=== PATIENT | male | born 1945 | race Caucasian/White ===

== ENCOUNTER 2017-01-25 21:39 | Inpatient (IN) | payer MEDICARE ==
[~2017-01-25] VITALS: Ht 185.4 cm; Wt 78.0 kg
[2017-01-25 22:05] LABS: BASO # 0.1 x10^3/uL (0.0-0.2); BASO % 1 % (0-3); EOS % 1 % (0-3); HEMATOCRIT 49.9 % (39.0-53.0); HEMOGLOBIN 17.1 g/dL (13.0-17.5); LYMPH # 6.6 x10^3/uL (1.0-4.8); LYMPH % 66 % (24-48); MEAN CORPUSCULAR HEMOGLOBIN 35 pg (25-35); MEAN CORPUSCULAR HGB CONC 34 g/dL (31-37); MEAN CORPUSCULAR VOLUME 102 fL (79-100); MONO % 10 % (0-9); NEUT % 23 % (31-73); PLATELET COUNT 157 x10^3/uL (140-400); RED BLOOD COUNT 4.89 x10^6/uL (4.30-5.70); RED CELL DISTRIBUTION WIDTH 14.7 % (11.5-14.5)
[2017-01-25 22:16] LABS: CALCIUM 9.4 mg/dL (8.5-10.1); GFR 73.7; POTASSIUM 4.4 mmol/L (3.5-5.1)
[2017-01-25 22:22] LABS: ALBUMIN 3.6 g/dL (3.4-5.0); ALBUMIN/GLOBULIN RATIO 1.1 (1.0-1.7); TOTAL BILIRUBIN 0.4 mg/dL (0.2-1.0)
[2017-01-25] MEDS ORDERED: IV NORMAL SALINE 1000ML BAG 1,000 ML IV SCH (22:30)
[2017-01-25] MEDS ORDERED: FENTANYL PF 100 MCG/2 ML VIAL. IV ONE (22:30)
[2017-01-25] MEDS ORDERED: ONDANSETRON PF 4 MG/2 ML VIAL. IV ONE (22:30)
[2017-01-25] MEDS: FENTANYL PF 100 MCG/2 ML VIAL. IV PRN (23:29)
[2017-01-25] MEDS ORDERED: CONTRAST GIVEN MC PRN (23:45)
[2017-01-26] VITALS (21 sets, daily range): BP systolic 81–136; BP diastolic 59–87
[2017-01-26] MEDS ORDERED: IOHEXOL 300 MG/ML 75 ML VIAL IV ONE
[2017-01-26] MEDS: FENTANYL PF 100 MCG/2 ML VIAL. IV PRN ×2 (00:08→00:50)
--- NOTE | 2017-01-26 00:14 | PHYS DOC ---
Past Medical History Past Medical History: Other Additional Past Medical Histor: teri Past Surgical History: No Surgical History Alcohol Use: Occasionally Drug Use: None Adult General Chief Complaint Chief Complaint: ABDOMINAL PAIN HPI HPI Patient is a 71 year old male who presents to the ED complaining of abdominal pain and vomiting which started about one hour prior to arrival. The patient was feeling well, he states he ate too much, and then developed sudden onset of severe abdominal pain with intractable vomiting. The patient has a history of Crohn's disease and believes he had similar episodes with a bowel obstruction along time ago. He states he did not have surgery for the bowel obstruction, it resolved itself. He has had surgery for abdominal wall hernias 3 but has not had bowel resection. His Crohn's disease has been well-controlled with Remicade infusions every 8 weeks. His GI doctor is Roldan Mclean at [facility]. Patient was well prior to the acute onset of his abdominal pain and vomiting. PCP none, he has always seen Dr. Mclean, but he does have an appointment with a new PCP in March. Patient states he was recently treated for pneumonia. He does smoke cigarettes. He has no history of COPD or emphysema or other lung problems. No other chronic medical problems. Review of Systems Review of Systems Constitutional: Denies fever or chills [] Eyes: Denies change in visual acuity, redness, or eye pain [] HENT: Denies nasal congestion or sore throat [] Respiratory: Denies cough or shortness of breath [] Cardiovascular: Denies chest pain GI: As in history of present illness : Denies dysuria or hematuria [] Musculoskeletal: Denies back pain or joint pain [] Integument: Denies rash or skin lesions [] Neurologic: Denies headache, focal weakness or sensory changes [] Current Medications Current Medications Current Medications Medications (Trade) Dose Ordered Sig/Ofelia Start Time Stop Time Status Last Admin Dose Admin Fentanyl Citrate (Fentanyl 2ml Vial) 100 mcg 1X ONCE 01/25/17 22:30 01/25/17 22:31 DC 01/25/17 22:12 100 MCG Info (Do NOT chart on this entry -- for MONITORING) 1 each PRN DAILY PRN 01/25/17 23:45 01/27/17 23:44 Iohexol (Omnipaque 300 Mg/ml) 75 ml 1X ONCE 01/26/17 00:00 01/26/17 00:01 DC 01/25/17 23:55 75 ML Ondansetron HCl (Zofran) 4 mg 1X ONCE 01/25/17 22:30 01/25/17 22:31 DC 01/25/17 22:12 4 MG Sodium Chloride (Iv Sodium Chloride 0.9% 1000ml Bag) 1,000 ml @ 100 mls/hr Q10H 01/25/17 22:30 01/26/17 08:29 01/25/17 22:11 100 MLS/HR Allergies Allergies Allergies Coded Allergies Type Severity Reaction Last Updated Verified No Known Drug Allergies 01/25/17 No Physical Exam Physical Exam Constitutional: Well developed, well nourished, actively vomiting, diaphoretic, not able to sit down on the cart, appears very uncomfortable, appears somewhat agitated HENT: Normocephalic, atraumatic, bilateral external ears normal, oropharynx moist, nose normal. [] Eyes: conjunctiva normal, no discharge. [] Neck: Normal range of motion, no stridor. [] Cardiovascular:Heart rate regular rhythm, no murmur [] Lungs & Thorax: Bilateral breath sounds clear to auscultation [] Abdomen: Bowel sounds quiet to absent. Mildly distended. Increased tympany especially on the left. Diffusely tender to palpation although mildly. No mass, no pulsatile mass. No bruit. Skin: Warm, dry, no erythema, no rash. [] Extremities: No tenderness, no cyanosis, no clubbing, ROM intact, no edema. [] Neurologic: Alert and oriented X 3, normal motor function, normal sensory function, no focal deficits noted. [] Current Patient Data Vital Signs Vital Signs Date Time Temp Pulse Resp B/P Pulse Ox O2 Delivery O2 Flow Rate FiO2 01/26/17 00:08 22 92 Nasal Cannula 3.5 01/25/17 22:41 124 172/100 01/25/17 21:44 97 97.0 Lab Values Laboratory Tests Test 01/25/17 21:49 White Blood Count 10.0x10^3/uL (4.0-11.0) Red Blood Count 4.89x10^6/uL (4.30-5.70) Hemoglobin 17.1g/dL (13.0-17.5) Hematocrit 49.9% (39.0-53.0) Mean Corpuscular Volume 102fL (79-100) H Mean Corpuscular Hemoglobin 35pg (25-35) Mean Corpuscular Hemoglobin Concent 34g/dL (31-37) Red Cell Distribution Width 14.7% (11.5-14.5) H Platelet Count 157x10^3/uL (140-400) Neutrophils (%) (Auto) 23% (31-73) L Lymphocytes (%) (Auto) 66% (24-48) H Monocytes (%) (Auto) 10% (0-9) H Eosinophils (%) (Auto) 1% (0-3) Basophils (%) (Auto) 1% (0-3) Neutrophils # (Auto) 2.3x10^3uL (1.8-7.7) Lymphocytes # (Auto) 6.6x10^3/uL (1.0-4.8) H Monocytes # (Auto) 1.0x10^3/uL (0.0-1.1) Eosinophils # (Auto) 0.1x10^3/uL (0.0-0.7) Basophils # (Auto) 0.1x10^3/uL (0.0-0.2) Sodium Level 145mmol/L (136-145) Potassium Level 4.4mmol/L (3.5-5.1) Chloride Level 107mmol/L (98-107) Carbon Dioxide Level 25mmol/L (21-32) Anion Gap 13 (6-14) Blood Urea Nitrogen 21mg/dL (8-26) Creatinine 1.0mg/dL (0.7-1.3) Estimated GFR (Cockcroft-Gault) 73.7 BUN/Creatinine Ratio 21 (6-20) H Glucose Level 136mg/dL (70-99) H Calcium Level 9.4mg/dL (8.5-10.1) Total Bilirubin 0.4mg/dL (0.2-1.0) Aspartate Amino Transferase (AST) 32U/L (15-37) Alanine Aminotransferase (ALT) 30U/L (16-63) Alkaline Phosphatase 73U/L (46-116) Total Protein 7.0g/dL (6.4-8.2) Albumin 3.6g/dL (3.4-5.0) Albumin/Globulin Ratio 1.1 (1.0-1.7) Lipase 154U/L (73-393) Laboratory Tests 01/25/17 21:49 Laboratory Tests 01/25/17 21:49 EKG EKG 12-lead EKG read by me. Irregular rhythm, possible multifocal atrial tachycardia. Heart rate 126. There are no acute ST or T wave changes indicative of ischemia or infarction. No STEMI. 2[] Radiology/Procedures Radiology/Procedures One view portable chest x-ray read by me. There appears to be free air under the diaphragms bilaterally. Right lung atelectasis. No acute infiltrate. No effusions. CT scan of the abdomen and pelvis with IV contrast read by the radiologist. Free air and free fluid in the abdomen and pelvis. Thickened small intestinal wall with air around some of the loops of small bowel in the mid abdomen consistent with bowel perforation. I discussed this with Dr. Felder, the radiologist. Course & Med Decision Making Course & Med Decision Making Pertinent Labs and Imaging studies reviewed. (See chart for details) 71-year-old man with a history of Crohn's disease presents with acute onset of abdominal pain and vomiting one hour prior to arrival. Patient believes his symptoms are similar to a bowel obstruction from his past experience. Patient was initially barely able to cooperate with evaluation due to his pain, discomfort, and agitation. We were able to get an IV started and he had some IV fentanyl and Zofran, which did result in him being much more comfortable and was able to tolerate CT scan. His O2 sats on room air were in the low 90s initially, after IV fentanyl went down to the upper 80s, he was placed on oxygen. I did talk to the patient about this and he does not have a diagnosis of COPD or emphysema although he has been a lifelong smoker. He also states he recently was diagnosed with pneumonia and treated for that, I believe possibly he does have some undiagnosed COPD and has a recent history of pneumonia which may explain his hypoxia. Portable chest x-ray read by me does show free air under the diaphragms, no acute cardiopulmonary findings. The patient was given a 1 L bolus IV normal saline for tachycardia, he was given IV fentanyl with good improvement of his pain. CT scan of the abdomen and pelvis with IV contrast was done as soon as the patient was able to tolerate laying still on the CT scanner. I discussed the CT scan reading with Dr. Felder, radiology. There is free air and free fluid in the abdomen and pelvis, changes of Crohn's disease in the small intestine, she believes the site of perforation is likely the small intestine, there is no obstruction or volvulus noted. I discussed the case with the patient and his . I advised them of the finding of the perforation and advised that he will need IV antibiotics and general surgery consultation. The patient's initial request was to be transferred to [facility] since his GI specialist, Dr. Roldan Mclean, is there, however I do not believe the patient is medically stable for transfer. I discussed with the patient that if we were to transfer him, there would be a delay while an accepting physician and surgeon were located, a delay for ambulance to come here and take him there, and likely a delay after arrival before he can go to the operating room. For this reason, I strongly advised against attempting to transfer the patient even though I do understand his desire for continuity of care with his GI specialist. Patient understands the circumstances and is agreeable to staying here at [place]. I discussed the case with Dr. Garcia, general surgeon taxation agent. He will come see the patient. I started some IV Zosyn. I discussed the case with Dr. Jo, [facility] medicine, who will admit the patient. I wrote bridge orders. [] Dragon Disclaimer Dragon Disclaimer This electronic medical record was generated, in whole or in part, using a voice recognition dictation system. Departure Departure Impression: Primary Impression: Perforated abdominal viscus Disposition: ADMITTED INPATIENT Admitting Physician: Other Condition: GUARDED Referrals: NO PCP (PCP) MIKAYLA DC MD Jan 26, 2017 00:14
--- NOTE | 2017-01-26 00:35 | RAD ---
CT abdomen and pelvis with contrast: Reason for examination: Abdominal pain with vomiting. History of Crohn's disease. Helical images were obtained through the abdomen and pelvis with intravenous administration of 75 cc Omnipaque 300. Reconstruction was performed in sagittal and coronal planes. The lung bases are clear. The heart size is normal with no pericardial effusion evident. There does appear to be free air present in the abdomen. There is also some free fluid present around the liver, in the right caudally bladder and in the pelvis. Liver shows no focal abnormalities. No abnormalities seen in the gallbladder, pancreas, spleen or adrenal glands. The abdominal aorta and inferior vena cava show no acute abnormalities but there is arteriosclerotic vascular calcification present. The kidneys show a small hypodense lesion posteriorly at the midpole. There is some perinephric fluid suggested bilaterally. No hydronephrosis or renal calculi are identified. The intestinal tract shows no abnormally dilated bowel. There is no evidence of diverticulosis or diverticulitis. There is free air adjacent to loops of small bowel in the mid abdomen. There also appears to be some thickening of the small intestinal wall which may reflect changes of Crohn's disease. No abnormalities seen in the bladder. Prostate gland shows calcifications. Seminal vesicles are symmetric. There are some degenerative changes in the spine which are most prominent at the L5-S1 disc level. No acute bony abnormalities are seen. Impression: Free air and free fluid in the abdomen and pelvis. Thickened small intestinal wall which may reflect changes of Crohn's disease. Air around some of the loops of small bowel in the mid abdomen consistent with bowel perforation. Exposure: One or more of the following individualized dose reduction techniques were used for this examination: 1. Automated exposure control. 2. Adjustment of the mA and/or kV according to patient size. 3. Use of iterative reconstruction technique. Electronically signed by: Amna Felder MD (Jan 26, 2017 00:33:43)
[2017-01-26] MEDS ORDERED: IV NORMAL SALINE 1000ML BAG 1,000 ML IV ONE (01:00)
[2017-01-26] MEDS ORDERED: PIPERACILLIN/TAZOBACTAM 3.375 GM in IV NORMAL SALINE 50ML 50 ML IV ONE ×2 (01:00→02:00)
--- NOTE | 2017-01-26 01:08 | ACF ---
Admit Criteria Forms Admit Criteria Forms Admit Criteria Forms ABDOMINAL PAIN Clinical Indications for Admission to Inpatient Care (Place 'X' for any and all applicable criteria): Admission is indicated for ANY ONE of the following(1)(2)(3)(4)(5): [X]I. Inpatient admission required rather than observation care (Also use Abdominal Pain: Observation Care, as appropriate) because of ANY ONE of the following: [ ]a) Severe pain requiring acute inpatient management [X]b) Identification of etiology/finding that requires inpatient care (eg, aortic dissection, free air) [ ]c) Absent bowel sounds with complete ileus(6) [ ]d) Suspected toxic megacolon [ ]e) Severe electrolyte abnormalities requiring inpatient care [ ]f) High fever or infection requiring inpatient admission as indicated by ANY ONE of following(7)(8): [ ] i) Appropriate outpatient or observational care antimicrobial treatment unavailable, not effective, or not feasible [ ] ii) Documented bacteremia [ ] iii) Temperature > 104.9 degrees F (oral) [ ] iv) T >103.1 F (oral) or < 96.8 F(rectal) that does not respond to all emergency treatment measures [ ]g) Signs of intestinal obstruction [B] [ ]h) Hemodynamic instability [ ]i) IV fluid to replace significant ongoing losses (greater than 3 L/m2 per day) (12)(13) [ ]j) Percutaneous or open drainage (eg, abscess, biliary tract ) procedures [ ]k) Parenteral nutrition regimen that must be implemented on inpatient basis [ ]l) Other condition,treatment or monitoring requiring inpatient admission. [ ]II. Peritoneal signs present [ ]III. Surgery needed that cannot be performed on an ambulatory basis. [ ]IV. Evaluation requires patient to not eat or drink for extended period ( eg, more than 24 hours). [ ]V. Contraindications and/or Inappropriate clinical situations for Observational Care in patients with abdominal pain, when ANY ONE of the following is required: [ ]a) Thorough evaluation is required to prevent catastrophic events due to delays in diagnosing (e.g.Mesenteric ischemia) 1,3 [ ]b) Patient with severe pathology or with chronic symptoms unlikely to improve in the ED stay (3) [ ]. General contraindications and/or Inappropriate clinical situations for Observational Care in patients with abdominal pain, when ANY ONE of the following is required: [ ]a) Prediction of prolongation of LOS based on ANY ONE of the following may be considered as a contraindication for observational care 2, 3, 4, 5, 6, 7, 8, 9, 10, 11 [ ]i) Age > 65 yrs. [ ]ii) Patient arriving by ambulance [ ]iii) Patient with high acuity [ ]iv) Patient requiring vital sign monitoring [ ]v) Patient on IV medication [ ]b) Systolic blood pressures 180mmHg 3,12 [ ]c) Patient with altered mental status including delirium and other alteration of consciousness, (3) [ ]d) Patient whose discharge disposition will be to a prison home or rehabilitation home should not be managed in Emergency Department Observation Unit. CMS rule requires 3 days hospital stay before such placement.3,13 [ ]e) Patient with failure to thrive due to broad array of etiologies 3,16,17 [ ]f) Inability to ambulate 3,14 Extended stay beyond goal length of stay may be needed for(2)(3): [ ]a) Persistent abdominal pain with suspected intra-abdominal process [ ]b) Diagnosed condition requiring continued stay (e.g., pancreatitis, complicated diverticulitis) [ ]c) Surgery (e.g., colectomy) The original [employer] content created by [employer] has been revised. The portions of the content which have been revised are identified through the use of italic text or in bold, and [facility] has neither reviewed nor approved the modified material.All other unmodified content is copyright [employer]. Please see references footnoted in the original [employer] edition 2016 VIOLETTA ALLEN Jan 26, 2017 01:08
[2017-01-26] MEDS ORDERED: HYDROMORPHONE 2 MG/ML VIAL. IV ONE ×2 (01:30→02:00)
[2017-01-26] MEDS ORDERED: ONDANSETRON PF 4 MG/2 ML VIAL. ONE (02:00)
[2017-01-26] MEDS ORDERED: PROPOFOL 20 ML IV ONE (02:00)
[2017-01-26] MEDS ORDERED: FENTANYL PF 100 MCG/2 ML VIAL. ONE ×2 (02:00→05:09)
[2017-01-26] MEDS ORDERED: LIDOCAINE 2% 100 MG/5 ML DISP.SYRIN. ONE (02:00)
[2017-01-26] MEDS ORDERED: SUCCINYLCHOLINE 200 MG/10 ML VIAL. ONE (02:00)
[2017-01-26] MEDS ORDERED: DEXAMETHASONE SOD PHOS 20 MG/5 ML VIAL. ONE (02:00)
[2017-01-26] MEDS ORDERED: ROCURONIUM 50 MG/5 ML VIAL. ONE ×2 (02:00→03:36)
[2017-01-26] MEDS ORDERED: IV RINGERS,LACTATED 1000ML 1,000 ML IV SCH (02:09)
[2017-01-26] MEDS ORDERED: LIDOCAINE 1% 1 ML SYRINGE. ID PRN (02:15)
[2017-01-26] MEDS ORDERED: MORPHINE SULFATE 2 MG/ML DISP.SYRIN. IV PRN (02:15)
[2017-01-26] MEDS ORDERED: PROCHLORPERAZINE 10 MG/2 ML VIAL. IV PRN (02:15)
[2017-01-26] MEDS ORDERED: ONDANSETRON PF 4 MG/2 ML VIAL. IV PRN ×2 (02:15→05:45)
[2017-01-26] MEDS ORDERED: FENTANYL PF 100 MCG/2 ML VIAL. IV PRN ×2 (02:15)
[2017-01-26] MEDS ORDERED: HYDROCORTISONE SOD SUCC/PF 100 MG/2 ML VIAL. ONE (02:24)
[2017-01-26] MEDS ORDERED: BACITRACIN 50,000 UNIT in IV NORMAL SALINE 500ML BAG 500 ML IRR ONE (03:00)
[2017-01-26] MEDS ORDERED: SEVOFLURANE > 120 MINUTES. IH ONE ×2 (03:16→04:23)
[2017-01-26] MEDS ORDERED: PHENYLEPHRINE in 0.9% NACL PF 1 MG/10 ML DISP.SYRIN. IV ONE (03:17)
[2017-01-26] MEDS ORDERED: PHENYLEPHRINE 10 MG/ML VIAL. ONE (03:32)
[2017-01-26] MEDS ORDERED: SURGICEL HEMOSTAT 4X8 EACH. ONE (03:38)
[2017-01-26] MEDS ORDERED: GLYCOPYRROLATE 1 MG/5 ML VIAL. ONE (04:23)
[2017-01-26] MEDS ORDERED: NEOSTIGMINE METHYLSULFATE 5 MG/5 ML SYRINGE. ONE (04:23)
[2017-01-26] MEDS ORDERED: ESMOLOL 100 MG/10 ML VIAL. IV ONE (04:28)
[2017-01-26] MEDS: HYDROMORPHONE 2 MG/ML VIAL. IV PRN ×3 (05:38→06:29)
--- NOTE | 2017-01-26 05:42 | PDOC ---
BRIEF OPERATIVE NOTE Date: Jan 26, 2017 Pre-Op Diagnosis perforated viscous Post-Op Diagnosis same 2/2 perforated splenic flexure of colon Procedure Performed Dx l/s, laparotomy with splenic resection, end colostomy, Evans's pouch Surgeon Jose Mid Level Java Developer Siomara HERMANA Anesthesia Type: General Blood Loss 100cc IV Fluid 3400cc Urine Output 400cc Specimens Obtained sigmoid colon Findings large perforation of splenic flexure with fecal/vegetable matter soilage of the abdomen Complications none RON GROSS MD Jan 26, 2017 05:42
[2017-01-26] MEDS ORDERED: PHENOL ORAL SPRAY 177ML BOTTLE. PO PRN (05:45)
[2017-01-26] MEDS ORDERED: 0.9 % SODIUM CHLORIDE 10 ML DISP.SYRIN. IV PRN (05:45)
[2017-01-26] MEDS ORDERED: BENZOCAINE/MENTHOL LOZENGE. PO PRN (05:45)
[2017-01-26] MEDS: POTASSIUM CL 20MEQ-0.45% NACL 1,000 ML IV SCH ×2 (05:58→21:24)
--- NOTE | 2017-01-26 06:12 | EKG ---
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
[2017-01-26] MEDS: HYDROMORPHONE STANDARD PCA 30 ML IV PRN (07:01)
[2017-01-26] MEDS ORDERED: INFL100V IV (07:11)
--- NOTE | 2017-01-26 07:11 | RAD ---
Portable abdomen, 01/26/2017: History: Postop evaluation The lower pelvis was not completely included on this exam. An NG tube has its tip overlying the distal aspect of the stomach. Surgical skin clips overlie the abdomen and pelvis near the midline. There are tubes overlying the pelvis and left flank region compatible surgical drains. The abdominal gas pattern is unremarkable. Aortoiliac calcific plaquing is present. Contrast is present in the urinary tract from a recent CT study. There is no evidence of a retained surgical instrument, needle or radiopaque sponge on this single view.
--- NOTE | 2017-01-26 07:43 | PDOC ---
Infectious Disease Note Vital Sign Vital Signs Vital Signs Date Time Temp Pulse Resp B/P Pulse Ox O2 Delivery O2 Flow Rate FiO2 01/26/17 07:01 20 96 Nasal Cannula 4.0 01/26/17 06:08 126 127/87 01/26/17 05:35 96.9 96.9 Labs Lab Laboratory Tests Test 01/25/17 21:49 White Blood Count 10.0x10^3/uL (4.0-11.0) Red Blood Count 4.89x10^6/uL (4.30-5.70) Hemoglobin 17.1g/dL (13.0-17.5) Hematocrit 49.9% (39.0-53.0) Mean Corpuscular Volume 102fL (79-100) Mean Corpuscular Hemoglobin 35pg (25-35) Mean Corpuscular Hemoglobin Concent 34g/dL (31-37) Red Cell Distribution Width 14.7% (11.5-14.5) Platelet Count 157x10^3/uL (140-400) Neutrophils (%) (Auto) 23% (31-73) Lymphocytes (%) (Auto) 66% (24-48) Monocytes (%) (Auto) 10% (0-9) Eosinophils (%) (Auto) 1% (0-3) Basophils (%) (Auto) 1% (0-3) Neutrophils # (Auto) 2.3x10^3uL (1.8-7.7) Lymphocytes # (Auto) 6.6x10^3/uL (1.0-4.8) Monocytes # (Auto) 1.0x10^3/uL (0.0-1.1) Eosinophils # (Auto) 0.1x10^3/uL (0.0-0.7) Basophils # (Auto) 0.1x10^3/uL (0.0-0.2) Sodium Level 145mmol/L (136-145) Potassium Level 4.4mmol/L (3.5-5.1) Chloride Level 107mmol/L (98-107) Carbon Dioxide Level 25mmol/L (21-32) Anion Gap 13 (6-14) Blood Urea Nitrogen 21mg/dL (8-26) Creatinine 1.0mg/dL (0.7-1.3) Estimated GFR (Cockcroft-Gault) 73.7 BUN/Creatinine Ratio 21 (6-20) Glucose Level 136mg/dL (70-99) Calcium Level 9.4mg/dL (8.5-10.1) Total Bilirubin 0.4mg/dL (0.2-1.0) Aspartate Amino Transf (AST/SGOT) 32U/L (15-37) Alanine Aminotransferase (ALT/SGPT) 30U/L (16-63) Alkaline Phosphatase 73U/L (46-116) Total Protein 7.0g/dL (6.4-8.2) Albumin 3.6g/dL (3.4-5.0) Albumin/Globulin Ratio 1.1 (1.0-1.7) Lipase 154U/L (73-393) Objective Assessment Perforated colon s/p surgery Peritonitis Sepsis with hypotension Crohns disease on remicaid Recent pneumonia smoker Plan Plan of Care d/c flagyl zosyn and vanc supportive care pt/ot KELSIE CANTU MD Jan 26, 2017 07:43
[2017-01-26] MEDS ORDERED: VANCOMYCIN 2 GM in IV NORMAL SALINE 500ML BAG 500 ML IV ONE (08:00)
--- NOTE | 2017-01-26 08:38 | RAD ---
Portable chest, 01/25/2017: History: Hypoxia, abdominal pain The heart is within normal limits in size. There is calcific plaquing of the aorta. The pulmonary vascularity is normal. There is mild linear scarring or atelectasis in both lung bases. There is no evidence of pleural fluid. Free air is present in the abdomen beneath the right hemidiaphragm, as also noted on the current CT study. IMPRESSION: 1. Mild bibasilar linear atelectasis and/or scarring. 2. Pneumoperitoneum
--- NOTE | 2017-01-26 08:49 | PDOC1 ---
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 Rest of hx limited (pt on ELECTRODE CLEANER pump, few hrs post ex- lap). Went to ER, at ER CT scan showed Free air and free fluid in the abdomen and pelvis. Thickened small intestinal wall which may reflect changes of Crohn's disease. Air around some of the loops of small bowel in the mid abdomen consistent with bowel perforation. Pt undwerwent Emergent ex lap with GS this early AM, findings: perforated viscous Post-Op Diagnosis same 2/2 perforated splenic flexure of colon Procedure Performed Dx l/s, laparotomy with splenic resection, end colostomy, Evans's pouch Pt on ELECTRODE CLEANER, NGT, denies hhx diverticulitis he knows of, has had 2 prior Cscopes was told "unremarkable". 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 OR note indicates feces in the peritoneum Past Medical History Cardiovascular: No pertinent hx Pulmonary: No pertinent hx GI: No pertinent hx Heme/Onc: No pertinent hx Hepatobiliary: No pertinent hx Psych: No pertinent hx Rheumatologic: No pertinent hx Infectious disease: No pertinent hx ENT: No pertinent hx Renal/: No pertinent hx Endocrine: No pertinent hx Dermatology: No pertinent hx Past Surgical History Past Surgical History: No pertinent history Family History Family History: No Significant Social History Smoke: No ALCOHOL: none Drugs: None Current Problem List Problem List Problems Medical Problems: (1) Perforated abdominal viscus Status: Acute Problems: Current Medications Current Medications Current Medications Sodium Chloride (Iv Sodium Chloride 0.9% 1000ml Bag) 1,000 ml @ 100 mls/hr Q10H IV Last administered on 01/25/17 22:11; Start 01/25/17 at 22:30; Stop at 08:29; Status DC Ondansetron HCl (Zofran) 4 mg 1X ONCE IV Last administered on 01/25/17 22:12 ; Start 01/25/17 at 22:30; Stop 01/25/17 at 22:31; Status DC Fentanyl Citrate (Fentanyl 2ml Vial) 75 mcg PRN Q15MIN PRN IV PAIN GREATER THAN 3/10 Last administered on 01/26/17 00:50; Start 01/25/17 at 22:00; Stop at 21:59 Fentanyl Citrate (Fentanyl 2ml Vial) 100 mcg 1X ONCE IV Last administered on 22:12; Start 01/25/17 at 22:30; Stop 01/25/17 at 22:31; Status DC Iohexol (Omnipaque 300 Mg/ml) 75 ml 1X ONCE IV Last administered on 01/25/17 23:55; Start 01/26/17 at 00:00; Stop 01/26/17 at 00:01; Status DC Info 1 each 1 each PRN DAILY PRN MC SEE COMMENTS; Start 01/25/17 at 23:45; Stop 01/27/17 at 23:44 Piperacillin Sod/ Tazobactam Sod 3.375 gm/Sodium Chloride 50 ml @ 100 mls/hr 1X ONCE IV Last administered on 01/26/17 00:56; Start 01/26/17 at 01:00; Stop 01/26/17 at 01:29; Status DC Sodium Chloride (Iv Sodium Chloride 0.9% 1000ml Bag) 1,000 ml @ 100 mls/hr 1X ONCE IV Last administered on 01/26/17 00:53; Start 01/26/17 at 01:00; Stop at 10:59 Hydromorphone HCl (Dilaudid) 1 mg 1X ONCE IV Last administered on 01/26/17 01 :33; Start 01/26/17 at 01:30; Stop 01/26/17 at 01:34; Status DC Hydromorphone HCl 1 mg 1 mg 1X ONCE IV ; Start 01/26/17 at 02:00; Stop at 02:01; Status DC Piperacillin Sod/ Tazobactam Sod/ Sodium Chloride (Zosyn/Iv Sodium Chloride 0.9 % 50ml) 50 ml @ 100 mls/hr 1X ONCE IV Last administered on 01/26/17 02:43; Start 01/26/17 at 02:00; Stop 01/26/17 at 02:29; Status DC Dexamethasone Sodium Phosphate (Decadron) 20 mg STK-MED ONCE .ROUTE ; Start at 02:00; Stop 01/26/17 at 02:01; Status DC Ondansetron HCl 4 mg 4 mg STK-MED ONCE .ROUTE ; Start 01/26/17 at 02:00; Stop at 02:01; Status DC Propofol (Diprivan) 20 ml @ As Directed STK-MED ONCE IV ; Start 01/26/17 at 02: 00; Stop 01/26/17 at 02:01; Status DC Lidocaine HCl 100 mg STK-MED ONCE .ROUTE ; Start 01/26/17 at 02:00; Stop at 02:01; Status DC Fentanyl Citrate (Fentanyl 2ml Vial) 100 mcg STK-MED ONCE .ROUTE ; Start at 02:00; Stop 01/26/17 at 02:01; Status DC Succinylcholine Chloride (Anectine) 200 mg STK-MED ONCE .ROUTE ; Start 01/26/17 at 02:00; Stop 01/26/17 at 02:01; Status DC Rocuronium [place] (Zemuron) 50 mg STK-MED ONCE .ROUTE ; Start 01/26/17 at 02:00 ; Stop 01/26/17 at 02:01; Status DC Ondansetron HCl (Zofran) 4 mg PRN Q6HRS PRN IV Nausea; Start 01/26/17 at 02:15 ; Stop 01/27/17 at 02:14 Fentanyl Citrate (Fentanyl 2ml Vial) 25 mcg PRN Q5MIN PRN IV MILD PAIN; Start 01/26/17 at 02:15; Stop 01/27/17 at 02:14 Fentanyl Citrate (Fentanyl 2ml Vial) 50 mcg PRN Q5MIN PRN IV MODERATE PAIN; Start 01/26/17 at 02:15; Stop 01/27/17 at 02:14 Morphine Sulfate 1 mg 1 mg PRN Q10MIN PRN IV SEVERE PAIN; Start 01/26/17 at 02: 15; Stop 01/27/17 at 02:14 Lactated Ringer's (Iv Lactated Ringers) 1,000 ml @ 30 mls/hr Q24H IV ; Start at 02:09; Stop 01/26/17 at 14:08 Lidocaine HCl 2 ml 1X PRN PRN ID IV START; Start 01/26/17 at 02:15; Stop at 02:14 Hydromorphone HCl (Dilaudid) 0.5 mg PRN Q10MIN PRN IV SEV PAIN,Second choice Last administered on 01/26/17 06:29; Start 01/26/17 at 02:15; Stop 01/27/17 at 02:14 Prochlorperazine Edisylate 5 mg 5 mg PACU PRN PRN IV NAUSEA; Start 01/26/17 at 02:15; Stop 01/27/17 at 02:14 Bacitracin/Sodium Chloride (Iv Sodium Chloride 0.9% 500ml Bag) 500 ml @ 500 mls /hr 1X PERIOP ONCE IRR ; Start 01/26/17 at 03:00; Stop 01/26/17 at 03:59; Status DC Hydrocortisone Sodium Succinate (Solu-Cortef) 100 mg STK-MED ONCE .ROUTE ; Start 01/26/17 at 02:24; Stop 01/26/17 at 02:25; Status DC Sevoflurane (Ultane) 90 ml STK-MED ONCE IH ; Start 01/26/17 at 03:16; Stop 01/26 at 03:17; Status DC Phenylephrine HCl 1 mg STK-MED ONCE IV ; Start 01/26/17 at 03:17; Stop 01/26/17 at 03:18; Status DC Phenylephrine HCl (Bhargav-Synephrine Inj) 10 mg STK-MED ONCE .ROUTE ; Start at 03:32; Stop 01/26/17 at 03:33; Status DC Rocuronium [place] (Zemuron) 50 mg STK-MED ONCE .ROUTE ; Start 01/26/17 at 03:36 ; Stop 01/26/17 at 03:37; Status DC Cellulose 1 each STK-MED ONCE .ROUTE Last administered on 01/26/17t 02:47; Start 01/26/17 at 03:38; Stop 01/26/17 at 03:39; Status DC Glycopyrrolate (Robinul) 1 mg STK-MED ONCE .ROUTE ; Start 01/26/17 at 04:23; Stop 01/26/17 at 04:24; Status DC Neostigmine Methylsulfate 5 mg STK-MED ONCE .ROUTE ; Start 01/26/17 at 04:23; Stop 01/26/17 at 04:24; Status DC Sevoflurane (Ultane) 90 ml STK-MED ONCE IH ; Start 01/26/17 at 04:23; Stop 01/26 at 04:24; Status DC Esmolol HCl (Brevibloc) 100 mg STK-MED ONCE IV ; Start 01/26/17 at 04:28; Stop 01/26/17 at 04:29; Status DC Fentanyl Citrate 100 mcg 100 mcg STK-MED ONCE .ROUTE ; Start 01/26/17 at 05:09; Stop 01/26/17 at 05:10; Status DC Metronidazole (FLAGYL 500Mmg PREMIX) 100 ml @ 100 mls/hr Q12HR IV ; Start 01/26 at 09:00; Stop 01/26/17 at 09:00; Status DC Diphenhydramine HCl (Benadryl) 25 mg PRN Q6HRS PRN IV ITCHING; Start 01/26/17 at 05:45 Famotidine (Pepcid) 20 mg BID IVP ; Start 01/26/17 at 09:00 Enoxaparin Sodium (Lovenox 40mg Syringe) 40 mg Q24H SQ ; Start 01/26/17 at 09:00 Sodium Chloride 3 ml 3 ml QSHIFT PRN IV AFTER MEDS AND BLOOD DRAWS; Start 01/26 at 05:45 Potassium Chloride/Sodium Chloride 1,000 ml @ 100 mls/hr Q10H IV Last administered on 01/26/17 05:58; Start 01/26/17 at 06:00 Hydromorphone HCl (Dilaudid Standard ELECTRODE CLEANER) 30 ml @ 0 mls/hr CONT PRN PRN IV PROTOCOL Last administered on 01/26/17 07:01; Start 01/26/17 at 05:45 Hydromorphone HCl (Dilaudid) 1 mg PRN Q1HR PRN IV MODERATE PAIN; Start at 05:45 Ondansetron HCl (Zofran) 4 mg PRN Q6HRS PRN IV NAUESA, 1ST CHOICE; Start at 05:45 Throat Lozenges (Chloraseptic) 1 spray PRN Q2HR PRN PO SORE THROAT; Start 01/26 at 05:45 Throat Lozenges (Cepacol Sore Throat Lozenge) 1 west PRN Q2HRS PRN PO SORE THROAT; Start 01/26/17 at 05:45 Nicotine 1 patch 1 patch DAILY TD ; Start 01/26/17 at 09:00 Piperacillin Sod/ Tazobactam Sod/ Sodium Chloride (Zosyn/Iv Sodium Chloride 0.9 % 50ml) 50 ml @ 100 mls/hr Q6HRS IV ; Start 01/26/17 at 08:00 Vancomycin HCl 1 each 1 each PRN DAILY PRN MC SEE COMMENTS; Start 01/26/17 at 07:45 Vancomycin HCl/ Sodium Chloride (Iv Sodium Chloride 0.9% 500ml Bag) 500 ml @ 250 mls/hr 1X ONCE IV ; Start 01/26/17 at 08:00; Stop 01/26/17 at 09:59 Active Scripts Active Reported Remicade (Infliximab) 100 Mg Vial 100 Mg IV Q8HRS Allergies Allergies: Coded Allergies: No Known Drug Allergies (Unverified , 01/25/17) ROS General: No: Appetite, Chills, Fatigue, Malaise, Night Sweats, Other PSYCHOLOGICAL ROS: No: Anxiety, Behavioral Disorder, Concentration difficultie , Decreased libido, Depression, Disorientation, Hallucinations, Hostility, Irritablity, Memory difficulties, Mood Swings, Obsessive thoughts, Other, Physical abuse, Sexual abuse, Sleep disturbances, Suicidal ideation Eyes: No Blurry vision, No Decreased vision, No Double vision, No Dry eyes, No Excessive tearing, No Eye Pain, No Itchy Eyes, No Loss of vision, No Other, No Photophobia, No Scotomata, No Uses contacts, No Uses glasses HEENT: YES: Other (dry mouth), No: Epistaxis, Heacaches, Hearing change, Nasal congestion, Nasal discharge, Oral lesions, Sinus pain, Sneezing, Snoring, Sore Throat, Tinnitus, Vertigo, Visual Changes, Vocal changes ALLERGY AND IMMUNOLOGY: No: Hives, Insect Bite Sensitivity, Itchy/Watery Eyes, Nasal Congestion, Other, Post Nasal Drip, Seasonal Allergies Hematological and Lymphatic: No: Bleeding Problems, Blood Clots, Blood Transfusions, Brusing, Night Sweats, Other, Pallor, Swollen Lymph Nodes ENDOCRINE: No: Breast Changes, Galactorrhea, Hair Pattern Changes, Hot Flashes , Malaise/lethargy, Mood Swings, Other, Palpitations, Polydipsia/polyuria, Skin Changes, Temperature Intolerance, Unexpected Weight Changes Breast: No New/Changing Breast Lumps, No Nipple changes, No Nipple discharge, No Other Cardiovascular: No Chest Pain, No Edema, No Lt Headedness, No Orthopnea, No Other, No Palpitations, No Paroxysmal Noc. Dyspnea Gastrointestinal: Yes Other (sore) Neurological: No Behavorial Changes, No Bowel/Bladder ControlChng, No Confusion , No Dizziness, No Gait Disturbance, No Headaches, No Impaired Coord/balance, No Memory Loss, No Numbness/Tingling, No Other, No Seizures, No Speech Problems , No Tremors, No Visual Changes, No Weakness Skin: No Acne, No Dry Skin, No Eczema, No Hair Changes, No Lumps, No Mole Changes, No Mottling, No Nail Changes, No Other, No Pruritus, No Rash, No Skin Lesion Changes Physical Exam General: Alert, Oriented X3, Cooperative, No acute distress, Other (sore abd area - post op) HEENT: Atraumatic Lungs: Clear to auscultation, Normal air movement Heart: S1S2, no gallops Cardiovascular: S1 Breasts: Normal, Abnormal mass palpable Abdomen: Soft, Other (vertical mkidlijne incision with dry dressing, colostomy bag on left, 2 indwelling LASHAUN drains) Extremities: No clubbing, No cyanosis, No edema, Normal pulses, No tenderness/ swelling Skin: No rashes, No breakdown, No significant lesion Neuro: Normal gait, Normal speech, Strength at 5/5 X4 ext, Normal tone, Sensation intact, Cranial nerves 3-12 NL, Reflexes 2+ Psych/Mental Status: Mental status NL, Mood NL Vitals Vitals Vital Signs Date Time Temp Pulse Resp B/P Pulse Ox O2 Delivery O2 Flow Rate FiO2 01/26/17 07:01 20 96 Nasal Cannula 4.0 01/26/17 07:00 119 105/75 01/26/17 05:35 96.9 96.9 Labs Labs Laboratory Tests Test 01/25/17 21:49 White Blood Count 10.0x10^3/uL (4.0-11.0) Red Blood Count 4.89x10^6/uL (4.30-5.70) Hemoglobin 17.1g/dL (13.0-17.5) Hematocrit 49.9% (39.0-53.0) Mean Corpuscular Volume 102fL (79-100) Mean Corpuscular Hemoglobin 35pg (25-35) Mean Corpuscular Hemoglobin Concent 34g/dL (31-37) Red Cell Distribution Width 14.7% (11.5-14.5) Platelet Count 157x10^3/uL (140-400) Neutrophils (%) (Auto) 23% (31-73) Lymphocytes (%) (Auto) 66% (24-48) Monocytes (%) (Auto) 10% (0-9) Eosinophils (%) (Auto) 1% (0-3) Basophils (%) (Auto) 1% (0-3) Neutrophils # (Auto) 2.3x10^3uL (1.8-7.7) Lymphocytes # (Auto) 6.6x10^3/uL (1.0-4.8) Monocytes # (Auto) 1.0x10^3/uL (0.0-1.1) Eosinophils # (Auto) 0.1x10^3/uL (0.0-0.7) Basophils # (Auto) 0.1x10^3/uL (0.0-0.2) Sodium Level 145mmol/L (136-145) Potassium Level 4.4mmol/L (3.5-5.1) Chloride Level 107mmol/L (98-107) Carbon Dioxide Level 25mmol/L (21-32) Anion Gap 13 (6-14) Blood Urea Nitrogen 21mg/dL (8-26) Creatinine 1.0mg/dL (0.7-1.3) Estimated GFR (Cockcroft-Gault) 73.7 BUN/Creatinine Ratio 21 (6-20) Glucose Level 136mg/dL (70-99) Calcium Level 9.4mg/dL (8.5-10.1) Total Bilirubin 0.4mg/dL (0.2-1.0) Aspartate Amino Transf (AST/SGOT) 32U/L (15-37) Alanine Aminotransferase (ALT/SGPT) 30U/L (16-63) Alkaline Phosphatase 73U/L (46-116) Total Protein 7.0g/dL (6.4-8.2) Albumin 3.6g/dL (3.4-5.0) Albumin/Globulin Ratio 1.1 (1.0-1.7) Lipase 154U/L (73-393) Laboratory Tests Test 01/25/17 21:49 White Blood Count 10.0x10^3/uL (4.0-11.0) Red Blood Count 4.89x10^6/uL (4.30-5.70) Hemoglobin 17.1g/dL (13.0-17.5) Hematocrit 49.9% (39.0-53.0) Mean Corpuscular Volume 102fL (79-100) Mean Corpuscular Hemoglobin 35pg (25-35) Mean Corpuscular Hemoglobin Concent 34g/dL (31-37) Red Cell Distribution Width 14.7% (11.5-14.5) Platelet Count 157x10^3/uL (140-400) Neutrophils (%) (Auto) 23% (31-73) Lymphocytes (%) (Auto) 66% (24-48) Monocytes (%) (Auto) 10% (0-9) Eosinophils (%) (Auto) 1% (0-3) Basophils (%) (Auto) 1% (0-3) Neutrophils # (Auto) 2.3x10^3uL (1.8-7.7) Lymphocytes # (Auto) 6.6x10^3/uL (1.0-4.8) Monocytes # (Auto) 1.0x10^3/uL (0.0-1.1) Eosinophils # (Auto) 0.1x10^3/uL (0.0-0.7) Basophils # (Auto) 0.1x10^3/uL (0.0-0.2) Sodium Level 145mmol/L (136-145) Potassium Level 4.4mmol/L (3.5-5.1) Chloride Level 107mmol/L (98-107) Carbon Dioxide Level 25mmol/L (21-32) Anion Gap 13 (6-14) Blood Urea Nitrogen 21mg/dL (8-26) Creatinine 1.0mg/dL (0.7-1.3) Estimated GFR (Cockcroft-Gault) 73.7 BUN/Creatinine Ratio 21 (6-20) Glucose Level 136mg/dL (70-99) Calcium Level 9.4mg/dL (8.5-10.1) Total Bilirubin 0.4mg/dL (0.2-1.0) Aspartate Amino Transf (AST/SGOT) 32U/L (15-37) Alanine Aminotransferase (ALT/SGPT) 30U/L (16-63) Alkaline Phosphatase 73U/L (46-116) Total Protein 7.0g/dL (6.4-8.2) Albumin 3.6g/dL (3.4-5.0) Albumin/Globulin Ratio 1.1 (1.0-1.7) Lipase 154U/L (73-393) VTE Prophylaxis Ordered VTE Prophylaxis Devices: Yes VTE Pharmacological Prophylaxi: Yes Assessment/Plan Assessment/Plan perforated viscous perforated splenic flexure of colon s/p Dx l/s, laparotomy with splenic resection, end colostomy, Evans's pouch Acute anemia of blood loss Acute pain post op needing ELECTRODE CLEANER PLAN: COnt ELECTRODE CLEANER Routine post op care Labs in AM ICe chips ok MAintain NPO and NGT Dw pt and CLINICAL RESEARCH DIRECTOR SILAS [place] MD Jan 26, 2017 08:49
--- NOTE | 2017-01-26 08:59 | OP ---
DATE OF SURGERY: 01/26/2017 PREOPERATIVE DIAGNOSIS: Perforated viscus. POSTOPERATIVE DIAGNOSES: Perforated viscus, secondary to splenic flexure of the colon perforation. PROCEDURE: 1. Diagnostic laparoscopy. 2. Laparotomy with resection splenic flexure with end colostomy Evans's pouch. SURGEON: Orion Gross MD NETWORK SECURITY ARCHITECT: FADI Burkett ANESTHESIA: General endotracheal. BLOOD LOSS: 100 mL. INTRAVENOUS FLUIDS: 3400. URINE OUTPUT: 400. INDICATIONS: The patient is a 71-year-old, with acute onset of severe abdominal pain earlier this evening. CT scan showed free air and fluid. He has a history Crohn's disease. He is brought for exploration. OPERATIVE FINDINGS: There was gross contamination of the entire abdomen with stool and vegetable matter (____). There was a large rent in the distal transverse colon/splenic flexure. The stomach, small bowel, and remainder of the colon were without definite pathology. There was some mild wall thickening of the distal ileum without significant creeping fat. Appendix was unremarkable. DESCRIPTION OF PROCEDURE: The patient was brought to the operating suite, given a general endotracheal anesthetic, Wagner catheter placement and drainage, and the abdomen prepped and draped in the usual sterile fashion. A 5-mm incision was made above the umbilicus and a 5-mm Visiport was used to gain access into the abdominal cavity. Pneumoperitoneum established. Camera inserted. We really saw significant gross contamination of the abdominal cavity. This included vegetable matter and stool. In light of this, we proceeded with a laparotomy. Midline incision was made. Abdomen was carefully entered and explored with results as noted above. With the Omni self-retaining retractor for exposure, we ran the small bowel from the ligament of Treitz to the ileocecal valve with no evidence of perforation. The ascending and transverse colon were inspected as were the ascending and sigmoid colon. There was some induration near the splenic flexure; so the left colon was mobilized to the midline by taking down the white line of Toldt avoiding the left ureter and left kidney. The gastrocolic omentum was divided and the distal transverse colon was reflected inferiorly off the spleen. This exposed a large rent in the colon as the source of contamination. The bowel proximal to the process that appeared viable was skeletonized and divided with the CASSANDRA stapler. Similarly, the bowel distal to the process which appeared viable was closed with a contour stapler and the ends marked with long Prolene sutures for future reference. The involved segment was then transected by serially clamping, dividing, and ligating the mesocolon with Vicryl ties. The abdomen was copiously irrigated with 5 liters of normal saline and foreign body material removed. Abdomen checked for adequate hemostasis, and when present and a correct sponge count was obtained, an Aamir 1-cm Davol sump drain was brought through a left lower quadrant stab wound, laid in the left pericolic gutter up to the spleen, secured with silk sutures. A 19-Telugu round Luis Eduardo drain was brought through a right lower quadrant stab wound, left in the true pelvis, secured with a silk stitch. The distal end of the transverse colon was brought out through the left upper quadrant of the abdominal wall for an end colostomy. This was tacked at 12, 3, 6 and 9 to the anterior sheath fascia with 3-0 chromic. When a second sponge count was correct and another check for hemostasis was done, the abdomen was closed in a single layer using looped 0 PDS in running fashion tied in the middle. Skin closed loosely with soraya and Telfa meliton were placed in the subcutaneous space. Sterile dressing applied. The colostomy was matured with 3-0 chromic sutures ____ placed. Postop foreign body film was negative for unexplained foreign body. Sterile dressings applied. The patient was awakened from his anesthetic and taken to the ICU in stable but guarded condition. ORION GROSS MD DR: KAYLYNN/marco JOB#: [id number] / [id number]
[2017-01-26] MEDS ORDERED: METRONIDAZOLE 500mg PREMIX 100 ML IV SCH (09:00)
[2017-01-26] MEDS: PIPERACILLIN/TAZOBACTAM 3.375 GM in IV NORMAL SALINE 50ML 50 ML IV SCH ×4 (09:02→23:40)
[2017-01-26] MEDS: NICOTINE 21MG PATCH. TD SCH (09:03)
[2017-01-26] MEDS: ENOXAPARIN 40 MG/0.4 ML SYRINGE. SQ SCH (09:03)
[2017-01-26] MEDS: FAMOTIDINE 20 MG/2 ML VIAL IVP SCH ×2 (09:03→21:22)
[2017-01-26] MEDS: VANCOMYCIN PER PHARMACY MC PRN (11:08)
--- NOTE | 2017-01-26 14:44 | CONS ---
DATE OF CONSULTATION: 01/26/2017 REQUESTING PHYSICIAN: Dr. Jo. REASON FOR CONSULTATION: Peritonitis. HISTORY OF PRESENT ILLNESS: This is a 71-year-old gentleman with history of Crohn's disease who is on Remicade for the last 2 years who presented with sudden onset of abdominal pain and vomiting. The patient came to the ER and was found to have perforated viscus. The patient was taken to the OR and found to have a colon perforation. The patient underwent laparoscopy with splenic resection and end colostomy with Evans's pouch. The patient had hypotension for a short period of time. The patient is now off vasopressors, has NG tube in place. The patient is having some abdominal pain, but otherwise feeling fine. No more nausea, vomiting or diarrhea. The patient did not have any fever. The patient did not have any symptoms other than just sudden onset. PAST MEDICAL HISTORY: Positive for Crohn's disease. The patient is otherwise healthy. SOCIAL HISTORY: Positive for smoking. No alcohol use or drug use. The patient recently has been treated for pneumonia. ALLERGIES: No known drug allergies. CURRENT MEDICATIONS: Reviewed. The patient received a dose of Zosyn and on Flagyl now. REVIEW OF SYSTEMS: As per HPI. All other systems reviewed is negative. PHYSICAL EXAMINATION: GENERAL: Alert, oriented gentleman, not in distress. VITAL SIGNS: Stable, afebrile. HEENT: NAD. NECK: Supple, no JVP, no lymphadenopathy. LUNGS: Clear. HEART: S1, S2 regular. ABDOMEN: Abdomen has a post-surgical dressing on and ostomy on. EXTREMITIES: No edema or cyanosis. SKIN: Unremarkable. NEUROLOGIC: The patient is neurologically intact. LABORATORY DATA: White count is normal. BUN and creatinine are normal. X-ray and CT reviewed. IMPRESSION: 1. Perforated colon, status post splenic resection and Evans's procedure. 2. Feculent peritonitis. 3. Crohn's disease, on Remicade. 4. Sepsis with transient hypotension. PLAN: Recommend discontinue Flagyl, would initiate Zosyn with a regular dosing, add vancomycin, supportive care, PT/OT and will continue to follow. Thank you very much, Dr. Garcia and Dr. Jo, for giving me the opportunity to participate in this patient's care. KELSIE CANTU MD DR: CYRUS/marco JOB#: [id number] / [id number]
--- NOTE | 2017-01-26 15:27 | PDOC ---
Provider Note Provider Note SURG up to chair adequate pain control continue supportive care RON GROSS MD Jan 26, 2017 15:27
[2017-01-26] MEDS ORDERED: VANCOMYCIN 1.25 GM in IV NORMAL SALINE 250ML 250 ML IV SCH (21:00)
[2017-01-26] MEDS: DIPHENHYDRAMINE 50 MG/ML VIAL IV PRN (21:24)
[2017-01-27] VITALS (23 sets, daily range): BP systolic 81–127; BP diastolic 58–77
[2017-01-27 05:17] LABS: BASO % 0 % (0-3); EOS % 0 % (0-3); HEMATOCRIT 48.6 % (39.0-53.0); LYMPH % 7 % (24-48); MEAN CORPUSCULAR HEMOGLOBIN 35 pg (25-35); MEAN CORPUSCULAR HGB CONC 33 g/dL (31-37); MEAN CORPUSCULAR VOLUME 106 fL (79-100); MONO % 3 % (0-9); NEUT % 90 % (31-73); PLATELET COUNT 115 x10^3/uL (140-400); RED BLOOD COUNT 4.61 x10^6/uL (4.30-5.70)
[2017-01-27 05:36] LABS: CALCIUM 7.8 mg/dL (8.5-10.1); CREATININE 1.6 mg/dL (0.7-1.3); GFR 42.8
[2017-01-27] MEDS: PIPERACILLIN/TAZOBACTAM 3.375 GM in IV NORMAL SALINE 50ML 50 ML IV SCH ×3 (05:44→18:18)
[2017-01-27 07:23] LABS: PLT ESTIMATE DECREASED (ADEQUATE)
[2017-01-27] MEDS: POTASSIUM CL 20MEQ-0.45% NACL 1,000 ML IV SCH (08:00)
--- NOTE | 2017-01-27 08:08 | PDOC ---
Infectious Disease Note Subjective Subjective awake in chair, still NG in place ROS ROS GEN: Denies fevers, chills, sweats HEENT: Denies blurred vision, sore throat CV: Denies chest pain RESP: Denies shortness of air, cough GI: Denies n/v/d NEURO: Denies confusion, dizziness MSK: Denies weakness, joint pain/swelling Vital Sign Vital Signs Vital Signs Date Time Temp Pulse Resp B/P Pulse Ox O2 Delivery O2 Flow Rate FiO2 01/27/17 06:00 122 20 87/71 97 Nasal Cannula 4.0 01/27/17 04:00 96.7 96.7 Physical Exam PHYSICAL EXAM GENERAL: NAD, Alert HEENT: PERRL, OC/OP NECK: Supple, no JVD, no LN LUNGS: Clear HEART: S1S2, no gallop, no murmur ABD: Soft, NT, no organomegaly, no rebound, ostomy in place EXT: No edema, no cyanosis CONFIGURATION ANALYST: Alert, oriented x 3, no focal neurologic deficit SKIN: No rash IV: ok Labs Lab Laboratory Tests Test 01/27/17 04:45 White Blood Count 14.0x10^3/uL (4.0-11.0) Red Blood Count 4.61x10^6/uL (4.30-5.70) Hemoglobin 16.0g/dL (13.0-17.5) Hematocrit 48.6% (39.0-53.0) Mean Corpuscular Volume 106fL (79-100) Mean Corpuscular Hemoglobin 35pg (25-35) Mean Corpuscular Hemoglobin Concent 33g/dL (31-37) Red Cell Distribution Width 15.0% (11.5-14.5) Platelet Count 115x10^3/uL (140-400) Neutrophils (%) (Auto) 90% (31-73) Lymphocytes (%) (Auto) 7% (24-48) Monocytes (%) (Auto) 3% (0-9) Eosinophils (%) (Auto) 0% (0-3) Basophils (%) (Auto) 0% (0-3) Neutrophils # (Auto) 12.6x10^3uL (1.8-7.7) Lymphocytes # (Auto) 1.0x10^3/uL (1.0-4.8) Monocytes # (Auto) 0.4x10^3/uL (0.0-1.1) Eosinophils # (Auto) 0.0x10^3/uL (0.0-0.7) Basophils # (Auto) 0.0x10^3/uL (0.0-0.2) Segmented Neutrophils % 22% (35-66) Band Neutrophils % 47% (0-9) Lymphocytes % 13% (24-48) Monocytes % 6% (0-10) Metamyelocytes % 7% (0-0) Myelocytes % 5% (0-0) Platelet Estimate Decreased (ADEQUATE) Giant Platelets Present Polychromasia Sodium Level 143mmol/L (136-145) Potassium Level 6.0mmol/L (3.5-5.1) Chloride Level 109mmol/L (98-107) Carbon Dioxide Level 25mmol/L (21-32) Anion Gap 9 (6-14) Blood Urea Nitrogen 37mg/dL (8-26) Creatinine 1.6mg/dL (0.7-1.3) Estimated GFR (Cockcroft-Gault) 42.8 Glucose Level 109mg/dL (70-99) Calcium Level 7.8mg/dL (8.5-10.1) Objective Assessment Perforated colon s/p surgery Peritonitis Sepsis with hypotension Crohns disease on remicaid Recent pneumonia smoker Plan Plan of Care zosyn and vanc supportive care pt/ot KELSIE CANTU MD Jan 27, 2017 08:08
[2017-01-27] MEDS: ENOXAPARIN 40 MG/0.4 ML SYRINGE. SQ SCH (08:48)
[2017-01-27] MEDS: NICOTINE 21MG PATCH. TD SCH (08:48)
--- NOTE | 2017-01-27 09:07 | PDOC ---
PROGRESS NOTES Chief Complaint Chief Complaint Bowel perf ASSESSMENT AND PLAN: 1. colonic perforation: s/p emergent resection of splenic flexure with Paiz pouch on 01/[address] Garcia. recovering appropriately 2. Peritonitis: on broad-spectrum Abx 3. Crohn's: on remicade on O/p basis, i.e. immunosuppressed 4. VELVET: worse. IVF, monitor creat and lytes. renal consult 5. Hyperkalemia: severe. stop K in IVF; 1/2 NS. insulin/D5 if persistent. 6. Thrombocytopenia: prob 2/2 inflammation/infection. monitor 7. Anemia, macrocytic: obtain B12/folate levels 8. Leukocytosis: reactive; appears relatively low, considering 35 min CC time Vitals Vitals Vital Signs Date Time Temp Pulse Resp B/P Pulse Ox O2 Delivery O2 Flow Rate FiO2 01/27/17 06:00 122 20 87/71 97 Nasal Cannula 4.0 01/27/17 04:00 96.7 96.7 Physical Exam General: Alert, Oriented X3, Cooperative, No acute distress, Other (sore abd area - post op) Heart: Regular rate Lungs: Clear Abdomen: Soft, Other (midline incision with dry dressing, colostomy bag on left , 2 indwelling LASHAUN drains) Extremities: No clubbing, No cyanosis, No edema, Normal pulses, No tenderness/ swelling Skin: No rashes, No breakdown, No significant lesion Labs LABS Laboratory Tests Test 01/27/17 04:45 White Blood Count 14.0x10^3/uL (4.0-11.0) Red Blood Count 4.61x10^6/uL (4.30-5.70) Hemoglobin 16.0g/dL (13.0-17.5) Hematocrit 48.6% (39.0-53.0) Mean Corpuscular Volume 106fL (79-100) Mean Corpuscular Hemoglobin 35pg (25-35) Mean Corpuscular Hemoglobin Concent 33g/dL (31-37) Red Cell Distribution Width 15.0% (11.5-14.5) Platelet Count 115x10^3/uL (140-400) Neutrophils (%) (Auto) 90% (31-73) Lymphocytes (%) (Auto) 7% (24-48) Monocytes (%) (Auto) 3% (0-9) Eosinophils (%) (Auto) 0% (0-3) Basophils (%) (Auto) 0% (0-3) Neutrophils # (Auto) 12.6x10^3uL (1.8-7.7) Lymphocytes # (Auto) 1.0x10^3/uL (1.0-4.8) Monocytes # (Auto) 0.4x10^3/uL (0.0-1.1) Eosinophils # (Auto) 0.0x10^3/uL (0.0-0.7) Basophils # (Auto) 0.0x10^3/uL (0.0-0.2) Segmented Neutrophils % 22% (35-66) Band Neutrophils % 47% (0-9) Lymphocytes % 13% (24-48) Monocytes % 6% (0-10) Metamyelocytes % 7% (0-0) Myelocytes % 5% (0-0) Platelet Estimate Decreased (ADEQUATE) Giant Platelets Present Polychromasia Sodium Level 143mmol/L (136-145) Potassium Level 6.0mmol/L (3.5-5.1) Chloride Level 109mmol/L (98-107) Carbon Dioxide Level 25mmol/L (21-32) Anion Gap 9 (6-14) Blood Urea Nitrogen 37mg/dL (8-26) Creatinine 1.6mg/dL (0.7-1.3) Estimated GFR (Cockcroft-Gault) 42.8 Glucose Level 109mg/dL (70-99) Calcium Level 7.8mg/dL (8.5-10.1) Review of Systems Review of Systems feels fine. pain controlled. wants to walk. KAYLYNN CONNELL MD Jan 27, 2017 09:06
[2017-01-27] MEDS: VANCOMYCIN PER PHARMACY MC PRN (09:44)
--- NOTE | 2017-01-27 11:10 | PDOC ---
SURGICAL PROGRESS NOTE Subjective up in chair abdomen sore no n/v Vital Signs Vital Signs Date Time Temp Pulse Resp B/P Pulse Ox O2 Delivery O2 Flow Rate FiO2 01/27/17 08:00 Nasal Cannula 4.0 01/27/17 06:00 122 20 87/71 97 01/27/17 04:00 96.7 96.7 I&O Intake and Output 01/27/17 07:00 Intake Total 2332.5 ml Output Total 3250 ml Balance -917.5 ml Intake IV Total 2332.5 ml Output Urine Total 560 ml Gastric Drainage Total 2100 ml Drainage Total 590 ml PATIENT HAS A YANCEY: Yes (critical I&O monitoring ) General: Alert, Oriented X3, Cooperative, No acute distress HEENT: Other (NG in place LIS) Abdomen: Soft, Other (incision c/d/i, no erythema, meliton in place, drain serous , stoma pink) Labs Laboratory Tests Test 01/25/17 21:49 01/27/17 04:45 01/27/17 08:38 White Blood Count 10.0x10^3/uL (4.0-11.0) 14.0x10^3/uL (4.0-11.0) Red Blood Count 4.89x10^6/uL (4.30-5.70) 4.61x10^6/uL (4.30-5.70) Hemoglobin 17.1g/dL (13.0-17.5) 16.0g/dL (13.0-17.5) Hematocrit 49.9% (39.0-53.0) 48.6% (39.0-53.0) Mean Corpuscular Volume 102fL (79-100) 106fL (79-100) Mean Corpuscular Hemoglobin 35pg (25-35) 35pg (25-35) Mean Corpuscular Hemoglobin Concent 34g/dL (31-37) 33g/dL (31-37) Red Cell Distribution Width 14.7% (11.5-14.5) 15.0% (11.5-14.5) Platelet Count 157x10^3/uL (140-400) 115x10^3/uL (140-400) Neutrophils (%) (Auto) 23% (31-73) 90% (31-73) Lymphocytes (%) (Auto) 66% (24-48) 7% (24-48) Monocytes (%) (Auto) 10% (0-9) 3% (0-9) Eosinophils (%) (Auto) 1% (0-3) 0% (0-3) Basophils (%) (Auto) 1% (0-3) 0% (0-3) Neutrophils # (Auto) 2.3x10^3uL (1.8-7.7) 12.6x10^3uL (1.8-7.7) Lymphocytes # (Auto) 6.6x10^3/uL (1.0-4.8) 1.0x10^3/uL (1.0-4.8) Monocytes # (Auto) 1.0x10^3/uL (0.0-1.1) 0.4x10^3/uL (0.0-1.1) Eosinophils # (Auto) 0.1x10^3/uL (0.0-0.7) 0.0x10^3/uL (0.0-0.7) Basophils # (Auto) 0.1x10^3/uL (0.0-0.2) 0.0x10^3/uL (0.0-0.2) Sodium Level 145mmol/L (136-145) 143mmol/L (136-145) Potassium Level 4.4mmol/L (3.5-5.1) 6.0mmol/L (3.5-5.1) Chloride Level 107mmol/L (98-107) 109mmol/L (98-107) Carbon Dioxide Level 25mmol/L (21-32) 25mmol/L (21-32) Anion Gap 13 (6-14) 9 (6-14) Blood Urea Nitrogen 21mg/dL (8-26) 37mg/dL (8-26) Creatinine 1.0mg/dL (0.7-1.3) 1.6mg/dL (0.7-1.3) Estimated GFR (Cockcroft-Gault) 73.7 42.8 BUN/Creatinine Ratio 21 (6-20) Glucose Level 136mg/dL (70-99) 109mg/dL (70-99) Calcium Level 9.4mg/dL (8.5-10.1) 7.8mg/dL (8.5-10.1) Total Bilirubin 0.4mg/dL (0.2-1.0) Aspartate Amino Transf (AST/SGOT) 32U/L (15-37) Alanine Aminotransferase (ALT/SGPT) 30U/L (16-63) Alkaline Phosphatase 73U/L (46-116) Total Protein 7.0g/dL (6.4-8.2) Albumin 3.6g/dL (3.4-5.0) Albumin/Globulin Ratio 1.1 (1.0-1.7) Lipase 154U/L (73-393) Segmented Neutrophils % 22% (35-66) Band Neutrophils % 47% (0-9) Lymphocytes % 13% (24-48) Monocytes % 6% (0-10) Metamyelocytes % 7% (0-0) Myelocytes % 5% (0-0) Platelet Estimate Decreased (ADEQUATE) Giant Platelets Present Polychromasia Vancomycin Level Trough 19.2mcg/mL (10.0-20.0) Vancomycin Last Dose Date 01/27/17 Vancomycin Last Dose Time 0900 Laboratory Tests Test 01/27/17 04:45 01/27/17 08:38 White Blood Count 14.0x10^3/uL (4.0-11.0) Red Blood Count 4.61x10^6/uL (4.30-5.70) Hemoglobin 16.0g/dL (13.0-17.5) Hematocrit 48.6% (39.0-53.0) Mean Corpuscular Volume 106fL (79-100) Mean Corpuscular Hemoglobin 35pg (25-35) Mean Corpuscular Hemoglobin Concent 33g/dL (31-37) Red Cell Distribution Width 15.0% (11.5-14.5) Platelet Count 115x10^3/uL (140-400) Neutrophils (%) (Auto) 90% (31-73) Lymphocytes (%) (Auto) 7% (24-48) Monocytes (%) (Auto) 3% (0-9) Eosinophils (%) (Auto) 0% (0-3) Basophils (%) (Auto) 0% (0-3) Neutrophils # (Auto) 12.6x10^3uL (1.8-7.7) Lymphocytes # (Auto) 1.0x10^3/uL (1.0-4.8) Monocytes # (Auto) 0.4x10^3/uL (0.0-1.1) Eosinophils # (Auto) 0.0x10^3/uL (0.0-0.7) Basophils # (Auto) 0.0x10^3/uL (0.0-0.2) Segmented Neutrophils % 22% (35-66) Band Neutrophils % 47% (0-9) Lymphocytes % 13% (24-48) Monocytes % 6% (0-10) Metamyelocytes % 7% (0-0) Myelocytes % 5% (0-0) Platelet Estimate Decreased (ADEQUATE) Giant Platelets Present Polychromasia Sodium Level 143mmol/L (136-145) Potassium Level 6.0mmol/L (3.5-5.1) Chloride Level 109mmol/L (98-107) Carbon Dioxide Level 25mmol/L (21-32) Anion Gap 9 (6-14) Blood Urea Nitrogen 37mg/dL (8-26) Creatinine 1.6mg/dL (0.7-1.3) Estimated GFR (Cockcroft-Gault) 42.8 Glucose Level 109mg/dL (70-99) Calcium Level 7.8mg/dL (8.5-10.1) Vancomycin Level Trough 19.2mcg/mL (10.0-20.0) Vancomycin Last Dose Date 01/27/17 Vancomycin Last Dose Time 0900 Problem List Problems Medical Problems: (1) Perforated abdominal viscus Status: Acute Assessment/Plan POD#1 Dx l/s, laparotomy with splenic resection, end colostomy, Evans's pouch Cr 1.6, low urine output, K 6 A flutter will consult renal cardiology consult noted continue NG, drains Problems: FERNANDO CEJA APRN Jan 27, 2017 11:10
--- NOTE | 2017-01-27 11:44 | PDOC2 ---
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 [facility] 01/27/17 1144: CARDIAC CONSULT DATE OF CONSULT Date of Consult DATE: 01/27/17 TIME: 11:26 REASON FOR CONSULT Reason for Consult: Atrial flutter REFERRING PHYSICIAN Referring Physician: Dr. Jo SOURCE Source: Chart review, Patient HISTORY OF PRESENT ILLNESS HISTORY OF PRESENT ILLNESS This is a 71 yo male, with a history of Crohn's Dx treated with Remicade, who presented with complaints of abdominal pain. Abdominal CT suggestive of bowel perforation. Was taken emergently for exp. lap and was found to have perforated viscus, secondary to splenic flexure of the colon perforation. Underwent splenic resection with end colostomy with Evans's pouch. Post-operatively, patient noted to be in atrial fibrillation with RVR, which prompted this consult. Reports prior h/o irregular heart rhythm post colonoscopy in 2006. Reports it was "put back in normal rhythm" at [facility]. Denies previous cardioversion. Does not follow with practice nurse. Reporting mild abdominal pain. No palpitations, SOA, dizziness, diaphoresis, CP, or nausea/vomiting. PAST MEDICAL HISTORY Cardiovascular: AFIB, Hyperlipidemia Pulmonary: No pertinent hx CENTRAL NERVOUS SYSTEM: Other (no pertinent hx ) GI: Other (Crohn's Dx) Heme/Onc: No pertinent hx Hepatobiliary: No pertinent hx Psych: No pertinent hx Musculoskeletal: Osteoarthritis Rheumatologic: No pertinent hx Infectious disease: No pertinent hx ENT: No pertinent hx Renal/: Other (kidney stones ) Endocrine: No pertinent hx Dermatology: No pertinent hx PAST SURGICAL HISTORY Past Surgical History: Other (stone removal) FAMILY HISTORY Family History: Cancer SOCIAL HISTORY Smoke: 1 pack per day (1.5 ppd) ALCOHOL: occassional Drugs: Other (h/o cocaine use 25yrs ago) Lives: with Family CURRENT MEDICATIONS CURRENT MEDICATIONS Current Medications Medications (Trade) Dose Ordered Sig/Ofelia Route PRN Reason Start Time Stop Time Status Last Admin Dose Admin Vancomycin HCl/ Sodium Chloride (Iv Sodium Chloride 0.9% 250ml) 250 ml @ 167 mls/hr Q12H IV 01/26/17 21:00 01/27/17 09:36 DC 01/26/17 21:22 ALLERGIES ALLERGIES: Coded Allergies: No Known Drug Allergies (Unverified , 01/25/17) ROS Review of System 14 point ROS conducted with pertinent positives noted above in HPI PHYSICAL EXAM General: Alert, Oriented X3, Cooperative HEENT: Atraumatic, Other (right nare NG ) Lungs: Clear to auscultation, Normal air movement Heart: Normal S1, Normal S2, Other (tele: AFIB/A-flutter rate 135) Abdomen: Other (new colostomy, tenderness ) Extremities: No edema, Normal pulses Skin: No significant lesion, Other Neuro: Normal speech, Sensation intact Psych/Mental Status: Mental status NL, Mood NL MUSCULOSKELETAL: Osteoarthritic changes both hands VITALS VITALS Vital Signs Date Time Temp Pulse Resp B/P Pulse Ox O2 Delivery O2 Flow Rate FiO2 01/27/17 08:00 Nasal Cannula 4.0 01/27/17 06:00 122 20 87/71 97 01/27/17 04:00 96.7 96.7 LABS Lab: Laboratory Tests Test 01/27/17 04:45 01/27/17 08:38 White Blood Count 14.0x10^3/uL (4.0-11.0) Red Blood Count 4.61x10^6/uL (4.30-5.70) Hemoglobin 16.0g/dL (13.0-17.5) Hematocrit 48.6% (39.0-53.0) Mean Corpuscular Volume 106fL (79-100) Mean Corpuscular Hemoglobin 35pg (25-35) Mean Corpuscular Hemoglobin Concent 33g/dL (31-37) Red Cell Distribution Width 15.0% (11.5-14.5) Platelet Count 115x10^3/uL (140-400) Neutrophils (%) (Auto) 90% (31-73) Lymphocytes (%) (Auto) 7% (24-48) Monocytes (%) (Auto) 3% (0-9) Eosinophils (%) (Auto) 0% (0-3) Basophils (%) (Auto) 0% (0-3) Neutrophils # (Auto) 12.6x10^3uL (1.8-7.7) Lymphocytes # (Auto) 1.0x10^3/uL (1.0-4.8) Monocytes # (Auto) 0.4x10^3/uL (0.0-1.1) Eosinophils # (Auto) 0.0x10^3/uL (0.0-0.7) Basophils # (Auto) 0.0x10^3/uL (0.0-0.2) Segmented Neutrophils % 22% (35-66) Band Neutrophils % 47% (0-9) Lymphocytes % 13% (24-48) Monocytes % 6% (0-10) Metamyelocytes % 7% (0-0) Myelocytes % 5% (0-0) Platelet Estimate Decreased (ADEQUATE) Giant Platelets Present Polychromasia Sodium Level 143mmol/L (136-145) Potassium Level 6.0mmol/L (3.5-5.1) Chloride Level 109mmol/L (98-107) Carbon Dioxide Level 25mmol/L (21-32) Anion Gap 9 (6-14) Blood Urea Nitrogen 37mg/dL (8-26) Creatinine 1.6mg/dL (0.7-1.3) Estimated GFR (Cockcroft-Gault) 42.8 Glucose Level 109mg/dL (70-99) Calcium Level 7.8mg/dL (8.5-10.1) Vancomycin Level Trough 19.2mcg/mL (10.0-20.0) Vancomycin Last Dose Date 01/27/17 Vancomycin Last Dose Time 0900 ASSESSMENT/PLAN ASSESSMENT/PLAN 1. Atrial fibrillation with RVR, paroxysmal 2. Perforated viscus, s/p resection with end colostomy 3. Crohn's Dx 4. VELVET 5. Hyperkalemia 6. Tobaccoism Recommendations Cardizem gtt for rate control NPO- on Lovenox- will increase to tx dosing if okay with sx. obtain echocardiogram correct lytes- IV fluids adjusted check TSH Further recommendations pending diagnostics. Problems: KATIE PARK MD 01/27/17 1603: CARDIAC CONSULT ALLERGIES ALLERGIES: Coded Allergies: No Known Drug Allergies (Unverified , 01/25/17) ASSESSMENT/PLAN ASSESSMENT/PLAN Patient seen and examined. Agree with the well-nourished practitioner noted. 71-year-old gentleman admitted for perforated abdominal viscus. Normal cardiac exam. Echocardiogram pending. Currently atrial fibrillation with a rapid ventricular response, expected in the setting of his other comorbidities. Supportive care with Cardizem drip until he is able to take by mouth medications. Can increase anticoagulation if okay from a surgical perspective. Otherwise continue prophylactic dose. We will follow along. Problems: 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 APRN 21, 2017 11:44 KATIE PARK MD Jan 27, 2017 16:03
[2017-01-27] MEDS: DILTIAZEM 125 MG in IV DEXTROSE 5% 100 ML IV PRN ×2 (13:18→23:12)
[2017-01-27] MEDS ORDERED: IV 1/2 NORMAL SALINE 1,000 ML IV ONE (13:30)
--- NOTE | 2017-01-27 16:42 | CARD ---
APPROVED REPORT EXAM: Two-dimensional and M-mode echocardiogram with Doppler and color Doppler. Other Information Quality : AverageHR: 108bpm Rhythm : TachycardiaAtrial- Flutter INDICATION New onset of atrial flutter 2D DIMENSIONS RVDd3.0 (2.9-3.5cm)Left Atrium(2D)3.7 (1.6-4.0cm) IVSd0.8 (0.7-1.1cm)Aortic Root(2D)4.5 (2.0-3.7cm) LVDd4.0 (3.9-5.9cm)LVOT Diameter2.5 (1.8-2.4cm) PWd0.8 (0.7-1.1cm)LVDs3.0 (2.5-4.0cm) FS (%) 25.8 %SV36.5 ml LVEF(%)51.2 (>50%) Aortic Valve AoV Peak [place].86.6cm/sAoV VTI13.8cm AO Peak GR.3.0mmHgLVOT Peak [place].74.2cm/s AO Mean GR.2mmHgAVA (VMAX)4.12cm2 Tricuspid Valve TR P. [id number] Peak Gr.24mmHg LEFT VENTRICLE The left ventricle is normal size. There is normal left ventricular wall thickness. The left ventricu lar systolic function is normal and the ejection fraction is within normal range. The Ejection Fracti on is 50-55%. There is normal LV segmental wall motion. Tissue Doppler imaging reveals moderate left ventricular diastolic dysfunction. RIGHT VENTRICLE The right ventricle is normal size. There is normal right ventricular wall thickness. The right ventr icular systolic function is normal. ATRIA The left atrium is borderline dilated. The right atrium size is normal. The interatrial septum is int act with no evidence for an atrial septal defect or patent foramen ovale as noted on 2-D or Doppler i maging. AORTIC VALVE The aortic valve is not well visualized but does open well. The aortic valve is mildly sclerotic. Dop pler and Color Flow revealed no significant aortic regurgitation. There is no significant aortic valv ular stenosis. MITRAL VALVE The mitral valve leaflets are thickened. There is no evidence of mitral valve prolapse. There is no m itral valve stenosis. Doppler and Color Flow revealed no mitral valve regurgitation noted. TRICUSPID VALVE The tricuspid valve is normal in structure and function. Doppler and Color Flow revealed trace tricus pid regurgitation. The pulmonary artery systolic pressure is estimated at 27 mmHg. There is no pulmon astrid hypertension. PULMONIC VALVE Doppler and Color Flow revealed no pulmonic valvular regurgitation. There is no pulmonic valvular michelle nosis. GREAT VESSELS The aortic root is mildly enlarged. The ascending aorta is normal in size. The IVC was not visualized . PERICARDIAL EFFUSION There is no evidence of significant pericardial effusion. Critical Notification Critical Value: No <Conclusion> The left ventricular systolic function is normal and the ejection fraction is within normal range. Th e Ejection Fraction is 50-55%. There is normal LV segmental wall motion. Tissue Doppler imaging reveals moderate left ventricular diastolic dysfunction.
--- NOTE | 2017-01-27 17:44 | PDOC2 ---
CONSULT Date of Consult Date of Consult DATE: 01/27/17 TIME: 17:37 Reason for Consult Reason for Consult: Yunier/ ^ K Referring Physician Referring Physician: Dr Jo Identification/Chief Complaint Chief Complaint ABd pain Problems: Source Source: Chart review, Patient History of Present Illness Reason for Visit: as dictated Past Medical History Cardiovascular: AFIB, Hyperlipidemia Pulmonary: No pertinent hx CENTRAL NERVOUS SYSTEM: Other (no pertinent hx ) GI: Other (Crohn's Dx) Heme/Onc: No pertinent hx Hepatobiliary: No pertinent hx Psych: No pertinent hx Musculoskeletal: Osteoarthritis Rheumatologic: No pertinent hx Infectious disease: No pertinent hx ENT: No pertinent hx Renal/: Other (kidney stones ) Endocrine: No pertinent hx Dermatology: No pertinent hx Past Surgical History Past Surgical History: Other (stone removal) Family History Family History: Cancer Social History 1 pack per day (1.5 ppd) ALCOHOL: occassional Drugs: Other (h/o cocaine use 25yrs ago) Lives: with Family Current Problem List Problem List Problems Medical Problems: (1) Perforated abdominal viscus Status: Acute Current Medications Current Medications Current Medications Sodium Chloride (Iv Sodium Chloride 0.9% 1000ml Bag) 1,000 ml @ 100 mls/hr Q10H IV Last administered on 01/25/17 22:11; Start 01/25/17 at 22:30; Stop at 08:29; Status DC Ondansetron HCl (Zofran) 4 mg 1X ONCE IV Last administered on 01/25/17 22:12 ; Start 01/25/17 at 22:30; Stop 01/25/17 at 22:31; Status DC Fentanyl Citrate (Fentanyl 2ml Vial) 75 mcg PRN Q15MIN PRN IV PAIN GREATER THAN 3/10 Last administered on 01/26/17 00:50; Start 01/25/17 at 22:00; Stop at 21:59; Status DC Fentanyl Citrate (Fentanyl 2ml Vial) 100 mcg 1X ONCE IV Last administered on 22:12; Start 01/25/17 at 22:30; Stop 01/25/17 at 22:31; Status DC Iohexol (Omnipaque 300 Mg/ml) 75 ml 1X ONCE IV Last administered on 01/25/17 23:55; Start 01/26/17 at 00:00; Stop 01/26/17 at 00:01; Status DC Info 1 each 1 each PRN DAILY PRN MC SEE COMMENTS; Start 01/25/17 at 23:45; Stop 01/27/17 at 23:44 Piperacillin Sod/ Tazobactam Sod 3.375 gm/Sodium Chloride 50 ml @ 100 mls/hr 1X ONCE IV Last administered on 01/26/17 00:56; Start 01/26/17 at 01:00; Stop 01/26/17 at 01:29; Status DC Sodium Chloride (Iv Sodium Chloride 0.9% 1000ml Bag) 1,000 ml @ 100 mls/hr 1X ONCE IV Last administered on 01/26/17 00:53; Start 01/26/17 at 01:00; Stop at 10:59; Status DC Hydromorphone HCl (Dilaudid) 1 mg 1X ONCE IV Last administered on 01/26/17 01 :33; Start 01/26/17 at 01:30; Stop 01/26/17 at 01:34; Status DC Hydromorphone HCl 1 mg 1 mg 1X ONCE IV ; Start 01/26/17 at 02:00; Stop at 02:01; Status DC Piperacillin Sod/ Tazobactam Sod/ Sodium Chloride (Zosyn/Iv Sodium Chloride 0.9 % 50ml) 50 ml @ 100 mls/hr 1X ONCE IV Last administered on 01/26/17 02:43; Start 01/26/17 at 02:00; Stop 01/26/17 at 02:29; Status DC Dexamethasone Sodium Phosphate (Decadron) 20 mg STK-MED ONCE .ROUTE ; Start at 02:00; Stop 01/26/17 at 02:01; Status DC Ondansetron HCl 4 mg 4 mg STK-MED ONCE .ROUTE ; Start 01/26/17 at 02:00; Stop at 02:01; Status DC Propofol (Diprivan) 20 ml @ As Directed STK-MED ONCE IV ; Start 01/26/17 at 02: 00; Stop 01/26/17 at 02:01; Status DC Lidocaine HCl 100 mg STK-MED ONCE .ROUTE ; Start 01/26/17 at 02:00; Stop at 02:01; Status DC Fentanyl Citrate (Fentanyl 2ml Vial) 100 mcg STK-MED ONCE .ROUTE ; Start at 02:00; Stop 01/26/17 at 02:01; Status DC Succinylcholine Chloride (Anectine) 200 mg STK-MED ONCE .ROUTE ; Start 01/26/17 at 02:00; Stop 01/26/17 at 02:01; Status DC Rocuronium [place] (Zemuron) 50 mg STK-MED ONCE .ROUTE ; Start 01/26/17 at 02:00 ; Stop 01/26/17 at 02:01; Status DC Ondansetron HCl (Zofran) 4 mg PRN Q6HRS PRN IV Nausea; Start 01/26/17 at 02:15 ; Stop 01/27/17 at 02:14; Status DC Fentanyl Citrate (Fentanyl 2ml Vial) 25 mcg PRN Q5MIN PRN IV MILD PAIN; Start 01/26/17 at 02:15; Stop 01/27/17 at 02:14; Status DC Fentanyl Citrate (Fentanyl 2ml Vial) 50 mcg PRN Q5MIN PRN IV MODERATE PAIN; Start 01/26/17 at 02:15; Stop 01/27/17 at 02:14; Status DC Morphine Sulfate 1 mg 1 mg PRN Q10MIN PRN IV SEVERE PAIN; Start 01/26/17 at 02: 15; Stop 01/27/17 at 02:14; Status DC Lactated Ringer's (Iv Lactated Ringers) 1,000 ml @ 30 mls/hr Q24H IV ; Start at 02:09; Stop 01/26/17 at 14:08; Status DC Lidocaine HCl 2 ml 1X PRN PRN ID IV START; Start 01/26/17 at 02:15; Stop at 02:14; Status DC Hydromorphone HCl (Dilaudid) 0.5 mg PRN Q10MIN PRN IV SEV PAIN,Second choice Last administered on 01/26/17t 06:29; Start 01/26/17 at 02:15; Stop 01/27/17 at 02:14; Status DC Prochlorperazine Edisylate 5 mg 5 mg PACU PRN PRN IV NAUSEA; Start 01/26/17 at 02:15; Stop 01/27/17 at 02:14; Status DC Bacitracin/Sodium Chloride (Iv Sodium Chloride 0.9% 500ml Bag) 500 ml @ 500 mls /hr 1X PERIOP ONCE IRR ; Start 01/26/17 at 03:00; Stop 01/26/17 at 03:59; Status DC Hydrocortisone Sodium Succinate (Solu-Cortef) 100 mg STK-MED ONCE .ROUTE ; Start 01/26/17 at 02:24; Stop 01/26/17 at 02:25; Status DC Sevoflurane (Ultane) 90 ml STK-MED ONCE IH ; Start 01/26/17 at 03:16; Stop 01/26 at 03:17; Status DC Phenylephrine HCl 1 mg STK-MED ONCE IV ; Start 01/26/17 at 03:17; Stop 01/26/17 at 03:18; Status DC Phenylephrine HCl (Bhargav-Synephrine Inj) 10 mg STK-MED ONCE .ROUTE ; Start at 03:32; Stop 01/26/17 at 03:33; Status DC Rocuronium [place] (Zemuron) 50 mg STK-MED ONCE .ROUTE ; Start 01/26/17 at 03:36 ; Stop 01/26/17 at 03:37; Status DC Cellulose 1 each STK-MED ONCE .ROUTE Last administered on 01/26/17t 02:47; Start 01/26/17 at 03:38; Stop 01/26/17 at 03:39; Status DC Glycopyrrolate (Robinul) 1 mg STK-MED ONCE .ROUTE ; Start 01/26/17 at 04:23; Stop 01/26/17 at 04:24; Status DC Neostigmine Methylsulfate 5 mg STK-MED ONCE .ROUTE ; Start 01/26/17 at 04:23; Stop 01/26/17 at 04:24; Status DC Sevoflurane (Ultane) 90 ml STK-MED ONCE IH ; Start 01/26/17 at 04:23; Stop 01/26 at 04:24; Status DC Esmolol HCl (Brevibloc) 100 mg STK-MED ONCE IV ; Start 01/26/17 at 04:28; Stop 01/26/17 at 04:29; Status DC Fentanyl Citrate 100 mcg 100 mcg STK-MED ONCE .ROUTE ; Start 01/26/17 at 05:09; Stop 01/26/17 at 05:10; Status DC Metronidazole (FLAGYL 500Mmg PREMIX) 100 ml @ 100 mls/hr Q12HR IV ; Start 01/26 at 09:00; Stop 01/26/17 at 09:00; Status DC Diphenhydramine HCl (Benadryl) 25 mg PRN Q6HRS PRN IV ITCHING Last administered on 01/26/17 21:24; Start 01/26/17 at 05:45 Famotidine (Pepcid) 20 mg BID IVP Last administered on 01/26/17 21:22; Start 01/26/17 at 09:00; Stop 01/27/17 at 08:10; Status DC Enoxaparin Sodium (Lovenox 40mg Syringe) 40 mg Q24H SQ Last administered on 08:48; Start 01/26/17 at 09:00; Stop 01/27/17 at 15:59; Status DC Sodium Chloride 3 ml 3 ml QSHIFT PRN IV AFTER MEDS AND BLOOD DRAWS; Start 01/26 at 05:45 Potassium Chloride/Sodium Chloride 1,000 ml @ 100 mls/hr Q10H IV Last administered on 01/26/17 21:24; Start 01/26/17 at 06:00; Stop 01/27/17 at 13:26 ; Status DC Hydromorphone HCl (Dilaudid Standard [employer]) 30 ml @ 0 mls/hr CONT PRN PRN IV PROTOCOL Last administered on 01/26/17 07:01; Start 01/26/17 at 05:45 Hydromorphone HCl (Dilaudid) 1 mg PRN Q1HR PRN IV MODERATE PAIN; Start at 05:45 Ondansetron HCl (Zofran) 4 mg PRN Q6HRS PRN IV NAUESA, 1ST CHOICE; Start at 05:45 Throat Lozenges (Chloraseptic) 1 spray PRN Q2HR PRN PO SORE THROAT; Start 01/26 at 05:45 Throat Lozenges (Cepacol Sore Throat Lozenge) 1 west PRN Q2HRS PRN PO SORE THROAT; Start 01/26/17 at 05:45 Nicotine 1 patch 1 patch DAILY TD Last administered on 01/27/17 08:48; Start 01/26/17 at 09:00 Piperacillin Sod/ Tazobactam Sod/ Sodium Chloride (Zosyn/Iv Sodium Chloride 0.9 % 50ml) 50 ml @ 100 mls/hr Q6HRS IV Last administered on 01/27/17 13:17; Start 01/26/17 at 08:00 Vancomycin HCl 1 each 1 each PRN DAILY PRN MC SEE COMMENTS Last administered on 01/27/17 09:44; Start 01/26/17 at 07:45 Vancomycin HCl 2 gm/Sodium Chloride 500 ml @ 250 mls/hr 1X ONCE IV Last administered on 01/26/17 09:02; Start 01/26/17 at 08:00; Stop 01/26/17 at 09:59 ; Status DC Vancomycin HCl/ Sodium Chloride (Iv Sodium Chloride 0.9% 250ml) 250 ml @ 167 mls/hr Q12H IV Last administered on 01/26/17 21:22; Start 01/26/17 at 21:00; Stop 01/27/17 at 09:36; Status DC Vancomycin HCl 1 each 1X ONCE MC Last administered on 01/27/17 08:30; Start 01/27/17 at 08:30; Stop 01/27/17 at 08:31; Status DC Famotidine 20 mg 20 mg QHS IVP ; Start 01/27/17 at 21:00 Vancomycin HCl/ Sodium Chloride (Iv Sodium Chloride 0.9% 250ml) 250 ml @ 167 mls/hr Q24H IV ; Start 01/27/17 at 22:00 Vancomycin HCl 1 each 1 each 1X ONCE MC ; Start 01/28/17 at 21:30; Stop at 21:31 Diltiazem HCl 125 mg/Dextrose 125 ml @ 0 mls/hr CONT PRN IV SEE I/O RECORD Last administered on 01/27/17 13:18; Start 01/27/17 at 11:45 Sodium Chloride (Iv Sodium Chloride 0.45%) 1,000 ml @ 100 mls/hr 1X ONCE IV Last administered on 01/27/17 13:30; Start 01/27/17 at 13:30; Stop 01/27/17 at 23:29 Enoxaparin Sodium (Lovenox Per Pharmacy Treatment Dosing) 1 each PRN DAILY PRN MC SEE COMMENTS; Start 01/27/17 at 16:00 Enoxaparin Sodium (Lovenox 80mg Syringe) 75 mg Q12HR SQ ; Start 01/27/17 at 18: 00 Active Scripts Active Reported Remicade (Infliximab) 100 Mg Vial 100 Mg IV Q8HRS Allergies Allergies: Coded Allergies: No Known Drug Allergies (Unverified , 01/25/17) ROS Review of System pt too drowsy currently to answer ROS Qs Physical Exam Physical Exam GEN: Awake, not fully Oriented or Alert per se, In no distress EYES: Vision Unchanged, Conjunctiva Normal EN: No EN Drainage, Mucous Membranes dryish NECK: no JVD, min JVP, Supple, no Thyromegaly CVS: S1S2, no Murmur, No Gallop, No Rub,no Edema RESP: no Rales, no Rhonchi,no Acc. Muscle Use GI: BS - ve, NO Bruit, + Tender, Non Distended; Ostomy in place : no CVA tenderness; no Suprapubic Tenderness SKIN: no visible Rashes Breast Exam deferred Mu.Sk: Adequate ROM no Muscle Atrophy Heme: Unable to palpate Obvious LAD no palp Splenomegaly NEURO: appears to have adequate Strength and Tone Cranial Nerves II - XII difficult to assess Psych: ? Depressed vs Sleep deprived and under influence of Opiods. no Active hallucination Vital Signs Vital Signs Date Time Temp Pulse Resp B/P Pulse Ox O2 Delivery O2 Flow Rate FiO2 01/27/17 08:00 Nasal Cannula 4.0 01/27/17 06:00 122 20 87/71 97 01/27/17 04:00 96.7 96.7 Assessment & Plan ARF: Cannot R/o ATn duet o CAN or Hypotension/ Sepsis. Current FLuid and E-lyte status does not necessitate emergent need for Dialysis. Will re-evaluate for Dialysis in am ; No renal ABN noted on CT report. ^K - in the am. Pt was on IVF with KCL, recheck ordered. Oliguria - IVF boluses prn (not sure if hgb is artificially high due to dehydration) anticipate it to drop with IVF, Post-op; HypoTN: ? Hypovolemia vs Sepsis; IVF for now. Current BP meds held. Lowish Dewayne - check CK, Mag etc Labs Labs Laboratory Tests Test 01/25/17 21:49 01/27/17 04:45 01/27/17 08:38 White Blood Count 10.0x10^3/uL (4.0-11.0) 14.0x10^3/uL (4.0-11.0) Red Blood Count 4.89x10^6/uL (4.30-5.70) 4.61x10^6/uL (4.30-5.70) Hemoglobin 17.1g/dL (13.0-17.5) 16.0g/dL (13.0-17.5) Hematocrit 49.9% (39.0-53.0) 48.6% (39.0-53.0) Mean Corpuscular Volume 102fL (79-100) 106fL (79-100) Mean Corpuscular Hemoglobin 35pg (25-35) 35pg (25-35) Mean Corpuscular Hemoglobin Concent 34g/dL (31-37) 33g/dL (31-37) Red Cell Distribution Width 14.7% (11.5-14.5) 15.0% (11.5-14.5) Platelet Count 157x10^3/uL (140-400) 115x10^3/uL (140-400) Neutrophils (%) (Auto) 23% (31-73) 90% (31-73) Lymphocytes (%) (Auto) 66% (24-48) 7% (24-48) Monocytes (%) (Auto) 10% (0-9) 3% (0-9) Eosinophils (%) (Auto) 1% (0-3) 0% (0-3) Basophils (%) (Auto) 1% (0-3) 0% (0-3) Neutrophils # (Auto) 2.3x10^3uL (1.8-7.7) 12.6x10^3uL (1.8-7.7) Lymphocytes # (Auto) 6.6x10^3/uL (1.0-4.8) 1.0x10^3/uL (1.0-4.8) Monocytes # (Auto) 1.0x10^3/uL (0.0-1.1) 0.4x10^3/uL (0.0-1.1) Eosinophils # (Auto) 0.1x10^3/uL (0.0-0.7) 0.0x10^3/uL (0.0-0.7) Basophils # (Auto) 0.1x10^3/uL (0.0-0.2) 0.0x10^3/uL (0.0-0.2) Sodium Level 145mmol/L (136-145) 143mmol/L (136-145) Potassium Level 4.4mmol/L (3.5-5.1) 6.0mmol/L (3.5-5.1) Chloride Level 107mmol/L (98-107) 109mmol/L (98-107) Carbon Dioxide Level 25mmol/L (21-32) 25mmol/L (21-32) Anion Gap 13 (6-14) 9 (6-14) Blood Urea Nitrogen 21mg/dL (8-26) 37mg/dL (8-26) Creatinine 1.0mg/dL (0.7-1.3) 1.6mg/dL (0.7-1.3) Estimated GFR (Cockcroft-Gault) 73.7 42.8 BUN/Creatinine Ratio 21 (6-20) Glucose Level 136mg/dL (70-99) 109mg/dL (70-99) Calcium Level 9.4mg/dL (8.5-10.1) 7.8mg/dL (8.5-10.1) Total Bilirubin 0.4mg/dL (0.2-1.0) Aspartate Amino Transf (AST/SGOT) 32U/L (15-37) Alanine Aminotransferase (ALT/SGPT) 30U/L (16-63) Alkaline Phosphatase 73U/L (46-116) Total Protein 7.0g/dL (6.4-8.2) Albumin 3.6g/dL (3.4-5.0) Albumin/Globulin Ratio 1.1 (1.0-1.7) Lipase 154U/L (73-393) Segmented Neutrophils % 22% (35-66) Band Neutrophils % 47% (0-9) Lymphocytes % 13% (24-48) Monocytes % 6% (0-10) Metamyelocytes % 7% (0-0) Myelocytes % 5% (0-0) Platelet Estimate Decreased (ADEQUATE) Giant Platelets Present Polychromasia Thyroid Stimulating Hormone (TSH) 1.715uIU/mL (0.358-3.74) Vancomycin Level Trough 19.2mcg/mL (10.0-20.0) Vancomycin Last Dose Date 01/27/17 Vancomycin Last Dose Time 0900 Laboratory Tests Test 01/27/17 04:45 01/27/17 08:38 White Blood Count 14.0x10^3/uL (4.0-11.0) Red Blood Count 4.61x10^6/uL (4.30-5.70) Hemoglobin 16.0g/dL (13.0-17.5) Hematocrit 48.6% (39.0-53.0) Mean Corpuscular Volume 106fL (79-100) Mean Corpuscular Hemoglobin 35pg (25-35) Mean Corpuscular Hemoglobin Concent 33g/dL (31-37) Red Cell Distribution Width 15.0% (11.5-14.5) Platelet Count 115x10^3/uL (140-400) Neutrophils (%) (Auto) 90% (31-73) Lymphocytes (%) (Auto) 7% (24-48) Monocytes (%) (Auto) 3% (0-9) Eosinophils (%) (Auto) 0% (0-3) Basophils (%) (Auto) 0% (0-3) Neutrophils # (Auto) 12.6x10^3uL (1.8-7.7) Lymphocytes # (Auto) 1.0x10^3/uL (1.0-4.8) Monocytes # (Auto) 0.4x10^3/uL (0.0-1.1) Eosinophils # (Auto) 0.0x10^3/uL (0.0-0.7) Basophils # (Auto) 0.0x10^3/uL (0.0-0.2) Segmented Neutrophils % 22% (35-66) Band Neutrophils % 47% (0-9) Lymphocytes % 13% (24-48) Monocytes % 6% (0-10) Metamyelocytes % 7% (0-0) Myelocytes % 5% (0-0) Platelet Estimate Decreased (ADEQUATE) Giant Platelets Present Polychromasia Sodium Level 143mmol/L (136-145) Potassium Level 6.0mmol/L (3.5-5.1) Chloride Level 109mmol/L (98-107) Carbon Dioxide Level 25mmol/L (21-32) Anion Gap 9 (6-14) Blood Urea Nitrogen 37mg/dL (8-26) Creatinine 1.6mg/dL (0.7-1.3) Estimated GFR (Cockcroft-Gault) 42.8 Glucose Level 109mg/dL (70-99) Calcium Level 7.8mg/dL (8.5-10.1) Thyroid Stimulating Hormone (TSH) 1.715uIU/mL (0.358-3.74) Vancomycin Level Trough 19.2mcg/mL (10.0-20.0) Vancomycin Last Dose Date 01/27/17 Vancomycin Last Dose Time 0900 Images Images reviewed ZAC CANTU MD Jan 27, 2017 17:44
[2017-01-27] MEDS ORDERED: MAGNESIUM SULFATE 2GM 50 ML IV PRN (17:45)
[2017-01-27] MEDS ORDERED: IV NORMAL SALINE 500ML BAG 500 ML IV PRN (17:45)
[2017-01-27] MEDS: ENOXAPARIN ** NOTE DOSE ** SYRINGE SQ SCH (18:18)
[2017-01-27] MEDS: DIPHENHYDRAMINE 50 MG/ML VIAL IV PRN (18:18)
[2017-01-27 20:22] LABS: BILIRUBIN,URINE NEGATIVE (NEG); GLUCOSE,URINE NEGATIVE (NEG); NITRITE,URINE NEGATIVE (NEG); PROTEIN,URINE 30 mg/dL (NEG-TRACE)
[2017-01-27 20:30] LABS: BACTERIA,URINE 0 /HPF (0-FEW); RBC,URINE OCC /HPF (0-2); SQUAMOUS EPITHELIAL CELL,UR OCC /LPF; WBC,URINE OCC /HPF (0-4)
[2017-01-27] MEDS: FAMOTIDINE 20 MG/2 ML VIAL IVP SCH (21:11)
[2017-01-27] MEDS: VANCOMYCIN 1.25 GM in IV NORMAL SALINE 250ML 250 ML IV SCH (21:23)
[2017-01-28] VITALS (24 sets, daily range): BP systolic 79–116; BP diastolic 55–69
[2017-01-28] MEDS: PIPERACILLIN/TAZOBACTAM 3.375 GM in IV NORMAL SALINE 50ML 50 ML IV SCH ×3 (00:07→13:17)
[2017-01-28] MEDS: HYDROMORPHONE STANDARD PCA 30 ML IV PRN (01:36)
[2017-01-28 06:02] LABS: ALBUMIN 1.9 g/dL (3.4-5.0); CALCIUM 8.5 mg/dL (8.5-10.1); CREATININE 1.1 mg/dL (0.7-1.3); PHOSPHORUS 2.3 mg/dL (2.6-4.7); POTASSIUM 4.1 mmol/L (3.5-5.1)
--- NOTE | 2017-01-28 06:42 | CONS ---
DATE OF CONSULTATION: REASON FOR CONSULTATION: Acute renal failure. HISTORY OF PRESENT ILLNESS: The patient is a 71-year-old gentleman who presented to the ER on the with complaints of abdominal pain and vomiting, which started about an hour prior to his arrival. He is known to have Crohn's disease and underwent CT scan of his abdomen, which showed free air as well as some free fluid in the abdomen and pelvis. He was taken emergently to the OR by Dr. Garcia and was noted to have a colon perforation at the splenic flexure. He is now status post laparotomy with end colostomy, Evans's pouch. Intraop, he appears to have good urine output, but this appears to have been trending downwards. He was on IV fluids with potassium and morning labs showed a potassium of 6.0. We were asked to see him for a bump in his creatinine from 1.0 to 1.6. Calcium was 7.8, down from 9.4. Lipase is normal, no incrementing medications are noted. He is noted to have significant aortoiliac calcific plaquing on x-ray reports. THIS CONSULT WAS NOT CALLED TO ME UNTIL THE PATIENT WAS NOTED TO BE ON MY LIST THIS EVENING INCIDENTALLY. ZAC CANTU MD DR: SIXTO/marco JOB#: [id number] / [id number]
[2017-01-28] MEDS ORDERED: ANTI-COAG MONITOR BY PHARMACY. MC PRN (07:45)
--- NOTE | 2017-01-28 07:59 | PDOC ---
Infectious Disease Note Subjective Subjective awake in chair, still NG in place ROS ROS GEN: Denies fevers, chills, sweats HEENT: Denies blurred vision, sore throat CV: Denies chest pain RESP: Denies shortness of air, cough GI: Denies n/v/d NEURO: Denies confusion, dizziness MSK: Denies weakness, joint pain/swelling Vital Sign Vital Signs Vital Signs Date Time Temp Pulse Resp B/P Pulse Ox O2 Delivery O2 Flow Rate FiO2 01/28/17 07:00 101 28 83/63 98 Room Air 01/27/17 23:59 4.0 01/27/17 23:26 97.4 97.4 Physical Exam PHYSICAL EXAM GENERAL: NAD, Alert HEENT: PERRL, OC/OP NECK: Supple, no JVD, no LN LUNGS: Clear HEART: S1S2, no gallop, no murmur ABD: Soft, NT, no organomegaly, no rebound EXT: No edema, no cyanosis [employer] AGENT: Alert, oriented x 3, no focal neurologic deficit SKIN: No rash IV: ok Labs Lab Laboratory Tests Test 01/27/17 08:38 01/27/17 17:40 01/27/17 20:05 01/28/17 05:25 Vancomycin Level Trough 19.2mcg/mL (10.0-20.0) Vancomycin Last Dose Date 01/27/17 Vancomycin Last Dose Time 0900 Potassium Level 4.5mmol/L (3.5-5.1) 4.1mmol/L (3.5-5.1) Creatine Kinase 108U/L (39-308) Urine Color Yellow Urine Clarity Clear Urine pH 6.0 Urine Specific [place] >=1.030 Urine Protein 30mg/dL (NEG-TRACE) Urine Glucose (UA) Negativemg/dL (NEG) Urine Ketones (Stick) Negativemg/dL (NEG) Urine Blood Moderate (NEG) Urine Nitrite Negative (NEG) Urine Bilirubin Negative (NEG) Urine Urobilinogen Dipstick 1.0mg/dL (0.2 mg/dL) Urine Leukocyte Esterase Negative (NEG) Urine RBC Occ/HPF (0-2) Urine WBC Occ/HPF (0-4) Urine Squamous Epithelial Cells Occ/LPF Urine Amorphous Sediment Present/HPF Urine Bacteria 0/HPF (0-FEW) Urine Mucus Slight/LPF Hemoglobin 13.7g/dL (13.0-17.5) Sodium Level 140mmol/L (136-145) Chloride Level 107mmol/L (98-107) Carbon Dioxide Level 26mmol/L (21-32) Anion Gap 7 (6-14) Blood Urea Nitrogen 26mg/dL (8-26) Creatinine 1.1mg/dL (0.7-1.3) Estimated GFR (Cockcroft-Gault) 66.0 Glucose Level 82mg/dL (70-99) Calcium Level 8.5mg/dL (8.5-10.1) Phosphorus Level 2.3mg/dL (2.6-4.7) Magnesium Level 1.8mg/dL (1.8-2.4) Albumin 1.9g/dL (3.4-5.0) Objective Assessment Perforated colon s/p surgery Peritonitis Sepsis with hypotension Crohns disease on remicaid Recent pneumonia smoker Plan Plan of Care zosyn and vanc supportive care pt/ot KELSIE CANTU MD Jan 28, 2017 07:59
--- NOTE | 2017-01-28 08:54 | CONS ---
DATE OF CONSULTATION: 01/25/2017 This note is dictated from the visit done urgently in the Emergency Department on the night of presentation. SUBJECTIVE: The patient is a 71-year-old with a history of Crohn's disease, who had acute onset of severe abdominal pain. He came to the ED where CT scan showed free air and free fluid. We are asked to see him for evaluation of the same. He had been in his usual state of health when he went to bed last night; however, he awakened with symptoms as noted above. He has not had previous abdominal surgery for his Crohn's disease. PAST SURGICAL HISTORY: He has had left flank hernia repair and a right-sided hernia repair as well as an umbilical hernia repair. PAST MEDICAL HISTORY: Medically, he denies any significant heart, lung or kidney problems. SOCIAL HISTORY: He is a smoker who occasionally uses alcohol. FAMILY HISTORY: Noncontributory. ALLERGIES: No known drug allergies. ROUTINE MEDICATIONS: All listed on reconciliation sheet. REVIEW OF SYSTEMS: GENERAL: Denies fevers or chills. HEENT: No recent sore throat or earache. CARDIAC: No chest pain. RESPIRATORY: No productive cough or wheezing; however, he is a smoker. GASTROINTESTINAL: See history of present illness. GENITOURINARY: No increased frequency or dysuria. NEUROLOGIC: No recent visual changes or headaches. SKIN: No rash or breakdown. 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 PSYCHIATRIC: No anxiety or depression. OBJECTIVE PHYSICIAL EXAMINATION: GENERAL: Revealed a slender elderly gentleman who is in severe abdominal pain. HEENT: Normocephalic. NECK: Supple. LUNGS: Have an occasional rhonchi. HEART: Had an increased rate. ABDOMEN: Belly was boat-like. GENITAL AND RECTAL: Deferred. EXTREMITIES: Show some arthritic changes, but no gross skeletal abnormalities. NEUROLOGIC: Grossly intact. ADMISSION LABORATORY DATA: Showed a white count of 10,000, hemoglobin of 17.1. Chemistries showed normal electrolytes. DIAGNOSTIC DATA: CT scan on presentation to the ED showed free air and fluid in the abdomen and pelvis. IMPRESSION: Perforated viscus in this gentleman with acute onset of abdominal pain and history of Crohn's disease. PLAN: Exploration. I explained the risks of the procedure to the patient and his significant other, including but not limited to bleeding, infection, possible bowel resection, possible temporary stoma. He understands and will proceed. Thank you for asking us to see this gentleman and participate in his care. We will follow him with you during this hospitalization. RON GROSS MD DR: Carlos Manuel JOB#: [id number] / [id number]
--- NOTE | 2017-01-28 09:02 | PDOC ---
PROGRESS NOTES Chief Complaint Chief Complaint Bowel perf ASSESSMENT AND PLAN: 1. Colonic perforation: s/p emergent resection of splenic flexure with Paiz pouch on 01/[address] Garcia. recovering amazingly well. advance diet as per Surg team 2. Peritonitis: on broad-spectrum Abx 3. Crohn's: on remicade on O/p basis, i.e. immunosuppressed 4. VELVET: recovering. monitor creat and lytes. appreciate Dr Kelli Coates's input 5. Hyperkalemia: resolved 6. Aflutter: new. appreciate cardiology input. 6. Thrombocytopenia: prob reactive. monitor 7. Anemia, macrocytic: awaiting B12/folate levels. ?EtOH related 8. Leukocytosis: reactive; 9. Agitation: personality vs EtOH W/D. monitor VS, behavior. Vitals Vitals Vital Signs Date Time Temp Pulse Resp B/P Pulse Ox O2 Delivery O2 Flow Rate FiO2 01/28/17 08:00 98.8 97 22 85/64 98 Room Air 98.8 01/27/17 23:59 4.0 Physical Exam General: Alert, Oriented X3, Cooperative Heart: Regular rate Lungs: Clear Abdomen: Soft, Other (midline incision with dry dressing, colostomy bag on left , 2 indwelling LASHAUN drains) Extremities: No edema, Normal pulses Skin: No significant lesion, Other Labs LABS Laboratory Tests Test 01/27/17 17:40 01/27/17 20:05 01/28/17 05:25 Potassium Level 4.5mmol/L (3.5-5.1) 4.1mmol/L (3.5-5.1) Creatine Kinase 108U/L (39-308) Urine Color Yellow Urine Clarity Clear Urine pH 6.0 Urine Specific [place] >=1.030 Urine Protein 30mg/dL (NEG-TRACE) Urine Glucose (UA) Negativemg/dL (NEG) Urine Ketones (Stick) Negativemg/dL (NEG) Urine Blood Moderate (NEG) Urine Nitrite Negative (NEG) Urine Bilirubin Negative (NEG) Urine Urobilinogen Dipstick 1.0mg/dL (0.2 mg/dL) Urine Leukocyte Esterase Negative (NEG) Urine RBC Occ/HPF (0-2) Urine WBC Occ/HPF (0-4) Urine Squamous Epithelial Cells Occ/LPF Urine Amorphous Sediment Present/HPF Urine Bacteria 0/HPF (0-FEW) Urine Mucus Slight/LPF Hemoglobin 13.7g/dL (13.0-17.5) Sodium Level 140mmol/L (136-145) Chloride Level 107mmol/L (98-107) Carbon Dioxide Level 26mmol/L (21-32) Anion Gap 7 (6-14) Blood Urea Nitrogen 26mg/dL (8-26) Creatinine 1.1mg/dL (0.7-1.3) Estimated GFR (Cockcroft-Gault) 66.0 Glucose Level 82mg/dL (70-99) Calcium Level 8.5mg/dL (8.5-10.1) Phosphorus Level 2.3mg/dL (2.6-4.7) Magnesium Level 1.8mg/dL (1.8-2.4) Albumin 1.9g/dL (3.4-5.0) Review of Systems Review of Systems feels this is his worst day yet emotionally. sally [email or web address]. pain controlled KAYLYNN CONNELL MD Jan 28, 2017 09:02
[2017-01-28] MEDS: NICOTINE 21MG PATCH. TD SCH (09:05)
[2017-01-28] MEDS: ENOXAPARIN ** NOTE DOSE ** SYRINGE SQ SCH (09:07)
[2017-01-28 09:59] LABS: BASO % 0 % (0-3); EOS % 0 % (0-3); HEMATOCRIT 42.8 % (39.0-53.0); LYMPH # 1.3 x10^3/uL (1.0-4.8); LYMPH % 9 % (24-48); MEAN CORPUSCULAR HEMOGLOBIN 34 pg (25-35); MEAN CORPUSCULAR HGB CONC 33 g/dL (31-37); MEAN CORPUSCULAR VOLUME 104 fL (79-100); MONO % 1 % (0-9); NEUT % 90 % (31-73); PLATELET COUNT 104 x10^3/uL (140-400); RED BLOOD COUNT 4.13 x10^6/uL (4.30-5.70); RED CELL DISTRIBUTION WIDTH 15.1 % (11.5-14.5); WHITE BLOOD COUNT 15.5 x10^3/uL (4.0-11.0)
[2017-01-28 10:24] LABS: PLT ESTIMATE DECREASED (ADEQUATE)
--- NOTE | 2017-01-28 11:07 | PDOC ---
SUBJECTIVE ROS F/up VELVET claims he is feeling better today; but remains drowsy CVS: no Orthopnea, no CP RESP: no SOB, no ESPINAL GI: no Nausea, no Vomiting : no Dysuria, no Urgency OBJECTIVE Vital Signs Vital Signs Date Time Temp Pulse Resp B/P Pulse Ox O2 Delivery O2 Flow Rate FiO2 01/28/17 10:00 96 22 85/65 98 Room Air 01/28/17 08:00 98.8 98.8 01/27/17 23:59 4.0 I & 0 Intake and Output 01/28/17 07:00 Output Total 2795 ml Balance -2795 ml Output Urine Total 1360 ml Gastric Drainage Total 1350 ml Drainage Total 85 ml PHYSICAL EXAM Physical Exam GEN: Awake, not fully Oriented or Alert per se, In no distress EYES: Vision Unchanged, Conjunctiva Normal EN: No EN Drainage, Mucous Membranes dryish NECK: no JVD, min JVP, Supple, no Thyromegaly CVS: S1S2, no Murmur, No Gallop, No Rub,no Edema RESP: no Rales, no Rhonchi,no Acc. Muscle Use GI: BS - ve, NO Bruit, + Tender, Non Distended; Ostomy in place : no CVA tenderness; no Suprapubic Tenderness Assessment & Plan ARF: VMN vs R/o ATN due to CAN or Hypotension/ ? Sepsis. Current FLuid and E- lyte status does not necessitate emergent need for Dialysis. Will re-evaluate for Dialysis in am ; No renal ABN noted on CT report. UO is acceptable ^K - resolved Oliguria - IVF boluses prn HypoTN: ? Hypovolemia vs Sepsis; IVF as ordered for now. Current BP meds held. Lowish Dewayne - improved Low Phos - replace; as per GS; TPN vs Oral feeding soon Will be available prn. COMMENT/RELEVANT DATA Meds Current Medications Medications (Trade) Dose Ordered Sig/Ofelia Start Time Stop Time Status Last Admin Dose Admin Bacitracin/Sodium Chloride (Iv Sodium Chloride 0.9% 500ml Bag) 500 ml @ 500 mls/hr 1X PERIOP ONCE 01/26/17 03:00 01/26/17 03:59 DC Cellulose 1 each STK-MED ONCE 01/26/17 03:38 01/26/17 03:39 DC 01/26/17 02:47 1 EACH Dexamethasone Sodium Phosphate (Decadron) 20 mg STK-MED ONCE 01/26/17 02:00 01/26/17 02:01 DC Diltiazem HCl 125 mg/Dextrose 125 ml @ 0 mls/hr CONT PRN 01/27/17 11:45 01/27/17 23:12 10 MLS/HR Diphenhydramine HCl (Benadryl) 25 mg PRN Q6HRS PRN 01/26/17 05:45 01/27/17 18:18 25 MG Enoxaparin Sodium (Lovenox 40mg Syringe) 40 mg Q24H 01/26/17 09:00 01/27/17 15:59 DC 01/27/17 08:48 40 MG Enoxaparin Sodium (Lovenox Per Pharmacy Treatment Dosing) 1 each PRN DAILY PRN 01/27/17 16:00 Enoxaparin Sodium 75 mg 75 mg Q12HR 01/27/17 18:00 01/28/17 09:07 75 MG Esmolol HCl (Brevibloc) 100 mg STK-MED ONCE 01/26/17 04:28 01/26/17 04:29 DC Famotidine (Pepcid) 20 mg BID 01/26/17 09:00 01/27/17 08:10 DC 01/26/17 21:22 20 MG Famotidine 20 mg 20 mg QHS 01/27/17 21:00 01/27/17 21:11 20 MG Fentanyl Citrate (Fentanyl 2ml Vial) 50 mcg PRN Q5MIN PRN 01/26/17 02:15 01/27/17 02:14 DC Fentanyl Citrate 100 mcg 100 mcg STK-MED ONCE 01/26/17 05:09 01/26/17 05:10 DC Glycopyrrolate (Robinul) 1 mg STK-MED ONCE 01/26/17 04:23 01/26/17 04:24 DC Hydrocortisone Sodium Succinate (Solu-Cortef) 100 mg STK-MED ONCE 01/26/17 02:24 01/26/17 02:25 DC Hydromorphone HCl (Dilaudid Standard [employer]INATION [employer]IST) 30 ml @ 0 mls/hr CONT PRN PRN 01/26/17 05:45 01/28/17 01:36 0.3 MLS/HR Hydromorphone HCl (Dilaudid) 1 mg PRN Q1HR PRN 01/26/17 05:45 Hydromorphone HCl 1 mg 1 mg 1X ONCE 01/26/17 02:00 01/26/17 02:01 DC Info (Anti-Coagulation Monitoring By Pharmacy) 1 each PRN DAILY PRN 01/28/17 07:45 01/28/17 07:45 1 EACH Info 1 each 1 each PRN DAILY PRN 01/25/17 23:45 01/27/17 23:44 DC Iohexol (Omnipaque 300 Mg/ml) 75 ml 1X ONCE 01/26/17 00:00 01/26/17 00:01 DC 01/25/17 23:55 75 ML Lactated Ringer's (Iv Lactated Ringers) 1,000 ml @ 30 mls/hr Q24H 01/26/17 02:09 01/26/17 14:08 DC Lidocaine HCl 2 ml 1X PRN PRN 01/26/17 02:15 01/27/17 02:14 DC Magnesium Sulfate/ Dextrose 50 ml @ 25 mls/hr PRN DAILY PRN 01/27/17 17:45 Metronidazole (FLAGYL 500Mmg PREMIX) 100 ml @ 100 mls/hr Q12HR 01/26/17 09:00 01/26/17 09:00 DC Morphine Sulfate 1 mg 1 mg PRN Q10MIN PRN 01/26/17 02:15 01/27/17 02:14 DC Neostigmine Methylsulfate 5 mg STK-MED ONCE 01/26/17 04:23 01/26/17 04:24 DC Nicotine 1 patch 1 patch DAILY 01/26/17 09:00 01/28/17 09:05 1 PATCH Ondansetron HCl (Zofran) 4 mg PRN Q6HRS PRN 01/26/17 05:45 Ondansetron HCl 4 mg 4 mg STK-MED ONCE 01/26/17 02:00 01/26/17 02:01 DC Phenylephrine HCl (Bhargav-Synephrine Inj) 10 mg STK-MED ONCE 01/26/17 03:32 01/26/17 03:33 DC Piperacillin Sod/ Tazobactam Sod 3.375 gm/Sodium Chloride 50 ml @ 100 mls/hr Q6HRS 01/26/17 08:00 01/28/17 06:01 100 MLS/HR Piperacillin Sod/ Tazobactam Sod/ Sodium Chloride (Zosyn/Iv Sodium Chloride 0.9% 50ml) 50 ml @ 100 mls/hr 1X ONCE 01/26/17 02:00 01/26/17 02:29 DC 01/26/17 02:43 100 MLS/HR Potassium Chloride/Sodium Chloride 1,000 ml @ 100 mls/hr Q10H 01/26/17 06:00 01/27/17 13:26 DC 01/26/17 21:24 100 MLS/HR Prochlorperazine Edisylate 5 mg 5 mg PACU PRN PRN 01/26/17 02:15 01/27/17 02:14 DC Propofol (Diprivan) 20 ml @ As Directed STK-MED ONCE 01/26/17 02:00 01/26/17 02:01 DC Rocuronium Gallion (Zemuron) 50 mg STK-MED ONCE 01/26/17 03:36 01/26/17 03:37 DC Sevoflurane (Ultane) 90 ml STK-MED ONCE 01/26/17 04:23 01/26/17 04:24 DC Sodium Chloride (Iv Sodium Chloride 0.45%) 1,000 ml @ 100 mls/hr 1X ONCE 01/27/17 13:30 01/27/17 23:29 DC 01/27/17 13:30 100 MLS/HR Sodium Chloride (Iv Sodium Chloride 0.9% 500ml Bag) 500 ml @ 0 mls/hr QID PRN 01/27/17 17:45 Sodium Chloride (Iv Sodium Chloride 0.9% 1000ml Bag) 1,000 ml @ 100 mls/hr 1X ONCE 01/26/17 01:00 01/26/17 10:59 DC 01/26/17 00:53 100 MLS/HR Sodium Chloride 3 ml 3 ml QSHIFT PRN 01/26/17 05:45 Succinylcholine Chloride (Anectine) 200 mg STK-MED ONCE 01/26/17 02:00 01/26/17 02:01 DC Throat Lozenges (Cepacol Sore Throat Lozenge) 1 west PRN Q2HRS PRN 01/26/17 05:45 Throat Lozenges (Chloraseptic) 1 spray PRN Q2HR PRN 01/26/17 05:45 Vancomycin HCl 1 each 1X ONCE 01/27/17 08:30 01/27/17 08:31 DC 01/27/17 08:30 1 EACH Vancomycin HCl 1 each 1 each 1X ONCE 01/28/17 21:30 01/28/17 21:31 Vancomycin HCl/ Sodium Chloride (Iv Sodium Chloride 0.9% 250ml) 250 ml @ 167 mls/hr Q24H 01/27/17 22:00 01/27/17 21:23 167 MLS/HR Vancomycin HCl/ Sodium Chloride (Iv Sodium Chloride 0.9% 500ml Bag) 500 ml @ 250 mls/hr 1X ONCE 01/26/17 08:00 01/26/17 09:59 DC 01/26/17 09:02 250 MLS/HR Lab Laboratory Tests Test 01/27/17 17:40 01/27/17 20:05 01/28/17 05:25 Potassium Level 4.5mmol/L (3.5-5.1) 4.1mmol/L (3.5-5.1) Creatine Kinase 108U/L (39-308) Urine Color Yellow Urine Clarity Clear Urine pH 6.0 Urine Specific [place] >=1.030 Urine Protein 30mg/dL (NEG-TRACE) Urine Glucose (UA) Negativemg/dL (NEG) Urine Ketones (Stick) Negativemg/dL (NEG) Urine Blood Moderate (NEG) Urine Nitrite Negative (NEG) Urine Bilirubin Negative (NEG) Urine Urobilinogen Dipstick 1.0mg/dL (0.2 mg/dL) Urine Leukocyte Esterase Negative (NEG) Urine RBC Occ/HPF (0-2) Urine WBC Occ/HPF (0-4) Urine Squamous Epithelial Cells Occ/LPF Urine Amorphous Sediment Present/HPF Urine Bacteria 0/HPF (0-FEW) Urine Mucus Slight/LPF White Blood Count 15.5x10^3/uL (4.0-11.0) Red Blood Count 4.13x10^6/uL (4.30-5.70) Hemoglobin 14.0g/dL (13.0-17.5) Hematocrit 42.8% (39.0-53.0) Mean Corpuscular Volume 104fL (79-100) Mean Corpuscular Hemoglobin 34pg (25-35) Mean Corpuscular Hemoglobin Concent 33g/dL (31-37) Red Cell Distribution Width 15.1% (11.5-14.5) Platelet Count 104x10^3/uL (140-400) Neutrophils (%) (Auto) 90% (31-73) Lymphocytes (%) (Auto) 9% (24-48) Monocytes (%) (Auto) 1% (0-9) Eosinophils (%) (Auto) 0% (0-3) Basophils (%) (Auto) 0% (0-3) Neutrophils # (Auto) 13.9x10^3uL (1.8-7.7) Lymphocytes # (Auto) 1.3x10^3/uL (1.0-4.8) Monocytes # (Auto) 0.2x10^3/uL (0.0-1.1) Eosinophils # (Auto) 0.0x10^3/uL (0.0-0.7) Basophils # (Auto) 0.0x10^3/uL (0.0-0.2) Segmented Neutrophils % 38% (35-66) Band Neutrophils % 56% (0-9) Lymphocytes % 3% (24-48) Atypical Lymphocytes % (Manual) 1% (0-0) Metamyelocytes % 2% (0-0) Platelet Estimate Decreased (ADEQUATE) Large Platelets Present Sodium Level 140mmol/L (136-145) Chloride Level 107mmol/L (98-107) Carbon Dioxide Level 26mmol/L (21-32) Anion Gap 7 (6-14) Blood Urea Nitrogen 26mg/dL (8-26) Creatinine 1.1mg/dL (0.7-1.3) Estimated GFR (Cockcroft-Gault) 66.0 Glucose Level 82mg/dL (70-99) Calcium Level 8.5mg/dL (8.5-10.1) Phosphorus Level 2.3mg/dL (2.6-4.7) Magnesium Level 1.8mg/dL (1.8-2.4) Albumin 1.9g/dL (3.4-5.0) ZAC CANTU MD Jan 28, 2017 11:07
--- NOTE | 2017-01-28 11:09 | PDOC ---
SURGICAL PROGRESS NOTE Subjective sleeping in the recliner awakens easily no new complaints adequate pain control would like NG out no nausea with suction off for last two hours Vital Signs Vital Signs Date Time Temp Pulse Resp B/P Pulse Ox O2 Delivery O2 Flow Rate FiO2 01/28/17 10:00 96 22 85/65 98 Room Air 01/28/17 08:00 98.8 98.8 01/27/17 23:59 4.0 I&O Intake and Output 01/28/17 07:00 Output Total 2795 ml Balance -2795 ml Output Urine Total 1360 ml Gastric Drainage Total 1350 ml Drainage Total 85 ml PATIENT HAS A YANCEY: Yes General: Alert, Oriented X3, Cooperative, No acute distress Abdomen: Soft, Other (stoma viable, dressing dry) Labs Laboratory Tests Test 01/27/17 04:45 01/27/17 08:38 01/27/17 17:40 01/27/17 20:05 White Blood Count 14.0x10^3/uL (4.0-11.0) Red Blood Count 4.61x10^6/uL (4.30-5.70) Hemoglobin 16.0g/dL (13.0-17.5) Hematocrit 48.6% (39.0-53.0) Mean Corpuscular Volume 106fL (79-100) Mean Corpuscular Hemoglobin 35pg (25-35) Mean Corpuscular Hemoglobin Concent 33g/dL (31-37) Red Cell Distribution Width 15.0% (11.5-14.5) Platelet Count 115x10^3/uL (140-400) Neutrophils (%) (Auto) 90% (31-73) Lymphocytes (%) (Auto) 7% (24-48) Monocytes (%) (Auto) 3% (0-9) Eosinophils (%) (Auto) 0% (0-3) Basophils (%) (Auto) 0% (0-3) Neutrophils # (Auto) 12.6x10^3uL (1.8-7.7) Lymphocytes # (Auto) 1.0x10^3/uL (1.0-4.8) Monocytes # (Auto) 0.4x10^3/uL (0.0-1.1) Eosinophils # (Auto) 0.0x10^3/uL (0.0-0.7) Basophils # (Auto) 0.0x10^3/uL (0.0-0.2) Segmented Neutrophils % 22% (35-66) Band Neutrophils % 47% (0-9) Lymphocytes % 13% (24-48) Monocytes % 6% (0-10) Metamyelocytes % 7% (0-0) Myelocytes % 5% (0-0) Platelet Estimate Decreased (ADEQUATE) Giant Platelets Present Polychromasia Sodium Level 143mmol/L (136-145) Potassium Level 6.0mmol/L (3.5-5.1) 4.5mmol/L (3.5-5.1) Chloride Level 109mmol/L (98-107) Carbon Dioxide Level 25mmol/L (21-32) Anion Gap 9 (6-14) Blood Urea Nitrogen 37mg/dL (8-26) Creatinine 1.6mg/dL (0.7-1.3) Estimated GFR (Cockcroft-Gault) 42.8 Glucose Level 109mg/dL (70-99) Calcium Level 7.8mg/dL (8.5-10.1) Thyroid Stimulating Hormone (TSH) 1.715uIU/mL (0.358-3.74) Vancomycin Level Trough 19.2mcg/mL (10.0-20.0) Vancomycin Last Dose Date 01/27/17 Vancomycin Last Dose Time 0900 Creatine Kinase 108U/L (39-308) Urine Color Yellow Urine Clarity Clear Urine pH 6.0 Urine Specific [place] >=1.030 Urine Protein 30mg/dL (NEG-TRACE) Urine Glucose (UA) Negativemg/dL (NEG) Urine Ketones (Stick) Negativemg/dL (NEG) Urine Blood Moderate (NEG) Urine Nitrite Negative (NEG) Urine Bilirubin Negative (NEG) Urine Urobilinogen Dipstick 1.0mg/dL (0.2 mg/dL) Urine Leukocyte Esterase Negative (NEG) Urine RBC Occ/HPF (0-2) Urine WBC Occ/HPF (0-4) Urine Squamous Epithelial Cells Occ/LPF Urine Amorphous Sediment Present/HPF Urine Bacteria 0/HPF (0-FEW) Urine Mucus Slight/LPF Test 01/28/17 05:25 White Blood Count 15.5x10^3/uL (4.0-11.0) Red Blood Count 4.13x10^6/uL (4.30-5.70) Hemoglobin 14.0g/dL (13.0-17.5) Hematocrit 42.8% (39.0-53.0) Mean Corpuscular Volume 104fL (79-100) Mean Corpuscular Hemoglobin 34pg (25-35) Mean Corpuscular Hemoglobin Concent 33g/dL (31-37) Red Cell Distribution Width 15.1% (11.5-14.5) Platelet Count 104x10^3/uL (140-400) Neutrophils (%) (Auto) 90% (31-73) Lymphocytes (%) (Auto) 9% (24-48) Monocytes (%) (Auto) 1% (0-9) Eosinophils (%) (Auto) 0% (0-3) Basophils (%) (Auto) 0% (0-3) Neutrophils # (Auto) 13.9x10^3uL (1.8-7.7) Lymphocytes # (Auto) 1.3x10^3/uL (1.0-4.8) Monocytes # (Auto) 0.2x10^3/uL (0.0-1.1) Eosinophils # (Auto) 0.0x10^3/uL (0.0-0.7) Basophils # (Auto) 0.0x10^3/uL (0.0-0.2) Segmented Neutrophils % 38% (35-66) Band Neutrophils % 56% (0-9) Lymphocytes % 3% (24-48) Atypical Lymphocytes % (Manual) 1% (0-0) Metamyelocytes % 2% (0-0) Platelet Estimate Decreased (ADEQUATE) Large Platelets Present Sodium Level 140mmol/L (136-145) Potassium Level 4.1mmol/L (3.5-5.1) Chloride Level 107mmol/L (98-107) Carbon Dioxide Level 26mmol/L (21-32) Anion Gap 7 (6-14) Blood Urea Nitrogen 26mg/dL (8-26) Creatinine 1.1mg/dL (0.7-1.3) Estimated GFR (Cockcroft-Gault) 66.0 Glucose Level 82mg/dL (70-99) Calcium Level 8.5mg/dL (8.5-10.1) Phosphorus Level 2.3mg/dL (2.6-4.7) Magnesium Level 1.8mg/dL (1.8-2.4) Albumin 1.9g/dL (3.4-5.0) Laboratory Tests Test 01/27/17 17:40 01/27/17 20:05 01/28/17 05:25 Potassium Level 4.5mmol/L (3.5-5.1) 4.1mmol/L (3.5-5.1) Creatine Kinase 108U/L (39-308) Urine Color Yellow Urine Clarity Clear Urine pH 6.0 Urine Specific [place] >=1.030 Urine Protein 30mg/dL (NEG-TRACE) Urine Glucose (UA) Negativemg/dL (NEG) Urine Ketones (Stick) Negativemg/dL (NEG) Urine Blood Moderate (NEG) Urine Nitrite Negative (NEG) Urine Bilirubin Negative (NEG) Urine Urobilinogen Dipstick 1.0mg/dL (0.2 mg/dL) Urine Leukocyte Esterase Negative (NEG) Urine RBC Occ/HPF (0-2) Urine WBC Occ/HPF (0-4) Urine Squamous Epithelial Cells Occ/LPF Urine Amorphous Sediment Present/HPF Urine Bacteria 0/HPF (0-FEW) Urine Mucus Slight/LPF White Blood Count 15.5x10^3/uL (4.0-11.0) Red Blood Count 4.13x10^6/uL (4.30-5.70) Hemoglobin 14.0g/dL (13.0-17.5) Hematocrit 42.8% (39.0-53.0) Mean Corpuscular Volume 104fL (79-100) Mean Corpuscular Hemoglobin 34pg (25-35) Mean Corpuscular Hemoglobin Concent 33g/dL (31-37) Red Cell Distribution Width 15.1% (11.5-14.5) Platelet Count 104x10^3/uL (140-400) Neutrophils (%) (Auto) 90% (31-73) Lymphocytes (%) (Auto) 9% (24-48) Monocytes (%) (Auto) 1% (0-9) Eosinophils (%) (Auto) 0% (0-3) Basophils (%) (Auto) 0% (0-3) Neutrophils # (Auto) 13.9x10^3uL (1.8-7.7) Lymphocytes # (Auto) 1.3x10^3/uL (1.0-4.8) Monocytes # (Auto) 0.2x10^3/uL (0.0-1.1) Eosinophils # (Auto) 0.0x10^3/uL (0.0-0.7) Basophils # (Auto) 0.0x10^3/uL (0.0-0.2) Segmented Neutrophils % 38% (35-66) Band Neutrophils % 56% (0-9) Lymphocytes % 3% (24-48) Atypical Lymphocytes % (Manual) 1% (0-0) Metamyelocytes % 2% (0-0) Platelet Estimate Decreased (ADEQUATE) Large Platelets Present Sodium Level 140mmol/L (136-145) Chloride Level 107mmol/L (98-107) Carbon Dioxide Level 26mmol/L (21-32) Anion Gap 7 (6-14) Blood Urea Nitrogen 26mg/dL (8-26) Creatinine 1.1mg/dL (0.7-1.3) Estimated GFR (Cockcroft-Gault) 66.0 Glucose Level 82mg/dL (70-99) Calcium Level 8.5mg/dL (8.5-10.1) Phosphorus Level 2.3mg/dL (2.6-4.7) Magnesium Level 1.8mg/dL (1.8-2.4) Albumin 1.9g/dL (3.4-5.0) Problem List Problems Medical Problems: (1) Perforated abdominal viscus Status: Acute Assessment/Plan perforated colon, s/p resection leukocytosis, Hb down a little check NG for residual in a couple hours, if small, d/c tube and offer clears increase activity follow Hb Problems: RON GROSS MD Jan 28, 2017 11:09
--- NOTE | 2017-01-28 12:11 | PDOC ---
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 [employer] SUPERVISOR 01/28/17 1211: CARDIO Progress Notes Date and Time Date of Service 01/28/17 Time of Evaluation 1145 Subjective Subjective: No Chest Pain, No shortness of breath, Other (mild abdominal pain) Vitals Vitals Vital Signs Date Time Temp Pulse Resp B/P Pulse Ox O2 Delivery O2 Flow Rate FiO2 01/28/17 10:00 96 22 85/65 98 Room Air 01/28/17 08:00 98.8 98.8 01/27/17 23:59 4.0 Weight Weight [ ] Input and Output Intake and Output Intake and Output 01/28/17 07:00 Output Total 2795 ml Balance -2795 ml Output Urine Total 1360 ml Gastric Drainage Total 1350 ml Drainage Total 85 ml Laboratory Labs Laboratory Tests Test 01/27/17 17:40 01/27/17 20:05 01/28/17 05:25 Potassium Level 4.5mmol/L (3.5-5.1) 4.1mmol/L (3.5-5.1) Creatine Kinase 108U/L (39-308) Urine Color Yellow Urine Clarity Clear Urine pH 6.0 Urine Specific [place] >=1.030 Urine Protein 30mg/dL (NEG-TRACE) Urine Glucose (UA) Negativemg/dL (NEG) Urine Ketones (Stick) Negativemg/dL (NEG) Urine Blood Moderate (NEG) Urine Nitrite Negative (NEG) Urine Bilirubin Negative (NEG) Urine Urobilinogen Dipstick 1.0mg/dL (0.2 mg/dL) Urine Leukocyte Esterase Negative (NEG) Urine RBC Occ/HPF (0-2) Urine WBC Occ/HPF (0-4) Urine Squamous Epithelial Cells Occ/LPF Urine Amorphous Sediment Present/HPF Urine Bacteria 0/HPF (0-FEW) Urine Mucus Slight/LPF White Blood Count 15.5x10^3/uL (4.0-11.0) Red Blood Count 4.13x10^6/uL (4.30-5.70) Hemoglobin 14.0g/dL (13.0-17.5) Hematocrit 42.8% (39.0-53.0) Mean Corpuscular Volume 104fL (79-100) Mean Corpuscular Hemoglobin 34pg (25-35) Mean Corpuscular Hemoglobin Concent 33g/dL (31-37) Red Cell Distribution Width 15.1% (11.5-14.5) Platelet Count 104x10^3/uL (140-400) Neutrophils (%) (Auto) 90% (31-73) Lymphocytes (%) (Auto) 9% (24-48) Monocytes (%) (Auto) 1% (0-9) Eosinophils (%) (Auto) 0% (0-3) Basophils (%) (Auto) 0% (0-3) Neutrophils # (Auto) 13.9x10^3uL (1.8-7.7) Lymphocytes # (Auto) 1.3x10^3/uL (1.0-4.8) Monocytes # (Auto) 0.2x10^3/uL (0.0-1.1) Eosinophils # (Auto) 0.0x10^3/uL (0.0-0.7) Basophils # (Auto) 0.0x10^3/uL (0.0-0.2) Segmented Neutrophils % 38% (35-66) Band Neutrophils % 56% (0-9) Lymphocytes % 3% (24-48) Atypical Lymphocytes % (Manual) 1% (0-0) Metamyelocytes % 2% (0-0) Platelet Estimate Decreased (ADEQUATE) Large Platelets Present Sodium Level 140mmol/L (136-145) Chloride Level 107mmol/L (98-107) Carbon Dioxide Level 26mmol/L (21-32) Anion Gap 7 (6-14) Blood Urea Nitrogen 26mg/dL (8-26) Creatinine 1.1mg/dL (0.7-1.3) Estimated GFR (Cockcroft-Gault) 66.0 Glucose Level 82mg/dL (70-99) Calcium Level 8.5mg/dL (8.5-10.1) Phosphorus Level 2.3mg/dL (2.6-4.7) Magnesium Level 1.8mg/dL (1.8-2.4) Albumin 1.9g/dL (3.4-5.0) Microbiology Micro Microbiology 01/26/17 Gram Stain - Final, Complete Physical Exam HEENT: Neck Supple W Full Motion, Other (right nare NGT) Chest: Symmetric LUNGS: Clear to Auscultation Heart: S1S2, no gallops, irregularly irregular, other (AFIB rate 100-110 post ambulation ) Abdomen: Other (colostomy ) Extremities: 2+ Dorsalis Pedis, No Edema, No Calf Tenderness Neurology: alert, oriented, follow commands Assessment Assessment 1. Atrial fibrillation with RVR, paroxysmal 2. Perforated viscus, s/p resection with end colostomy 3. Crohn's Dx 4. VELVET Recommendations Echo with normal LV function Cardizem gtt held overnight due to hypotension; Rate has been controlled per review of VS. Presently mildly elevated post ambulation. Remains NPO. Consider IV dig if HR consistently elevated as BP is marginal Continue Lovenox at DVT prophylaxis dosing. Consider OAC, for stroke prevention, once taking PO. Supportive care. KATIE PARK MD 01/28/17 4062: CARDIO Progress Notes Plan Plan Patient seen and examined. Agree with nurse practitioner note. No acute events Patient denies any chest pain. Currently with irregular heart rhythm and mildly tachycardic. Medication changes as noted above. Supportive care for the moment. When he gets closer to discharge if he is still in atrial fibrillation we could reconsider anticoagulation on an outpatient basis and/or cardioversion. Suspect that his atrial fibrillation is secondary to his acute stressed state. 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 APRN Jan 28, 2017 12:11 KATIE PARK MD Jan 28, 2017 18:48
[2017-01-28 14:19] LABS: HEMATOCRIT 42.1 % (39.0-53.0); HEMOGLOBIN 14.1 g/dL (13.0-17.5); RED BLOOD COUNT 4.09 x10^6/uL (4.30-5.70); RED CELL DISTRIBUTION WIDTH 15.2 % (11.5-14.5); WHITE BLOOD COUNT 15.5 x10^3/uL (4.0-11.0)
[2017-01-28 14:21] LABS: CALCIUM 8.4 mg/dL (8.5-10.1); GFR 73.7
[2017-01-28] MEDS: VANCOMYCIN PER PHARMACY MC PRN ×2 (14:40→22:01)
[2017-01-28] MEDS: VANCOMYCIN 1.25 GM in IV NORMAL SALINE 250ML 250 ML IV SCH (21:49)
[2017-01-28] MEDS: FAMOTIDINE 20 MG/2 ML VIAL IVP SCH (21:49)
[2017-01-29] VITALS (19 sets, daily range): BP systolic 78–115; BP diastolic 60–86
[2017-01-29] MEDS: PIPERACILLIN/TAZOBACTAM 3.375 GM in IV NORMAL SALINE 50ML 50 ML IV SCH ×6 (01:02→18:37)
[2017-01-29 05:36] LABS: BASO % 0 % (0-3); EOS % 0 % (0-3); HEMATOCRIT 43.2 % (39.0-53.0); HEMOGLOBIN 14.4 g/dL (13.0-17.5); LYMPH # 1.2 x10^3/uL (1.0-4.8); LYMPH % 8 % (24-48); MEAN CORPUSCULAR HEMOGLOBIN 34 pg (25-35); MEAN CORPUSCULAR HGB CONC 33 g/dL (31-37); MEAN CORPUSCULAR VOLUME 102 fL (79-100); MONO % 3 % (0-9); NEUT % 89 % (31-73); PLATELET COUNT 94 x10^3/uL (140-400); RED BLOOD COUNT 4.22 x10^6/uL (4.30-5.70); RED CELL DISTRIBUTION WIDTH 14.7 % (11.5-14.5); WHITE BLOOD COUNT 15.4 x10^3/uL (4.0-11.0)
[2017-01-29 06:21] LABS: ALBUMIN 1.8 g/dL (3.4-5.0); CALCIUM 8.6 mg/dL (8.5-10.1); CREATININE 0.9 mg/dL (0.7-1.3); GFR 83.2; PHOSPHORUS 1.5 mg/dL (2.6-4.7); POTASSIUM 3.5 mmol/L (3.5-5.1)
--- NOTE | 2017-01-29 07:54 | PDOC ---
Infectious Disease Note Subjective Subjective awake in chair, feeling better ROS ROS GEN: Denies fevers, chills, sweats HEENT: Denies blurred vision, sore throat CV: Denies chest pain RESP: Denies shortness of air, cough GI: Denies n/v/d NEURO: Denies confusion, dizziness MSK: Denies weakness, joint pain/swelling Vital Sign Vital Signs Vital Signs Date Time Temp Pulse Resp B/P Pulse Ox O2 Delivery O2 Flow Rate FiO2 01/29/17 07:00 102 12 86/60 97 Room Air 01/29/17 04:00 98.2 98.2 01/28/17 08:00 4.0 Physical Exam PHYSICAL EXAM GENERAL: NAD, Alert HEENT: PERRL, OC/OP NECK: Supple, no JVD, no LN LUNGS: Clear HEART: S1S2, no gallop, no murmur ABD: Soft, NT, no organomegaly, no rebound,, incision good EXT: No edema, no cyanosis PHYSICIAN'S AIDE: Alert, oriented x 3, no focal neurologic deficit SKIN: No rash IV: ok Labs Lab Laboratory Tests Test 01/28/17 13:50 01/28/17 21:15 01/29/17 04:40 White Blood Count 15.5x10^3/uL (4.0-11.0) 15.4x10^3/uL (4.0-11.0) Red Blood Count 4.09x10^6/uL (4.30-5.70) 4.22x10^6/uL (4.30-5.70) Hemoglobin 14.1g/dL (13.0-17.5) 14.4g/dL (13.0-17.5) Hematocrit 42.1% (39.0-53.0) 43.2% (39.0-53.0) Mean Corpuscular Volume 103fL (79-100) 102fL (79-100) Mean Corpuscular Hemoglobin 34pg (25-35) 34pg (25-35) Mean Corpuscular Hemoglobin Concent 33g/dL (31-37) 33g/dL (31-37) Red Cell Distribution Width 15.2% (11.5-14.5) 14.7% (11.5-14.5) Platelet Count 98x10^3/uL (140-400) 94x10^3/uL (140-400) Sodium Level 139mmol/L (136-145) 138mmol/L (136-145) Potassium Level 4.0mmol/L (3.5-5.1) 3.5mmol/L (3.5-5.1) Chloride Level 106mmol/L (98-107) 103mmol/L (98-107) Carbon Dioxide Level 27mmol/L (21-32) 29mmol/L (21-32) Anion Gap 6 (6-14) 6 (6-14) Blood Urea Nitrogen 23mg/dL (8-26) 15mg/dL (8-26) Creatinine 1.0mg/dL (0.7-1.3) 0.9mg/dL (0.7-1.3) Estimated GFR (Cockcroft-Gault) 73.7 83.2 Glucose Level 91mg/dL (70-99) 85mg/dL (70-99) Calcium Level 8.4mg/dL (8.5-10.1) 8.6mg/dL (8.5-10.1) Vancomycin Level Trough 7.9mcg/mL (10.0-20.0) Vancomycin Last Dose Date 01/27/17 Vancomycin Last Dose Time 2200 Neutrophils (%) (Auto) 89% (31-73) Lymphocytes (%) (Auto) 8% (24-48) Monocytes (%) (Auto) 3% (0-9) Eosinophils (%) (Auto) 0% (0-3) Basophils (%) (Auto) 0% (0-3) Neutrophils # (Auto) 13.8x10^3uL (1.8-7.7) Lymphocytes # (Auto) 1.2x10^3/uL (1.0-4.8) Monocytes # (Auto) 0.4x10^3/uL (0.0-1.1) Eosinophils # (Auto) 0.0x10^3/uL (0.0-0.7) Basophils # (Auto) 0.0x10^3/uL (0.0-0.2) Phosphorus Level 1.5mg/dL (2.6-4.7) Magnesium Level 1.8mg/dL (1.8-2.4) Albumin 1.8g/dL (3.4-5.0) Objective Assessment Perforated colon s/p surgery Peritonitis Sepsis with hypotension Crohns disease on remicaid Recent pneumonia smoker Plan Plan of Care zosyn and vanc supportive care pt/ot culture still pending KELSIE CANTU MD Jan 29, 2017 07:54
[2017-01-29] MEDS: VANCOMYCIN PER PHARMACY MC PRN (08:16)
--- NOTE | 2017-01-29 08:39 | PDOC ---
PROGRESS NOTES Chief Complaint Chief Complaint Bowel perf ASSESSMENT AND PLAN: 1. Colonic perforation: s/p emergent resection of splenic flexure with Paiz pouch on 01/26 2. Peritonitis, fecaloid material intra op 3. Crohn's: on remicade on O/p basis, i.e. immunosuppressed 4. VELVET: recovering. 5. Hyperkalemia: resolved 6. Aflutter: new. resolved (Transient) 6. Thrombocytopenia: resolved 7. Anemia, macrocytic: 8. Leukocytosis: reactive; 9. Agitation: personality vs EtOH W/D. 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 Vitals Vitals Vital Signs Date Time Temp Pulse Resp B/P Pulse Ox O2 Delivery O2 Flow Rate FiO2 01/29/17 08:00 98.4 111 30 93/70 95 Room Air 98.4 01/28/17 08:00 4.0 Physical Exam General: Alert, Oriented X3, Cooperative, No acute distress Heart: Regular rate Lungs: Clear Abdomen: Soft, Other (stoma viable, dressing dry) Extremities: No edema, Normal pulses Skin: No significant lesion, Other Labs LABS Laboratory Tests Test 01/28/17 13:50 01/28/17 21:15 01/29/17 04:40 White Blood Count 15.5x10^3/uL (4.0-11.0) 15.4x10^3/uL (4.0-11.0) Red Blood Count 4.09x10^6/uL (4.30-5.70) 4.22x10^6/uL (4.30-5.70) Hemoglobin 14.1g/dL (13.0-17.5) 14.4g/dL (13.0-17.5) Hematocrit 42.1% (39.0-53.0) 43.2% (39.0-53.0) Mean Corpuscular Volume 103fL (79-100) 102fL (79-100) Mean Corpuscular Hemoglobin 34pg (25-35) 34pg (25-35) Mean Corpuscular Hemoglobin Concent 33g/dL (31-37) 33g/dL (31-37) Red Cell Distribution Width 15.2% (11.5-14.5) 14.7% (11.5-14.5) Platelet Count 98x10^3/uL (140-400) 94x10^3/uL (140-400) Sodium Level 139mmol/L (136-145) 138mmol/L (136-145) Potassium Level 4.0mmol/L (3.5-5.1) 3.5mmol/L (3.5-5.1) Chloride Level 106mmol/L (98-107) 103mmol/L (98-107) Carbon Dioxide Level 27mmol/L (21-32) 29mmol/L (21-32) Anion Gap 6 (6-14) 6 (6-14) Blood Urea Nitrogen 23mg/dL (8-26) 15mg/dL (8-26) Creatinine 1.0mg/dL (0.7-1.3) 0.9mg/dL (0.7-1.3) Estimated GFR (Cockcroft-Gault) 73.7 83.2 Glucose Level 91mg/dL (70-99) 85mg/dL (70-99) Calcium Level 8.4mg/dL (8.5-10.1) 8.6mg/dL (8.5-10.1) Vancomycin Level Trough 7.9mcg/mL (10.0-20.0) Vancomycin Last Dose Date 01/27/17 Vancomycin Last Dose Time 2200 Neutrophils (%) (Auto) 89% (31-73) Lymphocytes (%) (Auto) 8% (24-48) Monocytes (%) (Auto) 3% (0-9) Eosinophils (%) (Auto) 0% (0-3) Basophils (%) (Auto) 0% (0-3) Neutrophils # (Auto) 13.8x10^3uL (1.8-7.7) Lymphocytes # (Auto) 1.2x10^3/uL (1.0-4.8) Monocytes # (Auto) 0.4x10^3/uL (0.0-1.1) Eosinophils # (Auto) 0.0x10^3/uL (0.0-0.7) Basophils # (Auto) 0.0x10^3/uL (0.0-0.2) Phosphorus Level 1.5mg/dL (2.6-4.7) Magnesium Level 1.8mg/dL (1.8-2.4) Albumin 1.8g/dL (3.4-5.0) Review of Systems Review of Systems post op pain, hungry, no cp, soa Assessment and Plan Assessmemt and Plan Problems Medical Problems: (1) Perforated abdominal viscus Status: Acute Problems: Comment Review of Relevant I have reviewed the following items manuel (where applicable) has been applied. Labs Laboratory Tests Test 01/27/17 08:38 01/27/17 17:40 01/27/17 20:05 01/28/17 05:25 Vancomycin Level Trough 19.2mcg/mL (10.0-20.0) Vancomycin Last Dose Date 01/27/17 Vancomycin Last Dose Time 0900 Potassium Level 4.5mmol/L (3.5-5.1) 4.1mmol/L (3.5-5.1) Creatine Kinase 108U/L (39-308) Urine Color Yellow Urine Clarity Clear Urine pH 6.0 Urine Specific [place] >=1.030 Urine Protein 30mg/dL (NEG-TRACE) Urine Glucose (UA) Negativemg/dL (NEG) Urine Ketones (Stick) Negativemg/dL (NEG) Urine Blood Moderate (NEG) Urine Nitrite Negative (NEG) Urine Bilirubin Negative (NEG) Urine Urobilinogen Dipstick 1.0mg/dL (0.2 mg/dL) Urine Leukocyte Esterase Negative (NEG) Urine RBC Occ/HPF (0-2) Urine WBC Occ/HPF (0-4) Urine Squamous Epithelial Cells Occ/LPF Urine Amorphous Sediment Present/HPF Urine Bacteria 0/HPF (0-FEW) Urine Mucus Slight/LPF Urine Random Sodium 91mmol/L (Not Estab.) White Blood Count 15.5x10^3/uL (4.0-11.0) Red Blood Count 4.13x10^6/uL (4.30-5.70) Hemoglobin 14.0g/dL (13.0-17.5) Hematocrit 42.8% (39.0-53.0) Mean Corpuscular Volume 104fL (79-100) Mean Corpuscular Hemoglobin 34pg (25-35) Mean Corpuscular Hemoglobin Concent 33g/dL (31-37) Red Cell Distribution Width 15.1% (11.5-14.5) Platelet Count 104x10^3/uL (140-400) Neutrophils (%) (Auto) 90% (31-73) Lymphocytes (%) (Auto) 9% (24-48) Monocytes (%) (Auto) 1% (0-9) Eosinophils (%) (Auto) 0% (0-3) Basophils (%) (Auto) 0% (0-3) Neutrophils # (Auto) 13.9x10^3uL (1.8-7.7) Lymphocytes # (Auto) 1.3x10^3/uL (1.0-4.8) Monocytes # (Auto) 0.2x10^3/uL (0.0-1.1) Eosinophils # (Auto) 0.0x10^3/uL (0.0-0.7) Basophils # (Auto) 0.0x10^3/uL (0.0-0.2) Segmented Neutrophils % 38% (35-66) Band Neutrophils % 56% (0-9) Lymphocytes % 3% (24-48) Atypical Lymphocytes % (Manual) 1% (0-0) Metamyelocytes % 2% (0-0) Platelet Estimate Decreased (ADEQUATE) Large Platelets Present Sodium Level 140mmol/L (136-145) Chloride Level 107mmol/L (98-107) Carbon Dioxide Level 26mmol/L (21-32) Anion Gap 7 (6-14) Blood Urea Nitrogen 26mg/dL (8-26) Creatinine 1.1mg/dL (0.7-1.3) Estimated GFR (Cockcroft-Gault) 66.0 Glucose Level 82mg/dL (70-99) Calcium Level 8.5mg/dL (8.5-10.1) Phosphorus Level 2.3mg/dL (2.6-4.7) Magnesium Level 1.8mg/dL (1.8-2.4) Albumin 1.9g/dL (3.4-5.0) Test 01/28/17 13:50 01/28/17 21:15 01/29/17 04:40 White Blood Count 15.5x10^3/uL (4.0-11.0) 15.4x10^3/uL (4.0-11.0) Red Blood Count 4.09x10^6/uL (4.30-5.70) 4.22x10^6/uL (4.30-5.70) Hemoglobin 14.1g/dL (13.0-17.5) 14.4g/dL (13.0-17.5) Hematocrit 42.1% (39.0-53.0) 43.2% (39.0-53.0) Mean Corpuscular Volume 103fL (79-100) 102fL (79-100) Mean Corpuscular Hemoglobin 34pg (25-35) 34pg (25-35) Mean Corpuscular Hemoglobin Concent 33g/dL (31-37) 33g/dL (31-37) Red Cell Distribution Width 15.2% (11.5-14.5) 14.7% (11.5-14.5) Platelet Count 98x10^3/uL (140-400) 94x10^3/uL (140-400) Sodium Level 139mmol/L (136-145) 138mmol/L (136-145) Potassium Level 4.0mmol/L (3.5-5.1) 3.5mmol/L (3.5-5.1) Chloride Level 106mmol/L (98-107) 103mmol/L (98-107) Carbon Dioxide Level 27mmol/L (21-32) 29mmol/L (21-32) Anion Gap 6 (6-14) 6 (6-14) Blood Urea Nitrogen 23mg/dL (8-26) 15mg/dL (8-26) Creatinine 1.0mg/dL (0.7-1.3) 0.9mg/dL (0.7-1.3) Estimated GFR (Cockcroft-Gault) 73.7 83.2 Glucose Level 91mg/dL (70-99) 85mg/dL (70-99) Calcium Level 8.4mg/dL (8.5-10.1) 8.6mg/dL (8.5-10.1) Vancomycin Level Trough 7.9mcg/mL (10.0-20.0) Vancomycin Last Dose Date 01/27/17 Vancomycin Last Dose Time 2200 Neutrophils (%) (Auto) 89% (31-73) Lymphocytes (%) (Auto) 8% (24-48) Monocytes (%) (Auto) 3% (0-9) Eosinophils (%) (Auto) 0% (0-3) Basophils (%) (Auto) 0% (0-3) Neutrophils # (Auto) 13.8x10^3uL (1.8-7.7) Lymphocytes # (Auto) 1.2x10^3/uL (1.0-4.8) Monocytes # (Auto) 0.4x10^3/uL (0.0-1.1) Eosinophils # (Auto) 0.0x10^3/uL (0.0-0.7) Basophils # (Auto) 0.0x10^3/uL (0.0-0.2) Phosphorus Level 1.5mg/dL (2.6-4.7) Magnesium Level 1.8mg/dL (1.8-2.4) Albumin 1.8g/dL (3.4-5.0) Laboratory Tests Test 01/28/17 13:50 01/28/17 21:15 01/29/17 04:40 White Blood Count 15.5x10^3/uL (4.0-11.0) 15.4x10^3/uL (4.0-11.0) Red Blood Count 4.09x10^6/uL (4.30-5.70) 4.22x10^6/uL (4.30-5.70) Hemoglobin 14.1g/dL (13.0-17.5) 14.4g/dL (13.0-17.5) Hematocrit 42.1% (39.0-53.0) 43.2% (39.0-53.0) Mean Corpuscular Volume 103fL (79-100) 102fL (79-100) Mean Corpuscular Hemoglobin 34pg (25-35) 34pg (25-35) Mean Corpuscular Hemoglobin Concent 33g/dL (31-37) 33g/dL (31-37) Red Cell Distribution Width 15.2% (11.5-14.5) 14.7% (11.5-14.5) Platelet Count 98x10^3/uL (140-400) 94x10^3/uL (140-400) Sodium Level 139mmol/L (136-145) 138mmol/L (136-145) Potassium Level 4.0mmol/L (3.5-5.1) 3.5mmol/L (3.5-5.1) Chloride Level 106mmol/L (98-107) 103mmol/L (98-107) Carbon Dioxide Level 27mmol/L (21-32) 29mmol/L (21-32) Anion Gap 6 (6-14) 6 (6-14) Blood Urea Nitrogen 23mg/dL (8-26) 15mg/dL (8-26) Creatinine 1.0mg/dL (0.7-1.3) 0.9mg/dL (0.7-1.3) Estimated GFR (Cockcroft-Gault) 73.7 83.2 Glucose Level 91mg/dL (70-99) 85mg/dL (70-99) Calcium Level 8.4mg/dL (8.5-10.1) 8.6mg/dL (8.5-10.1) Vancomycin Level Trough 7.9mcg/mL (10.0-20.0) Vancomycin Last Dose Date 01/27/17 Vancomycin Last Dose Time 2200 Neutrophils (%) (Auto) 89% (31-73) Lymphocytes (%) (Auto) 8% (24-48) Monocytes (%) (Auto) 3% (0-9) Eosinophils (%) (Auto) 0% (0-3) Basophils (%) (Auto) 0% (0-3) Neutrophils # (Auto) 13.8x10^3uL (1.8-7.7) Lymphocytes # (Auto) 1.2x10^3/uL (1.0-4.8) Monocytes # (Auto) 0.4x10^3/uL (0.0-1.1) Eosinophils # (Auto) 0.0x10^3/uL (0.0-0.7) Basophils # (Auto) 0.0x10^3/uL (0.0-0.2) Phosphorus Level 1.5mg/dL (2.6-4.7) Magnesium Level 1.8mg/dL (1.8-2.4) Albumin 1.8g/dL (3.4-5.0) Microbiology 01/26/17 Gram Stain - Final, Complete Medications Current Medications Sodium Chloride (Iv Sodium Chloride 0.9% 1000ml Bag) 1,000 ml @ 100 mls/hr Q10H IV Last administered on 01/25/17 22:11; Start 01/25/17 at 22:30; Stop at 08:29; Status DC Ondansetron HCl (Zofran) 4 mg 1X ONCE IV Last administered on 01/25/17 22:12 ; Start 01/25/17 at 22:30; Stop 01/25/17 at 22:31; Status DC Fentanyl Citrate (Fentanyl 2ml Vial) 75 mcg PRN Q15MIN PRN IV PAIN GREATER THAN 3/10 Last administered on 01/26/17 00:50; Start 01/25/17 at 22:00; Stop at 21:59; Status DC Fentanyl Citrate (Fentanyl 2ml Vial) 100 mcg 1X ONCE IV Last administered on 22:12; Start 01/25/17 at 22:30; Stop 01/25/17 at 22:31; Status DC Iohexol (Omnipaque 300 Mg/ml) 75 ml 1X ONCE IV Last administered on 01/25/17 23:55; Start 01/26/17 at 00:00; Stop 01/26/17 at 00:01; Status DC Info 1 each 1 each PRN DAILY PRN MC SEE COMMENTS; Start 01/25/17 at 23:45; Stop 01/27/17 at 23:44; Status DC Piperacillin Sod/ Tazobactam Sod 3.375 gm/Sodium Chloride 50 ml @ 100 mls/hr 1X ONCE IV Last administered on 01/26/17 00:56; Start 01/26/17 at 01:00; Stop 01/26/17 at 01:29; Status DC Sodium Chloride (Iv Sodium Chloride 0.9% 1000ml Bag) 1,000 ml @ 100 mls/hr 1X ONCE IV Last administered on 01/26/17 00:53; Start 01/26/17 at 01:00; Stop at 10:59; Status DC Hydromorphone HCl (Dilaudid) 1 mg 1X ONCE IV Last administered on 01/26/17t 01 :33; Start 01/26/17 at 01:30; Stop 01/26/17 at 01:34; Status DC Hydromorphone HCl 1 mg 1 mg 1X ONCE IV ; Start 01/26/17 at 02:00; Stop at 02:01; Status DC Piperacillin Sod/ Tazobactam Sod/ Sodium Chloride (Zosyn/Iv Sodium Chloride 0.9 % 50ml) 50 ml @ 100 mls/hr 1X ONCE IV Last administered on 01/26/17t 02:43; Start 01/26/17 at 02:00; Stop 01/26/17 at 02:29; Status DC Dexamethasone Sodium Phosphate (Decadron) 20 mg STK-MED ONCE .ROUTE ; Start at 02:00; Stop 01/26/17 at 02:01; Status DC Ondansetron HCl 4 mg 4 mg STK-MED ONCE .ROUTE ; Start 01/26/17 at 02:00; Stop at 02:01; Status DC Propofol (Diprivan) 20 ml @ As Directed STK-MED ONCE IV ; Start 01/26/17 at 02: 00; Stop 01/26/17 at 02:01; Status DC Lidocaine HCl 100 mg STK-MED ONCE .ROUTE ; Start 01/26/17 at 02:00; Stop at 02:01; Status DC Fentanyl Citrate (Fentanyl 2ml Vial) 100 mcg STK-MED ONCE .ROUTE ; Start at 02:00; Stop 01/26/17 at 02:01; Status DC Succinylcholine Chloride (Anectine) 200 mg STK-MED ONCE .ROUTE ; Start 01/26/17 at 02:00; Stop 01/26/17 at 02:01; Status DC Rocuronium [place] (Zemuron) 50 mg STK-MED ONCE .ROUTE ; Start 01/26/17 at 02:00 ; Stop 01/26/17 at 02:01; Status DC Ondansetron HCl (Zofran) 4 mg PRN Q6HRS PRN IV Nausea; Start 01/26/17 at 02:15 ; Stop 01/27/17 at 02:14; Status DC Fentanyl Citrate (Fentanyl 2ml Vial) 25 mcg PRN Q5MIN PRN IV MILD PAIN; Start 01/26/17 at 02:15; Stop 01/27/17 at 02:14; Status DC Fentanyl Citrate (Fentanyl 2ml Vial) 50 mcg PRN Q5MIN PRN IV MODERATE PAIN; Start 01/26/17 at 02:15; Stop 01/27/17 at 02:14; Status DC Morphine Sulfate 1 mg 1 mg PRN Q10MIN PRN IV SEVERE PAIN; Start 01/26/17 at 02: 15; Stop 01/27/17 at 02:14; Status DC Lactated Ringer's (Iv Lactated Ringers) 1,000 ml @ 30 mls/hr Q24H IV ; Start at 02:09; Stop 01/26/17 at 14:08; Status DC Lidocaine HCl 2 ml 1X PRN PRN ID IV START; Start 01/26/17 at 02:15; Stop at 02:14; Status DC Hydromorphone HCl (Dilaudid) 0.5 mg PRN Q10MIN PRN IV SEV PAIN,Second choice Last administered on 01/26/17t 06:29; Start 01/26/17 at 02:15; Stop 01/27/17 at 02:14; Status DC Prochlorperazine Edisylate 5 mg 5 mg PACU PRN PRN IV NAUSEA; Start 01/26/17 at 02:15; Stop 01/27/17 at 02:14; Status DC Bacitracin/Sodium Chloride (Iv Sodium Chloride 0.9% 500ml Bag) 500 ml @ 500 mls /hr 1X PERIOP ONCE IRR ; Start 01/26/17 at 03:00; Stop 01/26/17 at 03:59; Status DC Hydrocortisone Sodium Succinate (Solu-Cortef) 100 mg STK-MED ONCE .ROUTE ; Start 01/26/17 at 02:24; Stop 01/26/17 at 02:25; Status DC Sevoflurane (Ultane) 90 ml STK-MED ONCE IH ; Start 01/26/17 at 03:16; Stop 01/26 at 03:17; Status DC Phenylephrine HCl 1 mg STK-MED ONCE IV ; Start 01/26/17 at 03:17; Stop 01/26/17 at 03:18; Status DC Phenylephrine HCl (Bhargav-Synephrine Inj) 10 mg STK-MED ONCE .ROUTE ; Start at 03:32; Stop 01/26/17 at 03:33; Status DC Rocuronium [place] (Zemuron) 50 mg STK-MED ONCE .ROUTE ; Start 01/26/17 at 03:36 ; Stop 01/26/17 at 03:37; Status DC Cellulose 1 each STK-MED ONCE .ROUTE Last administered on 01/26/17 02:47; Start 01/26/17 at 03:38; Stop 01/26/17 at 03:39; Status DC Glycopyrrolate (Robinul) 1 mg STK-MED ONCE .ROUTE ; Start 01/26/17 at 04:23; Stop 01/26/17 at 04:24; Status DC Neostigmine Methylsulfate 5 mg STK-MED ONCE .ROUTE ; Start 01/26/17 at 04:23; Stop 01/26/17 at 04:24; Status DC Sevoflurane (Ultane) 90 ml STK-MED ONCE IH ; Start 01/26/17 at 04:23; Stop 01/26 at 04:24; Status DC Esmolol HCl (Brevibloc) 100 mg STK-MED ONCE IV ; Start 01/26/17 at 04:28; Stop 01/26/17 at 04:29; Status DC Fentanyl Citrate 100 mcg 100 mcg STK-MED ONCE .ROUTE ; Start 01/26/17 at 05:09; Stop 01/26/17 at 05:10; Status DC Metronidazole (FLAGYL 500Mmg PREMIX) 100 ml @ 100 mls/hr Q12HR IV ; Start 01/26 at 09:00; Stop 01/26/17 at 09:00; Status DC Diphenhydramine HCl (Benadryl) 25 mg PRN Q6HRS PRN IV ITCHING Last administered on 01/27/17 18:18; Start 01/26/17 at 05:45 Famotidine (Pepcid) 20 mg BID IVP Last administered on 01/26/17 21:22; Start 01/26/17 at 09:00; Stop 01/27/17 at 08:10; Status DC Enoxaparin Sodium (Lovenox 40mg Syringe) 40 mg Q24H SQ Last administered on 08:48; Start 01/26/17 at 09:00; Stop 01/27/17 at 15:59; Status DC Sodium Chloride 3 ml 3 ml QSHIFT PRN IV AFTER MEDS AND BLOOD DRAWS; Start 01/26 at 05:45 Potassium Chloride/Sodium Chloride 1,000 ml @ 100 mls/hr Q10H IV Last administered on 01/26/17 21:24; Start 01/26/17 at 06:00; Stop 01/27/17 at 13:26 ; Status DC Hydromorphone HCl (Dilaudid Standard CLAIM PROCESSOR) 30 ml @ 0 mls/hr CONT PRN PRN IV PROTOCOL Last administered on 01/28/17 01:36; Start 01/26/17 at 05:45 Hydromorphone HCl (Dilaudid) 1 mg PRN Q1HR PRN IV MODERATE PAIN; Start at 05:45 Ondansetron HCl (Zofran) 4 mg PRN Q6HRS PRN IV NAUESA, 1ST CHOICE; Start at 05:45 Throat Lozenges (Chloraseptic) 1 spray PRN Q2HR PRN PO SORE THROAT; Start 01/26 at 05:45 Throat Lozenges (Cepacol Sore Throat Lozenge) 1 west PRN Q2HRS PRN PO SORE THROAT; Start 01/26/17 at 05:45 Nicotine 1 patch 1 patch DAILY TD Last administered on 01/28/17 09:05; Start 01/26/17 at 09:00 Piperacillin Sod/ Tazobactam Sod/ Sodium Chloride (Zosyn/Iv Sodium Chloride 0.9 % 50ml) 50 ml @ 100 mls/hr Q6HRS IV Last administered on 01/29/17 05:52; Start 01/26/17 at 08:00 Vancomycin HCl 1 each 1 each PRN DAILY PRN MC SEE COMMENTS Last administered on 01/29/17 08:16; Start 01/26/17 at 07:45 Vancomycin HCl 2 gm/Sodium Chloride 500 ml @ 250 mls/hr 1X ONCE IV Last administered on 01/26/17 09:02; Start 01/26/17 at 08:00; Stop 01/26/17 at 09:59 ; Status DC Vancomycin HCl/ Sodium Chloride (Iv Sodium Chloride 0.9% 250ml) 250 ml @ 167 mls/hr Q12H IV Last administered on 01/26/17 21:22; Start 01/26/17 at 21:00; Stop 01/27/17 at 09:36; Status DC Vancomycin HCl 1 each 1X ONCE MC Last administered on 01/27/17 08:30; Start 01/27/17 at 08:30; Stop 01/27/17 at 08:31; Status DC Famotidine 20 mg 20 mg QHS IVP Last administered on 01/28/17 21:49; Start at 21:00 Vancomycin HCl/ Sodium Chloride (Iv Sodium Chloride 0.9% 250ml) 250 ml @ 167 mls/hr Q24H IV Last administered on 01/28/17 21:49; Start 01/27/17 at 22:00; Stop 01/28/17 at 23:00; Status DC Vancomycin HCl 1 each 1 each 1X ONCE MC ; Start 01/28/17 at 21:30; Stop at 21:31; Status DC Diltiazem HCl 125 mg/Dextrose 125 ml @ 0 mls/hr CONT PRN IV SEE I/O RECORD Last administered on 01/27/17 23:12; Start 01/27/17 at 11:45 Sodium Chloride (Iv Sodium Chloride 0.45%) 1,000 ml @ 100 mls/hr 1X ONCE IV Last administered on 01/27/17 13:30; Start 01/27/17 at 13:30; Stop 01/27/17 at 23:29; Status DC Enoxaparin Sodium (Lovenox Per Pharmacy Treatment Dosing) 1 each PRN DAILY PRN MC SEE COMMENTS; Start 01/27/17 at 16:00; Stop 01/28/17 at 12:15; Status DC Enoxaparin Sodium 75 mg 75 mg Q12HR SQ Last administered on 01/28/17 09:07; Start 01/27/17 at 18:00; Stop 01/28/17 at 12:15; Status DC Magnesium Sulfate/ Dextrose 50 ml @ 25 mls/hr PRN DAILY PRN IV for Mag < 1.7 on am labs; Start 01/27/17 at 17:45 Sodium Chloride (Iv Sodium Chloride 0.9% 500ml Bag) 500 ml @ 0 mls/hr QID PRN IV For MAP < 65; Start 01/27/17 at 17:45 Info (Anti-Coagulation Monitoring By Pharmacy) 1 each PRN DAILY PRN MC SEE COMMENTS Last administered on 01/28/17t 07:45; Start 01/28/17 at 07:45; Stop at 14:34; Status DC Enoxaparin Sodium 40 mg 40 mg Q24H SQ ; Start 01/29/17 at 09:00 Vancomycin HCl/ Sodium Chloride (Iv Sodium Chloride 0.9% 250ml) 250 ml @ 167 mls/hr Q12H IV ; Start 01/29/17 at 10:00 Vancomycin HCl 1 each 1X ONCE MC ; Start 01/30/17 at 09:30; Stop 01/30/17 at 09 :31; Status Cancel Active Scripts Active Reported Remicade (Infliximab) 100 Mg Vial 100 Mg IV Q8HRS Vitals/I & O Vital Sign - Last 24 Hours 01/28/17 01/28/17 01/28/17 01/28/17 09:00 10:00 11:00 12:00 Pulse 102 96 96 Resp B/P 94/65 85/65 91/66 Pulse Ox 98 98 96 O2 Delivery Room Air Room Air Room Air Room Air 01/28/17 01/28/17 01/28/17 01/28/17 12:00 13:00 14:00 15:00 Temp 98.6 98.6 Pulse 104 100 100 108 Resp B/P 95/68 79/57 83/55 92/67 Pulse Ox 97 98 96 96 O2 Delivery Room Air Room Air Room Air Room Air 01/28/17 01/28/17 01/28/17 01/28/17 16:00 16:00 17:00 18:00 Temp 98.4 98.4 Pulse 100 108 100 Resp B/P 83/65 95/64 98/68 Pulse Ox 96 97 97 O2 Delivery Room Air Room Air Room Air Room Air 01/28/17 01/28/17 01/28/17 01/28/17 19:00 20:00 20:00 21:00 Temp 98.2 98.2 Pulse 96 106 102 Resp B/P 92/69 116/69 92/63 Pulse Ox 96 96 95 O2 Delivery Room Air Room Air Room Air Room Air 01/28/17 01/28/17 01/29/17 01/29/17 22:00 23:00 00:00 00:00 Temp 96.7 96.7 Pulse 103 96 98 Resp B/P 92/64 86/63 103/68 Pulse Ox 98 98 95 O2 Delivery Room Air Room Air Room Air Room Air 01/29/17 01/29/17 01/29/17 01/29/17 01:00 02:00 03:00 04:00 Temp 98.2 98.2 Pulse 95 105 100 107 Resp B/P 96/66 93/62 92/66 98/70 Pulse Ox 98 98 97 97 O2 Delivery Room Air Room Air Room Air Room Air 01/29/17 01/29/17 01/29/17 01/29/17 04:00 05:00 06:00 07:00 Pulse 109 105 102 Resp 12 B/P 104/75 96/71 86/60 Pulse Ox 96 97 97 O2 Delivery Room Air Room Air Room Air Room Air 01/29/17 08:00 Temp 98.4 98.4 Pulse 111 Resp 30 B/P 93/70 Pulse Ox 95 O2 Delivery Room Air Intake and Output 01/28/17 01/28/17 01/29/17 15:00 23:00 07:00 Intake Total 350 ml 1281 ml 358.5 ml Output Total 350 ml 431 ml 567 ml Balance 0 ml 850 ml -208.5 ml SILAS [place] MD Jan 29, 2017 08:39
[2017-01-29] MEDS: VANCOMYCIN 1.25 GM in IV NORMAL SALINE 250ML 250 ML IV SCH ×2 (10:05→21:45)
[2017-01-29] MEDS: OXYCODONE/APAP 10/325 TABLET. PO PRN ×2 (10:05→23:07)
[2017-01-29] MEDS: ENOXAPARIN 40 MG/0.4 ML SYRINGE. SQ SCH (10:05)
[2017-01-29] MEDS: NICOTINE 21MG PATCH. TD SCH (10:06)
--- NOTE | 2017-01-29 11:51 | PDOC ---
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 [employer] 01/29/17 1151: CARDIO Progress Notes Date and Time Date of Service 01/29/17 Time of Evaluation 1015 Subjective Subjective: Other (in chair this morning; mild abd pain/tenderness. tolerating clears) Vitals Vitals Vital Signs Date Time Temp Pulse Resp B/P Pulse Ox O2 Delivery O2 Flow Rate FiO2 01/29/17 10:05 22 95 Room Air 01/29/17 09:00 112 83/68 01/29/17 08:00 98.4 98.4 01/28/17 08:00 4.0 Weight Weight [ ] Input and Output Intake and Output Intake and Output 01/29/17 07:00 Intake Total 2089.5 ml Output Total 1498 ml Balance 591.5 ml Intake Oral 600 ml IV Total 1489.5 ml Output Urine Total 1378 ml Drainage Total 120 ml Laboratory Labs Laboratory Tests Test 01/28/17 13:50 01/28/17 21:15 01/29/17 04:40 White Blood Count 15.5x10^3/uL (4.0-11.0) 15.4x10^3/uL (4.0-11.0) Red Blood Count 4.09x10^6/uL (4.30-5.70) 4.22x10^6/uL (4.30-5.70) Hemoglobin 14.1g/dL (13.0-17.5) 14.4g/dL (13.0-17.5) Hematocrit 42.1% (39.0-53.0) 43.2% (39.0-53.0) Mean Corpuscular Volume 103fL (79-100) 102fL (79-100) Mean Corpuscular Hemoglobin 34pg (25-35) 34pg (25-35) Mean Corpuscular Hemoglobin Concent 33g/dL (31-37) 33g/dL (31-37) Red Cell Distribution Width 15.2% (11.5-14.5) 14.7% (11.5-14.5) Platelet Count 98x10^3/uL (140-400) 94x10^3/uL (140-400) Sodium Level 139mmol/L (136-145) 138mmol/L (136-145) Potassium Level 4.0mmol/L (3.5-5.1) 3.5mmol/L (3.5-5.1) Chloride Level 106mmol/L (98-107) 103mmol/L (98-107) Carbon Dioxide Level 27mmol/L (21-32) 29mmol/L (21-32) Anion Gap 6 (6-14) 6 (6-14) Blood Urea Nitrogen 23mg/dL (8-26) 15mg/dL (8-26) Creatinine 1.0mg/dL (0.7-1.3) 0.9mg/dL (0.7-1.3) Estimated GFR (Cockcroft-Gault) 73.7 83.2 Glucose Level 91mg/dL (70-99) 85mg/dL (70-99) Calcium Level 8.4mg/dL (8.5-10.1) 8.6mg/dL (8.5-10.1) Vancomycin Level Trough 7.9mcg/mL (10.0-20.0) Vancomycin Last Dose Date 01/27/17 Vancomycin Last Dose Time 2200 Neutrophils (%) (Auto) 89% (31-73) Lymphocytes (%) (Auto) 8% (24-48) Monocytes (%) (Auto) 3% (0-9) Eosinophils (%) (Auto) 0% (0-3) Basophils (%) (Auto) 0% (0-3) Neutrophils # (Auto) 13.8x10^3uL (1.8-7.7) Lymphocytes # (Auto) 1.2x10^3/uL (1.0-4.8) Monocytes # (Auto) 0.4x10^3/uL (0.0-1.1) Eosinophils # (Auto) 0.0x10^3/uL (0.0-0.7) Basophils # (Auto) 0.0x10^3/uL (0.0-0.2) Phosphorus Level 1.5mg/dL (2.6-4.7) Magnesium Level 1.8mg/dL (1.8-2.4) Albumin 1.8g/dL (3.4-5.0) Microbiology Micro Microbiology 01/26/17 Gram Stain - Final, Complete Physical Exam HEENT: Neck Supple W Full Motion Chest: Symmetric Heart: irregularly irregular, other (tele AFIB rate 100-110) Abdomen: Other (colostomy ) Neurology: alert, oriented, follow commands Assessment Assessment 1. Atrial fibrillation with RVR, paroxysmal 2. Perforated viscus, s/p resection with end colostomy 3. Crohn's Dx 4. VELVET Recommendations Suspect AFIB/ mild tachycardia is stress-induced; maintain adequate pain control Will hold off on rate controlling agents for now. BP marginal IV dig if significant, sustained tachycardia is noted Supportive care. Will follow- treatment dependent upon hospital/rhythm course. KATIE PARK MD 01/29/17 1421: CARDIO Progress Notes Plan Plan Patient seen and examined. Agree with above nurse practitioner note. No acute events overnight. Tolerating some clear liquids today. Heart rate is fairly well-controlled. Cardiac exam is unremarkable except for an irregular heart rhythm. We discussed briefly the pathophysiology of A. fib today and it's indications regarding stroke risk. Given his acute postsurgical state the risk of bleeding is likely higher than the benefit derived from anticoagulation. Continued monitoring and if when closer to discharge he is still in A. fib could then consider discharging the patient on anticoagulation. 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 APRN Jan 29, 2017 11:51 KATIE PARK MD Jan 29, 2017 14:21
--- NOTE | 2017-01-29 12:11 | PDOC ---
SURGICAL PROGRESS NOTE Subjective tolerating clears no nausea pain ok Vital Signs Vital Signs Date Time Temp Pulse Resp B/P Pulse Ox O2 Delivery O2 Flow Rate FiO2 01/29/17 11:05 24 95 Room Air 01/29/17 11:00 108 78/62 01/29/17 08:00 98.4 98.4 01/28/17 08:00 4.0 I&O Intake and Output 01/29/17 07:00 Intake Total 2089.5 ml Output Total 1498 ml Balance 591.5 ml Intake Oral 600 ml IV Total 1489.5 ml Output Urine Total 1378 ml Drainage Total 120 ml General: Alert, Oriented X3, Cooperative, No acute distress Abdomen: Soft, Other (drain in place, stoma pink, incision c/d/i, no erythema ) Labs Laboratory Tests Test 01/27/17 17:40 01/27/17 20:05 01/28/17 05:25 01/28/17 13:50 Potassium Level 4.5mmol/L (3.5-5.1) 4.1mmol/L (3.5-5.1) 4.0mmol/L (3.5-5.1) Creatine Kinase 108U/L (39-308) Urine Color Yellow Urine Clarity Clear Urine pH 6.0 Urine Specific Pollard >=1.030 Urine Protein 30mg/dL (NEG-TRACE) Urine Glucose (UA) Negativemg/dL (NEG) Urine Ketones (Stick) Negativemg/dL (NEG) Urine Blood Moderate (NEG) Urine Nitrite Negative (NEG) Urine Bilirubin Negative (NEG) Urine Urobilinogen Dipstick 1.0mg/dL (0.2 mg/dL) Urine Leukocyte Esterase Negative (NEG) Urine RBC Occ/HPF (0-2) Urine WBC Occ/HPF (0-4) Urine Squamous Epithelial Cells Occ/LPF Urine Amorphous Sediment Present/HPF Urine Bacteria 0/HPF (0-FEW) Urine Mucus Slight/LPF Urine Random Sodium 91mmol/L (Not Estab.) White Blood Count 15.5x10^3/uL (4.0-11.0) 15.5x10^3/uL (4.0-11.0) Red Blood Count 4.13x10^6/uL (4.30-5.70) 4.09x10^6/uL (4.30-5.70) Hemoglobin 14.0g/dL (13.0-17.5) 14.1g/dL (13.0-17.5) Hematocrit 42.8% (39.0-53.0) 42.1% (39.0-53.0) Mean Corpuscular Volume 104fL (79-100) 103fL (79-100) Mean Corpuscular Hemoglobin 34pg (25-35) 34pg (25-35) Mean Corpuscular Hemoglobin Concent 33g/dL (31-37) 33g/dL (31-37) Red Cell Distribution Width 15.1% (11.5-14.5) 15.2% (11.5-14.5) Platelet Count 104x10^3/uL (140-400) 98x10^3/uL (140-400) Neutrophils (%) (Auto) 90% (31-73) Lymphocytes (%) (Auto) 9% (24-48) Monocytes (%) (Auto) 1% (0-9) Eosinophils (%) (Auto) 0% (0-3) Basophils (%) (Auto) 0% (0-3) Neutrophils # (Auto) 13.9x10^3uL (1.8-7.7) Lymphocytes # (Auto) 1.3x10^3/uL (1.0-4.8) Monocytes # (Auto) 0.2x10^3/uL (0.0-1.1) Eosinophils # (Auto) 0.0x10^3/uL (0.0-0.7) Basophils # (Auto) 0.0x10^3/uL (0.0-0.2) Segmented Neutrophils % 38% (35-66) Band Neutrophils % 56% (0-9) Lymphocytes % 3% (24-48) Atypical Lymphocytes % (Manual) 1% (0-0) Metamyelocytes % 2% (0-0) Platelet Estimate Decreased (ADEQUATE) Large Platelets Present Sodium Level 140mmol/L (136-145) 139mmol/L (136-145) Chloride Level 107mmol/L (98-107) 106mmol/L (98-107) Carbon Dioxide Level 26mmol/L (21-32) 27mmol/L (21-32) Anion Gap 7 (6-14) 6 (6-14) Blood Urea Nitrogen 26mg/dL (8-26) 23mg/dL (8-26) Creatinine 1.1mg/dL (0.7-1.3) 1.0mg/dL (0.7-1.3) Estimated GFR (Cockcroft-Gault) 66.0 73.7 Glucose Level 82mg/dL (70-99) 91mg/dL (70-99) Calcium Level 8.5mg/dL (8.5-10.1) 8.4mg/dL (8.5-10.1) Phosphorus Level 2.3mg/dL (2.6-4.7) Magnesium Level 1.8mg/dL (1.8-2.4) Albumin 1.9g/dL (3.4-5.0) Test 01/28/17 21:15 01/29/17 04:40 Vancomycin Level Trough 7.9mcg/mL (10.0-20.0) Vancomycin Last Dose Date 01/27/17 Vancomycin Last Dose Time 2200 White Blood Count 15.4x10^3/uL (4.0-11.0) Red Blood Count 4.22x10^6/uL (4.30-5.70) Hemoglobin 14.4g/dL (13.0-17.5) Hematocrit 43.2% (39.0-53.0) Mean Corpuscular Volume 102fL (79-100) Mean Corpuscular Hemoglobin 34pg (25-35) Mean Corpuscular Hemoglobin Concent 33g/dL (31-37) Red Cell Distribution Width 14.7% (11.5-14.5) Platelet Count 94x10^3/uL (140-400) Neutrophils (%) (Auto) 89% (31-73) Lymphocytes (%) (Auto) 8% (24-48) Monocytes (%) (Auto) 3% (0-9) Eosinophils (%) (Auto) 0% (0-3) Basophils (%) (Auto) 0% (0-3) Neutrophils # (Auto) 13.8x10^3uL (1.8-7.7) Lymphocytes # (Auto) 1.2x10^3/uL (1.0-4.8) Monocytes # (Auto) 0.4x10^3/uL (0.0-1.1) Eosinophils # (Auto) 0.0x10^3/uL (0.0-0.7) Basophils # (Auto) 0.0x10^3/uL (0.0-0.2) Sodium Level 138mmol/L (136-145) Potassium Level 3.5mmol/L (3.5-5.1) Chloride Level 103mmol/L (98-107) Carbon Dioxide Level 29mmol/L (21-32) Anion Gap 6 (6-14) Blood Urea Nitrogen 15mg/dL (8-26) Creatinine 0.9mg/dL (0.7-1.3) Estimated GFR (Cockcroft-Gault) 83.2 Glucose Level 85mg/dL (70-99) Calcium Level 8.6mg/dL (8.5-10.1) Phosphorus Level 1.5mg/dL (2.6-4.7) Magnesium Level 1.8mg/dL (1.8-2.4) Albumin 1.8g/dL (3.4-5.0) Laboratory Tests Test 01/28/17 13:50 01/28/17 21:15 01/29/17 04:40 White Blood Count 15.5x10^3/uL (4.0-11.0) 15.4x10^3/uL (4.0-11.0) Red Blood Count 4.09x10^6/uL (4.30-5.70) 4.22x10^6/uL (4.30-5.70) Hemoglobin 14.1g/dL (13.0-17.5) 14.4g/dL (13.0-17.5) Hematocrit 42.1% (39.0-53.0) 43.2% (39.0-53.0) Mean Corpuscular Volume 103fL (79-100) 102fL (79-100) Mean Corpuscular Hemoglobin 34pg (25-35) 34pg (25-35) Mean Corpuscular Hemoglobin Concent 33g/dL (31-37) 33g/dL (31-37) Red Cell Distribution Width 15.2% (11.5-14.5) 14.7% (11.5-14.5) Platelet Count 98x10^3/uL (140-400) 94x10^3/uL (140-400) Sodium Level 139mmol/L (136-145) 138mmol/L (136-145) Potassium Level 4.0mmol/L (3.5-5.1) 3.5mmol/L (3.5-5.1) Chloride Level 106mmol/L (98-107) 103mmol/L (98-107) Carbon Dioxide Level 27mmol/L (21-32) 29mmol/L (21-32) Anion Gap 6 (6-14) 6 (6-14) Blood Urea Nitrogen 23mg/dL (8-26) 15mg/dL (8-26) Creatinine 1.0mg/dL (0.7-1.3) 0.9mg/dL (0.7-1.3) Estimated GFR (Cockcroft-Gault) 73.7 83.2 Glucose Level 91mg/dL (70-99) 85mg/dL (70-99) Calcium Level 8.4mg/dL (8.5-10.1) 8.6mg/dL (8.5-10.1) Vancomycin Level Trough 7.9mcg/mL (10.0-20.0) Vancomycin Last Dose Date 01/27/17 Vancomycin Last Dose Time 2200 Neutrophils (%) (Auto) 89% (31-73) Lymphocytes (%) (Auto) 8% (24-48) Monocytes (%) (Auto) 3% (0-9) Eosinophils (%) (Auto) 0% (0-3) Basophils (%) (Auto) 0% (0-3) Neutrophils # (Auto) 13.8x10^3uL (1.8-7.7) Lymphocytes # (Auto) 1.2x10^3/uL (1.0-4.8) Monocytes # (Auto) 0.4x10^3/uL (0.0-1.1) Eosinophils # (Auto) 0.0x10^3/uL (0.0-0.7) Basophils # (Auto) 0.0x10^3/uL (0.0-0.2) Phosphorus Level 1.5mg/dL (2.6-4.7) Magnesium Level 1.8mg/dL (1.8-2.4) Albumin 1.8g/dL (3.4-5.0) Problem List Problems Medical Problems: (1) Perforated abdominal viscus Status: Acute Assessment/Plan perforated colon, s/p resection hgb stable plts drifting, 94 wbc [address] Garcia Problems: FERNANDO CEJA APRN Jan 29, 2017 12:11
--- NOTE | 2017-01-29 14:05 | PATHOLOGY ---
PATHOLOGY REPORT * * * * * * * * FINAL DIAGNOSIS: Segment of colon-mesocolon, splenic flexure segmental resection: - Focal ischemic colitis with perforation and acute peritonitis. - Proximal and distal margins appear viable. - Neuronal hypertrophy of colon, focal. - Several mesocolic lymph nodes showing no significant pathologic abnormalities. (JPM:mgjuana; d/t: 01/28/17) REPORT ELECTRONICALLY SIGNED BY: Clemente Whitt M.D. DATE/TIME: 01/29/2017 14:04 * * * * * * * * GROSS PATHOLOGY: The specimen is received in formalin, labeled "Clarke, David and silk suture at distal end, splenic flexure." Received is a segment of colon oriented with a black suture placed at the distal aspect. The specimen measures 22.3 cm in length and 3.2 cm in average diameter. The specimen displays 2 stapled margins which grossly appear viable. There is up to 4.0 cm in length of attached pericolic fat and 15.0 cm in length of attached omentum. The specimen displays a 3.5 x 1.8 cm transmural and circular defect, consistent with a perforation, which is located 5.8 cm from the proximal margin and 12.2 cm from the distal margin. The serosa surrounding the perforation is knight-brown, necrotic appearing, and is inked blue. The remaining serosa is red-knight and displays adhesions. The specimen is opened to reveal red-knight to knight-brown, cobblestoned, granular, and slightly flattened mucosa. No mucosal masses or lesions are grossly identified. The wall is thickened and measures 0.4 cm. Sectioning of the omentum reveals a homogenous yellow-knight, lobulated, and grossly unremarkable cut surface. Dissection of the pericolic fat reveals several pink-knight lymph nodes ranging from 0.2-0.4 cm in greatest dimension. Integration Lead sections are submitted as follows: A1 proximal margin, en face A2 distal margin, en face A3 perforation A4 merchandising representative sections of colon A5 omentum A6 several intact and possible lymph nodes (TTL; 01/27/2017) After initial microscopic evaluation, additional sections are submitted as follows: A7-A8 sections of colonic defect A9 sections proximal to defect A10 sections distal to defect (TTL; 01/28/2017) INITIAL CPT CODE(S): 87124 Professional services [place] [address] Technical services performed by [facility] at [address] [place] [address], [address], [place] [address]. SPECIMEN(S) RECEIVED: A.Silk suture at distal end splenic flexure CLINICAL HISTORY: Perforated viscous PATIENT: DAVID CLARKE /AGE: 9 1945 (Age: 71) PATIENT #: [id number] ALT CASE #: SPECIMEN COLLECTION DATE: 01/26/2017 SPECIMEN RECEIVED DATE: 01/26/2017 [facility] - [address] [place] [address] - PHONE: [phone] * * * END OF REPORT * * *
[2017-01-29] MEDS: OXYCODONE/APAP 5/325 TABLET. PO PRN (19:03)
[2017-01-29] MEDS: DIPHENHYDRAMINE 50 MG/ML VIAL IV PRN (20:17)
[2017-01-29] MEDS: FAMOTIDINE 20 MG/2 ML VIAL IVP SCH (21:44)
[2017-01-30] MEDS: PIPERACILLIN/TAZOBACTAM 3.375 GM in IV NORMAL SALINE 50ML 50 ML IV SCH ×4 (00:22→18:08)
[2017-01-30 03:42] VITALS: BP 93/66
[2017-01-30 04:40] LABS: BASO % 0 % (0-3); EOS % 0 % (0-3); HEMATOCRIT 42.4 % (39.0-53.0); HEMOGLOBIN 14.1 g/dL (13.0-17.5); LYMPH # 1.3 x10^3/uL (1.0-4.8); LYMPH % 10 % (24-48); MEAN CORPUSCULAR HEMOGLOBIN 34 pg (25-35); MEAN CORPUSCULAR HGB CONC 33 g/dL (31-37); MEAN CORPUSCULAR VOLUME 103 fL (79-100); MONO % 7 % (0-9); NEUT % 83 % (31-73); PLATELET COUNT 103 x10^3/uL (140-400); RED BLOOD COUNT 4.12 x10^6/uL (4.30-5.70); RED CELL DISTRIBUTION WIDTH 14.5 % (11.5-14.5)
[2017-01-30 05:05] LABS: ALBUMIN 1.6 g/dL (3.4-5.0); CALCIUM 8.8 mg/dL (8.5-10.1); GFR 73.7; PHOSPHORUS 2.6 mg/dL (2.6-4.7); POTASSIUM 3.7 mmol/L (3.5-5.1)
[2017-01-30 07:00] VITALS: BP 113/80
[2017-01-30] MEDS ORDERED: IV NORMAL SALINE 1000ML BAG 1,000 ML IV ONE (09:00)
[2017-01-30] MEDS ORDERED: DIGOXIN 500 MCG/2 ML AMPUL. IV ONE (09:00)
--- NOTE | 2017-01-30 09:18 | PDOC ---
Infectious Disease Note Subjective Subjective awake in chair, feeling better ROS ROS GEN: Denies fevers, chills, sweats HEENT: Denies blurred vision, sore throat CV: Denies chest pain RESP: Denies shortness of air, cough GI: Denies n/v/d NEURO: Denies confusion, dizziness MSK: Denies weakness, joint pain/swelling Vital Sign Vital Signs Vital Signs Date Time Temp Pulse Resp B/P Pulse Ox O2 Delivery O2 Flow Rate FiO2 01/30/17 07:54 Room Air 01/30/17 07:00 97.9 105 20 113/80 93 97.9 01/29/17 16:00 4.0 Physical Exam PHYSICAL EXAM GENERAL: NAD, Alert HEENT: PERRL, OC/OP NECK: Supple, no JVD, no LN LUNGS: Clear HEART: S1S2, no gallop, no murmur ABD: Soft, NT, no organomegaly, no rebound,, incision with minimal discharge EXT: No edema, no cyanosis VITICULTURIST: Alert, oriented x 3, no focal neurologic deficit SKIN: No rash IV: ok Labs Lab Laboratory Tests Test 01/30/17 03:48 White Blood Count 13.0x10^3/uL (4.0-11.0) Red Blood Count 4.12x10^6/uL (4.30-5.70) Hemoglobin 14.1g/dL (13.0-17.5) Hematocrit 42.4% (39.0-53.0) Mean Corpuscular Volume 103fL (79-100) Mean Corpuscular Hemoglobin 34pg (25-35) Mean Corpuscular Hemoglobin Concent 33g/dL (31-37) Red Cell Distribution Width 14.5% (11.5-14.5) Platelet Count 103x10^3/uL (140-400) Neutrophils (%) (Auto) 83% (31-73) Lymphocytes (%) (Auto) 10% (24-48) Monocytes (%) (Auto) 7% (0-9) Eosinophils (%) (Auto) 0% (0-3) Basophils (%) (Auto) 0% (0-3) Neutrophils # (Auto) 10.8x10^3uL (1.8-7.7) Lymphocytes # (Auto) 1.3x10^3/uL (1.0-4.8) Monocytes # (Auto) 0.9x10^3/uL (0.0-1.1) Eosinophils # (Auto) 0.0x10^3/uL (0.0-0.7) Basophils # (Auto) 0.0x10^3/uL (0.0-0.2) Sodium Level 141mmol/L (136-145) Potassium Level 3.7mmol/L (3.5-5.1) Chloride Level 104mmol/L (98-107) Carbon Dioxide Level 28mmol/L (21-32) Anion Gap 9 (6-14) Blood Urea Nitrogen 14mg/dL (8-26) Creatinine 1.0mg/dL (0.7-1.3) Estimated GFR (Cockcroft-Gault) 73.7 Glucose Level 109mg/dL (70-99) Calcium Level 8.8mg/dL (8.5-10.1) Phosphorus Level 2.6mg/dL (2.6-4.7) Magnesium Level 1.8mg/dL (1.8-2.4) Albumin 1.6g/dL (3.4-5.0) Micro ANAEROBIC-AEROBIC CULTURE Preliminary Preliminary report ANAEROBIC RES 1 PENDING ANAEROBIC RES 2 Preliminary Bacteroides fragilis Heavy growth Beta lactamase positive. Performed at: [address] [id number] [employer] Operator: Preethi Nguyen MD, Phone: [phone] AEROBIC CULT Final Final report AEROBIC RES 1 Final Comment Streptococcus bovis group Heavy growth AEROBIC RES 2 Final Comment Haemophilus parainfluenzae Heavy growth Beta lactamase negative. AEROBIC RES 3 Final Mixed site kale. Objective Assessment Perforated colon s/p surgery Peritonitis Sepsis with hypotension Crohns disease on remicaid Recent pneumonia smoker Plan Plan of Care zosyn and d/c vanc supportive care pt/ot KELSIE CANTU MD Jan 30, 2017 09:18
[2017-01-30] MEDS: NICOTINE 21MG PATCH. TD SCH (09:26)
[2017-01-30] MEDS: ENOXAPARIN 40 MG/0.4 ML SYRINGE. SQ SCH (09:26)
--- NOTE | 2017-01-30 10:19 | PDOC ---
PROGRESS NOTES Chief Complaint Chief Complaint Bowel perf ASSESSMENT AND PLAN: 1. Colonic perforation: s/p emergent resection of splenic flexure with Paiz pouch on 01/26 2. Peritonitis, fecaloid material intra op 3. Crohn's: on remicade on O/p basis, i.e. immunosuppressed 4. VELVET: recovering. 5. Hyperkalemia: resolved 6. Aflutter: new. resolved (Transient) 6. Thrombocytopenia: resolved 7. Anemia, macrocytic: 8. Leukocytosis: reactive; 9. Agitation: personality vs EtOH W/D. 10. COugh 11. 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 NO fevers lopez out, voiding fine CXR: pre op - atelectasis and pneumoperitoneum PLan: ENcouraged ambulation Renew PT./OT Discussed IS (10x an hr) LAbs adriana Diet per GS If any fevers, might need to re CXR/send sputum SO isa for now, CPM dw pt and fire patroller Vitals Vitals Vital Signs Date Time Temp Pulse Resp B/P Pulse Ox O2 Delivery O2 Flow Rate FiO2 01/30/17 09:25 105 113/80 01/30/17 07:54 Room Air 01/30/17 07:00 97.9 20 93 97.9 01/29/17 16:00 4.0 Physical Exam General: Alert, Oriented X3, Cooperative, No acute distress Heart: Regular rate Lungs: Clear Abdomen: Soft, Other (drain in place, stoma pink, incision c/d/i, no erythema ) Extremities: No edema, Normal pulses Skin: No significant lesion, Other Labs LABS Laboratory Tests Test 01/30/17 03:48 White Blood Count 13.0x10^3/uL (4.0-11.0) Red Blood Count 4.12x10^6/uL (4.30-5.70) Hemoglobin 14.1g/dL (13.0-17.5) Hematocrit 42.4% (39.0-53.0) Mean Corpuscular Volume 103fL (79-100) Mean Corpuscular Hemoglobin 34pg (25-35) Mean Corpuscular Hemoglobin Concent 33g/dL (31-37) Red Cell Distribution Width 14.5% (11.5-14.5) Platelet Count 103x10^3/uL (140-400) Neutrophils (%) (Auto) 83% (31-73) Lymphocytes (%) (Auto) 10% (24-48) Monocytes (%) (Auto) 7% (0-9) Eosinophils (%) (Auto) 0% (0-3) Basophils (%) (Auto) 0% (0-3) Neutrophils # (Auto) 10.8x10^3uL (1.8-7.7) Lymphocytes # (Auto) 1.3x10^3/uL (1.0-4.8) Monocytes # (Auto) 0.9x10^3/uL (0.0-1.1) Eosinophils # (Auto) 0.0x10^3/uL (0.0-0.7) Basophils # (Auto) 0.0x10^3/uL (0.0-0.2) Sodium Level 141mmol/L (136-145) Potassium Level 3.7mmol/L (3.5-5.1) Chloride Level 104mmol/L (98-107) Carbon Dioxide Level 28mmol/L (21-32) Anion Gap 9 (6-14) Blood Urea Nitrogen 14mg/dL (8-26) Creatinine 1.0mg/dL (0.7-1.3) Estimated GFR (Cockcroft-Gault) 73.7 Glucose Level 109mg/dL (70-99) Calcium Level 8.8mg/dL (8.5-10.1) Phosphorus Level 2.6mg/dL (2.6-4.7) Magnesium Level 1.8mg/dL (1.8-2.4) Albumin 1.6g/dL (3.4-5.0) Review of Systems Review of Systems greenish phlegm, cough, no soa, some abd soreness, post op site Assessment and Plan Assessmemt and Plan Problems Medical Problems: (1) Perforated abdominal viscus Status: Acute Problems: Comment Review of Relevant I have reviewed the following items manuel (where applicable) has been applied. Labs Laboratory Tests Test 01/28/17 13:50 01/28/17 21:15 01/29/17 04:40 01/30/17 03:48 White Blood Count 15.5x10^3/uL (4.0-11.0) 15.4x10^3/uL (4.0-11.0) 13.0x10^3/uL (4.0-11.0) Red Blood Count 4.09x10^6/uL (4.30-5.70) 4.22x10^6/uL (4.30-5.70) 4.12x10^6/uL (4.30-5.70) Hemoglobin 14.1g/dL (13.0-17.5) 14.4g/dL (13.0-17.5) 14.1g/dL (13.0-17.5) Hematocrit 42.1% (39.0-53.0) 43.2% (39.0-53.0) 42.4% (39.0-53.0) Mean Corpuscular Volume 103fL (79-100) 102fL (79-100) 103fL (79-100) Mean Corpuscular Hemoglobin 34pg (25-35) 34pg (25-35) 34pg (25-35) Mean Corpuscular Hemoglobin Concent 33g/dL (31-37) 33g/dL (31-37) 33g/dL (31-37) Red Cell Distribution Width 15.2% (11.5-14.5) 14.7% (11.5-14.5) 14.5% (11.5-14.5) Platelet Count 98x10^3/uL (140-400) 94x10^3/uL (140-400) 103x10^3/uL (140-400) Sodium Level 139mmol/L (136-145) 138mmol/L (136-145) 141mmol/L (136-145) Potassium Level 4.0mmol/L (3.5-5.1) 3.5mmol/L (3.5-5.1) 3.7mmol/L (3.5-5.1) Chloride Level 106mmol/L (98-107) 103mmol/L (98-107) 104mmol/L (98-107) Carbon Dioxide Level 27mmol/L (21-32) 29mmol/L (21-32) 28mmol/L (21-32) Anion Gap 6 (6-14) 6 (6-14) 9 (6-14) Blood Urea Nitrogen 23mg/dL (8-26) 15mg/dL (8-26) 14mg/dL (8-26) Creatinine 1.0mg/dL (0.7-1.3) 0.9mg/dL (0.7-1.3) 1.0mg/dL (0.7-1.3) Estimated GFR (Cockcroft-Gault) 73.7 83.2 73.7 Glucose Level 91mg/dL (70-99) 85mg/dL (70-99) 109mg/dL (70-99) Calcium Level 8.4mg/dL (8.5-10.1) 8.6mg/dL (8.5-10.1) 8.8mg/dL (8.5-10.1) Vancomycin Level Trough 7.9mcg/mL (10.0-20.0) Vancomycin Last Dose Date 01/27/17 Vancomycin Last Dose Time 2200 Neutrophils (%) (Auto) 89% (31-73) 83% (31-73) Lymphocytes (%) (Auto) 8% (24-48) 10% (24-48) Monocytes (%) (Auto) 3% (0-9) 7% (0-9) Eosinophils (%) (Auto) 0% (0-3) 0% (0-3) Basophils (%) (Auto) 0% (0-3) 0% (0-3) Neutrophils # (Auto) 13.8x10^3uL (1.8-7.7) 10.8x10^3uL (1.8-7.7) Lymphocytes # (Auto) 1.2x10^3/uL (1.0-4.8) 1.3x10^3/uL (1.0-4.8) Monocytes # (Auto) 0.4x10^3/uL (0.0-1.1) 0.9x10^3/uL (0.0-1.1) Eosinophils # (Auto) 0.0x10^3/uL (0.0-0.7) 0.0x10^3/uL (0.0-0.7) Basophils # (Auto) 0.0x10^3/uL (0.0-0.2) 0.0x10^3/uL (0.0-0.2) Phosphorus Level 1.5mg/dL (2.6-4.7) 2.6mg/dL (2.6-4.7) Magnesium Level 1.8mg/dL (1.8-2.4) 1.8mg/dL (1.8-2.4) Albumin 1.8g/dL (3.4-5.0) 1.6g/dL (3.4-5.0) Laboratory Tests Test 01/30/17 03:48 White Blood Count 13.0x10^3/uL (4.0-11.0) Red Blood Count 4.12x10^6/uL (4.30-5.70) Hemoglobin 14.1g/dL (13.0-17.5) Hematocrit 42.4% (39.0-53.0) Mean Corpuscular Volume 103fL (79-100) Mean Corpuscular Hemoglobin 34pg (25-35) Mean Corpuscular Hemoglobin Concent 33g/dL (31-37) Red Cell Distribution Width 14.5% (11.5-14.5) Platelet Count 103x10^3/uL (140-400) Neutrophils (%) (Auto) 83% (31-73) Lymphocytes (%) (Auto) 10% (24-48) Monocytes (%) (Auto) 7% (0-9) Eosinophils (%) (Auto) 0% (0-3) Basophils (%) (Auto) 0% (0-3) Neutrophils # (Auto) 10.8x10^3uL (1.8-7.7) Lymphocytes # (Auto) 1.3x10^3/uL (1.0-4.8) Monocytes # (Auto) 0.9x10^3/uL (0.0-1.1) Eosinophils # (Auto) 0.0x10^3/uL (0.0-0.7) Basophils # (Auto) 0.0x10^3/uL (0.0-0.2) Sodium Level 141mmol/L (136-145) Potassium Level 3.7mmol/L (3.5-5.1) Chloride Level 104mmol/L (98-107) Carbon Dioxide Level 28mmol/L (21-32) Anion Gap 9 (6-14) Blood Urea Nitrogen 14mg/dL (8-26) Creatinine 1.0mg/dL (0.7-1.3) Estimated GFR (Cockcroft-Gault) 73.7 Glucose Level 109mg/dL (70-99) Calcium Level 8.8mg/dL (8.5-10.1) Phosphorus Level 2.6mg/dL (2.6-4.7) Magnesium Level 1.8mg/dL (1.8-2.4) Albumin 1.6g/dL (3.4-5.0) Microbiology 01/26/17 Gram Stain - Final, Complete Medications Current Medications Sodium Chloride (Iv Sodium Chloride 0.9% 1000ml Bag) 1,000 ml @ 100 mls/hr Q10H IV Last administered on 01/25/17 22:11; Start 01/25/17 at 22:30; Stop at 08:29; Status DC Ondansetron HCl (Zofran) 4 mg 1X ONCE IV Last administered on 01/25/17 22:12 ; Start 01/25/17 at 22:30; Stop 01/25/17 at 22:31; Status DC Fentanyl Citrate (Fentanyl 2ml Vial) 75 mcg PRN Q15MIN PRN IV PAIN GREATER THAN 3/10 Last administered on 01/26/17 00:50; Start 01/25/17 at 22:00; Stop at 21:59; Status DC Fentanyl Citrate (Fentanyl 2ml Vial) 100 mcg 1X ONCE IV Last administered on 22:12; Start 01/25/17 at 22:30; Stop 01/25/17 at 22:31; Status DC Iohexol (Omnipaque 300 Mg/ml) 75 ml 1X ONCE IV Last administered on 01/25/17 23:55; Start 01/26/17 at 00:00; Stop 01/26/17 at 00:01; Status DC Info 1 each 1 each PRN DAILY PRN MC SEE COMMENTS; Start 01/25/17 at 23:45; Stop 01/27/17 at 23:44; Status DC Piperacillin Sod/ Tazobactam Sod 3.375 gm/Sodium Chloride 50 ml @ 100 mls/hr 1X ONCE IV Last administered on 01/26/17 00:56; Start 01/26/17 at 01:00; Stop 01/26/17 at 01:29; Status DC Sodium Chloride (Iv Sodium Chloride 0.9% 1000ml Bag) 1,000 ml @ 100 mls/hr 1X ONCE IV Last administered on 01/26/17 00:53; Start 01/26/17 at 01:00; Stop at 10:59; Status DC Hydromorphone HCl (Dilaudid) 1 mg 1X ONCE IV Last administered on 01/26/17 01 :33; Start 01/26/17 at 01:30; Stop 01/26/17 at 01:34; Status DC Hydromorphone HCl 1 mg 1 mg 1X ONCE IV ; Start 01/26/17 at 02:00; Stop at 02:01; Status DC Piperacillin Sod/ Tazobactam Sod/ Sodium Chloride (Zosyn/Iv Sodium Chloride 0.9 % 50ml) 50 ml @ 100 mls/hr 1X ONCE IV Last administered on 01/26/17 02:43; Start 01/26/17 at 02:00; Stop 01/26/17 at 02:29; Status DC Dexamethasone Sodium Phosphate (Decadron) 20 mg STK-MED ONCE .ROUTE ; Start at 02:00; Stop 01/26/17 at 02:01; Status DC Ondansetron HCl 4 mg 4 mg STK-MED ONCE .ROUTE ; Start 01/26/17 at 02:00; Stop at 02:01; Status DC Propofol (Diprivan) 20 ml @ As Directed STK-MED ONCE IV ; Start 01/26/17 at 02: 00; Stop 01/26/17 at 02:01; Status DC Lidocaine HCl 100 mg STK-MED ONCE .ROUTE ; Start 01/26/17 at 02:00; Stop at 02:01; Status DC Fentanyl Citrate (Fentanyl 2ml Vial) 100 mcg STK-MED ONCE .ROUTE ; Start at 02:00; Stop 01/26/17 at 02:01; Status DC Succinylcholine Chloride (Anectine) 200 mg STK-MED ONCE .ROUTE ; Start 01/26/17 at 02:00; Stop 01/26/17 at 02:01; Status DC Rocuronium [place] (Zemuron) 50 mg STK-MED ONCE .ROUTE ; Start 01/26/17 at 02:00 ; Stop 01/26/17 at 02:01; Status DC Ondansetron HCl (Zofran) 4 mg PRN Q6HRS PRN IV Nausea; Start 01/26/17 at 02:15 ; Stop 01/27/17 at 02:14; Status DC Fentanyl Citrate (Fentanyl 2ml Vial) 25 mcg PRN Q5MIN PRN IV MILD PAIN; Start 01/26/17 at 02:15; Stop 01/27/17 at 02:14; Status DC Fentanyl Citrate (Fentanyl 2ml Vial) 50 mcg PRN Q5MIN PRN IV MODERATE PAIN; Start 01/26/17 at 02:15; Stop 01/27/17 at 02:14; Status DC Morphine Sulfate 1 mg 1 mg PRN Q10MIN PRN IV SEVERE PAIN; Start 01/26/17 at 02: 15; Stop 01/27/17 at 02:14; Status DC Lactated Ringer's (Iv Lactated Ringers) 1,000 ml @ 30 mls/hr Q24H IV ; Start at 02:09; Stop 01/26/17 at 14:08; Status DC Lidocaine HCl 2 ml 1X PRN PRN ID IV START; Start 01/26/17 at 02:15; Stop at 02:14; Status DC Hydromorphone HCl (Dilaudid) 0.5 mg PRN Q10MIN PRN IV SEV PAIN,Second choice Last administered on 01/26/17t 06:29; Start 01/26/17 at 02:15; Stop 01/27/17 at 02:14; Status DC Prochlorperazine Edisylate 5 mg 5 mg PACU PRN PRN IV NAUSEA; Start 01/26/17 at 02:15; Stop 01/27/17 at 02:14; Status DC Bacitracin/Sodium Chloride (Iv Sodium Chloride 0.9% 500ml Bag) 500 ml @ 500 mls /hr 1X PERIOP ONCE IRR ; Start 01/26/17 at 03:00; Stop 01/26/17 at 03:59; Status DC Hydrocortisone Sodium Succinate (Solu-Cortef) 100 mg STK-MED ONCE .ROUTE ; Start 01/26/17 at 02:24; Stop 01/26/17 at 02:25; Status DC Sevoflurane (Ultane) 90 ml STK-MED ONCE IH ; Start 01/26/17 at 03:16; Stop 01/26 at 03:17; Status DC Phenylephrine HCl 1 mg STK-MED ONCE IV ; Start 01/26/17 at 03:17; Stop 01/26/17 at 03:18; Status DC Phenylephrine HCl (Bhargav-Synephrine Inj) 10 mg STK-MED ONCE .ROUTE ; Start at 03:32; Stop 01/26/17 at 03:33; Status DC Rocuronium [place] (Zemuron) 50 mg STK-MED ONCE .ROUTE ; Start 01/26/17 at 03:36 ; Stop 01/26/17 at 03:37; Status DC Cellulose 1 each STK-MED ONCE .ROUTE Last administered on 01/26/17t 02:47; Start 01/26/17 at 03:38; Stop 01/26/17 at 03:39; Status DC Glycopyrrolate (Robinul) 1 mg STK-MED ONCE .ROUTE ; Start 01/26/17 at 04:23; Stop 01/26/17 at 04:24; Status DC Neostigmine Methylsulfate 5 mg STK-MED ONCE .ROUTE ; Start 01/26/17 at 04:23; Stop 01/26/17 at 04:24; Status DC Sevoflurane (Ultane) 90 ml STK-MED ONCE IH ; Start 01/26/17 at 04:23; Stop 01/26 at 04:24; Status DC Esmolol HCl (Brevibloc) 100 mg STK-MED ONCE IV ; Start 01/26/17 at 04:28; Stop 01/26/17 at 04:29; Status DC Fentanyl Citrate 100 mcg 100 mcg STK-MED ONCE .ROUTE ; Start 01/26/17 at 05:09; Stop 01/26/17 at 05:10; Status DC Metronidazole (FLAGYL 500Mmg PREMIX) 100 ml @ 100 mls/hr Q12HR IV ; Start 01/26 at 09:00; Stop 01/26/17 at 09:00; Status DC Diphenhydramine HCl (Benadryl) 25 mg PRN Q6HRS PRN IV ITCHING Last administered on 01/29/17 20:17; Start 01/26/17 at 05:45 Famotidine (Pepcid) 20 mg BID IVP Last administered on 01/26/17 21:22; Start 01/26/17 at 09:00; Stop 01/27/17 at 08:10; Status DC Enoxaparin Sodium (Lovenox 40mg Syringe) 40 mg Q24H SQ Last administered on 08:48; Start 01/26/17 at 09:00; Stop 01/27/17 at 15:59; Status DC Sodium Chloride 3 ml 3 ml QSHIFT PRN IV AFTER MEDS AND BLOOD DRAWS; Start 01/26 at 05:45 Potassium Chloride/Sodium Chloride 1,000 ml @ 100 mls/hr Q10H IV Last administered on 01/26/17 21:24; Start 01/26/17 at 06:00; Stop 01/27/17 at 13:26 ; Status DC Hydromorphone HCl (Dilaudid Standard POLICE PATROL OFFICER) 30 ml @ 0 mls/hr CONT PRN PRN IV PROTOCOL Last administered on 01/28/17 01:36; Start 01/26/17 at 05:45; Stop at 08:37; Status DC Hydromorphone HCl (Dilaudid) 1 mg PRN Q1HR PRN IV MODERATE PAIN; Start at 05:45 Ondansetron HCl (Zofran) 4 mg PRN Q6HRS PRN IV NAUESA, 1ST CHOICE; Start at 05:45 Throat Lozenges (Chloraseptic) 1 spray PRN Q2HR PRN PO SORE THROAT; Start 01/26 at 05:45 Throat Lozenges (Cepacol Sore Throat Lozenge) 1 west PRN Q2HRS PRN PO SORE THROAT; Start 01/26/17 at 05:45 Nicotine 1 patch 1 patch DAILY TD Last administered on 01/30/17 09:26; Start 01/26/17 at 09:00 Piperacillin Sod/ Tazobactam Sod/ Sodium Chloride (Zosyn/Iv Sodium Chloride 0.9 % 50ml) 50 ml @ 100 mls/hr Q6HRS IV Last administered on 01/30/17 06:05; Start 01/26/17 at 08:00 Vancomycin HCl 1 each 1 each PRN DAILY PRN MC SEE COMMENTS Last administered on 01/29/17 08:16; Start 01/26/17 at 07:45; Stop 01/30/17 at 09:19; Status DC Vancomycin HCl 2 gm/Sodium Chloride 500 ml @ 250 mls/hr 1X ONCE IV Last administered on 01/26/17 09:02; Start 01/26/17 at 08:00; Stop 01/26/17 at 09:59 ; Status DC Vancomycin HCl/ Sodium Chloride (Iv Sodium Chloride 0.9% 250ml) 250 ml @ 167 mls/hr Q12H IV Last administered on 01/26/17 21:22; Start 01/26/17 at 21:00; Stop 01/27/17 at 09:36; Status DC Vancomycin HCl 1 each 1X ONCE MC Last administered on 01/27/17 08:30; Start 01/27/17 at 08:30; Stop 01/27/17 at 08:31; Status DC Famotidine 20 mg 20 mg QHS IVP Last administered on 01/29/17 21:44; Start at 21:00 Vancomycin HCl/ Sodium Chloride (Iv Sodium Chloride 0.9% 250ml) 250 ml @ 167 mls/hr Q24H IV Last administered on 01/28/17 21:49; Start 01/27/17 at 22:00; Stop 01/28/17 at 23:00; Status DC Vancomycin HCl 1 each 1 each 1X ONCE MC Last administered on 01/28/17 21:30; Start 01/28/17 at 21:30; Stop 01/28/17 at 21:31; Status DC Diltiazem HCl 125 mg/Dextrose 125 ml @ 0 mls/hr CONT PRN IV SEE I/O RECORD Last administered on 01/27/17 23:12; Start 01/27/17 at 11:45; Stop 01/29/17 at 08:37; Status DC Sodium Chloride (Iv Sodium Chloride 0.45%) 1,000 ml @ 100 mls/hr 1X ONCE IV Last administered on 01/27/17 13:30; Start 01/27/17 at 13:30; Stop 01/27/17 at 23:29; Status DC Enoxaparin Sodium (Lovenox Per Pharmacy Treatment Dosing) 1 each PRN DAILY PRN MC SEE COMMENTS; Start 01/27/17 at 16:00; Stop 01/28/17 at 12:15; Status DC Enoxaparin Sodium 75 mg 75 mg Q12HR SQ Last administered on 01/28/17 09:07; Start 01/27/17 at 18:00; Stop 01/28/17 at 12:15; Status DC Magnesium Sulfate/ Dextrose 50 ml @ 25 mls/hr PRN DAILY PRN IV for Mag < 1.7 on am labs; Start 01/27/17 at 17:45; Stop 01/30/17 at 10:08; Status DC Sodium Chloride (Iv Sodium Chloride 0.9% 500ml Bag) 500 ml @ 0 mls/hr QID PRN IV For MAP < 65; Start 01/27/17 at 17:45; Stop 01/30/17 at 10:08; Status DC Info (Anti-Coagulation Monitoring By Pharmacy) 1 each PRN DAILY PRN MC SEE COMMENTS Last administered on 01/28/17 07:45; Start 01/28/17 at 07:45; Stop at 14:34; Status DC Enoxaparin Sodium 40 mg 40 mg Q24H SQ Last administered on 01/30/17 09:26; Start 01/29/17 at 09:00 Vancomycin HCl/ Sodium Chloride (Iv Sodium Chloride 0.9% 250ml) 250 ml @ 167 mls/hr Q12H IV Last administered on 01/29/17 21:45; Start 01/29/17 at 10:00; Stop 01/30/17 at 09:19; Status DC Vancomycin HCl 1 each 1X ONCE MC ; Start 01/30/17 at 09:30; Stop 01/30/17 at 09 :31; Status Cancel Oxycodone/ Acetaminophen (Percocet 10/325) 1 tab PRN Q4HRS PRN PO pain Last administered on 01/29/17 23:07; Start 01/29/17 at 08:45 Oxycodone/ Acetaminophen 1 tab 1 tab PRN Q4HRS PRN PO PAIN Last administered on 01/29/17 19:03; Start 01/29/17 at 08:45 Sodium Chloride (Iv Sodium Chloride 0.9% 1000ml Bag) 1,000 ml @ 75 mls/hr 1X ONCE IV Last administered on 01/30/17 09:25; Start 01/30/17 at 09:00; Stop at 22:19 Digoxin (Lanoxin) 250 mcg 1X ONCE IV Last administered on 01/30/17 09:25; Start 01/30/17 at 09:00; Stop 01/30/17 at 09:01; Status DC Active Scripts Active Reported Remicade (Infliximab) 100 Mg Vial 100 Mg IV Q8HRS Vitals/I & O Vital Sign - Last 24 Hours 01/29/17 01/29/17 01/29/17 01/29/17 11:00 11:05 12:00 12:00 Temp 98.6 98.6 Pulse 108 114 Resp 22 20 B/P 78/62 105/68 Pulse Ox 96 95 96 O2 Delivery Room Air Room Air Room Air 01/29/17 01/29/17 01/29/17 01/29/17 13:00 14:00 15:00 16:00 Pulse 106 108 112 Resp 20 20 18 18 B/P 100/66 99/61 102/84 115/86 Pulse Ox 96 95 95 95 O2 Delivery Room Air Room Air Room Air Room Air 01/29/17 01/29/17 01/29/17 01/29/17 16:00 17:00 18:00 19:03 Pulse 118 112 Resp 20 18 22 B/P Pulse Ox 98 97 96 O2 Delivery Room Air Room Air Room Air Room Air O2 Flow Rate 4.0 01/29/17 01/29/17 01/29/17 01/29/17 20:03 20:15 20:40 22:47 Temp 98.1 97.9 98.1 97.9 Pulse 119 109 Resp 18 18 18 B/P 92/66 95/64 Pulse Ox 93 91 O2 Delivery Room Air Room Air Room Air Room Air 01/29/17 01/30/17 01/30/17 01/30/17 23:07 00:07 03:42 07:00 Temp 97.6 97.9 97.6 97.9 Pulse 104 105 Resp 18 18 18 20 B/P 93/66 113/80 Pulse Ox 91 93 O2 Delivery Room Air Room Air Room Air Room Air 01/30/17 01/30/17 07:54 09:25 Pulse 105 B/P 113/80 O2 Delivery Room Air Intake and Output 01/29/17 01/29/17 01/30/17 15:00 23:00 07:00 Intake Total 240 ml Output Total 320 ml 125 ml 460 ml Balance -320 ml -125 ml -220 ml SILAS [place] MD Jan 30, 2017 10:19
[2017-01-30 11:00] VITALS: BP 112/72
--- NOTE | 2017-01-30 11:18 | PDOC ---
FERNANDO CEJA APPEALS COORDINATOR 01/30/17 1118: SURGICAL PROGRESS NOTE Subjective tolerating diet with emesis, not taking much however up in chair, bed is uncomfortable Vital Signs Vital Signs Date Time Temp Pulse Resp B/P Pulse Ox O2 Delivery O2 Flow Rate FiO2 01/30/17 09:25 105 113/80 01/30/17 07:54 Room Air 01/30/17 07:00 97.9 20 93 97.9 01/29/17 16:00 4.0 I&O Intake and Output 01/30/17 07:00 Intake Total 240 ml Output Total 905 ml Balance -665 ml Intake Oral 240 ml Output Urine Total 845 ml Drainage Total 60 ml General: Alert, Oriented X3, Cooperative, No acute distress Abdomen: Soft, Other (meliton removed, wound without drainage, drain in place, stoma pink) Labs Laboratory Tests Test 01/28/17 13:50 01/28/17 21:15 01/29/17 04:40 01/30/17 03:48 White Blood Count 15.5x10^3/uL (4.0-11.0) 15.4x10^3/uL (4.0-11.0) 13.0x10^3/uL (4.0-11.0) Red Blood Count 4.09x10^6/uL (4.30-5.70) 4.22x10^6/uL (4.30-5.70) 4.12x10^6/uL (4.30-5.70) Hemoglobin 14.1g/dL (13.0-17.5) 14.4g/dL (13.0-17.5) 14.1g/dL (13.0-17.5) Hematocrit 42.1% (39.0-53.0) 43.2% (39.0-53.0) 42.4% (39.0-53.0) Mean Corpuscular Volume 103fL (79-100) 102fL (79-100) 103fL (79-100) Mean Corpuscular Hemoglobin 34pg (25-35) 34pg (25-35) 34pg (25-35) Mean Corpuscular Hemoglobin Concent 33g/dL (31-37) 33g/dL (31-37) 33g/dL (31-37) Red Cell Distribution Width 15.2% (11.5-14.5) 14.7% (11.5-14.5) 14.5% (11.5-14.5) Platelet Count 98x10^3/uL (140-400) 94x10^3/uL (140-400) 103x10^3/uL (140-400) Sodium Level 139mmol/L (136-145) 138mmol/L (136-145) 141mmol/L (136-145) Potassium Level 4.0mmol/L (3.5-5.1) 3.5mmol/L (3.5-5.1) 3.7mmol/L (3.5-5.1) Chloride Level 106mmol/L (98-107) 103mmol/L (98-107) 104mmol/L (98-107) Carbon Dioxide Level 27mmol/L (21-32) 29mmol/L (21-32) 28mmol/L (21-32) Anion Gap 6 (6-14) 6 (6-14) 9 (6-14) Blood Urea Nitrogen 23mg/dL (8-26) 15mg/dL (8-26) 14mg/dL (8-26) Creatinine 1.0mg/dL (0.7-1.3) 0.9mg/dL (0.7-1.3) 1.0mg/dL (0.7-1.3) Estimated GFR (Cockcroft-Gault) 73.7 83.2 73.7 Glucose Level 91mg/dL (70-99) 85mg/dL (70-99) 109mg/dL (70-99) Calcium Level 8.4mg/dL (8.5-10.1) 8.6mg/dL (8.5-10.1) 8.8mg/dL (8.5-10.1) Vancomycin Level Trough 7.9mcg/mL (10.0-20.0) Vancomycin Last Dose Date 01/27/17 Vancomycin Last Dose Time 2200 Neutrophils (%) (Auto) 89% (31-73) 83% (31-73) Lymphocytes (%) (Auto) 8% (24-48) 10% (24-48) Monocytes (%) (Auto) 3% (0-9) 7% (0-9) Eosinophils (%) (Auto) 0% (0-3) 0% (0-3) Basophils (%) (Auto) 0% (0-3) 0% (0-3) Neutrophils # (Auto) 13.8x10^3uL (1.8-7.7) 10.8x10^3uL (1.8-7.7) Lymphocytes # (Auto) 1.2x10^3/uL (1.0-4.8) 1.3x10^3/uL (1.0-4.8) Monocytes # (Auto) 0.4x10^3/uL (0.0-1.1) 0.9x10^3/uL (0.0-1.1) Eosinophils # (Auto) 0.0x10^3/uL (0.0-0.7) 0.0x10^3/uL (0.0-0.7) Basophils # (Auto) 0.0x10^3/uL (0.0-0.2) 0.0x10^3/uL (0.0-0.2) Phosphorus Level 1.5mg/dL (2.6-4.7) 2.6mg/dL (2.6-4.7) Magnesium Level 1.8mg/dL (1.8-2.4) 1.8mg/dL (1.8-2.4) Albumin 1.8g/dL (3.4-5.0) 1.6g/dL (3.4-5.0) Laboratory Tests Test 01/30/17 03:48 White Blood Count 13.0x10^3/uL (4.0-11.0) Red Blood Count 4.12x10^6/uL (4.30-5.70) Hemoglobin 14.1g/dL (13.0-17.5) Hematocrit 42.4% (39.0-53.0) Mean Corpuscular Volume 103fL (79-100) Mean Corpuscular Hemoglobin 34pg (25-35) Mean Corpuscular Hemoglobin Concent 33g/dL (31-37) Red Cell Distribution Width 14.5% (11.5-14.5) Platelet Count 103x10^3/uL (140-400) Neutrophils (%) (Auto) 83% (31-73) Lymphocytes (%) (Auto) 10% (24-48) Monocytes (%) (Auto) 7% (0-9) Eosinophils (%) (Auto) 0% (0-3) Basophils (%) (Auto) 0% (0-3) Neutrophils # (Auto) 10.8x10^3uL (1.8-7.7) Lymphocytes # (Auto) 1.3x10^3/uL (1.0-4.8) Monocytes # (Auto) 0.9x10^3/uL (0.0-1.1) Eosinophils # (Auto) 0.0x10^3/uL (0.0-0.7) Basophils # (Auto) 0.0x10^3/uL (0.0-0.2) Sodium Level 141mmol/L (136-145) Potassium Level 3.7mmol/L (3.5-5.1) Chloride Level 104mmol/L (98-107) Carbon Dioxide Level 28mmol/L (21-32) Anion Gap 9 (6-14) Blood Urea Nitrogen 14mg/dL (8-26) Creatinine 1.0mg/dL (0.7-1.3) Estimated GFR (Cockcroft-Gault) 73.7 Glucose Level 109mg/dL (70-99) Calcium Level 8.8mg/dL (8.5-10.1) Phosphorus Level 2.6mg/dL (2.6-4.7) Magnesium Level 1.8mg/dL (1.8-2.4) Albumin 1.6g/dL (3.4-5.0) Problem List Problems Medical Problems: (1) Perforated abdominal viscus Status: Acute Assessment/Plan stable wound clean full liquids, no stool in ostomy yet plts up to 103 Problems: RON GROSS MD 01/30/17 1417: SURGICAL PROGRESS NOTE Assessment/Plan pt seen and examined distended, soft will start procalamine await return of bowel function Dr Rosado to follow over the weekend Problems: FERNANDO CEJA APRN Jan 30, 2017 11:18 RON GROSS MD Jan 30, 2017 14:17
--- NOTE | 2017-01-30 12:12 | PDOC ---
CARDIO Progress Notes Date and Time Date of Service 01/30/17 Time of Evaluation 1140 Subjective Subjective: No Chest Pain, No shortness of breath, Other (in chair this morning ; tired, decreased intake) Vitals Vitals Vital Signs Date Time Temp Pulse Resp B/P Pulse Ox O2 Delivery O2 Flow Rate FiO2 01/30/17 11:00 97.5 107 20 112/72 95 Room Air 97.5 01/29/17 16:00 4.0 Weight Weight [ ] Input and Output Intake and Output Intake and Output 01/30/17 07:00 Intake Total 240 ml Output Total 905 ml Balance -665 ml Intake Oral 240 ml Output Urine Total 845 ml Drainage Total 60 ml Laboratory Labs Laboratory Tests Test 01/30/17 03:48 White Blood Count 13.0x10^3/uL (4.0-11.0) Red Blood Count 4.12x10^6/uL (4.30-5.70) Hemoglobin 14.1g/dL (13.0-17.5) Hematocrit 42.4% (39.0-53.0) Mean Corpuscular Volume 103fL (79-100) Mean Corpuscular Hemoglobin 34pg (25-35) Mean Corpuscular Hemoglobin Concent 33g/dL (31-37) Red Cell Distribution Width 14.5% (11.5-14.5) Platelet Count 103x10^3/uL (140-400) Neutrophils (%) (Auto) 83% (31-73) Lymphocytes (%) (Auto) 10% (24-48) Monocytes (%) (Auto) 7% (0-9) Eosinophils (%) (Auto) 0% (0-3) Basophils (%) (Auto) 0% (0-3) Neutrophils # (Auto) 10.8x10^3uL (1.8-7.7) Lymphocytes # (Auto) 1.3x10^3/uL (1.0-4.8) Monocytes # (Auto) 0.9x10^3/uL (0.0-1.1) Eosinophils # (Auto) 0.0x10^3/uL (0.0-0.7) Basophils # (Auto) 0.0x10^3/uL (0.0-0.2) Sodium Level 141mmol/L (136-145) Potassium Level 3.7mmol/L (3.5-5.1) Chloride Level 104mmol/L (98-107) Carbon Dioxide Level 28mmol/L (21-32) Anion Gap 9 (6-14) Blood Urea Nitrogen 14mg/dL (8-26) Creatinine 1.0mg/dL (0.7-1.3) Estimated GFR (Cockcroft-Gault) 73.7 Glucose Level 109mg/dL (70-99) Calcium Level 8.8mg/dL (8.5-10.1) Phosphorus Level 2.6mg/dL (2.6-4.7) Magnesium Level 1.8mg/dL (1.8-2.4) Albumin 1.6g/dL (3.4-5.0) Microbiology Micro Microbiology 01/26/17 Gram Stain - Final, Complete Physical Exam HEENT: Neck Supple W Full Motion Chest: Symmetric LUNGS: Clear to Auscultation Heart: S1S2, irregularly irregular, other (tele AFIB rate 90-100) Abdomen: Other (colostomy, abdominal tenderness ) Extremities: 2+ Dorsalis Pedis, No Edema, No Calf Tenderness Neurology: alert, oriented, follow commands Assessment Assessment 1. Atrial fibrillation with RVR, paroxysmal 2. Perforated viscus, s/p resection with end colostomy 3. Crohn's Dx 4. Leukocytosis Recommendations Contacted by RN for HR sustained 120-130 this morning; BP remains marginal- Dose IV digoxin administered; HR responded well. Fluid/overall intake decreased; will give gentle hydration Continue supportive care. Monitor rhythm; consider anticoagulation therapy upon discharge if remains in AFIB 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 APRN Jan 30, 2017 12:12
[2017-01-30 15:00] VITALS: BP 99/67
[2017-01-30] MEDS: AA 2.75%/CALCIUM/LYTES/D5W 2,000 ML IV SCH (16:49)
[2017-01-30 19:43] VITALS: BP 103/71
[2017-01-30] MEDS: FAMOTIDINE 20 MG/2 ML VIAL IVP SCH (21:50)
[2017-01-30] MEDS: DIPHENHYDRAMINE 50 MG/ML VIAL IV PRN (21:50)
[2017-01-30 23:14] VITALS: BP 115/75
[2017-01-31] MEDS: PIPERACILLIN/TAZOBACTAM 3.375 GM in IV NORMAL SALINE 50ML 50 ML IV SCH ×5 (00:31→23:54)
[2017-01-31 03:02] VITALS: BP 104/68
[2017-01-31] MEDS ORDERED: HALOPERIDOL LACT 5 MG/ML VIAL. IVP PRN (05:00)
[2017-01-31] MEDS: OXYCODONE/APAP 5/325 TABLET. PO PRN (05:49)
[2017-01-31 06:01] LABS: BASO % 0 % (0-3); EOS % 0 % (0-3); HEMATOCRIT 43.5 % (39.0-53.0); HEMOGLOBIN 14.7 g/dL (13.0-17.5); LYMPH # 1.2 x10^3/uL (1.0-4.8); LYMPH % 10 % (24-48); MEAN CORPUSCULAR HEMOGLOBIN 34 pg (25-35); MEAN CORPUSCULAR HGB CONC 34 g/dL (31-37); MEAN CORPUSCULAR VOLUME 101 fL (79-100); MONO % 11 % (0-9); NEUT % 79 % (31-73); PLATELET COUNT 121 x10^3/uL (140-400); RED BLOOD COUNT 4.29 x10^6/uL (4.30-5.70); RED CELL DISTRIBUTION WIDTH 14.7 % (11.5-14.5); WHITE BLOOD COUNT 11.1 x10^3/uL (4.0-11.0)
[2017-01-31 06:19] LABS: ALBUMIN 1.8 g/dL (3.4-5.0); CALCIUM 8.8 mg/dL (8.5-10.1); CREATININE 1.1 mg/dL (0.7-1.3); PHOSPHORUS 3.6 mg/dL (2.6-4.7); POTASSIUM 3.4 mmol/L (3.5-5.1)
[2017-01-31 07:00] VITALS: BP 93/64
--- NOTE | 2017-01-31 08:53 | PDOC ---
FERNANDO CEJA MUSEUM ASSISTANT 01/31/17 0853: SURGICAL PROGRESS NOTE Subjective increased confusion, required Haldol pulling at tubes, aggressive behavior to staff overnight he is not able to appropriately answer my questions this AM his speech is more slurred/garbled today Vital Signs Vital Signs Date Time Temp Pulse Resp B/P Pulse Ox O2 Delivery O2 Flow Rate FiO2 01/31/17 07:00 97.9 114 20 93/64 93 Room Air 97.9 I&O Intake and Output 01/31/17 07:00 Intake Total 709 ml Output Total 1065 ml Balance -356 ml Intake Oral 150 ml Other 559 ml Output Urine Total 1035 ml Drainage Total 30 ml General: No acute distress, Other (not oriented ) Abdomen: Soft, Other (incision c/d/i, no erythema, drains in place, serosang) Labs Laboratory Tests Test 01/30/17 03:48 01/31/17 04:40 White Blood Count 13.0x10^3/uL (4.0-11.0) 11.1x10^3/uL (4.0-11.0) Red Blood Count 4.12x10^6/uL (4.30-5.70) 4.29x10^6/uL (4.30-5.70) Hemoglobin 14.1g/dL (13.0-17.5) 14.7g/dL (13.0-17.5) Hematocrit 42.4% (39.0-53.0) 43.5% (39.0-53.0) Mean Corpuscular Volume 103fL (79-100) 101fL (79-100) Mean Corpuscular Hemoglobin 34pg (25-35) 34pg (25-35) Mean Corpuscular Hemoglobin Concent 33g/dL (31-37) 34g/dL (31-37) Red Cell Distribution Width 14.5% (11.5-14.5) 14.7% (11.5-14.5) Platelet Count 103x10^3/uL (140-400) 121x10^3/uL (140-400) Neutrophils (%) (Auto) 83% (31-73) 79% (31-73) Lymphocytes (%) (Auto) 10% (24-48) 10% (24-48) Monocytes (%) (Auto) 7% (0-9) 11% (0-9) Eosinophils (%) (Auto) 0% (0-3) 0% (0-3) Basophils (%) (Auto) 0% (0-3) 0% (0-3) Neutrophils # (Auto) 10.8x10^3uL (1.8-7.7) 8.7x10^3uL (1.8-7.7) Lymphocytes # (Auto) 1.3x10^3/uL (1.0-4.8) 1.2x10^3/uL (1.0-4.8) Monocytes # (Auto) 0.9x10^3/uL (0.0-1.1) 1.2x10^3/uL (0.0-1.1) Eosinophils # (Auto) 0.0x10^3/uL (0.0-0.7) 0.0x10^3/uL (0.0-0.7) Basophils # (Auto) 0.0x10^3/uL (0.0-0.2) 0.0x10^3/uL (0.0-0.2) Sodium Level 141mmol/L (136-145) 142mmol/L (136-145) Potassium Level 3.7mmol/L (3.5-5.1) 3.4mmol/L (3.5-5.1) Chloride Level 104mmol/L (98-107) 104mmol/L (98-107) Carbon Dioxide Level 28mmol/L (21-32) 29mmol/L (21-32) Anion Gap 9 (6-14) 9 (6-14) Blood Urea Nitrogen 14mg/dL (8-26) 21mg/dL (8-26) Creatinine 1.0mg/dL (0.7-1.3) 1.1mg/dL (0.7-1.3) Estimated GFR (Cockcroft-Gault) 73.7 66.0 Glucose Level 109mg/dL (70-99) 103mg/dL (70-99) Calcium Level 8.8mg/dL (8.5-10.1) 8.8mg/dL (8.5-10.1) Phosphorus Level 2.6mg/dL (2.6-4.7) 3.6mg/dL (2.6-4.7) Magnesium Level 1.8mg/dL (1.8-2.4) 1.8mg/dL (1.8-2.4) Albumin 1.6g/dL (3.4-5.0) 1.8g/dL (3.4-5.0) Laboratory Tests Test 01/31/17 04:40 White Blood Count 11.1x10^3/uL (4.0-11.0) Red Blood Count 4.29x10^6/uL (4.30-5.70) Hemoglobin 14.7g/dL (13.0-17.5) Hematocrit 43.5% (39.0-53.0) Mean Corpuscular Volume 101fL (79-100) Mean Corpuscular Hemoglobin 34pg (25-35) Mean Corpuscular Hemoglobin Concent 34g/dL (31-37) Red Cell Distribution Width 14.7% (11.5-14.5) Platelet Count 121x10^3/uL (140-400) Neutrophils (%) (Auto) 79% (31-73) Lymphocytes (%) (Auto) 10% (24-48) Monocytes (%) (Auto) 11% (0-9) Eosinophils (%) (Auto) 0% (0-3) Basophils (%) (Auto) 0% (0-3) Neutrophils # (Auto) 8.7x10^3uL (1.8-7.7) Lymphocytes # (Auto) 1.2x10^3/uL (1.0-4.8) Monocytes # (Auto) 1.2x10^3/uL (0.0-1.1) Eosinophils # (Auto) 0.0x10^3/uL (0.0-0.7) Basophils # (Auto) 0.0x10^3/uL (0.0-0.2) Sodium Level 142mmol/L (136-145) Potassium Level 3.4mmol/L (3.5-5.1) Chloride Level 104mmol/L (98-107) Carbon Dioxide Level 29mmol/L (21-32) Anion Gap 9 (6-14) Blood Urea Nitrogen 21mg/dL (8-26) Creatinine 1.1mg/dL (0.7-1.3) Estimated GFR (Cockcroft-Gault) 66.0 Glucose Level 103mg/dL (70-99) Calcium Level 8.8mg/dL (8.5-10.1) Phosphorus Level 3.6mg/dL (2.6-4.7) Magnesium Level 1.8mg/dL (1.8-2.4) Albumin 1.8g/dL (3.4-5.0) Problem List Problems Medical Problems: (1) Perforated abdominal viscus Status: Acute Assessment/Plan s/p resection increased confusion, slurred speech- will place a neurology consult Problems: RYAN AUSTIN MD 02/01/17 0747: SURGICAL PROGRESS NOTE Assessment/Plan Reviewed, agree with above Problems: FERNANDO CEJA APRN Jan 31, 2017 08:53 RYAN AUSTIN MD Feb 01, 2017 07:47
[2017-01-31] MEDS ORDERED: POTASSIUM CHLORIDE 20MEQ 50 ML IV ONE (09:30)
--- NOTE | 2017-01-31 09:36 | PDOC ---
LUIS DANIEL CLIFTON SPRAY DRY OPERATOR 01/31/17 0936: CARDIO Progress Notes Date and Time Date of Service 01/31/2017 Time of Evaluation 0910 Subjective Subjective: No Chest Pain, No shortness of breath, Other (laying supine, complains of back pain 10 out of 0-10, wants to sit up. ) Vitals Vitals Vital Signs Date Time Temp Pulse Resp B/P Pulse Ox O2 Delivery O2 Flow Rate FiO2 01/31/17 07:00 97.9 114 20 93/64 93 Room Air 97.9 Weight Weight [ ] Input and Output Intake and Output Intake and Output 01/31/17 07:00 Intake Total 709 ml Output Total 1065 ml Balance -356 ml Intake Oral 150 ml Other 559 ml Output Urine Total 1035 ml Drainage Total 30 ml Laboratory Labs Laboratory Tests Test 01/31/17 04:40 White Blood Count 11.1x10^3/uL (4.0-11.0) Red Blood Count 4.29x10^6/uL (4.30-5.70) Hemoglobin 14.7g/dL (13.0-17.5) Hematocrit 43.5% (39.0-53.0) Mean Corpuscular Volume 101fL (79-100) Mean Corpuscular Hemoglobin 34pg (25-35) Mean Corpuscular Hemoglobin Concent 34g/dL (31-37) Red Cell Distribution Width 14.7% (11.5-14.5) Platelet Count 121x10^3/uL (140-400) Neutrophils (%) (Auto) 79% (31-73) Lymphocytes (%) (Auto) 10% (24-48) Monocytes (%) (Auto) 11% (0-9) Eosinophils (%) (Auto) 0% (0-3) Basophils (%) (Auto) 0% (0-3) Neutrophils # (Auto) 8.7x10^3uL (1.8-7.7) Lymphocytes # (Auto) 1.2x10^3/uL (1.0-4.8) Monocytes # (Auto) 1.2x10^3/uL (0.0-1.1) Eosinophils # (Auto) 0.0x10^3/uL (0.0-0.7) Basophils # (Auto) 0.0x10^3/uL (0.0-0.2) Sodium Level 142mmol/L (136-145) Potassium Level 3.4mmol/L (3.5-5.1) Chloride Level 104mmol/L (98-107) Carbon Dioxide Level 29mmol/L (21-32) Anion Gap 9 (6-14) Blood Urea Nitrogen 21mg/dL (8-26) Creatinine 1.1mg/dL (0.7-1.3) Estimated GFR (Cockcroft-Gault) 66.0 Glucose Level 103mg/dL (70-99) Calcium Level 8.8mg/dL (8.5-10.1) Phosphorus Level 3.6mg/dL (2.6-4.7) Magnesium Level 1.8mg/dL (1.8-2.4) Albumin 1.8g/dL (3.4-5.0) Microbiology Micro Microbiology 01/26/17 Gram Stain - Final, Complete Physical Exam HEENT: Neck Supple W Full Motion Chest: Symmetric LUNGS: Other (bibasilar crackles) Heart: S1S2, irregularly irregular (90-100), other (tele AFIB rate 90-100) Abdomen: Other (colostomy, abdominal tenderness) Extremities: 2+ Dorsalis Pedis, No Edema, No Calf Tenderness Neurology: alert, oriented, follow commands Assessment Assessment 1. Atrial fibrillation with RVR: currently on AFIB 90-100. Paroxysmal RVR overnight in the 130s, back pain contributing 2. Perforated viscus, s/p resection with end colostomy: now on [place] diet but remains to have emesis intermittently 3. Crohn's Dx 4. Leukocytosis 5. Metabolic encephalopathy: period of confusion. Per girlfriend pt does heavy ETOH use. Currently AOx3. Recommendations 1. Dig IV daily. Replace K. On PPN. BP intermittently low would not be able to handle BB at this time. 2. Would recommend at least ASA for stroke prevention if ok with PCP/general surgery. Would recommend future anticoagulation once cleared by others. 3. Continue supportive care. 4. ETOH withdrawal protocol per PCP. 5. Pain control as ordered. KATIE PARK MD 01/31/17 1003: CARDIO Progress Notes Plan Plan Pt seen and examined. Agree with CRANE CREW SUPERVISOR note. Seems tangential today on neuro exam. A/O x 3. Mild distress from abd pain Soft abdomen Irr irr rhythm. Labs reviewed. IV dig daily until able to take p.o Monitor lytes. Will follow along Still has serosang output from drains, hold anticoagulation until closer to discharge. LUIS DANIEL CLIFTON APRN Jan 31, 2017 09:36 KATIE PARK MD Jan 31, 2017 10:03
[2017-01-31] MEDS: OXYCODONE/APAP 10/325 TABLET. PO PRN (09:47)
[2017-01-31] MEDS: NICOTINE 21MG PATCH. TD SCH (09:48)
[2017-01-31] MEDS: ENOXAPARIN 40 MG/0.4 ML SYRINGE. SQ SCH (09:52)
[2017-01-31] MEDS: DIGOXIN 500 MCG/2 ML AMPUL. IV SCH (09:57)
--- NOTE | 2017-01-31 10:23 | RAD ---
Indication difficulty breathing. Pneumonia. A single view of the chest was obtained. Comparison is made to an exam 6 days earlier. There is now patchy infiltrate, compatible with atelectasis or pneumonia, in the left lower lobe. Minimal volume loss is seen at the right lung base and diagnostic considerations are the same. The heart and pulmonary vessels are unremarkable. There is no pneumothorax. IMPRESSION: Volume loss at the lung bases left greater than right compatible with atelectasis or pneumonia
[2017-01-31 11:00] VITALS: BP 92/59
[2017-01-31] MEDS: POTASSIUM CHLORIDE 10MEQ 100 ML IV SCH ×2 (11:27→12:33)
[2017-01-31] MEDS: HYDROMORPHONE 2 MG/ML VIAL. IV PRN ×2 (11:42→23:58)
[2017-01-31] MEDS: DIPHENHYDRAMINE 50 MG/ML VIAL IV PRN (11:44)
[2017-01-31 11:55] LABS: BILIRUBIN,URINE NEGATIVE (NEG); GLUCOSE,URINE NEGATIVE (NEG); NITRITE,URINE NEGATIVE (NEG); PH,URINE 5.5; PROTEIN,URINE 30 mg/dL (NEG-TRACE); UROBILINOGEN,URINE 0.2 mg/dL (0.2 mg/dL)
--- NOTE | 2017-01-31 12:03 | PDOC ---
Infectious Disease Note Subjective Subjective Confused, impulsive and combative, pulling at drains per nurse now on 1:1 observation Patient says he is comfortable at the moment Denies N/V No fevers ROS ROS Vital Sign Vital Signs Vital Signs Date Time Temp Pulse Resp B/P Pulse Ox O2 Delivery O2 Flow Rate FiO2 01/31/17 11:42 18 Room Air 01/31/17 11:00 111 92/59 96 01/31/17 07:00 97.9 97.9 Physical Exam PHYSICAL EXAM GENERAL: Propped up in bed, NAD HEENT: PERRL, OC/OP very dry NECK: Supple LUNGS: Clear HEART: S1S2, no gallop, no murmur ABD: Distended, NT light palpation. Ostomy. drains x 2. EXT: No edema, no cyanosis CHILDHOOD TEACHER: Alert, little irritable but coop, speech garbled SKIN: No rash Labs Lab Laboratory Tests Test 01/31/17 04:40 White Blood Count 11.1x10^3/uL (4.0-11.0) Red Blood Count 4.29x10^6/uL (4.30-5.70) Hemoglobin 14.7g/dL (13.0-17.5) Hematocrit 43.5% (39.0-53.0) Mean Corpuscular Volume 101fL (79-100) Mean Corpuscular Hemoglobin 34pg (25-35) Mean Corpuscular Hemoglobin Concent 34g/dL (31-37) Red Cell Distribution Width 14.7% (11.5-14.5) Platelet Count 121x10^3/uL (140-400) Neutrophils (%) (Auto) 79% (31-73) Lymphocytes (%) (Auto) 10% (24-48) Monocytes (%) (Auto) 11% (0-9) Eosinophils (%) (Auto) 0% (0-3) Basophils (%) (Auto) 0% (0-3) Neutrophils # (Auto) 8.7x10^3uL (1.8-7.7) Lymphocytes # (Auto) 1.2x10^3/uL (1.0-4.8) Monocytes # (Auto) 1.2x10^3/uL (0.0-1.1) Eosinophils # (Auto) 0.0x10^3/uL (0.0-0.7) Basophils # (Auto) 0.0x10^3/uL (0.0-0.2) Sodium Level 142mmol/L (136-145) Potassium Level 3.4mmol/L (3.5-5.1) Chloride Level 104mmol/L (98-107) Carbon Dioxide Level 29mmol/L (21-32) Anion Gap 9 (6-14) Blood Urea Nitrogen 21mg/dL (8-26) Creatinine 1.1mg/dL (0.7-1.3) Estimated GFR (Cockcroft-Gault) 66.0 Glucose Level 103mg/dL (70-99) Calcium Level 8.8mg/dL (8.5-10.1) Phosphorus Level 3.6mg/dL (2.6-4.7) Magnesium Level 1.8mg/dL (1.8-2.4) Albumin 1.8g/dL (3.4-5.0) Indication difficulty breathing. Pneumonia. A single view of the chest was obtained. Comparison is made to an exam 6 days earlier. There is now patchy infiltrate, compatible with atelectasis or pneumonia, in the left lower lobe. Minimal volume loss is seen at the right lung base and diagnostic considerations are the same. The heart and pulmonary vessels are unremarkable. There is no pneumothorax. IMPRESSION: Volume loss at the lung bases left greater than right compatible with atelectasis or pneumonia Objective Assessment Perforated colon -s/p lap with resection splenic flexure with end colostomy Evans's pouch, Peritonitis Sepsis with hypotension. Strep bovis, C. ramosum, bacteroides & H. parainfluenzae Acute encephalopathy Crohns disease on Remicade Recent pneumonia smoker A. fib Plan Plan of Care Zosyn f/u CT head Monitor labs supportive care PT/OT Patient seen and examined. Chart reviewed in detail. Case d/w RELATIONS LIAISON.Agree with above plan CT Head negative BRITTANY GAINES APRN Jan 31, 2017 12:03 CATHY PAZ MD Jan 31, 2017 15:28
[2017-01-31 12:23] LABS: BACTERIA,URINE FEW /HPF (0-FEW); RBC,URINE RARE /HPF (0-2); SQUAMOUS EPITHELIAL CELL,UR FEW /LPF; WBC,URINE OCC /HPF (0-4)
--- NOTE | 2017-01-31 12:36 | RAD ---
Indication change in mental status. Noncontrast images of the head were obtained. No prior imaging of the head is available. The calvarium appears unremarkable. The visualized paranasal sinuses appear normal. Ventricles and sulci are normal for the patient's age. There is no subdural or epidural hematoma. No mass or midline shift is seen. There is no hemorrhage. Acute intracranial finding is not seen. IMPRESSION: No acute finding seen in the head PQRS Compliance Statement: One or more of the following individualized dose reduction techniques were utilized for this examination: 1. Automated exposure control 2. Adjustment of the mA and/or kV according to patient size 3. Use of iterative reconstruction technique
--- NOTE | 2017-01-31 13:33 | PDOC ---
PROGRESS NOTES Chief Complaint Chief Complaint Bowel perf ASSESSMENT AND PLAN: 1. Colonic perforation: s/p emergent resection of splenic flexure with Paiz pouch on 01/26 2. Peritonitis, fecaloid material intra op 3. Crohn's: on remicade on O/p basis, i.e. immunosuppressed 4. VELVET: recovering. 5. Hyperkalemia: resolved 6. Aflutter: new. resolved (Transient) 6. Thrombocytopenia: resolved 7. Anemia, macrocytic: 8. Leukocytosis: reactive; 9. Agitation: personality vs EtOH W/D. 10. COugh 11. SMOker 12. METABOLIC ENCEPHALOPATHY new (01/30/17) History of Present Illness History of Present Illness COnfused last night and today CAlls last night re mentation, pulling lines wanting to leave ALso wants to leave hospital now I did order for CT head - neg Ordered for UA and CXR - coughing greenish and did verify my suspicion of atelectasis and no UTI Staff claims got more confused after haldol? PLAN: Neuro consulted Ativan prn 1:1 Dominik RN at bedside NPO for now BODY PIERCER COnt Procalamine at 80cc/hr MAy check ESR (WBC down to 11 - lowest its ever been) Vitals Vitals Vital Signs Date Time Temp Pulse Resp B/P Pulse Ox O2 Delivery O2 Flow Rate FiO2 01/31/17 12:12 16 Room Air 01/31/17 11:00 111 92/59 96 01/31/17 07:00 97.9 97.9 Physical Exam General: No acute distress, Other (not oriented ) Heart: Regular rate Lungs: Clear Abdomen: Soft, Other (incision c/d/i, no erythema, drains in place, serosang) Extremities: No edema, Normal pulses Skin: No significant lesion, Other Labs LABS Laboratory Tests Test 01/31/17 04:40 01/31/17 11:13 White Blood Count 11.1x10^3/uL (4.0-11.0) Red Blood Count 4.29x10^6/uL (4.30-5.70) Hemoglobin 14.7g/dL (13.0-17.5) Hematocrit 43.5% (39.0-53.0) Mean Corpuscular Volume 101fL (79-100) Mean Corpuscular Hemoglobin 34pg (25-35) Mean Corpuscular Hemoglobin Concent 34g/dL (31-37) Red Cell Distribution Width 14.7% (11.5-14.5) Platelet Count 121x10^3/uL (140-400) Neutrophils (%) (Auto) 79% (31-73) Lymphocytes (%) (Auto) 10% (24-48) Monocytes (%) (Auto) 11% (0-9) Eosinophils (%) (Auto) 0% (0-3) Basophils (%) (Auto) 0% (0-3) Neutrophils # (Auto) 8.7x10^3uL (1.8-7.7) Lymphocytes # (Auto) 1.2x10^3/uL (1.0-4.8) Monocytes # (Auto) 1.2x10^3/uL (0.0-1.1) Eosinophils # (Auto) 0.0x10^3/uL (0.0-0.7) Basophils # (Auto) 0.0x10^3/uL (0.0-0.2) Sodium Level 142mmol/L (136-145) Potassium Level 3.4mmol/L (3.5-5.1) Chloride Level 104mmol/L (98-107) Carbon Dioxide Level 29mmol/L (21-32) Anion Gap 9 (6-14) Blood Urea Nitrogen 21mg/dL (8-26) Creatinine 1.1mg/dL (0.7-1.3) Estimated GFR (Cockcroft-Gault) 66.0 Glucose Level 103mg/dL (70-99) Calcium Level 8.8mg/dL (8.5-10.1) Phosphorus Level 3.6mg/dL (2.6-4.7) Magnesium Level 1.8mg/dL (1.8-2.4) Albumin 1.8g/dL (3.4-5.0) Urine Collection Type Unknown Urine Color Yellow Urine Clarity Clear Urine pH 5.5 Urine Specific [place] 1.025 Urine Protein 30mg/dL (NEG-TRACE) Urine Glucose (UA) Negativemg/dL (NEG) Urine Ketones (Stick) Tracemg/dL (NEG) Urine Blood Negative (NEG) Urine Nitrite Negative (NEG) Urine Bilirubin Negative (NEG) Urine Urobilinogen Dipstick 0.2mg/dL (0.2 mg/dL) Urine Leukocyte Esterase Negative (NEG) Urine RBC Rare/HPF (0-2) Urine WBC Occ/HPF (0-4) Urine Squamous Epithelial Cells Few/LPF Urine Bacteria Few/HPF (0-FEW) Review of Systems Review of Systems confused Assessment and Plan Assessmemt and Plan Problems Medical Problems: (1) Perforated abdominal viscus Status: Acute Problems: Comment Review of Relevant I have reviewed the following items manuel (where applicable) has been applied. Labs Laboratory Tests Test 01/30/17 03:48 01/31/17 04:40 01/31/17 11:13 White Blood Count 13.0x10^3/uL (4.0-11.0) 11.1x10^3/uL (4.0-11.0) Red Blood Count 4.12x10^6/uL (4.30-5.70) 4.29x10^6/uL (4.30-5.70) Hemoglobin 14.1g/dL (13.0-17.5) 14.7g/dL (13.0-17.5) Hematocrit 42.4% (39.0-53.0) 43.5% (39.0-53.0) Mean Corpuscular Volume 103fL (79-100) 101fL (79-100) Mean Corpuscular Hemoglobin 34pg (25-35) 34pg (25-35) Mean Corpuscular Hemoglobin Concent 33g/dL (31-37) 34g/dL (31-37) Red Cell Distribution Width 14.5% (11.5-14.5) 14.7% (11.5-14.5) Platelet Count 103x10^3/uL (140-400) 121x10^3/uL (140-400) Neutrophils (%) (Auto) 83% (31-73) 79% (31-73) Lymphocytes (%) (Auto) 10% (24-48) 10% (24-48) Monocytes (%) (Auto) 7% (0-9) 11% (0-9) Eosinophils (%) (Auto) 0% (0-3) 0% (0-3) Basophils (%) (Auto) 0% (0-3) 0% (0-3) Neutrophils # (Auto) 10.8x10^3uL (1.8-7.7) 8.7x10^3uL (1.8-7.7) Lymphocytes # (Auto) 1.3x10^3/uL (1.0-4.8) 1.2x10^3/uL (1.0-4.8) Monocytes # (Auto) 0.9x10^3/uL (0.0-1.1) 1.2x10^3/uL (0.0-1.1) Eosinophils # (Auto) 0.0x10^3/uL (0.0-0.7) 0.0x10^3/uL (0.0-0.7) Basophils # (Auto) 0.0x10^3/uL (0.0-0.2) 0.0x10^3/uL (0.0-0.2) Sodium Level 141mmol/L (136-145) 142mmol/L (136-145) Potassium Level 3.7mmol/L (3.5-5.1) 3.4mmol/L (3.5-5.1) Chloride Level 104mmol/L (98-107) 104mmol/L (98-107) Carbon Dioxide Level 28mmol/L (21-32) 29mmol/L (21-32) Anion Gap 9 (6-14) 9 (6-14) Blood Urea Nitrogen 14mg/dL (8-26) 21mg/dL (8-26) Creatinine 1.0mg/dL (0.7-1.3) 1.1mg/dL (0.7-1.3) Estimated GFR (Cockcroft-Gault) 73.7 66.0 Glucose Level 109mg/dL (70-99) 103mg/dL (70-99) Calcium Level 8.8mg/dL (8.5-10.1) 8.8mg/dL (8.5-10.1) Phosphorus Level 2.6mg/dL (2.6-4.7) 3.6mg/dL (2.6-4.7) Magnesium Level 1.8mg/dL (1.8-2.4) 1.8mg/dL (1.8-2.4) Albumin 1.6g/dL (3.4-5.0) 1.8g/dL (3.4-5.0) Urine Collection Type Unknown Urine Color Yellow Urine Clarity Clear Urine pH 5.5 Urine Specific [place] 1.025 Urine Protein 30mg/dL (NEG-TRACE) Urine Glucose (UA) Negativemg/dL (NEG) Urine Ketones (Stick) Tracemg/dL (NEG) Urine Blood Negative (NEG) Urine Nitrite Negative (NEG) Urine Bilirubin Negative (NEG) Urine Urobilinogen Dipstick 0.2mg/dL (0.2 mg/dL) Urine Leukocyte Esterase Negative (NEG) Urine RBC Rare/HPF (0-2) Urine WBC Occ/HPF (0-4) Urine Squamous Epithelial Cells Few/LPF Urine Bacteria Few/HPF (0-FEW) Laboratory Tests Test 01/31/17 04:40 01/31/17 11:13 White Blood Count 11.1x10^3/uL (4.0-11.0) Red Blood Count 4.29x10^6/uL (4.30-5.70) Hemoglobin 14.7g/dL (13.0-17.5) Hematocrit 43.5% (39.0-53.0) Mean Corpuscular Volume 101fL (79-100) Mean Corpuscular Hemoglobin 34pg (25-35) Mean Corpuscular Hemoglobin Concent 34g/dL (31-37) Red Cell Distribution Width 14.7% (11.5-14.5) Platelet Count 121x10^3/uL (140-400) Neutrophils (%) (Auto) 79% (31-73) Lymphocytes (%) (Auto) 10% (24-48) Monocytes (%) (Auto) 11% (0-9) Eosinophils (%) (Auto) 0% (0-3) Basophils (%) (Auto) 0% (0-3) Neutrophils # (Auto) 8.7x10^3uL (1.8-7.7) Lymphocytes # (Auto) 1.2x10^3/uL (1.0-4.8) Monocytes # (Auto) 1.2x10^3/uL (0.0-1.1) Eosinophils # (Auto) 0.0x10^3/uL (0.0-0.7) Basophils # (Auto) 0.0x10^3/uL (0.0-0.2) Sodium Level 142mmol/L (136-145) Potassium Level 3.4mmol/L (3.5-5.1) Chloride Level 104mmol/L (98-107) Carbon Dioxide Level 29mmol/L (21-32) Anion Gap 9 (6-14) Blood Urea Nitrogen 21mg/dL (8-26) Creatinine 1.1mg/dL (0.7-1.3) Estimated GFR (Cockcroft-Gault) 66.0 Glucose Level 103mg/dL (70-99) Calcium Level 8.8mg/dL (8.5-10.1) Phosphorus Level 3.6mg/dL (2.6-4.7) Magnesium Level 1.8mg/dL (1.8-2.4) Albumin 1.8g/dL (3.4-5.0) Urine Collection Type Unknown Urine Color Yellow Urine Clarity Clear Urine pH 5.5 Urine Specific [place] 1.025 Urine Protein 30mg/dL (NEG-TRACE) Urine Glucose (UA) Negativemg/dL (NEG) Urine Ketones (Stick) Tracemg/dL (NEG) Urine Blood Negative (NEG) Urine Nitrite Negative (NEG) Urine Bilirubin Negative (NEG) Urine Urobilinogen Dipstick 0.2mg/dL (0.2 mg/dL) Urine Leukocyte Esterase Negative (NEG) Urine RBC Rare/HPF (0-2) Urine WBC Occ/HPF (0-4) Urine Squamous Epithelial Cells Few/LPF Urine Bacteria Few/HPF (0-FEW) Microbiology 01/26/17 Gram Stain - Final, Complete Medications Current Medications Sodium Chloride (Iv Sodium Chloride 0.9% 1000ml Bag) 1,000 ml @ 100 mls/hr Q10H IV Last administered on 01/25/17 22:11; Start 01/25/17 at 22:30; Stop at 08:29; Status DC Ondansetron HCl (Zofran) 4 mg 1X ONCE IV Last administered on 01/25/17 22:12 ; Start 01/25/17 at 22:30; Stop 01/25/17 at 22:31; Status DC Fentanyl Citrate (Fentanyl 2ml Vial) 75 mcg PRN Q15MIN PRN IV PAIN GREATER THAN 3/10 Last administered on 01/26/17 00:50; Start 01/25/17 at 22:00; Stop at 21:59; Status DC Fentanyl Citrate (Fentanyl 2ml Vial) 100 mcg 1X ONCE IV Last administered on 22:12; Start 01/25/17 at 22:30; Stop 01/25/17 at 22:31; Status DC Iohexol (Omnipaque 300 Mg/ml) 75 ml 1X ONCE IV Last administered on 01/25/17 23:55; Start 01/26/17 at 00:00; Stop 01/26/17 at 00:01; Status DC Info 1 each 1 each PRN DAILY PRN MC SEE COMMENTS; Start 01/25/17 at 23:45; Stop 01/27/17 at 23:44; Status DC Piperacillin Sod/ Tazobactam Sod 3.375 gm/Sodium Chloride 50 ml @ 100 mls/hr 1X ONCE IV Last administered on 01/26/17 00:56; Start 01/26/17 at 01:00; Stop 01/26/17 at 01:29; Status DC Sodium Chloride (Iv Sodium Chloride 0.9% 1000ml Bag) 1,000 ml @ 100 mls/hr 1X ONCE IV Last administered on 01/26/17 00:53; Start 01/26/17 at 01:00; Stop at 10:59; Status DC Hydromorphone HCl (Dilaudid) 1 mg 1X ONCE IV Last administered on 01/26/17 01 :33; Start 01/26/17 at 01:30; Stop 01/26/17 at 01:34; Status DC Hydromorphone HCl 1 mg 1 mg 1X ONCE IV ; Start 01/26/17 at 02:00; Stop at 02:01; Status DC Piperacillin Sod/ Tazobactam Sod/ Sodium Chloride (Zosyn/Iv Sodium Chloride 0.9 % 50ml) 50 ml @ 100 mls/hr 1X ONCE IV Last administered on 01/26/17 02:43; Start 01/26/17 at 02:00; Stop 01/26/17 at 02:29; Status DC Dexamethasone Sodium Phosphate (Decadron) 20 mg STK-MED ONCE .ROUTE ; Start at 02:00; Stop 01/26/17 at 02:01; Status DC Ondansetron HCl 4 mg 4 mg STK-MED ONCE .ROUTE ; Start 01/26/17 at 02:00; Stop at 02:01; Status DC Propofol (Diprivan) 20 ml @ As Directed STK-MED ONCE IV ; Start 01/26/17 at 02: 00; Stop 01/26/17 at 02:01; Status DC Lidocaine HCl 100 mg STK-MED ONCE .ROUTE ; Start 01/26/17 at 02:00; Stop at 02:01; Status DC Fentanyl Citrate (Fentanyl 2ml Vial) 100 mcg STK-MED ONCE .ROUTE ; Start at 02:00; Stop 01/26/17 at 02:01; Status DC Succinylcholine Chloride (Anectine) 200 mg STK-MED ONCE .ROUTE ; Start 01/26/17 at 02:00; Stop 01/26/17 at 02:01; Status DC Rocuronium [place] (Zemuron) 50 mg STK-MED ONCE .ROUTE ; Start 01/26/17 at 02:00 ; Stop 01/26/17 at 02:01; Status DC Ondansetron HCl (Zofran) 4 mg PRN Q6HRS PRN IV Nausea; Start 01/26/17 at 02:15 ; Stop 01/27/17 at 02:14; Status DC Fentanyl Citrate (Fentanyl 2ml Vial) 25 mcg PRN Q5MIN PRN IV MILD PAIN; Start 01/26/17 at 02:15; Stop 01/27/17 at 02:14; Status DC Fentanyl Citrate (Fentanyl 2ml Vial) 50 mcg PRN Q5MIN PRN IV MODERATE PAIN; Start 01/26/17 at 02:15; Stop 01/27/17 at 02:14; Status DC Morphine Sulfate 1 mg 1 mg PRN Q10MIN PRN IV SEVERE PAIN; Start 01/26/17 at 02: 15; Stop 01/27/17 at 02:14; Status DC Lactated Ringer's (Iv Lactated Ringers) 1,000 ml @ 30 mls/hr Q24H IV ; Start at 02:09; Stop 01/26/17 at 14:08; Status DC Lidocaine HCl 2 ml 1X PRN PRN ID IV START; Start 01/26/17 at 02:15; Stop at 02:14; Status DC Hydromorphone HCl (Dilaudid) 0.5 mg PRN Q10MIN PRN IV SEV PAIN,Second choice Last administered on 01/26/17 06:29; Start 01/26/17 at 02:15; Stop 01/27/17 at 02:14; Status DC Prochlorperazine Edisylate 5 mg 5 mg PACU PRN PRN IV NAUSEA; Start 01/26/17 at 02:15; Stop 01/27/17 at 02:14; Status DC Bacitracin/Sodium Chloride (Iv Sodium Chloride 0.9% 500ml Bag) 500 ml @ 500 mls /hr 1X PERIOP ONCE IRR ; Start 01/26/17 at 03:00; Stop 01/26/17 at 03:59; Status DC Hydrocortisone Sodium Succinate (Solu-Cortef) 100 mg STK-MED ONCE .ROUTE ; Start 01/26/17 at 02:24; Stop 01/26/17 at 02:25; Status DC Sevoflurane (Ultane) 90 ml STK-MED ONCE IH ; Start 01/26/17 at 03:16; Stop 01/26 at 03:17; Status DC Phenylephrine HCl 1 mg STK-MED ONCE IV ; Start 01/26/17 at 03:17; Stop 01/26/17 at 03:18; Status DC Phenylephrine HCl (Bhargav-Synephrine Inj) 10 mg STK-MED ONCE .ROUTE ; Start at 03:32; Stop 01/26/17 at 03:33; Status DC Rocuronium [place] (Zemuron) 50 mg STK-MED ONCE .ROUTE ; Start 01/26/17 at 03:36 ; Stop 01/26/17 at 03:37; Status DC Cellulose 1 each STK-MED ONCE .ROUTE Last administered on 01/26/17 02:47; Start 01/26/17 at 03:38; Stop 01/26/17 at 03:39; Status DC Glycopyrrolate (Robinul) 1 mg STK-MED ONCE .ROUTE ; Start 01/26/17 at 04:23; Stop 01/26/17 at 04:24; Status DC Neostigmine Methylsulfate 5 mg STK-MED ONCE .ROUTE ; Start 01/26/17 at 04:23; Stop 01/26/17 at 04:24; Status DC Sevoflurane (Ultane) 90 ml STK-MED ONCE IH ; Start 01/26/17 at 04:23; Stop 01/26 at 04:24; Status DC Esmolol HCl (Brevibloc) 100 mg STK-MED ONCE IV ; Start 01/26/17 at 04:28; Stop 01/26/17 at 04:29; Status DC Fentanyl Citrate 100 mcg 100 mcg STK-MED ONCE .ROUTE ; Start 01/26/17 at 05:09; Stop 01/26/17 at 05:10; Status DC Metronidazole (FLAGYL 500Mmg PREMIX) 100 ml @ 100 mls/hr Q12HR IV ; Start 01/26 at 09:00; Stop 01/26/17 at 09:00; Status DC Diphenhydramine HCl (Benadryl) 25 mg PRN Q6HRS PRN IV ITCHING Last administered on 01/31/17 11:44; Start 01/26/17 at 05:45 Famotidine (Pepcid) 20 mg BID IVP Last administered on 01/26/17 21:22; Start 01/26/17 at 09:00; Stop 01/27/17 at 08:10; Status DC Enoxaparin Sodium (Lovenox 40mg Syringe) 40 mg Q24H SQ Last administered on 08:48; Start 01/26/17 at 09:00; Stop 01/27/17 at 15:59; Status DC Sodium Chloride 3 ml 3 ml QSHIFT PRN IV AFTER MEDS AND BLOOD DRAWS; Start 01/26 at 05:45 Potassium Chloride/Sodium Chloride 1,000 ml @ 100 mls/hr Q10H IV Last administered on 01/26/17 21:24; Start 01/26/17 at 06:00; Stop 01/27/17 at 13:26 ; Status DC Hydromorphone HCl (Dilaudid Standard REEL WINDER) 30 ml @ 0 mls/hr CONT PRN PRN IV PROTOCOL Last administered on 01/28/17 01:36; Start 01/26/17 at 05:45; Stop at 08:37; Status DC Hydromorphone HCl (Dilaudid) 1 mg PRN Q1HR PRN IV MODERATE PAIN Last administered on 01/31/17 11:42; Start 01/26/17 at 05:45 Ondansetron HCl (Zofran) 4 mg PRN Q6HRS PRN IV NAUESA, 1ST CHOICE Last administered on 01/30/17 14:08; Start 01/26/17 at 05:45 Throat Lozenges (Chloraseptic) 1 spray PRN Q2HR PRN PO SORE THROAT; Start 01/26 at 05:45 Throat Lozenges (Cepacol Sore Throat Lozenge) 1 west PRN Q2HRS PRN PO SORE THROAT; Start 01/26/17 at 05:45 Nicotine 1 patch 1 patch DAILY TD Last administered on 01/31/17 09:48; Start 01/26/17 at 09:00 Piperacillin Sod/ Tazobactam Sod/ Sodium Chloride (Zosyn/Iv Sodium Chloride 0.9 % 50ml) 50 ml @ 100 mls/hr Q6HRS IV Last administered on 01/31/17 12:33; Start 01/26/17 at 08:00 Vancomycin HCl 1 each 1 each PRN DAILY PRN MC SEE COMMENTS Last administered on 01/29/17 08:16; Start 01/26/17 at 07:45; Stop 01/30/17 at 09:19; Status DC Vancomycin HCl 2 gm/Sodium Chloride 500 ml @ 250 mls/hr 1X ONCE IV Last administered on 01/26/17 09:02; Start 01/26/17 at 08:00; Stop 01/26/17 at 09:59 ; Status DC Vancomycin HCl/ Sodium Chloride (Iv Sodium Chloride 0.9% 250ml) 250 ml @ 167 mls/hr Q12H IV Last administered on 01/26/17 21:22; Start 01/26/17 at 21:00; Stop 01/27/17 at 09:36; Status DC Vancomycin HCl 1 each 1X ONCE MC Last administered on 01/27/17 08:30; Start 01/27/17 at 08:30; Stop 01/27/17 at 08:31; Status DC Famotidine 20 mg 20 mg QHS IVP Last administered on 01/30/17 21:50; Start at 21:00 Vancomycin HCl/ Sodium Chloride (Iv Sodium Chloride 0.9% 250ml) 250 ml @ 167 mls/hr Q24H IV Last administered on 01/28/17 21:49; Start 01/27/17 at 22:00; Stop 01/28/17 at 23:00; Status DC Vancomycin HCl 1 each 1 each 1X ONCE MC Last administered on 01/28/17 21:30; Start 01/28/17 at 21:30; Stop 01/28/17 at 21:31; Status DC Diltiazem HCl 125 mg/Dextrose 125 ml @ 0 mls/hr CONT PRN IV SEE I/O RECORD Last administered on 01/27/17 23:12; Start 01/27/17 at 11:45; Stop 01/29/17 at 08:37; Status DC Sodium Chloride (Iv Sodium Chloride 0.45%) 1,000 ml @ 100 mls/hr 1X ONCE IV Last administered on 01/27/17 13:30; Start 01/27/17 at 13:30; Stop 01/27/17 at 23:29; Status DC Enoxaparin Sodium (Lovenox Per Pharmacy Treatment Dosing) 1 each PRN DAILY PRN MC SEE COMMENTS; Start 01/27/17 at 16:00; Stop 01/28/17 at 12:15; Status DC Enoxaparin Sodium 75 mg 75 mg Q12HR SQ Last administered on 01/28/17 09:07; Start 01/27/17 at 18:00; Stop 01/28/17 at 12:15; Status DC Magnesium Sulfate/ Dextrose 50 ml @ 25 mls/hr PRN DAILY PRN IV for Mag < 1.7 on am labs; Start 01/27/17 at 17:45; Stop 01/30/17 at 10:08; Status DC Sodium Chloride (Iv Sodium Chloride 0.9% 500ml Bag) 500 ml @ 0 mls/hr QID PRN IV For MAP < 65; Start 01/27/17 at 17:45; Stop 01/30/17 at 10:08; Status DC Info (Anti-Coagulation Monitoring By Pharmacy) 1 each PRN DAILY PRN MC SEE COMMENTS Last administered on 01/28/17 07:45; Start 01/28/17 at 07:45; Stop at 14:34; Status DC Enoxaparin Sodium 40 mg 40 mg Q24H SQ Last administered on 01/31/17 09:52; Start 01/29/17 at 09:00 Vancomycin HCl/ Sodium Chloride (Iv Sodium Chloride 0.9% 250ml) 250 ml @ 167 mls/hr Q12H IV Last administered on 01/29/17 21:45; Start 01/29/17 at 10:00; Stop 01/30/17 at 09:19; Status DC Vancomycin HCl 1 each 1X ONCE MC ; Start 01/30/17 at 09:30; Stop 01/30/17 at 09 :31; Status Cancel Oxycodone/ Acetaminophen (Percocet 10/325) 1 tab PRN Q4HRS PRN PO pain Last administered on 01/31/17 09:47; Start 01/29/17 at 08:45 Oxycodone/ Acetaminophen 1 tab 1 tab PRN Q4HRS PRN PO PAIN Last administered on 01/31/17 05:49; Start 01/29/17 at 08:45 Sodium Chloride (Iv Sodium Chloride 0.9% 1000ml Bag) 1,000 ml @ 75 mls/hr 1X ONCE IV Last administered on 01/30/17 09:25; Start 01/30/17 at 09:00; Stop at 22:19; Status DC Digoxin 250 mcg 250 mcg 1X ONCE IV Last administered on 01/30/17 09:25; Start 01/30/17 at 09:00; Stop 01/30/17 at 09:01; Status DC Amino Acids/ Electrolytes (Clinimix E 2.75%-5% Solution) 2,000 ml @ 80 mls/hr Q24H IV Last administered on 01/30/17 16:49; Start 01/30/17 at 15:00 Haloperidol Lactate (Haldol) 5 mg PRN Q4HRS PRN IVP AGITATION Last administered on 01/31/17 05:12; Start 01/31/17 at 05:00 Digoxin 125 mcg 125 mcg DAILY IV Last administered on 01/31/17 09:57; Start at 10:00 Potassium Chloride 50 ml @ 50 mls/hr 1X ONCE IV ; Start 01/31/17 at 09:30; Stop 01/31/17 at 10:29; Status UNV Potassium Chloride (KCl Premix 10meq) 100 ml @ 100 mls/hr Q1H IV Last administered on 01/31/17t 12:33; Start 01/31/17 at 09:45; Stop 01/31/17 at 11:44 ; Status DC Active Scripts Active Reported Remicade (Infliximab) 100 Mg Vial 100 Mg IV Q8HRS Vitals/I & O Vital Sign - Last 24 Hours 01/30/17 01/30/17 01/30/17 01/30/17 15:00 19:43 20:00 23:14 Temp 97.4 98.0 97.8 97.4 98.0 97.8 Pulse 101 105 98 Resp 18 B/P 99/67 103/71 115/75 Pulse Ox 92 90 91 O2 Delivery Room Air Room Air Room Air Room Air 01/31/17 01/31/17 01/31/17 01/31/17 03:02 07:00 09:47 09:57 Temp 98.2 97.9 98.2 97.9 Pulse 109 114 114 Resp 18 B/P 104/68 93/64 Pulse Ox 92 93 O2 Delivery Room Air Room Air Room Air 01/31/17 01/31/17 01/31/17 01/31/17 10:47 11:00 11:42 12:12 Pulse 111 Resp 18 18 16 B/P 92/59 Pulse Ox 96 O2 Delivery Room Air Room Air Room Air Room Air Intake and Output 01/30/17 01/30/17 01/31/17 15:00 23:00 07:00 Intake Total 559 ml 150 ml Output Total 650 ml 315 ml 100 ml Balance -650 ml 244 ml 50 ml SILAS [place] MD Jan 31, 2017 13:33
[2017-01-31] MEDS ORDERED: CHLORDIAZEPOXIDE HCL 25 MG CAPSULE PO PRN (13:45)
[2017-01-31] MEDS: LORAZEPAM 2 MG/ML VIAL IV PRN ×3 (14:27→22:58)
[2017-01-31] MEDS: AA 2.75%/CALCIUM/LYTES/D5W 2,000 ML IV SCH (15:00)
[2017-01-31] MEDS: MULTIVIT INFUSN,ADULT 4,VIT K 10 ML, FOLIC ACID 1 MG, THIAMINE 100 MG in IV DEXTROSE 5 ... IV SCH (16:12)
[2017-01-31] MEDS ORDERED: AA 2.75%/CALCIUM/LYTES/D5W 1,000 ML IV SCH (17:22)
[2017-01-31 19:16] VITALS: BP 106/67
--- NOTE | 2017-01-31 19:22 | PDOC2 ---
CONSULT Date of Consult Date of Consult DATE: 01/31/17 TIME: 19:17 Reason for Consult Reason for Consult: altered mental status. History of Present Illness Reason for Visit: This patient is 71-year-old man with past medical history of Crohn's disease who is on Remicade for last 2 years presented to the hospital with complaint of abdominal pain, vomiting. Patient was found to have perforated small bowel. And was taken to the OR and was found to have perforation patient underwent laparoscopy. Patient had hypotension previously. Patient is being addressed for multiple medical problems, patient is also being followed by infectious disease being currently treated for peritonitis, on antibiotics. Patient had a CT scan of the brain which did not show any acute intracranial process. Metabolic encephalopathy Will check MRI brain to rule out any acute process Continue antibiotics per infectious disease History of Crohn's disease on Remicade Past Medical History Cardiovascular: AFIB, Hyperlipidemia Pulmonary: No pertinent hx CENTRAL NERVOUS SYSTEM: Other (no pertinent hx ) GI: Other (Crohn's Dx) Heme/Onc: No pertinent hx Hepatobiliary: No pertinent hx Psych: No pertinent hx Musculoskeletal: Osteoarthritis Rheumatologic: No pertinent hx Infectious disease: No pertinent hx ENT: No pertinent hx Renal/: Other (kidney stones ) Endocrine: No pertinent hx Dermatology: No pertinent hx Past Surgical History Past Surgical History: Other (stone removal) Family History Family History: Cancer Social History 1 pack per day (1.5 ppd) ALCOHOL: occassional Drugs: Other (h/o cocaine use 25yrs ago) Lives: with Family Current Problem List Problem List Problems Medical Problems: (1) Perforated abdominal viscus Status: Acute Current Medications Current Medications Current Medications Sodium Chloride (Iv Sodium Chloride 0.9% 1000ml Bag) 1,000 ml @ 100 mls/hr Q10H IV Last administered on 01/25/17 22:11; Start 01/25/17 at 22:30; Stop at 08:29; Status DC Ondansetron HCl (Zofran) 4 mg 1X ONCE IV Last administered on 01/25/17 22:12 ; Start 01/25/17 at 22:30; Stop 01/25/17 at 22:31; Status DC Fentanyl Citrate (Fentanyl 2ml Vial) 75 mcg PRN Q15MIN PRN IV PAIN GREATER THAN 3/10 Last administered on 01/26/17 00:50; Start 01/25/17 at 22:00; Stop at 21:59; Status DC Fentanyl Citrate (Fentanyl 2ml Vial) 100 mcg 1X ONCE IV Last administered on 22:12; Start 01/25/17 at 22:30; Stop 01/25/17 at 22:31; Status DC Iohexol (Omnipaque 300 Mg/ml) 75 ml 1X ONCE IV Last administered on 01/25/17 23:55; Start 01/26/17 at 00:00; Stop 01/26/17 at 00:01; Status DC Info 1 each 1 each PRN DAILY PRN MC SEE COMMENTS; Start 01/25/17 at 23:45; Stop 01/27/17 at 23:44; Status DC Piperacillin Sod/ Tazobactam Sod 3.375 gm/Sodium Chloride 50 ml @ 100 mls/hr 1X ONCE IV Last administered on 01/26/17 00:56; Start 01/26/17 at 01:00; Stop 01/26/17 at 01:29; Status DC Sodium Chloride (Iv Sodium Chloride 0.9% 1000ml Bag) 1,000 ml @ 100 mls/hr 1X ONCE IV Last administered on 01/26/17 00:53; Start 01/26/17 at 01:00; Stop at 10:59; Status DC Hydromorphone HCl (Dilaudid) 1 mg 1X ONCE IV Last administered on 01/26/17 01 :33; Start 01/26/17 at 01:30; Stop 01/26/17 at 01:34; Status DC Hydromorphone HCl 1 mg 1 mg 1X ONCE IV ; Start 01/26/17 at 02:00; Stop at 02:01; Status DC Piperacillin Sod/ Tazobactam Sod/ Sodium Chloride (Zosyn/Iv Sodium Chloride 0.9 % 50ml) 50 ml @ 100 mls/hr 1X ONCE IV Last administered on 01/26/17 02:43; Start 01/26/17 at 02:00; Stop 01/26/17 at 02:29; Status DC Dexamethasone Sodium Phosphate (Decadron) 20 mg STK-MED ONCE .ROUTE ; Start at 02:00; Stop 01/26/17 at 02:01; Status DC Ondansetron HCl 4 mg 4 mg STK-MED ONCE .ROUTE ; Start 01/26/17 at 02:00; Stop at 02:01; Status DC Propofol (Diprivan) 20 ml @ As Directed STK-MED ONCE IV ; Start 01/26/17 at 02: 00; Stop 01/26/17 at 02:01; Status DC Lidocaine HCl 100 mg STK-MED ONCE .ROUTE ; Start 01/26/17 at 02:00; Stop at 02:01; Status DC Fentanyl Citrate (Fentanyl 2ml Vial) 100 mcg STK-MED ONCE .ROUTE ; Start at 02:00; Stop 01/26/17 at 02:01; Status DC Succinylcholine Chloride (Anectine) 200 mg STK-MED ONCE .ROUTE ; Start 01/26/17 at 02:00; Stop 01/26/17 at 02:01; Status DC Rocuronium [place] (Zemuron) 50 mg STK-MED ONCE .ROUTE ; Start 01/26/17 at 02:00 ; Stop 01/26/17 at 02:01; Status DC Ondansetron HCl (Zofran) 4 mg PRN Q6HRS PRN IV Nausea; Start 01/26/17 at 02:15 ; Stop 01/27/17 at 02:14; Status DC Fentanyl Citrate (Fentanyl 2ml Vial) 25 mcg PRN Q5MIN PRN IV MILD PAIN; Start 01/26/17 at 02:15; Stop 01/27/17 at 02:14; Status DC Fentanyl Citrate (Fentanyl 2ml Vial) 50 mcg PRN Q5MIN PRN IV MODERATE PAIN; Start 01/26/17 at 02:15; Stop 01/27/17 at 02:14; Status DC Morphine Sulfate 1 mg 1 mg PRN Q10MIN PRN IV SEVERE PAIN; Start 01/26/17 at 02: 15; Stop 01/27/17 at 02:14; Status DC Lactated Ringer's (Iv Lactated Ringers) 1,000 ml @ 30 mls/hr Q24H IV ; Start at 02:09; Stop 01/26/17 at 14:08; Status DC Lidocaine HCl 2 ml 1X PRN PRN ID IV START; Start 01/26/17 at 02:15; Stop at 02:14; Status DC Hydromorphone HCl (Dilaudid) 0.5 mg PRN Q10MIN PRN IV SEV PAIN,Second choice Last administered on 01/26/17t 06:29; Start 01/26/17 at 02:15; Stop 01/27/17 at 02:14; Status DC Prochlorperazine Edisylate 5 mg 5 mg PACU PRN PRN IV NAUSEA; Start 01/26/17 at 02:15; Stop 01/27/17 at 02:14; Status DC Bacitracin/Sodium Chloride (Iv Sodium Chloride 0.9% 500ml Bag) 500 ml @ 500 mls /hr 1X PERIOP ONCE IRR ; Start 01/26/17 at 03:00; Stop 01/26/17 at 03:59; Status DC Hydrocortisone Sodium Succinate (Solu-Cortef) 100 mg STK-MED ONCE .ROUTE ; Start 01/26/17 at 02:24; Stop 01/26/17 at 02:25; Status DC Sevoflurane (Ultane) 90 ml STK-MED ONCE IH ; Start 01/26/17 at 03:16; Stop 01/26 at 03:17; Status DC Phenylephrine HCl 1 mg STK-MED ONCE IV ; Start 01/26/17 at 03:17; Stop 01/26/17 at 03:18; Status DC Phenylephrine HCl (Bhargav-Synephrine Inj) 10 mg STK-MED ONCE .ROUTE ; Start at 03:32; Stop 01/26/17 at 03:33; Status DC Rocuronium [place] (Zemuron) 50 mg STK-MED ONCE .ROUTE ; Start 01/26/17 at 03:36 ; Stop 01/26/17 at 03:37; Status DC Cellulose 1 each STK-MED ONCE .ROUTE Last administered on 01/26/17t 02:47; Start 01/26/17 at 03:38; Stop 01/26/17 at 03:39; Status DC Glycopyrrolate (Robinul) 1 mg STK-MED ONCE .ROUTE ; Start 01/26/17 at 04:23; Stop 01/26/17 at 04:24; Status DC Neostigmine Methylsulfate 5 mg STK-MED ONCE .ROUTE ; Start 01/26/17 at 04:23; Stop 01/26/17 at 04:24; Status DC Sevoflurane (Ultane) 90 ml STK-MED ONCE IH ; Start 01/26/17 at 04:23; Stop 01/26 at 04:24; Status DC Esmolol HCl (Brevibloc) 100 mg STK-MED ONCE IV ; Start 01/26/17 at 04:28; Stop 01/26/17 at 04:29; Status DC Fentanyl Citrate 100 mcg 100 mcg STK-MED ONCE .ROUTE ; Start 01/26/17 at 05:09; Stop 01/26/17 at 05:10; Status DC Metronidazole (FLAGYL 500Mmg PREMIX) 100 ml @ 100 mls/hr Q12HR IV ; Start 01/26 at 09:00; Stop 01/26/17 at 09:00; Status DC Diphenhydramine HCl (Benadryl) 25 mg PRN Q6HRS PRN IV ITCHING Last administered on 01/31/17 11:44; Start 01/26/17 at 05:45 Famotidine (Pepcid) 20 mg BID IVP Last administered on 01/26/17 21:22; Start 01/26/17 at 09:00; Stop 01/27/17 at 08:10; Status DC Enoxaparin Sodium (Lovenox 40mg Syringe) 40 mg Q24H SQ Last administered on 08:48; Start 01/26/17 at 09:00; Stop 01/27/17 at 15:59; Status DC Sodium Chloride 3 ml 3 ml QSHIFT PRN IV AFTER MEDS AND BLOOD DRAWS; Start 01/26 at 05:45 Potassium Chloride/Sodium Chloride 1,000 ml @ 100 mls/hr Q10H IV Last administered on 01/26/17 21:24; Start 01/26/17 at 06:00; Stop 01/27/17 at 13:26 ; Status DC Hydromorphone HCl (Dilaudid Standard DIRECTOR OF USER EXPERIENCE) 30 ml @ 0 mls/hr CONT PRN PRN IV PROTOCOL Last administered on 01/28/17 01:36; Start 01/26/17 at 05:45; Stop at 08:37; Status DC Hydromorphone HCl (Dilaudid) 1 mg PRN Q1HR PRN IV MODERATE PAIN Last administered on 01/31/17 11:42; Start 01/26/17 at 05:45 Ondansetron HCl (Zofran) 4 mg PRN Q6HRS PRN IV NAUESA, 1ST CHOICE Last administered on 01/30/17 14:08; Start 01/26/17 at 05:45 Throat Lozenges (Chloraseptic) 1 spray PRN Q2HR PRN PO SORE THROAT; Start 01/26 at 05:45 Throat Lozenges (Cepacol Sore Throat Lozenge) 1 west PRN Q2HRS PRN PO SORE THROAT; Start 01/26/17 at 05:45 Nicotine 1 patch 1 patch DAILY TD Last administered on 01/31/17 09:48; Start 01/26/17 at 09:00 Piperacillin Sod/ Tazobactam Sod/ Sodium Chloride (Zosyn/Iv Sodium Chloride 0.9 % 50ml) 50 ml @ 100 mls/hr Q6HRS IV Last administered on 01/31/17 18:39; Start 01/26/17 at 08:00 Vancomycin HCl 1 each 1 each PRN DAILY PRN MC SEE COMMENTS Last administered on 01/29/17 08:16; Start 01/26/17 at 07:45; Stop 01/30/17 at 09:19; Status DC Vancomycin HCl 2 gm/Sodium Chloride 500 ml @ 250 mls/hr 1X ONCE IV Last administered on 01/26/17 09:02; Start 01/26/17 at 08:00; Stop 01/26/17 at 09:59 ; Status DC Vancomycin HCl/ Sodium Chloride (Iv Sodium Chloride 0.9% 250ml) 250 ml @ 167 mls/hr Q12H IV Last administered on 01/26/17 21:22; Start 01/26/17 at 21:00; Stop 01/27/17 at 09:36; Status DC Vancomycin HCl 1 each 1X ONCE MC Last administered on 01/27/17 08:30; Start 01/27/17 at 08:30; Stop 01/27/17 at 08:31; Status DC Famotidine 20 mg 20 mg QHS IVP Last administered on 01/30/17 21:50; Start at 21:00 Vancomycin HCl/ Sodium Chloride (Iv Sodium Chloride 0.9% 250ml) 250 ml @ 167 mls/hr Q24H IV Last administered on 01/28/17 21:49; Start 01/27/17 at 22:00; Stop 01/28/17 at 23:00; Status DC Vancomycin HCl 1 each 1 each 1X ONCE MC Last administered on 01/28/17 21:30; Start 01/28/17 at 21:30; Stop 01/28/17 at 21:31; Status DC Diltiazem HCl 125 mg/Dextrose 125 ml @ 0 mls/hr CONT PRN IV SEE I/O RECORD Last administered on 01/27/17 23:12; Start 01/27/17 at 11:45; Stop 01/29/17 at 08:37; Status DC Sodium Chloride (Iv Sodium Chloride 0.45%) 1,000 ml @ 100 mls/hr 1X ONCE IV Last administered on 01/27/17 13:30; Start 01/27/17 at 13:30; Stop 01/27/17 at 23:29; Status DC Enoxaparin Sodium (Lovenox Per Pharmacy Treatment Dosing) 1 each PRN DAILY PRN MC SEE COMMENTS; Start 01/27/17 at 16:00; Stop 01/28/17 at 12:15; Status DC Enoxaparin Sodium 75 mg 75 mg Q12HR SQ Last administered on 01/28/17 09:07; Start 01/27/17 at 18:00; Stop 01/28/17 at 12:15; Status DC Magnesium Sulfate/ Dextrose 50 ml @ 25 mls/hr PRN DAILY PRN IV for Mag < 1.7 on am labs; Start 01/27/17 at 17:45; Stop 01/30/17 at 10:08; Status DC Sodium Chloride (Iv Sodium Chloride 0.9% 500ml Bag) 500 ml @ 0 mls/hr QID PRN IV For MAP < 65; Start 01/27/17 at 17:45; Stop 01/30/17 at 10:08; Status DC Info (Anti-Coagulation Monitoring By Pharmacy) 1 each PRN DAILY PRN MC SEE COMMENTS Last administered on 01/28/17 07:45; Start 01/28/17 at 07:45; Stop at 14:34; Status DC Enoxaparin Sodium 40 mg 40 mg Q24H SQ Last administered on 01/31/17 09:52; Start 01/29/17 at 09:00 Vancomycin HCl/ Sodium Chloride (Iv Sodium Chloride 0.9% 250ml) 250 ml @ 167 mls/hr Q12H IV Last administered on 01/29/17 21:45; Start 01/29/17 at 10:00; Stop 01/30/17 at 09:19; Status DC Vancomycin HCl 1 each 1X ONCE MC ; Start 01/30/17 at 09:30; Stop 01/30/17 at 09 :31; Status Cancel Oxycodone/ Acetaminophen (Percocet 10/325) 1 tab PRN Q4HRS PRN PO pain Last administered on 01/31/17 09:47; Start 01/29/17 at 08:45 Oxycodone/ Acetaminophen 1 tab 1 tab PRN Q4HRS PRN PO PAIN Last administered on 01/31/17 05:49; Start 01/29/17 at 08:45 Sodium Chloride (Iv Sodium Chloride 0.9% 1000ml Bag) 1,000 ml @ 75 mls/hr 1X ONCE IV Last administered on 01/30/17 09:25; Start 01/30/17 at 09:00; Stop at 22:19; Status DC Digoxin 250 mcg 250 mcg 1X ONCE IV Last administered on 01/30/17 09:25; Start 01/30/17 at 09:00; Stop 01/30/17 at 09:01; Status DC Amino Acids/ Electrolytes (Clinimix E 2.75%-5% Solution) 2,000 ml @ 80 mls/hr Q24H IV Last administered on 01/30/17 16:49; Start 01/30/17 at 15:00; Stop at 17:22; Status DC Haloperidol Lactate (Haldol) 5 mg PRN Q4HRS PRN IVP AGITATION Last administered on 01/31/17 05:12; Start 01/31/17 at 05:00 Digoxin 125 mcg 125 mcg DAILY IV Last administered on 01/31/17 09:57; Start at 10:00 Potassium Chloride 50 ml @ 50 mls/hr 1X ONCE IV ; Start 01/31/17 at 09:30; Stop 01/31/17 at 10:29; Status UNV Potassium Chloride (KCl Premix 10meq) 100 ml @ 100 mls/hr Q1H IV Last administered on 01/31/17 12:33; Start 01/31/17 at 09:45; Stop 01/31/17 at 11:44 ; Status DC Lorazepam 2 mg 2 mg PRN Q4HRS PRN IV ANXIETY / AGITATION Last administered on 18:41; Start 01/31/17 at 13:30 Multivitamins/ Folic Acid/ Thiamine HCl/ Dextrose/Sodium Chloride (Infuvite Adult/ Iv D5% - 1/2 NS) 1,011.2 ml @ 100 mls/ hr DAILY IV Last administered on 01/31/17 16:12; Start 01/31/17 at 15:30 Chlordiazepoxide 25 mg 25 mg PRN Q6HRS PRN PO ANXIETY / AGITATION Last administered on 01/31/17 14:27; Start 01/31/17 at 13:45 Amino Acids/ Electrolytes (Clinimix E 2.75%-5% Solution) 1,000 ml @ 80 mls/hr [id number] IV Last administered on 01/31/17 18:39; Start 01/31/17 at 17:22 Active Scripts Active Reported Remicade (Infliximab) 100 Mg Vial 100 Mg IV Q8HRS Allergies Allergies: Coded Allergies: No Known Drug Allergies (Unverified , 01/25/17) Physical Exam Physical Exam REVIEW OF SYSTEMS: unobtainable NEUROLOGICAL EXAMINATION: sedated PERRL. CN: no focal findings. Muscle tone: within normal. Muscle strength: withdraw to pain stimuli DTR: 1 Plantar reflex: Flexor response bilaterally Gait: not able Sensory exam: withdraw to pain stimuli Vitals VITALS Vital Signs Date Time Temp Pulse Resp B/P Pulse Ox O2 Delivery O2 Flow Rate FiO2 01/31/17 12:12 16 Room Air 01/31/17 11:00 111 92/59 96 01/31/17 07:00 97.9 97.9 Labs Labs Laboratory Tests Test 01/30/17 03:48 01/31/17 04:40 01/31/17 11:13 01/31/17 14:00 White Blood Count 13.0x10^3/uL (4.0-11.0) 11.1x10^3/uL (4.0-11.0) Red Blood Count 4.12x10^6/uL (4.30-5.70) 4.29x10^6/uL (4.30-5.70) Hemoglobin 14.1g/dL (13.0-17.5) 14.7g/dL (13.0-17.5) Hematocrit 42.4% (39.0-53.0) 43.5% (39.0-53.0) Mean Corpuscular Volume 103fL (79-100) 101fL (79-100) Mean Corpuscular Hemoglobin 34pg (25-35) 34pg (25-35) Mean Corpuscular Hemoglobin Concent 33g/dL (31-37) 34g/dL (31-37) Red Cell Distribution Width 14.5% (11.5-14.5) 14.7% (11.5-14.5) Platelet Count 103x10^3/uL (140-400) 121x10^3/uL (140-400) Neutrophils (%) (Auto) 83% (31-73) 79% (31-73) Lymphocytes (%) (Auto) 10% (24-48) 10% (24-48) Monocytes (%) (Auto) 7% (0-9) 11% (0-9) Eosinophils (%) (Auto) 0% (0-3) 0% (0-3) Basophils (%) (Auto) 0% (0-3) 0% (0-3) Neutrophils # (Auto) 10.8x10^3uL (1.8-7.7) 8.7x10^3uL (1.8-7.7) Lymphocytes # (Auto) 1.3x10^3/uL (1.0-4.8) 1.2x10^3/uL (1.0-4.8) Monocytes # (Auto) 0.9x10^3/uL (0.0-1.1) 1.2x10^3/uL (0.0-1.1) Eosinophils # (Auto) 0.0x10^3/uL (0.0-0.7) 0.0x10^3/uL (0.0-0.7) Basophils # (Auto) 0.0x10^3/uL (0.0-0.2) 0.0x10^3/uL (0.0-0.2) Sodium Level 141mmol/L (136-145) 142mmol/L (136-145) Potassium Level 3.7mmol/L (3.5-5.1) 3.4mmol/L (3.5-5.1) Chloride Level 104mmol/L (98-107) 104mmol/L (98-107) Carbon Dioxide Level 28mmol/L (21-32) 29mmol/L (21-32) Anion Gap 9 (6-14) 9 (6-14) Blood Urea Nitrogen 14mg/dL (8-26) 21mg/dL (8-26) Creatinine 1.0mg/dL (0.7-1.3) 1.1mg/dL (0.7-1.3) Estimated GFR (Cockcroft-Gault) 73.7 66.0 Glucose Level 109mg/dL (70-99) 103mg/dL (70-99) Calcium Level 8.8mg/dL (8.5-10.1) 8.8mg/dL (8.5-10.1) Phosphorus Level 2.6mg/dL (2.6-4.7) 3.6mg/dL (2.6-4.7) Magnesium Level 1.8mg/dL (1.8-2.4) 1.8mg/dL (1.8-2.4) Albumin 1.6g/dL (3.4-5.0) 1.8g/dL (3.4-5.0) Urine Collection Type Unknown Urine Color Yellow Urine Clarity Clear Urine pH 5.5 Urine Specific [place] 1.025 Urine Protein 30mg/dL (NEG-TRACE) Urine Glucose (UA) Negativemg/dL (NEG) Urine Ketones (Stick) Tracemg/dL (NEG) Urine Blood Negative (NEG) Urine Nitrite Negative (NEG) Urine Bilirubin Negative (NEG) Urine Urobilinogen Dipstick 0.2mg/dL (0.2 mg/dL) Urine Leukocyte Esterase Negative (NEG) Urine RBC Rare/HPF (0-2) Urine WBC Occ/HPF (0-4) Urine Squamous Epithelial Cells Few/LPF Urine Bacteria Few/HPF (0-FEW) Erythrocyte Sedimentation Rate 109 (0-15) Laboratory Tests Test 01/31/17 04:40 01/31/17 11:13 01/31/17 14:00 White Blood Count 11.1x10^3/uL (4.0-11.0) Red Blood Count 4.29x10^6/uL (4.30-5.70) Hemoglobin 14.7g/dL (13.0-17.5) Hematocrit 43.5% (39.0-53.0) Mean Corpuscular Volume 101fL (79-100) Mean Corpuscular Hemoglobin 34pg (25-35) Mean Corpuscular Hemoglobin Concent 34g/dL (31-37) Red Cell Distribution Width 14.7% (11.5-14.5) Platelet Count 121x10^3/uL (140-400) Neutrophils (%) (Auto) 79% (31-73) Lymphocytes (%) (Auto) 10% (24-48) Monocytes (%) (Auto) 11% (0-9) Eosinophils (%) (Auto) 0% (0-3) Basophils (%) (Auto) 0% (0-3) Neutrophils # (Auto) 8.7x10^3uL (1.8-7.7) Lymphocytes # (Auto) 1.2x10^3/uL (1.0-4.8) Monocytes # (Auto) 1.2x10^3/uL (0.0-1.1) Eosinophils # (Auto) 0.0x10^3/uL (0.0-0.7) Basophils # (Auto) 0.0x10^3/uL (0.0-0.2) Sodium Level 142mmol/L (136-145) Potassium Level 3.4mmol/L (3.5-5.1) Chloride Level 104mmol/L (98-107) Carbon Dioxide Level 29mmol/L (21-32) Anion Gap 9 (6-14) Blood Urea Nitrogen 21mg/dL (8-26) Creatinine 1.1mg/dL (0.7-1.3) Estimated GFR (Cockcroft-Gault) 66.0 Glucose Level 103mg/dL (70-99) Calcium Level 8.8mg/dL (8.5-10.1) Phosphorus Level 3.6mg/dL (2.6-4.7) Magnesium Level 1.8mg/dL (1.8-2.4) Albumin 1.8g/dL (3.4-5.0) Urine Collection Type Unknown Urine Color Yellow Urine Clarity Clear Urine pH 5.5 Urine Specific [place] 1.025 Urine Protein 30mg/dL (NEG-TRACE) Urine Glucose (UA) Negativemg/dL (NEG) Urine Ketones (Stick) Tracemg/dL (NEG) Urine Blood Negative (NEG) Urine Nitrite Negative (NEG) Urine Bilirubin Negative (NEG) Urine Urobilinogen Dipstick 0.2mg/dL (0.2 mg/dL) Urine Leukocyte Esterase Negative (NEG) Urine RBC Rare/HPF (0-2) Urine WBC Occ/HPF (0-4) Urine Squamous Epithelial Cells Few/LPF Urine Bacteria Few/HPF (0-FEW) Erythrocyte Sedimentation Rate 109 (0-15) Assessment/Plan Assessment/Plan This patient is 71-year-old man with past medical history of Crohn's disease who is on Remicade for last 2 years presented to the hospital with complaint of abdominal pain, vomiting. Patient was found to have perforated small bowel. And was taken to the OR and was found to have perforation patient underwent laparoscopy. Patient had hypotension previously. Patient is being addressed for multiple medical problems, patient is also being followed by infectious disease being currently treated for peritonitis, on antibiotics. Patient had a CT scan of the brain which did not show any acute intracranial process. Metabolic encephalopathy with multiple medical problems. check for infectious, metabolic cause. Will hold off Lumbar puncture. Will check MRI brain to rule out any acute process Continue antibiotics per infectious disease History of Crohn's disease on Remicade Recent pneumonia. History of A. fib Supportive care PTOT Discussed with family at bedside in detail. Continue medical management. KEVIN MARTINEZ MD Jan 31, 2017 19:22
[2017-01-31] MEDS: FAMOTIDINE 20 MG/2 ML VIAL IVP SCH (20:40)
[2017-01-31 22:32] VITALS: BP 103/67
[2017-02-01] VITALS (15 sets, daily range): BP systolic 77–114; BP diastolic 58–75
[2017-02-01] MEDS: LORAZEPAM 2 MG/ML VIAL IV PRN ×4 (03:40→15:30)
[2017-02-01 05:29] LABS: BASO % 0 % (0-3); EOS % 0 % (0-3); HEMATOCRIT 40.2 % (39.0-53.0); HEMOGLOBIN 13.5 g/dL (13.0-17.5); LYMPH # 1.5 x10^3/uL (1.0-4.8); LYMPH % 11 % (24-48); MEAN CORPUSCULAR HEMOGLOBIN 34 pg (25-35); MEAN CORPUSCULAR HGB CONC 34 g/dL (31-37); MEAN CORPUSCULAR VOLUME 101 fL (79-100); MONO % 11 % (0-9); NEUT % 78 % (31-73); PLATELET COUNT 152 x10^3/uL (140-400); RED BLOOD COUNT 3.97 x10^6/uL (4.30-5.70); RED CELL DISTRIBUTION WIDTH 14.7 % (11.5-14.5); WHITE BLOOD COUNT 14.3 x10^3/uL (4.0-11.0)
[2017-02-01 05:55] LABS: ALBUMIN 1.6 g/dL (3.4-5.0); CALCIUM 8.4 mg/dL (8.5-10.1); GFR 73.7; PHOSPHORUS 4.2 mg/dL (2.6-4.7); POTASSIUM 3.4 mmol/L (3.5-5.1)
[2017-02-01] MEDS: PIPERACILLIN/TAZOBACTAM 3.375 GM in IV NORMAL SALINE 50ML 50 ML IV SCH ×2 (06:06→12:48)
[2017-02-01] MEDS: DIGOXIN 500 MCG/2 ML AMPUL. IV SCH (07:26)
[2017-02-01] MEDS ORDERED: IPRATRPIUM/ALBUTEROL 0.5/2.5MG 3 ML NEBU. NEB SCH (08:00)
--- NOTE | 2017-02-01 08:35 | PDOC ---
FERNANDO [facility] [employer] CHEMIST 02/01/17 0835: SURGICAL PROGRESS NOTE Subjective mentation still altered now increased resp distress--labored, rapid breathing, tachycardia Vital Signs Vital Signs Date Time Temp Pulse Resp B/P Pulse Ox O2 Delivery O2 Flow Rate FiO2 02/01/17 07:26 124 02/01/17 07:14 100.2 99/71 92 Nasal Cannula 3.0 100.2 02/01/17 02:49 25 I&O Intake and Output 02/01/17 07:00 Intake Total 3920 ml Output Total 950 ml Balance 2970 ml Intake Oral 0 ml IV Total 1960 ml Other 1960 ml Output Urine Total 900 ml Drainage Total 50 ml General: Other (not a/o) Lungs: Other (rapid, labored breathing, diminished ) Heart: Other (tachycardia ) Abdomen: Soft, Other (ND, incision c/d/i, no erythema, stoma pink, some stool-- nothing in drains ) Labs Laboratory Tests Test 01/31/17 04:40 01/31/17 11:13 01/31/17 14:00 02/01/17 04:40 White Blood Count 11.1x10^3/uL (4.0-11.0) 14.3x10^3/uL (4.0-11.0) Red Blood Count 4.29x10^6/uL (4.30-5.70) 3.97x10^6/uL (4.30-5.70) Hemoglobin 14.7g/dL (13.0-17.5) 13.5g/dL (13.0-17.5) Hematocrit 43.5% (39.0-53.0) 40.2% (39.0-53.0) Mean Corpuscular Volume 101fL (79-100) 101fL (79-100) Mean Corpuscular Hemoglobin 34pg (25-35) 34pg (25-35) Mean Corpuscular Hemoglobin Concent 34g/dL (31-37) 34g/dL (31-37) Red Cell Distribution Width 14.7% (11.5-14.5) 14.7% (11.5-14.5) Platelet Count 121x10^3/uL (140-400) 152x10^3/uL (140-400) Neutrophils (%) (Auto) 79% (31-73) 78% (31-73) Lymphocytes (%) (Auto) 10% (24-48) 11% (24-48) Monocytes (%) (Auto) 11% (0-9) 11% (0-9) Eosinophils (%) (Auto) 0% (0-3) 0% (0-3) Basophils (%) (Auto) 0% (0-3) 0% (0-3) Neutrophils # (Auto) 8.7x10^3uL (1.8-7.7) 11.2x10^3uL (1.8-7.7) Lymphocytes # (Auto) 1.2x10^3/uL (1.0-4.8) 1.5x10^3/uL (1.0-4.8) Monocytes # (Auto) 1.2x10^3/uL (0.0-1.1) 1.6x10^3/uL (0.0-1.1) Eosinophils # (Auto) 0.0x10^3/uL (0.0-0.7) 0.0x10^3/uL (0.0-0.7) Basophils # (Auto) 0.0x10^3/uL (0.0-0.2) 0.0x10^3/uL (0.0-0.2) Sodium Level 142mmol/L (136-145) 139mmol/L (136-145) Potassium Level 3.4mmol/L (3.5-5.1) 3.4mmol/L (3.5-5.1) Chloride Level 104mmol/L (98-107) 105mmol/L (98-107) Carbon Dioxide Level 29mmol/L (21-32) 27mmol/L (21-32) Anion Gap 9 (6-14) 7 (6-14) Blood Urea Nitrogen 21mg/dL (8-26) 19mg/dL (8-26) Creatinine 1.1mg/dL (0.7-1.3) 1.0mg/dL (0.7-1.3) Estimated GFR (Cockcroft-Gault) 66.0 73.7 Glucose Level 103mg/dL (70-99) 110mg/dL (70-99) Calcium Level 8.8mg/dL (8.5-10.1) 8.4mg/dL (8.5-10.1) Phosphorus Level 3.6mg/dL (2.6-4.7) 4.2mg/dL (2.6-4.7) Magnesium Level 1.8mg/dL (1.8-2.4) 1.8mg/dL (1.8-2.4) Albumin 1.8g/dL (3.4-5.0) 1.6g/dL (3.4-5.0) Urine Collection Type Unknown Urine Color Yellow Urine Clarity Clear Urine pH 5.5 Urine Specific [place] 1.025 Urine Protein 30mg/dL (NEG-TRACE) Urine Glucose (UA) Negativemg/dL (NEG) Urine Ketones (Stick) Tracemg/dL (NEG) Urine Blood Negative (NEG) Urine Nitrite Negative (NEG) Urine Bilirubin Negative (NEG) Urine Urobilinogen Dipstick 0.2mg/dL (0.2 mg/dL) Urine Leukocyte Esterase Negative (NEG) Urine RBC Rare/HPF (0-2) Urine WBC Occ/HPF (0-4) Urine Squamous Epithelial Cells Few/LPF Urine Bacteria Few/HPF (0-FEW) Erythrocyte Sedimentation Rate 109 (0-15) Laboratory Tests Test 01/31/17 11:13 01/31/17 14:00 02/01/17 04:40 Urine Collection Type Unknown Urine Color Yellow Urine Clarity Clear Urine pH 5.5 Urine Specific [place] 1.025 Urine Protein 30mg/dL (NEG-TRACE) Urine Glucose (UA) Negativemg/dL (NEG) Urine Ketones (Stick) Tracemg/dL (NEG) Urine Blood Negative (NEG) Urine Nitrite Negative (NEG) Urine Bilirubin Negative (NEG) Urine Urobilinogen Dipstick 0.2mg/dL (0.2 mg/dL) Urine Leukocyte Esterase Negative (NEG) Urine RBC Rare/HPF (0-2) Urine WBC Occ/HPF (0-4) Urine Squamous Epithelial Cells Few/LPF Urine Bacteria Few/HPF (0-FEW) Erythrocyte Sedimentation Rate 109 (0-15) White Blood Count 14.3x10^3/uL (4.0-11.0) Red Blood Count 3.97x10^6/uL (4.30-5.70) Hemoglobin 13.5g/dL (13.0-17.5) Hematocrit 40.2% (39.0-53.0) Mean Corpuscular Volume 101fL (79-100) Mean Corpuscular Hemoglobin 34pg (25-35) Mean Corpuscular Hemoglobin Concent 34g/dL (31-37) Red Cell Distribution Width 14.7% (11.5-14.5) Platelet Count 152x10^3/uL (140-400) Neutrophils (%) (Auto) 78% (31-73) Lymphocytes (%) (Auto) 11% (24-48) Monocytes (%) (Auto) 11% (0-9) Eosinophils (%) (Auto) 0% (0-3) Basophils (%) (Auto) 0% (0-3) Neutrophils # (Auto) 11.2x10^3uL (1.8-7.7) Lymphocytes # (Auto) 1.5x10^3/uL (1.0-4.8) Monocytes # (Auto) 1.6x10^3/uL (0.0-1.1) Eosinophils # (Auto) 0.0x10^3/uL (0.0-0.7) Basophils # (Auto) 0.0x10^3/uL (0.0-0.2) Sodium Level 139mmol/L (136-145) Potassium Level 3.4mmol/L (3.5-5.1) Chloride Level 105mmol/L (98-107) Carbon Dioxide Level 27mmol/L (21-32) Anion Gap 7 (6-14) Blood Urea Nitrogen 19mg/dL (8-26) Creatinine 1.0mg/dL (0.7-1.3) Estimated GFR (Cockcroft-Gault) 73.7 Glucose Level 110mg/dL (70-99) Calcium Level 8.4mg/dL (8.5-10.1) Phosphorus Level 4.2mg/dL (2.6-4.7) Magnesium Level 1.8mg/dL (1.8-2.4) Albumin 1.6g/dL (3.4-5.0) Problem List Problems Medical Problems: (1) Perforated abdominal viscus Status: Acute Assessment/Plan s/p resection, ostomy tachycardia, leukocytosis, resp distress abdominal exam benign appears respiratory, will defer workup to pulmonary/IPC Problems: RYAN AUSTIN MD 02/01/17 1145: SURGICAL PROGRESS NOTE Assessment/Plan Reviewed, agree with above Problems: FERNANDO CEJA APRN Feb 01, 2017 08:35 RYAN AUSTIN MD Feb 01, 2017 11:45
[2017-02-01 08:53] LABS: PCO2 ABG 30 mmHg (35-46); PO2 ABG 59 mmHg (65-108)
[2017-02-01 08:54] LABS: CORRECTED PH ABG 7.48; FIO2 ABG 32; HCO3 ABG 23 mmol/L (21-28); SAT O2 ABG 92 % (92-99)
[2017-02-01 08:55] LABS: CORRECTED PCO2 ABG 32 mmHg; CORRECTED PO2 ABG 65 mmHg
--- NOTE | 2017-02-01 09:14 | RAD ---
Indication difficulty breathing. A single view of the chest was obtained and is compared to an examination one day earlier. There has been some slight increase in volume loss at the lung bases relative to the previous exam. Findings likely reflect increasing pleural fluid and atelectasis. Underlying pneumonia is not entirely excluded. Heart and pulmonary vessels are similar. IMPRESSION: Increasing volume loss at the lung bases relative to yesterday's study
[2017-02-01] MEDS ORDERED: ATROPINE 0.5 MG/5 ML DISP.SYRIN. IV PRN (09:30)
[2017-02-01] MEDS ORDERED: IV NORMAL SALINE 500ML BAG 500 ML IV PRN (09:30)
[2017-02-01] MEDS ORDERED: IV NORMAL SALINE 1000ML BAG 1,000 ML IV ONE ×2 (09:30)
--- NOTE | 2017-02-01 09:35 | PDOC ---
Provider Note Provider Note [id number] acute resp fail septic shock pneumonia peritonitis transfer to icu see orders. ÁNGEL SILVESTRE MD Feb 01, 2017 09:34
--- NOTE | 2017-02-01 09:35 | PDOC ---
CARDIOLOGY PROGRESS NOTE SUBJECTIVE: Pt. is more somnolent this a.m. Unable to respond to questions. Moved to ICU. OBJECTIVE: Vital SIgns: Vital Signs Date Time Temp Pulse Resp B/P Pulse Ox O2 Delivery O2 Flow Rate FiO2 02/01/17 08:37 91 Nasal Cannula 3.0 02/01/17 07:26 124 02/01/17 07:14 100.2 99/71 100.2 02/01/17 02:49 25 I & O Intake and Output 02/01/17 07:00 Intake Total 3920 ml Output Total 950 ml Balance 2970 ml Intake Oral 0 ml IV Total 1960 ml Other 1960 ml Output Urine Total 900 ml Drainage Total 50 ml Objective: Gen: Somnolent, non-responsive. CVS: Irr irr, tachycardic PULM: Rhonchi, upper airway sounds. ABD: Soft, NT/ND +BS EXT: No edema. NEURO: No posturing. MSK: No trauma CURRENT MEDICATIONS: Current Medications Medications (Trade) Dose Ordered Sig/Ofelia Start Time Stop Time Status Last Admin Dose Admin Albuterol/ Ipratropium 3 ml 3 ml RTQID 02/01/17 08:00 Amino Acids/ Electrolytes (Clinimix E 2.75%-5% Solution) 1,000 ml @ 80 mls/hr [id number] 01/31/17 17:22 02/01/17 07:53 DC 01/31/17 18:39 80 MLS/HR Amino Acids/ Electrolytes/ Dextrose 1,000 ml @ 80 mls/hr [id number] 02/01/17 08:00 Atropine Sulfate 0.5 mg PRN Q5MIN PRN 02/01/17 09:30 Bacitracin/Sodium Chloride (Iv Sodium Chloride 0.9% 500ml Bag) 500 ml @ 500 mls/hr 1X PERIOP ONCE 01/26/17 03:00 01/26/17 03:59 DC Budesonide 0.5 mg 0.5 mg RTBID 02/01/17 09:30 Cellulose 1 each STK-MED ONCE 01/26/17 03:38 01/26/17 03:39 DC 01/26/17 02:47 1 EACH Chlordiazepoxide 25 mg 25 mg PRN Q6HRS PRN 01/31/17 13:45 01/31/17 14:27 25 MG Dexamethasone Sodium Phosphate (Decadron) 20 mg STK-MED ONCE 01/26/17 02:00 01/26/17 02:01 DC Dexmedetomidine HCl 200 mcg/ Sodium Chloride 50 ml @ 0 mls/hr CONT PRN 02/01/17 09:30 Digoxin (Lanoxin) 250 mcg 1X ONCE 01/30/17 09:00 01/30/17 09:01 DC 01/30/17 09:25 250 MCG Digoxin 125 mcg 125 mcg DAILY 01/31/17 10:00 02/01/17 07:26 125 MCG Diltiazem HCl 125 mg/Dextrose 125 ml @ 0 mls/hr CONT PRN 01/27/17 11:45 01/29/17 08:37 DC 01/27/17 23:12 10 MLS/HR Diphenhydramine HCl (Benadryl) 25 mg PRN Q6HRS PRN 01/26/17 05:45 01/31/17 11:44 25 MG Enoxaparin Sodium (Lovenox 40mg Syringe) 40 mg Q24H 01/26/17 09:00 01/27/17 15:59 DC 01/27/17 08:48 40 MG Enoxaparin Sodium (Lovenox Per Pharmacy Treatment Dosing) 1 each PRN DAILY PRN 01/27/17 16:00 01/28/17 12:15 DC Enoxaparin Sodium 40 mg 40 mg Q24H 01/29/17 09:00 01/31/17 09:52 40 MG Enoxaparin Sodium 75 mg 75 mg Q12HR 01/27/17 18:00 01/28/17 12:15 DC 01/28/17 09:07 75 MG Esmolol HCl (Brevibloc) 100 mg STK-MED ONCE 01/26/17 04:28 01/26/17 04:29 DC Famotidine (Pepcid) 20 mg QHS 01/27/17 21:00 01/31/17 20:40 20 MG Fentanyl Citrate (Fentanyl 2ml Vial) 50 mcg PRN Q5MIN PRN 01/26/17 02:15 01/27/17 02:14 DC Fentanyl Citrate 100 mcg 100 mcg STK-MED ONCE 01/26/17 05:09 01/26/17 05:10 DC Glycopyrrolate (Robinul) 1 mg STK-MED ONCE 01/26/17 04:23 01/26/17 04:24 DC Haloperidol Lactate (Haldol) 5 mg PRN Q4HRS PRN 01/31/17 05:00 01/31/17 05:12 5 MG Hydrocortisone Sodium Succinate (Solu-Cortef) 100 mg STK-MED ONCE 01/26/17 02:24 01/26/17 02:25 DC Hydromorphone HCl (Dilaudid Standard [employer]) 30 ml @ 0 mls/hr CONT PRN PRN 01/26/17 05:45 01/29/17 08:37 DC 01/28/17 01:36 0.3 MLS/HR Hydromorphone HCl (Dilaudid) 1 mg PRN Q1HR PRN 01/26/17 05:45 01/31/17 23:58 1 MG Hydromorphone HCl 1 mg 1 mg 1X ONCE 01/26/17 02:00 01/26/17 02:01 DC Info (Anti-Coagulation Monitoring By Pharmacy) 1 each PRN DAILY PRN 01/28/17 07:45 01/28/17 14:34 DC 01/28/17 07:45 1 EACH Info (Do NOT chart on this entry -- for MONITORING) 1 each PRN DAILY PRN 01/25/17 23:45 01/27/17 23:44 DC Iohexol (Omnipaque 300 Mg/ml) 75 ml 1X ONCE 01/26/17 00:00 01/26/17 00:01 DC 01/25/17 23:55 75 ML Lactated Ringer's (Iv Lactated Ringers) 1,000 ml @ 30 mls/hr Q24H 01/26/17 02:09 01/26/17 14:08 DC Lidocaine HCl 2 ml 1X PRN PRN 01/26/17 02:15 01/27/17 02:14 DC Lorazepam 2 mg 2 mg PRN Q4HRS PRN 01/31/17 13:30 02/01/17 07:25 2 MG Magnesium Sulfate/ Dextrose (Magnesium Sulfate PREMIX 2GM) 50 ml @ 25 mls/hr PRN DAILY PRN 01/27/17 17:45 01/30/17 10:08 DC Metronidazole (FLAGYL 500Mmg PREMIX) 100 ml @ 100 mls/hr Q12HR 01/26/17 09:00 01/26/17 09:00 DC Morphine Sulfate 1 mg 1 mg PRN Q10MIN PRN 01/26/17 02:15 01/27/17 02:14 DC Multivitamins/ Folic Acid/ Thiamine HCl/ Dextrose/Sodium Chloride (Infuvite Adult/ Iv D5% - 1/2 NS) 1,011.2 ml @ 100 mls/ hr DAILY 01/31/17 15:30 01/31/17 16:12 100 MLS/HR Neostigmine Methylsulfate 5 mg STK-MED ONCE 01/26/17 04:23 01/26/17 04:24 DC Nicotine 1 patch 1 patch DAILY 01/26/17 09:00 01/31/17 09:48 1 PATCH Ondansetron HCl (Zofran) 4 mg PRN Q6HRS PRN 01/26/17 05:45 01/30/17 14:08 4 MG Ondansetron HCl 4 mg 4 mg STK-MED ONCE 01/26/17 02:00 01/26/17 02:01 DC Oxycodone/ Acetaminophen (Percocet 10/325) 1 tab PRN Q4HRS PRN 01/29/17 08:45 01/31/17 09:47 1 TAB Oxycodone/ Acetaminophen (Percocet 5/325) 1 tab PRN Q4HRS PRN 01/29/17 08:45 01/31/17 05:49 1 TAB Phenylephrine HCl (Bhargav-Synephrine Inj) 10 mg STK-MED ONCE 01/26/17 03:32 01/26/17 03:33 DC Piperacillin Sod/ Tazobactam Sod 3.375 gm/Sodium Chloride 50 ml @ 100 mls/hr Q6HRS 01/26/17 08:00 02/01/17 06:06 100 MLS/HR Piperacillin Sod/ Tazobactam Sod/ Sodium Chloride (Zosyn/Iv Sodium Chloride 0.9% 50ml) 50 ml @ 100 mls/hr 1X ONCE 01/26/17 02:00 01/26/17 02:29 DC 01/26/17 02:43 100 MLS/HR Potassium Chloride/Sodium Chloride 1,000 ml @ 100 mls/hr Q10H 01/26/17 06:00 01/27/17 13:26 DC 01/26/17 21:24 100 MLS/HR Potassium Chloride (KCl Premix 10meq) 100 ml @ 100 mls/hr Q1H 01/31/17 09:45 01/31/17 11:44 DC 01/31/17 12:33 100 MLS/HR Prochlorperazine Edisylate 5 mg 5 mg PACU PRN PRN 01/26/17 02:15 01/27/17 02:14 DC Propofol (Diprivan) 20 ml @ As Directed STK-MED ONCE 01/26/17 02:00 01/26/17 02:01 DC Rocuronium [place] (Zemuron) 50 mg STK-MED ONCE 01/26/17 03:36 01/26/17 03:37 DC Sevoflurane (Ultane) 90 ml STK-MED ONCE 01/26/17 04:23 01/26/17 04:24 DC Sodium Chloride (Iv Sodium Chloride 0.45%) 1,000 ml @ 100 mls/hr 1X ONCE 01/27/17 13:30 01/27/17 23:29 DC 01/27/17 13:30 100 MLS/HR Sodium Chloride (Iv Sodium Chloride 0.9% 500ml Bag) 500 ml @ 500 mls/hr 1X PRN PRN 02/01/17 09:30 Sodium Chloride (Iv Sodium Chloride 0.9% 1000ml Bag) 1,000 ml @ 1,000 mls/hr 1X ONCE 02/01/17 09:30 02/01/17 10:29 Sodium Chloride 3 ml 3 ml QSHIFT PRN 01/26/17 05:45 Succinylcholine Chloride (Anectine) 200 mg STK-MED ONCE 01/26/17 02:00 01/26/17 02:01 DC Throat Lozenges (Cepacol Sore Throat Lozenge) 1 west PRN Q2HRS PRN 01/26/17 05:45 Throat Lozenges (Chloraseptic) 1 spray PRN Q2HR PRN 01/26/17 05:45 Vancomycin HCl 1 each 1X ONCE 01/30/17 09:30 01/30/17 09:31 Cancel Vancomycin HCl 1 each 1 each 1X ONCE 01/28/17 21:30 01/28/17 21:31 DC 01/28/17 21:30 1 EACH Vancomycin HCl/ Sodium Chloride (Iv Sodium Chloride 0.9% 250ml) 250 ml @ 167 mls/hr Q12H 01/29/17 10:00 01/30/17 09:19 DC 01/29/17 21:45 167 MLS/HR Vancomycin HCl/ Sodium Chloride (Iv Sodium Chloride 0.9% 500ml Bag) 500 ml @ 250 mls/hr 1X ONCE 01/26/17 08:00 01/26/17 09:59 DC 01/26/17 09:02 250 MLS/HR DIAGNOSTIC TESTING: Wbc 14 K 3.4 CXR with possible RLL infiltrate ASSESSMENT: 1. Afib with RVR in the setting of possible new PNA, recent abdominal surgery. 2. Cannot rule out mild diastolic HF. Problems: PLAN: 1. Supportive care with Bipap, fluids, abx if needed per pulm 2. Will use IV digoxin for afib that is non-responsive to supportive care after treatment with concurrent tx of hypokalemia 3. Will follow. KATIE PARK MD Feb 01, 2017 09:34
[2017-02-01] MEDS: ENOXAPARIN 40 MG/0.4 ML SYRINGE. SQ SCH (09:55)
[2017-02-01] MEDS: MULTIVIT INFUSN,ADULT 4,VIT K 10 ML, FOLIC ACID 1 MG, THIAMINE 100 MG in IV DEXTROSE 5 ... IV SCH (10:03)
[2017-02-01] MEDS: DEXMEDETOMIDINE 200 MCG in IV NORMAL SALINE 50ML 48 ML IV PRN ×2 (10:03→23:17)
[2017-02-01] MEDS: HYDROCORTISONE SOD SUCC/PF 100 MG/2 ML VIAL. IV SCH ×3 (10:16→23:16)
[2017-02-01] MEDS: NICOTINE 21MG PATCH. TD SCH (10:16)
--- NOTE | 2017-02-01 10:23 | PDOC ---
PROGRESS NOTES Chief Complaint Chief Complaint Bowel perf ASSESSMENT AND PLAN: 1. SEVERE SEPSIS with ORGAN Dysfunction - new (02/01/17) 1. Colonic perforation: s/p emergent resection of splenic flexure with Paiz pouch on 01/26 2. Peritonitis, fecaloid material intra op 3. Crohn's: on remicade on O/p basis, i.e. immunosuppressed 4. VELVET: recovering. 5. Hyperkalemia: resolved 6. Aflutter: new. resolved (Transient) 6. Thrombocytopenia: resolved 7. Anemia, macrocytic: 8. Leukocytosis: reactive; 9. Agitation: personality vs EtOH W/D. 10. COugh 11. SMOker 12. METABOLIC ENCEPHALOPATHY new (01/30/17) History of Present Illness History of Present Illness Remains confused sitter bedside (confusion started thursday) But THIS AM, call from RN, tachypneic, 30s RR, hypotensive, Also febrile T max 102. I did order for stat ABG and CXR and stat pulmo consults: ABG pH 7.5, Co2 ok, O2 39 - hypoxic CXR: IMPRESSION: Increasing volume loss at the lung bases relative to yesterday' s study (Brenden espinoza personally reviewed) On zosyn with ID on board PLAN: Transfer to ICU Consult pulmo \Bolus iVF If no resolve might need pressor BIPAP - per pulmo Check lactate CBC and BMP adriana COnt lovenox SQ Cot banana bag (daily drinker) Started on precedex by pulmo MIght need to add/more broad spectrum Check BC stat CC 31 mins Dw pulmo and IT PROFESSIONAL Cont sitter for now Vitals Vitals Vital Signs Date Time Temp Pulse Resp B/P Pulse Ox O2 Delivery O2 Flow Rate FiO2 02/01/17 09:49 95 BiPAP/CPAP 02/01/17 08:37 3.0 02/01/17 07:26 124 02/01/17 07:14 100.2 99/71 100.2 02/01/17 02:49 25 Physical Exam General: Other (not a/o) Heart: Other (tachycardia ) Lungs: Clear Abdomen: Soft, Other (ND, incision c/d/i, no erythema, stoma pink, some stool-- nothing in drains ) Extremities: No edema, Normal pulses Skin: No significant lesion, Other Labs LABS Laboratory Tests Test 01/31/17 11:13 01/31/17 14:00 02/01/17 04:40 02/01/17 07:15 Urine Collection Type Unknown Urine Color Yellow Urine Clarity Clear Urine pH 5.5 Urine Specific [place] 1.025 Urine Protein 30mg/dL (NEG-TRACE) Urine Glucose (UA) Negativemg/dL (NEG) Urine Ketones (Stick) Tracemg/dL (NEG) Urine Blood Negative (NEG) Urine Nitrite Negative (NEG) Urine Bilirubin Negative (NEG) Urine Urobilinogen Dipstick 0.2mg/dL (0.2 mg/dL) Urine Leukocyte Esterase Negative (NEG) Urine RBC Rare/HPF (0-2) Urine WBC Occ/HPF (0-4) Urine Squamous Epithelial Cells Few/LPF Urine Bacteria Few/HPF (0-FEW) Erythrocyte Sedimentation Rate 109 (0-15) White Blood Count 14.3x10^3/uL (4.0-11.0) Red Blood Count 3.97x10^6/uL (4.30-5.70) Hemoglobin 13.5g/dL (13.0-17.5) Hematocrit 40.2% (39.0-53.0) Mean Corpuscular Volume 101fL (79-100) Mean Corpuscular Hemoglobin 34pg (25-35) Mean Corpuscular Hemoglobin Concent 34g/dL (31-37) Red Cell Distribution Width 14.7% (11.5-14.5) Platelet Count 152x10^3/uL (140-400) Neutrophils (%) (Auto) 78% (31-73) Lymphocytes (%) (Auto) 11% (24-48) Monocytes (%) (Auto) 11% (0-9) Eosinophils (%) (Auto) 0% (0-3) Basophils (%) (Auto) 0% (0-3) Neutrophils # (Auto) 11.2x10^3uL (1.8-7.7) Lymphocytes # (Auto) 1.5x10^3/uL (1.0-4.8) Monocytes # (Auto) 1.6x10^3/uL (0.0-1.1) Eosinophils # (Auto) 0.0x10^3/uL (0.0-0.7) Basophils # (Auto) 0.0x10^3/uL (0.0-0.2) Sodium Level 139mmol/L (136-145) Potassium Level 3.4mmol/L (3.5-5.1) Chloride Level 105mmol/L (98-107) Carbon Dioxide Level 27mmol/L (21-32) Anion Gap 7 (6-14) Blood Urea Nitrogen 19mg/dL (8-26) Creatinine 1.0mg/dL (0.7-1.3) Estimated GFR (Cockcroft-Gault) 73.7 Glucose Level 110mg/dL (70-99) Calcium Level 8.4mg/dL (8.5-10.1) Phosphorus Level 4.2mg/dL (2.6-4.7) Magnesium Level 1.8mg/dL (1.8-2.4) Albumin 1.6g/dL (3.4-5.0) O2 Saturation 92% (92-99) Arterial Blood pH 7.50 (7.35-7.45) Arterial Blood pH (Temp corrected) 7.48 Arterial Blood pCO2 at Patient Temp 30mmHg (35-46) Arterial Blood pCO2 (Temp correct) 32mmHg Arterial Blood pO2 at Patient Temp 59mmHg (65-108) Arterial Blood pO2 (Temp corrected) 65mmHg Arterial Blood HCO3 23mmol/L (21-28) Arterial Blood Base Excess 1mmol/L (-3-3) FiO2 32 Review of Systems Review of Systems confused Assessment and Plan Assessmemt and Plan Problems Medical Problems: (1) Perforated abdominal viscus Status: Acute Problems: Comment Review of Relevant I have reviewed the following items manuel (where applicable) has been applied. Labs Laboratory Tests Test 01/31/17 04:40 01/31/17 11:13 01/31/17 14:00 02/01/17 04:40 White Blood Count 11.1x10^3/uL (4.0-11.0) 14.3x10^3/uL (4.0-11.0) Red Blood Count 4.29x10^6/uL (4.30-5.70) 3.97x10^6/uL (4.30-5.70) Hemoglobin 14.7g/dL (13.0-17.5) 13.5g/dL (13.0-17.5) Hematocrit 43.5% (39.0-53.0) 40.2% (39.0-53.0) Mean Corpuscular Volume 101fL (79-100) 101fL (79-100) Mean Corpuscular Hemoglobin 34pg (25-35) 34pg (25-35) Mean Corpuscular Hemoglobin Concent 34g/dL (31-37) 34g/dL (31-37) Red Cell Distribution Width 14.7% (11.5-14.5) 14.7% (11.5-14.5) Platelet Count 121x10^3/uL (140-400) 152x10^3/uL (140-400) Neutrophils (%) (Auto) 79% (31-73) 78% (31-73) Lymphocytes (%) (Auto) 10% (24-48) 11% (24-48) Monocytes (%) (Auto) 11% (0-9) 11% (0-9) Eosinophils (%) (Auto) 0% (0-3) 0% (0-3) Basophils (%) (Auto) 0% (0-3) 0% (0-3) Neutrophils # (Auto) 8.7x10^3uL (1.8-7.7) 11.2x10^3uL (1.8-7.7) Lymphocytes # (Auto) 1.2x10^3/uL (1.0-4.8) 1.5x10^3/uL (1.0-4.8) Monocytes # (Auto) 1.2x10^3/uL (0.0-1.1) 1.6x10^3/uL (0.0-1.1) Eosinophils # (Auto) 0.0x10^3/uL (0.0-0.7) 0.0x10^3/uL (0.0-0.7) Basophils # (Auto) 0.0x10^3/uL (0.0-0.2) 0.0x10^3/uL (0.0-0.2) Sodium Level 142mmol/L (136-145) 139mmol/L (136-145) Potassium Level 3.4mmol/L (3.5-5.1) 3.4mmol/L (3.5-5.1) Chloride Level 104mmol/L (98-107) 105mmol/L (98-107) Carbon Dioxide Level 29mmol/L (21-32) 27mmol/L (21-32) Anion Gap 9 (6-14) 7 (6-14) Blood Urea Nitrogen 21mg/dL (8-26) 19mg/dL (8-26) Creatinine 1.1mg/dL (0.7-1.3) 1.0mg/dL (0.7-1.3) Estimated GFR (Cockcroft-Gault) 66.0 73.7 Glucose Level 103mg/dL (70-99) 110mg/dL (70-99) Calcium Level 8.8mg/dL (8.5-10.1) 8.4mg/dL (8.5-10.1) Phosphorus Level 3.6mg/dL (2.6-4.7) 4.2mg/dL (2.6-4.7) Magnesium Level 1.8mg/dL (1.8-2.4) 1.8mg/dL (1.8-2.4) Albumin 1.8g/dL (3.4-5.0) 1.6g/dL (3.4-5.0) Urine Collection Type Unknown Urine Color Yellow Urine Clarity Clear Urine pH 5.5 Urine Specific [place] 1.025 Urine Protein 30mg/dL (NEG-TRACE) Urine Glucose (UA) Negativemg/dL (NEG) Urine Ketones (Stick) Tracemg/dL (NEG) Urine Blood Negative (NEG) Urine Nitrite Negative (NEG) Urine Bilirubin Negative (NEG) Urine Urobilinogen Dipstick 0.2mg/dL (0.2 mg/dL) Urine Leukocyte Esterase Negative (NEG) Urine RBC Rare/HPF (0-2) Urine WBC Occ/HPF (0-4) Urine Squamous Epithelial Cells Few/LPF Urine Bacteria Few/HPF (0-FEW) Erythrocyte Sedimentation Rate 109 (0-15) Test 02/01/17 07:15 O2 Saturation 92% (92-99) Arterial Blood pH 7.50 (7.35-7.45) Arterial Blood pH (Temp corrected) 7.48 Arterial Blood pCO2 at Patient Temp 30mmHg (35-46) Arterial Blood pCO2 (Temp correct) 32mmHg Arterial Blood pO2 at Patient Temp 59mmHg (65-108) Arterial Blood pO2 (Temp corrected) 65mmHg Arterial Blood HCO3 23mmol/L (21-28) Arterial Blood Base Excess 1mmol/L (-3-3) FiO2 32 Laboratory Tests Test 01/31/17 11:13 01/31/17 14:00 02/01/17 04:40 02/01/17 07:15 Urine Collection Type Unknown Urine Color Yellow Urine Clarity Clear Urine pH 5.5 Urine Specific [place] 1.025 Urine Protein 30mg/dL (NEG-TRACE) Urine Glucose (UA) Negativemg/dL (NEG) Urine Ketones (Stick) Tracemg/dL (NEG) Urine Blood Negative (NEG) Urine Nitrite Negative (NEG) Urine Bilirubin Negative (NEG) Urine Urobilinogen Dipstick 0.2mg/dL (0.2 mg/dL) Urine Leukocyte Esterase Negative (NEG) Urine RBC Rare/HPF (0-2) Urine WBC Occ/HPF (0-4) Urine Squamous Epithelial Cells Few/LPF Urine Bacteria Few/HPF (0-FEW) Erythrocyte Sedimentation Rate 109 (0-15) White Blood Count 14.3x10^3/uL (4.0-11.0) Red Blood Count 3.97x10^6/uL (4.30-5.70) Hemoglobin 13.5g/dL (13.0-17.5) Hematocrit 40.2% (39.0-53.0) Mean Corpuscular Volume 101fL (79-100) Mean Corpuscular Hemoglobin 34pg (25-35) Mean Corpuscular Hemoglobin Concent 34g/dL (31-37) Red Cell Distribution Width 14.7% (11.5-14.5) Platelet Count 152x10^3/uL (140-400) Neutrophils (%) (Auto) 78% (31-73) Lymphocytes (%) (Auto) 11% (24-48) Monocytes (%) (Auto) 11% (0-9) Eosinophils (%) (Auto) 0% (0-3) Basophils (%) (Auto) 0% (0-3) Neutrophils # (Auto) 11.2x10^3uL (1.8-7.7) Lymphocytes # (Auto) 1.5x10^3/uL (1.0-4.8) Monocytes # (Auto) 1.6x10^3/uL (0.0-1.1) Eosinophils # (Auto) 0.0x10^3/uL (0.0-0.7) Basophils # (Auto) 0.0x10^3/uL (0.0-0.2) Sodium Level 139mmol/L (136-145) Potassium Level 3.4mmol/L (3.5-5.1) Chloride Level 105mmol/L (98-107) Carbon Dioxide Level 27mmol/L (21-32) Anion Gap 7 (6-14) Blood Urea Nitrogen 19mg/dL (8-26) Creatinine 1.0mg/dL (0.7-1.3) Estimated GFR (Cockcroft-Gault) 73.7 Glucose Level 110mg/dL (70-99) Calcium Level 8.4mg/dL (8.5-10.1) Phosphorus Level 4.2mg/dL (2.6-4.7) Magnesium Level 1.8mg/dL (1.8-2.4) Albumin 1.6g/dL (3.4-5.0) O2 Saturation 92% (92-99) Arterial Blood pH 7.50 (7.35-7.45) Arterial Blood pH (Temp corrected) 7.48 Arterial Blood pCO2 at Patient Temp 30mmHg (35-46) Arterial Blood pCO2 (Temp correct) 32mmHg Arterial Blood pO2 at Patient Temp 59mmHg (65-108) Arterial Blood pO2 (Temp corrected) 65mmHg Arterial Blood HCO3 23mmol/L (21-28) Arterial Blood Base Excess 1mmol/L (-3-3) FiO2 32 Microbiology 01/26/17 Gram Stain - Final, Complete Medications Current Medications Sodium Chloride (Iv Sodium Chloride 0.9% 1000ml Bag) 1,000 ml @ 100 mls/hr Q10H IV Last administered on 01/25/17 22:11; Start 01/25/17 at 22:30; Stop at 08:29; Status DC Ondansetron HCl (Zofran) 4 mg 1X ONCE IV Last administered on 01/25/17 22:12 ; Start 01/25/17 at 22:30; Stop 01/25/17 at 22:31; Status DC Fentanyl Citrate (Fentanyl 2ml Vial) 75 mcg PRN Q15MIN PRN IV PAIN GREATER THAN 3/10 Last administered on 01/26/17 00:50; Start 01/25/17 at 22:00; Stop at 21:59; Status DC Fentanyl Citrate (Fentanyl 2ml Vial) 100 mcg 1X ONCE IV Last administered on 22:12; Start 01/25/17 at 22:30; Stop 01/25/17 at 22:31; Status DC Iohexol (Omnipaque 300 Mg/ml) 75 ml 1X ONCE IV Last administered on 01/25/17 23:55; Start 01/26/17 at 00:00; Stop 01/26/17 at 00:01; Status DC Info 1 each 1 each PRN DAILY PRN MC SEE COMMENTS; Start 01/25/17 at 23:45; Stop 01/27/17 at 23:44; Status DC Piperacillin Sod/ Tazobactam Sod 3.375 gm/Sodium Chloride 50 ml @ 100 mls/hr 1X ONCE IV Last administered on 01/26/17 00:56; Start 01/26/17 at 01:00; Stop 01/26/17 at 01:29; Status DC Sodium Chloride (Iv Sodium Chloride 0.9% 1000ml Bag) 1,000 ml @ 100 mls/hr 1X ONCE IV Last administered on 01/26/17 00:53; Start 01/26/17 at 01:00; Stop at 10:59; Status DC Hydromorphone HCl (Dilaudid) 1 mg 1X ONCE IV Last administered on 01/26/17 01 :33; Start 01/26/17 at 01:30; Stop 01/26/17 at 01:34; Status DC Hydromorphone HCl 1 mg 1 mg 1X ONCE IV ; Start 01/26/17 at 02:00; Stop at 02:01; Status DC Piperacillin Sod/ Tazobactam Sod/ Sodium Chloride (Zosyn/Iv Sodium Chloride 0.9 % 50ml) 50 ml @ 100 mls/hr 1X ONCE IV Last administered on 01/26/17 02:43; Start 01/26/17 at 02:00; Stop 01/26/17 at 02:29; Status DC Dexamethasone Sodium Phosphate (Decadron) 20 mg STK-MED ONCE .ROUTE ; Start at 02:00; Stop 01/26/17 at 02:01; Status DC Ondansetron HCl 4 mg 4 mg STK-MED ONCE .ROUTE ; Start 01/26/17 at 02:00; Stop at 02:01; Status DC Propofol (Diprivan) 20 ml @ As Directed STK-MED ONCE IV ; Start 01/26/17 at 02: 00; Stop 01/26/17 at 02:01; Status DC Lidocaine HCl 100 mg STK-MED ONCE .ROUTE ; Start 01/26/17 at 02:00; Stop at 02:01; Status DC Fentanyl Citrate (Fentanyl 2ml Vial) 100 mcg STK-MED ONCE .ROUTE ; Start at 02:00; Stop 01/26/17 at 02:01; Status DC Succinylcholine Chloride (Anectine) 200 mg STK-MED ONCE .ROUTE ; Start 01/26/17 at 02:00; Stop 01/26/17 at 02:01; Status DC Rocuronium [place] (Zemuron) 50 mg STK-MED ONCE .ROUTE ; Start 01/26/17 at 02:00 ; Stop 01/26/17 at 02:01; Status DC Ondansetron HCl (Zofran) 4 mg PRN Q6HRS PRN IV Nausea; Start 01/26/17 at 02:15 ; Stop 01/27/17 at 02:14; Status DC Fentanyl Citrate (Fentanyl 2ml Vial) 25 mcg PRN Q5MIN PRN IV MILD PAIN; Start 01/26/17 at 02:15; Stop 01/27/17 at 02:14; Status DC Fentanyl Citrate (Fentanyl 2ml Vial) 50 mcg PRN Q5MIN PRN IV MODERATE PAIN; Start 01/26/17 at 02:15; Stop 01/27/17 at 02:14; Status DC Morphine Sulfate 1 mg 1 mg PRN Q10MIN PRN IV SEVERE PAIN; Start 01/26/17 at 02: 15; Stop 01/27/17 at 02:14; Status DC Lactated Ringer's (Iv Lactated Ringers) 1,000 ml @ 30 mls/hr Q24H IV ; Start at 02:09; Stop 01/26/17 at 14:08; Status DC Lidocaine HCl 2 ml 1X PRN PRN ID IV START; Start 01/26/17 at 02:15; Stop at 02:14; Status DC Hydromorphone HCl (Dilaudid) 0.5 mg PRN Q10MIN PRN IV SEV PAIN,Second choice Last administered on 01/26/17 06:29; Start 01/26/17 at 02:15; Stop 01/27/17 at 02:14; Status DC Prochlorperazine Edisylate 5 mg 5 mg PACU PRN PRN IV NAUSEA; Start 01/26/17 at 02:15; Stop 01/27/17 at 02:14; Status DC Bacitracin/Sodium Chloride (Iv Sodium Chloride 0.9% 500ml Bag) 500 ml @ 500 mls /hr 1X PERIOP ONCE IRR ; Start 01/26/17 at 03:00; Stop 01/26/17 at 03:59; Status DC Hydrocortisone Sodium Succinate (Solu-Cortef) 100 mg STK-MED ONCE .ROUTE ; Start 01/26/17 at 02:24; Stop 01/26/17 at 02:25; Status DC Sevoflurane (Ultane) 90 ml STK-MED ONCE IH ; Start 01/26/17 at 03:16; Stop 01/26 at 03:17; Status DC Phenylephrine HCl 1 mg STK-MED ONCE IV ; Start 01/26/17 at 03:17; Stop 01/26/17 at 03:18; Status DC Phenylephrine HCl (Bhargav-Synephrine Inj) 10 mg STK-MED ONCE .ROUTE ; Start at 03:32; Stop 01/26/17 at 03:33; Status DC Rocuronium [place] (Zemuron) 50 mg STK-MED ONCE .ROUTE ; Start 01/26/17 at 03:36 ; Stop 01/26/17 at 03:37; Status DC Cellulose 1 each STK-MED ONCE .ROUTE Last administered on 01/26/17 02:47; Start 01/26/17 at 03:38; Stop 01/26/17 at 03:39; Status DC Glycopyrrolate (Robinul) 1 mg STK-MED ONCE .ROUTE ; Start 01/26/17 at 04:23; Stop 01/26/17 at 04:24; Status DC Neostigmine Methylsulfate 5 mg STK-MED ONCE .ROUTE ; Start 01/26/17 at 04:23; Stop 01/26/17 at 04:24; Status DC Sevoflurane (Ultane) 90 ml STK-MED ONCE IH ; Start 01/26/17 at 04:23; Stop 01/26 at 04:24; Status DC Esmolol HCl (Brevibloc) 100 mg STK-MED ONCE IV ; Start 01/26/17 at 04:28; Stop 01/26/17 at 04:29; Status DC Fentanyl Citrate 100 mcg 100 mcg STK-MED ONCE .ROUTE ; Start 01/26/17 at 05:09; Stop 01/26/17 at 05:10; Status DC Metronidazole (FLAGYL 500Mmg PREMIX) 100 ml @ 100 mls/hr Q12HR IV ; Start 01/26 at 09:00; Stop 01/26/17 at 09:00; Status DC Diphenhydramine HCl (Benadryl) 25 mg PRN Q6HRS PRN IV ITCHING Last administered on 01/31/17 11:44; Start 01/26/17 at 05:45 Famotidine (Pepcid) 20 mg BID IVP Last administered on 01/26/17 21:22; Start 01/26/17 at 09:00; Stop 01/27/17 at 08:10; Status DC Enoxaparin Sodium (Lovenox 40mg Syringe) 40 mg Q24H SQ Last administered on 08:48; Start 01/26/17 at 09:00; Stop 01/27/17 at 15:59; Status DC Sodium Chloride 3 ml 3 ml QSHIFT PRN IV AFTER MEDS AND BLOOD DRAWS; Start 01/26 at 05:45 Potassium Chloride/Sodium Chloride 1,000 ml @ 100 mls/hr Q10H IV Last administered on 01/26/17 21:24; Start 01/26/17 at 06:00; Stop 01/27/17 at 13:26 ; Status DC Hydromorphone HCl (Dilaudid Standard CONTINUOUS DRYOUT OPERATOR HELPER) 30 ml @ 0 mls/hr CONT PRN PRN IV PROTOCOL Last administered on 01/28/17 01:36; Start 01/26/17 at 05:45; Stop at 08:37; Status DC Hydromorphone HCl (Dilaudid) 1 mg PRN Q1HR PRN IV MODERATE PAIN Last administered on 01/31/17 23:58; Start 01/26/17 at 05:45 Ondansetron HCl (Zofran) 4 mg PRN Q6HRS PRN IV NAUESA, 1ST CHOICE Last administered on 01/30/17 14:08; Start 01/26/17 at 05:45 Throat Lozenges (Chloraseptic) 1 spray PRN Q2HR PRN PO SORE THROAT; Start 01/26 at 05:45 Throat Lozenges (Cepacol Sore Throat Lozenge) 1 west PRN Q2HRS PRN PO SORE THROAT; Start 01/26/17 at 05:45 Nicotine 1 patch 1 patch DAILY TD Last administered on 02/01/17 10:16; Start 01/26/17 at 09:00 Piperacillin Sod/ Tazobactam Sod/ Sodium Chloride (Zosyn/Iv Sodium Chloride 0.9 % 50ml) 50 ml @ 100 mls/hr Q6HRS IV Last administered on 02/01/17 06:06; Start 01/26/17 at 08:00 Vancomycin HCl 1 each 1 each PRN DAILY PRN MC SEE COMMENTS Last administered on 01/29/17 08:16; Start 01/26/17 at 07:45; Stop 01/30/17 at 09:19; Status DC Vancomycin HCl 2 gm/Sodium Chloride 500 ml @ 250 mls/hr 1X ONCE IV Last administered on 01/26/17 09:02; Start 01/26/17 at 08:00; Stop 01/26/17 at 09:59 ; Status DC Vancomycin HCl/ Sodium Chloride (Iv Sodium Chloride 0.9% 250ml) 250 ml @ 167 mls/hr Q12H IV Last administered on 01/26/17 21:22; Start 01/26/17 at 21:00; Stop 01/27/17 at 09:36; Status DC Vancomycin HCl 1 each 1X ONCE MC Last administered on 01/27/17 08:30; Start 01/27/17 at 08:30; Stop 01/27/17 at 08:31; Status DC Famotidine 20 mg 20 mg QHS IVP Last administered on 01/31/17 20:40; Start at 21:00 Vancomycin HCl/ Sodium Chloride (Iv Sodium Chloride 0.9% 250ml) 250 ml @ 167 mls/hr Q24H IV Last administered on 01/28/17 21:49; Start 01/27/17 at 22:00; Stop 01/28/17 at 23:00; Status DC Vancomycin HCl 1 each 1 each 1X ONCE MC Last administered on 01/28/17 21:30; Start 01/28/17 at 21:30; Stop 01/28/17 at 21:31; Status DC Diltiazem HCl 125 mg/Dextrose 125 ml @ 0 mls/hr CONT PRN IV SEE I/O RECORD Last administered on 01/27/17 23:12; Start 01/27/17 at 11:45; Stop 01/29/17 at 08:37; Status DC Sodium Chloride (Iv Sodium Chloride 0.45%) 1,000 ml @ 100 mls/hr 1X ONCE IV Last administered on 01/27/17 13:30; Start 01/27/17 at 13:30; Stop 01/27/17 at 23:29; Status DC Enoxaparin Sodium (Lovenox Per Pharmacy Treatment Dosing) 1 each PRN DAILY PRN MC SEE COMMENTS; Start 01/27/17 at 16:00; Stop 01/28/17 at 12:15; Status DC Enoxaparin Sodium 75 mg 75 mg Q12HR SQ Last administered on 01/28/17 09:07; Start 01/27/17 at 18:00; Stop 01/28/17 at 12:15; Status DC Magnesium Sulfate/ Dextrose 50 ml @ 25 mls/hr PRN DAILY PRN IV for Mag < 1.7 on am labs; Start 01/27/17 at 17:45; Stop 01/30/17 at 10:08; Status DC Sodium Chloride (Iv Sodium Chloride 0.9% 500ml Bag) 500 ml @ 0 mls/hr QID PRN IV For MAP < 65; Start 01/27/17 at 17:45; Stop 01/30/17 at 10:08; Status DC Info (Anti-Coagulation Monitoring By Pharmacy) 1 each PRN DAILY PRN MC SEE COMMENTS Last administered on 01/28/17 07:45; Start 01/28/17 at 07:45; Stop at 14:34; Status DC Enoxaparin Sodium 40 mg 40 mg Q24H SQ Last administered on 02/01/17 09:55; Start 01/29/17 at 09:00 Vancomycin HCl/ Sodium Chloride (Iv Sodium Chloride 0.9% 250ml) 250 ml @ 167 mls/hr Q12H IV Last administered on 01/29/17 21:45; Start 01/29/17 at 10:00; Stop 01/30/17 at 09:19; Status DC Vancomycin HCl 1 each 1X ONCE MC ; Start 01/30/17 at 09:30; Stop 01/30/17 at 09 :31; Status Cancel Oxycodone/ Acetaminophen (Percocet 10/325) 1 tab PRN Q4HRS PRN PO pain Last administered on 01/31/17 09:47; Start 01/29/17 at 08:45 Oxycodone/ Acetaminophen 1 tab 1 tab PRN Q4HRS PRN PO PAIN Last administered on 01/31/17 05:49; Start 01/29/17 at 08:45 Sodium Chloride (Iv Sodium Chloride 0.9% 1000ml Bag) 1,000 ml @ 75 mls/hr 1X ONCE IV Last administered on 01/30/17 09:25; Start 01/30/17 at 09:00; Stop at 22:19; Status DC Digoxin 250 mcg 250 mcg 1X ONCE IV Last administered on 01/30/17 09:25; Start 01/30/17 at 09:00; Stop 01/30/17 at 09:01; Status DC Amino Acids/ Electrolytes (Clinimix E 2.75%-5% Solution) 2,000 ml @ 80 mls/hr Q24H IV Last administered on 01/30/17 16:49; Start 01/30/17 at 15:00; Stop at 17:22; Status DC Haloperidol Lactate (Haldol) 5 mg PRN Q4HRS PRN IVP AGITATION Last administered on 01/31/17 05:12; Start 01/31/17 at 05:00 Digoxin 125 mcg 125 mcg DAILY IV Last administered on 02/01/17 07:26; Start at 10:00 Potassium Chloride 50 ml @ 50 mls/hr 1X ONCE IV ; Start 01/31/17 at 09:30; Stop 01/31/17 at 10:29; Status UNV Potassium Chloride (KCl Premix 10meq) 100 ml @ 100 mls/hr Q1H IV Last administered on 01/31/17 12:33; Start 01/31/17 at 09:45; Stop 01/31/17 at 11:44 ; Status DC Lorazepam 2 mg 2 mg PRN Q4HRS PRN IV ANXIETY / AGITATION Last administered on 07:25; Start 01/31/17 at 13:30 Multivitamins/ Folic Acid/ Thiamine HCl/ Dextrose/Sodium Chloride (Infuvite Adult/ Iv D5% - 1/2 NS) 1,011.2 ml @ 100 mls/ hr DAILY IV Last administered on 02/01/17 10:03; Start 01/31/17 at 15:30 Chlordiazepoxide 25 mg 25 mg PRN Q6HRS PRN PO ANXIETY / AGITATION Last administered on 01/31/17 14:27; Start 01/31/17 at 13:45 Amino Acids/ Electrolytes (Clinimix E 2.75%-5% Solution) 1,000 ml @ 80 mls/hr [id number] IV Last administered on 01/31/17 18:39; Start 01/31/17 at 17:22; Stop 02/01/17 at 07:53; Status DC Albuterol/ Ipratropium 3 ml 3 ml RTQID NEB ; Start 02/01/17 at 08:00; Stop 02/01 at 09:37; Status DC Amino Acids/ Electrolytes/ Dextrose 1,000 ml @ 80 mls/hr [id number] IV ; Start at 08:00 Sodium Chloride (Iv Sodium Chloride 0.9% 1000ml Bag) 1,000 ml @ 1,000 mls/hr 1X ONCE IV Last administered on 02/01/17 10:04; Start 02/01/17 at 09:30; Stop 02/01/17 at 10:29 Budesonide 0.5 mg 0.5 mg RTBID NEB ; Start 02/01/17 at 09:30 Dexmedetomidine HCl 200 mcg/ Sodium Chloride 50 ml @ 0 mls/hr CONT PRN IV PER PROTOCOL Last administered on 02/01/17 10:03; Start 02/01/17 at 09:30 Sodium Chloride (Iv Sodium Chloride 0.9% 500ml Bag) 500 ml @ 500 mls/hr 1X PRN PRN IV SEE COMMENTS; Start 02/01/17 at 09:30 Atropine Sulfate 0.5 mg 0.5 mg PRN Q5MIN PRN IV SEE COMMENTS; Start 02/01/17 at 09:30 Sodium Chloride (Iv Sodium Chloride 0.9% 1000ml Bag) 1,000 ml @ 1,000 mls/hr 1X ONCE IV ; Start 02/01/17 at 09:30; Stop 02/01/17 at 10:29 Hydrocortisone Sodium Succinate (Solu-Cortef) 100 mg Q8HRS IV Last administered on 02/01/17 10:16; Start 02/01/17 at 09:[address] (Atrovent) 0.5 mg RTQID NEB ; Start 02/01/17 at 12:00 Active Scripts Active Reported Remicade (Infliximab) 100 Mg Vial 100 Mg IV Q8HRS Vitals/I & O Vital Sign - Last 24 Hours 01/31/17 01/31/17 01/31/17 01/31/17 10:47 11:00 11:42 19:16 Temp 100.6 100.6 Pulse 111 126 Resp 18 20 18 20 B/P 92/59 106/67 Pulse Ox 96 91 O2 Delivery Room Air Room Air Room Air Room Air 01/31/17 01/31/17 01/31/17 02/01/17 19:50 22:32 23:58 00:28 Temp 100.9 100.9 Pulse 116 Resp 20 24 22 B/P 103/67 Pulse Ox 95 O2 Delivery Room Air Room Air Room Air Room Air 02/01/17 02/01/17 02/01/17 02/01/17 02:49 07:14 07:26 08:37 Temp 100.4 100.2 100.4 100.2 Pulse 125 122 124 Resp 25 B/P 104/65 99/71 Pulse Ox 90 92 91 O2 Delivery Nasal Cannula Nasal Cannula Nasal Cannula O2 Flow Rate 3.0 3.0 02/01/17 09:49 Pulse Ox 95 O2 Delivery BiPAP/CPAP Intake and Output 01/31/17 01/31/17 02/01/17 15:00 23:00 07:00 Intake Total 3920 ml Output Total 300 ml 300 ml 350 ml Balance -300 ml -300 ml 3570 ml SILAS [place] MD Feb 01, 2017 10:23
[2017-02-01] MEDS: AA 4.25%/CALCIUM/LYTES/D5W 1,000 ML IV SCH ×2 (10:25→23:16)
[2017-02-01] MEDS: IPRATROPIUM BROMIDE 0.5 MG/2.5 ML NEBU. NEB SCH ×3 (11:22→19:46)
[2017-02-01] MEDS: BUDESONIDE 0.5 MG/2 ML NEBU. NEB SCH ×2 (11:23→19:46)
--- NOTE | 2017-02-01 11:51 | RAD ---
Indication assess nasogastric tube placement. A single view targeted to the lower chest and upper abdomen was obtained. A nasogastric tube is noted. The tip is in the proximal body of the stomach. A sidehole is either at or above the GE junction. The tube should be advanced. Drains are noted in the abdomen and pelvis. IMPRESSION: NG tube with its tip in the proximal body of the stomach. The tube should be advanced
--- NOTE | 2017-02-01 14:23 | PDOC ---
Infectious Disease Note Subjective Subjective Earlier this morning patient hypotensive, febrile 102.7, in acute respiratory failure and A-fib RVR. He was transferred to ICU. He is minimally responsive and on BiPAP. FiO2 40% BP improved after IVF. ROS ROS Unobtainable Vital Sign Vital Signs Vital Signs Date Time Temp Pulse Resp B/P Pulse Ox O2 Delivery O2 Flow Rate FiO2 02/01/17 13:03 99.9 102 32 100/66 96 BiPAP/CPAP 99.9 02/01/17 09:30 2.0 Physical Exam PHYSICAL EXAM GENERAL: Ill-appearing HEENT: squinting. on BiPAP LUNGS: Diminished aeration bases HEART: S1S2, tachycardic, irregular ABD: Distended, soft, grimaces, guards and moans to light palpation, drains x 2. (one no output. 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, not following commands SKIN: No rash IVs: ok Labs Lab Laboratory Tests Test 01/31/17 14:00 02/01/17 04:40 02/01/17 07:15 02/01/17 10:57 Erythrocyte Sedimentation Rate 109 (0-15) White Blood Count 14.3x10^3/uL (4.0-11.0) Red Blood Count 3.97x10^6/uL (4.30-5.70) Hemoglobin 13.5g/dL (13.0-17.5) Hematocrit 40.2% (39.0-53.0) Mean Corpuscular Volume 101fL (79-100) Mean Corpuscular Hemoglobin 34pg (25-35) Mean Corpuscular Hemoglobin Concent 34g/dL (31-37) Red Cell Distribution Width 14.7% (11.5-14.5) Platelet Count 152x10^3/uL (140-400) Neutrophils (%) (Auto) 78% (31-73) Lymphocytes (%) (Auto) 11% (24-48) Monocytes (%) (Auto) 11% (0-9) Eosinophils (%) (Auto) 0% (0-3) Basophils (%) (Auto) 0% (0-3) Neutrophils # (Auto) 11.2x10^3uL (1.8-7.7) Lymphocytes # (Auto) 1.5x10^3/uL (1.0-4.8) Monocytes # (Auto) 1.6x10^3/uL (0.0-1.1) Eosinophils # (Auto) 0.0x10^3/uL (0.0-0.7) Basophils # (Auto) 0.0x10^3/uL (0.0-0.2) Sodium Level 139mmol/L (136-145) Potassium Level 3.4mmol/L (3.5-5.1) Chloride Level 105mmol/L (98-107) Carbon Dioxide Level 27mmol/L (21-32) Anion Gap 7 (6-14) Blood Urea Nitrogen 19mg/dL (8-26) Creatinine 1.0mg/dL (0.7-1.3) Estimated GFR (Cockcroft-Gault) 73.7 Glucose Level 110mg/dL (70-99) Calcium Level 8.4mg/dL (8.5-10.1) Phosphorus Level 4.2mg/dL (2.6-4.7) Magnesium Level 1.8mg/dL (1.8-2.4) Albumin 1.6g/dL (3.4-5.0) O2 Saturation 92% (92-99) Arterial Blood pH 7.50 (7.35-7.45) Arterial Blood pH (Temp corrected) 7.48 Arterial Blood pCO2 at Patient Temp 30mmHg (35-46) Arterial Blood pCO2 (Temp correct) 32mmHg Arterial Blood pO2 at Patient Temp 59mmHg (65-108) Arterial Blood pO2 (Temp corrected) 65mmHg Arterial Blood HCO3 23mmol/L (21-28) Arterial Blood Base Excess 1mmol/L (-3-3) FiO2 32 Lactic Acid Level 1.0mmol/L (0.4-2.0) Indication difficulty breathing. A single view of the chest was obtained and is compared to an examination one day earlier. There has been some slight increase in volume loss at the lung bases relative to the previous exam. Findings likely reflect increasing pleural fluid and atelectasis. Underlying pneumonia is not entirely excluded. Heart and pulmonary vessels are similar. IMPRESSION: Increasing volume loss at the lung bases relative to yesterday's study Objective Assessment Sepsis with hypotension. Acute respiratory failure ? HAP Perforated colon. 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 Strep bovis, C. ramosum, bacteroides & H. parainfluenzae Acute encephalopathy Crohns disease on Remicade Recent pneumonia smoker A. fib Plan Plan of Care Change abx to vanc and meropenem. Repeat CT abd/pelvis BC pending Monitor labs supportive care D/w Dr. Hoffman D/w pt's girlfriend Ayah. His son from [place] arriving sometime next day or two. above orders per Dr. Paz Patient seen and examined. Chart reviewed. Case discussed with [employer]. Agree with above plan. Abdomen extremely tender CT done- reading pending Add Flagyl for B. fragilis and Clostridium Ramosum coverage Meropenem should cover the rest BRITTANY GAINES APRN Feb 01, 2017 14:23 CATHY PAZ MD Feb 01, 2017 17:06
[2017-02-01] MEDS ORDERED: VANCOMYCIN 1.75 GM in IV NORMAL SALINE 500ML BAG 500 ML IV ONE (15:00)
--- NOTE | 2017-02-01 17:02 | RAD ---
Indication septic shock. Status post surgery. Axial images through the abdomen and pelvis were obtained. 75 cc of Omnipaque 300 was administered intravenously. No oral contrast was administered. Note is made of a previous examination one week ago. Imaging through the lung bases demonstrates a small right pleural effusion and trace left. Volume loss at the lung bases may reflect atelectasis or pneumonia. Small amount of pneumoperitoneum is noted. Surgical drains are noted. There is a small amount of perihepatic fluid. The gallbladder appears grossly normal and the spleen appears unremarkable. No adrenal or renal anomalies are seen and the pancreas appears unremarkable. There is a small amount of pneumatosis seen associated with the ascending colon and a small amount of pneumatosis in the area of the hepatic flexure. Colostomy is noted. There is dilatation of fluid-filled loops of bowel. In a recently operated patient this probably reflects ileus. A component of mechanical obstruction cannot be entirely excluded. Nasogastric tube is noted in the stomach. Wagner catheter is additionally noted. Preliminary results were communicated to Gardenia, the ICU nurse caring for the patient, at the time of dictation IMPRESSION: A small amount of pneumatosis is suggested involving the ascending colon and proximal transverse colon. Fluid-filled loops of bowel in a recently postop patient probably reflects ileus. A component of mechanical obstruction is not entirely excluded Small right pleural effusion and trace left. Volume loss at the lung bases may reflect atelectasis or pneumonia.
[2017-02-01] MEDS: VANCOMYCIN PER PHARMACY MC PRN (17:04)
--- NOTE | 2017-02-01 17:12 | PDOC ---
PROGRESS NOTES Assessment Problems Medical Problems: (1) Perforated abdominal viscus Status: Acute Problems: Plan This patient is 71-year-old man with past medical history of Crohn's disease who is on Remicade for last 2 years presented to the hospital with complaint of abdominal pain, vomiting. Patient was found to have perforated small bowel. And was taken to the OR and was found to have perforation patient underwent laparoscopy. Patient had hypotension previously. Patient is being addressed for multiple medical problems, patient is also being followed by infectious disease being currently treated for peritonitis, on antibiotics. Patient had a CT scan of the brain which did not show any acute intracranial process. Metabolic encephalopathy with multiple medical problems. check for infectious, metabolic cause. Will hold off Lumbar puncture. Will check MRI brain to rule out any acute process pending Continue antibiotics per infectious disease History of Crohn's disease on Remicade Recent pneumonia. History of A. fib Supportive care PTOT Discussed with family at bedside in detail. Continue medical management. Objective Vital Signs Date Time Temp Pulse Resp B/P Pulse Ox O2 Delivery O2 Flow Rate FiO2 02/01/17 16:34 95 BiPAP/CPAP 02/01/17 14:00 103 30 114/67 02/01/17 13:03 99.9 99.9 02/01/17 09:30 2.0 Intake and Output 02/01/17 07:00 Intake Total 3920 ml Output Total 950 ml Balance 2970 ml Intake Oral 0 ml IV Total 1960 ml Other 1960 ml Output Urine Total 900 ml Drainage Total 50 ml PHYSICAL EXAM NEUROLOGICAL EXAMINATION: opens eye to pain stimuli PERRL. CN: no focal findings. Muscle tone: within normal. Muscle strength: withdraw to pain stimuli DTR: 1 Plantar reflex: Flexor response bilaterally Gait: not able Sensory exam: withdraw to pain stimuli Review of Relevant I have reviewed the following items manuel (where applicable) has been applied. Labs Laboratory Tests Test 01/31/17 04:40 01/31/17 11:13 01/31/17 14:00 02/01/17 04:40 White Blood Count 11.1x10^3/uL (4.0-11.0) 14.3x10^3/uL (4.0-11.0) Red Blood Count 4.29x10^6/uL (4.30-5.70) 3.97x10^6/uL (4.30-5.70) Hemoglobin 14.7g/dL (13.0-17.5) 13.5g/dL (13.0-17.5) Hematocrit 43.5% (39.0-53.0) 40.2% (39.0-53.0) Mean Corpuscular Volume 101fL (79-100) 101fL (79-100) Mean Corpuscular Hemoglobin 34pg (25-35) 34pg (25-35) Mean Corpuscular Hemoglobin Concent 34g/dL (31-37) 34g/dL (31-37) Red Cell Distribution Width 14.7% (11.5-14.5) 14.7% (11.5-14.5) Platelet Count 121x10^3/uL (140-400) 152x10^3/uL (140-400) Neutrophils (%) (Auto) 79% (31-73) 78% (31-73) Lymphocytes (%) (Auto) 10% (24-48) 11% (24-48) Monocytes (%) (Auto) 11% (0-9) 11% (0-9) Eosinophils (%) (Auto) 0% (0-3) 0% (0-3) Basophils (%) (Auto) 0% (0-3) 0% (0-3) Neutrophils # (Auto) 8.7x10^3uL (1.8-7.7) 11.2x10^3uL (1.8-7.7) Lymphocytes # (Auto) 1.2x10^3/uL (1.0-4.8) 1.5x10^3/uL (1.0-4.8) Monocytes # (Auto) 1.2x10^3/uL (0.0-1.1) 1.6x10^3/uL (0.0-1.1) Eosinophils # (Auto) 0.0x10^3/uL (0.0-0.7) 0.0x10^3/uL (0.0-0.7) Basophils # (Auto) 0.0x10^3/uL (0.0-0.2) 0.0x10^3/uL (0.0-0.2) Sodium Level 142mmol/L (136-145) 139mmol/L (136-145) Potassium Level 3.4mmol/L (3.5-5.1) 3.4mmol/L (3.5-5.1) Chloride Level 104mmol/L (98-107) 105mmol/L (98-107) Carbon Dioxide Level 29mmol/L (21-32) 27mmol/L (21-32) Anion Gap 9 (6-14) 7 (6-14) Blood Urea Nitrogen 21mg/dL (8-26) 19mg/dL (8-26) Creatinine 1.1mg/dL (0.7-1.3) 1.0mg/dL (0.7-1.3) Estimated GFR (Cockcroft-Gault) 66.0 73.7 Glucose Level 103mg/dL (70-99) 110mg/dL (70-99) Calcium Level 8.8mg/dL (8.5-10.1) 8.4mg/dL (8.5-10.1) Phosphorus Level 3.6mg/dL (2.6-4.7) 4.2mg/dL (2.6-4.7) Magnesium Level 1.8mg/dL (1.8-2.4) 1.8mg/dL (1.8-2.4) Albumin 1.8g/dL (3.4-5.0) 1.6g/dL (3.4-5.0) Urine Collection Type Unknown Urine Color Yellow Urine Clarity Clear Urine pH 5.5 Urine Specific [place] 1.025 Urine Protein 30mg/dL (NEG-TRACE) Urine Glucose (UA) Negativemg/dL (NEG) Urine Ketones (Stick) Tracemg/dL (NEG) Urine Blood Negative (NEG) Urine Nitrite Negative (NEG) Urine Bilirubin Negative (NEG) Urine Urobilinogen Dipstick 0.2mg/dL (0.2 mg/dL) Urine Leukocyte Esterase Negative (NEG) Urine RBC Rare/HPF (0-2) Urine WBC Occ/HPF (0-4) Urine Squamous Epithelial Cells Few/LPF Urine Bacteria Few/HPF (0-FEW) Erythrocyte Sedimentation Rate 109 (0-15) Test 02/01/17 07:15 02/01/17 10:57 O2 Saturation 92% (92-99) Arterial Blood pH 7.50 (7.35-7.45) Arterial Blood pH (Temp corrected) 7.48 Arterial Blood pCO2 at Patient Temp 30mmHg (35-46) Arterial Blood pCO2 (Temp correct) 32mmHg Arterial Blood pO2 at Patient Temp 59mmHg (65-108) Arterial Blood pO2 (Temp corrected) 65mmHg Arterial Blood HCO3 23mmol/L (21-28) Arterial Blood Base Excess 1mmol/L (-3-3) FiO2 32 Lactic Acid Level 1.0mmol/L (0.4-2.0) Laboratory Tests Test 02/01/17 04:40 02/01/17 07:15 02/01/17 10:57 White Blood Count 14.3x10^3/uL (4.0-11.0) Red Blood Count 3.97x10^6/uL (4.30-5.70) Hemoglobin 13.5g/dL (13.0-17.5) Hematocrit 40.2% (39.0-53.0) Mean Corpuscular Volume 101fL (79-100) Mean Corpuscular Hemoglobin 34pg (25-35) Mean Corpuscular Hemoglobin Concent 34g/dL (31-37) Red Cell Distribution Width 14.7% (11.5-14.5) Platelet Count 152x10^3/uL (140-400) Neutrophils (%) (Auto) 78% (31-73) Lymphocytes (%) (Auto) 11% (24-48) Monocytes (%) (Auto) 11% (0-9) Eosinophils (%) (Auto) 0% (0-3) Basophils (%) (Auto) 0% (0-3) Neutrophils # (Auto) 11.2x10^3uL (1.8-7.7) Lymphocytes # (Auto) 1.5x10^3/uL (1.0-4.8) Monocytes # (Auto) 1.6x10^3/uL (0.0-1.1) Eosinophils # (Auto) 0.0x10^3/uL (0.0-0.7) Basophils # (Auto) 0.0x10^3/uL (0.0-0.2) Sodium Level 139mmol/L (136-145) Potassium Level 3.4mmol/L (3.5-5.1) Chloride Level 105mmol/L (98-107) Carbon Dioxide Level 27mmol/L (21-32) Anion Gap 7 (6-14) Blood Urea Nitrogen 19mg/dL (8-26) Creatinine 1.0mg/dL (0.7-1.3) Estimated GFR (Cockcroft-Gault) 73.7 Glucose Level 110mg/dL (70-99) Calcium Level 8.4mg/dL (8.5-10.1) Phosphorus Level 4.2mg/dL (2.6-4.7) Magnesium Level 1.8mg/dL (1.8-2.4) Albumin 1.6g/dL (3.4-5.0) O2 Saturation 92% (92-99) Arterial Blood pH 7.50 (7.35-7.45) Arterial Blood pH (Temp corrected) 7.48 Arterial Blood pCO2 at Patient Temp 30mmHg (35-46) Arterial Blood pCO2 (Temp correct) 32mmHg Arterial Blood pO2 at Patient Temp 59mmHg (65-108) Arterial Blood pO2 (Temp corrected) 65mmHg Arterial Blood HCO3 23mmol/L (21-28) Arterial Blood Base Excess 1mmol/L (-3-3) FiO2 32 Lactic Acid Level 1.0mmol/L (0.4-2.0) Microbiology 01/26/17 Gram Stain - Final, Complete Medications Current Medications Sodium Chloride (Iv Sodium Chloride 0.9% 1000ml Bag) 1,000 ml @ 100 mls/hr Q10H IV Last administered on 01/25/17 22:11; Start 01/25/17 at 22:30; Stop at 08:29; Status DC Ondansetron HCl (Zofran) 4 mg 1X ONCE IV Last administered on 01/25/17 22:12 ; Start 01/25/17 at 22:30; Stop 01/25/17 at 22:31; Status DC Fentanyl Citrate (Fentanyl 2ml Vial) 75 mcg PRN Q15MIN PRN IV PAIN GREATER THAN 3/10 Last administered on 01/26/17 00:50; Start 01/25/17 at 22:00; Stop at 21:59; Status DC Fentanyl Citrate (Fentanyl 2ml Vial) 100 mcg 1X ONCE IV Last administered on 22:12; Start 01/25/17 at 22:30; Stop 01/25/17 at 22:31; Status DC Iohexol (Omnipaque 300 Mg/ml) 75 ml 1X ONCE IV Last administered on 01/25/17 23:55; Start 01/26/17 at 00:00; Stop 01/26/17 at 00:01; Status DC Info 1 each 1 each PRN DAILY PRN MC SEE COMMENTS; Start 01/25/17 at 23:45; Stop 01/27/17 at 23:44; Status DC Piperacillin Sod/ Tazobactam Sod 3.375 gm/Sodium Chloride 50 ml @ 100 mls/hr 1X ONCE IV Last administered on 01/26/17 00:56; Start 01/26/17 at 01:00; Stop 01/26/17 at 01:29; Status DC Sodium Chloride (Iv Sodium Chloride 0.9% 1000ml Bag) 1,000 ml @ 100 mls/hr 1X ONCE IV Last administered on 01/26/17 00:53; Start 01/26/17 at 01:00; Stop at 10:59; Status DC Hydromorphone HCl (Dilaudid) 1 mg 1X ONCE IV Last administered on 01/26/17 01 :33; Start 01/26/17 at 01:30; Stop 01/26/17 at 01:34; Status DC Hydromorphone HCl 1 mg 1 mg 1X ONCE IV ; Start 01/26/17 at 02:00; Stop at 02:01; Status DC Piperacillin Sod/ Tazobactam Sod/ Sodium Chloride (Zosyn/Iv Sodium Chloride 0.9 % 50ml) 50 ml @ 100 mls/hr 1X ONCE IV Last administered on 01/26/17 02:43; Start 01/26/17 at 02:00; Stop 01/26/17 at 02:29; Status DC Dexamethasone Sodium Phosphate (Decadron) 20 mg STK-MED ONCE .ROUTE ; Start at 02:00; Stop 01/26/17 at 02:01; Status DC Ondansetron HCl 4 mg 4 mg STK-MED ONCE .ROUTE ; Start 01/26/17 at 02:00; Stop at 02:01; Status DC Propofol (Diprivan) 20 ml @ As Directed STK-MED ONCE IV ; Start 01/26/17 at 02: 00; Stop 01/26/17 at 02:01; Status DC Lidocaine HCl 100 mg STK-MED ONCE .ROUTE ; Start 01/26/17 at 02:00; Stop at 02:01; Status DC Fentanyl Citrate (Fentanyl 2ml Vial) 100 mcg STK-MED ONCE .ROUTE ; Start at 02:00; Stop 01/26/17 at 02:01; Status DC Succinylcholine Chloride (Anectine) 200 mg STK-MED ONCE .ROUTE ; Start 01/26/17 at 02:00; Stop 01/26/17 at 02:01; Status DC Rocuronium [place] (Zemuron) 50 mg STK-MED ONCE .ROUTE ; Start 01/26/17 at 02:00 ; Stop 01/26/17 at 02:01; Status DC Ondansetron HCl (Zofran) 4 mg PRN Q6HRS PRN IV Nausea; Start 01/26/17 at 02:15 ; Stop 01/27/17 at 02:14; Status DC Fentanyl Citrate (Fentanyl 2ml Vial) 25 mcg PRN Q5MIN PRN IV MILD PAIN; Start 01/26/17 at 02:15; Stop 01/27/17 at 02:14; Status DC Fentanyl Citrate (Fentanyl 2ml Vial) 50 mcg PRN Q5MIN PRN IV MODERATE PAIN; Start 01/26/17 at 02:15; Stop 01/27/17 at 02:14; Status DC Morphine Sulfate 1 mg 1 mg PRN Q10MIN PRN IV SEVERE PAIN; Start 01/26/17 at 02: 15; Stop 01/27/17 at 02:14; Status DC Lactated Ringer's (Iv Lactated Ringers) 1,000 ml @ 30 mls/hr Q24H IV ; Start at 02:09; Stop 01/26/17 at 14:08; Status DC Lidocaine HCl 2 ml 1X PRN PRN ID IV START; Start 01/26/17 at 02:15; Stop at 02:14; Status DC Hydromorphone HCl (Dilaudid) 0.5 mg PRN Q10MIN PRN IV SEV PAIN,Second choice Last administered on 01/26/17t 06:29; Start 01/26/17 at 02:15; Stop 01/27/17 at 02:14; Status DC Prochlorperazine Edisylate 5 mg 5 mg PACU PRN PRN IV NAUSEA; Start 01/26/17 at 02:15; Stop 01/27/17 at 02:14; Status DC Bacitracin/Sodium Chloride (Iv Sodium Chloride 0.9% 500ml Bag) 500 ml @ 500 mls /hr 1X PERIOP ONCE IRR ; Start 01/26/17 at 03:00; Stop 01/26/17 at 03:59; Status DC Hydrocortisone Sodium Succinate (Solu-Cortef) 100 mg STK-MED ONCE .ROUTE ; Start 01/26/17 at 02:24; Stop 01/26/17 at 02:25; Status DC Sevoflurane (Ultane) 90 ml STK-MED ONCE IH ; Start 01/26/17 at 03:16; Stop 01/26 at 03:17; Status DC Phenylephrine HCl 1 mg STK-MED ONCE IV ; Start 01/26/17 at 03:17; Stop 01/26/17 at 03:18; Status DC Phenylephrine HCl (Bhargav-Synephrine Inj) 10 mg STK-MED ONCE .ROUTE ; Start at 03:32; Stop 01/26/17 at 03:33; Status DC Rocuronium [place] (Zemuron) 50 mg STK-MED ONCE .ROUTE ; Start 01/26/17 at 03:36 ; Stop 01/26/17 at 03:37; Status DC Cellulose 1 each STK-MED ONCE .ROUTE Last administered on 01/26/17t 02:47; Start 01/26/17 at 03:38; Stop 01/26/17 at 03:39; Status DC Glycopyrrolate (Robinul) 1 mg STK-MED ONCE .ROUTE ; Start 01/26/17 at 04:23; Stop 01/26/17 at 04:24; Status DC Neostigmine Methylsulfate 5 mg STK-MED ONCE .ROUTE ; Start 01/26/17 at 04:23; Stop 01/26/17 at 04:24; Status DC Sevoflurane (Ultane) 90 ml STK-MED ONCE IH ; Start 01/26/17 at 04:23; Stop 01/26 at 04:24; Status DC Esmolol HCl (Brevibloc) 100 mg STK-MED ONCE IV ; Start 01/26/17 at 04:28; Stop 01/26/17 at 04:29; Status DC Fentanyl Citrate 100 mcg 100 mcg STK-MED ONCE .ROUTE ; Start 01/26/17 at 05:09; Stop 01/26/17 at 05:10; Status DC Metronidazole (FLAGYL 500Mmg PREMIX) 100 ml @ 100 mls/hr Q12HR IV ; Start 01/26 at 09:00; Stop 01/26/17 at 09:00; Status DC Diphenhydramine HCl (Benadryl) 25 mg PRN Q6HRS PRN IV ITCHING Last administered on 01/31/17 11:44; Start 01/26/17 at 05:45 Famotidine (Pepcid) 20 mg BID IVP Last administered on 01/26/17 21:22; Start 01/26/17 at 09:00; Stop 01/27/17 at 08:10; Status DC Enoxaparin Sodium (Lovenox 40mg Syringe) 40 mg Q24H SQ Last administered on 08:48; Start 01/26/17 at 09:00; Stop 01/27/17 at 15:59; Status DC Sodium Chloride 3 ml 3 ml QSHIFT PRN IV AFTER MEDS AND BLOOD DRAWS; Start 01/26 at 05:45 Potassium Chloride/Sodium Chloride 1,000 ml @ 100 mls/hr Q10H IV Last administered on 01/26/17 21:24; Start 01/26/17 at 06:00; Stop 01/27/17 at 13:26 ; Status DC Hydromorphone HCl (Dilaudid Standard [employer]) 30 ml @ 0 mls/hr CONT PRN PRN IV PROTOCOL Last administered on 01/28/17 01:36; Start 01/26/17 at 05:45; Stop at 08:37; Status DC Hydromorphone HCl (Dilaudid) 1 mg PRN Q1HR PRN IV MODERATE PAIN Last administered on 01/31/17 23:58; Start 01/26/17 at 05:45 Ondansetron HCl (Zofran) 4 mg PRN Q6HRS PRN IV NAUESA, 1ST CHOICE Last administered on 01/30/17 14:08; Start 01/26/17 at 05:45 Throat Lozenges (Chloraseptic) 1 spray PRN Q2HR PRN PO SORE THROAT; Start 01/26 at 05:45 Throat Lozenges (Cepacol Sore Throat Lozenge) 1 west PRN Q2HRS PRN PO SORE THROAT; Start 01/26/17 at 05:45 Nicotine 1 patch 1 patch DAILY TD Last administered on 02/01/17 10:16; Start 01/26/17 at 09:00 Piperacillin Sod/ Tazobactam Sod/ Sodium Chloride (Zosyn/Iv Sodium Chloride 0.9 % 50ml) 50 ml @ 100 mls/hr Q6HRS IV Last administered on 02/01/17 12:48; Start 01/26/17 at 08:00; Stop 02/01/17 at 14:07; Status DC Vancomycin HCl 1 each 1 each PRN DAILY PRN MC SEE COMMENTS Last administered on 01/29/17 08:16; Start 01/26/17 at 07:45; Stop 01/30/17 at 09:19; Status DC Vancomycin HCl 2 gm/Sodium Chloride 500 ml @ 250 mls/hr 1X ONCE IV Last administered on 01/26/17 09:02; Start 01/26/17 at 08:00; Stop 01/26/17 at 09:59 ; Status DC Vancomycin HCl/ Sodium Chloride (Iv Sodium Chloride 0.9% 250ml) 250 ml @ 167 mls/hr Q12H IV Last administered on 01/26/17 21:22; Start 01/26/17 at 21:00; Stop 01/27/17 at 09:36; Status DC Vancomycin HCl 1 each 1X ONCE MC Last administered on 01/27/17 08:30; Start 01/27/17 at 08:30; Stop 01/27/17 at 08:31; Status DC Famotidine 20 mg 20 mg QHS IVP Last administered on 01/31/17 20:40; Start at 21:00 Vancomycin HCl/ Sodium Chloride (Iv Sodium Chloride 0.9% 250ml) 250 ml @ 167 mls/hr Q24H IV Last administered on 01/28/17 21:49; Start 01/27/17 at 22:00; Stop 01/28/17 at 23:00; Status DC Vancomycin HCl 1 each 1 each 1X ONCE MC Last administered on 01/28/17 21:30; Start 01/28/17 at 21:30; Stop 01/28/17 at 21:31; Status DC Diltiazem HCl 125 mg/Dextrose 125 ml @ 0 mls/hr CONT PRN IV SEE I/O RECORD Last administered on 01/27/17 23:12; Start 01/27/17 at 11:45; Stop 01/29/17 at 08:37; Status DC Sodium Chloride (Iv Sodium Chloride 0.45%) 1,000 ml @ 100 mls/hr 1X ONCE IV Last administered on 01/27/17 13:30; Start 01/27/17 at 13:30; Stop 01/27/17 at 23:29; Status DC Enoxaparin Sodium (Lovenox Per Pharmacy Treatment Dosing) 1 each PRN DAILY PRN MC SEE COMMENTS; Start 01/27/17 at 16:00; Stop 01/28/17 at 12:15; Status DC Enoxaparin Sodium 75 mg 75 mg Q12HR SQ Last administered on 01/28/17 09:07; Start 01/27/17 at 18:00; Stop 01/28/17 at 12:15; Status DC Magnesium Sulfate/ Dextrose 50 ml @ 25 mls/hr PRN DAILY PRN IV for Mag < 1.7 on am labs; Start 01/27/17 at 17:45; Stop 01/30/17 at 10:08; Status DC Sodium Chloride (Iv Sodium Chloride 0.9% 500ml Bag) 500 ml @ 0 mls/hr QID PRN IV For MAP < 65; Start 01/27/17 at 17:45; Stop 01/30/17 at 10:08; Status DC Info (Anti-Coagulation Monitoring By Pharmacy) 1 each PRN DAILY PRN MC SEE COMMENTS Last administered on 01/28/17 07:45; Start 01/28/17 at 07:45; Stop at 14:34; Status DC Enoxaparin Sodium 40 mg 40 mg Q24H SQ Last administered on 02/01/17 09:55; Start 01/29/17 at 09:00 Vancomycin HCl/ Sodium Chloride (Iv Sodium Chloride 0.9% 250ml) 250 ml @ 167 mls/hr Q12H IV Last administered on 01/29/17 21:45; Start 01/29/17 at 10:00; Stop 01/30/17 at 09:19; Status DC Vancomycin HCl 1 each 1X ONCE MC ; Start 01/30/17 at 09:30; Stop 01/30/17 at 09 :31; Status Cancel Oxycodone/ Acetaminophen (Percocet 10/325) 1 tab PRN Q4HRS PRN PO pain Last administered on 01/31/17 09:47; Start 01/29/17 at 08:45 Oxycodone/ Acetaminophen 1 tab 1 tab PRN Q4HRS PRN PO PAIN Last administered on 01/31/17 05:49; Start 01/29/17 at 08:45 Sodium Chloride (Iv Sodium Chloride 0.9% 1000ml Bag) 1,000 ml @ 75 mls/hr 1X ONCE IV Last administered on 01/30/17 09:25; Start 01/30/17 at 09:00; Stop at 22:19; Status DC Digoxin 250 mcg 250 mcg 1X ONCE IV Last administered on 01/30/17 09:25; Start 01/30/17 at 09:00; Stop 01/30/17 at 09:01; Status DC Amino Acids/ Electrolytes (Clinimix E 2.75%-5% Solution) 2,000 ml @ 80 mls/hr Q24H IV Last administered on 01/30/17 16:49; Start 01/30/17 at 15:00; Stop at 17:22; Status DC Haloperidol Lactate (Haldol) 5 mg PRN Q4HRS PRN IVP AGITATION Last administered on 01/31/17 05:12; Start 01/31/17 at 05:00 Digoxin 125 mcg 125 mcg DAILY IV Last administered on 02/01/17 07:26; Start at 10:00 Potassium Chloride 50 ml @ 50 mls/hr 1X ONCE IV ; Start 01/31/17 at 09:30; Stop 01/31/17 at 10:29; Status UNV Potassium Chloride (KCl Premix 10meq) 100 ml @ 100 mls/hr Q1H IV Last administered on 01/31/17 12:33; Start 01/31/17 at 09:45; Stop 01/31/17 at 11:44 ; Status DC Lorazepam 2 mg 2 mg PRN Q4HRS PRN IV ANXIETY / AGITATION Last administered on 09:30; Start 01/31/17 at 13:30 Multivitamins/ Folic Acid/ Thiamine HCl/ Dextrose/Sodium Chloride (Infuvite Adult/ Iv D5% - 1/2 NS) 1,011.2 ml @ 100 mls/ hr DAILY IV Last administered on 02/01/17 10:03; Start 01/31/17 at 15:30 Chlordiazepoxide 25 mg 25 mg PRN Q6HRS PRN PO ANXIETY / AGITATION Last administered on 01/31/17 14:27; Start 01/31/17 at 13:45 Amino Acids/ Electrolytes (Clinimix E 2.75%-5% Solution) 1,000 ml @ 80 mls/hr [id number] IV Last administered on 01/31/17 18:39; Start 01/31/17 at 17:22; Stop 02/01/17 at 07:53; Status DC Albuterol/ Ipratropium 3 ml 3 ml RTQID NEB ; Start 02/01/17 at 08:00; Stop 02/01 at 09:37; Status DC Amino Acids/ Electrolytes/ Dextrose 1,000 ml @ 80 mls/hr [id number] IV Last administered on 02/01/17 10:25; Start 02/01/17 at 08:00 Sodium Chloride (Iv Sodium Chloride 0.9% 1000ml Bag) 1,000 ml @ 1,000 mls/hr 1X ONCE IV Last administered on 02/01/17 10:04; Start 02/01/17 at 09:30; Stop 02/01/17 at 10:29; Status DC Budesonide 0.5 mg 0.5 mg RTBID NEB Last administered on 02/01/17 11:23; Start 02/01/17 at 09:30 Dexmedetomidine HCl 200 mcg/ Sodium Chloride 50 ml @ 0 mls/hr CONT PRN IV PER PROTOCOL Last administered on 02/01/17 10:03; Start 02/01/17 at 09:30 Sodium Chloride (Iv Sodium Chloride 0.9% 500ml Bag) 500 ml @ 500 mls/hr 1X PRN PRN IV SEE COMMENTS; Start 02/01/17 at 09:30 Atropine Sulfate 0.5 mg 0.5 mg PRN Q5MIN PRN IV SEE COMMENTS; Start 02/01/17 at 09:30 Sodium Chloride (Iv Sodium Chloride 0.9% 1000ml Bag) 1,000 ml @ 1,000 mls/hr 1X ONCE IV Last administered on 02/01/17 10:24; Start 02/01/17 at 09:30; Stop 02/01/17 at 10:29; Status DC Hydrocortisone Sodium Succinate (Solu-Cortef) 100 mg Q8HRS IV Last administered on 02/01/17 10:16; Start 02/01/17 at 09:45 Ipratropium [place] (Atrovent) 0.5 mg RTQID NEB Last administered on 02/01/17 16:33; Start 02/01/17 at 12:00 Vancomycin HCl 1 each 1 each PRN DAILY PRN MC SEE COMMENTS Last administered on 02/01/17 17:04; Start 02/01/17 at 13:15 Meropenem 1 gm/ Sodium Chloride 100 ml @ 200 mls/hr Q8HRS IV ; Start 02/01/17 at 14:00 Vancomycin HCl 1.75 gm/Sodium Chloride 500 ml @ 250 mls/hr 1X ONCE IV ; Start 02/01/17 at 15:00; Stop 02/01/17 at 16:59; Status DC Vancomycin HCl/ Sodium Chloride (Iv Sodium Chloride 0.9% 250ml) 250 ml @ 167 mls/hr Q12H IV ; Start 02/02/17 at 05:00 Vancomycin HCl 1 each 1X ONCE MC ; Start 02/03/17 at 04:30; Stop 02/03/17 at 04 :31 Active Scripts Active Reported Remicade (Infliximab) 100 Mg Vial 100 Mg IV Q8HRS Vitals/I & O Vital Sign - Last 24 Hours 01/31/17 01/31/17 01/31/17 01/31/17 19:16 19:50 22:32 23:58 Temp 100.6 100.9 100.6 100.9 Pulse 126 116 Resp 20 20 24 B/P 106/67 103/67 Pulse Ox 91 95 O2 Delivery Room Air Room Air Room Air Room Air 02/01/17 02/01/17 02/01/17 02/01/17 00:28 02:49 07:14 07:26 Temp 100.4 100.2 100.4 100.2 Pulse 125 122 124 Resp 22 25 B/P 104/65 99/71 Pulse Ox 90 92 O2 Delivery Room Air Nasal Cannula Nasal Cannula O2 Flow Rate 3.0 02/01/17 02/01/17 02/01/17 02/01/17 08:00 08:37 09:30 09:49 Pulse Ox 91 95 O2 Delivery Nasal Cannula Nasal Cannula Nasal Cannula BiPAP/CPAP O2 Flow Rate 4.0 3.0 2.0 02/01/17 02/01/17 02/01/17 02/01/17 10:40 11:03 11:23 12:10 Temp 98.4 98.4 98.4 98.4 Pulse 95 97 96 Resp 34 34 38 B/P 94/61 96/66 95/69 Pulse Ox 96 95 95 96 O2 Delivery BiPAP/CPAP BiPAP/CPAP BiPAP/CPAP BiPAP/CPAP 02/01/17 02/01/17 02/01/17 13:03 14:00 16:34 Temp 99.9 99.9 Pulse 102 103 Resp 32 30 B/P 100/66 114/67 Pulse Ox 96 98 95 O2 Delivery BiPAP/CPAP BiPAP/CPAP BiPAP/CPAP Intake and Output 01/31/17 01/31/17 02/01/17 15:00 23:00 07:00 Intake Total 3920 ml Output Total 300 ml 300 ml 350 ml Balance -300 ml -300 ml 3570 ml KEVIN MARTINEZ MD Feb 01, 2017 17:12
[2017-02-01] MEDS: MEROPENEM 1 GM in IV NORMAL SALINE 100ML 100 ML IV SCH ×2 (17:14→23:16)
--- NOTE | 2017-02-01 19:16 | CONS ---
DATE OF CONSULTATION: 02/01/2017 I was asked to see this 71-year-old gentleman emergency for acute respiratory failure. HISTORY OF PRESENT ILLNESS: The patient is agitated, not able to give me any information. He is tachypneic. All of the information was obtained from chart and nursing staff. He was admitted with abdominal pain and was found to have perforated viscous, underwent colectomy and colostomy. He has history of Crohn's. He had fever, tachycardia and tachypnea. His maximum temperature was 100.4. Infectious Disease is on the case. The patient is on vancomycin and Zosyn for peritonitis and sepsis. His blood cell culture has positive for strepts. He has had encephalopathy test yesterday. His CT of the head did not show any acute abnormality. The patient lifelong is a smoker and heavy alcohol user. PAST MEDICAL HISTORY: History of AFib, Crohn disease, status post colectomy and colostomy as mentioned as above. ALLERGIES: No known drug allergies. MEDICATIONS: Currently he is on banana bag, Librium, lorazepam, digoxin, Lovenox 40 mg subq daily, Pepcid, nicotine patch and Zosyn. SOCIAL HISTORY: Positive for smoking and alcohol abuse. FAMILY HISTORY: Positive for hypertension per chart. REVIEW OF SYSTEMS: As mentioned as above, the patient is not able to give me any information. The case was discussed with RN. Other systems otherwise negative. PHYSICAL EXAMINATION: VITAL SIGNS: He appears tachypneic. His respiratory rate is 28, heart rate 124, blood pressure 99/60, O2 saturation on 4 liters of oxygen is 92%, temperature 102.7. HEENT: Normocephalic, atraumatic. Pupils are equal and round, reactive to light. Nose is clear. Throat is clear. NECK: There is no JVD, lymphadenopathy or thyromegaly. CARDIOVASCULAR: Tachycardic. CHEST: He appears tachypneic. LUNGS: There are bibasilar crackles and expiratory wheezing. ABDOMEN: Distended. Diminished bowel sounds, is colostomy is place. EXTREMITIES: There is no edema. LYMPHATICS: There is no lymphadenopathy. NEUROLOGIC: He does not follow commands. He is agitated. SKIN: Chronic changes. LABORATORY DATA: I reviewed the following lab data: Chest x-ray shows lower lobe infiltrates/atelectasis/effusion. WBC 14.3, hemoglobin 13.5, platelets 152. Sodium 139, potassium 3.4, chloride 105, CO2 of 27, glucose 110, BUN 19, creatinine 1. ABG this morning on 32% FiO2, pH 7.48, pCO2 of 32, pO2 of 65. His MRSA screen is negative. IMPRESSION: 1. Acute hypoxemic respiratory failure, multifactorial in etiology. 2. Septic shock secondary to peritonitis and pneumonia. 3. Abnormal chest x-ray. 4. Pulmonary infiltrate. 5. Hypokalemia. 6. Status post colon rupture and colostomy. 7. Encephalopathy, metabolic secondary to sepsis. 8. Alcohol withdrawal. 9. Smoker, probable chronic obstructive pulmonary disease. 10. Crohn disease. 11. History of atrial fibrillation. PLAN: 1. Transfer to ICU now. 2. Titrate FiO2 to keep O2 saturation 92%. 3. I will start him on BiPAP 12/8, rate of 8, monitor respiratory status very closely. He may require intubation. 4. IV fluids, normal saline bolus 2 liters. 5. Continue Lovenox for DVT prophylaxis. 6. Pepcid for stress ulcer prophylaxis. 7. Continue antibiotic. ID is on the case. 8. Add Solu-Cortef. 9. Add inhaled corticosteroid. 10. Changes bronchodilator to Atrovent only. He has atrial fibrillation with rapid ventricular response. 11. I will start Precedex, the patient was agitated and possibly is in alcohol withdrawal. 12. I will discuss the findings and recommendations with RN and RT. 13. I will do a lower extremity venous Doppler. He may require a CT of this. Chest PE protocol, when he is more stable. 14. place NG tube, to low intermittent suction. Thank you very much for allowing me to participate in care of this very nice gentleman. The patient is critically ill. This is critical care time 35 minutes without the overlap. ÁNGEL SILVESTRE M.D. : Nesha JOB#: [id number] / [id number] TOMAS
[2017-02-01] MEDS ORDERED: NOREPINEPHRINE VIAL 8 MG in IV NORMAL SALINE 250ML 250 ML IV PRN (23:15)
[2017-02-01] MEDS: FAMOTIDINE 20 MG/2 ML VIAL IVP SCH (23:16)
[2017-02-02] VITALS (24 sets, daily range): BP systolic 78–123; BP diastolic 56–80
[2017-02-02 05:02] LABS: BASO % 0 % (0-3); EOS % 0 % (0-3); HEMATOCRIT 39.9 % (39.0-53.0); HEMOGLOBIN 13.1 g/dL (13.0-17.5); LYMPH % 9 % (24-48); MEAN CORPUSCULAR HEMOGLOBIN 34 pg (25-35); MEAN CORPUSCULAR HGB CONC 33 g/dL (31-37); MEAN CORPUSCULAR VOLUME 104 fL (79-100); MONO % 9 % (0-9); NEUT % 82 % (31-73); PLATELET COUNT 211 x10^3/uL (140-400); RED BLOOD COUNT 3.84 x10^6/uL (4.30-5.70); RED CELL DISTRIBUTION WIDTH 14.8 % (11.5-14.5); WHITE BLOOD COUNT 11.9 x10^3/uL (4.0-11.0)
[2017-02-02 05:19] LABS: ALBUMIN 1.5 g/dL (3.4-5.0); CALCIUM 8.4 mg/dL (8.5-10.1); CREATININE 0.9 mg/dL (0.7-1.3); GFR 83.2; PHOSPHORUS 2.8 mg/dL (2.6-4.7); POTASSIUM 3.6 mmol/L (3.5-5.1)
[2017-02-02] MEDS: VANCOMYCIN 1.25 GM in IV NORMAL SALINE 250ML 250 ML IV SCH ×2 (05:27→16:41)
[2017-02-02] MEDS: HYDROCORTISONE SOD SUCC/PF 100 MG/2 ML VIAL. IV SCH ×3 (05:27→21:24)
[2017-02-02] MEDS: MEROPENEM 1 GM in IV NORMAL SALINE 100ML 100 ML IV SCH ×3 (05:27→21:24)
--- NOTE | 2017-02-02 07:51 | RAD ---
Bilateral lower extremity venous ultrasound, 02/01/2017: History: Shortness of breath, respiratory failure Duplex evaluation of the major veins in both lower extremities was performed including grayscale, color-flow and spectral Doppler analysis. The femoral and popliteal veins are widely patent. Somewhat sluggish blood flow was evident in those veins. The visualized calf veins show no evidence of DVT. IMPRESSION: No sonographic evidence of deep vein thrombosis in either lower extremity.
[2017-02-02] MEDS: BUDESONIDE 0.5 MG/2 ML NEBU. NEB SCH ×2 (08:00→20:38)
[2017-02-02] MEDS: IPRATROPIUM BROMIDE 0.5 MG/2.5 ML NEBU. NEB SCH ×4 (08:00→20:38)
--- NOTE | 2017-02-02 08:05 | PDOC ---
Infectious Disease Note Subjective Subjective pt feeling better, back to his baseline ROS ROS GEN: Denies fevers, chills, sweats HEENT: Denies blurred vision, sore throat CV: Denies chest pain RESP: Denies shortness of air, cough GI: Denies n/v/d NEURO: Denies confusion, dizziness MSK: Denies weakness, joint pain/swelling Vital Sign Vital Signs Vital Signs Date Time Temp Pulse Resp B/P Pulse Ox O2 Delivery O2 Flow Rate FiO2 02/02/17 06:00 62 20 115/78 96 Nasal Cannula 2.0 02/02/17 02:00 98.5 98.5 Physical Exam PHYSICAL EXAM GENERAL: NAD, Alert HEENT: PERRL, OC/OP NECK: Supple, no JVD, no LN LUNGS: Clear HEART: S1S2, no gallop, no murmur ABD: Soft, NT, no organomegaly, no rebound, incision looks good EXT: No edema, no cyanosis [employer]: Alert, oriented x 3, no focal neurologic deficit SKIN: No rash IV: ok Labs Lab Laboratory Tests Test 02/01/17 10:57 02/02/17 04:25 Lactic Acid Level 1.0mmol/L (0.4-2.0) White Blood Count 11.9x10^3/uL (4.0-11.0) Red Blood Count 3.84x10^6/uL (4.30-5.70) Hemoglobin 13.1g/dL (13.0-17.5) Hematocrit 39.9% (39.0-53.0) Mean Corpuscular Volume 104fL (79-100) Mean Corpuscular Hemoglobin 34pg (25-35) Mean Corpuscular Hemoglobin Concent 33g/dL (31-37) Red Cell Distribution Width 14.8% (11.5-14.5) Platelet Count 211x10^3/uL (140-400) Neutrophils (%) (Auto) 82% (31-73) Lymphocytes (%) (Auto) 9% (24-48) Monocytes (%) (Auto) 9% (0-9) Eosinophils (%) (Auto) 0% (0-3) Basophils (%) (Auto) 0% (0-3) Neutrophils # (Auto) 9.8x10^3uL (1.8-7.7) Lymphocytes # (Auto) 1.0x10^3/uL (1.0-4.8) Monocytes # (Auto) 1.1x10^3/uL (0.0-1.1) Eosinophils # (Auto) 0.0x10^3/uL (0.0-0.7) Basophils # (Auto) 0.0x10^3/uL (0.0-0.2) Sodium Level 141mmol/L (136-145) Potassium Level 3.6mmol/L (3.5-5.1) Chloride Level 106mmol/L (98-107) Carbon Dioxide Level 26mmol/L (21-32) Anion Gap 9 (6-14) Blood Urea Nitrogen 20mg/dL (8-26) Creatinine 0.9mg/dL (0.7-1.3) Estimated GFR (Cockcroft-Gault) 83.2 Glucose Level 141mg/dL (70-99) Calcium Level 8.4mg/dL (8.5-10.1) Phosphorus Level 2.8mg/dL (2.6-4.7) Albumin 1.5g/dL (3.4-5.0) Micro ANAEROBIC-AEROBIC CULTURE Preliminary Preliminary report ANAEROBIC RES 1 PENDING ANAEROBIC RES 2 Preliminary Bacteroides fragilis Heavy growth Beta lactamase positive. Performed at: [address] [id number] [facility] Recovery Special Tactics: Preethi Nguyen MD, Phone: [phone] AEROBIC CULT Final Final report AEROBIC RES 1 Final Comment Streptococcus bovis group Heavy growth AEROBIC RES 2 Final Comment Haemophilus parainfluenzae Heavy growth Beta lactamase negative. AEROBIC RES 3 Final Mixed site kale. Objective Assessment Perforated colon s/p surgery Peritonitis Sepsis with hypotension Crohns disease on remicaid Recent pneumonia smoker Plan Plan of Care Change abx to vanc and meropenem BC pending Monitor labs supportive care d/w family KELSIE CANTU MD Feb 02, 2017 08:05
[2017-02-02 08:32] LABS: HCO3 ABG 21 mmol/L (21-28); PCO2 ABG 28 mmHg (35-46); PH ABG 7.48 (7.35-7.45); PO2 ABG 71 mmHg (65-108); SAT O2 ABG 94 % (92-99)
[2017-02-02] MEDS: DIGOXIN 500 MCG/2 ML AMPUL. IV SCH (08:59)
[2017-02-02] MEDS: ENOXAPARIN 40 MG/0.4 ML SYRINGE. SQ SCH (08:59)
[2017-02-02] MEDS: MULTIVIT INFUSN,ADULT 4,VIT K 10 ML, FOLIC ACID 1 MG, THIAMINE 100 MG in IV DEXTROSE 5 ... IV SCH (08:59)
[2017-02-02] MEDS: NICOTINE 21MG PATCH. TD SCH (09:00)
[2017-02-02] MEDS: VANCOMYCIN PER PHARMACY MC PRN ×2 (09:27→09:59)
--- NOTE | 2017-02-02 09:36 | PDOC ---
SURGICAL PROGRESS NOTE Subjective POD 7 seen in the ICU weekend events reviewed per family, he is more alert and responsive today Vital Signs Vital Signs Date Time Temp Pulse Resp B/P Pulse Ox O2 Delivery O2 Flow Rate FiO2 02/02/17 09:00 66 20 112/72 95 Nasal Cannula 2.0 02/02/17 07:00 97.8 97.8 I&O Intake and Output 02/02/17 07:00 Intake Total 4618 ml Output Total 2555 ml Balance 2063 ml Intake Oral 0 ml IV Total 2350 ml Other 2268 ml Output Urine Total 1350 ml Gastric Drainage Total 850 ml Emesis 350 ml Drainage Total 5 ml PATIENT HAS A YANCEY: No General: Alert, No acute distress Abdomen: Soft, Other (some dark liquid stool in the colostomy bag, drains with minimal output) Labs Laboratory Tests Test 01/31/17 11:13 01/31/17 14:00 02/01/17 04:40 02/01/17 07:15 Urine Collection Type Unknown Urine Color Yellow Urine Clarity Clear Urine pH 5.5 Urine Specific [place] 1.025 Urine Protein 30mg/dL (NEG-TRACE) Urine Glucose (UA) Negativemg/dL (NEG) Urine Ketones (Stick) Tracemg/dL (NEG) Urine Blood Negative (NEG) Urine Nitrite Negative (NEG) Urine Bilirubin Negative (NEG) Urine Urobilinogen Dipstick 0.2mg/dL (0.2 mg/dL) Urine Leukocyte Esterase Negative (NEG) Urine RBC Rare/HPF (0-2) Urine WBC Occ/HPF (0-4) Urine Squamous Epithelial Cells Few/LPF Urine Bacteria Few/HPF (0-FEW) Erythrocyte Sedimentation Rate 109 (0-15) White Blood Count 14.3x10^3/uL (4.0-11.0) Red Blood Count 3.97x10^6/uL (4.30-5.70) Hemoglobin 13.5g/dL (13.0-17.5) Hematocrit 40.2% (39.0-53.0) Mean Corpuscular Volume 101fL (79-100) Mean Corpuscular Hemoglobin 34pg (25-35) Mean Corpuscular Hemoglobin Concent 34g/dL (31-37) Red Cell Distribution Width 14.7% (11.5-14.5) Platelet Count 152x10^3/uL (140-400) Neutrophils (%) (Auto) 78% (31-73) Lymphocytes (%) (Auto) 11% (24-48) Monocytes (%) (Auto) 11% (0-9) Eosinophils (%) (Auto) 0% (0-3) Basophils (%) (Auto) 0% (0-3) Neutrophils # (Auto) 11.2x10^3uL (1.8-7.7) Lymphocytes # (Auto) 1.5x10^3/uL (1.0-4.8) Monocytes # (Auto) 1.6x10^3/uL (0.0-1.1) Eosinophils # (Auto) 0.0x10^3/uL (0.0-0.7) Basophils # (Auto) 0.0x10^3/uL (0.0-0.2) Sodium Level 139mmol/L (136-145) Potassium Level 3.4mmol/L (3.5-5.1) Chloride Level 105mmol/L (98-107) Carbon Dioxide Level 27mmol/L (21-32) Anion Gap 7 (6-14) Blood Urea Nitrogen 19mg/dL (8-26) Creatinine 1.0mg/dL (0.7-1.3) Estimated GFR (Cockcroft-Gault) 73.7 Glucose Level 110mg/dL (70-99) Calcium Level 8.4mg/dL (8.5-10.1) Phosphorus Level 4.2mg/dL (2.6-4.7) Magnesium Level 1.8mg/dL (1.8-2.4) Albumin 1.6g/dL (3.4-5.0) O2 Saturation 92% (92-99) Arterial Blood pH 7.50 (7.35-7.45) Arterial Blood pH (Temp corrected) 7.48 Arterial Blood pCO2 at Patient Temp 30mmHg (35-46) Arterial Blood pCO2 (Temp correct) 32mmHg Arterial Blood pO2 at Patient Temp 59mmHg (65-108) Arterial Blood pO2 (Temp corrected) 65mmHg Arterial Blood HCO3 23mmol/L (21-28) Arterial Blood Base Excess 1mmol/L (-3-3) FiO2 32 Test 02/01/17 10:57 02/02/17 04:02/02/17 08:20 Lactic Acid Level 1.0mmol/L (0.4-2.0) White Blood Count 11.9x10^3/uL (4.0-11.0) Red Blood Count 3.84x10^6/uL (4.30-5.70) Hemoglobin 13.1g/dL (13.0-17.5) Hematocrit 39.9% (39.0-53.0) Mean Corpuscular Volume 104fL (79-100) Mean Corpuscular Hemoglobin 34pg (25-35) Mean Corpuscular Hemoglobin Concent 33g/dL (31-37) Red Cell Distribution Width 14.8% (11.5-14.5) Platelet Count 211x10^3/uL (140-400) Neutrophils (%) (Auto) 82% (31-73) Lymphocytes (%) (Auto) 9% (24-48) Monocytes (%) (Auto) 9% (0-9) Eosinophils (%) (Auto) 0% (0-3) Basophils (%) (Auto) 0% (0-3) Neutrophils # (Auto) 9.8x10^3uL (1.8-7.7) Lymphocytes # (Auto) 1.0x10^3/uL (1.0-4.8) Monocytes # (Auto) 1.1x10^3/uL (0.0-1.1) Eosinophils # (Auto) 0.0x10^3/uL (0.0-0.7) Basophils # (Auto) 0.0x10^3/uL (0.0-0.2) Sodium Level 141mmol/L (136-145) Potassium Level 3.6mmol/L (3.5-5.1) Chloride Level 106mmol/L (98-107) Carbon Dioxide Level 26mmol/L (21-32) Anion Gap 9 (6-14) Blood Urea Nitrogen 20mg/dL (8-26) Creatinine 0.9mg/dL (0.7-1.3) Estimated GFR (Cockcroft-Gault) 83.2 Glucose Level 141mg/dL (70-99) Calcium Level 8.4mg/dL (8.5-10.1) Phosphorus Level 2.8mg/dL (2.6-4.7) Albumin 1.5g/dL (3.4-5.0) O2 Saturation 94% (92-99) Arterial Blood pH 7.48 (7.35-7.45) Arterial Blood pCO2 at Patient Temp 28mmHg (35-46) Arterial Blood pO2 at Patient Temp 71mmHg (65-108) Arterial Blood HCO3 21mmol/L (21-28) Arterial Blood Base Excess -2mmol/L (-3-3) FiO2 2 lpm nc Laboratory Tests Test 02/01/17 10:57 02/02/17 04:25 02/02/17 08:20 Lactic Acid Level 1.0mmol/L (0.4-2.0) White Blood Count 11.9x10^3/uL (4.0-11.0) Red Blood Count 3.84x10^6/uL (4.30-5.70) Hemoglobin 13.1g/dL (13.0-17.5) Hematocrit 39.9% (39.0-53.0) Mean Corpuscular Volume 104fL (79-100) Mean Corpuscular Hemoglobin 34pg (25-35) Mean Corpuscular Hemoglobin Concent 33g/dL (31-37) Red Cell Distribution Width 14.8% (11.5-14.5) Platelet Count 211x10^3/uL (140-400) Neutrophils (%) (Auto) 82% (31-73) Lymphocytes (%) (Auto) 9% (24-48) Monocytes (%) (Auto) 9% (0-9) Eosinophils (%) (Auto) 0% (0-3) Basophils (%) (Auto) 0% (0-3) Neutrophils # (Auto) 9.8x10^3uL (1.8-7.7) Lymphocytes # (Auto) 1.0x10^3/uL (1.0-4.8) Monocytes # (Auto) 1.1x10^3/uL (0.0-1.1) Eosinophils # (Auto) 0.0x10^3/uL (0.0-0.7) Basophils # (Auto) 0.0x10^3/uL (0.0-0.2) Sodium Level 141mmol/L (136-145) Potassium Level 3.6mmol/L (3.5-5.1) Chloride Level 106mmol/L (98-107) Carbon Dioxide Level 26mmol/L (21-32) Anion Gap 9 (6-14) Blood Urea Nitrogen 20mg/dL (8-26) Creatinine 0.9mg/dL (0.7-1.3) Estimated GFR (Cockcroft-Gault) 83.2 Glucose Level 141mg/dL (70-99) Calcium Level 8.4mg/dL (8.5-10.1) Phosphorus Level 2.8mg/dL (2.6-4.7) Albumin 1.5g/dL (3.4-5.0) O2 Saturation 94% (92-99) Arterial Blood pH 7.48 (7.35-7.45) Arterial Blood pCO2 at Patient Temp 28mmHg (35-46) Arterial Blood pO2 at Patient Temp 71mmHg (65-108) Arterial Blood HCO3 21mmol/L (21-28) Arterial Blood Base Excess -2mmol/L (-3-3) FiO2 2 lpm nc I have reviewed the following CT abdomen and pelvis done over the weekend is reviewed Problem List Problems Medical Problems: (1) Perforated abdominal viscus Status: Acute Assessment/Plan s/p splenic colon resection for ischemic perforation continue supportive care Problems: RON GROSS MD Feb 02, 2017 09:36
--- NOTE | 2017-02-02 09:54 | PDOC ---
PULMONARY PROGRESS NOTES Subjective no soa on low dose Levo Vitals Vital Signs Date Time Temp Pulse Resp B/P Pulse Ox O2 Delivery O2 Flow Rate FiO2 02/02/17 09:00 66 20 112/72 95 Nasal Cannula 2.0 02/02/17 07:00 97.8 97.8 General: No acute distress Lungs: Other (decrease bs bases) Cardiovascular: S1 Abdomen: Soft, Other (NT) Neuro Exam: Alert Extremities: No Edema Skin: Warm Labs Laboratory Tests Test 01/31/17 11:13 01/31/17 14:00 02/01/17 04:40 02/01/17 07:15 Urine Collection Type Unknown Urine Color Yellow Urine Clarity Clear Urine pH 5.5 Urine Specific [place] 1.025 Urine Protein 30mg/dL (NEG-TRACE) Urine Glucose (UA) Negativemg/dL (NEG) Urine Ketones (Stick) Tracemg/dL (NEG) Urine Blood Negative (NEG) Urine Nitrite Negative (NEG) Urine Bilirubin Negative (NEG) Urine Urobilinogen Dipstick 0.2mg/dL (0.2 mg/dL) Urine Leukocyte Esterase Negative (NEG) Urine RBC Rare/HPF (0-2) Urine WBC Occ/HPF (0-4) Urine Squamous Epithelial Cells Few/LPF Urine Bacteria Few/HPF (0-FEW) Erythrocyte Sedimentation Rate 109 (0-15) White Blood Count 14.3x10^3/uL (4.0-11.0) Red Blood Count 3.97x10^6/uL (4.30-5.70) Hemoglobin 13.5g/dL (13.0-17.5) Hematocrit 40.2% (39.0-53.0) Mean Corpuscular Volume 101fL (79-100) Mean Corpuscular Hemoglobin 34pg (25-35) Mean Corpuscular Hemoglobin Concent 34g/dL (31-37) Red Cell Distribution Width 14.7% (11.5-14.5) Platelet Count 152x10^3/uL (140-400) Neutrophils (%) (Auto) 78% (31-73) Lymphocytes (%) (Auto) 11% (24-48) Monocytes (%) (Auto) 11% (0-9) Eosinophils (%) (Auto) 0% (0-3) Basophils (%) (Auto) 0% (0-3) Neutrophils # (Auto) 11.2x10^3uL (1.8-7.7) Lymphocytes # (Auto) 1.5x10^3/uL (1.0-4.8) Monocytes # (Auto) 1.6x10^3/uL (0.0-1.1) Eosinophils # (Auto) 0.0x10^3/uL (0.0-0.7) Basophils # (Auto) 0.0x10^3/uL (0.0-0.2) Sodium Level 139mmol/L (136-145) Potassium Level 3.4mmol/L (3.5-5.1) Chloride Level 105mmol/L (98-107) Carbon Dioxide Level 27mmol/L (21-32) Anion Gap 7 (6-14) Blood Urea Nitrogen 19mg/dL (8-26) Creatinine 1.0mg/dL (0.7-1.3) Estimated GFR (Cockcroft-Gault) 73.7 Glucose Level 110mg/dL (70-99) Calcium Level 8.4mg/dL (8.5-10.1) Phosphorus Level 4.2mg/dL (2.6-4.7) Magnesium Level 1.8mg/dL (1.8-2.4) Albumin 1.6g/dL (3.4-5.0) O2 Saturation 92% (92-99) Arterial Blood pH 7.50 (7.35-7.45) Arterial Blood pH (Temp corrected) 7.48 Arterial Blood pCO2 at Patient Temp 30mmHg (35-46) Arterial Blood pCO2 (Temp correct) 32mmHg Arterial Blood pO2 at Patient Temp 59mmHg (65-108) Arterial Blood pO2 (Temp corrected) 65mmHg Arterial Blood HCO3 23mmol/L (21-28) Arterial Blood Base Excess 1mmol/L (-3-3) FiO2 32 Test 02/01/17 10:57 02/02/17 04:25 02/02/17 08:20 Lactic Acid Level 1.0mmol/L (0.4-2.0) White Blood Count 11.9x10^3/uL (4.0-11.0) Red Blood Count 3.84x10^6/uL (4.30-5.70) Hemoglobin 13.1g/dL (13.0-17.5) Hematocrit 39.9% (39.0-53.0) Mean Corpuscular Volume 104fL (79-100) Mean Corpuscular Hemoglobin 34pg (25-35) Mean Corpuscular Hemoglobin Concent 33g/dL (31-37) Red Cell Distribution Width 14.8% (11.5-14.5) Platelet Count 211x10^3/uL (140-400) Neutrophils (%) (Auto) 82% (31-73) Lymphocytes (%) (Auto) 9% (24-48) Monocytes (%) (Auto) 9% (0-9) Eosinophils (%) (Auto) 0% (0-3) Basophils (%) (Auto) 0% (0-3) Neutrophils # (Auto) 9.8x10^3uL (1.8-7.7) Lymphocytes # (Auto) 1.0x10^3/uL (1.0-4.8) Monocytes # (Auto) 1.1x10^3/uL (0.0-1.1) Eosinophils # (Auto) 0.0x10^3/uL (0.0-0.7) Basophils # (Auto) 0.0x10^3/uL (0.0-0.2) Sodium Level 141mmol/L (136-145) Potassium Level 3.6mmol/L (3.5-5.1) Chloride Level 106mmol/L (98-107) Carbon Dioxide Level 26mmol/L (21-32) Anion Gap 9 (6-14) Blood Urea Nitrogen 20mg/dL (8-26) Creatinine 0.9mg/dL (0.7-1.3) Estimated GFR (Cockcroft-Gault) 83.2 Glucose Level 141mg/dL (70-99) Calcium Level 8.4mg/dL (8.5-10.1) Phosphorus Level 2.8mg/dL (2.6-4.7) Albumin 1.5g/dL (3.4-5.0) O2 Saturation 94% (92-99) Arterial Blood pH 7.48 (7.35-7.45) Arterial Blood pCO2 at Patient Temp 28mmHg (35-46) Arterial Blood pO2 at Patient Temp 71mmHg (65-108) Arterial Blood HCO3 21mmol/L (21-28) Arterial Blood Base Excess -2mmol/L (-3-3) FiO2 2 lpm nc Laboratory Tests Test 02/01/17 10:57 02/02/17 04:25 02/02/17 08:20 Lactic Acid Level 1.0mmol/L (0.4-2.0) White Blood Count 11.9x10^3/uL (4.0-11.0) Red Blood Count 3.84x10^6/uL (4.30-5.70) Hemoglobin 13.1g/dL (13.0-17.5) Hematocrit 39.9% (39.0-53.0) Mean Corpuscular Volume 104fL (79-100) Mean Corpuscular Hemoglobin 34pg (25-35) Mean Corpuscular Hemoglobin Concent 33g/dL (31-37) Red Cell Distribution Width 14.8% (11.5-14.5) Platelet Count 211x10^3/uL (140-400) Neutrophils (%) (Auto) 82% (31-73) Lymphocytes (%) (Auto) 9% (24-48) Monocytes (%) (Auto) 9% (0-9) Eosinophils (%) (Auto) 0% (0-3) Basophils (%) (Auto) 0% (0-3) Neutrophils # (Auto) 9.8x10^3uL (1.8-7.7) Lymphocytes # (Auto) 1.0x10^3/uL (1.0-4.8) Monocytes # (Auto) 1.1x10^3/uL (0.0-1.1) Eosinophils # (Auto) 0.0x10^3/uL (0.0-0.7) Basophils # (Auto) 0.0x10^3/uL (0.0-0.2) Sodium Level 141mmol/L (136-145) Potassium Level 3.6mmol/L (3.5-5.1) Chloride Level 106mmol/L (98-107) Carbon Dioxide Level 26mmol/L (21-32) Anion Gap 9 (6-14) Blood Urea Nitrogen 20mg/dL (8-26) Creatinine 0.9mg/dL (0.7-1.3) Estimated GFR (Cockcroft-Gault) 83.2 Glucose Level 141mg/dL (70-99) Calcium Level 8.4mg/dL (8.5-10.1) Phosphorus Level 2.8mg/dL (2.6-4.7) Albumin 1.5g/dL (3.4-5.0) O2 Saturation 94% (92-99) Arterial Blood pH 7.48 (7.35-7.45) Arterial Blood pCO2 at Patient Temp 28mmHg (35-46) Arterial Blood pO2 at Patient Temp 71mmHg (65-108) Arterial Blood HCO3 21mmol/L (21-28) Arterial Blood Base Excess -2mmol/L (-3-3) FiO2 2 lpm nc Medications Active Scripts Medications Dose Route/Sig Days Date Category Remicade (Infliximab) 100 Mg Vial 100 Mg IV Q8HRS 01/26/17 Reported Impression . 1. Acute hypoxemic respiratory failure, multifactorial in etiology. 2. Septic shock secondary to peritonitis and pneumonia. on low dose levo 3. Abnormal chest x-ray with moderate post-op atelectasis 4. encephalopathy, improved 5. Hypokalemia. 6. Status post colon rupture and colostomy. 8. Alcohol withdrawal. 9. Smoker, probable chronic obstructive pulmonary disease. 10. Crohn disease. 11. History of atrial fibrillation. Plan . 1. Nasal canula 2. Titrate FiO2 to keep O2 saturation 92%. 3. off BiPAP 4. s/p IV fluids, 5. Continue Lovenox for DVT prophylaxis. 6. Pepcid for stress ulcer prophylaxis. 7. Continue antibiotic. ID is on the case. 8. Solu-Cortef. 9. inhaled corticosteroid. 10. bronchodilator Atrovent only. H 11. wean off Precedex 12. I will discuss the findings and recommendations with RN and RT. 13. Negative lower extremity venous Doppler. 14. aggressive IS cct 25 min KEVIN LORA MD Feb 02, 2017 09:54
--- NOTE | 2017-02-02 10:27 | PDOC ---
PROGRESS NOTES Chief Complaint Chief Complaint Bowel perf ASSESSMENT AND PLAN: 1. SEVERE SEPSIS with ORGAN Dysfunction - new (02/01/17) 1. Colonic perforation: s/p emergent resection of splenic flexure with Paiz pouch on 01/26 2. Peritonitis, fecaloid material intra op 3. Crohn's: on remicade on O/p basis, i.e. immunosuppressed 4. VELVET: recovering. 5. Hyperkalemia: resolved 6. Aflutter: new. resolved (Transient) 6. Thrombocytopenia: resolved 7. Anemia, macrocytic: 8. Leukocytosis: reactive; 9. Agitation: personality vs EtOH W/D. 10. COugh 11. SMOker 12. METABOLIC ENCEPHALOPATHY new (01/30/17) History of Present Illness History of Present Illness Patient was laying in the bed, was awake, alert and oriented, NGT, LASHAUN drain were in place, family was at bedside. Pt. stated he is feeling better, he is still on levophed to maintain BP. Plan of care discussed with family, pt. and RN. Vitals Vitals Vital Signs Date Time Temp Pulse Resp B/P Pulse Ox O2 Delivery O2 Flow Rate FiO2 02/02/17 09:00 66 20 112/72 95 Nasal Cannula 2.0 02/02/17 07:00 97.8 97.8 Physical Exam General: Alert, Oriented X3, Cooperative Heart: Other (tachycardia ) Lungs: Other (decrease bs bases) Abdomen: Soft, Other (some dark liquid stool in the colostomy bag, NGT and LASHAUN drains with minimal output) Extremities: No edema, Normal pulses Skin: No significant lesion, Other Labs LABS Laboratory Tests Test 02/01/17 10:57 02/02/17 04:25 02/02/17 08:20 Lactic Acid Level 1.0mmol/L (0.4-2.0) White Blood Count 11.9x10^3/uL (4.0-11.0) Red Blood Count 3.84x10^6/uL (4.30-5.70) Hemoglobin 13.1g/dL (13.0-17.5) Hematocrit 39.9% (39.0-53.0) Mean Corpuscular Volume 104fL (79-100) Mean Corpuscular Hemoglobin 34pg (25-35) Mean Corpuscular Hemoglobin Concent 33g/dL (31-37) Red Cell Distribution Width 14.8% (11.5-14.5) Platelet Count 211x10^3/uL (140-400) Neutrophils (%) (Auto) 82% (31-73) Lymphocytes (%) (Auto) 9% (24-48) Monocytes (%) (Auto) 9% (0-9) Eosinophils (%) (Auto) 0% (0-3) Basophils (%) (Auto) 0% (0-3) Neutrophils # (Auto) 9.8x10^3uL (1.8-7.7) Lymphocytes # (Auto) 1.0x10^3/uL (1.0-4.8) Monocytes # (Auto) 1.1x10^3/uL (0.0-1.1) Eosinophils # (Auto) 0.0x10^3/uL (0.0-0.7) Basophils # (Auto) 0.0x10^3/uL (0.0-0.2) Sodium Level 141mmol/L (136-145) Potassium Level 3.6mmol/L (3.5-5.1) Chloride Level 106mmol/L (98-107) Carbon Dioxide Level 26mmol/L (21-32) Anion Gap 9 (6-14) Blood Urea Nitrogen 20mg/dL (8-26) Creatinine 0.9mg/dL (0.7-1.3) Estimated GFR (Cockcroft-Gault) 83.2 Glucose Level 141mg/dL (70-99) Calcium Level 8.4mg/dL (8.5-10.1) Phosphorus Level 2.8mg/dL (2.6-4.7) Albumin 1.5g/dL (3.4-5.0) O2 Saturation 94% (92-99) Arterial Blood pH 7.48 (7.35-7.45) Arterial Blood pCO2 at Patient Temp 28mmHg (35-46) Arterial Blood pO2 at Patient Temp 71mmHg (65-108) Arterial Blood HCO3 21mmol/L (21-28) Arterial Blood Base Excess -2mmol/L (-3-3) FiO2 2 lpm nc Review of Systems Review of Systems Denies fever, chills Denies CP Awake, alert, oriented colostomy Dressing was dry and intact Minimal output in drains Assessment and Plan Assessmemt and Plan ASSESSMENT AND PLAN: 1. SEVERE SEPSIS with ORGAN Dysfunction - new (02/01/17) 1. Colonic perforation: s/p emergent resection of splenic flexure with Paiz pouch on 01/26 2. Peritonitis, fecaloid material intra op 3. Crohn's: on remicade on O/p basis, i.e. immunosuppressed 4. VELVET: recovering. 5. Hyperkalemia: resolved 6. Aflutter: new. resolved (Transient) 6. Thrombocytopenia: resolved 7. Anemia, macrocytic: 8. Leukocytosis: reactive; 9. Agitation: personality vs EtOH W/D. 10. COugh 11. SMOker 12. METABOLIC ENCEPHALOPATHY new (01/30/17) PLAN: Continue ICU monitoring Labs recheck in AM Waiting MRI of head to get done Continue Banana bag daily Continue Levophed BiPAP per pulmo recommendations Continue antibiotics per ID recommendations D/w family and RN Appreciate subspecialities inputs and recommendations Total time 31 minutes Medical Problems: (1) Perforated abdominal viscus Status: Acute Problems: Comment Review of Relevant I have reviewed the following items manuel (where applicable) has been applied. Labs Laboratory Tests Test 01/31/17 11:13 01/31/17 14:00 02/01/17 04:40 02/01/17 07:15 Urine Collection Type Unknown Urine Color Yellow Urine Clarity Clear Urine pH 5.5 Urine Specific [place] 1.025 Urine Protein 30mg/dL (NEG-TRACE) Urine Glucose (UA) Negativemg/dL (NEG) Urine Ketones (Stick) Tracemg/dL (NEG) Urine Blood Negative (NEG) Urine Nitrite Negative (NEG) Urine Bilirubin Negative (NEG) Urine Urobilinogen Dipstick 0.2mg/dL (0.2 mg/dL) Urine Leukocyte Esterase Negative (NEG) Urine RBC Rare/HPF (0-2) Urine WBC Occ/HPF (0-4) Urine Squamous Epithelial Cells Few/LPF Urine Bacteria Few/HPF (0-FEW) Erythrocyte Sedimentation Rate 109 (0-15) White Blood Count 14.3x10^3/uL (4.0-11.0) Red Blood Count 3.97x10^6/uL (4.30-5.70) Hemoglobin 13.5g/dL (13.0-17.5) Hematocrit 40.2% (39.0-53.0) Mean Corpuscular Volume 101fL (79-100) Mean Corpuscular Hemoglobin 34pg (25-35) Mean Corpuscular Hemoglobin Concent 34g/dL (31-37) Red Cell Distribution Width 14.7% (11.5-14.5) Platelet Count 152x10^3/uL (140-400) Neutrophils (%) (Auto) 78% (31-73) Lymphocytes (%) (Auto) 11% (24-48) Monocytes (%) (Auto) 11% (0-9) Eosinophils (%) (Auto) 0% (0-3) Basophils (%) (Auto) 0% (0-3) Neutrophils # (Auto) 11.2x10^3uL (1.8-7.7) Lymphocytes # (Auto) 1.5x10^3/uL (1.0-4.8) Monocytes # (Auto) 1.6x10^3/uL (0.0-1.1) Eosinophils # (Auto) 0.0x10^3/uL (0.0-0.7) Basophils # (Auto) 0.0x10^3/uL (0.0-0.2) Sodium Level 139mmol/L (136-145) Potassium Level 3.4mmol/L (3.5-5.1) Chloride Level 105mmol/L (98-107) Carbon Dioxide Level 27mmol/L (21-32) Anion Gap 7 (6-14) Blood Urea Nitrogen 19mg/dL (8-26) Creatinine 1.0mg/dL (0.7-1.3) Estimated GFR (Cockcroft-Gault) 73.7 Glucose Level 110mg/dL (70-99) Calcium Level 8.4mg/dL (8.5-10.1) Phosphorus Level 4.2mg/dL (2.6-4.7) Magnesium Level 1.8mg/dL (1.8-2.4) Albumin 1.6g/dL (3.4-5.0) O2 Saturation 92% (92-99) Arterial Blood pH 7.50 (7.35-7.45) Arterial Blood pH (Temp corrected) 7.48 Arterial Blood pCO2 at Patient Temp 30mmHg (35-46) Arterial Blood pCO2 (Temp correct) 32mmHg Arterial Blood pO2 at Patient Temp 59mmHg (65-108) Arterial Blood pO2 (Temp corrected) 65mmHg Arterial Blood HCO3 23mmol/L (21-28) Arterial Blood Base Excess 1mmol/L (-3-3) FiO2 32 Test 02/01/17 10:57 02/02/17 04:25 02/02/17 08:20 Lactic Acid Level 1.0mmol/L (0.4-2.0) White Blood Count 11.9x10^3/uL (4.0-11.0) Red Blood Count 3.84x10^6/uL (4.30-5.70) Hemoglobin 13.1g/dL (13.0-17.5) Hematocrit 39.9% (39.0-53.0) Mean Corpuscular Volume 104fL (79-100) Mean Corpuscular Hemoglobin 34pg (25-35) Mean Corpuscular Hemoglobin Concent 33g/dL (31-37) Red Cell Distribution Width 14.8% (11.5-14.5) Platelet Count 211x10^3/uL (140-400) Neutrophils (%) (Auto) 82% (31-73) Lymphocytes (%) (Auto) 9% (24-48) Monocytes (%) (Auto) 9% (0-9) Eosinophils (%) (Auto) 0% (0-3) Basophils (%) (Auto) 0% (0-3) Neutrophils # (Auto) 9.8x10^3uL (1.8-7.7) Lymphocytes # (Auto) 1.0x10^3/uL (1.0-4.8) Monocytes # (Auto) 1.1x10^3/uL (0.0-1.1) Eosinophils # (Auto) 0.0x10^3/uL (0.0-0.7) Basophils # (Auto) 0.0x10^3/uL (0.0-0.2) Sodium Level 141mmol/L (136-145) Potassium Level 3.6mmol/L (3.5-5.1) Chloride Level 106mmol/L (98-107) Carbon Dioxide Level 26mmol/L (21-32) Anion Gap 9 (6-14) Blood Urea Nitrogen 20mg/dL (8-26) Creatinine 0.9mg/dL (0.7-1.3) Estimated GFR (Cockcroft-Gault) 83.2 Glucose Level 141mg/dL (70-99) Calcium Level 8.4mg/dL (8.5-10.1) Phosphorus Level 2.8mg/dL (2.6-4.7) Albumin 1.5g/dL (3.4-5.0) O2 Saturation 94% (92-99) Arterial Blood pH 7.48 (7.35-7.45) Arterial Blood pCO2 at Patient Temp 28mmHg (35-46) Arterial Blood pO2 at Patient Temp 71mmHg (65-108) Arterial Blood HCO3 21mmol/L (21-28) Arterial Blood Base Excess -2mmol/L (-3-3) FiO2 2 lpm nc Laboratory Tests Test 02/01/17 10:57 02/02/17 04:25 02/02/17 08:20 Lactic Acid Level 1.0mmol/L (0.4-2.0) White Blood Count 11.9x10^3/uL (4.0-11.0) Red Blood Count 3.84x10^6/uL (4.30-5.70) Hemoglobin 13.1g/dL (13.0-17.5) Hematocrit 39.9% (39.0-53.0) Mean Corpuscular Volume 104fL (79-100) Mean Corpuscular Hemoglobin 34pg (25-35) Mean Corpuscular Hemoglobin Concent 33g/dL (31-37) Red Cell Distribution Width 14.8% (11.5-14.5) Platelet Count 211x10^3/uL (140-400) Neutrophils (%) (Auto) 82% (31-73) Lymphocytes (%) (Auto) 9% (24-48) Monocytes (%) (Auto) 9% (0-9) Eosinophils (%) (Auto) 0% (0-3) Basophils (%) (Auto) 0% (0-3) Neutrophils # (Auto) 9.8x10^3uL (1.8-7.7) Lymphocytes # (Auto) 1.0x10^3/uL (1.0-4.8) Monocytes # (Auto) 1.1x10^3/uL (0.0-1.1) Eosinophils # (Auto) 0.0x10^3/uL (0.0-0.7) Basophils # (Auto) 0.0x10^3/uL (0.0-0.2) Sodium Level 141mmol/L (136-145) Potassium Level 3.6mmol/L (3.5-5.1) Chloride Level 106mmol/L (98-107) Carbon Dioxide Level 26mmol/L (21-32) Anion Gap 9 (6-14) Blood Urea Nitrogen 20mg/dL (8-26) Creatinine 0.9mg/dL (0.7-1.3) Estimated GFR (Cockcroft-Gault) 83.2 Glucose Level 141mg/dL (70-99) Calcium Level 8.4mg/dL (8.5-10.1) Phosphorus Level 2.8mg/dL (2.6-4.7) Albumin 1.5g/dL (3.4-5.0) O2 Saturation 94% (92-99) Arterial Blood pH 7.48 (7.35-7.45) Arterial Blood pCO2 at Patient Temp 28mmHg (35-46) Arterial Blood pO2 at Patient Temp 71mmHg (65-108) Arterial Blood HCO3 21mmol/L (21-28) Arterial Blood Base Excess -2mmol/L (-3-3) FiO2 2 lpm nc Microbiology 01/26/17 Gram Stain - Final, Complete Medications Current Medications Sodium Chloride (Iv Sodium Chloride 0.9% 1000ml Bag) 1,000 ml @ 100 mls/hr Q10H IV Last administered on 01/25/17 22:11; Start 01/25/17 at 22:30; Stop at 08:29; Status DC Ondansetron HCl (Zofran) 4 mg 1X ONCE IV Last administered on 01/25/17 22:12 ; Start 01/25/17 at 22:30; Stop 01/25/17 at 22:31; Status DC Fentanyl Citrate (Fentanyl 2ml Vial) 75 mcg PRN Q15MIN PRN IV PAIN GREATER THAN 3/10 Last administered on 01/26/17 00:50; Start 01/25/17 at 22:00; Stop at 21:59; Status DC Fentanyl Citrate (Fentanyl 2ml Vial) 100 mcg 1X ONCE IV Last administered on 22:12; Start 01/25/17 at 22:30; Stop 01/25/17 at 22:31; Status DC Iohexol (Omnipaque 300 Mg/ml) 75 ml 1X ONCE IV Last administered on 01/25/17 23:55; Start 01/26/17 at 00:00; Stop 01/26/17 at 00:01; Status DC Info 1 each 1 each PRN DAILY PRN MC SEE COMMENTS; Start 01/25/17 at 23:45; Stop 01/27/17 at 23:44; Status DC Piperacillin Sod/ Tazobactam Sod 3.375 gm/Sodium Chloride 50 ml @ 100 mls/hr 1X ONCE IV Last administered on 01/26/17 00:56; Start 01/26/17 at 01:00; Stop 01/26/17 at 01:29; Status DC Sodium Chloride (Iv Sodium Chloride 0.9% 1000ml Bag) 1,000 ml @ 100 mls/hr 1X ONCE IV Last administered on 01/26/17 00:53; Start 01/26/17 at 01:00; Stop at 10:59; Status DC Hydromorphone HCl (Dilaudid) 1 mg 1X ONCE IV Last administered on 01/26/17 01 :33; Start 01/26/17 at 01:30; Stop 01/26/17 at 01:34; Status DC Hydromorphone HCl 1 mg 1 mg 1X ONCE IV ; Start 01/26/17 at 02:00; Stop at 02:01; Status DC Piperacillin Sod/ Tazobactam Sod/ Sodium Chloride (Zosyn/Iv Sodium Chloride 0.9 % 50ml) 50 ml @ 100 mls/hr 1X ONCE IV Last administered on 01/26/17 02:43; Start 01/26/17 at 02:00; Stop 01/26/17 at 02:29; Status DC Dexamethasone Sodium Phosphate (Decadron) 20 mg STK-MED ONCE .ROUTE ; Start at 02:00; Stop 01/26/17 at 02:01; Status DC Ondansetron HCl 4 mg 4 mg STK-MED ONCE .ROUTE ; Start 01/26/17 at 02:00; Stop at 02:01; Status DC Propofol (Diprivan) 20 ml @ As Directed STK-MED ONCE IV ; Start 01/26/17 at 02: 00; Stop 01/26/17 at 02:01; Status DC Lidocaine HCl 100 mg STK-MED ONCE .ROUTE ; Start 01/26/17 at 02:00; Stop at 02:01; Status DC Fentanyl Citrate (Fentanyl 2ml Vial) 100 mcg STK-MED ONCE .ROUTE ; Start at 02:00; Stop 01/26/17 at 02:01; Status DC Succinylcholine Chloride (Anectine) 200 mg STK-MED ONCE .ROUTE ; Start 01/26/17 at 02:00; Stop 01/26/17 at 02:01; Status DC Rocuronium Denio (Zemuron) 50 mg STK-MED ONCE .ROUTE ; Start 01/26/17 at 02:00 ; Stop 01/26/17 at 02:01; Status DC Ondansetron HCl (Zofran) 4 mg PRN Q6HRS PRN IV Nausea; Start 01/26/17 at 02:15 ; Stop 01/27/17 at 02:14; Status DC Fentanyl Citrate (Fentanyl 2ml Vial) 25 mcg PRN Q5MIN PRN IV MILD PAIN; Start 01/26/17 at 02:15; Stop 01/27/17 at 02:14; Status DC Fentanyl Citrate (Fentanyl 2ml Vial) 50 mcg PRN Q5MIN PRN IV MODERATE PAIN; Start 01/26/17 at 02:15; Stop 01/27/17 at 02:14; Status DC Morphine Sulfate 1 mg 1 mg PRN Q10MIN PRN IV SEVERE PAIN; Start 01/26/17 at 02: 15; Stop 01/27/17 at 02:14; Status DC Lactated Ringer's (Iv Lactated Ringers) 1,000 ml @ 30 mls/hr Q24H IV ; Start at 02:09; Stop 01/26/17 at 14:08; Status DC Lidocaine HCl 2 ml 1X PRN PRN ID IV START; Start 01/26/17 at 02:15; Stop at 02:14; Status DC Hydromorphone HCl (Dilaudid) 0.5 mg PRN Q10MIN PRN IV SEV PAIN,Second choice Last administered on 01/26/17t 06:29; Start 01/26/17 at 02:15; Stop 01/27/17 at 02:14; Status DC Prochlorperazine Edisylate 5 mg 5 mg PACU PRN PRN IV NAUSEA; Start 01/26/17 at 02:15; Stop 01/27/17 at 02:14; Status DC Bacitracin/Sodium Chloride (Iv Sodium Chloride 0.9% 500ml Bag) 500 ml @ 500 mls /hr 1X PERIOP ONCE IRR ; Start 01/26/17 at 03:00; Stop 01/26/17 at 03:59; Status DC Hydrocortisone Sodium Succinate (Solu-Cortef) 100 mg STK-MED ONCE .ROUTE ; Start 01/26/17 at 02:24; Stop 01/26/17 at 02:25; Status DC Sevoflurane (Ultane) 90 ml STK-MED ONCE IH ; Start 01/26/17 at 03:16; Stop 01/26 at 03:17; Status DC Phenylephrine HCl 1 mg STK-MED ONCE IV ; Start 01/26/17 at 03:17; Stop 01/26/17 at 03:18; Status DC Phenylephrine HCl (Bhargav-Synephrine Inj) 10 mg STK-MED ONCE .ROUTE ; Start at 03:32; Stop 01/26/17 at 03:33; Status DC Rocuronium Denio (Zemuron) 50 mg STK-MED ONCE .ROUTE ; Start 01/26/17 at 03:36 ; Stop 01/26/17 at 03:37; Status DC Cellulose 1 each STK-MED ONCE .ROUTE Last administered on 01/26/17t 02:47; Start 01/26/17 at 03:38; Stop 01/26/17 at 03:39; Status DC Glycopyrrolate (Robinul) 1 mg STK-MED ONCE .ROUTE ; Start 01/26/17 at 04:23; Stop 01/26/17 at 04:24; Status DC Neostigmine Methylsulfate 5 mg STK-MED ONCE .ROUTE ; Start 01/26/17 at 04:23; Stop 01/26/17 at 04:24; Status DC Sevoflurane (Ultane) 90 ml STK-MED ONCE IH ; Start 01/26/17 at 04:23; Stop 01/26 at 04:24; Status DC Esmolol HCl (Brevibloc) 100 mg STK-MED ONCE IV ; Start 01/26/17 at 04:28; Stop 01/26/17 at 04:29; Status DC Fentanyl Citrate 100 mcg 100 mcg STK-MED ONCE .ROUTE ; Start 01/26/17 at 05:09; Stop 01/26/17 at 05:10; Status DC Metronidazole (FLAGYL 500Mmg PREMIX) 100 ml @ 100 mls/hr Q12HR IV ; Start 01/26 at 09:00; Stop 01/26/17 at 09:00; Status DC Diphenhydramine HCl (Benadryl) 25 mg PRN Q6HRS PRN IV ITCHING Last administered on 01/31/17 11:44; Start 01/26/17 at 05:45 Famotidine (Pepcid) 20 mg BID IVP Last administered on 01/26/17 21:22; Start 01/26/17 at 09:00; Stop 01/27/17 at 08:10; Status DC Enoxaparin Sodium (Lovenox 40mg Syringe) 40 mg Q24H SQ Last administered on 08:48; Start 01/26/17 at 09:00; Stop 01/27/17 at 15:59; Status DC Sodium Chloride 3 ml 3 ml QSHIFT PRN IV AFTER MEDS AND BLOOD DRAWS; Start 01/26 at 05:45 Potassium Chloride/Sodium Chloride 1,000 ml @ 100 mls/hr Q10H IV Last administered on 01/26/17 21:24; Start 01/26/17 at 06:00; Stop 01/27/17 at 13:26 ; Status DC Hydromorphone HCl (Dilaudid Standard VERIFICATION REP) 30 ml @ 0 mls/hr CONT PRN PRN IV PROTOCOL Last administered on 01/28/17 01:36; Start 01/26/17 at 05:45; Stop at 08:37; Status DC Hydromorphone HCl (Dilaudid) 1 mg PRN Q1HR PRN IV MODERATE PAIN Last administered on 01/31/17 23:58; Start 01/26/17 at 05:45 Ondansetron HCl (Zofran) 4 mg PRN Q6HRS PRN IV NAUESA, 1ST CHOICE Last administered on 01/30/17 14:08; Start 01/26/17 at 05:45 Throat Lozenges (Chloraseptic) 1 spray PRN Q2HR PRN PO SORE THROAT; Start 01/26 at 05:45 Throat Lozenges (Cepacol Sore Throat Lozenge) 1 west PRN Q2HRS PRN PO SORE THROAT; Start 01/26/17 at 05:45 Nicotine 1 patch 1 patch DAILY TD Last administered on 02/02/17 09:00; Start 01/26/17 at 09:00 Piperacillin Sod/ Tazobactam Sod/ Sodium Chloride (Zosyn/Iv Sodium Chloride 0.9 % 50ml) 50 ml @ 100 mls/hr Q6HRS IV Last administered on 02/01/17 12:48; Start 01/26/17 at 08:00; Stop 02/01/17 at 14:07; Status DC Vancomycin HCl 1 each 1 each PRN DAILY PRN MC SEE COMMENTS Last administered on 01/29/17 08:16; Start 01/26/17 at 07:45; Stop 01/30/17 at 09:19; Status DC Vancomycin HCl 2 gm/Sodium Chloride 500 ml @ 250 mls/hr 1X ONCE IV Last administered on 01/26/17 09:02; Start 01/26/17 at 08:00; Stop 01/26/17 at 09:59 ; Status DC Vancomycin HCl/ Sodium Chloride (Iv Sodium Chloride 0.9% 250ml) 250 ml @ 167 mls/hr Q12H IV Last administered on 01/26/17 21:22; Start 01/26/17 at 21:00; Stop 01/27/17 at 09:36; Status DC Vancomycin HCl 1 each 1X ONCE MC Last administered on 01/27/17 08:30; Start 01/27/17 at 08:30; Stop 01/27/17 at 08:31; Status DC Famotidine 20 mg 20 mg QHS IVP Last administered on 02/01/17 23:16; Start at 21:00; Stop 02/02/17 at 09:49; Status DC Vancomycin HCl/ Sodium Chloride (Iv Sodium Chloride 0.9% 250ml) 250 ml @ 167 mls/hr Q24H IV Last administered on 01/28/17 21:49; Start 01/27/17 at 22:00; Stop 01/28/17 at 23:00; Status DC Vancomycin HCl 1 each 1 each 1X ONCE MC Last administered on 01/28/17 21:30; Start 01/28/17 at 21:30; Stop 01/28/17 at 21:31; Status DC Diltiazem HCl 125 mg/Dextrose 125 ml @ 0 mls/hr CONT PRN IV SEE I/O RECORD Last administered on 01/27/17 23:12; Start 01/27/17 at 11:45; Stop 01/29/17 at 08:37; Status DC Sodium Chloride (Iv Sodium Chloride 0.45%) 1,000 ml @ 100 mls/hr 1X ONCE IV Last administered on 01/27/17 13:30; Start 01/27/17 at 13:30; Stop 01/27/17 at 23:29; Status DC Enoxaparin Sodium (Lovenox Per Pharmacy Treatment Dosing) 1 each PRN DAILY PRN MC SEE COMMENTS; Start 01/27/17 at 16:00; Stop 01/28/17 at 12:15; Status DC Enoxaparin Sodium 75 mg 75 mg Q12HR SQ Last administered on 01/28/17 09:07; Start 01/27/17 at 18:00; Stop 01/28/17 at 12:15; Status DC Magnesium Sulfate/ Dextrose 50 ml @ 25 mls/hr PRN DAILY PRN IV for Mag < 1.7 on am labs; Start 01/27/17 at 17:45; Stop 01/30/17 at 10:08; Status DC Sodium Chloride (Iv Sodium Chloride 0.9% 500ml Bag) 500 ml @ 0 mls/hr QID PRN IV For MAP < 65; Start 01/27/17 at 17:45; Stop 01/30/17 at 10:08; Status DC Info (Anti-Coagulation Monitoring By Pharmacy) 1 each PRN DAILY PRN MC SEE COMMENTS Last administered on 01/28/17 07:45; Start 01/28/17 at 07:45; Stop at 14:34; Status DC Enoxaparin Sodium 40 mg 40 mg Q24H SQ Last administered on 02/02/17 08:59; Start 01/29/17 at 09:00 Vancomycin HCl/ Sodium Chloride (Iv Sodium Chloride 0.9% 250ml) 250 ml @ 167 mls/hr Q12H IV Last administered on 01/29/17 21:45; Start 01/29/17 at 10:00; Stop 01/30/17 at 09:19; Status DC Vancomycin HCl 1 each 1X ONCE MC ; Start 01/30/17 at 09:30; Stop 01/30/17 at 09 :31; Status Cancel Oxycodone/ Acetaminophen (Percocet 10/325) 1 tab PRN Q4HRS PRN PO pain Last administered on 01/31/17 09:47; Start 01/29/17 at 08:45 Oxycodone/ Acetaminophen 1 tab 1 tab PRN Q4HRS PRN PO PAIN Last administered on 01/31/17 05:49; Start 01/29/17 at 08:45 Sodium Chloride (Iv Sodium Chloride 0.9% 1000ml Bag) 1,000 ml @ 75 mls/hr 1X ONCE IV Last administered on 01/30/17 09:25; Start 01/30/17 at 09:00; Stop at 22:19; Status DC Digoxin 250 mcg 250 mcg 1X ONCE IV Last administered on 01/30/17 09:25; Start 01/30/17 at 09:00; Stop 01/30/17 at 09:01; Status DC Amino Acids/ Electrolytes (Clinimix E 2.75%-5% Solution) 2,000 ml @ 80 mls/hr Q24H IV Last administered on 01/30/17 16:49; Start 01/30/17 at 15:00; Stop at 17:22; Status DC Haloperidol Lactate (Haldol) 5 mg PRN Q4HRS PRN IVP AGITATION Last administered on 01/31/17 05:12; Start 01/31/17 at 05:00 Digoxin 125 mcg 125 mcg DAILY IV Last administered on 02/02/17 08:59; Start at 10:00 Potassium Chloride 50 ml @ 50 mls/hr 1X ONCE IV ; Start 01/31/17 at 09:30; Stop 01/31/17 at 10:29; Status UNV Potassium Chloride (KCl Premix 10meq) 100 ml @ 100 mls/hr Q1H IV Last administered on 01/31/17 12:33; Start 01/31/17 at 09:45; Stop 01/31/17 at 11:44 ; Status DC Lorazepam 2 mg 2 mg PRN Q4HRS PRN IV ANXIETY / AGITATION Last administered on 15:30; Start 01/31/17 at 13:30 Multivitamins/ Folic Acid/ Thiamine HCl/ Dextrose/Sodium Chloride (Infuvite Adult/ Iv D5% - 1/2 NS) 1,011.2 ml @ 100 mls/ hr DAILY IV Last administered on 02/02/17 08:59; Start 01/31/17 at 15:30 Chlordiazepoxide 25 mg 25 mg PRN Q6HRS PRN PO ANXIETY / AGITATION Last administered on 01/31/17 14:27; Start 01/31/17 at 13:45 Amino Acids/ Electrolytes (Clinimix E 2.75%-5% Solution) 1,000 ml @ 80 mls/hr [id number] IV Last administered on 01/31/17 18:39; Start 01/31/17 at 17:22; Stop 02/01/17 at 07:53; Status DC Albuterol/ Ipratropium 3 ml 3 ml RTQID NEB ; Start 02/01/17 at 08:00; Stop 02/01 at 09:37; Status DC Amino Acids/ Electrolytes/ Dextrose 1,000 ml @ 80 mls/hr [id number] IV Last administered on 02/01/17 23:16; Start 02/01/17 at 08:00 Sodium Chloride (Iv Sodium Chloride 0.9% 1000ml Bag) 1,000 ml @ 1,000 mls/hr 1X ONCE IV Last administered on 02/01/17 10:04; Start 02/01/17 at 09:30; Stop 02/01/17 at 10:29; Status DC Budesonide 0.5 mg 0.5 mg RTBID NEB Last administered on 02/02/17 08:00; Start 02/01/17 at 09:30 Dexmedetomidine HCl 200 mcg/ Sodium Chloride 50 ml @ 0 mls/hr CONT PRN IV PER PROTOCOL Last administered on 02/01/17 23:17; Start 02/01/17 at 09:30 Sodium Chloride (Iv Sodium Chloride 0.9% 500ml Bag) 500 ml @ 500 mls/hr 1X PRN PRN IV SEE COMMENTS; Start 02/01/17 at 09:30 Atropine Sulfate 0.5 mg 0.5 mg PRN Q5MIN PRN IV SEE COMMENTS; Start 02/01/17 at 09:30 Sodium Chloride (Iv Sodium Chloride 0.9% 1000ml Bag) 1,000 ml @ 1,000 mls/hr 1X ONCE IV Last administered on 02/01/17 10:24; Start 02/01/17 at 09:30; Stop 02/01/17 at 10:29; Status DC Hydrocortisone Sodium Succinate (Solu-Cortef) 100 mg Q8HRS IV Last administered on 02/02/17 05:27; Start 02/01/17 at 09:45 Ipratropium Denio (Atrovent) 0.5 mg RTQID NEB Last administered on 02/02/17 08:00; Start 02/01/17 at 12:00 Vancomycin HCl 1 each 1 each PRN DAILY PRN MC SEE COMMENTS Last administered on 02/02/17 09:59; Start 02/01/17 at 13:15 Meropenem 1 gm/ Sodium Chloride 100 ml @ 200 mls/hr Q8HRS IV Last administered on 02/02/17 05:27; Start 02/01/17 at 14:00 Vancomycin HCl 1.75 gm/Sodium Chloride 500 ml @ 250 mls/hr 1X ONCE IV Last administered on 02/01/17 17:15; Start 02/01/17 at 15:00; Stop 02/01/17 at 16:59 ; Status DC Vancomycin HCl/ Sodium Chloride (Iv Sodium Chloride 0.9% 250ml) 250 ml @ 167 mls/hr Q12H IV Last administered on 02/02/17 05:27; Start 02/02/17 at 05:00 Vancomycin HCl 1 each 1 each 1X ONCE MC ; Start 02/03/17 at 04:30; Stop at 04:31 Norepinephrine Bitartrate/Sodium Chloride (Levophed Vial/ Iv Sodium Chloride 0.9 % 250ml) 258 ml @ 0 mls/hr CONT PRN IV SEE I/O RECORD; Start 02/01/17 at 23:15 Famotidine (Pepcid) 20 mg Q12HR IVP ; Start 02/02/17 at 11:00 Active Scripts Active Reported Remicade (Infliximab) 100 Mg Vial 100 Mg IV Q8HRS Vitals/I & O Vital Sign - Last 24 Hours 02/01/17 02/01/17 02/01/17 02/01/17 10:40 11:03 11:23 12:00 Temp 98.4 98.4 98.4 98.4 Pulse 95 97 Resp 34 34 B/P 94/61 96/66 Pulse Ox 96 95 95 O2 Delivery BiPAP/CPAP BiPAP/CPAP BiPAP/CPAP Bi-pap 02/01/17 02/01/17 02/01/17 02/01/17 12:10 13:03 14:00 15:00 Temp 99.9 99.9 Pulse 96 102 103 96 Resp 38 32 30 30 B/P 95/69 100/66 114/67 112/72 Pulse Ox 96 96 98 96 O2 Delivery BiPAP/CPAP BiPAP/CPAP BiPAP/CPAP BiPAP/CPAP 02/01/17 02/01/17 02/01/17 02/01/17 16:00 16:34 17:00 18:00 Temp 99.8 99.8 Pulse 94 85 Resp 32 30 B/P 114/75 112/74 Pulse Ox 95 96 95 O2 Delivery Bi-pap BiPAP/CPAP BiPAP/CPAP BiPAP/CPAP 02/01/17 02/01/17 02/01/17 02/01/17 19:00 19:44 20:00 20:00 Temp 97.9 97.9 Pulse 85 82 Resp 22 20 B/P 111/70 104/74 Pulse Ox 95 95 95 O2 Delivery BiPAP/CPAP BiPAP/CPAP BiPAP/CPAP Bi-pap 02/01/17 02/01/17 02/01/17 02/01/17 21:00 22:00 23:00 23:28 Pulse 82 81 69 Resp 22 22 22 B/P 85/58 87/62 77/58 Pulse Ox 95 95 97 97 O2 Delivery BiPAP/CPAP BiPAP/CPAP BiPAP/CPAP BiPAP/CPAP 02/02/17 02/02/17 02/02/17 02/02/17 00:00 00:00 00:40 01:22 Pulse 69 69 Resp 22 22 B/P 80/58 78/56 Pulse Ox 97 97 97 O2 Delivery Bi-pap BiPAP/CPAP BiPAP/CPAP BiPAP/CPAP 02/02/17 02/02/17 02/02/17 02/02/17 02:00 03:00 04:00 04:00 Temp 98.5 98.5 Pulse 73 73 68 Resp 22 20 20 B/P 107/78 119/80 122/76 Pulse Ox 97 96 97 O2 Delivery Nasal Cannula Room Air Nasal Cannula Nasal Cannula O2 Flow Rate 2.0 2.0 2.0 02/02/17 02/02/17 02/02/17 02/02/17 05:00 06:00 07:00 07:40 Temp 97.8 97.8 Pulse 64 62 73 Resp 20 20 20 B/P 123/70 115/78 115/75 Pulse Ox 97 96 96 O2 Delivery Nasal Cannula Nasal Cannula Nasal Cannula Nasal Cannula O2 Flow Rate 2.0 2.0 2.0 2.0 02/02/17 02/02/17 02/02/17 02/02/17 08:00 08:26 08:59 09:00 Pulse 65 73 66 Resp 20 20 B/P 115/78 115/75 112/72 Pulse Ox 96 96 95 O2 Delivery Nasal Cannula Nasal Cannula Nasal Cannula O2 Flow Rate 2.0 2.0 2.0 Intake and Output 02/01/17 02/01/17 02/02/17 15:00 23:00 07:00 Intake Total 2000 ml 0 ml 2618 ml Output Total 350 ml 955 ml 1250 ml Balance 1650 ml -955 ml 1368 ml EVELIO BLANTON III DO Feb 02, 2017 10:27
--- NOTE | 2017-02-02 13:09 | PDOC ---
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 ORNAMENTAL PAINTER 02/02/17 1309: CARDIO Progress Notes Date and Time Date of Service 02/02/17 Time of Evaluation 1310 Subjective Subjective: No Chest Pain, No shortness of breath, Other (having thick secretions/cough. Slight abdominal pain. Mentation improved) Vitals Vitals Vital Signs Date Time Temp Pulse Resp B/P Pulse Ox O2 Delivery O2 Flow Rate FiO2 02/02/17 12:02 91 Room Air 02/02/17 11:00 97.6 73 20 95/60 97.6 02/02/17 10:00 2.0 Weight Weight [ ] Input and Output Intake and Output Intake and Output 02/02/17 07:00 Intake Total 4618 ml Output Total 2555 ml Balance 2063 ml Intake Oral 0 ml IV Total 2350 ml Other 2268 ml Output Urine Total 1350 ml Gastric Drainage Total 850 ml Emesis 350 ml Drainage Total 5 ml Laboratory Labs Laboratory Tests Test 02/02/17 04:25 02/02/17 08:20 White Blood Count 11.9x10^3/uL (4.0-11.0) Red Blood Count 3.84x10^6/uL (4.30-5.70) Hemoglobin 13.1g/dL (13.0-17.5) Hematocrit 39.9% (39.0-53.0) Mean Corpuscular Volume 104fL (79-100) Mean Corpuscular Hemoglobin 34pg (25-35) Mean Corpuscular Hemoglobin Concent 33g/dL (31-37) Red Cell Distribution Width 14.8% (11.5-14.5) Platelet Count 211x10^3/uL (140-400) Neutrophils (%) (Auto) 82% (31-73) Lymphocytes (%) (Auto) 9% (24-48) Monocytes (%) (Auto) 9% (0-9) Eosinophils (%) (Auto) 0% (0-3) Basophils (%) (Auto) 0% (0-3) Neutrophils # (Auto) 9.8x10^3uL (1.8-7.7) Lymphocytes # (Auto) 1.0x10^3/uL (1.0-4.8) Monocytes # (Auto) 1.1x10^3/uL (0.0-1.1) Eosinophils # (Auto) 0.0x10^3/uL (0.0-0.7) Basophils # (Auto) 0.0x10^3/uL (0.0-0.2) Sodium Level 141mmol/L (136-145) Potassium Level 3.6mmol/L (3.5-5.1) Chloride Level 106mmol/L (98-107) Carbon Dioxide Level 26mmol/L (21-32) Anion Gap 9 (6-14) Blood Urea Nitrogen 20mg/dL (8-26) Creatinine 0.9mg/dL (0.7-1.3) Estimated GFR (Cockcroft-Gault) 83.2 Glucose Level 141mg/dL (70-99) Calcium Level 8.4mg/dL (8.5-10.1) Phosphorus Level 2.8mg/dL (2.6-4.7) Albumin 1.5g/dL (3.4-5.0) O2 Saturation 94% (92-99) Arterial Blood pH 7.48 (7.35-7.45) Arterial Blood pCO2 at Patient Temp 28mmHg (35-46) Arterial Blood pO2 at Patient Temp 71mmHg (65-108) Arterial Blood HCO3 21mmol/L (21-28) Arterial Blood Base Excess -2mmol/L (-3-3) FiO2 2 lpm nc Microbiology Micro Microbiology 02/01/17 Blood Culture - Preliminary, Resulted NO GROWTH AFTER 1 DAY 01/26/17 Gram Stain - Final, Complete Physical Exam HEENT: Neck Supple W Full Motion, Other (Rt nare NG) Chest: Symmetric LUNGS: Other (diminished bases ) Heart: S1S2, irregularly irregular (tele AFIB rate 75-85) Abdomen: Other (colostomy, abdominal tenderness) Extremities: 2+ Dorsalis Pedis, No Edema, No Calf Tenderness Neurology: alert, oriented, follow commands, confused (intermittent ) Assessment Assessment 1. Atrial fibrillation with RVR 2. Perforated viscus, s/p resection with end colostomy 3. Crohn's Dx 4. Acute respiratory failure 5. Leukocytosis 6. Pneumonia 7. Peritonitis 8. Sepsis with hypotension; off pressors 9. Metabolic encephalopathy Recommendations Continue IV dig for rate control- NPO x ice chips Pressors as warranted for BP support OAC with Eliquis when okay with surgery. Continue Lovenox for now. Antibiotic therapy per ID Supportive care Continue post-op management per surgical team KATIE PARK MD 02/02/17 1656: CARDIO Progress Notes Plan Plan Pt. seen and examined. 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 No acute events. Still in afib. No changes in CV exam. Discussed with patient and family at bedside above afib. Supportive care. Will follow. 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 APRN Feb 02, 2017 13:09 KATIE PARK MD Feb 02, 2017 16:56
[2017-02-02] MEDS: FAMOTIDINE 20 MG/2 ML VIAL IVP SCH ×2 (13:16→21:00)
--- NOTE | 2017-02-02 14:26 | PDOC ---
PROGRESS NOTES Assessment Assessment IMPRESSION: Metabolic encephalopathy. Perforation of small bowel, s/p laparoscope. Hypotension events. Crohn's disease/ Peritonitis. Pneumonia ? RECOMMENDATIONS/PLAN: HCT on 01/31 was unremarkable. Continue medical and surgical treatment. PAST MEDICAL AND SURGICAL HISTORY: Please see H&P ALLERGY: Reviewed. MEDICATIONS: Refer to MAR REVIEW OF SYSTEMS: Constitutional: No malnutrition, cachexia. Head: No traumatic brain or head injury. Skin: No edema, or rash. Ear: No infection, tinnitus. Eyes: No vision loss, or diplopia. Nose: No bleeding or purulent discharges. Hearing: Hearing loss. Cardiac: No [place], arrhythmia Pulmonary: No CPOD. GI: Crohn's disease. Urinary/genital: UTI. Endocrine: No cousin face, craniofacial dysmorphism, polydactyly. Skeletomuscular: No muscular atrophy, deformity. Neurological: see HP. Psychiatric: Denies drug use/abuse. Otherwise, not [id number] review of systems. PHYSICAL EXAMINATION: General appearance in subacute distress. HEENT: Normocephalic and nontraumatic. Eyes, nose, ears, and throat are unremarkable. Hearing decrease. Neck is supple. No lymphadenopathy. No bruits are heard over the carotid artery. No Crepitus. Cardiovascular: S1, S2, regular rate and rhythm. Pulmonary: Clear to auscultation bilaterally. Abdomen: Bowel sounds are positive. . Extremities: No rash, lesions, or edema. No restriction of range of motion NEUROLOGICAL EXAMINATION: Awake. Oriented to place and person and partially to time. PERRL. EOMI. CN: no focal findings. Muscle tone: within normal. Muscle strength: 4+ DTR: 2- Plantar reflex: Flexor response bilaterally Gait: not examined in bed. Sensory exam: no acute abnormal findings. No obvious cerebellar signs elicited. F-T-N test fine. Objective Objective Vital Signs Date Time Temp Pulse Resp B/P Pulse Ox O2 Delivery O2 Flow Rate FiO2 02/02/17 14:02 67 18 88/62 96 Nasal Cannula 2.0 02/02/17 11:00 97.6 97.6 Intake and Output 02/02/17 07:00 Intake Total 4618 ml Output Total 2555 ml Balance 2063 ml Intake Oral 0 ml IV Total 2350 ml Other 2268 ml Output Urine Total 1350 ml Gastric Drainage Total 850 ml Emesis 350 ml Drainage Total 5 ml Vitals Signs Vitals VS - Last 72 Hours, by Label Date Time Temp Pulse Resp B/P Pulse Ox O2 Delivery O2 Flow Rate FiO2 02/02/17 14:02 67 18 88/62 96 Nasal Cannula 2.0 02/02/17 13:00 76 18 102/57 93 Nasal Cannula 2.0 02/02/17 12:02 91 Room Air 02/02/17 12:00 82 18 86/58 88 Room Air 02/02/17 12:00 Nasal Cannula 2.0 02/02/17 11:00 97.6 73 20 95/60 93 Room Air 97.6 02/02/17 10:00 65 20 107/66 93 Nasal Cannula 2.0 02/02/17 09:00 66 20 112/72 95 Nasal Cannula 2.0 02/02/17 08:59 73 115/75 02/02/17 08:26 96 Nasal Cannula 2.0 02/02/17 08:00 65 20 115/78 96 Nasal Cannula 2.0 02/02/17 07:40 Nasal Cannula 2.0 02/02/17 07:00 97.8 73 20 115/75 96 Nasal Cannula 2.0 97.8 02/02/17 06:00 62 20 115/78 96 Nasal Cannula 2.0 02/02/17 05:00 64 20 123/70 97 Nasal Cannula 2.0 02/02/17 04:00 68 20 122/76 97 Nasal Cannula 2.0 02/02/17 04:00 Nasal Cannula 2.0 02/02/17 03:00 73 20 119/80 96 Room Air 02/02/17 02:00 98.5 73 22 107/78 97 Nasal Cannula 2.0 98.5 02/02/17 01:22 97 BiPAP/CPAP 02/02/17 00:40 69 22 78/56 97 BiPAP/CPAP 02/02/17 00:00 69 22 80/58 97 BiPAP/CPAP 02/02/17 00:00 Bi-pap 02/01/17 23:28 97 BiPAP/CPAP 02/01/17 23:00 69 22 77/58 97 BiPAP/CPAP 02/01/17 22:00 81 22 87/62 95 BiPAP/CPAP 02/01/17 21:00 82 22 85/58 95 BiPAP/CPAP 02/01/17 20:00 Bi-pap 02/01/17 20:00 97.9 82 20 104/74 95 BiPAP/CPAP 97.9 02/01/17 19:44 95 BiPAP/CPAP 02/01/17 19:00 85 22 111/70 95 BiPAP/CPAP 02/01/17 18:00 85 30 112/74 95 BiPAP/CPAP 02/01/17 17:00 99.8 94 32 114/75 96 BiPAP/CPAP 99.8 02/01/17 16:34 95 BiPAP/CPAP 02/01/17 16:00 Bi-pap 02/01/17 15:00 96 30 112/72 96 BiPAP/CPAP 02/01/17 14:00 103 30 114/67 98 BiPAP/CPAP 02/01/17 13:03 99.9 102 32 100/66 96 BiPAP/CPAP 99.9 02/01/17 12:10 96 38 95/69 96 BiPAP/CPAP 02/01/17 12:00 Bi-pap 02/01/17 11:23 95 BiPAP/CPAP 02/01/17 11:03 98.4 97 34 96/66 95 BiPAP/CPAP 98.4 02/01/17 10:40 98.4 95 34 94/61 96 BiPAP/CPAP 98.4 02/01/17 09:49 95 BiPAP/CPAP 02/01/17 09:30 Nasal Cannula 2.0 02/01/17 08:37 91 Nasal Cannula 3.0 02/01/17 08:00 Nasal Cannula 4.0 02/01/17 07:26 124 02/01/17 07:14 100.2 122 99/71 92 Nasal Cannula 3.0 100.2 Laboratory Laboratory Laboratory Tests Test 02/02/17 04:25 02/02/17 08:20 White Blood Count 11.9x10^3/uL (4.0-11.0) Red Blood Count 3.84x10^6/uL (4.30-5.70) Hemoglobin 13.1g/dL (13.0-17.5) Hematocrit 39.9% (39.0-53.0) Mean Corpuscular Volume 104fL (79-100) Mean Corpuscular Hemoglobin 34pg (25-35) Mean Corpuscular Hemoglobin Concent 33g/dL (31-37) Red Cell Distribution Width 14.8% (11.5-14.5) Platelet Count 211x10^3/uL (140-400) Neutrophils (%) (Auto) 82% (31-73) Lymphocytes (%) (Auto) 9% (24-48) Monocytes (%) (Auto) 9% (0-9) Eosinophils (%) (Auto) 0% (0-3) Basophils (%) (Auto) 0% (0-3) Neutrophils # (Auto) 9.8x10^3uL (1.8-7.7) Lymphocytes # (Auto) 1.0x10^3/uL (1.0-4.8) Monocytes # (Auto) 1.1x10^3/uL (0.0-1.1) Eosinophils # (Auto) 0.0x10^3/uL (0.0-0.7) Basophils # (Auto) 0.0x10^3/uL (0.0-0.2) Sodium Level 141mmol/L (136-145) Potassium Level 3.6mmol/L (3.5-5.1) Chloride Level 106mmol/L (98-107) Carbon Dioxide Level 26mmol/L (21-32) Anion Gap 9 (6-14) Blood Urea Nitrogen 20mg/dL (8-26) Creatinine 0.9mg/dL (0.7-1.3) Estimated GFR (Cockcroft-Gault) 83.2 Glucose Level 141mg/dL (70-99) Calcium Level 8.4mg/dL (8.5-10.1) Phosphorus Level 2.8mg/dL (2.6-4.7) Albumin 1.5g/dL (3.4-5.0) O2 Saturation 94% (92-99) Arterial Blood pH 7.48 (7.35-7.45) Arterial Blood pCO2 at Patient Temp 28mmHg (35-46) Arterial Blood pO2 at Patient Temp 71mmHg (65-108) Arterial Blood HCO3 21mmol/L (21-28) Arterial Blood Base Excess -2mmol/L (-3-3) FiO2 2 lpm nc Microbiology 02/01/17 Blood Culture - Preliminary, Resulted NO GROWTH AFTER 1 DAY 01/26/17 Gram Stain - Final, Complete Medication Medications Current Medications Famotidine (Pepcid) 20 mg Q12HR IVP Last administered on 02/02/17 13:16; Start 02/02/17 at 11:00 Norepinephrine Bitartrate/Sodium Chloride (Levophed Vial/ Iv Sodium Chloride 0.9 % 250ml) 258 ml @ 0 mls/hr CONT PRN IV SEE I/O RECORD; Start 02/01/17 at 23:15 Vancomycin HCl 1.75 gm/Sodium Chloride 500 ml @ 250 mls/hr 1X ONCE IV Last administered on 02/01/17 17:15; Start 02/01/17 at 15:00; Stop 02/01/17 at 16:59 ; Status DC Vancomycin HCl 1 each 1 each 1X ONCE MC ; Start 02/03/17 at 04:30; Stop at 04:31 Vancomycin HCl/ Sodium Chloride (Iv Sodium Chloride 0.9% 250ml) 250 ml @ 167 mls/hr Q12H IV Last administered on 02/02/17 05:27; Start 02/02/17 at 05:00 Comment Review of Relevant I have reviewed the following items manuel (where applicable) has been applied. JORGE LUIS WISDOM MD Feb 02, 2017 14:26
[2017-02-02] MEDS: AA 4.25%/CALCIUM/LYTES/D5W 1,000 ML IV SCH (16:41)
[2017-02-03] VITALS (16 sets, daily range): BP systolic 100–121; BP diastolic 64–79
[2017-02-03 04:22] LABS: BASO # 0.1 x10^3/uL (0.0-0.2); BASO % 1 % (0-3); EOS % 0 % (0-3); HEMATOCRIT 36.8 % (39.0-53.0); HEMOGLOBIN 12.2 g/dL (13.0-17.5); LYMPH % 7 % (24-48); MEAN CORPUSCULAR HEMOGLOBIN 33 pg (25-35); MEAN CORPUSCULAR HGB CONC 33 g/dL (31-37); MEAN CORPUSCULAR VOLUME 101 fL (79-100); MONO % 7 % (0-9); NEUT % 85 % (31-73); PLATELET COUNT 274 x10^3/uL (140-400); RED BLOOD COUNT 3.64 x10^6/uL (4.30-5.70); RED CELL DISTRIBUTION WIDTH 14.5 % (11.5-14.5); WHITE BLOOD COUNT 14.2 x10^3/uL (4.0-11.0)
[2017-02-03 04:52] LABS: ALBUMIN 1.4 g/dL (3.4-5.0); CALCIUM 8.4 mg/dL (8.5-10.1); CREATININE 0.9 mg/dL (0.7-1.3); GFR 83.2; PHOSPHORUS 3.1 mg/dL (2.6-4.7); POTASSIUM 3.9 mmol/L (3.5-5.1)
[2017-02-03] MEDS ORDERED: VANCOMYCIN 1.5 GM in IV NORMAL SALINE 500ML BAG 500 ML IV SCH (05:00)
[2017-02-03] MEDS: VANCOMYCIN PER PHARMACY MC PRN ×2 (05:16→05:19)
[2017-02-03] MEDS: AA 4.25%/CALCIUM/LYTES/D5W 1,000 ML IV SCH ×2 (05:39→10:00)
[2017-02-03] MEDS: MEROPENEM 1 GM in IV NORMAL SALINE 100ML 100 ML IV SCH ×3 (05:39→22:17)
[2017-02-03] MEDS: HYDROCORTISONE SOD SUCC/PF 100 MG/2 ML VIAL. IV SCH ×3 (05:39→20:25)
--- NOTE | 2017-02-03 07:57 | PDOC ---
Infectious Disease Note Subjective Subjective pt feeling better, back to his baseline ROS ROS GEN: Denies fevers, chills, sweats HEENT: Denies blurred vision, sore throat CV: Denies chest pain RESP: Denies shortness of air, cough GI: Denies n/v/d NEURO: Denies confusion, dizziness MSK: Denies weakness, joint pain/swelling Vital Sign Vital Signs Vital Signs Date Time Temp Pulse Resp B/P Pulse Ox O2 Delivery O2 Flow Rate FiO2 02/03/17 07:43 Nasal Cannula 2.0 02/03/17 07:16 95 16 110/65 95 02/03/17 04:00 97.4 97.4 Physical Exam PHYSICAL EXAM GENERAL: NAD, Alert, NG in place HEENT: PERRL, OC/OP NECK: Supple, no JVD, no LN LUNGS: Clear HEART: S1S2, no gallop, no murmur ABD: Soft, NT, no organomegaly, no rebound, incision looks ok EXT: No edema, no cyanosis RESIDENTIAL SERVICE TECHNICIAN: Alert, oriented x 3, no focal neurologic deficit SKIN: No rash IV: ok Labs Lab Laboratory Tests Test 02/02/17 08:20 02/03/17 04:12 O2 Saturation 94% (92-99) Arterial Blood pH 7.48 (7.35-7.45) Arterial Blood pCO2 at Patient Temp 28mmHg (35-46) Arterial Blood pO2 at Patient Temp 71mmHg (65-108) Arterial Blood HCO3 21mmol/L (21-28) Arterial Blood Base Excess -2mmol/L (-3-3) FiO2 2 lpm nc White Blood Count 14.2x10^3/uL (4.0-11.0) Red Blood Count 3.64x10^6/uL (4.30-5.70) Hemoglobin 12.2g/dL (13.0-17.5) Hematocrit 36.8% (39.0-53.0) Mean Corpuscular Volume 101fL (79-100) Mean Corpuscular Hemoglobin 33pg (25-35) Mean Corpuscular Hemoglobin Concent 33g/dL (31-37) Red Cell Distribution Width 14.5% (11.5-14.5) Platelet Count 274x10^3/uL (140-400) Neutrophils (%) (Auto) 85% (31-73) Lymphocytes (%) (Auto) 7% (24-48) Monocytes (%) (Auto) 7% (0-9) Eosinophils (%) (Auto) 0% (0-3) Basophils (%) (Auto) 1% (0-3) Neutrophils # (Auto) 12.1x10^3uL (1.8-7.7) Lymphocytes # (Auto) 1.0x10^3/uL (1.0-4.8) Monocytes # (Auto) 1.0x10^3/uL (0.0-1.1) Eosinophils # (Auto) 0.0x10^3/uL (0.0-0.7) Basophils # (Auto) 0.1x10^3/uL (0.0-0.2) Sodium Level 142mmol/L (136-145) Potassium Level 3.9mmol/L (3.5-5.1) Chloride Level 108mmol/L (98-107) Carbon Dioxide Level 26mmol/L (21-32) Anion Gap 8 (6-14) Blood Urea Nitrogen 26mg/dL (8-26) Creatinine 0.9mg/dL (0.7-1.3) Estimated GFR (Cockcroft-Gault) 83.2 Glucose Level 116mg/dL (70-99) Calcium Level 8.4mg/dL (8.5-10.1) Phosphorus Level 3.1mg/dL (2.6-4.7) Albumin 1.4g/dL (3.4-5.0) Vancomycin Level Trough 14.1mcg/mL (10.0-20.0) Vancomycin Last Dose Date 02/02/17 Vancomycin Last Dose Time 1700 Micro ANAEROBIC-AEROBIC CULTURE Preliminary Preliminary report ANAEROBIC RES 1 PENDING ANAEROBIC RES 2 Preliminary Bacteroides fragilis Heavy growth Beta lactamase positive. Performed at: [facility] [address] [place], [place] [id number] Delivery Table Operator: Preethi Nguyen MD, Phone: [phone] AEROBIC CULT Final Final report AEROBIC RES 1 Final Comment Streptococcus bovis group Heavy growth AEROBIC RES 2 Final Comment Haemophilus parainfluenzae Heavy growth Beta lactamase negative. AEROBIC RES 3 Final Mixed site kale. Objective Assessment Perforated colon s/p surgery Peritonitis Sepsis with hypotension Crohns disease on remicaid Recent pneumonia smoker Plan Plan of Care d/c vanc, cont rest supportive care d/w family KELSIE CANTU MD Feb 03, 2017 07:57
[2017-02-03] MEDS: ENOXAPARIN 40 MG/0.4 ML SYRINGE. SQ SCH (08:19)
[2017-02-03] MEDS: FAMOTIDINE 20 MG/2 ML VIAL IVP SCH ×2 (08:20→20:28)
[2017-02-03] MEDS: DIGOXIN 500 MCG/2 ML AMPUL. IV SCH (08:21)
[2017-02-03] MEDS: MULTIVIT INFUSN,ADULT 4,VIT K 10 ML, FOLIC ACID 1 MG, THIAMINE 100 MG in IV DEXTROSE 5 ... IV SCH (08:22)
[2017-02-03] MEDS: IPRATROPIUM BROMIDE 0.5 MG/2.5 ML NEBU. NEB SCH ×4 (08:24→19:47)
[2017-02-03] MEDS: BUDESONIDE 0.5 MG/2 ML NEBU. NEB SCH ×2 (08:24→19:41)
--- NOTE | 2017-02-03 08:51 | PDOC ---
PULMONARY PROGRESS NOTES Subjective NO soa Vitals Vital Signs Date Time Temp Pulse Resp B/P Pulse Ox O2 Delivery O2 Flow Rate FiO2 02/03/17 08:27 95 Nasal Cannula 2.0 02/03/17 08:21 76 114/74 02/03/17 07:16 16 02/03/17 04:00 97.4 97.4 General: No acute distress Lungs: Other (decrease bs bases) Cardiovascular: S1 Abdomen: Soft, Other (NT) Neuro Exam: Alert Extremities: No Edema Skin: Warm Labs Laboratory Tests Test 02/01/17 10:57 02/02/17 04:25 02/02/17 08:20 02/03/17 04:12 Lactic Acid Level 1.0mmol/L (0.4-2.0) White Blood Count 11.9x10^3/uL (4.0-11.0) 14.2x10^3/uL (4.0-11.0) Red Blood Count 3.84x10^6/uL (4.30-5.70) 3.64x10^6/uL (4.30-5.70) Hemoglobin 13.1g/dL (13.0-17.5) 12.2g/dL (13.0-17.5) Hematocrit 39.9% (39.0-53.0) 36.8% (39.0-53.0) Mean Corpuscular Volume 104fL (79-100) 101fL (79-100) Mean Corpuscular Hemoglobin 34pg (25-35) 33pg (25-35) Mean Corpuscular Hemoglobin Concent 33g/dL (31-37) 33g/dL (31-37) Red Cell Distribution Width 14.8% (11.5-14.5) 14.5% (11.5-14.5) Platelet Count 211x10^3/uL (140-400) 274x10^3/uL (140-400) Neutrophils (%) (Auto) 82% (31-73) 85% (31-73) Lymphocytes (%) (Auto) 9% (24-48) 7% (24-48) Monocytes (%) (Auto) 9% (0-9) 7% (0-9) Eosinophils (%) (Auto) 0% (0-3) 0% (0-3) Basophils (%) (Auto) 0% (0-3) 1% (0-3) Neutrophils # (Auto) 9.8x10^3uL (1.8-7.7) 12.1x10^3uL (1.8-7.7) Lymphocytes # (Auto) 1.0x10^3/uL (1.0-4.8) 1.0x10^3/uL (1.0-4.8) Monocytes # (Auto) 1.1x10^3/uL (0.0-1.1) 1.0x10^3/uL (0.0-1.1) Eosinophils # (Auto) 0.0x10^3/uL (0.0-0.7) 0.0x10^3/uL (0.0-0.7) Basophils # (Auto) 0.0x10^3/uL (0.0-0.2) 0.1x10^3/uL (0.0-0.2) Sodium Level 141mmol/L (136-145) 142mmol/L (136-145) Potassium Level 3.6mmol/L (3.5-5.1) 3.9mmol/L (3.5-5.1) Chloride Level 106mmol/L (98-107) 108mmol/L (98-107) Carbon Dioxide Level 26mmol/L (21-32) 26mmol/L (21-32) Anion Gap 9 (6-14) 8 (6-14) Blood Urea Nitrogen 20mg/dL (8-26) 26mg/dL (8-26) Creatinine 0.9mg/dL (0.7-1.3) 0.9mg/dL (0.7-1.3) Estimated GFR (Cockcroft-Gault) 83.2 83.2 Glucose Level 141mg/dL (70-99) 116mg/dL (70-99) Calcium Level 8.4mg/dL (8.5-10.1) 8.4mg/dL (8.5-10.1) Phosphorus Level 2.8mg/dL (2.6-4.7) 3.1mg/dL (2.6-4.7) Albumin 1.5g/dL (3.4-5.0) 1.4g/dL (3.4-5.0) O2 Saturation 94% (92-99) Arterial Blood pH 7.48 (7.35-7.45) Arterial Blood pCO2 at Patient Temp 28mmHg (35-46) Arterial Blood pO2 at Patient Temp 71mmHg (65-108) Arterial Blood HCO3 21mmol/L (21-28) Arterial Blood Base Excess -2mmol/L (-3-3) FiO2 2 lpm nc Vancomycin Level Trough 14.1mcg/mL (10.0-20.0) Vancomycin Last Dose Date 02/02/17 Vancomycin Last Dose Time 1700 Laboratory Tests Test 02/03/17 04:12 White Blood Count 14.2x10^3/uL (4.0-11.0) Red Blood Count 3.64x10^6/uL (4.30-5.70) Hemoglobin 12.2g/dL (13.0-17.5) Hematocrit 36.8% (39.0-53.0) Mean Corpuscular Volume 101fL (79-100) Mean Corpuscular Hemoglobin 33pg (25-35) Mean Corpuscular Hemoglobin Concent 33g/dL (31-37) Red Cell Distribution Width 14.5% (11.5-14.5) Platelet Count 274x10^3/uL (140-400) Neutrophils (%) (Auto) 85% (31-73) Lymphocytes (%) (Auto) 7% (24-48) Monocytes (%) (Auto) 7% (0-9) Eosinophils (%) (Auto) 0% (0-3) Basophils (%) (Auto) 1% (0-3) Neutrophils # (Auto) 12.1x10^3uL (1.8-7.7) Lymphocytes # (Auto) 1.0x10^3/uL (1.0-4.8) Monocytes # (Auto) 1.0x10^3/uL (0.0-1.1) Eosinophils # (Auto) 0.0x10^3/uL (0.0-0.7) Basophils # (Auto) 0.1x10^3/uL (0.0-0.2) Sodium Level 142mmol/L (136-145) Potassium Level 3.9mmol/L (3.5-5.1) Chloride Level 108mmol/L (98-107) Carbon Dioxide Level 26mmol/L (21-32) Anion Gap 8 (6-14) Blood Urea Nitrogen 26mg/dL (8-26) Creatinine 0.9mg/dL (0.7-1.3) Estimated GFR (Cockcroft-Gault) 83.2 Glucose Level 116mg/dL (70-99) Calcium Level 8.4mg/dL (8.5-10.1) Phosphorus Level 3.1mg/dL (2.6-4.7) Albumin 1.4g/dL (3.4-5.0) Vancomycin Level Trough 14.1mcg/mL (10.0-20.0) Vancomycin Last Dose Date 02/02/17 Vancomycin Last Dose Time 1700 Medications Active Scripts Medications Dose Route/Sig Days Date Category Remicade (Infliximab) 100 Mg Vial 100 Mg IV Q8HRS 01/26/17 Reported Impression . 1. Acute hypoxemic respiratory failure, multifactorial in etiology. 2. Septic shock secondary to peritonitis and pneumonia. on low dose levo 3. Abnormal chest x-ray with moderate post-op atelectasis 4. encephalopathy, improved 5. Hypokalemia. 6. Status post colon rupture and colostomy. 8. Alcohol withdrawal. 9. Smoker, probable chronic obstructive pulmonary disease. 10. Crohn disease. 11. History of atrial fibrillation. Plan . Pt doing better ok to transfer out of ICU 1. Nasal canula 2. Titrate FiO2 to keep O2 saturation 92%. 3. off BiPAP 4. s/p IV fluids, 5. Continue Lovenox for DVT prophylaxis. 6. Pepcid for stress ulcer prophylaxis. 7. Continue antibiotic. ID is on the case. 8. Solu-Cortef. 9. inhaled corticosteroid. 10. bronchodilator Atrovent only. H 11. wean off Precedex 12. I will discuss the findings and recommendations with RN 13. Negative lower extremity venous Doppler. 14. aggressive IS NAILA DUDLEY MD Feb 03, 2017 08:51
--- NOTE | 2017-02-03 09:25 | PDOC ---
MONYDELANEY GIRALDO PHANI 02/03/17 0924: CARDIO Progress Notes Date and Time Date of Service 02/03/17 Time of Evaluation 0920 Subjective Subjective: No Chest Pain, No shortness of breath, Other (fatigued, wanting to sleep) Comments: no acute events overnight; at bedside Vitals Vitals Vital Signs Date Time Temp Pulse Resp B/P Pulse Ox O2 Delivery O2 Flow Rate FiO2 02/03/17 09:16 90 20 121/77 93 Nasal Cannula 2.0 02/03/17 08:00 97.8 97.8 Weight Weight [ ] Input and Output Intake and Output Intake and Output 02/03/17 07:00 Intake Total 3255 ml Output Total 2010 ml Balance 1245 ml Intake Oral 90 ml IV Total 3165 ml Output Urine Total 1150 ml Gastric Drainage Total 850 ml Drainage Total 10 ml Laboratory Labs Laboratory Tests Test 02/03/17 04:12 White Blood Count 14.2x10^3/uL (4.0-11.0) Red Blood Count 3.64x10^6/uL (4.30-5.70) Hemoglobin 12.2g/dL (13.0-17.5) Hematocrit 36.8% (39.0-53.0) Mean Corpuscular Volume 101fL (79-100) Mean Corpuscular Hemoglobin 33pg (25-35) Mean Corpuscular Hemoglobin Concent 33g/dL (31-37) Red Cell Distribution Width 14.5% (11.5-14.5) Platelet Count 274x10^3/uL (140-400) Neutrophils (%) (Auto) 85% (31-73) Lymphocytes (%) (Auto) 7% (24-48) Monocytes (%) (Auto) 7% (0-9) Eosinophils (%) (Auto) 0% (0-3) Basophils (%) (Auto) 1% (0-3) Neutrophils # (Auto) 12.1x10^3uL (1.8-7.7) Lymphocytes # (Auto) 1.0x10^3/uL (1.0-4.8) Monocytes # (Auto) 1.0x10^3/uL (0.0-1.1) Eosinophils # (Auto) 0.0x10^3/uL (0.0-0.7) Basophils # (Auto) 0.1x10^3/uL (0.0-0.2) Sodium Level 142mmol/L (136-145) Potassium Level 3.9mmol/L (3.5-5.1) Chloride Level 108mmol/L (98-107) Carbon Dioxide Level 26mmol/L (21-32) Anion Gap 8 (6-14) Blood Urea Nitrogen 26mg/dL (8-26) Creatinine 0.9mg/dL (0.7-1.3) Estimated GFR (Cockcroft-Gault) 83.2 Glucose Level 116mg/dL (70-99) Calcium Level 8.4mg/dL (8.5-10.1) Phosphorus Level 3.1mg/dL (2.6-4.7) Albumin 1.4g/dL (3.4-5.0) Vancomycin Level Trough 14.1mcg/mL (10.0-20.0) Vancomycin Last Dose Date 02/02/17 Vancomycin Last Dose Time 1700 Microbiology Micro Microbiology 02/01/17 Blood Culture - Preliminary, Resulted NO GROWTH AFTER 1 DAY 01/26/17 Gram Stain - Final, Complete Physical Exam HEENT: Neck Supple W Full Motion, Other (Rt nare NG) Chest: Symmetric LUNGS: Other (diminished bases ) Heart: S1S2, irregularly irregular (tele AFIB rate 80-85) Abdomen: Other (colostomy, abdominal tenderness, RLQ drain intact) Extremities: 2+ Dorsalis Pedis, No Edema, No Calf Tenderness Neurology: alert, oriented, follow commands, confused (intermittent ) Assessment Assessment 1. Atrial fibrillation with RVR 2. Perforated viscus, s/p resection with end colostomy 3. Crohn's Dx 4. Acute respiratory failure 5. Leukocytosis 6. Pneumonia 7. Peritonitis 8. Sepsis with hypotension; off pressors 9. Metabolic encephalopathy Recommendations Remains NPO this morning; continue IV dig for rate control okay to start OAC per surgery; will start Eliquis when able to take PO. Continue Lovenox for stroke prevention for now. Supportive care Continue post-op management per surgical team KATIE PARK MD 02/03/17 2905: CARDIO Progress Notes Plan Plan Pt. seen and examined. 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 No acute events overnight. Continues to struggle from GI issues. HR controlled Eliquis when taking p.o supportive care. MONY,DELANEY LOSS PREVENTION LEAD Feb 03, 2017 09:24 KATIE PARK MD Feb 03, 2017 18:15
[2017-02-03] MEDS: NICOTINE 21MG PATCH. TD SCH (09:34)
--- NOTE | 2017-02-03 11:19 | PDOC ---
SURGICAL PROGRESS NOTE Subjective would like some pudding had some bilious emesis earlier, NG now patent Vital Signs Vital Signs Date Time Temp Pulse Resp B/P Pulse Ox O2 Delivery O2 Flow Rate FiO2 02/03/17 11:00 78 12 119/65 95 Nasal Cannula 2.0 02/03/17 08:00 97.8 97.8 I&O Intake and Output 02/03/17 07:00 Intake Total 3255 ml Output Total 2010 ml Balance 1245 ml Intake Oral 90 ml IV Total 3165 ml Output Urine Total 1150 ml Gastric Drainage Total 850 ml Drainage Total 10 ml PATIENT HAS A YANCEY: Yes (critical I and O) General: Alert, Cooperative, No acute distress Abdomen: Soft, Other (stoma pink, functioning) Labs Laboratory Tests Test 02/02/17 04:25 02/02/17 08:20 02/03/17 04:12 White Blood Count 11.9x10^3/uL (4.0-11.0) 14.2x10^3/uL (4.0-11.0) Red Blood Count 3.84x10^6/uL (4.30-5.70) 3.64x10^6/uL (4.30-5.70) Hemoglobin 13.1g/dL (13.0-17.5) 12.2g/dL (13.0-17.5) Hematocrit 39.9% (39.0-53.0) 36.8% (39.0-53.0) Mean Corpuscular Volume 104fL (79-100) 101fL (79-100) Mean Corpuscular Hemoglobin 34pg (25-35) 33pg (25-35) Mean Corpuscular Hemoglobin Concent 33g/dL (31-37) 33g/dL (31-37) Red Cell Distribution Width 14.8% (11.5-14.5) 14.5% (11.5-14.5) Platelet Count 211x10^3/uL (140-400) 274x10^3/uL (140-400) Neutrophils (%) (Auto) 82% (31-73) 85% (31-73) Lymphocytes (%) (Auto) 9% (24-48) 7% (24-48) Monocytes (%) (Auto) 9% (0-9) 7% (0-9) Eosinophils (%) (Auto) 0% (0-3) 0% (0-3) Basophils (%) (Auto) 0% (0-3) 1% (0-3) Neutrophils # (Auto) 9.8x10^3uL (1.8-7.7) 12.1x10^3uL (1.8-7.7) Lymphocytes # (Auto) 1.0x10^3/uL (1.0-4.8) 1.0x10^3/uL (1.0-4.8) Monocytes # (Auto) 1.1x10^3/uL (0.0-1.1) 1.0x10^3/uL (0.0-1.1) Eosinophils # (Auto) 0.0x10^3/uL (0.0-0.7) 0.0x10^3/uL (0.0-0.7) Basophils # (Auto) 0.0x10^3/uL (0.0-0.2) 0.1x10^3/uL (0.0-0.2) Sodium Level 141mmol/L (136-145) 142mmol/L (136-145) Potassium Level 3.6mmol/L (3.5-5.1) 3.9mmol/L (3.5-5.1) Chloride Level 106mmol/L (98-107) 108mmol/L (98-107) Carbon Dioxide Level 26mmol/L (21-32) 26mmol/L (21-32) Anion Gap 9 (6-14) 8 (6-14) Blood Urea Nitrogen 20mg/dL (8-26) 26mg/dL (8-26) Creatinine 0.9mg/dL (0.7-1.3) 0.9mg/dL (0.7-1.3) Estimated GFR (Cockcroft-Gault) 83.2 83.2 Glucose Level 141mg/dL (70-99) 116mg/dL (70-99) Calcium Level 8.4mg/dL (8.5-10.1) 8.4mg/dL (8.5-10.1) Phosphorus Level 2.8mg/dL (2.6-4.7) 3.1mg/dL (2.6-4.7) Albumin 1.5g/dL (3.4-5.0) 1.4g/dL (3.4-5.0) O2 Saturation 94% (92-99) Arterial Blood pH 7.48 (7.35-7.45) Arterial Blood pCO2 at Patient Temp 28mmHg (35-46) Arterial Blood pO2 at Patient Temp 71mmHg (65-108) Arterial Blood HCO3 21mmol/L (21-28) Arterial Blood Base Excess -2mmol/L (-3-3) FiO2 2 lpm nc Vancomycin Level Trough 14.1mcg/mL (10.0-20.0) Vancomycin Last Dose Date 02/02/17 Vancomycin Last Dose Time 1700 Laboratory Tests Test 02/03/17 04:12 White Blood Count 14.2x10^3/uL (4.0-11.0) Red Blood Count 3.64x10^6/uL (4.30-5.70) Hemoglobin 12.2g/dL (13.0-17.5) Hematocrit 36.8% (39.0-53.0) Mean Corpuscular Volume 101fL (79-100) Mean Corpuscular Hemoglobin 33pg (25-35) Mean Corpuscular Hemoglobin Concent 33g/dL (31-37) Red Cell Distribution Width 14.5% (11.5-14.5) Platelet Count 274x10^3/uL (140-400) Neutrophils (%) (Auto) 85% (31-73) Lymphocytes (%) (Auto) 7% (24-48) Monocytes (%) (Auto) 7% (0-9) Eosinophils (%) (Auto) 0% (0-3) Basophils (%) (Auto) 1% (0-3) Neutrophils # (Auto) 12.1x10^3uL (1.8-7.7) Lymphocytes # (Auto) 1.0x10^3/uL (1.0-4.8) Monocytes # (Auto) 1.0x10^3/uL (0.0-1.1) Eosinophils # (Auto) 0.0x10^3/uL (0.0-0.7) Basophils # (Auto) 0.1x10^3/uL (0.0-0.2) Sodium Level 142mmol/L (136-145) Potassium Level 3.9mmol/L (3.5-5.1) Chloride Level 108mmol/L (98-107) Carbon Dioxide Level 26mmol/L (21-32) Anion Gap 8 (6-14) Blood Urea Nitrogen 26mg/dL (8-26) Creatinine 0.9mg/dL (0.7-1.3) Estimated GFR (Cockcroft-Gault) 83.2 Glucose Level 116mg/dL (70-99) Calcium Level 8.4mg/dL (8.5-10.1) Phosphorus Level 3.1mg/dL (2.6-4.7) Albumin 1.4g/dL (3.4-5.0) Vancomycin Level Trough 14.1mcg/mL (10.0-20.0) Vancomycin Last Dose Date 02/02/17 Vancomycin Last Dose Time 1700 I have reviewed the following severely hypoalbuminemic Problem List Problems Medical Problems: (1) Perforated abdominal viscus Status: Acute Assessment/Plan POD 8 PICC TPN to floor OOB Problems: RON GROSS MD Feb 03, 2017 11:19
--- NOTE | 2017-02-03 11:20 | PDOC ---
PROGRESS NOTES Chief Complaint Chief Complaint Bowel perf ASSESSMENT AND PLAN: 1. SEVERE SEPSIS with ORGAN Dysfunction - new (02/01/17) 1. Colonic perforation: s/p emergent resection of splenic flexure with Paiz pouch on 01/26 2. Peritonitis, fecaloid material intra op 3. Crohn's: on remicade on O/p basis, i.e. immunosuppressed 4. VELVET: recovering. 5. Hyperkalemia: resolved 6. Aflutter: new. resolved (Transient) 6. Thrombocytopenia: resolved 7. Anemia, macrocytic: 8. Leukocytosis: reactive; 9. Agitation: personality vs EtOH W/D. 10. COugh 11. SMOker 12. METABOLIC ENCEPHALOPATHY new (01/30/17) History of Present Illness History of Present Illness Patient was laying in the bed, was awake, alert and oriented, NGT intermittent suction on, LASHAUN drain was in place, colostomy look healthy, family was at bedside. Pt. stated he is feeling better. Plan of care discussed with family, RN and surgeon. Vitals Vitals Vital Signs Date Time Temp Pulse Resp B/P Pulse Ox O2 Delivery O2 Flow Rate FiO2 02/03/17 11:00 78 12 119/65 95 Nasal Cannula 2.0 02/03/17 08:00 97.8 97.8 Physical Exam General: Alert, Oriented X3, Cooperative Heart: Other (irregular) Lungs: Other (decrease bs bases) Abdomen: Soft, Other (some dark liquid stool in the colostomy bag, NGT with moderate output and LASHAUN drains with minimal output) Extremities: No edema, Normal pulses Skin: No significant lesion Labs LABS Laboratory Tests Test 02/03/17 04:12 White Blood Count 14.2x10^3/uL (4.0-11.0) Red Blood Count 3.64x10^6/uL (4.30-5.70) Hemoglobin 12.2g/dL (13.0-17.5) Hematocrit 36.8% (39.0-53.0) Mean Corpuscular Volume 101fL (79-100) Mean Corpuscular Hemoglobin 33pg (25-35) Mean Corpuscular Hemoglobin Concent 33g/dL (31-37) Red Cell Distribution Width 14.5% (11.5-14.5) Platelet Count 274x10^3/uL (140-400) Neutrophils (%) (Auto) 85% (31-73) Lymphocytes (%) (Auto) 7% (24-48) Monocytes (%) (Auto) 7% (0-9) Eosinophils (%) (Auto) 0% (0-3) Basophils (%) (Auto) 1% (0-3) Neutrophils # (Auto) 12.1x10^3uL (1.8-7.7) Lymphocytes # (Auto) 1.0x10^3/uL (1.0-4.8) Monocytes # (Auto) 1.0x10^3/uL (0.0-1.1) Eosinophils # (Auto) 0.0x10^3/uL (0.0-0.7) Basophils # (Auto) 0.1x10^3/uL (0.0-0.2) Sodium Level 142mmol/L (136-145) Potassium Level 3.9mmol/L (3.5-5.1) Chloride Level 108mmol/L (98-107) Carbon Dioxide Level 26mmol/L (21-32) Anion Gap 8 (6-14) Blood Urea Nitrogen 26mg/dL (8-26) Creatinine 0.9mg/dL (0.7-1.3) Estimated GFR (Cockcroft-Gault) 83.2 Glucose Level 116mg/dL (70-99) Calcium Level 8.4mg/dL (8.5-10.1) Phosphorus Level 3.1mg/dL (2.6-4.7) Albumin 1.4g/dL (3.4-5.0) Vancomycin Level Trough 14.1mcg/mL (10.0-20.0) Vancomycin Last Dose Date 02/02/17 Vancomycin Last Dose Time 1700 Review of Systems Review of Systems Denies fever, chills Denies SOB, CP Stated feeling hungry NGT with intermittent suction on Colostomy bag with little green stool Awake, alert, oriented Assessment and Plan Assessmemt and Plan Assessment and Plan: 1. SEVERE SEPSIS with ORGAN Dysfunction - new (02/01/17) 1. Colonic perforation: s/p emergent resection of splenic flexure with Paiz pouch on 01/26 2. Peritonitis, fecaloid material intra op 3. Crohn's: on remicade on O/p basis, i.e. immunosuppressed 4. VELVET: recovering. 5. Hyperkalemia: resolved 6. Aflutter: new. resolved (Transient) 6. Thrombocytopenia: resolved 7. Anemia, macrocytic: 8. Leukocytosis: reactive; 9. Agitation: personality vs EtOH W/D. 10. COugh 11. SMOker 12. METABOLIC ENCEPHALOPATHY new (01/30/17) PLAN: Hope to d/c NGT soon when ok with surgery Benadryl 50 mg IV qhs for sleep Labs recheck in AM Accepted in [facility] but waiting for Surgery inputs Continue Clinimix Continue Banana bag daily BiPAP per pulmo recommendations Continue antibiotics per ID recommendations D/w RN and family Appreciate subspecialities inputs and recommendations Total time 31 minutes Problems Medical Problems: (1) Perforated abdominal viscus Status: Acute Problems: Comment Review of Relevant I have reviewed the following items manuel (where applicable) has been applied. Labs Laboratory Tests Test 02/02/17 04:25 02/02/17 08:20 02/03/17 04:12 White Blood Count 11.9x10^3/uL (4.0-11.0) 14.2x10^3/uL (4.0-11.0) Red Blood Count 3.84x10^6/uL (4.30-5.70) 3.64x10^6/uL (4.30-5.70) Hemoglobin 13.1g/dL (13.0-17.5) 12.2g/dL (13.0-17.5) Hematocrit 39.9% (39.0-53.0) 36.8% (39.0-53.0) Mean Corpuscular Volume 104fL (79-100) 101fL (79-100) Mean Corpuscular Hemoglobin 34pg (25-35) 33pg (25-35) Mean Corpuscular Hemoglobin Concent 33g/dL (31-37) 33g/dL (31-37) Red Cell Distribution Width 14.8% (11.5-14.5) 14.5% (11.5-14.5) Platelet Count 211x10^3/uL (140-400) 274x10^3/uL (140-400) Neutrophils (%) (Auto) 82% (31-73) 85% (31-73) Lymphocytes (%) (Auto) 9% (24-48) 7% (24-48) Monocytes (%) (Auto) 9% (0-9) 7% (0-9) Eosinophils (%) (Auto) 0% (0-3) 0% (0-3) Basophils (%) (Auto) 0% (0-3) 1% (0-3) Neutrophils # (Auto) 9.8x10^3uL (1.8-7.7) 12.1x10^3uL (1.8-7.7) Lymphocytes # (Auto) 1.0x10^3/uL (1.0-4.8) 1.0x10^3/uL (1.0-4.8) Monocytes # (Auto) 1.1x10^3/uL (0.0-1.1) 1.0x10^3/uL (0.0-1.1) Eosinophils # (Auto) 0.0x10^3/uL (0.0-0.7) 0.0x10^3/uL (0.0-0.7) Basophils # (Auto) 0.0x10^3/uL (0.0-0.2) 0.1x10^3/uL (0.0-0.2) Sodium Level 141mmol/L (136-145) 142mmol/L (136-145) Potassium Level 3.6mmol/L (3.5-5.1) 3.9mmol/L (3.5-5.1) Chloride Level 106mmol/L (98-107) 108mmol/L (98-107) Carbon Dioxide Level 26mmol/L (21-32) 26mmol/L (21-32) Anion Gap 9 (6-14) 8 (6-14) Blood Urea Nitrogen 20mg/dL (8-26) 26mg/dL (8-26) Creatinine 0.9mg/dL (0.7-1.3) 0.9mg/dL (0.7-1.3) Estimated GFR (Cockcroft-Gault) 83.2 83.2 Glucose Level 141mg/dL (70-99) 116mg/dL (70-99) Calcium Level 8.4mg/dL (8.5-10.1) 8.4mg/dL (8.5-10.1) Phosphorus Level 2.8mg/dL (2.6-4.7) 3.1mg/dL (2.6-4.7) Albumin 1.5g/dL (3.4-5.0) 1.4g/dL (3.4-5.0) O2 Saturation 94% (92-99) Arterial Blood pH 7.48 (7.35-7.45) Arterial Blood pCO2 at Patient Temp 28mmHg (35-46) Arterial Blood pO2 at Patient Temp 71mmHg (65-108) Arterial Blood HCO3 21mmol/L (21-28) Arterial Blood Base Excess -2mmol/L (-3-3) FiO2 2 lpm nc Vancomycin Level Trough 14.1mcg/mL (10.0-20.0) Vancomycin Last Dose Date 02/02/17 Vancomycin Last Dose Time 1700 Laboratory Tests Test 02/03/17 04:12 White Blood Count 14.2x10^3/uL (4.0-11.0) Red Blood Count 3.64x10^6/uL (4.30-5.70) Hemoglobin 12.2g/dL (13.0-17.5) Hematocrit 36.8% (39.0-53.0) Mean Corpuscular Volume 101fL (79-100) Mean Corpuscular Hemoglobin 33pg (25-35) Mean Corpuscular Hemoglobin Concent 33g/dL (31-37) Red Cell Distribution Width 14.5% (11.5-14.5) Platelet Count 274x10^3/uL (140-400) Neutrophils (%) (Auto) 85% (31-73) Lymphocytes (%) (Auto) 7% (24-48) Monocytes (%) (Auto) 7% (0-9) Eosinophils (%) (Auto) 0% (0-3) Basophils (%) (Auto) 1% (0-3) Neutrophils # (Auto) 12.1x10^3uL (1.8-7.7) Lymphocytes # (Auto) 1.0x10^3/uL (1.0-4.8) Monocytes # (Auto) 1.0x10^3/uL (0.0-1.1) Eosinophils # (Auto) 0.0x10^3/uL (0.0-0.7) Basophils # (Auto) 0.1x10^3/uL (0.0-0.2) Sodium Level 142mmol/L (136-145) Potassium Level 3.9mmol/L (3.5-5.1) Chloride Level 108mmol/L (98-107) Carbon Dioxide Level 26mmol/L (21-32) Anion Gap 8 (6-14) Blood Urea Nitrogen 26mg/dL (8-26) Creatinine 0.9mg/dL (0.7-1.3) Estimated GFR (Cockcroft-Gault) 83.2 Glucose Level 116mg/dL (70-99) Calcium Level 8.4mg/dL (8.5-10.1) Phosphorus Level 3.1mg/dL (2.6-4.7) Albumin 1.4g/dL (3.4-5.0) Vancomycin Level Trough 14.1mcg/mL (10.0-20.0) Vancomycin Last Dose Date 02/02/17 Vancomycin Last Dose Time 1700 Microbiology 02/01/17 Blood Culture - Preliminary, Resulted NO GROWTH AFTER 2 DAYS 01/26/17 Gram Stain - Final, Complete Medications Current Medications Sodium Chloride (Iv Sodium Chloride 0.9% 1000ml Bag) 1,000 ml @ 100 mls/hr Q10H IV Last administered on 01/25/17 22:11; Start 01/25/17 at 22:30; Stop at 08:29; Status DC Ondansetron HCl (Zofran) 4 mg 1X ONCE IV Last administered on 01/25/17 22:12 ; Start 01/25/17 at 22:30; Stop 01/25/17 at 22:31; Status DC Fentanyl Citrate (Fentanyl 2ml Vial) 75 mcg PRN Q15MIN PRN IV PAIN GREATER THAN 3/10 Last administered on 01/26/17 00:50; Start 01/25/17 at 22:00; Stop at 21:59; Status DC Fentanyl Citrate (Fentanyl 2ml Vial) 100 mcg 1X ONCE IV Last administered on 22:12; Start 01/25/17 at 22:30; Stop 01/25/17 at 22:31; Status DC Iohexol (Omnipaque 300 Mg/ml) 75 ml 1X ONCE IV Last administered on 01/25/17 23:55; Start 01/26/17 at 00:00; Stop 01/26/17 at 00:01; Status DC Info 1 each 1 each PRN DAILY PRN MC SEE COMMENTS; Start 01/25/17 at 23:45; Stop 01/27/17 at 23:44; Status DC Piperacillin Sod/ Tazobactam Sod 3.375 gm/Sodium Chloride 50 ml @ 100 mls/hr 1X ONCE IV Last administered on 01/26/17 00:56; Start 01/26/17 at 01:00; Stop 01/26/17 at 01:29; Status DC Sodium Chloride (Iv Sodium Chloride 0.9% 1000ml Bag) 1,000 ml @ 100 mls/hr 1X ONCE IV Last administered on 01/26/17 00:53; Start 01/26/17 at 01:00; Stop at 10:59; Status DC Hydromorphone HCl (Dilaudid) 1 mg 1X ONCE IV Last administered on 01/26/17 01 :33; Start 01/26/17 at 01:30; Stop 01/26/17 at 01:34; Status DC Hydromorphone HCl 1 mg 1 mg 1X ONCE IV ; Start 01/26/17 at 02:00; Stop at 02:01; Status DC Piperacillin Sod/ Tazobactam Sod/ Sodium Chloride (Zosyn/Iv Sodium Chloride 0.9 % 50ml) 50 ml @ 100 mls/hr 1X ONCE IV Last administered on 01/26/17 02:43; Start 01/26/17 at 02:00; Stop 01/26/17 at 02:29; Status DC Dexamethasone Sodium Phosphate (Decadron) 20 mg STK-MED ONCE .ROUTE ; Start at 02:00; Stop 01/26/17 at 02:01; Status DC Ondansetron HCl 4 mg 4 mg STK-MED ONCE .ROUTE ; Start 01/26/17 at 02:00; Stop at 02:01; Status DC Propofol (Diprivan) 20 ml @ As Directed STK-MED ONCE IV ; Start 01/26/17 at 02: 00; Stop 01/26/17 at 02:01; Status DC Lidocaine HCl 100 mg STK-MED ONCE .ROUTE ; Start 01/26/17 at 02:00; Stop at 02:01; Status DC Fentanyl Citrate (Fentanyl 2ml Vial) 100 mcg STK-MED ONCE .ROUTE ; Start at 02:00; Stop 01/26/17 at 02:01; Status DC Succinylcholine Chloride (Anectine) 200 mg STK-MED ONCE .ROUTE ; Start 01/26/17 at 02:00; Stop 01/26/17 at 02:01; Status DC Rocuronium [place] (Zemuron) 50 mg STK-MED ONCE .ROUTE ; Start 01/26/17 at 02:00 ; Stop 01/26/17 at 02:01; Status DC Ondansetron HCl (Zofran) 4 mg PRN Q6HRS PRN IV Nausea; Start 01/26/17 at 02:15 ; Stop 01/27/17 at 02:14; Status DC Fentanyl Citrate (Fentanyl 2ml Vial) 25 mcg PRN Q5MIN PRN IV MILD PAIN; Start 01/26/17 at 02:15; Stop 01/27/17 at 02:14; Status DC Fentanyl Citrate (Fentanyl 2ml Vial) 50 mcg PRN Q5MIN PRN IV MODERATE PAIN; Start 01/26/17 at 02:15; Stop 01/27/17 at 02:14; Status DC Morphine Sulfate 1 mg 1 mg PRN Q10MIN PRN IV SEVERE PAIN; Start 01/26/17 at 02: 15; Stop 01/27/17 at 02:14; Status DC Lactated Ringer's (Iv Lactated Ringers) 1,000 ml @ 30 mls/hr Q24H IV ; Start at 02:09; Stop 01/26/17 at 14:08; Status DC Lidocaine HCl 2 ml 1X PRN PRN ID IV START; Start 01/26/17 at 02:15; Stop at 02:14; Status DC Hydromorphone HCl (Dilaudid) 0.5 mg PRN Q10MIN PRN IV SEV PAIN,Second choice Last administered on 01/26/17t 06:29; Start 01/26/17 at 02:15; Stop 01/27/17 at 02:14; Status DC Prochlorperazine Edisylate 5 mg 5 mg PACU PRN PRN IV NAUSEA; Start 01/26/17 at 02:15; Stop 01/27/17 at 02:14; Status DC Bacitracin/Sodium Chloride (Iv Sodium Chloride 0.9% 500ml Bag) 500 ml @ 500 mls /hr 1X PERIOP ONCE IRR ; Start 01/26/17 at 03:00; Stop 01/26/17 at 03:59; Status DC Hydrocortisone Sodium Succinate (Solu-Cortef) 100 mg STK-MED ONCE .ROUTE ; Start 01/26/17 at 02:24; Stop 01/26/17 at 02:25; Status DC Sevoflurane (Ultane) 90 ml STK-MED ONCE IH ; Start 01/26/17 at 03:16; Stop 01/26 at 03:17; Status DC Phenylephrine HCl 1 mg STK-MED ONCE IV ; Start 01/26/17 at 03:17; Stop 01/26/17 at 03:18; Status DC Phenylephrine HCl (Bhargav-Synephrine Inj) 10 mg STK-MED ONCE .ROUTE ; Start at 03:32; Stop 01/26/17 at 03:33; Status DC Rocuronium [place] (Zemuron) 50 mg STK-MED ONCE .ROUTE ; Start 01/26/17 at 03:36 ; Stop 01/26/17 at 03:37; Status DC Cellulose 1 each STK-MED ONCE .ROUTE Last administered on 01/26/17t 02:47; Start 01/26/17 at 03:38; Stop 01/26/17 at 03:39; Status DC Glycopyrrolate (Robinul) 1 mg STK-MED ONCE .ROUTE ; Start 01/26/17 at 04:23; Stop 01/26/17 at 04:24; Status DC Neostigmine Methylsulfate 5 mg STK-MED ONCE .ROUTE ; Start 01/26/17 at 04:23; Stop 01/26/17 at 04:24; Status DC Sevoflurane (Ultane) 90 ml STK-MED ONCE IH ; Start 01/26/17 at 04:23; Stop 01/26 at 04:24; Status DC Esmolol HCl (Brevibloc) 100 mg STK-MED ONCE IV ; Start 01/26/17 at 04:28; Stop 01/26/17 at 04:29; Status DC Fentanyl Citrate 100 mcg 100 mcg STK-MED ONCE .ROUTE ; Start 01/26/17 at 05:09; Stop 01/26/17 at 05:10; Status DC Metronidazole (FLAGYL 500Mmg PREMIX) 100 ml @ 100 mls/hr Q12HR IV ; Start 01/26 at 09:00; Stop 01/26/17 at 09:00; Status DC Diphenhydramine HCl (Benadryl) 25 mg PRN Q6HRS PRN IV ITCHING Last administered on 01/31/17 11:44; Start 01/26/17 at 05:45 Famotidine (Pepcid) 20 mg BID IVP Last administered on 01/26/17 21:22; Start 01/26/17 at 09:00; Stop 01/27/17 at 08:10; Status DC Enoxaparin Sodium (Lovenox 40mg Syringe) 40 mg Q24H SQ Last administered on 08:48; Start 01/26/17 at 09:00; Stop 01/27/17 at 15:59; Status DC Sodium Chloride 3 ml 3 ml QSHIFT PRN IV AFTER MEDS AND BLOOD DRAWS; Start 01/26 at 05:45 Potassium Chloride/Sodium Chloride 1,000 ml @ 100 mls/hr Q10H IV Last administered on 01/26/17 21:24; Start 01/26/17 at 06:00; Stop 01/27/17 at 13:26 ; Status DC Hydromorphone HCl (Dilaudid Standard [employer]) 30 ml @ 0 mls/hr CONT PRN PRN IV PROTOCOL Last administered on 01/28/17 01:36; Start 01/26/17 at 05:45; Stop at 08:37; Status DC Hydromorphone HCl (Dilaudid) 1 mg PRN Q1HR PRN IV MODERATE PAIN Last administered on 01/31/17 23:58; Start 01/26/17 at 05:45 Ondansetron HCl (Zofran) 4 mg PRN Q6HRS PRN IV NAUESA, 1ST CHOICE Last administered on 01/30/17 14:08; Start 01/26/17 at 05:45 Throat Lozenges (Chloraseptic) 1 spray PRN Q2HR PRN PO SORE THROAT; Start 01/26 at 05:45 Throat Lozenges (Cepacol Sore Throat Lozenge) 1 west PRN Q2HRS PRN PO SORE THROAT; Start 01/26/17 at 05:45 Nicotine 1 patch 1 patch DAILY TD Last administered on 02/03/17 09:34; Start 01/26/17 at 09:00 Piperacillin Sod/ Tazobactam Sod/ Sodium Chloride (Zosyn/Iv Sodium Chloride 0.9 % 50ml) 50 ml @ 100 mls/hr Q6HRS IV Last administered on 02/01/17 12:48; Start 01/26/17 at 08:00; Stop 02/01/17 at 14:07; Status DC Vancomycin HCl 1 each 1 each PRN DAILY PRN MC SEE COMMENTS Last administered on 01/29/17 08:16; Start 01/26/17 at 07:45; Stop 01/30/17 at 09:19; Status DC Vancomycin HCl 2 gm/Sodium Chloride 500 ml @ 250 mls/hr 1X ONCE IV Last administered on 01/26/17 09:02; Start 01/26/17 at 08:00; Stop 01/26/17 at 09:59 ; Status DC Vancomycin HCl/ Sodium Chloride (Iv Sodium Chloride 0.9% 250ml) 250 ml @ 167 mls/hr Q12H IV Last administered on 01/26/17 21:22; Start 01/26/17 at 21:00; Stop 01/27/17 at 09:36; Status DC Vancomycin HCl 1 each 1X ONCE MC Last administered on 01/27/17 08:30; Start 01/27/17 at 08:30; Stop 01/27/17 at 08:31; Status DC Famotidine 20 mg 20 mg QHS IVP Last administered on 02/01/17 23:16; Start at 21:00; Stop 02/02/17 at 09:49; Status DC Vancomycin HCl/ Sodium Chloride (Iv Sodium Chloride 0.9% 250ml) 250 ml @ 167 mls/hr Q24H IV Last administered on 01/28/17 21:49; Start 01/27/17 at 22:00; Stop 01/28/17 at 23:00; Status DC Vancomycin HCl 1 each 1 each 1X ONCE MC Last administered on 01/28/17 21:30; Start 01/28/17 at 21:30; Stop 01/28/17 at 21:31; Status DC Diltiazem HCl 125 mg/Dextrose 125 ml @ 0 mls/hr CONT PRN IV SEE I/O RECORD Last administered on 01/27/17 23:12; Start 01/27/17 at 11:45; Stop 01/29/17 at 08:37; Status DC Sodium Chloride (Iv Sodium Chloride 0.45%) 1,000 ml @ 100 mls/hr 1X ONCE IV Last administered on 01/27/17 13:30; Start 01/27/17 at 13:30; Stop 01/27/17 at 23:29; Status DC Enoxaparin Sodium (Lovenox Per Pharmacy Treatment Dosing) 1 each PRN DAILY PRN MC SEE COMMENTS; Start 01/27/17 at 16:00; Stop 01/28/17 at 12:15; Status DC Enoxaparin Sodium 75 mg 75 mg Q12HR SQ Last administered on 01/28/17 09:07; Start 01/27/17 at 18:00; Stop 01/28/17 at 12:15; Status DC Magnesium Sulfate/ Dextrose 50 ml @ 25 mls/hr PRN DAILY PRN IV for Mag < 1.7 on am labs; Start 01/27/17 at 17:45; Stop 01/30/17 at 10:08; Status DC Sodium Chloride (Iv Sodium Chloride 0.9% 500ml Bag) 500 ml @ 0 mls/hr QID PRN IV For MAP < 65; Start 01/27/17 at 17:45; Stop 01/30/17 at 10:08; Status DC Info (Anti-Coagulation Monitoring By Pharmacy) 1 each PRN DAILY PRN MC SEE COMMENTS Last administered on 01/28/17 07:45; Start 01/28/17 at 07:45; Stop at 14:34; Status DC Enoxaparin Sodium 40 mg 40 mg Q24H SQ Last administered on 02/03/17 08:19; Start 01/29/17 at 09:00 Vancomycin HCl/ Sodium Chloride (Iv Sodium Chloride 0.9% 250ml) 250 ml @ 167 mls/hr Q12H IV Last administered on 01/29/17 21:45; Start 01/29/17 at 10:00; Stop 01/30/17 at 09:19; Status DC Vancomycin HCl 1 each 1X ONCE MC ; Start 01/30/17 at 09:30; Stop 01/30/17 at 09 :31; Status Cancel Oxycodone/ Acetaminophen (Percocet 10/325) 1 tab PRN Q4HRS PRN PO pain Last administered on 01/31/17 09:47; Start 01/29/17 at 08:45 Oxycodone/ Acetaminophen 1 tab 1 tab PRN Q4HRS PRN PO PAIN Last administered on 01/31/17 05:49; Start 01/29/17 at 08:45 Sodium Chloride (Iv Sodium Chloride 0.9% 1000ml Bag) 1,000 ml @ 75 mls/hr 1X ONCE IV Last administered on 01/30/17 09:25; Start 01/30/17 at 09:00; Stop at 22:19; Status DC Digoxin 250 mcg 250 mcg 1X ONCE IV Last administered on 01/30/17 09:25; Start 01/30/17 at 09:00; Stop 01/30/17 at 09:01; Status DC Amino Acids/ Electrolytes (Clinimix E 2.75%-5% Solution) 2,000 ml @ 80 mls/hr Q24H IV Last administered on 01/30/17 16:49; Start 01/30/17 at 15:00; Stop at 17:22; Status DC Haloperidol Lactate (Haldol) 5 mg PRN Q4HRS PRN IVP AGITATION Last administered on 01/31/17 05:12; Start 01/31/17 at 05:00 Digoxin 125 mcg 125 mcg DAILY IV Last administered on 02/03/17 08:21; Start at 10:00 Potassium Chloride 50 ml @ 50 mls/hr 1X ONCE IV ; Start 01/31/17 at 09:30; Stop 01/31/17 at 10:29; Status UNV Potassium Chloride (KCl Premix 10meq) 100 ml @ 100 mls/hr Q1H IV Last administered on 01/31/17 12:33; Start 01/31/17 at 09:45; Stop 01/31/17 at 11:44 ; Status DC Lorazepam 2 mg 2 mg PRN Q4HRS PRN IV ANXIETY / AGITATION Last administered on 15:30; Start 01/31/17 at 13:30 Multivitamins/ Folic Acid/ Thiamine HCl/ Dextrose/Sodium Chloride (Infuvite Adult/ Iv D5% - 1/2 NS) 1,011.2 ml @ 100 mls/ hr DAILY IV Last administered on 02/03/17 08:22; Start 01/31/17 at 15:30 Chlordiazepoxide 25 mg 25 mg PRN Q6HRS PRN PO ANXIETY / AGITATION Last administered on 01/31/17 14:27; Start 01/31/17 at 13:45 Amino Acids/ Electrolytes (Clinimix E 2.75%-5% Solution) 1,000 ml @ 80 mls/hr [id number] IV Last administered on 01/31/17 18:39; Start 01/31/17 at 17:22; Stop 02/01/17 at 07:53; Status DC Albuterol/ Ipratropium 3 ml 3 ml RTQID NEB ; Start 02/01/17 at 08:00; Stop 02/01 at 09:37; Status DC Amino Acids/ Electrolytes/ Dextrose 1,000 ml @ 80 mls/hr [id number] IV Last administered on 02/03/17 05:39; Start 02/01/17 at 08:00 Sodium Chloride (Iv Sodium Chloride 0.9% 1000ml Bag) 1,000 ml @ 1,000 mls/hr 1X ONCE IV Last administered on 02/01/17 10:04; Start 02/01/17 at 09:30; Stop 02/01/17 at 10:29; Status DC Budesonide 0.5 mg 0.5 mg RTBID NEB Last administered on 02/03/17 08:24; Start 02/01/17 at 09:30 Dexmedetomidine HCl 200 mcg/ Sodium Chloride 50 ml @ 0 mls/hr CONT PRN IV PER PROTOCOL Last administered on 02/01/17 23:17; Start 02/01/17 at 09:30 Sodium Chloride (Iv Sodium Chloride 0.9% 500ml Bag) 500 ml @ 500 mls/hr 1X PRN PRN IV SEE COMMENTS; Start 02/01/17 at 09:30 Atropine Sulfate 0.5 mg 0.5 mg PRN Q5MIN PRN IV SEE COMMENTS; Start 02/01/17 at 09:30 Sodium Chloride (Iv Sodium Chloride 0.9% 1000ml Bag) 1,000 ml @ 1,000 mls/hr 1X ONCE IV Last administered on 02/01/17 10:24; Start 02/01/17 at 09:30; Stop 02/01/17 at 10:29; Status DC Hydrocortisone Sodium Succinate (Solu-Cortef) 100 mg Q8HRS IV Last administered on 02/03/17 05:39; Start 02/01/17 at 09:45 Ipratropium [place] (Atrovent) 0.5 mg RTQID NEB Last administered on 02/03/17 08:24; Start 02/01/17 at 12:00 Vancomycin HCl 1 each 1 each PRN DAILY PRN MC SEE COMMENTS Last administered on 02/03/17 05:19; Start 02/01/17 at 13:15; Stop 02/03/17 at 07:57; Status DC Meropenem 1 gm/ Sodium Chloride 100 ml @ 200 mls/hr Q8HRS IV Last administered on 02/03/17 05:39; Start 02/01/17 at 14:00 Vancomycin HCl 1.75 gm/Sodium Chloride 500 ml @ 250 mls/hr 1X ONCE IV Last administered on 02/01/17 17:15; Start 02/01/17 at 15:00; Stop 02/01/17 at 16:59 ; Status DC Vancomycin HCl/ Sodium Chloride (Iv Sodium Chloride 0.9% 250ml) 250 ml @ 167 mls/hr Q12H IV Last administered on 02/02/17 16:41; Start 02/02/17 at 05:00; Stop 02/03/17 at 05:11; Status DC Vancomycin HCl 1 each 1 each 1X ONCE MC Last administered on 02/03/17 04:30; Start 02/03/17 at 04:30; Stop 02/03/17 at 04:31; Status DC Norepinephrine Bitartrate/Sodium Chloride (Levophed Vial/ Iv Sodium Chloride 0.9 % 250ml) 258 ml @ 0 mls/hr CONT PRN IV SEE I/O RECORD; Start 02/01/17 at 23:15 Famotidine 20 mg 20 mg Q12HR IVP Last administered on 02/03/17 08:20; Start at 11:00 Vancomycin HCl/ Sodium Chloride (Iv Sodium Chloride 0.9% 500ml Bag) 500 ml @ 250 mls/hr Q12H IV Last administered on 02/03/17 05:13; Start 02/03/17 at 05: 00; Stop 02/03/17 at 07:57; Status DC Vancomycin HCl 1 each 1X ONCE MC ; Start 02/04/17 at 16:30; Stop 02/04/17 at 16 :31; Status Cancel Active Scripts Active Reported Remicade (Infliximab) 100 Mg Vial 100 Mg IV Q8HRS Vitals/I & O Vital Sign - Last 24 Hours 02/02/17 02/02/17 02/02/17 02/02/17 12:00 12:00 12:02 13:00 Pulse 82 76 Resp 18 18 B/P 86/58 102/57 Pulse Ox 88 91 93 O2 Delivery Nasal Cannula Room Air Room Air Nasal Cannula O2 Flow Rate 2.0 2.0 02/02/17 02/02/17 02/02/17 02/02/17 14:02 15:05 16:00 16:00 Temp 97.8 97.8 Pulse 67 80 75 Resp 18 18 18 B/P 88/62 90/62 107/63 Pulse Ox 96 94 96 O2 Delivery Nasal Cannula Nasal Cannula Nasal Cannula Nasal Cannula O2 Flow Rate 2.0 2.0 2.0 2.0 02/02/17 02/02/17 02/02/17 02/02/17 16:52 17:00 18:00 19:00 Pulse 80 76 82 Resp 18 18 16 B/P 111/71 100/60 102/68 Pulse Ox 93 96 93 93 O2 Delivery Room Air Nasal Cannula Nasal Cannula Nasal Cannula O2 Flow Rate 2.0 2.0 2.0 02/02/17 02/02/17 02/02/17 02/02/17 20:00 20:00 20:40 20:41 Temp 97.5 97.5 Pulse 78 Resp 18 B/P 103/62 Pulse Ox 96 94 94 O2 Delivery Nasal Cannula Nasal Cannula Nasal Cannula Nasal Cannula O2 Flow Rate 2.0 2.0 2.0 2.0 02/02/17 02/02/17 02/02/17 02/03/17 21:00 22:00 23:00 00:00 Temp 97.4 97.4 Pulse 78 76 80 87 Resp 15 15 16 18 B/P 97/63 95/59 101/59 100/64 Pulse Ox 94 93 94 94 O2 Delivery Nasal Cannula Nasal Cannula Nasal Cannula Nasal Cannula O2 Flow Rate 2.0 2.0 2.0 2.0 02/03/17 02/03/17 02/03/17 02/03/17 00:00 01:00 02:00 03:00 Pulse 71 79 72 Resp 15 15 16 B/P 103/66 113/68 113/71 Pulse Ox 94 93 93 O2 Delivery Nasal Cannula Nasal Cannula Nasal Cannula Nasal Cannula O2 Flow Rate 2.0 2.0 2.0 2.0 02/03/17 02/03/17 02/03/17 02/03/17 04:00 04:00 05:00 06:00 Temp 97.4 97.4 Pulse 90 88 82 Resp 15 14 16 B/P 110/75 108/67 101/67 Pulse Ox 95 94 95 O2 Delivery Nasal Cannula Nasal Cannula Nasal Cannula Nasal Cannula O2 Flow Rate 2.0 2.0 2.0 2.0 02/03/17 02/03/17 02/03/17 02/03/17 07:16 07:43 08:00 08:21 Temp 97.8 97.8 Pulse 95 66 76 Resp 16 16 B/P 110/65 114/74 114/74 Pulse Ox 95 94 O2 Delivery Nasal Cannula Nasal Cannula Nasal Cannula O2 Flow Rate 2.0 2.0 2.0 02/03/17 02/03/17 02/03/17 02/03/17 08:27 09:16 09:57 11:00 Pulse 90 98 78 Resp 20 12 12 B/P 121/77 117/67 119/65 Pulse Ox 95 93 94 95 O2 Delivery Nasal Cannula Nasal Cannula Nasal Cannula Nasal Cannula O2 Flow Rate 2.0 2.0 2.0 2.0 Intake and Output 02/02/17 02/02/17 02/03/17 15:00 23:00 07:00 Intake Total 100 ml 2114 ml 1041 ml Output Total 300 ml 1105 ml 605 ml Balance -200 ml 1009 ml 436 ml CASTLE,NIAL K III DO Feb 03, 2017 11:20
[2017-02-03] MEDS: ALBUMIN HUMAN 25% 50 ML IV SCH ×2 (12:27→20:30)
[2017-02-03] MEDS: TPN PER PHARMACY MC PRN (13:16)
[2017-02-03] MEDS ORDERED: LIDOCAINE 1% / SOD BICARB 8.4% 20 ML VIAL. IJ ONE ×2 (15:29→15:45)
--- NOTE | 2017-02-03 16:23 | PDOC ---
Exam Dashboard Developer Dashboard Developer Jamshid Coal Washer Coal Washer Tatum Sharma Pre-Procedure Diagnosis Pre-Procedure Diagnosis 71 YO male s/p colon resection, with nausea and hypoalbuminemia. Picc requested by general surgery for TPN. Post-Procedure Diagnosis Post-Procedure Diagnosis Same Procedure Performed Procedure Performed Bedside ICU sono guided Power Picc insertion Type of Anesthesia Type of Anesthesia Local Estimated Blood Loss EBL: Minimal Drain/Tubes Drains/Tubes Right brachial vein 5F 2L 43cm Power Picc Condition of Patient Condition of Patient Stable. No apparent complication. Disposition Disposition PCXR revealed satisfactory position of power picc. OK to use power picc. Full report to follow. ESTRELLA CASTRO MD Feb 03, 2017 16:23
--- NOTE | 2017-02-03 16:24 | RAD ---
EXAM: Chest, single view. HISTORY: PICC line placement. COMPARISON: 02/01/2017. FINDINGS: A frontal view of the chest is obtained. There is a right PICC with the tip in the superior vena cava. No pneumothorax is seen. There are stable small right greater than left pleural effusions with lower lobe atelectasis or infiltrate. There is linear atelectasis within the left midlung. There is cardiomegaly. There is a nasogastric tube stranding within the distal esophagus.. IMPRESSION: 1. Right PICC with the tip in the superior vena cava. 2. Stable small bilateral pleural effusions with lower lobe predominant airspace disease, likely due to atelectasis or infiltrate. 3. Stable cardiomegaly. 4. Nasogastric tube within the distal esophagus. Tube advancement is recommended.
--- NOTE | 2017-02-03 16:43 | PDOC ---
PROGRESS NOTES Assessment Assessment Metabolic encephalopathy. Perforation of small bowel, s/p laparoscope. Hypotension events. Crohn's disease/ Peritonitis. Pneumonia ? RECOMMENDATIONS/PLAN: HCT on 01/31 was unremarkable. Continue medical and surgical treatment. Discussed with his son at bedside in ICU. PAST MEDICAL AND SURGICAL HISTORY: Please see H&P ALLERGY: Reviewed. MEDICATIONS: Refer to MAR REVIEW OF SYSTEMS: Constitutional: No malnutrition, cachexia. Head: No traumatic brain or head injury. Skin: No edema, or rash. Ear: No infection, tinnitus. Eyes: No vision loss, or diplopia. Nose: No bleeding or purulent discharges. Hearing: Hearing loss. Cardiac: No [place], arrhythmia Pulmonary: No CPOD. GI: Crohn's disease. Urinary/genital: UTI. Endocrine: No cousin face, craniofacial dysmorphism, polydactyly. Skeletomuscular: No muscular atrophy, deformity. Neurological: see HP. Psychiatric: Denies drug use/abuse. Otherwise, not [id number] review of systems. PHYSICAL EXAMINATION: General appearance in subacute distress. HEENT: Normocephalic and nontraumatic. Eyes, nose, ears, and throat are unremarkable. Hearing decrease. Neck is supple. No lymphadenopathy. No bruits are heard over the carotid artery. No Crepitus. Cardiovascular: S1, S2, regular rate and rhythm. Pulmonary: Clear to auscultation bilaterally. Abdomen: Bowel sounds are positive. . Extremities: No rash, lesions, or edema. No restriction of range of motion NEUROLOGICAL EXAMINATION: Awake. Sitting in chair. Oriented to time, place and person. PERRL. EOMI. CN: no focal findings. Muscle tone: within normal. Muscle strength: 4+ DTR: 2- Plantar reflex: Flexor response bilaterally Gait: not examined in chair. Sensory exam: no acute abnormal findings. No obvious cerebellar signs elicited. F-T-N test fine. Objective Objective Vital Signs Date Time Temp Pulse Resp B/P Pulse Ox O2 Delivery O2 Flow Rate FiO2 02/03/17 16:20 95 Nasal Cannula 2.0 02/03/17 16:00 97.3 87 16 107/73 97.3 Intake and Output 02/03/17 07:00 Intake Total 3255 ml Output Total 2010 ml Balance 1245 ml Intake Oral 90 ml IV Total 3165 ml Output Urine Total 1150 ml Gastric Drainage Total 850 ml Drainage Total 10 ml Vitals Signs Vitals VS - Last 72 Hours, by Label Date Time Temp Pulse Resp B/P Pulse Ox O2 Delivery O2 Flow Rate FiO2 02/03/17 16:20 95 Nasal Cannula 2.0 02/03/17 16:00 97.3 87 16 107/73 95 Nasal Cannula 2.0 97.3 02/03/17 12:10 95 Nasal Cannula 2.0 02/03/17 11:45 Nasal Cannula 2.0 02/03/17 11:00 78 12 119/65 95 Nasal Cannula 2.0 02/03/17 09:57 98 12 117/67 94 Nasal Cannula 2.0 02/03/17 09:16 90 20 121/77 93 Nasal Cannula 2.0 02/03/17 08:27 95 Nasal Cannula 2.0 02/03/17 08:21 76 114/74 02/03/17 08:00 97.8 66 16 114/74 94 Nasal Cannula 2.0 97.8 02/03/17 07:43 Nasal Cannula 2.0 02/03/17 07:16 95 16 110/65 95 Nasal Cannula 2.0 02/03/17 06:00 82 16 101/67 95 Nasal Cannula 2.0 02/03/17 05:00 88 14 108/67 94 Nasal Cannula 2.0 02/03/17 04:00 97.4 90 15 110/75 95 Nasal Cannula 2.0 97.4 02/03/17 04:00 Nasal Cannula 2.0 02/03/17 03:00 72 16 113/71 93 Nasal Cannula 2.0 02/03/17 02:00 79 15 113/68 93 Nasal Cannula 2.0 02/03/17 01:00 71 15 103/66 94 Nasal Cannula 2.0 02/03/17 00:00 Nasal Cannula 2.0 02/03/17 00:00 97.4 87 18 100/64 94 Nasal Cannula 2.0 97.4 02/02/17 23:00 80 16 101/59 94 Nasal Cannula 2.0 02/02/17 22:00 76 15 95/59 93 Nasal Cannula 2.0 02/02/17 21:00 78 15 97/63 94 Nasal Cannula 2.0 02/02/17 20:41 94 Nasal Cannula 2.0 02/02/17 20:40 94 Nasal Cannula 2.0 02/02/17 20:00 Nasal Cannula 2.0 02/02/17 20:00 97.5 78 18 103/62 96 Nasal Cannula 2.0 97.5 02/02/17 19:00 82 16 102/68 93 Nasal Cannula 2.0 02/02/17 18:00 76 18 100/60 93 Nasal Cannula 2.0 02/02/17 17:00 80 18 111/71 96 Nasal Cannula 2.0 02/02/17 16:52 93 Room Air 02/02/17 16:00 Nasal Cannula 2.0 02/02/17 16:00 97.8 75 18 107/63 96 Nasal Cannula 2.0 97.8 02/02/17 15:05 80 18 90/62 94 Nasal Cannula 2.0 02/02/17 14:02 67 18 88/62 96 Nasal Cannula 2.0 02/02/17 13:00 76 18 102/57 93 Nasal Cannula 2.0 02/02/17 12:02 91 Room Air 02/02/17 12:00 82 18 86/58 88 Room Air 02/02/17 12:00 Nasal Cannula 2.0 02/02/17 11:00 97.6 73 20 95/60 93 Room Air 97.6 02/02/17 10:00 65 20 107/66 93 Nasal Cannula 2.0 02/02/17 09:00 66 20 112/72 95 Nasal Cannula 2.0 02/02/17 08:59 73 115/75 02/02/17 08:26 96 Nasal Cannula 2.0 02/02/17 08:00 65 20 115/78 96 Nasal Cannula 2.0 02/02/17 07:40 Nasal Cannula 2.0 02/02/17 07:00 97.8 73 20 115/75 96 Nasal Cannula 2.0 97.8 Laboratory Laboratory Laboratory Tests Test 02/03/17 04:12 White Blood Count 14.2x10^3/uL (4.0-11.0) Red Blood Count 3.64x10^6/uL (4.30-5.70) Hemoglobin 12.2g/dL (13.0-17.5) Hematocrit 36.8% (39.0-53.0) Mean Corpuscular Volume 101fL (79-100) Mean Corpuscular Hemoglobin 33pg (25-35) Mean Corpuscular Hemoglobin Concent 33g/dL (31-37) Red Cell Distribution Width 14.5% (11.5-14.5) Platelet Count 274x10^3/uL (140-400) Neutrophils (%) (Auto) 85% (31-73) Lymphocytes (%) (Auto) 7% (24-48) Monocytes (%) (Auto) 7% (0-9) Eosinophils (%) (Auto) 0% (0-3) Basophils (%) (Auto) 1% (0-3) Neutrophils # (Auto) 12.1x10^3uL (1.8-7.7) Lymphocytes # (Auto) 1.0x10^3/uL (1.0-4.8) Monocytes # (Auto) 1.0x10^3/uL (0.0-1.1) Eosinophils # (Auto) 0.0x10^3/uL (0.0-0.7) Basophils # (Auto) 0.1x10^3/uL (0.0-0.2) Sodium Level 142mmol/L (136-145) Potassium Level 3.9mmol/L (3.5-5.1) Chloride Level 108mmol/L (98-107) Carbon Dioxide Level 26mmol/L (21-32) Anion Gap 8 (6-14) Blood Urea Nitrogen 26mg/dL (8-26) Creatinine 0.9mg/dL (0.7-1.3) Estimated GFR (Cockcroft-Gault) 83.2 Glucose Level 116mg/dL (70-99) Calcium Level 8.4mg/dL (8.5-10.1) Phosphorus Level 3.1mg/dL (2.6-4.7) Albumin 1.4g/dL (3.4-5.0) Vancomycin Level Trough 14.1mcg/mL (10.0-20.0) Vancomycin Last Dose Date 02/02/17 Vancomycin Last Dose Time 1700 Microbiology 02/01/17 Blood Culture - Preliminary, Resulted NO GROWTH AFTER 2 DAYS 01/26/17 Gram Stain - Final, Complete Medication Medications Current Medications Albumin Human (Albuminar) 50 ml @ 50 mls/hr Q6HRS IV Last administered on t 12:27; Start 02/03/17 at 12:00 Diphenhydramine HCl (Benadryl) 50 mg QHS IVP ; Start 02/03/17 at 21:00 Enoxaparin Sodium (Lovenox Per Pharmacy Treatment Dosing) 1 each PRN DAILY PRN MC SEE COMMENTS; Start 02/03/17 at 12:30 Enoxaparin Sodium 80 mg 80 mg Q12HR SQ ; Start 02/03/17 at 21:00 Heparin Sodium/ Sodium Chloride 60 unit 1X ONCE IV Last administered on 16:14; Start 02/03/17 at 15:45; Stop 02/03/17 at 15:46; Status DC Heparin Sodium/ Sodium Chloride 500 ml @ As Directed STK-MED ONCE .ROUTE ; Start 02/03/17 at 15:29; Stop 02/03/17 at 15:30; Status DC Info 1 each PRN DAILY PRN MC SEE COMMENTS Last administered on 02/03/17 13:16 ; Start 02/03/17 at 11:15 Lidocaine/Sodium Bicarbonate (Buffered Lidocaine 1%) 3 ml 1X ONCE IJ Last administered on 02/03/17 16:13; Start 02/03/17 at 15:45; Stop 02/03/17 at 15:46 ; Status DC Lidocaine/Sodium Bicarbonate 20 ml 20 ml STK-MED ONCE IJ ; Start 02/03/17 at 15: 29; Stop 02/03/17 at 15:30; Status DC Sodium Chloride/ Sodium Acetate/ Potassium Chloride/ Potassium Phosphate/ Magnesium Sulfate/ Calcium Gluconate/ Multivitamins/ Chromium/Copper/ Manganese/ Seleni/ Zn/Total Parenteral Nutrition/Amino Acids/Dextrose/ Fat Emulsion Intravenous (Sodium Chloride/ Potass... 1,512 ml @ 63 mls/hr TPN CONT IV ; Start 02/03/17 at 22:00; Stop 02/04/17 at 21:59 Vancomycin HCl 1 each 1 each 1X ONCE MC Last administered on 02/03/17 04:30; Start 02/03/17 at 04:30; Stop 02/03/17 at 04:31; Status DC Vancomycin HCl 1 each 1 each 1X ONCE MC ; Start 02/04/17 at 16:30; Stop at 16:31; Status Cancel Vancomycin HCl/ Sodium Chloride (Iv Sodium Chloride 0.9% 500ml Bag) 500 ml @ 250 mls/hr Q12H IV Last administered on 3/28/17at 05:13; Start 02/03/17 at 05: 00; Stop 02/03/17 at 07:57; Status DC Comment Review of Relevant I have reviewed the following items manuel (where applicable) has been applied. JORGE LUIS WISDOM MD Feb 03, 2017 16:43
[2017-02-03] MEDS: ENOXAPARIN ** NOTE DOSE ** SYRINGE SQ SCH (20:25)
[2017-02-03] MEDS: DIPHENHYDRAMINE 50 MG/ML VIAL IVP SCH (20:29)
[2017-02-03] MEDS ORDERED: AMINO ACIDS IV SCH ×11 (22:00)
[2017-02-03] MEDS ORDERED: DEXTROSE 70% IV SCH ×11 (22:00)
[2017-02-03] MEDS ORDERED: TOTAL PARENTERAL NUTRITION IV SCH ×11 (22:00)
[2017-02-03] MEDS ORDERED: [UNRECOGNIZED DRUG - OTHER] IV SCH ×11 (22:00)
--- NOTE | 2017-02-03 23:02 | RAD ---
PROCEDURE Abdomen radiograph. HISTORY NG tube placement. COMPARISON February 01, 2017. FINDINGS AP portable upright abdomen radiograph, 2 images sent. Esophagogastric tube is present with tip projecting at the lateral proximal body of the stomach. Laparotomy skin soraya are seen. Nonspecific bowel gas pattern is noted. There is evidence of a right pleural effusion. IMPRESSION Esophagogastric tube tip projects at the lateral proximal body of the stomach. Electronically signed by: Wilton Rm MD (Feb 03, 2017 23:01:24)
[2017-02-04] MEDS: ALBUMIN HUMAN 25% 50 ML IV SCH ×4 (01:12→18:20)
[2017-02-04 03:00] VITALS: BP 95/51
[2017-02-04] MEDS: HYDROCORTISONE SOD SUCC/PF 100 MG/2 ML VIAL. IV SCH ×2 (05:53→13:15)
[2017-02-04 06:01] LABS: BASO # 0.1 x10^3/uL (0.0-0.2); BASO % 1 % (0-3); EOS % 0 % (0-3); HEMATOCRIT 33.7 % (39.0-53.0); HEMOGLOBIN 11.3 g/dL (13.0-17.5); LYMPH # 1.1 x10^3/uL (1.0-4.8); LYMPH % 10 % (24-48); MEAN CORPUSCULAR HEMOGLOBIN 35 pg (25-35); MEAN CORPUSCULAR HGB CONC 34 g/dL (31-37); MEAN CORPUSCULAR VOLUME 103 fL (79-100); MONO % 9 % (0-9); NEUT % 80 % (31-73); PLATELET COUNT 250 x10^3/uL (140-400); RED BLOOD COUNT 3.26 x10^6/uL (4.30-5.70); RED CELL DISTRIBUTION WIDTH 14.3 % (11.5-14.5); WHITE BLOOD COUNT 10.3 x10^3/uL (4.0-11.0)
[2017-02-04 06:27] LABS: CALCIUM 8.5 mg/dL (8.5-10.1); CREATININE 0.9 mg/dL (0.7-1.3); GFR 83.2; POTASSIUM 3.8 mmol/L (3.5-5.1)
[2017-02-04] MEDS: MEROPENEM 1 GM in IV NORMAL SALINE 100ML 100 ML IV SCH (06:30)
[2017-02-04 06:34] LABS: MAGNESIUM 2.1 mg/dL (1.8-2.4); PHOSPHORUS 3.5 mg/dL (2.6-4.7)
[2017-02-04 07:00] VITALS: BP 104/69
--- NOTE | 2017-02-04 07:15 | RAD ---
Bedside ultrasound guided PICC placement Indication: 71-year-old male status post colon resection. Nausea. Hypoalbuminemia. Bedside PICC has been requested by general surgery for TPN. Anesthesia: Local only Sterility: All elements of maximal sterile barrier technique were utilized, including cap, mask, sterile gown, sterile gloves, large sterile sheet, appropriate hand hygiene, and 2% chlorhexidine for cutaneous antisepsis. Procedure: Informed consent was obtained from the patient. This procedure was performed bedside in ICU. Preliminary ultrasound examination of right upper arm revealed wide patency of right brachial vein, which was documented with a single hard copy ultrasound image. Right upper arm was then prepped and draped in the usual sterile fashion, utilizing all elements of maximal sterile barrier technique, as described above. Using aseptic technique, local anesthesia, direct ultrasound guidance, and the micropuncture system, successful percutaneous entry was achieved into right brachial vein at level of distal humerus. A 5 [place] dual-lumen Power PICC was trimmed to 43 cm in length, was inserted through a 5 [place] peel-away sheath, and was easily advanced centrally. The PICC was then demonstrated to flush and aspirate normally, and was secured at the skin exit site with suture and sterile dressing. Patient tolerated the procedure well, without complication. A STAT portable CXR was requested for line position. Impression: Successful, uneventful sono guided placement of right brachial vein 5 [place] dual-lumen 43 cm Power PICC, bedside in ICU, as described.
[2017-02-04] MEDS: IPRATROPIUM BROMIDE 0.5 MG/2.5 ML NEBU. NEB SCH ×4 (07:34→19:18)
[2017-02-04] MEDS: BUDESONIDE 0.5 MG/2 ML NEBU. NEB SCH (07:34)
--- NOTE | 2017-02-04 08:45 | PDOC ---
PULMONARY PROGRESS NOTES Subjective NO soa walking IS 1500 Vitals Vital Signs Date Time Temp Pulse Resp B/P Pulse Ox O2 Delivery O2 Flow Rate FiO2 02/04/17 07:36 94 Nasal Cannula 2.0 02/04/17 07:00 97.0 75 18 104/69 97.0 ROS: No Nausea, No Chest Pain, No Increase Cough General: No acute distress Lungs: Clear Cardiovascular: S1, S2 Abdomen: Soft, Other (NT) Neuro Exam: Alert Extremities: No Edema Skin: Warm Labs Laboratory Tests Test 02/03/17 04:12 02/04/17 05:45 White Blood Count 14.2x10^3/uL (4.0-11.0) 10.3x10^3/uL (4.0-11.0) Red Blood Count 3.64x10^6/uL (4.30-5.70) 3.26x10^6/uL (4.30-5.70) Hemoglobin 12.2g/dL (13.0-17.5) 11.3g/dL (13.0-17.5) Hematocrit 36.8% (39.0-53.0) 33.7% (39.0-53.0) Mean Corpuscular Volume 101fL (79-100) 103fL (79-100) Mean Corpuscular Hemoglobin 33pg (25-35) 35pg (25-35) Mean Corpuscular Hemoglobin Concent 33g/dL (31-37) 34g/dL (31-37) Red Cell Distribution Width 14.5% (11.5-14.5) 14.3% (11.5-14.5) Platelet Count 274x10^3/uL (140-400) 250x10^3/uL (140-400) Neutrophils (%) (Auto) 85% (31-73) 80% (31-73) Lymphocytes (%) (Auto) 7% (24-48) 10% (24-48) Monocytes (%) (Auto) 7% (0-9) 9% (0-9) Eosinophils (%) (Auto) 0% (0-3) 0% (0-3) Basophils (%) (Auto) 1% (0-3) 1% (0-3) Neutrophils # (Auto) 12.1x10^3uL (1.8-7.7) 8.2x10^3uL (1.8-7.7) Lymphocytes # (Auto) 1.0x10^3/uL (1.0-4.8) 1.1x10^3/uL (1.0-4.8) Monocytes # (Auto) 1.0x10^3/uL (0.0-1.1) 1.0x10^3/uL (0.0-1.1) Eosinophils # (Auto) 0.0x10^3/uL (0.0-0.7) 0.0x10^3/uL (0.0-0.7) Basophils # (Auto) 0.1x10^3/uL (0.0-0.2) 0.1x10^3/uL (0.0-0.2) Sodium Level 142mmol/L (136-145) 146mmol/L (136-145) Potassium Level 3.9mmol/L (3.5-5.1) 3.8mmol/L (3.5-5.1) Chloride Level 108mmol/L (98-107) 111mmol/L (98-107) Carbon Dioxide Level 26mmol/L (21-32) 28mmol/L (21-32) Anion Gap 8 (6-14) 7 (6-14) Blood Urea Nitrogen 26mg/dL (8-26) 26mg/dL (8-26) Creatinine 0.9mg/dL (0.7-1.3) 0.9mg/dL (0.7-1.3) Estimated GFR (Cockcroft-Gault) 83.2 83.2 Glucose Level 116mg/dL (70-99) 123mg/dL (70-99) Calcium Level 8.4mg/dL (8.5-10.1) 8.5mg/dL (8.5-10.1) Phosphorus Level 3.1mg/dL (2.6-4.7) 3.5mg/dL (2.6-4.7) Albumin 1.4g/dL (3.4-5.0) Vancomycin Level Trough 14.1mcg/mL (10.0-20.0) Vancomycin Last Dose Date 02/02/17 Vancomycin Last Dose Time 1700 Magnesium Level 2.1mg/dL (1.8-2.4) Triglycerides Level 129mg/dL (0-150) Laboratory Tests Test 02/04/17 05:45 White Blood Count 10.3x10^3/uL (4.0-11.0) Red Blood Count 3.26x10^6/uL (4.30-5.70) Hemoglobin 11.3g/dL (13.0-17.5) Hematocrit 33.7% (39.0-53.0) Mean Corpuscular Volume 103fL (79-100) Mean Corpuscular Hemoglobin 35pg (25-35) Mean Corpuscular Hemoglobin Concent 34g/dL (31-37) Red Cell Distribution Width 14.3% (11.5-14.5) Platelet Count 250x10^3/uL (140-400) Neutrophils (%) (Auto) 80% (31-73) Lymphocytes (%) (Auto) 10% (24-48) Monocytes (%) (Auto) 9% (0-9) Eosinophils (%) (Auto) 0% (0-3) Basophils (%) (Auto) 1% (0-3) Neutrophils # (Auto) 8.2x10^3uL (1.8-7.7) Lymphocytes # (Auto) 1.1x10^3/uL (1.0-4.8) Monocytes # (Auto) 1.0x10^3/uL (0.0-1.1) Eosinophils # (Auto) 0.0x10^3/uL (0.0-0.7) Basophils # (Auto) 0.1x10^3/uL (0.0-0.2) Sodium Level 146mmol/L (136-145) Potassium Level 3.8mmol/L (3.5-5.1) Chloride Level 111mmol/L (98-107) Carbon Dioxide Level 28mmol/L (21-32) Anion Gap 7 (6-14) Blood Urea Nitrogen 26mg/dL (8-26) Creatinine 0.9mg/dL (0.7-1.3) Estimated GFR (Cockcroft-Gault) 83.2 Glucose Level 123mg/dL (70-99) Calcium Level 8.5mg/dL (8.5-10.1) Phosphorus Level 3.5mg/dL (2.6-4.7) Magnesium Level 2.1mg/dL (1.8-2.4) Triglycerides Level 129mg/dL (0-150) Medications Active Scripts Medications Dose Route/Sig Days Date Category Remicade (Infliximab) 100 Mg Vial 100 Mg IV Q8HRS 01/26/17 Reported Impression . 1. Acute hypoxemic respiratory failure, multifactorial in etiology. 2. Septic shock secondary to peritonitis and pneumonia. on low dose levo 3. Abnormal chest x-ray with moderate post-op atelectasis 4. encephalopathy, improved 5. Hypokalemia. 6. Status post colon rupture and colostomy. 8. Alcohol withdrawal. 9. Smoker, probable chronic obstructive pulmonary disease. 10. Crohn disease. 11. History of atrial fibrillation. Plan . Pt doing better ok to transfer to rehab continue IS 02, nebs stop steroids NAILA DUDLEY MD Feb 04, 2017 08:45
[2017-02-04] MEDS: DIGOXIN 500 MCG/2 ML AMPUL. IV SCH (08:49)
[2017-02-04] MEDS: FAMOTIDINE 20 MG/2 ML VIAL IVP SCH ×2 (08:50→21:17)
[2017-02-04] MEDS: ENOXAPARIN ** NOTE DOSE ** SYRINGE SQ SCH ×2 (08:51→21:17)
[2017-02-04] MEDS: NICOTINE 21MG PATCH. TD SCH (08:51)
--- NOTE | 2017-02-04 09:10 | PDOC ---
SURGICAL PROGRESS NOTE Subjective seems oriented this AM after some confusion last noc was texting family asking for his clothes because he was staying at a [employer] house Vital Signs Vital Signs Date Time Temp Pulse Resp B/P Pulse Ox O2 Delivery O2 Flow Rate FiO2 02/04/17 08:49 75 104/69 02/04/17 07:36 94 Nasal Cannula 2.0 02/04/17 07:00 97.0 18 97.0 I&O Intake and Output 02/04/17 07:00 Output Total 1605 ml Balance -1605 ml Output Urine Total 1100 ml Gastric Drainage Total 500 ml Drainage Total 5 ml PATIENT HAS A YANCEY: No General: Alert, No acute distress Abdomen: Soft, Other (scant LASHAUN output, loose black stool in the ostomy bag) Labs Laboratory Tests Test 02/03/17 04:12 02/04/17 05:45 White Blood Count 14.2x10^3/uL (4.0-11.0) 10.3x10^3/uL (4.0-11.0) Red Blood Count 3.64x10^6/uL (4.30-5.70) 3.26x10^6/uL (4.30-5.70) Hemoglobin 12.2g/dL (13.0-17.5) 11.3g/dL (13.0-17.5) Hematocrit 36.8% (39.0-53.0) 33.7% (39.0-53.0) Mean Corpuscular Volume 101fL (79-100) 103fL (79-100) Mean Corpuscular Hemoglobin 33pg (25-35) 35pg (25-35) Mean Corpuscular Hemoglobin Concent 33g/dL (31-37) 34g/dL (31-37) Red Cell Distribution Width 14.5% (11.5-14.5) 14.3% (11.5-14.5) Platelet Count 274x10^3/uL (140-400) 250x10^3/uL (140-400) Neutrophils (%) (Auto) 85% (31-73) 80% (31-73) Lymphocytes (%) (Auto) 7% (24-48) 10% (24-48) Monocytes (%) (Auto) 7% (0-9) 9% (0-9) Eosinophils (%) (Auto) 0% (0-3) 0% (0-3) Basophils (%) (Auto) 1% (0-3) 1% (0-3) Neutrophils # (Auto) 12.1x10^3uL (1.8-7.7) 8.2x10^3uL (1.8-7.7) Lymphocytes # (Auto) 1.0x10^3/uL (1.0-4.8) 1.1x10^3/uL (1.0-4.8) Monocytes # (Auto) 1.0x10^3/uL (0.0-1.1) 1.0x10^3/uL (0.0-1.1) Eosinophils # (Auto) 0.0x10^3/uL (0.0-0.7) 0.0x10^3/uL (0.0-0.7) Basophils # (Auto) 0.1x10^3/uL (0.0-0.2) 0.1x10^3/uL (0.0-0.2) Sodium Level 142mmol/L (136-145) 146mmol/L (136-145) Potassium Level 3.9mmol/L (3.5-5.1) 3.8mmol/L (3.5-5.1) Chloride Level 108mmol/L (98-107) 111mmol/L (98-107) Carbon Dioxide Level 26mmol/L (21-32) 28mmol/L (21-32) Anion Gap 8 (6-14) 7 (6-14) Blood Urea Nitrogen 26mg/dL (8-26) 26mg/dL (8-26) Creatinine 0.9mg/dL (0.7-1.3) 0.9mg/dL (0.7-1.3) Estimated GFR (Cockcroft-Gault) 83.2 83.2 Glucose Level 116mg/dL (70-99) 123mg/dL (70-99) Calcium Level 8.4mg/dL (8.5-10.1) 8.5mg/dL (8.5-10.1) Phosphorus Level 3.1mg/dL (2.6-4.7) 3.5mg/dL (2.6-4.7) Albumin 1.4g/dL (3.4-5.0) Vancomycin Level Trough 14.1mcg/mL (10.0-20.0) Vancomycin Last Dose Date 02/02/17 Vancomycin Last Dose Time 1700 Magnesium Level 2.1mg/dL (1.8-2.4) Triglycerides Level 129mg/dL (0-150) Laboratory Tests Test 02/04/17 05:45 White Blood Count 10.3x10^3/uL (4.0-11.0) Red Blood Count 3.26x10^6/uL (4.30-5.70) Hemoglobin 11.3g/dL (13.0-17.5) Hematocrit 33.7% (39.0-53.0) Mean Corpuscular Volume 103fL (79-100) Mean Corpuscular Hemoglobin 35pg (25-35) Mean Corpuscular Hemoglobin Concent 34g/dL (31-37) Red Cell Distribution Width 14.3% (11.5-14.5) Platelet Count 250x10^3/uL (140-400) Neutrophils (%) (Auto) 80% (31-73) Lymphocytes (%) (Auto) 10% (24-48) Monocytes (%) (Auto) 9% (0-9) Eosinophils (%) (Auto) 0% (0-3) Basophils (%) (Auto) 1% (0-3) Neutrophils # (Auto) 8.2x10^3uL (1.8-7.7) Lymphocytes # (Auto) 1.1x10^3/uL (1.0-4.8) Monocytes # (Auto) 1.0x10^3/uL (0.0-1.1) Eosinophils # (Auto) 0.0x10^3/uL (0.0-0.7) Basophils # (Auto) 0.1x10^3/uL (0.0-0.2) Sodium Level 146mmol/L (136-145) Potassium Level 3.8mmol/L (3.5-5.1) Chloride Level 111mmol/L (98-107) Carbon Dioxide Level 28mmol/L (21-32) Anion Gap 7 (6-14) Blood Urea Nitrogen 26mg/dL (8-26) Creatinine 0.9mg/dL (0.7-1.3) Estimated GFR (Cockcroft-Gault) 83.2 Glucose Level 123mg/dL (70-99) Calcium Level 8.5mg/dL (8.5-10.1) Phosphorus Level 3.5mg/dL (2.6-4.7) Magnesium Level 2.1mg/dL (1.8-2.4) Triglycerides Level 129mg/dL (0-150) Problem List Problems Medical Problems: (1) Perforated abdominal viscus Status: Acute Assessment/Plan s/p colon resection protein malnutrition hx of Crohn's hx alcohol abuse NG trial ambulate d/c drain Problems: RON GROSS MD Feb 04, 2017 09:10
--- NOTE | 2017-02-04 10:38 | PDOC ---
Infectious Disease Note Subjective Subjective pt feeling better, walking ROS ROS GEN: Denies fevers, chills, sweats HEENT: Denies blurred vision, sore throat CV: Denies chest pain RESP: Denies shortness of air, cough GI: Denies n/v/d NEURO: Denies confusion, dizziness MSK: Denies weakness, joint pain/swelling Vital Sign Vital Signs Vital Signs Date Time Temp Pulse Resp B/P Pulse Ox O2 Delivery O2 Flow Rate FiO2 02/04/17 08:49 75 104/69 02/04/17 07:36 94 Nasal Cannula 2.0 02/04/17 07:00 97.0 18 97.0 Physical Exam PHYSICAL EXAM GENERAL: NAD, Alert HEENT: PERRL, OC/OP NECK: Supple, no JVD, no LN LUNGS: Clear HEART: S1S2, no gallop, no murmur ABD: Soft, NT, no organomegaly, no rebound, incision ok EXT: No edema, no cyanosis HOME APPLIANCE TECH: Alert, oriented x 3, no focal neurologic deficit SKIN: No rash IV: ok Labs Lab Laboratory Tests Test 02/04/17 05:45 White Blood Count 10.3x10^3/uL (4.0-11.0) Red Blood Count 3.26x10^6/uL (4.30-5.70) Hemoglobin 11.3g/dL (13.0-17.5) Hematocrit 33.7% (39.0-53.0) Mean Corpuscular Volume 103fL (79-100) Mean Corpuscular Hemoglobin 35pg (25-35) Mean Corpuscular Hemoglobin Concent 34g/dL (31-37) Red Cell Distribution Width 14.3% (11.5-14.5) Platelet Count 250x10^3/uL (140-400) Neutrophils (%) (Auto) 80% (31-73) Lymphocytes (%) (Auto) 10% (24-48) Monocytes (%) (Auto) 9% (0-9) Eosinophils (%) (Auto) 0% (0-3) Basophils (%) (Auto) 1% (0-3) Neutrophils # (Auto) 8.2x10^3uL (1.8-7.7) Lymphocytes # (Auto) 1.1x10^3/uL (1.0-4.8) Monocytes # (Auto) 1.0x10^3/uL (0.0-1.1) Eosinophils # (Auto) 0.0x10^3/uL (0.0-0.7) Basophils # (Auto) 0.1x10^3/uL (0.0-0.2) Sodium Level 146mmol/L (136-145) Potassium Level 3.8mmol/L (3.5-5.1) Chloride Level 111mmol/L (98-107) Carbon Dioxide Level 28mmol/L (21-32) Anion Gap 7 (6-14) Blood Urea Nitrogen 26mg/dL (8-26) Creatinine 0.9mg/dL (0.7-1.3) Estimated GFR (Cockcroft-Gault) 83.2 Glucose Level 123mg/dL (70-99) Calcium Level 8.5mg/dL (8.5-10.1) Phosphorus Level 3.5mg/dL (2.6-4.7) Magnesium Level 2.1mg/dL (1.8-2.4) Triglycerides Level 129mg/dL (0-150) Micro ANAEROBIC-AEROBIC CULTURE Preliminary Preliminary report ANAEROBIC RES 1 PENDING ANAEROBIC RES 2 Preliminary Bacteroides fragilis Heavy growth Beta lactamase positive. Performed at: [address] [id number] Plant Operations Engineer: Preethi Nguyen MD, Phone: [phone] AEROBIC CULT Final Final report AEROBIC RES 1 Final Comment Streptococcus bovis group Heavy growth AEROBIC RES 2 Final Comment Haemophilus parainfluenzae Heavy growth Beta lactamase negative. AEROBIC RES 3 Final Mixed site kale. Objective Assessment Perforated colon s/p surgery Peritonitis Sepsis with hypotension Crohns disease on remicaid Recent pneumonia smoker Plan Plan of Care change iv to po augmentin supportive care d/w family KELSIE CANTU MD Feb 04, 2017 10:38
[2017-02-04 11:00] VITALS: BP 93/67
--- NOTE | 2017-02-04 11:19 | PDOC ---
CARDIO Progress Notes Date and Time Date of Service 02/04/17 Time of Evaluation 1050 Subjective Subjective: No Chest Pain, No shortness of breath, Other (feeling better/more rested this morning. mild abd tenderness. Wanting LASHAUN out. ) Comments: no acute events overnight Vitals Vitals Vital Signs Date Time Temp Pulse Resp B/P Pulse Ox O2 Delivery O2 Flow Rate FiO2 02/04/17 08:49 75 104/69 02/04/17 07:36 94 Nasal Cannula 2.0 02/04/17 07:00 97.0 18 97.0 Weight Weight [ ] Input and Output Intake and Output Intake and Output 02/04/17 07:00 Output Total 1605 ml Balance -1605 ml Output Urine Total 1100 ml Gastric Drainage Total 500 ml Drainage Total 5 ml Laboratory Labs Laboratory Tests Test 02/04/17 05:45 White Blood Count 10.3x10^3/uL (4.0-11.0) Red Blood Count 3.26x10^6/uL (4.30-5.70) Hemoglobin 11.3g/dL (13.0-17.5) Hematocrit 33.7% (39.0-53.0) Mean Corpuscular Volume 103fL (79-100) Mean Corpuscular Hemoglobin 35pg (25-35) Mean Corpuscular Hemoglobin Concent 34g/dL (31-37) Red Cell Distribution Width 14.3% (11.5-14.5) Platelet Count 250x10^3/uL (140-400) Neutrophils (%) (Auto) 80% (31-73) Lymphocytes (%) (Auto) 10% (24-48) Monocytes (%) (Auto) 9% (0-9) Eosinophils (%) (Auto) 0% (0-3) Basophils (%) (Auto) 1% (0-3) Neutrophils # (Auto) 8.2x10^3uL (1.8-7.7) Lymphocytes # (Auto) 1.1x10^3/uL (1.0-4.8) Monocytes # (Auto) 1.0x10^3/uL (0.0-1.1) Eosinophils # (Auto) 0.0x10^3/uL (0.0-0.7) Basophils # (Auto) 0.1x10^3/uL (0.0-0.2) Sodium Level 146mmol/L (136-145) Potassium Level 3.8mmol/L (3.5-5.1) Chloride Level 111mmol/L (98-107) Carbon Dioxide Level 28mmol/L (21-32) Anion Gap 7 (6-14) Blood Urea Nitrogen 26mg/dL (8-26) Creatinine 0.9mg/dL (0.7-1.3) Estimated GFR (Cockcroft-Gault) 83.2 Glucose Level 123mg/dL (70-99) Calcium Level 8.5mg/dL (8.5-10.1) Phosphorus Level 3.5mg/dL (2.6-4.7) Magnesium Level 2.1mg/dL (1.8-2.4) Triglycerides Level 129mg/dL (0-150) Microbiology Micro Microbiology 02/01/17 Blood Culture - Preliminary, Resulted NO GROWTH AFTER 3 DAYS 01/26/17 Gram Stain - Final, Complete Physical Exam HEENT: Neck Supple W Full Motion, Other (Rt nare NG) Chest: Symmetric LUNGS: Clear to Auscultation, Other Heart: S1S2, no murmurs, irregularly irregular (not on tele. rate controlled per VS review) Abdomen: Other (colostomy, abdominal tenderness, LASHAUN drain intact) Extremities: 2+ Dorsalis Pedis, No Edema, No Calf Tenderness Neurology: alert, oriented, follow commands Assessment Assessment 1. Atrial fibrillation with RVR 2. Perforated viscus, s/p resection with end colostomy 3. Crohn's Dx 4. Acute respiratory failure 5. Leukocytosis 6. Pneumonia 7. Peritonitis 8. Sepsis with hypotension; off pressors 9. Metabolic encephalopathy Recommendations Place on tele Continue same as patient remains NPO. Joe for stroke prophylaxis when able to take PO Supportive care 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 APRN Feb 04, 2017 11:19
--- NOTE | 2017-02-04 13:06 | PDOC ---
PROGRESS NOTES Chief Complaint Chief Complaint Bowel perf ASSESSMENT AND PLAN: 1. SEVERE SEPSIS with ORGAN Dysfunction - new (02/01/17) 1. Colonic perforation: s/p emergent resection of splenic flexure with Paiz pouch on 01/26 2. Peritonitis, fecaloid material intra op 3. Crohn's: on remicade on O/p basis, i.e. immunosuppressed 4. VELVET: recovering. 5. Hyperkalemia: resolved 6. Aflutter: new. resolved (Transient) 6. Thrombocytopenia: resolved 7. Anemia, macrocytic: 8. Leukocytosis: reactive; 9. Agitation: personality vs EtOH W/D. 10. COugh 11. SMOker 12. METABOLIC ENCEPHALOPATHY new (01/30/17) History of Present Illness History of Present Illness Patient was transferred to regular floor, he was sitting in the chair at the time of evaluation, he was in no acute distress. was awake, alert, oriented. LASHAUN drain is d/c, NG tube is still on, colostomy bag had small amount of black loose stool. Family was present in the room. No acute event overnight reported. Pt. is still NPO. Plan of care D/w family and RN. Vitals Vitals Vital Signs Date Time Temp Pulse Resp B/P Pulse Ox O2 Delivery O2 Flow Rate FiO2 02/04/17 11:00 97.1 76 18 93/67 92 Nasal Cannula 2.0 97.1 Physical Exam General: Alert, Oriented X3, Cooperative, No acute distress Heart: Other (irregular) Lungs: Other (decrease bs bases) Abdomen: Soft, Other ( loose black stool in the ostomy bag) Extremities: No edema, Normal pulses Skin: No significant lesion Labs LABS Laboratory Tests Test 02/04/17 05:45 White Blood Count 10.3x10^3/uL (4.0-11.0) Red Blood Count 3.26x10^6/uL (4.30-5.70) Hemoglobin 11.3g/dL (13.0-17.5) Hematocrit 33.7% (39.0-53.0) Mean Corpuscular Volume 103fL (79-100) Mean Corpuscular Hemoglobin 35pg (25-35) Mean Corpuscular Hemoglobin Concent 34g/dL (31-37) Red Cell Distribution Width 14.3% (11.5-14.5) Platelet Count 250x10^3/uL (140-400) Neutrophils (%) (Auto) 80% (31-73) Lymphocytes (%) (Auto) 10% (24-48) Monocytes (%) (Auto) 9% (0-9) Eosinophils (%) (Auto) 0% (0-3) Basophils (%) (Auto) 1% (0-3) Neutrophils # (Auto) 8.2x10^3uL (1.8-7.7) Lymphocytes # (Auto) 1.1x10^3/uL (1.0-4.8) Monocytes # (Auto) 1.0x10^3/uL (0.0-1.1) Eosinophils # (Auto) 0.0x10^3/uL (0.0-0.7) Basophils # (Auto) 0.1x10^3/uL (0.0-0.2) Sodium Level 146mmol/L (136-145) Potassium Level 3.8mmol/L (3.5-5.1) Chloride Level 111mmol/L (98-107) Carbon Dioxide Level 28mmol/L (21-32) Anion Gap 7 (6-14) Blood Urea Nitrogen 26mg/dL (8-26) Creatinine 0.9mg/dL (0.7-1.3) Estimated GFR (Cockcroft-Gault) 83.2 Glucose Level 123mg/dL (70-99) Calcium Level 8.5mg/dL (8.5-10.1) Phosphorus Level 3.5mg/dL (2.6-4.7) Magnesium Level 2.1mg/dL (1.8-2.4) Triglycerides Level 129mg/dL (0-150) Review of Systems Review of Systems Denies fever, chills Denies SOB, CP Awake, alert, oriented NGT still on intermittent suction LASHAUN drain discontinued Ostomy look healthy Assessment and Plan Assessmemt and Plan Assessment and Plan: 1. SEVERE SEPSIS with ORGAN Dysfunction - new (02/01/17) 1. Colonic perforation: s/p emergent resection of splenic flexure with Paiz pouch on 01/26 2. Peritonitis, fecaloid material intra op 3. Crohn's: on remicade on O/p basis, i.e. immunosuppressed 4. VELVET: recovering. 5. Hyperkalemia: resolved 6. Aflutter: new. resolved (Transient) 6. Thrombocytopenia: resolved 7. Anemia, macrocytic: 8. Leukocytosis: reactive; 9. Agitation: personality vs EtOH W/D. 10. COugh 11. SMOker 12. METABOLIC ENCEPHALOPATHY new (01/30/17) PLAN: Pt. is transferred out of ICU to regular floor LASHAUN drain discontinued per surgery recommendation Labs recheck in AM Continue Clinimix Continue Banana bag daily Continue antibiotics per ID recommendations PT/OT D/w RN and family Appreciate subspecialities inputs and recommendations Problems Medical Problems: (1) Perforated abdominal viscus Status: Acute Problems: Comment Review of Relevant I have reviewed the following items manuel (where applicable) has been applied. Labs Laboratory Tests Test 02/03/17 04:12 02/04/17 05:45 White Blood Count 14.2x10^3/uL (4.0-11.0) 10.3x10^3/uL (4.0-11.0) Red Blood Count 3.64x10^6/uL (4.30-5.70) 3.26x10^6/uL (4.30-5.70) Hemoglobin 12.2g/dL (13.0-17.5) 11.3g/dL (13.0-17.5) Hematocrit 36.8% (39.0-53.0) 33.7% (39.0-53.0) Mean Corpuscular Volume 101fL (79-100) 103fL (79-100) Mean Corpuscular Hemoglobin 33pg (25-35) 35pg (25-35) Mean Corpuscular Hemoglobin Concent 33g/dL (31-37) 34g/dL (31-37) Red Cell Distribution Width 14.5% (11.5-14.5) 14.3% (11.5-14.5) Platelet Count 274x10^3/uL (140-400) 250x10^3/uL (140-400) Neutrophils (%) (Auto) 85% (31-73) 80% (31-73) Lymphocytes (%) (Auto) 7% (24-48) 10% (24-48) Monocytes (%) (Auto) 7% (0-9) 9% (0-9) Eosinophils (%) (Auto) 0% (0-3) 0% (0-3) Basophils (%) (Auto) 1% (0-3) 1% (0-3) Neutrophils # (Auto) 12.1x10^3uL (1.8-7.7) 8.2x10^3uL (1.8-7.7) Lymphocytes # (Auto) 1.0x10^3/uL (1.0-4.8) 1.1x10^3/uL (1.0-4.8) Monocytes # (Auto) 1.0x10^3/uL (0.0-1.1) 1.0x10^3/uL (0.0-1.1) Eosinophils # (Auto) 0.0x10^3/uL (0.0-0.7) 0.0x10^3/uL (0.0-0.7) Basophils # (Auto) 0.1x10^3/uL (0.0-0.2) 0.1x10^3/uL (0.0-0.2) Sodium Level 142mmol/L (136-145) 146mmol/L (136-145) Potassium Level 3.9mmol/L (3.5-5.1) 3.8mmol/L (3.5-5.1) Chloride Level 108mmol/L (98-107) 111mmol/L (98-107) Carbon Dioxide Level 26mmol/L (21-32) 28mmol/L (21-32) Anion Gap 8 (6-14) 7 (6-14) Blood Urea Nitrogen 26mg/dL (8-26) 26mg/dL (8-26) Creatinine 0.9mg/dL (0.7-1.3) 0.9mg/dL (0.7-1.3) Estimated GFR (Cockcroft-Gault) 83.2 83.2 Glucose Level 116mg/dL (70-99) 123mg/dL (70-99) Calcium Level 8.4mg/dL (8.5-10.1) 8.5mg/dL (8.5-10.1) Phosphorus Level 3.1mg/dL (2.6-4.7) 3.5mg/dL (2.6-4.7) Albumin 1.4g/dL (3.4-5.0) Vancomycin Level Trough 14.1mcg/mL (10.0-20.0) Vancomycin Last Dose Date 02/02/17 Vancomycin Last Dose Time 1700 Magnesium Level 2.1mg/dL (1.8-2.4) Triglycerides Level 129mg/dL (0-150) Laboratory Tests Test 02/04/17 05:45 White Blood Count 10.3x10^3/uL (4.0-11.0) Red Blood Count 3.26x10^6/uL (4.30-5.70) Hemoglobin 11.3g/dL (13.0-17.5) Hematocrit 33.7% (39.0-53.0) Mean Corpuscular Volume 103fL (79-100) Mean Corpuscular Hemoglobin 35pg (25-35) Mean Corpuscular Hemoglobin Concent 34g/dL (31-37) Red Cell Distribution Width 14.3% (11.5-14.5) Platelet Count 250x10^3/uL (140-400) Neutrophils (%) (Auto) 80% (31-73) Lymphocytes (%) (Auto) 10% (24-48) Monocytes (%) (Auto) 9% (0-9) Eosinophils (%) (Auto) 0% (0-3) Basophils (%) (Auto) 1% (0-3) Neutrophils # (Auto) 8.2x10^3uL (1.8-7.7) Lymphocytes # (Auto) 1.1x10^3/uL (1.0-4.8) Monocytes # (Auto) 1.0x10^3/uL (0.0-1.1) Eosinophils # (Auto) 0.0x10^3/uL (0.0-0.7) Basophils # (Auto) 0.1x10^3/uL (0.0-0.2) Sodium Level 146mmol/L (136-145) Potassium Level 3.8mmol/L (3.5-5.1) Chloride Level 111mmol/L (98-107) Carbon Dioxide Level 28mmol/L (21-32) Anion Gap 7 (6-14) Blood Urea Nitrogen 26mg/dL (8-26) Creatinine 0.9mg/dL (0.7-1.3) Estimated GFR (Cockcroft-Gault) 83.2 Glucose Level 123mg/dL (70-99) Calcium Level 8.5mg/dL (8.5-10.1) Phosphorus Level 3.5mg/dL (2.6-4.7) Magnesium Level 2.1mg/dL (1.8-2.4) Triglycerides Level 129mg/dL (0-150) Microbiology 02/01/17 Blood Culture - Preliminary, Resulted NO GROWTH AFTER 3 DAYS 01/26/17 Gram Stain - Final, Complete Medications Current Medications Sodium Chloride (Iv Sodium Chloride 0.9% 1000ml Bag) 1,000 ml @ 100 mls/hr Q10H IV Last administered on 01/25/17 22:11; Start 01/25/17 at 22:30; Stop at 08:29; Status DC Ondansetron HCl (Zofran) 4 mg 1X ONCE IV Last administered on 01/25/17 22:12 ; Start 01/25/17 at 22:30; Stop 01/25/17 at 22:31; Status DC Fentanyl Citrate (Fentanyl 2ml Vial) 75 mcg PRN Q15MIN PRN IV PAIN GREATER THAN 3/10 Last administered on 01/26/17 00:50; Start 01/25/17 at 22:00; Stop at 21:59; Status DC Fentanyl Citrate (Fentanyl 2ml Vial) 100 mcg 1X ONCE IV Last administered on 22:12; Start 01/25/17 at 22:30; Stop 01/25/17 at 22:31; Status DC Iohexol (Omnipaque 300 Mg/ml) 75 ml 1X ONCE IV Last administered on 01/25/17 23:55; Start 01/26/17 at 00:00; Stop 01/26/17 at 00:01; Status DC Info 1 each 1 each PRN DAILY PRN MC SEE COMMENTS; Start 01/25/17 at 23:45; Stop 01/27/17 at 23:44; Status DC Piperacillin Sod/ Tazobactam Sod 3.375 gm/Sodium Chloride 50 ml @ 100 mls/hr 1X ONCE IV Last administered on 01/26/17 00:56; Start 01/26/17 at 01:00; Stop 01/26/17 at 01:29; Status DC Sodium Chloride (Iv Sodium Chloride 0.9% 1000ml Bag) 1,000 ml @ 100 mls/hr 1X ONCE IV Last administered on 01/26/17 00:53; Start 01/26/17 at 01:00; Stop at 10:59; Status DC Hydromorphone HCl (Dilaudid) 1 mg 1X ONCE IV Last administered on 01/26/17 01 :33; Start 01/26/17 at 01:30; Stop 01/26/17 at 01:34; Status DC Hydromorphone HCl 1 mg 1 mg 1X ONCE IV ; Start 01/26/17 at 02:00; Stop at 02:01; Status DC Piperacillin Sod/ Tazobactam Sod/ Sodium Chloride (Zosyn/Iv Sodium Chloride 0.9 % 50ml) 50 ml @ 100 mls/hr 1X ONCE IV Last administered on 01/26/17 02:43; Start 01/26/17 at 02:00; Stop 01/26/17 at 02:29; Status DC Dexamethasone Sodium Phosphate (Decadron) 20 mg STK-MED ONCE .ROUTE ; Start at 02:00; Stop 01/26/17 at 02:01; Status DC Ondansetron HCl 4 mg 4 mg STK-MED ONCE .ROUTE ; Start 01/26/17 at 02:00; Stop at 02:01; Status DC Propofol (Diprivan) 20 ml @ As Directed STK-MED ONCE IV ; Start 01/26/17 at 02: 00; Stop 01/26/17 at 02:01; Status DC Lidocaine HCl 100 mg STK-MED ONCE .ROUTE ; Start 01/26/17 at 02:00; Stop at 02:01; Status DC Fentanyl Citrate (Fentanyl 2ml Vial) 100 mcg STK-MED ONCE .ROUTE ; Start at 02:00; Stop 01/26/17 at 02:01; Status DC Succinylcholine Chloride (Anectine) 200 mg STK-MED ONCE .ROUTE ; Start 01/26/17 at 02:00; Stop 01/26/17 at 02:01; Status DC Rocuronium [place] (Zemuron) 50 mg STK-MED ONCE .ROUTE ; Start 01/26/17 at 02:00 ; Stop 01/26/17 at 02:01; Status DC Ondansetron HCl (Zofran) 4 mg PRN Q6HRS PRN IV Nausea; Start 01/26/17 at 02:15 ; Stop 01/27/17 at 02:14; Status DC Fentanyl Citrate (Fentanyl 2ml Vial) 25 mcg PRN Q5MIN PRN IV MILD PAIN; Start 01/26/17 at 02:15; Stop 01/27/17 at 02:14; Status DC Fentanyl Citrate (Fentanyl 2ml Vial) 50 mcg PRN Q5MIN PRN IV MODERATE PAIN; Start 01/26/17 at 02:15; Stop 01/27/17 at 02:14; Status DC Morphine Sulfate 1 mg 1 mg PRN Q10MIN PRN IV SEVERE PAIN; Start 01/26/17 at 02: 15; Stop 01/27/17 at 02:14; Status DC Lactated Ringer's (Iv Lactated Ringers) 1,000 ml @ 30 mls/hr Q24H IV ; Start at 02:09; Stop 01/26/17 at 14:08; Status DC Lidocaine HCl 2 ml 1X PRN PRN ID IV START; Start 01/26/17 at 02:15; Stop at 02:14; Status DC Hydromorphone HCl (Dilaudid) 0.5 mg PRN Q10MIN PRN IV SEV PAIN,Second choice Last administered on 01/26/17t 06:29; Start 01/26/17 at 02:15; Stop 01/27/17 at 02:14; Status DC Prochlorperazine Edisylate 5 mg 5 mg PACU PRN PRN IV NAUSEA; Start 01/26/17 at 02:15; Stop 01/27/17 at 02:14; Status DC Bacitracin/Sodium Chloride (Iv Sodium Chloride 0.9% 500ml Bag) 500 ml @ 500 mls /hr 1X PERIOP ONCE IRR ; Start 01/26/17 at 03:00; Stop 01/26/17 at 03:59; Status DC Hydrocortisone Sodium Succinate (Solu-Cortef) 100 mg STK-MED ONCE .ROUTE ; Start 01/26/17 at 02:24; Stop 01/26/17 at 02:25; Status DC Sevoflurane (Ultane) 90 ml STK-MED ONCE IH ; Start 01/26/17 at 03:16; Stop 01/26 at 03:17; Status DC Phenylephrine HCl 1 mg STK-MED ONCE IV ; Start 01/26/17 at 03:17; Stop 01/26/17 at 03:18; Status DC Phenylephrine HCl (Bhargav-Synephrine Inj) 10 mg STK-MED ONCE .ROUTE ; Start at 03:32; Stop 01/26/17 at 03:33; Status DC Rocuronium [place] (Zemuron) 50 mg STK-MED ONCE .ROUTE ; Start 01/26/17 at 03:36 ; Stop 01/26/17 at 03:37; Status DC Cellulose 1 each STK-MED ONCE .ROUTE Last administered on 01/26/17 02:47; Start 01/26/17 at 03:38; Stop 01/26/17 at 03:39; Status DC Glycopyrrolate (Robinul) 1 mg STK-MED ONCE .ROUTE ; Start 01/26/17 at 04:23; Stop 01/26/17 at 04:24; Status DC Neostigmine Methylsulfate 5 mg STK-MED ONCE .ROUTE ; Start 01/26/17 at 04:23; Stop 01/26/17 at 04:24; Status DC Sevoflurane (Ultane) 90 ml STK-MED ONCE IH ; Start 01/26/17 at 04:23; Stop 01/26 at 04:24; Status DC Esmolol HCl (Brevibloc) 100 mg STK-MED ONCE IV ; Start 01/26/17 at 04:28; Stop 01/26/17 at 04:29; Status DC Fentanyl Citrate 100 mcg 100 mcg STK-MED ONCE .ROUTE ; Start 01/26/17 at 05:09; Stop 01/26/17 at 05:10; Status DC Metronidazole (FLAGYL 500Mmg PREMIX) 100 ml @ 100 mls/hr Q12HR IV ; Start 01/26 at 09:00; Stop 01/26/17 at 09:00; Status DC Diphenhydramine HCl (Benadryl) 25 mg PRN Q6HRS PRN IV ITCHING Last administered on 01/31/17 11:44; Start 01/26/17 at 05:45 Famotidine (Pepcid) 20 mg BID IVP Last administered on 01/26/17 21:22; Start 01/26/17 at 09:00; Stop 01/27/17 at 08:10; Status DC Enoxaparin Sodium (Lovenox 40mg Syringe) 40 mg Q24H SQ Last administered on 08:48; Start 01/26/17 at 09:00; Stop 01/27/17 at 15:59; Status DC Sodium Chloride 3 ml 3 ml QSHIFT PRN IV AFTER MEDS AND BLOOD DRAWS; Start 01/26 at 05:45 Potassium Chloride/Sodium Chloride 1,000 ml @ 100 mls/hr Q10H IV Last administered on 01/26/17 21:24; Start 01/26/17 at 06:00; Stop 01/27/17 at 13:26 ; Status DC Hydromorphone HCl (Dilaudid Standard RADIO STATION OPERATOR) 30 ml @ 0 mls/hr CONT PRN PRN IV PROTOCOL Last administered on 01/28/17 01:36; Start 01/26/17 at 05:45; Stop at 08:37; Status DC Hydromorphone HCl (Dilaudid) 1 mg PRN Q1HR PRN IV MODERATE PAIN Last administered on 01/31/17 23:58; Start 01/26/17 at 05:45 Ondansetron HCl (Zofran) 4 mg PRN Q6HRS PRN IV NAUESA, 1ST CHOICE Last administered on 01/30/17 14:08; Start 01/26/17 at 05:45 Throat Lozenges (Chloraseptic) 1 spray PRN Q2HR PRN PO SORE THROAT; Start 01/26 at 05:45 Throat Lozenges (Cepacol Sore Throat Lozenge) 1 west PRN Q2HRS PRN PO SORE THROAT; Start 01/26/17 at 05:45 Nicotine 1 patch 1 patch DAILY TD Last administered on 02/04/17 08:51; Start 01/26/17 at 09:00 Piperacillin Sod/ Tazobactam Sod/ Sodium Chloride (Zosyn/Iv Sodium Chloride 0.9 % 50ml) 50 ml @ 100 mls/hr Q6HRS IV Last administered on 02/01/17 12:48; Start 01/26/17 at 08:00; Stop 02/01/17 at 14:07; Status DC Vancomycin HCl 1 each 1 each PRN DAILY PRN MC SEE COMMENTS Last administered on 01/29/17 08:16; Start 01/26/17 at 07:45; Stop 01/30/17 at 09:19; Status DC Vancomycin HCl 2 gm/Sodium Chloride 500 ml @ 250 mls/hr 1X ONCE IV Last administered on 01/26/17 09:02; Start 01/26/17 at 08:00; Stop 01/26/17 at 09:59 ; Status DC Vancomycin HCl/ Sodium Chloride (Iv Sodium Chloride 0.9% 250ml) 250 ml @ 167 mls/hr Q12H IV Last administered on 01/26/17 21:22; Start 01/26/17 at 21:00; Stop 01/27/17 at 09:36; Status DC Vancomycin HCl 1 each 1X ONCE MC Last administered on 01/27/17 08:30; Start 01/27/17 at 08:30; Stop 01/27/17 at 08:31; Status DC Famotidine 20 mg 20 mg QHS IVP Last administered on 02/01/17 23:16; Start at 21:00; Stop 02/02/17 at 09:49; Status DC Vancomycin HCl/ Sodium Chloride (Iv Sodium Chloride 0.9% 250ml) 250 ml @ 167 mls/hr Q24H IV Last administered on 01/28/17 21:49; Start 01/27/17 at 22:00; Stop 01/28/17 at 23:00; Status DC Vancomycin HCl 1 each 1 each 1X ONCE MC Last administered on 01/28/17 21:30; Start 01/28/17 at 21:30; Stop 01/28/17 at 21:31; Status DC Diltiazem HCl 125 mg/Dextrose 125 ml @ 0 mls/hr CONT PRN IV SEE I/O RECORD Last administered on 01/27/17 23:12; Start 01/27/17 at 11:45; Stop 01/29/17 at 08:37; Status DC Sodium Chloride (Iv Sodium Chloride 0.45%) 1,000 ml @ 100 mls/hr 1X ONCE IV Last administered on 01/27/17 13:30; Start 01/27/17 at 13:30; Stop 01/27/17 at 23:29; Status DC Enoxaparin Sodium (Lovenox Per Pharmacy Treatment Dosing) 1 each PRN DAILY PRN MC SEE COMMENTS; Start 01/27/17 at 16:00; Stop 01/28/17 at 12:15; Status DC Enoxaparin Sodium 75 mg 75 mg Q12HR SQ Last administered on 01/28/17 09:07; Start 01/27/17 at 18:00; Stop 01/28/17 at 12:15; Status DC Magnesium Sulfate/ Dextrose 50 ml @ 25 mls/hr PRN DAILY PRN IV for Mag < 1.7 on am labs; Start 01/27/17 at 17:45; Stop 01/30/17 at 10:08; Status DC Sodium Chloride (Iv Sodium Chloride 0.9% 500ml Bag) 500 ml @ 0 mls/hr QID PRN IV For MAP < 65; Start 01/27/17 at 17:45; Stop 01/30/17 at 10:08; Status DC Info (Anti-Coagulation Monitoring By Pharmacy) 1 each PRN DAILY PRN MC SEE COMMENTS Last administered on 01/28/17 07:45; Start 01/28/17 at 07:45; Stop at 14:34; Status DC Enoxaparin Sodium 40 mg 40 mg Q24H SQ Last administered on 02/03/17 08:19; Start 01/29/17 at 09:00; Stop 02/03/17 at 12:23; Status DC Vancomycin HCl/ Sodium Chloride (Iv Sodium Chloride 0.9% 250ml) 250 ml @ 167 mls/hr Q12H IV Last administered on 01/29/17 21:45; Start 01/29/17 at 10:00; Stop 01/30/17 at 09:19; Status DC Vancomycin HCl 1 each 1X ONCE MC ; Start 01/30/17 at 09:30; Stop 01/30/17 at 09 :31; Status Cancel Oxycodone/ Acetaminophen (Percocet 10/325) 1 tab PRN Q4HRS PRN PO SEVERE, BREAKTHROUGH PAIN Last administered on 01/31/17 09:47; Start 01/29/17 at 08:45 Oxycodone/ Acetaminophen 1 tab 1 tab PRN Q4HRS PRN PO MODERATE PAIN Last administered on 01/31/17 05:49; Start 01/29/17 at 08:45 Sodium Chloride (Iv Sodium Chloride 0.9% 1000ml Bag) 1,000 ml @ 75 mls/hr 1X ONCE IV Last administered on 01/30/17 09:25; Start 01/30/17 at 09:00; Stop at 22:19; Status DC Digoxin 250 mcg 250 mcg 1X ONCE IV Last administered on 01/30/17 09:25; Start 01/30/17 at 09:00; Stop 01/30/17 at 09:01; Status DC Amino Acids/ Electrolytes (Clinimix E 2.75%-5% Solution) 2,000 ml @ 80 mls/hr Q24H IV Last administered on 01/30/17 16:49; Start 01/30/17 at 15:00; Stop at 17:22; Status DC Haloperidol Lactate (Haldol) 5 mg PRN Q4HRS PRN IVP AGITATION Last administered on 01/31/17 05:12; Start 01/31/17 at 05:00 Digoxin 125 mcg 125 mcg DAILY IV Last administered on 02/04/17 08:49; Start at 10:00 Potassium Chloride 50 ml @ 50 mls/hr 1X ONCE IV ; Start 01/31/17 at 09:30; Stop 01/31/17 at 10:29; Status UNV Potassium Chloride (KCl Premix 10meq) 100 ml @ 100 mls/hr Q1H IV Last administered on 01/31/17 12:33; Start 01/31/17 at 09:45; Stop 01/31/17 at 11:44 ; Status DC Lorazepam 2 mg 2 mg PRN Q4HRS PRN IV ANXIETY / AGITATION Last administered on 15:30; Start 01/31/17 at 13:30 Multivitamins/ Folic Acid/ Thiamine HCl/ Dextrose/Sodium Chloride (Infuvite Adult/ Iv D5% - 1/2 NS) 1,011.2 ml @ 100 mls/ hr DAILY IV Last administered on 02/03/17 08:22; Start 01/31/17 at 15:30; Stop 02/04/17 at 07:37; Status DC Chlordiazepoxide 25 mg 25 mg PRN Q6HRS PRN PO ANXIETY / AGITATION Last administered on 01/31/17 14:27; Start 01/31/17 at 13:45 Amino Acids/ Electrolytes (Clinimix E 2.75%-5% Solution) 1,000 ml @ 80 mls/hr [id number] IV Last administered on 01/31/17 18:39; Start 01/31/17 at 17:22; Stop 02/01/17 at 07:53; Status DC Albuterol/ Ipratropium 3 ml 3 ml RTQID NEB ; Start 02/01/17 at 08:00; Stop 02/01 at 09:37; Status DC Amino Acids/ Electrolytes/ Dextrose 1,000 ml @ 80 mls/hr [id number] IV Last administered on 02/03/17 05:39; Start 02/01/17 at 08:00; Stop 02/03/17 at 21:59 ; Status DC Sodium Chloride (Iv Sodium Chloride 0.9% 1000ml Bag) 1,000 ml @ 1,000 mls/hr 1X ONCE IV Last administered on 02/01/17 10:04; Start 02/01/17 at 09:30; Stop 02/01/17 at 10:29; Status DC Budesonide 0.5 mg 0.5 mg RTBID NEB Last administered on 02/04/17 07:34; Start 02/01/17 at 09:30 Dexmedetomidine HCl 200 mcg/ Sodium Chloride 50 ml @ 0 mls/hr CONT PRN IV PER PROTOCOL Last administered on 02/01/17 23:17; Start 02/01/17 at 09:30; Stop at 10:18; Status DC Sodium Chloride (Iv Sodium Chloride 0.9% 500ml Bag) 500 ml @ 500 mls/hr 1X PRN PRN IV SEE COMMENTS; Start 02/01/17 at 09:30 Atropine Sulfate 0.5 mg 0.5 mg PRN Q5MIN PRN IV SEE COMMENTS; Start 02/01/17 at 09:30 Sodium Chloride (Iv Sodium Chloride 0.9% 1000ml Bag) 1,000 ml @ 1,000 mls/hr 1X ONCE IV Last administered on 02/01/17 10:24; Start 02/01/17 at 09:30; Stop 02/01/17 at 10:29; Status DC Hydrocortisone Sodium Succinate (Solu-Cortef) 100 mg Q8HRS IV Last administered on 02/04/17 05:53; Start 02/01/17 at 09:45 Ipratropium [place] (Atrovent) 0.5 mg RTQID NEB Last administered on 02/04/17 07:34; Start 02/01/17 at 12:00 Vancomycin HCl 1 each 1 each PRN DAILY PRN MC SEE COMMENTS Last administered on 02/03/17 05:19; Start 02/01/17 at 13:15; Stop 02/03/17 at 07:57; Status DC Meropenem 1 gm/ Sodium Chloride 100 ml @ 200 mls/hr Q8HRS IV Last administered on 02/04/17 06:30; Start 02/01/17 at 14:00; Stop 02/04/17 at 11:51 ; Status DC Vancomycin HCl 1.75 gm/Sodium Chloride 500 ml @ 250 mls/hr 1X ONCE IV Last administered on 02/01/17 17:15; Start 02/01/17 at 15:00; Stop 02/01/17 at 16:59 ; Status DC Vancomycin HCl/ Sodium Chloride (Iv Sodium Chloride 0.9% 250ml) 250 ml @ 167 mls/hr Q12H IV Last administered on 02/02/17 16:41; Start 02/02/17 at 05:00; Stop 02/03/17 at 05:11; Status DC Vancomycin HCl 1 each 1 each 1X ONCE MC Last administered on 02/03/17 04:30; Start 02/03/17 at 04:30; Stop 02/03/17 at 04:31; Status DC Norepinephrine Bitartrate/Sodium Chloride (Levophed Vial/ Iv Sodium Chloride 0.9 % 250ml) 258 ml @ 0 mls/hr CONT PRN IV SEE I/O RECORD; Start 02/01/17 at 23:15 ; Stop 02/04/17 at 10:18; Status DC Famotidine 20 mg 20 mg Q12HR IVP Last administered on 02/04/17 08:50; Start at 11:00 Vancomycin HCl/ Sodium Chloride (Iv Sodium Chloride 0.9% 500ml Bag) 500 ml @ 250 mls/hr Q12H IV Last administered on 02/03/17 05:13; Start 02/03/17 at 05: 00; Stop 02/03/17 at 07:57; Status DC Vancomycin HCl 1 each 1 each 1X ONCE MC ; Start 02/04/17 at 16:30; Stop at 16:31; Status Cancel Albumin Human (Albuminar) 50 ml @ 50 mls/hr Q6HRS IV Last administered on 05:53; Start 02/03/17 at 12:00 Info 1 each PRN DAILY PRN MC SEE COMMENTS Last administered on 02/03/17 13:16 ; Start 02/03/17 at 11:15 Diphenhydramine HCl (Benadryl) 50 mg QHS IVP Last administered on 02/03/17 20: 29; Start 02/03/17 at 21:00 Enoxaparin Sodium (Lovenox Per Pharmacy Treatment Dosing) 1 each PRN DAILY PRN MC SEE COMMENTS; Start 02/03/17 at 12:30 Enoxaparin Sodium 80 mg 80 mg Q12HR SQ Last administered on 02/04/17 08:51; Start 02/03/17 at 21:00 Sodium Chloride/ Sodium Acetate/ Potassium Chloride/ Potassium Phosphate/ Magnesium Sulfate/ Calcium Gluconate/ Multivitamins/ Chromium/Copper/ Manganese/ Seleni/ Zn/Total Parenteral Nutrition/Amino Acids/Dextrose/ Fat Emulsion Intravenous (Sodium Chloride/ Potass... 1,512 ml @ 63 mls/hr TPN CONT IV Last administered on 02/03/17 22:16; Start 02/03/17 at 22:00; Stop 02/04/17 at 21:59 Lidocaine/Sodium Bicarbonate 20 ml 20 ml STK-MED ONCE IJ ; Start 02/03/17 at 15: 29; Stop 02/03/17 at 15:30; Status DC Heparin Sodium/ Sodium Chloride 500 ml @ As Directed STK-MED ONCE .ROUTE ; Start 02/03/17 at 15:29; Stop 02/03/17 at 15:30; Status DC Heparin Sodium/ Sodium Chloride 60 unit 1X ONCE IV Last administered on 16:14; Start 02/03/17 at 15:45; Stop 02/03/17 at 15:46; Status DC Lidocaine/Sodium Bicarbonate (Buffered Lidocaine 1%) 3 ml 1X ONCE IJ Last administered on 02/03/17t 16:13; Start 02/03/17 at 15:45; Stop 02/03/17 at 15:46 ; Status DC Amoxicillin/ Clavulanate Potassium (Augmentin 875/ 125mg) 1 tab BID PO ; Start 02/04/17 at 21:00 Active Scripts Active Reported Remicade (Infliximab) 100 Mg Vial 100 Mg IV Q8HRS Vitals/I & O Vital Sign - Last 24 Hours 02/03/17 02/03/17 02/03/17 02/03/17 16:00 16:20 17:20 19:00 Temp 97.3 96.8 97.9 97.3 96.8 97.9 Pulse 87 95 89 Resp 16 18 18 B/P 107/73 116/79 115/70 Pulse Ox 95 95 95 95 O2 Delivery Nasal Cannula Nasal Cannula Room Air Nasal Cannula O2 Flow Rate 2.0 2.0 2.0 02/03/17 02/03/17 02/03/17 02/04/17 19:47 22:00 23:00 03:00 Temp 98.2 97.7 98.2 97.7 Pulse 88 81 Resp 18 18 B/P 113/72 95/51 Pulse Ox 96 93 95 O2 Delivery Nasal Cannula Nasal Cannula Nasal Cannula Nasal Cannula O2 Flow Rate 2.0 2.0 2.0 2.0 02/04/17 02/04/17 02/04/17 02/04/17 07:00 07:36 08:49 11:00 Temp 97.0 97.1 97.0 97.1 Pulse 75 75 76 Resp 18 18 B/P 104/69 104/69 93/67 Pulse Ox 95 94 92 O2 Delivery Nasal Cannula Nasal Cannula Nasal Cannula O2 Flow Rate 2.0 2.0 2.0 Intake and Output 02/03/17 02/03/17 02/04/17 15:00 23:00 07:00 Output Total 1105 ml 500 ml Balance -1105 ml -500 ml EVELIO BLANTON III DO Feb 04, 2017 13:06
--- NOTE | 2017-02-04 14:01 | PDOC ---
PROGRESS NOTES Assessment Assessment Metabolic encephalopathy. Perforation of small bowel, s/p colon resection. Hypotension events. Crohn's disease. Peritonitis. Pneumonia ? Hx of alcohol use. RECOMMENDATIONS/PLAN: HCT on 01/31 was unremarkable. Continue medical and surgical treatment. Discussed with his son at bedside in ICU. PAST MEDICAL AND SURGICAL HISTORY: Please see H&P ALLERGY: Reviewed. MEDICATIONS: Refer to MAR REVIEW OF SYSTEMS: Constitutional: No malnutrition, cachexia. Head: No traumatic brain or head injury. Skin: No edema, or rash. Ear: No infection, tinnitus. Eyes: No vision loss, or diplopia. Nose: No bleeding or purulent discharges. Hearing: Hearing loss. Cardiac: No RI, arrhythmia Pulmonary: No CPOD. GI: Crohn's disease. Urinary/genital: UTI. Endocrine: No cousin face, craniofacial dysmorphism, polydactyly. Skeletomuscular: No muscular atrophy, deformity. Neurological: see HP. Psychiatric: Denies drug use/abuse. Otherwise, not [id number] review of systems. PHYSICAL EXAMINATION: General appearance in subacute distress. HEENT: Normocephalic and nontraumatic. Eyes, nose, ears, and throat are unremarkable. Hearing decrease. Neck is supple. No lymphadenopathy. No bruits are heard over the carotid artery. No Crepitus. Cardiovascular: S1, S2, regular rate and rhythm. Pulmonary: Clear to auscultation bilaterally. Abdomen: Bowel sounds are positive. . Extremities: No rash, lesions, or edema. No restriction of range of motion NEUROLOGICAL EXAMINATION: Awake. Sitting in chair. Oriented place and person and partially to time. PERRL. EOMI. CN: no focal findings. Muscle tone: within normal. Muscle strength: 4+ DTR: 2- Plantar reflex: Flexor response bilaterally Gait: not examined in chair. Sensory exam: no acute abnormal findings. No obvious cerebellar signs elicited. F-T-N test fine. Objective Objective Vital Signs Date Time Temp Pulse Resp B/P Pulse Ox O2 Delivery O2 Flow Rate FiO2 02/04/17 11:00 97.1 76 18 93/67 92 Nasal Cannula 2.0 97.1 Intake and Output 02/04/17 07:00 Output Total 1605 ml Balance -1605 ml Output Urine Total 1100 ml Gastric Drainage Total 500 ml Drainage Total 5 ml Vitals Signs Vitals VS - Last 72 Hours, by Label Date Time Temp Pulse Resp B/P Pulse Ox O2 Delivery O2 Flow Rate FiO2 02/04/17 11:00 97.1 76 18 93/67 92 Nasal Cannula 2.0 97.1 02/04/17 08:49 75 104/69 02/04/17 07:36 94 Nasal Cannula 2.0 02/04/17 07:00 97.0 75 18 104/69 95 Nasal Cannula 2.0 97.0 02/04/17 03:00 97.7 81 18 95/51 95 Nasal Cannula 2.0 97.7 02/03/17 23:00 98.2 88 18 113/72 93 Nasal Cannula 2.0 98.2 02/03/17 22:00 Nasal Cannula 2.0 02/03/17 19:47 96 Nasal Cannula 2.0 02/03/17 19:00 97.9 89 18 115/70 95 Nasal Cannula 2.0 97.9 02/03/17 17:20 96.8 95 18 116/79 95 Room Air 96.8 02/03/17 16:20 95 Nasal Cannula 2.0 02/03/17 16:00 97.3 87 16 107/73 95 Nasal Cannula 2.0 97.3 02/03/17 12:10 95 Nasal Cannula 2.0 02/03/17 11:45 Nasal Cannula 2.0 02/03/17 11:00 78 12 119/65 95 Nasal Cannula 2.0 02/03/17 09:57 98 12 117/67 94 Nasal Cannula 2.0 02/03/17 09:16 90 20 121/77 93 Nasal Cannula 2.0 02/03/17 08:27 95 Nasal Cannula 2.0 02/03/17 08:21 76 114/74 02/03/17 08:00 97.8 66 16 114/74 94 Nasal Cannula 2.0 97.8 02/03/17 07:43 Nasal Cannula 2.0 02/03/17 07:16 95 16 110/65 95 Nasal Cannula 2.0 Laboratory Laboratory Laboratory Tests Test 02/04/17 05:45 White Blood Count 10.3x10^3/uL (4.0-11.0) Red Blood Count 3.26x10^6/uL (4.30-5.70) Hemoglobin 11.3g/dL (13.0-17.5) Hematocrit 33.7% (39.0-53.0) Mean Corpuscular Volume 103fL (79-100) Mean Corpuscular Hemoglobin 35pg (25-35) Mean Corpuscular Hemoglobin Concent 34g/dL (31-37) Red Cell Distribution Width 14.3% (11.5-14.5) Platelet Count 250x10^3/uL (140-400) Neutrophils (%) (Auto) 80% (31-73) Lymphocytes (%) (Auto) 10% (24-48) Monocytes (%) (Auto) 9% (0-9) Eosinophils (%) (Auto) 0% (0-3) Basophils (%) (Auto) 1% (0-3) Neutrophils # (Auto) 8.2x10^3uL (1.8-7.7) Lymphocytes # (Auto) 1.1x10^3/uL (1.0-4.8) Monocytes # (Auto) 1.0x10^3/uL (0.0-1.1) Eosinophils # (Auto) 0.0x10^3/uL (0.0-0.7) Basophils # (Auto) 0.1x10^3/uL (0.0-0.2) Sodium Level 146mmol/L (136-145) Potassium Level 3.8mmol/L (3.5-5.1) Chloride Level 111mmol/L (98-107) Carbon Dioxide Level 28mmol/L (21-32) Anion Gap 7 (6-14) Blood Urea Nitrogen 26mg/dL (8-26) Creatinine 0.9mg/dL (0.7-1.3) Estimated GFR (Cockcroft-Gault) 83.2 Glucose Level 123mg/dL (70-99) Calcium Level 8.5mg/dL (8.5-10.1) Phosphorus Level 3.5mg/dL (2.6-4.7) Magnesium Level 2.1mg/dL (1.8-2.4) Triglycerides Level 129mg/dL (0-150) Microbiology 02/01/17 Blood Culture - Preliminary, Resulted NO GROWTH AFTER 3 DAYS 01/26/17 Gram Stain - Final, Complete Medication Medications Current Medications Amoxicillin/ Clavulanate Potassium 1 tab 1 tab BID PO ; Start 02/04/17 at 21:00 Diphenhydramine HCl (Benadryl) 50 mg QHS IVP Last administered on 02/03/17 20: 29; Start 02/03/17 at 21:00 Enoxaparin Sodium 80 mg 80 mg Q12HR SQ Last administered on 02/04/17 08:51; Start 02/03/17 at 21:00 Heparin Sodium/ Sodium Chloride 60 unit 1X ONCE IV Last administered on 16:14; Start 02/03/17 at 15:45; Stop 02/03/17 at 15:46; Status DC Heparin Sodium/ Sodium Chloride 500 ml @ As Directed STK-MED ONCE .ROUTE ; Start 02/03/17 at 15:29; Stop 02/03/17 at 15:30; Status DC Lidocaine/Sodium Bicarbonate (Buffered Lidocaine 1%) 3 ml 1X ONCE IJ Last administered on 02/03/17 16:13; Start 02/03/17 at 15:45; Stop 02/03/17 at 15:46 ; Status DC Lidocaine/Sodium Bicarbonate 20 ml 20 ml STK-MED ONCE IJ ; Start 02/03/17 at 15: 29; Stop 02/03/17 at 15:30; Status DC Sodium Acetate/ Potassium Chloride/ Potassium Phosphate/ Magnesium Sulfate/ Multivitamins/ Chromium/Copper/ Manganese/Seleni/ Zn/Thiamine HCl/ Total Parenteral Nutrition/Amino Acids/Dextrose/ Fat Emulsion Intravenous (Potassium Phosphate/ Infuvite Adult/ Multitrace-5 Co... 1,512 ml @ 63 mls/hr TPN CONT IV ; Start 02/04/17 at 22:00; Stop 02/05/17 at 21:59 Sodium Chloride/ Sodium Acetate/ Potassium Chloride/ Potassium Phosphate/ Magnesium Sulfate/ Calcium Gluconate/ Multivitamins/ Chromium/Copper/ Manganese/ Seleni/ Zn/Total Parenteral Nutrition/Amino Acids/Dextrose/ Fat Emulsion Intravenous (Sodium Chloride/ Potass... 1,512 ml @ 63 mls/hr TPN CONT IV Last administered on 02/03/17 22:16; Start 02/03/17 at 22:00; Stop 02/04/17 at 21:59 Vancomycin HCl 1 each 1X ONCE MC ; Start 02/04/17 at 16:30; Stop 02/04/17 at 16 :31; Status Cancel Comment Review of Relevant I have reviewed the following items manuel (where applicable) has been applied. JORGE LUIS WISDOM MD 29, 2017 14:01
[2017-02-04 15:00] VITALS: BP 125/76
[2017-02-04] MEDS: TPN PER PHARMACY MC PRN (15:30)
[2017-02-04 19:30] VITALS: BP 118/74
[2017-02-04] MEDS: AMOXICILLIN/K CLAV 875/125MG TABLET. PO SCH (21:16)
[2017-02-04] MEDS: DIPHENHYDRAMINE 50 MG/ML VIAL IVP SCH (21:17)
[2017-02-04] MEDS ORDERED: AMINO ACIDS IV SCH ×10 (22:00)
[2017-02-04] MEDS ORDERED: DEXTROSE 70% IV SCH ×10 (22:00)
[2017-02-04] MEDS ORDERED: [UNRECOGNIZED DRUG - OTHER] IV SCH ×10 (22:00)
[2017-02-04] MEDS ORDERED: TOTAL PARENTERAL NUTRITION IV SCH ×10 (22:00)
[2017-02-04 23:33] VITALS: BP 108/68
[2017-02-05] MEDS: ALBUMIN HUMAN 25% 50 ML IV SCH ×2 (00:07→05:34)
[2017-02-05 03:34] VITALS: BP 109/61
[2017-02-05] MEDS ORDERED: HYDROMORPHONE 2 MG/ML VIAL. IV PRN (05:18)
[2017-02-05] MEDS ORDERED: ONDANSETRON PF 4 MG/2 ML VIAL. IV PRN (05:19)
[2017-02-05 06:03] LABS: BASO # 0.1 x10^3/uL (0.0-0.2); BASO % 1 % (0-3); EOS % 0 % (0-3); HEMATOCRIT 32.8 % (39.0-53.0); HEMOGLOBIN 11.2 g/dL (13.0-17.5); LYMPH # 2.1 x10^3/uL (1.0-4.8); LYMPH % 15 % (24-48); MEAN CORPUSCULAR HEMOGLOBIN 35 pg (25-35); MEAN CORPUSCULAR HGB CONC 34 g/dL (31-37); MEAN CORPUSCULAR VOLUME 101 fL (79-100); MONO % 8 % (0-9); NEUT % 76 % (31-73); PLATELET COUNT 288 x10^3/uL (140-400); RED BLOOD COUNT 3.23 x10^6/uL (4.30-5.70); RED CELL DISTRIBUTION WIDTH 14.8 % (11.5-14.5); WHITE BLOOD COUNT 13.9 x10^3/uL (4.0-11.0)
[2017-02-05 06:11] LABS: CALCIUM 8.4 mg/dL (8.5-10.1); CREATININE 0.9 mg/dL (0.7-1.3); GFR 83.2; POTASSIUM 3.4 mmol/L (3.5-5.1)
[2017-02-05 06:33] LABS: MAGNESIUM 2.1 mg/dL (1.8-2.4); PHOSPHORUS 3.1 mg/dL (2.6-4.7)
[2017-02-05 07:00] VITALS: BP 105/56
[2017-02-05] MEDS: IPRATROPIUM BROMIDE 0.5 MG/2.5 ML NEBU. NEB SCH ×5 (07:35→20:02)
--- NOTE | 2017-02-05 09:04 | PDOC ---
PULMONARY PROGRESS NOTES Subjective NO soa walking IS 1500 Vitals Vital Signs Date Time Temp Pulse Resp B/P Pulse Ox O2 Delivery O2 Flow Rate FiO2 02/05/17 07:38 94 Room Air 02/05/17 03:34 97.7 69 20 109/61 2.0 97.7 ROS: No Nausea, No Chest Pain, No Increase Cough General: No acute distress Lungs: Clear Cardiovascular: S1, S2 Abdomen: Soft, Other (NT) Neuro Exam: Alert Extremities: No Edema Skin: Warm Labs Laboratory Tests Test 02/04/17 05:45 02/05/17 05:40 White Blood Count 10.3x10^3/uL (4.0-11.0) 13.9x10^3/uL (4.0-11.0) Red Blood Count 3.26x10^6/uL (4.30-5.70) 3.23x10^6/uL (4.30-5.70) Hemoglobin 11.3g/dL (13.0-17.5) 11.2g/dL (13.0-17.5) Hematocrit 33.7% (39.0-53.0) 32.8% (39.0-53.0) Mean Corpuscular Volume 103fL (79-100) 101fL (79-100) Mean Corpuscular Hemoglobin 35pg (25-35) 35pg (25-35) Mean Corpuscular Hemoglobin Concent 34g/dL (31-37) 34g/dL (31-37) Red Cell Distribution Width 14.3% (11.5-14.5) 14.8% (11.5-14.5) Platelet Count 250x10^3/uL (140-400) 288x10^3/uL (140-400) Neutrophils (%) (Auto) 80% (31-73) 76% (31-73) Lymphocytes (%) (Auto) 10% (24-48) 15% (24-48) Monocytes (%) (Auto) 9% (0-9) 8% (0-9) Eosinophils (%) (Auto) 0% (0-3) 0% (0-3) Basophils (%) (Auto) 1% (0-3) 1% (0-3) Neutrophils # (Auto) 8.2x10^3uL (1.8-7.7) 10.5x10^3uL (1.8-7.7) Lymphocytes # (Auto) 1.1x10^3/uL (1.0-4.8) 2.1x10^3/uL (1.0-4.8) Monocytes # (Auto) 1.0x10^3/uL (0.0-1.1) 1.2x10^3/uL (0.0-1.1) Eosinophils # (Auto) 0.0x10^3/uL (0.0-0.7) 0.0x10^3/uL (0.0-0.7) Basophils # (Auto) 0.1x10^3/uL (0.0-0.2) 0.1x10^3/uL (0.0-0.2) Sodium Level 146mmol/L (136-145) 147mmol/L (136-145) Potassium Level 3.8mmol/L (3.5-5.1) 3.4mmol/L (3.5-5.1) Chloride Level 111mmol/L (98-107) 112mmol/L (98-107) Carbon Dioxide Level 28mmol/L (21-32) 31mmol/L (21-32) Anion Gap 7 (6-14) 4 (6-14) Blood Urea Nitrogen 26mg/dL (8-26) 25mg/dL (8-26) Creatinine 0.9mg/dL (0.7-1.3) 0.9mg/dL (0.7-1.3) Estimated GFR (Cockcroft-Gault) 83.2 83.2 Glucose Level 123mg/dL (70-99) 91mg/dL (70-99) Calcium Level 8.5mg/dL (8.5-10.1) 8.4mg/dL (8.5-10.1) Phosphorus Level 3.5mg/dL (2.6-4.7) 3.1mg/dL (2.6-4.7) Magnesium Level 2.1mg/dL (1.8-2.4) 2.1mg/dL (1.8-2.4) Triglycerides Level 129mg/dL (0-150) Laboratory Tests Test 02/05/17 05:40 White Blood Count 13.9x10^3/uL (4.0-11.0) Red Blood Count 3.23x10^6/uL (4.30-5.70) Hemoglobin 11.2g/dL (13.0-17.5) Hematocrit 32.8% (39.0-53.0) Mean Corpuscular Volume 101fL (79-100) Mean Corpuscular Hemoglobin 35pg (25-35) Mean Corpuscular Hemoglobin Concent 34g/dL (31-37) Red Cell Distribution Width 14.8% (11.5-14.5) Platelet Count 288x10^3/uL (140-400) Neutrophils (%) (Auto) 76% (31-73) Lymphocytes (%) (Auto) 15% (24-48) Monocytes (%) (Auto) 8% (0-9) Eosinophils (%) (Auto) 0% (0-3) Basophils (%) (Auto) 1% (0-3) Neutrophils # (Auto) 10.5x10^3uL (1.8-7.7) Lymphocytes # (Auto) 2.1x10^3/uL (1.0-4.8) Monocytes # (Auto) 1.2x10^3/uL (0.0-1.1) Eosinophils # (Auto) 0.0x10^3/uL (0.0-0.7) Basophils # (Auto) 0.1x10^3/uL (0.0-0.2) Sodium Level 147mmol/L (136-145) Potassium Level 3.4mmol/L (3.5-5.1) Chloride Level 112mmol/L (98-107) Carbon Dioxide Level 31mmol/L (21-32) Anion Gap 4 (6-14) Blood Urea Nitrogen 25mg/dL (8-26) Creatinine 0.9mg/dL (0.7-1.3) Estimated GFR (Cockcroft-Gault) 83.2 Glucose Level 91mg/dL (70-99) Calcium Level 8.4mg/dL (8.5-10.1) Phosphorus Level 3.1mg/dL (2.6-4.7) Magnesium Level 2.1mg/dL (1.8-2.4) Medications Active Scripts Medications Dose Route/Sig Days Date Category Remicade (Infliximab) 100 Mg Vial 100 Mg IV Q8HRS 01/26/17 Reported Impression . 1. Acute hypoxemic respiratory failure, multifactorial in etiology. 2. Septic shock secondary to peritonitis and pneumonia. on low dose levo 3. Abnormal chest x-ray with moderate atelectasis 4. encephalopathy, improved 5. Hypokalemia. 6. Status post colon rupture and colostomy. 8. Alcohol withdrawal. 9. Smoker, probable chronic obstructive pulmonary disease. 10. Crohn disease. 11. History of atrial fibrillation. Plan . Diet per surgeon Pt doing better ok to transfer to rehab soon continue IS 02, nebs steroids decrease yesterday NAILA DUDLEY MD Feb 05, 2017 09:04
[2017-02-05] MEDS: FAMOTIDINE 20 MG/2 ML VIAL IVP SCH ×2 (09:21→22:15)
[2017-02-05] MEDS: HYDROCORTISONE SOD SUCC/PF 100 MG/2 ML VIAL. IV SCH (09:22)
[2017-02-05] MEDS: AMOXICILLIN/K CLAV 875/125MG TABLET. PO SCH ×2 (09:24→22:13)
[2017-02-05] MEDS: OXYCODONE/APAP 10/325 TABLET. PO PRN ×3 (09:24→22:13)
[2017-02-05] MEDS: NICOTINE 21MG PATCH. TD SCH (09:27)
[2017-02-05] MEDS: DIGOXIN 500 MCG/2 ML AMPUL. IV SCH (09:27)
--- NOTE | 2017-02-05 09:49 | PDOC ---
Infectious Disease Note Subjective Subjective pt feeling better, walking ROS ROS GEN: Denies fevers, chills, sweats HEENT: Denies blurred vision, sore throat CV: Denies chest pain RESP: Denies shortness of air, cough GI: Denies n/v/d NEURO: Denies confusion, dizziness MSK: Denies weakness, joint pain/swelling Vital Sign Vital Signs Vital Signs Date Time Temp Pulse Resp B/P Pulse Ox O2 Delivery O2 Flow Rate FiO2 02/05/17 09:27 78 105/56 02/05/17 09:24 Room Air 02/05/17 07:38 94 02/05/17 07:00 98.4 22 2.0 98.4 Physical Exam PHYSICAL EXAM GENERAL: NAD, Alert HEENT: PERRL, OC/OP NECK: Supple, no JVD, no LN LUNGS: Clear HEART: S1S2, no gallop, no murmur ABD: Soft, NT, no organomegaly, no rebound EXT: No edema, no cyanosis COMPUTER REPAIR INSTRUCTOR: Alert, oriented x 3, no focal neurologic deficit SKIN: No rash IV: ok Labs Lab Laboratory Tests Test 02/05/17 05:40 White Blood Count 13.9x10^3/uL (4.0-11.0) Red Blood Count 3.23x10^6/uL (4.30-5.70) Hemoglobin 11.2g/dL (13.0-17.5) Hematocrit 32.8% (39.0-53.0) Mean Corpuscular Volume 101fL (79-100) Mean Corpuscular Hemoglobin 35pg (25-35) Mean Corpuscular Hemoglobin Concent 34g/dL (31-37) Red Cell Distribution Width 14.8% (11.5-14.5) Platelet Count 288x10^3/uL (140-400) Neutrophils (%) (Auto) 76% (31-73) Lymphocytes (%) (Auto) 15% (24-48) Monocytes (%) (Auto) 8% (0-9) Eosinophils (%) (Auto) 0% (0-3) Basophils (%) (Auto) 1% (0-3) Neutrophils # (Auto) 10.5x10^3uL (1.8-7.7) Lymphocytes # (Auto) 2.1x10^3/uL (1.0-4.8) Monocytes # (Auto) 1.2x10^3/uL (0.0-1.1) Eosinophils # (Auto) 0.0x10^3/uL (0.0-0.7) Basophils # (Auto) 0.1x10^3/uL (0.0-0.2) Sodium Level 147mmol/L (136-145) Potassium Level 3.4mmol/L (3.5-5.1) Chloride Level 112mmol/L (98-107) Carbon Dioxide Level 31mmol/L (21-32) Anion Gap 4 (6-14) Blood Urea Nitrogen 25mg/dL (8-26) Creatinine 0.9mg/dL (0.7-1.3) Estimated GFR (Cockcroft-Gault) 83.2 Glucose Level 91mg/dL (70-99) Calcium Level 8.4mg/dL (8.5-10.1) Phosphorus Level 3.1mg/dL (2.6-4.7) Magnesium Level 2.1mg/dL (1.8-2.4) Micro ANAEROBIC-AEROBIC CULTURE Preliminary Preliminary report ANAEROBIC RES 1 PENDING ANAEROBIC RES 2 Preliminary Bacteroides fragilis Heavy growth Beta lactamase positive. Performed at: [facility] [address], [place] [id number] Wood Type Finisher: Preethi Nguyen MD, Phone: [phone] AEROBIC CULT Final Final report AEROBIC RES 1 Final Comment Streptococcus bovis group Heavy growth AEROBIC RES 2 Final Comment Haemophilus parainfluenzae Heavy growth Beta lactamase negative. AEROBIC RES 3 Final Mixed site kale. Objective Assessment Perforated colon s/p surgery Peritonitis Sepsis with hypotension Crohns disease on remicaid Recent pneumonia smoker Plan Plan of Care po augmentin supportive care KELSIE CANTU MD Feb 05, 2017 09:49
--- NOTE | 2017-02-05 10:06 | PDOC ---
PROGRESS NOTES Chief Complaint Chief Complaint Bowel perf 1. SEVERE SEPSIS with ORGAN Dysfunction - new (02/01/17) 1. Colonic perforation: s/p emergent resection of splenic flexure with Paiz pouch on 01/26 2. Peritonitis, fecaloid material intra op 3. Crohn's: on remicade on O/p basis, i.e. immunosuppressed 4. VELVET: recovering. 5. Hyperkalemia: resolved 6. Aflutter: new. resolved (Transient) 6. Thrombocytopenia: resolved 7. Anemia, macrocytic: 8. Leukocytosis: reactive; 9. Agitation: personality vs EtOH W/D. 10. COugh 11. SMOker 12. METABOLIC ENCEPHALOPATHY new (01/30/17) History of Present Illness History of Present Illness Patient was laying in the bed at the time of evaluation, was in no acute distress. Was talkative and in good spirit. Alcohol and smoking cessation discussed with pt. and he showed his agreement to it. No acute event overnight reported. Pt. is still NPO. Plan of care with pt. and RN. Vitals Vitals Vital Signs Date Time Temp Pulse Resp B/P Pulse Ox O2 Delivery O2 Flow Rate FiO2 02/05/17 09:27 78 105/56 02/05/17 09:24 Room Air 02/05/17 07:38 94 02/05/17 07:00 98.4 22 2.0 98.4 Physical Exam General: Alert, Oriented X3, Cooperative, No acute distress Heart: Other (irregular) Lungs: Clear Abdomen: Soft, Other ( loose black stool in the ostomy bag) Extremities: No edema, Normal pulses Skin: No significant lesion Labs LABS Laboratory Tests Test 02/05/17 05:40 White Blood Count 13.9x10^3/uL (4.0-11.0) Red Blood Count 3.23x10^6/uL (4.30-5.70) Hemoglobin 11.2g/dL (13.0-17.5) Hematocrit 32.8% (39.0-53.0) Mean Corpuscular Volume 101fL (79-100) Mean Corpuscular Hemoglobin 35pg (25-35) Mean Corpuscular Hemoglobin Concent 34g/dL (31-37) Red Cell Distribution Width 14.8% (11.5-14.5) Platelet Count 288x10^3/uL (140-400) Neutrophils (%) (Auto) 76% (31-73) Lymphocytes (%) (Auto) 15% (24-48) Monocytes (%) (Auto) 8% (0-9) Eosinophils (%) (Auto) 0% (0-3) Basophils (%) (Auto) 1% (0-3) Neutrophils # (Auto) 10.5x10^3uL (1.8-7.7) Lymphocytes # (Auto) 2.1x10^3/uL (1.0-4.8) Monocytes # (Auto) 1.2x10^3/uL (0.0-1.1) Eosinophils # (Auto) 0.0x10^3/uL (0.0-0.7) Basophils # (Auto) 0.1x10^3/uL (0.0-0.2) Sodium Level 147mmol/L (136-145) Potassium Level 3.4mmol/L (3.5-5.1) Chloride Level 112mmol/L (98-107) Carbon Dioxide Level 31mmol/L (21-32) Anion Gap 4 (6-14) Blood Urea Nitrogen 25mg/dL (8-26) Creatinine 0.9mg/dL (0.7-1.3) Estimated GFR (Cockcroft-Gault) 83.2 Glucose Level 91mg/dL (70-99) Calcium Level 8.4mg/dL (8.5-10.1) Phosphorus Level 3.1mg/dL (2.6-4.7) Magnesium Level 2.1mg/dL (1.8-2.4) Review of Systems Review of Systems Denies fever, chills Denies SOB, CP Awake, alert, oriented NGT intermittent suction still on Ostomy look healthy and had black loose stool in it Assessment and Plan Assessmemt and Plan Assessment and Plan: 1. SEVERE SEPSIS with ORGAN Dysfunction - new (02/01/17) 1. Colonic perforation: s/p emergent resection of splenic flexure with Paiz pouch on 01/26 2. Peritonitis, fecaloid material intra op 3. Crohn's: on remicade on O/p basis, i.e. immunosuppressed 4. VELVET: recovering. 5. Hyperkalemia: resolved 6. Aflutter: new. resolved (Transient) 6. Thrombocytopenia: resolved 7. Anemia, macrocytic: 8. Leukocytosis: reactive; 9. Agitation: personality vs EtOH W/D. 10. COugh 11. SMOker 12. METABOLIC ENCEPHALOPATHY new (01/30/17) PLAN: Continue care per floor protocol Continue NGT suction Labs recheck in AM Continue TPN Continue prn pain meds Continue wound care Continue antibiotics per ID recommendations PT/OT D/w RN and Pt. Appreciate subspecialities inputs and recommendations Problems Medical Problems: (1) Perforated abdominal viscus Status: Acute Problems: Comment Review of Relevant I have reviewed the following items manuel (where applicable) has been applied. Labs Laboratory Tests Test 02/04/17 05:45 02/05/17 05:40 White Blood Count 10.3x10^3/uL (4.0-11.0) 13.9x10^3/uL (4.0-11.0) Red Blood Count 3.26x10^6/uL (4.30-5.70) 3.23x10^6/uL (4.30-5.70) Hemoglobin 11.3g/dL (13.0-17.5) 11.2g/dL (13.0-17.5) Hematocrit 33.7% (39.0-53.0) 32.8% (39.0-53.0) Mean Corpuscular Volume 103fL (79-100) 101fL (79-100) Mean Corpuscular Hemoglobin 35pg (25-35) 35pg (25-35) Mean Corpuscular Hemoglobin Concent 34g/dL (31-37) 34g/dL (31-37) Red Cell Distribution Width 14.3% (11.5-14.5) 14.8% (11.5-14.5) Platelet Count 250x10^3/uL (140-400) 288x10^3/uL (140-400) Neutrophils (%) (Auto) 80% (31-73) 76% (31-73) Lymphocytes (%) (Auto) 10% (24-48) 15% (24-48) Monocytes (%) (Auto) 9% (0-9) 8% (0-9) Eosinophils (%) (Auto) 0% (0-3) 0% (0-3) Basophils (%) (Auto) 1% (0-3) 1% (0-3) Neutrophils # (Auto) 8.2x10^3uL (1.8-7.7) 10.5x10^3uL (1.8-7.7) Lymphocytes # (Auto) 1.1x10^3/uL (1.0-4.8) 2.1x10^3/uL (1.0-4.8) Monocytes # (Auto) 1.0x10^3/uL (0.0-1.1) 1.2x10^3/uL (0.0-1.1) Eosinophils # (Auto) 0.0x10^3/uL (0.0-0.7) 0.0x10^3/uL (0.0-0.7) Basophils # (Auto) 0.1x10^3/uL (0.0-0.2) 0.1x10^3/uL (0.0-0.2) Sodium Level 146mmol/L (136-145) 147mmol/L (136-145) Potassium Level 3.8mmol/L (3.5-5.1) 3.4mmol/L (3.5-5.1) Chloride Level 111mmol/L (98-107) 112mmol/L (98-107) Carbon Dioxide Level 28mmol/L (21-32) 31mmol/L (21-32) Anion Gap 7 (6-14) 4 (6-14) Blood Urea Nitrogen 26mg/dL (8-26) 25mg/dL (8-26) Creatinine 0.9mg/dL (0.7-1.3) 0.9mg/dL (0.7-1.3) Estimated GFR (Cockcroft-Gault) 83.2 83.2 Glucose Level 123mg/dL (70-99) 91mg/dL (70-99) Calcium Level 8.5mg/dL (8.5-10.1) 8.4mg/dL (8.5-10.1) Phosphorus Level 3.5mg/dL (2.6-4.7) 3.1mg/dL (2.6-4.7) Magnesium Level 2.1mg/dL (1.8-2.4) 2.1mg/dL (1.8-2.4) Triglycerides Level 129mg/dL (0-150) Laboratory Tests Test 02/05/17 05:40 White Blood Count 13.9x10^3/uL (4.0-11.0) Red Blood Count 3.23x10^6/uL (4.30-5.70) Hemoglobin 11.2g/dL (13.0-17.5) Hematocrit 32.8% (39.0-53.0) Mean Corpuscular Volume 101fL (79-100) Mean Corpuscular Hemoglobin 35pg (25-35) Mean Corpuscular Hemoglobin Concent 34g/dL (31-37) Red Cell Distribution Width 14.8% (11.5-14.5) Platelet Count 288x10^3/uL (140-400) Neutrophils (%) (Auto) 76% (31-73) Lymphocytes (%) (Auto) 15% (24-48) Monocytes (%) (Auto) 8% (0-9) Eosinophils (%) (Auto) 0% (0-3) Basophils (%) (Auto) 1% (0-3) Neutrophils # (Auto) 10.5x10^3uL (1.8-7.7) Lymphocytes # (Auto) 2.1x10^3/uL (1.0-4.8) Monocytes # (Auto) 1.2x10^3/uL (0.0-1.1) Eosinophils # (Auto) 0.0x10^3/uL (0.0-0.7) Basophils # (Auto) 0.1x10^3/uL (0.0-0.2) Sodium Level 147mmol/L (136-145) Potassium Level 3.4mmol/L (3.5-5.1) Chloride Level 112mmol/L (98-107) Carbon Dioxide Level 31mmol/L (21-32) Anion Gap 4 (6-14) Blood Urea Nitrogen 25mg/dL (8-26) Creatinine 0.9mg/dL (0.7-1.3) Estimated GFR (Cockcroft-Gault) 83.2 Glucose Level 91mg/dL (70-99) Calcium Level 8.4mg/dL (8.5-10.1) Phosphorus Level 3.1mg/dL (2.6-4.7) Magnesium Level 2.1mg/dL (1.8-2.4) Microbiology 02/01/17 Blood Culture - Preliminary, Resulted NO GROWTH AFTER 3 DAYS 01/26/17 Gram Stain - Final, Complete Medications Current Medications Sodium Chloride (Iv Sodium Chloride 0.9% 1000ml Bag) 1,000 ml @ 100 mls/hr Q10H IV Last administered on 01/25/17 22:11; Start 01/25/17 at 22:30; Stop at 08:29; Status DC Ondansetron HCl (Zofran) 4 mg 1X ONCE IV Last administered on 01/25/17 22:12 ; Start 01/25/17 at 22:30; Stop 01/25/17 at 22:31; Status DC Fentanyl Citrate (Fentanyl 2ml Vial) 75 mcg PRN Q15MIN PRN IV PAIN GREATER THAN 3/10 Last administered on 01/26/17 00:50; Start 01/25/17 at 22:00; Stop at 21:59; Status DC Fentanyl Citrate (Fentanyl 2ml Vial) 100 mcg 1X ONCE IV Last administered on 22:12; Start 01/25/17 at 22:30; Stop 01/25/17 at 22:31; Status DC Iohexol (Omnipaque 300 Mg/ml) 75 ml 1X ONCE IV Last administered on 01/25/17 23:55; Start 01/26/17 at 00:00; Stop 01/26/17 at 00:01; Status DC Info 1 each 1 each PRN DAILY PRN MC SEE COMMENTS; Start 01/25/17 at 23:45; Stop 01/27/17 at 23:44; Status DC Piperacillin Sod/ Tazobactam Sod 3.375 gm/Sodium Chloride 50 ml @ 100 mls/hr 1X ONCE IV Last administered on 01/26/17 00:56; Start 01/26/17 at 01:00; Stop 01/26/17 at 01:29; Status DC Sodium Chloride (Iv Sodium Chloride 0.9% 1000ml Bag) 1,000 ml @ 100 mls/hr 1X ONCE IV Last administered on 01/26/17 00:53; Start 01/26/17 at 01:00; Stop at 10:59; Status DC Hydromorphone HCl (Dilaudid) 1 mg 1X ONCE IV Last administered on 01/26/17t 01 :33; Start 01/26/17 at 01:30; Stop 01/26/17 at 01:34; Status DC Hydromorphone HCl 1 mg 1 mg 1X ONCE IV ; Start 01/26/17 at 02:00; Stop at 02:01; Status DC Piperacillin Sod/ Tazobactam Sod/ Sodium Chloride (Zosyn/Iv Sodium Chloride 0.9 % 50ml) 50 ml @ 100 mls/hr 1X ONCE IV Last administered on 01/26/17t 02:43; Start 01/26/17 at 02:00; Stop 01/26/17 at 02:29; Status DC Dexamethasone Sodium Phosphate (Decadron) 20 mg STK-MED ONCE .ROUTE ; Start at 02:00; Stop 01/26/17 at 02:01; Status DC Ondansetron HCl 4 mg 4 mg STK-MED ONCE .ROUTE ; Start 01/26/17 at 02:00; Stop at 02:01; Status DC Propofol (Diprivan) 20 ml @ As Directed STK-MED ONCE IV ; Start 01/26/17 at 02: 00; Stop 01/26/17 at 02:01; Status DC Lidocaine HCl 100 mg STK-MED ONCE .ROUTE ; Start 01/26/17 at 02:00; Stop at 02:01; Status DC Fentanyl Citrate (Fentanyl 2ml Vial) 100 mcg STK-MED ONCE .ROUTE ; Start at 02:00; Stop 01/26/17 at 02:01; Status DC Succinylcholine Chloride (Anectine) 200 mg STK-MED ONCE .ROUTE ; Start 01/26/17 at 02:00; Stop 01/26/17 at 02:01; Status DC Rocuronium Philo (Zemuron) 50 mg STK-MED ONCE .ROUTE ; Start 01/26/17 at 02:00 ; Stop 01/26/17 at 02:01; Status DC Ondansetron HCl (Zofran) 4 mg PRN Q6HRS PRN IV Nausea; Start 01/26/17 at 02:15 ; Stop 01/27/17 at 02:14; Status DC Fentanyl Citrate (Fentanyl 2ml Vial) 25 mcg PRN Q5MIN PRN IV MILD PAIN; Start 01/26/17 at 02:15; Stop 01/27/17 at 02:14; Status DC Fentanyl Citrate (Fentanyl 2ml Vial) 50 mcg PRN Q5MIN PRN IV MODERATE PAIN; Start 01/26/17 at 02:15; Stop 01/27/17 at 02:14; Status DC Morphine Sulfate 1 mg 1 mg PRN Q10MIN PRN IV SEVERE PAIN; Start 01/26/17 at 02: 15; Stop 01/27/17 at 02:14; Status DC Lactated Ringer's (Iv Lactated Ringers) 1,000 ml @ 30 mls/hr Q24H IV ; Start at 02:09; Stop 01/26/17 at 14:08; Status DC Lidocaine HCl 2 ml 1X PRN PRN ID IV START; Start 01/26/17 at 02:15; Stop at 02:14; Status DC Hydromorphone HCl (Dilaudid) 0.5 mg PRN Q10MIN PRN IV SEV PAIN,Second choice Last administered on 01/26/17t 06:29; Start 01/26/17 at 02:15; Stop 01/27/17 at 02:14; Status DC Prochlorperazine Edisylate 5 mg 5 mg PACU PRN PRN IV NAUSEA; Start 01/26/17 at 02:15; Stop 01/27/17 at 02:14; Status DC Bacitracin/Sodium Chloride (Iv Sodium Chloride 0.9% 500ml Bag) 500 ml @ 500 mls /hr 1X PERIOP ONCE IRR ; Start 01/26/17 at 03:00; Stop 01/26/17 at 03:59; Status DC Hydrocortisone Sodium Succinate (Solu-Cortef) 100 mg STK-MED ONCE .ROUTE ; Start 01/26/17 at 02:24; Stop 01/26/17 at 02:25; Status DC Sevoflurane (Ultane) 90 ml STK-MED ONCE IH ; Start 01/26/17 at 03:16; Stop 01/26 at 03:17; Status DC Phenylephrine HCl 1 mg STK-MED ONCE IV ; Start 01/26/17 at 03:17; Stop 01/26/17 at 03:18; Status DC Phenylephrine HCl (Bhargav-Synephrine Inj) 10 mg STK-MED ONCE .ROUTE ; Start at 03:32; Stop 01/26/17 at 03:33; Status DC Rocuronium Philo (Zemuron) 50 mg STK-MED ONCE .ROUTE ; Start 01/26/17 at 03:36 ; Stop 01/26/17 at 03:37; Status DC Cellulose 1 each STK-MED ONCE .ROUTE Last administered on 01/26/17 02:47; Start 01/26/17 at 03:38; Stop 01/26/17 at 03:39; Status DC Glycopyrrolate (Robinul) 1 mg STK-MED ONCE .ROUTE ; Start 01/26/17 at 04:23; Stop 01/26/17 at 04:24; Status DC Neostigmine Methylsulfate 5 mg STK-MED ONCE .ROUTE ; Start 01/26/17 at 04:23; Stop 01/26/17 at 04:24; Status DC Sevoflurane (Ultane) 90 ml STK-MED ONCE IH ; Start 01/26/17 at 04:23; Stop 01/26 at 04:24; Status DC Esmolol HCl (Brevibloc) 100 mg STK-MED ONCE IV ; Start 01/26/17 at 04:28; Stop 01/26/17 at 04:29; Status DC Fentanyl Citrate 100 mcg 100 mcg STK-MED ONCE .ROUTE ; Start 01/26/17 at 05:09; Stop 01/26/17 at 05:10; Status DC Metronidazole (FLAGYL 500Mmg PREMIX) 100 ml @ 100 mls/hr Q12HR IV ; Start 01/26 at 09:00; Stop 01/26/17 at 09:00; Status DC Diphenhydramine HCl (Benadryl) 25 mg PRN Q6HRS PRN IV ITCHING Last administered on 01/31/17 11:44; Start 01/26/17 at 05:45 Famotidine (Pepcid) 20 mg BID IVP Last administered on 01/26/17 21:22; Start 01/26/17 at 09:00; Stop 01/27/17 at 08:10; Status DC Enoxaparin Sodium (Lovenox 40mg Syringe) 40 mg Q24H SQ Last administered on 08:48; Start 01/26/17 at 09:00; Stop 01/27/17 at 15:59; Status DC Sodium Chloride 3 ml 3 ml QSHIFT PRN IV AFTER MEDS AND BLOOD DRAWS; Start 01/26 at 05:45 Potassium Chloride/Sodium Chloride 1,000 ml @ 100 mls/hr Q10H IV Last administered on 01/26/17 21:24; Start 01/26/17 at 06:00; Stop 01/27/17 at 13:26 ; Status DC Hydromorphone HCl (Dilaudid Standard ASSEMBLER ADJUSTER) 30 ml @ 0 mls/hr CONT PRN PRN IV PROTOCOL Last administered on 01/28/17 01:36; Start 01/26/17 at 05:45; Stop at 08:37; Status DC Hydromorphone HCl (Dilaudid) 1 mg PRN Q1HR PRN IV MODERATE PAIN Last administered on 01/31/17 23:58; Start 01/26/17 at 05:45; Stop 02/05/17 at 05:18 ; Status DC Ondansetron HCl (Zofran) 4 mg PRN Q6HRS PRN IV NAUESA, 1ST CHOICE Last administered on 01/30/17 14:08; Start 01/26/17 at 05:45; Stop 02/05/17 at 05:19 ; Status DC Throat Lozenges (Chloraseptic) 1 spray PRN Q2HR PRN PO SORE THROAT; Start 01/26 at 05:45 Throat Lozenges (Cepacol Sore Throat Lozenge) 1 west PRN Q2HRS PRN PO SORE THROAT; Start 01/26/17 at 05:45 Nicotine 1 patch 1 patch DAILY TD Last administered on 02/05/17 09:27; Start 01/26/17 at 09:00 Piperacillin Sod/ Tazobactam Sod/ Sodium Chloride (Zosyn/Iv Sodium Chloride 0.9 % 50ml) 50 ml @ 100 mls/hr Q6HRS IV Last administered on 02/01/17 12:48; Start 01/26/17 at 08:00; Stop 02/01/17 at 14:07; Status DC Vancomycin HCl 1 each 1 each PRN DAILY PRN MC SEE COMMENTS Last administered on 01/29/17 08:16; Start 01/26/17 at 07:45; Stop 01/30/17 at 09:19; Status DC Vancomycin HCl 2 gm/Sodium Chloride 500 ml @ 250 mls/hr 1X ONCE IV Last administered on 01/26/17 09:02; Start 01/26/17 at 08:00; Stop 01/26/17 at 09:59 ; Status DC Vancomycin HCl/ Sodium Chloride (Iv Sodium Chloride 0.9% 250ml) 250 ml @ 167 mls/hr Q12H IV Last administered on 01/26/17 21:22; Start 01/26/17 at 21:00; Stop 01/27/17 at 09:36; Status DC Vancomycin HCl 1 each 1X ONCE MC Last administered on 01/27/17 08:30; Start 01/27/17 at 08:30; Stop 01/27/17 at 08:31; Status DC Famotidine 20 mg 20 mg QHS IVP Last administered on 02/01/17 23:16; Start at 21:00; Stop 02/02/17 at 09:49; Status DC Vancomycin HCl/ Sodium Chloride (Iv Sodium Chloride 0.9% 250ml) 250 ml @ 167 mls/hr Q24H IV Last administered on 01/28/17 21:49; Start 01/27/17 at 22:00; Stop 01/28/17 at 23:00; Status DC Vancomycin HCl 1 each 1 each 1X ONCE MC Last administered on 01/28/17 21:30; Start 01/28/17 at 21:30; Stop 01/28/17 at 21:31; Status DC Diltiazem HCl 125 mg/Dextrose 125 ml @ 0 mls/hr CONT PRN IV SEE I/O RECORD Last administered on 01/27/17 23:12; Start 01/27/17 at 11:45; Stop 01/29/17 at 08:37; Status DC Sodium Chloride (Iv Sodium Chloride 0.45%) 1,000 ml @ 100 mls/hr 1X ONCE IV Last administered on 01/27/17 13:30; Start 01/27/17 at 13:30; Stop 01/27/17 at 23:29; Status DC Enoxaparin Sodium (Lovenox Per Pharmacy Treatment Dosing) 1 each PRN DAILY PRN MC SEE COMMENTS; Start 01/27/17 at 16:00; Stop 01/28/17 at 12:15; Status DC Enoxaparin Sodium 75 mg 75 mg Q12HR SQ Last administered on 01/28/17 09:07; Start 01/27/17 at 18:00; Stop 01/28/17 at 12:15; Status DC Magnesium Sulfate/ Dextrose 50 ml @ 25 mls/hr PRN DAILY PRN IV for Mag < 1.7 on am labs; Start 01/27/17 at 17:45; Stop 01/30/17 at 10:08; Status DC Sodium Chloride (Iv Sodium Chloride 0.9% 500ml Bag) 500 ml @ 0 mls/hr QID PRN IV For MAP < 65; Start 01/27/17 at 17:45; Stop 01/30/17 at 10:08; Status DC Info (Anti-Coagulation Monitoring By Pharmacy) 1 each PRN DAILY PRN MC SEE COMMENTS Last administered on 01/28/17 07:45; Start 01/28/17 at 07:45; Stop at 14:34; Status DC Enoxaparin Sodium 40 mg 40 mg Q24H SQ Last administered on 02/03/17 08:19; Start 01/29/17 at 09:00; Stop 02/03/17 at 12:23; Status DC Vancomycin HCl/ Sodium Chloride (Iv Sodium Chloride 0.9% 250ml) 250 ml @ 167 mls/hr Q12H IV Last administered on 01/29/17 21:45; Start 01/29/17 at 10:00; Stop 01/30/17 at 09:19; Status DC Vancomycin HCl 1 each 1X ONCE MC ; Start 01/30/17 at 09:30; Stop 01/30/17 at 09 :31; Status Cancel Oxycodone/ Acetaminophen (Percocet 10/325) 1 tab PRN Q4HRS PRN PO SEVERE, BREAKTHROUGH PAIN Last administered on 02/05/17 09:24; Start 01/29/17 at 08:45 Oxycodone/ Acetaminophen 1 tab 1 tab PRN Q4HRS PRN PO MODERATE PAIN Last administered on 01/31/17 05:49; Start 01/29/17 at 08:45 Sodium Chloride (Iv Sodium Chloride 0.9% 1000ml Bag) 1,000 ml @ 75 mls/hr 1X ONCE IV Last administered on 01/30/17 09:25; Start 01/30/17 at 09:00; Stop at 22:19; Status DC Digoxin 250 mcg 250 mcg 1X ONCE IV Last administered on 01/30/17 09:25; Start 01/30/17 at 09:00; Stop 01/30/17 at 09:01; Status DC Amino Acids/ Electrolytes (Clinimix E 2.75%-5% Solution) 2,000 ml @ 80 mls/hr Q24H IV Last administered on 01/30/17 16:49; Start 01/30/17 at 15:00; Stop at 17:22; Status DC Haloperidol Lactate (Haldol) 5 mg PRN Q4HRS PRN IVP AGITATION Last administered on 01/31/17 05:12; Start 01/31/17 at 05:00 Digoxin 125 mcg 125 mcg DAILY IV Last administered on 02/05/17 09:27; Start at 10:00 Potassium Chloride 50 ml @ 50 mls/hr 1X ONCE IV ; Start 01/31/17 at 09:30; Stop 01/31/17 at 10:29; Status UNV Potassium Chloride (KCl Premix 10meq) 100 ml @ 100 mls/hr Q1H IV Last administered on 01/31/17 12:33; Start 01/31/17 at 09:45; Stop 01/31/17 at 11:44 ; Status DC Lorazepam 2 mg 2 mg PRN Q4HRS PRN IV ANXIETY / AGITATION Last administered on 15:30; Start 01/31/17 at 13:30; Stop 02/04/17 at 15:46; Status DC Multivitamins/ Folic Acid/ Thiamine HCl/ Dextrose/Sodium Chloride (Infuvite Adult/ Iv D5% - 1/2 NS) 1,011.2 ml @ 100 mls/ hr DAILY IV Last administered on 02/03/17 08:22; Start 01/31/17 at 15:30; Stop 02/04/17 at 07:37; Status DC Chlordiazepoxide 25 mg 25 mg PRN Q6HRS PRN PO ANXIETY / AGITATION Last administered on 01/31/17 14:27; Start 01/31/17 at 13:45 Amino Acids/ Electrolytes (Clinimix E 2.75%-5% Solution) 1,000 ml @ 80 mls/hr [id number] IV Last administered on 01/31/17 18:39; Start 01/31/17 at 17:22; Stop 02/01/17 at 07:53; Status DC Albuterol/ Ipratropium 3 ml 3 ml RTQID NEB ; Start 02/01/17 at 08:00; Stop 02/01 at 09:37; Status DC Amino Acids/ Electrolytes/ Dextrose 1,000 ml @ 80 mls/hr [id number] IV Last administered on 02/03/17 05:39; Start 02/01/17 at 08:00; Stop 02/03/17 at 21:59 ; Status DC Sodium Chloride (Iv Sodium Chloride 0.9% 1000ml Bag) 1,000 ml @ 1,000 mls/hr 1X ONCE IV Last administered on 02/01/17 10:04; Start 02/01/17 at 09:30; Stop 02/01/17 at 10:29; Status DC Budesonide 0.5 mg 0.5 mg RTBID NEB Last administered on 02/04/17 07:34; Start 02/01/17 at 09:30; Stop 02/04/17 at 15:46; Status DC Dexmedetomidine HCl 200 mcg/ Sodium Chloride 50 ml @ 0 mls/hr CONT PRN IV PER PROTOCOL Last administered on 02/01/17 23:17; Start 02/01/17 at 09:30; Stop at 10:18; Status DC Sodium Chloride (Iv Sodium Chloride 0.9% 500ml Bag) 500 ml @ 500 mls/hr 1X PRN PRN IV SEE COMMENTS; Start 02/01/17 at 09:30 Atropine Sulfate 0.5 mg 0.5 mg PRN Q5MIN PRN IV SEE COMMENTS; Start 02/01/17 at 09:30 Sodium Chloride (Iv Sodium Chloride 0.9% 1000ml Bag) 1,000 ml @ 1,000 mls/hr 1X ONCE IV Last administered on 02/01/17 10:24; Start 02/01/17 at 09:30; Stop 02/01/17 at 10:29; Status DC Hydrocortisone Sodium Succinate (Solu-Cortef) 100 mg Q8HRS IV Last administered on 02/04/17 13:15; Start 02/01/17 at 09:45; Stop 02/04/17 at 15:46 ; Status DC Ipratropium Philo (Atrovent) 0.5 mg RTQID NEB Last administered on 02/05/17 07:36; Start 02/01/17 at 12:00 Vancomycin HCl 1 each 1 each PRN DAILY PRN MC SEE COMMENTS Last administered on 02/03/17 05:19; Start 02/01/17 at 13:15; Stop 02/03/17 at 07:57; Status DC Meropenem 1 gm/ Sodium Chloride 100 ml @ 200 mls/hr Q8HRS IV Last administered on 02/04/17 06:30; Start 02/01/17 at 14:00; Stop 02/04/17 at 11:51 ; Status DC Vancomycin HCl 1.75 gm/Sodium Chloride 500 ml @ 250 mls/hr 1X ONCE IV Last administered on 02/01/17 17:15; Start 02/01/17 at 15:00; Stop 02/01/17 at 16:59 ; Status DC Vancomycin HCl/ Sodium Chloride (Iv Sodium Chloride 0.9% 250ml) 250 ml @ 167 mls/hr Q12H IV Last administered on 02/02/17 16:41; Start 02/02/17 at 05:00; Stop 02/03/17 at 05:11; Status DC Vancomycin HCl 1 each 1 each 1X ONCE MC Last administered on 02/03/17 04:30; Start 02/03/17 at 04:30; Stop 02/03/17 at 04:31; Status DC Norepinephrine Bitartrate/Sodium Chloride (Levophed Vial/ Iv Sodium Chloride 0.9 % 250ml) 258 ml @ 0 mls/hr CONT PRN IV SEE I/O RECORD; Start 02/01/17 at 23:15 ; Stop 02/04/17 at 10:18; Status DC Famotidine 20 mg 20 mg Q12HR IVP Last administered on 02/05/17 09:21; Start at 11:00 Vancomycin HCl/ Sodium Chloride (Iv Sodium Chloride 0.9% 500ml Bag) 500 ml @ 250 mls/hr Q12H IV Last administered on 02/03/17 05:13; Start 02/03/17 at 05: 00; Stop 02/03/17 at 07:57; Status DC Vancomycin HCl 1 each 1 each 1X ONCE MC ; Start 02/04/17 at 16:30; Stop at 16:31; Status Cancel Albumin Human (Albuminar) 50 ml @ 50 mls/hr Q6HRS IV Last administered on 05:34; Start 02/03/17 at 12:00 Info 1 each PRN DAILY PRN MC SEE COMMENTS Last administered on 02/04/17 15:30 ; Start 02/03/17 at 11:15 Diphenhydramine HCl (Benadryl) 50 mg QHS IVP Last administered on 02/04/17 21: 17; Start 02/03/17 at 21:00 Enoxaparin Sodium (Lovenox Per Pharmacy Treatment Dosing) 1 each PRN DAILY PRN MC SEE COMMENTS; Start 02/03/17 at 12:30 Enoxaparin Sodium 80 mg 80 mg Q12HR SQ Last administered on 02/04/17 21:17; Start 02/03/17 at 21:00; Stop 02/05/17 at 05:18; Status DC Sodium Chloride/ Sodium Acetate/ Potassium Chloride/ Potassium Phosphate/ Magnesium Sulfate/ Calcium Gluconate/ Multivitamins/ Chromium/Copper/ Manganese/ Seleni/ Zn/Total Parenteral Nutrition/Amino Acids/Dextrose/ Fat Emulsion Intravenous (Sodium Chloride/ Potass... 1,512 ml @ 63 mls/hr TPN CONT IV Last administered on 02/03/17 22:16; Start 02/03/17 at 22:00; Stop 02/04/17 at 21:59; Status DC Lidocaine/Sodium Bicarbonate 20 ml 20 ml STK-MED ONCE IJ ; Start 02/03/17 at 15: 29; Stop 02/03/17 at 15:30; Status DC Heparin Sodium/ Sodium Chloride 500 ml @ As Directed STK-MED ONCE .ROUTE ; Start 02/03/17 at 15:29; Stop 02/03/17 at 15:30; Status DC Heparin Sodium/ Sodium Chloride 60 unit 1X ONCE IV Last administered on 16:14; Start 02/03/17 at 15:45; Stop 02/03/17 at 15:46; Status DC Lidocaine/Sodium Bicarbonate (Buffered Lidocaine 1%) 3 ml 1X ONCE IJ Last administered on 02/03/17 16:13; Start 02/03/17 at 15:45; Stop 02/03/17 at 15:46 ; Status DC Amoxicillin/ Clavulanate Potassium 1 tab 1 tab BID PO Last administered on 02/05 09:24; Start 02/04/17 at 21:00 Sodium Acetate/ Potassium Chloride/ Potassium Phosphate/ Magnesium Sulfate/ Multivitamins/ Chromium/Copper/ Manganese/Seleni/ Zn/Thiamine HCl/ Total Parenteral Nutrition/Amino Acids/Dextrose/ Fat Emulsion Intravenous (Potassium Phosphate/ Infuvite Adult/ Multitrace-5 Co... 1,512 ml @ 63 mls/hr TPN CONT IV Last administered on 02/04/17 22:00; Start 02/04/17 at 22:00; Stop at 21:59 Hydrocortisone Sodium Succinate (Solu-Cortef) 100 mg DAILY IV Last administered on 02/05/17 09:22; Start 02/05/17 at 09:00 Enoxaparin Sodium (Lovenox 80mg Syringe) 80 mg Q12HR SQ Last administered on 09:00; Start 02/05/17 at 09:00 Hydromorphone HCl (Dilaudid) 1 mg PRN Q1HR PRN IV MODERATE PAIN; Start at 05:18 Ondansetron HCl (Zofran) 4 mg PRN Q6HRS PRN IV NAUESA, 1ST CHOICE; Start at 05:19 Active Scripts Active Reported Remicade (Infliximab) 100 Mg Vial 100 Mg IV Q8HRS Vitals/I & O Vital Sign - Last 24 Hours 02/04/17 02/04/17 02/04/17 02/04/17 11:00 14:59 15:00 19:20 Temp 97.1 97.7 97.1 97.7 Pulse 76 75 Resp 18 18 B/P 93/67 125/76 Pulse Ox 92 94 92 O2 Delivery Nasal Cannula Nasal Cannula Nasal Cannula Room Air O2 Flow Rate 2.0 2.0 2.0 02/04/17 02/04/17 02/04/17 02/05/17 19:30 20:26 23:33 03:34 Temp 97.8 97.7 97.7 97.8 97.7 97.7 Pulse 68 70 69 Resp 18 18 20 B/P 118/74 108/68 109/61 Pulse Ox 91 91 85 O2 Delivery Nasal Cannula Nasal Cannula Nasal Cannula O2 Flow Rate 2.0 2.0 2.0 2.0 02/05/17 02/05/17 02/05/17 02/05/17 07:00 07:38 09:24 09:27 Temp 98.4 98.4 Pulse 78 78 Resp 22 B/P 105/56 105/56 Pulse Ox 89 94 O2 Delivery Room Air Room Air Room Air O2 Flow Rate 2.0 Intake and Output 02/04/17 02/04/17 02/05/17 15:00 23:00 07:00 Intake Total 1677 ml Output Total 50 ml 400 ml Balance -50 ml 1677 ml -400 ml EVELIO BLANTON III DO Feb 05, 2017 10:06
[2017-02-05] MEDS: TPN PER PHARMACY MC PRN (10:48)
[2017-02-05 11:00] VITALS: BP 91/61
--- NOTE | 2017-02-05 11:49 | PDOC ---
SURGICAL PROGRESS NOTE Subjective waiting for something to eat Vital Signs Vital Signs Date Time Temp Pulse Resp B/P Pulse Ox O2 Delivery O2 Flow Rate FiO2 02/05/17 11:30 92 Room Air 02/05/17 09:27 78 105/56 02/05/17 07:00 98.4 22 2.0 98.4 I&O Intake and Output 02/05/17 07:00 Intake Total 1677 ml Output Total 450 ml Balance 1227 ml Intake Oral 35 ml IV Total 1642 ml Output Urine Total 400 ml Stool Total 50 ml PATIENT HAS A YANCEY: No General: Alert, Cooperative, No acute distress Abdomen: Soft, Other (incision with small amount of sero-purulent drainage, stoma with some liquid black stool) Labs Laboratory Tests Test 02/04/17 05:45 02/05/17 05:40 White Blood Count 10.3x10^3/uL (4.0-11.0) 13.9x10^3/uL (4.0-11.0) Red Blood Count 3.26x10^6/uL (4.30-5.70) 3.23x10^6/uL (4.30-5.70) Hemoglobin 11.3g/dL (13.0-17.5) 11.2g/dL (13.0-17.5) Hematocrit 33.7% (39.0-53.0) 32.8% (39.0-53.0) Mean Corpuscular Volume 103fL (79-100) 101fL (79-100) Mean Corpuscular Hemoglobin 35pg (25-35) 35pg (25-35) Mean Corpuscular Hemoglobin Concent 34g/dL (31-37) 34g/dL (31-37) Red Cell Distribution Width 14.3% (11.5-14.5) 14.8% (11.5-14.5) Platelet Count 250x10^3/uL (140-400) 288x10^3/uL (140-400) Neutrophils (%) (Auto) 80% (31-73) 76% (31-73) Lymphocytes (%) (Auto) 10% (24-48) 15% (24-48) Monocytes (%) (Auto) 9% (0-9) 8% (0-9) Eosinophils (%) (Auto) 0% (0-3) 0% (0-3) Basophils (%) (Auto) 1% (0-3) 1% (0-3) Neutrophils # (Auto) 8.2x10^3uL (1.8-7.7) 10.5x10^3uL (1.8-7.7) Lymphocytes # (Auto) 1.1x10^3/uL (1.0-4.8) 2.1x10^3/uL (1.0-4.8) Monocytes # (Auto) 1.0x10^3/uL (0.0-1.1) 1.2x10^3/uL (0.0-1.1) Eosinophils # (Auto) 0.0x10^3/uL (0.0-0.7) 0.0x10^3/uL (0.0-0.7) Basophils # (Auto) 0.1x10^3/uL (0.0-0.2) 0.1x10^3/uL (0.0-0.2) Sodium Level 146mmol/L (136-145) 147mmol/L (136-145) Potassium Level 3.8mmol/L (3.5-5.1) 3.4mmol/L (3.5-5.1) Chloride Level 111mmol/L (98-107) 112mmol/L (98-107) Carbon Dioxide Level 28mmol/L (21-32) 31mmol/L (21-32) Anion Gap 7 (6-14) 4 (6-14) Blood Urea Nitrogen 26mg/dL (8-26) 25mg/dL (8-26) Creatinine 0.9mg/dL (0.7-1.3) 0.9mg/dL (0.7-1.3) Estimated GFR (Cockcroft-Gault) 83.2 83.2 Glucose Level 123mg/dL (70-99) 91mg/dL (70-99) Calcium Level 8.5mg/dL (8.5-10.1) 8.4mg/dL (8.5-10.1) Phosphorus Level 3.5mg/dL (2.6-4.7) 3.1mg/dL (2.6-4.7) Magnesium Level 2.1mg/dL (1.8-2.4) 2.1mg/dL (1.8-2.4) Triglycerides Level 129mg/dL (0-150) Laboratory Tests Test 02/05/17 05:40 White Blood Count 13.9x10^3/uL (4.0-11.0) Red Blood Count 3.23x10^6/uL (4.30-5.70) Hemoglobin 11.2g/dL (13.0-17.5) Hematocrit 32.8% (39.0-53.0) Mean Corpuscular Volume 101fL (79-100) Mean Corpuscular Hemoglobin 35pg (25-35) Mean Corpuscular Hemoglobin Concent 34g/dL (31-37) Red Cell Distribution Width 14.8% (11.5-14.5) Platelet Count 288x10^3/uL (140-400) Neutrophils (%) (Auto) 76% (31-73) Lymphocytes (%) (Auto) 15% (24-48) Monocytes (%) (Auto) 8% (0-9) Eosinophils (%) (Auto) 0% (0-3) Basophils (%) (Auto) 1% (0-3) Neutrophils # (Auto) 10.5x10^3uL (1.8-7.7) Lymphocytes # (Auto) 2.1x10^3/uL (1.0-4.8) Monocytes # (Auto) 1.2x10^3/uL (0.0-1.1) Eosinophils # (Auto) 0.0x10^3/uL (0.0-0.7) Basophils # (Auto) 0.1x10^3/uL (0.0-0.2) Sodium Level 147mmol/L (136-145) Potassium Level 3.4mmol/L (3.5-5.1) Chloride Level 112mmol/L (98-107) Carbon Dioxide Level 31mmol/L (21-32) Anion Gap 4 (6-14) Blood Urea Nitrogen 25mg/dL (8-26) Creatinine 0.9mg/dL (0.7-1.3) Estimated GFR (Cockcroft-Gault) 83.2 Glucose Level 91mg/dL (70-99) Calcium Level 8.4mg/dL (8.5-10.1) Phosphorus Level 3.1mg/dL (2.6-4.7) Magnesium Level 2.1mg/dL (1.8-2.4) Problem List Problems Medical Problems: (1) Perforated abdominal viscus Status: Acute Assessment/Plan s/p colon resection for perforation continue to wean off NG to [facility]? Dr Maldonado to follow in my absence Problems: RON GROSS MD Feb 05, 2017 11:49
--- NOTE | 2017-02-05 13:46 | PDOC ---
PROGRESS NOTES Assessment Assessment Metabolic encephalopathy. Perforation of small bowel, s/p colon resection. Hypotension events. Crohn's disease. Peritonitis. Pneumonia ? Hx of alcohol use. RECOMMENDATIONS/PLAN: HCT on 01/31 was unremarkable. Continue medical and surgical treatment. Discussed with his son at bedside in ICU before. OT/PT. PAST MEDICAL AND SURGICAL HISTORY: Please see H&P ALLERGY: Reviewed. MEDICATIONS: Refer to MAR REVIEW OF SYSTEMS: Constitutional: No malnutrition, cachexia. Head: No traumatic brain or head injury. Skin: No edema, or rash. Ear: No infection, tinnitus. Eyes: No vision loss, or diplopia. Nose: No bleeding or purulent discharges. Hearing: Hearing loss. Cardiac: No HI, arrhythmia Pulmonary: No CPOD. GI: Crohn's disease. Urinary/genital: UTI. Endocrine: No cousin face, craniofacial dysmorphism, polydactyly. Skeletomuscular: No muscular atrophy, deformity. Neurological: see HP. Psychiatric: Denies drug use/abuse. Otherwise, not [id number] review of systems. PHYSICAL EXAMINATION: General appearance in subacute distress. HEENT: Normocephalic and nontraumatic. Eyes, nose, ears, and throat are unremarkable. Hearing decrease. Neck is supple. No lymphadenopathy. No bruits are heard over the carotid artery. No Crepitus. Cardiovascular: S1, S2, regular rate and rhythm. Pulmonary: Clear to auscultation bilaterally. Abdomen: Bowel sounds are positive. . Extremities: No rash, lesions, or edema. No restriction of range of motion NEUROLOGICAL EXAMINATION: Awake. Oriented to time, place and person. PERRL. EOMI. CN: no focal findings. Muscle tone: within normal. Muscle strength: 4+ DTR: 2- Plantar reflex: Flexor response bilaterally Gait: able to walk. Sensory exam: no acute abnormal findings. No obvious cerebellar signs elicited. F-T-N test fine. Objective Objective Vital Signs Date Time Temp Pulse Resp B/P Pulse Ox O2 Delivery O2 Flow Rate FiO2 02/05/17 11:30 92 Room Air 02/05/17 11:00 98.3 81 22 91/61 98.3 02/05/17 07:00 2.0 Intake and Output 02/05/17 07:00 Intake Total 1677 ml Output Total 450 ml Balance 1227 ml Intake Oral 35 ml IV Total 1642 ml Output Urine Total 400 ml Stool Total 50 ml Vitals Signs Vitals VS - Last 72 Hours, by Label Date Time Temp Pulse Resp B/P Pulse Ox O2 Delivery O2 Flow Rate FiO2 02/05/17 11:30 92 Room Air 02/05/17 11:00 98.3 81 22 91/61 90 Room Air 98.3 02/05/17 09:27 78 105/56 02/05/17 09:24 Room Air 02/05/17 07:38 94 Room Air 02/05/17 07:00 98.4 78 22 105/56 89 Room Air 2.0 98.4 02/05/17 03:34 97.7 69 20 109/61 85 Nasal Cannula 2.0 97.7 02/04/17 23:33 97.7 70 18 108/68 91 2.0 97.7 02/04/17 20:26 Nasal Cannula 2.0 02/04/17 19:30 97.8 68 18 118/74 91 Nasal Cannula 2.0 97.8 02/04/17 19:20 92 Room Air 02/04/17 15:00 97.7 75 18 125/76 94 Nasal Cannula 2.0 97.7 02/04/17 14:59 Nasal Cannula 2.0 02/04/17 11:00 97.1 76 18 93/67 92 Nasal Cannula 2.0 97.1 02/04/17 08:49 75 104/69 02/04/17 07:36 94 Nasal Cannula 2.0 02/04/17 07:00 97.0 75 18 104/69 95 Nasal Cannula 2.0 97.0 Laboratory Laboratory Laboratory Tests Test 02/05/17 05:40 White Blood Count 13.9x10^3/uL (4.0-11.0) Red Blood Count 3.23x10^6/uL (4.30-5.70) Hemoglobin 11.2g/dL (13.0-17.5) Hematocrit 32.8% (39.0-53.0) Mean Corpuscular Volume 101fL (79-100) Mean Corpuscular Hemoglobin 35pg (25-35) Mean Corpuscular Hemoglobin Concent 34g/dL (31-37) Red Cell Distribution Width 14.8% (11.5-14.5) Platelet Count 288x10^3/uL (140-400) Neutrophils (%) (Auto) 76% (31-73) Lymphocytes (%) (Auto) 15% (24-48) Monocytes (%) (Auto) 8% (0-9) Eosinophils (%) (Auto) 0% (0-3) Basophils (%) (Auto) 1% (0-3) Neutrophils # (Auto) 10.5x10^3uL (1.8-7.7) Lymphocytes # (Auto) 2.1x10^3/uL (1.0-4.8) Monocytes # (Auto) 1.2x10^3/uL (0.0-1.1) Eosinophils # (Auto) 0.0x10^3/uL (0.0-0.7) Basophils # (Auto) 0.1x10^3/uL (0.0-0.2) Sodium Level 147mmol/L (136-145) Potassium Level 3.4mmol/L (3.5-5.1) Chloride Level 112mmol/L (98-107) Carbon Dioxide Level 31mmol/L (21-32) Anion Gap 4 (6-14) Blood Urea Nitrogen 25mg/dL (8-26) Creatinine 0.9mg/dL (0.7-1.3) Estimated GFR (Cockcroft-Gault) 83.2 Glucose Level 91mg/dL (70-99) Calcium Level 8.4mg/dL (8.5-10.1) Phosphorus Level 3.1mg/dL (2.6-4.7) Magnesium Level 2.1mg/dL (1.8-2.4) Microbiology 02/01/17 Blood Culture - Preliminary, Resulted NO GROWTH AFTER 4 DAYS 01/26/17 Gram Stain - Final, Complete Medication Medications Current Medications Amoxicillin/ Clavulanate Potassium 1 tab 1 tab BID PO Last administered on 02/05 09:24; Start 02/04/17 at 21:00 Enoxaparin Sodium (Lovenox 80mg Syringe) 80 mg Q12HR SQ Last administered on 09:00; Start 02/05/17 at 09:00 Hydrocortisone Sodium Succinate (Solu-Cortef) 100 mg DAILY IV Last administered on 02/05/17 09:22; Start 02/05/17 at 09:00 Hydromorphone HCl (Dilaudid) 1 mg PRN Q1HR PRN IV MODERATE PAIN; Start at 05:18 Ondansetron HCl 4 mg 4 mg PRN Q6HRS PRN IV NAUESA, 1ST CHOICE; Start 02/05/17 at 05:19 Sodium Acetate/ Potassium Chloride/ Potassium Phosphate/ Magnesium Sulfate/ Multivitamins/ Chromium/Copper/ Manganese/Seleni/ Zn/Thiamine HCl/ Total Parenteral Nutrition/Amino Acids/Dextrose/ Fat Emulsion Intravenous (Potassium Phosphate/ Infuvite Adult/ Multitrace-5 Co... 1,512 ml @ 63 mls/hr TPN CONT IV Last administered on 02/04/17t 22:00; Start 02/04/17 at 22:00; Stop at 21:59 Sodium Acetate/ Potassium Acetate/ Potassium Phosphate/ Magnesium Sulfate/ Multivitamins/ Chromium/Copper/ Manganese/Seleni/ Zn/Thiamine HCl/ Total Parenteral Nutrition/Amino Acids/Dextrose/ Fat Emulsion Intravenous (Potassium Phosphate/ Infuvite Adult/ Multitrace-5 Conc/ Tpn - Tpn Flu... 1,512 ml @ 63 mls/hr TPN CONT IV ; Start 02/05/17 at 22:00; Stop 02/06/17 at 21:59 Vancomycin HCl 1 each 1X ONCE MC ; Start 02/04/17 at 16:30; Stop 02/04/17 at 16 :31; Status Cancel Comment Review of Relevant I have reviewed the following items manuel (where applicable) has been applied. JORGE LUIS WISDOM MD Feb 05, 2017 13:45
[2017-02-05 15:00] VITALS: BP 119/76
[2017-02-05 19:00] VITALS: BP 105/79
[2017-02-05] MEDS: DIPHENHYDRAMINE 50 MG/ML VIAL IVP SCH (21:00)
[2017-02-05] MEDS ORDERED: TOTAL PARENTERAL NUTRITION IV SCH ×10 (22:00)
[2017-02-05] MEDS ORDERED: AMINO ACIDS IV SCH ×10 (22:00)
[2017-02-05] MEDS ORDERED: DEXTROSE 70% IV SCH ×10 (22:00)
[2017-02-05] MEDS ORDERED: [UNRECOGNIZED DRUG - OTHER] IV SCH ×10 (22:00)
[2017-02-05 23:00] VITALS: BP 99/73
[2017-02-06 03:00] VITALS: BP 127/83
[2017-02-06] MEDS ORDERED: DIPHENHYDRAMINE 50 MG/ML VIAL. IV PRN (05:09)
[2017-02-06] MEDS ORDERED: DIPHENHYDRAMINE 50 MG/ML VIAL. IVP SCH (05:10)
[2017-02-06] MEDS ORDERED: CHLORDIAZEPOXIDE HCL 25 MG PO PRN (05:10)
[2017-02-06 06:22] LABS: CALCIUM 8.2 mg/dL (8.5-10.1); CREATININE 0.8 mg/dL (0.7-1.3); GFR 95.3; POTASSIUM 3.8 mmol/L (3.5-5.1)
[2017-02-06 06:26] LABS: PHOSPHORUS 3.3 mg/dL (2.6-4.7)
[2017-02-06 06:45] LABS: BASO # 0.1 x10^3/uL (0.0-0.2); BASO % 0 % (0-3); EOS % 0 % (0-3); HEMATOCRIT 38.4 % (39.0-53.0); HEMOGLOBIN 12.7 g/dL (13.0-17.5); LYMPH # 1.4 x10^3/uL (1.0-4.8); LYMPH % 8 % (24-48); MEAN CORPUSCULAR HEMOGLOBIN 34 pg (25-35); MEAN CORPUSCULAR HGB CONC 33 g/dL (31-37); MEAN CORPUSCULAR VOLUME 102 fL (79-100); MONO % 8 % (0-9); NEUT % 84 % (31-73); PLATELET COUNT 324 x10^3/uL (140-400); RED BLOOD COUNT 3.76 x10^6/uL (4.30-5.70); RED CELL DISTRIBUTION WIDTH 14.6 % (11.5-14.5); WHITE BLOOD COUNT 18.6 x10^3/uL (4.0-11.0)
[2017-02-06] MEDS: IPRATROPIUM BROMIDE 0.5 MG/2.5 ML NEBU. NEB SCH ×2 (06:51→10:45)
[2017-02-06 07:00] VITALS: BP 100/69
--- NOTE | 2017-02-06 07:57 | PDOC ---
SURGICAL PROGRESS NOTE Subjective Doing ok, no nausea, stool and gas in colostomy bag. Vital Signs Vital Signs Date Time Temp Pulse Resp B/P Pulse Ox O2 Delivery O2 Flow Rate FiO2 02/06/17 03:00 97.7 95 18 127/83 93 Room Air 97.7 02/05/17 23:13 2.0 I&O Intake and Output 02/06/17 07:00 Intake Total 120 ml Output Total 3305 ml Balance -3185 ml Intake Oral 120 ml Output Urine Total 2075 ml Stool Total 180 ml Drainage Total 450 ml Other 600 ml PATIENT HAS A YANCEY: No General: Alert, Oriented X3, Cooperative, mild distress Abdomen: Normal bowel sounds, Soft, No tenderness, Other (wound dreesed with minimal drainage, NGT minimal bilious output) Labs Laboratory Tests Test 02/05/17 05:40 02/06/17 05:55 White Blood Count 13.9x10^3/uL (4.0-11.0) 18.6x10^3/uL (4.0-11.0) Red Blood Count 3.23x10^6/uL (4.30-5.70) 3.76x10^6/uL (4.30-5.70) Hemoglobin 11.2g/dL (13.0-17.5) 12.7g/dL (13.0-17.5) Hematocrit 32.8% (39.0-53.0) 38.4% (39.0-53.0) Mean Corpuscular Volume 101fL (79-100) 102fL (79-100) Mean Corpuscular Hemoglobin 35pg (25-35) 34pg (25-35) Mean Corpuscular Hemoglobin Concent 34g/dL (31-37) 33g/dL (31-37) Red Cell Distribution Width 14.8% (11.5-14.5) 14.6% (11.5-14.5) Platelet Count 288x10^3/uL (140-400) 324x10^3/uL (140-400) Neutrophils (%) (Auto) 76% (31-73) 84% (31-73) Lymphocytes (%) (Auto) 15% (24-48) 8% (24-48) Monocytes (%) (Auto) 8% (0-9) 8% (0-9) Eosinophils (%) (Auto) 0% (0-3) 0% (0-3) Basophils (%) (Auto) 1% (0-3) 0% (0-3) Neutrophils # (Auto) 10.5x10^3uL (1.8-7.7) 15.6x10^3uL (1.8-7.7) Lymphocytes # (Auto) 2.1x10^3/uL (1.0-4.8) 1.4x10^3/uL (1.0-4.8) Monocytes # (Auto) 1.2x10^3/uL (0.0-1.1) 1.5x10^3/uL (0.0-1.1) Eosinophils # (Auto) 0.0x10^3/uL (0.0-0.7) 0.0x10^3/uL (0.0-0.7) Basophils # (Auto) 0.1x10^3/uL (0.0-0.2) 0.1x10^3/uL (0.0-0.2) Sodium Level 147mmol/L (136-145) 148mmol/L (136-145) Potassium Level 3.4mmol/L (3.5-5.1) 3.8mmol/L (3.5-5.1) Chloride Level 112mmol/L (98-107) 111mmol/L (98-107) Carbon Dioxide Level 31mmol/L (21-32) 31mmol/L (21-32) Anion Gap 4 (6-14) 6 (6-14) Blood Urea Nitrogen 25mg/dL (8-26) 24mg/dL (8-26) Creatinine 0.9mg/dL (0.7-1.3) 0.8mg/dL (0.7-1.3) Estimated GFR (Cockcroft-Gault) 83.2 95.3 Glucose Level 91mg/dL (70-99) 102mg/dL (70-99) Calcium Level 8.4mg/dL (8.5-10.1) 8.2mg/dL (8.5-10.1) Phosphorus Level 3.1mg/dL (2.6-4.7) 3.3mg/dL (2.6-4.7) Magnesium Level 2.1mg/dL (1.8-2.4) 2.0mg/dL (1.8-2.4) Laboratory Tests Test 02/06/17 05:55 White Blood Count 18.6x10^3/uL (4.0-11.0) Red Blood Count 3.76x10^6/uL (4.30-5.70) Hemoglobin 12.7g/dL (13.0-17.5) Hematocrit 38.4% (39.0-53.0) Mean Corpuscular Volume 102fL (79-100) Mean Corpuscular Hemoglobin 34pg (25-35) Mean Corpuscular Hemoglobin Concent 33g/dL (31-37) Red Cell Distribution Width 14.6% (11.5-14.5) Platelet Count 324x10^3/uL (140-400) Neutrophils (%) (Auto) 84% (31-73) Lymphocytes (%) (Auto) 8% (24-48) Monocytes (%) (Auto) 8% (0-9) Eosinophils (%) (Auto) 0% (0-3) Basophils (%) (Auto) 0% (0-3) Neutrophils # (Auto) 15.6x10^3uL (1.8-7.7) Lymphocytes # (Auto) 1.4x10^3/uL (1.0-4.8) Monocytes # (Auto) 1.5x10^3/uL (0.0-1.1) Eosinophils # (Auto) 0.0x10^3/uL (0.0-0.7) Basophils # (Auto) 0.1x10^3/uL (0.0-0.2) Sodium Level 148mmol/L (136-145) Potassium Level 3.8mmol/L (3.5-5.1) Chloride Level 111mmol/L (98-107) Carbon Dioxide Level 31mmol/L (21-32) Anion Gap 6 (6-14) Blood Urea Nitrogen 24mg/dL (8-26) Creatinine 0.8mg/dL (0.7-1.3) Estimated GFR (Cockcroft-Gault) 95.3 Glucose Level 102mg/dL (70-99) Calcium Level 8.2mg/dL (8.5-10.1) Phosphorus Level 3.3mg/dL (2.6-4.7) Magnesium Level 2.0mg/dL (1.8-2.4) Problem List Problems Medical Problems: (1) Perforated abdominal viscus Status: Acute Assessment/Plan s/p coloectomy due to perforation slow return of bowel function Supportive care ok to transfer to [facility] Problems: DARELL ZELAYA MD Feb 06, 2017 7:57 am
[2017-02-06] MEDS ORDERED: DIGOXIN IV 500 MCG/2 ML AMPUL. ONE (08:07)
--- NOTE | 2017-02-06 09:16 | PDOC ---
PROGRESS NOTES Chief Complaint Chief Complaint CC: Bowel perf 1. SEVERE SEPSIS with ORGAN Dysfunction - new (02/01/17) 1. Colonic perforation: s/p emergent resection of splenic flexure with Paiz pouch on 01/26: on TPN, intermittent suction. 2. Peritonitis, fecaloid material intra op 3. Crohn's: on Remicade on O/p basis, i.e. immunosuppressed 4. VELVET: resolved. . 5. Hyperkalemia: resolved 6. Aflutter: new. resolved (Transient) 6. Thrombocytopenia: resolved 7. Anemia, macrocytic: 8. Leukocytosis: reactive; monitor. History of Present Illness History of Present Illness no flatus no fever doing better no pain Vitals Vitals Vital Signs Date Time Temp Pulse Resp B/P Pulse Ox O2 Delivery O2 Flow Rate FiO2 02/06/17 07:00 98.2 100 20 100/69 91 Room Air 98.2 02/05/17 23:13 2.0 Physical Exam General: Alert, Oriented X3, Cooperative, mild distress Heart: Regular rate, Normal S1, Other Lungs: Clear Abdomen: Normal bowel sounds, Soft, No tenderness, Other (wound dreesed with minimal drainage, NGT minimal bilious output) Extremities: No edema, Normal pulses Skin: No significant lesion Labs LABS Laboratory Tests Test 02/06/17 05:55 White Blood Count 18.6x10^3/uL (4.0-11.0) Red Blood Count 3.76x10^6/uL (4.30-5.70) Hemoglobin 12.7g/dL (13.0-17.5) Hematocrit 38.4% (39.0-53.0) Mean Corpuscular Volume 102fL (79-100) Mean Corpuscular Hemoglobin 34pg (25-35) Mean Corpuscular Hemoglobin Concent 33g/dL (31-37) Red Cell Distribution Width 14.6% (11.5-14.5) Platelet Count 324x10^3/uL (140-400) Neutrophils (%) (Auto) 84% (31-73) Lymphocytes (%) (Auto) 8% (24-48) Monocytes (%) (Auto) 8% (0-9) Eosinophils (%) (Auto) 0% (0-3) Basophils (%) (Auto) 0% (0-3) Neutrophils # (Auto) 15.6x10^3uL (1.8-7.7) Lymphocytes # (Auto) 1.4x10^3/uL (1.0-4.8) Monocytes # (Auto) 1.5x10^3/uL (0.0-1.1) Eosinophils # (Auto) 0.0x10^3/uL (0.0-0.7) Basophils # (Auto) 0.1x10^3/uL (0.0-0.2) Sodium Level 148mmol/L (136-145) Potassium Level 3.8mmol/L (3.5-5.1) Chloride Level 111mmol/L (98-107) Carbon Dioxide Level 31mmol/L (21-32) Anion Gap 6 (6-14) Blood Urea Nitrogen 24mg/dL (8-26) Creatinine 0.8mg/dL (0.7-1.3) Estimated GFR (Cockcroft-Gault) 95.3 Glucose Level 102mg/dL (70-99) Calcium Level 8.2mg/dL (8.5-10.1) Phosphorus Level 3.3mg/dL (2.6-4.7) Magnesium Level 2.0mg/dL (1.8-2.4) Assessment and Plan Assessmemt and Plan Problems Medical Problems: (1) Perforated abdominal viscus Status: Acute Problems: Comment Review of Relevant I have reviewed the following items manuel (where applicable) has been applied. Labs Laboratory Tests Test 02/05/17 05:40 02/06/17 05:55 White Blood Count 13.9x10^3/uL (4.0-11.0) 18.6x10^3/uL (4.0-11.0) Red Blood Count 3.23x10^6/uL (4.30-5.70) 3.76x10^6/uL (4.30-5.70) Hemoglobin 11.2g/dL (13.0-17.5) 12.7g/dL (13.0-17.5) Hematocrit 32.8% (39.0-53.0) 38.4% (39.0-53.0) Mean Corpuscular Volume 101fL (79-100) 102fL (79-100) Mean Corpuscular Hemoglobin 35pg (25-35) 34pg (25-35) Mean Corpuscular Hemoglobin Concent 34g/dL (31-37) 33g/dL (31-37) Red Cell Distribution Width 14.8% (11.5-14.5) 14.6% (11.5-14.5) Platelet Count 288x10^3/uL (140-400) 324x10^3/uL (140-400) Neutrophils (%) (Auto) 76% (31-73) 84% (31-73) Lymphocytes (%) (Auto) 15% (24-48) 8% (24-48) Monocytes (%) (Auto) 8% (0-9) 8% (0-9) Eosinophils (%) (Auto) 0% (0-3) 0% (0-3) Basophils (%) (Auto) 1% (0-3) 0% (0-3) Neutrophils # (Auto) 10.5x10^3uL (1.8-7.7) 15.6x10^3uL (1.8-7.7) Lymphocytes # (Auto) 2.1x10^3/uL (1.0-4.8) 1.4x10^3/uL (1.0-4.8) Monocytes # (Auto) 1.2x10^3/uL (0.0-1.1) 1.5x10^3/uL (0.0-1.1) Eosinophils # (Auto) 0.0x10^3/uL (0.0-0.7) 0.0x10^3/uL (0.0-0.7) Basophils # (Auto) 0.1x10^3/uL (0.0-0.2) 0.1x10^3/uL (0.0-0.2) Sodium Level 147mmol/L (136-145) 148mmol/L (136-145) Potassium Level 3.4mmol/L (3.5-5.1) 3.8mmol/L (3.5-5.1) Chloride Level 112mmol/L (98-107) 111mmol/L (98-107) Carbon Dioxide Level 31mmol/L (21-32) 31mmol/L (21-32) Anion Gap 4 (6-14) 6 (6-14) Blood Urea Nitrogen 25mg/dL (8-26) 24mg/dL (8-26) Creatinine 0.9mg/dL (0.7-1.3) 0.8mg/dL (0.7-1.3) Estimated GFR (Cockcroft-Gault) 83.2 95.3 Glucose Level 91mg/dL (70-99) 102mg/dL (70-99) Calcium Level 8.4mg/dL (8.5-10.1) 8.2mg/dL (8.5-10.1) Phosphorus Level 3.1mg/dL (2.6-4.7) 3.3mg/dL (2.6-4.7) Magnesium Level 2.1mg/dL (1.8-2.4) 2.0mg/dL (1.8-2.4) Laboratory Tests Test 02/06/17 05:55 White Blood Count 18.6x10^3/uL (4.0-11.0) Red Blood Count 3.76x10^6/uL (4.30-5.70) Hemoglobin 12.7g/dL (13.0-17.5) Hematocrit 38.4% (39.0-53.0) Mean Corpuscular Volume 102fL (79-100) Mean Corpuscular Hemoglobin 34pg (25-35) Mean Corpuscular Hemoglobin Concent 33g/dL (31-37) Red Cell Distribution Width 14.6% (11.5-14.5) Platelet Count 324x10^3/uL (140-400) Neutrophils (%) (Auto) 84% (31-73) Lymphocytes (%) (Auto) 8% (24-48) Monocytes (%) (Auto) 8% (0-9) Eosinophils (%) (Auto) 0% (0-3) Basophils (%) (Auto) 0% (0-3) Neutrophils # (Auto) 15.6x10^3uL (1.8-7.7) Lymphocytes # (Auto) 1.4x10^3/uL (1.0-4.8) Monocytes # (Auto) 1.5x10^3/uL (0.0-1.1) Eosinophils # (Auto) 0.0x10^3/uL (0.0-0.7) Basophils # (Auto) 0.1x10^3/uL (0.0-0.2) Sodium Level 148mmol/L (136-145) Potassium Level 3.8mmol/L (3.5-5.1) Chloride Level 111mmol/L (98-107) Carbon Dioxide Level 31mmol/L (21-32) Anion Gap 6 (6-14) Blood Urea Nitrogen 24mg/dL (8-26) Creatinine 0.8mg/dL (0.7-1.3) Estimated GFR (Cockcroft-Gault) 95.3 Glucose Level 102mg/dL (70-99) Calcium Level 8.2mg/dL (8.5-10.1) Phosphorus Level 3.3mg/dL (2.6-4.7) Magnesium Level 2.0mg/dL (1.8-2.4) Microbiology 02/01/17 Blood Culture - Preliminary, Resulted NO GROWTH AFTER 4 DAYS 01/26/17 Gram Stain - Final, Complete Medications Current Medications Sodium Chloride (Iv Sodium Chloride 0.9% 1000ml Bag) 1,000 ml @ 100 mls/hr Q10H IV Last administered on 01/25/17 22:11; Start 01/25/17 at 22:30; Stop at 08:29; Status DC Ondansetron HCl (Zofran) 4 mg 1X ONCE IV Last administered on 01/25/17 22:12 ; Start 01/25/17 at 22:30; Stop 01/25/17 at 22:31; Status DC Fentanyl Citrate (Fentanyl 2ml Vial) 75 mcg PRN Q15MIN PRN IV PAIN GREATER THAN 3/10 Last administered on 01/26/17 00:50; Start 01/25/17 at 22:00; Stop at 21:59; Status DC Fentanyl Citrate (Fentanyl 2ml Vial) 100 mcg 1X ONCE IV Last administered on 22:12; Start 01/25/17 at 22:30; Stop 01/25/17 at 22:31; Status DC Iohexol (Omnipaque 300 Mg/ml) 75 ml 1X ONCE IV Last administered on 01/25/17 23:55; Start 01/26/17 at 00:00; Stop 01/26/17 at 00:01; Status DC Info 1 each 1 each PRN DAILY PRN MC SEE COMMENTS; Start 01/25/17 at 23:45; Stop 01/27/17 at 23:44; Status DC Piperacillin Sod/ Tazobactam Sod 3.375 gm/Sodium Chloride 50 ml @ 100 mls/hr 1X ONCE IV Last administered on 01/26/17 00:56; Start 01/26/17 at 01:00; Stop 01/26/17 at 01:29; Status DC Sodium Chloride (Iv Sodium Chloride 0.9% 1000ml Bag) 1,000 ml @ 100 mls/hr 1X ONCE IV Last administered on 01/26/17 00:53; Start 01/26/17 at 01:00; Stop at 10:59; Status DC Hydromorphone HCl (Dilaudid) 1 mg 1X ONCE IV Last administered on 01/26/17 01 :33; Start 01/26/17 at 01:30; Stop 01/26/17 at 01:34; Status DC Hydromorphone HCl 1 mg 1 mg 1X ONCE IV ; Start 01/26/17 at 02:00; Stop at 02:01; Status DC Piperacillin Sod/ Tazobactam Sod/ Sodium Chloride (Zosyn/Iv Sodium Chloride 0.9 % 50ml) 50 ml @ 100 mls/hr 1X ONCE IV Last administered on 01/26/17 02:43; Start 01/26/17 at 02:00; Stop 01/26/17 at 02:29; Status DC Dexamethasone Sodium Phosphate (Decadron) 20 mg STK-MED ONCE .ROUTE ; Start at 02:00; Stop 01/26/17 at 02:01; Status DC Ondansetron HCl 4 mg 4 mg STK-MED ONCE .ROUTE ; Start 01/26/17 at 02:00; Stop at 02:01; Status DC Propofol (Diprivan) 20 ml @ As Directed STK-MED ONCE IV ; Start 01/26/17 at 02: 00; Stop 01/26/17 at 02:01; Status DC Lidocaine HCl 100 mg STK-MED ONCE .ROUTE ; Start 01/26/17 at 02:00; Stop at 02:01; Status DC Fentanyl Citrate (Fentanyl 2ml Vial) 100 mcg STK-MED ONCE .ROUTE ; Start at 02:00; Stop 01/26/17 at 02:01; Status DC Succinylcholine Chloride (Anectine) 200 mg STK-MED ONCE .ROUTE ; Start 01/26/17 at 02:00; Stop 01/26/17 at 02:01; Status DC Rocuronium [place] (Zemuron) 50 mg STK-MED ONCE .ROUTE ; Start 01/26/17 at 02:00 ; Stop 01/26/17 at 02:01; Status DC Ondansetron HCl (Zofran) 4 mg PRN Q6HRS PRN IV Nausea; Start 01/26/17 at 02:15 ; Stop 01/27/17 at 02:14; Status DC Fentanyl Citrate (Fentanyl 2ml Vial) 25 mcg PRN Q5MIN PRN IV MILD PAIN; Start 01/26/17 at 02:15; Stop 01/27/17 at 02:14; Status DC Fentanyl Citrate (Fentanyl 2ml Vial) 50 mcg PRN Q5MIN PRN IV MODERATE PAIN; Start 01/26/17 at 02:15; Stop 01/27/17 at 02:14; Status DC Morphine Sulfate 1 mg 1 mg PRN Q10MIN PRN IV SEVERE PAIN; Start 01/26/17 at 02: 15; Stop 01/27/17 at 02:14; Status DC Lactated Ringer's (Iv Lactated Ringers) 1,000 ml @ 30 mls/hr Q24H IV ; Start at 02:09; Stop 01/26/17 at 14:08; Status DC Lidocaine HCl 2 ml 1X PRN PRN ID IV START; Start 01/26/17 at 02:15; Stop at 02:14; Status DC Hydromorphone HCl (Dilaudid) 0.5 mg PRN Q10MIN PRN IV SEV PAIN,Second choice Last administered on 01/26/17t 06:29; Start 01/26/17 at 02:15; Stop 01/27/17 at 02:14; Status DC Prochlorperazine Edisylate 5 mg 5 mg PACU PRN PRN IV NAUSEA; Start 01/26/17 at 02:15; Stop 01/27/17 at 02:14; Status DC Bacitracin/Sodium Chloride (Iv Sodium Chloride 0.9% 500ml Bag) 500 ml @ 500 mls /hr 1X PERIOP ONCE IRR ; Start 01/26/17 at 03:00; Stop 01/26/17 at 03:59; Status DC Hydrocortisone Sodium Succinate (Solu-Cortef) 100 mg STK-MED ONCE .ROUTE ; Start 01/26/17 at 02:24; Stop 01/26/17 at 02:25; Status DC Sevoflurane (Ultane) 90 ml STK-MED ONCE IH ; Start 01/26/17 at 03:16; Stop 01/26 at 03:17; Status DC Phenylephrine HCl 1 mg STK-MED ONCE IV ; Start 01/26/17 at 03:17; Stop 01/26/17 at 03:18; Status DC Phenylephrine HCl (Bhargav-Synephrine Inj) 10 mg STK-MED ONCE .ROUTE ; Start at 03:32; Stop 01/26/17 at 03:33; Status DC Rocuronium [place] (Zemuron) 50 mg STK-MED ONCE .ROUTE ; Start 01/26/17 at 03:36 ; Stop 01/26/17 at 03:37; Status DC Cellulose 1 each STK-MED ONCE .ROUTE Last administered on 01/26/17t 02:47; Start 01/26/17 at 03:38; Stop 01/26/17 at 03:39; Status DC Glycopyrrolate (Robinul) 1 mg STK-MED ONCE .ROUTE ; Start 01/26/17 at 04:23; Stop 01/26/17 at 04:24; Status DC Neostigmine Methylsulfate 5 mg STK-MED ONCE .ROUTE ; Start 01/26/17 at 04:23; Stop 01/26/17 at 04:24; Status DC Sevoflurane (Ultane) 90 ml STK-MED ONCE IH ; Start 01/26/17 at 04:23; Stop 01/26 at 04:24; Status DC Esmolol HCl (Brevibloc) 100 mg STK-MED ONCE IV ; Start 01/26/17 at 04:28; Stop 01/26/17 at 04:29; Status DC Fentanyl Citrate 100 mcg 100 mcg STK-MED ONCE .ROUTE ; Start 01/26/17 at 05:09; Stop 01/26/17 at 05:10; Status DC Metronidazole (FLAGYL 500Mmg PREMIX) 100 ml @ 100 mls/hr Q12HR IV ; Start 01/26 at 09:00; Stop 01/26/17 at 09:00; Status DC Diphenhydramine HCl (Benadryl) 25 mg PRN Q6HRS PRN IV ITCHING Last administered on 01/31/17 11:44; Start 01/26/17 at 05:45; Stop 02/06/17 at 05:09 ; Status DC Famotidine (Pepcid) 20 mg BID IVP Last administered on 01/26/17 21:22; Start 01/26/17 at 09:00; Stop 01/27/17 at 08:10; Status DC Enoxaparin Sodium (Lovenox 40mg Syringe) 40 mg Q24H SQ Last administered on 08:48; Start 01/26/17 at 09:00; Stop 01/27/17 at 15:59; Status DC Sodium Chloride 3 ml 3 ml QSHIFT PRN IV AFTER MEDS AND BLOOD DRAWS; Start 01/26 at 05:45 Potassium Chloride/Sodium Chloride 1,000 ml @ 100 mls/hr Q10H IV Last administered on 01/26/17 21:24; Start 01/26/17 at 06:00; Stop 01/27/17 at 13:26 ; Status DC Hydromorphone HCl (Dilaudid Standard [employer] DEVELOPER) 30 ml @ 0 mls/hr CONT PRN PRN IV PROTOCOL Last administered on 01/28/17 01:36; Start 01/26/17 at 05:45; Stop at 08:37; Status DC Hydromorphone HCl (Dilaudid) 1 mg PRN Q1HR PRN IV MODERATE PAIN Last administered on 01/31/17 23:58; Start 01/26/17 at 05:45; Stop 02/05/17 at 05:18 ; Status DC Ondansetron HCl (Zofran) 4 mg PRN Q6HRS PRN IV NAUESA, 1ST CHOICE Last administered on 01/30/17 14:08; Start 01/26/17 at 05:45; Stop 02/05/17 at 05:19 ; Status DC Throat Lozenges (Chloraseptic) 1 spray PRN Q2HR PRN PO SORE THROAT; Start 01/26 at 05:45 Throat Lozenges (Cepacol Sore Throat Lozenge) 1 west PRN Q2HRS PRN PO SORE THROAT; Start 01/26/17 at 05:45 Nicotine 1 patch 1 patch DAILY TD Last administered on 02/05/17 09:27; Start 01/26/17 at 09:00 Piperacillin Sod/ Tazobactam Sod/ Sodium Chloride (Zosyn/Iv Sodium Chloride 0.9 % 50ml) 50 ml @ 100 mls/hr Q6HRS IV Last administered on 02/01/17 12:48; Start 01/26/17 at 08:00; Stop 02/01/17 at 14:07; Status DC Vancomycin HCl 1 each 1 each PRN DAILY PRN MC SEE COMMENTS Last administered on 01/29/17 08:16; Start 01/26/17 at 07:45; Stop 01/30/17 at 09:19; Status DC Vancomycin HCl 2 gm/Sodium Chloride 500 ml @ 250 mls/hr 1X ONCE IV Last administered on 01/26/17 09:02; Start 01/26/17 at 08:00; Stop 01/26/17 at 09:59 ; Status DC Vancomycin HCl/ Sodium Chloride (Iv Sodium Chloride 0.9% 250ml) 250 ml @ 167 mls/hr Q12H IV Last administered on 01/26/17 21:22; Start 01/26/17 at 21:00; Stop 01/27/17 at 09:36; Status DC Vancomycin HCl 1 each 1X ONCE MC Last administered on 01/27/17 08:30; Start 01/27/17 at 08:30; Stop 01/27/17 at 08:31; Status DC Famotidine 20 mg 20 mg QHS IVP Last administered on 02/01/17 23:16; Start at 21:00; Stop 02/02/17 at 09:49; Status DC Vancomycin HCl/ Sodium Chloride (Iv Sodium Chloride 0.9% 250ml) 250 ml @ 167 mls/hr Q24H IV Last administered on 01/28/17 21:49; Start 01/27/17 at 22:00; Stop 01/28/17 at 23:00; Status DC Vancomycin HCl 1 each 1 each 1X ONCE MC Last administered on 01/28/17 21:30; Start 01/28/17 at 21:30; Stop 01/28/17 at 21:31; Status DC Diltiazem HCl 125 mg/Dextrose 125 ml @ 0 mls/hr CONT PRN IV SEE I/O RECORD Last administered on 01/27/17 23:12; Start 01/27/17 at 11:45; Stop 01/29/17 at 08:37; Status DC Sodium Chloride (Iv Sodium Chloride 0.45%) 1,000 ml @ 100 mls/hr 1X ONCE IV Last administered on 01/27/17 13:30; Start 01/27/17 at 13:30; Stop 01/27/17 at 23:29; Status DC Enoxaparin Sodium (Lovenox Per Pharmacy Treatment Dosing) 1 each PRN DAILY PRN MC SEE COMMENTS; Start 01/27/17 at 16:00; Stop 01/28/17 at 12:15; Status DC Enoxaparin Sodium 75 mg 75 mg Q12HR SQ Last administered on 01/28/17 09:07; Start 01/27/17 at 18:00; Stop 01/28/17 at 12:15; Status DC Magnesium Sulfate/ Dextrose 50 ml @ 25 mls/hr PRN DAILY PRN IV for Mag < 1.7 on am labs; Start 01/27/17 at 17:45; Stop 01/30/17 at 10:08; Status DC Sodium Chloride (Iv Sodium Chloride 0.9% 500ml Bag) 500 ml @ 0 mls/hr QID PRN IV For MAP < 65; Start 01/27/17 at 17:45; Stop 01/30/17 at 10:08; Status DC Info (Anti-Coagulation Monitoring By Pharmacy) 1 each PRN DAILY PRN MC SEE COMMENTS Last administered on 01/28/17 07:45; Start 01/28/17 at 07:45; Stop at 14:34; Status DC Enoxaparin Sodium 40 mg 40 mg Q24H SQ Last administered on 02/03/17 08:19; Start 01/29/17 at 09:00; Stop 02/03/17 at 12:23; Status DC Vancomycin HCl/ Sodium Chloride (Iv Sodium Chloride 0.9% 250ml) 250 ml @ 167 mls/hr Q12H IV Last administered on 01/29/17 21:45; Start 01/29/17 at 10:00; Stop 01/30/17 at 09:19; Status DC Vancomycin HCl 1 each 1X ONCE MC ; Start 01/30/17 at 09:30; Stop 01/30/17 at 09 :31; Status Cancel Oxycodone/ Acetaminophen (Percocet 10/325) 1 tab PRN Q4HRS PRN PO SEVERE, BREAKTHROUGH PAIN Last administered on 02/05/17 22:13; Start 01/29/17 at 08:45 Oxycodone/ Acetaminophen 1 tab 1 tab PRN Q4HRS PRN PO MODERATE PAIN Last administered on 01/31/17 05:49; Start 01/29/17 at 08:45 Sodium Chloride (Iv Sodium Chloride 0.9% 1000ml Bag) 1,000 ml @ 75 mls/hr 1X ONCE IV Last administered on 01/30/17 09:25; Start 01/30/17 at 09:00; Stop at 22:19; Status DC Digoxin 250 mcg 250 mcg 1X ONCE IV Last administered on 01/30/17 09:25; Start 01/30/17 at 09:00; Stop 01/30/17 at 09:01; Status DC Amino Acids/ Electrolytes (Clinimix E 2.75%-5% Solution) 2,000 ml @ 80 mls/hr Q24H IV Last administered on 01/30/17 16:49; Start 01/30/17 at 15:00; Stop at 17:22; Status DC Haloperidol Lactate (Haldol) 5 mg PRN Q4HRS PRN IVP AGITATION Last administered on 01/31/17 05:12; Start 01/31/17 at 05:00 Digoxin 125 mcg 125 mcg DAILY IV Last administered on 02/05/17 09:27; Start at 10:00 Potassium Chloride 50 ml @ 50 mls/hr 1X ONCE IV ; Start 01/31/17 at 09:30; Stop 01/31/17 at 10:29; Status UNV Potassium Chloride (KCl Premix 10meq) 100 ml @ 100 mls/hr Q1H IV Last administered on 01/31/17 12:33; Start 01/31/17 at 09:45; Stop 01/31/17 at 11:44 ; Status DC Lorazepam 2 mg 2 mg PRN Q4HRS PRN IV ANXIETY / AGITATION Last administered on 15:30; Start 01/31/17 at 13:30; Stop 02/04/17 at 15:46; Status DC Multivitamins/ Folic Acid/ Thiamine HCl/ Dextrose/Sodium Chloride (Infuvite Adult/ Iv D5% - 1/2 NS) 1,011.2 ml @ 100 mls/ hr DAILY IV Last administered on 02/03/17 08:22; Start 01/31/17 at 15:30; Stop 02/04/17 at 07:37; Status DC Chlordiazepoxide 25 mg 25 mg PRN Q6HRS PRN PO ANXIETY / AGITATION Last administered on 01/31/17 14:27; Start 01/31/17 at 13:45; Stop 02/06/17 at 05:10 ; Status DC Amino Acids/ Electrolytes (Clinimix E 2.75%-5% Solution) 1,000 ml @ 80 mls/hr [id number] IV Last administered on 01/31/17 18:39; Start 01/31/17 at 17:22; Stop 02/01/17 at 07:53; Status DC Albuterol/ Ipratropium 3 ml 3 ml RTQID NEB ; Start 02/01/17 at 08:00; Stop 02/01 at 09:37; Status DC Amino Acids/ Electrolytes/ Dextrose 1,000 ml @ 80 mls/hr [id number] IV Last administered on 02/03/17 05:39; Start 02/01/17 at 08:00; Stop 02/03/17 at 21:59 ; Status DC Sodium Chloride (Iv Sodium Chloride 0.9% 1000ml Bag) 1,000 ml @ 1,000 mls/hr 1X ONCE IV Last administered on 02/01/17 10:04; Start 02/01/17 at 09:30; Stop 02/01/17 at 10:29; Status DC Budesonide 0.5 mg 0.5 mg RTBID NEB Last administered on 02/04/17 07:34; Start 02/01/17 at 09:30; Stop 02/04/17 at 15:46; Status DC Dexmedetomidine HCl 200 mcg/ Sodium Chloride 50 ml @ 0 mls/hr CONT PRN IV PER PROTOCOL Last administered on 02/01/17 23:17; Start 02/01/17 at 09:30; Stop at 10:18; Status DC Sodium Chloride (Iv Sodium Chloride 0.9% 500ml Bag) 500 ml @ 500 mls/hr 1X PRN PRN IV SEE COMMENTS; Start 02/01/17 at 09:30 Atropine Sulfate 0.5 mg 0.5 mg PRN Q5MIN PRN IV SEE COMMENTS; Start 02/01/17 at 09:30 Sodium Chloride (Iv Sodium Chloride 0.9% 1000ml Bag) 1,000 ml @ 1,000 mls/hr 1X ONCE IV Last administered on 02/01/17 10:24; Start 02/01/17 at 09:30; Stop 02/01/17 at 10:29; Status DC Hydrocortisone Sodium Succinate (Solu-Cortef) 100 mg Q8HRS IV Last administered on 02/04/17 13:15; Start 02/01/17 at 09:45; Stop 02/04/17 at 15:46 ; Status DC Ipratropium [place] (Atrovent) 0.5 mg RTQID NEB Last administered on 02/06/17 06:51; Start 02/01/17 at 12:00 Vancomycin HCl 1 each 1 each PRN DAILY PRN MC SEE COMMENTS Last administered on 02/03/17 05:19; Start 02/01/17 at 13:15; Stop 02/03/17 at 07:57; Status DC Meropenem 1 gm/ Sodium Chloride 100 ml @ 200 mls/hr Q8HRS IV Last administered on 02/04/17 06:30; Start 02/01/17 at 14:00; Stop 02/04/17 at 11:51 ; Status DC Vancomycin HCl 1.75 gm/Sodium Chloride 500 ml @ 250 mls/hr 1X ONCE IV Last administered on 02/01/17 17:15; Start 02/01/17 at 15:00; Stop 02/01/17 at 16:59 ; Status DC Vancomycin HCl/ Sodium Chloride (Iv Sodium Chloride 0.9% 250ml) 250 ml @ 167 mls/hr Q12H IV Last administered on 02/02/17 16:41; Start 02/02/17 at 05:00; Stop 02/03/17 at 05:11; Status DC Vancomycin HCl 1 each 1 each 1X ONCE MC Last administered on 02/03/17 04:30; Start 02/03/17 at 04:30; Stop 02/03/17 at 04:31; Status DC Norepinephrine Bitartrate/Sodium Chloride (Levophed Vial/ Iv Sodium Chloride 0.9 % 250ml) 258 ml @ 0 mls/hr CONT PRN IV SEE I/O RECORD; Start 02/01/17 at 23:15 ; Stop 02/04/17 at 10:18; Status DC Famotidine 20 mg 20 mg Q12HR IVP Last administered on 02/05/17 22:15; Start at 11:00 Vancomycin HCl/ Sodium Chloride (Iv Sodium Chloride 0.9% 500ml Bag) 500 ml @ 250 mls/hr Q12H IV Last administered on 02/03/17 05:13; Start 02/03/17 at 05: 00; Stop 02/03/17 at 07:57; Status DC Vancomycin HCl 1 each 1 each 1X ONCE MC ; Start 02/04/17 at 16:30; Stop at 16:31; Status Cancel Albumin Human (Albuminar) 50 ml @ 50 mls/hr Q6HRS IV Last administered on 05:34; Start 02/03/17 at 12:00; Stop 02/05/17 at 11:47; Status DC Info 1 each PRN DAILY PRN MC SEE COMMENTS Last administered on 02/05/17 10:48 ; Start 02/03/17 at 11:15 Diphenhydramine HCl (Benadryl) 50 mg QHS IVP Last administered on 02/04/17 21: 17; Start 02/03/17 at 21:00; Stop 02/06/17 at 05:10; Status DC Enoxaparin Sodium (Lovenox Per Pharmacy Treatment Dosing) 1 each PRN DAILY PRN MC SEE COMMENTS; Start 02/03/17 at 12:30 Enoxaparin Sodium 80 mg 80 mg Q12HR SQ Last administered on 02/04/17 21:17; Start 02/03/17 at 21:00; Stop 02/05/17 at 05:18; Status DC Sodium Chloride/ Sodium Acetate/ Potassium Chloride/ Potassium Phosphate/ Magnesium Sulfate/ Calcium Gluconate/ Multivitamins/ Chromium/Copper/ Manganese/ Seleni/ Zn/Total Parenteral Nutrition/Amino Acids/Dextrose/ Fat Emulsion Intravenous (Sodium Chloride/ Potass... 1,512 ml @ 63 mls/hr TPN CONT IV Last administered on 02/03/17 22:16; Start 02/03/17 at 22:00; Stop 02/04/17 at 21:59; Status DC Lidocaine/Sodium Bicarbonate 20 ml 20 ml STK-MED ONCE IJ ; Start 02/03/17 at 15: 29; Stop 02/03/17 at 15:30; Status DC Heparin Sodium/ Sodium Chloride 500 ml @ As Directed STK-MED ONCE .ROUTE ; Start 02/03/17 at 15:29; Stop 02/03/17 at 15:30; Status DC Heparin Sodium/ Sodium Chloride 60 unit 1X ONCE IV Last administered on 16:14; Start 02/03/17 at 15:45; Stop 02/03/17 at 15:46; Status DC Lidocaine/Sodium Bicarbonate (Buffered Lidocaine 1%) 3 ml 1X ONCE IJ Last administered on 02/03/17 16:13; Start 02/03/17 at 15:45; Stop 02/03/17 at 15:46 ; Status DC Amoxicillin/ Clavulanate Potassium 1 tab 1 tab BID PO Last administered on 02/05 22:13; Start 02/04/17 at 21:00 Sodium Acetate/ Potassium Chloride/ Potassium Phosphate/ Magnesium Sulfate/ Multivitamins/ Chromium/Copper/ Manganese/Seleni/ Zn/Thiamine HCl/ Total Parenteral Nutrition/Amino Acids/Dextrose/ Fat Emulsion Intravenous (Potassium Phosphate/ Infuvite Adult/ Multitrace-5 Co... 1,512 ml @ 63 mls/hr TPN CONT IV Last administered on 02/04/17 22:00; Start 02/04/17 at 22:00; Stop at 21:59; Status DC Hydrocortisone Sodium Succinate (Solu-Cortef) 100 mg DAILY IV Last administered on 02/05/17 09:22; Start 02/05/17 at 09:00 Enoxaparin Sodium (Lovenox 80mg Syringe) 80 mg Q12HR SQ Last administered on 22:13; Start 02/05/17 at 09:00 Hydromorphone HCl (Dilaudid) 1 mg PRN Q1HR PRN IV MODERATE PAIN; Start at 05:18 Ondansetron HCl 4 mg 4 mg PRN Q6HRS PRN IV NAUESA, 1ST CHOICE; Start 02/05/17 at 05:19 Sodium Acetate/ Potassium Acetate/ Potassium Phosphate/ Magnesium Sulfate/ Multivitamins/ Chromium/Copper/ Manganese/Seleni/ Zn/Thiamine HCl/ Total Parenteral Nutrition/Amino Acids/Dextrose/ Fat Emulsion Intravenous (Potassium Phosphate/ Infuvite Adult/ Multitrace-5 Conc/ Tpn - Tpn Flu... 1,512 ml @ 63 mls/hr TPN CONT IV Last administered on 02/05/17 22:16; Start 02/05/17 at 22: 00; Stop 02/06/17 at 21:59 Diphenhydramine HCl (Benadryl) 25 mg PRN Q6HRS PRN IV ITCHING; Start 02/06/17 at 05:09 Chlordiazepoxide (Librium) 25 mg PRN Q6HRS PRN PO ANXIETY / AGITATION; Start at 05:10 Diphenhydramine HCl (Benadryl) 50 mg QHS IVP ; Start 02/06/17 at 05:10 Digoxin (Lanoxin) 500 mcg STK-MED ONCE .ROUTE ; Start 02/06/17 at 08:07; Stop at 08:08; Status DC Active Scripts Active Reported Remicade (Infliximab) 100 Mg Vial 100 Mg IV Q8HRS Vitals/I & O Vital Sign - Last 24 Hours 02/05/17 02/05/17 02/05/17 02/05/17 09:24 09:27 11:00 11:30 Temp 98.3 98.3 Pulse 78 81 Resp 22 B/P 105/56 91/61 Pulse Ox 90 92 O2 Delivery Room Air Room Air Room Air 02/05/17 02/05/17 02/05/17 02/05/17 15:00 15:30 18:47 19:00 Temp 97.6 98.2 97.6 98.2 Pulse 80 79 Resp 20 18 B/P 119/76 105/79 Pulse Ox 92 94 92 O2 Delivery Room Air Room Air Room Air Room Air 02/05/17 02/05/17 02/05/17 02/05/17 20:02 22:13 23:00 23:13 Temp 98.1 98.1 Pulse 88 Resp 16 18 16 B/P 99/73 Pulse Ox 92 91 91 O2 Delivery Room Air Room Air Nasal Cannula O2 Flow Rate 2.0 02/06/17 02/06/17 03:00 07:00 Temp 97.7 98.2 97.7 98.2 Pulse 95 100 Resp 18 20 B/P 127/83 100/69 Pulse Ox 93 91 O2 Delivery Room Air Room Air Intake and Output 02/05/17 02/05/17 02/06/17 15:00 23:00 07:00 Intake Total 120 ml Output Total 600 ml 1705 ml 1000 ml Balance -600 ml -1585 ml -1000 ml OLIVIA FULTON MD Feb 06, 2017 09:16
[2017-02-06] MEDS: NICOTINE 21MG PATCH. TD SCH (09:30)
[2017-02-06] MEDS: FAMOTIDINE 20 MG/2 ML VIAL IVP SCH (09:31)
[2017-02-06] MEDS: DIGOXIN 500 MCG/2 ML AMPUL. IV SCH (09:31)
[2017-02-06] MEDS: AMOXICILLIN/K CLAV 875/125MG TABLET. PO SCH (09:31)
[2017-02-06] MEDS: HYDROCORTISONE SOD SUCC/PF 100 MG/2 ML VIAL. IV SCH (09:32)
--- NOTE | 2017-02-06 10:12 | PDOC ---
Infectious Disease Note Subjective Subjective pt feeling better, walking ROS ROS GEN: Denies fevers, chills, sweats HEENT: Denies blurred vision, sore throat CV: Denies chest pain RESP: Denies shortness of air, cough GI: Denies n/v/d NEURO: Denies confusion, dizziness MSK: Denies weakness, joint pain/swelling Vital Sign Vital Signs Vital Signs Date Time Temp Pulse Resp B/P Pulse Ox O2 Delivery O2 Flow Rate FiO2 02/06/17 09:31 100 02/06/17 07:00 98.2 20 100/69 91 Room Air 98.2 02/05/17 23:13 2.0 Physical Exam PHYSICAL EXAM GENERAL: NAD, Alert HEENT: PERRL, OC/OP NECK: Supple, no JVD, no LN LUNGS: Clear HEART: S1S2, no gallop, no murmur ABD: Soft, NT, no organomegaly, no rebound EXT: No edema, no cyanosis SUP[employer]Y CH[employer] ASSOCIATE: Alert, oriented x 3, no focal neurologic deficit SKIN: No rash IV: ok Labs Lab Laboratory Tests Test 02/06/17 05:55 White Blood Count 18.6x10^3/uL (4.0-11.0) Red Blood Count 3.76x10^6/uL (4.30-5.70) Hemoglobin 12.7g/dL (13.0-17.5) Hematocrit 38.4% (39.0-53.0) Mean Corpuscular Volume 102fL (79-100) Mean Corpuscular Hemoglobin 34pg (25-35) Mean Corpuscular Hemoglobin Concent 33g/dL (31-37) Red Cell Distribution Width 14.6% (11.5-14.5) Platelet Count 324x10^3/uL (140-400) Neutrophils (%) (Auto) 84% (31-73) Lymphocytes (%) (Auto) 8% (24-48) Monocytes (%) (Auto) 8% (0-9) Eosinophils (%) (Auto) 0% (0-3) Basophils (%) (Auto) 0% (0-3) Neutrophils # (Auto) 15.6x10^3uL (1.8-7.7) Lymphocytes # (Auto) 1.4x10^3/uL (1.0-4.8) Monocytes # (Auto) 1.5x10^3/uL (0.0-1.1) Eosinophils # (Auto) 0.0x10^3/uL (0.0-0.7) Basophils # (Auto) 0.1x10^3/uL (0.0-0.2) Sodium Level 148mmol/L (136-145) Potassium Level 3.8mmol/L (3.5-5.1) Chloride Level 111mmol/L (98-107) Carbon Dioxide Level 31mmol/L (21-32) Anion Gap 6 (6-14) Blood Urea Nitrogen 24mg/dL (8-26) Creatinine 0.8mg/dL (0.7-1.3) Estimated GFR (Cockcroft-Gault) 95.3 Glucose Level 102mg/dL (70-99) Calcium Level 8.2mg/dL (8.5-10.1) Phosphorus Level 3.3mg/dL (2.6-4.7) Magnesium Level 2.0mg/dL (1.8-2.4) Micro ANAEROBIC-AEROBIC CULTURE Preliminary Preliminary report ANAEROBIC RES 1 PENDING ANAEROBIC RES 2 Preliminary Bacteroides fragilis Heavy growth Beta lactamase positive. Performed at: [address] [id number] [employer] [facility] Director: Preethi Nguyen MD, Phone: [phone] AEROBIC CULT Final Final report AEROBIC RES 1 Final Comment Streptococcus bovis group Heavy growth AEROBIC RES 2 Final Comment Haemophilus parainfluenzae Heavy growth Beta lactamase negative. AEROBIC RES 3 Final Mixed site kale. Objective Assessment Perforated colon s/p surgery Peritonitis Sepsis with hypotension Crohns disease on remicaid Recent pneumonia smoker Plan Plan of Care po augmentin supportive care KELSIE CANTU MD Feb 06, 2017 10:12
[2017-02-06 11:00] VITALS: BP 108/62
[2017-02-06] MEDS: OXYCODONE/APAP 10/325 TABLET. PO PRN (11:14)
[2017-02-06] MEDS: TPN PER PHARMACY MC PRN (11:26)
[2017-02-06 15:00] VITALS: BP 107/54
--- NOTE | 2017-02-06 15:33 | PDOC ---
PROGRESS NOTES Assessment Assessment Metabolic encephalopathy. Perforation of small bowel, s/p colon resection. Hypotension events. Crohn's disease. Peritonitis. Pneumonia ? Hx of alcohol use. RECOMMENDATIONS/PLAN: Continue medical and surgical treatment. Discussed with his son at bedside in ICU before. OT/PT. HCT on 01/31 was unremarkable. PAST MEDICAL AND SURGICAL HISTORY: Please see H&P ALLERGY: Reviewed. MEDICATIONS: Refer to MAR REVIEW OF SYSTEMS: Constitutional: No malnutrition, cachexia. Head: No traumatic brain or head injury. Skin: No edema, or rash. Ear: No infection, tinnitus. Eyes: No vision loss, or diplopia. Nose: No bleeding or purulent discharges. Hearing: Hearing loss. Cardiac: No HI, arrhythmia Pulmonary: No CPOD. GI: Crohn's disease. Urinary/genital: UTI. Endocrine: No cousin face, craniofacial dysmorphism, polydactyly. Skeletomuscular: No muscular atrophy, deformity. Neurological: see HP. Psychiatric: Denies drug use/abuse. Otherwise, not [id number] review of systems. PHYSICAL EXAMINATION: General appearance in subacute distress. HEENT: Normocephalic and nontraumatic. Eyes, nose, ears, and throat are unremarkable. Hearing decrease. Neck is supple. No lymphadenopathy. No bruits are heard over the carotid artery. No Crepitus. Cardiovascular: S1, S2, regular rate and rhythm. Pulmonary: Clear to auscultation bilaterally. Abdomen: Bowel sounds are positive. . Extremities: No rash, lesions, or edema. No restriction of range of motion NEUROLOGICAL EXAMINATION: Awake. Oriented to time, place and person. PERRL. EOMI. CN: no focal findings. Muscle tone: within normal. Muscle strength: 4+ DTR: 2- Plantar reflex: Flexor response bilaterally Gait: able to walk. Sensory exam: no acute abnormal findings. No obvious cerebellar signs elicited. F-T-N test fine. Objective Objective Vital Signs Date Time Temp Pulse Resp B/P Pulse Ox O2 Delivery O2 Flow Rate FiO2 02/06/17 15:06 Room Air 02/06/17 11:00 97.9 99 20 108/62 92 97.9 02/05/17 23:13 2.0 Intake and Output 02/06/17 07:00 Intake Total 120 ml Output Total 3305 ml Balance -3185 ml Intake Oral 120 ml Output Urine Total 2075 ml Stool Total 180 ml Drainage Total 450 ml Other 600 ml Vitals Signs Vitals VS - Last 72 Hours, by Label Date Time Temp Pulse Resp B/P Pulse Ox O2 Delivery O2 Flow Rate FiO2 02/06/17 15:06 Room Air 02/06/17 13:17 Room Air 02/06/17 11:00 97.9 99 20 108/62 92 Room Air 97.9 02/06/17 10:46 96 Room Air 02/06/17 09:31 100 02/06/17 07:00 98.2 100 20 100/69 91 Room Air 98.2 02/06/17 07:00 96 Room Air 02/06/17 03:00 97.7 95 18 127/83 93 Room Air 97.7 02/05/17 23:13 16 91 Nasal Cannula 2.0 02/05/17 23:00 98.1 88 18 99/73 91 Room Air 98.1 02/05/17 22:13 16 92 02/05/17 20:02 Room Air 02/05/17 19:00 98.2 79 18 105/79 92 Room Air 98.2 02/05/17 18:47 Room Air 02/05/17 15:30 94 Room Air 02/05/17 15:00 97.6 80 20 119/76 92 Room Air 97.6 02/05/17 11:30 92 Room Air 02/05/17 11:00 98.3 81 22 91/61 90 Room Air 98.3 02/05/17 09:27 78 105/56 02/05/17 09:24 Room Air 02/05/17 07:38 94 Room Air 02/05/17 07:00 98.4 78 22 105/56 89 Room Air 2.0 98.4 Laboratory Laboratory Laboratory Tests Test 02/06/17 05:55 White Blood Count 18.6x10^3/uL (4.0-11.0) Red Blood Count 3.76x10^6/uL (4.30-5.70) Hemoglobin 12.7g/dL (13.0-17.5) Hematocrit 38.4% (39.0-53.0) Mean Corpuscular Volume 102fL (79-100) Mean Corpuscular Hemoglobin 34pg (25-35) Mean Corpuscular Hemoglobin Concent 33g/dL (31-37) Red Cell Distribution Width 14.6% (11.5-14.5) Platelet Count 324x10^3/uL (140-400) Neutrophils (%) (Auto) 84% (31-73) Lymphocytes (%) (Auto) 8% (24-48) Monocytes (%) (Auto) 8% (0-9) Eosinophils (%) (Auto) 0% (0-3) Basophils (%) (Auto) 0% (0-3) Neutrophils # (Auto) 15.6x10^3uL (1.8-7.7) Lymphocytes # (Auto) 1.4x10^3/uL (1.0-4.8) Monocytes # (Auto) 1.5x10^3/uL (0.0-1.1) Eosinophils # (Auto) 0.0x10^3/uL (0.0-0.7) Basophils # (Auto) 0.1x10^3/uL (0.0-0.2) Sodium Level 148mmol/L (136-145) Potassium Level 3.8mmol/L (3.5-5.1) Chloride Level 111mmol/L (98-107) Carbon Dioxide Level 31mmol/L (21-32) Anion Gap 6 (6-14) Blood Urea Nitrogen 24mg/dL (8-26) Creatinine 0.8mg/dL (0.7-1.3) Estimated GFR (Cockcroft-Gault) 95.3 Glucose Level 102mg/dL (70-99) Calcium Level 8.2mg/dL (8.5-10.1) Phosphorus Level 3.3mg/dL (2.6-4.7) Magnesium Level 2.0mg/dL (1.8-2.4) Microbiology 02/01/17 Blood Culture - Final, Complete NO GROWTH AFTER 5 DAYS 01/26/17 Gram Stain - Final, Complete Medication Medications Current Medications Chlordiazepoxide (Librium) 25 mg PRN Q6HRS PRN PO ANXIETY / AGITATION; Start at 05:10 Digoxin 500 mcg 500 mcg STK-MED ONCE .ROUTE ; Start 02/06/17 at 08:07; Stop at 08:08; Status DC Diphenhydramine HCl (Benadryl) 25 mg PRN Q6HRS PRN IV ITCHING; Start 02/06/17 at 05:09 Diphenhydramine HCl (Benadryl) 50 mg QHS IVP ; Start 02/06/17 at 05:10 Sodium Acetate/ Potassium Acetate/ Potassium Phosphate/ Magnesium Sulfate/ Calcium Gluconate/ Multivitamins/ Chromium/Copper/ Manganese/Seleni/ Zn/ Thiamine HCl/ Total Parenteral Nutrition/Amino Acids/Dextrose/ Fat Emulsion Intravenous (Potassium Phosphate/Calcium Gluconate/ Infuvite Andre... 1,512 ml @ 63 mls/hr TPN CONT IV ; Start 02/06/17 at 22:00; Stop 02/07/17 at 21:59 Sodium Acetate/ Potassium Acetate/ Potassium Phosphate/ Magnesium Sulfate/ Multivitamins/ Chromium/Copper/ Manganese/Seleni/ Zn/Thiamine HCl/ Total Parenteral Nutrition/Amino Acids/Dextrose/ Fat Emulsion Intravenous (Potassium Phosphate/ Infuvite Adult/ Multitrace-5 Conc/ Tpn - Tpn Flu... 1,512 ml @ 63 mls/hr TPN CONT IV Last administered on 02/05/17t 22:16; Start 02/05/17 at 22: 00; Stop 02/06/17 at 21:59 Comment Review of Relevant I have reviewed the following items manuel (where applicable) has been applied. JORGE LUIS WISDOM MD Feb 06, 2017 15:32
[2017-02-06] MEDS ORDERED: TOTAL PARENTERAL NUTRITION IV SCH ×11 (22:00)
[2017-02-06] MEDS ORDERED: [UNRECOGNIZED DRUG - OTHER] IV SCH ×11 (22:00)
[2017-02-06] MEDS ORDERED: DEXTROSE 70% IV SCH ×11 (22:00)
[2017-02-06] MEDS ORDERED: AMINO ACIDS IV SCH ×11 (22:00)
--- NOTE | 2017-02-06 22:11 | DS ---
DATE OF DISCHARGE: 02/06/2017 DISCHARGE DIAGNOSES: 1. Severe sepsis with organ dysfunction, resolving. 2. Colonic perforation, status post emergency resection of splenic flexure with Evans's pouch on 01/26/2017, currently patient on total parenteral nutrition. 3. Peritonitis, resolving. 4. Crohn's disease, currently on Remicade. 5. Acute kidney injury, resolved. 6. Hyperkalemia, resolved. 7. Paroxysmal atrial fibrillation, currently rate controlled. 8. Thrombocytopenia, resolved. 9. Anemia, macrocytic, stable. 10. Leukocytosis, possible reactive, monitor. BRIEF HOSPITAL COURSE: A 71-year-old male patient admitted to the hospital on 01/26/[address] Paula for perforated viscus. During hospitalization, he was evaluated by Dr. Garcai. On 01/26/2017, the patient had a diagnostic laparoscopy and laparotomy with resection of splenic flexure with end colostomy, Veans's pouch. Post-surgery, the patient's hospital course was complicated, he developed paroxysmal atrial fibrillation, evaluated by Cardiology team, Dr. Nguyen. He was started on digoxin and also anticoagulation. Also, the patient had an echocardiogram, which showed LV ejection fraction around 50-55%. Currently, for nutrition he has been getting total parenteral nutrition, which has been monitored by pharmacy. Currently, the patient's electrolytes have been stable and also he was evaluated by Infectious Disease. He is currently on Augmentin. The symptoms have been resolved and WBC is around 18,000, which needs to be monitored at [facility]. During the hospitalization, the patient was evaluated by several consulting physicians, Dr. Quezada, Dr. Mayda Coates, Dr. Nguyen and Dr. Jaylan Coates. Today, the patient is still on intermittent NG suction and able to pass some flatus, clinically improving and no signs of infection noted on exam, deemed clinically stable enough to go to [facility] for continued care. DISCHARGE EXAMINATION: Please see my progress note. DISCHARGE CONDITION: Stable. PROGNOSIS: Good. FOLLOWUP: With Dr. Garcia. DISCHARGE LOCATION: [facility] long-term acute care. Total time spent for discharge is 35 minutes for patient education, counseling, and coordination of care. OLIVIA FULTON MD DR: MARY/marco JOB#: [id number] / [id number] TOMAS
== END 2017-02-06 16:15 | DRG 853 ==
LOC: ER 21:39 → 1 WEST ICU 01-26 00:45 → 4 NORTH 01-29 20:15 → 1 WEST ICU 02-01 09:27 → 4 NORTH 02-03 17:25
PROVIDERS: ADMIT Internal Medicine Hematology & Oncology; ATTEND Internal Medicine Hematology & Oncology
PROC: 0DTE0ZZ Resection of Large Intestine, Open Approach (ICD-10-PCS; principal; 2017-01-26 02:30)
PROC: 0D1L0Z4 Bypass Transverse Colon to Cutaneous, Open Approach (ICD-10-PCS; 2017-01-26 02:30)
PROC: 02HV33Z Insertion of Infusion Device into Superior Vena Cava, Percutaneous Approach (ICD-10-PCS; 2017-02-03)
PROC: B548ZZA Ultrasonography of Superior Vena Cava, Guidance (ICD-10-PCS; 2017-02-03)
DX: A41.9 Sepsis, unspecified organism (principal); K63.1 Perforation of intestine (nontraumatic); K65.9 Peritonitis, unspecified; G93.41 Metabolic encephalopathy; J18.9 Pneumonia, unspecified organism; J96.01 Acute respiratory failure with hypoxia; K65.8 Other peritonitis; R65.21 Severe sepsis with septic shock; D62 Acute posthemorrhagic anemia; E46 Unspecified protein-calorie malnutrition; F10.239 Alcohol dependence with withdrawal, unspecified; I48.92 Unspecified atrial flutter; J95.89 Other postprocedural complications and disorders of respiratory system, not elsewhere classified; J98.11 Atelectasis; K50.90 Crohn's disease, unspecified, without complications; N17.9 Acute kidney failure, unspecified; D69.6 Thrombocytopenia, unspecified; E78.5 Hyperlipidemia, unspecified; E87.5 Hyperkalemia; E87.6 Hypokalemia; F17.210 Nicotine dependence, cigarettes, uncomplicated; G89.18 Other acute postprocedural pain; I48.0 Paroxysmal atrial fibrillation; Z82.49 Family history of ischemic heart disease and other diseases of the circulatory system; Z87.01 Personal history of pneumonia (recurrent); Z87.442 Personal history of urinary calculi; Z80.9 Family history of malignant neoplasm, unspecified
CPT/HCPCS: 36415; 36569; 36600; 70450; 71010; 74000; 74177; 76937; 80048; 80053; 80069; 80202; 81001; 82550; 82805; 83605; 83690; 83735; 84100; 84132; 84300; 84443; 84478; 85007; 85027; 85651; 87040; 87071; 87075; 87205; 87641; 88307; 93005; 93306; 93970; 94640; 94660; 94760; 96361; 96365; 96375; 96376; C1751; C1769; C1892; J0330; J0610; J1100; J1160; J1170; J1200; J1630; J1650; J1720; J2060; J2185; J2370; J2405; J2543; J2704; J2710; J3010; J3370; J3475; J3480; J3490; J7030; J7040; J7050; J7120; J7644; P9046; Q9967; S0028; 97110; 97116; 97530; 97535; 99285-25

== ENCOUNTER → 2017-02-13 | Outpatient (CLI) | payer MEDICARE ==
[2017-02-06 15:00] VITALS: BP 107/54
[~2017-02-13] MED LIST: INFL100V IV
== END | disposition home or self-care (01) ==
LOC: SPEC 16:32
PROVIDERS: ATTEND Surgery
DX: S31.109A Unspecified open wound of abdominal wall, unspecified quadrant without penetration into peritoneal cavity, initial encounter (principal); W19.XXXA Unspecified fall, initial encounter; Y93.89 Activity, other specified; Y92.89 Other specified places as the place of occurrence of the external cause; Y99.8 Other external cause status
CPT/HCPCS: 87071; 87075; 87205

== ENCOUNTER 2017-03-08 19:23 | Emergency (ER) | payer MEDICARE ==
[~2017-03-08] VITALS: Ht 185.4 cm; Wt 66.2 kg
[2017-03-08 19:38] VITALS: BP 93/59
--- NOTE | 2017-03-08 20:03 | PHYS DOC ---
Past Medical History Past Medical History: Kidney Stone, Pneumonia, Other Additional Past Medical Histor: CROHNS, LOW BP Past Surgical History: Other Additional Past Surgical Histo: COLOSTOMY, BOWEL RESECTION Alcohol Use: Occasionally Drug Use: Marijuana Adult General Chief Complaint Chief Complaint: POST-OP PROBLEM HPI HPI Patient is a 71 year old male who presents to the ED with a complaint of purulent drainage from an abdominal wall incision. The patient had surgery on for a ruptured colon, he has a colostomy. He has been improving at home and is looking forward to his colostomy takedown in about April. Today, he stood up and noticed pus running down his leg. Patient's significant other says it appeared to be pus with some pinkish color and also a stringy red thing in it. The patient has felt well. He's had no fever or chills. The incision in question has not had any redness, swelling, or tenderness. He doesn't have any pain. His midline incision continues to heal. Surgeon, Dr. Garcia Review of Systems Review of Systems Constitutional: Denies fever or chills [] HENT: Denies nasal congestion or sore throat [] Respiratory: Denies cough or shortness of breath [] GI: His colostomy is functioning normally. Integument: Denies rash or skin lesions [] Neurologic: Denies headache, focal weakness or sensory changes [] Allergies Allergies Allergies Coded Allergies Type Severity Reaction Last Updated Verified No Known Drug Allergies 01/25/17 No Physical Exam Physical Exam Constitutional: Well developed, well nourished, no acute distress, non-toxic appearance. [] HENT: Normocephalic, atraumatic, bilateral external ears normal, nose normal. [ ] Eyes: conjunctiva normal, no discharge. [] Neck: Normal range of motion, no tenderness, supple, no stridor. [] Abdomen: Soft, nondistended. Colostomy in the left mid to upper abdomen appears to be functioning normally and is nontender. Midline incision is healing well with an area that is granulating in and the lower aspect, no evidence of cellulitis or infection. There is a 2 cm horizontal incision in the left lower quadrant that has some superficial dehiscence and when palpated, a small amount of purulent drainage was expressed. The area around the incision is nontender, no fluctuance, a small amount of normal appearing induration, no significant redness. Skin: Warm, dry, no erythema, no rash. [] Extremities: No tenderness, no cyanosis, no clubbing, ROM intact, no edema. [] Neurologic: Alert and oriented X 3, normal motor function, normal sensory function, no focal deficits noted. [] Current Patient Data Vital Signs Vital Signs Date Time Temp Pulse Resp B/P Pulse Ox O2 Delivery O2 Flow Rate FiO2 03/08/17 19:38 97.5 86 16 93/59 98 Room Air 97.5 EKG EKG [] Radiology/Procedures Radiology/Procedures [] Course & Med Decision Making Course & Med Decision Making Pertinent Labs and Imaging studies reviewed. (See chart for details) 71-year-old male who recently had emergency partial colectomy and has a colostomy, healing abdominal wall incisions, presents with an episode of purulent drainage from what appears to be a drain site. On exam, I believe there was a small amount of subcutaneous pus that has drained and there is no evidence of further abscess or infection. There is no evidence of cellulitis. I discussed the case with Dr. Rosado, on-call for Dr. Garcia, who agrees with me that the patient may be observed and follow-up with Dr. Garcia to report the incident and for recheck if needed. I discussed this with the patient and significant other and they're agreeable to that plan. [] Dragon Disclaimer Dragon Disclaimer This electronic medical record was generated, in whole or in part, using a voice recognition dictation system. Departure Departure Impression: Primary Impression: Postoperative wound abscess Disposition: HOME, SELF-CARE Condition: STABLE Referrals: NO PCP (PCP) Additional Instructions: As we discussed, I believe there was a little collection of pus under the skin which has drained itself. I discussed with Dr. Rosado who agrees that we can just watch it at this time. If it continues to drain, you may place a gauze bandage over it. Call Dr. Garcia's office tomorrow to check in. If there is continued drainage, or if any redness, swelling, or pain occurs, you need to have it rechecked. If it seems to be improving, see him as directed. MIKAYLA DC MD Mar 08, 2017 20:03
== END 2017-03-08 20:11 | disposition home or self-care (01) ==
LOC: ER 19:23
DX: K94.02 Colostomy infection (principal); T81.4XXA Infection following a procedure, initial encounter; Y83.3 Surgical operation with formation of external stoma as the cause of abnormal reaction of the patient, or of later complication, without mention of misadventure at the time of the procedure; K50.90 Crohn's disease, unspecified, without complications; F12.10 Cannabis abuse, uncomplicated; Y92.89 Other specified places as the place of occurrence of the external cause; Z93.3 Colostomy status; Z87.442 Personal history of urinary calculi; Z87.01 Personal history of pneumonia (recurrent)
CPT/HCPCS: 99281; 99283

== ENCOUNTER → 2017-04-22 | Outpatient (CLI) | payer MEDICARE ==
[~2017-04-22] MED LIST changes: +DIGO125T PO; +GLUC-126 PO; +MELA3TAB2 PO; +PRED-220 PO
[2017-04-22 10:39] LABS: BASO # 0.1 x10^3/uL (0.0-0.2); BASO % 1 % (0-3); EOS % 0 % (0-3); HEMATOCRIT 44.9 % (39.0-53.0); HEMOGLOBIN 15.4 g/dL (13.0-17.5); LYMPH # 1.8 x10^3/uL (1.0-4.8); LYMPH % 15 % (24-48); MEAN CORPUSCULAR HEMOGLOBIN 34 pg (25-35); MEAN CORPUSCULAR HGB CONC 34 g/dL (31-37); MEAN CORPUSCULAR VOLUME 98 fL (79-100); MONO % 5 % (0-9); NEUT % 80 % (31-73); PLATELET COUNT 191 x10^3/uL (140-400); RED BLOOD COUNT 4.59 x10^6/uL (4.30-5.70); RED CELL DISTRIBUTION WIDTH 16.3 % (11.5-14.5); WHITE BLOOD COUNT 12.1 x10^3/uL (4.0-11.0)
[2017-04-22 10:54] LABS: ALBUMIN 3.4 g/dL (3.4-5.0); CALCIUM 9.3 mg/dL (8.5-10.1); CREATININE 0.9 mg/dL (0.7-1.3); GFR 83.2; POTASSIUM 4.5 mmol/L (3.5-5.1)
== END | disposition home or self-care (01) ==
LOC: SURGPAT 09:18
PROVIDERS: ATTEND Surgery
DX: Z01.812 Encounter for preprocedural laboratory examination (principal)
CPT/HCPCS: 36415; 80048; 82040; 85027

== ENCOUNTER → 2017-04-28 | Day surgery (SDC) | payer MEDICARE ==
[~2017-04-28] MED LIST changes: +IV RINGERS,LACTATED 1000ML 1,000 ML IV SCH; +LIDOCAINE 2% PF Vial for OR 5 ML VIAL. ONE; +PROPOFOL 20 ML IV ONE
[2017-04-28 16:53] VITALS: BP 108/75
== END | disposition home or self-care (01) ==
LOC: ENDOS 14:27
PROVIDERS: ATTEND Internal Medicine Gastroenterology
DX: Z09 Encounter for follow-up examination after completed treatment for conditions other than malignant neoplasm (principal); K64.0 First degree hemorrhoids; K50.10 Crohn's disease of large intestine without complications; F17.200 Nicotine dependence, unspecified, uncomplicated; K26.9 Duodenal ulcer, unspecified as acute or chronic, without hemorrhage or perforation; K52.9 Noninfective gastroenteritis and colitis, unspecified; I48.91 Unspecified atrial fibrillation; J44.9 Chronic obstructive pulmonary disease, unspecified; M19.90 Unspecified osteoarthritis, unspecified site; F41.9 Anxiety disorder, unspecified; Z87.442 Personal history of urinary calculi; Z72.89 Other problems related to lifestyle; Z72.0 Tobacco use
CPT/HCPCS: 44404; J2704

== ENCOUNTER 2017-04-29 09:36 | Inpatient (IN) | payer MEDICARE ==
[2017-04-29] VITALS (8 sets, daily range): BP systolic 118–144; BP diastolic 77–90
[~2017-04-29] VITALS: Ht 185.4 cm; Wt 73.9 kg
[~2017-04-29 09:36] MED LIST changes: +HYDROmorphone 2 MG/ML VIAL IV PRN; +LIDOCAINE 1% 1 ML SYRINGE. ID PRN; -LIDOCAINE 2% PF Vial for OR 5 ML VIAL. ONE; +MORPHINE SULFATE 2 MG/ML DISP.SYRIN. IV PRN; +ONDANSETRON PF 4 MG/2 ML VIAL. IV PRN; +PROCHLORPERAZINE 10 MG/2 ML VIAL. IV PRN; -PROPOFOL 20 ML IV ONE; +fentaNYL PF VIAL 100 MCG/2 ML VIAL IV PRN
[2017-04-29] MEDS ORDERED: DESFLURANE 61 TO 120 MINUTES IH ONE (10:47)
[2017-04-29] MEDS ORDERED: fentaNYL PF VIAL 100 MCG/2 ML VIAL ONE ×4 (10:47→15:08)
[2017-04-29] MEDS ORDERED: PROPOFOL 20 ML IV ONE (10:47)
[2017-04-29] MEDS ORDERED: ROCURONIUM 50 MG/5 ML VIAL. ONE ×2 (10:47→12:53)
[2017-04-29] MEDS ORDERED: DEXAMETHASONE SOD PHOS 20 MG/5 ML VIAL. ONE (10:47)
[2017-04-29] MEDS ORDERED: LIDOCAINE 2% PF Vial for OR 5 ML VIAL. ONE (10:47)
[2017-04-29] MEDS ORDERED: ONDANSETRON PF 4 MG/2 ML VIAL. ONE (10:47)
[2017-04-29] MEDS ORDERED: PHENYLEPHRINE in 0.9% NACL PF 1 MG/10 ML DISP.SYRIN. IV ONE (11:52)
[2017-04-29] MEDS ORDERED: HYDROCORTISONE SOD SUCC/PF 100 MG/2 ML VIAL. ONE (12:04)
[2017-04-29] MEDS ORDERED: LABETALOL 20 MG/4 ML DISP.SYRIN. ONE (12:53)
[2017-04-29] MEDS ORDERED: ESMOLOL 100 MG/10 ML VIAL. IV ONE ×2 (12:59→16:05)
[2017-04-29] MEDS ORDERED: MORPHINE SULFATE 10 MG/ML VIAL. ONE (13:03)
[2017-04-29] MEDS ORDERED: ROCURONIUM 100 MG/10 ML VIAL. ONE (14:10)
[2017-04-29] MEDS ORDERED: GLYCOPYRROLATE 1 MG/5 ML VIAL. ONE (15:29)
[2017-04-29] MEDS ORDERED: NEOSTIGMINE METHYLSULFATE 5 MG/5 ML SYRINGE. ONE (15:29)
[2017-04-29] MEDS: POTASSIUM CL 20MEQ-0.45% NACL 1,000 ML IV SCH (16:26)
[2017-04-29] MEDS ORDERED: ONDANSETRON PF 4 MG/2 ML VIAL. IV PRN (16:30)
[2017-04-29] MEDS ORDERED: 0.9 % SODIUM CHLORIDE 10 ML DISP.SYRIN. IV PRN (16:30)
--- NOTE | 2017-04-29 16:34 | PDOC ---
BRIEF OPERATIVE NOTE Date: Apr 29, 2017 Pre-Op Diagnosis Crohn's with colostomy Post-Op Diagnosis same, extensive adhesions Procedure Performed extended right colon resection with ileocolotomy, DALLIN Surgeon Jose Greenhouse Assistant Siomara APONTE Anesthesia Type: General Blood Loss 100cc IV Fluid 2200cc Urine Output 140cc Specimens Obtained right colon Findings extensive adhesions, stricture in mid portion of right colon Complications none RON GROSS MD Apr 29, 2017 16:34
--- NOTE | 2017-04-29 16:40 | RAD ---
Indication postop. Protocol study. A single KUB was obtained. 2 surgical drains are noted. Nasogastric tube has its tip in the antrum of the stomach. There is mild dilatation of small bowel loops which is nonspecific. An unexpected finding is not seen. IMPRESSION: No unexpected finding seen on postop KUB
[2017-04-29] MEDS: fentaNYL PF VIAL 100 MCG/2 ML VIAL IV PRN ×4 (16:44→16:59)
[2017-04-29] MEDS ORDERED: PHENOL ORAL SPRAY 177ML BOTTLE. PO PRN ×2 (16:45)
--- NOTE | 2017-04-29 18:16 | PDOC2 ---
CONSULT Date of Consult Date of Consult DATE: 04/29/17 TIME: 18:15 Reason for Consult Reason for Consult: DR GARCIA Identification/Chief Complaint Chief Complaint COLECTOMY History of Present Illness Reason for Visit: A 71 Male with hx of Crohn's, AFIB and prolonged hospitalization in 01/2016, presented to OR for electively for extended right colon resection with ileocolotomy by Dr Garcia, IPC team has been consulted for medical management. Post surgery pt's pain tolerable, on FIRE EXTINGUISHER REPAIRER pump, /10, located to abdomen. Denies any fever, chills, or nausea or vomiting. Past Medical History Cardiovascular: AFIB, Hyperlipidemia Pulmonary: No pertinent hx CENTRAL NERVOUS SYSTEM: Other GI: Other Heme/Onc: No pertinent hx Hepatobiliary: No pertinent hx Psych: No pertinent hx Musculoskeletal: Osteoarthritis Rheumatologic: No pertinent hx Infectious disease: No pertinent hx Renal/: Other Endocrine: No pertinent hx Past Surgical History Past Surgical History: Colon Resection, Other Family History Family History: Cancer Social History No ALCOHOL: rare Drugs: None, Other Lives: with Family Current Medications Current Medications Current Medications Ondansetron HCl (Zofran) 4 mg PRN Q6HRS PRN IV NAUSEA/VOMITING; Start 04/29/17 at 07:00; Stop 04/29/17 at 17:32; Status DC Fentanyl Citrate (Fentanyl 2ml Vial) 25 mcg PRN Q5MIN PRN IV MILD PAIN; Start 04/29/17 at 07:00; Stop 04/30/17 at 06:59 Fentanyl Citrate (Fentanyl 2ml Vial) 50 mcg PRN Q5MIN PRN IV MODERATE PAIN Last administered on 04/29/17 16:59; Start 04/29/17 at 07:00; Stop 04/30/17 at 06:59 Morphine Sulfate 1 mg PRN Q10MIN PRN IV SEVERE PAIN Last administered on 16:41; Start 04/29/17 at 07:00; Stop 04/30/17 at 06:59 Ringer's Solution 1,000 ml @ 30 mls/hr Q24H IV Last administered on 04/29/17 10:42; Start 04/29/17 at 07:00; Stop 04/29/17 at 18:59 Lidocaine HCl 2 ml PRN 1X PRN ID PRIOR TO IV START; Start 04/29/17 at 07:00; Stop 04/30/17 at 06:59 Hydromorphone HCl (Dilaudid) 0.5 mg PRN Q10MIN PRN IV SEV PAIN, Second choice; Start 04/29/17 at 07:00; Stop 04/30/17 at 06:59 Prochlorperazine Edisylate (Compazine) 5 mg PACU PRN PRN IV NAUSEA, MRX1; Start 04/29/17 at 07:00; Stop 04/30/17 at 06:59 Cefoxitin Sodium 1 gm/Sodium Chloride 50 ml @ 100 mls/hr 1X ONCE IV Last administered on 04/29/17t 12:00; Start 04/29/17 at 06:00; Stop 04/29/17 at 06:29 ; Status DC Dexamethasone Sodium Phosphate (Decadron) 20 mg STK-MED ONCE .ROUTE ; Start at 10:47; Stop 04/29/17 at 10:48; Status DC Ondansetron HCl (Zofran) 4 mg STK-MED ONCE .ROUTE ; Start 04/29/17 at 10:47; Stop 04/29/17 at 10:48; Status DC Propofol 20 ml @ As Directed STK-MED ONCE IV ; Start 04/29/17 at 10:47; Stop at 10:48; Status DC Lidocaine HCl (Lidocaine Pf 2% Vial) 5 ml STK-MED ONCE .ROUTE ; Start 04/29/17 at 10:47; Stop 04/29/17 at 10:48; Status DC Desflurane (Suprane) 60 ml STK-MED ONCE IH ; Start 04/29/17 at 10:47; Stop 04/29 at 10:48; Status DC Fentanyl Citrate (Fentanyl 2ml Vial) 100 mcg STK-MED ONCE .ROUTE ; Start at 10:47; Stop 04/29/17 at 10:48; Status DC Rocuronium [place] (Zemuron) 50 mg STK-MED ONCE .ROUTE ; Start 04/29/17 at 10:47 ; Stop 04/29/17 at 10:48; Status DC Phenylephrine HCl 1 mg STK-MED ONCE IV ; Start 04/29/17 at 11:52; Stop 04/29/17 at 11:53; Status DC Hydrocortisone Sodium Succinate (Solu-CORTEF) 100 mg STK-MED ONCE .ROUTE ; Start 04/29/17 at 12:04; Stop 04/29/17 at 12:05; Status DC Fentanyl Citrate (Fentanyl 2ml Vial) 100 mcg STK-MED ONCE .ROUTE ; Start at 12:21; Stop 04/29/17 at 12:22; Status DC Rocuronium [place] (Zemuron) 50 mg STK-MED ONCE .ROUTE ; Start 04/29/17 at 12:53 ; Stop 04/29/17 at 12:54; Status DC Labetalol HCl (Normodyne) 20 mg STK-MED ONCE .ROUTE ; Start 04/29/17 at 12:53; Stop 04/29/17 at 12:54; Status DC Fentanyl Citrate (Fentanyl 2ml Vial) 100 mcg STK-MED ONCE .ROUTE ; Start at 12:55; Stop 04/29/17 at 12:56; Status DC Esmolol HCl (Brevibloc) 100 mg STK-MED ONCE IV ; Start 04/29/17 at 12:59; Stop 04/29/17 at 13:00; Status DC Morphine Sulfate 10 mg STK-MED ONCE .ROUTE ; Start 04/29/17 at 13:03; Stop 04/29 at 13:04; Status DC Rocuronium [place] (Zemuron) 100 mg STK-MED ONCE .ROUTE ; Start 04/29/17 at 14: 10; Stop 04/29/17 at 14:11; Status DC Fentanyl Citrate (Fentanyl 2ml Vial) 100 mcg STK-MED ONCE .ROUTE ; Start at 15:08; Stop 04/29/17 at 15:09; Status DC Glycopyrrolate (Robinul) 1 mg STK-MED ONCE .ROUTE ; Start 04/29/17 at 15:29; Stop 04/29/17 at 15:30; Status DC Neostigmine Methylsulfate 5 mg STK-MED ONCE .ROUTE ; Start 04/29/17 at 15:29; Stop 04/29/17 at 15:30; Status DC Esmolol HCl (Brevibloc) 100 mg STK-MED ONCE IV ; Start 04/29/17 at 16:05; Stop 04/29/17 at 16:06; Status DC Diphenhydramine HCl (Benadryl) 25 mg PRN Q6HRS PRN IV ITCHING; Start 04/29/17 at 16:30 Enoxaparin Sodium (Lovenox 40mg Syringe) 40 mg Q24H SQ ; Start 04/30/17 at 06:00 Sodium Chloride (Normal Saline Flush) 3 ml QSHIFT PRN IV AFTER MEDS AND BLOOD DRAWS; Start 04/29/17 at 16:30 Potassium Chloride/Sodium Chloride 1,000 ml @ 100 mls/hr Q10H IV ; Start at 16:26 Hydromorphone HCl 30 ml @ 0 mls/hr CONT PRN PRN IV PROTOCOL Last administered on 04/29/17t 17:03; Start 04/29/17 at 16:30 Ondansetron HCl (Zofran) 4 mg PRN Q6HRS PRN IV NAUESA, 1ST CHOICE; Start at 16:30 Throat Lozenges (Chloraseptic) 1 spray PRN Q2HR PRN PO SORE THROAT; Start 04/29 at 16:45 Throat Lozenges (Chloraseptic) 1 spray PRN Q2HR PRN PO SORE THROAT; Start 04/29 at 16:45; Stop 04/29/17 at 17:32; Status DC Active Scripts Active Reported Melatonin 3 Mg Tablet 1 Tab PO QHS Move Free Joint Health Tablet (Glucosam/Chond/Hyalu/Cf Borate) 1 Each Tablet 1 Each PO DAILY Digoxin 125 Mcg Tablet 1 Tab PO DAILY Prednisone 10 Mg Tablet 10 Mg PO DAILY Allergies Allergies: Coded Allergies: No Known Drug Allergies (Unverified , 04/29/17) ROS General: No: Chills, Night Sweats, Fatigue, Malaise, Appetite, Other PSYCHOLOGICAL ROS: No: Anxiety, Behavioral Disorder, Concentration difficultie , Decreased libido, Depression, Disorientation, Hallucinations, Hostility, Irritablity, Memory difficulties, Mood Swings, Obsessive thoughts, Physical abuse, Sexual abuse, Sleep disturbances, Suicidal ideation, Other HEENT: No: Heacaches, Visual Changes, Hearing change, Nasal congestion, Nasal discharge, Oral lesions, Sinus pain, Sore Throat, Epistaxis, Sneezing, Snoring, Tinnitus, Vertigo, Vocal changes, Other Hematological and Lymphatic: No: Bleeding Problems, Blood Clots, Blood Transfusions, Brusing, Night Sweats, Pallor, Swollen Lymph Nodes, Other ENDOCRINE: No: Breast Changes, Galactorrhea, Hair Pattern Changes, Hot Flashes , Malaise/lethargy, Mood Swings, Palpitations, Polydipsia/polyuria, Skin Changes , Temperature Intolerance, Unexpected Weight Changes, Other Breast: No New/Changing Breast Lumps, No Nipple changes, No Nipple discharge, No Other Respiratory: No: Cough, Hemoptysis, Orthopnea, Pleuritic Pain, Shortness of breath, SOB with excertion, Sputum Changes, Stridor, Tachypnea, Wheezing, Other Cardiovascular: No Chest Pain, No Palpitations, No Orthopnea, No Paroxysmal Noc. Dyspnea, No Edema, No Lt Headedness, No Other Gastrointestinal: Yes Abdominal Pain Musculoskeletal: No Gait Disturbance, No Joint Pain, No Joint Stiffness, No Joint Swelling, No Muscle Pain, No Muscular Weakness, No Pain In:, No Swelling In:, No Other Neurological: No Behavorial Changes, No Bowel/Bladder ControlChng, No Confusion , No Dizziness, No Gait Disturbance, No Headaches, No Impaired Coord/balance, No Memory Loss, No Numbness/Tingling, No Seizures, No Speech Problems, No Tremors, No Visual Changes, No Weakness, No Other Skin: No Dry Skin, No Eczema, No Hair Changes, No Lumps, No Mole Changes, No Mottling, No Nail Changes, No Pruritus, No Rash, No Skin Lesion Changes, No Other, No Acne Physical Exam General: Alert, Oriented X3, Cooperative HEENT: Atraumatic Lungs: Clear to auscultation Heart: Regular rate, Normal S1, Normal S2, No murmurs Abdomen: Soft, Other (dressign intact. ) Extremities: No clubbing Skin: No rashes Neuro: Normal speech, Normal tone MUSCULOSKELETAL: No joint tenderness, No deformity Vitals VITALS Vital Signs Date Time Temp Pulse Resp B/P (MAP) Pulse Ox O2 Delivery O2 Flow Rate FiO2 04/29/17 17:42 16 136/82 96 Nasal Cannula 2 04/29/17 17:27 97.0 96 97.0 Assessment/Plan Assessment/Plan s/p Right colon resection with ileocolotomy, Crohn's disease Afib Hyperlipidemia Post operative pain Plan Pain control on FIRE EXTINGUISHER REPAIRER Pump, Dilaudid Avoid co2 narcosis Telemetry resume home medications, Digoxin and Pernione NPO IV hydration with normal saline and potassium chloride. CBC/BMP in AM old records reviewed. DVT prophylaxis with PAS stockings. and Lovenox. Plan d/w at bedside, all questions answered. OLIVIA FULTON MD Apr 29, 2017 18:16
[2017-04-30 03:00] VITALS: BP 128/82
[2017-04-30 05:24] LABS: BASO % 0 % (0-3); EOS % 0 % (0-3); HEMATOCRIT 46.5 % (39.0-53.0); HEMOGLOBIN 15.2 g/dL (13.0-17.5); LYMPH # 2.8 x10^3/uL (1.0-4.8); LYMPH % 15 % (24-48); MEAN CORPUSCULAR HEMOGLOBIN 33 pg (25-35); MEAN CORPUSCULAR HGB CONC 33 g/dL (31-37); MEAN CORPUSCULAR VOLUME 101 fL (79-100); MONO % 10 % (0-9); NEUT % 76 % (31-73); PLATELET COUNT 193 x10^3/uL (140-400); RED BLOOD COUNT 4.62 x10^6/uL (4.30-5.70); RED CELL DISTRIBUTION WIDTH 16.2 % (11.5-14.5); WHITE BLOOD COUNT 18.7 x10^3/uL (4.0-11.0)
[2017-04-30 05:41] LABS: CALCIUM 8.8 mg/dL (8.5-10.1); CREATININE 0.9 mg/dL (0.7-1.3); GFR 83.2; POTASSIUM 5.1 mmol/L (3.5-5.1)
[2017-04-30] MEDS: POTASSIUM CL 20MEQ-0.45% NACL 1,000 ML IV SCH ×2 (06:18→14:23)
[2017-04-30] MEDS: ENOXAPARIN 40 MG/0.4 ML SYRINGE. SQ SCH (06:20)
[2017-04-30 07:00] VITALS: BP 105/84
[2017-04-30 07:21] LABS: PLT ESTIMATE ADEQUATE (ADEQUATE)
[2017-04-30] MEDS: DIGOXIN 125 MCG TABLET. PO SCH (08:40)
[2017-04-30] MEDS ORDERED: predniSONE 10 MG TABLET PO SCH (09:00)
--- NOTE | 2017-04-30 09:40 | PDOC ---
FERNANDO CEJA MACHINE LOADER 04/30/17 0940: SURGICAL PROGRESS NOTE Subjective resting pain managed no nausea no flatus Vital Signs Vital Signs Date Time Temp Pulse Resp B/P (MAP) Pulse Ox O2 Delivery O2 Flow Rate FiO2 04/30/17 07:00 98.3 84 18 105/84 (91) 98 Room Air 98.3 04/30/17 03:00 2.0 I&O Intake and Output 04/30/17 07:00 Intake Total 4972 ml Output Total 1360 ml Balance 3612 ml Intake IV Total 4972 ml Output Urine Total 910 ml Drainage Total 350 ml Estimated Blood Loss 100 ml PATIENT HAS A LOPEZ: Yes (DC pod#2) General: Alert, Oriented X3, Cooperative, No acute distress HEENT: Other (NG minimal drainage, clear) Abdomen: Soft, Other (LASHAUN x 2, serosang, dressing dry, incisional pain ) Labs Laboratory Tests Test 04/30/17 04:55 White Blood Count 18.7 x10^3/uL (4.0-11.0) Red Blood Count 4.62 x10^6/uL (4.30-5.70) Hemoglobin 15.2 g/dL (13.0-17.5) Hematocrit 46.5 % (39.0-53.0) Mean Corpuscular Volume 101 fL (79-100) Mean Corpuscular Hemoglobin 33 pg (25-35) Mean Corpuscular Hemoglobin Concent 33 g/dL (31-37) Red Cell Distribution Width 16.2 % (11.5-14.5) Platelet Count 193 x10^3/uL (140-400) Neutrophils (%) (Auto) 76 % (31-73) Lymphocytes (%) (Auto) 15 % (24-48) Monocytes (%) (Auto) 10 % (0-9) Eosinophils (%) (Auto) 0 % (0-3) Basophils (%) (Auto) 0 % (0-3) Neutrophils # (Auto) 14.2 x10^3uL (1.8-7.7) Lymphocytes # (Auto) 2.8 x10^3/uL (1.0-4.8) Monocytes # (Auto) 1.8 x10^3/uL (0.0-1.1) Eosinophils # (Auto) 0.0 x10^3/uL (0.0-0.7) Basophils # (Auto) 0.0 x10^3/uL (0.0-0.2) Segmented Neutrophils % 60 % (35-66) Band Neutrophils % 14 % (0-9) Lymphocytes % 15 % (24-48) Atypical Lymphocytes % (Manual) 1 % (0-0) Monocytes % 10 % (0-10) Platelet Estimate Adequate (ADEQUATE) Sodium Level 138 mmol/L (136-145) Potassium Level 5.1 mmol/L (3.5-5.1) Chloride Level 102 mmol/L (98-107) Carbon Dioxide Level 30 mmol/L (21-32) Anion Gap 6 (6-14) Blood Urea Nitrogen 18 mg/dL (8-26) Creatinine 0.9 mg/dL (0.7-1.3) Estimated GFR (Cockcroft-Gault) 83.2 Glucose Level 121 mg/dL (70-99) Calcium Level 8.8 mg/dL (8.5-10.1) Laboratory Tests Test 04/30/17 04:55 White Blood Count 18.7 x10^3/uL (4.0-11.0) Red Blood Count 4.62 x10^6/uL (4.30-5.70) Hemoglobin 15.2 g/dL (13.0-17.5) Hematocrit 46.5 % (39.0-53.0) Mean Corpuscular Volume 101 fL (79-100) Mean Corpuscular Hemoglobin 33 pg (25-35) Mean Corpuscular Hemoglobin Concent 33 g/dL (31-37) Red Cell Distribution Width 16.2 % (11.5-14.5) Platelet Count 193 x10^3/uL (140-400) Neutrophils (%) (Auto) 76 % (31-73) Lymphocytes (%) (Auto) 15 % (24-48) Monocytes (%) (Auto) 10 % (0-9) Eosinophils (%) (Auto) 0 % (0-3) Basophils (%) (Auto) 0 % (0-3) Neutrophils # (Auto) 14.2 x10^3uL (1.8-7.7) Lymphocytes # (Auto) 2.8 x10^3/uL (1.0-4.8) Monocytes # (Auto) 1.8 x10^3/uL (0.0-1.1) Eosinophils # (Auto) 0.0 x10^3/uL (0.0-0.7) Basophils # (Auto) 0.0 x10^3/uL (0.0-0.2) Segmented Neutrophils % 60 % (35-66) Band Neutrophils % 14 % (0-9) Lymphocytes % 15 % (24-48) Atypical Lymphocytes % (Manual) 1 % (0-0) Monocytes % 10 % (0-10) Platelet Estimate Adequate (ADEQUATE) Sodium Level 138 mmol/L (136-145) Potassium Level 5.1 mmol/L (3.5-5.1) Chloride Level 102 mmol/L (98-107) Carbon Dioxide Level 30 mmol/L (21-32) Anion Gap 6 (6-14) Blood Urea Nitrogen 18 mg/dL (8-26) Creatinine 0.9 mg/dL (0.7-1.3) Estimated GFR (Cockcroft-Gault) 83.2 Glucose Level 121 mg/dL (70-99) Calcium Level 8.8 mg/dL (8.5-10.1) Problem List POD#1 right colon resection, ileocolectomy, DALLIN dc lopez POD#2 trial clamp NG 05/01 AM PT/OT Problems: RON GROSS MD 04/30/17 1309: SURGICAL PROGRESS NOTE Assessment/Plan pt seen and examined agree with above NG trial in AM Problems: FERNANDO CEJA APRN Apr 30, 2017 09:40 RON GROSS MD Apr 30, 2017 13:09
[2017-04-30 11:00] VITALS: BP 110/42
--- NOTE | 2017-04-30 11:56 | OP ---
DATE OF SURGERY: 04/29/2017 PREOPERATIVE DIAGNOSIS: Crohn's disease with colostomy. POSTOPERATIVE DIAGNOSIS: Crohn's disease with colostomy with extensive adhesions. PROCEDURE: Extended right colon resection with ileocolotomy, lysis of adhesions, and repair of ventral incisional hernia with mesh. SURGEON: Orion Gross MD BUTTERMILK DRIER OPERATOR: FADI Burkett ANESTHESIA: General endotracheal. ESTIMATED BLOOD LOSS: 100 mL. IV FLUIDS: 2200. URINE OUTPUT: 140 mL. INDICATIONS: The patient is a 71-year-old, three months postop end-colostomy, Evans pouch for ischemic, gangrenous, perforated splenic flexure. He is brought for takedown of his colostomy in attempt to repair an incisional hernia. OPERATIVE FINDINGS: The liver was smooth and sharp. The stomach was unremarkable with an NG tube in place. The small bowel had extensive adhesions throughout its course originating from previous surgery for his perforated colon as well as bilateral inguinal hernia repairs with mesh done laparoscopically. In the mid portion of the remaining right colon was an area that had been tacked to the colonoscopy due to a stricture. The distal bowel remaining was unremarkable. The incisional hernia resided primarily on the right side of the abdomen. DESCRIPTION OF PROCEDURE: The patient was brought to the Operating Suite, given a general endotracheal anesthetic. Wagner catheter was placed to dependent drainage, and the abdomen was prepped and draped in usual sterile fashion. The previous midline incisional scar and umbilicus were excised and extended superiorly to gain access into the abdominal cavity. Omental adhesions to the abdominal wall into the hernia sac were taken down to gain access into the abdominal cavity. The Omni self-retaining retractor was used for exposure. We set about mobilizing the small bowel in its entirety by ligating adhesions throughout its course. There were dense adhesions between the small bowel and the laparoscopically placed mesh for the hernia repairs. There were multiple adhesions without the extended bowel from previous peritonitis secondary to the perforated colon. Once we had mobilized the small bowel in its entirety, we then took down the right colon by dividing the white line of Toldt reflecting the colon toward the midline. Care was taken during the dissection to identify and avoid injury to the duodenum, right kidney, and right ureter. After the right colon was mobilized in its entirety, the location of the stricture in the mid portion prevented resection with adequate colon left for a colocolotomy. As such, we took down the colostomy and removed the right colon. The old stoma site was closed intraabdominally by running the posterior sheath peritoneum with 0 Vicryl. The anterior sheath at the side of the colostomy was closed in similar fashion with a running stitch of 0 Vicryl. We then turned our attention to the remaining colon. In the left lower quadrant, the Prolene sutures placed for identification at the previous surgery were identified, and the proximal end of the remaining colon was exposed. The distal end of the ileum was then brought down for an ileocolic anastomosis. A posterior row of interrupted 3-0 Vicryl sutures were placed. The small bowel was gently occluded with an atraumatic clamp. Staple lines were excised. Mucosal anastomosis was carried out with a running lock 3-0 chromic first posteriorly, then anteriorly. Clamp was removed. The anterior anastomosis was completed with interrupted 3-0 Vicryl suture. There was competency and patency of the anastomosis at completion. The small bowel mesentery and mesocolon were approximated with 2-0 chromic taking care to avoid injury to the vascular supply to the anastomosis. Gloves were changed after the abdomen was irrigated copiously with normal saline. A 19-Bulgarian round Luis Eduardo drain was brought through a right lower quadrant stab wound, left in the true pelvis, sewn to the skin with a silk stitch. We then turned our attention to repair of the hernia. The attenuated abdominal wall and hernia sac were excised. We closed the incision primarily using a running stitch of looped 0 PDS tied in the middle. The skin edges were undermined on each side of the incision, and an overlay mesh of Phasix was placed and secured around the periphery with interrupted 2-0 PDS sutures. Good hemostasis was present. A 19-Bulgarian round Luis Eduardo drain was brought through a left-sided stab wound, left in the subcutaneous space for postoperative drainage. Skin was closed with soraya. Sterile dressings were applied. Postop foreign body film was negative for unexplained foreign body. The patient was awakened from his anesthetic and taken to the Recovery Room in satisfactory condition. ORION GROSS MD DR: KAYLYNN/marco JOB#: [id number] / [id number]
[2017-04-30] MEDS: methylPREDNISolone SOD SUCC PF 40 MG/ML VIAL. IV SCH (14:22)
[2017-04-30 15:00] VITALS: BP 106/77
--- NOTE | 2017-04-30 16:34 | PDOC ---
PROGRESS NOTES Chief Complaint Chief Complaint Crohn's dz, colectomy ASSESSMENT AND PLAN: 1. s/p R part colectomy: recovering appropriately. 2. 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 Nutrition: NPO for now; advance diet as per surg team. consider PPN 4. Crohn's dz: on low dose steroid - would hold in shana-op setting to improve wound healing. agree with short term stress dose steroids 5. Leukocytosis: significant left shift, not attributable to steroids, but suspect reactive to surgery. monitor closely 6. Afib: fair rate controlled on dig. check level to ascertain dose increase is appropriate 7. Prophylaxis: lovenox, PPI CBC/BMP in AM old records reviewed. DVT prophylaxis with PAS stockings. and Lovenox. Plan d/w at bedside, all questions answered. History of Present Illness History of Present Illness pain rated at 8/10. can tell the dilaudid is helping, but make leah sleepy. Vitals Vitals Vital Signs Date Time Temp Pulse Resp B/P (MAP) Pulse Ox O2 Delivery O2 Flow Rate FiO2 04/30/17 15:00 98.3 97 20 106/77 (87) 96 Nasal Cannula 2.0 98.3 Physical Exam General: Alert, Oriented X3, Cooperative, mild distress Heart: No murmurs, Other (irreg irreg) Lungs: Clear Abdomen: Soft, Other (LASHAUN x 2, serosang, dressing dry, binder in place) Extremities: No clubbing Skin: No rashes Labs LABS Laboratory Tests Test 04/30/17 04:55 White Blood Count 18.7 x10^3/uL (4.0-11.0) Red Blood Count 4.62 x10^6/uL (4.30-5.70) Hemoglobin 15.2 g/dL (13.0-17.5) Hematocrit 46.5 % (39.0-53.0) Mean Corpuscular Volume 101 fL (79-100) Mean Corpuscular Hemoglobin 33 pg (25-35) Mean Corpuscular Hemoglobin Concent 33 g/dL (31-37) Red Cell Distribution Width 16.2 % (11.5-14.5) Platelet Count 193 x10^3/uL (140-400) Neutrophils (%) (Auto) 76 % (31-73) Lymphocytes (%) (Auto) 15 % (24-48) Monocytes (%) (Auto) 10 % (0-9) Eosinophils (%) (Auto) 0 % (0-3) Basophils (%) (Auto) 0 % (0-3) Neutrophils # (Auto) 14.2 x10^3uL (1.8-7.7) Lymphocytes # (Auto) 2.8 x10^3/uL (1.0-4.8) Monocytes # (Auto) 1.8 x10^3/uL (0.0-1.1) Eosinophils # (Auto) 0.0 x10^3/uL (0.0-0.7) Basophils # (Auto) 0.0 x10^3/uL (0.0-0.2) Segmented Neutrophils % 60 % (35-66) Band Neutrophils % 14 % (0-9) Lymphocytes % 15 % (24-48) Atypical Lymphocytes % (Manual) 1 % (0-0) Monocytes % 10 % (0-10) Platelet Estimate Adequate (ADEQUATE) Sodium Level 138 mmol/L (136-145) Potassium Level 5.1 mmol/L (3.5-5.1) Chloride Level 102 mmol/L (98-107) Carbon Dioxide Level 30 mmol/L (21-32) Anion Gap 6 (6-14) Blood Urea Nitrogen 18 mg/dL (8-26) Creatinine 0.9 mg/dL (0.7-1.3) Estimated GFR (Cockcroft-Gault) 83.2 Glucose Level 121 mg/dL (70-99) Calcium Level 8.8 mg/dL (8.5-10.1) KAYLYNN CONNELL MD Apr 30, 2017 16:34
[2017-04-30] MEDS: PANTOPRAZOLE IV PUSH 40 MG VIAL. IVP SCH (17:51)
[2017-04-30 19:25] VITALS: BP 116/76
[2017-04-30 23:19] VITALS: BP 124/72
[2017-05-01] MEDS: POTASSIUM CL 20MEQ-0.45% NACL 1,000 ML IV SCH ×3 (00:17→18:26)
[2017-05-01] MEDS: diphenhydrAMINE 50 MG/ML VIAL IV PRN ×3 (00:17→20:21)
[2017-05-01 03:27] VITALS: BP 119/82
[2017-05-01 04:05] LABS: BASO % 0 % (0-3); EOS % 0 % (0-3); HEMATOCRIT 44.6 % (39.0-53.0); HEMOGLOBIN 14.7 g/dL (13.0-17.5); LYMPH # 2.7 x10^3/uL (1.0-4.8); LYMPH % 19 % (24-48); MEAN CORPUSCULAR HEMOGLOBIN 33 pg (25-35); MEAN CORPUSCULAR HGB CONC 33 g/dL (31-37); MEAN CORPUSCULAR VOLUME 100 fL (79-100); MONO % 9 % (0-9); NEUT % 72 % (31-73); PLATELET COUNT 172 x10^3/uL (140-400); RED BLOOD COUNT 4.47 x10^6/uL (4.30-5.70); RED CELL DISTRIBUTION WIDTH 16.2 % (11.5-14.5); WHITE BLOOD COUNT 14.3 x10^3/uL (4.0-11.0)
[2017-05-01 05:24] LABS: ALBUMIN 2.6 g/dL (3.4-5.0); ALBUMIN/GLOBULIN RATIO 0.7 (1.0-1.7); ALK PHOS 49 U/L (46-116); ALT (SGPT) 21 U/L (16-63); ANION GAP 5 (6-14); AST (SGOT) 21 U/L (15-37); BLOOD UREA NITROGEN 12 mg/dL (8-26); BUN/CREATININE RATIO 15 (6-20); CALCIUM 8.9 mg/dL (8.5-10.1); CARBON DIOXIDE 31 mmol/L (21-32); CHLORIDE 98 mmol/L (98-107); CREATININE 0.8 mg/dL (0.7-1.3); GFR 95.3; GLUCOSE 93 mg/dL (70-99); POTASSIUM 4.9 mmol/L (3.5-5.1); SODIUM 134 mmol/L (136-145); TOTAL BILIRUBIN 0.7 mg/dL (0.2-1.0); TOTAL PROTEIN 6.2 g/dL (6.4-8.2)
[2017-05-01] MEDS: ENOXAPARIN 40 MG/0.4 ML SYRINGE. SQ SCH (06:39)
[2017-05-01] MEDS: PANTOPRAZOLE IV PUSH 40 MG VIAL. IVP SCH (06:39)
[2017-05-01 07:00] VITALS: BP 115/73
--- NOTE | 2017-05-01 08:36 | PDOC ---
PROGRESS NOTES Chief Complaint Chief Complaint Crohn's dz, colectomy ASSESSMENT AND PLAN: 1. s/p R part colectomy: recovering appropriately. 2. 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 Nutrition: NPO for now; advance diet as per surg team. consider PPN 4. Crohn's dz: on low dose steroid - hold in shana-op setting to improve wound healing. agree with short term stress dose steroids, stop ater tomorrow's dose 5. Leukocytosis: reactive, improving. monitor closely 6. Afib: fair rate control on digoxin .125. dig level only 0.6 => increase dose to .25 7. Prophylaxis: lovenox, PPI CBC/BMP in AM old records reviewed. DVT prophylaxis with PAS stockings. and Lovenox. Plan d/w at bedside, all questions answered. History of Present Illness History of Present Illness belly aching. able to ambulate w/ walker. NGT clamped w/o residual Vitals Vitals Vital Signs Date Time Temp Pulse Resp B/P (MAP) Pulse Ox O2 Delivery O2 Flow Rate FiO2 05/01/17 07:00 96.8 91 18 115/73 (87) 99 Nasal Cannula 2.0 96.8 Physical Exam General: Alert, Oriented X3, Cooperative, No acute distress Heart: No murmurs, Other (irreg irreg) Lungs: Clear Abdomen: Soft, Other (LASHAUN x 2, serosang, dressing dry, binder in place) Extremities: No clubbing Skin: No rashes Labs LABS Laboratory Tests Test 05/01/17 03:30 White Blood Count 14.3 x10^3/uL (4.0-11.0) Red Blood Count 4.47 x10^6/uL (4.30-5.70) Hemoglobin 14.7 g/dL (13.0-17.5) Hematocrit 44.6 % (39.0-53.0) Mean Corpuscular Volume 100 fL (79-100) Mean Corpuscular Hemoglobin 33 pg (25-35) Mean Corpuscular Hemoglobin Concent 33 g/dL (31-37) Red Cell Distribution Width 16.2 % (11.5-14.5) Platelet Count 172 x10^3/uL (140-400) Neutrophils (%) (Auto) 72 % (31-73) Lymphocytes (%) (Auto) 19 % (24-48) Monocytes (%) (Auto) 9 % (0-9) Eosinophils (%) (Auto) 0 % (0-3) Basophils (%) (Auto) 0 % (0-3) Neutrophils # (Auto) 10.2 x10^3uL (1.8-7.7) Lymphocytes # (Auto) 2.7 x10^3/uL (1.0-4.8) Monocytes # (Auto) 1.2 x10^3/uL (0.0-1.1) Eosinophils # (Auto) 0.0 x10^3/uL (0.0-0.7) Basophils # (Auto) 0.0 x10^3/uL (0.0-0.2) Sodium Level 134 mmol/L (136-145) Potassium Level 4.9 mmol/L (3.5-5.1) Chloride Level 98 mmol/L (98-107) Carbon Dioxide Level 31 mmol/L (21-32) Anion Gap 5 (6-14) Blood Urea Nitrogen 12 mg/dL (8-26) Creatinine 0.8 mg/dL (0.7-1.3) Estimated GFR (Cockcroft-Gault) 95.3 BUN/Creatinine Ratio 15 (6-20) Glucose Level 93 mg/dL (70-99) Calcium Level 8.9 mg/dL (8.5-10.1) Total Bilirubin 0.7 mg/dL (0.2-1.0) Aspartate Amino Transf (AST/SGOT) 21 U/L (15-37) Alanine Aminotransferase (ALT/SGPT) 21 U/L (16-63) Alkaline Phosphatase 49 U/L (46-116) Total Protein 6.2 g/dL (6.4-8.2) Albumin 2.6 g/dL (3.4-5.0) Albumin/Globulin Ratio 0.7 (1.0-1.7) Digoxin Level 0.6 ng/mL (0.9-2.0) Digoxin Last Dose Date 04/30/17 Digoxin Last Dose Time 0900 KAYLYNN CONNELL MD May 01, 2017 08:36
--- NOTE | 2017-05-01 08:49 | PDOC ---
SURGICAL PROGRESS NOTE Subjective NG clamped since 629, no n/v no flatus yet ambulated to chair yesterday Vital Signs Vital Signs Date Time Temp Pulse Resp B/P (MAP) Pulse Ox O2 Delivery O2 Flow Rate FiO2 05/01/17 07:00 96.8 91 18 115/73 (87) 99 Nasal Cannula 2.0 96.8 I&O Intake and Output 05/01/17 06:59 Intake Total 2408.5 ml Output Total 2330 ml Balance 78.5 ml Intake Oral 25 ml IV Total 2383.5 ml Output Urine Total 1450 ml Gastric Drainage Total 600 ml Drainage Total 280 ml PATIENT HAS A LOPEZ: Yes (dc today) General: Alert, Oriented X3, Cooperative, No acute distress Abdomen: Soft, Other (dressing dry, LASHAUN x 2 serosang) Labs Laboratory Tests Test 04/30/17 04:55 05/01/17 03:30 White Blood Count 18.7 x10^3/uL (4.0-11.0) 14.3 x10^3/uL (4.0-11.0) Red Blood Count 4.62 x10^6/uL (4.30-5.70) 4.47 x10^6/uL (4.30-5.70) Hemoglobin 15.2 g/dL (13.0-17.5) 14.7 g/dL (13.0-17.5) Hematocrit 46.5 % (39.0-53.0) 44.6 % (39.0-53.0) Mean Corpuscular Volume 101 fL (79-100) 100 fL (79-100) Mean Corpuscular Hemoglobin 33 pg (25-35) 33 pg (25-35) Mean Corpuscular Hemoglobin Concent 33 g/dL (31-37) 33 g/dL (31-37) Red Cell Distribution Width 16.2 % (11.5-14.5) 16.2 % (11.5-14.5) Platelet Count 193 x10^3/uL (140-400) 172 x10^3/uL (140-400) Neutrophils (%) (Auto) 76 % (31-73) 72 % (31-73) Lymphocytes (%) (Auto) 15 % (24-48) 19 % (24-48) Monocytes (%) (Auto) 10 % (0-9) 9 % (0-9) Eosinophils (%) (Auto) 0 % (0-3) 0 % (0-3) Basophils (%) (Auto) 0 % (0-3) 0 % (0-3) Neutrophils # (Auto) 14.2 x10^3uL (1.8-7.7) 10.2 x10^3uL (1.8-7.7) Lymphocytes # (Auto) 2.8 x10^3/uL (1.0-4.8) 2.7 x10^3/uL (1.0-4.8) Monocytes # (Auto) 1.8 x10^3/uL (0.0-1.1) 1.2 x10^3/uL (0.0-1.1) Eosinophils # (Auto) 0.0 x10^3/uL (0.0-0.7) 0.0 x10^3/uL (0.0-0.7) Basophils # (Auto) 0.0 x10^3/uL (0.0-0.2) 0.0 x10^3/uL (0.0-0.2) Segmented Neutrophils % 60 % (35-66) Band Neutrophils % 14 % (0-9) Lymphocytes % 15 % (24-48) Atypical Lymphocytes % (Manual) 1 % (0-0) Monocytes % 10 % (0-10) Platelet Estimate Adequate (ADEQUATE) Sodium Level 138 mmol/L (136-145) 134 mmol/L (136-145) Potassium Level 5.1 mmol/L (3.5-5.1) 4.9 mmol/L (3.5-5.1) Chloride Level 102 mmol/L (98-107) 98 mmol/L (98-107) Carbon Dioxide Level 30 mmol/L (21-32) 31 mmol/L (21-32) Anion Gap 6 (6-14) 5 (6-14) Blood Urea Nitrogen 18 mg/dL (8-26) 12 mg/dL (8-26) Creatinine 0.9 mg/dL (0.7-1.3) 0.8 mg/dL (0.7-1.3) Estimated GFR (Cockcroft-Gault) 83.2 95.3 Glucose Level 121 mg/dL (70-99) 93 mg/dL (70-99) Calcium Level 8.8 mg/dL (8.5-10.1) 8.9 mg/dL (8.5-10.1) BUN/Creatinine Ratio 15 (6-20) Total Bilirubin 0.7 mg/dL (0.2-1.0) Aspartate Amino Transf (AST/SGOT) 21 U/L (15-37) Alanine Aminotransferase (ALT/SGPT) 21 U/L (16-63) Alkaline Phosphatase 49 U/L (46-116) Total Protein 6.2 g/dL (6.4-8.2) Albumin 2.6 g/dL (3.4-5.0) Albumin/Globulin Ratio 0.7 (1.0-1.7) Digoxin Level 0.6 ng/mL (0.9-2.0) Digoxin Last Dose Date 04/30/17 Digoxin Last Dose Time 0900 Laboratory Tests Test 05/01/17 03:30 White Blood Count 14.3 x10^3/uL (4.0-11.0) Red Blood Count 4.47 x10^6/uL (4.30-5.70) Hemoglobin 14.7 g/dL (13.0-17.5) Hematocrit 44.6 % (39.0-53.0) Mean Corpuscular Volume 100 fL (79-100) Mean Corpuscular Hemoglobin 33 pg (25-35) Mean Corpuscular Hemoglobin Concent 33 g/dL (31-37) Red Cell Distribution Width 16.2 % (11.5-14.5) Platelet Count 172 x10^3/uL (140-400) Neutrophils (%) (Auto) 72 % (31-73) Lymphocytes (%) (Auto) 19 % (24-48) Monocytes (%) (Auto) 9 % (0-9) Eosinophils (%) (Auto) 0 % (0-3) Basophils (%) (Auto) 0 % (0-3) Neutrophils # (Auto) 10.2 x10^3uL (1.8-7.7) Lymphocytes # (Auto) 2.7 x10^3/uL (1.0-4.8) Monocytes # (Auto) 1.2 x10^3/uL (0.0-1.1) Eosinophils # (Auto) 0.0 x10^3/uL (0.0-0.7) Basophils # (Auto) 0.0 x10^3/uL (0.0-0.2) Sodium Level 134 mmol/L (136-145) Potassium Level 4.9 mmol/L (3.5-5.1) Chloride Level 98 mmol/L (98-107) Carbon Dioxide Level 31 mmol/L (21-32) Anion Gap 5 (6-14) Blood Urea Nitrogen 12 mg/dL (8-26) Creatinine 0.8 mg/dL (0.7-1.3) Estimated GFR (Cockcroft-Gault) 95.3 BUN/Creatinine Ratio 15 (6-20) Glucose Level 93 mg/dL (70-99) Calcium Level 8.9 mg/dL (8.5-10.1) Total Bilirubin 0.7 mg/dL (0.2-1.0) Aspartate Amino Transf (AST/SGOT) 21 U/L (15-37) Alanine Aminotransferase (ALT/SGPT) 21 U/L (16-63) Alkaline Phosphatase 49 U/L (46-116) Total Protein 6.2 g/dL (6.4-8.2) Albumin 2.6 g/dL (3.4-5.0) Albumin/Globulin Ratio 0.7 (1.0-1.7) Digoxin Level 0.6 ng/mL (0.9-2.0) Digoxin Last Dose Date 04/30/17 Digoxin Last Dose Time 0900 Assessment/Plan POD#2 resection if residual <200cc dc ng in 2 hrs, d/w nurse mira lopez ambulate lovenox dvt proph Problems: FERNANDO CEJA [employer]ERING INTERN May 01, 2017 08:49
[2017-05-01] MEDS: methylPREDNISolone SOD SUCC PF 40 MG/ML VIAL. IV SCH (09:31)
[2017-05-01] MEDS: DIGOXIN 125 MCG TABLET. PO SCH (09:32)
[2017-05-01 11:00] VITALS: BP 110/73
[2017-05-01 15:00] VITALS: BP 110/77
[2017-05-01] MEDS: IV 1/2 NORMAL SALINE 1,000 ML IV SCH (18:30)
[2017-05-01 19:37] VITALS: BP 110/73
[2017-05-01 23:11] VITALS: BP 109/73
[2017-05-02] VITALS (7 sets, daily range): BP systolic 100–128; BP diastolic 57–86
[2017-05-02] MEDS: IV 1/2 NORMAL SALINE 1,000 ML IV SCH ×3 (01:27→21:28)
[2017-05-02] MEDS: ENOXAPARIN 40 MG/0.4 ML SYRINGE. SQ SCH (05:44)
[2017-05-02 06:24] LABS: BASO % 0 % (0-3); EOS % 1 % (0-3); HEMATOCRIT 42.1 % (39.0-53.0); HEMOGLOBIN 13.9 g/dL (13.0-17.5); LYMPH # 3.1 x10^3/uL (1.0-4.8); LYMPH % 27 % (24-48); MEAN CORPUSCULAR HEMOGLOBIN 33 pg (25-35); MEAN CORPUSCULAR HGB CONC 33 g/dL (31-37); MEAN CORPUSCULAR VOLUME 100 fL (79-100); MONO % 10 % (0-9); NEUT % 63 % (31-73); PLATELET COUNT 169 x10^3/uL (140-400); RED BLOOD COUNT 4.22 x10^6/uL (4.30-5.70); RED CELL DISTRIBUTION WIDTH 15.8 % (11.5-14.5); WHITE BLOOD COUNT 11.9 x10^3/uL (4.0-11.0)
[2017-05-02 06:38] LABS: CREATININE 0.8 mg/dL (0.7-1.3); GFR 95.3; POTASSIUM 4.6 mmol/L (3.5-5.1)
[2017-05-02] MEDS: NICOTINE 14MG PATCH. TD PRN (07:21)
[2017-05-02] MEDS: DIGOXIN 250 MCG TABLET. PO SCH (07:56)
[2017-05-02] MEDS: PANTOPRAZOLE IV PUSH 40 MG VIAL. IVP SCH (07:57)
[2017-05-02] MEDS: methylPREDNISolone SOD SUCC PF 40 MG/ML VIAL. IV SCH (07:59)
--- NOTE | 2017-05-02 13:08 | PDOC ---
PROGRESS NOTES Chief Complaint Chief Complaint Crohn's dz, colectomy ASSESSMENT AND PLAN: 1. s/p R part colectomy: recovering appropriately. 2. 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 Nutrition: NPO for now; advance diet as per surg team. consider PPN 4. Crohn's dz: on low dose steroid - hold in shana-op setting to improve wound healing. agree with short term stress dose steroids, stop ater tomorrow's dose 5. Leukocytosis: reactive, improving. monitor closely 6. Afib: fair rate control on digoxin .125. dig level only 0.6 => increase dose to .25 7. Prophylaxis: lovenox, PPI CBC/BMP in AM old records reviewed. DVT prophylaxis with PAS stockings. and Lovenox. Plan d/w at bedside, all questions answered. History of Present Illness History of Present Illness Abd oven tender bagels PErforation in other notes? 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0) Red Blood Count 4.22 x10^6/uL (4.30-5.70) Hemoglobin 13.9 g/dL (13.0-17.5) Hematocrit 42.1 % (39.0-53.0) Mean Corpuscular Volume 100 fL (79-100) Mean Corpuscular Hemoglobin 33 pg (25-35) Mean Corpuscular Hemoglobin Concent 33 g/dL (31-37) Red Cell Distribution Width 15.8 % (11.5-14.5) Platelet Count 169 x10^3/uL (140-400) Neutrophils (%) (Auto) 63 % (31-73) Lymphocytes (%) (Auto) 27 % (24-48) Monocytes (%) (Auto) 10 % (0-9) Eosinophils (%) (Auto) 1 % (0-3) Basophils (%) (Auto) 0 % (0-3) Neutrophils # (Auto) 7.4 x10^3uL (1.8-7.7) Lymphocytes # (Auto) 3.1 x10^3/uL (1.0-4.8) Monocytes # (Auto) 1.2 x10^3/uL (0.0-1.1) Eosinophils # (Auto) 0.1 x10^3/uL (0.0-0.7) Basophils # (Auto) 0.0 x10^3/uL (0.0-0.2) Sodium Level 135 mmol/L (136-145) Potassium Level 4.6 mmol/L (3.5-5.1) Chloride Level 98 mmol/L (98-107) Carbon Dioxide Level 29 mmol/L (21-32) Anion Gap 8 (6-14) Blood Urea Nitrogen 13 mg/dL (8-26) Creatinine 0.8 mg/dL (0.7-1.3) Estimated GFR (Cockcroft-Gault) 95.3 Glucose Level 65 mg/dL (70-99) Calcium Level 9.0 mg/dL (8.5-10.1) Assessment and Plan Assessmemt and Plan sore abd, all else is neg Problems: Comment Review of Relevant I have reviewed the following items manuel (where applicable) has been applied. Labs Laboratory Tests Test 05/01/17 03:30 05/02/17 06:10 White Blood Count 14.3 x10^3/uL (4.0-11.0) 11.9 x10^3/uL (4.0-11.0) Red Blood Count 4.47 x10^6/uL (4.30-5.70) 4.22 x10^6/uL (4.30-5.70) Hemoglobin 14.7 g/dL (13.0-17.5) 13.9 g/dL (13.0-17.5) Hematocrit 44.6 % (39.0-53.0) 42.1 % (39.0-53.0) Mean Corpuscular Volume 100 fL (79-100) 100 fL (79-100) Mean Corpuscular Hemoglobin 33 pg (25-35) 33 pg (25-35) Mean Corpuscular Hemoglobin Concent 33 g/dL (31-37) 33 g/dL (31-37) Red Cell Distribution Width 16.2 % (11.5-14.5) 15.8 % (11.5-14.5) Platelet Count 172 x10^3/uL (140-400) 169 x10^3/uL (140-400) Neutrophils (%) (Auto) 72 % (31-73) 63 % (31-73) Lymphocytes (%) (Auto) 19 % (24-48) 27 % (24-48) Monocytes (%) (Auto) 9 % (0-9) 10 % (0-9) Eosinophils (%) (Auto) 0 % (0-3) 1 % (0-3) Basophils (%) (Auto) 0 % (0-3) 0 % (0-3) Neutrophils # (Auto) 10.2 x10^3uL (1.8-7.7) 7.4 x10^3uL (1.8-7.7) Lymphocytes # (Auto) 2.7 x10^3/uL (1.0-4.8) 3.1 x10^3/uL (1.0-4.8) Monocytes # (Auto) 1.2 x10^3/uL (0.0-1.1) 1.2 x10^3/uL (0.0-1.1) Eosinophils # (Auto) 0.0 x10^3/uL (0.0-0.7) 0.1 x10^3/uL (0.0-0.7) Basophils # (Auto) 0.0 x10^3/uL (0.0-0.2) 0.0 x10^3/uL (0.0-0.2) Sodium Level 134 mmol/L (136-145) 135 mmol/L (136-145) Potassium Level 4.9 mmol/L (3.5-5.1) 4.6 mmol/L (3.5-5.1) Chloride Level 98 mmol/L (98-107) 98 mmol/L (98-107) Carbon Dioxide Level 31 mmol/L (21-32) 29 mmol/L (21-32) Anion Gap 5 (6-14) 8 (6-14) Blood Urea Nitrogen 12 mg/dL (8-26) 13 mg/dL (8-26) Creatinine 0.8 mg/dL (0.7-1.3) 0.8 mg/dL (0.7-1.3) Estimated GFR (Cockcroft-Gault) 95.3 95.3 BUN/Creatinine Ratio 15 (6-20) Glucose Level 93 mg/dL (70-99) 65 mg/dL (70-99) Calcium Level 8.9 mg/dL (8.5-10.1) 9.0 mg/dL (8.5-10.1) Total Bilirubin 0.7 mg/dL (0.2-1.0) Aspartate Amino Transf (AST/SGOT) 21 U/L (15-37) Alanine Aminotransferase (ALT/SGPT) 21 U/L (16-63) Alkaline Phosphatase 49 U/L (46-116) Total Protein 6.2 g/dL (6.4-8.2) Albumin 2.6 g/dL (3.4-5.0) Albumin/Globulin Ratio 0.7 (1.0-1.7) Digoxin Level 0.6 ng/mL (0.9-2.0) Digoxin Last Dose Date 04/30/17 Digoxin Last Dose Time 0900 Laboratory Tests Test 05/02/17 06:10 White Blood Count 11.9 x10^3/uL (4.0-11.0) Red Blood Count 4.22 x10^6/uL (4.30-5.70) Hemoglobin 13.9 g/dL (13.0-17.5) Hematocrit 42.1 % (39.0-53.0) Mean Corpuscular Volume 100 fL (79-100) Mean Corpuscular Hemoglobin 33 pg (25-35) Mean Corpuscular Hemoglobin Concent 33 g/dL (31-37) Red Cell Distribution Width 15.8 % (11.5-14.5) Platelet Count 169 x10^3/uL (140-400) Neutrophils (%) (Auto) 63 % (31-73) Lymphocytes (%) (Auto) 27 % (24-48) Monocytes (%) (Auto) 10 % (0-9) Eosinophils (%) (Auto) 1 % (0-3) Basophils (%) (Auto) 0 % (0-3) Neutrophils # (Auto) 7.4 x10^3uL (1.8-7.7) Lymphocytes # (Auto) 3.1 x10^3/uL (1.0-4.8) Monocytes # (Auto) 1.2 x10^3/uL (0.0-1.1) Eosinophils # (Auto) 0.1 x10^3/uL (0.0-0.7) Basophils # (Auto) 0.0 x10^3/uL (0.0-0.2) Sodium Level 135 mmol/L (136-145) Potassium Level 4.6 mmol/L (3.5-5.1) Chloride Level 98 mmol/L (98-107) Carbon Dioxide Level 29 mmol/L (21-32) Anion Gap 8 (6-14) Blood Urea Nitrogen 13 mg/dL (8-26) Creatinine 0.8 mg/dL (0.7-1.3) Estimated GFR (Cockcroft-Gault) 95.3 Glucose Level 65 mg/dL (70-99) Calcium Level 9.0 mg/dL (8.5-10.1) Medications Current Medications Ondansetron HCl (Zofran) 4 mg PRN Q6HRS PRN IV NAUSEA/VOMITING; Start 04/29/17 at 07:00; Stop 04/29/17 at 17:32; Status DC Fentanyl Citrate (Fentanyl 2ml Vial) 25 mcg PRN Q5MIN PRN IV MILD PAIN; Start 04/29/17 at 07:00; Stop 04/30/17 at 06:59; Status DC Fentanyl Citrate (Fentanyl 2ml Vial) 50 mcg PRN Q5MIN PRN IV MODERATE PAIN Last administered on 04/29/17 16:59; Start 04/29/17 at 07:00; Stop 04/30/17 at 06:59; Status DC Morphine Sulfate 1 mg PRN Q10MIN PRN IV SEVERE PAIN Last administered on 16:41; Start 04/29/17 at 07:00; Stop 04/30/17 at 06:59; Status DC Ringer's Solution 1,000 ml @ 30 mls/hr Q24H IV Last administered on 04/29/17 10:42; Start 04/29/17 at 07:00; Stop 04/29/17 at 18:59; Status DC Lidocaine HCl 2 ml PRN 1X PRN ID PRIOR TO IV START; Start 04/29/17 at 07:00; Stop 04/30/17 at 06:59; Status DC Hydromorphone HCl (Dilaudid) 0.5 mg PRN Q10MIN PRN IV SEV PAIN, Second choice; Start 04/29/17 at 07:00; Stop 04/30/17 at 06:59; Status DC Prochlorperazine Edisylate (Compazine) 5 mg PACU PRN PRN IV NAUSEA, MRX1; Start 04/29/17 at 07:00; Stop 04/30/17 at 06:59; Status DC Cefoxitin Sodium 1 gm/Sodium Chloride 50 ml @ 100 mls/hr 1X ONCE IV Last administered on 04/29/17 12:00; Start 04/29/17 at 06:00; Stop 04/29/17 at 06:29 ; Status DC Dexamethasone Sodium Phosphate (Decadron) 20 mg STK-MED ONCE .ROUTE ; Start at 10:47; Stop 04/29/17 at 10:48; Status DC Ondansetron HCl (Zofran) 4 mg STK-MED ONCE .ROUTE ; Start 04/29/17 at 10:47; Stop 04/29/17 at 10:48; Status DC Propofol 20 ml @ As Directed STK-MED ONCE IV ; Start 04/29/17 at 10:47; Stop at 10:48; Status DC Lidocaine HCl (Lidocaine Pf 2% Vial) 5 ml STK-MED ONCE .ROUTE ; Start 04/29/17 at 10:47; Stop 04/29/17 at 10:48; Status DC Desflurane (Suprane) 60 ml STK-MED ONCE IH ; Start 04/29/17 at 10:47; Stop 04/29 at 10:48; Status DC Fentanyl Citrate (Fentanyl 2ml Vial) 100 mcg STK-MED ONCE .ROUTE ; Start at 10:47; Stop 04/29/17 at 10:48; Status DC Rocuronium [place] (Zemuron) 50 mg STK-MED ONCE .ROUTE ; Start 04/29/17 at 10:47 ; Stop 04/29/17 at 10:48; Status DC Phenylephrine HCl 1 mg STK-MED ONCE IV ; Start 04/29/17 at 11:52; Stop 04/29/17 at 11:53; Status DC Hydrocortisone Sodium Succinate (Solu-CORTEF) 100 mg STK-MED ONCE .ROUTE ; Start 04/29/17 at 12:04; Stop 04/29/17 at 12:05; Status DC Fentanyl Citrate (Fentanyl 2ml Vial) 100 mcg STK-MED ONCE .ROUTE ; Start at 12:21; Stop 04/29/17 at 12:22; Status DC Rocuronium [place] (Zemuron) 50 mg STK-MED ONCE .ROUTE ; Start 04/29/17 at 12:53 ; Stop 04/29/17 at 12:54; Status DC Labetalol HCl (Normodyne) 20 mg STK-MED ONCE .ROUTE ; Start 04/29/17 at 12:53; Stop 04/29/17 at 12:54; Status DC Fentanyl Citrate (Fentanyl 2ml Vial) 100 mcg STK-MED ONCE .ROUTE ; Start at 12:55; Stop 04/29/17 at 12:56; Status DC Esmolol HCl (Brevibloc) 100 mg STK-MED ONCE IV ; Start 04/29/17 at 12:59; Stop 04/29/17 at 13:00; Status DC Morphine Sulfate 10 mg STK-MED ONCE .ROUTE ; Start 04/29/17 at 13:03; Stop 04/29 at 13:04; Status DC Rocuronium [place] (Zemuron) 100 mg STK-MED ONCE .ROUTE ; Start 04/29/17 at 14: 10; Stop 04/29/17 at 14:11; Status DC Fentanyl Citrate (Fentanyl 2ml Vial) 100 mcg STK-MED ONCE .ROUTE ; Start at 15:08; Stop 04/29/17 at 15:09; Status DC Glycopyrrolate (Robinul) 1 mg STK-MED ONCE .ROUTE ; Start 04/29/17 at 15:29; Stop 04/29/17 at 15:30; Status DC Neostigmine Methylsulfate 5 mg STK-MED ONCE .ROUTE ; Start 04/29/17 at 15:29; Stop 04/29/17 at 15:30; Status DC Esmolol HCl (Brevibloc) 100 mg STK-MED ONCE IV ; Start 04/29/17 at 16:05; Stop 04/29/17 at 16:06; Status DC Diphenhydramine HCl (Benadryl) 25 mg PRN Q6HRS PRN IV ITCHING Last administered on 05/01/17 20:21; Start 04/29/17 at 16:30 Enoxaparin Sodium (Lovenox 40mg Syringe) 40 mg Q24H SQ Last administered on 05:44; Start 04/30/17 at 06:00 Sodium Chloride (Normal Saline Flush) 3 ml QSHIFT PRN IV AFTER MEDS AND BLOOD DRAWS; Start 04/29/17 at 16:30 Potassium Chloride/Sodium Chloride 1,000 ml @ 100 mls/hr Q10H IV Last administered on 05/01/17 00:17; Start 04/29/17 at 16:26; Stop 05/01/17 at 18:31 ; Status DC Hydromorphone HCl 30 ml @ 0 mls/hr CONT PRN PRN IV PROTOCOL Last administered on 04/30/17 18:01; Start 04/29/17 at 16:30 Ondansetron HCl (Zofran) 4 mg PRN Q6HRS PRN IV NAUESA, 1ST CHOICE; Start at 16:30; Stop 05/02/17 at 12:27; Status DC Throat Lozenges (Chloraseptic) 1 spray PRN Q2HR PRN PO SORE THROAT; Start 04/29 at 16:45 Throat Lozenges (Chloraseptic) 1 spray PRN Q2HR PRN PO SORE THROAT; Start 04/29 at 16:45; Stop 04/29/17 at 17:32; Status DC Digoxin (Lanoxin) 125 mcg DAILY PO Last administered on 05/01/17 09:32; Start 04/30/17 at 09:00; Stop 05/01/17 at 14:05; Status DC Prednisone (Prednisone) 10 mg DAILY PO ; Start 04/30/17 at 09:00; Stop 04/30/17 at 16:33; Status DC Methylprednisolone Sodium Succinate (SOLU-Medrol 40MG VIAL) 15 mg DAILY IV Last administered on 05/02/17 07:59; Start 04/30/17 at 11:00; Stop 05/02/17 at 14:00 Pantoprazole Sodium (Protonix Vial) 40 mg DAILYAC IVP Last administered on 05/02 07:57; Start 04/30/17 at 17:00 Digoxin (Lanoxin) 250 mcg DAILY PO Last administered on 05/02/17 07:56; Start 05/02/17 at 09:00 Sodium Chloride 1,000 ml @ 100 mls/hr Q10H IV Last administered on 05/02/17 11:34; Start 05/01/17 at 18:30 Nicotine (Nicoderm Cq 14mg) 1 patch PRN DAILY PRN TD SMOKING CESSATION Last administered on 05/02/17 07:21; Start 05/02/17 at 06:45 Ondansetron HCl (Zofran) 4 mg PRN Q6HRS PRN IV NAUSEA/VOMITING; Start 05/02/17 at 12:30 Acetaminophen/ Hydrocodone Bitart (Lortab 5/325) 1 tab PRN Q4HRS PRN PO PAIN; Start 05/02/17 at 12:30 Fentanyl Citrate (Fentanyl 2ml Vial) 50 mcg PRN Q2HR PRN IV PAIN; Start at 12:30 Active Scripts Active Reported Melatonin 3 Mg Tablet 1 Tab PO QHS Move Free Joint Health Tablet (Glucosam/Chond/Hyalu/Cf Borate) 1 Each Tablet 1 Each PO DAILY Digoxin 125 Mcg Tablet 1 Tab PO DAILY Prednisone 10 Mg Tablet 10 Mg PO DAILY Vitals/I & O Vital Sign - Last 24 Hours 05/01/17 05/01/17 05/01/17 05/01/17 15:00 19:37 20:00 23:11 Temp 97.5 97.5 97.8 97.5 97.5 97.8 Pulse 62 93 93 Resp 18 18 18 B/P (MAP) 110/77 (88) 110/73 (85) 109/73 (85) Pulse Ox 96 96 92 O2 Delivery Nasal Cannula Room Air Room Air Room Air O2 Flow Rate 2.0 05/02/17 05/02/17 05/02/17 05/02/17 03:21 07:00 07:56 08:00 Temp 97.6 96.3 97.6 96.3 Pulse 84 94 84 Resp 18 20 B/P (MAP) 123/67 (85) 100/73 (82) 123/67 Pulse Ox 93 97 O2 Delivery Room Air Room Air Room Air 05/02/17 11:00 Temp 96.1 96.1 Pulse 67 Resp 20 B/P (MAP) 108/67 (81) Pulse Ox 91 O2 Delivery Room Air Intake and Output 05/01/17 05/01/17 05/02/17 14:59 22:59 06:59 Intake Total 1000 ml Output Total 1301 ml 560 ml Balance -1301 ml 440 ml SILAS [place] MD May 02, 2017 13:08
--- NOTE | 2017-05-02 14:31 | PDOC ---
Provider Note Provider Note I saw him earlier today. is ambulating in halls and passing flatus afeb vss alert, appears well abd soft nd nt a/p start clears. LURDES MURCIA MD May 02, 2017 14:31
[2017-05-02] MEDS: diphenhydrAMINE 50 MG/ML VIAL IV PRN (18:42)
[2017-05-03] MEDS: diphenhydrAMINE 50 MG/ML VIAL IV PRN ×4 (01:18→21:43)
[2017-05-03] MEDS: ENOXAPARIN 40 MG/0.4 ML SYRINGE. SQ SCH (03:27)
[2017-05-03 03:59] VITALS: BP 134/92
[2017-05-03 07:00] VITALS: BP 143/98
[2017-05-03] MEDS: IV 1/2 NORMAL SALINE 1,000 ML IV SCH ×2 (08:15→17:38)
[2017-05-03] MEDS ORDERED: FAMOTIDINE 20 MG/2 ML VIAL IVP SCH (09:00)
[2017-05-03] MEDS: DIGOXIN 250 MCG TABLET. PO SCH (09:01)
[2017-05-03] MEDS: ONDANSETRON PF 4 MG/2 ML VIAL. IV PRN (09:25)
[2017-05-03] MEDS: fentaNYL PF VIAL 100 MCG/2 ML VIAL IV PRN ×3 (09:26→21:43)
--- NOTE | 2017-05-03 09:44 | PDOC ---
PROGRESS NOTES Chief Complaint Chief Complaint 1. s/p R part colectomy: with 2 indwelling LASHAUN drains POD # 5 2. 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 Crohn's dz wa son low dose steroid 4. Leukocytosis: reactive, better 5. Afib: chronic rate controlled History of Present Illness History of Present Illness Abd shear tender PErforation in other notes? Claims abd shear tender BUt i encouraged again today need to get off manager cardiac - finally agreed Walked the halls 8 rounds with RN yesterday Eating liquid diet ok PAssing gas Abd inspected - dressings dry, 2 LASHAUN drains, L and R PLAN: STart MS contin Prn IV and pO pain med (percocet and dilaudid IV prn) COnt ambulation Diet per GS Dominik Rn at bedside Vitals Vitals Vital Signs Date Time Temp Pulse Resp B/P (MAP) Pulse Ox O2 Delivery O2 Flow Rate FiO2 05/03/17 09:26 96 Room Air 2.0 05/03/17 09:01 119 143/98 05/03/17 07:00 95.4 20 95.4 Physical Exam General: Alert, Oriented X3, Cooperative, No acute distress Heart: Regular rate, Normal S1, Normal S2, No murmurs, Other (irreg irreg) Lungs: Clear Abdomen: Normal bowel sounds, Soft, Other (dressing dry, LASHAUN x 2 serosang) Extremities: No clubbing Skin: No rashes Review of Systems Review of Systems abd pain, no emsis, diarrhea, CP< SOA Comment Review of Relevant I have reviewed the following items manuel (where applicable) has been applied. Labs Laboratory Tests Test 05/02/17 06:10 White Blood Count 11.9 x10^3/uL (4.0-11.0) Red Blood Count 4.22 x10^6/uL (4.30-5.70) Hemoglobin 13.9 g/dL (13.0-17.5) Hematocrit 42.1 % (39.0-53.0) Mean Corpuscular Volume 100 fL (79-100) Mean Corpuscular Hemoglobin 33 pg (25-35) Mean Corpuscular Hemoglobin Concent 33 g/dL (31-37) Red Cell Distribution Width 15.8 % (11.5-14.5) Platelet Count 169 x10^3/uL (140-400) Neutrophils (%) (Auto) 63 % (31-73) Lymphocytes (%) (Auto) 27 % (24-48) Monocytes (%) (Auto) 10 % (0-9) Eosinophils (%) (Auto) 1 % (0-3) Basophils (%) (Auto) 0 % (0-3) Neutrophils # (Auto) 7.4 x10^3uL (1.8-7.7) Lymphocytes # (Auto) 3.1 x10^3/uL (1.0-4.8) Monocytes # (Auto) 1.2 x10^3/uL (0.0-1.1) Eosinophils # (Auto) 0.1 x10^3/uL (0.0-0.7) Basophils # (Auto) 0.0 x10^3/uL (0.0-0.2) Sodium Level 135 mmol/L (136-145) Potassium Level 4.6 mmol/L (3.5-5.1) Chloride Level 98 mmol/L (98-107) Carbon Dioxide Level 29 mmol/L (21-32) Anion Gap 8 (6-14) Blood Urea Nitrogen 13 mg/dL (8-26) Creatinine 0.8 mg/dL (0.7-1.3) Estimated GFR (Cockcroft-Gault) 95.3 Glucose Level 65 mg/dL (70-99) Calcium Level 9.0 mg/dL (8.5-10.1) Medications Current Medications Ondansetron HCl (Zofran) 4 mg PRN Q6HRS PRN IV NAUSEA/VOMITING; Start 04/29/17 at 07:00; Stop 04/29/17 at 17:32; Status DC Fentanyl Citrate (Fentanyl 2ml Vial) 25 mcg PRN Q5MIN PRN IV MILD PAIN; Start 04/29/17 at 07:00; Stop 04/30/17 at 06:59; Status DC Fentanyl Citrate (Fentanyl 2ml Vial) 50 mcg PRN Q5MIN PRN IV MODERATE PAIN Last administered on 04/29/17 16:59; Start 04/29/17 at 07:00; Stop 04/30/17 at 06:59; Status DC Morphine Sulfate 1 mg PRN Q10MIN PRN IV SEVERE PAIN Last administered on 16:41; Start 04/29/17 at 07:00; Stop 04/30/17 at 06:59; Status DC Ringer's Solution 1,000 ml @ 30 mls/hr Q24H IV Last administered on 04/29/17t 10:42; Start 04/29/17 at 07:00; Stop 04/29/17 at 18:59; Status DC Lidocaine HCl 2 ml PRN 1X PRN ID PRIOR TO IV START; Start 04/29/17 at 07:00; Stop 04/30/17 at 06:59; Status DC Hydromorphone HCl (Dilaudid) 0.5 mg PRN Q10MIN PRN IV SEV PAIN, Second choice; Start 04/29/17 at 07:00; Stop 04/30/17 at 06:59; Status DC Prochlorperazine Edisylate (Compazine) 5 mg PACU PRN PRN IV NAUSEA, MRX1; Start 04/29/17 at 07:00; Stop 04/30/17 at 06:59; Status DC Cefoxitin Sodium 1 gm/Sodium Chloride 50 ml @ 100 mls/hr 1X ONCE IV Last administered on 04/29/17t 12:00; Start 04/29/17 at 06:00; Stop 04/29/17 at 06:29 ; Status DC Dexamethasone Sodium Phosphate (Decadron) 20 mg STK-MED ONCE .ROUTE ; Start at 10:47; Stop 04/29/17 at 10:48; Status DC Ondansetron HCl (Zofran) 4 mg STK-MED ONCE .ROUTE ; Start 04/29/17 at 10:47; Stop 04/29/17 at 10:48; Status DC Propofol 20 ml @ As Directed STK-MED ONCE IV ; Start 04/29/17 at 10:47; Stop at 10:48; Status DC Lidocaine HCl (Lidocaine Pf 2% Vial) 5 ml STK-MED ONCE .ROUTE ; Start 04/29/17 at 10:47; Stop 04/29/17 at 10:48; Status DC Desflurane (Suprane) 60 ml STK-MED ONCE IH ; Start 04/29/17 at 10:47; Stop 04/29 at 10:48; Status DC Fentanyl Citrate (Fentanyl 2ml Vial) 100 mcg STK-MED ONCE .ROUTE ; Start at 10:47; Stop 04/29/17 at 10:48; Status DC Rocuronium [place] (Zemuron) 50 mg STK-MED ONCE .ROUTE ; Start 04/29/17 at 10:47 ; Stop 04/29/17 at 10:48; Status DC Phenylephrine HCl 1 mg STK-MED ONCE IV ; Start 04/29/17 at 11:52; Stop 04/29/17 at 11:53; Status DC Hydrocortisone Sodium Succinate (Solu-CORTEF) 100 mg STK-MED ONCE .ROUTE ; Start 04/29/17 at 12:04; Stop 04/29/17 at 12:05; Status DC Fentanyl Citrate (Fentanyl 2ml Vial) 100 mcg STK-MED ONCE .ROUTE ; Start at 12:21; Stop 04/29/17 at 12:22; Status DC Rocuronium [place] (Zemuron) 50 mg STK-MED ONCE .ROUTE ; Start 04/29/17 at 12:53 ; Stop 04/29/17 at 12:54; Status DC Labetalol HCl (Normodyne) 20 mg STK-MED ONCE .ROUTE ; Start 04/29/17 at 12:53; Stop 04/29/17 at 12:54; Status DC Fentanyl Citrate (Fentanyl 2ml Vial) 100 mcg STK-MED ONCE .ROUTE ; Start at 12:55; Stop 04/29/17 at 12:56; Status DC Esmolol HCl (Brevibloc) 100 mg STK-MED ONCE IV ; Start 04/29/17 at 12:59; Stop 04/29/17 at 13:00; Status DC Morphine Sulfate 10 mg STK-MED ONCE .ROUTE ; Start 04/29/17 at 13:03; Stop 04/29 at 13:04; Status DC Rocuronium [place] (Zemuron) 100 mg STK-MED ONCE .ROUTE ; Start 04/29/17 at 14: 10; Stop 04/29/17 at 14:11; Status DC Fentanyl Citrate (Fentanyl 2ml Vial) 100 mcg STK-MED ONCE .ROUTE ; Start at 15:08; Stop 04/29/17 at 15:09; Status DC Glycopyrrolate (Robinul) 1 mg STK-MED ONCE .ROUTE ; Start 04/29/17 at 15:29; Stop 04/29/17 at 15:30; Status DC Neostigmine Methylsulfate 5 mg STK-MED ONCE .ROUTE ; Start 04/29/17 at 15:29; Stop 04/29/17 at 15:30; Status DC Esmolol HCl (Brevibloc) 100 mg STK-MED ONCE IV ; Start 04/29/17 at 16:05; Stop 04/29/17 at 16:06; Status DC Diphenhydramine HCl (Benadryl) 25 mg PRN Q6HRS PRN IV ITCHING Last administered on 05/03/17 07:33; Start 04/29/17 at 16:30 Enoxaparin Sodium (Lovenox 40mg Syringe) 40 mg Q24H SQ Last administered on 03:27; Start 04/30/17 at 06:00 Sodium Chloride (Normal Saline Flush) 3 ml QSHIFT PRN IV AFTER MEDS AND BLOOD DRAWS; Start 04/29/17 at 16:30 Potassium Chloride/Sodium Chloride 1,000 ml @ 100 mls/hr Q10H IV Last administered on 05/01/17 00:17; Start 04/29/17 at 16:26; Stop 05/01/17 at 18:31 ; Status DC Hydromorphone HCl 30 ml @ 0 mls/hr CONT PRN PRN IV PROTOCOL Last administered on 04/30/17 18:01; Start 04/29/17 at 16:30 Ondansetron HCl (Zofran) 4 mg PRN Q6HRS PRN IV NAUESA, 1ST CHOICE; Start at 16:30; Stop 05/02/17 at 12:27; Status DC Throat Lozenges (Chloraseptic) 1 spray PRN Q2HR PRN PO SORE THROAT; Start 04/29 at 16:45 Throat Lozenges (Chloraseptic) 1 spray PRN Q2HR PRN PO SORE THROAT; Start 04/29 at 16:45; Stop 04/29/17 at 17:32; Status DC Digoxin (Lanoxin) 125 mcg DAILY PO Last administered on 05/01/17 09:32; Start 04/30/17 at 09:00; Stop 05/01/17 at 14:05; Status DC Prednisone (Prednisone) 10 mg DAILY PO ; Start 04/30/17 at 09:00; Stop 04/30/17 at 16:33; Status DC Methylprednisolone Sodium Succinate (SOLU-Medrol 40MG VIAL) 15 mg DAILY IV Last administered on 05/02/17 07:59; Start 04/30/17 at 11:00; Stop 05/02/17 at 14:00; Status DC Pantoprazole Sodium (Protonix Vial) 40 mg DAILYAC IVP Last administered on 05/02 07:57; Start 04/30/17 at 17:00; Stop 05/02/17 at 13:45; Status DC Digoxin (Lanoxin) 250 mcg DAILY PO Last administered on 05/03/17 09:01; Start 05/02/17 at 09:00 Sodium Chloride 1,000 ml @ 100 mls/hr Q10H IV Last administered on 05/03/17 08:15; Start 05/01/17 at 18:30 Nicotine (Nicoderm Cq 14mg) 1 patch PRN DAILY PRN TD SMOKING CESSATION Last administered on 05/02/17 07:21; Start 05/02/17 at 06:45 Ondansetron HCl (Zofran) 4 mg PRN Q6HRS PRN IV NAUSEA/VOMITING Last administered on 05/03/17 09:25; Start 05/02/17 at 12:30 Acetaminophen/ Hydrocodone Bitart (Lortab 5/325) 1 tab PRN Q4HRS PRN PO PAIN; Start 05/02/17 at 12:30 Fentanyl Citrate (Fentanyl 2ml Vial) 50 mcg PRN Q2HR PRN IV PAIN Last administered on 05/03/17 09:26; Start 05/02/17 at 12:30 Famotidine (Pepcid) 20 mg DAILY IVP Last administered on 05/03/17 09:01; Start 05/03/17 at 09:00 Active Scripts Active Reported Melatonin 3 Mg Tablet 1 Tab PO QHS Move Free [facility] Health Tablet (Glucosam/Chond/Hyalu/Cf Borate) 1 Each Tablet 1 Each PO DAILY Digoxin 125 Mcg Tablet 1 Tab PO DAILY Prednisone 10 Mg Tablet 10 Mg PO DAILY Vitals/I & O Vital Sign - Last 24 Hours 05/02/17 05/02/17 05/02/17 05/02/17 11:00 15:00 19:00 19:47 Temp 96.1 96.8 98.1 96.1 96.8 98.1 Pulse 67 91 77 Resp 20 20 20 B/P (MAP) 108/67 (81) 104/73 (83) 116/57 (76) Pulse Ox 91 99 95 O2 Delivery Room Air Room Air Room Air Room Air 05/02/17 05/02/17 05/02/17 05/03/17 19:59 20:30 23:59 03:59 Temp 97.4 96.9 98.5 97.4 96.9 98.5 Pulse 92 99 107 Resp 18 18 20 B/P (MAP) 128/86 (100) 119/84 (96) 134/92 (106) Pulse Ox 97 96 97 O2 Delivery Room Air Room Air Room Air Room Air 05/03/17 05/03/17 05/03/17 07:00 09:01 09:26 Temp 95.4 95.4 Pulse 119 119 Resp 20 B/P (MAP) 143/98 (113) 143/98 Pulse Ox 96 96 O2 Delivery Room Air Room Air O2 Flow Rate 2.0 Intake and Output 05/02/17 05/02/17 05/03/17 15:00 23:00 07:00 Intake Total 405.5 ml Output Total 50 ml 2545 ml 215 ml Balance -50 ml -2545 ml 190.5 ml SILAS [place] MD May 03, 2017 09:44
[2017-05-03] MEDS: MORPHINE ER 15 MG TABLET.ER PO SCH ×2 (10:38→20:04)
[2017-05-03 11:00] VITALS: BP 98/60
[2017-05-03] MEDS: HYDROmorphone 2 MG/ML VIAL IV PRN ×2 (13:38→23:46)
[2017-05-03 15:00] VITALS: BP 106/73
[2017-05-03 19:00] VITALS: BP 104/55
--- NOTE | 2017-05-03 19:05 | PDOC ---
Provider Note Provider Note nausea today. bloated. +flatus right sided drain fell out last night afeb vss abd soft distended min tender inc cdi a/p bloating and intermittent nausea. will not advance diet today. LURDES MURCIA MD May 03, 2017 19:05
[2017-05-03] MEDS: METOPROLOL TART IMMED RELEASE 25 MG TABLET. PO SCH ×2 (20:03→23:46)
[2017-05-03] MEDS: HYDROcodone/APAP 5/325MG 1 TAB TABLET PO PRN ×2 (20:04→23:46)
[2017-05-03 23:00] VITALS: BP 132/77
[2017-05-04] MEDS: HYDROcodone/APAP 5/325MG 1 TAB TABLET PO PRN ×3 (03:24→17:13)
[2017-05-04] MEDS: HYDROmorphone 2 MG/ML VIAL IV PRN ×2 (03:24→11:13)
[2017-05-04] MEDS: IV 1/2 NORMAL SALINE 1,000 ML IV SCH (03:25)
[2017-05-04] MEDS: METOPROLOL TART IMMED RELEASE 25 MG TABLET. PO SCH ×3 (06:33→20:17)
[2017-05-04] MEDS: ENOXAPARIN 40 MG/0.4 ML SYRINGE. SQ SCH (06:33)
[2017-05-04 07:00] VITALS: BP 107/77
[2017-05-04] MEDS: MORPHINE ER 15 MG TABLET.ER PO SCH ×2 (08:10→21:35)
[2017-05-04] MEDS: DIGOXIN 250 MCG TABLET. PO SCH (08:11)
--- NOTE | 2017-05-04 09:10 | PDOC ---
FERNANDO CEJA APRN 05/04/17 0910: SURGICAL PROGRESS NOTE Subjective taking some clears, belching, some nausea and reports emesis yesterday afib noted, cardiology consult pending Vital Signs Vital Signs Date Time Temp Pulse Resp B/P (MAP) Pulse Ox O2 Delivery O2 Flow Rate FiO2 05/04/17 08:11 108 107/77 05/04/17 08:10 Room Air 05/04/17 07:00 98.2 20 96 98.2 05/03/17 18:45 2.0 I&O Intake and Output 05/04/17 06:59 Intake Total 369 ml Output Total 140 ml Balance 229 ml IV Total 369 ml Output Urine Total 100 ml Drainage Total 40 ml # Voids 6 # Bowel Movements 4 General: Alert, Cooperative, No acute distress Abdomen: Soft, Other (mildly distended, dressing dry, incisional tenderness ) Problem List s/p right colon resection, ileocolectomy, DALLIN on clears, still some slow bowel function--nausea, belching--continue clears for now, will start TPN for nutritional support afib, cardiology consulted Problems: RON GROSS MD 05/04/17 1317: SURGICAL PROGRESS NOTE Assessment/Plan pt seen and examined agree with plan (PICC, TPN) passing loose stools Problems: FERNANDO CEJA APRN May 04, 2017 09:10 RON GROSS MD May 04, 2017 13:17
--- NOTE | 2017-05-04 10:53 | PDOC2 ---
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 DIRECTOR SOFTWARE 05/04/17 1053: CARDIAC CONSULT DATE OF CONSULT Date of Consult DATE: 05/04/17 TIME: 10:31 REASON FOR CONSULT Reason for Consult: Chronic AFIB Episode of RVR REFERRING PHYSICIAN Referring Physician: Dr. Robert SOURCE Source: Chart review, Patient HISTORY OF PRESENT ILLNESS HISTORY OF PRESENT ILLNESS This is a 71 yo male with h/o chronic AFIB and Crohn's Dx, who presented electively for an extended right colon resection with ileocolotomy. Post- operatively, has has periods of RVR, which prompted this consult. Presently on Digoxin; was increased 250mcg. Metoprolol 12.5mg q6 added last night with improvement in rate control. PAST MEDICAL HISTORY Past Medical History Cardiovascular: AFIB, Hyperlipidemia Pulmonary: No pertinent hx CENTRAL NERVOUS SYSTEM: Other (no pertinent hx ) GI: Other (Crohn's Dx, ruptured viscus with temp colostomy) Heme/Onc: No pertinent hx Hepatobiliary: No pertinent hx Psych: No pertinent hx Musculoskeletal: Osteoarthritis Rheumatologic: No pertinent hx Infectious disease: No pertinent hx ENT: No pertinent hx Renal/: acute renal insuff., Other (kidney stones) Endocrine: No pertinent hx Dermatology: No pertinent hx PAST SURGICAL HISTORY Past Surgical History: Hernia Repair, Colon Resection, Other (see PMH) SOCIAL HISTORY Smoke: <1 pack per day ALCOHOL: other (beer daily ) Lives: with Family CURRENT MEDICATIONS CURRENT MEDICATIONS Current Medications Medications (Trade) Dose Ordered Sig/Ofelia Route PRN Reason Start Time Stop Time Status Last Admin Dose Admin Metoprolol Tartrate (Lopressor) 12.5 mg Q6HRS PO 05/03/17 19:00 05/04/17 06:33 ALLERGIES ALLERGIES: Coded Allergies: No Known Drug Allergies (Unverified , 04/29/17) ROS Review of System 14 point ROS conducted with pertinent positives noted above in HPI. PHYSICAL EXAM General: Alert, Oriented X3, Cooperative, No acute distress Lungs: Other (diminished throughout- encouraged IS) Heart: Other (IRR: tele AFIB) Abdomen: Other (DRSG cdi, incisional tenderness, mild distention ) Extremities: No edema, Normal pulses Skin: No significant lesion Neuro: Normal speech, Sensation intact Psych/Mental Status: Mental status NL, Mood NL MUSCULOSKELETAL: Osteoarthritic changes both hands VITALS VITALS Vital Signs Date Time Temp Pulse Resp B/P (MAP) Pulse Ox O2 Delivery O2 Flow Rate FiO2 05/04/17 08:11 108 107/77 05/04/17 08:10 Room Air 05/04/17 07:00 98.2 20 96 98.2 05/03/17 18:45 2.0 ECHOCARDIOGRAM ECHOCARDIOGRAM <Conclusion> The left ventricular systolic function is normal and the ejection fraction is within normal range. The Ejection Fraction is 50-55%. There is normal LV segmental wall motion. Tissue Doppler imaging reveals moderate left ventricular diastolic dysfunction. DATE: 01/27/17 164 ASSESSMENT/PLAN ASSESSMENT/PLAN 1. Chronic atrial fibrillation, now with RVR 2. S/p right colon resection with ileocolotomy; POD 3. Post-operative pain 4. Crohn's Dx 5. Leukocytosis 6. Tobaccoism Recommendations Continue Dig and metoprolol for rate control. Will convert metoprolol to BID as BP has been tolerating. Maintain pain control Add ASA for stroke prevention if okay with surgical team Supportive care Continue post-op management per surgical team. Problems: KATIE PARK MD 05/04/172107: CARDIAC CONSULT ALLERGIES ALLERGIES: Coded Allergies: No Known Drug Allergies (Unverified , 04/29/17) ASSESSMENT/PLAN ASSESSMENT/PLAN Pt. seen and examined. Agree with above DESK ASSISTANT note. 71 y.o male with chronic afib, followed via [facility] presents for colostomy reversal Mild afib with rvr, HR 120's. Dig/Metop restarted. limited due to prior liver issues, low BP and electrolyte abn with respect to anti-arrhythmic therapy For now, he is stable and once pain is controlled, if he is still has significant tachycardia, can then consider addition of amiodarone or tikosyn. Will follow along peripherally. Thanks for consult. Problems: 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 APRN May 04, 2017 10:53 KATIE PARK MD May 04, 2017 21:08
[2017-05-04 11:00] VITALS: BP 102/61
[2017-05-04] MEDS: NICOTINE 14MG PATCH. TD PRN (11:15)
[2017-05-04 12:15] LABS: CALCIUM 9.4 mg/dL (8.5-10.1); CREATININE 1.3 mg/dL (0.7-1.3); GFR 54.4; POTASSIUM 4.4 mmol/L (3.5-5.1)
[2017-05-04 12:18] LABS: MAGNESIUM 1.6 mg/dL (1.8-2.4); PHOSPHORUS 4.1 mg/dL (2.6-4.7)
--- NOTE | 2017-05-04 12:28 | PDOC ---
PROGRESS NOTES Chief Complaint Chief Complaint 1. s/p R part colectomy: with 2 indwelling LASHAUN drains POD # 6 2. 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 Crohn's dz wa son low dose steroid 4. Leukocytosis: reactive, better 5. Afib: chronic rate controlled 6. ongoing abd pain s.p #1 History of Present Illness History of Present Illness abd pain ongoing 03/18, s/p IV pain meds was asleep, easily aroused he is happy with current pain plan + flatus, has stooled able to ambulate he wants to back off liquid diet now, had trouble last night with eating, this will delay DC plan Vitals Vitals Vital Signs Date Time Temp Pulse Resp B/P (MAP) Pulse Ox O2 Delivery O2 Flow Rate FiO2 05/04/17 12:01 Room Air 05/04/17 11:14 108 107/77 05/04/17 11:00 98.5 22 96 98.5 05/03/17 18:45 2.0 Physical Exam General: Alert, Oriented X3, Cooperative, No acute distress Heart: Regular rate, Normal S1, Normal S2, No murmurs, Other (irreg irreg) Lungs: Clear Abdomen: Other (DRSG cdi, incisional tenderness, mild distention ) Extremities: No clubbing Skin: No rashes Labs LABS Laboratory Tests Test 05/04/17 11:35 Sodium Level 134 mmol/L (136-145) Potassium Level 4.4 mmol/L (3.5-5.1) Chloride Level 97 mmol/L (98-107) Carbon Dioxide Level 26 mmol/L (21-32) Anion Gap 11 (6-14) Blood Urea Nitrogen 22 mg/dL (8-26) Creatinine 1.3 mg/dL (0.7-1.3) Estimated GFR (Cockcroft-Gault) 54.4 Glucose Level 118 mg/dL (70-99) Calcium Level 9.4 mg/dL (8.5-10.1) Phosphorus Level 4.1 mg/dL (2.6-4.7) Magnesium Level 1.6 mg/dL (1.8-2.4) Review of Systems Review of Systems abd pain, nausea and bloating, s/p clear liquids last night minimal PO intake Comment Review of Relevant I have reviewed the following items manuel (where applicable) has been applied. Labs Laboratory Tests Test 05/04/17 11:35 Sodium Level 134 mmol/L (136-145) Potassium Level 4.4 mmol/L (3.5-5.1) Chloride Level 97 mmol/L (98-107) Carbon Dioxide Level 26 mmol/L (21-32) Anion Gap 11 (6-14) Blood Urea Nitrogen 22 mg/dL (8-26) Creatinine 1.3 mg/dL (0.7-1.3) Estimated GFR (Cockcroft-Gault) 54.4 Glucose Level 118 mg/dL (70-99) Calcium Level 9.4 mg/dL (8.5-10.1) Phosphorus Level 4.1 mg/dL (2.6-4.7) Magnesium Level 1.6 mg/dL (1.8-2.4) Laboratory Tests Test 05/04/17 11:35 Sodium Level 134 mmol/L (136-145) Potassium Level 4.4 mmol/L (3.5-5.1) Chloride Level 97 mmol/L (98-107) Carbon Dioxide Level 26 mmol/L (21-32) Anion Gap 11 (6-14) Blood Urea Nitrogen 22 mg/dL (8-26) Creatinine 1.3 mg/dL (0.7-1.3) Estimated GFR (Cockcroft-Gault) 54.4 Glucose Level 118 mg/dL (70-99) Calcium Level 9.4 mg/dL (8.5-10.1) Phosphorus Level 4.1 mg/dL (2.6-4.7) Magnesium Level 1.6 mg/dL (1.8-2.4) Medications Current Medications Ondansetron HCl (Zofran) 4 mg PRN Q6HRS PRN IV NAUSEA/VOMITING; Start 04/29/17 at 07:00; Stop 04/29/17 at 17:32; Status DC Fentanyl Citrate (Fentanyl 2ml Vial) 25 mcg PRN Q5MIN PRN IV MILD PAIN; Start 04/29/17 at 07:00; Stop 04/30/17 at 06:59; Status DC Fentanyl Citrate (Fentanyl 2ml Vial) 50 mcg PRN Q5MIN PRN IV MODERATE PAIN Last administered on 04/29/17t 16:59; Start 04/29/17 at 07:00; Stop 04/30/17 at 06:59; Status DC Morphine Sulfate 1 mg PRN Q10MIN PRN IV SEVERE PAIN Last administered on 16:41; Start 04/29/17 at 07:00; Stop 04/30/17 at 06:59; Status DC Ringer's Solution 1,000 ml @ 30 mls/hr Q24H IV Last administered on 04/29/17 10:42; Start 04/29/17 at 07:00; Stop 04/29/17 at 18:59; Status DC Lidocaine HCl 2 ml PRN 1X PRN ID PRIOR TO IV START; Start 04/29/17 at 07:00; Stop 04/30/17 at 06:59; Status DC Hydromorphone HCl (Dilaudid) 0.5 mg PRN Q10MIN PRN IV SEV PAIN, Second choice; Start 04/29/17 at 07:00; Stop 04/30/17 at 06:59; Status DC Prochlorperazine Edisylate (Compazine) 5 mg PACU PRN PRN IV NAUSEA, MRX1; Start 04/29/17 at 07:00; Stop 04/30/17 at 06:59; Status DC Cefoxitin Sodium 1 gm/Sodium Chloride 50 ml @ 100 mls/hr 1X ONCE IV Last administered on 04/29/17 12:00; Start 04/29/17 at 06:00; Stop 04/29/17 at 06:29 ; Status DC Dexamethasone Sodium Phosphate (Decadron) 20 mg STK-MED ONCE .ROUTE ; Start at 10:47; Stop 04/29/17 at 10:48; Status DC Ondansetron HCl (Zofran) 4 mg STK-MED ONCE .ROUTE ; Start 04/29/17 at 10:47; Stop 04/29/17 at 10:48; Status DC Propofol 20 ml @ As Directed STK-MED ONCE IV ; Start 04/29/17 at 10:47; Stop at 10:48; Status DC Lidocaine HCl (Lidocaine Pf 2% Vial) 5 ml STK-MED ONCE .ROUTE ; Start 04/29/17 at 10:47; Stop 04/29/17 at 10:48; Status DC Desflurane (Suprane) 60 ml STK-MED ONCE IH ; Start 04/29/17 at 10:47; Stop 04/29 at 10:48; Status DC Fentanyl Citrate (Fentanyl 2ml Vial) 100 mcg STK-MED ONCE .ROUTE ; Start at 10:47; Stop 04/29/17 at 10:48; Status DC Rocuronium Kirklin (Zemuron) 50 mg STK-MED ONCE .ROUTE ; Start 04/29/17 at 10:47 ; Stop 04/29/17 at 10:48; Status DC Phenylephrine HCl 1 mg STK-MED ONCE IV ; Start 04/29/17 at 11:52; Stop 04/29/17 at 11:53; Status DC Hydrocortisone Sodium Succinate (Solu-CORTEF) 100 mg STK-MED ONCE .ROUTE ; Start 04/29/17 at 12:04; Stop 04/29/17 at 12:05; Status DC Fentanyl Citrate (Fentanyl 2ml Vial) 100 mcg STK-MED ONCE .ROUTE ; Start at 12:21; Stop 04/29/17 at 12:22; Status DC Rocuronium Kirklin (Zemuron) 50 mg STK-MED ONCE .ROUTE ; Start 04/29/17 at 12:53 ; Stop 04/29/17 at 12:54; Status DC Labetalol HCl (Normodyne) 20 mg STK-MED ONCE .ROUTE ; Start 04/29/17 at 12:53; Stop 04/29/17 at 12:54; Status DC Fentanyl Citrate (Fentanyl 2ml Vial) 100 mcg STK-MED ONCE .ROUTE ; Start at 12:55; Stop 04/29/17 at 12:56; Status DC Esmolol HCl (Brevibloc) 100 mg STK-MED ONCE IV ; Start 04/29/17 at 12:59; Stop 04/29/17 at 13:00; Status DC Morphine Sulfate 10 mg STK-MED ONCE .ROUTE ; Start 04/29/17 at 13:03; Stop 04/29 at 13:04; Status DC Rocuronium Kirklin (Zemuron) 100 mg STK-MED ONCE .ROUTE ; Start 04/29/17 at 14: 10; Stop 04/29/17 at 14:11; Status DC Fentanyl Citrate (Fentanyl 2ml Vial) 100 mcg STK-MED ONCE .ROUTE ; Start at 15:08; Stop 04/29/17 at 15:09; Status DC Glycopyrrolate (Robinul) 1 mg STK-MED ONCE .ROUTE ; Start 04/29/17 at 15:29; Stop 04/29/17 at 15:30; Status DC Neostigmine Methylsulfate 5 mg STK-MED ONCE .ROUTE ; Start 04/29/17 at 15:29; Stop 04/29/17 at 15:30; Status DC Esmolol HCl (Brevibloc) 100 mg STK-MED ONCE IV ; Start 04/29/17 at 16:05; Stop 04/29/17 at 16:06; Status DC Diphenhydramine HCl (Benadryl) 25 mg PRN Q6HRS PRN IV ITCHING Last administered on 05/03/17 21:43; Start 04/29/17 at 16:30 Enoxaparin Sodium (Lovenox 40mg Syringe) 40 mg Q24H SQ Last administered on 06:33; Start 04/30/17 at 06:00 Sodium Chloride (Normal Saline Flush) 3 ml QSHIFT PRN IV AFTER MEDS AND BLOOD DRAWS; Start 04/29/17 at 16:30 Potassium Chloride/Sodium Chloride 1,000 ml @ 100 mls/hr Q10H IV Last administered on 05/01/17 00:17; Start 04/29/17 at 16:26; Stop 05/01/17 at 18:31 ; Status DC Hydromorphone HCl 30 ml @ 0 mls/hr CONT PRN PRN IV PROTOCOL Last administered on 04/30/17 18:01; Start 04/29/17 at 16:30; Stop 05/03/17 at 09:45; Status DC Ondansetron HCl (Zofran) 4 mg PRN Q6HRS PRN IV NAUESA, 1ST CHOICE; Start at 16:30; Stop 05/02/17 at 12:27; Status DC Throat Lozenges (Chloraseptic) 1 spray PRN Q2HR PRN PO SORE THROAT; Start 04/29 at 16:45 Throat Lozenges (Chloraseptic) 1 spray PRN Q2HR PRN PO SORE THROAT; Start 04/29 at 16:45; Stop 04/29/17 at 17:32; Status DC Digoxin (Lanoxin) 125 mcg DAILY PO Last administered on 05/01/17 09:32; Start 04/30/17 at 09:00; Stop 05/01/17 at 14:05; Status DC Prednisone (Prednisone) 10 mg DAILY PO ; Start 04/30/17 at 09:00; Stop 04/30/17 at 16:33; Status DC Methylprednisolone Sodium Succinate (SOLU-Medrol 40MG VIAL) 15 mg DAILY IV Last administered on 05/02/17 07:59; Start 04/30/17 at 11:00; Stop 05/02/17 at 14:00; Status DC Pantoprazole Sodium (Protonix Vial) 40 mg DAILYAC IVP Last administered on 05/02 07:57; Start 04/30/17 at 17:00; Stop 05/02/17 at 13:45; Status DC Digoxin (Lanoxin) 250 mcg DAILY PO Last administered on 05/04/17 08:11; Start 05/02/17 at 09:00 Sodium Chloride 1,000 ml @ 100 mls/hr Q10H IV Last administered on 05/04/17 03:25; Start 05/01/17 at 18:30 Nicotine (Nicoderm Cq 14mg) 1 patch PRN DAILY PRN TD SMOKING CESSATION Last administered on 05/04/17 11:15; Start 05/02/17 at 06:45 Ondansetron HCl (Zofran) 4 mg PRN Q6HRS PRN IV NAUSEA/VOMITING Last administered on 05/03/17 09:25; Start 05/02/17 at 12:30 Acetaminophen/ Hydrocodone Bitart (Lortab 5/325) 1 tab PRN Q4HRS PRN PO MILD PAIN Last administered on 05/04/17 03:24; Start 05/02/17 at 12:30 Fentanyl Citrate (Fentanyl 2ml Vial) 50 mcg PRN Q2HR PRN IV MODERATE PAIN Last administered on 05/03/17 21:43; Start 05/02/17 at 12:30 Famotidine (Pepcid) 20 mg DAILY IVP Last administered on 05/03/17 09:01; Start 05/03/17 at 09:00; Stop 05/03/17 at 09:45; Status DC Hydromorphone HCl (Dilaudid) 1 mg PRN Q4HRS PRN IV SEVERE PAIN Last administered on 05/04/17 11:13; Start 05/03/17 at 09:45 Morphine Sulfate (Ms Contin) 15 mg BID PO Last administered on 05/04/17 08:10 ; Start 05/03/17 at 09:45 Metoprolol Tartrate (Lopressor) 12.5 mg Q6HRS PO Last administered on 11:14; Start 05/03/17 at 19:00 Info 1 each PRN DAILY PRN MC SEE COMMENTS; Start 05/04/17 at 11:15 Active Scripts Active Reported Melatonin 3 Mg Tablet 1 Tab PO QHS Move Free Joint Health Tablet (Glucosam/Chond/Hyalu/Cf Borate) 1 Each Tablet 1 Each PO DAILY Digoxin 125 Mcg Tablet 1 Tab PO DAILY Prednisone 10 Mg Tablet 10 Mg PO DAILY Vitals/I & O Vital Sign - Last 24 Hours 05/03/17 05/03/17 05/03/17 05/03/17 13:38 15:00 17:39 18:45 Temp 95.7 95.7 Pulse 101 Resp 20 B/P (MAP) 106/73 (84) Pulse Ox 95 97 97 97 O2 Delivery Room Air Room Air Room Air O2 Flow Rate 2.0 2.0 2.0 05/03/17 05/03/17 05/03/17 05/03/17 18:45 18:45 19:00 19:55 Temp 97.9 97.9 Pulse 129 Resp 18 B/P (MAP) 104/55 (71) Pulse Ox 92 O2 Delivery Room Air Room Air O2 Flow Rate 2.0 2.0 05/03/17 05/03/17 05/03/17 05/03/17 20:03 20:04 20:04 21:43 Pulse 129 Resp 20 20 20 B/P (MAP) 104/55 Pulse Ox 92 92 92 O2 Delivery Room Air Room Air Room Air 05/03/17 05/03/17 05/03/17 05/03/17 22:13 23:00 23:46 23:46 Temp 97.5 97.5 Pulse 128 Resp 20 18 20 20 B/P (MAP) 132/77 (95) Pulse Ox 95 95 95 O2 Delivery Room Air Room Air Room Air Room Air 05/03/17 05/04/17 05/04/17 05/04/17 23:46 00:04 03:00 03:24 Pulse 128 Resp 20 20 B/P (MAP) 132/77 Pulse Ox 95 95 O2 Delivery Room Air Room Air 05/04/17 05/04/17 05/04/17 05/04/17 03:24 03:54 04:24 06:33 Pulse 128 Resp 20 20 20 B/P (MAP) 132/77 Pulse Ox 95 95 95 O2 Delivery Room Air Room Air 05/04/17 05/04/17 05/04/17 05/04/17 07:00 08:10 08:11 11:00 Temp 98.2 98.5 98.2 98.5 Pulse 108 108 109 Resp 20 22 B/P (MAP) 107/77 (87) 107/77 102/61 (75) Pulse Ox 96 96 O2 Delivery Room Air Room Air Room Air 05/04/17 05/04/17 05/04/17 05/04/17 11:13 11:14 12:01 12:01 Pulse 108 B/P (MAP) 107/77 O2 Delivery Room Air Room Air Room Air Intake and Output 05/03/17 05/03/17 05/04/17 14:59 22:59 06:59 Intake Total 369 ml Output Total 15 ml 125 ml Balance -15 ml 244 ml ИРИНА RODRIGUEZ MD May 04, 2017 12:28
[2017-05-04] MEDS: diphenhydrAMINE 50 MG/ML VIAL IV PRN ×2 (14:02→20:36)
[2017-05-04 15:00] VITALS: BP 92/48
[2017-05-04] MEDS ORDERED: AMINO AC 3%/ELECTROLYTE/GLYCER 1,000 ML IV SCH (15:30)
[2017-05-04] MEDS: IV NORMAL SALINE 1000ML BAG 1,000 ML IV SCH (15:45)
[2017-05-04] MEDS ORDERED: MAGNESIUM SULFATE 2GM 50 ML IV ONE (16:00)
[2017-05-04 16:16] LABS: BILIRUBIN,URINE MODERATE (NEG); GLUCOSE,URINE NEGATIVE (NEG); NITRITE,URINE NEGATIVE (NEG); PH,URINE 5.5; PROTEIN,URINE 30 mg/dL (NEG-TRACE); UROBILINOGEN,URINE 0.2 mg/dL (0.2 mg/dL)
[2017-05-04] MEDS: AMINO AC 3%/ELECTROLYTE/GLYCER 1,000 ML IV SCH (16:35)
[2017-05-04 16:40] LABS: RBC,URINE 0 /HPF (0-2)
[2017-05-04 16:41] LABS: BACTERIA,URINE 0 /HPF (0-FEW); SQUAMOUS EPITHELIAL CELL,UR OCC /LPF; WBC,URINE OCC /HPF (0-4)
[2017-05-04 19:21] VITALS: BP 84/52
[2017-05-04] MEDS: ONDANSETRON PF 4 MG/2 ML VIAL. IV PRN (20:37)
[2017-05-04 21:07] LABS: BASO % 0 % (0-3); EOS % 0 % (0-3); HEMATOCRIT 45.5 % (39.0-53.0); HEMOGLOBIN 15.2 g/dL (13.0-17.5); LYMPH # 1.1 x10^3/uL (1.0-4.8); LYMPH % 13 % (24-48); MEAN CORPUSCULAR HEMOGLOBIN 33 pg (25-35); MEAN CORPUSCULAR HGB CONC 33 g/dL (31-37); MEAN CORPUSCULAR VOLUME 100 fL (79-100); MONO % 6 % (0-9); NEUT % 81 % (31-73); PLATELET COUNT 242 x10^3/uL (140-400); RED BLOOD COUNT 4.56 x10^6/uL (4.30-5.70); WHITE BLOOD COUNT 8.6 x10^3/uL (4.0-11.0)
[2017-05-04 21:17] VITALS: BP 88/56
[2017-05-04 21:20] LABS: CALCIUM 9.6 mg/dL (8.5-10.1); CREATININE 1.8 mg/dL (0.7-1.3); GFR 37.4; POTASSIUM 4.2 mmol/L (3.5-5.1)
[2017-05-04] MEDS ORDERED: ALBUMIN HUMAN 5% 500 ML IV ONE (22:00)
[2017-05-04 22:14] VITALS: BP 83/61
[2017-05-05] VITALS (22 sets, daily range): BP systolic 62–160; BP diastolic 40–86
[2017-05-05] MEDS: ONDANSETRON PF 4 MG/2 ML VIAL. IV PRN ×2 (03:10→09:36)
[2017-05-05] MEDS: AMINO AC 3%/ELECTROLYTE/GLYCER 1,000 ML IV SCH ×2 (05:32→16:52)
[2017-05-05] MEDS: ENOXAPARIN 40 MG/0.4 ML SYRINGE. SQ SCH (05:36)
--- NOTE | 2017-05-05 07:07 | RAD ---
Indication: PICC line placement. Correlation is made with prior exam from 01/26/2017. A right upper extremity PICC line has the tip overlying the SVC. No pneumothorax is identified. The lungs are clear. There is no effusion. Impression: Satisfactory PICC line placement.
[2017-05-05] MEDS ORDERED: PHENOL ORAL SPRAY 177ML BOTTLE. PO PRN (08:30)
[2017-05-05] MEDS ORDERED: LIDOCAINE 2% JELLY 6ML IN APPLICATOR. MM ONE (08:30)
--- NOTE | 2017-05-05 08:49 | RAD ---
Indication: Status post colon resection. Time of exam 0824 hours. Correlation is made with prior study from 04/29/2017. Midline skin soraya are again noted. A surgical drain overlies the mid abdomen. The NG tube has been removed. The bowel gas pattern is nonobstructive. No unexpected radiopaque foreign objects are detected. Impression: Postop changes. No complicating feature is detected.
[2017-05-05 09:00] LABS: CREATININE 1.3 mg/dL (0.7-1.3); GFR 54.4; POTASSIUM 3.7 mmol/L (3.5-5.1)
[2017-05-05] MEDS: MORPHINE ER 15 MG TABLET.ER PO SCH ×2 (09:00→21:00)
[2017-05-05] MEDS: METOPROLOL TART IMMED RELEASE 25 MG TABLET. PO SCH ×2 (09:00→21:00)
[2017-05-05 09:15] LABS: BASO % 0 % (0-3); EOS % 0 % (0-3); HEMATOCRIT 37.1 % (39.0-53.0); HEMOGLOBIN 12.8 g/dL (13.0-17.5); LYMPH # 0.7 x10^3/uL (1.0-4.8); LYMPH % 10 % (24-48); MEAN CORPUSCULAR HEMOGLOBIN 34 pg (25-35); MEAN CORPUSCULAR HGB CONC 35 g/dL (31-37); MEAN CORPUSCULAR VOLUME 98 fL (79-100); MONO % 5 % (0-9); NEUT % 85 % (31-73); PLATELET COUNT 205 x10^3/uL (140-400); RED BLOOD COUNT 3.81 x10^6/uL (4.30-5.70); RED CELL DISTRIBUTION WIDTH 16.2 % (11.5-14.5)
[2017-05-05] MEDS: DIGOXIN 250 MCG TABLET. PO SCH (09:29)
[2017-05-05] MEDS: IV NORMAL SALINE 1000ML BAG 1,000 ML IV SCH ×2 (09:32→16:32)
[2017-05-05] MEDS ORDERED: BENZOCAINE ONE 20% MUCOSAL SPRAY. MM (10:30)
[2017-05-05 10:40] LABS: PHOSPHORUS 2.5 mg/dL (2.6-4.7)
[2017-05-05] MEDS ORDERED: BENZOCAINE/MENTHOL LOZENGE. PO PRN (11:00)
--- NOTE | 2017-05-05 11:06 | PDOC ---
SURGICAL PROGRESS NOTE Subjective POD 6 has had n/v overnoc passing loose stools Vital Signs Vital Signs Date Time Temp Pulse Resp B/P (MAP) Pulse Ox O2 Delivery O2 Flow Rate FiO2 05/05/17 09:29 137 92/52 05/05/17 07:45 98.0 22 94 Room Air 98.0 I&O Intake and Output 05/05/17 06:59 Intake Total 2257 ml Output Total 1020 ml Balance 1237 ml Intake Oral 90 ml IV Total 2167 ml Output Urine Total 50 ml Emesis 870 ml Drainage Total 100 ml # Voids 3 # Bowel Movements 2 PATIENT HAS A YANCEY: No General: Alert, Oriented X3, Cooperative, No acute distress Abdomen: Other (mildly distended, incision c/d) Labs Laboratory Tests Test 05/04/17 11:35 05/04/17 15:00 05/04/17 21:00 05/05/17 08:40 Sodium Level 134 mmol/L (136-145) 130 mmol/L (136-145) 131 mmol/L (136-145) Potassium Level 4.4 mmol/L (3.5-5.1) 4.2 mmol/L (3.5-5.1) 3.7 mmol/L (3.5-5.1) Chloride Level 97 mmol/L (98-107) 95 mmol/L (98-107) 97 mmol/L (98-107) Carbon Dioxide Level 26 mmol/L (21-32) 25 mmol/L (21-32) 26 mmol/L (21-32) Anion Gap 11 (6-14) 10 (6-14) 8 (6-14) Blood Urea Nitrogen 22 mg/dL (8-26) 30 mg/dL (8-26) 33 mg/dL (8-26) Creatinine 1.3 mg/dL (0.7-1.3) 1.8 mg/dL (0.7-1.3) 1.3 mg/dL (0.7-1.3) Estimated GFR (Cockcroft-Gault) 54.4 37.4 54.4 Glucose Level 118 mg/dL (70-99) 119 mg/dL (70-99) 107 mg/dL (70-99) Calcium Level 9.4 mg/dL (8.5-10.1) 9.6 mg/dL (8.5-10.1) 9.0 mg/dL (8.5-10.1) Phosphorus Level 4.1 mg/dL (2.6-4.7) 2.5 mg/dL (2.6-4.7) Magnesium Level 1.6 mg/dL (1.8-2.4) 2.0 mg/dL (1.8-2.4) Urine Color Marcia Urine Clarity Turbid Urine pH 5.5 Urine Specific [place] 1.025 Urine Protein 30 mg/dL (NEG-TRACE) Urine Glucose (UA) Negative mg/dL (NEG) Urine Ketones (Stick) 15 mg/dL (NEG) Urine Blood Negative (NEG) Urine Nitrite Negative (NEG) Urine Bilirubin Moderate (NEG) Urine Urobilinogen Dipstick 0.2 mg/dL (0.2 mg/dL) Urine Leukocyte Esterase Negative (NEG) Urine RBC 0 /HPF (0-2) Urine WBC Occ /HPF (0-4) Urine Squamous Epithelial Cells Occ /LPF Urine Bacteria 0 /HPF (0-FEW) Urine Hyaline Casts Occasional /HPF Urine Mucus Slight /LPF White Blood Count 8.6 x10^3/uL (4.0-11.0) 7.0 x10^3/uL (4.0-11.0) Red Blood Count 4.56 x10^6/uL (4.30-5.70) 3.81 x10^6/uL (4.30-5.70) Hemoglobin 15.2 g/dL (13.0-17.5) 12.8 g/dL (13.0-17.5) Hematocrit 45.5 % (39.0-53.0) 37.1 % (39.0-53.0) Mean Corpuscular Volume 100 fL (79-100) 98 fL (79-100) Mean Corpuscular Hemoglobin 33 pg (25-35) 34 pg (25-35) Mean Corpuscular Hemoglobin Concent 33 g/dL (31-37) 35 g/dL (31-37) Red Cell Distribution Width 16.0 % (11.5-14.5) 16.2 % (11.5-14.5) Platelet Count 242 x10^3/uL (140-400) 205 x10^3/uL (140-400) Neutrophils (%) (Auto) 81 % (31-73) 85 % (31-73) Lymphocytes (%) (Auto) 13 % (24-48) 10 % (24-48) Monocytes (%) (Auto) 6 % (0-9) 5 % (0-9) Eosinophils (%) (Auto) 0 % (0-3) 0 % (0-3) Basophils (%) (Auto) 0 % (0-3) 0 % (0-3) Neutrophils # (Auto) 7.0 x10^3uL (1.8-7.7) 6.0 x10^3uL (1.8-7.7) Lymphocytes # (Auto) 1.1 x10^3/uL (1.0-4.8) 0.7 x10^3/uL (1.0-4.8) Monocytes # (Auto) 0.5 x10^3/uL (0.0-1.1) 0.3 x10^3/uL (0.0-1.1) Eosinophils # (Auto) 0.0 x10^3/uL (0.0-0.7) 0.0 x10^3/uL (0.0-0.7) Basophils # (Auto) 0.0 x10^3/uL (0.0-0.2) 0.0 x10^3/uL (0.0-0.2) Albumin 2.6 g/dL (3.4-5.0) Laboratory Tests Test 05/04/17 11:35 05/04/17 15:00 05/04/17 21:00 05/05/17 08:40 Sodium Level 134 mmol/L (136-145) 130 mmol/L (136-145) 131 mmol/L (136-145) Potassium Level 4.4 mmol/L (3.5-5.1) 4.2 mmol/L (3.5-5.1) 3.7 mmol/L (3.5-5.1) Chloride Level 97 mmol/L (98-107) 95 mmol/L (98-107) 97 mmol/L (98-107) Carbon Dioxide Level 26 mmol/L (21-32) 25 mmol/L (21-32) 26 mmol/L (21-32) Anion Gap 11 (6-14) 10 (6-14) 8 (6-14) Blood Urea Nitrogen 22 mg/dL (8-26) 30 mg/dL (8-26) 33 mg/dL (8-26) Creatinine 1.3 mg/dL (0.7-1.3) 1.8 mg/dL (0.7-1.3) 1.3 mg/dL (0.7-1.3) Estimated GFR (Cockcroft-Gault) 54.4 37.4 54.4 Glucose Level 118 mg/dL (70-99) 119 mg/dL (70-99) 107 mg/dL (70-99) Calcium Level 9.4 mg/dL (8.5-10.1) 9.6 mg/dL (8.5-10.1) 9.0 mg/dL (8.5-10.1) Phosphorus Level 4.1 mg/dL (2.6-4.7) 2.5 mg/dL (2.6-4.7) Magnesium Level 1.6 mg/dL (1.8-2.4) 2.0 mg/dL (1.8-2.4) Urine Color Marcia Urine Clarity Turbid Urine pH 5.5 Urine Specific [place] 1.025 Urine Protein 30 mg/dL (NEG-TRACE) Urine Glucose (UA) Negative mg/dL (NEG) Urine Ketones (Stick) 15 mg/dL (NEG) Urine Blood Negative (NEG) Urine Nitrite Negative (NEG) Urine Bilirubin Moderate (NEG) Urine Urobilinogen Dipstick 0.2 mg/dL (0.2 mg/dL) Urine Leukocyte Esterase Negative (NEG) Urine RBC 0 /HPF (0-2) Urine WBC Occ /HPF (0-4) Urine Squamous Epithelial Cells Occ /LPF Urine Bacteria 0 /HPF (0-FEW) Urine Hyaline Casts Occasional /HPF Urine Mucus Slight /LPF White Blood Count 8.6 x10^3/uL (4.0-11.0) 7.0 x10^3/uL (4.0-11.0) Red Blood Count 4.56 x10^6/uL (4.30-5.70) 3.81 x10^6/uL (4.30-5.70) Hemoglobin 15.2 g/dL (13.0-17.5) 12.8 g/dL (13.0-17.5) Hematocrit 45.5 % (39.0-53.0) 37.1 % (39.0-53.0) Mean Corpuscular Volume 100 fL (79-100) 98 fL (79-100) Mean Corpuscular Hemoglobin 33 pg (25-35) 34 pg (25-35) Mean Corpuscular Hemoglobin Concent 33 g/dL (31-37) 35 g/dL (31-37) Red Cell Distribution Width 16.0 % (11.5-14.5) 16.2 % (11.5-14.5) Platelet Count 242 x10^3/uL (140-400) 205 x10^3/uL (140-400) Neutrophils (%) (Auto) 81 % (31-73) 85 % (31-73) Lymphocytes (%) (Auto) 13 % (24-48) 10 % (24-48) Monocytes (%) (Auto) 6 % (0-9) 5 % (0-9) Eosinophils (%) (Auto) 0 % (0-3) 0 % (0-3) Basophils (%) (Auto) 0 % (0-3) 0 % (0-3) Neutrophils # (Auto) 7.0 x10^3uL (1.8-7.7) 6.0 x10^3uL (1.8-7.7) Lymphocytes # (Auto) 1.1 x10^3/uL (1.0-4.8) 0.7 x10^3/uL (1.0-4.8) Monocytes # (Auto) 0.5 x10^3/uL (0.0-1.1) 0.3 x10^3/uL (0.0-1.1) Eosinophils # (Auto) 0.0 x10^3/uL (0.0-0.7) 0.0 x10^3/uL (0.0-0.7) Basophils # (Auto) 0.0 x10^3/uL (0.0-0.2) 0.0 x10^3/uL (0.0-0.2) Albumin 2.6 g/dL (3.4-5.0) I have reviewed the following supine and upright abdominal films reviewed Assessment/Plan expected post op ileus resultant n/v NG place to LIS with immediate return of 600cc bilious liquid start TPN Problems: RON GROSS MD May 05, 2017 11:06
[2017-05-05] MEDS ORDERED: ALBUMIN HUMAN 5% 500 ML IV ONE (11:15)
[2017-05-05] MEDS ORDERED: IV NORMAL SALINE 1000ML BAG 1,000 ML IV ONE ×2 (11:30→16:00)
--- NOTE | 2017-05-05 11:34 | PDOC ---
PROGRESS NOTES Chief Complaint Chief Complaint 1. s/p R part colectomy: with 2 indwelling LASHAUN drains POD # 7 2. POst op abd pain off [employer] dilaudid - 05/04 3. A FIB RVR with HYPOTENSION 4. Hx chronic atrial fib 5. Crohn's dz wa son low dose steroid 6. Leukocytosis: reactive, better History of Present Illness History of Present Illness Transferred to [facility] bec of atrial fib RVR Seen now in [facility], HYPOTENSIVE SBP 70s, HR 130s at rest In abd pain, cant give fentanyl bec of low BP EF 50-55% with diastolic dysfcn NGT back today, lots of output PLAN: NS 1 L bolus now wide open, then NS maintainance Start amio gtt - dw CArds and RN Dig levels were 0.6 2 days ago Needs better rate control and control of pain - (once BP allows) CC 31 mins Vitals Vitals Vital Signs Date Time Temp Pulse Resp B/P (MAP) Pulse Ox O2 Delivery O2 Flow Rate FiO2 05/05/17 09:29 137 92/52 05/05/17 08:00 Room Air 05/05/17 07:45 98.0 22 94 98.0 Physical Exam General: Alert, Oriented X3, Cooperative, No acute distress Heart: Other (IRR: tele AFIB RVR ) Lungs: Clear Abdomen: Soft, Other (tender to mild palp) Extremities: No clubbing, No edema, Normal pulses Skin: No rashes, No significant lesion Labs LABS Laboratory Tests Test 05/04/17 11:35 05/04/17 15:00 05/04/17 21:00 05/05/17 08:40 Sodium Level 134 mmol/L (136-145) 130 mmol/L (136-145) 131 mmol/L (136-145) Potassium Level 4.4 mmol/L (3.5-5.1) 4.2 mmol/L (3.5-5.1) 3.7 mmol/L (3.5-5.1) Chloride Level 97 mmol/L (98-107) 95 mmol/L (98-107) 97 mmol/L (98-107) Carbon Dioxide Level 26 mmol/L (21-32) 25 mmol/L (21-32) 26 mmol/L (21-32) Anion Gap 11 (6-14) 10 (6-14) 8 (6-14) Blood Urea Nitrogen 22 mg/dL (8-26) 30 mg/dL (8-26) 33 mg/dL (8-26) Creatinine 1.3 mg/dL (0.7-1.3) 1.8 mg/dL (0.7-1.3) 1.3 mg/dL (0.7-1.3) Estimated GFR (Cockcroft-Gault) 54.4 37.4 54.4 Glucose Level 118 mg/dL (70-99) 119 mg/dL (70-99) 107 mg/dL (70-99) Calcium Level 9.4 mg/dL (8.5-10.1) 9.6 mg/dL (8.5-10.1) 9.0 mg/dL (8.5-10.1) Phosphorus Level 4.1 mg/dL (2.6-4.7) 2.5 mg/dL (2.6-4.7) Magnesium Level 1.6 mg/dL (1.8-2.4) 2.0 mg/dL (1.8-2.4) Urine Color Marcia Urine Clarity Turbid Urine pH 5.5 Urine Specific [place] 1.025 Urine Protein 30 mg/dL (NEG-TRACE) Urine Glucose (UA) Negative mg/dL (NEG) Urine Ketones (Stick) 15 mg/dL (NEG) Urine Blood Negative (NEG) Urine Nitrite Negative (NEG) Urine Bilirubin Moderate (NEG) Urine Urobilinogen Dipstick 0.2 mg/dL (0.2 mg/dL) Urine Leukocyte Esterase Negative (NEG) Urine RBC 0 /HPF (0-2) Urine WBC Occ /HPF (0-4) Urine Squamous Epithelial Cells Occ /LPF Urine Bacteria 0 /HPF (0-FEW) Urine Hyaline Casts Occasional /HPF Urine Mucus Slight /LPF White Blood Count 8.6 x10^3/uL (4.0-11.0) 7.0 x10^3/uL (4.0-11.0) Red Blood Count 4.56 x10^6/uL (4.30-5.70) 3.81 x10^6/uL (4.30-5.70) Hemoglobin 15.2 g/dL (13.0-17.5) 12.8 g/dL (13.0-17.5) Hematocrit 45.5 % (39.0-53.0) 37.1 % (39.0-53.0) Mean Corpuscular Volume 100 fL (79-100) 98 fL (79-100) Mean Corpuscular Hemoglobin 33 pg (25-35) 34 pg (25-35) Mean Corpuscular Hemoglobin Concent 33 g/dL (31-37) 35 g/dL (31-37) Red Cell Distribution Width 16.0 % (11.5-14.5) 16.2 % (11.5-14.5) Platelet Count 242 x10^3/uL (140-400) 205 x10^3/uL (140-400) Neutrophils (%) (Auto) 81 % (31-73) 85 % (31-73) Lymphocytes (%) (Auto) 13 % (24-48) 10 % (24-48) Monocytes (%) (Auto) 6 % (0-9) 5 % (0-9) Eosinophils (%) (Auto) 0 % (0-3) 0 % (0-3) Basophils (%) (Auto) 0 % (0-3) 0 % (0-3) Neutrophils # (Auto) 7.0 x10^3uL (1.8-7.7) 6.0 x10^3uL (1.8-7.7) Lymphocytes # (Auto) 1.1 x10^3/uL (1.0-4.8) 0.7 x10^3/uL (1.0-4.8) Monocytes # (Auto) 0.5 x10^3/uL (0.0-1.1) 0.3 x10^3/uL (0.0-1.1) Eosinophils # (Auto) 0.0 x10^3/uL (0.0-0.7) 0.0 x10^3/uL (0.0-0.7) Basophils # (Auto) 0.0 x10^3/uL (0.0-0.2) 0.0 x10^3/uL (0.0-0.2) Albumin 2.6 g/dL (3.4-5.0) Review of Systems Review of Systems abd pain, no dizziness or lightheadedness, no cp, NO more soa, lots of nGT output Comment Review of Relevant I have reviewed the following items manuel (where applicable) has been applied. Labs Laboratory Tests Test 05/04/17 11:35 05/04/17 15:00 05/04/17 21:00 05/05/17 08:40 Sodium Level 134 mmol/L (136-145) 130 mmol/L (136-145) 131 mmol/L (136-145) Potassium Level 4.4 mmol/L (3.5-5.1) 4.2 mmol/L (3.5-5.1) 3.7 mmol/L (3.5-5.1) Chloride Level 97 mmol/L (98-107) 95 mmol/L (98-107) 97 mmol/L (98-107) Carbon Dioxide Level 26 mmol/L (21-32) 25 mmol/L (21-32) 26 mmol/L (21-32) Anion Gap 11 (6-14) 10 (6-14) 8 (6-14) Blood Urea Nitrogen 22 mg/dL (8-26) 30 mg/dL (8-26) 33 mg/dL (8-26) Creatinine 1.3 mg/dL (0.7-1.3) 1.8 mg/dL (0.7-1.3) 1.3 mg/dL (0.7-1.3) Estimated GFR (Cockcroft-Gault) 54.4 37.4 54.4 Glucose Level 118 mg/dL (70-99) 119 mg/dL (70-99) 107 mg/dL (70-99) Calcium Level 9.4 mg/dL (8.5-10.1) 9.6 mg/dL (8.5-10.1) 9.0 mg/dL (8.5-10.1) Phosphorus Level 4.1 mg/dL (2.6-4.7) 2.5 mg/dL (2.6-4.7) Magnesium Level 1.6 mg/dL (1.8-2.4) 2.0 mg/dL (1.8-2.4) Urine Color Marcia Urine Clarity Turbid Urine pH 5.5 Urine Specific [place] 1.025 Urine Protein 30 mg/dL (NEG-TRACE) Urine Glucose (UA) Negative mg/dL (NEG) Urine Ketones (Stick) 15 mg/dL (NEG) Urine Blood Negative (NEG) Urine Nitrite Negative (NEG) Urine Bilirubin Moderate (NEG) Urine Urobilinogen Dipstick 0.2 mg/dL (0.2 mg/dL) Urine Leukocyte Esterase Negative (NEG) Urine RBC 0 /HPF (0-2) Urine WBC Occ /HPF (0-4) Urine Squamous Epithelial Cells Occ /LPF Urine Bacteria 0 /HPF (0-FEW) Urine Hyaline Casts Occasional /HPF Urine Mucus Slight /LPF White Blood Count 8.6 x10^3/uL (4.0-11.0) 7.0 x10^3/uL (4.0-11.0) Red Blood Count 4.56 x10^6/uL (4.30-5.70) 3.81 x10^6/uL (4.30-5.70) Hemoglobin 15.2 g/dL (13.0-17.5) 12.8 g/dL (13.0-17.5) Hematocrit 45.5 % (39.0-53.0) 37.1 % (39.0-53.0) Mean Corpuscular Volume 100 fL (79-100) 98 fL (79-100) Mean Corpuscular Hemoglobin 33 pg (25-35) 34 pg (25-35) Mean Corpuscular Hemoglobin Concent 33 g/dL (31-37) 35 g/dL (31-37) Red Cell Distribution Width 16.0 % (11.5-14.5) 16.2 % (11.5-14.5) Platelet Count 242 x10^3/uL (140-400) 205 x10^3/uL (140-400) Neutrophils (%) (Auto) 81 % (31-73) 85 % (31-73) Lymphocytes (%) (Auto) 13 % (24-48) 10 % (24-48) Monocytes (%) (Auto) 6 % (0-9) 5 % (0-9) Eosinophils (%) (Auto) 0 % (0-3) 0 % (0-3) Basophils (%) (Auto) 0 % (0-3) 0 % (0-3) Neutrophils # (Auto) 7.0 x10^3uL (1.8-7.7) 6.0 x10^3uL (1.8-7.7) Lymphocytes # (Auto) 1.1 x10^3/uL (1.0-4.8) 0.7 x10^3/uL (1.0-4.8) Monocytes # (Auto) 0.5 x10^3/uL (0.0-1.1) 0.3 x10^3/uL (0.0-1.1) Eosinophils # (Auto) 0.0 x10^3/uL (0.0-0.7) 0.0 x10^3/uL (0.0-0.7) Basophils # (Auto) 0.0 x10^3/uL (0.0-0.2) 0.0 x10^3/uL (0.0-0.2) Albumin 2.6 g/dL (3.4-5.0) Laboratory Tests Test 05/04/17 11:35 05/04/17 15:00 05/04/17 21:00 05/05/17 08:40 Sodium Level 134 mmol/L (136-145) 130 mmol/L (136-145) 131 mmol/L (136-145) Potassium Level 4.4 mmol/L (3.5-5.1) 4.2 mmol/L (3.5-5.1) 3.7 mmol/L (3.5-5.1) Chloride Level 97 mmol/L (98-107) 95 mmol/L (98-107) 97 mmol/L (98-107) Carbon Dioxide Level 26 mmol/L (21-32) 25 mmol/L (21-32) 26 mmol/L (21-32) Anion Gap 11 (6-14) 10 (6-14) 8 (6-14) Blood Urea Nitrogen 22 mg/dL (8-26) 30 mg/dL (8-26) 33 mg/dL (8-26) Creatinine 1.3 mg/dL (0.7-1.3) 1.8 mg/dL (0.7-1.3) 1.3 mg/dL (0.7-1.3) Estimated GFR (Cockcroft-Gault) 54.4 37.4 54.4 Glucose Level 118 mg/dL (70-99) 119 mg/dL (70-99) 107 mg/dL (70-99) Calcium Level 9.4 mg/dL (8.5-10.1) 9.6 mg/dL (8.5-10.1) 9.0 mg/dL (8.5-10.1) Phosphorus Level 4.1 mg/dL (2.6-4.7) 2.5 mg/dL (2.6-4.7) Magnesium Level 1.6 mg/dL (1.8-2.4) 2.0 mg/dL (1.8-2.4) Urine Color Marcia Urine Clarity Turbid Urine pH 5.5 Urine Specific [place] 1.025 Urine Protein 30 mg/dL (NEG-TRACE) Urine Glucose (UA) Negative mg/dL (NEG) Urine Ketones (Stick) 15 mg/dL (NEG) Urine Blood Negative (NEG) Urine Nitrite Negative (NEG) Urine Bilirubin Moderate (NEG) Urine Urobilinogen Dipstick 0.2 mg/dL (0.2 mg/dL) Urine Leukocyte Esterase Negative (NEG) Urine RBC 0 /HPF (0-2) Urine WBC Occ /HPF (0-4) Urine Squamous Epithelial Cells Occ /LPF Urine Bacteria 0 /HPF (0-FEW) Urine Hyaline Casts Occasional /HPF Urine Mucus Slight /LPF White Blood Count 8.6 x10^3/uL (4.0-11.0) 7.0 x10^3/uL (4.0-11.0) Red Blood Count 4.56 x10^6/uL (4.30-5.70) 3.81 x10^6/uL (4.30-5.70) Hemoglobin 15.2 g/dL (13.0-17.5) 12.8 g/dL (13.0-17.5) Hematocrit 45.5 % (39.0-53.0) 37.1 % (39.0-53.0) Mean Corpuscular Volume 100 fL (79-100) 98 fL (79-100) Mean Corpuscular Hemoglobin 33 pg (25-35) 34 pg (25-35) Mean Corpuscular Hemoglobin Concent 33 g/dL (31-37) 35 g/dL (31-37) Red Cell Distribution Width 16.0 % (11.5-14.5) 16.2 % (11.5-14.5) Platelet Count 242 x10^3/uL (140-400) 205 x10^3/uL (140-400) Neutrophils (%) (Auto) 81 % (31-73) 85 % (31-73) Lymphocytes (%) (Auto) 13 % (24-48) 10 % (24-48) Monocytes (%) (Auto) 6 % (0-9) 5 % (0-9) Eosinophils (%) (Auto) 0 % (0-3) 0 % (0-3) Basophils (%) (Auto) 0 % (0-3) 0 % (0-3) Neutrophils # (Auto) 7.0 x10^3uL (1.8-7.7) 6.0 x10^3uL (1.8-7.7) Lymphocytes # (Auto) 1.1 x10^3/uL (1.0-4.8) 0.7 x10^3/uL (1.0-4.8) Monocytes # (Auto) 0.5 x10^3/uL (0.0-1.1) 0.3 x10^3/uL (0.0-1.1) Eosinophils # (Auto) 0.0 x10^3/uL (0.0-0.7) 0.0 x10^3/uL (0.0-0.7) Basophils # (Auto) 0.0 x10^3/uL (0.0-0.2) 0.0 x10^3/uL (0.0-0.2) Albumin 2.6 g/dL (3.4-5.0) Medications Current Medications Ondansetron HCl (Zofran) 4 mg PRN Q6HRS PRN IV NAUSEA/VOMITING; Start 04/29/17 at 07:00; Stop 04/29/17 at 17:32; Status DC Fentanyl Citrate (Fentanyl 2ml Vial) 25 mcg PRN Q5MIN PRN IV MILD PAIN; Start 04/29/17 at 07:00; Stop 04/30/17 at 06:59; Status DC Fentanyl Citrate (Fentanyl 2ml Vial) 50 mcg PRN Q5MIN PRN IV MODERATE PAIN Last administered on 04/29/17t 16:59; Start 04/29/17 at 07:00; Stop 04/30/17 at 06:59; Status DC Morphine Sulfate 1 mg PRN Q10MIN PRN IV SEVERE PAIN Last administered on 16:41; Start 04/29/17 at 07:00; Stop 04/30/17 at 06:59; Status DC Ringer's Solution 1,000 ml @ 30 mls/hr Q24H IV Last administered on 04/29/17 10:42; Start 04/29/17 at 07:00; Stop 04/29/17 at 18:59; Status DC Lidocaine HCl 2 ml PRN 1X PRN ID PRIOR TO IV START; Start 04/29/17 at 07:00; Stop 04/30/17 at 06:59; Status DC Hydromorphone HCl (Dilaudid) 0.5 mg PRN Q10MIN PRN IV SEV PAIN, Second choice; Start 04/29/17 at 07:00; Stop 04/30/17 at 06:59; Status DC Prochlorperazine Edisylate (Compazine) 5 mg PACU PRN PRN IV NAUSEA, MRX1; Start 04/29/17 at 07:00; Stop 04/30/17 at 06:59; Status DC Cefoxitin Sodium 1 gm/Sodium Chloride 50 ml @ 100 mls/hr 1X ONCE IV Last administered on 04/29/17 12:00; Start 04/29/17 at 06:00; Stop 04/29/17 at 06:29 ; Status DC Dexamethasone Sodium Phosphate (Decadron) 20 mg STK-MED ONCE .ROUTE ; Start at 10:47; Stop 04/29/17 at 10:48; Status DC Ondansetron HCl (Zofran) 4 mg STK-MED ONCE .ROUTE ; Start 04/29/17 at 10:47; Stop 04/29/17 at 10:48; Status DC Propofol 20 ml @ As Directed STK-MED ONCE IV ; Start 04/29/17 at 10:47; Stop at 10:48; Status DC Lidocaine HCl (Lidocaine Pf 2% Vial) 5 ml STK-MED ONCE .ROUTE ; Start 04/29/17 at 10:47; Stop 04/29/17 at 10:48; Status DC Desflurane (Suprane) 60 ml STK-MED ONCE IH ; Start 04/29/17 at 10:47; Stop 04/29 at 10:48; Status DC Fentanyl Citrate (Fentanyl 2ml Vial) 100 mcg STK-MED ONCE .ROUTE ; Start at 10:47; Stop 04/29/17 at 10:48; Status DC Rocuronium [place] (Zemuron) 50 mg STK-MED ONCE .ROUTE ; Start 04/29/17 at 10:47 ; Stop 04/29/17 at 10:48; Status DC Phenylephrine HCl 1 mg STK-MED ONCE IV ; Start 04/29/17 at 11:52; Stop 04/29/17 at 11:53; Status DC Hydrocortisone Sodium Succinate (Solu-CORTEF) 100 mg STK-MED ONCE .ROUTE ; Start 04/29/17 at 12:04; Stop 04/29/17 at 12:05; Status DC Fentanyl Citrate (Fentanyl 2ml Vial) 100 mcg STK-MED ONCE .ROUTE ; Start at 12:21; Stop 04/29/17 at 12:22; Status DC Rocuronium [place] (Zemuron) 50 mg STK-MED ONCE .ROUTE ; Start 04/29/17 at 12:53 ; Stop 04/29/17 at 12:54; Status DC Labetalol HCl (Normodyne) 20 mg STK-MED ONCE .ROUTE ; Start 04/29/17 at 12:53; Stop 04/29/17 at 12:54; Status DC Fentanyl Citrate (Fentanyl 2ml Vial) 100 mcg STK-MED ONCE .ROUTE ; Start at 12:55; Stop 04/29/17 at 12:56; Status DC Esmolol HCl (Brevibloc) 100 mg STK-MED ONCE IV ; Start 04/29/17 at 12:59; Stop 04/29/17 at 13:00; Status DC Morphine Sulfate 10 mg STK-MED ONCE .ROUTE ; Start 04/29/17 at 13:03; Stop 04/29 at 13:04; Status DC Rocuronium [place] (Zemuron) 100 mg STK-MED ONCE .ROUTE ; Start 04/29/17 at 14: 10; Stop 04/29/17 at 14:11; Status DC Fentanyl Citrate (Fentanyl 2ml Vial) 100 mcg STK-MED ONCE .ROUTE ; Start at 15:08; Stop 04/29/17 at 15:09; Status DC Glycopyrrolate (Robinul) 1 mg STK-MED ONCE .ROUTE ; Start 04/29/17 at 15:29; Stop 04/29/17 at 15:30; Status DC Neostigmine Methylsulfate 5 mg STK-MED ONCE .ROUTE ; Start 04/29/17 at 15:29; Stop 04/29/17 at 15:30; Status DC Esmolol HCl (Brevibloc) 100 mg STK-MED ONCE IV ; Start 04/29/17 at 16:05; Stop 04/29/17 at 16:06; Status DC Diphenhydramine HCl (Benadryl) 25 mg PRN Q6HRS PRN IV ITCHING Last administered on 05/04/17 20:36; Start 04/29/17 at 16:30 Enoxaparin Sodium (Lovenox 40mg Syringe) 40 mg Q24H SQ Last administered on 05:36; Start 04/30/17 at 06:00 Sodium Chloride (Normal Saline Flush) 3 ml QSHIFT PRN IV AFTER MEDS AND BLOOD DRAWS; Start 04/29/17 at 16:30 Potassium Chloride/Sodium Chloride 1,000 ml @ 100 mls/hr Q10H IV Last administered on 05/01/17 00:17; Start 04/29/17 at 16:26; Stop 05/01/17 at 18:31 ; Status DC Hydromorphone HCl 30 ml @ 0 mls/hr CONT PRN PRN IV PROTOCOL Last administered on 04/30/17 18:01; Start 04/29/17 at 16:30; Stop 05/03/17 at 09:45; Status DC Ondansetron HCl (Zofran) 4 mg PRN Q6HRS PRN IV NAUESA, 1ST CHOICE; Start at 16:30; Stop 05/02/17 at 12:27; Status DC Throat Lozenges (Chloraseptic) 1 spray PRN Q2HR PRN PO SORE THROAT; Start 04/29 at 16:45 Throat Lozenges (Chloraseptic) 1 spray PRN Q2HR PRN PO SORE THROAT; Start 04/29 at 16:45; Stop 04/29/17 at 17:32; Status DC Digoxin (Lanoxin) 125 mcg DAILY PO Last administered on 05/01/17 09:32; Start 04/30/17 at 09:00; Stop 05/01/17 at 14:05; Status DC Prednisone (Prednisone) 10 mg DAILY PO ; Start 04/30/17 at 09:00; Stop 04/30/17 at 16:33; Status DC Methylprednisolone Sodium Succinate (SOLU-Medrol 40MG VIAL) 15 mg DAILY IV Last administered on 05/02/17 07:59; Start 04/30/17 at 11:00; Stop 05/02/17 at 14:00; Status DC Pantoprazole Sodium (Protonix Vial) 40 mg DAILYAC IVP Last administered on 05/02 07:57; Start 04/30/17 at 17:00; Stop 05/02/17 at 13:45; Status DC Digoxin (Lanoxin) 250 mcg DAILY PO Last administered on 05/05/17 09:29; Start 05/02/17 at 09:00 Sodium Chloride 1,000 ml @ 100 mls/hr Q10H IV Last administered on 05/04/17 03:25; Start 05/01/17 at 18:30; Stop 05/04/17 at 15:20; Status DC Nicotine (Nicoderm Cq 14mg) 1 patch PRN DAILY PRN TD SMOKING CESSATION Last administered on 05/04/17 11:15; Start 05/02/17 at 06:45 Ondansetron HCl (Zofran) 4 mg PRN Q6HRS PRN IV NAUSEA/VOMITING Last administered on 05/05/17 09:36; Start 05/02/17 at 12:30 Acetaminophen/ Hydrocodone Bitart (Lortab 5/325) 1 tab PRN Q4HRS PRN PO MILD PAIN Last administered on 05/04/17 17:13; Start 05/02/17 at 12:30 Fentanyl Citrate (Fentanyl 2ml Vial) 50 mcg PRN Q2HR PRN IV MODERATE PAIN Last administered on 05/03/17 21:43; Start 05/02/17 at 12:30 Famotidine (Pepcid) 20 mg DAILY IVP Last administered on 05/03/17 09:01; Start 05/03/17 at 09:00; Stop 05/03/17 at 09:45; Status DC Hydromorphone HCl (Dilaudid) 1 mg PRN Q4HRS PRN IV SEVERE PAIN Last administered on 05/04/17 11:13; Start 05/03/17 at 09:45 Morphine Sulfate (Ms Contin) 15 mg BID PO Last administered on 05/04/17 21:35 ; Start 05/03/17 at 09:45 Metoprolol Tartrate (Lopressor) 12.5 mg Q6HRS PO Last administered on 11:14; Start 05/03/17 at 19:00; Stop 05/04/17 at 12:51; Status DC Info 1 each PRN DAILY PRN MC SEE COMMENTS; Start 05/04/17 at 11:15 Metoprolol Tartrate (Lopressor) 25 mg BID PO ; Start 05/04/17 at 21:00 Magnesium Sulfate/ Dextrose 50 ml @ 25 mls/hr 1X ONCE IV Last administered on 05/04/17 15:46; Start 05/04/17 at 16:00; Stop 05/04/17 at 17:59; Status DC Amino Acids/ Glycerin/ Electrolytes 1,000 ml @ 80 mls/hr [id number] IV Last administered on 05/05/17 05:32; Start 05/04/17 at 16:00; Stop 05/05/17 at 21:59 Amino Acids/ Glycerin/ Electrolytes 1,000 ml @ 80 mls/hr [id number] IV ; Start at 15:30; Status UNV Sodium Chloride 1,000 ml @ 100 mls/hr Q10H IV Last administered on 05/05/17 09:32; Start 05/04/17 at 16:00 Albumin Human 500 ml @ 100 mls/hr 1X ONCE IV Last administered on 05/05/17 00:05; Start 05/04/17 at 22:00; Stop 05/05/17 at 02:59; Status DC Lidocaine HCl (Glydo (Lidocaine) Jelly) 1 emelia 1X ONCE MM Last administered on 05/05/17 08:30; Start 05/05/17 at 08:30; Stop 05/05/17 at 08:35; Status DC Throat Lozenges (Chloraseptic) 1 spray PRN Q2HR PRN PO SORE THROAT; Start 05/05 at 08:30 Non-Formulary Medication 1 each DAILY PO ; Start 05/06/17 at 09:00; Stop at 09:00; Status DC Non-Formulary Medication 1 tab QHS PO ; Start 05/05/17 at 21:00; Stop 05/05/17 at 21:00; Status DC Benzocaine (Hurricaine One) 1 spray 1X ONCE MM Last administered on 05/05/17t 10:30; Start 05/05/17 at 10:30; Stop 05/05/17 at 10:31; Status DC Throat Lozenges (Cepacol Sore Throat Lozenge) 1 west PRN Q2HRS PRN PO SORE THROAT; Start 05/05/17 at 11:00 Albumin Human 500 ml @ 100 mls/hr 1X ONCE IV ; Start 05/05/17 at 11:15; Stop 05/05/17 at 16:14 Active Scripts Active Reported Melatonin 3 Mg Tablet 1 Tab PO QHS Move Free [facility] Health Tablet (Glucosam/Chond/Hyalu/Cf Borate) 1 Each Tablet 1 Each PO DAILY Digoxin 125 Mcg Tablet 1 Tab PO DAILY Prednisone 10 Mg Tablet 10 Mg PO DAILY Vitals/I & O Vital Sign - Last 24 Hours 05/04/17 05/04/17 05/04/17 05/04/17 12:01 13:35 15:00 17:13 Temp 98.5 98.5 Pulse 115 Resp 22 B/P (MAP) 92/48 (63) Pulse Ox 96 O2 Delivery Room Air Room Air Room Air Room Air 05/04/17 05/04/17 05/04/17 05/04/17 18:23 19:21 20:17 20:19 Temp 97.5 97.5 Pulse 67 67 Resp 18 B/P (MAP) 84/52 (63) 84/52 Pulse Ox 94 O2 Delivery Room Air Room Air Room Air 05/04/17 05/04/17 05/04/17 05/05/17 21:17 21:35 22:14 01:40 Temp 97.8 97.7 97.8 97.7 Pulse 113 110 Resp 20 20 16 18 B/P (MAP) 88/56 (67) 83/61 (68) Pulse Ox 91 94 93 94 O2 Delivery Room Air Room Air Room Air Room Air 05/05/17 05/05/17 05/05/17 6/27/17 02:41 07:45 08:00 09:29 Temp 97.1 98.0 97.1 98.0 Pulse 124 61 137 Resp 18 22 B/P (MAP) 83/59 (67) 92/52 (65) 92/52 Pulse Ox 91 94 O2 Delivery Room Air Room Air Room Air Intake and Output 05/04/17 05/04/17 05/05/17 14:59 22:59 06:59 Intake Total 2257 ml Output Total 1020 ml Balance 1237 ml SILAS [place] MD May 05, 2017 11:33
[2017-05-05 11:56] LABS: % EOS 1 % (0-5); PLT ESTIMATE ADEQUATE (ADEQUATE)
--- NOTE | 2017-05-05 11:59 | PDOC ---
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 05/05/17 1159: CARDIO Progress Notes Date and Time Date of Service 05/05/17 Time of Evaluation 1130 Subjective Subjective: Other (nausea/vomiting- NG re-placed ) Vitals Vitals Vital Signs Date Time Temp Pulse Resp B/P (MAP) Pulse Ox O2 Delivery O2 Flow Rate FiO2 05/05/17 11:00 98.3 135 18 84/59 (67) 93 Room Air 98.3 Weight Weight [ ] Input and Output Intake and Output Intake and Output 05/05/17 07:00 Intake Total 2257 ml Output Total 1020 ml Balance 1237 ml Intake Oral 90 ml IV Total 2167 ml Output Urine Total 50 ml Emesis 870 ml Drainage Total 100 ml # Voids 3 # Bowel Movements 2 Laboratory Labs Laboratory Tests Test 05/04/17 15:00 05/04/17 21:00 05/05/17 08:40 Urine Color Marcia Urine Clarity Turbid Urine pH 5.5 Urine Specific [place] 1.025 Urine Protein 30 mg/dL (NEG-TRACE) Urine Glucose (UA) Negative mg/dL (NEG) Urine Ketones (Stick) 15 mg/dL (NEG) Urine Blood Negative (NEG) Urine Nitrite Negative (NEG) Urine Bilirubin Moderate (NEG) Urine Urobilinogen Dipstick 0.2 mg/dL (0.2 mg/dL) Urine Leukocyte Esterase Negative (NEG) Urine RBC 0 /HPF (0-2) Urine WBC Occ /HPF (0-4) Urine Squamous Epithelial Cells Occ /LPF Urine Bacteria 0 /HPF (0-FEW) Urine Hyaline Casts Occasional /HPF Urine Mucus Slight /LPF White Blood Count 8.6 x10^3/uL (4.0-11.0) 7.0 x10^3/uL (4.0-11.0) Red Blood Count 4.56 x10^6/uL (4.30-5.70) 3.81 x10^6/uL (4.30-5.70) Hemoglobin 15.2 g/dL (13.0-17.5) 12.8 g/dL (13.0-17.5) Hematocrit 45.5 % (39.0-53.0) 37.1 % (39.0-53.0) Mean Corpuscular Volume 100 fL (79-100) 98 fL (79-100) Mean Corpuscular Hemoglobin 33 pg (25-35) 34 pg (25-35) Mean Corpuscular Hemoglobin Concent 33 g/dL (31-37) 35 g/dL (31-37) Red Cell Distribution Width 16.0 % (11.5-14.5) 16.2 % (11.5-14.5) Platelet Count 242 x10^3/uL (140-400) 205 x10^3/uL (140-400) Neutrophils (%) (Auto) 81 % (31-73) 85 % (31-73) Lymphocytes (%) (Auto) 13 % (24-48) 10 % (24-48) Monocytes (%) (Auto) 6 % (0-9) 5 % (0-9) Eosinophils (%) (Auto) 0 % (0-3) 0 % (0-3) Basophils (%) (Auto) 0 % (0-3) 0 % (0-3) Neutrophils # (Auto) 7.0 x10^3uL (1.8-7.7) 6.0 x10^3uL (1.8-7.7) Lymphocytes # (Auto) 1.1 x10^3/uL (1.0-4.8) 0.7 x10^3/uL (1.0-4.8) Monocytes # (Auto) 0.5 x10^3/uL (0.0-1.1) 0.3 x10^3/uL (0.0-1.1) Eosinophils # (Auto) 0.0 x10^3/uL (0.0-0.7) 0.0 x10^3/uL (0.0-0.7) Basophils # (Auto) 0.0 x10^3/uL (0.0-0.2) 0.0 x10^3/uL (0.0-0.2) Sodium Level 130 mmol/L (136-145) 131 mmol/L (136-145) Potassium Level 4.2 mmol/L (3.5-5.1) 3.7 mmol/L (3.5-5.1) Chloride Level 95 mmol/L (98-107) 97 mmol/L (98-107) Carbon Dioxide Level 25 mmol/L (21-32) 26 mmol/L (21-32) Anion Gap 10 (6-14) 8 (6-14) Blood Urea Nitrogen 30 mg/dL (8-26) 33 mg/dL (8-26) Creatinine 1.8 mg/dL (0.7-1.3) 1.3 mg/dL (0.7-1.3) Estimated GFR (Cockcroft-Gault) 37.4 54.4 Glucose Level 119 mg/dL (70-99) 107 mg/dL (70-99) Calcium Level 9.6 mg/dL (8.5-10.1) 9.0 mg/dL (8.5-10.1) Phosphorus Level 2.5 mg/dL (2.6-4.7) Magnesium Level 2.0 mg/dL (1.8-2.4) Albumin 2.6 g/dL (3.4-5.0) Physical Exam HEENT: Neck Supple W Full Motion, Other (right nare NG) Chest: Symmetric LUNGS: Clear to Auscultation Heart: S1S2, irregularly irregular (tele AFIB rate 110-135), other Abdomen: Other (DRSG cdi, incisional tenderness, mild distention ) Extremities: 2+ Dorsalis Pedis, No Edema Neurology: alert, oriented, follow commands Assessment Assessment 1. Chronic atrial fibrillation, with intermittent RVR 2. Hypotension 3. S/p right colon resection with ileocolotomy 4. Post-operative pain 5. Crohn's Dx Recommendations Metoprolol held due to hypotension. Fluid bolus initiated. Readings obtained with automatic BP device. Manual SBP 160 presently. Resume metoprolol. If rate continues to be uncontrolled, will start Amiodarone gtt. Continue post-op management per surgical team. KATIE PARK MD 05/05/17 2301: CARDIO Progress Notes Plan Plan Pt. seen and examined prior to being taken to the OR. He has rapid afib in the setting of sepsis. Changed vasopressors to phenyl and vasopressin, wean levophed Supportive care. will be available for any acute issues. 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 APRN May 05, 2017 11:59 KATIE PARK MD May 05, 2017 23:01
[2017-05-05] MEDS: FAMOTIDINE 20 MG/2 ML VIAL IVP SCH ×2 (12:00→21:45)
[2017-05-05] MEDS ORDERED: AMIODARONE 900 MG in IV DEXTROSE 5% 500 ML IV PRN (12:15)
[2017-05-05] MEDS ORDERED: AMIODARONE 150 MG in IV DEXTROSE 5% 100 ML IV ONE (12:30)
[2017-05-05] MEDS: TPN PER PHARMACY MC PRN (14:06)
[2017-05-05] MEDS ORDERED: POTASSIUM PHOSPHATE DIBASIC 13.6 MMOL in IV NORMAL SALINE 100ML 100 ML IV SCH (14:30)
--- NOTE | 2017-05-05 14:35 | PDOC ---
Provider Note Provider Note SURG now with confusion, fever feculent drainage from previous RLQ drain site concern for anastomotic leak will get stat CT and transfer to ICU RON GROSS MD May 05, 2017 14:35
[2017-05-05] MEDS ORDERED: IOHEXOL 300 MG/ML 75 ML VIAL IV ONE (14:45)
[2017-05-05] MEDS ORDERED: CONTRAST GIVEN MC PRN (14:45)
--- NOTE | 2017-05-05 14:58 | PATHOLOGY ---
PATHOLOGY REPORT * * * * * * * * FINAL DIAGNOSIS: Segment of distal ileum, cecum, appendix, and right colon with attached mesocolon, extended right colon resection: - Focal ischemic colitis of mid right colon in area of tattooing, with transmural acute inflammation and hemorrhage. - Proximal (distal ileum) and distal (right colon) margins are viable. - Serosal fibrosis and adhesions of distal ileum with associated foci of foreign body granulomatous reaction to apparent material and focal periappendiceal abscess. - Focal non-specific ileitis with neuronal hypertrophy. - Focal neuronal hypertrophy of colon. - Mild adiposity of ileocecal valve. COMMENT: There is no evidence of malignancy. (JPM:[email or web address]; d/t: 05/04/2017) REPORT ELECTRONICALLY SIGNED BY: Clemente Whitt M.D. DATE/TIME: 05/05/2017 14:57 * * * * * * * * GROSS PATHOLOGY: The specimen is received in formalin labeled "David Clarke, extended right colon resection". Received is a right hemicolectomy specimen consisting of a segment of small bowel measuring 15.2 cm in length by 2.5 cm in diameter contiguous with a segment of right colon measuring 20.2 cm in length and ranging in diameter from 2.5 to 3.2 cm. Both margins are stapled closed. The serosal surface of the small bowel is pink-knight in appearance with a large amount of overlying adhesions. The serosal surface of the colon is predominantly fat wrapped exposing a slight amount of pink-knight serosa with evidence of tattooing located 12.2 cm from the distal margin. The pericolic fat measures up to 8.1 cm in thickness. The specimen is opened along the antimesenteric line to reveal light knight,, granular-appearing mucosa with minimal architectural folding. The ileocecal valve is light knight and lipomatous in appearance. The colonic mucosa is light knight and striated to cobblestoned in appearance displaying an area of tattooing located 12.0 cm from the distal margin. Perforations are not grossly identified. Normal colonic architectural folding is not grossly identified. No distinct nodules or lesions are noted grossly. The appendix is present measuring approximately 8.8 cm in length by up to 0.8 cm in diameter and is fat wrapped. Sectioning through the appendix reveals a pinpoint to patent lumen and the appendix appears grossly unremarkable. Sectioning through the attached pericolic fat reveals no readily identifiable lymph nodes. The specimen is submitted representatively as follows: A1 proximal margin A2 distal margin A3 small bowel mucosa A4 ileocecal valve A5-A6 entire tattooed mucosa A7-A9 career services representative sections of colonic mucosa A10-A11 career services representative sections of appendix, with the proximal margin and bisected tip in cassette A10. (CAA; 05/03/2017) INITIAL CPT CODE(S): A; 35299 Professional services performed by [facility] at [address] [address] Technical services performed by [facility] at [address] [place] [address], [facility] [address] [address]. SPECIMEN(S) RECEIVED: A.Extended right colon CLINICAL HISTORY: Post op resection of perforated splenic flexure PATIENT: DAVID CLARKE /AGE: 9 1945 (Age: 71) PATIENT #: [id number] ALT CASE #: SPECIMEN COLLECTION DATE: 04/30/2017 SPECIMEN RECEIVED DATE: 04/30/2017 [facility] - [address] [place] [address] - PHONE: [phone] * * * END OF REPORT * * *
--- NOTE | 2017-05-05 15:27 | RAD ---
CT study of the abdomen and pelvis with contrast Clinical indications: Nausea and vomiting; postop right colon resection with ileocolostomy. Technique: After IV infusion of 60 cc of Omnipaque 300, helical CT scanning of the abdomen and pelvis was performed. No GI contrast was administered. This may decrease the sensitivity to detect GI tract pathology. RS Compliance Statement: One or more of the following individualized dose reduction techniques were utilized for this examination: 1. Automated exposure control 2. Adjustment of the mA and/or kV according to patient size 3. Use of iterative reconstruction technique Comparison: February 01, 2017. Findings: The liver and spleen and pancreas are normal. The gallbladder is normal and no extrahepatic biliary ductal dilatation is seen. No adrenal mass is seen. There is scarring of the upper pole of the left kidney consistent with chronic pyelonephritis. No hydronephrosis or hydroureter is evident. The urinary bladder wall is smooth. Air-fluid level is seen within the urinary bladder which may be due to recent catheterization. If this is not the case, then bowel bladder fistula is possible. NG tube is in place and the tip is seen within the distal body of the stomach. There are dilated loops of small bowel dilated down to a narrowed area seen on images 61 through 64 and series 2 within the right lower quadrant. This could represent stricture or adhesion. The loop of bowel distal to this point demonstrates wall thickening as well down into the rectosigmoid region. The actual anastomosis is not visualized by CT. There is a fluid collection within the dependent portion of the pelvis which measures 7.6 cm in greatest dimension. A few bubbles of free intraperitoneal air are seen consistent with recent surgery. There is some air within the anterior abdominal wall related to the recent surgery. No focal aneurysmal dilatation of the abdominal aorta is seen. No enlarged abdominal or pelvic lymphadenopathy is seen. Bibasilar lung infiltrates are seen left greater than right. There are air bronchograms on the left side. Therefore, pneumonia or aspiration pneumonitis is a possibility. There is an infiltrate present within the posterior aspect of the lingula as well. No pleural effusion is seen. No osteolytic process is seen. IMPRESSION: Recent ileocolostomy surgery. There are dilated small bowel loops. This may secondary to stricture or adhesion of the right lower quadrant. There is a postoperative fluid collection measuring 7.6 cm dimension in the dependent portion of the pelvis. There is no rim-type enhancement to indicate an abscess at this point in time. There are a few bubbles of free intraperitoneal air related to the recent surgery. Air-fluid level is seen within the urinary bladder most likely secondary to recent catheterization. If this has not been performed, a bowel bladder fistula is certainly possible. Bibasilar lung infiltrates more prominent on the left side. Pneumonia or aspiration pneumonitis are possibilities.
[2017-05-05 15:58] LABS: CALCIUM 6.1 mg/dL (8.5-10.1); CREATININE 0.8 mg/dL (0.7-1.3); GFR 95.3
[2017-05-05] MEDS ORDERED: PIP/TAZO PER PHARMACY MC PRN (16:00)
[2017-05-05 16:02] LABS: POTASSIUM 2.5 mmol/L (3.5-5.1)
[2017-05-05 16:07] LABS: BASO % 0 % (0-3); EOS % 0 % (0-3); HEMATOCRIT 27.8 % (39.0-53.0); HEMOGLOBIN 9.4 g/dL (13.0-17.5); LYMPH # 0.3 x10^3/uL (1.0-4.8); LYMPH % 5 % (24-48); MEAN CORPUSCULAR HEMOGLOBIN 34 pg (25-35); MEAN CORPUSCULAR HGB CONC 34 g/dL (31-37); MEAN CORPUSCULAR VOLUME 99 fL (79-100); MONO % 3 % (0-9); NEUT % 91 % (31-73); PLATELET COUNT 140 x10^3/uL (140-400); RED BLOOD COUNT 2.79 x10^6/uL (4.30-5.70); RED CELL DISTRIBUTION WIDTH 15.6 % (11.5-14.5)
--- NOTE | 2017-05-05 16:17 | EKG ---
[facility] [address] [place] [address] Test Date: 2017-05-05 Test Time: 11:14:12 Pat Name: ROMANA JOINER Department: Room: 112 1 Gender: M C.O.D. Clerk: CHACE : 1945 Requested By: 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 Order Number: [id number] Reading MD: Oly Walls Measurements Intervals [place] Rate: 128 P: ND: QRS: 31 QRSD: 90 T: 76 QT: 344 QTc: 506 Interpretive Statements ATRIAL FIBRILLATION LOW LIMB LEAD VOLTAGE Electronically Signed On 05-08-2017 21:01:02 CDT by Oly Walls
[2017-05-05 16:18] LABS: INR 1.7 (0.8-1.1); PROTHROMBIN TIME PATIENT 18.7 SEC (11.7-14.0)
[2017-05-05] MEDS ORDERED: NOREPINEPHRIN PREMIX 250 ML IV ONE (16:22)
[2017-05-05] MEDS: VANCOMYCIN PER PHARMACY MC PRN (16:26)
[2017-05-05] MEDS: PIPERACILLIN/TAZOBACTAM 4.5 GM in IV NORMAL SALINE 100ML 100 ML IV SCH ×2 (16:28→23:32)
--- NOTE | 2017-05-05 16:30 | PDOC ---
Provider Note Provider Note David is awake, alert Hypotensive recommended exploration discussed with him and Ayah he will proceed. RON GROSS MD May 05, 2017 16:29
[2017-05-05] MEDS: POTASSIUM CHLORIDE 20MEQ 50 ML IV SCH ×3 (16:38→16:59)
[2017-05-05] MEDS ORDERED: VANCOMYCIN 1.75 GM in IV NORMAL SALINE 500ML BAG 500 ML IV ONE (17:00)
[2017-05-05] MEDS ORDERED: LIDOCAINE 2% PF Vial for OR 5 ML VIAL. ONE (17:21)
[2017-05-05] MEDS ORDERED: PROPOFOL 0 ML IV ONE (17:21)
[2017-05-05] MEDS ORDERED: ROCURONIUM 50 MG/5 ML VIAL. ONE ×2 (17:22→18:52)
[2017-05-05] MEDS ORDERED: SUCCINYLCHOLINE 200 MG/10 ML VIAL. ONE (17:22)
[2017-05-05] MEDS ORDERED: fentaNYL PF VIAL 100 MCG/2 ML VIAL ONE (17:22)
[2017-05-05] MEDS ORDERED: ETOMIDATE 20 MG/10 ML VIAL. IV ONE (17:25)
[2017-05-05] MEDS ORDERED: DESFLURANE 61 TO 120 MINUTES IH ONE (18:02)
[2017-05-05] MEDS ORDERED: PHENYLEPHRINE 10 MG/ML VIAL. ONE (19:53)
[2017-05-05] MEDS ORDERED: NON FORMULARY ITEM (Melatonin 1 TAB) PO SCH (21:00)
--- NOTE | 2017-05-05 21:29 | PDOC ---
BRIEF OPERATIVE NOTE Date: May 05, 2017 Pre-Op Diagnosis sepsis Post-Op Diagnosis same 2/2 ruptured ileo-colic anastomosis, fecal impaction Procedure Performed rigid procto, disimpaction, ex lap, resection of ileo-colic anastomosis, end ileostomy, Evans's pouch, DALLIN Surgeon Jose ONTIVEROS Anesthesia Type: General Blood Loss 150cc IV Fluid 2500cc Specimens Obtained ileo-colic anastomosis, distal ileum Findings disrupted anastomosis with associated pelvic abscess Complications none RON GROSS MD May 05, 2017 21:28
--- NOTE | 2017-05-05 21:40 | RAD ---
Exam: AP portable chest History: Intubation. Respiratory failure. Comparison: February 03, 2017. Findings: Cardiac silhouette appears within normal limits for size. Endotracheal tube tip projects 6 cm above the mehnaz. Esophagogastric tube is present with tip not seen, at least to the body of stomach. No pneumothorax is seen. There may be left pleural effusion. Density at the left lung base could represent atelectasis versus pneumonia. Right internal jugular central venous catheter is present with tip projecting at superior vena cava. Right-sided PICC line tip projects at the superior vena cava. There is accentuation of pulmonary vascularity, may be artifact of supine positioning or represent pulmonary vascular congestion. Impression: 1. Endotracheal tube tip projects 6 cm above the mehnaz. 2. Density at left lung base, could be pleural effusion and atelectasis versus airspace disease. 3. Exaggerated pulmonary vascularity, could be artifact of supine positioning or represent pulmonary vascular congestion. Electronically signed by: Wilton Rm MD (05/05/2017 9:37 PM)
[2017-05-05] MEDS: fentaNYL PF VIAL 100 MCG/2 ML VIAL IV PRN (21:45)
[2017-05-05] MEDS: PROPOFOL 100 ML IV PRN (21:47)
[2017-05-05] MEDS ORDERED: DEXTROSE 70% IV SCH ×10 (22:00)
[2017-05-05] MEDS ORDERED: AMINO ACIDS IV SCH ×10 (22:00)
[2017-05-05] MEDS ORDERED: [UNRECOGNIZED DRUG - OTHER] IV SCH ×10 (22:00)
[2017-05-05] MEDS ORDERED: TOTAL PARENTERAL NUTRITION IV SCH ×10 (22:00)
[2017-05-05] MEDS: MIDAZOLAM PREMIX 100 ML IV PRN (22:09)
[2017-05-05] MEDS: VASOPRESSIN 40 UNIT in IV DEXTROSE 5% 100 ML IV PRN (22:10)
[2017-05-05] MEDS: PHENYLEPHRINE INJ 20 MG in IV NORMAL SALINE 250ML 250 ML IV PRN ×2 (22:10→23:32)
[2017-05-05 22:56] LABS: HCO3 ABG 17 mmol/L (21-28); PCO2 ABG 35 mmHg (35-46); PH ABG 7.32 (7.35-7.45); PO2 ABG 223 mmHg (65-108); SAT O2 ABG 99 % (92-99)
[2017-05-05 22:57] LABS: FIO2 ABG 80
[2017-05-06] VITALS (25 sets, daily range): BP systolic 82–120; BP diastolic 54–82
[2017-05-06] MEDS: PHENYLEPHRINE INJ 20 MG in IV NORMAL SALINE 250ML 250 ML IV PRN ×4 (01:15→06:22)
[2017-05-06] MEDS: SODIUM BICARBONATE VIAL 150 MEQ in IV DEXTROSE 5% 1,000 ML IV SCH ×3 (01:22→15:17)
--- NOTE | 2017-05-06 03:48 | RAD ---
EXAM: PORTABLE CHEST 1V HISTORY: ET tube advancement COMPARISON: May 05, 2017 TECHNIQUE: Semiupright portable view of the chest is obtained. FINDINGS: Distal tip of the ET tube terminates approximately 6 cm above the mehnaz. Visualized gastric tube, right upper extremity PICC line, and right IJ central line appear grossly stable in position. There is improved aeration of the left lower lung, which may be secondary to semiupright positioning when compared to the previous supine exam. Trace residual left pleural fluid may be present. No interval consolidation is seen. Patchy opacity seen in the region of the lingula. No pneumothorax is seen. Cardiomediastinal silhouette is stable in size. Visualized osseous structures and overlying soft tissues demonstrate no acute interval change. IMPRESSION: Lines and tubes, as detailed above. Trace residual left pleural fluid likely present. Minimal left basilar opacity, may represent atelectasis or infiltrate although appears improved. Electronically signed by: Annelise Gutiérrez MD (05/06/2017 3:45 AM)
[2017-05-06] MEDS: PIPERACILLIN/TAZOBACTAM 4.5 GM in IV NORMAL SALINE 100ML 100 ML IV SCH ×3 (05:35→19:10)
[2017-05-06] MEDS: ENOXAPARIN 40 MG/0.4 ML SYRINGE. SQ SCH (05:46)
[2017-05-06 06:01] LABS: BASO % 0 % (0-3); EOS % 0 % (0-3); HEMATOCRIT 35.9 % (39.0-53.0); HEMOGLOBIN 11.7 g/dL (13.0-17.5); LYMPH # 1.1 x10^3/uL (1.0-4.8); LYMPH % 6 % (24-48); MEAN CORPUSCULAR HEMOGLOBIN 33 pg (25-35); MEAN CORPUSCULAR HGB CONC 33 g/dL (31-37); MEAN CORPUSCULAR VOLUME 101 fL (79-100); MONO % 1 % (0-9); NEUT % 92 % (31-73); PLATELET COUNT 190 x10^3/uL (140-400); RED BLOOD COUNT 3.56 x10^6/uL (4.30-5.70); RED CELL DISTRIBUTION WIDTH 16.2 % (11.5-14.5); WHITE BLOOD COUNT 17.1 x10^3/uL (4.0-11.0)
[2017-05-06] MEDS: MIDAZOLAM PREMIX 100 ML IV PRN ×2 (06:08→19:01)
[2017-05-06] MEDS: VANCOMYCIN 1.25 GM in IV NORMAL SALINE 250ML 250 ML IV SCH ×2 (06:08→18:57)
[2017-05-06 06:28] LABS: CALCIUM 7.8 mg/dL (8.5-10.1); GFR 73.7; POTASSIUM 4.1 mmol/L (3.5-5.1)
--- NOTE | 2017-05-06 07:27 | RAD ---
Indication: Abdominal surgery. Time of exam 2053 hours. The NG tube is located in the stomach. Surgical drains overlie the lower abdomen. Midline skin soraya have been removed since earlier the same day. Bowel gas pattern is nonobstructed. No unexpected radiopaque foreign objects are seen. Impression: No acute feature identified.
--- NOTE | 2017-05-06 07:31 | PDOC ---
Infectious Disease Note Subjective Subjective This is a 71 yo male with h/o chronic AFIB and Crohn's Dx, who has h/o perforated viscous and underwent lap with resection 01/25/2017. Cults + for H para/Clostridium Ramsom/Bacteroides/Strep bovis. D/cd home with Augmentin. Presented electively for an extended right colon resection with ileocolotomy . Taken back to OR ruptured ileo-colic anastomosis, fecal impaction s /p rigid procto, disimpaction, ex lap, resection of ileo-colic anastomosis, end ileostomy, Evans's pouch, DALLIN ROS ROS Unobtainable Vital Sign Vital Signs Vital Signs Date Time Temp Pulse Resp B/P (MAP) Pulse Ox O2 Delivery O2 Flow Rate FiO2 05/06/17 06:00 112 30 103/63 (76) 99 Ventilator 05/06/17 04:00 98.6 98.6 Physical Exam PHYSICAL EXAM GEN: Intubated/Sedated HEENT: ETT/OGT, PERRL, nml conj Neck supple LUNG - CTA CV - Tachy S1/S2 ABD: - ostomy with 3 drains. Right flank erythema and thicken skin. Wound dressed : Wagner EXT: No C/C/Bilat hand erythema IV: RIJ/PICC/left wrist art line SKIN no Gen rash NEURO: Intubated/Sedated Labs Lab Laboratory Tests Test 05/05/17 08:40 05/05/17 15:30 05/05/17 21:55 05/05/17 22:45 White Blood Count 7.0 x10^3/uL (4.0-11.0) 5.0 x10^3/uL (4.0-11.0) Red Blood Count 3.81 x10^6/uL (4.30-5.70) 2.79 x10^6/uL (4.30-5.70) Hemoglobin 12.8 g/dL (13.0-17.5) 9.4 g/dL (13.0-17.5) Hematocrit 37.1 % (39.0-53.0) 27.8 % (39.0-53.0) Mean Corpuscular Volume 98 fL (79-100) 99 fL (79-100) Mean Corpuscular Hemoglobin 34 pg (25-35) 34 pg (25-35) Mean Corpuscular Hemoglobin Concent 35 g/dL (31-37) 34 g/dL (31-37) Red Cell Distribution Width 16.2 % (11.5-14.5) 15.6 % (11.5-14.5) Platelet Count 205 x10^3/uL (140-400) 140 x10^3/uL (140-400) Neutrophils (%) (Auto) 85 % (31-73) 91 % (31-73) Lymphocytes (%) (Auto) 10 % (24-48) 5 % (24-48) Monocytes (%) (Auto) 5 % (0-9) 3 % (0-9) Eosinophils (%) (Auto) 0 % (0-3) 0 % (0-3) Basophils (%) (Auto) 0 % (0-3) 0 % (0-3) Neutrophils # (Auto) 6.0 x10^3uL (1.8-7.7) 4.5 x10^3uL (1.8-7.7) Lymphocytes # (Auto) 0.7 x10^3/uL (1.0-4.8) 0.3 x10^3/uL (1.0-4.8) Monocytes # (Auto) 0.3 x10^3/uL (0.0-1.1) 0.2 x10^3/uL (0.0-1.1) Eosinophils # (Auto) 0.0 x10^3/uL (0.0-0.7) 0.0 x10^3/uL (0.0-0.7) Basophils # (Auto) 0.0 x10^3/uL (0.0-0.2) 0.0 x10^3/uL (0.0-0.2) Segmented Neutrophils % 11 % (35-66) Band Neutrophils % 55 % (0-9) Lymphocytes % 21 % (24-48) Monocytes % 2 % (0-10) Eosinophils % 1 % (0-5) Metamyelocytes % 6 % (0-0) Myelocytes % 4 % (0-0) Platelet Estimate Adequate (ADEQUATE) Sodium Level 131 mmol/L (136-145) 134 mmol/L (136-145) Potassium Level 3.7 mmol/L (3.5-5.1) 2.5 mmol/L (3.5-5.1) 4.2 mmol/L (3.5-5.1) Chloride Level 97 mmol/L (98-107) 102 mmol/L (98-107) Carbon Dioxide Level 26 mmol/L (21-32) 22 mmol/L (21-32) Anion Gap 8 (6-14) 10 (6-14) Blood Urea Nitrogen 33 mg/dL (8-26) 25 mg/dL (8-26) Creatinine 1.3 mg/dL (0.7-1.3) 0.8 mg/dL (0.7-1.3) Estimated GFR (Cockcroft-Gault) 54.4 95.3 Glucose Level 107 mg/dL (70-99) 84 mg/dL (70-99) Calcium Level 9.0 mg/dL (8.5-10.1) 6.1 mg/dL (8.5-10.1) Phosphorus Level 2.5 mg/dL (2.6-4.7) Magnesium Level 2.0 mg/dL (1.8-2.4) Albumin 2.6 g/dL (3.4-5.0) Prothrombin Time 18.7 SEC (11.7-14.0) Prothromb Time International Ratio 1.7 (0.8-1.1) Lactic Acid Level 2.0 mmol/L (0.4-2.0) O2 Saturation 99 % (92-99) Arterial Blood pH 7.32 (7.35-7.45) Arterial Blood pCO2 at Patient Temp 35 mmHg (35-46) Arterial Blood pO2 at Patient Temp 223 mmHg (65-108) Arterial Blood HCO3 17 mmol/L (21-28) Arterial Blood Base Excess -8 mmol/L (-3-3) FiO2 80 Test 05/06/17 05:45 White Blood Count 17.1 x10^3/uL (4.0-11.0) Red Blood Count 3.56 x10^6/uL (4.30-5.70) Hemoglobin 11.7 g/dL (13.0-17.5) Hematocrit 35.9 % (39.0-53.0) Mean Corpuscular Volume 101 fL (79-100) Mean Corpuscular Hemoglobin 33 pg (25-35) Mean Corpuscular Hemoglobin Concent 33 g/dL (31-37) Red Cell Distribution Width 16.2 % (11.5-14.5) Platelet Count 190 x10^3/uL (140-400) Neutrophils (%) (Auto) 92 % (31-73) Lymphocytes (%) (Auto) 6 % (24-48) Monocytes (%) (Auto) 1 % (0-9) Eosinophils (%) (Auto) 0 % (0-3) Basophils (%) (Auto) 0 % (0-3) Neutrophils # (Auto) 15.8 x10^3uL (1.8-7.7) Lymphocytes # (Auto) 1.1 x10^3/uL (1.0-4.8) Monocytes # (Auto) 0.2 x10^3/uL (0.0-1.1) Eosinophils # (Auto) 0.0 x10^3/uL (0.0-0.7) Basophils # (Auto) 0.0 x10^3/uL (0.0-0.2) Sodium Level 134 mmol/L (136-145) Potassium Level 4.1 mmol/L (3.5-5.1) Chloride Level 105 mmol/L (98-107) Carbon Dioxide Level 20 mmol/L (21-32) Anion Gap 9 (6-14) Blood Urea Nitrogen 23 mg/dL (8-26) Creatinine 1.0 mg/dL (0.7-1.3) Estimated GFR (Cockcroft-Gault) 73.7 Glucose Level 202 mg/dL (70-99) Lactic Acid Level 4.0 mmol/L (0.4-2.0) Calcium Level 7.8 mg/dL (8.5-10.1) Phosphorus Level 2.0 mg/dL (2.6-4.7) Magnesium Level 1.8 mg/dL (1.8-2.4) Objective Assessment Sepsis on pressors (Bhargav/Vaso) Leukocytosis - post op vs ID Ruptured ileo-colic anastomosis, fecal impaction s/p rigid procto, disimpaction , ex lap, resection of ileo-colic anastomosis, end ileostomy, Evans's pouch, DALLIN 05/05 Right flank ? cellulitis Immunosuppression Afib H/o H para/Clostridium Ramsom/Bacteroides/Strep bovis January 2017 Plan Plan of Care Cont Vanc/zosyn Add micafungin F/u labs and obtain blood cults times 2 Reviewed previous records D/w Dr. Garcia 05/05 Critically ill 35 mins Thank you Dictation system down # JYOTI SALES MD May 06, 2017 07:31
[2017-05-06] MEDS ORDERED: PHENYLEPHRINE INJ 80 MG in IV NORMAL SALINE 250ML 250 ML IV PRN (08:00)
[2017-05-06] MEDS: VANCOMYCIN PER PHARMACY MC PRN (08:05)
[2017-05-06 08:09] LABS: HCO3 ABG 17 mmol/L (21-28); PCO2 ABG 28 mmHg (35-46); PO2 ABG 79 mmHg (65-108); SAT O2 ABG 96 % (92-99)
[2017-05-06 08:11] LABS: FIO2 ABG 30
[2017-05-06] MEDS: fentaNYL PF VIAL 100 MCG/2 ML VIAL IV PRN (08:14)
[2017-05-06] MEDS: FAMOTIDINE 20 MG/2 ML VIAL IVP SCH ×2 (08:15→21:38)
[2017-05-06] MEDS: MICAFUNGIN 100 MG in IV DEXTROSE 5% 100 ML IV SCH (08:37)
[2017-05-06] MEDS: MORPHINE ER 15 MG TABLET.ER PO SCH ×2 (09:00→21:00)
[2017-05-06] MEDS ORDERED: [UNRECOGNIZED DRUG - REMARK] PO SCH (09:00)
--- NOTE | 2017-05-06 09:53 | PDOC ---
CARDIO Progress Notes Date and Time Date of Service 05/06/17 Time of Evaluation 0935 Subjective Subjective: Other (intubated, sedated ) Vitals Vitals Vital Signs Date Time Temp Pulse Resp B/P (MAP) Pulse Ox O2 Delivery O2 Flow Rate FiO2 05/06/17 08:54 98 Ventilator 05/06/17 08:14 36 30.0 05/06/17 06:00 112 103/63 (76) 05/06/17 04:00 98.6 98.6 Weight Weight [ ] Input and Output Intake and Output Intake and Output 05/06/17 07:00 Intake Total 3125 ml Output Total 1671 ml Balance 1454 ml Intake Oral 0 ml IV Total 3125 ml Output Urine Total 871 ml Stool Total 240 ml Gastric Drainage Total 200 ml Drainage Total 360 ml Laboratory Labs Laboratory Tests Test 05/05/17 15:30 05/05/17 21:55 05/05/17 22:45 05/06/17 05:45 White Blood Count 5.0 x10^3/uL (4.0-11.0) 17.1 x10^3/uL (4.0-11.0) Red Blood Count 2.79 x10^6/uL (4.30-5.70) 3.56 x10^6/uL (4.30-5.70) Hemoglobin 9.4 g/dL (13.0-17.5) 11.7 g/dL (13.0-17.5) Hematocrit 27.8 % (39.0-53.0) 35.9 % (39.0-53.0) Mean Corpuscular Volume 99 fL (79-100) 101 fL (79-100) Mean Corpuscular Hemoglobin 34 pg (25-35) 33 pg (25-35) Mean Corpuscular Hemoglobin Concent 34 g/dL (31-37) 33 g/dL (31-37) Red Cell Distribution Width 15.6 % (11.5-14.5) 16.2 % (11.5-14.5) Platelet Count 140 x10^3/uL (140-400) 190 x10^3/uL (140-400) Neutrophils (%) (Auto) 91 % (31-73) 92 % (31-73) Lymphocytes (%) (Auto) 5 % (24-48) 6 % (24-48) Monocytes (%) (Auto) 3 % (0-9) 1 % (0-9) Eosinophils (%) (Auto) 0 % (0-3) 0 % (0-3) Basophils (%) (Auto) 0 % (0-3) 0 % (0-3) Neutrophils # (Auto) 4.5 x10^3uL (1.8-7.7) 15.8 x10^3uL (1.8-7.7) Lymphocytes # (Auto) 0.3 x10^3/uL (1.0-4.8) 1.1 x10^3/uL (1.0-4.8) Monocytes # (Auto) 0.2 x10^3/uL (0.0-1.1) 0.2 x10^3/uL (0.0-1.1) Eosinophils # (Auto) 0.0 x10^3/uL (0.0-0.7) 0.0 x10^3/uL (0.0-0.7) Basophils # (Auto) 0.0 x10^3/uL (0.0-0.2) 0.0 x10^3/uL (0.0-0.2) Prothrombin Time 18.7 SEC (11.7-14.0) Prothromb Time International Ratio 1.7 (0.8-1.1) Sodium Level 134 mmol/L (136-145) 134 mmol/L (136-145) Potassium Level 2.5 mmol/L (3.5-5.1) 4.2 mmol/L (3.5-5.1) 4.1 mmol/L (3.5-5.1) Chloride Level 102 mmol/L (98-107) 105 mmol/L (98-107) Carbon Dioxide Level 22 mmol/L (21-32) 20 mmol/L (21-32) Anion Gap 10 (6-14) 9 (6-14) Blood Urea Nitrogen 25 mg/dL (8-26) 23 mg/dL (8-26) Creatinine 0.8 mg/dL (0.7-1.3) 1.0 mg/dL (0.7-1.3) Estimated GFR (Cockcroft-Gault) 95.3 73.7 Glucose Level 84 mg/dL (70-99) 202 mg/dL (70-99) Lactic Acid Level 2.0 mmol/L (0.4-2.0) 4.0 mmol/L (0.4-2.0) Calcium Level 6.1 mg/dL (8.5-10.1) 7.8 mg/dL (8.5-10.1) O2 Saturation 99 % (92-99) Arterial Blood pH 7.32 (7.35-7.45) Arterial Blood pCO2 at Patient Temp 35 mmHg (35-46) Arterial Blood pO2 at Patient Temp 223 mmHg (65-108) Arterial Blood HCO3 17 mmol/L (21-28) Arterial Blood Base Excess -8 mmol/L (-3-3) FiO2 80 Phosphorus Level 2.0 mg/dL (2.6-4.7) Magnesium Level 1.8 mg/dL (1.8-2.4) Test 05/06/17 08:00 O2 Saturation 96 % (92-99) Arterial Blood pH 7.40 (7.35-7.45) Arterial Blood pCO2 at Patient Temp 28 mmHg (35-46) Arterial Blood pO2 at Patient Temp 79 mmHg (65-108) Arterial Blood HCO3 17 mmol/L (21-28) Arterial Blood Base Excess -7 mmol/L (-3-3) FiO2 30 Physical Exam HEENT: Neck Supple W Full Motion Chest: Symmetric LUNGS: Other (intubated with mechanical ventilation) Heart: irregularly irregular (tele AFIB rate 110), other (distant heart tones ) Abdomen: Other (Abdominal drain x3 intact, ileostomy intact ) Extremities: No Edema, Other (diminished DP pulse; obtained by doppler ) Neurology: other (sedated ) Assessment Assessment 1. Chronic atrial fibrillation 2. S/p right colon resection with ileocolotomy 3. Ruptured ileo-colic anastomosis, fecal impaction 4. Acute respiratory failure s/p intubation 5. Leukocytosis, lactic acidosis 6. Septic shock, 2/2 #3; requiring pressors for support 7. Crohn's Dx Recommendations Supportive care Continue pressor support as warranted. Post-op management per surgical team. Continue IV antibiotics as per DELANEY JESSICA APRN May 06, 2017 09:53
[2017-05-06 10:35] LABS: PLT ESTIMATE ADEQUATE (ADEQUATE)
[2017-05-06] MEDS ORDERED: NOREPINEPHRIN PREMIX 250 ML IV PRN (10:45)
[2017-05-06] MEDS ORDERED: NALOXONE 0.4 MG/ML VIAL. IV PRN (10:45)
--- NOTE | 2017-05-06 10:50 | PDOC2 ---
CONSULT Date of Consult Date of Consult DATE: 05/06/17 TIME: 10:43 Reason for Consult Reason for Consult: RF/SEPTIC SHOCK History of Present Illness Reason for Visit: This is a 71 yo male with h/o chronic AFIB and Crohn's Dx, who has h/o perforated viscous and underwent lap with resection 01/25/2017. Cults + for H para/Clostridium Ramsom/Bacteroides/Strep bovis. D/cd home with Augmentin. Presented electively for an extended right colon resection with ileocolotomy . Taken back to OR ruptured ileo-colic anastomosis, fecal impaction s /p rigid procto, disimpaction, ex lap, resection of ileo-colic anastomosis, end ileostomy, Evans's pouch, D[place]IN. Now on vent/ increase w/o breathing, septic shock, on two pressors ROS Past Medical History Cardiovascular: AFIB, Hyperlipidemia Pulmonary: No pertinent hx CENTRAL NERVOUS SYSTEM: Other GI: Other Heme/Onc: No pertinent hx Hepatobiliary: No pertinent hx Psych: No pertinent hx Musculoskeletal: Osteoarthritis Rheumatologic: No pertinent hx Infectious disease: No pertinent hx Renal/: Other Endocrine: No pertinent hx Past Surgical History Past Surgical History: Hernia Repair, Colon Resection, Other (see PMH) Family History Family History: Cancer Social History <1 pack per day ALCOHOL: other (beer daily ) Lives: with Family Current Medications Current Medications Current Medications Ondansetron HCl (Zofran) 4 mg PRN Q6HRS PRN IV NAUSEA/VOMITING; Start 04/29/17 at 07:00; Stop 04/29/17 at 17:32; Status DC Fentanyl Citrate (Fentanyl 2ml Vial) 25 mcg PRN Q5MIN PRN IV MILD PAIN; Start 04/29/17 at 07:00; Stop 04/30/17 at 06:59; Status DC Fentanyl Citrate (Fentanyl 2ml Vial) 50 mcg PRN Q5MIN PRN IV MODERATE PAIN Last administered on 04/29/17t 16:59; Start 04/29/17 at 07:00; Stop 04/30/17 at 06:59; Status DC Morphine Sulfate 1 mg PRN Q10MIN PRN IV SEVERE PAIN Last administered on t 16:41; Start 04/29/17 at 07:00; Stop 04/30/17 at 06:59; Status DC Ringer's Solution 1,000 ml @ 30 mls/hr Q24H IV Last administered on 04/29/17t 10:42; Start 04/29/17 at 07:00; Stop 04/29/17 at 18:59; Status DC Lidocaine HCl 2 ml PRN 1X PRN ID PRIOR TO IV START; Start 04/29/17 at 07:00; Stop 04/30/17 at 06:59; Status DC Hydromorphone HCl (Dilaudid) 0.5 mg PRN Q10MIN PRN IV SEV PAIN, Second choice; Start 04/29/17 at 07:00; Stop 04/30/17 at 06:59; Status DC Prochlorperazine Edisylate (Compazine) 5 mg PACU PRN PRN IV NAUSEA, MRX1; Start 04/29/17 at 07:00; Stop 04/30/17 at 06:59; Status DC Cefoxitin Sodium 1 gm/Sodium Chloride 50 ml @ 100 mls/hr 1X ONCE IV Last administered on 04/29/17 12:00; Start 04/29/17 at 06:00; Stop 04/29/17 at 06:29 ; Status DC Dexamethasone Sodium Phosphate (Decadron) 20 mg STK-MED ONCE .ROUTE ; Start at 10:47; Stop 04/29/17 at 10:48; Status DC Ondansetron HCl (Zofran) 4 mg STK-MED ONCE .ROUTE ; Start 04/29/17 at 10:47; Stop 04/29/17 at 10:48; Status DC Propofol 20 ml @ As Directed STK-MED ONCE IV ; Start 04/29/17 at 10:47; Stop at 10:48; Status DC Lidocaine HCl (Lidocaine Pf 2% Vial) 5 ml STK-MED ONCE .ROUTE ; Start 04/29/17 at 10:47; Stop 04/29/17 at 10:48; Status DC Desflurane (Suprane) 60 ml STK-MED ONCE IH ; Start 04/29/17 at 10:47; Stop 04/29 at 10:48; Status DC Fentanyl Citrate (Fentanyl 2ml Vial) 100 mcg STK-MED ONCE .ROUTE ; Start at 10:47; Stop 04/29/17 at 10:48; Status DC Rocuronium [place] (Zemuron) 50 mg STK-MED ONCE .ROUTE ; Start 04/29/17 at 10:47 ; Stop 04/29/17 at 10:48; Status DC Phenylephrine HCl 1 mg STK-MED ONCE IV ; Start 04/29/17 at 11:52; Stop 04/29/17 at 11:53; Status DC Hydrocortisone Sodium Succinate (Solu-CORTEF) 100 mg STK-MED ONCE .ROUTE ; Start 04/29/17 at 12:04; Stop 04/29/17 at 12:05; Status DC Fentanyl Citrate (Fentanyl 2ml Vial) 100 mcg STK-MED ONCE .ROUTE ; Start at 12:21; Stop 04/29/17 at 12:22; Status DC Rocuronium [place] (Zemuron) 50 mg STK-MED ONCE .ROUTE ; Start 04/29/17 at 12:53 ; Stop 04/29/17 at 12:54; Status DC Labetalol HCl (Normodyne) 20 mg STK-MED ONCE .ROUTE ; Start 04/29/17 at 12:53; Stop 04/29/17 at 12:54; Status DC Fentanyl Citrate (Fentanyl 2ml Vial) 100 mcg STK-MED ONCE .ROUTE ; Start at 12:55; Stop 04/29/17 at 12:56; Status DC Esmolol HCl (Brevibloc) 100 mg STK-MED ONCE IV ; Start 04/29/17 at 12:59; Stop 04/29/17 at 13:00; Status DC Morphine Sulfate 10 mg STK-MED ONCE .ROUTE ; Start 04/29/17 at 13:03; Stop 04/29 at 13:04; Status DC Rocuronium [place] (Zemuron) 100 mg STK-MED ONCE .ROUTE ; Start 04/29/17 at 14: 10; Stop 04/29/17 at 14:11; Status DC Fentanyl Citrate (Fentanyl 2ml Vial) 100 mcg STK-MED ONCE .ROUTE ; Start at 15:08; Stop 04/29/17 at 15:09; Status DC Glycopyrrolate (Robinul) 1 mg STK-MED ONCE .ROUTE ; Start 04/29/17 at 15:29; Stop 04/29/17 at 15:30; Status DC Neostigmine Methylsulfate 5 mg STK-MED ONCE .ROUTE ; Start 04/29/17 at 15:29; Stop 04/29/17 at 15:30; Status DC Esmolol HCl (Brevibloc) 100 mg STK-MED ONCE IV ; Start 04/29/17 at 16:05; Stop 04/29/17 at 16:06; Status DC Diphenhydramine HCl (Benadryl) 25 mg PRN Q6HRS PRN IV ITCHING Last administered on 05/04/17 20:36; Start 04/29/17 at 16:30 Enoxaparin Sodium (Lovenox 40mg Syringe) 40 mg Q24H SQ Last administered on 05:36; Start 04/30/17 at 06:00 Sodium Chloride (Normal Saline Flush) 3 ml QSHIFT PRN IV AFTER MEDS AND BLOOD DRAWS; Start 04/29/17 at 16:30 Potassium Chloride/Sodium Chloride 1,000 ml @ 100 mls/hr Q10H IV Last administered on 05/01/17 00:17; Start 04/29/17 at 16:26; Stop 05/01/17 at 18:31 ; Status DC Hydromorphone HCl 30 ml @ 0 mls/hr CONT PRN PRN IV PROTOCOL Last administered on 04/30/17 18:01; Start 04/29/17 at 16:30; Stop 05/03/17 at 09:45; Status DC Ondansetron HCl (Zofran) 4 mg PRN Q6HRS PRN IV NAUESA, 1ST CHOICE; Start at 16:30; Stop 05/02/17 at 12:27; Status DC Throat Lozenges (Chloraseptic) 1 spray PRN Q2HR PRN PO SORE THROAT; Start 04/29 at 16:45; Stop 05/05/17 at 11:28; Status DC Throat Lozenges (Chloraseptic) 1 spray PRN Q2HR PRN PO SORE THROAT; Start 04/29 at 16:45; Stop 04/29/17 at 17:32; Status DC Digoxin (Lanoxin) 125 mcg DAILY PO Last administered on 05/01/17 09:32; Start 04/30/17 at 09:00; Stop 05/01/17 at 14:05; Status DC Prednisone (Prednisone) 10 mg DAILY PO ; Start 04/30/17 at 09:00; Stop 04/30/17 at 16:33; Status DC Methylprednisolone Sodium Succinate (SOLU-Medrol 40MG VIAL) 15 mg DAILY IV Last administered on 05/02/17 07:59; Start 04/30/17 at 11:00; Stop 05/02/17 at 14:00; Status DC Pantoprazole Sodium (Protonix Vial) 40 mg DAILYAC IVP Last administered on 05/02 07:57; Start 04/30/17 at 17:00; Stop 05/02/17 at 13:45; Status DC Digoxin (Lanoxin) 250 mcg DAILY PO Last administered on 05/05/17 09:29; Start 05/02/17 at 09:00 Sodium Chloride 1,000 ml @ 100 mls/hr Q10H IV Last administered on 05/04/17 03:25; Start 05/01/17 at 18:30; Stop 05/04/17 at 15:20; Status DC Nicotine (Nicoderm Cq 14mg) 1 patch PRN DAILY PRN TD SMOKING CESSATION Last administered on 05/04/17 11:15; Start 05/02/17 at 06:45 Ondansetron HCl (Zofran) 4 mg PRN Q6HRS PRN IV NAUSEA/VOMITING Last administered on 05/05/17 09:36; Start 05/02/17 at 12:30 Acetaminophen/ Hydrocodone Bitart (Lortab 5/325) 1 tab PRN Q4HRS PRN PO MILD PAIN Last administered on 05/04/17 17:13; Start 05/02/17 at 12:30 Fentanyl Citrate (Fentanyl 2ml Vial) 50 mcg PRN Q2HR PRN IV MODERATE PAIN Last administered on 05/06/17 08:14; Start 05/02/17 at 12:30 Famotidine (Pepcid) 20 mg DAILY IVP Last administered on 05/03/17 09:01; Start 05/03/17 at 09:00; Stop 05/03/17 at 09:45; Status DC Hydromorphone HCl (Dilaudid) 1 mg PRN Q4HRS PRN IV SEVERE PAIN Last administered on 05/04/17 11:13; Start 05/03/17 at 09:45 Morphine Sulfate (Ms Contin) 15 mg BID PO Last administered on 05/04/17 21:35 ; Start 05/03/17 at 09:45 Metoprolol Tartrate (Lopressor) 12.5 mg Q6HRS PO Last administered on 11:14; Start 05/03/17 at 19:00; Stop 05/04/17 at 12:51; Status DC Info 1 each PRN DAILY PRN MC SEE COMMENTS Last administered on 05/05/17 14:06 ; Start 05/04/17 at 11:15 Metoprolol Tartrate (Lopressor) 25 mg BID PO ; Start 05/04/17 at 21:00 Magnesium Sulfate/ Dextrose 50 ml @ 25 mls/hr 1X ONCE IV Last administered on 05/04/17 15:46; Start 05/04/17 at 16:00; Stop 05/04/17 at 17:59; Status DC Amino Acids/ Glycerin/ Electrolytes 1,000 ml @ 80 mls/hr [id number] IV Last administered on 05/05/17 05:32; Start 05/04/17 at 16:00; Stop 05/05/17 at 21:59 ; Status DC Amino Acids/ Glycerin/ Electrolytes 1,000 ml @ 80 mls/hr [id number] IV ; Start at 15:30; Status UNV Sodium Chloride 1,000 ml @ 100 mls/hr Q10H IV Last administered on 05/05/17 16:32; Start 05/04/17 at 16:00; Stop 05/06/17 at 01:03; Status DC Albumin Human 500 ml @ 100 mls/hr 1X ONCE IV Last administered on 05/05/17 00:05; Start 05/04/17 at 22:00; Stop 05/05/17 at 02:59; Status DC Lidocaine HCl (Glydo (Lidocaine) Jelly) 1 emelia 1X ONCE MM Last administered on 05/05/17 08:30; Start 05/05/17 at 08:30; Stop 05/05/17 at 08:35; Status DC Throat Lozenges (Chloraseptic) 1 spray PRN Q2HR PRN PO SORE THROAT; Start 05/05 at 08:30 Non-Formulary Medication 1 each DAILY PO ; Start 05/06/17 at 09:00; Stop at 09:00; Status DC Non-Formulary Medication 1 tab QHS PO ; Start 05/05/17 at 21:00; Stop 05/05/17 at 21:00; Status DC Benzocaine (Hurricaine One) 1 spray 1X ONCE MM Last administered on 05/05/17 10:30; Start 05/05/17 at 10:30; Stop 05/05/17 at 10:31; Status DC Throat Lozenges (Cepacol Sore Throat Lozenge) 1 west PRN Q2HRS PRN PO SORE THROAT; Start 05/05/17 at 11:00 Albumin Human 500 ml @ 100 mls/hr 1X ONCE IV Last administered on 05/05/17 13:24; Start 05/05/17 at 11:15; Stop 05/05/17 at 16:14; Status DC Sodium Chloride 1,000 ml @ 1,000 mls/hr 1X ONCE IV ; Start 05/05/17 at 11:30; Stop 05/05/17 at 12:29; Status DC Famotidine (Pepcid) 20 mg BID IVP Last administered on 05/06/17 08:15; Start 05/05/17 at 12:00 Amiodarone HCl 900 mg/Dextrose 518 ml @ 0 mls/hr CONT PRN IV SEE I/O RECORD Last administered on 05/05/17 13:17; Start 05/05/17 at 12:15; Stop 05/05/17 at 13:17; Status DC Amiodarone HCl 150 mg/Dextrose 103 ml @ 618 mls/hr 1X ONCE IV Last administered on 05/05/17 12:30; Start 05/05/17 at 12:30; Stop 05/05/17 at 12:39 ; Status DC Potassium Phosphate 13.6 mmol/Sodium Chloride 104.5333 ml @ 52.267 m... Q2H IV ; Start 05/05/17 at 14:30; Stop 05/05/17 at 16:29; Status DC Sodium Chloride 90 meq/Potassium Chloride 50 meq/ Potassium Phosphate 17 mmol/ Magnesium Sulfate 10 meq/Calcium Gluconate 5 meq/ Multivitamins 10 ml/Chromium/ Copper/Manganese/ Seleni/Zn 1 ml/ Total Parenteral Nutrition/Amino Acids/ Dextrose/ Fat Emulsion Intravenous 1,512 ml @ 63 mls/hr TPN CONT IV Last administered on 05/05/17 21:46; Start 05/05/17 at 22:00; Stop 05/06/17 at 21:59 Iohexol (Omnipaque 300 Mg/ml) 60 ml 1X ONCE IV Last administered on 05/05/17 14:50; Start 05/05/17 at 14:45; Stop 05/05/17 at 14:46; Status DC Info (Do NOT chart on this entry -- for MONITORING) 1 each PRN DAILY PRN MC SEE COMMENTS; Start 05/05/17 at 14:45; Stop 05/07/17 at 14:44 Sodium Chloride 1,000 ml @ 2,000 mls/hr 1X ONCE IV Last administered on 16:33; Start 05/05/17 at 16:00; Stop 05/05/17 at 16:29; Status DC Vancomycin HCl (Vanco Per Pharmacy) 1 each PRN DAILY PRN MC SEE COMMENTS Last administered on 05/06/17 08:05; Start 05/05/17 at 16:00 Piperacillin Sod/ Tazobactam Sod (Zosyn Per Pharmacy) 1 each PRN DAILY PRN MC SEE COMMENTS; Start 05/05/17 at 16:00 Piperacillin Sod/ Tazobactam Sod 4.5 gm/Sodium Chloride 100 ml @ 200 mls/hr Q6HRS IV Last administered on 05/06/17 05:35; Start 05/05/17 at 17:00 Vancomycin HCl 1.75 gm/Sodium Chloride 500 ml @ 250 mls/hr 1X ONCE IV Last administered on 05/05/17 16:30; Start 05/05/17 at 17:00; Stop 05/05/17 at 18:59 ; Status DC Potassium Chloride 50 ml @ 50 mls/hr Q1H IV Last administered on 05/05/17 16: 59; Start 05/05/17 at 16:30; Stop 05/05/17 at 19:29; Status DC Vancomycin HCl 1.25 gm/Sodium Chloride 250 ml @ 167 mls/hr Q12H IV Last administered on 05/06/17 06:08; Start 05/06/17 at 06:00 Vancomycin HCl 1 each 1X ONCE MC ; Start 05/07/17 at 05:30; Stop 05/07/17 at 05 :31 Norepinephrine Bitartrate 250 ml @ As Directed STK-MED ONCE IV ; Start at 16:22; Stop 05/05/17 at 16:23; Status DC Norepinephrine Bitartrate 250 ml @ 0 mls/hr CONT PRN IV SEE I/O RECORD; Start 05/05/17 at 16:45 Vasopressin 40 unit/Dextrose 102 ml @ 6 mls/hr CONT PRN IV SEE I/O RECORD Last administered on 05/05/17t 22:10; Start 05/05/17 at 17:00 Phenylephrine HCl 20 mg/Sodium Chloride 252 ml @ 0 mls/hr CONT PRN IV SEE I/O RECORD Last administered on 05/06/17t 06:22; Start 05/05/17 at 17:00; Stop 05/06 at 08:00; Status DC Propofol 0 ml @ As Directed STK-MED ONCE IV ; Start 05/05/17 at 17:21; Stop at 17:22; Status DC Lidocaine HCl (Lidocaine Pf 2% Vial) 5 ml STK-MED ONCE .ROUTE ; Start 05/05/17 at 17:21; Stop 05/05/17 at 17:22; Status DC Fentanyl Citrate (Fentanyl 2ml Vial) 100 mcg STK-MED ONCE .ROUTE ; Start at 17:22; Stop 05/05/17 at 17:23; Status DC Succinylcholine Chloride (Anectine) 200 mg STK-MED ONCE .ROUTE ; Start 05/05/17 at 17:22; Stop 05/05/17 at 17:23; Status DC Rocuronium [place] (Zemuron) 50 mg STK-MED ONCE .ROUTE ; Start 05/05/17 at 17:22 ; Stop 05/05/17 at 17:23; Status DC Etomidate (Amidate) 20 mg STK-MED ONCE IV ; Start 05/05/17 at 17:25; Stop at 17:26; Status DC Desflurane (Suprane) 60 ml STK-MED ONCE IH ; Start 05/05/17 at 18:02; Stop 05/05 at 18:03; Status DC Rocuronium [place] (Zemuron) 50 mg STK-MED ONCE .ROUTE ; Start 05/05/17 at 18:52 ; Stop 05/05/17 at 18:53; Status DC Phenylephrine HCl (Bhargav-Synephrine Inj) 10 mg STK-MED ONCE .ROUTE ; Start at 19:53; Stop 05/05/17 at 19:54; Status DC Propofol 100 ml @ 0 mls/hr CONT PRN IV SEE I/O RECORD Last administered on 05/05 21:47; Start 05/05/17 at 21:30 Midazolam HCl 100 ml @ 0 mls/hr CONT PRN IV SEE I/O RECORD Last administered on 05/06/17 06:08; Start 05/05/17 at 22:00 Sodium Bicarbonate 150 meq/Dextrose 1,150 ml @ 75 mls/hr [id number] IV Last administered on 05/06/17 01:22; Start 05/06/17 at 02:00 Micafungin Sodium 100 mg/Dextrose 100 ml @ 100 mls/hr Q24H IV Last administered on 05/06/17 08:37; Start 05/06/17 at 08:00 Phenylephrine HCl 80 mg/Sodium Chloride 258 ml @ 0 mls/hr CONT PRN IV SEE I/O RECORD Last administered on 05/06/17 08:16; Start 05/06/17 at 08:00 Potassium Phosphate 10 mmol/ Sodium Chloride 103.3333 ml @ 51.667 m... Q2H IV ; Start 05/06/17 at 08:30; Stop 05/06/17 at 12:29 Active Scripts Active Reported Melatonin 3 Mg Tablet 1 Tab PO QHS Move Free [facility] Tablet (Glucosam/Chond/Hyalu/Cf Borate) 1 Each Tablet 1 Each PO DAILY Digoxin 125 Mcg Tablet 1 Tab PO DAILY Prednisone 10 Mg Tablet 10 Mg PO DAILY Allergies Allergies: Coded Allergies: No Known Drug Allergies (Unverified , 04/29/17) Physical Exam General: mild distress Heart: Other Abdomen: Other (tender/ absent bs) Extremities: No clubbing, No edema Skin: No rashes Vitals VITALS Vital Signs Date Time Temp Pulse Resp B/P (MAP) Pulse Ox O2 Delivery O2 Flow Rate FiO2 05/06/17 08:54 98 Ventilator 6/28/17 08:44 32 05/06/17 08:14 30.0 05/06/17 08:00 112 103/63 (76) 05/06/17 04:00 98.6 98.6 Labs Labs Laboratory Tests Test 05/04/17 11:35 05/04/17 15:00 05/04/17 21:00 05/05/17 08:40 Sodium Level 134 mmol/L (136-145) 130 mmol/L (136-145) 131 mmol/L (136-145) Potassium Level 4.4 mmol/L (3.5-5.1) 4.2 mmol/L (3.5-5.1) 3.7 mmol/L (3.5-5.1) Chloride Level 97 mmol/L (98-107) 95 mmol/L (98-107) 97 mmol/L (98-107) Carbon Dioxide Level 26 mmol/L (21-32) 25 mmol/L (21-32) 26 mmol/L (21-32) Anion Gap 11 (6-14) 10 (6-14) 8 (6-14) Blood Urea Nitrogen 22 mg/dL (8-26) 30 mg/dL (8-26) 33 mg/dL (8-26) Creatinine 1.3 mg/dL (0.7-1.3) 1.8 mg/dL (0.7-1.3) 1.3 mg/dL (0.7-1.3) Estimated GFR (Cockcroft-Gault) 54.4 37.4 54.4 Glucose Level 118 mg/dL (70-99) 119 mg/dL (70-99) 107 mg/dL (70-99) Calcium Level 9.4 mg/dL (8.5-10.1) 9.6 mg/dL (8.5-10.1) 9.0 mg/dL (8.5-10.1) Phosphorus Level 4.1 mg/dL (2.6-4.7) 2.5 mg/dL (2.6-4.7) Magnesium Level 1.6 mg/dL (1.8-2.4) 2.0 mg/dL (1.8-2.4) Urine Color Marcia Urine Clarity Turbid Urine pH 5.5 Urine Specific Matheny 1.025 Urine Protein 30 mg/dL (NEG-TRACE) Urine Glucose (UA) Negative mg/dL (NEG) Urine Ketones (Stick) 15 mg/dL (NEG) Urine Blood Negative (NEG) Urine Nitrite Negative (NEG) Urine Bilirubin Moderate (NEG) Urine Urobilinogen Dipstick 0.2 mg/dL (0.2 mg/dL) Urine Leukocyte Esterase Negative (NEG) Urine RBC 0 /HPF (0-2) Urine WBC Occ /HPF (0-4) Urine Squamous Epithelial Cells Occ /LPF Urine Bacteria 0 /HPF (0-FEW) Urine Hyaline Casts Occasional /HPF Urine Mucus Slight /LPF White Blood Count 8.6 x10^3/uL (4.0-11.0) 7.0 x10^3/uL (4.0-11.0) Red Blood Count 4.56 x10^6/uL (4.30-5.70) 3.81 x10^6/uL (4.30-5.70) Hemoglobin 15.2 g/dL (13.0-17.5) 12.8 g/dL (13.0-17.5) Hematocrit 45.5 % (39.0-53.0) 37.1 % (39.0-53.0) Mean Corpuscular Volume 100 fL (79-100) 98 fL (79-100) Mean Corpuscular Hemoglobin 33 pg (25-35) 34 pg (25-35) Mean Corpuscular Hemoglobin Concent 33 g/dL (31-37) 35 g/dL (31-37) Red Cell Distribution Width 16.0 % (11.5-14.5) 16.2 % (11.5-14.5) Platelet Count 242 x10^3/uL (140-400) 205 x10^3/uL (140-400) Neutrophils (%) (Auto) 81 % (31-73) 85 % (31-73) Lymphocytes (%) (Auto) 13 % (24-48) 10 % (24-48) Monocytes (%) (Auto) 6 % (0-9) 5 % (0-9) Eosinophils (%) (Auto) 0 % (0-3) 0 % (0-3) Basophils (%) (Auto) 0 % (0-3) 0 % (0-3) Neutrophils # (Auto) 7.0 x10^3uL (1.8-7.7) 6.0 x10^3uL (1.8-7.7) Lymphocytes # (Auto) 1.1 x10^3/uL (1.0-4.8) 0.7 x10^3/uL (1.0-4.8) Monocytes # (Auto) 0.5 x10^3/uL (0.0-1.1) 0.3 x10^3/uL (0.0-1.1) Eosinophils # (Auto) 0.0 x10^3/uL (0.0-0.7) 0.0 x10^3/uL (0.0-0.7) Basophils # (Auto) 0.0 x10^3/uL (0.0-0.2) 0.0 x10^3/uL (0.0-0.2) Segmented Neutrophils % 11 % (35-66) Band Neutrophils % 55 % (0-9) Lymphocytes % 21 % (24-48) Monocytes % 2 % (0-10) Eosinophils % 1 % (0-5) Metamyelocytes % 6 % (0-0) Myelocytes % 4 % (0-0) Platelet Estimate Adequate (ADEQUATE) Albumin 2.6 g/dL (3.4-5.0) Test 05/05/17 15:30 05/05/17 21:55 05/05/17 22:45 05/06/17 05:45 White Blood Count 5.0 x10^3/uL (4.0-11.0) 17.1 x10^3/uL (4.0-11.0) Red Blood Count 2.79 x10^6/uL (4.30-5.70) 3.56 x10^6/uL (4.30-5.70) Hemoglobin 9.4 g/dL (13.0-17.5) 11.7 g/dL (13.0-17.5) Hematocrit 27.8 % (39.0-53.0) 35.9 % (39.0-53.0) Mean Corpuscular Volume 99 fL (79-100) 101 fL (79-100) Mean Corpuscular Hemoglobin 34 pg (25-35) 33 pg (25-35) Mean Corpuscular Hemoglobin Concent 34 g/dL (31-37) 33 g/dL (31-37) Red Cell Distribution Width 15.6 % (11.5-14.5) 16.2 % (11.5-14.5) Platelet Count 140 x10^3/uL (140-400) 190 x10^3/uL (140-400) Neutrophils (%) (Auto) 91 % (31-73) 92 % (31-73) Lymphocytes (%) (Auto) 5 % (24-48) 6 % (24-48) Monocytes (%) (Auto) 3 % (0-9) 1 % (0-9) Eosinophils (%) (Auto) 0 % (0-3) 0 % (0-3) Basophils (%) (Auto) 0 % (0-3) 0 % (0-3) Neutrophils # (Auto) 4.5 x10^3uL (1.8-7.7) 15.8 x10^3uL (1.8-7.7) Lymphocytes # (Auto) 0.3 x10^3/uL (1.0-4.8) 1.1 x10^3/uL (1.0-4.8) Monocytes # (Auto) 0.2 x10^3/uL (0.0-1.1) 0.2 x10^3/uL (0.0-1.1) Eosinophils # (Auto) 0.0 x10^3/uL (0.0-0.7) 0.0 x10^3/uL (0.0-0.7) Basophils # (Auto) 0.0 x10^3/uL (0.0-0.2) 0.0 x10^3/uL (0.0-0.2) Prothrombin Time 18.7 SEC (11.7-14.0) Prothromb Time International Ratio 1.7 (0.8-1.1) Sodium Level 134 mmol/L (136-145) 134 mmol/L (136-145) Potassium Level 2.5 mmol/L (3.5-5.1) 4.2 mmol/L (3.5-5.1) 4.1 mmol/L (3.5-5.1) Chloride Level 102 mmol/L (98-107) 105 mmol/L (98-107) Carbon Dioxide Level 22 mmol/L (21-32) 20 mmol/L (21-32) Anion Gap 10 (6-14) 9 (6-14) Blood Urea Nitrogen 25 mg/dL (8-26) 23 mg/dL (8-26) Creatinine 0.8 mg/dL (0.7-1.3) 1.0 mg/dL (0.7-1.3) Estimated GFR (Cockcroft-Gault) 95.3 73.7 Glucose Level 84 mg/dL (70-99) 202 mg/dL (70-99) Lactic Acid Level 2.0 mmol/L (0.4-2.0) 4.0 mmol/L (0.4-2.0) Calcium Level 6.1 mg/dL (8.5-10.1) 7.8 mg/dL (8.5-10.1) O2 Saturation 99 % (92-99) Arterial Blood pH 7.32 (7.35-7.45) Arterial Blood pCO2 at Patient Temp 35 mmHg (35-46) Arterial Blood pO2 at Patient Temp 223 mmHg (65-108) Arterial Blood HCO3 17 mmol/L (21-28) Arterial Blood Base Excess -8 mmol/L (-3-3) FiO2 80 Segmented Neutrophils % 17 % (35-66) Band Neutrophils % 65 % (0-9) Lymphocytes % 8 % (24-48) Metamyelocytes % 10 % (0-0) Platelet Estimate Adequate (ADEQUATE) Phosphorus Level 2.0 mg/dL (2.6-4.7) Magnesium Level 1.8 mg/dL (1.8-2.4) Test 05/06/17 08:00 O2 Saturation 96 % (92-99) Arterial Blood pH 7.40 (7.35-7.45) Arterial Blood pCO2 at Patient Temp 28 mmHg (35-46) Arterial Blood pO2 at Patient Temp 79 mmHg (65-108) Arterial Blood HCO3 17 mmol/L (21-28) Arterial Blood Base Excess -7 mmol/L (-3-3) FiO2 30 Laboratory Tests Test 05/05/17 15:30 05/05/17 21:55 05/05/17 22:45 05/06/17 05:45 White Blood Count 5.0 x10^3/uL (4.0-11.0) 17.1 x10^3/uL (4.0-11.0) Red Blood Count 2.79 x10^6/uL (4.30-5.70) 3.56 x10^6/uL (4.30-5.70) Hemoglobin 9.4 g/dL (13.0-17.5) 11.7 g/dL (13.0-17.5) Hematocrit 27.8 % (39.0-53.0) 35.9 % (39.0-53.0) Mean Corpuscular Volume 99 fL (79-100) 101 fL (79-100) Mean Corpuscular Hemoglobin 34 pg (25-35) 33 pg (25-35) Mean Corpuscular Hemoglobin Concent 34 g/dL (31-37) 33 g/dL (31-37) Red Cell Distribution Width 15.6 % (11.5-14.5) 16.2 % (11.5-14.5) Platelet Count 140 x10^3/uL (140-400) 190 x10^3/uL (140-400) Neutrophils (%) (Auto) 91 % (31-73) 92 % (31-73) Lymphocytes (%) (Auto) 5 % (24-48) 6 % (24-48) Monocytes (%) (Auto) 3 % (0-9) 1 % (0-9) Eosinophils (%) (Auto) 0 % (0-3) 0 % (0-3) Basophils (%) (Auto) 0 % (0-3) 0 % (0-3) Neutrophils # (Auto) 4.5 x10^3uL (1.8-7.7) 15.8 x10^3uL (1.8-7.7) Lymphocytes # (Auto) 0.3 x10^3/uL (1.0-4.8) 1.1 x10^3/uL (1.0-4.8) Monocytes # (Auto) 0.2 x10^3/uL (0.0-1.1) 0.2 x10^3/uL (0.0-1.1) Eosinophils # (Auto) 0.0 x10^3/uL (0.0-0.7) 0.0 x10^3/uL (0.0-0.7) Basophils # (Auto) 0.0 x10^3/uL (0.0-0.2) 0.0 x10^3/uL (0.0-0.2) Prothrombin Time 18.7 SEC (11.7-14.0) Prothromb Time International Ratio 1.7 (0.8-1.1) Sodium Level 134 mmol/L (136-145) 134 mmol/L (136-145) Potassium Level 2.5 mmol/L (3.5-5.1) 4.2 mmol/L (3.5-5.1) 4.1 mmol/L (3.5-5.1) Chloride Level 102 mmol/L (98-107) 105 mmol/L (98-107) Carbon Dioxide Level 22 mmol/L (21-32) 20 mmol/L (21-32) Anion Gap 10 (6-14) 9 (6-14) Blood Urea Nitrogen 25 mg/dL (8-26) 23 mg/dL (8-26) Creatinine 0.8 mg/dL (0.7-1.3) 1.0 mg/dL (0.7-1.3) Estimated GFR (Cockcroft-Gault) 95.3 73.7 Glucose Level 84 mg/dL (70-99) 202 mg/dL (70-99) Lactic Acid Level 2.0 mmol/L (0.4-2.0) 4.0 mmol/L (0.4-2.0) Calcium Level 6.1 mg/dL (8.5-10.1) 7.8 mg/dL (8.5-10.1) O2 Saturation 99 % (92-99) Arterial Blood pH 7.32 (7.35-7.45) Arterial Blood pCO2 at Patient Temp 35 mmHg (35-46) Arterial Blood pO2 at Patient Temp 223 mmHg (65-108) Arterial Blood HCO3 17 mmol/L (21-28) Arterial Blood Base Excess -8 mmol/L (-3-3) FiO2 80 Segmented Neutrophils % 17 % (35-66) Band Neutrophils % 65 % (0-9) Lymphocytes % 8 % (24-48) Metamyelocytes % 10 % (0-0) Platelet Estimate Adequate (ADEQUATE) Phosphorus Level 2.0 mg/dL (2.6-4.7) Magnesium Level 1.8 mg/dL (1.8-2.4) Test 05/06/17 08:00 O2 Saturation 96 % (92-99) Arterial Blood pH 7.40 (7.35-7.45) Arterial Blood pCO2 at Patient Temp 28 mmHg (35-46) Arterial Blood pO2 at Patient Temp 79 mmHg (65-108) Arterial Blood HCO3 17 mmol/L (21-28) Arterial Blood Base Excess -7 mmol/L (-3-3) FiO2 30 Assessment/Plan Assessment/Plan 1. Acute respiratory failure, expected post -op 2. septic shock 3. Metabolic acidosis/ lactic acidosis 4. chronic A-Fib 5. Crohn's Dx, who has h/o perforated viscous and underwent lap with resection . Cults + for H para/Clostridium Ramsom/Bacteroides/Strep bovis. D/cd home with Augmentin. Presented electively for an extended right colon resection with ileocolotomy 04/29. Taken back to OR ruptured ileo-colic anastomosis, fecal impaction s/p rigid procto, disimpaction, ex lap, resection of ileo-colic anastomosis, end ileostomy, Evans's pouch, Plan 1. AC mode 2. Not ready for weaning 3. add levophed, wean Bhargav, continue vasopressin 4. HCO3 drip 5. BS antibiotic per ID 6. Add fentanyl 7. volume challenge 8. TPN, add Na acetate 9. d/w RN cct 37 min KEVIN LORA MD May 06, 2017 10:50
[2017-05-06] MEDS: IV NORMAL SALINE 1000ML BAG 1,000 ML IV SCH (11:00)
[2017-05-06] MEDS: NOREPINEPHRIN PREMIX 250 ML IV PRN ×2 (11:27→19:03)
[2017-05-06] MEDS: POTASSIUM PHOSPHATE DIBASIC 10 MMOL in IV NORMAL SALINE 100ML 100 ML IV SCH ×2 (11:28→16:11)
[2017-05-06] MEDS: TPN PER PHARMACY MC PRN (12:38)
--- NOTE | 2017-05-06 12:46 | PDOC ---
PROGRESS NOTES Chief Complaint Chief Complaint s/p R colectomy Crohn's dz ASSESSMENT AND PLAN: 1. s/p R part colectomy: on 04/[address] Garcia. ex lap on 05/05, now with R ileostomy 2. Abd pain: post surgical, off [employer] dilaudid on 05/04; now intub.ed, sedated since 2nd surgery 3. Respir failure: vented. Pulm following 4. Afib with RVR: improved, but HR remains >100. cardiology managing rate controllers 5. Hypotension: resolved 6. Chronic atrial fib 7. CHF: diastolic, nl EF 8. Leukocytosis: reactive: significantly up since surgery yesterday. on empiric Zosyn, vanco, micafungin 9. Hyponatremia: mild. monitor with ongoing IVF 10. Coagulopathy: elevated INR pro-op. monitor; may need vit K. no overt bleed 11. Prophylaxis: PPI History of Present Illness History of Present Illness Vitals Vitals Vital Signs Date Time Temp Pulse Resp B/P (MAP) Pulse Ox O2 Delivery O2 Flow Rate FiO2 05/06/17 11:19 30 30.0 05/06/17 11:15 97 Ventilator 05/06/17 08:00 112 103/63 (76) 05/06/17 04:00 98.6 98.6 Physical Exam General: mild distress Heart: Other Lungs: Clear Abdomen: Other (tender/ absent bs) Extremities: No clubbing, No edema Skin: No rashes Labs LABS Laboratory Tests Test 05/05/17 15:30 05/05/17 21:55 05/05/17 22:45 05/06/17 05:45 White Blood Count 5.0 x10^3/uL (4.0-11.0) 17.1 x10^3/uL (4.0-11.0) Red Blood Count 2.79 x10^6/uL (4.30-5.70) 3.56 x10^6/uL (4.30-5.70) Hemoglobin 9.4 g/dL (13.0-17.5) 11.7 g/dL (13.0-17.5) Hematocrit 27.8 % (39.0-53.0) 35.9 % (39.0-53.0) Mean Corpuscular Volume 99 fL (79-100) 101 fL (79-100) Mean Corpuscular Hemoglobin 34 pg (25-35) 33 pg (25-35) Mean Corpuscular Hemoglobin Concent 34 g/dL (31-37) 33 g/dL (31-37) Red Cell Distribution Width 15.6 % (11.5-14.5) 16.2 % (11.5-14.5) Platelet Count 140 x10^3/uL (140-400) 190 x10^3/uL (140-400) Neutrophils (%) (Auto) 91 % (31-73) 92 % (31-73) Lymphocytes (%) (Auto) 5 % (24-48) 6 % (24-48) Monocytes (%) (Auto) 3 % (0-9) 1 % (0-9) Eosinophils (%) (Auto) 0 % (0-3) 0 % (0-3) Basophils (%) (Auto) 0 % (0-3) 0 % (0-3) Neutrophils # (Auto) 4.5 x10^3uL (1.8-7.7) 15.8 x10^3uL (1.8-7.7) Lymphocytes # (Auto) 0.3 x10^3/uL (1.0-4.8) 1.1 x10^3/uL (1.0-4.8) Monocytes # (Auto) 0.2 x10^3/uL (0.0-1.1) 0.2 x10^3/uL (0.0-1.1) Eosinophils # (Auto) 0.0 x10^3/uL (0.0-0.7) 0.0 x10^3/uL (0.0-0.7) Basophils # (Auto) 0.0 x10^3/uL (0.0-0.2) 0.0 x10^3/uL (0.0-0.2) Prothrombin Time 18.7 SEC (11.7-14.0) Prothromb Time International Ratio 1.7 (0.8-1.1) Sodium Level 134 mmol/L (136-145) 134 mmol/L (136-145) Potassium Level 2.5 mmol/L (3.5-5.1) 4.2 mmol/L (3.5-5.1) 4.1 mmol/L (3.5-5.1) Chloride Level 102 mmol/L (98-107) 105 mmol/L (98-107) Carbon Dioxide Level 22 mmol/L (21-32) 20 mmol/L (21-32) Anion Gap 10 (6-14) 9 (6-14) Blood Urea Nitrogen 25 mg/dL (8-26) 23 mg/dL (8-26) Creatinine 0.8 mg/dL (0.7-1.3) 1.0 mg/dL (0.7-1.3) Estimated GFR (Cockcroft-Gault) 95.3 73.7 Glucose Level 84 mg/dL (70-99) 202 mg/dL (70-99) Lactic Acid Level 2.0 mmol/L (0.4-2.0) 4.0 mmol/L (0.4-2.0) Calcium Level 6.1 mg/dL (8.5-10.1) 7.8 mg/dL (8.5-10.1) O2 Saturation 99 % (92-99) Arterial Blood pH 7.32 (7.35-7.45) Arterial Blood pCO2 at Patient Temp 35 mmHg (35-46) Arterial Blood pO2 at Patient Temp 223 mmHg (65-108) Arterial Blood HCO3 17 mmol/L (21-28) Arterial Blood Base Excess -8 mmol/L (-3-3) FiO2 80 Segmented Neutrophils % 17 % (35-66) Band Neutrophils % 65 % (0-9) Lymphocytes % 8 % (24-48) Metamyelocytes % 10 % (0-0) Platelet Estimate Adequate (ADEQUATE) Phosphorus Level 2.0 mg/dL (2.6-4.7) Magnesium Level 1.8 mg/dL (1.8-2.4) Test 05/06/17 08:00 O2 Saturation 96 % (92-99) Arterial Blood pH 7.40 (7.35-7.45) Arterial Blood pCO2 at Patient Temp 28 mmHg (35-46) Arterial Blood pO2 at Patient Temp 79 mmHg (65-108) Arterial Blood HCO3 17 mmol/L (21-28) Arterial Blood Base Excess -7 mmol/L (-3-3) FiO2 30 KAYLYNN CONNELL MD May 06, 2017 12:46
--- NOTE | 2017-05-06 15:37 | PDOC ---
SURGICAL PROGRESS NOTE Subjective pt seen earlier today on vent, sedated Vital Signs Vital Signs Date Time Temp Pulse Resp B/P (MAP) Pulse Ox O2 Delivery O2 Flow Rate FiO2 05/06/17 15:00 107 26 120/82 (95) 98 Ventilator 05/06/17 12:00 99.1 99.1 05/06/17 11:19 30.0 I&O Intake and Output 05/06/17 07:00 Intake Total 3125 ml Output Total 1741 ml Balance 1384 ml Intake Oral 0 ml IV Total 3125 ml Output Urine Total 941 ml Stool Total 240 ml Gastric Drainage Total 200 ml Drainage Total 360 ml PATIENT HAS A YANCEY: Yes Abdomen: Soft, Other (stoma viable with liguid output) Labs Laboratory Tests Test 05/04/17 21:00 05/05/17 08:40 05/05/17 15:30 05/05/17 21:55 White Blood Count 8.6 x10^3/uL (4.0-11.0) 7.0 x10^3/uL (4.0-11.0) 5.0 x10^3/uL (4.0-11.0) Red Blood Count 4.56 x10^6/uL (4.30-5.70) 3.81 x10^6/uL (4.30-5.70) 2.79 x10^6/uL (4.30-5.70) Hemoglobin 15.2 g/dL (13.0-17.5) 12.8 g/dL (13.0-17.5) 9.4 g/dL (13.0-17.5) Hematocrit 45.5 % (39.0-53.0) 37.1 % (39.0-53.0) 27.8 % (39.0-53.0) Mean Corpuscular Volume 100 fL (79-100) 98 fL (79-100) 99 fL (79-100) Mean Corpuscular Hemoglobin 33 pg (25-35) 34 pg (25-35) 34 pg (25-35) Mean Corpuscular Hemoglobin Concent 33 g/dL (31-37) 35 g/dL (31-37) 34 g/dL (31-37) Red Cell Distribution Width 16.0 % (11.5-14.5) 16.2 % (11.5-14.5) 15.6 % (11.5-14.5) Platelet Count 242 x10^3/uL (140-400) 205 x10^3/uL (140-400) 140 x10^3/uL (140-400) Neutrophils (%) (Auto) 81 % (31-73) 85 % (31-73) 91 % (31-73) Lymphocytes (%) (Auto) 13 % (24-48) 10 % (24-48) 5 % (24-48) Monocytes (%) (Auto) 6 % (0-9) 5 % (0-9) 3 % (0-9) Eosinophils (%) (Auto) 0 % (0-3) 0 % (0-3) 0 % (0-3) Basophils (%) (Auto) 0 % (0-3) 0 % (0-3) 0 % (0-3) Neutrophils # (Auto) 7.0 x10^3uL (1.8-7.7) 6.0 x10^3uL (1.8-7.7) 4.5 x10^3uL (1.8-7.7) Lymphocytes # (Auto) 1.1 x10^3/uL (1.0-4.8) 0.7 x10^3/uL (1.0-4.8) 0.3 x10^3/uL (1.0-4.8) Monocytes # (Auto) 0.5 x10^3/uL (0.0-1.1) 0.3 x10^3/uL (0.0-1.1) 0.2 x10^3/uL (0.0-1.1) Eosinophils # (Auto) 0.0 x10^3/uL (0.0-0.7) 0.0 x10^3/uL (0.0-0.7) 0.0 x10^3/uL (0.0-0.7) Basophils # (Auto) 0.0 x10^3/uL (0.0-0.2) 0.0 x10^3/uL (0.0-0.2) 0.0 x10^3/uL (0.0-0.2) Sodium Level 130 mmol/L (136-145) 131 mmol/L (136-145) 134 mmol/L (136-145) Potassium Level 4.2 mmol/L (3.5-5.1) 3.7 mmol/L (3.5-5.1) 2.5 mmol/L (3.5-5.1) 4.2 mmol/L (3.5-5.1) Chloride Level 95 mmol/L (98-107) 97 mmol/L (98-107) 102 mmol/L (98-107) Carbon Dioxide Level 25 mmol/L (21-32) 26 mmol/L (21-32) 22 mmol/L (21-32) Anion Gap 10 (6-14) 8 (6-14) 10 (6-14) Blood Urea Nitrogen 30 mg/dL (8-26) 33 mg/dL (8-26) 25 mg/dL (8-26) Creatinine 1.8 mg/dL (0.7-1.3) 1.3 mg/dL (0.7-1.3) 0.8 mg/dL (0.7-1.3) Estimated GFR (Cockcroft-Gault) 37.4 54.4 95.3 Glucose Level 119 mg/dL (70-99) 107 mg/dL (70-99) 84 mg/dL (70-99) Calcium Level 9.6 mg/dL (8.5-10.1) 9.0 mg/dL (8.5-10.1) 6.1 mg/dL (8.5-10.1) Segmented Neutrophils % 11 % (35-66) Band Neutrophils % 55 % (0-9) Lymphocytes % 21 % (24-48) Monocytes % 2 % (0-10) Eosinophils % 1 % (0-5) Metamyelocytes % 6 % (0-0) Myelocytes % 4 % (0-0) Platelet Estimate Adequate (ADEQUATE) Phosphorus Level 2.5 mg/dL (2.6-4.7) Magnesium Level 2.0 mg/dL (1.8-2.4) Albumin 2.6 g/dL (3.4-5.0) Prothrombin Time 18.7 SEC (11.7-14.0) Prothromb Time International Ratio 1.7 (0.8-1.1) Lactic Acid Level 2.0 mmol/L (0.4-2.0) Test 05/05/17 22:45 05/06/17 05:45 05/06/17 06:00 05/06/17 08:00 O2 Saturation 99 % (92-99) 96 % (92-99) Arterial Blood pH 7.32 (7.35-7.45) 7.40 (7.35-7.45) Arterial Blood pCO2 at Patient Temp 35 mmHg (35-46) 28 mmHg (35-46) Arterial Blood pO2 at Patient Temp 223 mmHg (65-108) 79 mmHg (65-108) Arterial Blood HCO3 17 mmol/L (21-28) 17 mmol/L (21-28) Arterial Blood Base Excess -8 mmol/L (-3-3) -7 mmol/L (-3-3) FiO2 80 30 White Blood Count 17.1 x10^3/uL (4.0-11.0) Red Blood Count 3.56 x10^6/uL (4.30-5.70) Hemoglobin 11.7 g/dL (13.0-17.5) Hematocrit 35.9 % (39.0-53.0) Mean Corpuscular Volume 101 fL (79-100) Mean Corpuscular Hemoglobin 33 pg (25-35) Mean Corpuscular Hemoglobin Concent 33 g/dL (31-37) Red Cell Distribution Width 16.2 % (11.5-14.5) Platelet Count 190 x10^3/uL (140-400) Neutrophils (%) (Auto) 92 % (31-73) Lymphocytes (%) (Auto) 6 % (24-48) Monocytes (%) (Auto) 1 % (0-9) Eosinophils (%) (Auto) 0 % (0-3) Basophils (%) (Auto) 0 % (0-3) Neutrophils # (Auto) 15.8 x10^3uL (1.8-7.7) Lymphocytes # (Auto) 1.1 x10^3/uL (1.0-4.8) Monocytes # (Auto) 0.2 x10^3/uL (0.0-1.1) Eosinophils # (Auto) 0.0 x10^3/uL (0.0-0.7) Basophils # (Auto) 0.0 x10^3/uL (0.0-0.2) Segmented Neutrophils % 17 % (35-66) Band Neutrophils % 65 % (0-9) Lymphocytes % 8 % (24-48) Metamyelocytes % 10 % (0-0) Platelet Estimate Adequate (ADEQUATE) Sodium Level 134 mmol/L (136-145) Potassium Level 4.1 mmol/L (3.5-5.1) Chloride Level 105 mmol/L (98-107) Carbon Dioxide Level 20 mmol/L (21-32) Anion Gap 9 (6-14) Blood Urea Nitrogen 23 mg/dL (8-26) Creatinine 1.0 mg/dL (0.7-1.3) Estimated GFR (Cockcroft-Gault) 73.7 Glucose Level 202 mg/dL (70-99) Lactic Acid Level 4.0 mmol/L (0.4-2.0) Calcium Level 7.8 mg/dL (8.5-10.1) Phosphorus Level 2.0 mg/dL (2.6-4.7) Magnesium Level 1.8 mg/dL (1.8-2.4) Nasal Screen MRSA (PCR) Negative (Negative) Laboratory Tests Test 05/05/17 21:55 05/05/17 22:45 05/06/17 05:45 05/06/17 06:00 Potassium Level 4.2 mmol/L (3.5-5.1) 4.1 mmol/L (3.5-5.1) O2 Saturation 99 % (92-99) Arterial Blood pH 7.32 (7.35-7.45) Arterial Blood pCO2 at Patient Temp 35 mmHg (35-46) Arterial Blood pO2 at Patient Temp 223 mmHg (65-108) Arterial Blood HCO3 17 mmol/L (21-28) Arterial Blood Base Excess -8 mmol/L (-3-3) FiO2 80 White Blood Count 17.1 x10^3/uL (4.0-11.0) Red Blood Count 3.56 x10^6/uL (4.30-5.70) Hemoglobin 11.7 g/dL (13.0-17.5) Hematocrit 35.9 % (39.0-53.0) Mean Corpuscular Volume 101 fL (79-100) Mean Corpuscular Hemoglobin 33 pg (25-35) Mean Corpuscular Hemoglobin Concent 33 g/dL (31-37) Red Cell Distribution Width 16.2 % (11.5-14.5) Platelet Count 190 x10^3/uL (140-400) Neutrophils (%) (Auto) 92 % (31-73) Lymphocytes (%) (Auto) 6 % (24-48) Monocytes (%) (Auto) 1 % (0-9) Eosinophils (%) (Auto) 0 % (0-3) Basophils (%) (Auto) 0 % (0-3) Neutrophils # (Auto) 15.8 x10^3uL (1.8-7.7) Lymphocytes # (Auto) 1.1 x10^3/uL (1.0-4.8) Monocytes # (Auto) 0.2 x10^3/uL (0.0-1.1) Eosinophils # (Auto) 0.0 x10^3/uL (0.0-0.7) Basophils # (Auto) 0.0 x10^3/uL (0.0-0.2) Segmented Neutrophils % 17 % (35-66) Band Neutrophils % 65 % (0-9) Lymphocytes % 8 % (24-48) Metamyelocytes % 10 % (0-0) Platelet Estimate Adequate (ADEQUATE) Sodium Level 134 mmol/L (136-145) Chloride Level 105 mmol/L (98-107) Carbon Dioxide Level 20 mmol/L (21-32) Anion Gap 9 (6-14) Blood Urea Nitrogen 23 mg/dL (8-26) Creatinine 1.0 mg/dL (0.7-1.3) Estimated GFR (Cockcroft-Gault) 73.7 Glucose Level 202 mg/dL (70-99) Lactic Acid Level 4.0 mmol/L (0.4-2.0) Calcium Level 7.8 mg/dL (8.5-10.1) Phosphorus Level 2.0 mg/dL (2.6-4.7) Magnesium Level 1.8 mg/dL (1.8-2.4) Nasal Screen MRSA (PCR) Negative (Negative) Test 05/06/17 08:00 O2 Saturation 96 % (92-99) Arterial Blood pH 7.40 (7.35-7.45) Arterial Blood pCO2 at Patient Temp 28 mmHg (35-46) Arterial Blood pO2 at Patient Temp 79 mmHg (65-108) Arterial Blood HCO3 17 mmol/L (21-28) Arterial Blood Base Excess -7 mmol/L (-3-3) FiO2 30 Assessment/Plan s/p ex lap for pelvic abscess continue supportive care appreciate consultants input Problems: RON GROSS MD May 06, 2017 15:37
[2017-05-06] MEDS: DIGOXIN 250 MCG TABLET. PO SCH (16:00)
[2017-05-06] MEDS ORDERED: FAMOTIDINE 20 MG/2 ML VIAL IVP SCH (21:00)
[2017-05-06] MEDS ORDERED: DEXTROSE 70% IV SCH ×11 (22:00)
[2017-05-06] MEDS ORDERED: AMINO ACIDS IV SCH ×11 (22:00)
[2017-05-06] MEDS ORDERED: TOTAL PARENTERAL NUTRITION IV SCH ×11 (22:00)
[2017-05-06] MEDS ORDERED: [UNRECOGNIZED DRUG - OTHER] IV SCH ×11 (22:00)
[2017-05-07] VITALS (27 sets, daily range): BP systolic 86–148; BP diastolic 58–80
[2017-05-07] MEDS: PIPERACILLIN/TAZOBACTAM 4.5 GM in IV NORMAL SALINE 100ML 100 ML IV SCH ×5 (00:09→23:44)
[2017-05-07] MEDS: VASOPRESSIN 40 UNIT in IV DEXTROSE 5% 100 ML IV PRN ×2 (02:42→19:41)
[2017-05-07] MEDS: SODIUM BICARBONATE VIAL 150 MEQ in IV DEXTROSE 5% 1,000 ML IV SCH (03:44)
[2017-05-07] MEDS: NOREPINEPHRIN PREMIX 250 ML IV PRN ×2 (03:44→14:20)
[2017-05-07] MEDS: MIDAZOLAM PREMIX 100 ML IV PRN (05:48)
[2017-05-07] MEDS: ENOXAPARIN 40 MG/0.4 ML SYRINGE. SQ SCH (05:48)
[2017-05-07 07:26] LABS: CALCIUM 8.1 mg/dL (8.5-10.1); CREATININE 0.8 mg/dL (0.7-1.3); GFR 95.3; PHOSPHORUS 1.8 mg/dL (2.6-4.7); POTASSIUM 3.5 mmol/L (3.5-5.1)
[2017-05-07] MEDS: VANCOMYCIN PER PHARMACY MC PRN ×2 (07:58→08:00)
[2017-05-07] MEDS: DIGOXIN 250 MCG TABLET. PO SCH (07:59)
[2017-05-07] MEDS: MORPHINE ER 15 MG TABLET.ER PO SCH ×2 (07:59→21:00)
--- NOTE | 2017-05-07 08:18 | PDOC ---
Infectious Disease Note Subjective Subjective Intubated/Sedated ROS ROS Unobtainable Vital Sign Vital Signs Vital Signs Date Time Temp Pulse Resp B/P (MAP) Pulse Ox O2 Delivery O2 Flow Rate FiO2 05/07/17 07:37 29 98 Ventilator 05/07/17 06:43 90/62 (71) 05/07/17 06:00 107 05/07/17 04:00 98.8 98.8 05/06/17 11:19 30.0 Physical Exam PHYSICAL EXAM GEN: Intubated/Sedated HEENT: ETT/OGT, PERRL, nml conj Neck supple LUNG - CTA CV - Tachy S1/S2 ABD: - ostomy with 3 drains. Right flank erythema and thicken skin - better. Wound dressed : Wagner. Some scrotal swelling EXT: No C/C/Bilat hand erythema IV: RIJ/PICC/right wrist art line SKIN no Gen rash NEURO: Intubated/Sedated Labs Lab Laboratory Tests Test 05/07/17 05:30 Sodium Level 136 mmol/L (136-145) Potassium Level 3.5 mmol/L (3.5-5.1) Chloride Level 104 mmol/L (98-107) Carbon Dioxide Level 26 mmol/L (21-32) Anion Gap 6 (6-14) Blood Urea Nitrogen 20 mg/dL (8-26) Creatinine 0.8 mg/dL (0.7-1.3) Estimated GFR (Cockcroft-Gault) 95.3 Glucose Level 156 mg/dL (70-99) Calcium Level 8.1 mg/dL (8.5-10.1) Phosphorus Level 1.8 mg/dL (2.6-4.7) Magnesium Level 2.1 mg/dL (1.8-2.4) Vancomycin Level Trough 12.6 mcg/mL (10.0-20.0) Vancomycin Last Dose Date 05/06/17 Vancomycin Last Dose Time 1800 Objective Assessment Yeast/Anaerobes on Gram stain 05/05 fro abdomen Sepsis on pressors (12 of Levophed) Leukocytosis - post op vs ID Ruptured ileo-colic anastomosis, fecal impaction s/p rigid procto, disimpaction , ex lap, resection of ileo-colic anastomosis, end ileostomy, Evans's pouch, DALLIN 05/05 Right flank ? 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
[2017-05-07 08:29] LABS: HCO3 ABG 26 mmol/L (21-28); PCO2 ABG 31 mmHg (35-46); PH ABG 7.54 (7.35-7.45); PO2 ABG 86 mmHg (65-108); SAT O2 ABG 97 % (92-99)
[2017-05-07] MEDS: VANCOMYCIN 1 GM in IV NORMAL SALINE 250ML 250 ML IV SCH ×2 (08:50→16:15)
[2017-05-07] MEDS: FAMOTIDINE 20 MG/2 ML VIAL IVP SCH ×2 (08:51→21:06)
[2017-05-07] MEDS: MICAFUNGIN 100 MG in IV DEXTROSE 5% 100 ML IV SCH (08:51)
[2017-05-07] MEDS: IV NORMAL SALINE 1000ML BAG 1,000 ML IV SCH ×2 (08:52→10:46)
--- NOTE | 2017-05-07 10:22 | PDOC ---
PULMONARY PROGRESS NOTES Subjective REMAINS INTUBATED/SEDATED STILL IN SHOCK, ON TWO PRESSORS Vitals Vital Signs Date Time Temp Pulse Resp B/P (MAP) Pulse Ox O2 Delivery O2 Flow Rate FiO2 05/07/17 10:00 98 26 101/70 (80) 96 Ventilator 05/07/17 08:00 97.9 97.9 05/06/17 11:19 30.0 General: No acute distress Lungs: Other (decrease bs) Cardiovascular: S1 Abdomen: Other (firm) Extremities: No Edema Skin: Warm Labs Laboratory Tests Test 05/05/17 15:30 05/05/17 21:55 05/05/17 22:45 05/06/17 05:45 White Blood Count 5.0 x10^3/uL (4.0-11.0) 17.1 x10^3/uL (4.0-11.0) Red Blood Count 2.79 x10^6/uL (4.30-5.70) 3.56 x10^6/uL (4.30-5.70) Hemoglobin 9.4 g/dL (13.0-17.5) 11.7 g/dL (13.0-17.5) Hematocrit 27.8 % (39.0-53.0) 35.9 % (39.0-53.0) Mean Corpuscular Volume 99 fL (79-100) 101 fL (79-100) Mean Corpuscular Hemoglobin 34 pg (25-35) 33 pg (25-35) Mean Corpuscular Hemoglobin Concent 34 g/dL (31-37) 33 g/dL (31-37) Red Cell Distribution Width 15.6 % (11.5-14.5) 16.2 % (11.5-14.5) Platelet Count 140 x10^3/uL (140-400) 190 x10^3/uL (140-400) Neutrophils (%) (Auto) 91 % (31-73) 92 % (31-73) Lymphocytes (%) (Auto) 5 % (24-48) 6 % (24-48) Monocytes (%) (Auto) 3 % (0-9) 1 % (0-9) Eosinophils (%) (Auto) 0 % (0-3) 0 % (0-3) Basophils (%) (Auto) 0 % (0-3) 0 % (0-3) Neutrophils # (Auto) 4.5 x10^3uL (1.8-7.7) 15.8 x10^3uL (1.8-7.7) Lymphocytes # (Auto) 0.3 x10^3/uL (1.0-4.8) 1.1 x10^3/uL (1.0-4.8) Monocytes # (Auto) 0.2 x10^3/uL (0.0-1.1) 0.2 x10^3/uL (0.0-1.1) Eosinophils # (Auto) 0.0 x10^3/uL (0.0-0.7) 0.0 x10^3/uL (0.0-0.7) Basophils # (Auto) 0.0 x10^3/uL (0.0-0.2) 0.0 x10^3/uL (0.0-0.2) Prothrombin Time 18.7 SEC (11.7-14.0) Prothromb Time International Ratio 1.7 (0.8-1.1) Sodium Level 134 mmol/L (136-145) 134 mmol/L (136-145) Potassium Level 2.5 mmol/L (3.5-5.1) 4.2 mmol/L (3.5-5.1) 4.1 mmol/L (3.5-5.1) Chloride Level 102 mmol/L (98-107) 105 mmol/L (98-107) Carbon Dioxide Level 22 mmol/L (21-32) 20 mmol/L (21-32) Anion Gap 10 (6-14) 9 (6-14) Blood Urea Nitrogen 25 mg/dL (8-26) 23 mg/dL (8-26) Creatinine 0.8 mg/dL (0.7-1.3) 1.0 mg/dL (0.7-1.3) Estimated GFR (Cockcroft-Gault) 95.3 73.7 Glucose Level 84 mg/dL (70-99) 202 mg/dL (70-99) Lactic Acid Level 2.0 mmol/L (0.4-2.0) 4.0 mmol/L (0.4-2.0) Calcium Level 6.1 mg/dL (8.5-10.1) 7.8 mg/dL (8.5-10.1) O2 Saturation 99 % (92-99) Arterial Blood pH 7.32 (7.35-7.45) Arterial Blood pCO2 at Patient Temp 35 mmHg (35-46) Arterial Blood pO2 at Patient Temp 223 mmHg (65-108) Arterial Blood HCO3 17 mmol/L (21-28) Arterial Blood Base Excess -8 mmol/L (-3-3) FiO2 80 Segmented Neutrophils % 17 % (35-66) Band Neutrophils % 65 % (0-9) Lymphocytes % 8 % (24-48) Metamyelocytes % 10 % (0-0) Platelet Estimate Adequate (ADEQUATE) Phosphorus Level 2.0 mg/dL (2.6-4.7) Magnesium Level 1.8 mg/dL (1.8-2.4) Test 05/06/17 06:00 05/06/17 08:00 05/07/17 05:30 Nasal Screen MRSA (PCR) Negative (Negative) O2 Saturation 96 % (92-99) Arterial Blood pH 7.40 (7.35-7.45) Arterial Blood pCO2 at Patient Temp 28 mmHg (35-46) Arterial Blood pO2 at Patient Temp 79 mmHg (65-108) Arterial Blood HCO3 17 mmol/L (21-28) Arterial Blood Base Excess -7 mmol/L (-3-3) FiO2 30 Sodium Level 136 mmol/L (136-145) Potassium Level 3.5 mmol/L (3.5-5.1) Chloride Level 104 mmol/L (98-107) Carbon Dioxide Level 26 mmol/L (21-32) Anion Gap 6 (6-14) Blood Urea Nitrogen 20 mg/dL (8-26) Creatinine 0.8 mg/dL (0.7-1.3) Estimated GFR (Cockcroft-Gault) 95.3 Glucose Level 156 mg/dL (70-99) Calcium Level 8.1 mg/dL (8.5-10.1) Phosphorus Level 1.8 mg/dL (2.6-4.7) Magnesium Level 2.1 mg/dL (1.8-2.4) Vancomycin Level Trough 12.6 mcg/mL (10.0-20.0) Vancomycin Last Dose Date 05/06/17 Vancomycin Last Dose Time 1800 Laboratory Tests Test 05/07/17 05:30 Sodium Level 136 mmol/L (136-145) Potassium Level 3.5 mmol/L (3.5-5.1) Chloride Level 104 mmol/L (98-107) Carbon Dioxide Level 26 mmol/L (21-32) Anion Gap 6 (6-14) Blood Urea Nitrogen 20 mg/dL (8-26) Creatinine 0.8 mg/dL (0.7-1.3) Estimated GFR (Cockcroft-Gault) 95.3 Glucose Level 156 mg/dL (70-99) Calcium Level 8.1 mg/dL (8.5-10.1) Phosphorus Level 1.8 mg/dL (2.6-4.7) Magnesium Level 2.1 mg/dL (1.8-2.4) Vancomycin Level Trough 12.6 mcg/mL (10.0-20.0) Vancomycin Last Dose Date 05/06/17 Vancomycin Last Dose Time 1800 Medications Active Scripts Medications Dose Route/Sig Max Daily Dose Days Date Category Melatonin 3 Mg Tablet 1 Tab PO QHS 04/22/17 Reported Move Free Sentence Lab Tablet (Glucosam/Chond/Hyalu/Cf Borate) 1 Each Tablet 1 Each PO DAILY 04/22/17 Reported Digoxin 125 Mcg Tablet 1 Tab PO DAILY 04/22/17 Reported Prednisone 10 Mg Tablet 10 Mg PO DAILY 04/22/17 Reported Impression . 1. Acute respiratory failure, expected post -op 2. septic shock, on multiple pressors 3. Metabolic acidosis/ lactic acidosis, improving 4. chronic A-Fib 5. Crohn's Dx, who has h/o perforated viscous and underwent lap with resection . Cults + for H para/Clostridium Ramsom/Bacteroides/Strep bovis. D/cd home with Augmentin. Presented electively for an extended right colon resection with ileocolotomy 04/29. Taken back to OR ruptured ileo-colic anastomosis, fecal impaction s/p rigid procto, disimpaction, ex lap, resection of ileo-colic anastomosis, end ileostomy, Evans's pouch, Plan . 1. AC mode. Correct respiratory alkalosis. f/u ABG later 2. Not ready for weaning 3. Continue levophed/ vasopressin 4. Can dc HCO3 drip 5. BS antibiotic per ID 6. fentanyl/ versed 7. volume challenge prn 8. TPN, Na acetate added 9. d/w RN cct 25 min KEVIN LORA MD May 07, 2017 10:22
[2017-05-07] MEDS ORDERED: POTASSIUM PHOSPHATE DIBASIC 15 MMOL in IV NORMAL SALINE 250ML 250 ML IV ONE (10:30)
[2017-05-07 10:35] LABS: FIO2 ABG 30%
[2017-05-07] MEDS: TPN PER PHARMACY MC PRN ×2 (11:20→12:20)
[2017-05-07 12:08] LABS: HCO3 ABG 27 mmol/L (21-28); PCO2 ABG 37 mmHg (35-46); PH ABG 7.48 (7.35-7.45); PO2 ABG 66 mmHg (65-108); SAT O2 ABG 94 % (92-99)
[2017-05-07 12:11] LABS: FIO2 ABG 30%
--- NOTE | 2017-05-07 12:37 | PDOC ---
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 05/07/17 1237: CARDIO Progress Notes Date and Time Date of Service 05/07/17 Time of Evaluation 1045 Subjective Subjective: Other (intubated, sedated ) Vitals Vitals Vital Signs Date Time Temp Pulse Resp B/P (MAP) Pulse Ox O2 Delivery O2 Flow Rate FiO2 05/07/17 12:25 96 Ventilator 05/07/17 12:00 97.2 107 29 106/71 (83) 97.2 05/06/17 11:19 30.0 Weight Weight [ ] Input and Output Intake and Output Intake and Output 05/07/17 06:59 Intake Total 5490 ml Output Total 4181 ml Balance 1309 ml IV Total 5490 ml Output Urine Total 1331 ml Stool Total 2610 ml Gastric Drainage Total 100 ml Drainage Total 140 ml Laboratory Labs Laboratory Tests Test 05/07/17 05:30 05/07/17 08:00 05/07/17 10:45 05/07/17 12:00 Sodium Level 136 mmol/L (136-145) Potassium Level 3.5 mmol/L (3.5-5.1) Chloride Level 104 mmol/L (98-107) Carbon Dioxide Level 26 mmol/L (21-32) Anion Gap 6 (6-14) Blood Urea Nitrogen 20 mg/dL (8-26) Creatinine 0.8 mg/dL (0.7-1.3) Estimated GFR (Cockcroft-Gault) 95.3 Glucose Level 156 mg/dL (70-99) Calcium Level 8.1 mg/dL (8.5-10.1) Phosphorus Level 1.8 mg/dL (2.6-4.7) Magnesium Level 2.1 mg/dL (1.8-2.4) Vancomycin Level Trough 12.6 mcg/mL (10.0-20.0) Vancomycin Last Dose Date 05/06/17 Vancomycin Last Dose Time 1800 O2 Saturation 97 % (92-99) 94 % (92-99) Arterial Blood pH 7.54 (7.35-7.45) 7.48 (7.35-7.45) Arterial Blood pCO2 at Patient Temp 31 mmHg (35-46) 37 mmHg (35-46) Arterial Blood pO2 at Patient Temp 86 mmHg (65-108) 66 mmHg (65-108) Arterial Blood HCO3 26 mmol/L (21-28) 27 mmol/L (21-28) Arterial Blood Base Excess 4 mmol/L (-3-3) 4 mmol/L (-3-3) FiO2 30% 30% Glucose (Fingerstick) 175 mg/dL (70-99) Lactic Acid Level 2.1 mmol/L (0.4-2.0) Microbiology Micro Microbiology 05/06/17 Blood Culture - Preliminary, Resulted NO GROWTH AFTER 1 DAY 05/05/17 Anaerobic/Aerobic Culture, Resulted Pending 05/05/17 Anaerobic Culture Result 1 (ENOCH), Resulted Pending 05/05/17 Aerobic Culture - Preliminary, Resulted 05/05/17 Aerobic Culture Result 1 (ENOCH) - Preliminary, Resulted Physical Exam HEENT: Neck Supple W Full Motion Chest: Symmetric LUNGS: Clear to Auscultation, Other (intubated with mechanical ventilation) Heart: irregularly irregular (tele AFIB rate 100), other (distant heart tones ) Abdomen: Other (Abdominal drain x3 intact, ileostomy intact ) Extremities: No Edema, Other (diminished DP pulses bilaterally) Neurology: other (sedated ) Assessment Assessment 1. Chronic atrial fibrillation 2. Septic shock; requiring 2 pressors Recommendations Supportive care Continue Dig. Wean vasopressin as able. Continue levo. Prognosis guarded KATIE PARK MD 05/07/172041: CARDIO Progress Notes Plan Plan Pt. seen and examined. Agree with above PUBLIC SERVICE DIRECTOR note. No acute events overnight. Remains in septic shock. On exam he is sedated. Labs reviewed. Suspect poor prognosis. Supportive care from CV standpoint. No utility to albumin. d/w nurse Will follow along peripherally. 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 APRN May 07, 2017 12:37 KATIE PARK MD May 07, 2017 20:42
--- NOTE | 2017-05-07 12:45 | PDOC ---
PROGRESS NOTES Chief Complaint Chief Complaint s/p R colectomy Crohn's dz ASSESSMENT AND PLAN: 1. s/p R part colectomy: on 04/[address] Garcia. ex lap on 05/05, now with R ileostomy 2. 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 Respir failure: vented. Pulm following 4. Afib with RVR: improved, but HR remains >100. cardiology managing rate controllers 5. Hypotension: on pressors x2 - suspected sepsis 6. Chronic atrial fib 7. CHF: diastolic, nl EF 8. Leukocytosis: reactive: significantly up since surgery yesterday. on empiric Zosyn, vanco, micafungin 9. Hyponatremia: mild. monitor with ongoing IVF 10. Coagulopathy: elevated INR pro-op. monitor; may need vit K. no overt bleed 11. Prophylaxis: PPI History of Present Illness History of Present Illness intubated, sedated Vitals Vitals Vital Signs Date Time Temp Pulse Resp B/P (MAP) Pulse Ox O2 Delivery O2 Flow Rate FiO2 05/07/17 12:25 96 Ventilator 05/07/17 12:00 97.2 107 29 106/71 (83) 97.2 05/06/17 11:19 30.0 Physical Exam General: No acute distress, mild distress, Other (intubated sedated) Heart: Other (tachy) Lungs: Other (decrease bs) Abdomen: Soft, Other (stoma viable with liguid output) Extremities: No clubbing, No edema Skin: No rashes Labs LABS Laboratory Tests Test 05/07/17 05:30 05/07/17 08:00 05/07/17 10:45 05/07/17 12:00 Sodium Level 136 mmol/L (136-145) Potassium Level 3.5 mmol/L (3.5-5.1) Chloride Level 104 mmol/L (98-107) Carbon Dioxide Level 26 mmol/L (21-32) Anion Gap 6 (6-14) Blood Urea Nitrogen 20 mg/dL (8-26) Creatinine 0.8 mg/dL (0.7-1.3) Estimated GFR (Cockcroft-Gault) 95.3 Glucose Level 156 mg/dL (70-99) Calcium Level 8.1 mg/dL (8.5-10.1) Phosphorus Level 1.8 mg/dL (2.6-4.7) Magnesium Level 2.1 mg/dL (1.8-2.4) Vancomycin Level Trough 12.6 mcg/mL (10.0-20.0) Vancomycin Last Dose Date 05/06/17 Vancomycin Last Dose Time 1800 O2 Saturation 97 % (92-99) 94 % (92-99) Arterial Blood pH 7.54 (7.35-7.45) 7.48 (7.35-7.45) Arterial Blood pCO2 at Patient Temp 31 mmHg (35-46) 37 mmHg (35-46) Arterial Blood pO2 at Patient Temp 86 mmHg (65-108) 66 mmHg (65-108) Arterial Blood HCO3 26 mmol/L (21-28) 27 mmol/L (21-28) Arterial Blood Base Excess 4 mmol/L (-3-3) 4 mmol/L (-3-3) FiO2 30% 30% Glucose (Fingerstick) 175 mg/dL (70-99) Lactic Acid Level 2.1 mmol/L (0.4-2.0) KAYLYNN CONNELL MD May 07, 2017 12:45
--- NOTE | 2017-05-07 13:19 | PDOC ---
FERNANDO CEJA [employer] M[employer]ER'S ASSISTANT 05/07/17 1319: SURGICAL PROGRESS NOTE Subjective sedated, vent Vital Signs Vital Signs Date Time Temp Pulse Resp B/P (MAP) Pulse Ox O2 Delivery O2 Flow Rate FiO2 05/07/17 12:25 96 Ventilator 05/07/17 12:00 97.2 107 29 106/71 (83) 97.2 05/06/17 11:19 30.0 I&O Intake and Output 05/07/17 07:00 Intake Total 5490 ml Output Total 4171 ml Balance 1319 ml IV Total 5490 ml Output Urine Total 1321 ml Stool Total 2610 ml Gastric Drainage Total 100 ml Drainage Total 140 ml PATIENT HAS A YANCEY: Yes (critical monitoring ) General: No acute distress, Other (sedated) HEENT: Other ([facility] vent) Abdomen: Soft, Other (incision c/d/i, sutures in place, ostomy with stool ( liquid)) Labs Laboratory Tests Test 05/05/17 15:30 05/05/17 21:55 05/05/17 22:45 05/06/17 05:45 White Blood Count 5.0 x10^3/uL (4.0-11.0) 17.1 x10^3/uL (4.0-11.0) Red Blood Count 2.79 x10^6/uL (4.30-5.70) 3.56 x10^6/uL (4.30-5.70) Hemoglobin 9.4 g/dL (13.0-17.5) 11.7 g/dL (13.0-17.5) Hematocrit 27.8 % (39.0-53.0) 35.9 % (39.0-53.0) Mean Corpuscular Volume 99 fL (79-100) 101 fL (79-100) Mean Corpuscular Hemoglobin 34 pg (25-35) 33 pg (25-35) Mean Corpuscular Hemoglobin Concent 34 g/dL (31-37) 33 g/dL (31-37) Red Cell Distribution Width 15.6 % (11.5-14.5) 16.2 % (11.5-14.5) Platelet Count 140 x10^3/uL (140-400) 190 x10^3/uL (140-400) Neutrophils (%) (Auto) 91 % (31-73) 92 % (31-73) Lymphocytes (%) (Auto) 5 % (24-48) 6 % (24-48) Monocytes (%) (Auto) 3 % (0-9) 1 % (0-9) Eosinophils (%) (Auto) 0 % (0-3) 0 % (0-3) Basophils (%) (Auto) 0 % (0-3) 0 % (0-3) Neutrophils # (Auto) 4.5 x10^3uL (1.8-7.7) 15.8 x10^3uL (1.8-7.7) Lymphocytes # (Auto) 0.3 x10^3/uL (1.0-4.8) 1.1 x10^3/uL (1.0-4.8) Monocytes # (Auto) 0.2 x10^3/uL (0.0-1.1) 0.2 x10^3/uL (0.0-1.1) Eosinophils # (Auto) 0.0 x10^3/uL (0.0-0.7) 0.0 x10^3/uL (0.0-0.7) Basophils # (Auto) 0.0 x10^3/uL (0.0-0.2) 0.0 x10^3/uL (0.0-0.2) Prothrombin Time 18.7 SEC (11.7-14.0) Prothromb Time International Ratio 1.7 (0.8-1.1) Sodium Level 134 mmol/L (136-145) 134 mmol/L (136-145) Potassium Level 2.5 mmol/L (3.5-5.1) 4.2 mmol/L (3.5-5.1) 4.1 mmol/L (3.5-5.1) Chloride Level 102 mmol/L (98-107) 105 mmol/L (98-107) Carbon Dioxide Level 22 mmol/L (21-32) 20 mmol/L (21-32) Anion Gap 10 (6-14) 9 (6-14) Blood Urea Nitrogen 25 mg/dL (8-26) 23 mg/dL (8-26) Creatinine 0.8 mg/dL (0.7-1.3) 1.0 mg/dL (0.7-1.3) Estimated GFR (Cockcroft-Gault) 95.3 73.7 Glucose Level 84 mg/dL (70-99) 202 mg/dL (70-99) Lactic Acid Level 2.0 mmol/L (0.4-2.0) 4.0 mmol/L (0.4-2.0) Calcium Level 6.1 mg/dL (8.5-10.1) 7.8 mg/dL (8.5-10.1) O2 Saturation 99 % (92-99) Arterial Blood pH 7.32 (7.35-7.45) Arterial Blood pCO2 at Patient Temp 35 mmHg (35-46) Arterial Blood pO2 at Patient Temp 223 mmHg (65-108) Arterial Blood HCO3 17 mmol/L (21-28) Arterial Blood Base Excess -8 mmol/L (-3-3) FiO2 80 Segmented Neutrophils % 17 % (35-66) Band Neutrophils % 65 % (0-9) Lymphocytes % 8 % (24-48) Metamyelocytes % 10 % (0-0) Platelet Estimate Adequate (ADEQUATE) Phosphorus Level 2.0 mg/dL (2.6-4.7) Magnesium Level 1.8 mg/dL (1.8-2.4) Test 05/06/17 06:00 05/06/17 08:00 05/07/17 05:30 05/07/17 08:00 Nasal Screen MRSA (PCR) Negative (Negative) O2 Saturation 96 % (92-99) 97 % (92-99) Arterial Blood pH 7.40 (7.35-7.45) 7.54 (7.35-7.45) Arterial Blood pCO2 at Patient Temp 28 mmHg (35-46) 31 mmHg (35-46) Arterial Blood pO2 at Patient Temp 79 mmHg (65-108) 86 mmHg (65-108) Arterial Blood HCO3 17 mmol/L (21-28) 26 mmol/L (21-28) Arterial Blood Base Excess -7 mmol/L (-3-3) 4 mmol/L (-3-3) FiO2 30 30% Sodium Level 136 mmol/L (136-145) Potassium Level 3.5 mmol/L (3.5-5.1) Chloride Level 104 mmol/L (98-107) Carbon Dioxide Level 26 mmol/L (21-32) Anion Gap 6 (6-14) Blood Urea Nitrogen 20 mg/dL (8-26) Creatinine 0.8 mg/dL (0.7-1.3) Estimated GFR (Cockcroft-Gault) 95.3 Glucose Level 156 mg/dL (70-99) Calcium Level 8.1 mg/dL (8.5-10.1) Phosphorus Level 1.8 mg/dL (2.6-4.7) Magnesium Level 2.1 mg/dL (1.8-2.4) Vancomycin Level Trough 12.6 mcg/mL (10.0-20.0) Vancomycin Last Dose Date 05/06/17 Vancomycin Last Dose Time 1800 Test 05/07/17 10:45 05/07/17 12:00 Glucose (Fingerstick) 175 mg/dL (70-99) Lactic Acid Level 2.1 mmol/L (0.4-2.0) O2 Saturation 94 % (92-99) Arterial Blood pH 7.48 (7.35-7.45) Arterial Blood pCO2 at Patient Temp 37 mmHg (35-46) Arterial Blood pO2 at Patient Temp 66 mmHg (65-108) Arterial Blood HCO3 27 mmol/L (21-28) Arterial Blood Base Excess 4 mmol/L (-3-3) FiO2 30% Laboratory Tests Test 05/07/17 05:30 05/07/17 08:00 05/07/17 10:45 05/07/17 12:00 Sodium Level 136 mmol/L (136-145) Potassium Level 3.5 mmol/L (3.5-5.1) Chloride Level 104 mmol/L (98-107) Carbon Dioxide Level 26 mmol/L (21-32) Anion Gap 6 (6-14) Blood Urea Nitrogen 20 mg/dL (8-26) Creatinine 0.8 mg/dL (0.7-1.3) Estimated GFR (Cockcroft-Gault) 95.3 Glucose Level 156 mg/dL (70-99) Calcium Level 8.1 mg/dL (8.5-10.1) Phosphorus Level 1.8 mg/dL (2.6-4.7) Magnesium Level 2.1 mg/dL (1.8-2.4) Vancomycin Level Trough 12.6 mcg/mL (10.0-20.0) Vancomycin Last Dose Date 05/06/17 Vancomycin Last Dose Time 1800 O2 Saturation 97 % (92-99) 94 % (92-99) Arterial Blood pH 7.54 (7.35-7.45) 7.48 (7.35-7.45) Arterial Blood pCO2 at Patient Temp 31 mmHg (35-46) 37 mmHg (35-46) Arterial Blood pO2 at Patient Temp 86 mmHg (65-108) 66 mmHg (65-108) Arterial Blood HCO3 26 mmol/L (21-28) 27 mmol/L (21-28) Arterial Blood Base Excess 4 mmol/L (-3-3) 4 mmol/L (-3-3) FiO2 30% 30% Glucose (Fingerstick) 175 mg/dL (70-99) Lactic Acid Level 2.1 mmol/L (0.4-2.0) Assessment/Plan s/p ex lap for pelvic abscess continue supportive care Problems: RON GROSS MD 05/07/17 1544: SURGICAL PROGRESS NOTE Assessment/Plan pt seen earlier examined agree with above no new surgical recs Problems: FERNANDO CEJA APRN May 07, 2017 13:19 RON GROSS MD May 07, 2017 15:44
[2017-05-07] MEDS ORDERED: ALBUMIN HUMAN 25% 100 ML IV ONE (20:45)
[2017-05-07] MEDS ORDERED: TOTAL PARENTERAL NUTRITION IV SCH ×11 (22:00)
[2017-05-07] MEDS ORDERED: POTASSIUM PHOSPHATE DIBASIC 15 MMOL in IV NORMAL SALINE 250ML 250 ML IV SCH (22:00)
[2017-05-07] MEDS ORDERED: DEXTROSE 70% IV SCH ×11 (22:00)
[2017-05-07] MEDS ORDERED: [UNRECOGNIZED DRUG - OTHER] IV SCH ×11 (22:00)
[2017-05-07] MEDS ORDERED: AMINO ACIDS IV SCH ×11 (22:00)
[2017-05-08] VITALS (26 sets, daily range): BP systolic 83–119; BP diastolic 56–82
[2017-05-08] MEDS: VANCOMYCIN 1 GM in IV NORMAL SALINE 250ML 250 ML IV SCH ×3 (00:42→16:31)
[2017-05-08] MEDS: NOREPINEPHRIN PREMIX 250 ML IV PRN (00:43)
[2017-05-08] MEDS: IV NORMAL SALINE 1000ML BAG 1,000 ML IV SCH ×3 (00:43→14:17)
[2017-05-08] MEDS: MIDAZOLAM PREMIX 100 ML IV PRN (00:43)
[2017-05-08] MEDS: PIPERACILLIN/TAZOBACTAM 4.5 GM in IV NORMAL SALINE 100ML 100 ML IV SCH ×3 (05:40→17:55)
[2017-05-08] MEDS: ENOXAPARIN 40 MG/0.4 ML SYRINGE. SQ SCH (05:40)
[2017-05-08 06:21] LABS: INR 1.2 (0.8-1.1); PROTHROMBIN TIME PATIENT 14.6 SEC (11.7-14.0)
[2017-05-08 06:24] LABS: CALCIUM 7.9 mg/dL (8.5-10.1); CREATININE 0.8 mg/dL (0.7-1.3); GFR 95.3; POTASSIUM 3.4 mmol/L (3.5-5.1)
[2017-05-08 06:25] LABS: ALBUMIN 1.7 g/dL (3.4-5.0); ALBUMIN/GLOBULIN RATIO 0.7 (1.0-1.7); CALCIUM 7.7 mg/dL (8.5-10.1); CREATININE 0.8 mg/dL (0.7-1.3); GFR 95.3; POTASSIUM 3.6 mmol/L (3.5-5.1); TOTAL BILIRUBIN 0.9 mg/dL (0.2-1.0); TOTAL PROTEIN 4.1 g/dL (6.4-8.2)
[2017-05-08 07:49] LABS: HCO3 ABG 26 mmol/L (21-28); PCO2 ABG 37 mmHg (35-46); PH ABG 7.47 (7.35-7.45); PO2 ABG 79 mmHg (65-108); SAT O2 ABG 96 % (92-99)
[2017-05-08 07:51] LABS: FIO2 ABG 30
[2017-05-08 08:01] LABS: BASO % 0 % (0-3); EOS % 0 % (0-3); HEMATOCRIT 28.3 % (39.0-53.0); HEMOGLOBIN 9.4 g/dL (13.0-17.5); LYMPH # 1.4 x10^3/uL (1.0-4.8); LYMPH % 10 % (24-48); MEAN CORPUSCULAR HEMOGLOBIN 33 pg (25-35); MEAN CORPUSCULAR HGB CONC 33 g/dL (31-37); MEAN CORPUSCULAR VOLUME 100 fL (79-100); MONO % 5 % (0-9); NEUT % 85 % (31-73); PLATELET COUNT 117 x10^3/uL (140-400); RED BLOOD COUNT 2.83 x10^6/uL (4.30-5.70); RED CELL DISTRIBUTION WIDTH 16.7 % (11.5-14.5); WHITE BLOOD COUNT 14.4 x10^3/uL (4.0-11.0)
[2017-05-08] MEDS: MICAFUNGIN 100 MG in IV DEXTROSE 5% 100 ML IV SCH (08:02)
--- NOTE | 2017-05-08 08:09 | RAD ---
Portable AP upright chest x-ray performed at 06 34 History: Respiratory failure. Follow-up study. Comparison: May 06, 2017. Findings: There've been no interval tube or line changes. Increasing left lung base infiltrate is seen. Right lung field remains clear. No significant pleural effusion is seen. No pneumothorax is evident. The heart size and mediastinum and pulmonary vasculature are stable. IMPRESSION: Increasing left lung base infiltrate.
[2017-05-08] MEDS: MORPHINE ER 15 MG TABLET.ER PO SCH (09:00)
[2017-05-08] MEDS: DIGOXIN 250 MCG TABLET. PO SCH (09:00)
[2017-05-08] MEDS: VANCOMYCIN PER PHARMACY MC PRN (09:08)
[2017-05-08] MEDS: FAMOTIDINE 20 MG/2 ML VIAL IVP SCH ×2 (09:28→21:26)
[2017-05-08] MEDS: VASOPRESSIN 40 UNIT in IV DEXTROSE 5% 100 ML IV PRN (09:29)
--- NOTE | 2017-05-08 10:05 | PDOC ---
Infectious Disease Note Subjective Subjective Off sedation, unresponsive Remains intubated. FiO2 30% TPN Hypotensive, on 2 pressors No fever ROS ROS unobtainable Vital Sign Vital Signs Vital Signs Date Time Temp Pulse Resp B/P (MAP) Pulse Ox O2 Delivery O2 Flow Rate FiO2 05/08/17 09:22 97 Ventilator 05/08/17 07:00 100 19 97/71 (80) 05/08/17 04:00 98.6 98.6 Physical Exam PHYSICAL EXAM GENERAL: Intubated. HEENT: ETT, OGT LUNG - CTA CV - Normal S1 and S2. ABD: ostomy, + output. LASHAUN x 3. Right flank erythema and thicken skin : Wagner. + scrotal swelling EXT: Generalized edema. No cyanosis SKIN no rash NEURO: Unresponsive RIJ and RUE-PICC,right wrist art line Labs Lab Laboratory Tests Test 05/07/17 10:45 05/07/17 12:00 05/07/17 20:20 05/08/17 05:50 Glucose (Fingerstick) 175 mg/dL (70-99) Lactic Acid Level 2.1 mmol/L (0.4-2.0) O2 Saturation 94 % (92-99) Arterial Blood pH 7.48 (7.35-7.45) Arterial Blood pCO2 at Patient Temp 37 mmHg (35-46) Arterial Blood pO2 at Patient Temp 66 mmHg (65-108) Arterial Blood HCO3 27 mmol/L (21-28) Arterial Blood Base Excess 4 mmol/L (-3-3) FiO2 30% Phosphorus Level 2.3 mg/dL (2.6-4.7) 3.0 mg/dL (2.6-4.7) White Blood Count 14.4 x10^3/uL (4.0-11.0) Red Blood Count 2.83 x10^6/uL (4.30-5.70) Hemoglobin 9.4 g/dL (13.0-17.5) Hematocrit 28.3 % (39.0-53.0) Mean Corpuscular Volume 100 fL (79-100) Mean Corpuscular Hemoglobin 33 pg (25-35) Mean Corpuscular Hemoglobin Concent 33 g/dL (31-37) Red Cell Distribution Width 16.7 % (11.5-14.5) Platelet Count 117 x10^3/uL (140-400) Neutrophils (%) (Auto) 85 % (31-73) Lymphocytes (%) (Auto) 10 % (24-48) Monocytes (%) (Auto) 5 % (0-9) Eosinophils (%) (Auto) 0 % (0-3) Basophils (%) (Auto) 0 % (0-3) Neutrophils # (Auto) 12.2 x10^3uL (1.8-7.7) Lymphocytes # (Auto) 1.4 x10^3/uL (1.0-4.8) Monocytes # (Auto) 0.7 x10^3/uL (0.0-1.1) Eosinophils # (Auto) 0.0 x10^3/uL (0.0-0.7) Basophils # (Auto) 0.0 x10^3/uL (0.0-0.2) Prothrombin Time 14.6 SEC (11.7-14.0) Prothromb Time International Ratio 1.2 (0.8-1.1) Sodium Level 141 mmol/L (136-145) Potassium Level 3.6 mmol/L (3.5-5.1) Chloride Level 106 mmol/L (98-107) Carbon Dioxide Level 28 mmol/L (21-32) Anion Gap 7 (6-14) Blood Urea Nitrogen 18 mg/dL (8-26) Creatinine 0.8 mg/dL (0.7-1.3) Estimated GFR (Cockcroft-Gault) 95.3 BUN/Creatinine Ratio 23 (6-20) Glucose Level 117 mg/dL (70-99) Calcium Level 7.7 mg/dL (8.5-10.1) Magnesium Level 2.0 mg/dL (1.8-2.4) Total Bilirubin 0.9 mg/dL (0.2-1.0) Aspartate Amino Transf (AST/SGOT) 37 U/L (15-37) Alanine Aminotransferase (ALT/SGPT) 19 U/L (16-63) Alkaline Phosphatase 78 U/L (46-116) Total Protein 4.1 g/dL (6.4-8.2) Albumin 1.7 g/dL (3.4-5.0) Albumin/Globulin Ratio 0.7 (1.0-1.7) Test 05/08/17 07:35 05/08/17 07:50 O2 Saturation 96 % (92-99) Arterial Blood pH 7.47 (7.35-7.45) Arterial Blood pCO2 at Patient Temp 37 mmHg (35-46) Arterial Blood pO2 at Patient Temp 79 mmHg (65-108) Arterial Blood HCO3 26 mmol/L (21-28) Arterial Blood Base Excess 2 mmol/L (-3-3) FiO2 30 Vancomycin Level Trough 14.5 mcg/mL (10.0-20.0) Vancomycin Last Dose Date 05/08/17 Vancomycin Last Dose Time 0000 Portable AP upright chest x-ray performed at 06 34 History: Respiratory failure. Follow-up study. Comparison: May 06, 2017. Findings: There've been no interval tube or line changes. Increasing left lung base infiltrate is seen. Right lung field remains clear. No significant pleural effusion is seen. No pneumothorax is evident. The heart size and mediastinum and pulmonary vasculature are stable. IMPRESSION: Increasing left lung base infiltrate. Micro Blood cultures NGTD Pelvis abscess GRAM STAIN Final WBCS MANY RBCS MANY GRAM POSITIVE COCCI FEW YEAST FEW MODERATE TINY GRAM POSITIVE COCCI, SUGGESTIVE OF ANAEROBES ANAEROBIC-AEROBIC CULTURE PENDING ANAEROBIC RES 1 PENDING AEROBIC CULT Preliminary Preliminary report AEROBIC RES 1 Preliminary Gram negative rods Objective Assessment Pelvic abscess. Gram stain: GPC, yeast, anaerobes. Culture GNR so far Sepsis with hypotension, on pressors Leukocytosis - post op vs ID Ruptured ileo-colic anastomosis, fecal impaction s/p rigid procto, disimpaction , ex lap, resection of ileo-colic anastomosis, end ileostomy, Evans's pouch, DALLIN 05/05 Right flank ? cellulitis Immunosuppression Afib H/o H para/Clostridium Ramsom/Bacteroides/Strep bovis January 2017 Plan Plan of Care Cont Vanc, Zosyn and micafungin Vanc trough 14.5 F/u labs and cults and blood cults times 2 - 05/06 D/w sig other Critically ill Attending Co-Sign The patient was seen and interviewed as well as examined at the bedside. The chart was reviewed. The case was discussed. Agree with the plan of care. d/w EVELYNBRITTANY FRANCISCO Janeth JERONIMO May 08, 2017 10:05 KELSIE CANTU MD May 08, 2017 14:08
--- NOTE | 2017-05-08 11:10 | PDOC ---
PULMONARY PROGRESS NOTES Subjective REMAINS INTUBATED/ OFF VERSED SINCE AM STILL IN SHOCK, LOW DOSE PRESSORS NOW Vitals Vital Signs Date Time Temp Pulse Resp B/P (MAP) Pulse Ox O2 Delivery O2 Flow Rate FiO2 05/08/17 10:00 92 17 104/76 (85) 100 Ventilator 05/08/17 08:00 99.4 99.4 General: No acute distress Lungs: Other (decrease bs) Cardiovascular: S1 Abdomen: Other (firm) Extremities: No Edema Skin: Warm Labs Laboratory Tests Test 05/07/17 05:30 05/07/17 08:00 05/07/17 10:45 05/07/17 12:00 Sodium Level 136 mmol/L (136-145) Potassium Level 3.5 mmol/L (3.5-5.1) Chloride Level 104 mmol/L (98-107) Carbon Dioxide Level 26 mmol/L (21-32) Anion Gap 6 (6-14) Blood Urea Nitrogen 20 mg/dL (8-26) Creatinine 0.8 mg/dL (0.7-1.3) Estimated GFR (Cockcroft-Gault) 95.3 Glucose Level 156 mg/dL (70-99) Calcium Level 8.1 mg/dL (8.5-10.1) Phosphorus Level 1.8 mg/dL (2.6-4.7) Magnesium Level 2.1 mg/dL (1.8-2.4) Vancomycin Level Trough 12.6 mcg/mL (10.0-20.0) Vancomycin Last Dose Date 05/06/17 Vancomycin Last Dose Time 1800 O2 Saturation 97 % (92-99) 94 % (92-99) Arterial Blood pH 7.54 (7.35-7.45) 7.48 (7.35-7.45) Arterial Blood pCO2 at Patient Temp 31 mmHg (35-46) 37 mmHg (35-46) Arterial Blood pO2 at Patient Temp 86 mmHg (65-108) 66 mmHg (65-108) Arterial Blood HCO3 26 mmol/L (21-28) 27 mmol/L (21-28) Arterial Blood Base Excess 4 mmol/L (-3-3) 4 mmol/L (-3-3) FiO2 30% 30% Glucose (Fingerstick) 175 mg/dL (70-99) Lactic Acid Level 2.1 mmol/L (0.4-2.0) Test 05/07/17 20:20 05/08/17 05:50 05/08/17 07:35 05/08/17 07:50 Phosphorus Level 2.3 mg/dL (2.6-4.7) 3.0 mg/dL (2.6-4.7) White Blood Count 14.4 x10^3/uL (4.0-11.0) Red Blood Count 2.83 x10^6/uL (4.30-5.70) Hemoglobin 9.4 g/dL (13.0-17.5) Hematocrit 28.3 % (39.0-53.0) Mean Corpuscular Volume 100 fL (79-100) Mean Corpuscular Hemoglobin 33 pg (25-35) Mean Corpuscular Hemoglobin Concent 33 g/dL (31-37) Red Cell Distribution Width 16.7 % (11.5-14.5) Platelet Count 117 x10^3/uL (140-400) Neutrophils (%) (Auto) 85 % (31-73) Lymphocytes (%) (Auto) 10 % (24-48) Monocytes (%) (Auto) 5 % (0-9) Eosinophils (%) (Auto) 0 % (0-3) Basophils (%) (Auto) 0 % (0-3) Neutrophils # (Auto) 12.2 x10^3uL (1.8-7.7) Lymphocytes # (Auto) 1.4 x10^3/uL (1.0-4.8) Monocytes # (Auto) 0.7 x10^3/uL (0.0-1.1) Eosinophils # (Auto) 0.0 x10^3/uL (0.0-0.7) Basophils # (Auto) 0.0 x10^3/uL (0.0-0.2) Prothrombin Time 14.6 SEC (11.7-14.0) Prothromb Time International Ratio 1.2 (0.8-1.1) Sodium Level 141 mmol/L (136-145) Potassium Level 3.6 mmol/L (3.5-5.1) Chloride Level 106 mmol/L (98-107) Carbon Dioxide Level 28 mmol/L (21-32) Anion Gap 7 (6-14) Blood Urea Nitrogen 18 mg/dL (8-26) Creatinine 0.8 mg/dL (0.7-1.3) Estimated GFR (Cockcroft-Gault) 95.3 BUN/Creatinine Ratio 23 (6-20) Glucose Level 117 mg/dL (70-99) Calcium Level 7.7 mg/dL (8.5-10.1) Magnesium Level 2.0 mg/dL (1.8-2.4) Total Bilirubin 0.9 mg/dL (0.2-1.0) Aspartate Amino Transf (AST/SGOT) 37 U/L (15-37) Alanine Aminotransferase (ALT/SGPT) 19 U/L (16-63) Alkaline Phosphatase 78 U/L (46-116) Total Protein 4.1 g/dL (6.4-8.2) Albumin 1.7 g/dL (3.4-5.0) Albumin/Globulin Ratio 0.7 (1.0-1.7) O2 Saturation 96 % (92-99) Arterial Blood pH 7.47 (7.35-7.45) Arterial Blood pCO2 at Patient Temp 37 mmHg (35-46) Arterial Blood pO2 at Patient Temp 79 mmHg (65-108) Arterial Blood HCO3 26 mmol/L (21-28) Arterial Blood Base Excess 2 mmol/L (-3-3) FiO2 30 Vancomycin Level Trough 14.5 mcg/mL (10.0-20.0) Vancomycin Last Dose Date 05/08/17 Vancomycin Last Dose Time 0000 Laboratory Tests Test 05/07/17 12:00 05/07/17 20:20 05/08/17 05:50 05/08/17 07:35 O2 Saturation 94 % (92-99) 96 % (92-99) Arterial Blood pH 7.48 (7.35-7.45) 7.47 (7.35-7.45) Arterial Blood pCO2 at Patient Temp 37 mmHg (35-46) 37 mmHg (35-46) Arterial Blood pO2 at Patient Temp 66 mmHg (65-108) 79 mmHg (65-108) Arterial Blood HCO3 27 mmol/L (21-28) 26 mmol/L (21-28) Arterial Blood Base Excess 4 mmol/L (-3-3) 2 mmol/L (-3-3) FiO2 30% 30 Phosphorus Level 2.3 mg/dL (2.6-4.7) 3.0 mg/dL (2.6-4.7) White Blood Count 14.4 x10^3/uL (4.0-11.0) Red Blood Count 2.83 x10^6/uL (4.30-5.70) Hemoglobin 9.4 g/dL (13.0-17.5) Hematocrit 28.3 % (39.0-53.0) Mean Corpuscular Volume 100 fL (79-100) Mean Corpuscular Hemoglobin 33 pg (25-35) Mean Corpuscular Hemoglobin Concent 33 g/dL (31-37) Red Cell Distribution Width 16.7 % (11.5-14.5) Platelet Count 117 x10^3/uL (140-400) Neutrophils (%) (Auto) 85 % (31-73) Lymphocytes (%) (Auto) 10 % (24-48) Monocytes (%) (Auto) 5 % (0-9) Eosinophils (%) (Auto) 0 % (0-3) Basophils (%) (Auto) 0 % (0-3) Neutrophils # (Auto) 12.2 x10^3uL (1.8-7.7) Lymphocytes # (Auto) 1.4 x10^3/uL (1.0-4.8) Monocytes # (Auto) 0.7 x10^3/uL (0.0-1.1) Eosinophils # (Auto) 0.0 x10^3/uL (0.0-0.7) Basophils # (Auto) 0.0 x10^3/uL (0.0-0.2) Prothrombin Time 14.6 SEC (11.7-14.0) Prothromb Time International Ratio 1.2 (0.8-1.1) Sodium Level 141 mmol/L (136-145) Potassium Level 3.6 mmol/L (3.5-5.1) Chloride Level 106 mmol/L (98-107) Carbon Dioxide Level 28 mmol/L (21-32) Anion Gap 7 (6-14) Blood Urea Nitrogen 18 mg/dL (8-26) Creatinine 0.8 mg/dL (0.7-1.3) Estimated GFR (Cockcroft-Gault) 95.3 BUN/Creatinine Ratio 23 (6-20) Glucose Level 117 mg/dL (70-99) Calcium Level 7.7 mg/dL (8.5-10.1) Magnesium Level 2.0 mg/dL (1.8-2.4) Total Bilirubin 0.9 mg/dL (0.2-1.0) Aspartate Amino Transf (AST/SGOT) 37 U/L (15-37) Alanine Aminotransferase (ALT/SGPT) 19 U/L (16-63) Alkaline Phosphatase 78 U/L (46-116) Total Protein 4.1 g/dL (6.4-8.2) Albumin 1.7 g/dL (3.4-5.0) Albumin/Globulin Ratio 0.7 (1.0-1.7) Test 05/08/17 07:50 Vancomycin Level Trough 14.5 mcg/mL (10.0-20.0) Vancomycin Last Dose Date 05/08/17 Vancomycin Last Dose Time 0000 Medications Active Scripts Medications Dose Route/Sig Max Daily Dose Days Date Category Melatonin 3 Mg Tablet 1 Tab PO QHS 04/22/17 Reported Move Free Joint Health Tablet (Glucosam/Chond/Hyalu/Cf Borate) 1 Each Tablet 1 Each PO DAILY 04/22/17 Reported Digoxin 125 Mcg Tablet 1 Tab PO DAILY 04/22/17 Reported Prednisone 10 Mg Tablet 10 Mg PO DAILY 04/22/17 Reported Impression . 1. Acute respiratory failure, expected post -op 2. septic shock, on multiple pressors 3. Metabolic acidosis/ lactic acidosis, improving 4. chronic A-Fib 5. Crohn's Dx, who has h/o perforated viscous and underwent lap with resection . Cults + for H para/Clostridium Ramsom/Bacteroides/Strep bovis. D/cd home with Augmentin. Presented electively for an extended right colon resection with ileocolotomy 04/29. Taken back to OR ruptured ileo-colic anastomosis, fecal impaction s/p rigid procto, disimpaction, ex lap, resection of ileo-colic anastomosis, end ileostomy, Evans's pouch, Plan . 1. AC mode. 2. Not ready for weaning. sedation turned off, Once awake, CPAP trial 3. Continue to wean levophed/ vasopressin 4. off HCO3 drip 5. BS antibiotic per ID 6. fentanyl for now 7. volume challenge prn 8. TPN, Na acetate added 9. d/w KEVIN ARCE MD 30, 2017 11:10
--- NOTE | 2017-05-08 11:18 | PDOC ---
PROGRESS NOTES Chief Complaint Chief Complaint s/p R colectomy Crohn's dz ASSESSMENT AND PLAN: 1. s/p R part colectomy: on 04/[address] Garcia. ex lap on 05/05, now with R ileostomy 2. Abd pain: post surgical, off [employer] dilaudid on 05/04; now intub.ed, sedated since 2nd surgery on 05/04; versed stopped today 3. Respir failure: vented. Pulm following 4. Hypotension: stable on pressors x2 - suspected sepsis. on empiric Zosyn, vanco, micafungin 5. Leukocytosis: reactive: sl improved, not normalized yet. monitor 6. Afib with RVR: improved, but HR remains >100, at least partly due to meds, sepsis. 7. CHF: diastolic, nl EF. serial CXRs with increasing opacity in L base, poss effusion CHF with vascular congestion. peripherally fluid overloaded as well, but difficult to diurese on pressor 8. Hypokalemia: resolved. monitor with ongoing IVF 9. Coagulopathy: elevated INR pre-op. resolved 10. Prophylaxis: PPI Condition: critical Prognosis poor d/w spouse CC time 35 min History of Present Illness History of Present Illness intubated, sedated Vitals Vitals Vital Signs Date Time Temp Pulse Resp B/P (MAP) Pulse Ox O2 Delivery O2 Flow Rate FiO2 05/08/17 11:00 91 25 91/57 (68) 100 Ventilator 05/08/17 08:00 99.4 99.4 Physical Exam General: No acute distress, Other (intubated sedated) Heart: Other (tachy) Lungs: Other (clear with min UA rhonchi) Abdomen: Soft, Other (incision c/d/i, sutures in place, ostomy with stool ( liquid)) Extremities: No clubbing, Other (2-3+ edema) Skin: No rashes Labs LABS Laboratory Tests Test 05/07/17 12:00 05/07/17 20:20 05/08/17 05:50 05/08/17 07:35 O2 Saturation 94 % (92-99) 96 % (92-99) Arterial Blood pH 7.48 (7.35-7.45) 7.47 (7.35-7.45) Arterial Blood pCO2 at Patient Temp 37 mmHg (35-46) 37 mmHg (35-46) Arterial Blood pO2 at Patient Temp 66 mmHg (65-108) 79 mmHg (65-108) Arterial Blood HCO3 27 mmol/L (21-28) 26 mmol/L (21-28) Arterial Blood Base Excess 4 mmol/L (-3-3) 2 mmol/L (-3-3) FiO2 30% 30 Phosphorus Level 2.3 mg/dL (2.6-4.7) 3.0 mg/dL (2.6-4.7) White Blood Count 14.4 x10^3/uL (4.0-11.0) Red Blood Count 2.83 x10^6/uL (4.30-5.70) Hemoglobin 9.4 g/dL (13.0-17.5) Hematocrit 28.3 % (39.0-53.0) Mean Corpuscular Volume 100 fL (79-100) Mean Corpuscular Hemoglobin 33 pg (25-35) Mean Corpuscular Hemoglobin Concent 33 g/dL (31-37) Red Cell Distribution Width 16.7 % (11.5-14.5) Platelet Count 117 x10^3/uL (140-400) Neutrophils (%) (Auto) 85 % (31-73) Lymphocytes (%) (Auto) 10 % (24-48) Monocytes (%) (Auto) 5 % (0-9) Eosinophils (%) (Auto) 0 % (0-3) Basophils (%) (Auto) 0 % (0-3) Neutrophils # (Auto) 12.2 x10^3uL (1.8-7.7) Lymphocytes # (Auto) 1.4 x10^3/uL (1.0-4.8) Monocytes # (Auto) 0.7 x10^3/uL (0.0-1.1) Eosinophils # (Auto) 0.0 x10^3/uL (0.0-0.7) Basophils # (Auto) 0.0 x10^3/uL (0.0-0.2) Prothrombin Time 14.6 SEC (11.7-14.0) Prothromb Time International Ratio 1.2 (0.8-1.1) Sodium Level 141 mmol/L (136-145) Potassium Level 3.6 mmol/L (3.5-5.1) Chloride Level 106 mmol/L (98-107) Carbon Dioxide Level 28 mmol/L (21-32) Anion Gap 7 (6-14) Blood Urea Nitrogen 18 mg/dL (8-26) Creatinine 0.8 mg/dL (0.7-1.3) Estimated GFR (Cockcroft-Gault) 95.3 BUN/Creatinine Ratio 23 (6-20) Glucose Level 117 mg/dL (70-99) Calcium Level 7.7 mg/dL (8.5-10.1) Magnesium Level 2.0 mg/dL (1.8-2.4) Total Bilirubin 0.9 mg/dL (0.2-1.0) Aspartate Amino Transf (AST/SGOT) 37 U/L (15-37) Alanine Aminotransferase (ALT/SGPT) 19 U/L (16-63) Alkaline Phosphatase 78 U/L (46-116) Total Protein 4.1 g/dL (6.4-8.2) Albumin 1.7 g/dL (3.4-5.0) Albumin/Globulin Ratio 0.7 (1.0-1.7) Test 05/08/17 07:50 Vancomycin Level Trough 14.5 mcg/mL (10.0-20.0) Vancomycin Last Dose Date 05/08/17 Vancomycin Last Dose Time 0000 KAYLYNN CONNELL MD May 08, 2017 11:18
[2017-05-08] MEDS: DIGOXIN IV 500 MCG/2 ML AMPUL. IV SCH (11:24)
[2017-05-08] MEDS: TPN PER PHARMACY MC PRN (12:26)
--- NOTE | 2017-05-08 13:46 | PDOC ---
SURGICAL PROGRESS NOTE Subjective off sedation unresponsive Vital Signs Vital Signs Date Time Temp Pulse Resp B/P (MAP) Pulse Ox O2 Delivery O2 Flow Rate FiO2 05/08/17 13:37 100 Ventilator 05/08/17 13:00 88 30 95/70 (78) 05/08/17 12:00 98.2 98.2 I&O Intake and Output 05/08/17 07:00 Intake Total 6185.2 ml Output Total 4662 ml Balance 1523.2 ml Intake Oral 0 ml IV Total 6185.2 ml Output Urine Total 952 ml Stool Total 3090 ml Drainage Total 620 ml PATIENT HAS A YANCEY: Yes Abdomen: Other (incision without active drainage, LASHAUN drains with serosanguineous output) Extremities: Other (edematous) Labs Laboratory Tests Test 05/07/17 05:30 05/07/17 08:00 05/07/17 10:45 05/07/17 12:00 Sodium Level 136 mmol/L (136-145) Potassium Level 3.5 mmol/L (3.5-5.1) Chloride Level 104 mmol/L (98-107) Carbon Dioxide Level 26 mmol/L (21-32) Anion Gap 6 (6-14) Blood Urea Nitrogen 20 mg/dL (8-26) Creatinine 0.8 mg/dL (0.7-1.3) Estimated GFR (Cockcroft-Gault) 95.3 Glucose Level 156 mg/dL (70-99) Calcium Level 8.1 mg/dL (8.5-10.1) Phosphorus Level 1.8 mg/dL (2.6-4.7) Magnesium Level 2.1 mg/dL (1.8-2.4) Vancomycin Level Trough 12.6 mcg/mL (10.0-20.0) Vancomycin Last Dose Date 05/06/17 Vancomycin Last Dose Time 1800 O2 Saturation 97 % (92-99) 94 % (92-99) Arterial Blood pH 7.54 (7.35-7.45) 7.48 (7.35-7.45) Arterial Blood pCO2 at Patient Temp 31 mmHg (35-46) 37 mmHg (35-46) Arterial Blood pO2 at Patient Temp 86 mmHg (65-108) 66 mmHg (65-108) Arterial Blood HCO3 26 mmol/L (21-28) 27 mmol/L (21-28) Arterial Blood Base Excess 4 mmol/L (-3-3) 4 mmol/L (-3-3) FiO2 30% 30% Glucose (Fingerstick) 175 mg/dL (70-99) Lactic Acid Level 2.1 mmol/L (0.4-2.0) Test 05/07/17 20:20 05/08/17 05:50 05/08/17 07:35 05/08/17 07:50 Phosphorus Level 2.3 mg/dL (2.6-4.7) 3.0 mg/dL (2.6-4.7) White Blood Count 14.4 x10^3/uL (4.0-11.0) Red Blood Count 2.83 x10^6/uL (4.30-5.70) Hemoglobin 9.4 g/dL (13.0-17.5) Hematocrit 28.3 % (39.0-53.0) Mean Corpuscular Volume 100 fL (79-100) Mean Corpuscular Hemoglobin 33 pg (25-35) Mean Corpuscular Hemoglobin Concent 33 g/dL (31-37) Red Cell Distribution Width 16.7 % (11.5-14.5) Platelet Count 117 x10^3/uL (140-400) Neutrophils (%) (Auto) 85 % (31-73) Lymphocytes (%) (Auto) 10 % (24-48) Monocytes (%) (Auto) 5 % (0-9) Eosinophils (%) (Auto) 0 % (0-3) Basophils (%) (Auto) 0 % (0-3) Neutrophils # (Auto) 12.2 x10^3uL (1.8-7.7) Lymphocytes # (Auto) 1.4 x10^3/uL (1.0-4.8) Monocytes # (Auto) 0.7 x10^3/uL (0.0-1.1) Eosinophils # (Auto) 0.0 x10^3/uL (0.0-0.7) Basophils # (Auto) 0.0 x10^3/uL (0.0-0.2) Prothrombin Time 14.6 SEC (11.7-14.0) Prothromb Time International Ratio 1.2 (0.8-1.1) Sodium Level 141 mmol/L (136-145) Potassium Level 3.6 mmol/L (3.5-5.1) Chloride Level 106 mmol/L (98-107) Carbon Dioxide Level 28 mmol/L (21-32) Anion Gap 7 (6-14) Blood Urea Nitrogen 18 mg/dL (8-26) Creatinine 0.8 mg/dL (0.7-1.3) Estimated GFR (Cockcroft-Gault) 95.3 BUN/Creatinine Ratio 23 (6-20) Glucose Level 117 mg/dL (70-99) Calcium Level 7.7 mg/dL (8.5-10.1) Magnesium Level 2.0 mg/dL (1.8-2.4) Total Bilirubin 0.9 mg/dL (0.2-1.0) Aspartate Amino Transf (AST/SGOT) 37 U/L (15-37) Alanine Aminotransferase (ALT/SGPT) 19 U/L (16-63) Alkaline Phosphatase 78 U/L (46-116) Total Protein 4.1 g/dL (6.4-8.2) Albumin 1.7 g/dL (3.4-5.0) Albumin/Globulin Ratio 0.7 (1.0-1.7) O2 Saturation 96 % (92-99) Arterial Blood pH 7.47 (7.35-7.45) Arterial Blood pCO2 at Patient Temp 37 mmHg (35-46) Arterial Blood pO2 at Patient Temp 79 mmHg (65-108) Arterial Blood HCO3 26 mmol/L (21-28) Arterial Blood Base Excess 2 mmol/L (-3-3) FiO2 30 Vancomycin Level Trough 14.5 mcg/mL (10.0-20.0) Vancomycin Last Dose Date 05/08/17 Vancomycin Last Dose Time 0000 Laboratory Tests Test 05/07/17 20:20 05/08/17 05:50 05/08/17 07:35 05/08/17 07:50 Phosphorus Level 2.3 mg/dL (2.6-4.7) 3.0 mg/dL (2.6-4.7) White Blood Count 14.4 x10^3/uL (4.0-11.0) Red Blood Count 2.83 x10^6/uL (4.30-5.70) Hemoglobin 9.4 g/dL (13.0-17.5) Hematocrit 28.3 % (39.0-53.0) Mean Corpuscular Volume 100 fL (79-100) Mean Corpuscular Hemoglobin 33 pg (25-35) Mean Corpuscular Hemoglobin Concent 33 g/dL (31-37) Red Cell Distribution Width 16.7 % (11.5-14.5) Platelet Count 117 x10^3/uL (140-400) Neutrophils (%) (Auto) 85 % (31-73) Lymphocytes (%) (Auto) 10 % (24-48) Monocytes (%) (Auto) 5 % (0-9) Eosinophils (%) (Auto) 0 % (0-3) Basophils (%) (Auto) 0 % (0-3) Neutrophils # (Auto) 12.2 x10^3uL (1.8-7.7) Lymphocytes # (Auto) 1.4 x10^3/uL (1.0-4.8) Monocytes # (Auto) 0.7 x10^3/uL (0.0-1.1) Eosinophils # (Auto) 0.0 x10^3/uL (0.0-0.7) Basophils # (Auto) 0.0 x10^3/uL (0.0-0.2) Prothrombin Time 14.6 SEC (11.7-14.0) Prothromb Time International Ratio 1.2 (0.8-1.1) Sodium Level 141 mmol/L (136-145) Potassium Level 3.6 mmol/L (3.5-5.1) Chloride Level 106 mmol/L (98-107) Carbon Dioxide Level 28 mmol/L (21-32) Anion Gap 7 (6-14) Blood Urea Nitrogen 18 mg/dL (8-26) Creatinine 0.8 mg/dL (0.7-1.3) Estimated GFR (Cockcroft-Gault) 95.3 BUN/Creatinine Ratio 23 (6-20) Glucose Level 117 mg/dL (70-99) Calcium Level 7.7 mg/dL (8.5-10.1) Magnesium Level 2.0 mg/dL (1.8-2.4) Total Bilirubin 0.9 mg/dL (0.2-1.0) Aspartate Amino Transf (AST/SGOT) 37 U/L (15-37) Alanine Aminotransferase (ALT/SGPT) 19 U/L (16-63) Alkaline Phosphatase 78 U/L (46-116) Total Protein 4.1 g/dL (6.4-8.2) Albumin 1.7 g/dL (3.4-5.0) Albumin/Globulin Ratio 0.7 (1.0-1.7) O2 Saturation 96 % (92-99) Arterial Blood pH 7.47 (7.35-7.45) Arterial Blood pCO2 at Patient Temp 37 mmHg (35-46) Arterial Blood pO2 at Patient Temp 79 mmHg (65-108) Arterial Blood HCO3 26 mmol/L (21-28) Arterial Blood Base Excess 2 mmol/L (-3-3) FiO2 30 Vancomycin Level Trough 14.5 mcg/mL (10.0-20.0) Vancomycin Last Dose Date 05/08/17 Vancomycin Last Dose Time 0000 Assessment/Plan sepsis respiratory failure still requiring pressors continue supportive care Problems: RON GROSS MD May 08, 2017 13:46
[2017-05-08] MEDS ORDERED: MINERAL OIL/PETROLATUM,WHITE OPHTH OINT 3.5GM TUBE. OU PRN (14:45)
[2017-05-08] MEDS: CHLORHEXIDINE 0.12% 15 ML MOUTHWASH. SWSP SCH (21:26)
[2017-05-08] MEDS ORDERED: TOTAL PARENTERAL NUTRITION IV SCH ×11 (22:00)
[2017-05-08] MEDS ORDERED: DEXTROSE 70% IV SCH ×11 (22:00)
[2017-05-08] MEDS ORDERED: AMINO ACIDS IV SCH ×11 (22:00)
[2017-05-08] MEDS ORDERED: [UNRECOGNIZED DRUG - OTHER] IV SCH ×11 (22:00)
[2017-05-09] VITALS (26 sets, daily range): BP systolic 89–120; BP diastolic 46–76
[2017-05-09] MEDS: PIPERACILLIN/TAZOBACTAM 4.5 GM in IV NORMAL SALINE 100ML 100 ML IV SCH ×3 (00:26→13:02)
[2017-05-09] MEDS: VANCOMYCIN 1 GM in IV NORMAL SALINE 250ML 250 ML IV SCH ×2 (00:27→12:59)
[2017-05-09] MEDS: IV NORMAL SALINE 1000ML BAG 1,000 ML IV SCH ×2 (04:15→13:01)
[2017-05-09] MEDS: VASOPRESSIN 40 UNIT in IV DEXTROSE 5% 100 ML IV PRN ×2 (04:19→19:25)
[2017-05-09] MEDS: ENOXAPARIN 40 MG/0.4 ML SYRINGE. SQ SCH (06:01)
[2017-05-09 06:35] LABS: BASO % 0 % (0-3); EOS % 0 % (0-3); HEMATOCRIT 27.3 % (39.0-53.0); LYMPH # 1.2 x10^3/uL (1.0-4.8); LYMPH % 8 % (24-48); MEAN CORPUSCULAR HEMOGLOBIN 33 pg (25-35); MEAN CORPUSCULAR HGB CONC 33 g/dL (31-37); MEAN CORPUSCULAR VOLUME 99 fL (79-100); MONO % 5 % (0-9); NEUT % 86 % (31-73); PLATELET COUNT 112 x10^3/uL (140-400); RED BLOOD COUNT 2.75 x10^6/uL (4.30-5.70); RED CELL DISTRIBUTION WIDTH 17.2 % (11.5-14.5)
[2017-05-09] MEDS: NOREPINEPHRIN PREMIX 250 ML IV PRN (06:38)
[2017-05-09 06:51] LABS: ALBUMIN 1.4 g/dL (3.4-5.0); ALBUMIN/GLOBULIN RATIO 0.4 (1.0-1.7); CALCIUM 7.9 mg/dL (8.5-10.1); CREATININE 0.7 mg/dL (0.7-1.3); GFR 111.2; POTASSIUM 3.4 mmol/L (3.5-5.1); TOTAL BILIRUBIN 1.1 mg/dL (0.2-1.0); TOTAL PROTEIN 4.6 g/dL (6.4-8.2)
[2017-05-09 07:37] LABS: HCO3 ABG 25 mmol/L (21-28); PCO2 ABG 36 mmHg (35-46); PH ABG 7.47 (7.35-7.45); PO2 ABG 81 mmHg (65-108); SAT O2 ABG 96 % (92-99)
--- NOTE | 2017-05-09 07:42 | RAD ---
Portable chest, 05/09/2017: History: Respiratory failure Comparison is made to yesterday's exam. The ET tube tip lies well above the mehnaz. An NG tube extends into the stomach. A right jugular central venous catheter and a right PICC remain in place extending into the inferior aspect of the superior vena cava. The heart is within normal limits in size. There is a moderate persistent left basilar opacity obscuring the hemidiaphragm. The appearance suggests left lower lobe atelectasis/infiltrate. It has shown no improvement. A component of pleural fluid cannot be entirely excluded. No new abnormality is seen. IMPRESSION: 1. Stable tube placements. 2. Moderate ongoing left lower lobe atelectasis/infiltrate.
[2017-05-09] MEDS: MICAFUNGIN 100 MG in IV DEXTROSE 5% 100 ML IV SCH (08:00)
[2017-05-09 08:08] LABS: FIO2 ABG 30
[2017-05-09] MEDS: TPN PER PHARMACY MC PRN (08:10)
[2017-05-09] MEDS: FAMOTIDINE 20 MG/2 ML VIAL IVP SCH ×2 (09:00→20:49)
[2017-05-09] MEDS: DIGOXIN IV 500 MCG/2 ML AMPUL. IV SCH (09:00)
--- NOTE | 2017-05-09 09:50 | PDOC ---
PROGRESS NOTES Chief Complaint Chief Complaint s/p R colectomy Crohn's dz ASSESSMENT AND PLAN: 1. s/p R part colectomy: on 04/[address] Garcia. ex lap on 05/05, now with R ileostomy 2. Abd pain: post surgical, off [employer] dilaudid on 05/04; now intub.ed, sedated since 2nd surgery on 05/04; versed stopped 24hrs ago, remains unresponsive 3. Respir failure: vented. Pulm following 4. Hypotension: stable on pressors x2 - suspected sepsis. on empiric Zosyn, vanco, micafungin. Blood cult NGTD, pelvic abscess w/E.coli, yeast. 5. Leukocytosis: reactive, c/w infection. remains in mid-teens despite Abx. monitor 6. Thrombocytopenia: worsening. 2/2 ongoing infection (vs Abx ASE). d/w ID service 7. Afib with RVR: improved, but HR remains >100, at least partly due to meds, sepsis. 8. CHF: diastolic, nl EF. serial CXRs with increasing opacity in L base, poss effusion CHF with vascular congestion. peripherally fluid overloaded as well, but difficult to diurese on pressor 9. Hypokalemia: recurrent. replete per protocol 10. Coagulopathy: elevated INR pre-op. resolved 11. Prophylaxis: PPI Condition: critical Prognosis poor CC time 35 min History of Present Illness History of Present Illness intubated, sedated Vitals Vitals Vital Signs Date Time Temp Pulse Resp B/P (MAP) Pulse Ox O2 Delivery O2 Flow Rate FiO2 05/09/17 09:38 100 Ventilator 05/09/17 06:00 83 25 98/65 (76) 05/09/17 04:00 98.9 98.9 Physical Exam General: Other (intubated sedated) Heart: Other (tachy) Lungs: Clear, Other Abdomen: Other (min bowel sounds; LASHAUN drains with serosanguineous output) Extremities: No clubbing, Other (2-3+ edema) Skin: No rashes Labs LABS Laboratory Tests Test 05/09/17 06:00 05/09/17 08:00 White Blood Count 15.0 x10^3/uL (4.0-11.0) Red Blood Count 2.75 x10^6/uL (4.30-5.70) Hemoglobin 9.0 g/dL (13.0-17.5) Hematocrit 27.3 % (39.0-53.0) Mean Corpuscular Volume 99 fL (79-100) Mean Corpuscular Hemoglobin 33 pg (25-35) Mean Corpuscular Hemoglobin Concent 33 g/dL (31-37) Red Cell Distribution Width 17.2 % (11.5-14.5) Platelet Count 112 x10^3/uL (140-400) Neutrophils (%) (Auto) 86 % (31-73) Lymphocytes (%) (Auto) 8 % (24-48) Monocytes (%) (Auto) 5 % (0-9) Eosinophils (%) (Auto) 0 % (0-3) Basophils (%) (Auto) 0 % (0-3) Neutrophils # (Auto) 12.9 x10^3uL (1.8-7.7) Lymphocytes # (Auto) 1.2 x10^3/uL (1.0-4.8) Monocytes # (Auto) 0.8 x10^3/uL (0.0-1.1) Eosinophils # (Auto) 0.1 x10^3/uL (0.0-0.7) Basophils # (Auto) 0.0 x10^3/uL (0.0-0.2) Sodium Level 142 mmol/L (136-145) Potassium Level 3.4 mmol/L (3.5-5.1) Chloride Level 108 mmol/L (98-107) Carbon Dioxide Level 28 mmol/L (21-32) Anion Gap 6 (6-14) Blood Urea Nitrogen 18 mg/dL (8-26) Creatinine 0.7 mg/dL (0.7-1.3) Estimated GFR (Cockcroft-Gault) 111.2 BUN/Creatinine Ratio 26 (6-20) Glucose Level 128 mg/dL (70-99) Calcium Level 7.9 mg/dL (8.5-10.1) Total Bilirubin 1.1 mg/dL (0.2-1.0) Aspartate Amino Transf (AST/SGOT) 27 U/L (15-37) Alanine Aminotransferase (ALT/SGPT) 17 U/L (16-63) Alkaline Phosphatase 83 U/L (46-116) Total Protein 4.6 g/dL (6.4-8.2) Albumin 1.4 g/dL (3.4-5.0) Albumin/Globulin Ratio 0.4 (1.0-1.7) Triglycerides Level 213 mg/dL (0-150) O2 Saturation 96 % (92-99) Arterial Blood pH 7.47 (7.35-7.45) Arterial Blood pCO2 at Patient Temp 36 mmHg (35-46) Arterial Blood pO2 at Patient Temp 81 mmHg (65-108) Arterial Blood HCO3 25 mmol/L (21-28) Arterial Blood Base Excess 2 mmol/L (-3-3) FiO2 30 KAYLYNN CONNELL MD May 09, 2017 09:50
--- NOTE | 2017-05-09 10:28 | PDOC ---
PULMONARY PROGRESS NOTES Subjective REMAINS INTUBATED/ OFF VERSED, NOT RESPONSIVE STILL IN SHOCK, LOW DOSE PRESSOR Vitals Vital Signs Date Time Temp Pulse Resp B/P (MAP) Pulse Ox O2 Delivery O2 Flow Rate FiO2 05/09/17 09:38 100 Ventilator 05/09/17 09:00 88 23 95/71 (79) 05/09/17 07:00 98.0 98.0 General: Lethargic Lungs: Other (decrease bs) Cardiovascular: S1 Abdomen: Other (firm) Extremities: Other (1+edema) Skin: Warm Labs Laboratory Tests Test 05/07/17 10:45 05/07/17 12:00 05/07/17 20:20 05/08/17 05:50 Glucose (Fingerstick) 175 mg/dL (70-99) Lactic Acid Level 2.1 mmol/L (0.4-2.0) O2 Saturation 94 % (92-99) Arterial Blood pH 7.48 (7.35-7.45) Arterial Blood pCO2 at Patient Temp 37 mmHg (35-46) Arterial Blood pO2 at Patient Temp 66 mmHg (65-108) Arterial Blood HCO3 27 mmol/L (21-28) Arterial Blood Base Excess 4 mmol/L (-3-3) FiO2 30% Phosphorus Level 2.3 mg/dL (2.6-4.7) 3.0 mg/dL (2.6-4.7) White Blood Count 14.4 x10^3/uL (4.0-11.0) Red Blood Count 2.83 x10^6/uL (4.30-5.70) Hemoglobin 9.4 g/dL (13.0-17.5) Hematocrit 28.3 % (39.0-53.0) Mean Corpuscular Volume 100 fL (79-100) Mean Corpuscular Hemoglobin 33 pg (25-35) Mean Corpuscular Hemoglobin Concent 33 g/dL (31-37) Red Cell Distribution Width 16.7 % (11.5-14.5) Platelet Count 117 x10^3/uL (140-400) Neutrophils (%) (Auto) 85 % (31-73) Lymphocytes (%) (Auto) 10 % (24-48) Monocytes (%) (Auto) 5 % (0-9) Eosinophils (%) (Auto) 0 % (0-3) Basophils (%) (Auto) 0 % (0-3) Neutrophils # (Auto) 12.2 x10^3uL (1.8-7.7) Lymphocytes # (Auto) 1.4 x10^3/uL (1.0-4.8) Monocytes # (Auto) 0.7 x10^3/uL (0.0-1.1) Eosinophils # (Auto) 0.0 x10^3/uL (0.0-0.7) Basophils # (Auto) 0.0 x10^3/uL (0.0-0.2) Prothrombin Time 14.6 SEC (11.7-14.0) Prothromb Time International Ratio 1.2 (0.8-1.1) Sodium Level 141 mmol/L (136-145) Potassium Level 3.6 mmol/L (3.5-5.1) Chloride Level 106 mmol/L (98-107) Carbon Dioxide Level 28 mmol/L (21-32) Anion Gap 7 (6-14) Blood Urea Nitrogen 18 mg/dL (8-26) Creatinine 0.8 mg/dL (0.7-1.3) Estimated GFR (Cockcroft-Gault) 95.3 BUN/Creatinine Ratio 23 (6-20) Glucose Level 117 mg/dL (70-99) Calcium Level 7.7 mg/dL (8.5-10.1) Magnesium Level 2.0 mg/dL (1.8-2.4) Total Bilirubin 0.9 mg/dL (0.2-1.0) Aspartate Amino Transf (AST/SGOT) 37 U/L (15-37) Alanine Aminotransferase (ALT/SGPT) 19 U/L (16-63) Alkaline Phosphatase 78 U/L (46-116) Total Protein 4.1 g/dL (6.4-8.2) Albumin 1.7 g/dL (3.4-5.0) Albumin/Globulin Ratio 0.7 (1.0-1.7) Test 05/08/17 07:35 05/08/17 07:50 05/09/17 06:00 05/09/17 08:00 O2 Saturation 96 % (92-99) 96 % (92-99) Arterial Blood pH 7.47 (7.35-7.45) 7.47 (7.35-7.45) Arterial Blood pCO2 at Patient Temp 37 mmHg (35-46) 36 mmHg (35-46) Arterial Blood pO2 at Patient Temp 79 mmHg (65-108) 81 mmHg (65-108) Arterial Blood HCO3 26 mmol/L (21-28) 25 mmol/L (21-28) Arterial Blood Base Excess 2 mmol/L (-3-3) 2 mmol/L (-3-3) FiO2 30 30 Vancomycin Level Trough 14.5 mcg/mL (10.0-20.0) Vancomycin Last Dose Date 05/08/17 Vancomycin Last Dose Time 0000 White Blood Count 15.0 x10^3/uL (4.0-11.0) Red Blood Count 2.75 x10^6/uL (4.30-5.70) Hemoglobin 9.0 g/dL (13.0-17.5) Hematocrit 27.3 % (39.0-53.0) Mean Corpuscular Volume 99 fL (79-100) Mean Corpuscular Hemoglobin 33 pg (25-35) Mean Corpuscular Hemoglobin Concent 33 g/dL (31-37) Red Cell Distribution Width 17.2 % (11.5-14.5) Platelet Count 112 x10^3/uL (140-400) Neutrophils (%) (Auto) 86 % (31-73) Lymphocytes (%) (Auto) 8 % (24-48) Monocytes (%) (Auto) 5 % (0-9) Eosinophils (%) (Auto) 0 % (0-3) Basophils (%) (Auto) 0 % (0-3) Neutrophils # (Auto) 12.9 x10^3uL (1.8-7.7) Lymphocytes # (Auto) 1.2 x10^3/uL (1.0-4.8) Monocytes # (Auto) 0.8 x10^3/uL (0.0-1.1) Eosinophils # (Auto) 0.1 x10^3/uL (0.0-0.7) Basophils # (Auto) 0.0 x10^3/uL (0.0-0.2) Sodium Level 142 mmol/L (136-145) Potassium Level 3.4 mmol/L (3.5-5.1) Chloride Level 108 mmol/L (98-107) Carbon Dioxide Level 28 mmol/L (21-32) Anion Gap 6 (6-14) Blood Urea Nitrogen 18 mg/dL (8-26) Creatinine 0.7 mg/dL (0.7-1.3) Estimated GFR (Cockcroft-Gault) 111.2 BUN/Creatinine Ratio 26 (6-20) Glucose Level 128 mg/dL (70-99) Calcium Level 7.9 mg/dL (8.5-10.1) Total Bilirubin 1.1 mg/dL (0.2-1.0) Aspartate Amino Transf (AST/SGOT) 27 U/L (15-37) Alanine Aminotransferase (ALT/SGPT) 17 U/L (16-63) Alkaline Phosphatase 83 U/L (46-116) Total Protein 4.6 g/dL (6.4-8.2) Albumin 1.4 g/dL (3.4-5.0) Albumin/Globulin Ratio 0.4 (1.0-1.7) Triglycerides Level 213 mg/dL (0-150) Laboratory Tests Test 05/09/17 06:00 05/09/17 08:00 White Blood Count 15.0 x10^3/uL (4.0-11.0) Red Blood Count 2.75 x10^6/uL (4.30-5.70) Hemoglobin 9.0 g/dL (13.0-17.5) Hematocrit 27.3 % (39.0-53.0) Mean Corpuscular Volume 99 fL (79-100) Mean Corpuscular Hemoglobin 33 pg (25-35) Mean Corpuscular Hemoglobin Concent 33 g/dL (31-37) Red Cell Distribution Width 17.2 % (11.5-14.5) Platelet Count 112 x10^3/uL (140-400) Neutrophils (%) (Auto) 86 % (31-73) Lymphocytes (%) (Auto) 8 % (24-48) Monocytes (%) (Auto) 5 % (0-9) Eosinophils (%) (Auto) 0 % (0-3) Basophils (%) (Auto) 0 % (0-3) Neutrophils # (Auto) 12.9 x10^3uL (1.8-7.7) Lymphocytes # (Auto) 1.2 x10^3/uL (1.0-4.8) Monocytes # (Auto) 0.8 x10^3/uL (0.0-1.1) Eosinophils # (Auto) 0.1 x10^3/uL (0.0-0.7) Basophils # (Auto) 0.0 x10^3/uL (0.0-0.2) Sodium Level 142 mmol/L (136-145) Potassium Level 3.4 mmol/L (3.5-5.1) Chloride Level 108 mmol/L (98-107) Carbon Dioxide Level 28 mmol/L (21-32) Anion Gap 6 (6-14) Blood Urea Nitrogen 18 mg/dL (8-26) Creatinine 0.7 mg/dL (0.7-1.3) Estimated GFR (Cockcroft-Gault) 111.2 BUN/Creatinine Ratio 26 (6-20) Glucose Level 128 mg/dL (70-99) Calcium Level 7.9 mg/dL (8.5-10.1) Total Bilirubin 1.1 mg/dL (0.2-1.0) Aspartate Amino Transf (AST/SGOT) 27 U/L (15-37) Alanine Aminotransferase (ALT/SGPT) 17 U/L (16-63) Alkaline Phosphatase 83 U/L (46-116) Total Protein 4.6 g/dL (6.4-8.2) Albumin 1.4 g/dL (3.4-5.0) Albumin/Globulin Ratio 0.4 (1.0-1.7) Triglycerides Level 213 mg/dL (0-150) O2 Saturation 96 % (92-99) Arterial Blood pH 7.47 (7.35-7.45) Arterial Blood pCO2 at Patient Temp 36 mmHg (35-46) Arterial Blood pO2 at Patient Temp 81 mmHg (65-108) Arterial Blood HCO3 25 mmol/L (21-28) Arterial Blood Base Excess 2 mmol/L (-3-3) FiO2 30 Medications Active Scripts Medications Dose Route/Sig Max Daily Dose Days Date Category Melatonin 3 Mg Tablet 1 Tab PO QHS 04/22/17 Reported Move Free Joint Health Tablet (Glucosam/Chond/Hyalu/Cf Borate) 1 Each Tablet 1 Each PO DAILY 04/22/17 Reported Digoxin 125 Mcg Tablet 1 Tab PO DAILY 04/22/17 Reported Prednisone 10 Mg Tablet 10 Mg PO DAILY 6/14/17 Reported Comments CXR 05/09 LLL infiltrate vs atelectasis Impression . 1. Acute respiratory failure, expected post -op 2. septic shock, on low dose pressor 3. Metabolic acidosis/ lactic acidosis, improving 4. chronic A-Fib 5. Crohn's Dx, who has h/o perforated viscous and underwent lap with resection . Cults + for H para/Clostridium Ramsom/Bacteroides/Strep bovis. D/cd home with Augmentin. Presented electively for an extended right colon resection with ileocolotomy 04/29. Taken back to OR ruptured ileo-colic anastomosis, fecal impaction s/p rigid procto, disimpaction, ex lap, resection of ileo-colic anastomosis, end ileostomy, Evans's pouch, 6. Persistent encephalopathy Plan . 1. AC mode. 2. Not ready for weaning. sedation turned off, Once awake, CPAP trial 3. Continue to wean levophed/ off vasopressin 4. off HCO3 drip 5. BS antibiotic per ID 6. fentanyl for now 7. volume challenge prn 8. TPN, Na acetate added 9. d/w RN cct 25 min KEVIN LORA MD May 09, 2017 10:28
--- NOTE | 2017-05-09 10:38 | PDOC ---
Infectious Disease Note Subjective Subjective Remains intubated. FiO2 30% TPN Hypotensive, on 2 pressors No fever ROS ROS Unobtainable Vital Sign Vital Signs Vital Signs Date Time Temp Pulse Resp B/P (MAP) Pulse Ox O2 Delivery O2 Flow Rate FiO2 05/09/17 09:38 100 Ventilator 05/09/17 09:00 88 23 95/71 (79) 05/09/17 07:00 98.0 98.0 Physical Exam PHYSICAL EXAM GENERAL: Intubated. HEENT: ETT, OGT; Oral mucosa dry LUNG - CTA CV - Normal S1 and S2. ABD: Distended, ostomy, + output. LASHAUN x 3. Right flank erythema and thicken skin. BS quiet : Wagner. + scrotal swelling EXT: Generalized edema. No cyanosis SKIN no rash NEURO: Unresponsive RIJ and RUE-PICC Labs Lab Laboratory Tests Test 05/09/17 06:00 05/09/17 08:00 White Blood Count 15.0 x10^3/uL (4.0-11.0) Red Blood Count 2.75 x10^6/uL (4.30-5.70) Hemoglobin 9.0 g/dL (13.0-17.5) Hematocrit 27.3 % (39.0-53.0) Mean Corpuscular Volume 99 fL (79-100) Mean Corpuscular Hemoglobin 33 pg (25-35) Mean Corpuscular Hemoglobin Concent 33 g/dL (31-37) Red Cell Distribution Width 17.2 % (11.5-14.5) Platelet Count 112 x10^3/uL (140-400) Neutrophils (%) (Auto) 86 % (31-73) Lymphocytes (%) (Auto) 8 % (24-48) Monocytes (%) (Auto) 5 % (0-9) Eosinophils (%) (Auto) 0 % (0-3) Basophils (%) (Auto) 0 % (0-3) Neutrophils # (Auto) 12.9 x10^3uL (1.8-7.7) Lymphocytes # (Auto) 1.2 x10^3/uL (1.0-4.8) Monocytes # (Auto) 0.8 x10^3/uL (0.0-1.1) Eosinophils # (Auto) 0.1 x10^3/uL (0.0-0.7) Basophils # (Auto) 0.0 x10^3/uL (0.0-0.2) Sodium Level 142 mmol/L (136-145) Potassium Level 3.4 mmol/L (3.5-5.1) Chloride Level 108 mmol/L (98-107) Carbon Dioxide Level 28 mmol/L (21-32) Anion Gap 6 (6-14) Blood Urea Nitrogen 18 mg/dL (8-26) Creatinine 0.7 mg/dL (0.7-1.3) Estimated GFR (Cockcroft-Gault) 111.2 BUN/Creatinine Ratio 26 (6-20) Glucose Level 128 mg/dL (70-99) Calcium Level 7.9 mg/dL (8.5-10.1) Total Bilirubin 1.1 mg/dL (0.2-1.0) Aspartate Amino Transf (AST/SGOT) 27 U/L (15-37) Alanine Aminotransferase (ALT/SGPT) 17 U/L (16-63) Alkaline Phosphatase 83 U/L (46-116) Total Protein 4.6 g/dL (6.4-8.2) Albumin 1.4 g/dL (3.4-5.0) Albumin/Globulin Ratio 0.4 (1.0-1.7) Triglycerides Level 213 mg/dL (0-150) O2 Saturation 96 % (92-99) Arterial Blood pH 7.47 (7.35-7.45) Arterial Blood pCO2 at Patient Temp 36 mmHg (35-46) Arterial Blood pO2 at Patient Temp 81 mmHg (65-108) Arterial Blood HCO3 25 mmol/L (21-28) Arterial Blood Base Excess 2 mmol/L (-3-3) FiO2 30 Micro Blood cultures NGTD Pelvis abscess GRAM STAIN Final WBCS MANY RBCS MANY GRAM POSITIVE COCCI FEW YEAST FEW MODERATE TINY GRAM POSITIVE COCCI, SUGGESTIVE OF ANAEROBES ANAEROBIC-AEROBIC CULTURE PENDING ANAEROBIC RES 1 PENDING AEROBIC RES 1 Final Escherichia coli AEROBIC RES 2 Final Yeast Light growth Request for further identification must be made within 1 week. AEROBIC RES 3 Final Mixed skin kale Antibiotic RSLT#1 RSLT#2 RSLT#3 RSLT#4 Amoxicillin/Clavulanic Acid S Ampicillin S Cefepime S Ceftriaxone S Cefuroxime S Ciprofloxacin S Ertapenem S Gentamicin S Imipenem S Levofloxacin S Piperacillin S Tetracycline S Tobramycin S Trimethoprim/Sulfa S Objective Assessment Pelvic abscess. Gram stain: GPC, yeast, anaerobes. Culture E. coli (pansensitive ), yeast so far Sepsis with hypotension, on pressors Leukocytosis - post op vs ID Ruptured ileo-colic anastomosis, fecal impaction s/p rigid procto, disimpaction , ex lap, resection of ileo-colic anastomosis, end ileostomy, Evans's pouch, [place] 05/05 Right flank ? cellulitis Immunosuppression Afib Thrombocytopenia, trending down H/o H para/Clostridium Ramsom/Bacteroides/Strep bovis January 2017 Plan Plan of Care Cont Vanc, Zosyn and micafungin Vanc trough 14.5 F/u labs and cults D/w micro, yeast to be work-up Critically ill Attending Co-Sign The patient was seen and interviewed as well as examined at the bedside. The chart was reviewed. The case was discussed. Agree with the plan of care. d/w BRITTANY GAINES APRN May 09, 2017 10:38 KELSIE CANTU MD May 09, 2017 13:22
--- NOTE | 2017-05-09 10:54 | PDOC ---
FERNANDO CEJA DEHYDRATOR TENDER 05/09/17 1054: SURGICAL PROGRESS NOTE Subjective off sedated, unresponsive pressors continued vent Vital Signs Vital Signs Date Time Temp Pulse Resp B/P (MAP) Pulse Ox O2 Delivery O2 Flow Rate FiO2 05/09/17 09:38 100 Ventilator 05/09/17 09:00 88 23 95/71 (79) 05/09/17 07:00 98.0 98.0 I&O Intake and Output 05/09/17 06:59 Intake Total 4551.89 ml Output Total 2805 ml Balance 1746.89 ml Intake Oral 0 ml IV Total 4006.89 ml Other 545 ml Output Urine Total 1040 ml Stool Total 1625 ml Gastric Drainage Total 100 ml Drainage Total 40 ml General: No acute distress, Other (unresponsive) HEENT: Other (mech vent) Abdomen: Soft, Other (ostomy with stool, LASHAUN serosang, wound intact) Labs Laboratory Tests Test 05/07/17 12:00 05/07/17 20:20 05/08/17 05:50 05/08/17 07:35 O2 Saturation 94 % (92-99) 96 % (92-99) Arterial Blood pH 7.48 (7.35-7.45) 7.47 (7.35-7.45) Arterial Blood pCO2 at Patient Temp 37 mmHg (35-46) 37 mmHg (35-46) Arterial Blood pO2 at Patient Temp 66 mmHg (65-108) 79 mmHg (65-108) Arterial Blood HCO3 27 mmol/L (21-28) 26 mmol/L (21-28) Arterial Blood Base Excess 4 mmol/L (-3-3) 2 mmol/L (-3-3) FiO2 30% 30 Phosphorus Level 2.3 mg/dL (2.6-4.7) 3.0 mg/dL (2.6-4.7) White Blood Count 14.4 x10^3/uL (4.0-11.0) Red Blood Count 2.83 x10^6/uL (4.30-5.70) Hemoglobin 9.4 g/dL (13.0-17.5) Hematocrit 28.3 % (39.0-53.0) Mean Corpuscular Volume 100 fL (79-100) Mean Corpuscular Hemoglobin 33 pg (25-35) Mean Corpuscular Hemoglobin Concent 33 g/dL (31-37) Red Cell Distribution Width 16.7 % (11.5-14.5) Platelet Count 117 x10^3/uL (140-400) Neutrophils (%) (Auto) 85 % (31-73) Lymphocytes (%) (Auto) 10 % (24-48) Monocytes (%) (Auto) 5 % (0-9) Eosinophils (%) (Auto) 0 % (0-3) Basophils (%) (Auto) 0 % (0-3) Neutrophils # (Auto) 12.2 x10^3uL (1.8-7.7) Lymphocytes # (Auto) 1.4 x10^3/uL (1.0-4.8) Monocytes # (Auto) 0.7 x10^3/uL (0.0-1.1) Eosinophils # (Auto) 0.0 x10^3/uL (0.0-0.7) Basophils # (Auto) 0.0 x10^3/uL (0.0-0.2) Prothrombin Time 14.6 SEC (11.7-14.0) Prothromb Time International Ratio 1.2 (0.8-1.1) Sodium Level 141 mmol/L (136-145) Potassium Level 3.6 mmol/L (3.5-5.1) Chloride Level 106 mmol/L (98-107) Carbon Dioxide Level 28 mmol/L (21-32) Anion Gap 7 (6-14) Blood Urea Nitrogen 18 mg/dL (8-26) Creatinine 0.8 mg/dL (0.7-1.3) Estimated GFR (Cockcroft-Gault) 95.3 BUN/Creatinine Ratio 23 (6-20) Glucose Level 117 mg/dL (70-99) Calcium Level 7.7 mg/dL (8.5-10.1) Magnesium Level 2.0 mg/dL (1.8-2.4) Total Bilirubin 0.9 mg/dL (0.2-1.0) Aspartate Amino Transf (AST/SGOT) 37 U/L (15-37) Alanine Aminotransferase (ALT/SGPT) 19 U/L (16-63) Alkaline Phosphatase 78 U/L (46-116) Total Protein 4.1 g/dL (6.4-8.2) Albumin 1.7 g/dL (3.4-5.0) Albumin/Globulin Ratio 0.7 (1.0-1.7) Test 05/08/17 07:50 05/09/17 06:00 05/09/17 08:00 Vancomycin Level Trough 14.5 mcg/mL (10.0-20.0) Vancomycin Last Dose Date 05/08/17 Vancomycin Last Dose Time 0000 White Blood Count 15.0 x10^3/uL (4.0-11.0) Red Blood Count 2.75 x10^6/uL (4.30-5.70) Hemoglobin 9.0 g/dL (13.0-17.5) Hematocrit 27.3 % (39.0-53.0) Mean Corpuscular Volume 99 fL (79-100) Mean Corpuscular Hemoglobin 33 pg (25-35) Mean Corpuscular Hemoglobin Concent 33 g/dL (31-37) Red Cell Distribution Width 17.2 % (11.5-14.5) Platelet Count 112 x10^3/uL (140-400) Neutrophils (%) (Auto) 86 % (31-73) Lymphocytes (%) (Auto) 8 % (24-48) Monocytes (%) (Auto) 5 % (0-9) Eosinophils (%) (Auto) 0 % (0-3) Basophils (%) (Auto) 0 % (0-3) Neutrophils # (Auto) 12.9 x10^3uL (1.8-7.7) Lymphocytes # (Auto) 1.2 x10^3/uL (1.0-4.8) Monocytes # (Auto) 0.8 x10^3/uL (0.0-1.1) Eosinophils # (Auto) 0.1 x10^3/uL (0.0-0.7) Basophils # (Auto) 0.0 x10^3/uL (0.0-0.2) Sodium Level 142 mmol/L (136-145) Potassium Level 3.4 mmol/L (3.5-5.1) Chloride Level 108 mmol/L (98-107) Carbon Dioxide Level 28 mmol/L (21-32) Anion Gap 6 (6-14) Blood Urea Nitrogen 18 mg/dL (8-26) Creatinine 0.7 mg/dL (0.7-1.3) Estimated GFR (Cockcroft-Gault) 111.2 BUN/Creatinine Ratio 26 (6-20) Glucose Level 128 mg/dL (70-99) Calcium Level 7.9 mg/dL (8.5-10.1) Total Bilirubin 1.1 mg/dL (0.2-1.0) Aspartate Amino Transf (AST/SGOT) 27 U/L (15-37) Alanine Aminotransferase (ALT/SGPT) 17 U/L (16-63) Alkaline Phosphatase 83 U/L (46-116) Total Protein 4.6 g/dL (6.4-8.2) Albumin 1.4 g/dL (3.4-5.0) Albumin/Globulin Ratio 0.4 (1.0-1.7) Triglycerides Level 213 mg/dL (0-150) O2 Saturation 96 % (92-99) Arterial Blood pH 7.47 (7.35-7.45) Arterial Blood pCO2 at Patient Temp 36 mmHg (35-46) Arterial Blood pO2 at Patient Temp 81 mmHg (65-108) Arterial Blood HCO3 25 mmol/L (21-28) Arterial Blood Base Excess 2 mmol/L (-3-3) FiO2 30 Laboratory Tests Test 05/09/17 06:00 05/09/17 08:00 White Blood Count 15.0 x10^3/uL (4.0-11.0) Red Blood Count 2.75 x10^6/uL (4.30-5.70) Hemoglobin 9.0 g/dL (13.0-17.5) Hematocrit 27.3 % (39.0-53.0) Mean Corpuscular Volume 99 fL (79-100) Mean Corpuscular Hemoglobin 33 pg (25-35) Mean Corpuscular Hemoglobin Concent 33 g/dL (31-37) Red Cell Distribution Width 17.2 % (11.5-14.5) Platelet Count 112 x10^3/uL (140-400) Neutrophils (%) (Auto) 86 % (31-73) Lymphocytes (%) (Auto) 8 % (24-48) Monocytes (%) (Auto) 5 % (0-9) Eosinophils (%) (Auto) 0 % (0-3) Basophils (%) (Auto) 0 % (0-3) Neutrophils # (Auto) 12.9 x10^3uL (1.8-7.7) Lymphocytes # (Auto) 1.2 x10^3/uL (1.0-4.8) Monocytes # (Auto) 0.8 x10^3/uL (0.0-1.1) Eosinophils # (Auto) 0.1 x10^3/uL (0.0-0.7) Basophils # (Auto) 0.0 x10^3/uL (0.0-0.2) Sodium Level 142 mmol/L (136-145) Potassium Level 3.4 mmol/L (3.5-5.1) Chloride Level 108 mmol/L (98-107) Carbon Dioxide Level 28 mmol/L (21-32) Anion Gap 6 (6-14) Blood Urea Nitrogen 18 mg/dL (8-26) Creatinine 0.7 mg/dL (0.7-1.3) Estimated GFR (Cockcroft-Gault) 111.2 BUN/Creatinine Ratio 26 (6-20) Glucose Level 128 mg/dL (70-99) Calcium Level 7.9 mg/dL (8.5-10.1) Total Bilirubin 1.1 mg/dL (0.2-1.0) Aspartate Amino Transf (AST/SGOT) 27 U/L (15-37) Alanine Aminotransferase (ALT/SGPT) 17 U/L (16-63) Alkaline Phosphatase 83 U/L (46-116) Total Protein 4.6 g/dL (6.4-8.2) Albumin 1.4 g/dL (3.4-5.0) Albumin/Globulin Ratio 0.4 (1.0-1.7) Triglycerides Level 213 mg/dL (0-150) O2 Saturation 96 % (92-99) Arterial Blood pH 7.47 (7.35-7.45) Arterial Blood pCO2 at Patient Temp 36 mmHg (35-46) Arterial Blood pO2 at Patient Temp 81 mmHg (65-108) Arterial Blood HCO3 25 mmol/L (21-28) Arterial Blood Base Excess 2 mmol/L (-3-3) FiO2 30 Problem List sepsis, resp failure s/p resection, crohns Problems: RYAN AUSTIN MD 05/09/17 9819: SURGICAL PROGRESS NOTE Assessment/Plan Agree with above Problems: FERNANDO CEJA DEHYDRATOR TENDER May 09, 2017 10:54 RYAN AUSTIN MD May 09, 2017 16:49
[2017-05-09] MEDS: CHLORHEXIDINE 0.12% 15 ML MOUTHWASH. SWSP SCH ×2 (13:00→20:49)
[2017-05-09] MEDS ORDERED: TOTAL PARENTERAL NUTRITION IV SCH ×11 (22:00)
[2017-05-09] MEDS ORDERED: [UNRECOGNIZED DRUG - OTHER] IV SCH ×11 (22:00)
[2017-05-09] MEDS ORDERED: AMINO ACIDS IV SCH ×11 (22:00)
[2017-05-09] MEDS ORDERED: DEXTROSE 70% IV SCH ×11 (22:00)
[2017-05-10] VITALS (24 sets, daily range): BP systolic 94–155; BP diastolic 42–89
[2017-05-10 06:20] LABS: BASO # 0.1 x10^3/uL (0.0-0.2); BASO % 1 % (0-3); EOS % 0 % (0-3); HEMATOCRIT 27.9 % (39.0-53.0); HEMOGLOBIN 9.8 g/dL (13.0-17.5); LYMPH # 1.7 x10^3/uL (1.0-4.8); LYMPH % 10 % (24-48); MEAN CORPUSCULAR HEMOGLOBIN 34 pg (25-35); MEAN CORPUSCULAR HGB CONC 35 g/dL (31-37); MEAN CORPUSCULAR VOLUME 97 fL (79-100); MONO % 4 % (0-9); NEUT % 86 % (31-73); PLATELET COUNT 150 x10^3/uL (140-400); RED BLOOD COUNT 2.86 x10^6/uL (4.30-5.70); RED CELL DISTRIBUTION WIDTH 17.1 % (11.5-14.5); WHITE BLOOD COUNT 17.6 x10^3/uL (4.0-11.0)
[2017-05-10] MEDS: IV NORMAL SALINE 1000ML BAG 1,000 ML IV SCH ×4 (06:26→21:23)
[2017-05-10] MEDS: ENOXAPARIN 40 MG/0.4 ML SYRINGE. SQ SCH ×2 (06:27→21:23)
[2017-05-10 06:48] LABS: ALBUMIN 1.3 g/dL (3.4-5.0); ALBUMIN/GLOBULIN RATIO 0.4 (1.0-1.7); CALCIUM 7.8 mg/dL (8.5-10.1); CREATININE 0.7 mg/dL (0.7-1.3); GFR 111.2; POTASSIUM 3.4 mmol/L (3.5-5.1); TOTAL BILIRUBIN 1.4 mg/dL (0.2-1.0); TOTAL PROTEIN 4.8 g/dL (6.4-8.2)
[2017-05-10] MEDS: TPN PER PHARMACY MC PRN ×2 (07:29→07:32)
--- NOTE | 2017-05-10 07:42 | RAD ---
Portable chest, 05/10/2017: History: Respiratory failure Comparison is made to yesterday's study. The ET tube tip lies 4 cm above the mehnaz. A right PICC and a right jugular central venous catheter extends into the superior vena cava. An NG tube extends into the stomach. The heart size is unchanged. The pulmonary vascularity is at the upper limits of normal. There is a moderate ongoing left basilar opacity obscuring the hemidiaphragm. The appearance again suggests left lower lobe atelectasis and consolidation with possible pleural fluid. There is new hazy right basilar opacity suggesting atelectasis/infiltrate. IMPRESSION: 1. Various tubes and catheters remain in place in satisfactory positions. 2. Unchanged left lower lobe atelectasis/consolidation. 3. Developing mild right basilar atelectasis/infiltrate.
--- NOTE | 2017-05-10 08:20 | PDOC ---
PROGRESS NOTES Chief Complaint Chief Complaint s/p R colectomy Crohn's dz ASSESSMENT AND PLAN: 1. s/p R part colectomy: on 04/[address] Garcia. ex lap on 05/05, now with R ileostomy. copious drainage from NGT, ostomy 2. Abd pain: post surgical, off MACHINE [employer]CH [employer]KER dilaudid on 05/04; now intub.ed, sedated since 2nd surgery on 05/04; versed stopped on 05/08 3. Pelvic abscess: E.coli, yeast. blood cult NGTD. Abx switched to ceftriax only by ID service. d/w Dr Coates 3. Respir failure: vented. Pulm following 4. Hypotension: stable on pressors x2 - suspected sepsis. Blood cult NGTD 5. Leukocytosis: reactive, c/w infection. remains in mid-teens despite Abx, sl higher today. monitor 6. Thrombocytopenia: recovering! 7. Afib with RVR: improved, HR in 90s, at least partly due to pressors, sepsis. 8. CHF: diastolic, nl EF. serial CXRs with increasing opacity in L base, poss effusion CHF with vascular congestion. peripherally fluid overloaded as well, but difficult to diurese on pressor 9. Hypokalemia: recurrent. replete per protocol 10. Coagulopathy: elevated INR pre-op. resolved 11. Prophylaxis: PPI Condition: critical Prognosis poor CC time 40 min History of Present Illness History of Present Illness intubated, sedated Vitals Vitals Vital Signs Date Time Temp Pulse Resp B/P (MAP) Pulse Ox O2 Delivery O2 Flow Rate FiO2 05/10/17 06:00 91 27 127/89 (102) 100 Ventilator 05/10/17 04:00 99.3 99.3 Physical Exam General: Other (intubated sedated) Heart: Other (tachy) Lungs: Clear, Other Abdomen: Other (min bowel sounds; LASHAUN drains with serosanguineous output) Extremities: No clubbing, Other (2-3+ edema) Skin: No rashes Labs LABS Laboratory Tests Test 05/10/17 06:05 White Blood Count 17.6 x10^3/uL (4.0-11.0) Red Blood Count 2.86 x10^6/uL (4.30-5.70) Hemoglobin 9.8 g/dL (13.0-17.5) Hematocrit 27.9 % (39.0-53.0) Mean Corpuscular Volume 97 fL (79-100) Mean Corpuscular Hemoglobin 34 pg (25-35) Mean Corpuscular Hemoglobin Concent 35 g/dL (31-37) Red Cell Distribution Width 17.1 % (11.5-14.5) Platelet Count 150 x10^3/uL (140-400) Neutrophils (%) (Auto) 86 % (31-73) Lymphocytes (%) (Auto) 10 % (24-48) Monocytes (%) (Auto) 4 % (0-9) Eosinophils (%) (Auto) 0 % (0-3) Basophils (%) (Auto) 1 % (0-3) Neutrophils # (Auto) 15.1 x10^3uL (1.8-7.7) Lymphocytes # (Auto) 1.7 x10^3/uL (1.0-4.8) Monocytes # (Auto) 0.7 x10^3/uL (0.0-1.1) Eosinophils # (Auto) 0.0 x10^3/uL (0.0-0.7) Basophils # (Auto) 0.1 x10^3/uL (0.0-0.2) Sodium Level 145 mmol/L (136-145) Potassium Level 3.4 mmol/L (3.5-5.1) Chloride Level 111 mmol/L (98-107) Carbon Dioxide Level 28 mmol/L (21-32) Anion Gap 6 (6-14) Blood Urea Nitrogen 15 mg/dL (8-26) Creatinine 0.7 mg/dL (0.7-1.3) Estimated GFR (Cockcroft-Gault) 111.2 BUN/Creatinine Ratio 21 (6-20) Glucose Level 122 mg/dL (70-99) Calcium Level 7.8 mg/dL (8.5-10.1) Total Bilirubin 1.4 mg/dL (0.2-1.0) Aspartate Amino Transf (AST/SGOT) 25 U/L (15-37) Alanine Aminotransferase (ALT/SGPT) 14 U/L (16-63) Alkaline Phosphatase 92 U/L (46-116) Total Protein 4.8 g/dL (6.4-8.2) Albumin 1.3 g/dL (3.4-5.0) Albumin/Globulin Ratio 0.4 (1.0-1.7) KAYLYNN CONNELL MD May 10, 2017 08:20
--- NOTE | 2017-05-10 08:40 | PDOC ---
Infectious Disease Note Subjective Subjective Remains intubated. FiO2 30% TPN Hypotensive, on 2 pressors No fever ROS ROS GEN: Denies fevers, chills, sweats HEENT: Denies blurred vision, sore throat CV: Denies chest pain RESP: Denies shortness of air, cough GI: Denies n/v/d NEURO: Denies confusion, dizziness MSK: Denies weakness, joint pain/swelling Vital Sign Vital Signs Vital Signs Date Time Temp Pulse Resp B/P (MAP) Pulse Ox O2 Delivery O2 Flow Rate FiO2 05/10/17 06:00 91 27 127/89 (102) 100 Ventilator 05/10/17 04:00 99.3 99.3 Physical Exam PHYSICAL EXAM GENERAL: Intubated. HEENT: ETT, OGT; Oral mucosa dry LUNG - CTA CV - Normal S1 and S2. ABD: Distended, ostomy, + output. LASHAUN x 3. Right flank erythema and thicken skin. BS hypoactive : Wagner. + scrotal swelling EXT: Generalized edema. No cyanosis SKIN no rash NEURO: Unresponsive to verbal and tactile stimuli RIJ and RUE-PICC Labs Lab Laboratory Tests Test 05/10/17 06:05 White Blood Count 17.6 x10^3/uL (4.0-11.0) Red Blood Count 2.86 x10^6/uL (4.30-5.70) Hemoglobin 9.8 g/dL (13.0-17.5) Hematocrit 27.9 % (39.0-53.0) Mean Corpuscular Volume 97 fL (79-100) Mean Corpuscular Hemoglobin 34 pg (25-35) Mean Corpuscular Hemoglobin Concent 35 g/dL (31-37) Red Cell Distribution Width 17.1 % (11.5-14.5) Platelet Count 150 x10^3/uL (140-400) Neutrophils (%) (Auto) 86 % (31-73) Lymphocytes (%) (Auto) 10 % (24-48) Monocytes (%) (Auto) 4 % (0-9) Eosinophils (%) (Auto) 0 % (0-3) Basophils (%) (Auto) 1 % (0-3) Neutrophils # (Auto) 15.1 x10^3uL (1.8-7.7) Lymphocytes # (Auto) 1.7 x10^3/uL (1.0-4.8) Monocytes # (Auto) 0.7 x10^3/uL (0.0-1.1) Eosinophils # (Auto) 0.0 x10^3/uL (0.0-0.7) Basophils # (Auto) 0.1 x10^3/uL (0.0-0.2) Sodium Level 145 mmol/L (136-145) Potassium Level 3.4 mmol/L (3.5-5.1) Chloride Level 111 mmol/L (98-107) Carbon Dioxide Level 28 mmol/L (21-32) Anion Gap 6 (6-14) Blood Urea Nitrogen 15 mg/dL (8-26) Creatinine 0.7 mg/dL (0.7-1.3) Estimated GFR (Cockcroft-Gault) 111.2 BUN/Creatinine Ratio 21 (6-20) Glucose Level 122 mg/dL (70-99) Calcium Level 7.8 mg/dL (8.5-10.1) Total Bilirubin 1.4 mg/dL (0.2-1.0) Aspartate Amino Transf (AST/SGOT) 25 U/L (15-37) Alanine Aminotransferase (ALT/SGPT) 14 U/L (16-63) Alkaline Phosphatase 92 U/L (46-116) Total Protein 4.8 g/dL (6.4-8.2) Albumin 1.3 g/dL (3.4-5.0) Albumin/Globulin Ratio 0.4 (1.0-1.7) Micro Blood cultures NGTD Pelvis abscess GRAM STAIN Final WBCS MANY RBCS MANY GRAM POSITIVE COCCI FEW YEAST FEW MODERATE TINY GRAM POSITIVE COCCI, SUGGESTIVE OF ANAEROBES ANAEROBIC-AEROBIC CULTURE PENDING ANAEROBIC RES 1 PENDING AEROBIC RES 1 Final Escherichia coli AEROBIC RES 2 Final Yeast Light growth Request for further identification must be made within 1 week. AEROBIC RES 3 Final Mixed skin kale Antibiotic RSLT#1 RSLT#2 RSLT#3 RSLT#4 Amoxicillin/Clavulanic Acid S Ampicillin S Cefepime S Ceftriaxone S Cefuroxime S Ciprofloxacin S Ertapenem S Gentamicin S Imipenem S Levofloxacin S Piperacillin S Tetracycline S Tobramycin S Trimethoprim/Sulfa S Objective Assessment Pelvic abscess. Gram stain: GPC, yeast, anaerobes. Culture E. coli (pansensitive ), yeast so far Sepsis with hypotension, on pressors Leukocytosis, trending up Ruptured ileo-colic anastomosis, fecal impaction s/p rigid procto, disimpaction , ex lap, resection of ileo-colic anastomosis, end ileostomy, Evans's pouch, DALLIN 05/05 Right flank ? 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 The chart was reviewed. The case was discussed. Agree with the plan of care. BRITTANY GAINES APRN May 10, 2017 08:40 KELSIE CANTU MD May 10, 2017 12:55
[2017-05-10 08:46] LABS: HCO3 ABG 25 mmol/L (21-28); PCO2 ABG 35 mmHg (35-46); PH ABG 7.46 (7.35-7.45); PO2 ABG 81 mmHg (65-108); SAT O2 ABG 96 % (92-99)
[2017-05-10 08:48] LABS: FIO2 ABG 30
--- NOTE | 2017-05-10 09:31 | PDOC ---
FERNANDO CEJA FELTMAKER AND WEIGHER 05/10/17 0931: SURGICAL PROGRESS NOTE Subjective intubated, no sedation Vital Signs Vital Signs Date Time Temp Pulse Resp B/P (MAP) Pulse Ox O2 Delivery O2 Flow Rate FiO2 05/10/17 08:33 99 Ventilator 05/10/17 06:00 91 27 127/89 (102) 05/10/17 04:00 99.3 99.3 I&O Intake and Output 05/10/17 07:00 Intake Total 4855.9 ml Output Total 2035 ml Balance 2820.9 ml Intake Oral 0 ml IV Total 4855.9 ml Output Urine Total 1410 ml Stool Total 375 ml Drainage Total 250 ml PATIENT HAS A YANCEY: Yes General: Other (does have response to painful stimuli) Abdomen: Soft, Other (wound, some drainage, mid incision seperation of suture line, ileostomy with stool, there is erythema/warmth to right flank/RLQ, one cami is serosang, other cami is cloudy serous) Labs Laboratory Tests Test 05/09/17 06:00 05/09/17 08:00 05/10/17 06:05 05/10/17 08:00 White Blood Count 15.0 x10^3/uL (4.0-11.0) 17.6 x10^3/uL (4.0-11.0) Red Blood Count 2.75 x10^6/uL (4.30-5.70) 2.86 x10^6/uL (4.30-5.70) Hemoglobin 9.0 g/dL (13.0-17.5) 9.8 g/dL (13.0-17.5) Hematocrit 27.3 % (39.0-53.0) 27.9 % (39.0-53.0) Mean Corpuscular Volume 99 fL (79-100) 97 fL (79-100) Mean Corpuscular Hemoglobin 33 pg (25-35) 34 pg (25-35) Mean Corpuscular Hemoglobin Concent 33 g/dL (31-37) 35 g/dL (31-37) Red Cell Distribution Width 17.2 % (11.5-14.5) 17.1 % (11.5-14.5) Platelet Count 112 x10^3/uL (140-400) 150 x10^3/uL (140-400) Neutrophils (%) (Auto) 86 % (31-73) 86 % (31-73) Lymphocytes (%) (Auto) 8 % (24-48) 10 % (24-48) Monocytes (%) (Auto) 5 % (0-9) 4 % (0-9) Eosinophils (%) (Auto) 0 % (0-3) 0 % (0-3) Basophils (%) (Auto) 0 % (0-3) 1 % (0-3) Neutrophils # (Auto) 12.9 x10^3uL (1.8-7.7) 15.1 x10^3uL (1.8-7.7) Lymphocytes # (Auto) 1.2 x10^3/uL (1.0-4.8) 1.7 x10^3/uL (1.0-4.8) Monocytes # (Auto) 0.8 x10^3/uL (0.0-1.1) 0.7 x10^3/uL (0.0-1.1) Eosinophils # (Auto) 0.1 x10^3/uL (0.0-0.7) 0.0 x10^3/uL (0.0-0.7) Basophils # (Auto) 0.0 x10^3/uL (0.0-0.2) 0.1 x10^3/uL (0.0-0.2) Sodium Level 142 mmol/L (136-145) 145 mmol/L (136-145) Potassium Level 3.4 mmol/L (3.5-5.1) 3.4 mmol/L (3.5-5.1) Chloride Level 108 mmol/L (98-107) 111 mmol/L (98-107) Carbon Dioxide Level 28 mmol/L (21-32) 28 mmol/L (21-32) Anion Gap 6 (6-14) 6 (6-14) Blood Urea Nitrogen 18 mg/dL (8-26) 15 mg/dL (8-26) Creatinine 0.7 mg/dL (0.7-1.3) 0.7 mg/dL (0.7-1.3) Estimated GFR (Cockcroft-Gault) 111.2 111.2 BUN/Creatinine Ratio 26 (6-20) 21 (6-20) Glucose Level 128 mg/dL (70-99) 122 mg/dL (70-99) Calcium Level 7.9 mg/dL (8.5-10.1) 7.8 mg/dL (8.5-10.1) Total Bilirubin 1.1 mg/dL (0.2-1.0) 1.4 mg/dL (0.2-1.0) Aspartate Amino Transf (AST/SGOT) 27 U/L (15-37) 25 U/L (15-37) Alanine Aminotransferase (ALT/SGPT) 17 U/L (16-63) 14 U/L (16-63) Alkaline Phosphatase 83 U/L (46-116) 92 U/L (46-116) Total Protein 4.6 g/dL (6.4-8.2) 4.8 g/dL (6.4-8.2) Albumin 1.4 g/dL (3.4-5.0) 1.3 g/dL (3.4-5.0) Albumin/Globulin Ratio 0.4 (1.0-1.7) 0.4 (1.0-1.7) Triglycerides Level 213 mg/dL (0-150) O2 Saturation 96 % (92-99) 96 % (92-99) Arterial Blood pH 7.47 (7.35-7.45) 7.46 (7.35-7.45) Arterial Blood pCO2 at Patient Temp 36 mmHg (35-46) 35 mmHg (35-46) Arterial Blood pO2 at Patient Temp 81 mmHg (65-108) 81 mmHg (65-108) Arterial Blood HCO3 25 mmol/L (21-28) 25 mmol/L (21-28) Arterial Blood Base Excess 2 mmol/L (-3-3) 1 mmol/L (-3-3) FiO2 30 30 Laboratory Tests Test 05/10/17 06:05 05/10/17 08:00 White Blood Count 17.6 x10^3/uL (4.0-11.0) Red Blood Count 2.86 x10^6/uL (4.30-5.70) Hemoglobin 9.8 g/dL (13.0-17.5) Hematocrit 27.9 % (39.0-53.0) Mean Corpuscular Volume 97 fL (79-100) Mean Corpuscular Hemoglobin 34 pg (25-35) Mean Corpuscular Hemoglobin Concent 35 g/dL (31-37) Red Cell Distribution Width 17.1 % (11.5-14.5) Platelet Count 150 x10^3/uL (140-400) Neutrophils (%) (Auto) 86 % (31-73) Lymphocytes (%) (Auto) 10 % (24-48) Monocytes (%) (Auto) 4 % (0-9) Eosinophils (%) (Auto) 0 % (0-3) Basophils (%) (Auto) 1 % (0-3) Neutrophils # (Auto) 15.1 x10^3uL (1.8-7.7) Lymphocytes # (Auto) 1.7 x10^3/uL (1.0-4.8) Monocytes # (Auto) 0.7 x10^3/uL (0.0-1.1) Eosinophils # (Auto) 0.0 x10^3/uL (0.0-0.7) Basophils # (Auto) 0.1 x10^3/uL (0.0-0.2) Sodium Level 145 mmol/L (136-145) Potassium Level 3.4 mmol/L (3.5-5.1) Chloride Level 111 mmol/L (98-107) Carbon Dioxide Level 28 mmol/L (21-32) Anion Gap 6 (6-14) Blood Urea Nitrogen 15 mg/dL (8-26) Creatinine 0.7 mg/dL (0.7-1.3) Estimated GFR (Cockcroft-Gault) 111.2 BUN/Creatinine Ratio 21 (6-20) Glucose Level 122 mg/dL (70-99) Calcium Level 7.8 mg/dL (8.5-10.1) Total Bilirubin 1.4 mg/dL (0.2-1.0) Aspartate Amino Transf (AST/SGOT) 25 U/L (15-37) Alanine Aminotransferase (ALT/SGPT) 14 U/L (16-63) Alkaline Phosphatase 92 U/L (46-116) Total Protein 4.8 g/dL (6.4-8.2) Albumin 1.3 g/dL (3.4-5.0) Albumin/Globulin Ratio 0.4 (1.0-1.7) O2 Saturation 96 % (92-99) Arterial Blood pH 7.46 (7.35-7.45) Arterial Blood pCO2 at Patient Temp 35 mmHg (35-46) Arterial Blood pO2 at Patient Temp 81 mmHg (65-108) Arterial Blood HCO3 25 mmol/L (21-28) Arterial Blood Base Excess 1 mmol/L (-3-3) FiO2 30 Problem List on pressors, vent off sedation continue care reviewed with Dr Rosado Problems: RYAN ROSADO MD 05/11/17 8702: SURGICAL PROGRESS NOTE Assessment/Plan Agree with above, supportive measures Problems: FERNANDO CEJA FELTMAKER AND WEIGHER May 10, 2017 09:31 RYAN ROSADO MD May 11, 2017 17:42
[2017-05-10] MEDS: CHLORHEXIDINE 0.12% 15 ML MOUTHWASH. SWSP SCH ×2 (10:11→21:22)
[2017-05-10] MEDS: FAMOTIDINE 20 MG/2 ML VIAL IVP SCH ×2 (10:15→21:22)
[2017-05-10] MEDS: DIGOXIN IV 500 MCG/2 ML AMPUL. IV SCH (10:16)
--- NOTE | 2017-05-10 10:51 | PDOC ---
PULMONARY PROGRESS NOTES Subjective REMAINS INTUBATED/ OFF VERSED, NOT RESPONSIVE STILL IN SHOCK, LOW DOSE PRESSOR DID NOT TOLERATE OFF FENTANYL, PARADOXICAL BREATHING Vitals Vital Signs Date Time Temp Pulse Resp B/P (MAP) Pulse Ox O2 Delivery O2 Flow Rate FiO2 05/10/17 10:16 81 107/72 05/10/17 10:05 99 Ventilator 05/10/17 06:00 27 05/10/17 04:00 99.3 99.3 Lungs: Other (DECREASE BS, ERYTHEMA, DRAINS) Cardiovascular: S1 Abdomen: Other (firm) Extremities: Other (1+edema) Skin: Warm Labs Laboratory Tests Test 05/09/17 06:00 05/09/17 08:00 05/10/17 06:05 05/10/17 08:00 White Blood Count 15.0 x10^3/uL (4.0-11.0) 17.6 x10^3/uL (4.0-11.0) Red Blood Count 2.75 x10^6/uL (4.30-5.70) 2.86 x10^6/uL (4.30-5.70) Hemoglobin 9.0 g/dL (13.0-17.5) 9.8 g/dL (13.0-17.5) Hematocrit 27.3 % (39.0-53.0) 27.9 % (39.0-53.0) Mean Corpuscular Volume 99 fL (79-100) 97 fL (79-100) Mean Corpuscular Hemoglobin 33 pg (25-35) 34 pg (25-35) Mean Corpuscular Hemoglobin Concent 33 g/dL (31-37) 35 g/dL (31-37) Red Cell Distribution Width 17.2 % (11.5-14.5) 17.1 % (11.5-14.5) Platelet Count 112 x10^3/uL (140-400) 150 x10^3/uL (140-400) Neutrophils (%) (Auto) 86 % (31-73) 86 % (31-73) Lymphocytes (%) (Auto) 8 % (24-48) 10 % (24-48) Monocytes (%) (Auto) 5 % (0-9) 4 % (0-9) Eosinophils (%) (Auto) 0 % (0-3) 0 % (0-3) Basophils (%) (Auto) 0 % (0-3) 1 % (0-3) Neutrophils # (Auto) 12.9 x10^3uL (1.8-7.7) 15.1 x10^3uL (1.8-7.7) Lymphocytes # (Auto) 1.2 x10^3/uL (1.0-4.8) 1.7 x10^3/uL (1.0-4.8) Monocytes # (Auto) 0.8 x10^3/uL (0.0-1.1) 0.7 x10^3/uL (0.0-1.1) Eosinophils # (Auto) 0.1 x10^3/uL (0.0-0.7) 0.0 x10^3/uL (0.0-0.7) Basophils # (Auto) 0.0 x10^3/uL (0.0-0.2) 0.1 x10^3/uL (0.0-0.2) Sodium Level 142 mmol/L (136-145) 145 mmol/L (136-145) Potassium Level 3.4 mmol/L (3.5-5.1) 3.4 mmol/L (3.5-5.1) Chloride Level 108 mmol/L (98-107) 111 mmol/L (98-107) Carbon Dioxide Level 28 mmol/L (21-32) 28 mmol/L (21-32) Anion Gap 6 (6-14) 6 (6-14) Blood Urea Nitrogen 18 mg/dL (8-26) 15 mg/dL (8-26) Creatinine 0.7 mg/dL (0.7-1.3) 0.7 mg/dL (0.7-1.3) Estimated GFR (Cockcroft-Gault) 111.2 111.2 BUN/Creatinine Ratio 26 (6-20) 21 (6-20) Glucose Level 128 mg/dL (70-99) 122 mg/dL (70-99) Calcium Level 7.9 mg/dL (8.5-10.1) 7.8 mg/dL (8.5-10.1) Total Bilirubin 1.1 mg/dL (0.2-1.0) 1.4 mg/dL (0.2-1.0) Aspartate Amino Transf (AST/SGOT) 27 U/L (15-37) 25 U/L (15-37) Alanine Aminotransferase (ALT/SGPT) 17 U/L (16-63) 14 U/L (16-63) Alkaline Phosphatase 83 U/L (46-116) 92 U/L (46-116) Total Protein 4.6 g/dL (6.4-8.2) 4.8 g/dL (6.4-8.2) Albumin 1.4 g/dL (3.4-5.0) 1.3 g/dL (3.4-5.0) Albumin/Globulin Ratio 0.4 (1.0-1.7) 0.4 (1.0-1.7) Triglycerides Level 213 mg/dL (0-150) O2 Saturation 96 % (92-99) 96 % (92-99) Arterial Blood pH 7.47 (7.35-7.45) 7.46 (7.35-7.45) Arterial Blood pCO2 at Patient Temp 36 mmHg (35-46) 35 mmHg (35-46) Arterial Blood pO2 at Patient Temp 81 mmHg (65-108) 81 mmHg (65-108) Arterial Blood HCO3 25 mmol/L (21-28) 25 mmol/L (21-28) Arterial Blood Base Excess 2 mmol/L (-3-3) 1 mmol/L (-3-3) FiO2 30 30 Laboratory Tests Test 05/10/17 06:05 05/10/17 08:00 White Blood Count 17.6 x10^3/uL (4.0-11.0) Red Blood Count 2.86 x10^6/uL (4.30-5.70) Hemoglobin 9.8 g/dL (13.0-17.5) Hematocrit 27.9 % (39.0-53.0) Mean Corpuscular Volume 97 fL (79-100) Mean Corpuscular Hemoglobin 34 pg (25-35) Mean Corpuscular Hemoglobin Concent 35 g/dL (31-37) Red Cell Distribution Width 17.1 % (11.5-14.5) Platelet Count 150 x10^3/uL (140-400) Neutrophils (%) (Auto) 86 % (31-73) Lymphocytes (%) (Auto) 10 % (24-48) Monocytes (%) (Auto) 4 % (0-9) Eosinophils (%) (Auto) 0 % (0-3) Basophils (%) (Auto) 1 % (0-3) Neutrophils # (Auto) 15.1 x10^3uL (1.8-7.7) Lymphocytes # (Auto) 1.7 x10^3/uL (1.0-4.8) Monocytes # (Auto) 0.7 x10^3/uL (0.0-1.1) Eosinophils # (Auto) 0.0 x10^3/uL (0.0-0.7) Basophils # (Auto) 0.1 x10^3/uL (0.0-0.2) Sodium Level 145 mmol/L (136-145) Potassium Level 3.4 mmol/L (3.5-5.1) Chloride Level 111 mmol/L (98-107) Carbon Dioxide Level 28 mmol/L (21-32) Anion Gap 6 (6-14) Blood Urea Nitrogen 15 mg/dL (8-26) Creatinine 0.7 mg/dL (0.7-1.3) Estimated GFR (Cockcroft-Gault) 111.2 BUN/Creatinine Ratio 21 (6-20) Glucose Level 122 mg/dL (70-99) Calcium Level 7.8 mg/dL (8.5-10.1) Total Bilirubin 1.4 mg/dL (0.2-1.0) Aspartate Amino Transf (AST/SGOT) 25 U/L (15-37) Alanine Aminotransferase (ALT/SGPT) 14 U/L (16-63) Alkaline Phosphatase 92 U/L (46-116) Total Protein 4.8 g/dL (6.4-8.2) Albumin 1.3 g/dL (3.4-5.0) Albumin/Globulin Ratio 0.4 (1.0-1.7) O2 Saturation 96 % (92-99) Arterial Blood pH 7.46 (7.35-7.45) Arterial Blood pCO2 at Patient Temp 35 mmHg (35-46) Arterial Blood pO2 at Patient Temp 81 mmHg (65-108) Arterial Blood HCO3 25 mmol/L (21-28) Arterial Blood Base Excess 1 mmol/L (-3-3) FiO2 30 Medications Active Scripts Medications Dose Route/Sig Max Daily Dose Days Date Category Melatonin 3 Mg Tablet 1 Tab PO QHS 04/22/17 Reported Move Free [facility] Tablet (Glucosam/Chond/Hyalu/Cf Borate) 1 Each Tablet 1 Each PO DAILY 04/22/17 Reported Digoxin 125 Mcg Tablet 1 Tab PO DAILY 04/22/17 Reported Prednisone 10 Mg Tablet 10 Mg PO DAILY 04/22/17 Reported Comments CXR 05/10 LLL infiltrate vs atelectasis, NEW right basal infiltrates Impression . 1. Acute respiratory failure, expected post -op 2. septic shock, on low dose pressor 3. Metabolic acidosis/ lactic acidosis, improving 4. chronic A-Fib 5. Crohn's Dx, who has h/o perforated viscous and underwent lap with resection . Cults + for H para/Clostridium Ramsom/Bacteroides/Strep bovis. D/cd home with Augmentin. Presented electively for an extended right colon resection with ileocolotomy 04/29. Taken back to OR ruptured ileo-colic anastomosis, fecal impaction s/p rigid procto, disimpaction, ex lap, resection of ileo-colic anastomosis, end ileostomy, Evans's pouch, 6. Persistent encephalopathy, DID NOT TOLERATE OFF FENTANYL, PARADOXICAL BREATHING 7. Basal infiltrates vs atelectasis Plan . 1. AC mode. 2. Not ready for weaning. sedation turned off, Once awake, CPAP trial 3. Continue to wean levophed/ vasopressin 4. off HCO3 drip 5. BS antibiotic per ID 6. fentanyl for now 7. volume challenge prn 8. TPN 9. d/w RN 10. Suspect that patient would require tracheostomy KEVIN LORA MD May 10, 2017 10:51
[2017-05-10] MEDS: NOREPINEPHRIN PREMIX 250 ML IV PRN (17:53)
[2017-05-10] MEDS ORDERED: AMINO ACIDS IV SCH ×11 (22:00)
[2017-05-10] MEDS ORDERED: DEXTROSE 70% IV SCH ×11 (22:00)
[2017-05-10] MEDS ORDERED: TOTAL PARENTERAL NUTRITION IV SCH ×11 (22:00)
[2017-05-10] MEDS ORDERED: [UNRECOGNIZED DRUG - OTHER] IV SCH ×11 (22:00)
[2017-05-11] VITALS (24 sets, daily range): BP systolic 85–162; BP diastolic 53–83
[2017-05-11 06:54] LABS: ALBUMIN 1.1 g/dL (3.4-5.0); ALBUMIN/GLOBULIN RATIO 0.3 (1.0-1.7); CREATININE 0.6 mg/dL (0.7-1.3); GFR 132.8; MAGNESIUM 2.1 mg/dL (1.8-2.4); PHOSPHORUS 3.9 mg/dL (2.6-4.7); POTASSIUM 3.9 mmol/L (3.5-5.1); TOTAL BILIRUBIN 1.6 mg/dL (0.2-1.0); TOTAL PROTEIN 4.7 g/dL (6.4-8.2)
--- NOTE | 2017-05-11 08:11 | PDOC ---
Infectious Disease Note Subjective Subjective Remains intubated. FiO2 30% TPN Hypotensive, on 2 pressors No fever ROS ROS GEN: Denies fevers, chills, sweats HEENT: Denies blurred vision, sore throat CV: Denies chest pain RESP: Denies shortness of air, cough GI: Denies n/v/d NEURO: Denies confusion, dizziness MSK: Denies weakness, joint pain/swelling Vital Sign Vital Signs Vital Signs Date Time Temp Pulse Resp B/P (MAP) Pulse Ox O2 Delivery O2 Flow Rate FiO2 05/11/17 07:36 99 Ventilator 05/11/17 07:00 92 22 106/69 (81) 05/11/17 04:00 98.5 98.5 05/10/17 15:45 30.0 Physical Exam PHYSICAL EXAM GENERAL: NAD, Alert HEENT: PERRL, OC/OP NECK: Supple, no JVD, no LN LUNGS: Clear HEART: S1S2, no gallop, no murmur ABD: Soft, NT, no organomegaly, no rebound EXT: No edema, no cyanosis PSYCHOLOGIST CHIEF: Alert, oriented x 3, no focal neurologic deficit SKIN: No rash IV: ok Labs Lab Laboratory Tests Test 05/11/17 06:20 Sodium Level 143 mmol/L (136-145) Potassium Level 3.9 mmol/L (3.5-5.1) Chloride Level 109 mmol/L (98-107) Carbon Dioxide Level 28 mmol/L (21-32) Anion Gap 6 (6-14) Blood Urea Nitrogen 19 mg/dL (8-26) Creatinine 0.6 mg/dL (0.7-1.3) Estimated GFR (Cockcroft-Gault) 132.8 BUN/Creatinine Ratio 32 (6-20) Glucose Level 123 mg/dL (70-99) Calcium Level 8.0 mg/dL (8.5-10.1) Phosphorus Level 3.9 mg/dL (2.6-4.7) Magnesium Level 2.1 mg/dL (1.8-2.4) Total Bilirubin 1.6 mg/dL (0.2-1.0) Aspartate Amino Transf (AST/SGOT) 27 U/L (15-37) Alanine Aminotransferase (ALT/SGPT) 17 U/L (16-63) Alkaline Phosphatase 94 U/L (46-116) Total Protein 4.7 g/dL (6.4-8.2) Albumin 1.1 g/dL (3.4-5.0) Albumin/Globulin Ratio 0.3 (1.0-1.7) Objective Assessment Pelvic abscess. Gram stain: GPC, yeast, anaerobes. Culture E. coli (pansensitive ), yeast so far Sepsis with hypotension, on pressors Leukocytosis, trending up Ruptured ileo-colic anastomosis, fecal impaction s/p rigid procto, disimpaction , ex lap, resection of ileo-colic anastomosis, end ileostomy, Evans's pouch, [place] 05/05 Right flank ? cellulitis Immunosuppression Afib Thrombocytopenia, better H/o H para/Clostridium Ramsom/Bacteroides/Strep bovis January 2017 Plan Plan of Care Cont Rocephin and micafungin F/u labs and cults Critically ill KELSIE CANTU MD May 11, 2017 08:11
[2017-05-11 08:13] LABS: HCO3 ABG 27 mmol/L (21-28); PCO2 ABG 37 mmHg (35-46); PH ABG 7.47 (7.35-7.45); PO2 ABG 74 mmHg (65-108); SAT O2 ABG 94 % (92-99)
[2017-05-11 08:14] LABS: FIO2 ABG 30
--- NOTE | 2017-05-11 09:05 | RAD ---
Portable chest, 05/11/2017: History: Respiratory failure Comparison is made to yesterday's study. The ET tube, NG tube, right PICC and right jugular central venous catheter remain in satisfactory positions. The heart size is unchanged. The pulmonary vascularity remains prominent. Basilar infiltrates appear to worsened slightly with ongoing dense retrocardiac consolidation on the left. There may be pleural fluid contributing to these opacities. There is no evidence of pneumothorax. IMPRESSION: 1. Stable tube positions. 2. Mild vascular congestion. 3. Ongoing basilar infiltrates, left greater than right, with slight further interval worsening.
[2017-05-11] MEDS: DIGOXIN IV 500 MCG/2 ML AMPUL. IV SCH (09:40)
[2017-05-11] MEDS: FAMOTIDINE 20 MG/2 ML VIAL IVP SCH ×2 (09:43→20:42)
[2017-05-11] MEDS: CHLORHEXIDINE 0.12% 15 ML MOUTHWASH. SWSP SCH ×2 (09:43→20:42)
[2017-05-11] MEDS: IV NORMAL SALINE 1000ML BAG 1,000 ML IV SCH ×2 (11:00→11:23)
[2017-05-11] MEDS: TPN PER PHARMACY MC PRN (11:19)
--- NOTE | 2017-05-11 12:06 | PDOC ---
PULMONARY PROGRESS NOTES Subjective INTUBATED ON AC MODE OFF PRESSORS Vitals Vital Signs Date Time Temp Pulse Resp B/P (MAP) Pulse Ox O2 Delivery O2 Flow Rate FiO2 05/11/17 11:10 100 Ventilator 05/11/17 10:00 90 22 122/73 (89) 05/11/17 09:00 98.3 98.3 05/10/17 15:45 30.0 Lungs: Other (DECREASE BS, ERYTHEMA, DRAINS) Cardiovascular: S1 Abdomen: Other (firm) Extremities: Other (1+edema) Skin: Warm Labs Laboratory Tests Test 05/10/17 06:05 05/10/17 08:00 05/11/17 06:20 05/11/17 08:14 White Blood Count 17.6 x10^3/uL (4.0-11.0) Red Blood Count 2.86 x10^6/uL (4.30-5.70) Hemoglobin 9.8 g/dL (13.0-17.5) Hematocrit 27.9 % (39.0-53.0) Mean Corpuscular Volume 97 fL (79-100) Mean Corpuscular Hemoglobin 34 pg (25-35) Mean Corpuscular Hemoglobin Concent 35 g/dL (31-37) Red Cell Distribution Width 17.1 % (11.5-14.5) Platelet Count 150 x10^3/uL (140-400) Neutrophils (%) (Auto) 86 % (31-73) Lymphocytes (%) (Auto) 10 % (24-48) Monocytes (%) (Auto) 4 % (0-9) Eosinophils (%) (Auto) 0 % (0-3) Basophils (%) (Auto) 1 % (0-3) Neutrophils # (Auto) 15.1 x10^3uL (1.8-7.7) Lymphocytes # (Auto) 1.7 x10^3/uL (1.0-4.8) Monocytes # (Auto) 0.7 x10^3/uL (0.0-1.1) Eosinophils # (Auto) 0.0 x10^3/uL (0.0-0.7) Basophils # (Auto) 0.1 x10^3/uL (0.0-0.2) Sodium Level 145 mmol/L (136-145) 143 mmol/L (136-145) Potassium Level 3.4 mmol/L (3.5-5.1) 3.9 mmol/L (3.5-5.1) Chloride Level 111 mmol/L (98-107) 109 mmol/L (98-107) Carbon Dioxide Level 28 mmol/L (21-32) 28 mmol/L (21-32) Anion Gap 6 (6-14) 6 (6-14) Blood Urea Nitrogen 15 mg/dL (8-26) 19 mg/dL (8-26) Creatinine 0.7 mg/dL (0.7-1.3) 0.6 mg/dL (0.7-1.3) Estimated GFR (Cockcroft-Gault) 111.2 132.8 BUN/Creatinine Ratio 21 (6-20) 32 (6-20) Glucose Level 122 mg/dL (70-99) 123 mg/dL (70-99) Calcium Level 7.8 mg/dL (8.5-10.1) 8.0 mg/dL (8.5-10.1) Total Bilirubin 1.4 mg/dL (0.2-1.0) 1.6 mg/dL (0.2-1.0) Aspartate Amino Transf (AST/SGOT) 25 U/L (15-37) 27 U/L (15-37) Alanine Aminotransferase (ALT/SGPT) 14 U/L (16-63) 17 U/L (16-63) Alkaline Phosphatase 92 U/L (46-116) 94 U/L (46-116) Total Protein 4.8 g/dL (6.4-8.2) 4.7 g/dL (6.4-8.2) Albumin 1.3 g/dL (3.4-5.0) 1.1 g/dL (3.4-5.0) Albumin/Globulin Ratio 0.4 (1.0-1.7) 0.3 (1.0-1.7) O2 Saturation 96 % (92-99) 94 % (92-99) Arterial Blood pH 7.46 (7.35-7.45) 7.47 (7.35-7.45) Arterial Blood pCO2 at Patient Temp 35 mmHg (35-46) 37 mmHg (35-46) Arterial Blood pO2 at Patient Temp 81 mmHg (65-108) 74 mmHg (65-108) Arterial Blood HCO3 25 mmol/L (21-28) 27 mmol/L (21-28) Arterial Blood Base Excess 1 mmol/L (-3-3) 3 mmol/L (-3-3) FiO2 30 30 Phosphorus Level 3.9 mg/dL (2.6-4.7) Magnesium Level 2.1 mg/dL (1.8-2.4) Laboratory Tests Test 05/11/17 06:20 05/11/17 08:14 Sodium Level 143 mmol/L (136-145) Potassium Level 3.9 mmol/L (3.5-5.1) Chloride Level 109 mmol/L (98-107) Carbon Dioxide Level 28 mmol/L (21-32) Anion Gap 6 (6-14) Blood Urea Nitrogen 19 mg/dL (8-26) Creatinine 0.6 mg/dL (0.7-1.3) Estimated GFR (Cockcroft-Gault) 132.8 BUN/Creatinine Ratio 32 (6-20) Glucose Level 123 mg/dL (70-99) Calcium Level 8.0 mg/dL (8.5-10.1) Phosphorus Level 3.9 mg/dL (2.6-4.7) Magnesium Level 2.1 mg/dL (1.8-2.4) Total Bilirubin 1.6 mg/dL (0.2-1.0) Aspartate Amino Transf (AST/SGOT) 27 U/L (15-37) Alanine Aminotransferase (ALT/SGPT) 17 U/L (16-63) Alkaline Phosphatase 94 U/L (46-116) Total Protein 4.7 g/dL (6.4-8.2) Albumin 1.1 g/dL (3.4-5.0) Albumin/Globulin Ratio 0.3 (1.0-1.7) O2 Saturation 94 % (92-99) Arterial Blood pH 7.47 (7.35-7.45) Arterial Blood pCO2 at Patient Temp 37 mmHg (35-46) Arterial Blood pO2 at Patient Temp 74 mmHg (65-108) Arterial Blood HCO3 27 mmol/L (21-28) Arterial Blood Base Excess 3 mmol/L (-3-3) FiO2 30 Medications Active Scripts Medications Dose Route/Sig Max Daily Dose Days Date Category Melatonin 3 Mg Tablet 1 Tab PO QHS 04/22/17 Reported Move Free Neighborhoods Tablet (Glucosam/Chond/Hyalu/Cf Borate) 1 Each Tablet 1 Each PO DAILY 04/22/17 Reported Digoxin 125 Mcg Tablet 1 Tab PO DAILY 04/22/17 Reported Prednisone 10 Mg Tablet 10 Mg PO DAILY 04/22/17 Reported Comments IMPRESSION: 1. Stable tube positions. 2. Mild vascular congestion. 3. Ongoing basilar infiltrates, left greater than right, with slight further interval worsening. Impression . 1. Acute respiratory failure, expected post -op 2. septic shock IMPROVED 3. Metabolic acidosis/ lactic acidosis, improving 4. chronic A-Fib 5. Crohn's Dx, who has h/o perforated viscous and underwent lap with resection . Cults + for H para/Clostridium Ramsom/Bacteroides/Strep bovis. D/cd home with Augmentin. Presented electively for an extended right colon resection with ileocolotomy 04/29. Taken back to OR ruptured ileo-colic anastomosis, fecal impaction s/p rigid procto, disimpaction, ex lap, resection of ileo-colic anastomosis, end ileostomy, Evans's pouch, 6. Toxic and metabolic encephalopathy 7. Abnormal CXR Plan . spoke with daughter at bedside will need continue support not ready for wean off pressors nutrition tpn anttibx per NAILA ANGELES MD May 11, 2017 12:06
[2017-05-11 12:13] LABS: BASO # 0.1 x10^3/uL (0.0-0.2); BASO % 1 % (0-3); EOS % 1 % (0-3); HEMATOCRIT 27.2 % (39.0-53.0); HEMOGLOBIN 8.7 g/dL (13.0-17.5); LYMPH # 1.7 x10^3/uL (1.0-4.8); LYMPH % 10 % (24-48); MEAN CORPUSCULAR HEMOGLOBIN 32 pg (25-35); MEAN CORPUSCULAR HGB CONC 32 g/dL (31-37); MEAN CORPUSCULAR VOLUME 102 fL (79-100); MONO % 4 % (0-9); NEUT % 85 % (31-73); PLATELET COUNT 191 x10^3/uL (140-400); RED BLOOD COUNT 2.68 x10^6/uL (4.30-5.70); RED CELL DISTRIBUTION WIDTH 17.7 % (11.5-14.5); WHITE BLOOD COUNT 16.7 x10^3/uL (4.0-11.0)
--- NOTE | 2017-05-11 12:46 | PDOC ---
SURGICAL PROGRESS NOTE Subjective intubated off sedation starting to hold pain meds Vital Signs Vital Signs Date Time Temp Pulse Resp B/P (MAP) Pulse Ox O2 Delivery O2 Flow Rate FiO2 05/11/17 11:10 100 Ventilator 05/11/17 10:00 90 22 122/73 (89) 05/11/17 09:00 98.3 98.3 05/10/17 15:45 30.0 I&O Intake and Output 05/11/17 07:00 Intake Total 3744.4 ml Output Total 2825 ml Balance 919.4 ml Intake Oral 0 ml IV Total 3744.4 ml Output Urine Total 1720 ml Stool Total 375 ml Gastric Drainage Total 150 ml Drainage Total 580 ml PATIENT HAS A YANCEY: Yes Abdomen: Soft, Other (no active drainage, ileostomy with dark liquid output, RLQ, flank eythema) Labs Laboratory Tests Test 05/10/17 06:05 05/10/17 08:00 05/11/17 06:20 05/11/17 08:14 White Blood Count 17.6 x10^3/uL (4.0-11.0) 16.7 x10^3/uL (4.0-11.0) Red Blood Count 2.86 x10^6/uL (4.30-5.70) 2.68 x10^6/uL (4.30-5.70) Hemoglobin 9.8 g/dL (13.0-17.5) 8.7 g/dL (13.0-17.5) Hematocrit 27.9 % (39.0-53.0) 27.2 % (39.0-53.0) Mean Corpuscular Volume 97 fL (79-100) 102 fL (79-100) Mean Corpuscular Hemoglobin 34 pg (25-35) 32 pg (25-35) Mean Corpuscular Hemoglobin Concent 35 g/dL (31-37) 32 g/dL (31-37) Red Cell Distribution Width 17.1 % (11.5-14.5) 17.7 % (11.5-14.5) Platelet Count 150 x10^3/uL (140-400) 191 x10^3/uL (140-400) Neutrophils (%) (Auto) 86 % (31-73) 85 % (31-73) Lymphocytes (%) (Auto) 10 % (24-48) 10 % (24-48) Monocytes (%) (Auto) 4 % (0-9) 4 % (0-9) Eosinophils (%) (Auto) 0 % (0-3) 1 % (0-3) Basophils (%) (Auto) 1 % (0-3) 1 % (0-3) Neutrophils # (Auto) 15.1 x10^3uL (1.8-7.7) 14.1 x10^3uL (1.8-7.7) Lymphocytes # (Auto) 1.7 x10^3/uL (1.0-4.8) 1.7 x10^3/uL (1.0-4.8) Monocytes # (Auto) 0.7 x10^3/uL (0.0-1.1) 0.7 x10^3/uL (0.0-1.1) Eosinophils # (Auto) 0.0 x10^3/uL (0.0-0.7) 0.1 x10^3/uL (0.0-0.7) Basophils # (Auto) 0.1 x10^3/uL (0.0-0.2) 0.1 x10^3/uL (0.0-0.2) Sodium Level 145 mmol/L (136-145) 143 mmol/L (136-145) Potassium Level 3.4 mmol/L (3.5-5.1) 3.9 mmol/L (3.5-5.1) Chloride Level 111 mmol/L (98-107) 109 mmol/L (98-107) Carbon Dioxide Level 28 mmol/L (21-32) 28 mmol/L (21-32) Anion Gap 6 (6-14) 6 (6-14) Blood Urea Nitrogen 15 mg/dL (8-26) 19 mg/dL (8-26) Creatinine 0.7 mg/dL (0.7-1.3) 0.6 mg/dL (0.7-1.3) Estimated GFR (Cockcroft-Gault) 111.2 132.8 BUN/Creatinine Ratio 21 (6-20) 32 (6-20) Glucose Level 122 mg/dL (70-99) 123 mg/dL (70-99) Calcium Level 7.8 mg/dL (8.5-10.1) 8.0 mg/dL (8.5-10.1) Total Bilirubin 1.4 mg/dL (0.2-1.0) 1.6 mg/dL (0.2-1.0) Aspartate Amino Transf (AST/SGOT) 25 U/L (15-37) 27 U/L (15-37) Alanine Aminotransferase (ALT/SGPT) 14 U/L (16-63) 17 U/L (16-63) Alkaline Phosphatase 92 U/L (46-116) 94 U/L (46-116) Total Protein 4.8 g/dL (6.4-8.2) 4.7 g/dL (6.4-8.2) Albumin 1.3 g/dL (3.4-5.0) 1.1 g/dL (3.4-5.0) Albumin/Globulin Ratio 0.4 (1.0-1.7) 0.3 (1.0-1.7) O2 Saturation 96 % (92-99) 94 % (92-99) Arterial Blood pH 7.46 (7.35-7.45) 7.47 (7.35-7.45) Arterial Blood pCO2 at Patient Temp 35 mmHg (35-46) 37 mmHg (35-46) Arterial Blood pO2 at Patient Temp 81 mmHg (65-108) 74 mmHg (65-108) Arterial Blood HCO3 25 mmol/L (21-28) 27 mmol/L (21-28) Arterial Blood Base Excess 1 mmol/L (-3-3) 3 mmol/L (-3-3) FiO2 30 30 Phosphorus Level 3.9 mg/dL (2.6-4.7) Magnesium Level 2.1 mg/dL (1.8-2.4) Laboratory Tests Test 05/11/17 06:20 05/11/17 08:14 White Blood Count 16.7 x10^3/uL (4.0-11.0) Red Blood Count 2.68 x10^6/uL (4.30-5.70) Hemoglobin 8.7 g/dL (13.0-17.5) Hematocrit 27.2 % (39.0-53.0) Mean Corpuscular Volume 102 fL (79-100) Mean Corpuscular Hemoglobin 32 pg (25-35) Mean Corpuscular Hemoglobin Concent 32 g/dL (31-37) Red Cell Distribution Width 17.7 % (11.5-14.5) Platelet Count 191 x10^3/uL (140-400) Neutrophils (%) (Auto) 85 % (31-73) Lymphocytes (%) (Auto) 10 % (24-48) Monocytes (%) (Auto) 4 % (0-9) Eosinophils (%) (Auto) 1 % (0-3) Basophils (%) (Auto) 1 % (0-3) Neutrophils # (Auto) 14.1 x10^3uL (1.8-7.7) Lymphocytes # (Auto) 1.7 x10^3/uL (1.0-4.8) Monocytes # (Auto) 0.7 x10^3/uL (0.0-1.1) Eosinophils # (Auto) 0.1 x10^3/uL (0.0-0.7) Basophils # (Auto) 0.1 x10^3/uL (0.0-0.2) Sodium Level 143 mmol/L (136-145) Potassium Level 3.9 mmol/L (3.5-5.1) Chloride Level 109 mmol/L (98-107) Carbon Dioxide Level 28 mmol/L (21-32) Anion Gap 6 (6-14) Blood Urea Nitrogen 19 mg/dL (8-26) Creatinine 0.6 mg/dL (0.7-1.3) Estimated GFR (Cockcroft-Gault) 132.8 BUN/Creatinine Ratio 32 (6-20) Glucose Level 123 mg/dL (70-99) Calcium Level 8.0 mg/dL (8.5-10.1) Phosphorus Level 3.9 mg/dL (2.6-4.7) Magnesium Level 2.1 mg/dL (1.8-2.4) Total Bilirubin 1.6 mg/dL (0.2-1.0) Aspartate Amino Transf (AST/SGOT) 27 U/L (15-37) Alanine Aminotransferase (ALT/SGPT) 17 U/L (16-63) Alkaline Phosphatase 94 U/L (46-116) Total Protein 4.7 g/dL (6.4-8.2) Albumin 1.1 g/dL (3.4-5.0) Albumin/Globulin Ratio 0.3 (1.0-1.7) O2 Saturation 94 % (92-99) Arterial Blood pH 7.47 (7.35-7.45) Arterial Blood pCO2 at Patient Temp 37 mmHg (35-46) Arterial Blood pO2 at Patient Temp 74 mmHg (65-108) Arterial Blood HCO3 27 mmol/L (21-28) Arterial Blood Base Excess 3 mmol/L (-3-3) FiO2 30 Assessment/Plan sepsis requiring less pressor support normal renal function continue supportive care Problems: RON GROSS MD May 11, 2017 12:46
[2017-05-11] MEDS: MICAFUNGIN 100 MG in IV DEXTROSE 5% 100 ML IV SCH (13:52)
--- NOTE | 2017-05-11 14:14 | PDOC ---
PROGRESS NOTES Chief Complaint Chief Complaint Crohn's dz s/p R part colectomy Abd pain Pelvic abscess Respir failure Hypotension Leukocytosis Thrombocytopenia Afib with RVR CHF Hypokalemia Coagulopathy History of Present Illness History of Present Illness intubated, sedated. Vent settings AC/16/500/50% Vitals Vitals Vital Signs Date Time Temp Pulse Resp B/P (MAP) Pulse Ox O2 Delivery O2 Flow Rate FiO2 05/11/17 13:01 99 Ventilator 05/11/17 13:00 95 21 114/74 (87) 05/11/17 12:00 99.0 99.0 05/10/17 15:45 30.0 Physical Exam General: No acute distress, Other (does have response to painful stimuli) Heart: Other (tachy) Lungs: Other (DECREASE BS, ERYTHEMA, DRAINS) Abdomen: Soft, Other (no active drainage, ileostomy with dark liquid output, RLQ, flank eythema) Extremities: No clubbing, Other (2-3+ edema) Skin: No rashes Labs LABS Laboratory Tests Test 05/11/17 06:20 05/11/17 08:14 White Blood Count 16.7 x10^3/uL (4.0-11.0) Red Blood Count 2.68 x10^6/uL (4.30-5.70) Hemoglobin 8.7 g/dL (13.0-17.5) Hematocrit 27.2 % (39.0-53.0) Mean Corpuscular Volume 102 fL (79-100) Mean Corpuscular Hemoglobin 32 pg (25-35) Mean Corpuscular Hemoglobin Concent 32 g/dL (31-37) Red Cell Distribution Width 17.7 % (11.5-14.5) Platelet Count 191 x10^3/uL (140-400) Neutrophils (%) (Auto) 85 % (31-73) Lymphocytes (%) (Auto) 10 % (24-48) Monocytes (%) (Auto) 4 % (0-9) Eosinophils (%) (Auto) 1 % (0-3) Basophils (%) (Auto) 1 % (0-3) Neutrophils # (Auto) 14.1 x10^3uL (1.8-7.7) Lymphocytes # (Auto) 1.7 x10^3/uL (1.0-4.8) Monocytes # (Auto) 0.7 x10^3/uL (0.0-1.1) Eosinophils # (Auto) 0.1 x10^3/uL (0.0-0.7) Basophils # (Auto) 0.1 x10^3/uL (0.0-0.2) Sodium Level 143 mmol/L (136-145) Potassium Level 3.9 mmol/L (3.5-5.1) Chloride Level 109 mmol/L (98-107) Carbon Dioxide Level 28 mmol/L (21-32) Anion Gap 6 (6-14) Blood Urea Nitrogen 19 mg/dL (8-26) Creatinine 0.6 mg/dL (0.7-1.3) Estimated GFR (Cockcroft-Gault) 132.8 BUN/Creatinine Ratio 32 (6-20) Glucose Level 123 mg/dL (70-99) Calcium Level 8.0 mg/dL (8.5-10.1) Phosphorus Level 3.9 mg/dL (2.6-4.7) Magnesium Level 2.1 mg/dL (1.8-2.4) Total Bilirubin 1.6 mg/dL (0.2-1.0) Aspartate Amino Transf (AST/SGOT) 27 U/L (15-37) Alanine Aminotransferase (ALT/SGPT) 17 U/L (16-63) Alkaline Phosphatase 94 U/L (46-116) Total Protein 4.7 g/dL (6.4-8.2) Albumin 1.1 g/dL (3.4-5.0) Albumin/Globulin Ratio 0.3 (1.0-1.7) O2 Saturation 94 % (92-99) Arterial Blood pH 7.47 (7.35-7.45) Arterial Blood pCO2 at Patient Temp 37 mmHg (35-46) Arterial Blood pO2 at Patient Temp 74 mmHg (65-108) Arterial Blood HCO3 27 mmol/L (21-28) Arterial Blood Base Excess 3 mmol/L (-3-3) FiO2 30 Review of Systems Review of Systems Patient is intubate and does not appear to be in any acute distress Assessment and Plan Assessmemt and Plan Assessment: s/p R colectomy Crohn's dz s/p R part colectomy Abd pain Pelvic abscess Respir failure Hypotension Leukocytosis Thrombocytopenia Afib with RVR CHF Hypokalemia Coagulopathy Plan: 1. Respiratory failure patient is vented. Pulm following (ventilator setting AC/16/500/50%) 2. Hypotension: stable on pressors x2 - suspected sepsis. Blood cult NGTD 3. Leukocytosis: reactive, c/w infection. Decreasing. Will monitor for changes 4. Continue to wean levophed/ vasopressi 5. Cont to monitor for hypokalemia and replete per protocol 6. Cont GI prophylaxis PPI 7. Discussed plan with nursing staff 8. Appreciate the assistance of the subspecialties in this case 9. Not ready for intubation weaning though the sedation turned off. Once pt awake will do CPAP trial Total time 32 minutes Problems: Comment Review of Relevant I have reviewed the following items manuel (where applicable) has been applied. Labs Laboratory Tests Test 05/10/17 06:05 05/10/17 08:00 05/11/17 06:20 05/11/17 08:14 White Blood Count 17.6 x10^3/uL (4.0-11.0) 16.7 x10^3/uL (4.0-11.0) Red Blood Count 2.86 x10^6/uL (4.30-5.70) 2.68 x10^6/uL (4.30-5.70) Hemoglobin 9.8 g/dL (13.0-17.5) 8.7 g/dL (13.0-17.5) Hematocrit 27.9 % (39.0-53.0) 27.2 % (39.0-53.0) Mean Corpuscular Volume 97 fL (79-100) 102 fL (79-100) Mean Corpuscular Hemoglobin 34 pg (25-35) 32 pg (25-35) Mean Corpuscular Hemoglobin Concent 35 g/dL (31-37) 32 g/dL (31-37) Red Cell Distribution Width 17.1 % (11.5-14.5) 17.7 % (11.5-14.5) Platelet Count 150 x10^3/uL (140-400) 191 x10^3/uL (140-400) Neutrophils (%) (Auto) 86 % (31-73) 85 % (31-73) Lymphocytes (%) (Auto) 10 % (24-48) 10 % (24-48) Monocytes (%) (Auto) 4 % (0-9) 4 % (0-9) Eosinophils (%) (Auto) 0 % (0-3) 1 % (0-3) Basophils (%) (Auto) 1 % (0-3) 1 % (0-3) Neutrophils # (Auto) 15.1 x10^3uL (1.8-7.7) 14.1 x10^3uL (1.8-7.7) Lymphocytes # (Auto) 1.7 x10^3/uL (1.0-4.8) 1.7 x10^3/uL (1.0-4.8) Monocytes # (Auto) 0.7 x10^3/uL (0.0-1.1) 0.7 x10^3/uL (0.0-1.1) Eosinophils # (Auto) 0.0 x10^3/uL (0.0-0.7) 0.1 x10^3/uL (0.0-0.7) Basophils # (Auto) 0.1 x10^3/uL (0.0-0.2) 0.1 x10^3/uL (0.0-0.2) Sodium Level 145 mmol/L (136-145) 143 mmol/L (136-145) Potassium Level 3.4 mmol/L (3.5-5.1) 3.9 mmol/L (3.5-5.1) Chloride Level 111 mmol/L (98-107) 109 mmol/L (98-107) Carbon Dioxide Level 28 mmol/L (21-32) 28 mmol/L (21-32) Anion Gap 6 (6-14) 6 (6-14) Blood Urea Nitrogen 15 mg/dL (8-26) 19 mg/dL (8-26) Creatinine 0.7 mg/dL (0.7-1.3) 0.6 mg/dL (0.7-1.3) Estimated GFR (Cockcroft-Gault) 111.2 132.8 BUN/Creatinine Ratio 21 (6-20) 32 (6-20) Glucose Level 122 mg/dL (70-99) 123 mg/dL (70-99) Calcium Level 7.8 mg/dL (8.5-10.1) 8.0 mg/dL (8.5-10.1) Total Bilirubin 1.4 mg/dL (0.2-1.0) 1.6 mg/dL (0.2-1.0) Aspartate Amino Transf (AST/SGOT) 25 U/L (15-37) 27 U/L (15-37) Alanine Aminotransferase (ALT/SGPT) 14 U/L (16-63) 17 U/L (16-63) Alkaline Phosphatase 92 U/L (46-116) 94 U/L (46-116) Total Protein 4.8 g/dL (6.4-8.2) 4.7 g/dL (6.4-8.2) Albumin 1.3 g/dL (3.4-5.0) 1.1 g/dL (3.4-5.0) Albumin/Globulin Ratio 0.4 (1.0-1.7) 0.3 (1.0-1.7) O2 Saturation 96 % (92-99) 94 % (92-99) Arterial Blood pH 7.46 (7.35-7.45) 7.47 (7.35-7.45) Arterial Blood pCO2 at Patient Temp 35 mmHg (35-46) 37 mmHg (35-46) Arterial Blood pO2 at Patient Temp 81 mmHg (65-108) 74 mmHg (65-108) Arterial Blood HCO3 25 mmol/L (21-28) 27 mmol/L (21-28) Arterial Blood Base Excess 1 mmol/L (-3-3) 3 mmol/L (-3-3) FiO2 30 30 Phosphorus Level 3.9 mg/dL (2.6-4.7) Magnesium Level 2.1 mg/dL (1.8-2.4) Laboratory Tests Test 05/11/17 06:20 05/11/17 08:14 White Blood Count 16.7 x10^3/uL (4.0-11.0) Red Blood Count 2.68 x10^6/uL (4.30-5.70) Hemoglobin 8.7 g/dL (13.0-17.5) Hematocrit 27.2 % (39.0-53.0) Mean Corpuscular Volume 102 fL (79-100) Mean Corpuscular Hemoglobin 32 pg (25-35) Mean Corpuscular Hemoglobin Concent 32 g/dL (31-37) Red Cell Distribution Width 17.7 % (11.5-14.5) Platelet Count 191 x10^3/uL (140-400) Neutrophils (%) (Auto) 85 % (31-73) Lymphocytes (%) (Auto) 10 % (24-48) Monocytes (%) (Auto) 4 % (0-9) Eosinophils (%) (Auto) 1 % (0-3) Basophils (%) (Auto) 1 % (0-3) Neutrophils # (Auto) 14.1 x10^3uL (1.8-7.7) Lymphocytes # (Auto) 1.7 x10^3/uL (1.0-4.8) Monocytes # (Auto) 0.7 x10^3/uL (0.0-1.1) Eosinophils # (Auto) 0.1 x10^3/uL (0.0-0.7) Basophils # (Auto) 0.1 x10^3/uL (0.0-0.2) Sodium Level 143 mmol/L (136-145) Potassium Level 3.9 mmol/L (3.5-5.1) Chloride Level 109 mmol/L (98-107) Carbon Dioxide Level 28 mmol/L (21-32) Anion Gap 6 (6-14) Blood Urea Nitrogen 19 mg/dL (8-26) Creatinine 0.6 mg/dL (0.7-1.3) Estimated GFR (Cockcroft-Gault) 132.8 BUN/Creatinine Ratio 32 (6-20) Glucose Level 123 mg/dL (70-99) Calcium Level 8.0 mg/dL (8.5-10.1) Phosphorus Level 3.9 mg/dL (2.6-4.7) Magnesium Level 2.1 mg/dL (1.8-2.4) Total Bilirubin 1.6 mg/dL (0.2-1.0) Aspartate Amino Transf (AST/SGOT) 27 U/L (15-37) Alanine Aminotransferase (ALT/SGPT) 17 U/L (16-63) Alkaline Phosphatase 94 U/L (46-116) Total Protein 4.7 g/dL (6.4-8.2) Albumin 1.1 g/dL (3.4-5.0) Albumin/Globulin Ratio 0.3 (1.0-1.7) O2 Saturation 94 % (92-99) Arterial Blood pH 7.47 (7.35-7.45) Arterial Blood pCO2 at Patient Temp 37 mmHg (35-46) Arterial Blood pO2 at Patient Temp 74 mmHg (65-108) Arterial Blood HCO3 27 mmol/L (21-28) Arterial Blood Base Excess 3 mmol/L (-3-3) FiO2 30 Microbiology 05/06/17 Blood Culture - Final, Complete NO GROWTH AFTER 5 DAYS 05/05/17 Anaerobic/Aerobic Culture - Final, Complete 05/05/17 Anaerobic Culture Result 1 (ENOCH) - Final, Complete 05/05/17 Aerobic Culture - Final, Complete 05/05/17 Aerobic Culture Result 1 (ENOCH) - Final, Complete 05/05/17 Aerobic Culture Result 2 (ENOCH) - Final, Complete 05/05/17 Aerobic Culture Result 3 (ENOCH) - Final, Complete 05/05/17 Antimicrobic Susceptibility - Final, Complete Medications Current Medications Ondansetron HCl (Zofran) 4 mg PRN Q6HRS PRN IV NAUSEA/VOMITING; Start 04/29/17 at 07:00; Stop 04/29/17 at 17:32; Status DC Fentanyl Citrate (Fentanyl 2ml Vial) 25 mcg PRN Q5MIN PRN IV MILD PAIN; Start 04/29/17 at 07:00; Stop 04/30/17 at 06:59; Status DC Fentanyl Citrate (Fentanyl 2ml Vial) 50 mcg PRN Q5MIN PRN IV MODERATE PAIN Last administered on 04/29/17 16:59; Start 04/29/17 at 07:00; Stop 04/30/17 at 06:59; Status DC Morphine Sulfate 1 mg PRN Q10MIN PRN IV SEVERE PAIN Last administered on 16:41; Start 04/29/17 at 07:00; Stop 04/30/17 at 06:59; Status DC Ringer's Solution 1,000 ml @ 30 mls/hr Q24H IV Last administered on 04/29/17 10:42; Start 04/29/17 at 07:00; Stop 04/29/17 at 18:59; Status DC Lidocaine HCl 2 ml PRN 1X PRN ID PRIOR TO IV START; Start 04/29/17 at 07:00; Stop 04/30/17 at 06:59; Status DC Hydromorphone HCl (Dilaudid) 0.5 mg PRN Q10MIN PRN IV SEV PAIN, Second choice; Start 04/29/17 at 07:00; Stop 04/30/17 at 06:59; Status DC Prochlorperazine Edisylate (Compazine) 5 mg PACU PRN PRN IV NAUSEA, MRX1; Start 04/29/17 at 07:00; Stop 04/30/17 at 06:59; Status DC Cefoxitin Sodium 1 gm/Sodium Chloride 50 ml @ 100 mls/hr 1X ONCE IV Last administered on 04/29/17t 12:00; Start 04/29/17 at 06:00; Stop 04/29/17 at 06:29 ; Status DC Dexamethasone Sodium Phosphate (Decadron) 20 mg STK-MED ONCE .ROUTE ; Start at 10:47; Stop 04/29/17 at 10:48; Status DC Ondansetron HCl (Zofran) 4 mg STK-MED ONCE .ROUTE ; Start 04/29/17 at 10:47; Stop 04/29/17 at 10:48; Status DC Propofol 20 ml @ As Directed STK-MED ONCE IV ; Start 04/29/17 at 10:47; Stop at 10:48; Status DC Lidocaine HCl (Lidocaine Pf 2% Vial) 5 ml STK-MED ONCE .ROUTE ; Start 04/29/17 at 10:47; Stop 04/29/17 at 10:48; Status DC Desflurane (Suprane) 60 ml STK-MED ONCE IH ; Start 04/29/17 at 10:47; Stop 04/29 at 10:48; Status DC Fentanyl Citrate (Fentanyl 2ml Vial) 100 mcg STK-MED ONCE .ROUTE ; Start at 10:47; Stop 04/29/17 at 10:48; Status DC Rocuronium [place] (Zemuron) 50 mg STK-MED ONCE .ROUTE ; Start 04/29/17 at 10:47 ; Stop 04/29/17 at 10:48; Status DC Phenylephrine HCl 1 mg STK-MED ONCE IV ; Start 04/29/17 at 11:52; Stop 04/29/17 at 11:53; Status DC Hydrocortisone Sodium Succinate (Solu-CORTEF) 100 mg STK-MED ONCE .ROUTE ; Start 04/29/17 at 12:04; Stop 04/29/17 at 12:05; Status DC Fentanyl Citrate (Fentanyl 2ml Vial) 100 mcg STK-MED ONCE .ROUTE ; Start at 12:21; Stop 04/29/17 at 12:22; Status DC Rocuronium [place] (Zemuron) 50 mg STK-MED ONCE .ROUTE ; Start 04/29/17 at 12:53 ; Stop 04/29/17 at 12:54; Status DC Labetalol HCl (Normodyne) 20 mg STK-MED ONCE .ROUTE ; Start 04/29/17 at 12:53; Stop 04/29/17 at 12:54; Status DC Fentanyl Citrate (Fentanyl 2ml Vial) 100 mcg STK-MED ONCE .ROUTE ; Start at 12:55; Stop 04/29/17 at 12:56; Status DC Esmolol HCl (Brevibloc) 100 mg STK-MED ONCE IV ; Start 04/29/17 at 12:59; Stop 04/29/17 at 13:00; Status DC Morphine Sulfate 10 mg STK-MED ONCE .ROUTE ; Start 04/29/17 at 13:03; Stop 04/29 at 13:04; Status DC Rocuronium [place] (Zemuron) 100 mg STK-MED ONCE .ROUTE ; Start 04/29/17 at 14: 10; Stop 04/29/17 at 14:11; Status DC Fentanyl Citrate (Fentanyl 2ml Vial) 100 mcg STK-MED ONCE .ROUTE ; Start at 15:08; Stop 04/29/17 at 15:09; Status DC Glycopyrrolate (Robinul) 1 mg STK-MED ONCE .ROUTE ; Start 04/29/17 at 15:29; Stop 04/29/17 at 15:30; Status DC Neostigmine Methylsulfate 5 mg STK-MED ONCE .ROUTE ; Start 04/29/17 at 15:29; Stop 04/29/17 at 15:30; Status DC Esmolol HCl (Brevibloc) 100 mg STK-MED ONCE IV ; Start 04/29/17 at 16:05; Stop 04/29/17 at 16:06; Status DC Diphenhydramine HCl (Benadryl) 25 mg PRN Q6HRS PRN IV ITCHING Last administered on 05/04/17 20:36; Start 04/29/17 at 16:30 Enoxaparin Sodium (Lovenox 40mg Syringe) 40 mg Q24H SQ Last administered on 05/10 06:27; Start 04/30/17 at 06:00; Stop 05/10/17 at 20:48; Status DC Sodium Chloride (Normal Saline Flush) 3 ml QSHIFT PRN IV AFTER MEDS AND BLOOD DRAWS; Start 04/29/17 at 16:30 Potassium Chloride/Sodium Chloride 1,000 ml @ 100 mls/hr Q10H IV Last administered on 05/01/17 00:17; Start 04/29/17 at 16:26; Stop 05/01/17 at 18:31 ; Status DC Hydromorphone HCl 30 ml @ 0 mls/hr CONT PRN PRN IV PROTOCOL Last administered on 04/30/17 18:01; Start 04/29/17 at 16:30; Stop 05/03/17 at 09:45; Status DC Ondansetron HCl (Zofran) 4 mg PRN Q6HRS PRN IV NAUESA, 1ST CHOICE; Start at 16:30; Stop 05/02/17 at 12:27; Status DC Throat Lozenges (Chloraseptic) 1 spray PRN Q2HR PRN PO SORE THROAT; Start 04/29 at 16:45; Stop 05/05/17 at 11:28; Status DC Throat Lozenges (Chloraseptic) 1 spray PRN Q2HR PRN PO SORE THROAT; Start 04/29 at 16:45; Stop 04/29/17 at 17:32; Status DC Digoxin (Lanoxin) 125 mcg DAILY PO Last administered on 05/01/17 09:32; Start 04/30/17 at 09:00; Stop 05/01/17 at 14:05; Status DC Prednisone (Prednisone) 10 mg DAILY PO ; Start 04/30/17 at 09:00; Stop 04/30/17 at 16:33; Status DC Methylprednisolone Sodium Succinate (SOLU-Medrol 40MG VIAL) 15 mg DAILY IV Last administered on 05/02/17 07:59; Start 04/30/17 at 11:00; Stop 05/02/17 at 14:00; Status DC Pantoprazole Sodium (Protonix Vial) 40 mg DAILYAC IVP Last administered on 05/02 07:57; Start 04/30/17 at 17:00; Stop 05/02/17 at 13:45; Status DC Digoxin (Lanoxin) 250 mcg DAILY PO Last administered on 05/05/17 09:29; Start 05/02/17 at 09:00; Stop 05/06/17 at 14:54; Status DC Sodium Chloride 1,000 ml @ 100 mls/hr Q10H IV Last administered on 05/04/17 03:25; Start 05/01/17 at 18:30; Stop 05/04/17 at 15:20; Status DC Nicotine (Nicoderm Cq 14mg) 1 patch PRN DAILY PRN TD SMOKING CESSATION Last administered on 05/04/17 11:15; Start 05/02/17 at 06:45 Ondansetron HCl (Zofran) 4 mg PRN Q6HRS PRN IV NAUSEA/VOMITING Last administered on 05/05/17 09:36; Start 05/02/17 at 12:30 Acetaminophen/ Hydrocodone Bitart (Lortab 5/325) 1 tab PRN Q4HRS PRN PO MILD PAIN Last administered on 05/04/17 17:13; Start 05/02/17 at 12:30 Fentanyl Citrate (Fentanyl 2ml Vial) 50 mcg PRN Q2HR PRN IV MODERATE PAIN Last administered on 05/06/17 08:14; Start 05/02/17 at 12:30; Stop 05/06/17 at 10:55 ; Status DC Famotidine (Pepcid) 20 mg DAILY IVP Last administered on 05/03/17 09:01; Start 05/03/17 at 09:00; Stop 05/03/17 at 09:45; Status DC Hydromorphone HCl (Dilaudid) 1 mg PRN Q4HRS PRN IV SEVERE PAIN Last administered on 05/04/17 11:13; Start 05/03/17 at 09:45; Stop 05/06/17 at 10:55 ; Status DC Morphine Sulfate (Ms Contin) 15 mg BID PO Last administered on 05/04/17 21:35 ; Start 05/03/17 at 09:45; Stop 05/08/17 at 09:52; Status DC Metoprolol Tartrate (Lopressor) 12.5 mg Q6HRS PO Last administered on 11:14; Start 05/03/17 at 19:00; Stop 05/04/17 at 12:51; Status DC Info 1 each PRN DAILY PRN MC SEE COMMENTS Last administered on 05/11/17 11:19; Start 05/04/17 at 11:15 Metoprolol Tartrate (Lopressor) 25 mg BID PO ; Start 05/04/17 at 21:00; Stop at 14:54; Status DC Magnesium Sulfate/ Dextrose 50 ml @ 25 mls/hr 1X ONCE IV Last administered on 05/04/17 15:46; Start 05/04/17 at 16:00; Stop 05/04/17 at 17:59; Status DC Amino Acids/ Glycerin/ Electrolytes 1,000 ml @ 80 mls/hr [id number] IV Last administered on 05/05/17 05:32; Start 05/04/17 at 16:00; Stop 05/05/17 at 21:59 ; Status DC Amino Acids/ Glycerin/ Electrolytes 1,000 ml @ 80 mls/hr [id number] IV ; Start at 15:30; Status UNV Sodium Chloride 1,000 ml @ 100 mls/hr Q10H IV Last administered on 05/05/17 16:32; Start 05/04/17 at 16:00; Stop 05/06/17 at 01:03; Status DC Albumin Human 500 ml @ 100 mls/hr 1X ONCE IV Last administered on 05/05/17 00:05; Start 05/04/17 at 22:00; Stop 05/05/17 at 02:59; Status DC Lidocaine HCl (Glydo (Lidocaine) Jelly) 1 emelia 1X ONCE MM Last administered on 05/05/17 08:30; Start 05/05/17 at 08:30; Stop 05/05/17 at 08:35; Status DC Throat Lozenges (Chloraseptic) 1 spray PRN Q2HR PRN PO SORE THROAT; Start 05/05 at 08:30 Non-Formulary Medication 1 each DAILY PO ; Start 05/06/17 at 09:00; Stop at 09:00; Status DC Non-Formulary Medication 1 tab QHS PO ; Start 05/05/17 at 21:00; Stop 05/05/17 at 21:00; Status DC Benzocaine (Hurricaine One) 1 spray 1X ONCE MM Last administered on 05/05/17 10:30; Start 05/05/17 at 10:30; Stop 05/05/17 at 10:31; Status DC Throat Lozenges (Cepacol Sore Throat Lozenge) 1 west PRN Q2HRS PRN PO SORE THROAT; Start 05/05/17 at 11:00 Albumin Human 500 ml @ 100 mls/hr 1X ONCE IV Last administered on 05/05/17 13:24; Start 05/05/17 at 11:15; Stop 05/05/17 at 16:14; Status DC Sodium Chloride 1,000 ml @ 1,000 mls/hr 1X ONCE IV ; Start 05/05/17 at 11:30; Stop 05/05/17 at 12:29; Status DC Famotidine (Pepcid) 20 mg BID IVP Last administered on 05/11/17 09:43; Start at 12:00 Amiodarone HCl 900 mg/Dextrose 518 ml @ 0 mls/hr CONT PRN IV SEE I/O RECORD Last administered on 05/05/17 13:17; Start 05/05/17 at 12:15; Stop 05/05/17 at 13:17; Status DC Amiodarone HCl 150 mg/Dextrose 103 ml @ 618 mls/hr 1X ONCE IV Last administered on 05/05/17 12:30; Start 05/05/17 at 12:30; Stop 05/05/17 at 12:39 ; Status DC Potassium Phosphate 13.6 mmol/Sodium Chloride 104.5333 ml @ 52.267 m... Q2H IV ; Start 05/05/17 at 14:30; Stop 05/05/17 at 16:29; Status DC Sodium Chloride 90 meq/Potassium Chloride 50 meq/ Potassium Phosphate 17 mmol/ Magnesium Sulfate 10 meq/Calcium Gluconate 5 meq/ Multivitamins 10 ml/Chromium/ Copper/Manganese/ Seleni/Zn 1 ml/ Total Parenteral Nutrition/Amino Acids/ Dextrose/ Fat Emulsion Intravenous 1,512 ml @ 63 mls/hr TPN CONT IV Last administered on 05/05/17 21:46; Start 05/05/17 at 22:00; Stop 05/06/17 at 21:59 ; Status DC Iohexol (Omnipaque 300 Mg/ml) 60 ml 1X ONCE IV Last administered on 05/05/17 14:50; Start 05/05/17 at 14:45; Stop 05/05/17 at 14:46; Status DC Info (Do NOT chart on this entry -- for MONITORING) 1 each PRN DAILY PRN MC SEE COMMENTS; Start 05/05/17 at 14:45; Stop 05/07/17 at 14:45; Status DC Sodium Chloride 1,000 ml @ 2,000 mls/hr 1X ONCE IV Last administered on 16:33; Start 05/05/17 at 16:00; Stop 05/05/17 at 16:29; Status DC Vancomycin HCl (Vanco Per Pharmacy) 1 each PRN DAILY PRN MC SEE COMMENTS Last administered on 05/08/17 09:08; Start 05/05/17 at 16:00; Stop 05/09/17 at 14:01 ; Status DC Piperacillin Sod/ Tazobactam Sod (Zosyn Per Pharmacy) 1 each PRN DAILY PRN MC SEE COMMENTS; Start 05/05/17 at 16:00; Stop 05/10/17 at 07:20; Status DC Piperacillin Sod/ Tazobactam Sod 4.5 gm/Sodium Chloride 100 ml @ 200 mls/hr Q6HRS IV Last administered on 05/09/17 13:02; Start 05/05/17 at 17:00; Stop 05/09/17 at 13:58; Status DC Vancomycin HCl 1.75 gm/Sodium Chloride 500 ml @ 250 mls/hr 1X ONCE IV Last administered on 05/05/17 16:30; Start 05/05/17 at 17:00; Stop 05/05/17 at 18:59 ; Status DC Potassium Chloride 50 ml @ 50 mls/hr Q1H IV Last administered on 05/05/17 16: 59; Start 05/05/17 at 16:30; Stop 05/05/17 at 19:29; Status DC Vancomycin HCl 1.25 gm/Sodium Chloride 250 ml @ 167 mls/hr Q12H IV Last administered on 05/06/17 18:57; Start 05/06/17 at 06:00; Stop 05/07/17 at 07:47 ; Status DC Vancomycin HCl 1 each 1X ONCE MC Last administered on 05/07/17 05:30; Start 05/07/17 at 05:30; Stop 05/07/17 at 05:31; Status DC Norepinephrine Bitartrate 250 ml @ As Directed STK-MED ONCE IV ; Start at 16:22; Stop 05/05/17 at 16:23; Status DC Norepinephrine Bitartrate 250 ml @ 0 mls/hr CONT PRN IV SEE I/O RECORD Last administered on 05/10/17 17:53; Start 05/05/17 at 16:45 Vasopressin 40 unit/Dextrose 102 ml @ 6 mls/hr CONT PRN IV SEE I/O RECORD Last administered on 05/09/17 19:25; Start 05/05/17 at 17:00 Phenylephrine HCl 20 mg/Sodium Chloride 252 ml @ 0 mls/hr CONT PRN IV SEE I/O RECORD Last administered on 05/06/17 06:22; Start 05/05/17 at 17:00; Stop 05/06 at 08:00; Status DC Propofol 0 ml @ As Directed STK-MED ONCE IV ; Start 05/05/17 at 17:21; Stop at 17:22; Status DC Lidocaine HCl (Lidocaine Pf 2% Vial) 5 ml STK-MED ONCE .ROUTE ; Start 05/05/17 at 17:21; Stop 05/05/17 at 17:22; Status DC Fentanyl Citrate (Fentanyl 2ml Vial) 100 mcg STK-MED ONCE .ROUTE ; Start at 17:22; Stop 05/05/17 at 17:23; Status DC Succinylcholine Chloride (Anectine) 200 mg STK-MED ONCE .ROUTE ; Start 05/05/17 at 17:22; Stop 05/05/17 at 17:23; Status DC Rocuronium [place] (Zemuron) 50 mg STK-MED ONCE .ROUTE ; Start 05/05/17 at 17:22 ; Stop 05/05/17 at 17:23; Status DC Etomidate (Amidate) 20 mg STK-MED ONCE IV ; Start 05/05/17 at 17:25; Stop at 17:26; Status DC Desflurane (Suprane) 60 ml STK-MED ONCE IH ; Start 05/05/17 at 18:02; Stop 05/05 at 18:03; Status DC Rocuronium [place] (Zemuron) 50 mg STK-MED ONCE .ROUTE ; Start 05/05/17 at 18:52 ; Stop 05/05/17 at 18:53; Status DC Phenylephrine HCl (Bhargav-Synephrine Inj) 10 mg STK-MED ONCE .ROUTE ; Start at 19:53; Stop 05/05/17 at 19:54; Status DC Propofol 100 ml @ 0 mls/hr CONT PRN IV SEE I/O RECORD Last administered on 05/05 21:47; Start 05/05/17 at 21:30 Midazolam HCl 100 ml @ 0 mls/hr CONT PRN IV SEE I/O RECORD Last administered on 05/08/17 00:43; Start 05/05/17 at 22:00 Sodium Bicarbonate 150 meq/Dextrose 1,150 ml @ 100 mls/hr [id number] IV Last administered on 05/07/17 03:44; Start 05/06/17 at 02:00; Stop 05/07/17 at 10:32 ; Status DC Micafungin Sodium 100 mg/Dextrose 100 ml @ 100 mls/hr Q24H IV Last administered on 05/09/17 08:00; Start 05/06/17 at 08:00; Stop 05/09/17 at 13:58; Status DC Phenylephrine HCl 80 mg/Sodium Chloride 258 ml @ 0 mls/hr CONT PRN IV SEE I/O RECORD Last administered on 05/06/17 08:16; Start 05/06/17 at 08:00 Potassium Phosphate 10 mmol/ Sodium Chloride 103.3333 ml @ 51.667 m... Q2H IV Last administered on 05/06/17 16:11; Start 05/06/17 at 08:30; Stop 05/06/17 at 12:29; Status DC Fentanyl Citrate 30 ml @ 0 mls/hr CONT PRN PRN IV PROTOCOL Last administered on 05/10/17 10:47; Start 05/06/17 at 10:45 Naloxone HCl (Narcan) 0.4 mg PRN Q2MIN PRN IV SEE INSTRUCTIONS; Start 05/06/17 at 10:45 Sodium Chloride 1,000 ml @ 25 mls/hr Q24H IV Last administered on 05/10/17 10: 17; Start 05/06/17 at 11:00 Norepinephrine Bitartrate 250 ml @ 0 mls/hr CONT PRN IV SEE I/O RECORD; Start 05/06/17 at 10:45; Status Cancel Sodium Chloride 90 meq/Sodium Acetate 40 meq/ Potassium Chloride 50 meq/ Potassium Phosphate 25 mmol/ Magnesium Sulfate 15 meq/Calcium Gluconate 5 meq/ Multivitamins 10 ml/Chromium/ Copper/Manganese/ Seleni/Zn 1 ml/ Total Parenteral Nutrition/Amino Acids/Dextrose/ Fat Emulsion Intravenous 1,512 ml @ 63 mls/hr TPN CONT IV Last administered on 05/06/17 21:38; Start 05/06/17 at 22:00; Stop 05/07/17 at 21:59; Status DC Famotidine (Pepcid) 20 mg BID IVP ; Start 05/06/17 at 21:00; Status UNV Digoxin (Lanoxin) 250 mcg DAILY PO ; Start 05/06/17 at 16:00; Stop 05/08/17 at 10:59; Status DC Vancomycin HCl 1 gm/Sodium Chloride 250 ml @ 250 mls/hr Q8H IV Last administered on 05/09/17 12:59; Start 05/07/17 at 08:00; Stop 05/09/17 at 13:58; Status DC Vancomycin HCl 1 each 1X ONCE MC ; Start 05/08/17 at 07:30; Stop 05/08/17 at 07 :31; Status DC Potassium Phosphate 15 mmol/ Sodium Chloride 255 ml @ 127.5 mls/ hr 1X ONCE IV Last administered on 05/07/17 10:46; Start 05/07/17 at 10:30; Stop at 12:29; Status DC Sodium Chloride 1,000 ml @ 75 mls/hr [id number] IV Last administered on 05/11/17 11:23; Start 05/07/17 at 12:00 Sodium Chloride 90 meq/Sodium Acetate 40 meq/ Potassium Chloride 50 meq/ Potassium Phosphate 25 mmol/ Magnesium Sulfate 15 meq/Calcium Gluconate 5 meq/ Multivitamins 10 ml/Chromium/ Copper/Manganese/ Seleni/Zn 1 ml/ Total Parenteral Nutrition/Amino Acids/Dextrose/ Fat Emulsion Intravenous 1,512 ml @ 63 mls/hr TPN CONT IV Last administered on 05/07/17 21:06; Start 05/07/17 at 22:00; Stop 05/08/17 at 21:59; Status DC Albumin Human 100 ml @ 100 mls/hr 1X ONCE IV Last administered on 05/07/17 21:06; Start 05/07/17 at 20:45; Stop 05/07/17 at 21:44; Status DC Potassium Phosphate 15 mmol/ Sodium Chloride 255 ml @ 85 mls/hr Q2H IV Last administered on 05/07/17 21:55; Start 05/07/17 at 22:00; Stop 05/07/17 at 23:59 ; Status DC Digoxin (Lanoxin) 250 mcg DAILY IV Last administered on 05/11/17 09:40; Start 05/08/17 at 11:15 Sodium Chloride 90 meq/Sodium Acetate 40 meq/ Potassium Chloride 50 meq/ Potassium Phosphate 20 mmol/ Magnesium Sulfate 15 meq/Calcium Gluconate 5 meq/ Multivitamins 10 ml/Chromium/ Copper/Manganese/ Seleni/Zn 1 ml/ Total Parenteral Nutrition/Amino Acids/Dextrose/ Fat Emulsion Intravenous 1,512 ml @ 63 mls/hr TPN CONT IV Last administered on 05/08/17 21:39; Start 05/08/17 at 22:00; Stop 05/09/17 at 21:59; Status DC Chlorhexidine Gluconate (Peridex) 15 ml BID SWSP Last administered on 05/11/17 09:43; Start 05/08/17 at 21:00 Multi-Ingred Cream/Lotion/Oil/ Oint (Artificial Tears Eye Oint) 1 emelia PRN Q12HR PRN OU DRY EYE Last administered on 05/08/17 16:31; Start 05/08/17 at 14:45 Sodium Chloride 90 meq/Sodium Acetate 40 meq/ Potassium Acetate 70 meq/ Potassium Phosphate 20 mmol/ Magnesium Sulfate 15 meq/Calcium Gluconate 5 meq/ Multivitamins 10 ml/Chromium/ Copper/Manganese/ Seleni/Zn 1 ml/ Total Parenteral Nutrition/Amino Acids/Dextrose/ Fat Emulsion Intravenous 1,512 ml @ 63 mls/hr TPN CONT IV Last administered on 05/09/17 22:13; Start 05/09/17 at 22 :00; Stop 05/10/17 at 21:59; Status DC Ceftriaxone Sodium 1 gm/ Sodium Chloride 50 ml @ 100 mls/hr Q24H IV Last administered on 05/10/17 15:46; Start 05/09/17 at 14:00 Sodium Chloride 60 meq/Sodium Acetate 50 meq/ Potassium Acetate 90 meq/ Potassium Phosphate 20 mmol/ Magnesium Sulfate 15 meq/Calcium Gluconate 5 meq/ Multivitamins 10 ml/Chromium/ Copper/Manganese/ Seleni/Zn 1 ml/ Total Parenteral Nutrition/Amino Acids/Dextrose/ Fat Emulsion Intravenous 1,512 ml @ 63 mls/hr TPN CONT IV Last administered on 05/10/17 21:24; Start 05/10/17 at 22 :00; Stop 05/11/17 at 21:59 Enoxaparin Sodium (Lovenox 40mg Syringe) 40 mg Q24H SQ Last administered on 05/10 21:23; Start 05/10/17 at 21:00 Sodium Chloride 40 meq/Sodium Acetate 50 meq/ Potassium Acetate 90 meq/ Potassium Phosphate 20 mmol/ Magnesium Sulfate 15 meq/Calcium Gluconate 5 meq/ Multivitamins 10 ml/Chromium/ Copper/Manganese/ Seleni/Zn 1 ml/ Total Parenteral Nutrition/Amino Acids/Dextrose/ Fat Emulsion Intravenous 1,512 ml @ 63 mls/hr TPN CONT IV ; Start 05/11/17 at 22:00; Stop 05/12/17 at 21:59 Micafungin Sodium 100 mg/Dextrose 100 ml @ 100 mls/hr Q24H IV Last administered on 05/11/17 13:52; Start 05/11/17 at 12:00 Active Scripts Active Reported Melatonin 3 Mg Tablet 1 Tab PO QHS Move Free Joint Health Tablet (Glucosam/Chond/Hyalu/Cf Borate) 1 Each Tablet 1 Each PO DAILY Digoxin 125 Mcg Tablet 1 Tab PO DAILY Prednisone 10 Mg Tablet 10 Mg PO DAILY Vitals/I & O Vital Sign - Last 24 Hours 05/10/17 05/10/17 05/10/17 05/10/17 14:44 15:00 15:45 16:00 Pulse 75 Resp 25 B/P (MAP) 124/50 (74) Pulse Ox 100 99 100 O2 Delivery Ventilator Ventilator Mechanical Ventilator O2 Flow Rate 30.0 05/10/17 05/10/17 05/10/17 05/10/17 16:00 16:00 17:00 18:00 Temp 98.6 98.6 Pulse 88 86 84 92 Resp 22 24 22 B/P (MAP) 109/61 (77) 101/64 (76) 113/70 (84) Pulse Ox 100 100 100 O2 Delivery Ventilator Ventilator Ventilator 05/10/17 05/10/17 05/10/17 05/10/17 19:00 20:00 20:00 20:14 Temp 99.3 99.3 Pulse 115 100 Resp 15 17 B/P (MAP) 97/56 (70) 106/54 (71) Pulse Ox 99 98 98 O2 Delivery Ventilator Mechanical Ventilator Ventilator Ventilator 05/10/17 05/10/17 05/10/17 05/10/17 21:00 22:00 22:50 23:00 Pulse 112 103 112 Resp 16 16 24 B/P (MAP) 112/61 (78) 111/61 (78) 113/70 (84) Pulse Ox 97 97 99 99 O2 Delivery Ventilator Ventilator Ventilator Ventilator 05/11/17 05/11/17 05/11/17 05/11/17 00:00 00:00 01:00 01:16 Temp 100.3 100.3 Pulse 117 107 Resp 24 21 B/P (MAP) 106/64 (78) 87/55 (66) Pulse Ox 98 99 99 O2 Delivery Ventilator Mechanical Ventilator Ventilator Ventilator 05/11/17 05/11/17 05/11/17 05/11/17 02:00 03:00 03:24 04:00 Pulse 111 89 Resp 20 21 B/P (MAP) 85/62 (70) 94/63 (73) Pulse Ox 99 100 100 O2 Delivery Ventilator Ventilator Ventilator Mechanical Ventilator 05/11/17 05/11/17 05/11/17 05/11/17 04:00 05:00 06:00 06:02 Temp 98.5 98.5 Pulse 91 87 86 Resp 27 22 28 B/P (MAP) 102/83 (89) 87/66 (73) 124/81 (95) Pulse Ox 100 100 100 100 O2 Delivery Ventilator Ventilator Ventilator Ventilator 05/11/17 05/11/17 05/11/17 05/11/17 07:00 07:36 08:00 08:00 Pulse 92 92 Resp 22 B/P (MAP) 106/69 (81) Pulse Ox 95 99 O2 Delivery Ventilator Ventilator Mechanical Ventilator 05/11/17 05/11/17 05/11/17 05/11/17 08:00 09:00 09:06 09:40 Temp 98.3 98.3 Pulse 92 92 102 Resp 22 22 B/P (MAP) 106/69 (81) 122/82 (95) 95/72 Pulse Ox 99 100 99 O2 Delivery Ventilator Ventilator Ventilator 05/11/17 05/11/17 05/11/17 05/11/17 10:00 11:00 11:10 12:00 Temp 99.0 99.0 Pulse 90 96 101 Resp 22 28 24 B/P (MAP) 122/73 (89) 117/78 (91) 108/68 (81) Pulse Ox 99 100 100 100 O2 Delivery Ventilator Ventilator Ventilator Ventilator 05/11/17 05/11/17 05/11/17 05/11/17 12:00 12:00 13:00 13:01 Pulse 101 95 Resp 21 B/P (MAP) 114/74 (87) Pulse Ox 100 99 O2 Delivery Mechanical Ventilator Ventilator Ventilator Intake and Output 05/10/17 05/10/17 05/11/17 15:00 23:00 07:00 Intake Total 0 ml 1641 ml 2103.4 ml Output Total 550 ml 1050 ml 1225 ml Balance -550 ml 591 ml 878.4 ml EVELIO BLANTON III DO May 11, 2017 14:14
[2017-05-11] MEDS: ENOXAPARIN 40 MG/0.4 ML SYRINGE. SQ SCH (20:42)
[2017-05-11] MEDS ORDERED: AMINO ACIDS IV SCH ×11 (22:00)
[2017-05-11] MEDS ORDERED: TOTAL PARENTERAL NUTRITION IV SCH ×11 (22:00)
[2017-05-11] MEDS ORDERED: DEXTROSE 70% IV SCH ×11 (22:00)
[2017-05-11] MEDS ORDERED: [UNRECOGNIZED DRUG - OTHER] IV SCH ×11 (22:00)
[2017-05-12] VITALS (24 sets, daily range): BP systolic 98–146; BP diastolic 63–91
[2017-05-12] MEDS: IV NORMAL SALINE 1000ML BAG 1,000 ML IV SCH ×3 (03:29→19:18)
[2017-05-12 06:17] LABS: ALBUMIN 1.1 g/dL (3.4-5.0); ALBUMIN/GLOBULIN RATIO 0.3 (1.0-1.7); CALCIUM 8.2 mg/dL (8.5-10.1); CREATININE 0.6 mg/dL (0.7-1.3); GFR 132.8; POTASSIUM 4.2 mmol/L (3.5-5.1); TOTAL BILIRUBIN 1.8 mg/dL (0.2-1.0)
[2017-05-12 06:34] LABS: BASO # 0.1 x10^3/uL (0.0-0.2); BASO % 0 % (0-3); EOS % 1 % (0-3); HEMATOCRIT 28.2 % (39.0-53.0); HEMOGLOBIN 9.3 g/dL (13.0-17.5); LYMPH # 1.6 x10^3/uL (1.0-4.8); LYMPH % 10 % (24-48); MEAN CORPUSCULAR HEMOGLOBIN 33 pg (25-35); MEAN CORPUSCULAR HGB CONC 33 g/dL (31-37); MEAN CORPUSCULAR VOLUME 99 fL (79-100); MONO % 5 % (0-9); NEUT % 85 % (31-73); PLATELET COUNT 260 x10^3/uL (140-400); RED BLOOD COUNT 2.84 x10^6/uL (4.30-5.70); RED CELL DISTRIBUTION WIDTH 17.4 % (11.5-14.5)
[2017-05-12] MEDS: FAMOTIDINE 20 MG/2 ML VIAL IVP SCH ×2 (08:16→21:04)
[2017-05-12] MEDS: CHLORHEXIDINE 0.12% 15 ML MOUTHWASH. SWSP SCH ×2 (08:17→21:04)
[2017-05-12] MEDS: DIGOXIN IV 500 MCG/2 ML AMPUL. IV SCH (08:17)
[2017-05-12 08:25] LABS: HCO3 ABG 24 mmol/L (21-28); PCO2 ABG 32 mmHg (35-46); PH ABG 7.49 (7.35-7.45); PO2 ABG 77 mmHg (65-108); SAT O2 ABG 95 % (92-99)
--- NOTE | 2017-05-12 08:25 | PDOC ---
Infectious Disease Note Subjective Subjective Remains intubated. 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 SKIN: No rash IV: ok Labs Lab Laboratory Tests Test 05/12/17 05:37 White Blood Count 17.0 x10^3/uL (4.0-11.0) Red Blood Count 2.84 x10^6/uL (4.30-5.70) Hemoglobin 9.3 g/dL (13.0-17.5) Hematocrit 28.2 % (39.0-53.0) Mean Corpuscular Volume 99 fL (79-100) Mean Corpuscular Hemoglobin 33 pg (25-35) Mean Corpuscular Hemoglobin Concent 33 g/dL (31-37) Red Cell Distribution Width 17.4 % (11.5-14.5) Platelet Count 260 x10^3/uL (140-400) Neutrophils (%) (Auto) 85 % (31-73) Lymphocytes (%) (Auto) 10 % (24-48) Monocytes (%) (Auto) 5 % (0-9) Eosinophils (%) (Auto) 1 % (0-3) Basophils (%) (Auto) 0 % (0-3) Neutrophils # (Auto) 14.4 x10^3uL (1.8-7.7) Lymphocytes # (Auto) 1.6 x10^3/uL (1.0-4.8) Monocytes # (Auto) 0.8 x10^3/uL (0.0-1.1) Eosinophils # (Auto) 0.1 x10^3/uL (0.0-0.7) Basophils # (Auto) 0.1 x10^3/uL (0.0-0.2) Sodium Level 142 mmol/L (136-145) Potassium Level 4.2 mmol/L (3.5-5.1) Chloride Level 109 mmol/L (98-107) Carbon Dioxide Level 29 mmol/L (21-32) Anion Gap 4 (6-14) Blood Urea Nitrogen 18 mg/dL (8-26) Creatinine 0.6 mg/dL (0.7-1.3) Estimated GFR (Cockcroft-Gault) 132.8 BUN/Creatinine Ratio 30 (6-20) Glucose Level 105 mg/dL (70-99) Calcium Level 8.2 mg/dL (8.5-10.1) Total Bilirubin 1.8 mg/dL (0.2-1.0) Aspartate Amino Transf (AST/SGOT) 28 U/L (15-37) Alanine Aminotransferase (ALT/SGPT) 17 U/L (16-63) Alkaline Phosphatase 97 U/L (46-116) Total Protein 5.0 g/dL (6.4-8.2) Albumin 1.1 g/dL (3.4-5.0) Albumin/Globulin Ratio 0.3 (1.0-1.7) Objective Assessment Pelvic abscess. Gram stain: GPC, yeast, anaerobes. Culture E. coli (pansensitive ), yeast so far Sepsis with hypotension, on pressors Leukocytosis, trending up Ruptured ileo-colic anastomosis, fecal impaction s/p rigid procto, disimpaction , ex lap, resection of ileo-colic anastomosis, end ileostomy, Evans's pouch, DALLIN 05/05 Right flank ? 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
[2017-05-12 08:32] LABS: FIO2 ABG 30
--- NOTE | 2017-05-12 09:13 | PDOC ---
FERNANDO CEJA [employer]EL[employer] DEVELOPER 05/12/17 0913: SURGICAL PROGRESS NOTE Subjective family present vent, unresponsive Vital Signs Vital Signs Date Time Temp Pulse Resp B/P (MAP) Pulse Ox O2 Delivery O2 Flow Rate FiO2 05/12/17 09:02 99 Ventilator 05/12/17 08:17 94 05/12/17 06:00 24 124/85 (98) 05/12/17 04:00 99.1 99.1 I&O Intake and Output 05/12/17 07:00 Intake Total 3339 ml Output Total 3162 ml Balance 177 ml IV Total 3339 ml Output Urine Total 2325 ml Gastric Drainage Total 75 ml Drainage Total 762 ml # Voids 90 PATIENT HAS A YANCEY: Yes General: Other (unresponsive) Abdomen: Soft, Other (flank, RLQ erythema, ileostomy with liquid green stool, dressing to midline dry, cami small amount serosang ) Labs Laboratory Tests Test 05/11/17 06:20 05/11/17 08:14 05/12/17 05:37 05/12/17 08:00 White Blood Count 16.7 x10^3/uL (4.0-11.0) 17.0 x10^3/uL (4.0-11.0) Red Blood Count 2.68 x10^6/uL (4.30-5.70) 2.84 x10^6/uL (4.30-5.70) Hemoglobin 8.7 g/dL (13.0-17.5) 9.3 g/dL (13.0-17.5) Hematocrit 27.2 % (39.0-53.0) 28.2 % (39.0-53.0) Mean Corpuscular Volume 102 fL (79-100) 99 fL (79-100) Mean Corpuscular Hemoglobin 32 pg (25-35) 33 pg (25-35) Mean Corpuscular Hemoglobin Concent 32 g/dL (31-37) 33 g/dL (31-37) Red Cell Distribution Width 17.7 % (11.5-14.5) 17.4 % (11.5-14.5) Platelet Count 191 x10^3/uL (140-400) 260 x10^3/uL (140-400) Neutrophils (%) (Auto) 85 % (31-73) 85 % (31-73) Lymphocytes (%) (Auto) 10 % (24-48) 10 % (24-48) Monocytes (%) (Auto) 4 % (0-9) 5 % (0-9) Eosinophils (%) (Auto) 1 % (0-3) 1 % (0-3) Basophils (%) (Auto) 1 % (0-3) 0 % (0-3) Neutrophils # (Auto) 14.1 x10^3uL (1.8-7.7) 14.4 x10^3uL (1.8-7.7) Lymphocytes # (Auto) 1.7 x10^3/uL (1.0-4.8) 1.6 x10^3/uL (1.0-4.8) Monocytes # (Auto) 0.7 x10^3/uL (0.0-1.1) 0.8 x10^3/uL (0.0-1.1) Eosinophils # (Auto) 0.1 x10^3/uL (0.0-0.7) 0.1 x10^3/uL (0.0-0.7) Basophils # (Auto) 0.1 x10^3/uL (0.0-0.2) 0.1 x10^3/uL (0.0-0.2) Sodium Level 143 mmol/L (136-145) 142 mmol/L (136-145) Potassium Level 3.9 mmol/L (3.5-5.1) 4.2 mmol/L (3.5-5.1) Chloride Level 109 mmol/L (98-107) 109 mmol/L (98-107) Carbon Dioxide Level 28 mmol/L (21-32) 29 mmol/L (21-32) Anion Gap 6 (6-14) 4 (6-14) Blood Urea Nitrogen 19 mg/dL (8-26) 18 mg/dL (8-26) Creatinine 0.6 mg/dL (0.7-1.3) 0.6 mg/dL (0.7-1.3) Estimated GFR (Cockcroft-Gault) 132.8 132.8 BUN/Creatinine Ratio 32 (6-20) 30 (6-20) Glucose Level 123 mg/dL (70-99) 105 mg/dL (70-99) Calcium Level 8.0 mg/dL (8.5-10.1) 8.2 mg/dL (8.5-10.1) Phosphorus Level 3.9 mg/dL (2.6-4.7) Magnesium Level 2.1 mg/dL (1.8-2.4) Total Bilirubin 1.6 mg/dL (0.2-1.0) 1.8 mg/dL (0.2-1.0) Aspartate Amino Transf (AST/SGOT) 27 U/L (15-37) 28 U/L (15-37) Alanine Aminotransferase (ALT/SGPT) 17 U/L (16-63) 17 U/L (16-63) Alkaline Phosphatase 94 U/L (46-116) 97 U/L (46-116) Total Protein 4.7 g/dL (6.4-8.2) 5.0 g/dL (6.4-8.2) Albumin 1.1 g/dL (3.4-5.0) 1.1 g/dL (3.4-5.0) Albumin/Globulin Ratio 0.3 (1.0-1.7) 0.3 (1.0-1.7) O2 Saturation 94 % (92-99) 95 % (92-99) Arterial Blood pH 7.47 (7.35-7.45) 7.49 (7.35-7.45) Arterial Blood pCO2 at Patient Temp 37 mmHg (35-46) 32 mmHg (35-46) Arterial Blood pO2 at Patient Temp 74 mmHg (65-108) 77 mmHg (65-108) Arterial Blood HCO3 27 mmol/L (21-28) 24 mmol/L (21-28) Arterial Blood Base Excess 3 mmol/L (-3-3) 1 mmol/L (-3-3) FiO2 30 30 Laboratory Tests Test 05/12/17 05:37 05/12/17 08:00 White Blood Count 17.0 x10^3/uL (4.0-11.0) Red Blood Count 2.84 x10^6/uL (4.30-5.70) Hemoglobin 9.3 g/dL (13.0-17.5) Hematocrit 28.2 % (39.0-53.0) Mean Corpuscular Volume 99 fL (79-100) Mean Corpuscular Hemoglobin 33 pg (25-35) Mean Corpuscular Hemoglobin Concent 33 g/dL (31-37) Red Cell Distribution Width 17.4 % (11.5-14.5) Platelet Count 260 x10^3/uL (140-400) Neutrophils (%) (Auto) 85 % (31-73) Lymphocytes (%) (Auto) 10 % (24-48) Monocytes (%) (Auto) 5 % (0-9) Eosinophils (%) (Auto) 1 % (0-3) Basophils (%) (Auto) 0 % (0-3) Neutrophils # (Auto) 14.4 x10^3uL (1.8-7.7) Lymphocytes # (Auto) 1.6 x10^3/uL (1.0-4.8) Monocytes # (Auto) 0.8 x10^3/uL (0.0-1.1) Eosinophils # (Auto) 0.1 x10^3/uL (0.0-0.7) Basophils # (Auto) 0.1 x10^3/uL (0.0-0.2) Sodium Level 142 mmol/L (136-145) Potassium Level 4.2 mmol/L (3.5-5.1) Chloride Level 109 mmol/L (98-107) Carbon Dioxide Level 29 mmol/L (21-32) Anion Gap 4 (6-14) Blood Urea Nitrogen 18 mg/dL (8-26) Creatinine 0.6 mg/dL (0.7-1.3) Estimated GFR (Cockcroft-Gault) 132.8 BUN/Creatinine Ratio 30 (6-20) Glucose Level 105 mg/dL (70-99) Calcium Level 8.2 mg/dL (8.5-10.1) Total Bilirubin 1.8 mg/dL (0.2-1.0) Aspartate Amino Transf (AST/SGOT) 28 U/L (15-37) Alanine Aminotransferase (ALT/SGPT) 17 U/L (16-63) Alkaline Phosphatase 97 U/L (46-116) Total Protein 5.0 g/dL (6.4-8.2) Albumin 1.1 g/dL (3.4-5.0) Albumin/Globulin Ratio 0.3 (1.0-1.7) O2 Saturation 95 % (92-99) Arterial Blood pH 7.49 (7.35-7.45) Arterial Blood pCO2 at Patient Temp 32 mmHg (35-46) Arterial Blood pO2 at Patient Temp 77 mmHg (65-108) Arterial Blood HCO3 24 mmol/L (21-28) Arterial Blood Base Excess 1 mmol/L (-3-3) FiO2 30 Assessment/Plan supportive care Problems: RON GROSS MD 05/12/17 0928: SURGICAL PROGRESS NOTE Assessment/Plan pt seen and examined labs reviewed d/w his son Mehul and his girlfriend Ayah at the bedside hemodynamically stable (off pressors), renal function OK continue supportive care Problems: FERNANDO CEJA APRN May 12, 2017 09:13 RON GROSS MD May 12, 2017 09:28
--- NOTE | 2017-05-12 09:42 | RAD ---
Indication respiratory failure. A single view of the chest was obtained and is compared to a study yesterday. Vascular congestion, seen previously, appears slightly improved. Volume loss at the lung bases left greater than right likely reflecting pleural fluid and atelectasis appears similar. A new finding in the chest is not seen. A right PICC line and a right IJ catheter are noted. Endotracheal tube is appropriately positioned above the mehnaz. Nasogastric tube is in the stomach. IMPRESSION: Slight interval improvement. No new finding seen
[2017-05-12] MEDS: PIPERACILLIN/TAZOBACTAM 3.375 GM in IV NORMAL SALINE 50ML 50 ML IV SCH ×3 (10:22→18:41)
--- NOTE | 2017-05-12 11:38 | PDOC ---
PROGRESS NOTES Chief Complaint Chief Complaint Crohn's dz s/p R part colectomy Abd pain Pelvic abscess Respir failure Hypotension Leukocytosis Thrombocytopenia Afib with RVR CHF Hypokalemia Coagulopathy History of Present Illness History of Present Illness Seen in the ICU. Intubated.. Vent settings AC/16/500/30%. Unresponsive although no sedation. Discussed the prognosis with the son at beside. Vitals Vitals Vital Signs Date Time Temp Pulse Resp B/P (MAP) Pulse Ox O2 Delivery O2 Flow Rate FiO2 05/12/17 11:19 98 Ventilator 05/12/17 08:17 94 05/12/17 06:00 24 124/85 (98) 05/12/17 04:00 99.1 99.1 Physical Exam General: No acute distress, Other (unresponsive) Heart: Other (tachy) Lungs: Other (DECREASE BS, ERYTHEMA, DRAINS) Abdomen: Soft, Other (flank, RLQ erythema, ileostomy with liquid green stool, dressing to midline dry, cami small amount serosang ) Extremities: No clubbing, Other (2-3+ edema) Skin: No rashes, Other (Moderate scrotal edema) Labs LABS Laboratory Tests Test 05/12/17 05:37 05/12/17 08:00 White Blood Count 17.0 x10^3/uL (4.0-11.0) Red Blood Count 2.84 x10^6/uL (4.30-5.70) Hemoglobin 9.3 g/dL (13.0-17.5) Hematocrit 28.2 % (39.0-53.0) Mean Corpuscular Volume 99 fL (79-100) Mean Corpuscular Hemoglobin 33 pg (25-35) Mean Corpuscular Hemoglobin Concent 33 g/dL (31-37) Red Cell Distribution Width 17.4 % (11.5-14.5) Platelet Count 260 x10^3/uL (140-400) Neutrophils (%) (Auto) 85 % (31-73) Lymphocytes (%) (Auto) 10 % (24-48) Monocytes (%) (Auto) 5 % (0-9) Eosinophils (%) (Auto) 1 % (0-3) Basophils (%) (Auto) 0 % (0-3) Neutrophils # (Auto) 14.4 x10^3uL (1.8-7.7) Lymphocytes # (Auto) 1.6 x10^3/uL (1.0-4.8) Monocytes # (Auto) 0.8 x10^3/uL (0.0-1.1) Eosinophils # (Auto) 0.1 x10^3/uL (0.0-0.7) Basophils # (Auto) 0.1 x10^3/uL (0.0-0.2) Sodium Level 142 mmol/L (136-145) Potassium Level 4.2 mmol/L (3.5-5.1) Chloride Level 109 mmol/L (98-107) Carbon Dioxide Level 29 mmol/L (21-32) Anion Gap 4 (6-14) Blood Urea Nitrogen 18 mg/dL (8-26) Creatinine 0.6 mg/dL (0.7-1.3) Estimated GFR (Cockcroft-Gault) 132.8 BUN/Creatinine Ratio 30 (6-20) Glucose Level 105 mg/dL (70-99) Calcium Level 8.2 mg/dL (8.5-10.1) Total Bilirubin 1.8 mg/dL (0.2-1.0) Aspartate Amino Transf (AST/SGOT) 28 U/L (15-37) Alanine Aminotransferase (ALT/SGPT) 17 U/L (16-63) Alkaline Phosphatase 97 U/L (46-116) Total Protein 5.0 g/dL (6.4-8.2) Albumin 1.1 g/dL (3.4-5.0) Albumin/Globulin Ratio 0.3 (1.0-1.7) O2 Saturation 95 % (92-99) Arterial Blood pH 7.49 (7.35-7.45) Arterial Blood pCO2 at Patient Temp 32 mmHg (35-46) Arterial Blood pO2 at Patient Temp 77 mmHg (65-108) Arterial Blood HCO3 24 mmol/L (21-28) Arterial Blood Base Excess 1 mmol/L (-3-3) FiO2 30 Review of Systems Review of Systems Resting comfortably, does not appear to be in distress. No aggravation noted. No vomiting. Assessment and Plan Assessmemt and Plan Assessment: s/p R colectomy Crohn's dz s/p R part colectomy Abd pain Pelvic abscess Respir failure Hypotension Leukocytosis Thrombocytopenia Afib with RVR CHF Hypokalemia Coagulopathy Plan: 1. Respiratory failure patient is vented. Pulm following (ventilator setting AC/16/500/30% PEEP 5.0) 2. Leukocytosis: reactive, c/w infection. Decreasing. Will monitor for changes. Cont abx per ID recommendation. 3. Cont to monitor for hypokalemia and replete per protocol 4. Cont GI prophylaxis PPI 5. Discussed plan with nursing staff 6. Appreciate the assistance of the subspecialties in this case 7. Not ready for intubation weaning though the sedation turned off. Once pt awake will do CPAP trial 8. Will get neuro involved for unresponsive mental status despite lack of sedation 9. Cont wound care. Total time 33 minutes Problems: Comment Review of Relevant I have reviewed the following items manuel (where applicable) has been applied. Labs Laboratory Tests Test 05/11/17 06:20 05/11/17 08:14 05/12/17 05:37 05/12/17 08:00 White Blood Count 16.7 x10^3/uL (4.0-11.0) 17.0 x10^3/uL (4.0-11.0) Red Blood Count 2.68 x10^6/uL (4.30-5.70) 2.84 x10^6/uL (4.30-5.70) Hemoglobin 8.7 g/dL (13.0-17.5) 9.3 g/dL (13.0-17.5) Hematocrit 27.2 % (39.0-53.0) 28.2 % (39.0-53.0) Mean Corpuscular Volume 102 fL (79-100) 99 fL (79-100) Mean Corpuscular Hemoglobin 32 pg (25-35) 33 pg (25-35) Mean Corpuscular Hemoglobin Concent 32 g/dL (31-37) 33 g/dL (31-37) Red Cell Distribution Width 17.7 % (11.5-14.5) 17.4 % (11.5-14.5) Platelet Count 191 x10^3/uL (140-400) 260 x10^3/uL (140-400) Neutrophils (%) (Auto) 85 % (31-73) 85 % (31-73) Lymphocytes (%) (Auto) 10 % (24-48) 10 % (24-48) Monocytes (%) (Auto) 4 % (0-9) 5 % (0-9) Eosinophils (%) (Auto) 1 % (0-3) 1 % (0-3) Basophils (%) (Auto) 1 % (0-3) 0 % (0-3) Neutrophils # (Auto) 14.1 x10^3uL (1.8-7.7) 14.4 x10^3uL (1.8-7.7) Lymphocytes # (Auto) 1.7 x10^3/uL (1.0-4.8) 1.6 x10^3/uL (1.0-4.8) Monocytes # (Auto) 0.7 x10^3/uL (0.0-1.1) 0.8 x10^3/uL (0.0-1.1) Eosinophils # (Auto) 0.1 x10^3/uL (0.0-0.7) 0.1 x10^3/uL (0.0-0.7) Basophils # (Auto) 0.1 x10^3/uL (0.0-0.2) 0.1 x10^3/uL (0.0-0.2) Sodium Level 143 mmol/L (136-145) 142 mmol/L (136-145) Potassium Level 3.9 mmol/L (3.5-5.1) 4.2 mmol/L (3.5-5.1) Chloride Level 109 mmol/L (98-107) 109 mmol/L (98-107) Carbon Dioxide Level 28 mmol/L (21-32) 29 mmol/L (21-32) Anion Gap 6 (6-14) 4 (6-14) Blood Urea Nitrogen 19 mg/dL (8-26) 18 mg/dL (8-26) Creatinine 0.6 mg/dL (0.7-1.3) 0.6 mg/dL (0.7-1.3) Estimated GFR (Cockcroft-Gault) 132.8 132.8 BUN/Creatinine Ratio 32 (6-20) 30 (6-20) Glucose Level 123 mg/dL (70-99) 105 mg/dL (70-99) Calcium Level 8.0 mg/dL (8.5-10.1) 8.2 mg/dL (8.5-10.1) Phosphorus Level 3.9 mg/dL (2.6-4.7) Magnesium Level 2.1 mg/dL (1.8-2.4) Total Bilirubin 1.6 mg/dL (0.2-1.0) 1.8 mg/dL (0.2-1.0) Aspartate Amino Transf (AST/SGOT) 27 U/L (15-37) 28 U/L (15-37) Alanine Aminotransferase (ALT/SGPT) 17 U/L (16-63) 17 U/L (16-63) Alkaline Phosphatase 94 U/L (46-116) 97 U/L (46-116) Total Protein 4.7 g/dL (6.4-8.2) 5.0 g/dL (6.4-8.2) Albumin 1.1 g/dL (3.4-5.0) 1.1 g/dL (3.4-5.0) Albumin/Globulin Ratio 0.3 (1.0-1.7) 0.3 (1.0-1.7) O2 Saturation 94 % (92-99) 95 % (92-99) Arterial Blood pH 7.47 (7.35-7.45) 7.49 (7.35-7.45) Arterial Blood pCO2 at Patient Temp 37 mmHg (35-46) 32 mmHg (35-46) Arterial Blood pO2 at Patient Temp 74 mmHg (65-108) 77 mmHg (65-108) Arterial Blood HCO3 27 mmol/L (21-28) 24 mmol/L (21-28) Arterial Blood Base Excess 3 mmol/L (-3-3) 1 mmol/L (-3-3) FiO2 30 30 Laboratory Tests Test 05/12/17 05:37 05/12/17 08:00 White Blood Count 17.0 x10^3/uL (4.0-11.0) Red Blood Count 2.84 x10^6/uL (4.30-5.70) Hemoglobin 9.3 g/dL (13.0-17.5) Hematocrit 28.2 % (39.0-53.0) Mean Corpuscular Volume 99 fL (79-100) Mean Corpuscular Hemoglobin 33 pg (25-35) Mean Corpuscular Hemoglobin Concent 33 g/dL (31-37) Red Cell Distribution Width 17.4 % (11.5-14.5) Platelet Count 260 x10^3/uL (140-400) Neutrophils (%) (Auto) 85 % (31-73) Lymphocytes (%) (Auto) 10 % (24-48) Monocytes (%) (Auto) 5 % (0-9) Eosinophils (%) (Auto) 1 % (0-3) Basophils (%) (Auto) 0 % (0-3) Neutrophils # (Auto) 14.4 x10^3uL (1.8-7.7) Lymphocytes # (Auto) 1.6 x10^3/uL (1.0-4.8) Monocytes # (Auto) 0.8 x10^3/uL (0.0-1.1) Eosinophils # (Auto) 0.1 x10^3/uL (0.0-0.7) Basophils # (Auto) 0.1 x10^3/uL (0.0-0.2) Sodium Level 142 mmol/L (136-145) Potassium Level 4.2 mmol/L (3.5-5.1) Chloride Level 109 mmol/L (98-107) Carbon Dioxide Level 29 mmol/L (21-32) Anion Gap 4 (6-14) Blood Urea Nitrogen 18 mg/dL (8-26) Creatinine 0.6 mg/dL (0.7-1.3) Estimated GFR (Cockcroft-Gault) 132.8 BUN/Creatinine Ratio 30 (6-20) Glucose Level 105 mg/dL (70-99) Calcium Level 8.2 mg/dL (8.5-10.1) Total Bilirubin 1.8 mg/dL (0.2-1.0) Aspartate Amino Transf (AST/SGOT) 28 U/L (15-37) Alanine Aminotransferase (ALT/SGPT) 17 U/L (16-63) Alkaline Phosphatase 97 U/L (46-116) Total Protein 5.0 g/dL (6.4-8.2) Albumin 1.1 g/dL (3.4-5.0) Albumin/Globulin Ratio 0.3 (1.0-1.7) O2 Saturation 95 % (92-99) Arterial Blood pH 7.49 (7.35-7.45) Arterial Blood pCO2 at Patient Temp 32 mmHg (35-46) Arterial Blood pO2 at Patient Temp 77 mmHg (65-108) Arterial Blood HCO3 24 mmol/L (21-28) Arterial Blood Base Excess 1 mmol/L (-3-3) FiO2 30 Microbiology 05/06/17 Blood Culture - Final, Complete NO GROWTH AFTER 5 DAYS 05/05/17 Anaerobic/Aerobic Culture - Final, Complete 05/05/17 Anaerobic Culture Result 1 (ENOCH) - Final, Complete 05/05/17 Aerobic Culture - Final, Complete 05/05/17 Aerobic Culture Result 1 (ENOCH) - Final, Complete 05/05/17 Aerobic Culture Result 2 (ENOCH) - Final, Complete 05/05/17 Aerobic Culture Result 3 (ENOCH) - Final, Complete 05/05/17 Antimicrobic Susceptibility - Final, Complete Medications Current Medications Ondansetron HCl (Zofran) 4 mg PRN Q6HRS PRN IV NAUSEA/VOMITING; Start 04/29/17 at 07:00; Stop 04/29/17 at 17:32; Status DC Fentanyl Citrate (Fentanyl 2ml Vial) 25 mcg PRN Q5MIN PRN IV MILD PAIN; Start 04/29/17 at 07:00; Stop 04/30/17 at 06:59; Status DC Fentanyl Citrate (Fentanyl 2ml Vial) 50 mcg PRN Q5MIN PRN IV MODERATE PAIN Last administered on 04/29/17 16:59; Start 04/29/17 at 07:00; Stop 04/30/17 at 06:59; Status DC Morphine Sulfate 1 mg PRN Q10MIN PRN IV SEVERE PAIN Last administered on 16:41; Start 04/29/17 at 07:00; Stop 04/30/17 at 06:59; Status DC Ringer's Solution 1,000 ml @ 30 mls/hr Q24H IV Last administered on 04/29/17 10:42; Start 04/29/17 at 07:00; Stop 04/29/17 at 18:59; Status DC Lidocaine HCl 2 ml PRN 1X PRN ID PRIOR TO IV START; Start 04/29/17 at 07:00; Stop 04/30/17 at 06:59; Status DC Hydromorphone HCl (Dilaudid) 0.5 mg PRN Q10MIN PRN IV SEV PAIN, Second choice; Start 04/29/17 at 07:00; Stop 04/30/17 at 06:59; Status DC Prochlorperazine Edisylate (Compazine) 5 mg PACU PRN PRN IV NAUSEA, MRX1; Start 04/29/17 at 07:00; Stop 04/30/17 at 06:59; Status DC Cefoxitin Sodium 1 gm/Sodium Chloride 50 ml @ 100 mls/hr 1X ONCE IV Last administered on 04/29/17t 12:00; Start 04/29/17 at 06:00; Stop 04/29/17 at 06:29 ; Status DC Dexamethasone Sodium Phosphate (Decadron) 20 mg STK-MED ONCE .ROUTE ; Start at 10:47; Stop 04/29/17 at 10:48; Status DC Ondansetron HCl (Zofran) 4 mg STK-MED ONCE .ROUTE ; Start 04/29/17 at 10:47; Stop 04/29/17 at 10:48; Status DC Propofol 20 ml @ As Directed STK-MED ONCE IV ; Start 04/29/17 at 10:47; Stop at 10:48; Status DC Lidocaine HCl (Lidocaine Pf 2% Vial) 5 ml STK-MED ONCE .ROUTE ; Start 04/29/17 at 10:47; Stop 04/29/17 at 10:48; Status DC Desflurane (Suprane) 60 ml STK-MED ONCE IH ; Start 04/29/17 at 10:47; Stop 04/29 at 10:48; Status DC Fentanyl Citrate (Fentanyl 2ml Vial) 100 mcg STK-MED ONCE .ROUTE ; Start at 10:47; Stop 04/29/17 at 10:48; Status DC Rocuronium [place] (Zemuron) 50 mg STK-MED ONCE .ROUTE ; Start 04/29/17 at 10:47 ; Stop 04/29/17 at 10:48; Status DC Phenylephrine HCl 1 mg STK-MED ONCE IV ; Start 04/29/17 at 11:52; Stop 04/29/17 at 11:53; Status DC Hydrocortisone Sodium Succinate (Solu-CORTEF) 100 mg STK-MED ONCE .ROUTE ; Start 04/29/17 at 12:04; Stop 04/29/17 at 12:05; Status DC Fentanyl Citrate (Fentanyl 2ml Vial) 100 mcg STK-MED ONCE .ROUTE ; Start at 12:21; Stop 04/29/17 at 12:22; Status DC Rocuronium [place] (Zemuron) 50 mg STK-MED ONCE .ROUTE ; Start 04/29/17 at 12:53 ; Stop 04/29/17 at 12:54; Status DC Labetalol HCl (Normodyne) 20 mg STK-MED ONCE .ROUTE ; Start 04/29/17 at 12:53; Stop 04/29/17 at 12:54; Status DC Fentanyl Citrate (Fentanyl 2ml Vial) 100 mcg STK-MED ONCE .ROUTE ; Start at 12:55; Stop 04/29/17 at 12:56; Status DC Esmolol HCl (Brevibloc) 100 mg STK-MED ONCE IV ; Start 04/29/17 at 12:59; Stop 04/29/17 at 13:00; Status DC Morphine Sulfate 10 mg STK-MED ONCE .ROUTE ; Start 04/29/17 at 13:03; Stop 04/29 at 13:04; Status DC Rocuronium [place] (Zemuron) 100 mg STK-MED ONCE .ROUTE ; Start 04/29/17 at 14: 10; Stop 04/29/17 at 14:11; Status DC Fentanyl Citrate (Fentanyl 2ml Vial) 100 mcg STK-MED ONCE .ROUTE ; Start at 15:08; Stop 04/29/17 at 15:09; Status DC Glycopyrrolate (Robinul) 1 mg STK-MED ONCE .ROUTE ; Start 04/29/17 at 15:29; Stop 04/29/17 at 15:30; Status DC Neostigmine Methylsulfate 5 mg STK-MED ONCE .ROUTE ; Start 04/29/17 at 15:29; Stop 04/29/17 at 15:30; Status DC Esmolol HCl (Brevibloc) 100 mg STK-MED ONCE IV ; Start 04/29/17 at 16:05; Stop 04/29/17 at 16:06; Status DC Diphenhydramine HCl (Benadryl) 25 mg PRN Q6HRS PRN IV ITCHING Last administered on 05/04/17t 20:36; Start 04/29/17 at 16:30 Enoxaparin Sodium (Lovenox 40mg Syringe) 40 mg Q24H SQ Last administered on 05/10 06:27; Start 04/30/17 at 06:00; Stop 05/10/17 at 20:48; Status DC Sodium Chloride (Normal Saline Flush) 3 ml QSHIFT PRN IV AFTER MEDS AND BLOOD DRAWS; Start 04/29/17 at 16:30 Potassium Chloride/Sodium Chloride 1,000 ml @ 100 mls/hr Q10H IV Last administered on 05/01/17 00:17; Start 04/29/17 at 16:26; Stop 05/01/17 at 18:31 ; Status DC Hydromorphone HCl 30 ml @ 0 mls/hr CONT PRN PRN IV PROTOCOL Last administered on 04/30/17 18:01; Start 04/29/17 at 16:30; Stop 05/03/17 at 09:45; Status DC Ondansetron HCl (Zofran) 4 mg PRN Q6HRS PRN IV NAUESA, 1ST CHOICE; Start at 16:30; Stop 05/02/17 at 12:27; Status DC Throat Lozenges (Chloraseptic) 1 spray PRN Q2HR PRN PO SORE THROAT; Start 04/29 at 16:45; Stop 05/05/17 at 11:28; Status DC Throat Lozenges (Chloraseptic) 1 spray PRN Q2HR PRN PO SORE THROAT; Start 04/29 at 16:45; Stop 04/29/17 at 17:32; Status DC Digoxin (Lanoxin) 125 mcg DAILY PO Last administered on 05/01/17 09:32; Start 04/30/17 at 09:00; Stop 05/01/17 at 14:05; Status DC Prednisone (Prednisone) 10 mg DAILY PO ; Start 04/30/17 at 09:00; Stop 04/30/17 at 16:33; Status DC Methylprednisolone Sodium Succinate (SOLU-Medrol 40MG VIAL) 15 mg DAILY IV Last administered on 05/02/17 07:59; Start 04/30/17 at 11:00; Stop 05/02/17 at 14:00; Status DC Pantoprazole Sodium (Protonix Vial) 40 mg DAILYAC IVP Last administered on 05/02 07:57; Start 04/30/17 at 17:00; Stop 05/02/17 at 13:45; Status DC Digoxin (Lanoxin) 250 mcg DAILY PO Last administered on 05/05/17 09:29; Start 05/02/17 at 09:00; Stop 05/06/17 at 14:54; Status DC Sodium Chloride 1,000 ml @ 100 mls/hr Q10H IV Last administered on 05/04/17 03:25; Start 05/01/17 at 18:30; Stop 05/04/17 at 15:20; Status DC Nicotine (Nicoderm Cq 14mg) 1 patch PRN DAILY PRN TD SMOKING CESSATION Last administered on 05/04/17 11:15; Start 05/02/17 at 06:45 Ondansetron HCl (Zofran) 4 mg PRN Q6HRS PRN IV NAUSEA/VOMITING Last administered on 05/05/17 09:36; Start 05/02/17 at 12:30 Acetaminophen/ Hydrocodone Bitart (Lortab 5/325) 1 tab PRN Q4HRS PRN PO MILD PAIN Last administered on 05/04/17 17:13; Start 05/02/17 at 12:30 Fentanyl Citrate (Fentanyl 2ml Vial) 50 mcg PRN Q2HR PRN IV MODERATE PAIN Last administered on 05/06/17 08:14; Start 05/02/17 at 12:30; Stop 05/06/17 at 10:55 ; Status DC Famotidine (Pepcid) 20 mg DAILY IVP Last administered on 05/03/17 09:01; Start 05/03/17 at 09:00; Stop 05/03/17 at 09:45; Status DC Hydromorphone HCl (Dilaudid) 1 mg PRN Q4HRS PRN IV SEVERE PAIN Last administered on 05/04/17 11:13; Start 05/03/17 at 09:45; Stop 05/06/17 at 10:55 ; Status DC Morphine Sulfate (Ms Contin) 15 mg BID PO Last administered on 05/04/17 21:35 ; Start 05/03/17 at 09:45; Stop 05/08/17 at 09:52; Status DC Metoprolol Tartrate (Lopressor) 12.5 mg Q6HRS PO Last administered on 11:14; Start 05/03/17 at 19:00; Stop 05/04/17 at 12:51; Status DC Info 1 each PRN DAILY PRN MC SEE COMMENTS Last administered on 05/11/17 11:19; Start 05/04/17 at 11:15 Metoprolol Tartrate (Lopressor) 25 mg BID PO ; Start 05/04/17 at 21:00; Stop at 14:54; Status DC Magnesium Sulfate/ Dextrose 50 ml @ 25 mls/hr 1X ONCE IV Last administered on 05/04/17 15:46; Start 05/04/17 at 16:00; Stop 05/04/17 at 17:59; Status DC Amino Acids/ Glycerin/ Electrolytes 1,000 ml @ 80 mls/hr [id number] IV Last administered on 05/05/17 05:32; Start 05/04/17 at 16:00; Stop 05/05/17 at 21:59 ; Status DC Amino Acids/ Glycerin/ Electrolytes 1,000 ml @ 80 mls/hr [id number] IV ; Start at 15:30; Status UNV Sodium Chloride 1,000 ml @ 100 mls/hr Q10H IV Last administered on 05/05/17 16:32; Start 05/04/17 at 16:00; Stop 05/06/17 at 01:03; Status DC Albumin Human 500 ml @ 100 mls/hr 1X ONCE IV Last administered on 05/05/17 00:05; Start 05/04/17 at 22:00; Stop 05/05/17 at 02:59; Status DC Lidocaine HCl (Glydo (Lidocaine) Jelly) 1 emelia 1X ONCE MM Last administered on 05/05/17 08:30; Start 05/05/17 at 08:30; Stop 05/05/17 at 08:35; Status DC Throat Lozenges (Chloraseptic) 1 spray PRN Q2HR PRN PO SORE THROAT; Start 05/05 at 08:30 Non-Formulary Medication 1 each DAILY PO ; Start 05/06/17 at 09:00; Stop at 09:00; Status DC Non-Formulary Medication 1 tab QHS PO ; Start 05/05/17 at 21:00; Stop 05/05/17 at 21:00; Status DC Benzocaine (Hurricaine One) 1 spray 1X ONCE MM Last administered on 05/05/17 10:30; Start 05/05/17 at 10:30; Stop 05/05/17 at 10:31; Status DC Throat Lozenges (Cepacol Sore Throat Lozenge) 1 west PRN Q2HRS PRN PO SORE THROAT; Start 05/05/17 at 11:00 Albumin Human 500 ml @ 100 mls/hr 1X ONCE IV Last administered on 05/05/17 13:24; Start 05/05/17 at 11:15; Stop 05/05/17 at 16:14; Status DC Sodium Chloride 1,000 ml @ 1,000 mls/hr 1X ONCE IV ; Start 05/05/17 at 11:30; Stop 05/05/17 at 12:29; Status DC Famotidine (Pepcid) 20 mg BID IVP Last administered on 05/12/17 08:16; Start at 12:00 Amiodarone HCl 900 mg/Dextrose 518 ml @ 0 mls/hr CONT PRN IV SEE I/O RECORD Last administered on 05/05/17 13:17; Start 05/05/17 at 12:15; Stop 05/05/17 at 13:17; Status DC Amiodarone HCl 150 mg/Dextrose 103 ml @ 618 mls/hr 1X ONCE IV Last administered on 05/05/17 12:30; Start 05/05/17 at 12:30; Stop 05/05/17 at 12:39 ; Status DC Potassium Phosphate 13.6 mmol/Sodium Chloride 104.5333 ml @ 52.267 m... Q2H IV ; Start 05/05/17 at 14:30; Stop 05/05/17 at 16:29; Status DC Sodium Chloride 90 meq/Potassium Chloride 50 meq/ Potassium Phosphate 17 mmol/ Magnesium Sulfate 10 meq/Calcium Gluconate 5 meq/ Multivitamins 10 ml/Chromium/ Copper/Manganese/ Seleni/Zn 1 ml/ Total Parenteral Nutrition/Amino Acids/ Dextrose/ Fat Emulsion Intravenous 1,512 ml @ 63 mls/hr TPN CONT IV Last administered on 6/27/17at 21:46; Start 05/05/17 at 22:00; Stop 05/06/17 at 21:59 ; Status DC Iohexol (Omnipaque 300 Mg/ml) 60 ml 1X ONCE IV Last administered on 05/05/17 14:50; Start 05/05/17 at 14:45; Stop 05/05/17 at 14:46; Status DC Info (Do NOT chart on this entry -- for MONITORING) 1 each PRN DAILY PRN MC SEE COMMENTS; Start 05/05/17 at 14:45; Stop 05/07/17 at 14:45; Status DC Sodium Chloride 1,000 ml @ 2,000 mls/hr 1X ONCE IV Last administered on 16:33; Start 05/05/17 at 16:00; Stop 05/05/17 at 16:29; Status DC Vancomycin HCl (Vanco Per Pharmacy) 1 each PRN DAILY PRN MC SEE COMMENTS Last administered on 05/08/17 09:08; Start 05/05/17 at 16:00; Stop 05/09/17 at 14:01 ; Status DC Piperacillin Sod/ Tazobactam Sod (Zosyn Per Pharmacy) 1 each PRN DAILY PRN MC SEE COMMENTS; Start 05/05/17 at 16:00; Stop 05/10/17 at 07:20; Status DC Piperacillin Sod/ Tazobactam Sod 4.5 gm/Sodium Chloride 100 ml @ 200 mls/hr Q6HRS IV Last administered on 05/09/17 13:02; Start 05/05/17 at 17:00; Stop 05/09/17 at 13:58; Status DC Vancomycin HCl 1.75 gm/Sodium Chloride 500 ml @ 250 mls/hr 1X ONCE IV Last administered on 05/05/17 16:30; Start 05/05/17 at 17:00; Stop 05/05/17 at 18:59 ; Status DC Potassium Chloride 50 ml @ 50 mls/hr Q1H IV Last administered on 05/05/17 16: 59; Start 05/05/17 at 16:30; Stop 05/05/17 at 19:29; Status DC Vancomycin HCl 1.25 gm/Sodium Chloride 250 ml @ 167 mls/hr Q12H IV Last administered on 05/06/17 18:57; Start 05/06/17 at 06:00; Stop 05/07/17 at 07:47 ; Status DC Vancomycin HCl 1 each 1X ONCE MC Last administered on 05/07/17 05:30; Start 05/07/17 at 05:30; Stop 05/07/17 at 05:31; Status DC Norepinephrine Bitartrate 250 ml @ As Directed STK-MED ONCE IV ; Start at 16:22; Stop 05/05/17 at 16:23; Status DC Norepinephrine Bitartrate 250 ml @ 0 mls/hr CONT PRN IV SEE I/O RECORD Last administered on 05/10/17 17:53; Start 05/05/17 at 16:45 Vasopressin 40 unit/Dextrose 102 ml @ 6 mls/hr CONT PRN IV SEE I/O RECORD Last administered on 05/09/17 19:25; Start 05/05/17 at 17:00 Phenylephrine HCl 20 mg/Sodium Chloride 252 ml @ 0 mls/hr CONT PRN IV SEE I/O RECORD Last administered on 05/06/17 06:22; Start 05/05/17 at 17:00; Stop 05/06 at 08:00; Status DC Propofol 0 ml @ As Directed STK-MED ONCE IV ; Start 05/05/17 at 17:21; Stop at 17:22; Status DC Lidocaine HCl (Lidocaine Pf 2% Vial) 5 ml STK-MED ONCE .ROUTE ; Start 05/05/17 at 17:21; Stop 05/05/17 at 17:22; Status DC Fentanyl Citrate (Fentanyl 2ml Vial) 100 mcg STK-MED ONCE .ROUTE ; Start at 17:22; Stop 05/05/17 at 17:23; Status DC Succinylcholine Chloride (Anectine) 200 mg STK-MED ONCE .ROUTE ; Start 05/05/17 at 17:22; Stop 05/05/17 at 17:23; Status DC Rocuronium [place] (Zemuron) 50 mg STK-MED ONCE .ROUTE ; Start 05/05/17 at 17:22 ; Stop 05/05/17 at 17:23; Status DC Etomidate (Amidate) 20 mg STK-MED ONCE IV ; Start 05/05/17 at 17:25; Stop at 17:26; Status DC Desflurane (Suprane) 60 ml STK-MED ONCE IH ; Start 05/05/17 at 18:02; Stop 05/05 at 18:03; Status DC Rocuronium [place] (Zemuron) 50 mg STK-MED ONCE .ROUTE ; Start 05/05/17 at 18:52 ; Stop 05/05/17 at 18:53; Status DC Phenylephrine HCl (Bhargav-Synephrine Inj) 10 mg STK-MED ONCE .ROUTE ; Start at 19:53; Stop 05/05/17 at 19:54; Status DC Propofol 100 ml @ 0 mls/hr CONT PRN IV SEE I/O RECORD Last administered on 05/05 21:47; Start 05/05/17 at 21:30 Midazolam HCl 100 ml @ 0 mls/hr CONT PRN IV SEE I/O RECORD Last administered on 05/08/17 00:43; Start 05/05/17 at 22:00 Sodium Bicarbonate 150 meq/Dextrose 1,150 ml @ 100 mls/hr [id number] IV Last administered on 05/07/17 03:44; Start 05/06/17 at 02:00; Stop 05/07/17 at 10:32 ; Status DC Micafungin Sodium 100 mg/Dextrose 100 ml @ 100 mls/hr Q24H IV Last administered on 05/09/17 08:00; Start 05/06/17 at 08:00; Stop 05/09/17 at 13:58; Status DC Phenylephrine HCl 80 mg/Sodium Chloride 258 ml @ 0 mls/hr CONT PRN IV SEE I/O RECORD Last administered on 05/06/17 08:16; Start 05/06/17 at 08:00 Potassium Phosphate 10 mmol/ Sodium Chloride 103.3333 ml @ 51.667 m... Q2H IV Last administered on 05/06/17 16:11; Start 05/06/17 at 08:30; Stop 05/06/17 at 12:29; Status DC Fentanyl Citrate 30 ml @ 0 mls/hr CONT PRN PRN IV PROTOCOL Last administered on 05/10/17 10:47; Start 05/06/17 at 10:45 Naloxone HCl (Narcan) 0.4 mg PRN Q2MIN PRN IV SEE INSTRUCTIONS; Start 05/06/17 at 10:45 Sodium Chloride 1,000 ml @ 25 mls/hr Q24H IV Last administered on 05/10/17 10: 17; Start 05/06/17 at 11:00 Norepinephrine Bitartrate 250 ml @ 0 mls/hr CONT PRN IV SEE I/O RECORD; Start 05/06/17 at 10:45; Status Cancel Sodium Chloride 90 meq/Sodium Acetate 40 meq/ Potassium Chloride 50 meq/ Potassium Phosphate 25 mmol/ Magnesium Sulfate 15 meq/Calcium Gluconate 5 meq/ Multivitamins 10 ml/Chromium/ Copper/Manganese/ Seleni/Zn 1 ml/ Total Parenteral Nutrition/Amino Acids/Dextrose/ Fat Emulsion Intravenous 1,512 ml @ 63 mls/hr TPN CONT IV Last administered on 05/06/17 21:38; Start 05/06/17 at 22:00; Stop 05/07/17 at 21:59; Status DC Famotidine (Pepcid) 20 mg BID IVP ; Start 05/06/17 at 21:00; Status UNV Digoxin (Lanoxin) 250 mcg DAILY PO ; Start 05/06/17 at 16:00; Stop 05/08/17 at 10:59; Status DC Vancomycin HCl 1 gm/Sodium Chloride 250 ml @ 250 mls/hr Q8H IV Last administered on 05/09/17 12:59; Start 05/07/17 at 08:00; Stop 05/09/17 at 13:58; Status DC Vancomycin HCl 1 each 1X ONCE MC ; Start 05/08/17 at 07:30; Stop 05/08/17 at 07 :31; Status DC Potassium Phosphate 15 mmol/ Sodium Chloride 255 ml @ 127.5 mls/ hr 1X ONCE IV Last administered on 05/07/17 10:46; Start 05/07/17 at 10:30; Stop at 12:29; Status DC Sodium Chloride 1,000 ml @ 75 mls/hr [id number] IV Last administered on 05/12/17 03:29; Start 05/07/17 at 12:00 Sodium Chloride 90 meq/Sodium Acetate 40 meq/ Potassium Chloride 50 meq/ Potassium Phosphate 25 mmol/ Magnesium Sulfate 15 meq/Calcium Gluconate 5 meq/ Multivitamins 10 ml/Chromium/ Copper/Manganese/ Seleni/Zn 1 ml/ Total Parenteral Nutrition/Amino Acids/Dextrose/ Fat Emulsion Intravenous 1,512 ml @ 63 mls/hr TPN CONT IV Last administered on 05/07/17 21:06; Start 05/07/17 at 22:00; Stop 05/08/17 at 21:59; Status DC Albumin Human 100 ml @ 100 mls/hr 1X ONCE IV Last administered on 05/07/17 21:06; Start 05/07/17 at 20:45; Stop 05/07/17 at 21:44; Status DC Potassium Phosphate 15 mmol/ Sodium Chloride 255 ml @ 85 mls/hr Q2H IV Last administered on 05/07/17 21:55; Start 05/07/17 at 22:00; Stop 05/07/17 at 23:59 ; Status DC Digoxin (Lanoxin) 250 mcg DAILY IV Last administered on 05/12/17 08:17; Start 05/08/17 at 11:15 Sodium Chloride 90 meq/Sodium Acetate 40 meq/ Potassium Chloride 50 meq/ Potassium Phosphate 20 mmol/ Magnesium Sulfate 15 meq/Calcium Gluconate 5 meq/ Multivitamins 10 ml/Chromium/ Copper/Manganese/ Seleni/Zn 1 ml/ Total Parenteral Nutrition/Amino Acids/Dextrose/ Fat Emulsion Intravenous 1,512 ml @ 63 mls/hr TPN CONT IV Last administered on 05/08/17 21:39; Start 05/08/17 at 22:00; Stop 05/09/17 at 21:59; Status DC Chlorhexidine Gluconate (Peridex) 15 ml BID SWSP Last administered on 05/12/17 08:17; Start 05/08/17 at 21:00 Multi-Ingred Cream/Lotion/Oil/ Oint (Artificial Tears Eye Oint) 1 emelia PRN Q12HR PRN OU DRY EYE Last administered on 05/08/17 16:31; Start 05/08/17 at 14:45 Sodium Chloride 90 meq/Sodium Acetate 40 meq/ Potassium Acetate 70 meq/ Potassium Phosphate 20 mmol/ Magnesium Sulfate 15 meq/Calcium Gluconate 5 meq/ Multivitamins 10 ml/Chromium/ Copper/Manganese/ Seleni/Zn 1 ml/ Total Parenteral Nutrition/Amino Acids/Dextrose/ Fat Emulsion Intravenous 1,512 ml @ 63 mls/hr TPN CONT IV Last administered on 05/09/17 22:13; Start 05/09/17 at 22 :00; Stop 05/10/17 at 21:59; Status DC Ceftriaxone Sodium 1 gm/ Sodium Chloride 50 ml @ 100 mls/hr Q24H IV Last administered on 05/11/17 15:11; Start 05/09/17 at 14:00; Stop 05/12/17 at 08:25; Status DC Sodium Chloride 60 meq/Sodium Acetate 50 meq/ Potassium Acetate 90 meq/ Potassium Phosphate 20 mmol/ Magnesium Sulfate 15 meq/Calcium Gluconate 5 meq/ Multivitamins 10 ml/Chromium/ Copper/Manganese/ Seleni/Zn 1 ml/ Total Parenteral Nutrition/Amino Acids/Dextrose/ Fat Emulsion Intravenous 1,512 ml @ 63 mls/hr TPN CONT IV Last administered on 05/10/17 21:24; Start 05/10/17 at 22 :00; Stop 05/11/17 at 21:59; Status DC Enoxaparin Sodium (Lovenox 40mg Syringe) 40 mg Q24H SQ Last administered on 05/11 20:42; Start 05/10/17 at 21:00 Sodium Chloride 40 meq/Sodium Acetate 50 meq/ Potassium Acetate 90 meq/ Potassium Phosphate 20 mmol/ Magnesium Sulfate 15 meq/Calcium Gluconate 5 meq/ Multivitamins 10 ml/Chromium/ Copper/Manganese/ Seleni/Zn 1 ml/ Total Parenteral Nutrition/Amino Acids/Dextrose/ Fat Emulsion Intravenous 1,512 ml @ 63 mls/hr TPN CONT IV Last administered on 05/11/17 20:42; Start 05/11/17 at 22 :00; Stop 05/12/17 at 21:59 Micafungin Sodium 100 mg/Dextrose 100 ml @ 100 mls/hr Q24H IV Last administered on 05/11/17 13:52; Start 05/11/17 at 12:00 Piperacillin Sod/ Tazobactam Sod 3.375 gm/Sodium Chloride 50 ml @ 100 mls/hr Q6HRS IV Last administered on 05/12/17 10:22; Start 05/12/17 at 09:00 Active Scripts Active Reported Melatonin 3 Mg Tablet 1 Tab PO QHS Move Free [facility] Tablet (Glucosam/Chond/Hyalu/Cf Borate) 1 Each Tablet 1 Each PO DAILY Digoxin 125 Mcg Tablet 1 Tab PO DAILY Prednisone 10 Mg Tablet 10 Mg PO DAILY Vitals/I & O Vital Sign - Last 24 Hours 705/11/17 05/11/17 05/11/17 12:00 12:00 12:00 13:00 Temp 99.0 99.0 Pulse 101 101 95 Resp 24 21 B/P (MAP) 108/68 (81) 114/74 (87) Pulse Ox 100 100 O2 Delivery Ventilator Mechanical Ventilator Ventilator 05/11/17 05/11/17 05/11/17 05/11/17 13:01 14:00 15:00 15:21 Pulse 101 105 Resp 23 25 B/P (MAP) 112/64 (80) 107/65 (79) Pulse Ox 99 100 100 99 O2 Delivery Ventilator Ventilator Ventilator Ventilator 05/11/17 05/11/17 05/11/17 05/11/17 16:00 16:00 16:00 17:00 Temp 98.4 98.4 Pulse 98 98 Resp 25 B/P (MAP) 111/64 (80) Pulse Ox 99 100 O2 Delivery Mechanical Ventilator Ventilator Ventilator 05/11/17 05/11/17 05/11/17 05/11/17 17:00 18:00 19:00 19:23 Pulse 99 87 99 Resp 25 21 26 B/P (MAP) 103/66 (78) 100/70 (80) 94/63 (73) Pulse Ox 100 99 100 100 O2 Delivery Ventilator Ventilator Ventilator Ventilator 05/11/17 05/11/17 05/11/17 05/11/17 19:39 19:54 20:00 20:57 Temp 99.4 99.4 Pulse 99 105 Resp 23 B/P (MAP) 103/63 (76) Pulse Ox 100 100 O2 Delivery Mechanical Ventilator Ventilator Ventilator 05/11/17 05/11/17 05/11/17 05/11/17 21:00 22:00 23:00 23:05 Pulse 104 106 107 Resp 22 28 22 B/P (MAP) 99/61 (74) 109/70 (83) 107/70 (82) Pulse Ox 99 100 100 100 O2 Delivery Ventilator Ventilator Ventilator Ventilator 05/11/17 05/11/17 05/12/17 05/12/17 23:37 23:39 00:00 01:00 Temp 99.8 99.8 Pulse 102 109 109 Resp 26 20 B/P (MAP) 106/72 (83) 114/76 (89) Pulse Ox 100 99 O2 Delivery Mechanical Ventilator Ventilator Ventilator 05/12/17 05/12/17 05/12/17 05/12/17 01:15 02:00 03:00 03:20 Pulse 98 97 Resp 26 26 B/P (MAP) 146/79 (101) 111/75 (87) Pulse Ox 99 99 99 99 O2 Delivery Ventilator Ventilator Ventilator Ventilator 05/12/17 05/12/17 05/12/17 05/12/17 04:00 04:00 04:00 05:00 Temp 99.1 99.1 Pulse 92 92 Resp 28 B/P (MAP) 112/78 (89) Pulse Ox 99 99 O2 Delivery Mechanical Ventilator Ventilator Ventilator 05/12/17 05/12/17 05/12/17 05/12/17 05:00 06:00 07:34 08:17 Pulse 97 88 94 Resp 26 24 B/P (MAP) 123/77 (92) 124/85 (98) Pulse Ox 100 100 99 O2 Delivery Ventilator Ventilator Ventilator 05/12/17 05/12/17 09:02 11:19 Pulse Ox 99 98 O2 Delivery Ventilator Ventilator Intake and Output 05/11/17 05/11/17 05/12/17 15:00 23:00 07:00 Intake Total 100 ml 1559 ml 1680 ml Output Total 975 ml 1027 ml 1160 ml Balance -875 ml 532 ml 520 ml EVELIO BLANTON III DO May 12, 2017 11:38
[2017-05-12] MEDS: TPN PER PHARMACY MC PRN (12:21)
[2017-05-12] MEDS: MICAFUNGIN 100 MG in IV DEXTROSE 5% 100 ML IV SCH (12:44)
--- NOTE | 2017-05-12 14:32 | PDOC2 ---
NEUROLOGY CONSULT Date of Admission Date of Admission DATE: 05/12/17 TIME: 14:26 Reason for Consult Reason for Consult: Altered mental status Referring Physician Referring Physician: Dr. Robert Source Source: Caregiver, Chart review History of Present Illness History of Present Illness The patient is a 71-year-old right-handed male originally admitted 2 weeks ago for colectomy regarding Crohn's disease. He has a history of perforated viscus. He developed sepsis syndrome, hypertension, atrial fibrillation with rapid ventricular response and went back to surgery on 05/05 were he underwent rigid proctoscopy, disimpaction, exploratory laparotomy, resection of ileo-colic anastomosis, end ileostomy, Evans's pouch. He was intubated and sedated thereafter and sedation was just lifted 4 days ago. He is gradually regaining consciousness. There is never been any seizure activity. The patient's girlfriend says that there is no history of stroke or head injury. The patient does drink at least 4 beers a day. Past Medical History Cardiovascular: AFIB, CHF, HTN Pulmonary: COPD GI: Other (Crohn's disease) Psych: Anxiety, Addictions (alcohol, occasional marijuana, cocaine many years ago) Musculoskeletal: Osteoarthritis ENT: Other (right ear hearing loss) Renal/: Other (nephrolithiasis) Past Surgical History Past Surgical History: Hernia Repair (right inguinal and umbilical), Other ( ruptured viscus 01/23, colectomy, laparotomy) Family History Family History: Cancer Social History Social History Has a significant other, smokes a pack of cigarettes per day and drinks at least 4 beers a day Current Medications Current Medications Current Medications Ondansetron HCl (Zofran) 4 mg PRN Q6HRS PRN IV NAUSEA/VOMITING; Start 04/29/17 at 07:00; Stop 04/29/17 at 17:32; Status DC Fentanyl Citrate (Fentanyl 2ml Vial) 25 mcg PRN Q5MIN PRN IV MILD PAIN; Start 04/29/17 at 07:00; Stop 04/30/17 at 06:59; Status DC Fentanyl Citrate (Fentanyl 2ml Vial) 50 mcg PRN Q5MIN PRN IV MODERATE PAIN Last administered on 04/29/17t 16:59; Start 04/29/17 at 07:00; Stop 04/30/17 at 06:59; Status DC Morphine Sulfate 1 mg PRN Q10MIN PRN IV SEVERE PAIN Last administered on 16:41; Start 04/29/17 at 07:00; Stop 04/30/17 at 06:59; Status DC Ringer's Solution 1,000 ml @ 30 mls/hr Q24H IV Last administered on 04/29/17 10:42; Start 04/29/17 at 07:00; Stop 04/29/17 at 18:59; Status DC Lidocaine HCl 2 ml PRN 1X PRN ID PRIOR TO IV START; Start 04/29/17 at 07:00; Stop 04/30/17 at 06:59; Status DC Hydromorphone HCl (Dilaudid) 0.5 mg PRN Q10MIN PRN IV SEV PAIN, Second choice; Start 04/29/17 at 07:00; Stop 04/30/17 at 06:59; Status DC Prochlorperazine Edisylate (Compazine) 5 mg PACU PRN PRN IV NAUSEA, MRX1; Start 04/29/17 at 07:00; Stop 04/30/17 at 06:59; Status DC Cefoxitin Sodium 1 gm/Sodium Chloride 50 ml @ 100 mls/hr 1X ONCE IV Last administered on 04/29/17 12:00; Start 04/29/17 at 06:00; Stop 04/29/17 at 06:29 ; Status DC Dexamethasone Sodium Phosphate (Decadron) 20 mg STK-MED ONCE .ROUTE ; Start at 10:47; Stop 04/29/17 at 10:48; Status DC Ondansetron HCl (Zofran) 4 mg STK-MED ONCE .ROUTE ; Start 04/29/17 at 10:47; Stop 04/29/17 at 10:48; Status DC Propofol 20 ml @ As Directed STK-MED ONCE IV ; Start 04/29/17 at 10:47; Stop at 10:48; Status DC Lidocaine HCl (Lidocaine Pf 2% Vial) 5 ml STK-MED ONCE .ROUTE ; Start 04/29/17 at 10:47; Stop 04/29/17 at 10:48; Status DC Desflurane (Suprane) 60 ml STK-MED ONCE IH ; Start 04/29/17 at 10:47; Stop 04/29 at 10:48; Status DC Fentanyl Citrate (Fentanyl 2ml Vial) 100 mcg STK-MED ONCE .ROUTE ; Start at 10:47; Stop 04/29/17 at 10:48; Status DC Rocuronium Keene (Zemuron) 50 mg STK-MED ONCE .ROUTE ; Start 04/29/17 at 10:47 ; Stop 04/29/17 at 10:48; Status DC Phenylephrine HCl 1 mg STK-MED ONCE IV ; Start 04/29/17 at 11:52; Stop 04/29/17 at 11:53; Status DC Hydrocortisone Sodium Succinate (Solu-CORTEF) 100 mg STK-MED ONCE .ROUTE ; Start 04/29/17 at 12:04; Stop 04/29/17 at 12:05; Status DC Fentanyl Citrate (Fentanyl 2ml Vial) 100 mcg STK-MED ONCE .ROUTE ; Start at 12:21; Stop 04/29/17 at 12:22; Status DC Rocuronium Keene (Zemuron) 50 mg STK-MED ONCE .ROUTE ; Start 04/29/17 at 12:53 ; Stop 04/29/17 at 12:54; Status DC Labetalol HCl (Normodyne) 20 mg STK-MED ONCE .ROUTE ; Start 04/29/17 at 12:53; Stop 04/29/17 at 12:54; Status DC Fentanyl Citrate (Fentanyl 2ml Vial) 100 mcg STK-MED ONCE .ROUTE ; Start at 12:55; Stop 04/29/17 at 12:56; Status DC Esmolol HCl (Brevibloc) 100 mg STK-MED ONCE IV ; Start 04/29/17 at 12:59; Stop 04/29/17 at 13:00; Status DC Morphine Sulfate 10 mg STK-MED ONCE .ROUTE ; Start 04/29/17 at 13:03; Stop 04/29 at 13:04; Status DC Rocuronium Keene (Zemuron) 100 mg STK-MED ONCE .ROUTE ; Start 04/29/17 at 14: 10; Stop 04/29/17 at 14:11; Status DC Fentanyl Citrate (Fentanyl 2ml Vial) 100 mcg STK-MED ONCE .ROUTE ; Start at 15:08; Stop 04/29/17 at 15:09; Status DC Glycopyrrolate (Robinul) 1 mg STK-MED ONCE .ROUTE ; Start 04/29/17 at 15:29; Stop 04/29/17 at 15:30; Status DC Neostigmine Methylsulfate 5 mg STK-MED ONCE .ROUTE ; Start 04/29/17 at 15:29; Stop 04/29/17 at 15:30; Status DC Esmolol HCl (Brevibloc) 100 mg STK-MED ONCE IV ; Start 04/29/17 at 16:05; Stop 04/29/17 at 16:06; Status DC Diphenhydramine HCl (Benadryl) 25 mg PRN Q6HRS PRN IV ITCHING Last administered on 05/04/17 20:36; Start 04/29/17 at 16:30 Enoxaparin Sodium (Lovenox 40mg Syringe) 40 mg Q24H SQ Last administered on 05/10 06:27; Start 04/30/17 at 06:00; Stop 05/10/17 at 20:48; Status DC Sodium Chloride (Normal Saline Flush) 3 ml QSHIFT PRN IV AFTER MEDS AND BLOOD DRAWS; Start 04/29/17 at 16:30 Potassium Chloride/Sodium Chloride 1,000 ml @ 100 mls/hr Q10H IV Last administered on 05/01/17 00:17; Start 04/29/17 at 16:26; Stop 05/01/17 at 18:31 ; Status DC Hydromorphone HCl 30 ml @ 0 mls/hr CONT PRN PRN IV PROTOCOL Last administered on 04/30/17 18:01; Start 04/29/17 at 16:30; Stop 05/03/17 at 09:45; Status DC Ondansetron HCl (Zofran) 4 mg PRN Q6HRS PRN IV NAUESA, 1ST CHOICE; Start at 16:30; Stop 05/02/17 at 12:27; Status DC Throat Lozenges (Chloraseptic) 1 spray PRN Q2HR PRN PO SORE THROAT; Start 04/29 at 16:45; Stop 05/05/17 at 11:28; Status DC Throat Lozenges (Chloraseptic) 1 spray PRN Q2HR PRN PO SORE THROAT; Start 04/29 at 16:45; Stop 04/29/17 at 17:32; Status DC Digoxin (Lanoxin) 125 mcg DAILY PO Last administered on 05/01/17 09:32; Start 04/30/17 at 09:00; Stop 05/01/17 at 14:05; Status DC Prednisone (Prednisone) 10 mg DAILY PO ; Start 04/30/17 at 09:00; Stop 04/30/17 at 16:33; Status DC Methylprednisolone Sodium Succinate (SOLU-Medrol 40MG VIAL) 15 mg DAILY IV Last administered on 05/02/17 07:59; Start 04/30/17 at 11:00; Stop 05/02/17 at 14:00; Status DC Pantoprazole Sodium (Protonix Vial) 40 mg DAILYAC IVP Last administered on 05/02 07:57; Start 04/30/17 at 17:00; Stop 05/02/17 at 13:45; Status DC Digoxin (Lanoxin) 250 mcg DAILY PO Last administered on 05/05/17 09:29; Start 05/02/17 at 09:00; Stop 05/06/17 at 14:54; Status DC Sodium Chloride 1,000 ml @ 100 mls/hr Q10H IV Last administered on 05/04/17 03:25; Start 05/01/17 at 18:30; Stop 05/04/17 at 15:20; Status DC Nicotine (Nicoderm Cq 14mg) 1 patch PRN DAILY PRN TD SMOKING CESSATION Last administered on 05/04/17 11:15; Start 05/02/17 at 06:45 Ondansetron HCl (Zofran) 4 mg PRN Q6HRS PRN IV NAUSEA/VOMITING Last administered on 05/05/17 09:36; Start 05/02/17 at 12:30 Acetaminophen/ Hydrocodone Bitart (Lortab 5/325) 1 tab PRN Q4HRS PRN PO MILD PAIN Last administered on 05/04/17 17:13; Start 05/02/17 at 12:30 Fentanyl Citrate (Fentanyl 2ml Vial) 50 mcg PRN Q2HR PRN IV MODERATE PAIN Last administered on 05/06/17 08:14; Start 05/02/17 at 12:30; Stop 05/06/17 at 10:55 ; Status DC Famotidine (Pepcid) 20 mg DAILY IVP Last administered on 05/03/17 09:01; Start 05/03/17 at 09:00; Stop 05/03/17 at 09:45; Status DC Hydromorphone HCl (Dilaudid) 1 mg PRN Q4HRS PRN IV SEVERE PAIN Last administered on 05/04/17 11:13; Start 05/03/17 at 09:45; Stop 05/06/17 at 10:55 ; Status DC Morphine Sulfate (Ms Contin) 15 mg BID PO Last administered on 05/04/17 21:35 ; Start 05/03/17 at 09:45; Stop 05/08/17 at 09:52; Status DC Metoprolol Tartrate (Lopressor) 12.5 mg Q6HRS PO Last administered on 11:14; Start 05/03/17 at 19:00; Stop 05/04/17 at 12:51; Status DC Info 1 each PRN DAILY PRN MC SEE COMMENTS Last administered on 05/12/17 12:21; Start 05/04/17 at 11:15 Metoprolol Tartrate (Lopressor) 25 mg BID PO ; Start 05/04/17 at 21:00; Stop at 14:54; Status DC Magnesium Sulfate/ Dextrose 50 ml @ 25 mls/hr 1X ONCE IV Last administered on 05/04/17 15:46; Start 05/04/17 at 16:00; Stop 05/04/17 at 17:59; Status DC Amino Acids/ Glycerin/ Electrolytes 1,000 ml @ 80 mls/hr [id number] IV Last administered on 05/05/17 05:32; Start 05/04/17 at 16:00; Stop 05/05/17 at 21:59 ; Status DC Amino Acids/ Glycerin/ Electrolytes 1,000 ml @ 80 mls/hr [id number] IV ; Start at 15:30; Status UNV Sodium Chloride 1,000 ml @ 100 mls/hr Q10H IV Last administered on 05/05/17 16:32; Start 05/04/17 at 16:00; Stop 05/06/17 at 01:03; Status DC Albumin Human 500 ml @ 100 mls/hr 1X ONCE IV Last administered on 05/05/17 00:05; Start 05/04/17 at 22:00; Stop 05/05/17 at 02:59; Status DC Lidocaine HCl (Glydo (Lidocaine) Jelly) 1 emelia 1X ONCE MM Last administered on 05/05/17 08:30; Start 05/05/17 at 08:30; Stop 05/05/17 at 08:35; Status DC Throat Lozenges (Chloraseptic) 1 spray PRN Q2HR PRN PO SORE THROAT; Start 05/05 at 08:30 Non-Formulary Medication 1 each DAILY PO ; Start 05/06/17 at 09:00; Stop at 09:00; Status DC Non-Formulary Medication 1 tab QHS PO ; Start 05/05/17 at 21:00; Stop 05/05/17 at 21:00; Status DC Benzocaine (Hurricaine One) 1 spray 1X ONCE MM Last administered on 05/05/17 10:30; Start 05/05/17 at 10:30; Stop 05/05/17 at 10:31; Status DC Throat Lozenges (Cepacol Sore Throat Lozenge) 1 west PRN Q2HRS PRN PO SORE THROAT; Start 05/05/17 at 11:00 Albumin Human 500 ml @ 100 mls/hr 1X ONCE IV Last administered on 05/05/17 13:24; Start 05/05/17 at 11:15; Stop 05/05/17 at 16:14; Status DC Sodium Chloride 1,000 ml @ 1,000 mls/hr 1X ONCE IV ; Start 05/05/17 at 11:30; Stop 05/05/17 at 12:29; Status DC Famotidine (Pepcid) 20 mg BID IVP Last administered on 05/12/17 08:16; Start at 12:00 Amiodarone HCl 900 mg/Dextrose 518 ml @ 0 mls/hr CONT PRN IV SEE I/O RECORD Last administered on 05/05/17 13:17; Start 05/05/17 at 12:15; Stop 05/05/17 at 13:17; Status DC Amiodarone HCl 150 mg/Dextrose 103 ml @ 618 mls/hr 1X ONCE IV Last administered on 05/05/17 12:30; Start 05/05/17 at 12:30; Stop 05/05/17 at 12:39 ; Status DC Potassium Phosphate 13.6 mmol/Sodium Chloride 104.5333 ml @ 52.267 m... Q2H IV ; Start 05/05/17 at 14:30; Stop 05/05/17 at 16:29; Status DC Sodium Chloride 90 meq/Potassium Chloride 50 meq/ Potassium Phosphate 17 mmol/ Magnesium Sulfate 10 meq/Calcium Gluconate 5 meq/ Multivitamins 10 ml/Chromium/ Copper/Manganese/ Seleni/Zn 1 ml/ Total Parenteral Nutrition/Amino Acids/ Dextrose/ Fat Emulsion Intravenous 1,512 ml @ 63 mls/hr TPN CONT IV Last administered on 05/05/17 21:46; Start 05/05/17 at 22:00; Stop 05/06/17 at 21:59 ; Status DC Iohexol (Omnipaque 300 Mg/ml) 60 ml 1X ONCE IV Last administered on 05/05/17 14:50; Start 05/05/17 at 14:45; Stop 05/05/17 at 14:46; Status DC Info (Do NOT chart on this entry -- for MONITORING) 1 each PRN DAILY PRN MC SEE COMMENTS; Start 05/05/17 at 14:45; Stop 05/07/17 at 14:45; Status DC Sodium Chloride 1,000 ml @ 2,000 mls/hr 1X ONCE IV Last administered on 16:33; Start 05/05/17 at 16:00; Stop 05/05/17 at 16:29; Status DC Vancomycin HCl (Vanco Per Pharmacy) 1 each PRN DAILY PRN MC SEE COMMENTS Last administered on 05/08/17 09:08; Start 05/05/17 at 16:00; Stop 05/09/17 at 14:01 ; Status DC Piperacillin Sod/ Tazobactam Sod (Zosyn Per Pharmacy) 1 each PRN DAILY PRN MC SEE COMMENTS; Start 05/05/17 at 16:00; Stop 05/10/17 at 07:20; Status DC Piperacillin Sod/ Tazobactam Sod 4.5 gm/Sodium Chloride 100 ml @ 200 mls/hr Q6HRS IV Last administered on 05/09/17 13:02; Start 05/05/17 at 17:00; Stop 05/09/17 at 13:58; Status DC Vancomycin HCl 1.75 gm/Sodium Chloride 500 ml @ 250 mls/hr 1X ONCE IV Last administered on 05/05/17 16:30; Start 05/05/17 at 17:00; Stop 05/05/17 at 18:59 ; Status DC Potassium Chloride 50 ml @ 50 mls/hr Q1H IV Last administered on 05/05/17 16: 59; Start 05/05/17 at 16:30; Stop 05/05/17 at 19:29; Status DC Vancomycin HCl 1.25 gm/Sodium Chloride 250 ml @ 167 mls/hr Q12H IV Last administered on 05/06/17 18:57; Start 05/06/17 at 06:00; Stop 05/07/17 at 07:47 ; Status DC Vancomycin HCl 1 each 1X ONCE MC Last administered on 05/07/17 05:30; Start 05/07/17 at 05:30; Stop 05/07/17 at 05:31; Status DC Norepinephrine Bitartrate 250 ml @ As Directed STK-MED ONCE IV ; Start at 16:22; Stop 05/05/17 at 16:23; Status DC Norepinephrine Bitartrate 250 ml @ 0 mls/hr CONT PRN IV SEE I/O RECORD Last administered on 05/10/17 17:53; Start 05/05/17 at 16:45 Vasopressin 40 unit/Dextrose 102 ml @ 6 mls/hr CONT PRN IV SEE I/O RECORD Last administered on 05/09/17 19:25; Start 05/05/17 at 17:00 Phenylephrine HCl 20 mg/Sodium Chloride 252 ml @ 0 mls/hr CONT PRN IV SEE I/O RECORD Last administered on 05/06/17 06:22; Start 05/05/17 at 17:00; Stop 05/06 at 08:00; Status DC Propofol 0 ml @ As Directed STK-MED ONCE IV ; Start 05/05/17 at 17:21; Stop at 17:22; Status DC Lidocaine HCl (Lidocaine Pf 2% Vial) 5 ml STK-MED ONCE .ROUTE ; Start 05/05/17 at 17:21; Stop 05/05/17 at 17:22; Status DC Fentanyl Citrate (Fentanyl 2ml Vial) 100 mcg STK-MED ONCE .ROUTE ; Start at 17:22; Stop 05/05/17 at 17:23; Status DC Succinylcholine Chloride (Anectine) 200 mg STK-MED ONCE .ROUTE ; Start 05/05/17 at 17:22; Stop 05/05/17 at 17:23; Status DC Rocuronium Keene (Zemuron) 50 mg STK-MED ONCE .ROUTE ; Start 05/05/17 at 17:22 ; Stop 05/05/17 at 17:23; Status DC Etomidate (Amidate) 20 mg STK-MED ONCE IV ; Start 05/05/17 at 17:25; Stop at 17:26; Status DC Desflurane (Suprane) 60 ml STK-MED ONCE IH ; Start 05/05/17 at 18:02; Stop 05/05 at 18:03; Status DC Rocuronium Keene (Zemuron) 50 mg STK-MED ONCE .ROUTE ; Start 05/05/17 at 18:52 ; Stop 05/05/17 at 18:53; Status DC Phenylephrine HCl (Bhargav-Synephrine Inj) 10 mg STK-MED ONCE .ROUTE ; Start at 19:53; Stop 05/05/17 at 19:54; Status DC Propofol 100 ml @ 0 mls/hr CONT PRN IV SEE I/O RECORD Last administered on 05/05 21:47; Start 05/05/17 at 21:30 Midazolam HCl 100 ml @ 0 mls/hr CONT PRN IV SEE I/O RECORD Last administered on 05/08/17 00:43; Start 05/05/17 at 22:00 Sodium Bicarbonate 150 meq/Dextrose 1,150 ml @ 100 mls/hr [id number] IV Last administered on 05/07/17 03:44; Start 05/06/17 at 02:00; Stop 05/07/17 at 10:32 ; Status DC Micafungin Sodium 100 mg/Dextrose 100 ml @ 100 mls/hr Q24H IV Last administered on 05/09/17 08:00; Start 05/06/17 at 08:00; Stop 05/09/17 at 13:58; Status DC Phenylephrine HCl 80 mg/Sodium Chloride 258 ml @ 0 mls/hr CONT PRN IV SEE I/O RECORD Last administered on 05/06/17 08:16; Start 05/06/17 at 08:00 Potassium Phosphate 10 mmol/ Sodium Chloride 103.3333 ml @ 51.667 m... Q2H IV Last administered on 05/06/17 16:11; Start 05/06/17 at 08:30; Stop 05/06/17 at 12:29; Status DC Fentanyl Citrate 30 ml @ 0 mls/hr CONT PRN PRN IV PROTOCOL Last administered on 05/10/17 10:47; Start 05/06/17 at 10:45 Naloxone HCl (Narcan) 0.4 mg PRN Q2MIN PRN IV SEE INSTRUCTIONS; Start 05/06/17 at 10:45 Sodium Chloride 1,000 ml @ 25 mls/hr Q24H IV Last administered on 05/10/17 10: 17; Start 05/06/17 at 11:00 Norepinephrine Bitartrate 250 ml @ 0 mls/hr CONT PRN IV SEE I/O RECORD; Start 05/06/17 at 10:45; Status Cancel Sodium Chloride 90 meq/Sodium Acetate 40 meq/ Potassium Chloride 50 meq/ Potassium Phosphate 25 mmol/ Magnesium Sulfate 15 meq/Calcium Gluconate 5 meq/ Multivitamins 10 ml/Chromium/ Copper/Manganese/ Seleni/Zn 1 ml/ Total Parenteral Nutrition/Amino Acids/Dextrose/ Fat Emulsion Intravenous 1,512 ml @ 63 mls/hr TPN CONT IV Last administered on 05/06/17 21:38; Start 05/06/17 at 22:00; Stop 05/07/17 at 21:59; Status DC Famotidine (Pepcid) 20 mg BID IVP ; Start 05/06/17 at 21:00; Status UNV Digoxin (Lanoxin) 250 mcg DAILY PO ; Start 05/06/17 at 16:00; Stop 05/08/17 at 10:59; Status DC Vancomycin HCl 1 gm/Sodium Chloride 250 ml @ 250 mls/hr Q8H IV Last administered on 05/09/17 12:59; Start 05/07/17 at 08:00; Stop 05/09/17 at 13:58; Status DC Vancomycin HCl 1 each 1X ONCE MC ; Start 05/08/17 at 07:30; Stop 05/08/17 at 07 :31; Status DC Potassium Phosphate 15 mmol/ Sodium Chloride 255 ml @ 127.5 mls/ hr 1X ONCE IV Last administered on 05/07/17 10:46; Start 05/07/17 at 10:30; Stop at 12:29; Status DC Sodium Chloride 1,000 ml @ 75 mls/hr [id number] IV Last administered on 05/12/17 03:29; Start 05/07/17 at 12:00 Sodium Chloride 90 meq/Sodium Acetate 40 meq/ Potassium Chloride 50 meq/ Potassium Phosphate 25 mmol/ Magnesium Sulfate 15 meq/Calcium Gluconate 5 meq/ Multivitamins 10 ml/Chromium/ Copper/Manganese/ Seleni/Zn 1 ml/ Total Parenteral Nutrition/Amino Acids/Dextrose/ Fat Emulsion Intravenous 1,512 ml @ 63 mls/hr TPN CONT IV Last administered on 05/07/17 21:06; Start 05/07/17 at 22:00; Stop 05/08/17 at 21:59; Status DC Albumin Human 100 ml @ 100 mls/hr 1X ONCE IV Last administered on 05/07/17 21:06; Start 05/07/17 at 20:45; Stop 05/07/17 at 21:44; Status DC Potassium Phosphate 15 mmol/ Sodium Chloride 255 ml @ 85 mls/hr Q2H IV Last administered on 05/07/17 21:55; Start 05/07/17 at 22:00; Stop 05/07/17 at 23:59 ; Status DC Digoxin (Lanoxin) 250 mcg DAILY IV Last administered on 05/12/17 08:17; Start 05/08/17 at 11:15 Sodium Chloride 90 meq/Sodium Acetate 40 meq/ Potassium Chloride 50 meq/ Potassium Phosphate 20 mmol/ Magnesium Sulfate 15 meq/Calcium Gluconate 5 meq/ Multivitamins 10 ml/Chromium/ Copper/Manganese/ Seleni/Zn 1 ml/ Total Parenteral Nutrition/Amino Acids/Dextrose/ Fat Emulsion Intravenous 1,512 ml @ 63 mls/hr TPN CONT IV Last administered on 05/08/17 21:39; Start 05/08/17 at 22:00; Stop 05/09/17 at 21:59; Status DC Chlorhexidine Gluconate (Peridex) 15 ml BID SWSP Last administered on 05/12/17 08:17; Start 05/08/17 at 21:00 Multi-Ingred Cream/Lotion/Oil/ Oint (Artificial Tears Eye Oint) 1 emelia PRN Q12HR PRN OU DRY EYE Last administered on 05/08/17 16:31; Start 05/08/17 at 14:45 Sodium Chloride 90 meq/Sodium Acetate 40 meq/ Potassium Acetate 70 meq/ Potassium Phosphate 20 mmol/ Magnesium Sulfate 15 meq/Calcium Gluconate 5 meq/ Multivitamins 10 ml/Chromium/ Copper/Manganese/ Seleni/Zn 1 ml/ Total Parenteral Nutrition/Amino Acids/Dextrose/ Fat Emulsion Intravenous 1,512 ml @ 63 mls/hr TPN CONT IV Last administered on 05/09/17 22:13; Start 05/09/17 at 22 :00; Stop 05/10/17 at 21:59; Status DC Ceftriaxone Sodium 1 gm/ Sodium Chloride 50 ml @ 100 mls/hr Q24H IV Last administered on 05/11/17 15:11; Start 05/09/17 at 14:00; Stop 05/12/17 at 08:25; Status DC Sodium Chloride 60 meq/Sodium Acetate 50 meq/ Potassium Acetate 90 meq/ Potassium Phosphate 20 mmol/ Magnesium Sulfate 15 meq/Calcium Gluconate 5 meq/ Multivitamins 10 ml/Chromium/ Copper/Manganese/ Seleni/Zn 1 ml/ Total Parenteral Nutrition/Amino Acids/Dextrose/ Fat Emulsion Intravenous 1,512 ml @ 63 mls/hr TPN CONT IV Last administered on 05/10/17 21:24; Start 05/10/17 at 22 :00; Stop 05/11/17 at 21:59; Status DC Enoxaparin Sodium (Lovenox 40mg Syringe) 40 mg Q24H SQ Last administered on 05/11 20:42; Start 05/10/17 at 21:00 Sodium Chloride 40 meq/Sodium Acetate 50 meq/ Potassium Acetate 90 meq/ Potassium Phosphate 20 mmol/ Magnesium Sulfate 15 meq/Calcium Gluconate 5 meq/ Multivitamins 10 ml/Chromium/ Copper/Manganese/ Seleni/Zn 1 ml/ Total Parenteral Nutrition/Amino Acids/Dextrose/ Fat Emulsion Intravenous 1,512 ml @ 63 mls/hr TPN CONT IV Last administered on 05/11/17 20:42; Start 05/11/17 at 22 :00; Stop 7/4/17 at 21:59 Micafungin Sodium 100 mg/Dextrose 100 ml @ 100 mls/hr Q24H IV Last administered on 05/12/17 12:44; Start 05/11/17 at 12:00 Piperacillin Sod/ Tazobactam Sod 3.375 gm/Sodium Chloride 50 ml @ 100 mls/hr Q6HRS IV Last administered on 05/12/17 12:44; Start 05/12/17 at 09:00 Sodium Chloride 40 meq/Sodium Acetate 50 meq/ Potassium Acetate 90 meq/ Potassium Phosphate 20 mmol/ Magnesium Sulfate 15 meq/Calcium Gluconate 5 meq/ Multivitamins 10 ml/Chromium/ Copper/Manganese/ Seleni/Zn 1 ml/ Total Parenteral Nutrition/Amino Acids/Dextrose/ Fat Emulsion Intravenous 1,512 ml @ 63 mls/hr TPN CONT IV ; Start 05/12/17 at 22:00; Stop 05/13/17 at 21:59 Active Scripts Active Reported Melatonin 3 Mg Tablet 1 Tab PO QHS Move Free Joint Health Tablet (Glucosam/Chond/Hyalu/Cf Borate) 1 Each Tablet 1 Each PO DAILY Digoxin 125 Mcg Tablet 1 Tab PO DAILY Prednisone 10 Mg Tablet 10 Mg PO DAILY Allergies Allergies: Coded Allergies: No Known Drug Allergies (Unverified , 04/29/17) ROS Review of System According to girlfriend, no fevers, chills, weight loss, dyspnea, angina, abdominal pain, change in bowels, or dysuria. 14 point review of systems is negative. Physical Exam Physical Examination PHYSICAL EXAMINATION: Vital signs: see above. General appearance is normal and in no acute distress. HEENT: Normocephalic and nontraumatic. Eyes, nose, ears, and throat are unremarkable. Neck is supple. No lymphadenopathy. No bruits are heard over the carotid artery. No crepitus. NEUROLOGIC: Intubated in the intensive care unit. Eyes are open. Pupils react. He withdraws extremities to minimal stimulation. Reflexes are 1+ with silent plantar responses. He does not cooperate with tests of coordination and sensation. Vitals VITALS Vital Signs Date Time Temp Pulse Resp B/P (MAP) Pulse Ox O2 Delivery O2 Flow Rate FiO2 05/12/17 12:38 99 Ventilator 05/12/17 11:00 104 28 118/79 (92) 05/12/17 08:00 98.7 98.7 Labs Labs Laboratory Tests Test 05/11/17 06:20 05/11/17 08:14 05/12/17 05:37 05/12/17 08:00 White Blood Count 16.7 x10^3/uL (4.0-11.0) 17.0 x10^3/uL (4.0-11.0) Red Blood Count 2.68 x10^6/uL (4.30-5.70) 2.84 x10^6/uL (4.30-5.70) Hemoglobin 8.7 g/dL (13.0-17.5) 9.3 g/dL (13.0-17.5) Hematocrit 27.2 % (39.0-53.0) 28.2 % (39.0-53.0) Mean Corpuscular Volume 102 fL (79-100) 99 fL (79-100) Mean Corpuscular Hemoglobin 32 pg (25-35) 33 pg (25-35) Mean Corpuscular Hemoglobin Concent 32 g/dL (31-37) 33 g/dL (31-37) Red Cell Distribution Width 17.7 % (11.5-14.5) 17.4 % (11.5-14.5) Platelet Count 191 x10^3/uL (140-400) 260 x10^3/uL (140-400) Neutrophils (%) (Auto) 85 % (31-73) 85 % (31-73) Lymphocytes (%) (Auto) 10 % (24-48) 10 % (24-48) Monocytes (%) (Auto) 4 % (0-9) 5 % (0-9) Eosinophils (%) (Auto) 1 % (0-3) 1 % (0-3) Basophils (%) (Auto) 1 % (0-3) 0 % (0-3) Neutrophils # (Auto) 14.1 x10^3uL (1.8-7.7) 14.4 x10^3uL (1.8-7.7) Lymphocytes # (Auto) 1.7 x10^3/uL (1.0-4.8) 1.6 x10^3/uL (1.0-4.8) Monocytes # (Auto) 0.7 x10^3/uL (0.0-1.1) 0.8 x10^3/uL (0.0-1.1) Eosinophils # (Auto) 0.1 x10^3/uL (0.0-0.7) 0.1 x10^3/uL (0.0-0.7) Basophils # (Auto) 0.1 x10^3/uL (0.0-0.2) 0.1 x10^3/uL (0.0-0.2) Sodium Level 143 mmol/L (136-145) 142 mmol/L (136-145) Potassium Level 3.9 mmol/L (3.5-5.1) 4.2 mmol/L (3.5-5.1) Chloride Level 109 mmol/L (98-107) 109 mmol/L (98-107) Carbon Dioxide Level 28 mmol/L (21-32) 29 mmol/L (21-32) Anion Gap 6 (6-14) 4 (6-14) Blood Urea Nitrogen 19 mg/dL (8-26) 18 mg/dL (8-26) Creatinine 0.6 mg/dL (0.7-1.3) 0.6 mg/dL (0.7-1.3) Estimated GFR (Cockcroft-Gault) 132.8 132.8 BUN/Creatinine Ratio 32 (6-20) 30 (6-20) Glucose Level 123 mg/dL (70-99) 105 mg/dL (70-99) Calcium Level 8.0 mg/dL (8.5-10.1) 8.2 mg/dL (8.5-10.1) Phosphorus Level 3.9 mg/dL (2.6-4.7) Magnesium Level 2.1 mg/dL (1.8-2.4) Total Bilirubin 1.6 mg/dL (0.2-1.0) 1.8 mg/dL (0.2-1.0) Aspartate Amino Transf (AST/SGOT) 27 U/L (15-37) 28 U/L (15-37) Alanine Aminotransferase (ALT/SGPT) 17 U/L (16-63) 17 U/L (16-63) Alkaline Phosphatase 94 U/L (46-116) 97 U/L (46-116) Total Protein 4.7 g/dL (6.4-8.2) 5.0 g/dL (6.4-8.2) Albumin 1.1 g/dL (3.4-5.0) 1.1 g/dL (3.4-5.0) Albumin/Globulin Ratio 0.3 (1.0-1.7) 0.3 (1.0-1.7) O2 Saturation 94 % (92-99) 95 % (92-99) Arterial Blood pH 7.47 (7.35-7.45) 7.49 (7.35-7.45) Arterial Blood pCO2 at Patient Temp 37 mmHg (35-46) 32 mmHg (35-46) Arterial Blood pO2 at Patient Temp 74 mmHg (65-108) 77 mmHg (65-108) Arterial Blood HCO3 27 mmol/L (21-28) 24 mmol/L (21-28) Arterial Blood Base Excess 3 mmol/L (-3-3) 1 mmol/L (-3-3) FiO2 30 30 Laboratory Tests Test 05/12/17 05:37 05/12/17 08:00 White Blood Count 17.0 x10^3/uL (4.0-11.0) Red Blood Count 2.84 x10^6/uL (4.30-5.70) Hemoglobin 9.3 g/dL (13.0-17.5) Hematocrit 28.2 % (39.0-53.0) Mean Corpuscular Volume 99 fL (79-100) Mean Corpuscular Hemoglobin 33 pg (25-35) Mean Corpuscular Hemoglobin Concent 33 g/dL (31-37) Red Cell Distribution Width 17.4 % (11.5-14.5) Platelet Count 260 x10^3/uL (140-400) Neutrophils (%) (Auto) 85 % (31-73) Lymphocytes (%) (Auto) 10 % (24-48) Monocytes (%) (Auto) 5 % (0-9) Eosinophils (%) (Auto) 1 % (0-3) Basophils (%) (Auto) 0 % (0-3) Neutrophils # (Auto) 14.4 x10^3uL (1.8-7.7) Lymphocytes # (Auto) 1.6 x10^3/uL (1.0-4.8) Monocytes # (Auto) 0.8 x10^3/uL (0.0-1.1) Eosinophils # (Auto) 0.1 x10^3/uL (0.0-0.7) Basophils # (Auto) 0.1 x10^3/uL (0.0-0.2) Sodium Level 142 mmol/L (136-145) Potassium Level 4.2 mmol/L (3.5-5.1) Chloride Level 109 mmol/L (98-107) Carbon Dioxide Level 29 mmol/L (21-32) Anion Gap 4 (6-14) Blood Urea Nitrogen 18 mg/dL (8-26) Creatinine 0.6 mg/dL (0.7-1.3) Estimated GFR (Cockcroft-Gault) 132.8 BUN/Creatinine Ratio 30 (6-20) Glucose Level 105 mg/dL (70-99) Calcium Level 8.2 mg/dL (8.5-10.1) Total Bilirubin 1.8 mg/dL (0.2-1.0) Aspartate Amino Transf (AST/SGOT) 28 U/L (15-37) Alanine Aminotransferase (ALT/SGPT) 17 U/L (16-63) Alkaline Phosphatase 97 U/L (46-116) Total Protein 5.0 g/dL (6.4-8.2) Albumin 1.1 g/dL (3.4-5.0) Albumin/Globulin Ratio 0.3 (1.0-1.7) O2 Saturation 95 % (92-99) Arterial Blood pH 7.49 (7.35-7.45) Arterial Blood pCO2 at Patient Temp 32 mmHg (35-46) Arterial Blood pO2 at Patient Temp 77 mmHg (65-108) Arterial Blood HCO3 24 mmol/L (21-28) Arterial Blood Base Excess 1 mmol/L (-3-3) FiO2 30 Assessment/Plan Assessment/Plan Impression: Metabolic encephalopathy related to the long sedation, sepsis, episode of hypotension. He does drink a large amount of alcohol but should be getting plenty of thiamine in the parenteral nutrition. Recommendations: CT of the head, routine EEG, routine I discussed my findings with the patient's girlfriend. Thank you for letting me help with the patient's care. MOISES MILLIGAN MD May 12, 2017 14:32
--- NOTE | 2017-05-12 16:57 | PDOC ---
PULMONARY PROGRESS NOTES Subjective INTUBATED ON AC MODE OFF PRESSORS FOLLOW SOME COMMANDS PER RN Vitals Vital Signs Date Time Temp Pulse Resp B/P (MAP) Pulse Ox O2 Delivery O2 Flow Rate FiO2 05/12/17 15:39 Mechanical Ventilator 05/12/17 15:02 99 05/12/17 11:00 104 28 118/79 (92) 05/12/17 08:00 98.7 98.7 Lungs: Other (DECREASE BS, ERYTHEMA, DRAINS) Cardiovascular: S1 Abdomen: Other (firm) Extremities: Other (1+edema) Skin: Warm Labs Laboratory Tests Test 05/11/17 06:20 05/11/17 08:14 05/12/17 05:37 05/12/17 08:00 White Blood Count 16.7 x10^3/uL (4.0-11.0) 17.0 x10^3/uL (4.0-11.0) Red Blood Count 2.68 x10^6/uL (4.30-5.70) 2.84 x10^6/uL (4.30-5.70) Hemoglobin 8.7 g/dL (13.0-17.5) 9.3 g/dL (13.0-17.5) Hematocrit 27.2 % (39.0-53.0) 28.2 % (39.0-53.0) Mean Corpuscular Volume 102 fL (79-100) 99 fL (79-100) Mean Corpuscular Hemoglobin 32 pg (25-35) 33 pg (25-35) Mean Corpuscular Hemoglobin Concent 32 g/dL (31-37) 33 g/dL (31-37) Red Cell Distribution Width 17.7 % (11.5-14.5) 17.4 % (11.5-14.5) Platelet Count 191 x10^3/uL (140-400) 260 x10^3/uL (140-400) Neutrophils (%) (Auto) 85 % (31-73) 85 % (31-73) Lymphocytes (%) (Auto) 10 % (24-48) 10 % (24-48) Monocytes (%) (Auto) 4 % (0-9) 5 % (0-9) Eosinophils (%) (Auto) 1 % (0-3) 1 % (0-3) Basophils (%) (Auto) 1 % (0-3) 0 % (0-3) Neutrophils # (Auto) 14.1 x10^3uL (1.8-7.7) 14.4 x10^3uL (1.8-7.7) Lymphocytes # (Auto) 1.7 x10^3/uL (1.0-4.8) 1.6 x10^3/uL (1.0-4.8) Monocytes # (Auto) 0.7 x10^3/uL (0.0-1.1) 0.8 x10^3/uL (0.0-1.1) Eosinophils # (Auto) 0.1 x10^3/uL (0.0-0.7) 0.1 x10^3/uL (0.0-0.7) Basophils # (Auto) 0.1 x10^3/uL (0.0-0.2) 0.1 x10^3/uL (0.0-0.2) Sodium Level 143 mmol/L (136-145) 142 mmol/L (136-145) Potassium Level 3.9 mmol/L (3.5-5.1) 4.2 mmol/L (3.5-5.1) Chloride Level 109 mmol/L (98-107) 109 mmol/L (98-107) Carbon Dioxide Level 28 mmol/L (21-32) 29 mmol/L (21-32) Anion Gap 6 (6-14) 4 (6-14) Blood Urea Nitrogen 19 mg/dL (8-26) 18 mg/dL (8-26) Creatinine 0.6 mg/dL (0.7-1.3) 0.6 mg/dL (0.7-1.3) Estimated GFR (Cockcroft-Gault) 132.8 132.8 BUN/Creatinine Ratio 32 (6-20) 30 (6-20) Glucose Level 123 mg/dL (70-99) 105 mg/dL (70-99) Calcium Level 8.0 mg/dL (8.5-10.1) 8.2 mg/dL (8.5-10.1) Phosphorus Level 3.9 mg/dL (2.6-4.7) Magnesium Level 2.1 mg/dL (1.8-2.4) Total Bilirubin 1.6 mg/dL (0.2-1.0) 1.8 mg/dL (0.2-1.0) Aspartate Amino Transf (AST/SGOT) 27 U/L (15-37) 28 U/L (15-37) Alanine Aminotransferase (ALT/SGPT) 17 U/L (16-63) 17 U/L (16-63) Alkaline Phosphatase 94 U/L (46-116) 97 U/L (46-116) Total Protein 4.7 g/dL (6.4-8.2) 5.0 g/dL (6.4-8.2) Albumin 1.1 g/dL (3.4-5.0) 1.1 g/dL (3.4-5.0) Albumin/Globulin Ratio 0.3 (1.0-1.7) 0.3 (1.0-1.7) O2 Saturation 94 % (92-99) 95 % (92-99) Arterial Blood pH 7.47 (7.35-7.45) 7.49 (7.35-7.45) Arterial Blood pCO2 at Patient Temp 37 mmHg (35-46) 32 mmHg (35-46) Arterial Blood pO2 at Patient Temp 74 mmHg (65-108) 77 mmHg (65-108) Arterial Blood HCO3 27 mmol/L (21-28) 24 mmol/L (21-28) Arterial Blood Base Excess 3 mmol/L (-3-3) 1 mmol/L (-3-3) FiO2 30 30 Laboratory Tests Test 05/12/17 05:37 05/12/17 08:00 White Blood Count 17.0 x10^3/uL (4.0-11.0) Red Blood Count 2.84 x10^6/uL (4.30-5.70) Hemoglobin 9.3 g/dL (13.0-17.5) Hematocrit 28.2 % (39.0-53.0) Mean Corpuscular Volume 99 fL (79-100) Mean Corpuscular Hemoglobin 33 pg (25-35) Mean Corpuscular Hemoglobin Concent 33 g/dL (31-37) Red Cell Distribution Width 17.4 % (11.5-14.5) Platelet Count 260 x10^3/uL (140-400) Neutrophils (%) (Auto) 85 % (31-73) Lymphocytes (%) (Auto) 10 % (24-48) Monocytes (%) (Auto) 5 % (0-9) Eosinophils (%) (Auto) 1 % (0-3) Basophils (%) (Auto) 0 % (0-3) Neutrophils # (Auto) 14.4 x10^3uL (1.8-7.7) Lymphocytes # (Auto) 1.6 x10^3/uL (1.0-4.8) Monocytes # (Auto) 0.8 x10^3/uL (0.0-1.1) Eosinophils # (Auto) 0.1 x10^3/uL (0.0-0.7) Basophils # (Auto) 0.1 x10^3/uL (0.0-0.2) Sodium Level 142 mmol/L (136-145) Potassium Level 4.2 mmol/L (3.5-5.1) Chloride Level 109 mmol/L (98-107) Carbon Dioxide Level 29 mmol/L (21-32) Anion Gap 4 (6-14) Blood Urea Nitrogen 18 mg/dL (8-26) Creatinine 0.6 mg/dL (0.7-1.3) Estimated GFR (Cockcroft-Gault) 132.8 BUN/Creatinine Ratio 30 (6-20) Glucose Level 105 mg/dL (70-99) Calcium Level 8.2 mg/dL (8.5-10.1) Total Bilirubin 1.8 mg/dL (0.2-1.0) Aspartate Amino Transf (AST/SGOT) 28 U/L (15-37) Alanine Aminotransferase (ALT/SGPT) 17 U/L (16-63) Alkaline Phosphatase 97 U/L (46-116) Total Protein 5.0 g/dL (6.4-8.2) Albumin 1.1 g/dL (3.4-5.0) Albumin/Globulin Ratio 0.3 (1.0-1.7) O2 Saturation 95 % (92-99) Arterial Blood pH 7.49 (7.35-7.45) Arterial Blood pCO2 at Patient Temp 32 mmHg (35-46) Arterial Blood pO2 at Patient Temp 77 mmHg (65-108) Arterial Blood HCO3 24 mmol/L (21-28) Arterial Blood Base Excess 1 mmol/L (-3-3) FiO2 30 Medications Active Scripts Medications Dose Route/Sig Max Daily Dose Days Date Category Melatonin 3 Mg Tablet 1 Tab PO QHS 04/22/17 Reported Move Free Joint Health Tablet (Glucosam/Chond/Hyalu/Cf Borate) 1 Each Tablet 1 Each PO DAILY 04/22/17 Reported Digoxin 125 Mcg Tablet 1 Tab PO DAILY 04/22/17 Reported Prednisone 10 Mg Tablet 10 Mg PO DAILY 04/22/17 Reported Comments IMPRESSION: 1. Stable tube positions. 2. Mild vascular congestion. 3. Ongoing basilar infiltrates, left greater than right, with slight further interval worsening. Impression . 1. Acute respiratory failure, expected post -op 2. septic shock IMPROVED 3. Metabolic acidosis/ lactic acidosis, improving 4. chronic A-Fib 5. Crohn's Dx, who has h/o perforated viscous and underwent lap with resection . Cults + for H para/Clostridium Ramsom/Bacteroides/Strep bovis. D/cd home with Augmentin. Presented electively for an extended right colon resection with ileocolotomy 04/29. Taken back to OR ruptured ileo-colic anastomosis, fecal impaction s/p rigid procto, disimpaction, ex lap, resection of ileo-colic anastomosis, end ileostomy, Evans's pouch, 6. Toxic and metabolic encephalopathy 7. Abnormal CXR Plan . spoke with daughter girlfriend at bedside will continue support possible weaning in am off pressors nutrition tpn anttibx per NAILA ANGELES MD May 12, 2017 16:57
[2017-05-12] MEDS ORDERED: ALTEPLASE 2 MG VIAL INT CAT ONE (21:00)
[2017-05-12] MEDS ORDERED: ALBUMIN HUMAN 25% 100 ML IV ONE (21:00)
[2017-05-12] MEDS: ENOXAPARIN 40 MG/0.4 ML SYRINGE. SQ SCH (21:04)
[2017-05-12] MEDS ORDERED: [UNRECOGNIZED DRUG - OTHER] IV SCH ×11 (22:00)
[2017-05-12] MEDS ORDERED: TOTAL PARENTERAL NUTRITION IV SCH ×11 (22:00)
[2017-05-12] MEDS ORDERED: DEXTROSE 70% IV SCH ×11 (22:00)
[2017-05-12] MEDS ORDERED: AMINO ACIDS IV SCH ×11 (22:00)
[2017-05-13] VITALS (24 sets, daily range): BP systolic 87–144; BP diastolic 56–81
[2017-05-13] MEDS: PIPERACILLIN/TAZOBACTAM 3.375 GM in IV NORMAL SALINE 50ML 50 ML IV SCH ×4 (00:03→19:25)
[2017-05-13 06:07] LABS: BASO % 0 % (0-3); EOS % 1 % (0-3); HEMATOCRIT 27.2 % (39.0-53.0); HEMOGLOBIN 9.4 g/dL (13.0-17.5); LYMPH # 1.8 x10^3/uL (1.0-4.8); LYMPH % 9 % (24-48); MEAN CORPUSCULAR HEMOGLOBIN 34 pg (25-35); MEAN CORPUSCULAR HGB CONC 35 g/dL (31-37); MEAN CORPUSCULAR VOLUME 97 fL (79-100); MONO % 5 % (0-9); NEUT % 86 % (31-73); PLATELET COUNT 314 x10^3/uL (140-400); RED BLOOD COUNT 2.81 x10^6/uL (4.30-5.70); RED CELL DISTRIBUTION WIDTH 16.7 % (11.5-14.5); WHITE BLOOD COUNT 19.7 x10^3/uL (4.0-11.0)
[2017-05-13 06:15] LABS: CALCIUM 8.3 mg/dL (8.5-10.1); CREATININE 0.7 mg/dL (0.7-1.3); GFR 111.2; POTASSIUM 4.4 mmol/L (3.5-5.1)
[2017-05-13] MEDS ORDERED: CONTRAST GIVEN MC PRN (07:45)
[2017-05-13] MEDS: CHLORHEXIDINE 0.12% 15 ML MOUTHWASH. SWSP SCH ×2 (08:20→21:04)
[2017-05-13] MEDS: DIGOXIN IV 500 MCG/2 ML AMPUL. IV SCH (08:33)
[2017-05-13] MEDS: FAMOTIDINE 20 MG/2 ML VIAL IVP SCH ×2 (08:34→21:04)
[2017-05-13 08:37] LABS: HCO3 ABG 24 mmol/L (21-28); PCO2 ABG 35 mmHg (35-46); PH ABG 7.46 (7.35-7.45); PO2 ABG 86 mmHg (65-108); SAT O2 ABG 96 % (92-99)
[2017-05-13 08:39] LABS: FIO2 ABG 30
--- NOTE | 2017-05-13 08:40 | PDOC ---
Infectious Disease Note Subjective Subjective Remains intubated. 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 SKIN: No rash IV: ok Labs Lab Laboratory Tests Test 05/13/17 05:30 White Blood Count 19.7 x10^3/uL (4.0-11.0) Red Blood Count 2.81 x10^6/uL (4.30-5.70) Hemoglobin 9.4 g/dL (13.0-17.5) Hematocrit 27.2 % (39.0-53.0) Mean Corpuscular Volume 97 fL (79-100) Mean Corpuscular Hemoglobin 34 pg (25-35) Mean Corpuscular Hemoglobin Concent 35 g/dL (31-37) Red Cell Distribution Width 16.7 % (11.5-14.5) Platelet Count 314 x10^3/uL (140-400) Neutrophils (%) (Auto) 86 % (31-73) Lymphocytes (%) (Auto) 9 % (24-48) Monocytes (%) (Auto) 5 % (0-9) Eosinophils (%) (Auto) 1 % (0-3) Basophils (%) (Auto) 0 % (0-3) Neutrophils # (Auto) 16.9 x10^3uL (1.8-7.7) Lymphocytes # (Auto) 1.8 x10^3/uL (1.0-4.8) Monocytes # (Auto) 0.9 x10^3/uL (0.0-1.1) Eosinophils # (Auto) 0.1 x10^3/uL (0.0-0.7) Basophils # (Auto) 0.0 x10^3/uL (0.0-0.2) Sodium Level 138 mmol/L (136-145) Potassium Level 4.4 mmol/L (3.5-5.1) Chloride Level 106 mmol/L (98-107) Carbon Dioxide Level 26 mmol/L (21-32) Anion Gap 6 (6-14) Blood Urea Nitrogen 17 mg/dL (8-26) Creatinine 0.7 mg/dL (0.7-1.3) Estimated GFR (Cockcroft-Gault) 111.2 Glucose Level 107 mg/dL (70-99) Lactic Acid Level 1.2 mmol/L (0.4-2.0) Calcium Level 8.3 mg/dL (8.5-10.1) Objective Assessment Pelvic abscess. Gram stain: GPC, yeast, anaerobes. Culture E. coli (pansensitive ), yeast so far Sepsis with hypotension, on pressors Leukocytosis, trending up Ruptured ileo-colic anastomosis, fecal impaction s/p rigid procto, disimpaction , ex lap, resection of ileo-colic anastomosis, end ileostomy, Evans's pouch, [place] 05/05 Right flank ? cellulitis Immunosuppression Afib Thrombocytopenia, better H/o H para/Clostridium Ramsom/Bacteroides/Strep bovis January 2017 Plan Plan of Care micafungin and zosyn F/u labs and cults d/w son in detail Critically ill may need repeat ct abd KELSIE CANTU MD May 13, 2017 08:40
[2017-05-13] MEDS ORDERED: fentaNYL PF VIAL 100 MCG/2 ML VIAL ONE (09:26)
[2017-05-13] MEDS ORDERED: IOHEXOL 300 MG/ML 75 ML VIAL IV ONE (09:30)
--- NOTE | 2017-05-13 09:33 | RAD ---
Portable chest, 05/13/2017: History: Respiratory failure Comparison is made yesterday study. The tip of the ET tube lies 4-5 cm above the mehnaz. Right jugular and right PICC lines remain in place extending into the superior vena cava. An NG tube remains in place extending into the stomach. The heart size is normal. Left basilar opacities have improved slightly with mild residual atelectasis/infiltrate and pleural fluid. Mild right basilar atelectasis has partially cleared. There is mild residual blunting of the right lateral costophrenic angle. The upper lung kaufman are clear. No new abnormality is detected. IMPRESSION: 1. Stable tube positions. 2. Slight interval improvement in the basilar opacities.
--- NOTE | 2017-05-13 10:11 | PDOC ---
PROGRESS NOTES Assessment Metabolic encephalopathy related to the long sedation, sepsis, episode of hypotension. He does drink a large amount of alcohol but should be getting plenty of thiamine in the parenteral nutrition.He is better today Plan Await head CT and EEG results Subjective None Objective Vital Signs Date Time Temp Pulse Resp B/P (MAP) Pulse Ox O2 Delivery O2 Flow Rate FiO2 05/13/17 10:00 106 29 105/66 (79) 100 Ventilator 05/13/17 08:00 98.8 98.8 Intake and Output 05/13/17 07:00 Intake Total 3552 ml Output Total 5958 ml Balance -2406 ml IV Total 3552 ml Output Urine Total 3020 ml Gastric Drainage Total 1550 ml Drainage Total 1388 ml PHYSICAL EXAM Alert. Eyes open PERRL. EOMI. CN: no focal findings. Muscle tone: normal. Muscle strength: Moves both sides DTR: not tested Plantar reflex: not tested Gait: not examined in bed. Sensory exam: not tested Cerebellar: not tested. Review of Relevant I have reviewed the following items manuel (where applicable) has been applied. Labs Laboratory Tests Test 05/12/17 05:37 05/12/17 08:00 05/13/17 05:30 05/13/17 08:00 White Blood Count 17.0 x10^3/uL (4.0-11.0) 19.7 x10^3/uL (4.0-11.0) Red Blood Count 2.84 x10^6/uL (4.30-5.70) 2.81 x10^6/uL (4.30-5.70) Hemoglobin 9.3 g/dL (13.0-17.5) 9.4 g/dL (13.0-17.5) Hematocrit 28.2 % (39.0-53.0) 27.2 % (39.0-53.0) Mean Corpuscular Volume 99 fL (79-100) 97 fL (79-100) Mean Corpuscular Hemoglobin 33 pg (25-35) 34 pg (25-35) Mean Corpuscular Hemoglobin Concent 33 g/dL (31-37) 35 g/dL (31-37) Red Cell Distribution Width 17.4 % (11.5-14.5) 16.7 % (11.5-14.5) Platelet Count 260 x10^3/uL (140-400) 314 x10^3/uL (140-400) Neutrophils (%) (Auto) 85 % (31-73) 86 % (31-73) Lymphocytes (%) (Auto) 10 % (24-48) 9 % (24-48) Monocytes (%) (Auto) 5 % (0-9) 5 % (0-9) Eosinophils (%) (Auto) 1 % (0-3) 1 % (0-3) Basophils (%) (Auto) 0 % (0-3) 0 % (0-3) Neutrophils # (Auto) 14.4 x10^3uL (1.8-7.7) 16.9 x10^3uL (1.8-7.7) Lymphocytes # (Auto) 1.6 x10^3/uL (1.0-4.8) 1.8 x10^3/uL (1.0-4.8) Monocytes # (Auto) 0.8 x10^3/uL (0.0-1.1) 0.9 x10^3/uL (0.0-1.1) Eosinophils # (Auto) 0.1 x10^3/uL (0.0-0.7) 0.1 x10^3/uL (0.0-0.7) Basophils # (Auto) 0.1 x10^3/uL (0.0-0.2) 0.0 x10^3/uL (0.0-0.2) Sodium Level 142 mmol/L (136-145) 138 mmol/L (136-145) Potassium Level 4.2 mmol/L (3.5-5.1) 4.4 mmol/L (3.5-5.1) Chloride Level 109 mmol/L (98-107) 106 mmol/L (98-107) Carbon Dioxide Level 29 mmol/L (21-32) 26 mmol/L (21-32) Anion Gap 4 (6-14) 6 (6-14) Blood Urea Nitrogen 18 mg/dL (8-26) 17 mg/dL (8-26) Creatinine 0.6 mg/dL (0.7-1.3) 0.7 mg/dL (0.7-1.3) Estimated GFR (Cockcroft-Gault) 132.8 111.2 BUN/Creatinine Ratio 30 (6-20) Glucose Level 105 mg/dL (70-99) 107 mg/dL (70-99) Calcium Level 8.2 mg/dL (8.5-10.1) 8.3 mg/dL (8.5-10.1) Total Bilirubin 1.8 mg/dL (0.2-1.0) Aspartate Amino Transf (AST/SGOT) 28 U/L (15-37) Alanine Aminotransferase (ALT/SGPT) 17 U/L (16-63) Alkaline Phosphatase 97 U/L (46-116) Total Protein 5.0 g/dL (6.4-8.2) Albumin 1.1 g/dL (3.4-5.0) Albumin/Globulin Ratio 0.3 (1.0-1.7) O2 Saturation 95 % (92-99) 96 % (92-99) Arterial Blood pH 7.49 (7.35-7.45) 7.46 (7.35-7.45) Arterial Blood pCO2 at Patient Temp 32 mmHg (35-46) 35 mmHg (35-46) Arterial Blood pO2 at Patient Temp 77 mmHg (65-108) 86 mmHg (65-108) Arterial Blood HCO3 24 mmol/L (21-28) 24 mmol/L (21-28) Arterial Blood Base Excess 1 mmol/L (-3-3) 1 mmol/L (-3-3) FiO2 30 30 Lactic Acid Level 1.2 mmol/L (0.4-2.0) Test 05/13/17 08:40 Glucose (Fingerstick) 107 mg/dL (70-99) Laboratory Tests Test 05/13/17 05:30 05/13/17 08:00 05/13/17 08:40 White Blood Count 19.7 x10^3/uL (4.0-11.0) Red Blood Count 2.81 x10^6/uL (4.30-5.70) Hemoglobin 9.4 g/dL (13.0-17.5) Hematocrit 27.2 % (39.0-53.0) Mean Corpuscular Volume 97 fL (79-100) Mean Corpuscular Hemoglobin 34 pg (25-35) Mean Corpuscular Hemoglobin Concent 35 g/dL (31-37) Red Cell Distribution Width 16.7 % (11.5-14.5) Platelet Count 314 x10^3/uL (140-400) Neutrophils (%) (Auto) 86 % (31-73) Lymphocytes (%) (Auto) 9 % (24-48) Monocytes (%) (Auto) 5 % (0-9) Eosinophils (%) (Auto) 1 % (0-3) Basophils (%) (Auto) 0 % (0-3) Neutrophils # (Auto) 16.9 x10^3uL (1.8-7.7) Lymphocytes # (Auto) 1.8 x10^3/uL (1.0-4.8) Monocytes # (Auto) 0.9 x10^3/uL (0.0-1.1) Eosinophils # (Auto) 0.1 x10^3/uL (0.0-0.7) Basophils # (Auto) 0.0 x10^3/uL (0.0-0.2) Sodium Level 138 mmol/L (136-145) Potassium Level 4.4 mmol/L (3.5-5.1) Chloride Level 106 mmol/L (98-107) Carbon Dioxide Level 26 mmol/L (21-32) Anion Gap 6 (6-14) Blood Urea Nitrogen 17 mg/dL (8-26) Creatinine 0.7 mg/dL (0.7-1.3) Estimated GFR (Cockcroft-Gault) 111.2 Glucose Level 107 mg/dL (70-99) Lactic Acid Level 1.2 mmol/L (0.4-2.0) Calcium Level 8.3 mg/dL (8.5-10.1) O2 Saturation 96 % (92-99) Arterial Blood pH 7.46 (7.35-7.45) Arterial Blood pCO2 at Patient Temp 35 mmHg (35-46) Arterial Blood pO2 at Patient Temp 86 mmHg (65-108) Arterial Blood HCO3 24 mmol/L (21-28) Arterial Blood Base Excess 1 mmol/L (-3-3) FiO2 30 Glucose (Fingerstick) 107 mg/dL (70-99) Microbiology 05/06/17 Blood Culture - Final, Complete NO GROWTH AFTER 5 DAYS 05/05/17 Anaerobic/Aerobic Culture - Final, Complete 05/05/17 Anaerobic Culture Result 1 (ENOCH) - Final, Complete 05/05/17 Aerobic Culture - Final, Complete 05/05/17 Aerobic Culture Result 1 (ENOCH) - Final, Complete 05/05/17 Aerobic Culture Result 2 (ENOCH) - Final, Complete 05/05/17 Aerobic Culture Result 3 (ENOCH) - Final, Complete 05/05/17 Antimicrobic Susceptibility - Final, Complete Medications Current Medications Ondansetron HCl (Zofran) 4 mg PRN Q6HRS PRN IV NAUSEA/VOMITING; Start 04/29/17 at 07:00; Stop 04/29/17 at 17:32; Status DC Fentanyl Citrate (Fentanyl 2ml Vial) 25 mcg PRN Q5MIN PRN IV MILD PAIN; Start 04/29/17 at 07:00; Stop 04/30/17 at 06:59; Status DC Fentanyl Citrate (Fentanyl 2ml Vial) 50 mcg PRN Q5MIN PRN IV MODERATE PAIN Last administered on 04/29/17 16:59; Start 04/29/17 at 07:00; Stop 04/30/17 at 06:59; Status DC Morphine Sulfate 1 mg PRN Q10MIN PRN IV SEVERE PAIN Last administered on 16:41; Start 04/29/17 at 07:00; Stop 04/30/17 at 06:59; Status DC Ringer's Solution 1,000 ml @ 30 mls/hr Q24H IV Last administered on 04/29/17 10:42; Start 04/29/17 at 07:00; Stop 04/29/17 at 18:59; Status DC Lidocaine HCl 2 ml PRN 1X PRN ID PRIOR TO IV START; Start 04/29/17 at 07:00; Stop 04/30/17 at 06:59; Status DC Hydromorphone HCl (Dilaudid) 0.5 mg PRN Q10MIN PRN IV SEV PAIN, Second choice; Start 04/29/17 at 07:00; Stop 04/30/17 at 06:59; Status DC Prochlorperazine Edisylate (Compazine) 5 mg PACU PRN PRN IV NAUSEA, MRX1; Start 04/29/17 at 07:00; Stop 04/30/17 at 06:59; Status DC Cefoxitin Sodium 1 gm/Sodium Chloride 50 ml @ 100 mls/hr 1X ONCE IV Last administered on 6/21/17at 12:00; Start 04/29/17 at 06:00; Stop 04/29/17 at 06:29 ; Status DC Dexamethasone Sodium Phosphate (Decadron) 20 mg STK-MED ONCE .ROUTE ; Start at 10:47; Stop 04/29/17 at 10:48; Status DC Ondansetron HCl (Zofran) 4 mg STK-MED ONCE .ROUTE ; Start 04/29/17 at 10:47; Stop 04/29/17 at 10:48; Status DC Propofol 20 ml @ As Directed STK-MED ONCE IV ; Start 04/29/17 at 10:47; Stop at 10:48; Status DC Lidocaine HCl (Lidocaine Pf 2% Vial) 5 ml STK-MED ONCE .ROUTE ; Start 04/29/17 at 10:47; Stop 04/29/17 at 10:48; Status DC Desflurane (Suprane) 60 ml STK-MED ONCE IH ; Start 04/29/17 at 10:47; Stop 04/29 at 10:48; Status DC Fentanyl Citrate (Fentanyl 2ml Vial) 100 mcg STK-MED ONCE .ROUTE ; Start at 10:47; Stop 04/29/17 at 10:48; Status DC Rocuronium [place] (Zemuron) 50 mg STK-MED ONCE .ROUTE ; Start 04/29/17 at 10:47 ; Stop 04/29/17 at 10:48; Status DC Phenylephrine HCl 1 mg STK-MED ONCE IV ; Start 04/29/17 at 11:52; Stop 04/29/17 at 11:53; Status DC Hydrocortisone Sodium Succinate (Solu-CORTEF) 100 mg STK-MED ONCE .ROUTE ; Start 04/29/17 at 12:04; Stop 04/29/17 at 12:05; Status DC Fentanyl Citrate (Fentanyl 2ml Vial) 100 mcg STK-MED ONCE .ROUTE ; Start at 12:21; Stop 04/29/17 at 12:22; Status DC Rocuronium [place] (Zemuron) 50 mg STK-MED ONCE .ROUTE ; Start 04/29/17 at 12:53 ; Stop 04/29/17 at 12:54; Status DC Labetalol HCl (Normodyne) 20 mg STK-MED ONCE .ROUTE ; Start 04/29/17 at 12:53; Stop 04/29/17 at 12:54; Status DC Fentanyl Citrate (Fentanyl 2ml Vial) 100 mcg STK-MED ONCE .ROUTE ; Start at 12:55; Stop 04/29/17 at 12:56; Status DC Esmolol HCl (Brevibloc) 100 mg STK-MED ONCE IV ; Start 04/29/17 at 12:59; Stop 04/29/17 at 13:00; Status DC Morphine Sulfate 10 mg STK-MED ONCE .ROUTE ; Start 04/29/17 at 13:03; Stop 04/29 at 13:04; Status DC Rocuronium [place] (Zemuron) 100 mg STK-MED ONCE .ROUTE ; Start 04/29/17 at 14: 10; Stop 04/29/17 at 14:11; Status DC Fentanyl Citrate (Fentanyl 2ml Vial) 100 mcg STK-MED ONCE .ROUTE ; Start at 15:08; Stop 04/29/17 at 15:09; Status DC Glycopyrrolate (Robinul) 1 mg STK-MED ONCE .ROUTE ; Start 04/29/17 at 15:29; Stop 04/29/17 at 15:30; Status DC Neostigmine Methylsulfate 5 mg STK-MED ONCE .ROUTE ; Start 04/29/17 at 15:29; Stop 04/29/17 at 15:30; Status DC Esmolol HCl (Brevibloc) 100 mg STK-MED ONCE IV ; Start 04/29/17 at 16:05; Stop 04/29/17 at 16:06; Status DC Diphenhydramine HCl (Benadryl) 25 mg PRN Q6HRS PRN IV ITCHING Last administered on 05/04/17t 20:36; Start 04/29/17 at 16:30 Enoxaparin Sodium (Lovenox 40mg Syringe) 40 mg Q24H SQ Last administered on 05/10 06:27; Start 04/30/17 at 06:00; Stop 05/10/17 at 20:48; Status DC Sodium Chloride (Normal Saline Flush) 3 ml QSHIFT PRN IV AFTER MEDS AND BLOOD DRAWS; Start 04/29/17 at 16:30 Potassium Chloride/Sodium Chloride 1,000 ml @ 100 mls/hr Q10H IV Last administered on 05/01/17 00:17; Start 04/29/17 at 16:26; Stop 05/01/17 at 18:31 ; Status DC Hydromorphone HCl 30 ml @ 0 mls/hr CONT PRN PRN IV PROTOCOL Last administered on 04/30/17 18:01; Start 04/29/17 at 16:30; Stop 05/03/17 at 09:45; Status DC Ondansetron HCl (Zofran) 4 mg PRN Q6HRS PRN IV NAUESA, 1ST CHOICE; Start at 16:30; Stop 05/02/17 at 12:27; Status DC Throat Lozenges (Chloraseptic) 1 spray PRN Q2HR PRN PO SORE THROAT; Start 04/29 at 16:45; Stop 05/05/17 at 11:28; Status DC Throat Lozenges (Chloraseptic) 1 spray PRN Q2HR PRN PO SORE THROAT; Start 04/29 at 16:45; Stop 04/29/17 at 17:32; Status DC Digoxin (Lanoxin) 125 mcg DAILY PO Last administered on 05/01/17 09:32; Start 04/30/17 at 09:00; Stop 05/01/17 at 14:05; Status DC Prednisone (Prednisone) 10 mg DAILY PO ; Start 04/30/17 at 09:00; Stop 04/30/17 at 16:33; Status DC Methylprednisolone Sodium Succinate (SOLU-Medrol 40MG VIAL) 15 mg DAILY IV Last administered on 05/02/17 07:59; Start 04/30/17 at 11:00; Stop 05/02/17 at 14:00; Status DC Pantoprazole Sodium (Protonix Vial) 40 mg DAILYAC IVP Last administered on 05/02 07:57; Start 04/30/17 at 17:00; Stop 05/02/17 at 13:45; Status DC Digoxin (Lanoxin) 250 mcg DAILY PO Last administered on 05/05/17 09:29; Start 05/02/17 at 09:00; Stop 05/06/17 at 14:54; Status DC Sodium Chloride 1,000 ml @ 100 mls/hr Q10H IV Last administered on 05/04/17 03:25; Start 05/01/17 at 18:30; Stop 05/04/17 at 15:20; Status DC Nicotine (Nicoderm Cq 14mg) 1 patch PRN DAILY PRN TD SMOKING CESSATION Last administered on 05/04/17 11:15; Start 05/02/17 at 06:45 Ondansetron HCl (Zofran) 4 mg PRN Q6HRS PRN IV NAUSEA/VOMITING Last administered on 05/05/17 09:36; Start 05/02/17 at 12:30 Acetaminophen/ Hydrocodone Bitart (Lortab 5/325) 1 tab PRN Q4HRS PRN PO MILD PAIN Last administered on 05/04/17 17:13; Start 05/02/17 at 12:30 Fentanyl Citrate (Fentanyl 2ml Vial) 50 mcg PRN Q2HR PRN IV MODERATE PAIN Last administered on 05/06/17 08:14; Start 05/02/17 at 12:30; Stop 05/06/17 at 10:55 ; Status DC Famotidine (Pepcid) 20 mg DAILY IVP Last administered on 05/03/17 09:01; Start 05/03/17 at 09:00; Stop 05/03/17 at 09:45; Status DC Hydromorphone HCl (Dilaudid) 1 mg PRN Q4HRS PRN IV SEVERE PAIN Last administered on 05/04/17 11:13; Start 05/03/17 at 09:45; Stop 05/06/17 at 10:55 ; Status DC Morphine Sulfate (Ms Contin) 15 mg BID PO Last administered on 05/04/17 21:35 ; Start 05/03/17 at 09:45; Stop 05/08/17 at 09:52; Status DC Metoprolol Tartrate (Lopressor) 12.5 mg Q6HRS PO Last administered on 11:14; Start 05/03/17 at 19:00; Stop 05/04/17 at 12:51; Status DC Info 1 each PRN DAILY PRN MC SEE COMMENTS Last administered on 05/12/17 12:21; Start 05/04/17 at 11:15 Metoprolol Tartrate (Lopressor) 25 mg BID PO ; Start 05/04/17 at 21:00; Stop at 14:54; Status DC Magnesium Sulfate/ Dextrose 50 ml @ 25 mls/hr 1X ONCE IV Last administered on 05/04/17 15:46; Start 05/04/17 at 16:00; Stop 05/04/17 at 17:59; Status DC Amino Acids/ Glycerin/ Electrolytes 1,000 ml @ 80 mls/hr [id number] IV Last administered on 05/05/17 05:32; Start 05/04/17 at 16:00; Stop 05/05/17 at 21:59 ; Status DC Amino Acids/ Glycerin/ Electrolytes 1,000 ml @ 80 mls/hr [id number] IV ; Start at 15:30; Status UNV Sodium Chloride 1,000 ml @ 100 mls/hr Q10H IV Last administered on 05/05/17 16:32; Start 05/04/17 at 16:00; Stop 05/06/17 at 01:03; Status DC Albumin Human 500 ml @ 100 mls/hr 1X ONCE IV Last administered on 05/05/17 00:05; Start 05/04/17 at 22:00; Stop 05/05/17 at 02:59; Status DC Lidocaine HCl (Glydo (Lidocaine) Jelly) 1 emelia 1X ONCE MM Last administered on 05/05/17 08:30; Start 05/05/17 at 08:30; Stop 05/05/17 at 08:35; Status DC Throat Lozenges (Chloraseptic) 1 spray PRN Q2HR PRN PO SORE THROAT; Start 05/05 at 08:30 Non-Formulary Medication 1 each DAILY PO ; Start 05/06/17 at 09:00; Stop at 09:00; Status DC Non-Formulary Medication 1 tab QHS PO ; Start 05/05/17 at 21:00; Stop 05/05/17 at 21:00; Status DC Benzocaine (Hurricaine One) 1 spray 1X ONCE MM Last administered on 05/05/17 10:30; Start 05/05/17 at 10:30; Stop 05/05/17 at 10:31; Status DC Throat Lozenges (Cepacol Sore Throat Lozenge) 1 west PRN Q2HRS PRN PO SORE THROAT; Start 05/05/17 at 11:00 Albumin Human 500 ml @ 100 mls/hr 1X ONCE IV Last administered on 05/05/17 13:24; Start 05/05/17 at 11:15; Stop 05/05/17 at 16:14; Status DC Sodium Chloride 1,000 ml @ 1,000 mls/hr 1X ONCE IV ; Start 05/05/17 at 11:30; Stop 05/05/17 at 12:29; Status DC Famotidine (Pepcid) 20 mg BID IVP Last administered on 05/13/17 08:34; Start at 12:00 Amiodarone HCl 900 mg/Dextrose 518 ml @ 0 mls/hr CONT PRN IV SEE I/O RECORD Last administered on 05/05/17 13:17; Start 05/05/17 at 12:15; Stop 05/05/17 at 13:17; Status DC Amiodarone HCl 150 mg/Dextrose 103 ml @ 618 mls/hr 1X ONCE IV Last administered on 05/05/17 12:30; Start 05/05/17 at 12:30; Stop 05/05/17 at 12:39 ; Status DC Potassium Phosphate 13.6 mmol/Sodium Chloride 104.5333 ml @ 52.267 m... Q2H IV ; Start 05/05/17 at 14:30; Stop 05/05/17 at 16:29; Status DC Sodium Chloride 90 meq/Potassium Chloride 50 meq/ Potassium Phosphate 17 mmol/ Magnesium Sulfate 10 meq/Calcium Gluconate 5 meq/ Multivitamins 10 ml/Chromium/ Copper/Manganese/ Seleni/Zn 1 ml/ Total Parenteral Nutrition/Amino Acids/ Dextrose/ Fat Emulsion Intravenous 1,512 ml @ 63 mls/hr TPN CONT IV Last administered on 05/05/17 21:46; Start 05/05/17 at 22:00; Stop 05/06/17 at 21:59 ; Status DC Iohexol (Omnipaque 300 Mg/ml) 60 ml 1X ONCE IV Last administered on 05/05/17 14:50; Start 05/05/17 at 14:45; Stop 05/05/17 at 14:46; Status DC Info (Do NOT chart on this entry -- for MONITORING) 1 each PRN DAILY PRN MC SEE COMMENTS; Start 05/05/17 at 14:45; Stop 05/07/17 at 14:45; Status DC Sodium Chloride 1,000 ml @ 2,000 mls/hr 1X ONCE IV Last administered on 16:33; Start 05/05/17 at 16:00; Stop 05/05/17 at 16:29; Status DC Vancomycin HCl (Vanco Per Pharmacy) 1 each PRN DAILY PRN MC SEE COMMENTS Last administered on 05/08/17 09:08; Start 05/05/17 at 16:00; Stop 05/09/17 at 14:01 ; Status DC Piperacillin Sod/ Tazobactam Sod (Zosyn Per Pharmacy) 1 each PRN DAILY PRN MC SEE COMMENTS; Start 05/05/17 at 16:00; Stop 05/10/17 at 07:20; Status DC Piperacillin Sod/ Tazobactam Sod 4.5 gm/Sodium Chloride 100 ml @ 200 mls/hr Q6HRS IV Last administered on 05/09/17 13:02; Start 05/05/17 at 17:00; Stop 05/09/17 at 13:58; Status DC Vancomycin HCl 1.75 gm/Sodium Chloride 500 ml @ 250 mls/hr 1X ONCE IV Last administered on 05/05/17 16:30; Start 05/05/17 at 17:00; Stop 05/05/17 at 18:59 ; Status DC Potassium Chloride 50 ml @ 50 mls/hr Q1H IV Last administered on 05/05/17 16: 59; Start 05/05/17 at 16:30; Stop 05/05/17 at 19:29; Status DC Vancomycin HCl 1.25 gm/Sodium Chloride 250 ml @ 167 mls/hr Q12H IV Last administered on 05/06/17 18:57; Start 05/06/17 at 06:00; Stop 05/07/17 at 07:47 ; Status DC Vancomycin HCl 1 each 1X ONCE MC Last administered on 05/07/17 05:30; Start 05/07/17 at 05:30; Stop 05/07/17 at 05:31; Status DC Norepinephrine Bitartrate 250 ml @ As Directed STK-MED ONCE IV ; Start at 16:22; Stop 05/05/17 at 16:23; Status DC Norepinephrine Bitartrate 250 ml @ 0 mls/hr CONT PRN IV SEE I/O RECORD Last administered on 05/10/17 17:53; Start 05/05/17 at 16:45 Vasopressin 40 unit/Dextrose 102 ml @ 6 mls/hr CONT PRN IV SEE I/O RECORD Last administered on 05/09/17 19:25; Start 05/05/17 at 17:00 Phenylephrine HCl 20 mg/Sodium Chloride 252 ml @ 0 mls/hr CONT PRN IV SEE I/O RECORD Last administered on 05/06/17 06:22; Start 05/05/17 at 17:00; Stop 05/06 at 08:00; Status DC Propofol 0 ml @ As Directed STK-MED ONCE IV ; Start 05/05/17 at 17:21; Stop at 17:22; Status DC Lidocaine HCl (Lidocaine Pf 2% Vial) 5 ml STK-MED ONCE .ROUTE ; Start 05/05/17 at 17:21; Stop 05/05/17 at 17:22; Status DC Fentanyl Citrate (Fentanyl 2ml Vial) 100 mcg STK-MED ONCE .ROUTE ; Start at 17:22; Stop 05/05/17 at 17:23; Status DC Succinylcholine Chloride (Anectine) 200 mg STK-MED ONCE .ROUTE ; Start 05/05/17 at 17:22; Stop 05/05/17 at 17:23; Status DC Rocuronium [place] (Zemuron) 50 mg STK-MED ONCE .ROUTE ; Start 05/05/17 at 17:22 ; Stop 05/05/17 at 17:23; Status DC Etomidate (Amidate) 20 mg STK-MED ONCE IV ; Start 05/05/17 at 17:25; Stop at 17:26; Status DC Desflurane (Suprane) 60 ml STK-MED ONCE IH ; Start 05/05/17 at 18:02; Stop 05/05 at 18:03; Status DC Rocuronium [place] (Zemuron) 50 mg STK-MED ONCE .ROUTE ; Start 05/05/17 at 18:52 ; Stop 05/05/17 at 18:53; Status DC Phenylephrine HCl (Bhargav-Synephrine Inj) 10 mg STK-MED ONCE .ROUTE ; Start at 19:53; Stop 05/05/17 at 19:54; Status DC Propofol 100 ml @ 0 mls/hr CONT PRN IV SEE I/O RECORD Last administered on 05/05 21:47; Start 05/05/17 at 21:30 Midazolam HCl 100 ml @ 0 mls/hr CONT PRN IV SEE I/O RECORD Last administered on 05/08/17 00:43; Start 05/05/17 at 22:00; Stop 05/13/17 at 09:33; Status DC Sodium Bicarbonate 150 meq/Dextrose 1,150 ml @ 100 mls/hr [id number] IV Last administered on 05/07/17 03:44; Start 05/06/17 at 02:00; Stop 05/07/17 at 10:32 ; Status DC Micafungin Sodium 100 mg/Dextrose 100 ml @ 100 mls/hr Q24H IV Last administered on 05/09/17 08:00; Start 05/06/17 at 08:00; Stop 05/09/17 at 13:58; Status DC Phenylephrine HCl 80 mg/Sodium Chloride 258 ml @ 0 mls/hr CONT PRN IV SEE I/O RECORD Last administered on 05/06/17 08:16; Start 05/06/17 at 08:00 Potassium Phosphate 10 mmol/ Sodium Chloride 103.3333 ml @ 51.667 m... Q2H IV Last administered on 05/06/17 16:11; Start 05/06/17 at 08:30; Stop 05/06/17 at 12:29; Status DC Fentanyl Citrate 30 ml @ 0 mls/hr CONT PRN PRN IV PROTOCOL Last administered on 05/10/17 10:47; Start 05/06/17 at 10:45; Stop 05/13/17 at 09:33; Status DC Naloxone HCl (Narcan) 0.4 mg PRN Q2MIN PRN IV SEE INSTRUCTIONS; Start 05/06/17 at 10:45 Sodium Chloride 1,000 ml @ 25 mls/hr Q24H IV Last administered on 05/10/17 10: 17; Start 05/06/17 at 11:00 Norepinephrine Bitartrate 250 ml @ 0 mls/hr CONT PRN IV SEE I/O RECORD; Start 05/06/17 at 10:45; Status Cancel Sodium Chloride 90 meq/Sodium Acetate 40 meq/ Potassium Chloride 50 meq/ Potassium Phosphate 25 mmol/ Magnesium Sulfate 15 meq/Calcium Gluconate 5 meq/ Multivitamins 10 ml/Chromium/ Copper/Manganese/ Seleni/Zn 1 ml/ Total Parenteral Nutrition/Amino Acids/Dextrose/ Fat Emulsion Intravenous 1,512 ml @ 63 mls/hr TPN CONT IV Last administered on 05/06/17 21:38; Start 05/06/17 at 22:00; Stop 05/07/17 at 21:59; Status DC Famotidine (Pepcid) 20 mg BID IVP ; Start 05/06/17 at 21:00; Status UNV Digoxin (Lanoxin) 250 mcg DAILY PO ; Start 05/06/17 at 16:00; Stop 05/08/17 at 10:59; Status DC Vancomycin HCl 1 gm/Sodium Chloride 250 ml @ 250 mls/hr Q8H IV Last administered on 05/09/17 12:59; Start 05/07/17 at 08:00; Stop 05/09/17 at 13:58; Status DC Vancomycin HCl 1 each 1X ONCE MC ; Start 05/08/17 at 07:30; Stop 05/08/17 at 07 :31; Status DC Potassium Phosphate 15 mmol/ Sodium Chloride 255 ml @ 127.5 mls/ hr 1X ONCE IV Last administered on 05/07/17 10:46; Start 05/07/17 at 10:30; Stop at 12:29; Status DC Sodium Chloride 1,000 ml @ 75 mls/hr [id number] IV Last administered on 05/12/17 19:18; Start 05/07/17 at 12:00 Sodium Chloride 90 meq/Sodium Acetate 40 meq/ Potassium Chloride 50 meq/ Potassium Phosphate 25 mmol/ Magnesium Sulfate 15 meq/Calcium Gluconate 5 meq/ Multivitamins 10 ml/Chromium/ Copper/Manganese/ Seleni/Zn 1 ml/ Total Parenteral Nutrition/Amino Acids/Dextrose/ Fat Emulsion Intravenous 1,512 ml @ 63 mls/hr TPN CONT IV Last administered on 05/07/17 21:06; Start 05/07/17 at 22:00; Stop 05/08/17 at 21:59; Status DC Albumin Human 100 ml @ 100 mls/hr 1X ONCE IV Last administered on 05/07/17 21:06; Start 05/07/17 at 20:45; Stop 05/07/17 at 21:44; Status DC Potassium Phosphate 15 mmol/ Sodium Chloride 255 ml @ 85 mls/hr Q2H IV Last administered on 05/07/17 21:55; Start 05/07/17 at 22:00; Stop 05/07/17 at 23:59 ; Status DC Digoxin (Lanoxin) 250 mcg DAILY IV Last administered on 05/13/17 08:33; Start 05/08/17 at 11:15 Sodium Chloride 90 meq/Sodium Acetate 40 meq/ Potassium Chloride 50 meq/ Potassium Phosphate 20 mmol/ Magnesium Sulfate 15 meq/Calcium Gluconate 5 meq/ Multivitamins 10 ml/Chromium/ Copper/Manganese/ Seleni/Zn 1 ml/ Total Parenteral Nutrition/Amino Acids/Dextrose/ Fat Emulsion Intravenous 1,512 ml @ 63 mls/hr TPN CONT IV Last administered on 05/08/17 21:39; Start 05/08/17 at 22:00; Stop 05/09/17 at 21:59; Status DC Chlorhexidine Gluconate (Peridex) 15 ml BID SWSP Last administered on 05/13/17 08:20; Start 05/08/17 at 21:00 Multi-Ingred Cream/Lotion/Oil/ Oint (Artificial Tears Eye Oint) 1 emelia PRN Q12HR PRN OU DRY EYE Last administered on 05/08/17 16:31; Start 05/08/17 at 14:45 Sodium Chloride 90 meq/Sodium Acetate 40 meq/ Potassium Acetate 70 meq/ Potassium Phosphate 20 mmol/ Magnesium Sulfate 15 meq/Calcium Gluconate 5 meq/ Multivitamins 10 ml/Chromium/ Copper/Manganese/ Seleni/Zn 1 ml/ Total Parenteral Nutrition/Amino Acids/Dextrose/ Fat Emulsion Intravenous 1,512 ml @ 63 mls/hr TPN CONT IV Last administered on 05/09/17 22:13; Start 05/09/17 at 22 :00; Stop 05/10/17 at 21:59; Status DC Ceftriaxone Sodium 1 gm/ Sodium Chloride 50 ml @ 100 mls/hr Q24H IV Last administered on 05/11/17 15:11; Start 05/09/17 at 14:00; Stop 05/12/17 at 08:25; Status DC Sodium Chloride 60 meq/Sodium Acetate 50 meq/ Potassium Acetate 90 meq/ Potassium Phosphate 20 mmol/ Magnesium Sulfate 15 meq/Calcium Gluconate 5 meq/ Multivitamins 10 ml/Chromium/ Copper/Manganese/ Seleni/Zn 1 ml/ Total Parenteral Nutrition/Amino Acids/Dextrose/ Fat Emulsion Intravenous 1,512 ml @ 63 mls/hr TPN CONT IV Last administered on 05/10/17 21:24; Start 05/10/17 at 22 :00; Stop 05/11/17 at 21:59; Status DC Enoxaparin Sodium (Lovenox 40mg Syringe) 40 mg Q24H SQ Last administered on 05/12 21:04; Start 05/10/17 at 21:00 Sodium Chloride 40 meq/Sodium Acetate 50 meq/ Potassium Acetate 90 meq/ Potassium Phosphate 20 mmol/ Magnesium Sulfate 15 meq/Calcium Gluconate 5 meq/ Multivitamins 10 ml/Chromium/ Copper/Manganese/ Seleni/Zn 1 ml/ Total Parenteral Nutrition/Amino Acids/Dextrose/ Fat Emulsion Intravenous 1,512 ml @ 63 mls/hr TPN CONT IV Last administered on 05/11/17 20:42; Start 05/11/17 at 22 :00; Stop 05/12/17 at 21:59; Status DC Micafungin Sodium 100 mg/Dextrose 100 ml @ 100 mls/hr Q24H IV Last administered on 05/12/17 12:44; Start 05/11/17 at 12:00 Piperacillin Sod/ Tazobactam Sod 3.375 gm/Sodium Chloride 50 ml @ 100 mls/hr Q6HRS IV Last administered on 05/13/17 05:26; Start 05/12/17 at 09:00 Sodium Chloride 40 meq/Sodium Acetate 50 meq/ Potassium Acetate 90 meq/ Potassium Phosphate 20 mmol/ Magnesium Sulfate 15 meq/Calcium Gluconate 5 meq/ Multivitamins 10 ml/Chromium/ Copper/Manganese/ Seleni/Zn 1 ml/ Total Parenteral Nutrition/Amino Acids/Dextrose/ Fat Emulsion Intravenous 1,512 ml @ 63 mls/hr TPN CONT IV Last administered on 05/12/17 21:57; Start 05/12/17 at 22 :00; Stop 05/13/17 at 21:59 Albumin Human 100 ml @ 100 mls/hr 1X ONCE IV Last administered on 05/12/17 21 :05; Start 05/12/17 at 21:00; Stop 05/12/17 at 21:59; Status DC Alteplase, Recombinant (Cathflo) 2 mg 1X ONCE INT CAT Last administered on 05/12 21:04; Start 05/12/17 at 21:00; Stop 05/12/17 at 21:01; Status DC Iohexol (Omnipaque 300 Mg/ml) 75 ml 1X ONCE IV Last administered on 05/13/17 09:16; Start 05/13/17 at 09:30; Stop 05/13/17 at 09:31; Status DC Info (Do NOT chart on this entry -- for MONITORING) 1 each PRN DAILY PRN MC SEE COMMENTS; Start 05/13/17 at 07:45; Stop 05/15/17 at 07:44 Fentanyl Citrate (Fentanyl 2ml Vial) 100 mcg STK-MED ONCE .ROUTE ; Start at 09:26; Stop 05/13/17 at 09:27; Status DC Fentanyl Citrate (Fentanyl 2ml Vial) 25 mcg PRN Q2HR PRN IV PAIN; Start at 09:30 Fentanyl Citrate (Fentanyl 2ml Vial) 50 mcg PRN Q2HR PRN IV PAIN; Start at 09:45 Active Scripts Active Reported Melatonin 3 Mg Tablet 1 Tab PO QHS Move Free [facility] Tablet (Glucosam/Chond/Hyalu/Cf Borate) 1 Each Tablet 1 Each PO DAILY Digoxin 125 Mcg Tablet 1 Tab PO DAILY Prednisone 10 Mg Tablet 10 Mg PO DAILY Vitals/I & O Vital Sign - Last 24 Hours 05/12/17 05/12/17 05/12/17 05/12/17 11:00 11:19 12:00 12:00 Temp 98.7 98.7 Pulse 104 98 Resp 28 28 B/P (MAP) 118/79 (92) 102/75 (84) Pulse Ox 99 98 100 O2 Delivery Ventilator Ventilator Ventilator Mechanical Ventilator 05/12/17 05/12/17 05/12/17 05/12/17 12:38 13:00 14:00 15:00 Pulse 100 100 96 Resp 30 32 32 B/P (MAP) 112/72 (85) 117/76 (90) 109/76 (87) Pulse Ox 99 99 100 99 O2 Delivery Ventilator Ventilator Ventilator Ventilator 7/4/05/12/17 05/12/17 05/12/17 15:02 15:39 16:00 17:00 Temp 99.1 99.1 Pulse 104 Resp 29 B/P (MAP) 124/81 (95) Pulse Ox 99 99 99 O2 Delivery Ventilator Mechanical Ventilator Ventilator Ventilator 05/12/17 05/12/17 05/12/17 05/12/17 17:00 18:00 19:00 19:20 Pulse 103 101 93 Resp 30 28 26 B/P (MAP) 109/76 (87) 106/72 (83) 113/74 (87) Pulse Ox 99 99 99 99 O2 Delivery Ventilator Ventilator Ventilator Ventilator 05/12/17 05/12/17 05/12/17 05/12/17 19:34 20:00 20:00 21:00 Temp 98.8 98.8 Pulse 119 119 106 Resp 30 29 B/P (MAP) 106/77 (87) 117/78 (91) Pulse Ox 99 99 O2 Delivery Mechanical Ventilator Ventilator Ventilator 05/12/17 05/12/17 05/12/17 05/12/17 21:00 22:00 23:00 23:13 Pulse 121 96 Resp 30 27 B/P (MAP) 108/73 (85) 98/63 (75) Pulse Ox 99 99 99 99 O2 Delivery Ventilator Ventilator Ventilator Ventilator 05/12/17 05/12/17 05/13/17 05/13/17 23:59 23:59 00:00 01:00 Temp 99.4 99.4 Pulse 102 102 98 Resp 28 B/P (MAP) 108/78 (88) 110/71 (84) Pulse Ox 99 99 O2 Delivery Mechanical Ventilator Ventilator Ventilator 05/13/17 05/13/17 05/13/17 05/13/17 01:11 02:00 03:00 03:20 Pulse 106 96 Resp 26 27 B/P (MAP) 108/69 (82) 112/73 (86) Pulse Ox 97 99 95 95 O2 Delivery Ventilator Ventilator Ventilator Ventilator 05/13/17 05/13/17 05/13/17 05/13/17 03:55 04:00 04:00 05:00 Temp 99.2 99.2 Pulse 95 95 101 Resp 30 27 B/P (MAP) 117/72 (87) 120/70 (87) Pulse Ox 99 95 O2 Delivery Mechanical Ventilator Ventilator Ventilator 05/13/17 05/13/17 05/13/17 05/13/17 06:00 06:05 07:00 07:47 Pulse 105 103 Resp 22 26 B/P (MAP) 144/81 (102) 97/65 (76) Pulse Ox 98 99 98 O2 Delivery Ventilator Ventilator Ventilator Mechanical Ventilator 05/13/17 05/13/17 05/13/17 05/13/17 08:00 08:27 08:33 09:00 Temp 98.8 98.8 Pulse 101 106 115 Resp 30 30 B/P (MAP) 107/69 (82) 107/69 117/81 (93) Pulse Ox 100 100 96 O2 Delivery Ventilator Ventilator Ventilator 05/13/17 05/13/17 09:43 10:00 Pulse 106 Resp 29 B/P (MAP) 105/66 (79) Pulse Ox 100 100 O2 Delivery Ventilator Ventilator Intake and Output 05/12/17 05/12/17 05/13/17 15:00 23:00 07:00 Intake Total 150 ml 1545 ml 1857 ml Output Total 750 ml 3157 ml 2051 ml Balance -600 ml -1612 ml -194 ml MOISES MILLIGAN MD May 13, 2017 10:11
[2017-05-13] MEDS: IV NORMAL SALINE 1000ML BAG 1,000 ML IV SCH ×2 (11:10→14:40)
[2017-05-13] MEDS: MICAFUNGIN 100 MG in IV DEXTROSE 5% 100 ML IV SCH (11:18)
--- NOTE | 2017-05-13 12:15 | PDOC ---
SURGICAL PROGRESS NOTE Subjective more alert responds to commands son at bedside Vital Signs Vital Signs Date Time Temp Pulse Resp B/P (MAP) Pulse Ox O2 Delivery O2 Flow Rate FiO2 05/13/17 11:00 110 31 110/75 (87) 100 Ventilator 05/13/17 08:00 98.8 98.8 I&O Intake and Output 05/13/17 07:00 Intake Total 3552 ml Output Total 5958 ml Balance -2406 ml IV Total 3552 ml Output Urine Total 3020 ml Gastric Drainage Total 1550 ml Drainage Total 1388 ml PATIENT HAS A YANCEY: Yes (on vent) Abdomen: Soft, Other (dressings intact, LASHAUN drains with serosanguineous output) Labs Laboratory Tests Test 05/12/17 05:37 05/12/17 08:00 05/13/17 05:30 05/13/17 08:00 White Blood Count 17.0 x10^3/uL (4.0-11.0) 19.7 x10^3/uL (4.0-11.0) Red Blood Count 2.84 x10^6/uL (4.30-5.70) 2.81 x10^6/uL (4.30-5.70) Hemoglobin 9.3 g/dL (13.0-17.5) 9.4 g/dL (13.0-17.5) Hematocrit 28.2 % (39.0-53.0) 27.2 % (39.0-53.0) Mean Corpuscular Volume 99 fL (79-100) 97 fL (79-100) Mean Corpuscular Hemoglobin 33 pg (25-35) 34 pg (25-35) Mean Corpuscular Hemoglobin Concent 33 g/dL (31-37) 35 g/dL (31-37) Red Cell Distribution Width 17.4 % (11.5-14.5) 16.7 % (11.5-14.5) Platelet Count 260 x10^3/uL (140-400) 314 x10^3/uL (140-400) Neutrophils (%) (Auto) 85 % (31-73) 86 % (31-73) Lymphocytes (%) (Auto) 10 % (24-48) 9 % (24-48) Monocytes (%) (Auto) 5 % (0-9) 5 % (0-9) Eosinophils (%) (Auto) 1 % (0-3) 1 % (0-3) Basophils (%) (Auto) 0 % (0-3) 0 % (0-3) Neutrophils # (Auto) 14.4 x10^3uL (1.8-7.7) 16.9 x10^3uL (1.8-7.7) Lymphocytes # (Auto) 1.6 x10^3/uL (1.0-4.8) 1.8 x10^3/uL (1.0-4.8) Monocytes # (Auto) 0.8 x10^3/uL (0.0-1.1) 0.9 x10^3/uL (0.0-1.1) Eosinophils # (Auto) 0.1 x10^3/uL (0.0-0.7) 0.1 x10^3/uL (0.0-0.7) Basophils # (Auto) 0.1 x10^3/uL (0.0-0.2) 0.0 x10^3/uL (0.0-0.2) Sodium Level 142 mmol/L (136-145) 138 mmol/L (136-145) Potassium Level 4.2 mmol/L (3.5-5.1) 4.4 mmol/L (3.5-5.1) Chloride Level 109 mmol/L (98-107) 106 mmol/L (98-107) Carbon Dioxide Level 29 mmol/L (21-32) 26 mmol/L (21-32) Anion Gap 4 (6-14) 6 (6-14) Blood Urea Nitrogen 18 mg/dL (8-26) 17 mg/dL (8-26) Creatinine 0.6 mg/dL (0.7-1.3) 0.7 mg/dL (0.7-1.3) Estimated GFR (Cockcroft-Gault) 132.8 111.2 BUN/Creatinine Ratio 30 (6-20) Glucose Level 105 mg/dL (70-99) 107 mg/dL (70-99) Calcium Level 8.2 mg/dL (8.5-10.1) 8.3 mg/dL (8.5-10.1) Total Bilirubin 1.8 mg/dL (0.2-1.0) Aspartate Amino Transf (AST/SGOT) 28 U/L (15-37) Alanine Aminotransferase (ALT/SGPT) 17 U/L (16-63) Alkaline Phosphatase 97 U/L (46-116) Total Protein 5.0 g/dL (6.4-8.2) Albumin 1.1 g/dL (3.4-5.0) Albumin/Globulin Ratio 0.3 (1.0-1.7) O2 Saturation 95 % (92-99) 96 % (92-99) Arterial Blood pH 7.49 (7.35-7.45) 7.46 (7.35-7.45) Arterial Blood pCO2 at Patient Temp 32 mmHg (35-46) 35 mmHg (35-46) Arterial Blood pO2 at Patient Temp 77 mmHg (65-108) 86 mmHg (65-108) Arterial Blood HCO3 24 mmol/L (21-28) 24 mmol/L (21-28) Arterial Blood Base Excess 1 mmol/L (-3-3) 1 mmol/L (-3-3) FiO2 30 30 Lactic Acid Level 1.2 mmol/L (0.4-2.0) Test 05/13/17 08:40 Glucose (Fingerstick) 107 mg/dL (70-99) Laboratory Tests Test 05/13/17 05:30 05/13/17 08:00 05/13/17 08:40 White Blood Count 19.7 x10^3/uL (4.0-11.0) Red Blood Count 2.81 x10^6/uL (4.30-5.70) Hemoglobin 9.4 g/dL (13.0-17.5) Hematocrit 27.2 % (39.0-53.0) Mean Corpuscular Volume 97 fL (79-100) Mean Corpuscular Hemoglobin 34 pg (25-35) Mean Corpuscular Hemoglobin Concent 35 g/dL (31-37) Red Cell Distribution Width 16.7 % (11.5-14.5) Platelet Count 314 x10^3/uL (140-400) Neutrophils (%) (Auto) 86 % (31-73) Lymphocytes (%) (Auto) 9 % (24-48) Monocytes (%) (Auto) 5 % (0-9) Eosinophils (%) (Auto) 1 % (0-3) Basophils (%) (Auto) 0 % (0-3) Neutrophils # (Auto) 16.9 x10^3uL (1.8-7.7) Lymphocytes # (Auto) 1.8 x10^3/uL (1.0-4.8) Monocytes # (Auto) 0.9 x10^3/uL (0.0-1.1) Eosinophils # (Auto) 0.1 x10^3/uL (0.0-0.7) Basophils # (Auto) 0.0 x10^3/uL (0.0-0.2) Sodium Level 138 mmol/L (136-145) Potassium Level 4.4 mmol/L (3.5-5.1) Chloride Level 106 mmol/L (98-107) Carbon Dioxide Level 26 mmol/L (21-32) Anion Gap 6 (6-14) Blood Urea Nitrogen 17 mg/dL (8-26) Creatinine 0.7 mg/dL (0.7-1.3) Estimated GFR (Cockcroft-Gault) 111.2 Glucose Level 107 mg/dL (70-99) Lactic Acid Level 1.2 mmol/L (0.4-2.0) Calcium Level 8.3 mg/dL (8.5-10.1) O2 Saturation 96 % (92-99) Arterial Blood pH 7.46 (7.35-7.45) Arterial Blood pCO2 at Patient Temp 35 mmHg (35-46) Arterial Blood pO2 at Patient Temp 86 mmHg (65-108) Arterial Blood HCO3 24 mmol/L (21-28) Arterial Blood Base Excess 1 mmol/L (-3-3) FiO2 30 Glucose (Fingerstick) 107 mg/dL (70-99) I have reviewed the following CT of abdomen/pelvis reviewed with radiologist no new collections drains in place Assessment/Plan sepsis, improved EEG in progress continue supportive care d/w his son Problems: RON GROSS MD May 13, 2017 12:15
[2017-05-13] MEDS: fentaNYL PF VIAL 100 MCG/2 ML VIAL IV PRN (12:28)
--- NOTE | 2017-05-13 12:44 | RAD ---
CT of the abdomen and pelvis with contrast, 05/13/2017: History: Follow-up surgery for anastomotic leak, check for fluid collections Multidetector CT imaging was performed following an IV bolus injection of iodinated contrast material. No oral contrast material was administered. Comparison is made to a study from 05/05/2017. The images are partially degraded by multiple artifacts. An NG tube extends into the distal aspect of the stomach. There is a surgical drain extending into the left paracolic gutter. An additional surgical drain extends into the pelvis. There is a third drain extending into the subcutaneous soft tissues of the anterior abdominal wall. A Wagner catheter extends into the urinary bladder. An ileostomy has been placed in the right lower quadrant. There is adjacent streaky edema and postsurgical gas bubbles in the subcutaneous soft tissues at this level. There is generalized mural thickening involving the small bowel. There is mild generalized streaky edema in the mesentery. A rectal stump is evident. There is a small residual fluid collection in the deep pelvis on the left. The pelvic drain extends through this fluid collection. No other discrete abdominal or pelvic fluid collection is seen. There is minimal residual pneumoperitoneum on a postsurgical basis. The liver is unremarkable. The gallbladder is obscured by motion related artifacts. The pancreas is unremarkable. The spleen is of normal size. No renal abnormality is detected. There is moderate calcific plaquing of the abdominal aorta and its branches. There are worsening moderate bibasilar opacities compatible with a small amount of pleural fluid with moderate underlying atelectasis and consolidation posteriorly in both lower lobes. There is generalized subcutaneous edema and scrotal wall edema, compatible with anasarca. IMPRESSION: 1. Interval placement of a right lower quadrant ileostomy. 2. Small residual fluid collection in the deep pelvis containing a surgical drain. 3. Anasarca. 4. Generalized small bowel mural thickening has developed likely related to the generalized anasarca. Small bowel ischemia cannot be excluded. 5. Worsening bibasilar opacities due to a small amount of pleural fluid and moderate bilateral lower lobe atelectasis/consolidation. PQRS Compliance Statement: One or more of the following individualized dose reduction techniques were utilized for this examination: 1. Automated exposure control 2. Adjustment of the mA and/or kV according to patient size 3. Use of iterative reconstruction technique
--- NOTE | 2017-05-13 12:50 | RAD ---
CT of the head without contrast, 05/13/2017: History: Postoperative mental status change Comparison is made to a study from 01/31/2017. There is mild cerebral atrophy. The ventricles are within normal limits in size. There is no shift of the midline structures. There is no evidence of acute intracranial hemorrhage or mass effect.. There is asymmetric prominence of the occipital horn of the left lateral ventricle, unchanged. There is a small left cerebellar lucency not evident on the previous study. Heterogeneous densities in the deja are probably artifactual. No abnormal extra-axial fluid collection or mass is seen. IMPRESSION: 1. Cerebral atrophy. 2. 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 PQRS Compliance Statement: One or more of the following individualized dose reduction techniques were utilized for this examination: 1. Automated exposure control 2. Adjustment of the mA and/or kV according to patient size 3. Use of iterative reconstruction technique
[2017-05-13] MEDS: TPN PER PHARMACY MC PRN (13:17)
--- NOTE | 2017-05-13 13:18 | PATHOLOGY ---
PATHOLOGY REPORT * * * * * * * * FINAL DIAGNOSIS: A. Segment of small intestine and colon with attached mesentery/mesocolon, ileocolic anastomosis resection: - Perforation of ileocolic anastomosis with serosal acute inflammatory exudate. - Serosal reactive fibrosis and chronic inflammation with focal foreign body granulomatous reaction. - Focal neuronal hypertrophy of colon. B. Segment of small intestine and attached mesentery, distal ileum resection: - Serosal acute inflammatory exudate. - Serosal reactive fibrosis and chronic inflammation with focal foreign body granulomatous reaction. - Focal chronic ischemic changes of small bowel mucosa. (JPM/db; 05/13/2017) REPORT ELECTRONICALLY SIGNED BY: Clemente Whitt M.D. DATE/TIME: 05/13/2017 13:18 * * * * * * * * GROSS PATHOLOGY: A. The specimen is received in formalin, labeled "Gibsonileocolic anastomosis" is a segment of intestine measuring 11.7 cm in length by 4.2 cm in circumference. The serosa is knight-pink, smooth, and displays a 6.0 x 2.7 cm area of fibrous exudate on one end of the specimen. There is a 2 x 1.7 cm perforation located 3.2 cm from the closest resection margin. The mesentery runs the entire length of the specimen and measures up to 3.6 cm in thickness. The specimen is opened to reveal a knight-pink mucosa with flattened folds and multifocal edema. Sectioning through the specimen reveals intestinal wall ranges in thickness from 0.2 up to 0.8 cm. Identified within the mesentery is one possible lymph node measuring 1 x 0.7 x 0.6 cm. Section code: A1 and A2-opposite resection margins, A3 through A6-business services representative sections of specimen submitted sequentially from one end to the opposite with sections adjacent to perforation submitted in A5 and one possible lymph node submitted in A6. (DRL; 05/07/2017) B. The specimen is received in formalin, labeled "Gibsondistal ileum" is a segment of ileum measuring 7.7 cm in length by 6.7 cm in circumference. The serosa is pink to red and mostly covered with fibrinous exudate. The mesentery runs the entire length of the specimen and measures up to 3.6 cm in thickness. Specimen is opened to reveal a knight-brown mucosa with normal folds. Sectioning through the specimen reveals the intestinal wall ranges in thickness from 0.6 up to 0.8 cm Section code: B1 and B2-opposite resection margins, B3 through B6-business services representative sections of specimen specimen sequentially from one end to the opposite. (DRL; 05/07/2017) INITIAL CPT CODE(S): A; 05398 B; 64216 Professional services [place] [address] Technical services performed by [facility] at [address] [place] [address], [facility] [address], [place] [address]. SPECIMEN(S) RECEIVED: A.Ileocolic anastomosis B.Distal ileum CLINICAL HISTORY: Perforated viscous PATIENT: ROMANA JOINER /AGE: 9 1945 (Age: 71) PATIENT #: [id number] ALT CASE #: SPECIMEN COLLECTION DATE: 05/05/2017 SPECIMEN RECEIVED DATE: 05/06/2017 [facility] - [address] [place] [address] - PHONE: [phone] * * * END OF REPORT * * *
--- NOTE | 2017-05-13 13:43 | PDOC ---
DATE DATE OF STUDY 05/13/17 EEG#: Current Medications Medications (Trade) Dose Ordered Sig/Ofelia Route PRN Reason Start Time Stop Time Status Last Admin Dose Admin Albumin Human 100 ml @ 100 mls/hr 1X ONCE IV 05/12/17 21:00 05/12/17 21:59 DC 05/12/17 21:05 100 MLS/HR Alteplase, Recombinant (Cathflo) 2 mg 1X ONCE INT CAT 05/12/17 21:00 05/12/17 21:01 DC 05/12/17 21:04 2 MG Fentanyl Citrate (Fentanyl 2ml Vial) 50 mcg PRN Q2HR PRN IV PAIN 05/13/17 09:45 05/13/17 12:28 50 MCG Iohexol (Omnipaque 300 Mg/ml) 75 ml 1X ONCE IV 05/13/17 09:30 05/13/17 09:31 DC 05/13/17 09:16 75 ML Sodium Chloride 40 meq/Sodium Acetate 50 meq/ Potassium Acetate 90 meq/Potassium Phosphate 20 mmol/ Magnesium Sulfate 15 meq/Calcium Gluconate 5 meq/ Multivitamins 10 ml/Chromium/ Copper/Manganese/ Seleni/Zn 1 ml/ Total Parenteral Nutrition/Amino Acids/Dextrose/ Fat Emulsion Intravenous 1,512 ml @ 63 mls/hr TPN CONT IV 05/12/17 22:00 05/13/17 21:59 05/12/17 21:57 63 MLS/HR EEG STUDY RESULTS EEG STUDY RESULTS OBJECT: The patient is a 71-year-old male with altered mental status DESCRIPTION: This is a digital recording. Electrodes are placed according to the International 10-20 system. Bipolar and referential montages are available. Activation procedures typically include hyperventilation and intermittent photic simulation. INTERPRETATION: The waking background consists of 4-6-Hz., 50-100 V activity, symmetrically distributed over parietooccipital regions and reactive to eye opening. Hyperventilation is not performed, and intermittent photic stimulation is non-contributory. Sleep is not achieved IMPRESSION: This electroencephalogram is abnormal because of a moderate, diffuse disturbance of cerebral activity consistent with any of a variety of toxic metabolic encephalopathy. There is no focal, paroxysmal, or epileptiform activity. MOISES MILLIGAN MD May 13, 2017 13:43
[2017-05-13] MEDS: PROPOFOL 100 ML IV PRN (13:59)
--- NOTE | 2017-05-13 14:04 | PDOC ---
PROGRESS NOTES Chief Complaint Chief Complaint Crohn's dz s/p R part colectomy Abd pain Pelvic abscess Respir failure Hypotension Leukocytosis Thrombocytopenia Afib with RVR CHF Hypokalemia Coagulopathy History of Present Illness History of Present Illness Seen in the ICU and remains intubated. Vent settings are AC/16/500/30%. Increased level of alertness today compared to yesterday. Vitals Vitals Vital Signs Date Time Temp Pulse Resp B/P (MAP) Pulse Ox O2 Delivery O2 Flow Rate FiO2 05/13/17 13:12 100 Ventilator 05/13/17 13:00 100 33 111/71 (84) 05/13/17 12:28 30.0 05/13/17 12:15 99.6 99.6 Physical Exam General: No acute distress, Other (unresponsive though awake) Heart: Other (tachy) Lungs: Other (DECREASE BS, ERYTHEMA, DRAINS) Abdomen: Soft, Other (dressings intact, LASHAUN drains with serosanguineous output) Extremities: No clubbing, Other (2-3+ edema) Skin: No rashes, Other (Moderate scrotal edema) Labs LABS Laboratory Tests Test 05/13/17 05:30 05/13/17 08:00 05/13/17 08:40 White Blood Count 19.7 x10^3/uL (4.0-11.0) Red Blood Count 2.81 x10^6/uL (4.30-5.70) Hemoglobin 9.4 g/dL (13.0-17.5) Hematocrit 27.2 % (39.0-53.0) Mean Corpuscular Volume 97 fL (79-100) Mean Corpuscular Hemoglobin 34 pg (25-35) Mean Corpuscular Hemoglobin Concent 35 g/dL (31-37) Red Cell Distribution Width 16.7 % (11.5-14.5) Platelet Count 314 x10^3/uL (140-400) Neutrophils (%) (Auto) 86 % (31-73) Lymphocytes (%) (Auto) 9 % (24-48) Monocytes (%) (Auto) 5 % (0-9) Eosinophils (%) (Auto) 1 % (0-3) Basophils (%) (Auto) 0 % (0-3) Neutrophils # (Auto) 16.9 x10^3uL (1.8-7.7) Lymphocytes # (Auto) 1.8 x10^3/uL (1.0-4.8) Monocytes # (Auto) 0.9 x10^3/uL (0.0-1.1) Eosinophils # (Auto) 0.1 x10^3/uL (0.0-0.7) Basophils # (Auto) 0.0 x10^3/uL (0.0-0.2) Sodium Level 138 mmol/L (136-145) Potassium Level 4.4 mmol/L (3.5-5.1) Chloride Level 106 mmol/L (98-107) Carbon Dioxide Level 26 mmol/L (21-32) Anion Gap 6 (6-14) Blood Urea Nitrogen 17 mg/dL (8-26) Creatinine 0.7 mg/dL (0.7-1.3) Estimated GFR (Cockcroft-Gault) 111.2 Glucose Level 107 mg/dL (70-99) Lactic Acid Level 1.2 mmol/L (0.4-2.0) Calcium Level 8.3 mg/dL (8.5-10.1) O2 Saturation 96 % (92-99) Arterial Blood pH 7.46 (7.35-7.45) Arterial Blood pCO2 at Patient Temp 35 mmHg (35-46) Arterial Blood pO2 at Patient Temp 86 mmHg (65-108) Arterial Blood HCO3 24 mmol/L (21-28) Arterial Blood Base Excess 1 mmol/L (-3-3) FiO2 30 Glucose (Fingerstick) 107 mg/dL (70-99) Review of Systems Review of Systems Patient unresponsive to speech. Does not appear nauseated or in acute distress. Patient resting comfortably in bed. Assessment and Plan Assessmemt and Plan Assessment: s/p R colectomy Crohn's dz s/p R part colectomy Abd pain Pelvic abscess Respir failure Hypotension Leukocytosis Thrombocytopenia Afib with RVR CHF Hypokalemia Coagulopathy Plan: 1. Respiratory failure patient is vented. Pulm following (ventilator setting AC/16/500/30% PEEP 5.0) 2. Leukocytosis: reactive, c/w infection. 19.7. Continuing to monitor. Cont abx per ID recommendation. 3. Cont to monitor for hypokalemia and replete per protocol 4. Cont GI prophylaxis PPI 5. Discussed plan with nursing staff 6. Appreciate the assistance of the subspecialties in this case 7. Patient still intubated though showing signs of improvement. 8. Cont wound care. Problems: Comment Review of Relevant I have reviewed the following items manuel (where applicable) has been applied. Labs Laboratory Tests Test 05/12/17 05:37 05/12/17 08:00 05/13/17 05:30 05/13/17 08:00 White Blood Count 17.0 x10^3/uL (4.0-11.0) 19.7 x10^3/uL (4.0-11.0) Red Blood Count 2.84 x10^6/uL (4.30-5.70) 2.81 x10^6/uL (4.30-5.70) Hemoglobin 9.3 g/dL (13.0-17.5) 9.4 g/dL (13.0-17.5) Hematocrit 28.2 % (39.0-53.0) 27.2 % (39.0-53.0) Mean Corpuscular Volume 99 fL (79-100) 97 fL (79-100) Mean Corpuscular Hemoglobin 33 pg (25-35) 34 pg (25-35) Mean Corpuscular Hemoglobin Concent 33 g/dL (31-37) 35 g/dL (31-37) Red Cell Distribution Width 17.4 % (11.5-14.5) 16.7 % (11.5-14.5) Platelet Count 260 x10^3/uL (140-400) 314 x10^3/uL (140-400) Neutrophils (%) (Auto) 85 % (31-73) 86 % (31-73) Lymphocytes (%) (Auto) 10 % (24-48) 9 % (24-48) Monocytes (%) (Auto) 5 % (0-9) 5 % (0-9) Eosinophils (%) (Auto) 1 % (0-3) 1 % (0-3) Basophils (%) (Auto) 0 % (0-3) 0 % (0-3) Neutrophils # (Auto) 14.4 x10^3uL (1.8-7.7) 16.9 x10^3uL (1.8-7.7) Lymphocytes # (Auto) 1.6 x10^3/uL (1.0-4.8) 1.8 x10^3/uL (1.0-4.8) Monocytes # (Auto) 0.8 x10^3/uL (0.0-1.1) 0.9 x10^3/uL (0.0-1.1) Eosinophils # (Auto) 0.1 x10^3/uL (0.0-0.7) 0.1 x10^3/uL (0.0-0.7) Basophils # (Auto) 0.1 x10^3/uL (0.0-0.2) 0.0 x10^3/uL (0.0-0.2) Sodium Level 142 mmol/L (136-145) 138 mmol/L (136-145) Potassium Level 4.2 mmol/L (3.5-5.1) 4.4 mmol/L (3.5-5.1) Chloride Level 109 mmol/L (98-107) 106 mmol/L (98-107) Carbon Dioxide Level 29 mmol/L (21-32) 26 mmol/L (21-32) Anion Gap 4 (6-14) 6 (6-14) Blood Urea Nitrogen 18 mg/dL (8-26) 17 mg/dL (8-26) Creatinine 0.6 mg/dL (0.7-1.3) 0.7 mg/dL (0.7-1.3) Estimated GFR (Cockcroft-Gault) 132.8 111.2 BUN/Creatinine Ratio 30 (6-20) Glucose Level 105 mg/dL (70-99) 107 mg/dL (70-99) Calcium Level 8.2 mg/dL (8.5-10.1) 8.3 mg/dL (8.5-10.1) Total Bilirubin 1.8 mg/dL (0.2-1.0) Aspartate Amino Transf (AST/SGOT) 28 U/L (15-37) Alanine Aminotransferase (ALT/SGPT) 17 U/L (16-63) Alkaline Phosphatase 97 U/L (46-116) Total Protein 5.0 g/dL (6.4-8.2) Albumin 1.1 g/dL (3.4-5.0) Albumin/Globulin Ratio 0.3 (1.0-1.7) O2 Saturation 95 % (92-99) 96 % (92-99) Arterial Blood pH 7.49 (7.35-7.45) 7.46 (7.35-7.45) Arterial Blood pCO2 at Patient Temp 32 mmHg (35-46) 35 mmHg (35-46) Arterial Blood pO2 at Patient Temp 77 mmHg (65-108) 86 mmHg (65-108) Arterial Blood HCO3 24 mmol/L (21-28) 24 mmol/L (21-28) Arterial Blood Base Excess 1 mmol/L (-3-3) 1 mmol/L (-3-3) FiO2 30 30 Lactic Acid Level 1.2 mmol/L (0.4-2.0) Test 05/13/17 08:40 Glucose (Fingerstick) 107 mg/dL (70-99) Laboratory Tests Test 05/13/17 05:30 05/13/17 08:00 05/13/17 08:40 White Blood Count 19.7 x10^3/uL (4.0-11.0) Red Blood Count 2.81 x10^6/uL (4.30-5.70) Hemoglobin 9.4 g/dL (13.0-17.5) Hematocrit 27.2 % (39.0-53.0) Mean Corpuscular Volume 97 fL (79-100) Mean Corpuscular Hemoglobin 34 pg (25-35) Mean Corpuscular Hemoglobin Concent 35 g/dL (31-37) Red Cell Distribution Width 16.7 % (11.5-14.5) Platelet Count 314 x10^3/uL (140-400) Neutrophils (%) (Auto) 86 % (31-73) Lymphocytes (%) (Auto) 9 % (24-48) Monocytes (%) (Auto) 5 % (0-9) Eosinophils (%) (Auto) 1 % (0-3) Basophils (%) (Auto) 0 % (0-3) Neutrophils # (Auto) 16.9 x10^3uL (1.8-7.7) Lymphocytes # (Auto) 1.8 x10^3/uL (1.0-4.8) Monocytes # (Auto) 0.9 x10^3/uL (0.0-1.1) Eosinophils # (Auto) 0.1 x10^3/uL (0.0-0.7) Basophils # (Auto) 0.0 x10^3/uL (0.0-0.2) Sodium Level 138 mmol/L (136-145) Potassium Level 4.4 mmol/L (3.5-5.1) Chloride Level 106 mmol/L (98-107) Carbon Dioxide Level 26 mmol/L (21-32) Anion Gap 6 (6-14) Blood Urea Nitrogen 17 mg/dL (8-26) Creatinine 0.7 mg/dL (0.7-1.3) Estimated GFR (Cockcroft-Gault) 111.2 Glucose Level 107 mg/dL (70-99) Lactic Acid Level 1.2 mmol/L (0.4-2.0) Calcium Level 8.3 mg/dL (8.5-10.1) O2 Saturation 96 % (92-99) Arterial Blood pH 7.46 (7.35-7.45) Arterial Blood pCO2 at Patient Temp 35 mmHg (35-46) Arterial Blood pO2 at Patient Temp 86 mmHg (65-108) Arterial Blood HCO3 24 mmol/L (21-28) Arterial Blood Base Excess 1 mmol/L (-3-3) FiO2 30 Glucose (Fingerstick) 107 mg/dL (70-99) Microbiology 05/06/17 Blood Culture - Final, Complete NO GROWTH AFTER 5 DAYS 05/05/17 Anaerobic/Aerobic Culture - Final, Complete 05/05/17 Anaerobic Culture Result 1 (ENOCH) - Final, Complete 05/05/17 Aerobic Culture - Final, Complete 05/05/17 Aerobic Culture Result 1 (ENOCH) - Final, Complete 05/05/17 Aerobic Culture Result 2 (ENOCH) - Final, Complete 05/05/17 Aerobic Culture Result 3 (ENOCH) - Final, Complete 05/05/17 Antimicrobic Susceptibility - Final, Complete Medications Current Medications Ondansetron HCl (Zofran) 4 mg PRN Q6HRS PRN IV NAUSEA/VOMITING; Start 04/29/17 at 07:00; Stop 04/29/17 at 17:32; Status DC Fentanyl Citrate (Fentanyl 2ml Vial) 25 mcg PRN Q5MIN PRN IV MILD PAIN; Start 04/29/17 at 07:00; Stop 04/30/17 at 06:59; Status DC Fentanyl Citrate (Fentanyl 2ml Vial) 50 mcg PRN Q5MIN PRN IV MODERATE PAIN Last administered on 04/29/17 16:59; Start 04/29/17 at 07:00; Stop 04/30/17 at 06:59; Status DC Morphine Sulfate 1 mg PRN Q10MIN PRN IV SEVERE PAIN Last administered on 16:41; Start 04/29/17 at 07:00; Stop 04/30/17 at 06:59; Status DC Ringer's Solution 1,000 ml @ 30 mls/hr Q24H IV Last administered on 04/29/17 10:42; Start 04/29/17 at 07:00; Stop 04/29/17 at 18:59; Status DC Lidocaine HCl 2 ml PRN 1X PRN ID PRIOR TO IV START; Start 04/29/17 at 07:00; Stop 04/30/17 at 06:59; Status DC Hydromorphone HCl (Dilaudid) 0.5 mg PRN Q10MIN PRN IV SEV PAIN, Second choice; Start 04/29/17 at 07:00; Stop 04/30/17 at 06:59; Status DC Prochlorperazine Edisylate (Compazine) 5 mg PACU PRN PRN IV NAUSEA, MRX1; Start 04/29/17 at 07:00; Stop 04/30/17 at 06:59; Status DC Cefoxitin Sodium 1 gm/Sodium Chloride 50 ml @ 100 mls/hr 1X ONCE IV Last administered on 04/29/17 12:00; Start 04/29/17 at 06:00; Stop 04/29/17 at 06:29 ; Status DC Dexamethasone Sodium Phosphate (Decadron) 20 mg STK-MED ONCE .ROUTE ; Start at 10:47; Stop 04/29/17 at 10:48; Status DC Ondansetron HCl (Zofran) 4 mg STK-MED ONCE .ROUTE ; Start 04/29/17 at 10:47; Stop 04/29/17 at 10:48; Status DC Propofol 20 ml @ As Directed STK-MED ONCE IV ; Start 04/29/17 at 10:47; Stop at 10:48; Status DC Lidocaine HCl (Lidocaine Pf 2% Vial) 5 ml STK-MED ONCE .ROUTE ; Start 04/29/17 at 10:47; Stop 04/29/17 at 10:48; Status DC Desflurane (Suprane) 60 ml STK-MED ONCE IH ; Start 04/29/17 at 10:47; Stop 04/29 at 10:48; Status DC Fentanyl Citrate (Fentanyl 2ml Vial) 100 mcg STK-MED ONCE .ROUTE ; Start at 10:47; Stop 04/29/17 at 10:48; Status DC Rocuronium Whitefish (Zemuron) 50 mg STK-MED ONCE .ROUTE ; Start 04/29/17 at 10:47 ; Stop 04/29/17 at 10:48; Status DC Phenylephrine HCl 1 mg STK-MED ONCE IV ; Start 04/29/17 at 11:52; Stop 04/29/17 at 11:53; Status DC Hydrocortisone Sodium Succinate (Solu-CORTEF) 100 mg STK-MED ONCE .ROUTE ; Start 04/29/17 at 12:04; Stop 04/29/17 at 12:05; Status DC Fentanyl Citrate (Fentanyl 2ml Vial) 100 mcg STK-MED ONCE .ROUTE ; Start at 12:21; Stop 04/29/17 at 12:22; Status DC Rocuronium Whitefish (Zemuron) 50 mg STK-MED ONCE .ROUTE ; Start 04/29/17 at 12:53 ; Stop 04/29/17 at 12:54; Status DC Labetalol HCl (Normodyne) 20 mg STK-MED ONCE .ROUTE ; Start 04/29/17 at 12:53; Stop 04/29/17 at 12:54; Status DC Fentanyl Citrate (Fentanyl 2ml Vial) 100 mcg STK-MED ONCE .ROUTE ; Start at 12:55; Stop 04/29/17 at 12:56; Status DC Esmolol HCl (Brevibloc) 100 mg STK-MED ONCE IV ; Start 04/29/17 at 12:59; Stop 04/29/17 at 13:00; Status DC Morphine Sulfate 10 mg STK-MED ONCE .ROUTE ; Start 04/29/17 at 13:03; Stop 04/29 at 13:04; Status DC Rocuronium Whitefish (Zemuron) 100 mg STK-MED ONCE .ROUTE ; Start 04/29/17 at 14: 10; Stop 04/29/17 at 14:11; Status DC Fentanyl Citrate (Fentanyl 2ml Vial) 100 mcg STK-MED ONCE .ROUTE ; Start at 15:08; Stop 04/29/17 at 15:09; Status DC Glycopyrrolate (Robinul) 1 mg STK-MED ONCE .ROUTE ; Start 04/29/17 at 15:29; Stop 04/29/17 at 15:30; Status DC Neostigmine Methylsulfate 5 mg STK-MED ONCE .ROUTE ; Start 04/29/17 at 15:29; Stop 04/29/17 at 15:30; Status DC Esmolol HCl (Brevibloc) 100 mg STK-MED ONCE IV ; Start 04/29/17 at 16:05; Stop 04/29/17 at 16:06; Status DC Diphenhydramine HCl (Benadryl) 25 mg PRN Q6HRS PRN IV ITCHING Last administered on 05/04/17 20:36; Start 04/29/17 at 16:30 Enoxaparin Sodium (Lovenox 40mg Syringe) 40 mg Q24H SQ Last administered on 05/10 06:27; Start 04/30/17 at 06:00; Stop 05/10/17 at 20:48; Status DC Sodium Chloride (Normal Saline Flush) 3 ml QSHIFT PRN IV AFTER MEDS AND BLOOD DRAWS; Start 04/29/17 at 16:30 Potassium Chloride/Sodium Chloride 1,000 ml @ 100 mls/hr Q10H IV Last administered on 05/01/17 00:17; Start 04/29/17 at 16:26; Stop 05/01/17 at 18:31 ; Status DC Hydromorphone HCl 30 ml @ 0 mls/hr CONT PRN PRN IV PROTOCOL Last administered on 04/30/17 18:01; Start 04/29/17 at 16:30; Stop 05/03/17 at 09:45; Status DC Ondansetron HCl (Zofran) 4 mg PRN Q6HRS PRN IV NAUESA, 1ST CHOICE; Start at 16:30; Stop 05/02/17 at 12:27; Status DC Throat Lozenges (Chloraseptic) 1 spray PRN Q2HR PRN PO SORE THROAT; Start 04/29 at 16:45; Stop 05/05/17 at 11:28; Status DC Throat Lozenges (Chloraseptic) 1 spray PRN Q2HR PRN PO SORE THROAT; Start 04/29 at 16:45; Stop 04/29/17 at 17:32; Status DC Digoxin (Lanoxin) 125 mcg DAILY PO Last administered on 05/01/17 09:32; Start 04/30/17 at 09:00; Stop 05/01/17 at 14:05; Status DC Prednisone (Prednisone) 10 mg DAILY PO ; Start 04/30/17 at 09:00; Stop 04/30/17 at 16:33; Status DC Methylprednisolone Sodium Succinate (SOLU-Medrol 40MG VIAL) 15 mg DAILY IV Last administered on 05/02/17 07:59; Start 04/30/17 at 11:00; Stop 05/02/17 at 14:00; Status DC Pantoprazole Sodium (Protonix Vial) 40 mg DAILYAC IVP Last administered on 05/02 07:57; Start 04/30/17 at 17:00; Stop 05/02/17 at 13:45; Status DC Digoxin (Lanoxin) 250 mcg DAILY PO Last administered on 05/05/17 09:29; Start 05/02/17 at 09:00; Stop 05/06/17 at 14:54; Status DC Sodium Chloride 1,000 ml @ 100 mls/hr Q10H IV Last administered on 05/04/17 03:25; Start 05/01/17 at 18:30; Stop 05/04/17 at 15:20; Status DC Nicotine (Nicoderm Cq 14mg) 1 patch PRN DAILY PRN TD SMOKING CESSATION Last administered on 05/04/17 11:15; Start 05/02/17 at 06:45 Ondansetron HCl (Zofran) 4 mg PRN Q6HRS PRN IV NAUSEA/VOMITING Last administered on 05/05/17 09:36; Start 05/02/17 at 12:30 Acetaminophen/ Hydrocodone Bitart (Lortab 5/325) 1 tab PRN Q4HRS PRN PO MILD PAIN Last administered on 05/04/17 17:13; Start 05/02/17 at 12:30 Fentanyl Citrate (Fentanyl 2ml Vial) 50 mcg PRN Q2HR PRN IV MODERATE PAIN Last administered on 05/06/17 08:14; Start 05/02/17 at 12:30; Stop 05/06/17 at 10:55 ; Status DC Famotidine (Pepcid) 20 mg DAILY IVP Last administered on 05/03/17 09:01; Start 05/03/17 at 09:00; Stop 05/03/17 at 09:45; Status DC Hydromorphone HCl (Dilaudid) 1 mg PRN Q4HRS PRN IV SEVERE PAIN Last administered on 05/04/17 11:13; Start 05/03/17 at 09:45; Stop 05/06/17 at 10:55 ; Status DC Morphine Sulfate (Ms Contin) 15 mg BID PO Last administered on 05/04/17 21:35 ; Start 05/03/17 at 09:45; Stop 05/08/17 at 09:52; Status DC Metoprolol Tartrate (Lopressor) 12.5 mg Q6HRS PO Last administered on 11:14; Start 05/03/17 at 19:00; Stop 05/04/17 at 12:51; Status DC Info 1 each PRN DAILY PRN MC SEE COMMENTS Last administered on 05/13/17 13:17; Start 05/04/17 at 11:15 Metoprolol Tartrate (Lopressor) 25 mg BID PO ; Start 05/04/17 at 21:00; Stop at 14:54; Status DC Magnesium Sulfate/ Dextrose 50 ml @ 25 mls/hr 1X ONCE IV Last administered on 05/04/17 15:46; Start 05/04/17 at 16:00; Stop 05/04/17 at 17:59; Status DC Amino Acids/ Glycerin/ Electrolytes 1,000 ml @ 80 mls/hr [id number] IV Last administered on 05/05/17 05:32; Start 05/04/17 at 16:00; Stop 05/05/17 at 21:59 ; Status DC Amino Acids/ Glycerin/ Electrolytes 1,000 ml @ 80 mls/hr [id number] IV ; Start at 15:30; Status UNV Sodium Chloride 1,000 ml @ 100 mls/hr Q10H IV Last administered on 05/05/17 16:32; Start 05/04/17 at 16:00; Stop 05/06/17 at 01:03; Status DC Albumin Human 500 ml @ 100 mls/hr 1X ONCE IV Last administered on 05/05/17 00:05; Start 05/04/17 at 22:00; Stop 05/05/17 at 02:59; Status DC Lidocaine HCl (Glydo (Lidocaine) Jelly) 1 emelia 1X ONCE MM Last administered on 05/05/17 08:30; Start 05/05/17 at 08:30; Stop 05/05/17 at 08:35; Status DC Throat Lozenges (Chloraseptic) 1 spray PRN Q2HR PRN PO SORE THROAT; Start 05/05 at 08:30 Non-Formulary Medication 1 each DAILY PO ; Start 05/06/17 at 09:00; Stop at 09:00; Status DC Non-Formulary Medication 1 tab QHS PO ; Start 05/05/17 at 21:00; Stop 05/05/17 at 21:00; Status DC Benzocaine (Hurricaine One) 1 spray 1X ONCE MM Last administered on 05/05/17 10:30; Start 05/05/17 at 10:30; Stop 05/05/17 at 10:31; Status DC Throat Lozenges (Cepacol Sore Throat Lozenge) 1 west PRN Q2HRS PRN PO SORE THROAT; Start 05/05/17 at 11:00 Albumin Human 500 ml @ 100 mls/hr 1X ONCE IV Last administered on 05/05/17 13:24; Start 05/05/17 at 11:15; Stop 05/05/17 at 16:14; Status DC Sodium Chloride 1,000 ml @ 1,000 mls/hr 1X ONCE IV ; Start 05/05/17 at 11:30; Stop 05/05/17 at 12:29; Status DC Famotidine (Pepcid) 20 mg BID IVP Last administered on 05/13/17 08:34; Start at 12:00 Amiodarone HCl 900 mg/Dextrose 518 ml @ 0 mls/hr CONT PRN IV SEE I/O RECORD Last administered on 05/05/17 13:17; Start 05/05/17 at 12:15; Stop 05/05/17 at 13:17; Status DC Amiodarone HCl 150 mg/Dextrose 103 ml @ 618 mls/hr 1X ONCE IV Last administered on 05/05/17 12:30; Start 05/05/17 at 12:30; Stop 05/05/17 at 12:39 ; Status DC Potassium Phosphate 13.6 mmol/Sodium Chloride 104.5333 ml @ 52.267 m... Q2H IV ; Start 05/05/17 at 14:30; Stop 05/05/17 at 16:29; Status DC Sodium Chloride 90 meq/Potassium Chloride 50 meq/ Potassium Phosphate 17 mmol/ Magnesium Sulfate 10 meq/Calcium Gluconate 5 meq/ Multivitamins 10 ml/Chromium/ Copper/Manganese/ Seleni/Zn 1 ml/ Total Parenteral Nutrition/Amino Acids/ Dextrose/ Fat Emulsion Intravenous 1,512 ml @ 63 mls/hr TPN CONT IV Last administered on 05/05/17 21:46; Start 05/05/17 at 22:00; Stop 05/06/17 at 21:59 ; Status DC Iohexol (Omnipaque 300 Mg/ml) 60 ml 1X ONCE IV Last administered on 05/05/17 14:50; Start 05/05/17 at 14:45; Stop 05/05/17 at 14:46; Status DC Info (Do NOT chart on this entry -- for MONITORING) 1 each PRN DAILY PRN MC SEE COMMENTS; Start 05/05/17 at 14:45; Stop 05/07/17 at 14:45; Status DC Sodium Chloride 1,000 ml @ 2,000 mls/hr 1X ONCE IV Last administered on 16:33; Start 05/05/17 at 16:00; Stop 05/05/17 at 16:29; Status DC Vancomycin HCl (Vanco Per Pharmacy) 1 each PRN DAILY PRN MC SEE COMMENTS Last administered on 05/08/17 09:08; Start 05/05/17 at 16:00; Stop 05/09/17 at 14:01 ; Status DC Piperacillin Sod/ Tazobactam Sod (Zosyn Per Pharmacy) 1 each PRN DAILY PRN MC SEE COMMENTS; Start 05/05/17 at 16:00; Stop 05/10/17 at 07:20; Status DC Piperacillin Sod/ Tazobactam Sod 4.5 gm/Sodium Chloride 100 ml @ 200 mls/hr Q6HRS IV Last administered on 05/09/17 13:02; Start 05/05/17 at 17:00; Stop 05/09/17 at 13:58; Status DC Vancomycin HCl 1.75 gm/Sodium Chloride 500 ml @ 250 mls/hr 1X ONCE IV Last administered on 05/05/17 16:30; Start 05/05/17 at 17:00; Stop 05/05/17 at 18:59 ; Status DC Potassium Chloride 50 ml @ 50 mls/hr Q1H IV Last administered on 05/05/17 16: 59; Start 05/05/17 at 16:30; Stop 05/05/17 at 19:29; Status DC Vancomycin HCl 1.25 gm/Sodium Chloride 250 ml @ 167 mls/hr Q12H IV Last administered on 05/06/17 18:57; Start 05/06/17 at 06:00; Stop 05/07/17 at 07:47 ; Status DC Vancomycin HCl 1 each 1X ONCE MC Last administered on 05/07/17 05:30; Start 05/07/17 at 05:30; Stop 05/07/17 at 05:31; Status DC Norepinephrine Bitartrate 250 ml @ As Directed STK-MED ONCE IV ; Start at 16:22; Stop 05/05/17 at 16:23; Status DC Norepinephrine Bitartrate 250 ml @ 0 mls/hr CONT PRN IV SEE I/O RECORD Last administered on 05/10/17 17:53; Start 05/05/17 at 16:45 Vasopressin 40 unit/Dextrose 102 ml @ 6 mls/hr CONT PRN IV SEE I/O RECORD Last administered on 05/09/17 19:25; Start 05/05/17 at 17:00 Phenylephrine HCl 20 mg/Sodium Chloride 252 ml @ 0 mls/hr CONT PRN IV SEE I/O RECORD Last administered on 05/06/17 06:22; Start 05/05/17 at 17:00; Stop 05/06 at 08:00; Status DC Propofol 0 ml @ As Directed STK-MED ONCE IV ; Start 05/05/17 at 17:21; Stop at 17:22; Status DC Lidocaine HCl (Lidocaine Pf 2% Vial) 5 ml STK-MED ONCE .ROUTE ; Start 05/05/17 at 17:21; Stop 05/05/17 at 17:22; Status DC Fentanyl Citrate (Fentanyl 2ml Vial) 100 mcg STK-MED ONCE .ROUTE ; Start at 17:22; Stop 05/05/17 at 17:23; Status DC Succinylcholine Chloride (Anectine) 200 mg STK-MED ONCE .ROUTE ; Start 05/05/17 at 17:22; Stop 05/05/17 at 17:23; Status DC Rocuronium Whitefish (Zemuron) 50 mg STK-MED ONCE .ROUTE ; Start 05/05/17 at 17:22 ; Stop 05/05/17 at 17:23; Status DC Etomidate (Amidate) 20 mg STK-MED ONCE IV ; Start 05/05/17 at 17:25; Stop at 17:26; Status DC Desflurane (Suprane) 60 ml STK-MED ONCE IH ; Start 05/05/17 at 18:02; Stop 05/05 at 18:03; Status DC Rocuronium Whitefish (Zemuron) 50 mg STK-MED ONCE .ROUTE ; Start 05/05/17 at 18:52 ; Stop 05/05/17 at 18:53; Status DC Phenylephrine HCl (Bhargav-Synephrine Inj) 10 mg STK-MED ONCE .ROUTE ; Start at 19:53; Stop 05/05/17 at 19:54; Status DC Propofol 100 ml @ 0 mls/hr CONT PRN IV SEE I/O RECORD Last administered on 05/05 21:47; Start 05/05/17 at 21:30 Midazolam HCl 100 ml @ 0 mls/hr CONT PRN IV SEE I/O RECORD Last administered on 05/08/17 00:43; Start 05/05/17 at 22:00; Stop 05/13/17 at 09:33; Status DC Sodium Bicarbonate 150 meq/Dextrose 1,150 ml @ 100 mls/hr [id number] IV Last administered on 05/07/17 03:44; Start 05/06/17 at 02:00; Stop 05/07/17 at 10:32 ; Status DC Micafungin Sodium 100 mg/Dextrose 100 ml @ 100 mls/hr Q24H IV Last administered on 05/09/17 08:00; Start 05/06/17 at 08:00; Stop 05/09/17 at 13:58; Status DC Phenylephrine HCl 80 mg/Sodium Chloride 258 ml @ 0 mls/hr CONT PRN IV SEE I/O RECORD Last administered on 05/06/17 08:16; Start 05/06/17 at 08:00 Potassium Phosphate 10 mmol/ Sodium Chloride 103.3333 ml @ 51.667 m... Q2H IV Last administered on 05/06/17 16:11; Start 05/06/17 at 08:30; Stop 05/06/17 at 12:29; Status DC Fentanyl Citrate 30 ml @ 0 mls/hr CONT PRN PRN IV PROTOCOL Last administered on 05/10/17 10:47; Start 05/06/17 at 10:45; Stop 05/13/17 at 09:33; Status DC Naloxone HCl (Narcan) 0.4 mg PRN Q2MIN PRN IV SEE INSTRUCTIONS; Start 05/06/17 at 10:45 Sodium Chloride 1,000 ml @ 25 mls/hr Q24H IV Last administered on 05/10/17 10: 17; Start 05/06/17 at 11:00 Norepinephrine Bitartrate 250 ml @ 0 mls/hr CONT PRN IV SEE I/O RECORD; Start 05/06/17 at 10:45; Status Cancel Sodium Chloride 90 meq/Sodium Acetate 40 meq/ Potassium Chloride 50 meq/ Potassium Phosphate 25 mmol/ Magnesium Sulfate 15 meq/Calcium Gluconate 5 meq/ Multivitamins 10 ml/Chromium/ Copper/Manganese/ Seleni/Zn 1 ml/ Total Parenteral Nutrition/Amino Acids/Dextrose/ Fat Emulsion Intravenous 1,512 ml @ 63 mls/hr TPN CONT IV Last administered on 05/06/17 21:38; Start 05/06/17 at 22:00; Stop 05/07/17 at 21:59; Status DC Famotidine (Pepcid) 20 mg BID IVP ; Start 05/06/17 at 21:00; Status UNV Digoxin (Lanoxin) 250 mcg DAILY PO ; Start 05/06/17 at 16:00; Stop 05/08/17 at 10:59; Status DC Vancomycin HCl 1 gm/Sodium Chloride 250 ml @ 250 mls/hr Q8H IV Last administered on 05/09/17 12:59; Start 05/07/17 at 08:00; Stop 05/09/17 at 13:58; Status DC Vancomycin HCl 1 each 1X ONCE MC ; Start 05/08/17 at 07:30; Stop 05/08/17 at 07 :31; Status DC Potassium Phosphate 15 mmol/ Sodium Chloride 255 ml @ 127.5 mls/ hr 1X ONCE IV Last administered on 05/07/17 10:46; Start 05/07/17 at 10:30; Stop at 12:29; Status DC Sodium Chloride 1,000 ml @ 75 mls/hr [id number] IV Last administered on 05/13/17 11:10; Start 05/07/17 at 12:00 Sodium Chloride 90 meq/Sodium Acetate 40 meq/ Potassium Chloride 50 meq/ Potassium Phosphate 25 mmol/ Magnesium Sulfate 15 meq/Calcium Gluconate 5 meq/ Multivitamins 10 ml/Chromium/ Copper/Manganese/ Seleni/Zn 1 ml/ Total Parenteral Nutrition/Amino Acids/Dextrose/ Fat Emulsion Intravenous 1,512 ml @ 63 mls/hr TPN CONT IV Last administered on 05/07/17 21:06; Start 05/07/17 at 22:00; Stop 05/08/17 at 21:59; Status DC Albumin Human 100 ml @ 100 mls/hr 1X ONCE IV Last administered on 05/07/17 21:06; Start 05/07/17 at 20:45; Stop 05/07/17 at 21:44; Status DC Potassium Phosphate 15 mmol/ Sodium Chloride 255 ml @ 85 mls/hr Q2H IV Last administered on 05/07/17 21:55; Start 05/07/17 at 22:00; Stop 05/07/17 at 23:59 ; Status DC Digoxin (Lanoxin) 250 mcg DAILY IV Last administered on 05/13/17 08:33; Start 05/08/17 at 11:15 Sodium Chloride 90 meq/Sodium Acetate 40 meq/ Potassium Chloride 50 meq/ Potassium Phosphate 20 mmol/ Magnesium Sulfate 15 meq/Calcium Gluconate 5 meq/ Multivitamins 10 ml/Chromium/ Copper/Manganese/ Seleni/Zn 1 ml/ Total Parenteral Nutrition/Amino Acids/Dextrose/ Fat Emulsion Intravenous 1,512 ml @ 63 mls/hr TPN CONT IV Last administered on 05/08/17 21:39; Start 05/08/17 at 22:00; Stop 05/09/17 at 21:59; Status DC Chlorhexidine Gluconate (Peridex) 15 ml BID SWSP Last administered on 05/13/17 08:20; Start 05/08/17 at 21:00 Multi-Ingred Cream/Lotion/Oil/ Oint (Artificial Tears Eye Oint) 1 emelia PRN Q12HR PRN OU DRY EYE Last administered on 05/08/17 16:31; Start 05/08/17 at 14:45 Sodium Chloride 90 meq/Sodium Acetate 40 meq/ Potassium Acetate 70 meq/ Potassium Phosphate 20 mmol/ Magnesium Sulfate 15 meq/Calcium Gluconate 5 meq/ Multivitamins 10 ml/Chromium/ Copper/Manganese/ Seleni/Zn 1 ml/ Total Parenteral Nutrition/Amino Acids/Dextrose/ Fat Emulsion Intravenous 1,512 ml @ 63 mls/hr TPN CONT IV Last administered on 05/09/17 22:13; Start 05/09/17 at 22 :00; Stop 05/10/17 at 21:59; Status DC Ceftriaxone Sodium 1 gm/ Sodium Chloride 50 ml @ 100 mls/hr Q24H IV Last administered on 05/11/17 15:11; Start 05/09/17 at 14:00; Stop 05/12/17 at 08:25; Status DC Sodium Chloride 60 meq/Sodium Acetate 50 meq/ Potassium Acetate 90 meq/ Potassium Phosphate 20 mmol/ Magnesium Sulfate 15 meq/Calcium Gluconate 5 meq/ Multivitamins 10 ml/Chromium/ Copper/Manganese/ Seleni/Zn 1 ml/ Total Parenteral Nutrition/Amino Acids/Dextrose/ Fat Emulsion Intravenous 1,512 ml @ 63 mls/hr TPN CONT IV Last administered on 05/10/17 21:24; Start 05/10/17 at 22 :00; Stop 05/11/17 at 21:59; Status DC Enoxaparin Sodium (Lovenox 40mg Syringe) 40 mg Q24H SQ Last administered on 05/12 21:04; Start 05/10/17 at 21:00 Sodium Chloride 40 meq/Sodium Acetate 50 meq/ Potassium Acetate 90 meq/ Potassium Phosphate 20 mmol/ Magnesium Sulfate 15 meq/Calcium Gluconate 5 meq/ Multivitamins 10 ml/Chromium/ Copper/Manganese/ Seleni/Zn 1 ml/ Total Parenteral Nutrition/Amino Acids/Dextrose/ Fat Emulsion Intravenous 1,512 ml @ 63 mls/hr TPN CONT IV Last administered on 05/11/17 20:42; Start 05/11/17 at 22 :00; Stop 05/12/17 at 21:59; Status DC Micafungin Sodium 100 mg/Dextrose 100 ml @ 100 mls/hr Q24H IV Last administered on 05/13/17 11:18; Start 05/11/17 at 12:00 Piperacillin Sod/ Tazobactam Sod 3.375 gm/Sodium Chloride 50 ml @ 100 mls/hr Q6HRS IV Last administered on 05/13/17 12:35; Start 05/12/17 at 09:00 Sodium Chloride 40 meq/Sodium Acetate 50 meq/ Potassium Acetate 90 meq/ Potassium Phosphate 20 mmol/ Magnesium Sulfate 15 meq/Calcium Gluconate 5 meq/ Multivitamins 10 ml/Chromium/ Copper/Manganese/ Seleni/Zn 1 ml/ Total Parenteral Nutrition/Amino Acids/Dextrose/ Fat Emulsion Intravenous 1,512 ml @ 63 mls/hr TPN CONT IV Last administered on 05/12/17 21:57; Start 05/12/17 at 22 :00; Stop 05/13/17 at 21:59 Albumin Human 100 ml @ 100 mls/hr 1X ONCE IV Last administered on 05/12/17 21 :05; Start 05/12/17 at 21:00; Stop 05/12/17 at 21:59; Status DC Alteplase, Recombinant (Cathflo) 2 mg 1X ONCE INT CAT Last administered on 05/12 21:04; Start 05/12/17 at 21:00; Stop 05/12/17 at 21:01; Status DC Iohexol (Omnipaque 300 Mg/ml) 75 ml 1X ONCE IV Last administered on 05/13/17 09:16; Start 05/13/17 at 09:30; Stop 05/13/17 at 09:31; Status DC Info (Do NOT chart on this entry -- for MONITORING) 1 each PRN DAILY PRN MC SEE COMMENTS; Start 05/13/17 at 07:45; Stop 05/15/17 at 07:44 Fentanyl Citrate (Fentanyl 2ml Vial) 100 mcg STK-MED ONCE .ROUTE ; Start at 09:26; Stop 05/13/17 at 09:27; Status DC Fentanyl Citrate (Fentanyl 2ml Vial) 25 mcg PRN Q2HR PRN IV PAIN; Start at 09:30 Fentanyl Citrate (Fentanyl 2ml Vial) 50 mcg PRN Q2HR PRN IV PAIN Last administered on 05/13/17t 12:28; Start 05/13/17 at 09:45 Sodium Chloride 40 meq/Sodium Acetate 50 meq/ Potassium Acetate 90 meq/ Potassium Phosphate 20 mmol/ Magnesium Sulfate 15 meq/Calcium Gluconate 5 meq/ Multivitamins 10 ml/Chromium/ Copper/Manganese/ Seleni/Zn 1 ml/ Total Parenteral Nutrition/Amino Acids/Dextrose/ Fat Emulsion Intravenous 1,512 ml @ 63 mls/hr TPN CONT IV ; Start 05/13/17 at 22:00; Stop 05/14/17 at 21:59 Active Scripts Active Reported Melatonin 3 Mg Tablet 1 Tab PO QHS Move Free [employer] Tablet (Glucosam/Chond/Hyalu/Cf Borate) 1 Each Tablet 1 Each PO DAILY Digoxin 125 Mcg Tablet 1 Tab PO DAILY Prednisone 10 Mg Tablet 10 Mg PO DAILY Vitals/I & O Vital Sign - Last 24 Hours 05/12/17 05/12/17 05/12/17 05/12/17 14:00 15:00 15:02 15:39 Pulse 100 96 Resp 32 32 B/P (MAP) 117/76 (90) 109/76 (87) Pulse Ox 100 99 99 O2 Delivery Ventilator Ventilator Ventilator Mechanical Ventilator 05/12/17 05/12/17 05/12/17 05/12/17 16:00 17:00 17:00 18:00 Temp 99.1 99.1 Pulse 104 103 101 Resp 29 30 28 B/P (MAP) 124/81 (95) 109/76 (87) 106/72 (83) Pulse Ox 99 99 99 99 O2 Delivery Ventilator Ventilator Ventilator Ventilator 05/12/17 05/12/17 05/12/17 05/12/17 19:00 19:20 19:34 20:00 Pulse 93 119 Resp 26 B/P (MAP) 113/74 (87) Pulse Ox 99 99 O2 Delivery Ventilator Ventilator Mechanical Ventilator 05/12/17 05/12/17 05/12/1705/12/17 20:00 21:00 21:00 22:00 Temp 98.8 98.8 Pulse 119 106 121 Resp 30 29 30 B/P (MAP) 106/77 (87) 117/78 (91) 108/73 (85) Pulse Ox 99 99 99 99 O2 Delivery Ventilator Ventilator Ventilator Ventilator 05/12/17 05/12/17 05/12/17 05/12/17 23:00 23:13 23:59 23:59 Pulse 96 102 Resp 27 B/P (MAP) 98/63 (75) Pulse Ox 99 99 O2 Delivery Ventilator Ventilator Mechanical Ventilator 05/13/17 05/13/17 05/13/17 05/13/17 00:00 01:00 01:11 02:00 Temp 99.4 99.4 Pulse 102 98 106 Resp 28 26 26 B/P (MAP) 108/78 (88) 110/71 (84) 108/69 (82) Pulse Ox 99 99 97 99 O2 Delivery Ventilator Ventilator Ventilator Ventilator 05/13/17 05/13/17 05/13/17 05/13/17 03:00 03:20 03:55 04:00 Temp 99.2 99.2 Pulse 96 95 Resp 27 30 B/P (MAP) 112/73 (86) 117/72 (87) Pulse Ox 95 95 99 O2 Delivery Ventilator Ventilator Mechanical Ventilator Ventilator 05/13/17 05/13/17 05/13/17 05/13/17 04:00 05:00 06:00 06:05 Pulse 95 101 105 Resp 27 22 B/P (MAP) 120/70 (87) 144/81 (102) Pulse Ox 95 98 99 O2 Delivery Ventilator Ventilator Ventilator 05/13/17 05/13/17 05/13/17 05/13/17 07:00 07:47 08:00 08:27 Temp 98.8 98.8 Pulse 103 101 Resp 30 B/P (MAP) 97/65 (76) 107/69 (82) Pulse Ox 98 100 100 O2 Delivery Ventilator Mechanical Ventilator Ventilator Ventilator 05/13/17 05/13/17 05/13/17 05/13/17 08:33 09:00 09:43 10:00 Pulse 106 115 106 Resp 30 29 B/P (MAP) 107/69 117/81 (93) 105/66 (79) Pulse Ox 96 100 100 O2 Delivery Ventilator Ventilator Ventilator 05/13/17 05/13/17 05/13/17 05/13/17 11:00 12:00 12:15 12:28 Temp 99.6 99.6 Pulse 110 102 Resp 31 29 34 B/P (MAP) 110/75 (87) 119/72 (88) Pulse Ox 100 98 O2 Delivery Ventilator Mechanical Ventilator Ventilator O2 Flow Rate 30.0 05/13/17 05/13/17 13:00 13:12 Pulse 100 Resp 33 B/P (MAP) 111/71 (84) Pulse Ox 99 100 O2 Delivery Ventilator Ventilator Intake and Output 05/12/17 05/12/17 05/13/17 15:00 23:00 07:00 Intake Total 150 ml 1545 ml 1857 ml Output Total 750 ml 3157 ml 2051 ml Balance -600 ml -1612 ml -194 ml EVELIO BLANTON III DO May 13, 2017 14:04
--- NOTE | 2017-05-13 15:27 | PDOC ---
PULMONARY PROGRESS NOTES Subjective MORE AWAKE FOLLOW COMMANDS Vitals Vital Signs Date Time Temp Pulse Resp B/P (MAP) Pulse Ox O2 Delivery O2 Flow Rate FiO2 05/13/17 15:00 100 31 112/58 (76) 99 Ventilator 05/13/17 12:28 30.0 05/13/17 12:15 99.6 99.6 General: Alert Lungs: Other (DECREASE BS, ERYTHEMA, DRAINS) Cardiovascular: S1 Abdomen: Other (firm) Extremities: Other (1+edema) Skin: Warm Labs Laboratory Tests Test 05/12/17 05:37 05/12/17 08:00 05/13/17 05:30 05/13/17 08:00 White Blood Count 17.0 x10^3/uL (4.0-11.0) 19.7 x10^3/uL (4.0-11.0) Red Blood Count 2.84 x10^6/uL (4.30-5.70) 2.81 x10^6/uL (4.30-5.70) Hemoglobin 9.3 g/dL (13.0-17.5) 9.4 g/dL (13.0-17.5) Hematocrit 28.2 % (39.0-53.0) 27.2 % (39.0-53.0) Mean Corpuscular Volume 99 fL (79-100) 97 fL (79-100) Mean Corpuscular Hemoglobin 33 pg (25-35) 34 pg (25-35) Mean Corpuscular Hemoglobin Concent 33 g/dL (31-37) 35 g/dL (31-37) Red Cell Distribution Width 17.4 % (11.5-14.5) 16.7 % (11.5-14.5) Platelet Count 260 x10^3/uL (140-400) 314 x10^3/uL (140-400) Neutrophils (%) (Auto) 85 % (31-73) 86 % (31-73) Lymphocytes (%) (Auto) 10 % (24-48) 9 % (24-48) Monocytes (%) (Auto) 5 % (0-9) 5 % (0-9) Eosinophils (%) (Auto) 1 % (0-3) 1 % (0-3) Basophils (%) (Auto) 0 % (0-3) 0 % (0-3) Neutrophils # (Auto) 14.4 x10^3uL (1.8-7.7) 16.9 x10^3uL (1.8-7.7) Lymphocytes # (Auto) 1.6 x10^3/uL (1.0-4.8) 1.8 x10^3/uL (1.0-4.8) Monocytes # (Auto) 0.8 x10^3/uL (0.0-1.1) 0.9 x10^3/uL (0.0-1.1) Eosinophils # (Auto) 0.1 x10^3/uL (0.0-0.7) 0.1 x10^3/uL (0.0-0.7) Basophils # (Auto) 0.1 x10^3/uL (0.0-0.2) 0.0 x10^3/uL (0.0-0.2) Sodium Level 142 mmol/L (136-145) 138 mmol/L (136-145) Potassium Level 4.2 mmol/L (3.5-5.1) 4.4 mmol/L (3.5-5.1) Chloride Level 109 mmol/L (98-107) 106 mmol/L (98-107) Carbon Dioxide Level 29 mmol/L (21-32) 26 mmol/L (21-32) Anion Gap 4 (6-14) 6 (6-14) Blood Urea Nitrogen 18 mg/dL (8-26) 17 mg/dL (8-26) Creatinine 0.6 mg/dL (0.7-1.3) 0.7 mg/dL (0.7-1.3) Estimated GFR (Cockcroft-Gault) 132.8 111.2 BUN/Creatinine Ratio 30 (6-20) Glucose Level 105 mg/dL (70-99) 107 mg/dL (70-99) Calcium Level 8.2 mg/dL (8.5-10.1) 8.3 mg/dL (8.5-10.1) Total Bilirubin 1.8 mg/dL (0.2-1.0) Aspartate Amino Transf (AST/SGOT) 28 U/L (15-37) Alanine Aminotransferase (ALT/SGPT) 17 U/L (16-63) Alkaline Phosphatase 97 U/L (46-116) Total Protein 5.0 g/dL (6.4-8.2) Albumin 1.1 g/dL (3.4-5.0) Albumin/Globulin Ratio 0.3 (1.0-1.7) O2 Saturation 95 % (92-99) 96 % (92-99) Arterial Blood pH 7.49 (7.35-7.45) 7.46 (7.35-7.45) Arterial Blood pCO2 at Patient Temp 32 mmHg (35-46) 35 mmHg (35-46) Arterial Blood pO2 at Patient Temp 77 mmHg (65-108) 86 mmHg (65-108) Arterial Blood HCO3 24 mmol/L (21-28) 24 mmol/L (21-28) Arterial Blood Base Excess 1 mmol/L (-3-3) 1 mmol/L (-3-3) FiO2 30 30 Lactic Acid Level 1.2 mmol/L (0.4-2.0) Test 05/13/17 08:40 Glucose (Fingerstick) 107 mg/dL (70-99) Laboratory Tests Test 05/13/17 05:30 05/13/17 08:00 05/13/17 08:40 White Blood Count 19.7 x10^3/uL (4.0-11.0) Red Blood Count 2.81 x10^6/uL (4.30-5.70) Hemoglobin 9.4 g/dL (13.0-17.5) Hematocrit 27.2 % (39.0-53.0) Mean Corpuscular Volume 97 fL (79-100) Mean Corpuscular Hemoglobin 34 pg (25-35) Mean Corpuscular Hemoglobin Concent 35 g/dL (31-37) Red Cell Distribution Width 16.7 % (11.5-14.5) Platelet Count 314 x10^3/uL (140-400) Neutrophils (%) (Auto) 86 % (31-73) Lymphocytes (%) (Auto) 9 % (24-48) Monocytes (%) (Auto) 5 % (0-9) Eosinophils (%) (Auto) 1 % (0-3) Basophils (%) (Auto) 0 % (0-3) Neutrophils # (Auto) 16.9 x10^3uL (1.8-7.7) Lymphocytes # (Auto) 1.8 x10^3/uL (1.0-4.8) Monocytes # (Auto) 0.9 x10^3/uL (0.0-1.1) Eosinophils # (Auto) 0.1 x10^3/uL (0.0-0.7) Basophils # (Auto) 0.0 x10^3/uL (0.0-0.2) Sodium Level 138 mmol/L (136-145) Potassium Level 4.4 mmol/L (3.5-5.1) Chloride Level 106 mmol/L (98-107) Carbon Dioxide Level 26 mmol/L (21-32) Anion Gap 6 (6-14) Blood Urea Nitrogen 17 mg/dL (8-26) Creatinine 0.7 mg/dL (0.7-1.3) Estimated GFR (Cockcroft-Gault) 111.2 Glucose Level 107 mg/dL (70-99) Lactic Acid Level 1.2 mmol/L (0.4-2.0) Calcium Level 8.3 mg/dL (8.5-10.1) O2 Saturation 96 % (92-99) Arterial Blood pH 7.46 (7.35-7.45) Arterial Blood pCO2 at Patient Temp 35 mmHg (35-46) Arterial Blood pO2 at Patient Temp 86 mmHg (65-108) Arterial Blood HCO3 24 mmol/L (21-28) Arterial Blood Base Excess 1 mmol/L (-3-3) FiO2 30 Glucose (Fingerstick) 107 mg/dL (70-99) Medications Active Scripts Medications Dose Route/Sig Max Daily Dose Days Date Category Melatonin 3 Mg Tablet 1 Tab PO QHS 04/22/17 Reported Move Free Joint [employer] Tablet (Glucosam/Chond/Hyalu/Cf Borate) 1 Each Tablet 1 Each PO DAILY 04/22/17 Reported Digoxin 125 Mcg Tablet 1 Tab PO DAILY 04/22/17 Reported Prednisone 10 Mg Tablet 10 Mg PO DAILY 04/22/17 Reported Comments IMPRESSION:CXR 1. Stable tube positions. 2. Slight interval improvement in the basilar opacities. Impression . 1. Acute respiratory failure, expected post -op 2. septic shock IMPROVED 3. Metabolic acidosis/ lactic acidosis, improving 4. chronic A-Fib 5. Crohn's Dx, who has h/o perforated viscous and underwent lap with resection . Cults + for H para/Clostridium Ramsom/Bacteroides/Strep bovis. D/cd home with Augmentin. Presented electively for an extended right colon resection with ileocolotomy 04/29. Taken back to OR ruptured ileo-colic anastomosis, fecal impaction s/p rigid procto, disimpaction, ex lap, resection of ileo-colic anastomosis, end ileostomy, Evans's pouch, 6. Toxic and metabolic encephalopathy 7. Abnormal CXR Plan . MAY NEED A TRACH WILL D/W SURGEON DID NOT DO WELL ON TRIAL CXR REVIEWED off pressors nutrition tpn anttibx per NAILA ANGELES MD May 13, 2017 15:27
[2017-05-13] MEDS: ENOXAPARIN 40 MG/0.4 ML SYRINGE. SQ SCH (21:04)
[2017-05-13] MEDS ORDERED: DEXTROSE 70% IV SCH ×11 (22:00)
[2017-05-13] MEDS ORDERED: AMINO ACIDS IV SCH ×11 (22:00)
[2017-05-13] MEDS ORDERED: [UNRECOGNIZED DRUG - OTHER] IV SCH ×11 (22:00)
[2017-05-13] MEDS ORDERED: TOTAL PARENTERAL NUTRITION IV SCH ×11 (22:00)
[2017-05-14] VITALS (28 sets, daily range): BP systolic 95–128; BP diastolic 61–81
[2017-05-14] MEDS: PIPERACILLIN/TAZOBACTAM 3.375 GM in IV NORMAL SALINE 50ML 50 ML IV SCH ×4 (00:26→18:31)
[2017-05-14] MEDS: PROPOFOL 100 ML IV PRN (04:01)
[2017-05-14] MEDS: IV NORMAL SALINE 1000ML BAG 1,000 ML IV SCH ×2 (04:01→18:32)
[2017-05-14 06:39] LABS: CALCIUM 7.6 mg/dL (8.5-10.1); CREATININE 0.8 mg/dL (0.7-1.3); GFR 95.3; POTASSIUM 4.4 mmol/L (3.5-5.1)
[2017-05-14 06:44] LABS: PHOSPHORUS 4.1 mg/dL (2.6-4.7)
[2017-05-14 07:32] LABS: HCO3 ABG 22 mmol/L (21-28); PCO2 ABG 30 mmHg (35-46); PH ABG 7.48 (7.35-7.45); PO2 ABG 89 mmHg (65-108); SAT O2 ABG 96 % (92-99)
[2017-05-14 07:34] LABS: FIO2 ABG 30
--- NOTE | 2017-05-14 07:59 | PDOC ---
Infectious Disease Note Subjective Subjective Remains intubated. 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 SKIN: No rash IV: ok Labs Lab Laboratory Tests Test 05/13/17 08:00 05/13/17 08:40 05/14/17 05:45 05/14/17 07:20 O2 Saturation 96 % (92-99) 96 % (92-99) Arterial Blood pH 7.46 (7.35-7.45) 7.48 (7.35-7.45) Arterial Blood pCO2 at Patient Temp 35 mmHg (35-46) 30 mmHg (35-46) Arterial Blood pO2 at Patient Temp 86 mmHg (65-108) 89 mmHg (65-108) Arterial Blood HCO3 24 mmol/L (21-28) 22 mmol/L (21-28) Arterial Blood Base Excess 1 mmol/L (-3-3) -1 mmol/L (-3-3) FiO2 30 30 Glucose (Fingerstick) 107 mg/dL (70-99) Sodium Level 138 mmol/L (136-145) Potassium Level 4.4 mmol/L (3.5-5.1) Chloride Level 105 mmol/L (98-107) Carbon Dioxide Level 27 mmol/L (21-32) Anion Gap 6 (6-14) Blood Urea Nitrogen 17 mg/dL (8-26) Creatinine 0.8 mg/dL (0.7-1.3) Estimated GFR (Cockcroft-Gault) 95.3 Glucose Level 139 mg/dL (70-99) Calcium Level 7.6 mg/dL (8.5-10.1) Phosphorus Level 4.1 mg/dL (2.6-4.7) Magnesium Level 2.0 mg/dL (1.8-2.4) Objective Assessment Pelvic abscess. Gram stain: GPC, yeast, anaerobes. Culture E. coli (pansensitive ), yeast so far Sepsis with hypotension, on pressors Leukocytosis, trending up Ruptured ileo-colic anastomosis, fecal impaction s/p rigid procto, disimpaction , ex lap, resection of ileo-colic anastomosis, end ileostomy, Evans's pouch, DALLIN 05/05 Right flank ? cellulitis Immunosuppression Afib Thrombocytopenia, better H/o H para/Clostridium Ramsom/Bacteroides/Strep bovis January 2017 Plan Plan of Care micafungin and zosyn, add zyvox F/u labs and cults going for trach today Critically ill nursing home prognosis poor KELSIE CANTU MD May 14, 2017 07:59
--- NOTE | 2017-05-14 08:34 | RAD ---
Indication respiratory failure. A single view of the chest was obtained and is compared to an exam one day earlier. There is volume loss in the left lower lobe probably reflecting pleural fluid and atelectasis similar to similar to slightly worse than on the previous exam. Pulmonary vasculature is similar. There is no pneumothorax. Right IJ catheter and right PICC line are noted. Nasogastric tube is noted. Endotracheal tube is appropriately positioned above the mehnaz. IMPRESSION: Volume loss at the left lung base likely reflecting pleural fluid and atelectasis similar to slightly worse than on the previous exam
[2017-05-14] MEDS: CHLORHEXIDINE 0.12% 15 ML MOUTHWASH. SWSP SCH ×2 (09:23→23:08)
[2017-05-14] MEDS: FAMOTIDINE 20 MG/2 ML VIAL IVP SCH ×2 (09:23→23:08)
[2017-05-14] MEDS: DIGOXIN IV 500 MCG/2 ML AMPUL. IV SCH (09:24)
--- NOTE | 2017-05-14 10:11 | PDOC ---
Provider Note Provider Note SURG for trach this AM d/w David and his son at the bedside he will proceed RON GROSS MD May 14, 2017 10:11
[2017-05-14] MEDS ORDERED: PHENYLEPHRINE in 0.9% NACL PF 1 MG/10 ML DISP.SYRIN. IV ONE (10:31)
[2017-05-14] MEDS ORDERED: ROCURONIUM 50 MG/5 ML VIAL. ONE (10:31)
[2017-05-14] MEDS ORDERED: fentaNYL PF VIAL 100 MCG/2 ML VIAL ONE (10:31)
[2017-05-14] MEDS ORDERED: MIDAZOLAM HCL/PF 2 MG/2 ML VIAL. ONE (10:31)
[2017-05-14] MEDS ORDERED: ePHEDrine PF IN SALINE 50 MG/5 ML DISP.SYRIN IV ONE (10:31)
[2017-05-14] MEDS ORDERED: SURGICEL FIBRILLAR 1X2 EACH. ONE (10:43)
[2017-05-14] MEDS ORDERED: BUPIVACAINE-EPI 0.5%-1:200000 50 ML VIAL. ONE (10:43)
--- NOTE | 2017-05-14 11:11 | PDOC ---
PROGRESS NOTES Chief Complaint Chief Complaint Crohn's dz s/p R part colectomy Abd pain Pelvic abscess Respir failure Hypotension Leukocytosis Thrombocytopenia Afib with RVR CHF Hypokalemia Coagulopathy History of Present Illness History of Present Illness Patient seen in the ICU and remains intubated. Vent settings per pul are AC/16/ 500/30%. Moderate level of alertness today - relatively same as yesterday. Vitals Vitals Vital Signs Date Time Temp Pulse Resp B/P (MAP) Pulse Ox O2 Delivery O2 Flow Rate FiO2 05/14/17 09:29 100 Ventilator 05/14/17 09:24 88 114/80 05/14/17 09:00 30 05/14/17 08:00 98.8 98.8 05/13/17 12:58 30.0 Physical Exam General: No acute distress, Other (intubated and unresponsive) Heart: Regular rate, Other Lungs: Other (DECREASE BS, ERYTHEMA, DRAINS) Abdomen: Soft, Other (dressings intact, LASHAUN drains with serosanguineous output) Extremities: No clubbing, Other (2-3+ edema) Skin: No rashes, Other (Moderate scrotal edema) Labs LABS Laboratory Tests Test 05/14/17 05:45 05/14/17 07:20 Sodium Level 138 mmol/L (136-145) Potassium Level 4.4 mmol/L (3.5-5.1) Chloride Level 105 mmol/L (98-107) Carbon Dioxide Level 27 mmol/L (21-32) Anion Gap 6 (6-14) Blood Urea Nitrogen 17 mg/dL (8-26) Creatinine 0.8 mg/dL (0.7-1.3) Estimated GFR (Cockcroft-Gault) 95.3 Glucose Level 139 mg/dL (70-99) Calcium Level 7.6 mg/dL (8.5-10.1) Phosphorus Level 4.1 mg/dL (2.6-4.7) Magnesium Level 2.0 mg/dL (1.8-2.4) O2 Saturation 96 % (92-99) Arterial Blood pH 7.48 (7.35-7.45) Arterial Blood pCO2 at Patient Temp 30 mmHg (35-46) Arterial Blood pO2 at Patient Temp 89 mmHg (65-108) Arterial Blood HCO3 22 mmol/L (21-28) Arterial Blood Base Excess -1 mmol/L (-3-3) FiO2 30 Assessment and Plan Assessmemt and Plan Assessment: s/p R colectomy Crohn's dz s/p R part colectomy Abd pain Pelvic abscess Respir failure Hypotension Leukocytosis Thrombocytopenia Afib with RVR CHF Hypokalemia Coagulopathy Plan: 1. Respiratory failure patient is vented. Pulm is following with ventilator settings AC/16/500/30% PEEP 5.0 2. Leukocytosis 19.7. Continuing to monitor. Continuing abx per ID recommendation. 3. Cont to monitor for hypokalemia and replete per protocol 4. Cont GI prophylaxis PPI 5. Discussed plan with nursing staff 6. Appreciate the assistance of the subspecialties in this case 7. Patient still intubated - not able to be extubated at this time 8. Contuing wound and supportive care 9. Appreciate the care and input of the subspecialities 10. 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 Labs Laboratory Tests Test 05/13/17 05:30 05/13/17 08:00 05/13/17 08:40 05/14/17 05:45 White Blood Count 19.7 x10^3/uL (4.0-11.0) Red Blood Count 2.81 x10^6/uL (4.30-5.70) Hemoglobin 9.4 g/dL (13.0-17.5) Hematocrit 27.2 % (39.0-53.0) Mean Corpuscular Volume 97 fL (79-100) Mean Corpuscular Hemoglobin 34 pg (25-35) Mean Corpuscular Hemoglobin Concent 35 g/dL (31-37) Red Cell Distribution Width 16.7 % (11.5-14.5) Platelet Count 314 x10^3/uL (140-400) Neutrophils (%) (Auto) 86 % (31-73) Lymphocytes (%) (Auto) 9 % (24-48) Monocytes (%) (Auto) 5 % (0-9) Eosinophils (%) (Auto) 1 % (0-3) Basophils (%) (Auto) 0 % (0-3) Neutrophils # (Auto) 16.9 x10^3uL (1.8-7.7) Lymphocytes # (Auto) 1.8 x10^3/uL (1.0-4.8) Monocytes # (Auto) 0.9 x10^3/uL (0.0-1.1) Eosinophils # (Auto) 0.1 x10^3/uL (0.0-0.7) Basophils # (Auto) 0.0 x10^3/uL (0.0-0.2) Sodium Level 138 mmol/L (136-145) 138 mmol/L (136-145) Potassium Level 4.4 mmol/L (3.5-5.1) 4.4 mmol/L (3.5-5.1) Chloride Level 106 mmol/L (98-107) 105 mmol/L (98-107) Carbon Dioxide Level 26 mmol/L (21-32) 27 mmol/L (21-32) Anion Gap 6 (6-14) 6 (6-14) Blood Urea Nitrogen 17 mg/dL (8-26) 17 mg/dL (8-26) Creatinine 0.7 mg/dL (0.7-1.3) 0.8 mg/dL (0.7-1.3) Estimated GFR (Cockcroft-Gault) 111.2 95.3 Glucose Level 107 mg/dL (70-99) 139 mg/dL (70-99) Lactic Acid Level 1.2 mmol/L (0.4-2.0) Calcium Level 8.3 mg/dL (8.5-10.1) 7.6 mg/dL (8.5-10.1) O2 Saturation 96 % (92-99) Arterial Blood pH 7.46 (7.35-7.45) Arterial Blood pCO2 at Patient Temp 35 mmHg (35-46) Arterial Blood pO2 at Patient Temp 86 mmHg (65-108) Arterial Blood HCO3 24 mmol/L (21-28) Arterial Blood Base Excess 1 mmol/L (-3-3) FiO2 30 Glucose (Fingerstick) 107 mg/dL (70-99) Phosphorus Level 4.1 mg/dL (2.6-4.7) Magnesium Level 2.0 mg/dL (1.8-2.4) Test 05/14/17 07:20 O2 Saturation 96 % (92-99) Arterial Blood pH 7.48 (7.35-7.45) Arterial Blood pCO2 at Patient Temp 30 mmHg (35-46) Arterial Blood pO2 at Patient Temp 89 mmHg (65-108) Arterial Blood HCO3 22 mmol/L (21-28) Arterial Blood Base Excess -1 mmol/L (-3-3) FiO2 30 Laboratory Tests Test 05/14/17 05:45 05/14/17 07:20 Sodium Level 138 mmol/L (136-145) Potassium Level 4.4 mmol/L (3.5-5.1) Chloride Level 105 mmol/L (98-107) Carbon Dioxide Level 27 mmol/L (21-32) Anion Gap 6 (6-14) Blood Urea Nitrogen 17 mg/dL (8-26) Creatinine 0.8 mg/dL (0.7-1.3) Estimated GFR (Cockcroft-Gault) 95.3 Glucose Level 139 mg/dL (70-99) Calcium Level 7.6 mg/dL (8.5-10.1) Phosphorus Level 4.1 mg/dL (2.6-4.7) Magnesium Level 2.0 mg/dL (1.8-2.4) O2 Saturation 96 % (92-99) Arterial Blood pH 7.48 (7.35-7.45) Arterial Blood pCO2 at Patient Temp 30 mmHg (35-46) Arterial Blood pO2 at Patient Temp 89 mmHg (65-108) Arterial Blood HCO3 22 mmol/L (21-28) Arterial Blood Base Excess -1 mmol/L (-3-3) FiO2 30 Microbiology 05/06/17 Blood Culture - Final, Complete NO GROWTH AFTER 5 DAYS 05/05/17 Anaerobic/Aerobic Culture - Final, Complete 05/05/17 Anaerobic Culture Result 1 (ENOCH) - Final, Complete 05/05/17 Aerobic Culture - Final, Complete 05/05/17 Aerobic Culture Result 1 (ENOCH) - Final, Complete 05/05/17 Aerobic Culture Result 2 (ENOCH) - Final, Complete 05/05/17 Aerobic Culture Result 3 (ENOCH) - Final, Complete 05/05/17 Antimicrobic Susceptibility - Final, Complete Medications Current Medications Ondansetron HCl (Zofran) 4 mg PRN Q6HRS PRN IV NAUSEA/VOMITING; Start 04/29/17 at 07:00; Stop 04/29/17 at 17:32; Status DC Fentanyl Citrate (Fentanyl 2ml Vial) 25 mcg PRN Q5MIN PRN IV MILD PAIN; Start 04/29/17 at 07:00; Stop 04/30/17 at 06:59; Status DC Fentanyl Citrate (Fentanyl 2ml Vial) 50 mcg PRN Q5MIN PRN IV MODERATE PAIN Last administered on 04/29/17 16:59; Start 04/29/17 at 07:00; Stop 04/30/17 at 06:59; Status DC Morphine Sulfate 1 mg PRN Q10MIN PRN IV SEVERE PAIN Last administered on 16:41; Start 04/29/17 at 07:00; Stop 04/30/17 at 06:59; Status DC Ringer's Solution 1,000 ml @ 30 mls/hr Q24H IV Last administered on 04/29/17 10:42; Start 04/29/17 at 07:00; Stop 04/29/17 at 18:59; Status DC Lidocaine HCl 2 ml PRN 1X PRN ID PRIOR TO IV START; Start 04/29/17 at 07:00; Stop 04/30/17 at 06:59; Status DC Hydromorphone HCl (Dilaudid) 0.5 mg PRN Q10MIN PRN IV SEV PAIN, Second choice; Start 04/29/17 at 07:00; Stop 04/30/17 at 06:59; Status DC Prochlorperazine Edisylate (Compazine) 5 mg PACU PRN PRN IV NAUSEA, MRX1; Start 04/29/17 at 07:00; Stop 04/30/17 at 06:59; Status DC Cefoxitin Sodium 1 gm/Sodium Chloride 50 ml @ 100 mls/hr 1X ONCE IV Last administered on 04/29/17 12:00; Start 04/29/17 at 06:00; Stop 04/29/17 at 06:29 ; Status DC Dexamethasone Sodium Phosphate (Decadron) 20 mg STK-MED ONCE .ROUTE ; Start at 10:47; Stop 04/29/17 at 10:48; Status DC Ondansetron HCl (Zofran) 4 mg STK-MED ONCE .ROUTE ; Start 04/29/17 at 10:47; Stop 04/29/17 at 10:48; Status DC Propofol 20 ml @ As Directed STK-MED ONCE IV ; Start 04/29/17 at 10:47; Stop at 10:48; Status DC Lidocaine HCl (Lidocaine Pf 2% Vial) 5 ml STK-MED ONCE .ROUTE ; Start 04/29/17 at 10:47; Stop 04/29/17 at 10:48; Status DC Desflurane (Suprane) 60 ml STK-MED ONCE IH ; Start 04/29/17 at 10:47; Stop 04/29 at 10:48; Status DC Fentanyl Citrate (Fentanyl 2ml Vial) 100 mcg STK-MED ONCE .ROUTE ; Start at 10:47; Stop 04/29/17 at 10:48; Status DC Rocuronium Pickton (Zemuron) 50 mg STK-MED ONCE .ROUTE ; Start 04/29/17 at 10:47 ; Stop 04/29/17 at 10:48; Status DC Phenylephrine HCl 1 mg STK-MED ONCE IV ; Start 04/29/17 at 11:52; Stop 04/29/17 at 11:53; Status DC Hydrocortisone Sodium Succinate (Solu-CORTEF) 100 mg STK-MED ONCE .ROUTE ; Start 04/29/17 at 12:04; Stop 04/29/17 at 12:05; Status DC Fentanyl Citrate (Fentanyl 2ml Vial) 100 mcg STK-MED ONCE .ROUTE ; Start at 12:21; Stop 04/29/17 at 12:22; Status DC Rocuronium Pickton (Zemuron) 50 mg STK-MED ONCE .ROUTE ; Start 04/29/17 at 12:53 ; Stop 04/29/17 at 12:54; Status DC Labetalol HCl (Normodyne) 20 mg STK-MED ONCE .ROUTE ; Start 04/29/17 at 12:53; Stop 04/29/17 at 12:54; Status DC Fentanyl Citrate (Fentanyl 2ml Vial) 100 mcg STK-MED ONCE .ROUTE ; Start at 12:55; Stop 04/29/17 at 12:56; Status DC Esmolol HCl (Brevibloc) 100 mg STK-MED ONCE IV ; Start 04/29/17 at 12:59; Stop 04/29/17 at 13:00; Status DC Morphine Sulfate 10 mg STK-MED ONCE .ROUTE ; Start 04/29/17 at 13:03; Stop 04/29 at 13:04; Status DC Rocuronium Pickton (Zemuron) 100 mg STK-MED ONCE .ROUTE ; Start 04/29/17 at 14: 10; Stop 04/29/17 at 14:11; Status DC Fentanyl Citrate (Fentanyl 2ml Vial) 100 mcg STK-MED ONCE .ROUTE ; Start at 15:08; Stop 04/29/17 at 15:09; Status DC Glycopyrrolate (Robinul) 1 mg STK-MED ONCE .ROUTE ; Start 04/29/17 at 15:29; Stop 04/29/17 at 15:30; Status DC Neostigmine Methylsulfate 5 mg STK-MED ONCE .ROUTE ; Start 04/29/17 at 15:29; Stop 04/29/17 at 15:30; Status DC Esmolol HCl (Brevibloc) 100 mg STK-MED ONCE IV ; Start 04/29/17 at 16:05; Stop 04/29/17 at 16:06; Status DC Diphenhydramine HCl (Benadryl) 25 mg PRN Q6HRS PRN IV ITCHING Last administered on 05/04/17 20:36; Start 04/29/17 at 16:30 Enoxaparin Sodium (Lovenox 40mg Syringe) 40 mg Q24H SQ Last administered on 05/10 06:27; Start 04/30/17 at 06:00; Stop 05/10/17 at 20:48; Status DC Sodium Chloride (Normal Saline Flush) 3 ml QSHIFT PRN IV AFTER MEDS AND BLOOD DRAWS; Start 04/29/17 at 16:30 Potassium Chloride/Sodium Chloride 1,000 ml @ 100 mls/hr Q10H IV Last administered on 05/01/17 00:17; Start 04/29/17 at 16:26; Stop 05/01/17 at 18:31 ; Status DC Hydromorphone HCl 30 ml @ 0 mls/hr CONT PRN PRN IV PROTOCOL Last administered on 04/30/17 18:01; Start 04/29/17 at 16:30; Stop 05/03/17 at 09:45; Status DC Ondansetron HCl (Zofran) 4 mg PRN Q6HRS PRN IV NAUESA, 1ST CHOICE; Start at 16:30; Stop 05/02/17 at 12:27; Status DC Throat Lozenges (Chloraseptic) 1 spray PRN Q2HR PRN PO SORE THROAT; Start 04/29 at 16:45; Stop 05/05/17 at 11:28; Status DC Throat Lozenges (Chloraseptic) 1 spray PRN Q2HR PRN PO SORE THROAT; Start 04/29 at 16:45; Stop 04/29/17 at 17:32; Status DC Digoxin (Lanoxin) 125 mcg DAILY PO Last administered on 05/01/17 09:32; Start 04/30/17 at 09:00; Stop 05/01/17 at 14:05; Status DC Prednisone (Prednisone) 10 mg DAILY PO ; Start 04/30/17 at 09:00; Stop 04/30/17 at 16:33; Status DC Methylprednisolone Sodium Succinate (SOLU-Medrol 40MG VIAL) 15 mg DAILY IV Last administered on 05/02/17 07:59; Start 04/30/17 at 11:00; Stop 05/02/17 at 14:00; Status DC Pantoprazole Sodium (Protonix Vial) 40 mg DAILYAC IVP Last administered on 05/02 07:57; Start 04/30/17 at 17:00; Stop 05/02/17 at 13:45; Status DC Digoxin (Lanoxin) 250 mcg DAILY PO Last administered on 05/05/17 09:29; Start 05/02/17 at 09:00; Stop 05/06/17 at 14:54; Status DC Sodium Chloride 1,000 ml @ 100 mls/hr Q10H IV Last administered on 05/04/17 03:25; Start 05/01/17 at 18:30; Stop 05/04/17 at 15:20; Status DC Nicotine (Nicoderm Cq 14mg) 1 patch PRN DAILY PRN TD SMOKING CESSATION Last administered on 05/04/17 11:15; Start 05/02/17 at 06:45 Ondansetron HCl (Zofran) 4 mg PRN Q6HRS PRN IV NAUSEA/VOMITING Last administered on 05/05/17 09:36; Start 05/02/17 at 12:30 Acetaminophen/ Hydrocodone Bitart (Lortab 5/325) 1 tab PRN Q4HRS PRN PO MILD PAIN Last administered on 05/04/17 17:13; Start 05/02/17 at 12:30 Fentanyl Citrate (Fentanyl 2ml Vial) 50 mcg PRN Q2HR PRN IV MODERATE PAIN Last administered on 05/06/17 08:14; Start 05/02/17 at 12:30; Stop 05/06/17 at 10:55 ; Status DC Famotidine (Pepcid) 20 mg DAILY IVP Last administered on 05/03/17 09:01; Start 05/03/17 at 09:00; Stop 05/03/17 at 09:45; Status DC Hydromorphone HCl (Dilaudid) 1 mg PRN Q4HRS PRN IV SEVERE PAIN Last administered on 05/04/17 11:13; Start 05/03/17 at 09:45; Stop 05/06/17 at 10:55 ; Status DC Morphine Sulfate (Ms Contin) 15 mg BID PO Last administered on 05/04/17 21:35 ; Start 05/03/17 at 09:45; Stop 05/08/17 at 09:52; Status DC Metoprolol Tartrate (Lopressor) 12.5 mg Q6HRS PO Last administered on 11:14; Start 05/03/17 at 19:00; Stop 05/04/17 at 12:51; Status DC Info 1 each PRN DAILY PRN MC SEE COMMENTS Last administered on 05/13/17 13:17; Start 05/04/17 at 11:15 Metoprolol Tartrate (Lopressor) 25 mg BID PO ; Start 05/04/17 at 21:00; Stop at 14:54; Status DC Magnesium Sulfate/ Dextrose 50 ml @ 25 mls/hr 1X ONCE IV Last administered on 05/04/17 15:46; Start 05/04/17 at 16:00; Stop 05/04/17 at 17:59; Status DC Amino Acids/ Glycerin/ Electrolytes 1,000 ml @ 80 mls/hr [id number] IV Last administered on 05/05/17 05:32; Start 05/04/17 at 16:00; Stop 05/05/17 at 21:59 ; Status DC Amino Acids/ Glycerin/ Electrolytes 1,000 ml @ 80 mls/hr [id number] IV ; Start at 15:30; Status UNV Sodium Chloride 1,000 ml @ 100 mls/hr Q10H IV Last administered on 05/05/17 16:32; Start 05/04/17 at 16:00; Stop 05/06/17 at 01:03; Status DC Albumin Human 500 ml @ 100 mls/hr 1X ONCE IV Last administered on 05/05/17 00:05; Start 05/04/17 at 22:00; Stop 05/05/17 at 02:59; Status DC Lidocaine HCl (Glydo (Lidocaine) Jelly) 1 emelia 1X ONCE MM Last administered on 05/05/17 08:30; Start 05/05/17 at 08:30; Stop 05/05/17 at 08:35; Status DC Throat Lozenges (Chloraseptic) 1 spray PRN Q2HR PRN PO SORE THROAT; Start 05/05 at 08:30 Non-Formulary Medication 1 each DAILY PO ; Start 05/06/17 at 09:00; Stop at 09:00; Status DC Non-Formulary Medication 1 tab QHS PO ; Start 05/05/17 at 21:00; Stop 05/05/17 at 21:00; Status DC Benzocaine (Hurricaine One) 1 spray 1X ONCE MM Last administered on 05/05/17 10:30; Start 05/05/17 at 10:30; Stop 05/05/17 at 10:31; Status DC Throat Lozenges (Cepacol Sore Throat Lozenge) 1 west PRN Q2HRS PRN PO SORE THROAT; Start 05/05/17 at 11:00 Albumin Human 500 ml @ 100 mls/hr 1X ONCE IV Last administered on 05/05/17 13:24; Start 05/05/17 at 11:15; Stop 05/05/17 at 16:14; Status DC Sodium Chloride 1,000 ml @ 1,000 mls/hr 1X ONCE IV ; Start 05/05/17 at 11:30; Stop 05/05/17 at 12:29; Status DC Famotidine (Pepcid) 20 mg BID IVP Last administered on 05/14/17 09:23; Start at 12:00 Amiodarone HCl 900 mg/Dextrose 518 ml @ 0 mls/hr CONT PRN IV SEE I/O RECORD Last administered on 05/05/17 13:17; Start 05/05/17 at 12:15; Stop 05/05/17 at 13:17; Status DC Amiodarone HCl 150 mg/Dextrose 103 ml @ 618 mls/hr 1X ONCE IV Last administered on 05/05/17 12:30; Start 05/05/17 at 12:30; Stop 05/05/17 at 12:39 ; Status DC Potassium Phosphate 13.6 mmol/Sodium Chloride 104.5333 ml @ 52.267 m... Q2H IV ; Start 05/05/17 at 14:30; Stop 05/05/17 at 16:29; Status DC Sodium Chloride 90 meq/Potassium Chloride 50 meq/ Potassium Phosphate 17 mmol/ Magnesium Sulfate 10 meq/Calcium Gluconate 5 meq/ Multivitamins 10 ml/Chromium/ Copper/Manganese/ Seleni/Zn 1 ml/ Total Parenteral Nutrition/Amino Acids/ Dextrose/ Fat Emulsion Intravenous 1,512 ml @ 63 mls/hr TPN CONT IV Last administered on 05/05/17 21:46; Start 05/05/17 at 22:00; Stop 05/06/17 at 21:59 ; Status DC Iohexol (Omnipaque 300 Mg/ml) 60 ml 1X ONCE IV Last administered on 05/05/17 14:50; Start 05/05/17 at 14:45; Stop 05/05/17 at 14:46; Status DC Info (Do NOT chart on this entry -- for MONITORING) 1 each PRN DAILY PRN MC SEE COMMENTS; Start 05/05/17 at 14:45; Stop 05/07/17 at 14:45; Status DC Sodium Chloride 1,000 ml @ 2,000 mls/hr 1X ONCE IV Last administered on 16:33; Start 05/05/17 at 16:00; Stop 05/05/17 at 16:29; Status DC Vancomycin HCl (Vanco Per Pharmacy) 1 each PRN DAILY PRN MC SEE COMMENTS Last administered on 05/08/17 09:08; Start 05/05/17 at 16:00; Stop 05/09/17 at 14:01 ; Status DC Piperacillin Sod/ Tazobactam Sod (Zosyn Per Pharmacy) 1 each PRN DAILY PRN MC SEE COMMENTS; Start 05/05/17 at 16:00; Stop 05/10/17 at 07:20; Status DC Piperacillin Sod/ Tazobactam Sod 4.5 gm/Sodium Chloride 100 ml @ 200 mls/hr Q6HRS IV Last administered on 05/09/17 13:02; Start 05/05/17 at 17:00; Stop 05/09/17 at 13:58; Status DC Vancomycin HCl 1.75 gm/Sodium Chloride 500 ml @ 250 mls/hr 1X ONCE IV Last administered on 05/05/17 16:30; Start 05/05/17 at 17:00; Stop 05/05/17 at 18:59 ; Status DC Potassium Chloride 50 ml @ 50 mls/hr Q1H IV Last administered on 05/05/17 16: 59; Start 05/05/17 at 16:30; Stop 05/05/17 at 19:29; Status DC Vancomycin HCl 1.25 gm/Sodium Chloride 250 ml @ 167 mls/hr Q12H IV Last administered on 05/06/17 18:57; Start 05/06/17 at 06:00; Stop 05/07/17 at 07:47 ; Status DC Vancomycin HCl 1 each 1X ONCE MC Last administered on 05/07/17 05:30; Start 05/07/17 at 05:30; Stop 05/07/17 at 05:31; Status DC Norepinephrine Bitartrate 250 ml @ As Directed STK-MED ONCE IV ; Start at 16:22; Stop 05/05/17 at 16:23; Status DC Norepinephrine Bitartrate 250 ml @ 0 mls/hr CONT PRN IV SEE I/O RECORD Last administered on 05/10/17 17:53; Start 05/05/17 at 16:45 Vasopressin 40 unit/Dextrose 102 ml @ 6 mls/hr CONT PRN IV SEE I/O RECORD Last administered on 05/09/17 19:25; Start 05/05/17 at 17:00 Phenylephrine HCl 20 mg/Sodium Chloride 252 ml @ 0 mls/hr CONT PRN IV SEE I/O RECORD Last administered on 05/06/17 06:22; Start 05/05/17 at 17:00; Stop 05/06 at 08:00; Status DC Propofol 0 ml @ As Directed STK-MED ONCE IV ; Start 05/05/17 at 17:21; Stop at 17:22; Status DC Lidocaine HCl (Lidocaine Pf 2% Vial) 5 ml STK-MED ONCE .ROUTE ; Start 05/05/17 at 17:21; Stop 05/05/17 at 17:22; Status DC Fentanyl Citrate (Fentanyl 2ml Vial) 100 mcg STK-MED ONCE .ROUTE ; Start at 17:22; Stop 05/05/17 at 17:23; Status DC Succinylcholine Chloride (Anectine) 200 mg STK-MED ONCE .ROUTE ; Start 05/05/17 at 17:22; Stop 05/05/17 at 17:23; Status DC Rocuronium Pickton (Zemuron) 50 mg STK-MED ONCE .ROUTE ; Start 05/05/17 at 17:22 ; Stop 05/05/17 at 17:23; Status DC Etomidate (Amidate) 20 mg STK-MED ONCE IV ; Start 05/05/17 at 17:25; Stop at 17:26; Status DC Desflurane (Suprane) 60 ml STK-MED ONCE IH ; Start 05/05/17 at 18:02; Stop 05/05 at 18:03; Status DC Rocuronium Pickton (Zemuron) 50 mg STK-MED ONCE .ROUTE ; Start 05/05/17 at 18:52 ; Stop 05/05/17 at 18:53; Status DC Phenylephrine HCl (Bhargav-Synephrine Inj) 10 mg STK-MED ONCE .ROUTE ; Start at 19:53; Stop 05/05/17 at 19:54; Status DC Propofol 100 ml @ 0 mls/hr CONT PRN IV SEE I/O RECORD Last administered on 04:01; Start 05/05/17 at 21:30 Midazolam HCl 100 ml @ 0 mls/hr CONT PRN IV SEE I/O RECORD Last administered on 05/08/17 00:43; Start 05/05/17 at 22:00; Stop 05/13/17 at 09:33; Status DC Sodium Bicarbonate 150 meq/Dextrose 1,150 ml @ 100 mls/hr [id number] IV Last administered on 05/07/17 03:44; Start 05/06/17 at 02:00; Stop 05/07/17 at 10:32 ; Status DC Micafungin Sodium 100 mg/Dextrose 100 ml @ 100 mls/hr Q24H IV Last administered on 05/09/17 08:00; Start 05/06/17 at 08:00; Stop 05/09/17 at 13:58; Status DC Phenylephrine HCl 80 mg/Sodium Chloride 258 ml @ 0 mls/hr CONT PRN IV SEE I/O RECORD Last administered on 05/06/17 08:16; Start 05/06/17 at 08:00 Potassium Phosphate 10 mmol/ Sodium Chloride 103.3333 ml @ 51.667 m... Q2H IV Last administered on 05/06/17 16:11; Start 05/06/17 at 08:30; Stop 05/06/17 at 12:29; Status DC Fentanyl Citrate 30 ml @ 0 mls/hr CONT PRN PRN IV PROTOCOL Last administered on 05/10/17 10:47; Start 05/06/17 at 10:45; Stop 05/13/17 at 09:33; Status DC Naloxone HCl (Narcan) 0.4 mg PRN Q2MIN PRN IV SEE INSTRUCTIONS; Start 05/06/17 at 10:45 Sodium Chloride 1,000 ml @ 25 mls/hr Q24H IV Last administered on 05/10/17 10: 17; Start 05/06/17 at 11:00; Stop 05/13/17 at 17:35; Status DC Norepinephrine Bitartrate 250 ml @ 0 mls/hr CONT PRN IV SEE I/O RECORD; Start 05/06/17 at 10:45; Status Cancel Sodium Chloride 90 meq/Sodium Acetate 40 meq/ Potassium Chloride 50 meq/ Potassium Phosphate 25 mmol/ Magnesium Sulfate 15 meq/Calcium Gluconate 5 meq/ Multivitamins 10 ml/Chromium/ Copper/Manganese/ Seleni/Zn 1 ml/ Total Parenteral Nutrition/Amino Acids/Dextrose/ Fat Emulsion Intravenous 1,512 ml @ 63 mls/hr TPN CONT IV Last administered on 05/06/17 21:38; Start 05/06/17 at 22:00; Stop 05/07/17 at 21:59; Status DC Famotidine (Pepcid) 20 mg BID IVP ; Start 05/06/17 at 21:00; Status UNV Digoxin (Lanoxin) 250 mcg DAILY PO ; Start 05/06/17 at 16:00; Stop 05/08/17 at 10:59; Status DC Vancomycin HCl 1 gm/Sodium Chloride 250 ml @ 250 mls/hr Q8H IV Last administered on 05/09/17 12:59; Start 05/07/17 at 08:00; Stop 05/09/17 at 13:58; Status DC Vancomycin HCl 1 each 1X ONCE MC ; Start 05/08/17 at 07:30; Stop 05/08/17 at 07 :31; Status DC Potassium Phosphate 15 mmol/ Sodium Chloride 255 ml @ 127.5 mls/ hr 1X ONCE IV Last administered on 05/07/17 10:46; Start 05/07/17 at 10:30; Stop at 12:29; Status DC Sodium Chloride 1,000 ml @ 75 mls/hr [id number] IV Last administered on 05/14/17 04:01; Start 05/07/17 at 12:00 Sodium Chloride 90 meq/Sodium Acetate 40 meq/ Potassium Chloride 50 meq/ Potassium Phosphate 25 mmol/ Magnesium Sulfate 15 meq/Calcium Gluconate 5 meq/ Multivitamins 10 ml/Chromium/ Copper/Manganese/ Seleni/Zn 1 ml/ Total Parenteral Nutrition/Amino Acids/Dextrose/ Fat Emulsion Intravenous 1,512 ml @ 63 mls/hr TPN CONT IV Last administered on 05/07/17 21:06; Start 05/07/17 at 22:00; Stop 05/08/17 at 21:59; Status DC Albumin Human 100 ml @ 100 mls/hr 1X ONCE IV Last administered on 05/07/17 21:06; Start 05/07/17 at 20:45; Stop 05/07/17 at 21:44; Status DC Potassium Phosphate 15 mmol/ Sodium Chloride 255 ml @ 85 mls/hr Q2H IV Last administered on 05/07/17 21:55; Start 05/07/17 at 22:00; Stop 05/07/17 at 23:59 ; Status DC Digoxin (Lanoxin) 250 mcg DAILY IV Last administered on 05/14/17 09:24; Start 05/08/17 at 11:15 Sodium Chloride 90 meq/Sodium Acetate 40 meq/ Potassium Chloride 50 meq/ Potassium Phosphate 20 mmol/ Magnesium Sulfate 15 meq/Calcium Gluconate 5 meq/ Multivitamins 10 ml/Chromium/ Copper/Manganese/ Seleni/Zn 1 ml/ Total Parenteral Nutrition/Amino Acids/Dextrose/ Fat Emulsion Intravenous 1,512 ml @ 63 mls/hr TPN CONT IV Last administered on 05/08/17 21:39; Start 05/08/17 at 22:00; Stop 05/09/17 at 21:59; Status DC Chlorhexidine Gluconate (Peridex) 15 ml BID SWSP Last administered on 05/14/17 09:23; Start 05/08/17 at 21:00 Multi-Ingred Cream/Lotion/Oil/ Oint (Artificial Tears Eye Oint) 1 emelia PRN Q12HR PRN OU DRY EYE Last administered on 05/08/17 16:31; Start 05/08/17 at 14:45 Sodium Chloride 90 meq/Sodium Acetate 40 meq/ Potassium Acetate 70 meq/ Potassium Phosphate 20 mmol/ Magnesium Sulfate 15 meq/Calcium Gluconate 5 meq/ Multivitamins 10 ml/Chromium/ Copper/Manganese/ Seleni/Zn 1 ml/ Total Parenteral Nutrition/Amino Acids/Dextrose/ Fat Emulsion Intravenous 1,512 ml @ 63 mls/hr TPN CONT IV Last administered on 05/09/17 22:13; Start 05/09/17 at 22 :00; Stop 05/10/17 at 21:59; Status DC Ceftriaxone Sodium 1 gm/ Sodium Chloride 50 ml @ 100 mls/hr Q24H IV Last administered on 05/11/17 15:11; Start 05/09/17 at 14:00; Stop 05/12/17 at 08:25; Status DC Sodium Chloride 60 meq/Sodium Acetate 50 meq/ Potassium Acetate 90 meq/ Potassium Phosphate 20 mmol/ Magnesium Sulfate 15 meq/Calcium Gluconate 5 meq/ Multivitamins 10 ml/Chromium/ Copper/Manganese/ Seleni/Zn 1 ml/ Total Parenteral Nutrition/Amino Acids/Dextrose/ Fat Emulsion Intravenous 1,512 ml @ 63 mls/hr TPN CONT IV Last administered on 05/10/17 21:24; Start 05/10/17 at 22 :00; Stop 05/11/17 at 21:59; Status DC Enoxaparin Sodium (Lovenox 40mg Syringe) 40 mg Q24H SQ Last administered on 05/13 21:04; Start 05/10/17 at 21:00 Sodium Chloride 40 meq/Sodium Acetate 50 meq/ Potassium Acetate 90 meq/ Potassium Phosphate 20 mmol/ Magnesium Sulfate 15 meq/Calcium Gluconate 5 meq/ Multivitamins 10 ml/Chromium/ Copper/Manganese/ Seleni/Zn 1 ml/ Total Parenteral Nutrition/Amino Acids/Dextrose/ Fat Emulsion Intravenous 1,512 ml @ 63 mls/hr TPN CONT IV Last administered on 05/11/17 20:42; Start 05/11/17 at 22 :00; Stop 05/12/17 at 21:59; Status DC Micafungin Sodium 100 mg/Dextrose 100 ml @ 100 mls/hr Q24H IV Last administered on 05/13/17 11:18; Start 05/11/17 at 12:00 Piperacillin Sod/ Tazobactam Sod 3.375 gm/Sodium Chloride 50 ml @ 100 mls/hr Q6HRS IV Last administered on 05/14/17 05:53; Start 05/12/17 at 09:00 Sodium Chloride 40 meq/Sodium Acetate 50 meq/ Potassium Acetate 90 meq/ Potassium Phosphate 20 mmol/ Magnesium Sulfate 15 meq/Calcium Gluconate 5 meq/ Multivitamins 10 ml/Chromium/ Copper/Manganese/ Seleni/Zn 1 ml/ Total Parenteral Nutrition/Amino Acids/Dextrose/ Fat Emulsion Intravenous 1,512 ml @ 63 mls/hr TPN CONT IV Last administered on 05/12/17 21:57; Start 05/12/17 at 22 :00; Stop 05/13/17 at 21:59; Status DC Albumin Human 100 ml @ 100 mls/hr 1X ONCE IV Last administered on 05/12/17 21 :05; Start 05/12/17 at 21:00; Stop 05/12/17 at 21:59; Status DC Alteplase, Recombinant (Cathflo) 2 mg 1X ONCE INT CAT Last administered on 05/12 21:04; Start 05/12/17 at 21:00; Stop 05/12/17 at 21:01; Status DC Iohexol (Omnipaque 300 Mg/ml) 75 ml 1X ONCE IV Last administered on 05/13/17 09:16; Start 05/13/17 at 09:30; Stop 05/13/17 at 09:31; Status DC Info (Do NOT chart on this entry -- for MONITORING) 1 each PRN DAILY PRN MC SEE COMMENTS; Start 05/13/17 at 07:45; Stop 05/15/17 at 07:44 Fentanyl Citrate (Fentanyl 2ml Vial) 100 mcg STK-MED ONCE .ROUTE ; Start at 09:26; Stop 05/13/17 at 09:27; Status DC Fentanyl Citrate (Fentanyl 2ml Vial) 25 mcg PRN Q2HR PRN IV PAIN; Start at 09:30 Fentanyl Citrate (Fentanyl 2ml Vial) 50 mcg PRN Q2HR PRN IV PAIN Last administered on 05/13/17 12:28; Start 05/13/17 at 09:45 Sodium Chloride 40 meq/Sodium Acetate 50 meq/ Potassium Acetate 90 meq/ Potassium Phosphate 20 mmol/ Magnesium Sulfate 15 meq/Calcium Gluconate 5 meq/ Multivitamins 10 ml/Chromium/ Copper/Manganese/ Seleni/Zn 1 ml/ Total Parenteral Nutrition/Amino Acids/Dextrose/ Fat Emulsion Intravenous 1,512 ml @ 63 mls/hr TPN CONT IV Last administered on 05/13/17 21:05; Start 05/13/17 at 22 :00; Stop 05/14/17 at 21:59 Linezolid 300 ml @ 300 mls/hr Q12HR IV Last administered on 05/14/17 09:00; Start 05/14/17 at 09:00 Phenylephrine HCl 1 mg STK-MED ONCE IV ; Start 05/14/17 at 10:31; Stop 05/14/17 at 10:32; Status DC Fentanyl Citrate (Fentanyl 2ml Vial) 100 mcg STK-MED ONCE .ROUTE ; Start at 10:31; Stop 05/14/17 at 10:32; Status DC Midazolam HCl (Versed) 2 mg STK-MED ONCE .ROUTE ; Start 05/14/17 at 10:31; Stop 05/14/17 at 10:32; Status DC Ephedrine Sulfate 50 mg STK-MED ONCE IV ; Start 05/14/17 at 10:31; Stop 05/14/17 at 10:32; Status DC Rocuronium [place] (Zemuron) 50 mg STK-MED ONCE .ROUTE ; Start 05/14/17 at 10:31 ; Stop 05/14/17 at 10:32; Status DC Cellulose 1 each STK-MED ONCE .ROUTE ; Start 05/14/17 at 10:43; Stop 05/14/17 at 10:44; Status DC Bupivacaine HCl/ Epinephrine Bitart (Marcaine-Epi 0.5%-1:083199) 50 ml STK-MED ONCE .ROUTE ; Start 05/14/17 at 10:43; Stop 05/14/17 at 10:44; Status DC Active Scripts Active Reported Melatonin 3 Mg Tablet 1 Tab PO QHS Move Free [employer] Tablet (Glucosam/Chond/Hyalu/Cf Borate) 1 Each Tablet 1 Each PO DAILY Digoxin 125 Mcg Tablet 1 Tab PO DAILY Prednisone 10 Mg Tablet 10 Mg PO DAILY Vitals/I & O Vital Sign - Last 24 Hours 05/13/17 05/13/17 05/13/17 05/13/17 12:00 12:15 12:28 12:58 Temp 99.6 99.6 Pulse 102 Resp 29 34 31 B/P (MAP) 119/72 (88) Pulse Ox 98 O2 Delivery Mechanical Ventilator Ventilator Ventilator O2 Flow Rate 30.0 30.0 05/13/17 05/13/17 05/13/17 05/13/17 13:00 13:12 14:00 15:00 Pulse 100 110 100 Resp 33 33 31 B/P (MAP) 111/71 (84) 113/68 (83) 112/58 (76) Pulse Ox 99 100 100 99 O2 Delivery Ventilator Ventilator Ventilator Ventilator 05/13/17 05/13/17 05/13/17 05/13/17 15:30 16:00 16:00 17:00 Temp 99.6 99.6 Pulse 95 95 Resp 29 29 B/P (MAP) 102/56 (71) 87/59 (68) Pulse Ox 100 98 99 O2 Delivery Ventilator Mechanical Ventilator Ventilator Ventilator 05/13/17 05/13/17 05/13/17 05/13/17 17:33 18:00 19:00 19:34 Pulse 86 92 Resp 29 30 B/P (MAP) 124/69 (87) 112/79 (90) Pulse Ox 95 100 100 O2 Delivery Ventilator Ventilator Ventilator Mechanical Ventilator 05/13/17 05/13/17 05/13/17 05/13/17 19:54 20:00 21:00 22:00 Temp 99.0 99.0 Pulse 98 96 104 Resp 32 29 30 B/P (MAP) 113/70 (84) 107/66 (80) 107/68 (81) Pulse Ox 100 99 99 99 O2 Delivery Ventilator Ventilator Ventilator Ventilator 05/13/17 05/13/17 05/13/17 05/14/17 22:48 23:00 23:59 00:00 Temp 99.1 99.1 Pulse 103 95 Resp 32 28 B/P (MAP) 97/63 (74) 106/67 (80) Pulse Ox 100 99 99 O2 Delivery Ventilator Ventilator Mechanical Ventilator Ventilator 05/14/17 05/14/17 05/14/17 05/14/17 01:00 02:00 02:00 03:00 Pulse 98 98 92 Resp 30 32 30 B/P (MAP) 95/67 (76) 99/64 (76) 106/63 (77) Pulse Ox 99 100 100 100 O2 Delivery Ventilator Ventilator Ventilator Ventilator 05/14/17 05/14/17 05/14/17 05/14/17 04:00 04:00 04:34 05:00 Temp 99.2 99.2 Pulse 90 85 Resp 27 32 B/P (MAP) 104/66 (79) 95/61 (72) Pulse Ox 100 100 100 O2 Delivery Mechanical Ventilator Ventilator Ventilator Ventilator 05/14/17 05/14/17 05/14/17 05/14/17 05:54 06:00 07:00 07:14 Pulse 95 87 Resp 30 24 B/P (MAP) 101/71 (81) 119/79 (92) Pulse Ox 100 100 100 100 O2 Delivery Ventilator Ventilator Ventilator Ventilator 05/14/17 05/14/17 05/14/17 05/14/17 08:00 09:00 09:24 09:29 Temp 98.8 98.8 Pulse 90 86 88 Resp 25 30 B/P (MAP) 118/73 (88) 114/80 (91) 114/80 Pulse Ox 100 100 100 O2 Delivery Ventilator Ventilator Ventilator Intake and Output 05/13/17 05/13/17 05/14/17 15:00 23:00 07:00 Intake Total 150 ml 1590 ml 1767 ml Output Total 1100 ml 1615 ml 1775 ml Balance -950 ml -25 ml -8 ml EVELIO BLANTON K III DO May 14, 2017 11:11
[2017-05-14] MEDS: MICAFUNGIN 100 MG in IV DEXTROSE 5% 100 ML IV SCH (11:29)
--- NOTE | 2017-05-14 12:14 | PDOC ---
BRIEF OPERATIVE NOTE Pre-Op Diagnosis Ventilatory dependence Post-Op Diagnosis same Procedure Performed Tracheostomy Surgeon Andrew Nichols Check Out Clerk Orion Garcia Anesthesia Type: General, Local Blood Loss min Complications none Additional Remarks After obtaining informed consent from patient's son, patient was taken to the OR. He was prepped and draped in the usual fashion over the anterior neck. 0.5 % Marcaine was injected in the neck two finger widths above the sternal notch. An incision was made with cautery in a vertical fashion. The incision was carried down to the trachea using electrocautery. A transverse incision was made using 15 blade scapel. A trap door inferiorly was created using scissors. A 2-0 prolene was secured to this and secured to the anterior chest using steristrips. Under direct vision, a fenestrated 8 shiley cuffed trach was introduced. The patient was successfully ventilated and oxygenated. End tidal CO2 was detected. The trach was secured with a trach collar and 3-o nylons. Patient tolerated procedure well and returned to the ICU. ANDREW NICHOLS MD May 14, 2017 12:14
[2017-05-14] MEDS: TPN PER PHARMACY MC PRN (12:36)
--- NOTE | 2017-05-14 14:27 | PDOC ---
PROGRESS NOTES Assessment Assessment IMPRESSION: Metabolic encephalopathy. Respiratory failure. AFib Sepsis Crohn's disease s/p colectomy. S/p perforation viscus. 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 RECOMMENDATIONS/PLAN: Continue Medical treatment. Discussed with his at bedside. SUBJECTIVE: Sedated. OBJECTIVE: S/p trach placement. Past Medical History Cardiovascular: AFIB, CHF, HTN Pulmonary: COPD GI: Other (Crohn's disease) Psych: Anxiety, Addictions (alcohol, occasional marijuana, cocaine many years ago) Musculoskeletal: Osteoarthritis ENT: Other (right ear hearing loss) Renal/: Other (nephrolithiasis) Past Surgical History Past Surgical History: Hernia Repair (right inguinal and umbilical), Other ( ruptured viscus 01/23, colectomy, laparotomy) Family History Cancer Social History Has a significant other, smokes a pack of cigarettes per day and drinks at least 4 beers a day PAST MEDICAL AND SURGICAL HISTORY: Please see H&P ALLERGY: Reviewed. MEDICATIONS: Refer to MAR REVIEW OF SYSTEMS: Constitutional: No malnutrition, weight loss, cachexia. Head: No traumatic brain or head injury. Skin: No edema, or rash. Ear: No infection, tinnitus. Eyes: No vision loss, or diplopia. Nose: No bleeding or purulent discharges. Hearing: Hearing loss. Neck: No injury. Cardiac: AFib, Pulmonary: No cancer.. GI: No GI Ulcer, GI bleeding Urinary/genital: UTI. Endocrine: No cousin face, craniofacial dysmorphism, polydactyly. Skeletomuscular: generalized weakness. Neurological: see HP. Psychiatric: Denies drug use/abuse. Otherwise, not [id number] review of systems. PHYSICAL EXAMINATION: General appearance in acute distress. HEENT: Normocephalic and nontraumatic. Eyes, nose, ears, and throat are unremarkable. Neck is supple. No lymphadenopathy. No bruits are heard over the carotid artery. No Crepitus. Cardiovascular: S1, S2, irregular rate and rhythm. Pulmonary: Clear to auscultation bilaterally. Abdomen: Bowel sounds are positive. Extremities: No rash, lesions. No restriction of range of motion NEUROLOGICAL EXAMINATION: Lethargic, s/p trach placement. Not oriented to time, place and person. PERRL. EOMI slow CN: no focal findings. Muscle tone: fluctuated. Muscle strength: movements noted. DTR: 2- Plantar reflex: Neutral response bilaterally Gait: not examined in bed. Sensory exam: no abnormal findings. No cerebellar signs elicited. F-T-N test not performed due to decreased mentation. Objective Objective Vital Signs Date Time Temp Pulse Resp B/P (MAP) Pulse Ox O2 Delivery O2 Flow Rate FiO2 05/14/17 13:36 99 Ventilator 05/14/17 13:00 82 22 127/75 (92) 05/14/17 12:00 98.7 98.7 05/13/17 12:58 30.0 Intake and Output 05/14/17 07:00 Intake Total 3507 ml Output Total 4490 ml Balance -983 ml IV Total 3507 ml Output Urine Total 2810 ml Gastric Drainage Total 675 ml Drainage Total 1005 ml Vitals Signs Vitals VS - Last 72 Hours, by Label Date Time Temp Pulse Resp B/P (MAP) Pulse Ox O2 Delivery O2 Flow Rate FiO2 05/14/17 13:36 99 Ventilator 05/14/17 13:00 82 22 127/75 (92) 100 Ventilator 05/14/17 12:45 77 22 110/65 (80) 100 Ventilator 05/14/17 12:30 75 22 116/65 (82) 100 Ventilator 05/14/17 12:15 89 22 122/81 (95) 100 Ventilator 05/14/17 12:05 99 Ventilator 05/14/17 12:00 98.7 90 23 127/81 (96) 100 Ventilator 98.7 05/14/17 10:00 80 30 120/71 (87) 100 Ventilator 05/14/17 09:29 100 Ventilator 05/14/17 09:24 88 114/80 05/14/17 09:00 86 30 114/80 (91) 100 Ventilator 05/14/17 08:00 98.8 90 25 118/73 (88) 100 Ventilator 98.8 05/14/17 08:00 Mechanical Ventilator 05/14/17 07:14 100 Ventilator 05/14/17 07:00 87 24 119/79 (92) 100 Ventilator 05/14/17 06:00 95 30 101/71 (81) 100 Ventilator 05/14/17 05:54 100 Ventilator 05/14/17 05:00 85 32 95/61 (72) 100 Ventilator 05/14/17 04:34 100 Ventilator 05/14/17 04:00 99.2 90 27 104/66 (79) 100 Ventilator 99.2 7 04:00 Mechanical Ventilator 7 03:00 92 30 106/63 (77) 100 Ventilator 7/617 02:00 100 Ventilator 7/04/25 02:00 98 32 99/64 (76) 100 Ventilator 717 01:00 98 30 95/67 (76) 99 Ventilator 05/14/17 00:00 99.1 95 28 106/67 (80) 99 Ventilator 99.1 05/13/17 23:59 Mechanical Ventilator 17 23:00 103 32 97/63 (74) 99 Ventilator 7/17 22:48 100 Ventilator 7/17 22:00 104 30 107/68 (81) 99 Ventilator 05/13/17 21:00 96 29 107/66 (80) 99 Ventilator 05/13/17 20:00 99.0 98 32 113/70 (84) 99 Ventilator 99.0 05/13/17 19:54 100 Ventilator 05/13/17 19:34 Mechanical Ventilator 05/13/17 19:00 92 30 112/79 (90) 100 Ventilator 05/13/17 18:00 86 29 124/69 (87) 100 Ventilator 17 17:33 95 Ventilator 17 17:00 95 29 87/59 (68) 99 Ventilator 05/13/17 16:00 99.6 95 29 102/56 (71) 98 Ventilator 99.6 05/13/17 16:00 Mechanical Ventilator 05/13/17 15:30 100 Ventilator 17 15:00 100 31 112/58 (76) 99 Ventilator 17 14:00 110 33 113/68 (83) 100 Ventilator 7//17 13:12 100 Ventilator 7/17 13:00 100 33 111/71 (84) 99 Ventilator 17 12:58 31 Ventilator 30.0 05/13/17 12:28 34 30.0 7/17 12:15 99.6 102 29 119/72 (88) 98 Ventilator 99.6 05/13/17 12:00 Mechanical Ventilator 05/13/17 11:00 110 31 110/75 (87) 100 Ventilator 17 10:00 106 29 105/66 (79) 100 Ventilator 717 09:43 100 Ventilator 7/5/17 09:00 115 30 117/81 (93) 96 Ventilator 05/13/17 08:33 106 107/69 05/13/17 08:27 100 Ventilator 05/13/17 08:00 98.8 101 30 107/69 (82) 100 Ventilator 98.8 05/13/17 07:47 Mechanical Ventilator 05/13/17 07:00 103 26 97/65 (76) 98 Ventilator Laboratory Laboratory Laboratory Tests Test 05/14/17 05:45 05/14/17 07:20 Sodium Level 138 mmol/L (136-145) Potassium Level 4.4 mmol/L (3.5-5.1) Chloride Level 105 mmol/L (98-107) Carbon Dioxide Level 27 mmol/L (21-32) Anion Gap 6 (6-14) Blood Urea Nitrogen 17 mg/dL (8-26) Creatinine 0.8 mg/dL (0.7-1.3) Estimated GFR (Cockcroft-Gault) 95.3 Glucose Level 139 mg/dL (70-99) Calcium Level 7.6 mg/dL (8.5-10.1) Phosphorus Level 4.1 mg/dL (2.6-4.7) Magnesium Level 2.0 mg/dL (1.8-2.4) O2 Saturation 96 % (92-99) Arterial Blood pH 7.48 (7.35-7.45) Arterial Blood pCO2 at Patient Temp 30 mmHg (35-46) Arterial Blood pO2 at Patient Temp 89 mmHg (65-108) Arterial Blood HCO3 22 mmol/L (21-28) Arterial Blood Base Excess -1 mmol/L (-3-3) FiO2 30 Microbiology 05/06/17 Blood Culture - Final, Complete NO GROWTH AFTER 5 DAYS 05/05/17 Anaerobic/Aerobic Culture - Final, Complete 05/05/17 Anaerobic Culture Result 1 (ENOCH) - Final, Complete 05/05/17 Aerobic Culture - Final, Complete 05/05/17 Aerobic Culture Result 1 (ENOCH) - Final, Complete 05/05/17 Aerobic Culture Result 2 (ENOCH) - Final, Complete 05/05/17 Aerobic Culture Result 3 (ENOCH) - Final, Complete 05/05/17 Antimicrobic Susceptibility - Final, Complete Medication Medications Current Medications Bupivacaine HCl/ Epinephrine Bitart (Marcaine-Epi 0.5%-1:[id number]) 50 ml STK-MED ONCE .ROUTE Last administered on 05/14/17 11:30; Start 05/14/17 at 10:43; Stop 05/14/17 at 10:44; Status DC Cellulose 1 each STK-MED ONCE .ROUTE ; Start 05/14/17 at 10:43; Stop 05/14/17 at 10:44; Status DC Ephedrine Sulfate 50 mg STK-MED ONCE IV ; Start 05/14/17 at 10:31; Stop 05/14/17 at 10:32; Status DC Fentanyl Citrate (Fentanyl 2ml Vial) 100 mcg STK-MED ONCE .ROUTE ; Start at 10:31; Stop 05/14/17 at 10:32; Status DC Linezolid 300 ml @ 300 mls/hr Q12HR IV Last administered on 05/14/17 09:00; Start 05/14/17 at 09:00 Midazolam HCl (Versed) 2 mg STK-MED ONCE .ROUTE ; Start 05/14/17 at 10:31; Stop 05/14/17 at 10:32; Status DC Phenylephrine HCl 1 mg STK-MED ONCE IV ; Start 05/14/17 at 10:31; Stop 05/14/17 at 10:32; Status DC Rocuronium [place] (Zemuron) 50 mg STK-MED ONCE .ROUTE ; Start 05/14/17 at 10:31 ; Stop 05/14/17 at 10:32; Status DC Sodium Chloride 40 meq/Sodium Acetate 50 meq/ Potassium Acetate 90 meq/ Potassium Phosphate 20 mmol/ Magnesium Sulfate 15 meq/Calcium Gluconate 5 meq/ Multivitamins 10 ml/Chromium/ Copper/Manganese/ Seleni/Zn 1 ml/ Total Parenteral Nutrition/Amino Acids/Dextrose/ Fat Emulsion Intravenous 1,512 ml @ 63 mls/hr TPN CONT IV Last administered on 05/13/17 21:05; Start 05/13/17 at 22 :00; Stop 05/14/17 at 21:59 Sodium Chloride 40 meq/Sodium Acetate 50 meq/ Potassium Acetate 90 meq/ Potassium Phosphate 20 mmol/ Magnesium Sulfate 15 meq/Calcium Gluconate 5 meq/ Multivitamins 10 ml/Chromium/ Copper/Manganese/ Seleni/Zn 1 ml/ Total Parenteral Nutrition/Amino Acids/Dextrose/ Fat Emulsion Intravenous 1,512 ml @ 63 mls/hr TPN CONT IV ; Start 05/14/17 at 22:00; Stop 05/15/17 at 21:59 Comment Review of Relevant I have reviewed the following items manuel (where applicable) has been applied. JORGE LUIS WISDOM MD May 14, 2017 14:27
--- NOTE | 2017-05-14 14:50 | PDOC ---
PULMONARY PROGRESS NOTES Subjective MORE AWAKE FOLLOW COMMANDS Vitals Vital Signs Date Time Temp Pulse Resp B/P (MAP) Pulse Ox O2 Delivery O2 Flow Rate FiO2 05/14/17 13:36 99 Ventilator 05/14/17 13:00 82 22 127/75 (92) 05/14/17 12:00 98.7 98.7 05/13/17 12:58 30.0 General: Alert Lungs: Other (DECREASE BS, ERYTHEMA, DRAINS) Cardiovascular: S1 Abdomen: Other (firm) Extremities: Other (1+edema) Skin: Warm Labs Laboratory Tests Test 05/13/17 05:30 05/13/17 08:00 05/13/17 08:40 05/14/17 05:45 White Blood Count 19.7 x10^3/uL (4.0-11.0) Red Blood Count 2.81 x10^6/uL (4.30-5.70) Hemoglobin 9.4 g/dL (13.0-17.5) Hematocrit 27.2 % (39.0-53.0) Mean Corpuscular Volume 97 fL (79-100) Mean Corpuscular Hemoglobin 34 pg (25-35) Mean Corpuscular Hemoglobin Concent 35 g/dL (31-37) Red Cell Distribution Width 16.7 % (11.5-14.5) Platelet Count 314 x10^3/uL (140-400) Neutrophils (%) (Auto) 86 % (31-73) Lymphocytes (%) (Auto) 9 % (24-48) Monocytes (%) (Auto) 5 % (0-9) Eosinophils (%) (Auto) 1 % (0-3) Basophils (%) (Auto) 0 % (0-3) Neutrophils # (Auto) 16.9 x10^3uL (1.8-7.7) Lymphocytes # (Auto) 1.8 x10^3/uL (1.0-4.8) Monocytes # (Auto) 0.9 x10^3/uL (0.0-1.1) Eosinophils # (Auto) 0.1 x10^3/uL (0.0-0.7) Basophils # (Auto) 0.0 x10^3/uL (0.0-0.2) Sodium Level 138 mmol/L (136-145) 138 mmol/L (136-145) Potassium Level 4.4 mmol/L (3.5-5.1) 4.4 mmol/L (3.5-5.1) Chloride Level 106 mmol/L (98-107) 105 mmol/L (98-107) Carbon Dioxide Level 26 mmol/L (21-32) 27 mmol/L (21-32) Anion Gap 6 (6-14) 6 (6-14) Blood Urea Nitrogen 17 mg/dL (8-26) 17 mg/dL (8-26) Creatinine 0.7 mg/dL (0.7-1.3) 0.8 mg/dL (0.7-1.3) Estimated GFR (Cockcroft-Gault) 111.2 95.3 Glucose Level 107 mg/dL (70-99) 139 mg/dL (70-99) Lactic Acid Level 1.2 mmol/L (0.4-2.0) Calcium Level 8.3 mg/dL (8.5-10.1) 7.6 mg/dL (8.5-10.1) O2 Saturation 96 % (92-99) Arterial Blood pH 7.46 (7.35-7.45) Arterial Blood pCO2 at Patient Temp 35 mmHg (35-46) Arterial Blood pO2 at Patient Temp 86 mmHg (65-108) Arterial Blood HCO3 24 mmol/L (21-28) Arterial Blood Base Excess 1 mmol/L (-3-3) FiO2 30 Glucose (Fingerstick) 107 mg/dL (70-99) Phosphorus Level 4.1 mg/dL (2.6-4.7) Magnesium Level 2.0 mg/dL (1.8-2.4) Test 05/14/17 07:20 O2 Saturation 96 % (92-99) Arterial Blood pH 7.48 (7.35-7.45) Arterial Blood pCO2 at Patient Temp 30 mmHg (35-46) Arterial Blood pO2 at Patient Temp 89 mmHg (65-108) Arterial Blood HCO3 22 mmol/L (21-28) Arterial Blood Base Excess -1 mmol/L (-3-3) FiO2 30 Laboratory Tests Test 05/14/17 05:45 05/14/17 07:20 Sodium Level 138 mmol/L (136-145) Potassium Level 4.4 mmol/L (3.5-5.1) Chloride Level 105 mmol/L (98-107) Carbon Dioxide Level 27 mmol/L (21-32) Anion Gap 6 (6-14) Blood Urea Nitrogen 17 mg/dL (8-26) Creatinine 0.8 mg/dL (0.7-1.3) Estimated GFR (Cockcroft-Gault) 95.3 Glucose Level 139 mg/dL (70-99) Calcium Level 7.6 mg/dL (8.5-10.1) Phosphorus Level 4.1 mg/dL (2.6-4.7) Magnesium Level 2.0 mg/dL (1.8-2.4) O2 Saturation 96 % (92-99) Arterial Blood pH 7.48 (7.35-7.45) Arterial Blood pCO2 at Patient Temp 30 mmHg (35-46) Arterial Blood pO2 at Patient Temp 89 mmHg (65-108) Arterial Blood HCO3 22 mmol/L (21-28) Arterial Blood Base Excess -1 mmol/L (-3-3) FiO2 30 Medications Active Scripts Medications Dose Route/Sig Max Daily Dose Days Date Category Melatonin 3 Mg Tablet 1 Tab PO QHS 04/22/17 Reported Move Free [employer] Tablet (Glucosam/Chond/Hyalu/Cf Borate) 1 Each Tablet 1 Each PO DAILY 04/22/17 Reported Digoxin 125 Mcg Tablet 1 Tab PO DAILY 04/22/17 Reported Prednisone 10 Mg Tablet 10 Mg PO DAILY 04/22/17 Reported Comments CXR .IMPRESSION: Volume loss at the left lung base likely reflecting pleural fluid and atelectasis similar to slightly worse than on the previous exam Impression . 1. Acute respiratory failure, expected post -op s/p trach 2. septic shock IMPROVED 3. Metabolic acidosis/ lactic acidosis, improving 4. chronic A-Fib 5. Crohn's Dx, who has h/o perforated viscous and underwent lap with resection . Cults + for H para/Clostridium Ramsom/Bacteroides/Strep bovis. D/cd home with Augmentin. Presented electively for an extended right colon resection with ileocolotomy 04/29. Taken back to OR ruptured ileo-colic anastomosis, fecal impaction s/p rigid procto, disimpaction, ex lap, resection of ileo-colic anastomosis, end ileostomy, Evans's pouch, 6. Toxic and metabolic encephalopathy 7. Abnormal CXR Plan . AC MODE FOR NOW WILL START WEANING IN AM CXR REVIEWED off pressors nutrition tpn anttibx per ID NAILA DUDLEY MD May 14, 2017 14:50
[2017-05-14] MEDS: fentaNYL PF VIAL 100 MCG/2 ML VIAL IV PRN (20:56)
[2017-05-14] MEDS ORDERED: DEXTROSE 70% IV SCH ×11 (22:00)
[2017-05-14] MEDS ORDERED: AMINO ACIDS IV SCH ×11 (22:00)
[2017-05-14] MEDS ORDERED: TOTAL PARENTERAL NUTRITION IV SCH ×11 (22:00)
[2017-05-14] MEDS ORDERED: [UNRECOGNIZED DRUG - OTHER] IV SCH ×11 (22:00)
[2017-05-14] MEDS: ENOXAPARIN 40 MG/0.4 ML SYRINGE. SQ SCH (23:08)
[2017-05-15] VITALS (24 sets, daily range): BP systolic 78–119; BP diastolic 43–95
[2017-05-15] MEDS: PROPOFOL 100 ML IV PRN ×2 (00:03→20:27)
[2017-05-15] MEDS: PIPERACILLIN/TAZOBACTAM 3.375 GM in IV NORMAL SALINE 50ML 50 ML IV SCH ×4 (00:20→17:25)
[2017-05-15] MEDS: fentaNYL PF VIAL 100 MCG/2 ML VIAL IV PRN ×6 (01:47→20:27)
[2017-05-15] MEDS: IV NORMAL SALINE 1000ML BAG 1,000 ML IV SCH ×2 (05:17→20:26)
[2017-05-15 06:28] LABS: CALCIUM 7.8 mg/dL (8.5-10.1); CREATININE 0.7 mg/dL (0.7-1.3); GFR 111.2; POTASSIUM 4.4 mmol/L (3.5-5.1)
--- NOTE | 2017-05-15 07:58 | RAD ---
Portable chest, 05/15/2017: History: Respiratory failure Comparison is made to yesterday's study. The patient is rotated to the right. A tracheostomy tube has been placed with its tip located well above the mehnaz. An NG tube extends into the stomach. The right PICC and a right jugular central venous catheters are unchanged in positions extending into the superior vena cava. The heart is within normal limits in size. There is a moderate unchanged left basilar opacity compatible with infiltrate and pleural fluid. There is minimal streaky right basilar atelectasis. There is no evidence of pneumothorax. No new cardiopulmonary abnormality is detected. IMPRESSION: 1. Interval insertion of a tracheostomy tube in satisfactory position. 2. No other significant interval change since yesterday's study.
--- NOTE | 2017-05-15 08:04 | PDOC ---
SURGICAL PROGRESS NOTE Subjective Pt more awake today, trying to communicate with family, appears comfortable, nursing notes minimal greenish output from abd drains Vital Signs Vital Signs Date Time Temp Pulse Resp B/P (MAP) Pulse Ox O2 Delivery O2 Flow Rate FiO2 05/15/17 07:47 100 Ventilator 05/15/17 07:00 87 19 110/68 (82) 05/15/17 04:00 99.5 99.5 05/15/17 02:19 30.0 I&O Intake and Output 05/15/17 07:00 Intake Total 3796.28 ml Output Total 3945 ml Balance -148.72 ml IV Total 3796.28 ml Output Urine Total 3205 ml Gastric Drainage Total 225 ml Drainage Total 515 ml General: Alert, Cooperative, No acute distress Abdomen: Soft, No tenderness Labs Laboratory Tests Test 05/13/17 08:40 05/14/17 05:45 05/14/17 07:20 05/15/17 06:08 Glucose (Fingerstick) 107 mg/dL (70-99) Sodium Level 138 mmol/L (136-145) 133 mmol/L (136-145) Potassium Level 4.4 mmol/L (3.5-5.1) 4.4 mmol/L (3.5-5.1) Chloride Level 105 mmol/L (98-107) 100 mmol/L (98-107) Carbon Dioxide Level 27 mmol/L (21-32) 26 mmol/L (21-32) Anion Gap 6 (6-14) 7 (6-14) Blood Urea Nitrogen 17 mg/dL (8-26) 15 mg/dL (8-26) Creatinine 0.8 mg/dL (0.7-1.3) 0.7 mg/dL (0.7-1.3) Estimated GFR (Cockcroft-Gault) 95.3 111.2 Glucose Level 139 mg/dL (70-99) 115 mg/dL (70-99) Calcium Level 7.6 mg/dL (8.5-10.1) 7.8 mg/dL (8.5-10.1) Phosphorus Level 4.1 mg/dL (2.6-4.7) Magnesium Level 2.0 mg/dL (1.8-2.4) O2 Saturation 96 % (92-99) Arterial Blood pH 7.48 (7.35-7.45) Arterial Blood pCO2 at Patient Temp 30 mmHg (35-46) Arterial Blood pO2 at Patient Temp 89 mmHg (65-108) Arterial Blood HCO3 22 mmol/L (21-28) Arterial Blood Base Excess -1 mmol/L (-3-3) FiO2 30 Laboratory Tests Test 05/15/17 06:08 Sodium Level 133 mmol/L (136-145) Potassium Level 4.4 mmol/L (3.5-5.1) Chloride Level 100 mmol/L (98-107) Carbon Dioxide Level 26 mmol/L (21-32) Anion Gap 7 (6-14) Blood Urea Nitrogen 15 mg/dL (8-26) Creatinine 0.7 mg/dL (0.7-1.3) Estimated GFR (Cockcroft-Gault) 111.2 Glucose Level 115 mg/dL (70-99) Calcium Level 7.8 mg/dL (8.5-10.1) Problem List s/p bowel resection, s/p trach cont drains vent wean per pulm d/w family Problems: REYNA NICHOLS MD May 15, 2017 08:04
[2017-05-15 08:11] LABS: HCO3 ABG 24 mmol/L (21-28); PCO2 ABG 32 mmHg (35-46); PH ABG 7.49 (7.35-7.45); PO2 ABG 90 mmHg (65-108); SAT O2 ABG 97 % (92-99)
--- NOTE | 2017-05-15 08:14 | PDOC ---
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 rt abd , abscess draining, also cellulitis rt flank IV: ok Labs Lab Laboratory Tests Test 05/15/17 06:08 Sodium Level 133 mmol/L (136-145) Potassium Level 4.4 mmol/L (3.5-5.1) Chloride Level 100 mmol/L (98-107) Carbon Dioxide Level 26 mmol/L (21-32) Anion Gap 7 (6-14) Blood Urea Nitrogen 15 mg/dL (8-26) Creatinine 0.7 mg/dL (0.7-1.3) Estimated GFR (Cockcroft-Gault) 111.2 Glucose Level 115 mg/dL (70-99) Calcium Level 7.8 mg/dL (8.5-10.1) Objective Assessment Pelvic abscess. Gram stain: GPC, yeast, anaerobes. Culture E. coli (pansensitive ), yeast so far Sepsis with hypotension, on pressors Leukocytosis, trending up Ruptured ileo-colic anastomosis, fecal impaction s/p rigid procto, disimpaction , ex lap, resection of ileo-colic anastomosis, end ileostomy, Evans's pouch, [place] 05/05 Right flank ? cellulitis Immunosuppression Afib Thrombocytopenia, better H/o H para/Clostridium Ramsom/Bacteroides/Strep bovis January 2017 Plan Plan of Care micafungin and zosyn, zyvox F/u labs and cults d/w sig other fpc prognosis poor KELSIE CANTU MD May 15, 2017 08:14
[2017-05-15 08:23] LABS: FIO2 ABG 30
[2017-05-15 09:15] LABS: BASO # 0.1 x10^3/uL (0.0-0.2); BASO % 1 % (0-3); EOS % 1 % (0-3); HEMATOCRIT 26.3 % (39.0-53.0); HEMOGLOBIN 8.7 g/dL (13.0-17.5); LYMPH # 1.5 x10^3/uL (1.0-4.8); LYMPH % 10 % (24-48); MEAN CORPUSCULAR HEMOGLOBIN 33 pg (25-35); MEAN CORPUSCULAR HGB CONC 33 g/dL (31-37); MEAN CORPUSCULAR VOLUME 98 fL (79-100); MONO % 7 % (0-9); NEUT % 81 % (31-73); PLATELET COUNT 375 x10^3/uL (140-400); RED BLOOD COUNT 2.69 x10^6/uL (4.30-5.70); RED CELL DISTRIBUTION WIDTH 16.2 % (11.5-14.5); WHITE BLOOD COUNT 14.5 x10^3/uL (4.0-11.0)
[2017-05-15] MEDS: DIGOXIN IV 500 MCG/2 ML AMPUL. IV SCH (09:30)
[2017-05-15] MEDS: FAMOTIDINE 20 MG/2 ML VIAL IVP SCH ×2 (09:30→20:27)
[2017-05-15] MEDS: CHLORHEXIDINE 0.12% 15 ML MOUTHWASH. SWSP SCH ×2 (10:02→20:27)
[2017-05-15] MEDS: TPN PER PHARMACY MC PRN ×3 (10:34→10:45)
--- NOTE | 2017-05-15 11:40 | PDOC ---
PROGRESS NOTES Chief Complaint Chief Complaint Crohn's dz s/p R part colectomy Abd pain Pelvic abscess Respir failure Hypotension Leukocytosis Thrombocytopenia Afib with RVR CHF Hypokalemia Coagulopathy History of Present Illness History of Present Illness Patient seen in the ICU and remains vented s/p trach. Vent settings per pulm are AC/16/500/30%. Continued moderate level of alertness today - relatively same as yesterday. Patient seen at bedside with loved ones. Vitals Vitals Vital Signs Date Time Temp Pulse Resp B/P (MAP) Pulse Ox O2 Delivery O2 Flow Rate FiO2 05/15/17 11:18 100 Ventilator 05/15/17 09:30 88 98/71 05/15/17 08:45 25 3.0 05/15/17 04:00 99.5 99.5 Physical Exam General: Alert, No acute distress Heart: Regular rate, Other Lungs: Other (DECREASE BS, ERYTHEMA, DRAINS) Abdomen: Soft, No tenderness Extremities: No clubbing, Other (2-3+ edema) Skin: No rashes, Other (dark fluid drainage from abdomen) Labs LABS Laboratory Tests Test 05/15/17 06:08 05/15/17 08:00 White Blood Count 14.5 x10^3/uL (4.0-11.0) Red Blood Count 2.69 x10^6/uL (4.30-5.70) Hemoglobin 8.7 g/dL (13.0-17.5) Hematocrit 26.3 % (39.0-53.0) Mean Corpuscular Volume 98 fL (79-100) Mean Corpuscular Hemoglobin 33 pg (25-35) Mean Corpuscular Hemoglobin Concent 33 g/dL (31-37) Red Cell Distribution Width 16.2 % (11.5-14.5) Platelet Count 375 x10^3/uL (140-400) Neutrophils (%) (Auto) 81 % (31-73) Lymphocytes (%) (Auto) 10 % (24-48) Monocytes (%) (Auto) 7 % (0-9) Eosinophils (%) (Auto) 1 % (0-3) Basophils (%) (Auto) 1 % (0-3) Neutrophils # (Auto) 11.6 x10^3uL (1.8-7.7) Lymphocytes # (Auto) 1.5 x10^3/uL (1.0-4.8) Monocytes # (Auto) 1.1 x10^3/uL (0.0-1.1) Eosinophils # (Auto) 0.2 x10^3/uL (0.0-0.7) Basophils # (Auto) 0.1 x10^3/uL (0.0-0.2) Sodium Level 133 mmol/L (136-145) Potassium Level 4.4 mmol/L (3.5-5.1) Chloride Level 100 mmol/L (98-107) Carbon Dioxide Level 26 mmol/L (21-32) Anion Gap 7 (6-14) Blood Urea Nitrogen 15 mg/dL (8-26) Creatinine 0.7 mg/dL (0.7-1.3) Estimated GFR (Cockcroft-Gault) 111.2 Glucose Level 115 mg/dL (70-99) Calcium Level 7.8 mg/dL (8.5-10.1) O2 Saturation 97 % (92-99) Arterial Blood pH 7.49 (7.35-7.45) Arterial Blood pCO2 at Patient Temp 32 mmHg (35-46) Arterial Blood pO2 at Patient Temp 90 mmHg (65-108) Arterial Blood HCO3 24 mmol/L (21-28) Arterial Blood Base Excess 1 mmol/L (-3-3) FiO2 30 Review of Systems Review of Systems Patient appear to be in no acute distress. Denies n/v, SOB Assessment and Plan Assessmemt and Plan Assessment: s/p R colectomy Crohn's dz s/p R part colectomy Abd pain Pelvic abscess Respir failure Hypotension Leukocytosis Thrombocytopenia Afib with RVR CHF Hypokalemia Coagulopathy Plan: 1. Respiratory failure patient has had trach put in place. Pulm is following with ventilator settings AC/16/500/30% PEEP 5.0 2. Leukocytosis 14.5. Continuing to monitor. Continuing abx per ID recommendation. 3. Cont to monitor vitals, electrolytes 4. Cont GI prophylaxis PPI 5. Discussed plan with nursing staff 6. Appreciate the assistance of the subspecialties in this case 7. Patient still on vent - cont to wean per pulm recommendation 8. Continuing wound and supportive care 9. Appreciate the care and input of the subspecialities 10. Dispo - Probable halfway assisted care next week Problems: Comment Review of Relevant I have reviewed the following items manuel (where applicable) has been applied. Labs Laboratory Tests Test 05/14/17 05:45 05/14/17 07:20 05/15/17 06:08 05/15/17 08:00 Sodium Level 138 mmol/L (136-145) 133 mmol/L (136-145) Potassium Level 4.4 mmol/L (3.5-5.1) 4.4 mmol/L (3.5-5.1) Chloride Level 105 mmol/L (98-107) 100 mmol/L (98-107) Carbon Dioxide Level 27 mmol/L (21-32) 26 mmol/L (21-32) Anion Gap 6 (6-14) 7 (6-14) Blood Urea Nitrogen 17 mg/dL (8-26) 15 mg/dL (8-26) Creatinine 0.8 mg/dL (0.7-1.3) 0.7 mg/dL (0.7-1.3) Estimated GFR (Cockcroft-Gault) 95.3 111.2 Glucose Level 139 mg/dL (70-99) 115 mg/dL (70-99) Calcium Level 7.6 mg/dL (8.5-10.1) 7.8 mg/dL (8.5-10.1) Phosphorus Level 4.1 mg/dL (2.6-4.7) Magnesium Level 2.0 mg/dL (1.8-2.4) O2 Saturation 96 % (92-99) 97 % (92-99) Arterial Blood pH 7.48 (7.35-7.45) 7.49 (7.35-7.45) Arterial Blood pCO2 at Patient Temp 30 mmHg (35-46) 32 mmHg (35-46) Arterial Blood pO2 at Patient Temp 89 mmHg (65-108) 90 mmHg (65-108) Arterial Blood HCO3 22 mmol/L (21-28) 24 mmol/L (21-28) Arterial Blood Base Excess -1 mmol/L (-3-3) 1 mmol/L (-3-3) FiO2 30 30 White Blood Count 14.5 x10^3/uL (4.0-11.0) Red Blood Count 2.69 x10^6/uL (4.30-5.70) Hemoglobin 8.7 g/dL (13.0-17.5) Hematocrit 26.3 % (39.0-53.0) Mean Corpuscular Volume 98 fL (79-100) Mean Corpuscular Hemoglobin 33 pg (25-35) Mean Corpuscular Hemoglobin Concent 33 g/dL (31-37) Red Cell Distribution Width 16.2 % (11.5-14.5) Platelet Count 375 x10^3/uL (140-400) Neutrophils (%) (Auto) 81 % (31-73) Lymphocytes (%) (Auto) 10 % (24-48) Monocytes (%) (Auto) 7 % (0-9) Eosinophils (%) (Auto) 1 % (0-3) Basophils (%) (Auto) 1 % (0-3) Neutrophils # (Auto) 11.6 x10^3uL (1.8-7.7) Lymphocytes # (Auto) 1.5 x10^3/uL (1.0-4.8) Monocytes # (Auto) 1.1 x10^3/uL (0.0-1.1) Eosinophils # (Auto) 0.2 x10^3/uL (0.0-0.7) Basophils # (Auto) 0.1 x10^3/uL (0.0-0.2) Laboratory Tests Test 05/15/17 06:08 05/15/17 08:00 White Blood Count 14.5 x10^3/uL (4.0-11.0) Red Blood Count 2.69 x10^6/uL (4.30-5.70) Hemoglobin 8.7 g/dL (13.0-17.5) Hematocrit 26.3 % (39.0-53.0) Mean Corpuscular Volume 98 fL (79-100) Mean Corpuscular Hemoglobin 33 pg (25-35) Mean Corpuscular Hemoglobin Concent 33 g/dL (31-37) Red Cell Distribution Width 16.2 % (11.5-14.5) Platelet Count 375 x10^3/uL (140-400) Neutrophils (%) (Auto) 81 % (31-73) Lymphocytes (%) (Auto) 10 % (24-48) Monocytes (%) (Auto) 7 % (0-9) Eosinophils (%) (Auto) 1 % (0-3) Basophils (%) (Auto) 1 % (0-3) Neutrophils # (Auto) 11.6 x10^3uL (1.8-7.7) Lymphocytes # (Auto) 1.5 x10^3/uL (1.0-4.8) Monocytes # (Auto) 1.1 x10^3/uL (0.0-1.1) Eosinophils # (Auto) 0.2 x10^3/uL (0.0-0.7) Basophils # (Auto) 0.1 x10^3/uL (0.0-0.2) Sodium Level 133 mmol/L (136-145) Potassium Level 4.4 mmol/L (3.5-5.1) Chloride Level 100 mmol/L (98-107) Carbon Dioxide Level 26 mmol/L (21-32) Anion Gap 7 (6-14) Blood Urea Nitrogen 15 mg/dL (8-26) Creatinine 0.7 mg/dL (0.7-1.3) Estimated GFR (Cockcroft-Gault) 111.2 Glucose Level 115 mg/dL (70-99) Calcium Level 7.8 mg/dL (8.5-10.1) O2 Saturation 97 % (92-99) Arterial Blood pH 7.49 (7.35-7.45) Arterial Blood pCO2 at Patient Temp 32 mmHg (35-46) Arterial Blood pO2 at Patient Temp 90 mmHg (65-108) Arterial Blood HCO3 24 mmol/L (21-28) Arterial Blood Base Excess 1 mmol/L (-3-3) FiO2 30 Microbiology 05/06/17 Blood Culture - Final, Complete NO GROWTH AFTER 5 DAYS Medications Current Medications Ondansetron HCl (Zofran) 4 mg PRN Q6HRS PRN IV NAUSEA/VOMITING; Start 04/29/17 at 07:00; Stop 04/29/17 at 17:32; Status DC Fentanyl Citrate (Fentanyl 2ml Vial) 25 mcg PRN Q5MIN PRN IV MILD PAIN; Start 04/29/17 at 07:00; Stop 04/30/17 at 06:59; Status DC Fentanyl Citrate (Fentanyl 2ml Vial) 50 mcg PRN Q5MIN PRN IV MODERATE PAIN Last administered on 04/29/17t 16:59; Start 04/29/17 at 07:00; Stop 04/30/17 at 06:59; Status DC Morphine Sulfate 1 mg PRN Q10MIN PRN IV SEVERE PAIN Last administered on 16:41; Start 04/29/17 at 07:00; Stop 04/30/17 at 06:59; Status DC Ringer's Solution 1,000 ml @ 30 mls/hr Q24H IV Last administered on 04/29/17 10:42; Start 04/29/17 at 07:00; Stop 04/29/17 at 18:59; Status DC Lidocaine HCl 2 ml PRN 1X PRN ID PRIOR TO IV START; Start 04/29/17 at 07:00; Stop 04/30/17 at 06:59; Status DC Hydromorphone HCl (Dilaudid) 0.5 mg PRN Q10MIN PRN IV SEV PAIN, Second choice; Start 04/29/17 at 07:00; Stop 04/30/17 at 06:59; Status DC Prochlorperazine Edisylate (Compazine) 5 mg PACU PRN PRN IV NAUSEA, MRX1; Start 04/29/17 at 07:00; Stop 04/30/17 at 06:59; Status DC Cefoxitin Sodium 1 gm/Sodium Chloride 50 ml @ 100 mls/hr 1X ONCE IV Last administered on 04/29/17 12:00; Start 04/29/17 at 06:00; Stop 04/29/17 at 06:29 ; Status DC Dexamethasone Sodium Phosphate (Decadron) 20 mg STK-MED ONCE .ROUTE ; Start at 10:47; Stop 04/29/17 at 10:48; Status DC Ondansetron HCl (Zofran) 4 mg STK-MED ONCE .ROUTE ; Start 04/29/17 at 10:47; Stop 04/29/17 at 10:48; Status DC Propofol 20 ml @ As Directed STK-MED ONCE IV ; Start 04/29/17 at 10:47; Stop at 10:48; Status DC Lidocaine HCl (Lidocaine Pf 2% Vial) 5 ml STK-MED ONCE .ROUTE ; Start 04/29/17 at 10:47; Stop 04/29/17 at 10:48; Status DC Desflurane (Suprane) 60 ml STK-MED ONCE IH ; Start 04/29/17 at 10:47; Stop 04/29 at 10:48; Status DC Fentanyl Citrate (Fentanyl 2ml Vial) 100 mcg STK-MED ONCE .ROUTE ; Start at 10:47; Stop 04/29/17 at 10:48; Status DC Rocuronium Gar[place] (Zemuron) 50 mg STK-MED ONCE .ROUTE ; Start 04/29/17 at 10:47 ; Stop 04/29/17 at 10:48; Status DC Phenylephrine HCl 1 mg STK-MED ONCE IV ; Start 04/29/17 at 11:52; Stop 04/29/17 at 11:53; Status DC Hydrocortisone Sodium Succinate (Solu-CORTEF) 100 mg STK-MED ONCE .ROUTE ; Start 04/29/17 at 12:04; Stop 04/29/17 at 12:05; Status DC Fentanyl Citrate (Fentanyl 2ml Vial) 100 mcg STK-MED ONCE .ROUTE ; Start at 12:21; Stop 04/29/17 at 12:22; Status DC Rocuronium Gar[place] (Zemuron) 50 mg STK-MED ONCE .ROUTE ; Start 04/29/17 at 12:53 ; Stop 04/29/17 at 12:54; Status DC Labetalol HCl (Normodyne) 20 mg STK-MED ONCE .ROUTE ; Start 04/29/17 at 12:53; Stop 04/29/17 at 12:54; Status DC Fentanyl Citrate (Fentanyl 2ml Vial) 100 mcg STK-MED ONCE .ROUTE ; Start at 12:55; Stop 04/29/17 at 12:56; Status DC Esmolol HCl (Brevibloc) 100 mg STK-MED ONCE IV ; Start 04/29/17 at 12:59; Stop 04/29/17 at 13:00; Status DC Morphine Sulfate 10 mg STK-MED ONCE .ROUTE ; Start 04/29/17 at 13:03; Stop 04/29 at 13:04; Status DC Rocuronium [place] (Zemuron) 100 mg STK-MED ONCE .ROUTE ; Start 04/29/17 at 14: 10; Stop 04/29/17 at 14:11; Status DC Fentanyl Citrate (Fentanyl 2ml Vial) 100 mcg STK-MED ONCE .ROUTE ; Start at 15:08; Stop 04/29/17 at 15:09; Status DC Glycopyrrolate (Robinul) 1 mg STK-MED ONCE .ROUTE ; Start 04/29/17 at 15:29; Stop 04/29/17 at 15:30; Status DC Neostigmine Methylsulfate 5 mg STK-MED ONCE .ROUTE ; Start 04/29/17 at 15:29; Stop 04/29/17 at 15:30; Status DC Esmolol HCl (Brevibloc) 100 mg STK-MED ONCE IV ; Start 04/29/17 at 16:05; Stop 04/29/17 at 16:06; Status DC Diphenhydramine HCl (Benadryl) 25 mg PRN Q6HRS PRN IV ITCHING Last administered on 05/04/17 20:36; Start 04/29/17 at 16:30 Enoxaparin Sodium (Lovenox 40mg Syringe) 40 mg Q24H SQ Last administered on 05/10 06:27; Start 04/30/17 at 06:00; Stop 05/10/17 at 20:48; Status DC Sodium Chloride (Normal Saline Flush) 3 ml QSHIFT PRN IV AFTER MEDS AND BLOOD DRAWS; Start 04/29/17 at 16:30 Potassium Chloride/Sodium Chloride 1,000 ml @ 100 mls/hr Q10H IV Last administered on 05/01/17 00:17; Start 04/29/17 at 16:26; Stop 05/01/17 at 18:31 ; Status DC Hydromorphone HCl 30 ml @ 0 mls/hr CONT PRN PRN IV PROTOCOL Last administered on 04/30/17 18:01; Start 04/29/17 at 16:30; Stop 05/03/17 at 09:45; Status DC Ondansetron HCl (Zofran) 4 mg PRN Q6HRS PRN IV NAUESA, 1ST CHOICE; Start at 16:30; Stop 05/02/17 at 12:27; Status DC Throat Lozenges (Chloraseptic) 1 spray PRN Q2HR PRN PO SORE THROAT; Start 04/29 at 16:45; Stop 05/05/17 at 11:28; Status DC Throat Lozenges (Chloraseptic) 1 spray PRN Q2HR PRN PO SORE THROAT; Start 04/29 at 16:45; Stop 04/29/17 at 17:32; Status DC Digoxin (Lanoxin) 125 mcg DAILY PO Last administered on 05/01/17 09:32; Start 04/30/17 at 09:00; Stop 05/01/17 at 14:05; Status DC Prednisone (Prednisone) 10 mg DAILY PO ; Start 04/30/17 at 09:00; Stop 04/30/17 at 16:33; Status DC Methylprednisolone Sodium Succinate (SOLU-Medrol 40MG VIAL) 15 mg DAILY IV Last administered on 05/02/17 07:59; Start 04/30/17 at 11:00; Stop 05/02/17 at 14:00; Status DC Pantoprazole Sodium (Protonix Vial) 40 mg DAILYAC IVP Last administered on 05/02 07:57; Start 04/30/17 at 17:00; Stop 05/02/17 at 13:45; Status DC Digoxin (Lanoxin) 250 mcg DAILY PO Last administered on 05/05/17 09:29; Start 05/02/17 at 09:00; Stop 05/06/17 at 14:54; Status DC Sodium Chloride 1,000 ml @ 100 mls/hr Q10H IV Last administered on 05/04/17 03:25; Start 05/01/17 at 18:30; Stop 05/04/17 at 15:20; Status DC Nicotine (Nicoderm Cq 14mg) 1 patch PRN DAILY PRN TD SMOKING CESSATION Last administered on 05/04/17 11:15; Start 05/02/17 at 06:45 Ondansetron HCl (Zofran) 4 mg PRN Q6HRS PRN IV NAUSEA/VOMITING Last administered on 05/05/17 09:36; Start 05/02/17 at 12:30 Acetaminophen/ Hydrocodone Bitart (Lortab 5/325) 1 tab PRN Q4HRS PRN PO MILD PAIN Last administered on 05/04/17 17:13; Start 05/02/17 at 12:30 Fentanyl Citrate (Fentanyl 2ml Vial) 50 mcg PRN Q2HR PRN IV MODERATE PAIN Last administered on 05/06/17 08:14; Start 05/02/17 at 12:30; Stop 05/06/17 at 10:55 ; Status DC Famotidine (Pepcid) 20 mg DAILY IVP Last administered on 05/03/17 09:01; Start 05/03/17 at 09:00; Stop 05/03/17 at 09:45; Status DC Hydromorphone HCl (Dilaudid) 1 mg PRN Q4HRS PRN IV SEVERE PAIN Last administered on 05/04/17 11:13; Start 05/03/17 at 09:45; Stop 05/06/17 at 10:55 ; Status DC Morphine Sulfate (Ms Contin) 15 mg BID PO Last administered on 05/04/17 21:35 ; Start 05/03/17 at 09:45; Stop 05/08/17 at 09:52; Status DC Metoprolol Tartrate (Lopressor) 12.5 mg Q6HRS PO Last administered on 11:14; Start 05/03/17 at 19:00; Stop 05/04/17 at 12:51; Status DC Info 1 each PRN DAILY PRN MC SEE COMMENTS Last administered on 05/15/17 10:45; Start 05/04/17 at 11:15 Metoprolol Tartrate (Lopressor) 25 mg BID PO ; Start 05/04/17 at 21:00; Stop at 14:54; Status DC Magnesium Sulfate/ Dextrose 50 ml @ 25 mls/hr 1X ONCE IV Last administered on 05/04/17 15:46; Start 05/04/17 at 16:00; Stop 05/04/17 at 17:59; Status DC Amino Acids/ Glycerin/ Electrolytes 1,000 ml @ 80 mls/hr [id number] IV Last administered on 05/05/17 05:32; Start 05/04/17 at 16:00; Stop 05/05/17 at 21:59 ; Status DC Amino Acids/ Glycerin/ Electrolytes 1,000 ml @ 80 mls/hr [id number] IV ; Start at 15:30; Status UNV Sodium Chloride 1,000 ml @ 100 mls/hr Q10H IV Last administered on 05/05/17 16:32; Start 05/04/17 at 16:00; Stop 05/06/17 at 01:03; Status DC Albumin Human 500 ml @ 100 mls/hr 1X ONCE IV Last administered on 05/05/17 00:05; Start 05/04/17 at 22:00; Stop 05/05/17 at 02:59; Status DC Lidocaine HCl (Glydo (Lidocaine) Jelly) 1 emelia 1X ONCE MM Last administered on 05/05/17 08:30; Start 05/05/17 at 08:30; Stop 05/05/17 at 08:35; Status DC Throat Lozenges (Chloraseptic) 1 spray PRN Q2HR PRN PO SORE THROAT; Start 05/05 at 08:30 Non-Formulary Medication 1 each DAILY PO ; Start 05/06/17 at 09:00; Stop at 09:00; Status DC Non-Formulary Medication 1 tab QHS PO ; Start 05/05/17 at 21:00; Stop 05/05/17 at 21:00; Status DC Benzocaine (Hurricaine One) 1 spray 1X ONCE MM Last administered on 05/05/17 10:30; Start 05/05/17 at 10:30; Stop 05/05/17 at 10:31; Status DC Throat Lozenges (Cepacol Sore Throat Lozenge) 1 west PRN Q2HRS PRN PO SORE THROAT; Start 05/05/17 at 11:00 Albumin Human 500 ml @ 100 mls/hr 1X ONCE IV Last administered on 05/05/17 13:24; Start 05/05/17 at 11:15; Stop 05/05/17 at 16:14; Status DC Sodium Chloride 1,000 ml @ 1,000 mls/hr 1X ONCE IV ; Start 05/05/17 at 11:30; Stop 05/05/17 at 12:29; Status DC Famotidine (Pepcid) 20 mg BID IVP Last administered on 05/15/17 09:30; Start at 12:00 Amiodarone HCl 900 mg/Dextrose 518 ml @ 0 mls/hr CONT PRN IV SEE I/O RECORD Last administered on 05/05/17 13:17; Start 05/05/17 at 12:15; Stop 05/05/17 at 13:17; Status DC Amiodarone HCl 150 mg/Dextrose 103 ml @ 618 mls/hr 1X ONCE IV Last administered on 05/05/17 12:30; Start 05/05/17 at 12:30; Stop 05/05/17 at 12:39 ; Status DC Potassium Phosphate 13.6 mmol/Sodium Chloride 104.5333 ml @ 52.267 m... Q2H IV ; Start 05/05/17 at 14:30; Stop 05/05/17 at 16:29; Status DC Sodium Chloride 90 meq/Potassium Chloride 50 meq/ Potassium Phosphate 17 mmol/ Magnesium Sulfate 10 meq/Calcium Gluconate 5 meq/ Multivitamins 10 ml/Chromium/ Copper/Manganese/ Seleni/Zn 1 ml/ Total Parenteral Nutrition/Amino Acids/ Dextrose/ Fat Emulsion Intravenous 1,512 ml @ 63 mls/hr TPN CONT IV Last administered on 05/05/17 21:46; Start 05/05/17 at 22:00; Stop 05/06/17 at 21:59 ; Status DC Iohexol (Omnipaque 300 Mg/ml) 60 ml 1X ONCE IV Last administered on 05/05/17 14:50; Start 05/05/17 at 14:45; Stop 05/05/17 at 14:46; Status DC Info (Do NOT chart on this entry -- for MONITORING) 1 each PRN DAILY PRN MC SEE COMMENTS; Start 05/05/17 at 14:45; Stop 05/07/17 at 14:45; Status DC Sodium Chloride 1,000 ml @ 2,000 mls/hr 1X ONCE IV Last administered on 16:33; Start 05/05/17 at 16:00; Stop 05/05/17 at 16:29; Status DC Vancomycin HCl (Vanco Per Pharmacy) 1 each PRN DAILY PRN MC SEE COMMENTS Last administered on 05/08/17 09:08; Start 05/05/17 at 16:00; Stop 05/09/17 at 14:01 ; Status DC Piperacillin Sod/ Tazobactam Sod (Zosyn Per Pharmacy) 1 each PRN DAILY PRN MC SEE COMMENTS; Start 05/05/17 at 16:00; Stop 05/10/17 at 07:20; Status DC Piperacillin Sod/ Tazobactam Sod 4.5 gm/Sodium Chloride 100 ml @ 200 mls/hr Q6HRS IV Last administered on 05/09/17 13:02; Start 05/05/17 at 17:00; Stop 05/09/17 at 13:58; Status DC Vancomycin HCl 1.75 gm/Sodium Chloride 500 ml @ 250 mls/hr 1X ONCE IV Last administered on 05/05/17 16:30; Start 05/05/17 at 17:00; Stop 05/05/17 at 18:59 ; Status DC Potassium Chloride 50 ml @ 50 mls/hr Q1H IV Last administered on 05/05/17 16: 59; Start 05/05/17 at 16:30; Stop 05/05/17 at 19:29; Status DC Vancomycin HCl 1.25 gm/Sodium Chloride 250 ml @ 167 mls/hr Q12H IV Last administered on 05/06/17 18:57; Start 05/06/17 at 06:00; Stop 05/07/17 at 07:47 ; Status DC Vancomycin HCl 1 each 1X ONCE MC Last administered on 05/07/17 05:30; Start 05/07/17 at 05:30; Stop 05/07/17 at 05:31; Status DC Norepinephrine Bitartrate 250 ml @ As Directed STK-MED ONCE IV ; Start at 16:22; Stop 05/05/17 at 16:23; Status DC Norepinephrine Bitartrate 250 ml @ 0 mls/hr CONT PRN IV SEE I/O RECORD Last administered on 05/10/17 17:53; Start 05/05/17 at 16:45 Vasopressin 40 unit/Dextrose 102 ml @ 6 mls/hr CONT PRN IV SEE I/O RECORD Last administered on 05/09/17 19:25; Start 05/05/17 at 17:00 Phenylephrine HCl 20 mg/Sodium Chloride 252 ml @ 0 mls/hr CONT PRN IV SEE I/O RECORD Last administered on 05/06/17 06:22; Start 05/05/17 at 17:00; Stop 05/06 at 08:00; Status DC Propofol 0 ml @ As Directed STK-MED ONCE IV ; Start 05/05/17 at 17:21; Stop at 17:22; Status DC Lidocaine HCl (Lidocaine Pf 2% Vial) 5 ml STK-MED ONCE .ROUTE ; Start 05/05/17 at 17:21; Stop 05/05/17 at 17:22; Status DC Fentanyl Citrate (Fentanyl 2ml Vial) 100 mcg STK-MED ONCE .ROUTE ; Start at 17:22; Stop 05/05/17 at 17:23; Status DC Succinylcholine Chloride (Anectine) 200 mg STK-MED ONCE .ROUTE ; Start 05/05/17 at 17:22; Stop 05/05/17 at 17:23; Status DC Rocuronium [place] (Zemuron) 50 mg STK-MED ONCE .ROUTE ; Start 05/05/17 at 17:22 ; Stop 05/05/17 at 17:23; Status DC Etomidate (Amidate) 20 mg STK-MED ONCE IV ; Start 05/05/17 at 17:25; Stop at 17:26; Status DC Desflurane (Suprane) 60 ml STK-MED ONCE IH ; Start 05/05/17 at 18:02; Stop 05/05 at 18:03; Status DC Rocuronium [place] (Zemuron) 50 mg STK-MED ONCE .ROUTE ; Start 05/05/17 at 18:52 ; Stop 05/05/17 at 18:53; Status DC Phenylephrine HCl (Bhargav-Synephrine Inj) 10 mg STK-MED ONCE .ROUTE ; Start at 19:53; Stop 05/05/17 at 19:54; Status DC Propofol 100 ml @ 0 mls/hr CONT PRN IV SEE I/O RECORD Last administered on 00:03; Start 05/05/17 at 21:30 Midazolam HCl 100 ml @ 0 mls/hr CONT PRN IV SEE I/O RECORD Last administered on 05/08/17 00:43; Start 05/05/17 at 22:00; Stop 05/13/17 at 09:33; Status DC Sodium Bicarbonate 150 meq/Dextrose 1,150 ml @ 100 mls/hr [id number] IV Last administered on 05/07/17 03:44; Start 05/06/17 at 02:00; Stop 05/07/17 at 10:32 ; Status DC Micafungin Sodium 100 mg/Dextrose 100 ml @ 100 mls/hr Q24H IV Last administered on 05/09/17 08:00; Start 05/06/17 at 08:00; Stop 05/09/17 at 13:58; Status DC Phenylephrine HCl 80 mg/Sodium Chloride 258 ml @ 0 mls/hr CONT PRN IV SEE I/O RECORD Last administered on 05/06/17 08:16; Start 05/06/17 at 08:00 Potassium Phosphate 10 mmol/ Sodium Chloride 103.3333 ml @ 51.667 m... Q2H IV Last administered on 05/06/17 16:11; Start 05/06/17 at 08:30; Stop 05/06/17 at 12:29; Status DC Fentanyl Citrate 30 ml @ 0 mls/hr CONT PRN PRN IV PROTOCOL Last administered on 05/10/17 10:47; Start 05/06/17 at 10:45; Stop 05/13/17 at 09:33; Status DC Naloxone HCl (Narcan) 0.4 mg PRN Q2MIN PRN IV SEE INSTRUCTIONS; Start 05/06/17 at 10:45 Sodium Chloride 1,000 ml @ 25 mls/hr Q24H IV Last administered on 05/10/17 10: 17; Start 05/06/17 at 11:00; Stop 05/13/17 at 17:35; Status DC Norepinephrine Bitartrate 250 ml @ 0 mls/hr CONT PRN IV SEE I/O RECORD; Start 05/06/17 at 10:45; Status Cancel Sodium Chloride 90 meq/Sodium Acetate 40 meq/ Potassium Chloride 50 meq/ Potassium Phosphate 25 mmol/ Magnesium Sulfate 15 meq/Calcium Gluconate 5 meq/ Multivitamins 10 ml/Chromium/ Copper/Manganese/ Seleni/Zn 1 ml/ Total Parenteral Nutrition/Amino Acids/Dextrose/ Fat Emulsion Intravenous 1,512 ml @ 63 mls/hr TPN CONT IV Last administered on 05/06/17 21:38; Start 05/06/17 at 22:00; Stop 05/07/17 at 21:59; Status DC Famotidine (Pepcid) 20 mg BID IVP ; Start 05/06/17 at 21:00; Status UNV Digoxin (Lanoxin) 250 mcg DAILY PO ; Start 05/06/17 at 16:00; Stop 05/08/17 at 10:59; Status DC Vancomycin HCl 1 gm/Sodium Chloride 250 ml @ 250 mls/hr Q8H IV Last administered on 05/09/17 12:59; Start 05/07/17 at 08:00; Stop 05/09/17 at 13:58; Status DC Vancomycin HCl 1 each 1X ONCE MC ; Start 05/08/17 at 07:30; Stop 05/08/17 at 07 :31; Status DC Potassium Phosphate 15 mmol/ Sodium Chloride 255 ml @ 127.5 mls/ hr 1X ONCE IV Last administered on 05/07/17 10:46; Start 05/07/17 at 10:30; Stop at 12:29; Status DC Sodium Chloride 1,000 ml @ 75 mls/hr [id number] IV Last administered on 05/15/17 05:17; Start 05/07/17 at 12:00 Sodium Chloride 90 meq/Sodium Acetate 40 meq/ Potassium Chloride 50 meq/ Potassium Phosphate 25 mmol/ Magnesium Sulfate 15 meq/Calcium Gluconate 5 meq/ Multivitamins 10 ml/Chromium/ Copper/Manganese/ Seleni/Zn 1 ml/ Total Parenteral Nutrition/Amino Acids/Dextrose/ Fat Emulsion Intravenous 1,512 ml @ 63 mls/hr TPN CONT IV Last administered on 05/07/17 21:06; Start 05/07/17 at 22:00; Stop 05/08/17 at 21:59; Status DC Albumin Human 100 ml @ 100 mls/hr 1X ONCE IV Last administered on 05/07/17 21:06; Start 05/07/17 at 20:45; Stop 05/07/17 at 21:44; Status DC Potassium Phosphate 15 mmol/ Sodium Chloride 255 ml @ 85 mls/hr Q2H IV Last administered on 05/07/17 21:55; Start 05/07/17 at 22:00; Stop 05/07/17 at 23:59 ; Status DC Digoxin (Lanoxin) 250 mcg DAILY IV Last administered on 05/15/17 09:30; Start 05/08/17 at 11:15 Sodium Chloride 90 meq/Sodium Acetate 40 meq/ Potassium Chloride 50 meq/ Potassium Phosphate 20 mmol/ Magnesium Sulfate 15 meq/Calcium Gluconate 5 meq/ Multivitamins 10 ml/Chromium/ Copper/Manganese/ Seleni/Zn 1 ml/ Total Parenteral Nutrition/Amino Acids/Dextrose/ Fat Emulsion Intravenous 1,512 ml @ 63 mls/hr TPN CONT IV Last administered on 05/08/17 21:39; Start 05/08/17 at 22:00; Stop 05/09/17 at 21:59; Status DC Chlorhexidine Gluconate (Peridex) 15 ml BID SWSP Last administered on 05/15/17 10:02; Start 05/08/17 at 21:00 Multi-Ingred Cream/Lotion/Oil/ Oint (Artificial Tears Eye Oint) 1 emelia PRN Q12HR PRN OU DRY EYE Last administered on 05/08/17 16:31; Start 05/08/17 at 14:45 Sodium Chloride 90 meq/Sodium Acetate 40 meq/ Potassium Acetate 70 meq/ Potassium Phosphate 20 mmol/ Magnesium Sulfate 15 meq/Calcium Gluconate 5 meq/ Multivitamins 10 ml/Chromium/ Copper/Manganese/ Seleni/Zn 1 ml/ Total Parenteral Nutrition/Amino Acids/Dextrose/ Fat Emulsion Intravenous 1,512 ml @ 63 mls/hr TPN CONT IV Last administered on 05/09/17 22:13; Start 05/09/17 at 22 :00; Stop 05/10/17 at 21:59; Status DC Ceftriaxone Sodium 1 gm/ Sodium Chloride 50 ml @ 100 mls/hr Q24H IV Last administered on 05/11/17 15:11; Start 05/09/17 at 14:00; Stop 05/12/17 at 08:25; Status DC Sodium Chloride 60 meq/Sodium Acetate 50 meq/ Potassium Acetate 90 meq/ Potassium Phosphate 20 mmol/ Magnesium Sulfate 15 meq/Calcium Gluconate 5 meq/ Multivitamins 10 ml/Chromium/ Copper/Manganese/ Seleni/Zn 1 ml/ Total Parenteral Nutrition/Amino Acids/Dextrose/ Fat Emulsion Intravenous 1,512 ml @ 63 mls/hr TPN CONT IV Last administered on 05/10/17 21:24; Start 05/10/17 at 22 :00; Stop 05/11/17 at 21:59; Status DC Enoxaparin Sodium (Lovenox 40mg Syringe) 40 mg Q24H SQ Last administered on 05/14 23:08; Start 05/10/17 at 21:00 Sodium Chloride 40 meq/Sodium Acetate 50 meq/ Potassium Acetate 90 meq/ Potassium Phosphate 20 mmol/ Magnesium Sulfate 15 meq/Calcium Gluconate 5 meq/ Multivitamins 10 ml/Chromium/ Copper/Manganese/ Seleni/Zn 1 ml/ Total Parenteral Nutrition/Amino Acids/Dextrose/ Fat Emulsion Intravenous 1,512 ml @ 63 mls/hr TPN CONT IV Last administered on 05/11/17 20:42; Start 05/11/17 at 22 :00; Stop 05/12/17 at 21:59; Status DC Micafungin Sodium 100 mg/Dextrose 100 ml @ 100 mls/hr Q24H IV Last administered on 05/14/17 11:29; Start 05/11/17 at 12:00 Piperacillin Sod/ Tazobactam Sod 3.375 gm/Sodium Chloride 50 ml @ 100 mls/hr Q6HRS IV Last administered on 05/15/17 05:17; Start 05/12/17 at 09:00 Sodium Chloride 40 meq/Sodium Acetate 50 meq/ Potassium Acetate 90 meq/ Potassium Phosphate 20 mmol/ Magnesium Sulfate 15 meq/Calcium Gluconate 5 meq/ Multivitamins 10 ml/Chromium/ Copper/Manganese/ Seleni/Zn 1 ml/ Total Parenteral Nutrition/Amino Acids/Dextrose/ Fat Emulsion Intravenous 1,512 ml @ 63 mls/hr TPN CONT IV Last administered on 05/12/17 21:57; Start 05/12/17 at 22 :00; Stop 05/13/17 at 21:59; Status DC Albumin Human 100 ml @ 100 mls/hr 1X ONCE IV Last administered on 05/12/17 21 :05; Start 05/12/17 at 21:00; Stop 05/12/17 at 21:59; Status DC Alteplase, Recombinant (Cathflo) 2 mg 1X ONCE INT CAT Last administered on 05/12 21:04; Start 05/12/17 at 21:00; Stop 05/12/17 at 21:01; Status DC Iohexol (Omnipaque 300 Mg/ml) 75 ml 1X ONCE IV Last administered on 05/13/17 09:16; Start 05/13/17 at 09:30; Stop 05/13/17 at 09:31; Status DC Info (Do NOT chart on this entry -- for MONITORING) 1 each PRN DAILY PRN MC SEE COMMENTS; Start 05/13/17 at 07:45; Stop 05/15/17 at 07:44; Status DC Fentanyl Citrate (Fentanyl 2ml Vial) 100 mcg STK-MED ONCE .ROUTE ; Start at 09:26; Stop 05/13/17 at 09:27; Status DC Fentanyl Citrate (Fentanyl 2ml Vial) 25 mcg PRN Q2HR PRN IV PAIN Last administered on 05/15/17 08:15; Start 05/13/17 at 09:30 Fentanyl Citrate (Fentanyl 2ml Vial) 50 mcg PRN Q2HR PRN IV PAIN Last administered on 05/15/17 01:47; Start 05/13/17 at 09:45 Sodium Chloride 40 meq/Sodium Acetate 50 meq/ Potassium Acetate 90 meq/ Potassium Phosphate 20 mmol/ Magnesium Sulfate 15 meq/Calcium Gluconate 5 meq/ Multivitamins 10 ml/Chromium/ Copper/Manganese/ Seleni/Zn 1 ml/ Total Parenteral Nutrition/Amino Acids/Dextrose/ Fat Emulsion Intravenous 1,512 ml @ 63 mls/hr TPN CONT IV Last administered on 05/13/17 21:05; Start 05/13/17 at 22 :00; Stop 05/14/17 at 21:59; Status DC Linezolid 300 ml @ 300 mls/hr Q12HR IV Last administered on 05/15/17 09:29; Start 05/14/17 at 09:00 Phenylephrine HCl 1 mg STK-MED ONCE IV ; Start 05/14/17 at 10:31; Stop 05/14/17 at 10:32; Status DC Fentanyl Citrate (Fentanyl 2ml Vial) 100 mcg STK-MED ONCE .ROUTE ; Start at 10:31; Stop 05/14/17 at 10:32; Status DC Midazolam HCl (Versed) 2 mg STK-MED ONCE .ROUTE ; Start 05/14/17 at 10:31; Stop 05/14/17 at 10:32; Status DC Ephedrine Sulfate 50 mg STK-MED ONCE IV ; Start 05/14/17 at 10:31; Stop 05/14/17 at 10:32; Status DC Rocuronium [place] (Zemuron) 50 mg STK-MED ONCE .ROUTE ; Start 05/14/17 at 10:31 ; Stop 05/14/17 at 10:32; Status DC Cellulose 1 each STK-MED ONCE .ROUTE ; Start 05/14/17 at 10:43; Stop 05/14/17 at 10:44; Status DC Bupivacaine HCl/ Epinephrine Bitart (Marcaine-Epi 0.5%-[id number]) 50 ml STK-MED ONCE .ROUTE Last administered on 05/14/17 11:30; Start 05/14/17 at 10:43; Stop 05/14/17 at 10:44; Status DC Sodium Chloride 40 meq/Sodium Acetate 50 meq/ Potassium Acetate 90 meq/ Potassium Phosphate 20 mmol/ Magnesium Sulfate 15 meq/Calcium Gluconate 5 meq/ Multivitamins 10 ml/Chromium/ Copper/Manganese/ Seleni/Zn 1 ml/ Total Parenteral Nutrition/Amino Acids/Dextrose/ Fat Emulsion Intravenous 1,512 ml @ 63 mls/hr TPN CONT IV Last administered on 05/14/17 23:09; Start 05/14/17 at 22 :00; Stop 05/15/17 at 21:59 Sodium Chloride 60 meq/Sodium Acetate 50 meq/ Potassium Acetate 90 meq/ Potassium Phosphate 20 mmol/ Magnesium Sulfate 15 meq/Calcium Gluconate 5 meq/ Multivitamins 10 ml/Chromium/ Copper/Manganese/ Seleni/Zn 1 ml/ Total Parenteral Nutrition/Amino Acids/Dextrose/ Fat Emulsion Intravenous 1,512 ml @ 63 mls/hr TPN CONT IV ; Start 05/15/17 at 22:00; Stop 05/16/17 at 21:59 Active Scripts Active Reported Melatonin 3 Mg Tablet 1 Tab PO QHS Move Free [facility] Tablet (Glucosam/Chond/Hyalu/Cf Borate) 1 Each Tablet 1 Each PO DAILY Digoxin 125 Mcg Tablet 1 Tab PO DAILY Prednisone 10 Mg Tablet 10 Mg PO DAILY Vitals/I & O Vital Sign - Last 24 Hours 05/14/17 05/14/17 05/14/17 05/14/17 12:00 12:00 12:05 12:15 Temp 98.7 98.7 Pulse 90 89 Resp 23 22 B/P (MAP) 127/81 (96) 122/81 (95) Pulse Ox 100 99 100 O2 Delivery Ventilator Mechanical Ventilator Ventilator Ventilator O2 Flow Rate 30.0 05/14/17 05/14/17 05/14/17 05/14/17 12:30 12:45 13:00 13:30 Pulse 75 77 82 82 Resp 22 22 22 B/P (MAP) 116/65 (82) 110/65 (80) 127/75 (92) 107/64 (78) Pulse Ox 100 100 100 100 O2 Delivery Ventilator Ventilator Ventilator Ventilator 7/6/05/14/17 05/14/17 05/14/17 13:36 14:00 14:30 15:00 Pulse 81 82 84 B/P (MAP) 111/69 (83) 113/68 (83) 108/72 (84) Pulse Ox 99 100 100 100 O2 Delivery Ventilator Ventilator Ventilator Ventilator 05/14/17 05/14/17 05/14/17 05/14/17 16:00 16:00 16:20 17:00 Temp 99.8 99.8 Pulse 96 96 B/P (MAP) 112/68 (83) 107/72 (84) Pulse Ox 100 100 100 O2 Delivery Ventilator Mechanical Ventilator Ventilator Ventilator O2 Flow Rate 30.0 05/14/17 05/14/17 05/14/17 05/14/17 17:28 18:00 19:00 19:41 Pulse 99 94 Resp 25 B/P (MAP) 102/70 (81) 104/68 (80) Pulse Ox 100 100 100 100 O2 Delivery Ventilator Ventilator Ventilator Ventilator 05/14/17 05/14/17 05/14/17 05/14/17 20:00 20:00 20:56 21:00 Temp 100.1 100.1 Pulse 100 106 Resp 32 35 26 B/P (MAP) 123/71 (88) 128/61 (83) Pulse Ox 100 100 100 O2 Delivery Mechanical Ventilator Ventilator Ventilator Ventilator O2 Flow Rate 30.0 05/14/17 05/14/17 05/14/17 05/15/17 22:00 23:00 23:16 00:00 Pulse 110 94 Resp 34 23 B/P (MAP) 127/71 (89) 97/63 (74) Pulse Ox 99 100 100 O2 Delivery Ventilator Ventilator Ventilator Mechanical Ventilator 05/15/17 05/15/17 05/15/17 05/15/17 00:01 01:00 01:26 01:47 Temp 100.5 100.5 Pulse 106 101 Resp 29 24 32 B/P (MAP) 102/79 (87) 92/54 (67) Pulse Ox 99 100 100 99 O2 Delivery Ventilator Ventilator Ventilator Ventilator O2 Flow Rate 30.0 05/15/17 05/15/17 05/15/17 05/15/17 02:00 02:19 03:00 03:49 Temp 99.0 99.0 Pulse 90 94 Resp 18 27 27 B/P (MAP) 78/43 (55) 119/75 (90) Pulse Ox 100 100 100 100 O2 Delivery Ventilator Ventilator Ventilator Ventilator O2 Flow Rate 30.0 05/15/17 05/15/17 05/15/17 05/15/17 04:00 04:00 05:00 05:39 Temp 99.5 99.5 Pulse 84 94 Resp 17 19 B/P (MAP) 83/56 (65) 101/95 (97) Pulse Ox 100 100 100 O2 Delivery Mechanical Ventilator Ventilator Ventilator Ventilator 05/15/17 05/15/17 05/15/17 05/15/17 06:00 07:00 07:47 08:00 Pulse 97 87 Resp 22 19 B/P (MAP) 101/92 (95) 110/68 (82) Pulse Ox 99 100 100 O2 Delivery Ventilator Ventilator Ventilator Mechanical Ventilator O2 Flow Rate 3.0 05/15/17 05/15/17 05/15/17 05/15/17 08:15 08:45 08:50 09:30 Pulse 88 Resp 30 25 B/P (MAP) 98/71 Pulse Ox 100 100 100 O2 Delivery Ventilator Ventilator Ventilator O2 Flow Rate 3.0 3.0 05/15/17 11:18 Pulse Ox 100 O2 Delivery Ventilator Intake and Output 05/14/17 05/14/17 05/15/17 15:00 23:00 07:00 Intake Total 1852 ml 1944.28 ml Output Total 1250 ml 1475 ml 1220 ml Balance -1250 ml 377 ml 724.28 ml EVELIO BLANTON III, DO May 15, 2017 11:40
--- NOTE | 2017-05-15 12:03 | PDOC ---
PROGRESS NOTES Assessment Assessment Metabolic encephalopathy. Respiratory failure. AFib Sepsis Crohn's disease s/p colectomy. S/p perforation viscus. 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 RECOMMENDATIONS/PLAN: Continue Medical treatment. SUBJECTIVE: Able to understand some questions. OBJECTIVE: S/p trach placement. Past Medical History Cardiovascular: AFIB, CHF, HTN Pulmonary: COPD GI: Other (Crohn's disease) Psych: Anxiety, Addictions (alcohol, occasional marijuana, cocaine many years ago) Musculoskeletal: Osteoarthritis ENT: Other (right ear hearing loss) Renal/: Other (nephrolithiasis) Past Surgical History Past Surgical History: Hernia Repair (right inguinal and umbilical), Other ( ruptured viscus 01/23, colectomy, laparotomy) Family History Cancer Social History Has a significant other, smokes a pack of cigarettes per day and drinks at least 4 beers a day PAST MEDICAL AND SURGICAL HISTORY: Please see H&P ALLERGY: Reviewed. MEDICATIONS: Refer to MAR REVIEW OF SYSTEMS: Constitutional: No malnutrition, weight loss, cachexia. Head: No traumatic brain or head injury. Skin: No edema, or rash. Ear: No infection, tinnitus. Eyes: No vision loss, or diplopia. Nose: No bleeding or purulent discharges. Hearing: Hearing loss. Neck: No injury. Cardiac: AFib, Pulmonary: No cancer.. GI: No GI Ulcer, GI bleeding Urinary/genital: UTI. Endocrine: No cousin face, craniofacial dysmorphism, polydactyly. Skeletomuscular: generalized weakness. Neurological: see HP. Psychiatric: Denies drug use/abuse. Otherwise, not [id number] review of systems. PHYSICAL EXAMINATION: General appearance is in subacute distress. HEENT: Normocephalic and nontraumatic. Eyes, nose, ears, and throat are unremarkable. Neck is supple. No lymphadenopathy. No bruits are heard over the carotid artery. No Crepitus. Cardiovascular: S1, S2, irregular rate and rhythm. Pulmonary: Clear to auscultation bilaterally. Abdomen: Bowel sounds are positive. Extremities: No rash, lesions. No restriction of range of motion NEUROLOGICAL EXAMINATION: Awake from time to time. Not oriented to time, but knows place and person. PERRL. EOMI slow CN: no focal findings. Muscle tone: fluctuated. Muscle strength: movements noted. DTR: 2 Plantar reflex: Neutral response bilaterally Gait: not examined in bed. Sensory exam: no abnormal findings. No cerebellar signs elicited. F-T-N test not performed. Objective Objective Vital Signs Date Time Temp Pulse Resp B/P (MAP) Pulse Ox O2 Delivery O2 Flow Rate FiO2 05/15/17 11:18 100 Ventilator 05/15/17 09:30 88 98/71 05/15/17 08:45 25 3.0 05/15/17 04:00 99.5 99.5 Intake and Output 05/15/17 06:59 Intake Total 3796.28 ml Output Total 4045 ml Balance -248.72 ml IV Total 3796.28 ml Output Urine Total 3305 ml Gastric Drainage Total 225 ml Drainage Total 515 ml Vitals Signs Vitals VS - Last 72 Hours, by Label Date Time Temp Pulse Resp B/P (MAP) Pulse Ox O2 Delivery O2 Flow Rate FiO2 05/15/17 11:18 100 Ventilator 05/15/17 09:30 88 98/71 05/15/17 08:50 100 Ventilator 05/15/17 08:45 25 100 Ventilator 3.0 05/15/17 08:15 30 100 Ventilator 3.0 05/15/17 08:00 Mechanical Ventilator 3.0 05/15/17 07:47 100 Ventilator 05/15/17 07:00 87 19 110/68 (82) 100 Ventilator 05/15/17 06:00 97 22 101/92 (95) 99 Ventilator 05/15/17 05:39 100 Ventilator 05/15/17 05:00 94 19 101/95 (97) 100 Ventilator 05/15/17 04:00 99.5 84 17 83/56 (65) 100 Ventilator 99.5 05/15/17 04:00 Mechanical Ventilator 05/15/17 03:49 100 Ventilator 05/15/17 03:00 94 27 119/75 (90) 100 Ventilator 05/15/17 02:19 27 100 Ventilator 30.0 05/15/17 02:00 99.0 90 18 78/43 (55) 100 Ventilator 99.0 05/15/17 01:47 32 99 Ventilator 30.0 05/15/17 01:26 100 Ventilator 05/15/17 01:00 101 24 92/54 (67) 100 Ventilator 05/15/17 00:01 100.5 106 29 102/79 (87) 99 Ventilator 100.5 05/15/17 00:00 Mechanical Ventilator 05/14/17 23:16 100 Ventilator 05/14/17 23:00 94 23 97/63 (74) 100 Ventilator 05/14/17 22:00 110 34 127/71 (89) 99 Ventilator 05/14/17 21:00 106 26 128/61 (83) 100 Ventilator 05/14/17 20:56 35 100 Ventilator 30.0 05/14/17 20:00 100.1 100 32 123/71 (88) 100 Ventilator 100.1 05/14/17 20:00 Mechanical Ventilator 05/14/17 19:41 100 Ventilator 05/14/17 19:00 94 25 104/68 (80) 100 Ventilator 05/14/17 18:00 99 102/70 (81) 100 Ventilator 05/14/17 17:28 100 Ventilator 05/14/17 17:00 96 107/72 (84) 100 Ventilator 05/14/17 16:20 100 Ventilator 05/14/17 16:00 Mechanical Ventilator 30.0 05/14/17 16:00 99.8 96 112/68 (83) 100 Ventilator 99.8 05/14/17 15:00 84 108/72 (84) 100 Ventilator 05/14/17 14:30 82 113/68 (83) 100 Ventilator 05/14/17 14:00 81 111/69 (83) 100 Ventilator 05/14/17 13:36 99 Ventilator 05/14/17 13:30 82 107/64 (78) 100 Ventilator 05/14/17 13:00 82 22 127/75 (92) 100 Ventilator 05/14/17 12:45 77 22 110/65 (80) 100 Ventilator 05/14/17 12:30 75 22 116/65 (82) 100 Ventilator 05/14/17 12:15 89 22 122/81 (95) 100 Ventilator 05/14/17 12:05 99 Ventilator 05/14/17 12:00 Mechanical Ventilator 30.0 05/14/17 12:00 98.7 90 23 127/81 (96) 100 Ventilator 98.7 05/14/17 10:00 80 30 120/71 (87) 100 Ventilator 05/14/17 09:29 100 Ventilator 05/14/17 09:24 88 114/80 05/14/17 09:00 86 30 114/80 (91) 100 Ventilator 05/14/17 08:00 98.8 90 25 118/73 (88) 100 Ventilator 98.8 05/14/17 08:00 Mechanical Ventilator 05/14/17 07:14 100 Ventilator 05/14/17 07:00 87 24 119/79 (92) 100 Ventilator Laboratory Laboratory Laboratory Tests Test 05/15/17 06:08 05/15/17 08:00 White Blood Count 14.5 x10^3/uL (4.0-11.0) Red Blood Count 2.69 x10^6/uL (4.30-5.70) Hemoglobin 8.7 g/dL (13.0-17.5) Hematocrit 26.3 % (39.0-53.0) Mean Corpuscular Volume 98 fL (79-100) Mean Corpuscular Hemoglobin 33 pg (25-35) Mean Corpuscular Hemoglobin Concent 33 g/dL (31-37) Red Cell Distribution Width 16.2 % (11.5-14.5) Platelet Count 375 x10^3/uL (140-400) Neutrophils (%) (Auto) 81 % (31-73) Lymphocytes (%) (Auto) 10 % (24-48) Monocytes (%) (Auto) 7 % (0-9) Eosinophils (%) (Auto) 1 % (0-3) Basophils (%) (Auto) 1 % (0-3) Neutrophils # (Auto) 11.6 x10^3uL (1.8-7.7) Lymphocytes # (Auto) 1.5 x10^3/uL (1.0-4.8) Monocytes # (Auto) 1.1 x10^3/uL (0.0-1.1) Eosinophils # (Auto) 0.2 x10^3/uL (0.0-0.7) Basophils # (Auto) 0.1 x10^3/uL (0.0-0.2) Sodium Level 133 mmol/L (136-145) Potassium Level 4.4 mmol/L (3.5-5.1) Chloride Level 100 mmol/L (98-107) Carbon Dioxide Level 26 mmol/L (21-32) Anion Gap 7 (6-14) Blood Urea Nitrogen 15 mg/dL (8-26) Creatinine 0.7 mg/dL (0.7-1.3) Estimated GFR (Cockcroft-Gault) 111.2 Glucose Level 115 mg/dL (70-99) Calcium Level 7.8 mg/dL (8.5-10.1) O2 Saturation 97 % (92-99) Arterial Blood pH 7.49 (7.35-7.45) Arterial Blood pCO2 at Patient Temp 32 mmHg (35-46) Arterial Blood pO2 at Patient Temp 90 mmHg (65-108) Arterial Blood HCO3 24 mmol/L (21-28) Arterial Blood Base Excess 1 mmol/L (-3-3) FiO2 30 Microbiology 05/06/17 Blood Culture - Final, Complete NO GROWTH AFTER 5 DAYS Medication Medications Current Medications Sodium Chloride 40 meq/Sodium Acetate 50 meq/ Potassium Acetate 90 meq/ Potassium Phosphate 20 mmol/ Magnesium Sulfate 15 meq/Calcium Gluconate 5 meq/ Multivitamins 10 ml/Chromium/ Copper/Manganese/ Seleni/Zn 1 ml/ Total Parenteral Nutrition/Amino Acids/Dextrose/ Fat Emulsion Intravenous 1,512 ml @ 63 mls/hr TPN CONT IV Last administered on 05/14/17t 23:09; Start 05/14/17 at 22 :00; Stop 05/15/17 at 21:59 Sodium Chloride 60 meq/Sodium Acetate 50 meq/ Potassium Acetate 90 meq/ Potassium Phosphate 20 mmol/ Magnesium Sulfate 15 meq/Calcium Gluconate 5 meq/ Multivitamins 10 ml/Chromium/ Copper/Manganese/ Seleni/Zn 1 ml/ Total Parenteral Nutrition/Amino Acids/Dextrose/ Fat Emulsion Intravenous 1,512 ml @ 63 mls/hr TPN CONT IV ; Start 05/15/17 at 22:00; Stop 05/16/17 at 21:59 Comment Review of Relevant I have reviewed the following items manuel (where applicable) has been applied. JORGE LUIS WISDOM MD May 15, 2017 12:03
[2017-05-15] MEDS: MICAFUNGIN 100 MG in IV DEXTROSE 5% 100 ML IV SCH (12:36)
--- NOTE | 2017-05-15 14:11 | PDOC ---
PULMONARY PROGRESS NOTES Subjective MORE AWAKE FOLLOW COMMANDS Vitals Vital Signs Date Time Temp Pulse Resp B/P (MAP) Pulse Ox O2 Delivery O2 Flow Rate FiO2 05/15/17 13:13 100 Ventilator 05/15/17 12:59 29 3.0 05/15/17 12:00 98.4 86 100/63 (75) 98.4 General: Alert Lungs: Other (DECREASE BS, ERYTHEMA, DRAINS) Cardiovascular: S1 Abdomen: Other (firm) Extremities: Other (1+edema) Skin: Warm Labs Laboratory Tests Test 05/14/17 05:45 05/14/17 07:20 05/15/17 06:08 05/15/17 08:00 Sodium Level 138 mmol/L (136-145) 133 mmol/L (136-145) Potassium Level 4.4 mmol/L (3.5-5.1) 4.4 mmol/L (3.5-5.1) Chloride Level 105 mmol/L (98-107) 100 mmol/L (98-107) Carbon Dioxide Level 27 mmol/L (21-32) 26 mmol/L (21-32) Anion Gap 6 (6-14) 7 (6-14) Blood Urea Nitrogen 17 mg/dL (8-26) 15 mg/dL (8-26) Creatinine 0.8 mg/dL (0.7-1.3) 0.7 mg/dL (0.7-1.3) Estimated GFR (Cockcroft-Gault) 95.3 111.2 Glucose Level 139 mg/dL (70-99) 115 mg/dL (70-99) Calcium Level 7.6 mg/dL (8.5-10.1) 7.8 mg/dL (8.5-10.1) Phosphorus Level 4.1 mg/dL (2.6-4.7) Magnesium Level 2.0 mg/dL (1.8-2.4) O2 Saturation 96 % (92-99) 97 % (92-99) Arterial Blood pH 7.48 (7.35-7.45) 7.49 (7.35-7.45) Arterial Blood pCO2 at Patient Temp 30 mmHg (35-46) 32 mmHg (35-46) Arterial Blood pO2 at Patient Temp 89 mmHg (65-108) 90 mmHg (65-108) Arterial Blood HCO3 22 mmol/L (21-28) 24 mmol/L (21-28) Arterial Blood Base Excess -1 mmol/L (-3-3) 1 mmol/L (-3-3) FiO2 30 30 White Blood Count 14.5 x10^3/uL (4.0-11.0) Red Blood Count 2.69 x10^6/uL (4.30-5.70) Hemoglobin 8.7 g/dL (13.0-17.5) Hematocrit 26.3 % (39.0-53.0) Mean Corpuscular Volume 98 fL (79-100) Mean Corpuscular Hemoglobin 33 pg (25-35) Mean Corpuscular Hemoglobin Concent 33 g/dL (31-37) Red Cell Distribution Width 16.2 % (11.5-14.5) Platelet Count 375 x10^3/uL (140-400) Neutrophils (%) (Auto) 81 % (31-73) Lymphocytes (%) (Auto) 10 % (24-48) Monocytes (%) (Auto) 7 % (0-9) Eosinophils (%) (Auto) 1 % (0-3) Basophils (%) (Auto) 1 % (0-3) Neutrophils # (Auto) 11.6 x10^3uL (1.8-7.7) Lymphocytes # (Auto) 1.5 x10^3/uL (1.0-4.8) Monocytes # (Auto) 1.1 x10^3/uL (0.0-1.1) Eosinophils # (Auto) 0.2 x10^3/uL (0.0-0.7) Basophils # (Auto) 0.1 x10^3/uL (0.0-0.2) Laboratory Tests Test 05/15/17 06:08 05/15/17 08:00 White Blood Count 14.5 x10^3/uL (4.0-11.0) Red Blood Count 2.69 x10^6/uL (4.30-5.70) Hemoglobin 8.7 g/dL (13.0-17.5) Hematocrit 26.3 % (39.0-53.0) Mean Corpuscular Volume 98 fL (79-100) Mean Corpuscular Hemoglobin 33 pg (25-35) Mean Corpuscular Hemoglobin Concent 33 g/dL (31-37) Red Cell Distribution Width 16.2 % (11.5-14.5) Platelet Count 375 x10^3/uL (140-400) Neutrophils (%) (Auto) 81 % (31-73) Lymphocytes (%) (Auto) 10 % (24-48) Monocytes (%) (Auto) 7 % (0-9) Eosinophils (%) (Auto) 1 % (0-3) Basophils (%) (Auto) 1 % (0-3) Neutrophils # (Auto) 11.6 x10^3uL (1.8-7.7) Lymphocytes # (Auto) 1.5 x10^3/uL (1.0-4.8) Monocytes # (Auto) 1.1 x10^3/uL (0.0-1.1) Eosinophils # (Auto) 0.2 x10^3/uL (0.0-0.7) Basophils # (Auto) 0.1 x10^3/uL (0.0-0.2) Sodium Level 133 mmol/L (136-145) Potassium Level 4.4 mmol/L (3.5-5.1) Chloride Level 100 mmol/L (98-107) Carbon Dioxide Level 26 mmol/L (21-32) Anion Gap 7 (6-14) Blood Urea Nitrogen 15 mg/dL (8-26) Creatinine 0.7 mg/dL (0.7-1.3) Estimated GFR (Cockcroft-Gault) 111.2 Glucose Level 115 mg/dL (70-99) Calcium Level 7.8 mg/dL (8.5-10.1) O2 Saturation 97 % (92-99) Arterial Blood pH 7.49 (7.35-7.45) Arterial Blood pCO2 at Patient Temp 32 mmHg (35-46) Arterial Blood pO2 at Patient Temp 90 mmHg (65-108) Arterial Blood HCO3 24 mmol/L (21-28) Arterial Blood Base Excess 1 mmol/L (-3-3) FiO2 30 Medications Active Scripts Medications Dose Route/Sig Max Daily Dose Days Date Category Melatonin 3 Mg Tablet 1 Tab PO QHS 04/22/17 Reported Move Free Joint [facility] Tablet (Glucosam/Chond/Hyalu/Cf Borate) 1 Each Tablet 1 Each PO DAILY 04/22/17 Reported Digoxin 125 Mcg Tablet 1 Tab PO DAILY 04/22/17 Reported Prednisone 10 Mg Tablet 10 Mg PO DAILY 04/22/17 Reported Comments CXR .IMPRESSION: Volume loss at the left lung base likely reflecting pleural fluid and atelectasis similar to slightly worse than on the previous exam Impression . 1. Acute respiratory failure, expected post -op s/p trach 2. septic shock IMPROVED 3. Metabolic acidosis/ lactic acidosis, improving 4. chronic A-Fib 5. Crohn's Dx, who has h/o perforated viscous and underwent lap with resection . Cults + for H para/Clostridium Ramsom/Bacteroides/Strep bovis. D/cd home with Augmentin. Presented electively for an extended right colon resection with ileocolotomy 04/29. Taken back to OR ruptured ileo-colic anastomosis, fecal impaction s/p rigid procto, disimpaction, ex lap, resection of ileo-colic anastomosis, end ileostomy, Evans's pouch, 6. Toxic and metabolic encephalopathy 7. Abnormal CXR Plan . AC MODE FOR NOW SPOKE WITH DR GROSS START WEANING SOON LTAC NEXT WEEKD CXR REVIEWED off pressors nutrition tpn anttibx per NAILA ANGELES MD May 15, 2017 14:11
[2017-05-15] MEDS: ENOXAPARIN 40 MG/0.4 ML SYRINGE. SQ SCH (20:29)
[2017-05-15] MEDS ORDERED: AMINO ACIDS IV SCH ×11 (22:00)
[2017-05-15] MEDS ORDERED: DEXTROSE 70% IV SCH ×11 (22:00)
[2017-05-15] MEDS ORDERED: [UNRECOGNIZED DRUG - OTHER] IV SCH ×11 (22:00)
[2017-05-15] MEDS ORDERED: TOTAL PARENTERAL NUTRITION IV SCH ×11 (22:00)
[2017-05-16] VITALS (24 sets, daily range): BP systolic 72–118; BP diastolic 53–72
[2017-05-16] MEDS: PIPERACILLIN/TAZOBACTAM 3.375 GM in IV NORMAL SALINE 50ML 50 ML IV SCH ×4 (00:10→18:45)
[2017-05-16] MEDS: fentaNYL PF VIAL 100 MCG/2 ML VIAL IV PRN ×5 (00:11→13:37)
[2017-05-16] MEDS: PROPOFOL 100 ML IV PRN ×2 (05:55→12:32)
[2017-05-16 06:17] LABS: BASO % 0 % (0-3); EOS % 1 % (0-3); HEMATOCRIT 27.6 % (39.0-53.0); HEMOGLOBIN 9.4 g/dL (13.0-17.5); LYMPH # 1.5 x10^3/uL (1.0-4.8); LYMPH % 14 % (24-48); MEAN CORPUSCULAR HEMOGLOBIN 33 pg (25-35); MEAN CORPUSCULAR HGB CONC 34 g/dL (31-37); MEAN CORPUSCULAR VOLUME 96 fL (79-100); MONO % 10 % (0-9); NEUT % 74 % (31-73); PLATELET COUNT 375 x10^3/uL (140-400); RED BLOOD COUNT 2.87 x10^6/uL (4.30-5.70); RED CELL DISTRIBUTION WIDTH 16.9 % (11.5-14.5); WHITE BLOOD COUNT 11.3 x10^3/uL (4.0-11.0)
[2017-05-16 07:02] LABS: CALCIUM 8.1 mg/dL (8.5-10.1); CREATININE 0.6 mg/dL (0.7-1.3); GFR 132.8; POTASSIUM 4.2 mmol/L (3.5-5.1)
[2017-05-16 07:37] LABS: HCO3 ABG 26 mmol/L (21-28); PCO2 ABG 37 mmHg (35-46); PH ABG 7.45 (7.35-7.45); PO2 ABG 96 mmHg (65-108); SAT O2 ABG 97 % (92-99)
--- NOTE | 2017-05-16 07:43 | PDOC ---
Infectious Disease Note Subjective Subjective sleepy on vent ROS ROS unable to do Vital Sign Vital Signs Vital Signs Date Time Temp Pulse Resp B/P (MAP) Pulse Ox O2 Delivery O2 Flow Rate FiO2 05/16/17 07:24 100 Ventilator 05/16/17 06:26 23 05/16/17 06:00 72 92/63 (73) 05/16/17 04:00 98.9 98.9 05/15/17 18:27 3.0 Physical Exam PHYSICAL EXAM GENERAL: NAD, Alert, vant HEENT: PERRL, OC/OP NECK: Supple, no JVD, no LN LUNGS: Clear HEART: S1S2, no gallop, no murmur ABD: Soft, NT, no organomegaly, no rebound EXT: No edema, no cyanosis DIGITAL PHOTOGRAPHER: Alert, oriented x 3, no focal neurologic deficit SKIN: No rash IV: ok Labs Lab Laboratory Tests Test 05/15/17 08:00 05/16/17 06:00 O2 Saturation 97 % (92-99) Arterial Blood pH 7.49 (7.35-7.45) Arterial Blood pCO2 at Patient Temp 32 mmHg (35-46) Arterial Blood pO2 at Patient Temp 90 mmHg (65-108) Arterial Blood HCO3 24 mmol/L (21-28) Arterial Blood Base Excess 1 mmol/L (-3-3) FiO2 30 White Blood Count 11.3 x10^3/uL (4.0-11.0) Red Blood Count 2.87 x10^6/uL (4.30-5.70) Hemoglobin 9.4 g/dL (13.0-17.5) Hematocrit 27.6 % (39.0-53.0) Mean Corpuscular Volume 96 fL (79-100) Mean Corpuscular Hemoglobin 33 pg (25-35) Mean Corpuscular Hemoglobin Concent 34 g/dL (31-37) Red Cell Distribution Width 16.9 % (11.5-14.5) Platelet Count 375 x10^3/uL (140-400) Neutrophils (%) (Auto) 74 % (31-73) Lymphocytes (%) (Auto) 14 % (24-48) Monocytes (%) (Auto) 10 % (0-9) Eosinophils (%) (Auto) 1 % (0-3) Basophils (%) (Auto) 0 % (0-3) Neutrophils # (Auto) 8.4 x10^3uL (1.8-7.7) Lymphocytes # (Auto) 1.5 x10^3/uL (1.0-4.8) Monocytes # (Auto) 1.2 x10^3/uL (0.0-1.1) Eosinophils # (Auto) 0.1 x10^3/uL (0.0-0.7) Basophils # (Auto) 0.0 x10^3/uL (0.0-0.2) Sodium Level 135 mmol/L (136-145) Potassium Level 4.2 mmol/L (3.5-5.1) Chloride Level 102 mmol/L (98-107) Carbon Dioxide Level 27 mmol/L (21-32) Anion Gap 6 (6-14) Blood Urea Nitrogen 13 mg/dL (8-26) Creatinine 0.6 mg/dL (0.7-1.3) Estimated GFR (Cockcroft-Gault) 132.8 Glucose Level 110 mg/dL (70-99) Calcium Level 8.1 mg/dL (8.5-10.1) Objective Assessment Pelvic abscess. Gram stain: GPC, yeast, anaerobes. Culture E. coli (pansensitive ), yeast so far Sepsis with hypotension, on pressors Leukocytosis, trending up Ruptured ileo-colic anastomosis, fecal impaction s/p rigid procto, disimpaction , ex lap, resection of ileo-colic anastomosis, end ileostomy, Evans's pouch, [place] 05/05 Right flank ? 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
[2017-05-16] MEDS: DIGOXIN IV 500 MCG/2 ML AMPUL. IV SCH (10:01)
[2017-05-16] MEDS: TPN PER PHARMACY MC PRN (10:04)
[2017-05-16 10:15] LABS: FIO2 ABG 30
[2017-05-16] MEDS: CHLORHEXIDINE 0.12% 15 ML MOUTHWASH. SWSP SCH ×2 (10:47→21:38)
[2017-05-16] MEDS: FAMOTIDINE 20 MG/2 ML VIAL IVP SCH ×2 (10:47→21:38)
--- NOTE | 2017-05-16 11:05 | PDOC ---
SURGICAL PROGRESS NOTE Subjective Pt sleeping, appears comfortable Vital Signs Vital Signs Date Time Temp Pulse Resp B/P (MAP) Pulse Ox O2 Delivery O2 Flow Rate FiO2 05/16/17 10:57 100 Ventilator 05/16/17 10:01 81 97/63 05/16/17 10:00 29 05/16/17 04:00 98.9 98.9 05/15/17 18:27 3.0 I&O Intake and Output 05/16/17 06:59 Intake Total 2849.38 ml Output Total 6405 ml Balance -3555.62 ml Intake Oral 0 ml IV Total 2849.38 ml Output Urine Total 5575 ml Gastric Drainage Total 200 ml Drainage Total 630 ml PATIENT HAS A YANCEY: Yes (accurate i and os) Abdomen: Soft, No tenderness, Other (LASHAUN min output, ostomy fxn) Labs Laboratory Tests Test 05/15/17 06:08 05/15/17 08:00 05/16/17 06:00 05/16/17 07:33 White Blood Count 14.5 x10^3/uL (4.0-11.0) 11.3 x10^3/uL (4.0-11.0) Red Blood Count 2.69 x10^6/uL (4.30-5.70) 2.87 x10^6/uL (4.30-5.70) Hemoglobin 8.7 g/dL (13.0-17.5) 9.4 g/dL (13.0-17.5) Hematocrit 26.3 % (39.0-53.0) 27.6 % (39.0-53.0) Mean Corpuscular Volume 98 fL (79-100) 96 fL (79-100) Mean Corpuscular Hemoglobin 33 pg (25-35) 33 pg (25-35) Mean Corpuscular Hemoglobin Concent 33 g/dL (31-37) 34 g/dL (31-37) Red Cell Distribution Width 16.2 % (11.5-14.5) 16.9 % (11.5-14.5) Platelet Count 375 x10^3/uL (140-400) 375 x10^3/uL (140-400) Neutrophils (%) (Auto) 81 % (31-73) 74 % (31-73) Lymphocytes (%) (Auto) 10 % (24-48) 14 % (24-48) Monocytes (%) (Auto) 7 % (0-9) 10 % (0-9) Eosinophils (%) (Auto) 1 % (0-3) 1 % (0-3) Basophils (%) (Auto) 1 % (0-3) 0 % (0-3) Neutrophils # (Auto) 11.6 x10^3uL (1.8-7.7) 8.4 x10^3uL (1.8-7.7) Lymphocytes # (Auto) 1.5 x10^3/uL (1.0-4.8) 1.5 x10^3/uL (1.0-4.8) Monocytes # (Auto) 1.1 x10^3/uL (0.0-1.1) 1.2 x10^3/uL (0.0-1.1) Eosinophils # (Auto) 0.2 x10^3/uL (0.0-0.7) 0.1 x10^3/uL (0.0-0.7) Basophils # (Auto) 0.1 x10^3/uL (0.0-0.2) 0.0 x10^3/uL (0.0-0.2) Sodium Level 133 mmol/L (136-145) 135 mmol/L (136-145) Potassium Level 4.4 mmol/L (3.5-5.1) 4.2 mmol/L (3.5-5.1) Chloride Level 100 mmol/L (98-107) 102 mmol/L (98-107) Carbon Dioxide Level 26 mmol/L (21-32) 27 mmol/L (21-32) Anion Gap 7 (6-14) 6 (6-14) Blood Urea Nitrogen 15 mg/dL (8-26) 13 mg/dL (8-26) Creatinine 0.7 mg/dL (0.7-1.3) 0.6 mg/dL (0.7-1.3) Estimated GFR (Cockcroft-Gault) 111.2 132.8 Glucose Level 115 mg/dL (70-99) 110 mg/dL (70-99) Calcium Level 7.8 mg/dL (8.5-10.1) 8.1 mg/dL (8.5-10.1) O2 Saturation 97 % (92-99) 97 % (92-99) Arterial Blood pH 7.49 (7.35-7.45) 7.45 (7.35-7.45) Arterial Blood pCO2 at Patient Temp 32 mmHg (35-46) 37 mmHg (35-46) Arterial Blood pO2 at Patient Temp 90 mmHg (65-108) 96 mmHg (65-108) Arterial Blood HCO3 24 mmol/L (21-28) 26 mmol/L (21-28) Arterial Blood Base Excess 1 mmol/L (-3-3) 2 mmol/L (-3-3) FiO2 30 30 Laboratory Tests Test 05/16/17 06:00 05/16/17 07:33 White Blood Count 11.3 x10^3/uL (4.0-11.0) Red Blood Count 2.87 x10^6/uL (4.30-5.70) Hemoglobin 9.4 g/dL (13.0-17.5) Hematocrit 27.6 % (39.0-53.0) Mean Corpuscular Volume 96 fL (79-100) Mean Corpuscular Hemoglobin 33 pg (25-35) Mean Corpuscular Hemoglobin Concent 34 g/dL (31-37) Red Cell Distribution Width 16.9 % (11.5-14.5) Platelet Count 375 x10^3/uL (140-400) Neutrophils (%) (Auto) 74 % (31-73) Lymphocytes (%) (Auto) 14 % (24-48) Monocytes (%) (Auto) 10 % (0-9) Eosinophils (%) (Auto) 1 % (0-3) Basophils (%) (Auto) 0 % (0-3) Neutrophils # (Auto) 8.4 x10^3uL (1.8-7.7) Lymphocytes # (Auto) 1.5 x10^3/uL (1.0-4.8) Monocytes # (Auto) 1.2 x10^3/uL (0.0-1.1) Eosinophils # (Auto) 0.1 x10^3/uL (0.0-0.7) Basophils # (Auto) 0.0 x10^3/uL (0.0-0.2) Sodium Level 135 mmol/L (136-145) Potassium Level 4.2 mmol/L (3.5-5.1) Chloride Level 102 mmol/L (98-107) Carbon Dioxide Level 27 mmol/L (21-32) Anion Gap 6 (6-14) Blood Urea Nitrogen 13 mg/dL (8-26) Creatinine 0.6 mg/dL (0.7-1.3) Estimated GFR (Cockcroft-Gault) 132.8 Glucose Level 110 mg/dL (70-99) Calcium Level 8.1 mg/dL (8.5-10.1) O2 Saturation 97 % (92-99) Arterial Blood pH 7.45 (7.35-7.45) Arterial Blood pCO2 at Patient Temp 37 mmHg (35-46) Arterial Blood pO2 at Patient Temp 96 mmHg (65-108) Arterial Blood HCO3 26 mmol/L (21-28) Arterial Blood Base Excess 2 mmol/L (-3-3) FiO2 30 Assessment/Plan s/p xlap cont supportive care Problems: REYNA NICHOLS MD May 16, 2017 11:05
--- NOTE | 2017-05-16 11:10 | PDOC ---
PROGRESS NOTES Chief Complaint Chief Complaint Crohn's dz s/p R part colectomy Abd pain Pelvic abscess Respir failure Hypotension Leukocytosis Thrombocytopenia Afib with RVR CHF Hypokalemia Coagulopathy History of Present Illness History of Present Illness Patient was seen in the ICU and remains vented s/p trach. Vent settings per pulm are AC/16/500/30%. showed increased level of alertness today - improved since yesterday. Vitals Vitals Vital Signs Date Time Temp Pulse Resp B/P (MAP) Pulse Ox O2 Delivery O2 Flow Rate FiO2 05/16/17 10:57 100 Ventilator 05/16/17 10:01 81 97/63 05/16/17 10:00 29 05/16/17 04:00 98.9 98.9 05/15/17 18:27 3.0 Physical Exam General: Alert, No acute distress Heart: Regular rate, Other Lungs: Other (Decreased breath sounds - Right lower lung) Abdomen: Soft, No tenderness Extremities: No clubbing, Other (2-3+ edema) Skin: No rashes, Other (dark fluid drainage from abdomen) Labs LABS Laboratory Tests Test 05/16/17 06:00 05/16/17 07:33 White Blood Count 11.3 x10^3/uL (4.0-11.0) Red Blood Count 2.87 x10^6/uL (4.30-5.70) Hemoglobin 9.4 g/dL (13.0-17.5) Hematocrit 27.6 % (39.0-53.0) Mean Corpuscular Volume 96 fL (79-100) Mean Corpuscular Hemoglobin 33 pg (25-35) Mean Corpuscular Hemoglobin Concent 34 g/dL (31-37) Red Cell Distribution Width 16.9 % (11.5-14.5) Platelet Count 375 x10^3/uL (140-400) Neutrophils (%) (Auto) 74 % (31-73) Lymphocytes (%) (Auto) 14 % (24-48) Monocytes (%) (Auto) 10 % (0-9) Eosinophils (%) (Auto) 1 % (0-3) Basophils (%) (Auto) 0 % (0-3) Neutrophils # (Auto) 8.4 x10^3uL (1.8-7.7) Lymphocytes # (Auto) 1.5 x10^3/uL (1.0-4.8) Monocytes # (Auto) 1.2 x10^3/uL (0.0-1.1) Eosinophils # (Auto) 0.1 x10^3/uL (0.0-0.7) Basophils # (Auto) 0.0 x10^3/uL (0.0-0.2) Sodium Level 135 mmol/L (136-145) Potassium Level 4.2 mmol/L (3.5-5.1) Chloride Level 102 mmol/L (98-107) Carbon Dioxide Level 27 mmol/L (21-32) Anion Gap 6 (6-14) Blood Urea Nitrogen 13 mg/dL (8-26) Creatinine 0.6 mg/dL (0.7-1.3) Estimated GFR (Cockcroft-Gault) 132.8 Glucose Level 110 mg/dL (70-99) Calcium Level 8.1 mg/dL (8.5-10.1) O2 Saturation 97 % (92-99) Arterial Blood pH 7.45 (7.35-7.45) Arterial Blood pCO2 at Patient Temp 37 mmHg (35-46) Arterial Blood pO2 at Patient Temp 96 mmHg (65-108) Arterial Blood HCO3 26 mmol/L (21-28) Arterial Blood Base Excess 2 mmol/L (-3-3) FiO2 30 Review of Systems Review of Systems Patient appears to be cognitively improved, denies acute distress, [place], N/V Assessment and Plan Assessmemt and Plan Assessment: s/p R colectomy Crohn's dz s/p R part colectomy Abd pain Pelvic abscess Respir failure Hypotension Leukocytosis Thrombocytopenia Afib with RVR CHF Hypokalemia Coagulopathy Plan: 1. Trach still in place - pulm is following with ventilator settings AC/16/500/ 30% PEEP 5.0 2. Leukocytosis is improving 11.3. Continuing to monitor. Continuing abx per ID recommendation. 3. Cont to monitor vitals, electrolytes 4. Cont GI prophylaxis PPI 5. Discussed plan with nursing staff 6. Appreciate the assistance of the subspecialties on this case 7. Patient still on vent - cont to wean per pulm recommendation 8. Continuing wound and supportive care 9. Appreciate the care and input of the subspecialities 10. PT/OT ordered 11. TPN running; NS d/c'd 12. Dispo - L TAC planned for next week Problems: Comment Review of Relevant I have reviewed the following items manuel (where applicable) has been applied. Labs Laboratory Tests Test 05/15/17 06:08 05/15/17 08:00 05/16/17 06:00 05/16/17 07:33 White Blood Count 14.5 x10^3/uL (4.0-11.0) 11.3 x10^3/uL (4.0-11.0) Red Blood Count 2.69 x10^6/uL (4.30-5.70) 2.87 x10^6/uL (4.30-5.70) Hemoglobin 8.7 g/dL (13.0-17.5) 9.4 g/dL (13.0-17.5) Hematocrit 26.3 % (39.0-53.0) 27.6 % (39.0-53.0) Mean Corpuscular Volume 98 fL (79-100) 96 fL (79-100) Mean Corpuscular Hemoglobin 33 pg (25-35) 33 pg (25-35) Mean Corpuscular Hemoglobin Concent 33 g/dL (31-37) 34 g/dL (31-37) Red Cell Distribution Width 16.2 % (11.5-14.5) 16.9 % (11.5-14.5) Platelet Count 375 x10^3/uL (140-400) 375 x10^3/uL (140-400) Neutrophils (%) (Auto) 81 % (31-73) 74 % (31-73) Lymphocytes (%) (Auto) 10 % (24-48) 14 % (24-48) Monocytes (%) (Auto) 7 % (0-9) 10 % (0-9) Eosinophils (%) (Auto) 1 % (0-3) 1 % (0-3) Basophils (%) (Auto) 1 % (0-3) 0 % (0-3) Neutrophils # (Auto) 11.6 x10^3uL (1.8-7.7) 8.4 x10^3uL (1.8-7.7) Lymphocytes # (Auto) 1.5 x10^3/uL (1.0-4.8) 1.5 x10^3/uL (1.0-4.8) Monocytes # (Auto) 1.1 x10^3/uL (0.0-1.1) 1.2 x10^3/uL (0.0-1.1) Eosinophils # (Auto) 0.2 x10^3/uL (0.0-0.7) 0.1 x10^3/uL (0.0-0.7) Basophils # (Auto) 0.1 x10^3/uL (0.0-0.2) 0.0 x10^3/uL (0.0-0.2) Sodium Level 133 mmol/L (136-145) 135 mmol/L (136-145) Potassium Level 4.4 mmol/L (3.5-5.1) 4.2 mmol/L (3.5-5.1) Chloride Level 100 mmol/L (98-107) 102 mmol/L (98-107) Carbon Dioxide Level 26 mmol/L (21-32) 27 mmol/L (21-32) Anion Gap 7 (6-14) 6 (6-14) Blood Urea Nitrogen 15 mg/dL (8-26) 13 mg/dL (8-26) Creatinine 0.7 mg/dL (0.7-1.3) 0.6 mg/dL (0.7-1.3) Estimated GFR (Cockcroft-Gault) 111.2 132.8 Glucose Level 115 mg/dL (70-99) 110 mg/dL (70-99) Calcium Level 7.8 mg/dL (8.5-10.1) 8.1 mg/dL (8.5-10.1) O2 Saturation 97 % (92-99) 97 % (92-99) Arterial Blood pH 7.49 (7.35-7.45) 7.45 (7.35-7.45) Arterial Blood pCO2 at Patient Temp 32 mmHg (35-46) 37 mmHg (35-46) Arterial Blood pO2 at Patient Temp 90 mmHg (65-108) 96 mmHg (65-108) Arterial Blood HCO3 24 mmol/L (21-28) 26 mmol/L (21-28) Arterial Blood Base Excess 1 mmol/L (-3-3) 2 mmol/L (-3-3) FiO2 30 30 Laboratory Tests Test 05/16/17 06:00 05/16/17 07:33 White Blood Count 11.3 x10^3/uL (4.0-11.0) Red Blood Count 2.87 x10^6/uL (4.30-5.70) Hemoglobin 9.4 g/dL (13.0-17.5) Hematocrit 27.6 % (39.0-53.0) Mean Corpuscular Volume 96 fL (79-100) Mean Corpuscular Hemoglobin 33 pg (25-35) Mean Corpuscular Hemoglobin Concent 34 g/dL (31-37) Red Cell Distribution Width 16.9 % (11.5-14.5) Platelet Count 375 x10^3/uL (140-400) Neutrophils (%) (Auto) 74 % (31-73) Lymphocytes (%) (Auto) 14 % (24-48) Monocytes (%) (Auto) 10 % (0-9) Eosinophils (%) (Auto) 1 % (0-3) Basophils (%) (Auto) 0 % (0-3) Neutrophils # (Auto) 8.4 x10^3uL (1.8-7.7) Lymphocytes # (Auto) 1.5 x10^3/uL (1.0-4.8) Monocytes # (Auto) 1.2 x10^3/uL (0.0-1.1) Eosinophils # (Auto) 0.1 x10^3/uL (0.0-0.7) Basophils # (Auto) 0.0 x10^3/uL (0.0-0.2) Sodium Level 135 mmol/L (136-145) Potassium Level 4.2 mmol/L (3.5-5.1) Chloride Level 102 mmol/L (98-107) Carbon Dioxide Level 27 mmol/L (21-32) Anion Gap 6 (6-14) Blood Urea Nitrogen 13 mg/dL (8-26) Creatinine 0.6 mg/dL (0.7-1.3) Estimated GFR (Cockcroft-Gault) 132.8 Glucose Level 110 mg/dL (70-99) Calcium Level 8.1 mg/dL (8.5-10.1) O2 Saturation 97 % (92-99) Arterial Blood pH 7.45 (7.35-7.45) Arterial Blood pCO2 at Patient Temp 37 mmHg (35-46) Arterial Blood pO2 at Patient Temp 96 mmHg (65-108) Arterial Blood HCO3 26 mmol/L (21-28) Arterial Blood Base Excess 2 mmol/L (-3-3) FiO2 30 Microbiology 05/06/17 Blood Culture - Final, Complete NO GROWTH AFTER 5 DAYS 05/15/17 Gram Stain - Final, Complete Medications Current Medications Ondansetron HCl (Zofran) 4 mg PRN Q6HRS PRN IV NAUSEA/VOMITING; Start 04/29/17 at 07:00; Stop 04/29/17 at 17:32; Status DC Fentanyl Citrate (Fentanyl 2ml Vial) 25 mcg PRN Q5MIN PRN IV MILD PAIN; Start 04/29/17 at 07:00; Stop 04/30/17 at 06:59; Status DC Fentanyl Citrate (Fentanyl 2ml Vial) 50 mcg PRN Q5MIN PRN IV MODERATE PAIN Last administered on 04/29/17t 16:59; Start 04/29/17 at 07:00; Stop 04/30/17 at 06:59; Status DC Morphine Sulfate 1 mg PRN Q10MIN PRN IV SEVERE PAIN Last administered on 16:41; Start 04/29/17 at 07:00; Stop 04/30/17 at 06:59; Status DC Ringer's Solution 1,000 ml @ 30 mls/hr Q24H IV Last administered on 04/29/17 10:42; Start 04/29/17 at 07:00; Stop 04/29/17 at 18:59; Status DC Lidocaine HCl 2 ml PRN 1X PRN ID PRIOR TO IV START; Start 04/29/17 at 07:00; Stop 04/30/17 at 06:59; Status DC Hydromorphone HCl (Dilaudid) 0.5 mg PRN Q10MIN PRN IV SEV PAIN, Second choice; Start 04/29/17 at 07:00; Stop 04/30/17 at 06:59; Status DC Prochlorperazine Edisylate (Compazine) 5 mg PACU PRN PRN IV NAUSEA, MRX1; Start 04/29/17 at 07:00; Stop 04/30/17 at 06:59; Status DC Cefoxitin Sodium 1 gm/Sodium Chloride 50 ml @ 100 mls/hr 1X ONCE IV Last administered on 04/29/17t 12:00; Start 04/29/17 at 06:00; Stop 04/29/17 at 06:29 ; Status DC Dexamethasone Sodium Phosphate (Decadron) 20 mg STK-MED ONCE .ROUTE ; Start at 10:47; Stop 04/29/17 at 10:48; Status DC Ondansetron HCl (Zofran) 4 mg STK-MED ONCE .ROUTE ; Start 04/29/17 at 10:47; Stop 04/29/17 at 10:48; Status DC Propofol 20 ml @ As Directed STK-MED ONCE IV ; Start 04/29/17 at 10:47; Stop at 10:48; Status DC Lidocaine HCl (Lidocaine Pf 2% Vial) 5 ml STK-MED ONCE .ROUTE ; Start 04/29/17 at 10:47; Stop 04/29/17 at 10:48; Status DC Desflurane (Suprane) 60 ml STK-MED ONCE IH ; Start 04/29/17 at 10:47; Stop 04/29 at 10:48; Status DC Fentanyl Citrate (Fentanyl 2ml Vial) 100 mcg STK-MED ONCE .ROUTE ; Start at 10:47; Stop 04/29/17 at 10:48; Status DC Rocuronium Loco (Zemuron) 50 mg STK-MED ONCE .ROUTE ; Start 04/29/17 at 10:47 ; Stop 04/29/17 at 10:48; Status DC Phenylephrine HCl 1 mg STK-MED ONCE IV ; Start 04/29/17 at 11:52; Stop 04/29/17 at 11:53; Status DC Hydrocortisone Sodium Succinate (Solu-CORTEF) 100 mg STK-MED ONCE .ROUTE ; Start 04/29/17 at 12:04; Stop 04/29/17 at 12:05; Status DC Fentanyl Citrate (Fentanyl 2ml Vial) 100 mcg STK-MED ONCE .ROUTE ; Start at 12:21; Stop 04/29/17 at 12:22; Status DC Rocuronium Loco (Zemuron) 50 mg STK-MED ONCE .ROUTE ; Start 04/29/17 at 12:53 ; Stop 04/29/17 at 12:54; Status DC Labetalol HCl (Normodyne) 20 mg STK-MED ONCE .ROUTE ; Start 04/29/17 at 12:53; Stop 04/29/17 at 12:54; Status DC Fentanyl Citrate (Fentanyl 2ml Vial) 100 mcg STK-MED ONCE .ROUTE ; Start at 12:55; Stop 04/29/17 at 12:56; Status DC Esmolol HCl (Brevibloc) 100 mg STK-MED ONCE IV ; Start 04/29/17 at 12:59; Stop 04/29/17 at 13:00; Status DC Morphine Sulfate 10 mg STK-MED ONCE .ROUTE ; Start 04/29/17 at 13:03; Stop 04/29 at 13:04; Status DC Rocuronium Loco (Zemuron) 100 mg STK-MED ONCE .ROUTE ; Start 04/29/17 at 14: 10; Stop 04/29/17 at 14:11; Status DC Fentanyl Citrate (Fentanyl 2ml Vial) 100 mcg STK-MED ONCE .ROUTE ; Start at 15:08; Stop 04/29/17 at 15:09; Status DC Glycopyrrolate (Robinul) 1 mg STK-MED ONCE .ROUTE ; Start 04/29/17 at 15:29; Stop 04/29/17 at 15:30; Status DC Neostigmine Methylsulfate 5 mg STK-MED ONCE .ROUTE ; Start 04/29/17 at 15:29; Stop 04/29/17 at 15:30; Status DC Esmolol HCl (Brevibloc) 100 mg STK-MED ONCE IV ; Start 04/29/17 at 16:05; Stop 04/29/17 at 16:06; Status DC Diphenhydramine HCl (Benadryl) 25 mg PRN Q6HRS PRN IV ITCHING Last administered on 05/04/17t 20:36; Start 04/29/17 at 16:30 Enoxaparin Sodium (Lovenox 40mg Syringe) 40 mg Q24H SQ Last administered on 05/10 06:27; Start 04/30/17 at 06:00; Stop 05/10/17 at 20:48; Status DC Sodium Chloride (Normal Saline Flush) 3 ml QSHIFT PRN IV AFTER MEDS AND BLOOD DRAWS; Start 04/29/17 at 16:30 Potassium Chloride/Sodium Chloride 1,000 ml @ 100 mls/hr Q10H IV Last administered on 05/01/17 00:17; Start 04/29/17 at 16:26; Stop 05/01/17 at 18:31 ; Status DC Hydromorphone HCl 30 ml @ 0 mls/hr CONT PRN PRN IV PROTOCOL Last administered on 04/30/17 18:01; Start 04/29/17 at 16:30; Stop 05/03/17 at 09:45; Status DC Ondansetron HCl (Zofran) 4 mg PRN Q6HRS PRN IV NAUESA, 1ST CHOICE; Start at 16:30; Stop 05/02/17 at 12:27; Status DC Throat Lozenges (Chloraseptic) 1 spray PRN Q2HR PRN PO SORE THROAT; Start 04/29 at 16:45; Stop 05/05/17 at 11:28; Status DC Throat Lozenges (Chloraseptic) 1 spray PRN Q2HR PRN PO SORE THROAT; Start 04/29 at 16:45; Stop 04/29/17 at 17:32; Status DC Digoxin (Lanoxin) 125 mcg DAILY PO Last administered on 05/01/17 09:32; Start 04/30/17 at 09:00; Stop 05/01/17 at 14:05; Status DC Prednisone (Prednisone) 10 mg DAILY PO ; Start 04/30/17 at 09:00; Stop 04/30/17 at 16:33; Status DC Methylprednisolone Sodium Succinate (SOLU-Medrol 40MG VIAL) 15 mg DAILY IV Last administered on 05/02/17 07:59; Start 04/30/17 at 11:00; Stop 05/02/17 at 14:00; Status DC Pantoprazole Sodium (Protonix Vial) 40 mg DAILYAC IVP Last administered on 05/02 07:57; Start 04/30/17 at 17:00; Stop 05/02/17 at 13:45; Status DC Digoxin (Lanoxin) 250 mcg DAILY PO Last administered on 05/05/17 09:29; Start 05/02/17 at 09:00; Stop 05/06/17 at 14:54; Status DC Sodium Chloride 1,000 ml @ 100 mls/hr Q10H IV Last administered on 05/04/17 03:25; Start 05/01/17 at 18:30; Stop 05/04/17 at 15:20; Status DC Nicotine (Nicoderm Cq 14mg) 1 patch PRN DAILY PRN TD SMOKING CESSATION Last administered on 05/04/17 11:15; Start 05/02/17 at 06:45 Ondansetron HCl (Zofran) 4 mg PRN Q6HRS PRN IV NAUSEA/VOMITING Last administered on 05/05/17 09:36; Start 05/02/17 at 12:30 Acetaminophen/ Hydrocodone Bitart (Lortab 5/325) 1 tab PRN Q4HRS PRN PO MILD PAIN Last administered on 05/04/17 17:13; Start 05/02/17 at 12:30 Fentanyl Citrate (Fentanyl 2ml Vial) 50 mcg PRN Q2HR PRN IV MODERATE PAIN Last administered on 05/06/17 08:14; Start 05/02/17 at 12:30; Stop 05/06/17 at 10:55 ; Status DC Famotidine (Pepcid) 20 mg DAILY IVP Last administered on 05/03/17 09:01; Start 05/03/17 at 09:00; Stop 05/03/17 at 09:45; Status DC Hydromorphone HCl (Dilaudid) 1 mg PRN Q4HRS PRN IV SEVERE PAIN Last administered on 05/04/17 11:13; Start 05/03/17 at 09:45; Stop 05/06/17 at 10:55 ; Status DC Morphine Sulfate (Ms Contin) 15 mg BID PO Last administered on 05/04/17 21:35 ; Start 05/03/17 at 09:45; Stop 05/08/17 at 09:52; Status DC Metoprolol Tartrate (Lopressor) 12.5 mg Q6HRS PO Last administered on 11:14; Start 05/03/17 at 19:00; Stop 05/04/17 at 12:51; Status DC Info 1 each PRN DAILY PRN MC SEE COMMENTS Last administered on 05/16/17 10:04; Start 05/04/17 at 11:15 Metoprolol Tartrate (Lopressor) 25 mg BID PO ; Start 05/04/17 at 21:00; Stop at 14:54; Status DC Magnesium Sulfate/ Dextrose 50 ml @ 25 mls/hr 1X ONCE IV Last administered on 05/04/17 15:46; Start 05/04/17 at 16:00; Stop 05/04/17 at 17:59; Status DC Amino Acids/ Glycerin/ Electrolytes 1,000 ml @ 80 mls/hr [id number] IV Last administered on 05/05/17 05:32; Start 05/04/17 at 16:00; Stop 05/05/17 at 21:59 ; Status DC Amino Acids/ Glycerin/ Electrolytes 1,000 ml @ 80 mls/hr [id number] IV ; Start at 15:30; Status UNV Sodium Chloride 1,000 ml @ 100 mls/hr Q10H IV Last administered on 05/05/17 16:32; Start 05/04/17 at 16:00; Stop 05/06/17 at 01:03; Status DC Albumin Human 500 ml @ 100 mls/hr 1X ONCE IV Last administered on 05/05/17 00:05; Start 05/04/17 at 22:00; Stop 05/05/17 at 02:59; Status DC Lidocaine HCl (Glydo (Lidocaine) Jelly) 1 emelia 1X ONCE MM Last administered on 05/05/17 08:30; Start 05/05/17 at 08:30; Stop 05/05/17 at 08:35; Status DC Throat Lozenges (Chloraseptic) 1 spray PRN Q2HR PRN PO SORE THROAT; Start 05/05 at 08:30 Non-Formulary Medication 1 each DAILY PO ; Start 05/06/17 at 09:00; Stop at 09:00; Status DC Non-Formulary Medication 1 tab QHS PO ; Start 05/05/17 at 21:00; Stop 05/05/17 at 21:00; Status DC Benzocaine (Hurricaine One) 1 spray 1X ONCE MM Last administered on 05/05/17 10:30; Start 05/05/17 at 10:30; Stop 05/05/17 at 10:31; Status DC Throat Lozenges (Cepacol Sore Throat Lozenge) 1 west PRN Q2HRS PRN PO SORE THROAT; Start 05/05/17 at 11:00 Albumin Human 500 ml @ 100 mls/hr 1X ONCE IV Last administered on 05/05/17 13:24; Start 05/05/17 at 11:15; Stop 05/05/17 at 16:14; Status DC Sodium Chloride 1,000 ml @ 1,000 mls/hr 1X ONCE IV ; Start 05/05/17 at 11:30; Stop 05/05/17 at 12:29; Status DC Famotidine (Pepcid) 20 mg BID IVP Last administered on 05/16/17 10:47; Start at 12:00 Amiodarone HCl 900 mg/Dextrose 518 ml @ 0 mls/hr CONT PRN IV SEE I/O RECORD Last administered on 05/05/17 13:17; Start 05/05/17 at 12:15; Stop 05/05/17 at 13:17; Status DC Amiodarone HCl 150 mg/Dextrose 103 ml @ 618 mls/hr 1X ONCE IV Last administered on 05/05/17 12:30; Start 05/05/17 at 12:30; Stop 05/05/17 at 12:39 ; Status DC Potassium Phosphate 13.6 mmol/Sodium Chloride 104.5333 ml @ 52.267 m... Q2H IV ; Start 05/05/17 at 14:30; Stop 05/05/17 at 16:29; Status DC Sodium Chloride 90 meq/Potassium Chloride 50 meq/ Potassium Phosphate 17 mmol/ Magnesium Sulfate 10 meq/Calcium Gluconate 5 meq/ Multivitamins 10 ml/Chromium/ Copper/Manganese/ Seleni/Zn 1 ml/ Total Parenteral Nutrition/Amino Acids/ Dextrose/ Fat Emulsion Intravenous 1,512 ml @ 63 mls/hr TPN CONT IV Last administered on 05/05/17 21:46; Start 05/05/17 at 22:00; Stop 05/06/17 at 21:59 ; Status DC Iohexol (Omnipaque 300 Mg/ml) 60 ml 1X ONCE IV Last administered on 05/05/17 14:50; Start 05/05/17 at 14:45; Stop 05/05/17 at 14:46; Status DC Info (Do NOT chart on this entry -- for MONITORING) 1 each PRN DAILY PRN MC SEE COMMENTS; Start 05/05/17 at 14:45; Stop 05/07/17 at 14:45; Status DC Sodium Chloride 1,000 ml @ 2,000 mls/hr 1X ONCE IV Last administered on 16:33; Start 05/05/17 at 16:00; Stop 05/05/17 at 16:29; Status DC Vancomycin HCl (Vanco Per Pharmacy) 1 each PRN DAILY PRN MC SEE COMMENTS Last administered on 05/08/17 09:08; Start 05/05/17 at 16:00; Stop 05/09/17 at 14:01 ; Status DC Piperacillin Sod/ Tazobactam Sod (Zosyn Per Pharmacy) 1 each PRN DAILY PRN MC SEE COMMENTS; Start 05/05/17 at 16:00; Stop 05/10/17 at 07:20; Status DC Piperacillin Sod/ Tazobactam Sod 4.5 gm/Sodium Chloride 100 ml @ 200 mls/hr Q6HRS IV Last administered on 05/09/17 13:02; Start 05/05/17 at 17:00; Stop 05/09/17 at 13:58; Status DC Vancomycin HCl 1.75 gm/Sodium Chloride 500 ml @ 250 mls/hr 1X ONCE IV Last administered on 05/05/17 16:30; Start 05/05/17 at 17:00; Stop 05/05/17 at 18:59 ; Status DC Potassium Chloride 50 ml @ 50 mls/hr Q1H IV Last administered on 05/05/17 16: 59; Start 05/05/17 at 16:30; Stop 05/05/17 at 19:29; Status DC Vancomycin HCl 1.25 gm/Sodium Chloride 250 ml @ 167 mls/hr Q12H IV Last administered on 05/06/17 18:57; Start 05/06/17 at 06:00; Stop 05/07/17 at 07:47 ; Status DC Vancomycin HCl 1 each 1X ONCE MC Last administered on 05/07/17 05:30; Start 05/07/17 at 05:30; Stop 05/07/17 at 05:31; Status DC Norepinephrine Bitartrate 250 ml @ As Directed STK-MED ONCE IV ; Start at 16:22; Stop 05/05/17 at 16:23; Status DC Norepinephrine Bitartrate 250 ml @ 0 mls/hr CONT PRN IV SEE I/O RECORD Last administered on 05/10/17 17:53; Start 05/05/17 at 16:45 Vasopressin 40 unit/Dextrose 102 ml @ 6 mls/hr CONT PRN IV SEE I/O RECORD Last administered on 05/09/17 19:25; Start 05/05/17 at 17:00 Phenylephrine HCl 20 mg/Sodium Chloride 252 ml @ 0 mls/hr CONT PRN IV SEE I/O RECORD Last administered on 05/06/17 06:22; Start 05/05/17 at 17:00; Stop 05/06 at 08:00; Status DC Propofol 0 ml @ As Directed STK-MED ONCE IV ; Start 05/05/17 at 17:21; Stop at 17:22; Status DC Lidocaine HCl (Lidocaine Pf 2% Vial) 5 ml STK-MED ONCE .ROUTE ; Start 05/05/17 at 17:21; Stop 05/05/17 at 17:22; Status DC Fentanyl Citrate (Fentanyl 2ml Vial) 100 mcg STK-MED ONCE .ROUTE ; Start at 17:22; Stop 05/05/17 at 17:23; Status DC Succinylcholine Chloride (Anectine) 200 mg STK-MED ONCE .ROUTE ; Start 05/05/17 at 17:22; Stop 05/05/17 at 17:23; Status DC Rocuronium Loco (Zemuron) 50 mg STK-MED ONCE .ROUTE ; Start 05/05/17 at 17:22 ; Stop 05/05/17 at 17:23; Status DC Etomidate (Amidate) 20 mg STK-MED ONCE IV ; Start 05/05/17 at 17:25; Stop at 17:26; Status DC Desflurane (Suprane) 60 ml STK-MED ONCE IH ; Start 05/05/17 at 18:02; Stop 05/05 at 18:03; Status DC Rocuronium Loco (Zemuron) 50 mg STK-MED ONCE .ROUTE ; Start 05/05/17 at 18:52 ; Stop 05/05/17 at 18:53; Status DC Phenylephrine HCl (Bhargav-Synephrine Inj) 10 mg STK-MED ONCE .ROUTE ; Start at 19:53; Stop 05/05/17 at 19:54; Status DC Propofol 100 ml @ 0 mls/hr CONT PRN IV SEE I/O RECORD Last administered on 05:55; Start 05/05/17 at 21:30 Midazolam HCl 100 ml @ 0 mls/hr CONT PRN IV SEE I/O RECORD Last administered on 05/08/17 00:43; Start 05/05/17 at 22:00; Stop 05/13/17 at 09:33; Status DC Sodium Bicarbonate 150 meq/Dextrose 1,150 ml @ 100 mls/hr [id number] IV Last administered on 05/07/17 03:44; Start 05/06/17 at 02:00; Stop 05/07/17 at 10:32 ; Status DC Micafungin Sodium 100 mg/Dextrose 100 ml @ 100 mls/hr Q24H IV Last administered on 05/09/17 08:00; Start 05/06/17 at 08:00; Stop 05/09/17 at 13:58; Status DC Phenylephrine HCl 80 mg/Sodium Chloride 258 ml @ 0 mls/hr CONT PRN IV SEE I/O RECORD Last administered on 05/06/17 08:16; Start 05/06/17 at 08:00 Potassium Phosphate 10 mmol/ Sodium Chloride 103.3333 ml @ 51.667 m... Q2H IV Last administered on 05/06/17 16:11; Start 05/06/17 at 08:30; Stop 05/06/17 at 12:29; Status DC Fentanyl Citrate 30 ml @ 0 mls/hr CONT PRN PRN IV PROTOCOL Last administered on 05/10/17 10:47; Start 05/06/17 at 10:45; Stop 05/13/17 at 09:33; Status DC Naloxone HCl (Narcan) 0.4 mg PRN Q2MIN PRN IV SEE INSTRUCTIONS; Start 05/06/17 at 10:45 Sodium Chloride 1,000 ml @ 25 mls/hr Q24H IV Last administered on 05/10/17 10: 17; Start 05/06/17 at 11:00; Stop 05/13/17 at 17:35; Status DC Norepinephrine Bitartrate 250 ml @ 0 mls/hr CONT PRN IV SEE I/O RECORD; Start 05/06/17 at 10:45; Status Cancel Sodium Chloride 90 meq/Sodium Acetate 40 meq/ Potassium Chloride 50 meq/ Potassium Phosphate 25 mmol/ Magnesium Sulfate 15 meq/Calcium Gluconate 5 meq/ Multivitamins 10 ml/Chromium/ Copper/Manganese/ Seleni/Zn 1 ml/ Total Parenteral Nutrition/Amino Acids/Dextrose/ Fat Emulsion Intravenous 1,512 ml @ 63 mls/hr TPN CONT IV Last administered on 05/06/17 21:38; Start 05/06/17 at 22:00; Stop 05/07/17 at 21:59; Status DC Famotidine (Pepcid) 20 mg BID IVP ; Start 05/06/17 at 21:00; Status UNV Digoxin (Lanoxin) 250 mcg DAILY PO ; Start 05/06/17 at 16:00; Stop 05/08/17 at 10:59; Status DC Vancomycin HCl 1 gm/Sodium Chloride 250 ml @ 250 mls/hr Q8H IV Last administered on 05/09/17 12:59; Start 05/07/17 at 08:00; Stop 05/09/17 at 13:58; Status DC Vancomycin HCl 1 each 1X ONCE MC ; Start 05/08/17 at 07:30; Stop 05/08/17 at 07 :31; Status DC Potassium Phosphate 15 mmol/ Sodium Chloride 255 ml @ 127.5 mls/ hr 1X ONCE IV Last administered on 05/07/17 10:46; Start 05/07/17 at 10:30; Stop at 12:29; Status DC Sodium Chloride 1,000 ml @ 75 mls/hr [id number] IV Last administered on 05/15/17 20:26; Start 05/07/17 at 12:00 Sodium Chloride 90 meq/Sodium Acetate 40 meq/ Potassium Chloride 50 meq/ Potassium Phosphate 25 mmol/ Magnesium Sulfate 15 meq/Calcium Gluconate 5 meq/ Multivitamins 10 ml/Chromium/ Copper/Manganese/ Seleni/Zn 1 ml/ Total Parenteral Nutrition/Amino Acids/Dextrose/ Fat Emulsion Intravenous 1,512 ml @ 63 mls/hr TPN CONT IV Last administered on 05/07/17 21:06; Start 05/07/17 at 22:00; Stop 05/08/17 at 21:59; Status DC Albumin Human 100 ml @ 100 mls/hr 1X ONCE IV Last administered on 05/07/17 21:06; Start 05/07/17 at 20:45; Stop 05/07/17 at 21:44; Status DC Potassium Phosphate 15 mmol/ Sodium Chloride 255 ml @ 85 mls/hr Q2H IV Last administered on 05/07/17 21:55; Start 05/07/17 at 22:00; Stop 05/07/17 at 23:59 ; Status DC Digoxin (Lanoxin) 250 mcg DAILY IV Last administered on 05/16/17 10:01; Start 05/08/17 at 11:15 Sodium Chloride 90 meq/Sodium Acetate 40 meq/ Potassium Chloride 50 meq/ Potassium Phosphate 20 mmol/ Magnesium Sulfate 15 meq/Calcium Gluconate 5 meq/ Multivitamins 10 ml/Chromium/ Copper/Manganese/ Seleni/Zn 1 ml/ Total Parenteral Nutrition/Amino Acids/Dextrose/ Fat Emulsion Intravenous 1,512 ml @ 63 mls/hr TPN CONT IV Last administered on 05/08/17 21:39; Start 05/08/17 at 22:00; Stop 05/09/17 at 21:59; Status DC Chlorhexidine Gluconate (Peridex) 15 ml BID SWSP Last administered on 05/16/17 10:47; Start 05/08/17 at 21:00 Multi-Ingred Cream/Lotion/Oil/ Oint (Artificial Tears Eye Oint) 1 emelia PRN Q12HR PRN OU DRY EYE Last administered on 05/08/17 16:31; Start 05/08/17 at 14:45 Sodium Chloride 90 meq/Sodium Acetate 40 meq/ Potassium Acetate 70 meq/ Potassium Phosphate 20 mmol/ Magnesium Sulfate 15 meq/Calcium Gluconate 5 meq/ Multivitamins 10 ml/Chromium/ Copper/Manganese/ Seleni/Zn 1 ml/ Total Parenteral Nutrition/Amino Acids/Dextrose/ Fat Emulsion Intravenous 1,512 ml @ 63 mls/hr TPN CONT IV Last administered on 05/09/17 22:13; Start 05/09/17 at 22 :00; Stop 05/10/17 at 21:59; Status DC Ceftriaxone Sodium 1 gm/ Sodium Chloride 50 ml @ 100 mls/hr Q24H IV Last administered on 05/11/17 15:11; Start 05/09/17 at 14:00; Stop 05/12/17 at 08:25; Status DC Sodium Chloride 60 meq/Sodium Acetate 50 meq/ Potassium Acetate 90 meq/ Potassium Phosphate 20 mmol/ Magnesium Sulfate 15 meq/Calcium Gluconate 5 meq/ Multivitamins 10 ml/Chromium/ Copper/Manganese/ Seleni/Zn 1 ml/ Total Parenteral Nutrition/Amino Acids/Dextrose/ Fat Emulsion Intravenous 1,512 ml @ 63 mls/hr TPN CONT IV Last administered on 05/10/17 21:24; Start 05/10/17 at 22 :00; Stop 05/11/17 at 21:59; Status DC Enoxaparin Sodium (Lovenox 40mg Syringe) 40 mg Q24H SQ Last administered on 05/15 20:29; Start 05/10/17 at 21:00 Sodium Chloride 40 meq/Sodium Acetate 50 meq/ Potassium Acetate 90 meq/ Potassium Phosphate 20 mmol/ Magnesium Sulfate 15 meq/Calcium Gluconate 5 meq/ Multivitamins 10 ml/Chromium/ Copper/Manganese/ Seleni/Zn 1 ml/ Total Parenteral Nutrition/Amino Acids/Dextrose/ Fat Emulsion Intravenous 1,512 ml @ 63 mls/hr TPN CONT IV Last administered on 05/11/17 20:42; Start 05/11/17 at 22 :00; Stop 05/12/17 at 21:59; Status DC Micafungin Sodium 100 mg/Dextrose 100 ml @ 100 mls/hr Q24H IV Last administered on 05/15/17 12:36; Start 05/11/17 at 12:00 Piperacillin Sod/ Tazobactam Sod 3.375 gm/Sodium Chloride 50 ml @ 100 mls/hr Q6HRS IV Last administered on 05/16/17 05:55; Start 05/12/17 at 09:00 Sodium Chloride 40 meq/Sodium Acetate 50 meq/ Potassium Acetate 90 meq/ Potassium Phosphate 20 mmol/ Magnesium Sulfate 15 meq/Calcium Gluconate 5 meq/ Multivitamins 10 ml/Chromium/ Copper/Manganese/ Seleni/Zn 1 ml/ Total Parenteral Nutrition/Amino Acids/Dextrose/ Fat Emulsion Intravenous 1,512 ml @ 63 mls/hr TPN CONT IV Last administered on 05/12/17 21:57; Start 05/12/17 at 22 :00; Stop 05/13/17 at 21:59; Status DC Albumin Human 100 ml @ 100 mls/hr 1X ONCE IV Last administered on 05/12/17 21 :05; Start 05/12/17 at 21:00; Stop 05/12/17 at 21:59; Status DC Alteplase, Recombinant (Cathflo) 2 mg 1X ONCE INT CAT Last administered on 05/12 21:04; Start 05/12/17 at 21:00; Stop 05/12/17 at 21:01; Status DC Iohexol (Omnipaque 300 Mg/ml) 75 ml 1X ONCE IV Last administered on 05/13/17 09:16; Start 05/13/17 at 09:30; Stop 05/13/17 at 09:31; Status DC Info (Do NOT chart on this entry -- for MONITORING) 1 each PRN DAILY PRN MC SEE COMMENTS; Start 05/13/17 at 07:45; Stop 05/15/17 at 07:44; Status DC Fentanyl Citrate (Fentanyl 2ml Vial) 100 mcg STK-MED ONCE .ROUTE ; Start at 09:26; Stop 05/13/17 at 09:27; Status DC Fentanyl Citrate (Fentanyl 2ml Vial) 25 mcg PRN Q2HR PRN IV PAIN Last administered on 05/15/17 08:15; Start 05/13/17 at 09:30 Fentanyl Citrate (Fentanyl 2ml Vial) 50 mcg PRN Q2HR PRN IV PAIN Last administered on 05/16/17 10:00; Start 05/13/17 at 09:45 Sodium Chloride 40 meq/Sodium Acetate 50 meq/ Potassium Acetate 90 meq/ Potassium Phosphate 20 mmol/ Magnesium Sulfate 15 meq/Calcium Gluconate 5 meq/ Multivitamins 10 ml/Chromium/ Copper/Manganese/ Seleni/Zn 1 ml/ Total Parenteral Nutrition/Amino Acids/Dextrose/ Fat Emulsion Intravenous 1,512 ml @ 63 mls/hr TPN CONT IV Last administered on 05/13/17 21:05; Start 05/13/17 at 22 :00; Stop 05/14/17 at 21:59; Status DC Linezolid 300 ml @ 300 mls/hr Q12HR IV Last administered on 05/16/17 10:00; Start 05/14/17 at 09:00 Phenylephrine HCl 1 mg STK-MED ONCE IV ; Start 05/14/17 at 10:31; Stop 05/14/17 at 10:32; Status DC Fentanyl Citrate (Fentanyl 2ml Vial) 100 mcg STK-MED ONCE .ROUTE ; Start at 10:31; Stop 05/14/17 at 10:32; Status DC Midazolam HCl (Versed) 2 mg STK-MED ONCE .ROUTE ; Start 05/14/17 at 10:31; Stop 05/14/17 at 10:32; Status DC Ephedrine Sulfate 50 mg STK-MED ONCE IV ; Start 05/14/17 at 10:31; Stop 05/14/17 at 10:32; Status DC Rocuronium Loco (Zemuron) 50 mg STK-MED ONCE .ROUTE ; Start 05/14/17 at 10:31 ; Stop 05/14/17 at 10:32; Status DC Cellulose 1 each STK-MED ONCE .ROUTE ; Start 05/14/17 at 10:43; Stop 05/14/17 at 10:44; Status DC Bupivacaine HCl/ Epinephrine Bitart (Marcaine-Epi 0.5%-[id number]) 50 ml STK-MED ONCE .ROUTE Last administered on 05/14/17 11:30; Start 05/14/17 at 10:43; Stop 05/14/17 at 10:44; Status DC Sodium Chloride 40 meq/Sodium Acetate 50 meq/ Potassium Acetate 90 meq/ Potassium Phosphate 20 mmol/ Magnesium Sulfate 15 meq/Calcium Gluconate 5 meq/ Multivitamins 10 ml/Chromium/ Copper/Manganese/ Seleni/Zn 1 ml/ Total Parenteral Nutrition/Amino Acids/Dextrose/ Fat Emulsion Intravenous 1,512 ml @ 63 mls/hr TPN CONT IV Last administered on 05/14/17 23:09; Start 05/14/17 at 22 :00; Stop 05/15/17 at 21:59; Status DC Sodium Chloride 60 meq/Sodium Acetate 50 meq/ Potassium Acetate 90 meq/ Potassium Phosphate 20 mmol/ Magnesium Sulfate 15 meq/Calcium Gluconate 5 meq/ Multivitamins 10 ml/Chromium/ Copper/Manganese/ Seleni/Zn 1 ml/ Total Parenteral Nutrition/Amino Acids/Dextrose/ Fat Emulsion Intravenous 1,512 ml @ 63 mls/hr TPN CONT IV Last administered on 05/15/17 20:28; Start 05/15/17 at 22 :00; Stop 7/8/17 at 21:59 Sodium Chloride 60 meq/Sodium Acetate 50 meq/ Potassium Acetate 90 meq/ Potassium Phosphate 20 mmol/ Magnesium Sulfate 15 meq/Calcium Gluconate 5 meq/ Multivitamins 10 ml/Chromium/ Copper/Manganese/ Seleni/Zn 1 ml/ Total Parenteral Nutrition/Amino Acids/Dextrose/ Fat Emulsion Intravenous 1,512 ml @ 63 mls/hr TPN CONT IV ; Start 05/16/17 at 22:00; Stop 05/17/17 at 21:59 Active Scripts Active Reported Melatonin 3 Mg Tablet 1 Tab PO QHS Move Free Joint Health Tablet (Glucosam/Chond/Hyalu/Cf Borate) 1 Each Tablet 1 Each PO DAILY Digoxin 125 Mcg Tablet 1 Tab PO DAILY Prednisone 10 Mg Tablet 10 Mg PO DAILY Vitals/I & O Vital Sign - Last 24 Hours 05/15/17 05/15/17 05/15/17 05/15/17 11:18 12:00 12:00 12:29 Temp 98.4 98.4 Pulse 86 Resp 31 29 B/P (MAP) 100/63 (75) Pulse Ox 100 100 100 O2 Delivery Ventilator Mechanical Ventilator Ventilator Ventilator O2 Flow Rate 3.0 3.0 3.0 05/15/17 05/15/17 05/15/17 05/15/17 13:00 13:13 14:00 14:38 Pulse 84 76 Resp 23 23 29 B/P (MAP) 94/58 (70) 87/53 (64) Pulse Ox 100 100 100 30 O2 Delivery Ventilator Ventilator Ventilator Ventilator O2 Flow Rate 3.0 3.0 05/15/17 05/15/17 05/15/17 05/15/17 15:00 15:08 15:11 16:00 Pulse 88 Resp 39 B/P (MAP) 100/65 (77) Pulse Ox 30 100 O2 Delivery Ventilator Ventilator Mechanical Ventilator O2 Flow Rate 3.0 3.0 3.0 05/15/17 05/15/17 05/15/17 05/15/17 16:00 16:49 17:00 18:00 Temp 99.9 99.9 Pulse 92 90 87 Resp 33 29 24 B/P (MAP) 100/65 (77) 100/66 (77) 104/56 (72) Pulse Ox 100 100 100 100 O2 Delivery Ventilator Ventilator Ventilator Ventilator O2 Flow Rate 3.0 3.0 3.0 05/15/17 05/15/17 05/15/17 7/7/17 18:27 19:00 19:42 20:00 Temp 99.4 99.4 Pulse 83 85 Resp 28 29 28 B/P (MAP) 112/64 (80) 103/56 (72) Pulse Ox 100 100 100 100 O2 Delivery Ventilator Ventilator Ventilator Ventilator O2 Flow Rate 3.0 05/15/17 05/15/17 05/15/17 05/15/17 20:00 20:27 21:00 22:00 Pulse 83 83 Resp 24 26 24 B/P (MAP) 91/56 (68) 98/60 (73) Pulse Ox 99 100 100 O2 Delivery Mechanical Ventilator Ventilator Ventilator Ventilator 05/15/17 05/15/17 05/16/17 05/16/17 23:00 23:12 00:00 00:00 Temp 97.8 97.8 Pulse 83 79 Resp 18 B/P (MAP) 106/58 (74) 91/65 (74) Pulse Ox 100 100 100 O2 Delivery Ventilator Ventilator Ventilator Mechanical Ventilator 05/16/17 05/16/17 05/16/17 05/16/17 00:11 01:00 01:40 02:00 Pulse 81 84 Resp 28 26 33 B/P (MAP) 86/53 (64) 91/60 (70) Pulse Ox 100 100 100 100 O2 Delivery Ventilator Ventilator Ventilator 05/16/17 05/16/17 05/16/17 05/16/17 03:00 03:46 04:00 04:00 Temp 98.9 98.9 Pulse 80 78 Resp 17 24 B/P (MAP) 102/72 (82) 90/60 (70) Pulse Ox 100 100 100 O2 Delivery Ventilator Ventilator Mechanical Ventilator Ventilator 05/16/17 05/16/17 05/16/17 05/16/17 05:00 05:10 05:55 06:00 Pulse 69 72 Resp 27 24 22 B/P (MAP) 109/56 (73) 92/63 (73) Pulse Ox 100 100 100 100 O2 Delivery Ventilator Ventilator Ventilator Ventilator 05/16/17 05/16/17 05/16/17 05/16/17 06:26 07:00 07:24 08:00 Pulse 77 Resp 23 24 B/P (MAP) 92/62 (72) Pulse Ox 100 100 100 O2 Delivery Ventilator Ventilator Ventilator Mechanical Ventilator 7/805/16/17 05/16/17 05/16/17 08:00 08:13 08:59 10:00 Pulse 78 Resp 25 26 29 B/P (MAP) 86/61 (69) Pulse Ox 100 100 100 100 O2 Delivery Ventilator Ventilator Ventilator Ventilator 05/16/17 05/16/17 10:01 10:57 Pulse 81 B/P (MAP) 97/63 Pulse Ox 100 O2 Delivery Ventilator Intake and Output 05/15/17 05/15/17 05/16/17 15:00 23:00 07:00 Intake Total 533.28 ml 2316.1 ml Output Total 1800 ml 1905 ml 2800 ml Balance -1800 ml -1371.72 ml -483.9 ml EVELIO BLANTON III DO May 16, 2017 11:10
[2017-05-16] MEDS: MICAFUNGIN 100 MG in IV DEXTROSE 5% 100 ML IV SCH (12:36)
--- NOTE | 2017-05-16 15:06 | PDOC ---
PULMONARY PROGRESS NOTES Subjective MORE AWAKE FOLLOW COMMANDS Vitals Vital Signs Date Time Temp Pulse Resp B/P (MAP) Pulse Ox O2 Delivery O2 Flow Rate FiO2 05/16/17 14:59 100 Ventilator 05/16/17 10:01 81 97/63 05/16/17 10:00 29 05/16/17 04:00 98.9 98.9 05/15/17 18:27 3.0 General: Alert Lungs: Other (Decreased breath sounds - Right lower lung) Cardiovascular: S1 Abdomen: Other (firm) Extremities: Other (1+edema) Skin: Warm Labs Laboratory Tests Test 05/15/17 06:08 05/15/17 08:00 05/16/17 06:00 05/16/17 07:33 White Blood Count 14.5 x10^3/uL (4.0-11.0) 11.3 x10^3/uL (4.0-11.0) Red Blood Count 2.69 x10^6/uL (4.30-5.70) 2.87 x10^6/uL (4.30-5.70) Hemoglobin 8.7 g/dL (13.0-17.5) 9.4 g/dL (13.0-17.5) Hematocrit 26.3 % (39.0-53.0) 27.6 % (39.0-53.0) Mean Corpuscular Volume 98 fL (79-100) 96 fL (79-100) Mean Corpuscular Hemoglobin 33 pg (25-35) 33 pg (25-35) Mean Corpuscular Hemoglobin Concent 33 g/dL (31-37) 34 g/dL (31-37) Red Cell Distribution Width 16.2 % (11.5-14.5) 16.9 % (11.5-14.5) Platelet Count 375 x10^3/uL (140-400) 375 x10^3/uL (140-400) Neutrophils (%) (Auto) 81 % (31-73) 74 % (31-73) Lymphocytes (%) (Auto) 10 % (24-48) 14 % (24-48) Monocytes (%) (Auto) 7 % (0-9) 10 % (0-9) Eosinophils (%) (Auto) 1 % (0-3) 1 % (0-3) Basophils (%) (Auto) 1 % (0-3) 0 % (0-3) Neutrophils # (Auto) 11.6 x10^3uL (1.8-7.7) 8.4 x10^3uL (1.8-7.7) Lymphocytes # (Auto) 1.5 x10^3/uL (1.0-4.8) 1.5 x10^3/uL (1.0-4.8) Monocytes # (Auto) 1.1 x10^3/uL (0.0-1.1) 1.2 x10^3/uL (0.0-1.1) Eosinophils # (Auto) 0.2 x10^3/uL (0.0-0.7) 0.1 x10^3/uL (0.0-0.7) Basophils # (Auto) 0.1 x10^3/uL (0.0-0.2) 0.0 x10^3/uL (0.0-0.2) Sodium Level 133 mmol/L (136-145) 135 mmol/L (136-145) Potassium Level 4.4 mmol/L (3.5-5.1) 4.2 mmol/L (3.5-5.1) Chloride Level 100 mmol/L (98-107) 102 mmol/L (98-107) Carbon Dioxide Level 26 mmol/L (21-32) 27 mmol/L (21-32) Anion Gap 7 (6-14) 6 (6-14) Blood Urea Nitrogen 15 mg/dL (8-26) 13 mg/dL (8-26) Creatinine 0.7 mg/dL (0.7-1.3) 0.6 mg/dL (0.7-1.3) Estimated GFR (Cockcroft-Gault) 111.2 132.8 Glucose Level 115 mg/dL (70-99) 110 mg/dL (70-99) Calcium Level 7.8 mg/dL (8.5-10.1) 8.1 mg/dL (8.5-10.1) O2 Saturation 97 % (92-99) 97 % (92-99) Arterial Blood pH 7.49 (7.35-7.45) 7.45 (7.35-7.45) Arterial Blood pCO2 at Patient Temp 32 mmHg (35-46) 37 mmHg (35-46) Arterial Blood pO2 at Patient Temp 90 mmHg (65-108) 96 mmHg (65-108) Arterial Blood HCO3 24 mmol/L (21-28) 26 mmol/L (21-28) Arterial Blood Base Excess 1 mmol/L (-3-3) 2 mmol/L (-3-3) FiO2 30 30 Laboratory Tests Test 05/16/17 06:00 05/16/17 07:33 White Blood Count 11.3 x10^3/uL (4.0-11.0) Red Blood Count 2.87 x10^6/uL (4.30-5.70) Hemoglobin 9.4 g/dL (13.0-17.5) Hematocrit 27.6 % (39.0-53.0) Mean Corpuscular Volume 96 fL (79-100) Mean Corpuscular Hemoglobin 33 pg (25-35) Mean Corpuscular Hemoglobin Concent 34 g/dL (31-37) Red Cell Distribution Width 16.9 % (11.5-14.5) Platelet Count 375 x10^3/uL (140-400) Neutrophils (%) (Auto) 74 % (31-73) Lymphocytes (%) (Auto) 14 % (24-48) Monocytes (%) (Auto) 10 % (0-9) Eosinophils (%) (Auto) 1 % (0-3) Basophils (%) (Auto) 0 % (0-3) Neutrophils # (Auto) 8.4 x10^3uL (1.8-7.7) Lymphocytes # (Auto) 1.5 x10^3/uL (1.0-4.8) Monocytes # (Auto) 1.2 x10^3/uL (0.0-1.1) Eosinophils # (Auto) 0.1 x10^3/uL (0.0-0.7) Basophils # (Auto) 0.0 x10^3/uL (0.0-0.2) Sodium Level 135 mmol/L (136-145) Potassium Level 4.2 mmol/L (3.5-5.1) Chloride Level 102 mmol/L (98-107) Carbon Dioxide Level 27 mmol/L (21-32) Anion Gap 6 (6-14) Blood Urea Nitrogen 13 mg/dL (8-26) Creatinine 0.6 mg/dL (0.7-1.3) Estimated GFR (Cockcroft-Gault) 132.8 Glucose Level 110 mg/dL (70-99) Calcium Level 8.1 mg/dL (8.5-10.1) O2 Saturation 97 % (92-99) Arterial Blood pH 7.45 (7.35-7.45) Arterial Blood pCO2 at Patient Temp 37 mmHg (35-46) Arterial Blood pO2 at Patient Temp 96 mmHg (65-108) Arterial Blood HCO3 26 mmol/L (21-28) Arterial Blood Base Excess 2 mmol/L (-3-3) FiO2 30 Medications Active Scripts Medications Dose Route/Sig Max Daily Dose Days Date Category Melatonin 3 Mg Tablet 1 Tab PO QHS 04/22/17 Reported Move Free Joint LearnVest Tablet (Glucosam/Chond/Hyalu/Cf Borate) 1 Each Tablet 1 Each PO DAILY 04/22/17 Reported Digoxin 125 Mcg Tablet 1 Tab PO DAILY 04/22/17 Reported Prednisone 10 Mg Tablet 10 Mg PO DAILY 04/22/17 Reported Comments CXR .IMPRESSION: Volume loss at the left lung base likely reflecting pleural fluid and atelectasis similar to slightly worse than on the previous exam Impression . 1. Acute respiratory failure, expected post -op s/p trach 2. septic shock IMPROVED 3. Metabolic acidosis/ lactic acidosis, improving 4. chronic A-Fib 5. Crohn's Dx, who has h/o perforated viscous and underwent lap with resection . Cults + for H para/Clostridium Ramsom/Bacteroides/Strep bovis. D/cd home with Augmentin. Presented electively for an extended right colon resection with ileocolotomy 04/29. Taken back to OR ruptured ileo-colic anastomosis, fecal impaction s/p rigid procto, disimpaction, ex lap, resection of ileo-colic anastomosis, end ileostomy, Evans's pouch, 6. Toxic and metabolic encephalopathy 7. Abnormal CXR Plan . AC MODE FOR NOW SPOKE WITH X- WILL START WEAN ON THURSDAY START WEANING SOON LTAC NEXT WEEKD CXR REVIEWED ANTIBX PER NAILA ANGELES MD May 16, 2017 15:06
[2017-05-16] MEDS: ENOXAPARIN 40 MG/0.4 ML SYRINGE. SQ SCH (21:38)
[2017-05-16] MEDS ORDERED: TOTAL PARENTERAL NUTRITION IV SCH ×11 (22:00)
[2017-05-16] MEDS ORDERED: DEXTROSE 70% IV SCH ×11 (22:00)
[2017-05-16] MEDS ORDERED: [UNRECOGNIZED DRUG - OTHER] IV SCH ×11 (22:00)
[2017-05-16] MEDS ORDERED: AMINO ACIDS IV SCH ×11 (22:00)
[2017-05-17] VITALS (22 sets, daily range): BP systolic 80–133; BP diastolic 55–74
[2017-05-17] MEDS: PIPERACILLIN/TAZOBACTAM 3.375 GM in IV NORMAL SALINE 50ML 50 ML IV SCH ×5 (00:42→23:52)
[2017-05-17] MEDS: fentaNYL PF VIAL 100 MCG/2 ML VIAL IV PRN ×4 (00:43→12:25)
[2017-05-17] MEDS: PROPOFOL 100 ML IV PRN (03:44)
[2017-05-17 06:21] LABS: CALCIUM 7.9 mg/dL (8.5-10.1); CREATININE 0.7 mg/dL (0.7-1.3); GFR 111.2; POTASSIUM 4.4 mmol/L (3.5-5.1)
[2017-05-17 06:25] LABS: MAGNESIUM 1.9 mg/dL (1.8-2.4); PHOSPHORUS 4.2 mg/dL (2.6-4.7)
--- NOTE | 2017-05-17 06:28 | PDOC ---
Infectious Disease Note Subjective Subjective sleepy on vent but arousable ROS ROS Unobtainable Vital Sign Vital Signs Vital Signs Date Time Temp Pulse Resp B/P (MAP) Pulse Ox O2 Delivery O2 Flow Rate FiO2 05/17/17 06:00 78 22 90/60 (70) 100 TRACH/VENT 05/17/17 03:39 3.0 05/16/17 19:00 98.4 98.4 Physical Exam PHYSICAL EXAM GENERAL: NAD, Alert HEENT: PERRL, OC/OP- dry NECK: Supple, no JVD, no LN, trach LUNGS: Clear HEART: S1S2, no gallop, no murmur ABD: Soft, ostomy, +drainage from base of ostomy Wagner EXT: No edema, no cyanosis CARBON SETTER: Alert, oriented x 3, no focal neurologic deficit SKIN: No rash IV: PICC - clean Labs Lab Laboratory Tests Test 05/16/17 07:33 O2 Saturation 97 % (92-99) Arterial Blood pH 7.45 (7.35-7.45) Arterial Blood pCO2 at Patient Temp 37 mmHg (35-46) Arterial Blood pO2 at Patient Temp 96 mmHg (65-108) Arterial Blood HCO3 26 mmol/L (21-28) Arterial Blood Base Excess 2 mmol/L (-3-3) FiO2 30 Objective Assessment Pelvic abscess. Gram stain: GPC, yeast, anaerobes. Culture E. coli (pansensitive ), yeast so far. GNR from 05/15 Sepsis with hypotension, on pressors Leukocytosis, better Ruptured ileo-colic anastomosis, fecal impaction s/p rigid procto, disimpaction , ex lap, resection of ileo-colic anastomosis, end ileostomy, Evans's pouch, DALLIN 05/05 Right flank ? 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
[2017-05-17 06:32] LABS: BASO # 0.1 x10^3/uL (0.0-0.2); BASO % 1 % (0-3); EOS % 1 % (0-3); HEMATOCRIT 28.8 % (39.0-53.0); HEMOGLOBIN 9.8 g/dL (13.0-17.5); LYMPH # 1.7 x10^3/uL (1.0-4.8); LYMPH % 14 % (24-48); MEAN CORPUSCULAR HEMOGLOBIN 32 pg (25-35); MEAN CORPUSCULAR HGB CONC 34 g/dL (31-37); MEAN CORPUSCULAR VOLUME 95 fL (79-100); MONO % 12 % (0-9); NEUT % 72 % (31-73); PLATELET COUNT 455 x10^3/uL (140-400); RED BLOOD COUNT 3.04 x10^6/uL (4.30-5.70); WHITE BLOOD COUNT 11.8 x10^3/uL (4.0-11.0)
[2017-05-17] MEDS: CHLORHEXIDINE 0.12% 15 ML MOUTHWASH. SWSP SCH ×2 (08:54→20:27)
[2017-05-17] MEDS: FAMOTIDINE 20 MG/2 ML VIAL IVP SCH ×2 (08:54→20:27)
[2017-05-17] MEDS: DIGOXIN IV 500 MCG/2 ML AMPUL. IV SCH (08:56)
[2017-05-17] MEDS: TPN PER PHARMACY MC PRN (09:05)
--- NOTE | 2017-05-17 10:56 | PDOC ---
SURGICAL PROGRESS NOTE Subjective Pt sitting in chair, nursing notes tachypneic with pain Vital Signs Vital Signs Date Time Temp Pulse Resp B/P (MAP) Pulse Ox O2 Delivery O2 Flow Rate FiO2 05/17/17 10:00 82 26 105/74 (84) 100 Ventilator 05/17/17 08:00 96.9 96.9 05/17/17 03:39 3.0 I&O Intake and Output 05/17/17 07:00 Intake Total 3513.24 ml Output Total 4240 ml Balance -726.76 ml IV Total 3063.24 ml Other 450 ml Output Urine Total 3435 ml Gastric Drainage Total 0 ml Drainage Total 805 ml PATIENT HAS A YANCEY: Yes (accurate i and os) General: Alert Abdomen: Soft, No tenderness, Other (ostomy fxn, abd wall drainage inferior to ostomy with cellulitis) Labs Laboratory Tests Test 05/16/17 06:00 05/16/17 07:33 05/17/17 06:00 White Blood Count 11.3 x10^3/uL (4.0-11.0) 11.8 x10^3/uL (4.0-11.0) Red Blood Count 2.87 x10^6/uL (4.30-5.70) 3.04 x10^6/uL (4.30-5.70) Hemoglobin 9.4 g/dL (13.0-17.5) 9.8 g/dL (13.0-17.5) Hematocrit 27.6 % (39.0-53.0) 28.8 % (39.0-53.0) Mean Corpuscular Volume 96 fL (79-100) 95 fL (79-100) Mean Corpuscular Hemoglobin 33 pg (25-35) 32 pg (25-35) Mean Corpuscular Hemoglobin Concent 34 g/dL (31-37) 34 g/dL (31-37) Red Cell Distribution Width 16.9 % (11.5-14.5) 16.0 % (11.5-14.5) Platelet Count 375 x10^3/uL (140-400) 455 x10^3/uL (140-400) Neutrophils (%) (Auto) 74 % (31-73) 72 % (31-73) Lymphocytes (%) (Auto) 14 % (24-48) 14 % (24-48) Monocytes (%) (Auto) 10 % (0-9) 12 % (0-9) Eosinophils (%) (Auto) 1 % (0-3) 1 % (0-3) Basophils (%) (Auto) 0 % (0-3) 1 % (0-3) Neutrophils # (Auto) 8.4 x10^3uL (1.8-7.7) 8.4 x10^3uL (1.8-7.7) Lymphocytes # (Auto) 1.5 x10^3/uL (1.0-4.8) 1.7 x10^3/uL (1.0-4.8) Monocytes # (Auto) 1.2 x10^3/uL (0.0-1.1) 1.4 x10^3/uL (0.0-1.1) Eosinophils # (Auto) 0.1 x10^3/uL (0.0-0.7) 0.1 x10^3/uL (0.0-0.7) Basophils # (Auto) 0.0 x10^3/uL (0.0-0.2) 0.1 x10^3/uL (0.0-0.2) Sodium Level 135 mmol/L (136-145) 135 mmol/L (136-145) Potassium Level 4.2 mmol/L (3.5-5.1) 4.4 mmol/L (3.5-5.1) Chloride Level 102 mmol/L (98-107) 101 mmol/L (98-107) Carbon Dioxide Level 27 mmol/L (21-32) 29 mmol/L (21-32) Anion Gap 6 (6-14) 5 (6-14) Blood Urea Nitrogen 13 mg/dL (8-26) 15 mg/dL (8-26) Creatinine 0.6 mg/dL (0.7-1.3) 0.7 mg/dL (0.7-1.3) Estimated GFR (Cockcroft-Gault) 132.8 111.2 Glucose Level 110 mg/dL (70-99) 105 mg/dL (70-99) Calcium Level 8.1 mg/dL (8.5-10.1) 7.9 mg/dL (8.5-10.1) O2 Saturation 97 % (92-99) Arterial Blood pH 7.45 (7.35-7.45) Arterial Blood pCO2 at Patient Temp 37 mmHg (35-46) Arterial Blood pO2 at Patient Temp 96 mmHg (65-108) Arterial Blood HCO3 26 mmol/L (21-28) Arterial Blood Base Excess 2 mmol/L (-3-3) FiO2 30 Phosphorus Level 4.2 mg/dL (2.6-4.7) Magnesium Level 1.9 mg/dL (1.8-2.4) Laboratory Tests Test 05/17/17 06:00 White Blood Count 11.8 x10^3/uL (4.0-11.0) Red Blood Count 3.04 x10^6/uL (4.30-5.70) Hemoglobin 9.8 g/dL (13.0-17.5) Hematocrit 28.8 % (39.0-53.0) Mean Corpuscular Volume 95 fL (79-100) Mean Corpuscular Hemoglobin 32 pg (25-35) Mean Corpuscular Hemoglobin Concent 34 g/dL (31-37) Red Cell Distribution Width 16.0 % (11.5-14.5) Platelet Count 455 x10^3/uL (140-400) Neutrophils (%) (Auto) 72 % (31-73) Lymphocytes (%) (Auto) 14 % (24-48) Monocytes (%) (Auto) 12 % (0-9) Eosinophils (%) (Auto) 1 % (0-3) Basophils (%) (Auto) 1 % (0-3) Neutrophils # (Auto) 8.4 x10^3uL (1.8-7.7) Lymphocytes # (Auto) 1.7 x10^3/uL (1.0-4.8) Monocytes # (Auto) 1.4 x10^3/uL (0.0-1.1) Eosinophils # (Auto) 0.1 x10^3/uL (0.0-0.7) Basophils # (Auto) 0.1 x10^3/uL (0.0-0.2) Sodium Level 135 mmol/L (136-145) Potassium Level 4.4 mmol/L (3.5-5.1) Chloride Level 101 mmol/L (98-107) Carbon Dioxide Level 29 mmol/L (21-32) Anion Gap 5 (6-14) Blood Urea Nitrogen 15 mg/dL (8-26) Creatinine 0.7 mg/dL (0.7-1.3) Estimated GFR (Cockcroft-Gault) 111.2 Glucose Level 105 mg/dL (70-99) Calcium Level 7.9 mg/dL (8.5-10.1) Phosphorus Level 4.2 mg/dL (2.6-4.7) Magnesium Level 1.9 mg/dL (1.8-2.4) Problem List s/p xlap Assessment/Plan cont wound care will start tube feeds via NGT pain control Problems: REYNA NICHOLS MD May 17, 2017 10:56
[2017-05-17] MEDS: HYDROmorphone 2 MG/ML VIAL IVP PRN ×4 (11:01→19:44)
[2017-05-17] MEDS: MICAFUNGIN 100 MG in IV DEXTROSE 5% 100 ML IV SCH (12:37)
--- NOTE | 2017-05-17 13:17 | PDOC ---
PROGRESS NOTES Chief Complaint Chief Complaint Perf viscous s/p R part colectomy Abd pain Pelvic abscess Respir failure on vent now with trach Hypotension Leukocytosis Thrombocytopenia Afib with RVR CHF Hypokalemia Coagulopathy Crohns History of Present Illness History of Present Illness Patient was seen in the ICU and remains vented s/p trach. Vent settings per pulm are AC/16/500/30%. showed increased level of alertness today - improved since yesterday once again but still quite ill Has NG tube to suction DW RN and Vitals Vitals Vital Signs Date Time Temp Pulse Resp B/P (MAP) Pulse Ox O2 Delivery O2 Flow Rate FiO2 05/17/17 12:25 24 100 Ventilator 05/17/17 10:00 82 105/74 (84) 05/17/17 08:00 96.9 96.9 05/17/17 03:39 3.0 Physical Exam General: Alert Heart: Regular rate, Other Lungs: Other (Decreased breath sounds - Right lower lung) Abdomen: Soft, No tenderness, Other (ostomy fxn, abd wall drainage inferior to ostomy with cellulitis) Extremities: No clubbing, Other (2-3+ edema) Skin: No rashes, Other (dark fluid drainage from abdomen) Labs LABS Laboratory Tests Test 05/17/17 06:00 White Blood Count 11.8 x10^3/uL (4.0-11.0) Red Blood Count 3.04 x10^6/uL (4.30-5.70) Hemoglobin 9.8 g/dL (13.0-17.5) Hematocrit 28.8 % (39.0-53.0) Mean Corpuscular Volume 95 fL (79-100) Mean Corpuscular Hemoglobin 32 pg (25-35) Mean Corpuscular Hemoglobin Concent 34 g/dL (31-37) Red Cell Distribution Width 16.0 % (11.5-14.5) Platelet Count 455 x10^3/uL (140-400) Neutrophils (%) (Auto) 72 % (31-73) Lymphocytes (%) (Auto) 14 % (24-48) Monocytes (%) (Auto) 12 % (0-9) Eosinophils (%) (Auto) 1 % (0-3) Basophils (%) (Auto) 1 % (0-3) Neutrophils # (Auto) 8.4 x10^3uL (1.8-7.7) Lymphocytes # (Auto) 1.7 x10^3/uL (1.0-4.8) Monocytes # (Auto) 1.4 x10^3/uL (0.0-1.1) Eosinophils # (Auto) 0.1 x10^3/uL (0.0-0.7) Basophils # (Auto) 0.1 x10^3/uL (0.0-0.2) Sodium Level 135 mmol/L (136-145) Potassium Level 4.4 mmol/L (3.5-5.1) Chloride Level 101 mmol/L (98-107) Carbon Dioxide Level 29 mmol/L (21-32) Anion Gap 5 (6-14) Blood Urea Nitrogen 15 mg/dL (8-26) Creatinine 0.7 mg/dL (0.7-1.3) Estimated GFR (Cockcroft-Gault) 111.2 Glucose Level 105 mg/dL (70-99) Calcium Level 7.9 mg/dL (8.5-10.1) Phosphorus Level 4.2 mg/dL (2.6-4.7) Magnesium Level 1.9 mg/dL (1.8-2.4) Review of Systems Review of Systems unreliable Assessment and Plan Assessmemt and Plan Perf viscous s/p R part colectomy Abd pain Pelvic abscess Respir failure on vent now with trach Hypotension Leukocytosis Thrombocytopenia Afib with RVR CHF Hypokalemia Coagulopathy Crohns Paln Hope to reverse the NG status from suction to pumping feedings tomorrow? Cont ICU Cont [facility] vent Recheck labs PTOTST LTAC eval Reckeck labs Prog guarded Problems: Comment Review of Relevant I have reviewed the following items manuel (where applicable) has been applied. Labs Laboratory Tests Test 05/16/17 06:00 05/16/17 07:33 05/17/17 06:00 White Blood Count 11.3 x10^3/uL (4.0-11.0) 11.8 x10^3/uL (4.0-11.0) Red Blood Count 2.87 x10^6/uL (4.30-5.70) 3.04 x10^6/uL (4.30-5.70) Hemoglobin 9.4 g/dL (13.0-17.5) 9.8 g/dL (13.0-17.5) Hematocrit 27.6 % (39.0-53.0) 28.8 % (39.0-53.0) Mean Corpuscular Volume 96 fL (79-100) 95 fL (79-100) Mean Corpuscular Hemoglobin 33 pg (25-35) 32 pg (25-35) Mean Corpuscular Hemoglobin Concent 34 g/dL (31-37) 34 g/dL (31-37) Red Cell Distribution Width 16.9 % (11.5-14.5) 16.0 % (11.5-14.5) Platelet Count 375 x10^3/uL (140-400) 455 x10^3/uL (140-400) Neutrophils (%) (Auto) 74 % (31-73) 72 % (31-73) Lymphocytes (%) (Auto) 14 % (24-48) 14 % (24-48) Monocytes (%) (Auto) 10 % (0-9) 12 % (0-9) Eosinophils (%) (Auto) 1 % (0-3) 1 % (0-3) Basophils (%) (Auto) 0 % (0-3) 1 % (0-3) Neutrophils # (Auto) 8.4 x10^3uL (1.8-7.7) 8.4 x10^3uL (1.8-7.7) Lymphocytes # (Auto) 1.5 x10^3/uL (1.0-4.8) 1.7 x10^3/uL (1.0-4.8) Monocytes # (Auto) 1.2 x10^3/uL (0.0-1.1) 1.4 x10^3/uL (0.0-1.1) Eosinophils # (Auto) 0.1 x10^3/uL (0.0-0.7) 0.1 x10^3/uL (0.0-0.7) Basophils # (Auto) 0.0 x10^3/uL (0.0-0.2) 0.1 x10^3/uL (0.0-0.2) Sodium Level 135 mmol/L (136-145) 135 mmol/L (136-145) Potassium Level 4.2 mmol/L (3.5-5.1) 4.4 mmol/L (3.5-5.1) Chloride Level 102 mmol/L (98-107) 101 mmol/L (98-107) Carbon Dioxide Level 27 mmol/L (21-32) 29 mmol/L (21-32) Anion Gap 6 (6-14) 5 (6-14) Blood Urea Nitrogen 13 mg/dL (8-26) 15 mg/dL (8-26) Creatinine 0.6 mg/dL (0.7-1.3) 0.7 mg/dL (0.7-1.3) Estimated GFR (Cockcroft-Gault) 132.8 111.2 Glucose Level 110 mg/dL (70-99) 105 mg/dL (70-99) Calcium Level 8.1 mg/dL (8.5-10.1) 7.9 mg/dL (8.5-10.1) O2 Saturation 97 % (92-99) Arterial Blood pH 7.45 (7.35-7.45) Arterial Blood pCO2 at Patient Temp 37 mmHg (35-46) Arterial Blood pO2 at Patient Temp 96 mmHg (65-108) Arterial Blood HCO3 26 mmol/L (21-28) Arterial Blood Base Excess 2 mmol/L (-3-3) FiO2 30 Phosphorus Level 4.2 mg/dL (2.6-4.7) Magnesium Level 1.9 mg/dL (1.8-2.4) Laboratory Tests Test 05/17/17 06:00 White Blood Count 11.8 x10^3/uL (4.0-11.0) Red Blood Count 3.04 x10^6/uL (4.30-5.70) Hemoglobin 9.8 g/dL (13.0-17.5) Hematocrit 28.8 % (39.0-53.0) Mean Corpuscular Volume 95 fL (79-100) Mean Corpuscular Hemoglobin 32 pg (25-35) Mean Corpuscular Hemoglobin Concent 34 g/dL (31-37) Red Cell Distribution Width 16.0 % (11.5-14.5) Platelet Count 455 x10^3/uL (140-400) Neutrophils (%) (Auto) 72 % (31-73) Lymphocytes (%) (Auto) 14 % (24-48) Monocytes (%) (Auto) 12 % (0-9) Eosinophils (%) (Auto) 1 % (0-3) Basophils (%) (Auto) 1 % (0-3) Neutrophils # (Auto) 8.4 x10^3uL (1.8-7.7) Lymphocytes # (Auto) 1.7 x10^3/uL (1.0-4.8) Monocytes # (Auto) 1.4 x10^3/uL (0.0-1.1) Eosinophils # (Auto) 0.1 x10^3/uL (0.0-0.7) Basophils # (Auto) 0.1 x10^3/uL (0.0-0.2) Sodium Level 135 mmol/L (136-145) Potassium Level 4.4 mmol/L (3.5-5.1) Chloride Level 101 mmol/L (98-107) Carbon Dioxide Level 29 mmol/L (21-32) Anion Gap 5 (6-14) Blood Urea Nitrogen 15 mg/dL (8-26) Creatinine 0.7 mg/dL (0.7-1.3) Estimated GFR (Cockcroft-Gault) 111.2 Glucose Level 105 mg/dL (70-99) Calcium Level 7.9 mg/dL (8.5-10.1) Phosphorus Level 4.2 mg/dL (2.6-4.7) Magnesium Level 1.9 mg/dL (1.8-2.4) Microbiology 05/06/17 Blood Culture - Final, Complete NO GROWTH AFTER 5 DAYS 05/15/17 Gram Stain - Final, Complete Medications Current Medications Ondansetron HCl (Zofran) 4 mg PRN Q6HRS PRN IV NAUSEA/VOMITING; Start 04/29/17 at 07:00; Stop 04/29/17 at 17:32; Status DC Fentanyl Citrate (Fentanyl 2ml Vial) 25 mcg PRN Q5MIN PRN IV MILD PAIN; Start 04/29/17 at 07:00; Stop 04/30/17 at 06:59; Status DC Fentanyl Citrate (Fentanyl 2ml Vial) 50 mcg PRN Q5MIN PRN IV MODERATE PAIN Last administered on 04/29/17t 16:59; Start 04/29/17 at 07:00; Stop 04/30/17 at 06:59; Status DC Morphine Sulfate 1 mg PRN Q10MIN PRN IV SEVERE PAIN Last administered on 16:41; Start 04/29/17 at 07:00; Stop 04/30/17 at 06:59; Status DC Ringer's Solution 1,000 ml @ 30 mls/hr Q24H IV Last administered on 04/29/17 10:42; Start 04/29/17 at 07:00; Stop 04/29/17 at 18:59; Status DC Lidocaine HCl 2 ml PRN 1X PRN ID PRIOR TO IV START; Start 04/29/17 at 07:00; Stop 04/30/17 at 06:59; Status DC Hydromorphone HCl (Dilaudid) 0.5 mg PRN Q10MIN PRN IV SEV PAIN, Second choice; Start 04/29/17 at 07:00; Stop 04/30/17 at 06:59; Status DC Prochlorperazine Edisylate (Compazine) 5 mg PACU PRN PRN IV NAUSEA, MRX1; Start 04/29/17 at 07:00; Stop 04/30/17 at 06:59; Status DC Cefoxitin Sodium 1 gm/Sodium Chloride 50 ml @ 100 mls/hr 1X ONCE IV Last administered on 04/29/17 12:00; Start 04/29/17 at 06:00; Stop 04/29/17 at 06:29 ; Status DC Dexamethasone Sodium Phosphate (Decadron) 20 mg STK-MED ONCE .ROUTE ; Start at 10:47; Stop 04/29/17 at 10:48; Status DC Ondansetron HCl (Zofran) 4 mg STK-MED ONCE .ROUTE ; Start 04/29/17 at 10:47; Stop 04/29/17 at 10:48; Status DC Propofol 20 ml @ As Directed STK-MED ONCE IV ; Start 04/29/17 at 10:47; Stop at 10:48; Status DC Lidocaine HCl (Lidocaine Pf 2% Vial) 5 ml STK-MED ONCE .ROUTE ; Start 04/29/17 at 10:47; Stop 04/29/17 at 10:48; Status DC Desflurane (Suprane) 60 ml STK-MED ONCE IH ; Start 04/29/17 at 10:47; Stop 04/29 at 10:48; Status DC Fentanyl Citrate (Fentanyl 2ml Vial) 100 mcg STK-MED ONCE .ROUTE ; Start at 10:47; Stop 04/29/17 at 10:48; Status DC Rocuronium [place] (Zemuron) 50 mg STK-MED ONCE .ROUTE ; Start 04/29/17 at 10:47 ; Stop 04/29/17 at 10:48; Status DC Phenylephrine HCl 1 mg STK-MED ONCE IV ; Start 04/29/17 at 11:52; Stop 04/29/17 at 11:53; Status DC Hydrocortisone Sodium Succinate (Solu-CORTEF) 100 mg STK-MED ONCE .ROUTE ; Start 04/29/17 at 12:04; Stop 04/29/17 at 12:05; Status DC Fentanyl Citrate (Fentanyl 2ml Vial) 100 mcg STK-MED ONCE .ROUTE ; Start at 12:21; Stop 04/29/17 at 12:22; Status DC Rocuronium [place] (Zemuron) 50 mg STK-MED ONCE .ROUTE ; Start 04/29/17 at 12:53 ; Stop 04/29/17 at 12:54; Status DC Labetalol HCl (Normodyne) 20 mg STK-MED ONCE .ROUTE ; Start 04/29/17 at 12:53; Stop 04/29/17 at 12:54; Status DC Fentanyl Citrate (Fentanyl 2ml Vial) 100 mcg STK-MED ONCE .ROUTE ; Start at 12:55; Stop 04/29/17 at 12:56; Status DC Esmolol HCl (Brevibloc) 100 mg STK-MED ONCE IV ; Start 04/29/17 at 12:59; Stop 04/29/17 at 13:00; Status DC Morphine Sulfate 10 mg STK-MED ONCE .ROUTE ; Start 04/29/17 at 13:03; Stop 04/29 at 13:04; Status DC Rocuronium [place] (Zemuron) 100 mg STK-MED ONCE .ROUTE ; Start 04/29/17 at 14: 10; Stop 04/29/17 at 14:11; Status DC Fentanyl Citrate (Fentanyl 2ml Vial) 100 mcg STK-MED ONCE .ROUTE ; Start at 15:08; Stop 04/29/17 at 15:09; Status DC Glycopyrrolate (Robinul) 1 mg STK-MED ONCE .ROUTE ; Start 04/29/17 at 15:29; Stop 04/29/17 at 15:30; Status DC Neostigmine Methylsulfate 5 mg STK-MED ONCE .ROUTE ; Start 04/29/17 at 15:29; Stop 04/29/17 at 15:30; Status DC Esmolol HCl (Brevibloc) 100 mg STK-MED ONCE IV ; Start 04/29/17 at 16:05; Stop 04/29/17 at 16:06; Status DC Diphenhydramine HCl (Benadryl) 25 mg PRN Q6HRS PRN IV ITCHING Last administered on 05/04/17 20:36; Start 04/29/17 at 16:30 Enoxaparin Sodium (Lovenox 40mg Syringe) 40 mg Q24H SQ Last administered on 05/10 06:27; Start 04/30/17 at 06:00; Stop 05/10/17 at 20:48; Status DC Sodium Chloride (Normal Saline Flush) 3 ml QSHIFT PRN IV AFTER MEDS AND BLOOD DRAWS; Start 04/29/17 at 16:30 Potassium Chloride/Sodium Chloride 1,000 ml @ 100 mls/hr Q10H IV Last administered on 05/01/17 00:17; Start 04/29/17 at 16:26; Stop 05/01/17 at 18:31 ; Status DC Hydromorphone HCl 30 ml @ 0 mls/hr CONT PRN PRN IV PROTOCOL Last administered on 04/30/17 18:01; Start 04/29/17 at 16:30; Stop 05/03/17 at 09:45; Status DC Ondansetron HCl (Zofran) 4 mg PRN Q6HRS PRN IV NAUESA, 1ST CHOICE; Start at 16:30; Stop 05/02/17 at 12:27; Status DC Throat Lozenges (Chloraseptic) 1 spray PRN Q2HR PRN PO SORE THROAT; Start 04/29 at 16:45; Stop 05/05/17 at 11:28; Status DC Throat Lozenges (Chloraseptic) 1 spray PRN Q2HR PRN PO SORE THROAT; Start 04/29 at 16:45; Stop 04/29/17 at 17:32; Status DC Digoxin (Lanoxin) 125 mcg DAILY PO Last administered on 05/01/17 09:32; Start 04/30/17 at 09:00; Stop 05/01/17 at 14:05; Status DC Prednisone (Prednisone) 10 mg DAILY PO ; Start 04/30/17 at 09:00; Stop 04/30/17 at 16:33; Status DC Methylprednisolone Sodium Succinate (SOLU-Medrol 40MG VIAL) 15 mg DAILY IV Last administered on 05/02/17 07:59; Start 04/30/17 at 11:00; Stop 05/02/17 at 14:00; Status DC Pantoprazole Sodium (Protonix Vial) 40 mg DAILYAC IVP Last administered on 05/02 07:57; Start 04/30/17 at 17:00; Stop 05/02/17 at 13:45; Status DC Digoxin (Lanoxin) 250 mcg DAILY PO Last administered on 05/05/17 09:29; Start 05/02/17 at 09:00; Stop 05/06/17 at 14:54; Status DC Sodium Chloride 1,000 ml @ 100 mls/hr Q10H IV Last administered on 05/04/17 03:25; Start 05/01/17 at 18:30; Stop 05/04/17 at 15:20; Status DC Nicotine (Nicoderm Cq 14mg) 1 patch PRN DAILY PRN TD SMOKING CESSATION Last administered on 05/04/17 11:15; Start 05/02/17 at 06:45 Ondansetron HCl (Zofran) 4 mg PRN Q6HRS PRN IV NAUSEA/VOMITING Last administered on 05/05/17 09:36; Start 05/02/17 at 12:30 Acetaminophen/ Hydrocodone Bitart (Lortab 5/325) 1 tab PRN Q4HRS PRN PO MILD PAIN Last administered on 05/04/17 17:13; Start 05/02/17 at 12:30 Fentanyl Citrate (Fentanyl 2ml Vial) 50 mcg PRN Q2HR PRN IV MODERATE PAIN Last administered on 05/06/17 08:14; Start 05/02/17 at 12:30; Stop 05/06/17 at 10:55 ; Status DC Famotidine (Pepcid) 20 mg DAILY IVP Last administered on 05/03/17 09:01; Start 05/03/17 at 09:00; Stop 05/03/17 at 09:45; Status DC Hydromorphone HCl (Dilaudid) 1 mg PRN Q4HRS PRN IV SEVERE PAIN Last administered on 05/04/17 11:13; Start 05/03/17 at 09:45; Stop 05/06/17 at 10:55 ; Status DC Morphine Sulfate (Ms Contin) 15 mg BID PO Last administered on 05/04/17 21:35 ; Start 05/03/17 at 09:45; Stop 05/08/17 at 09:52; Status DC Metoprolol Tartrate (Lopressor) 12.5 mg Q6HRS PO Last administered on 11:14; Start 05/03/17 at 19:00; Stop 05/04/17 at 12:51; Status DC Info 1 each PRN DAILY PRN MC SEE COMMENTS Last administered on 05/17/17 09:05; Start 05/04/17 at 11:15 Metoprolol Tartrate (Lopressor) 25 mg BID PO ; Start 05/04/17 at 21:00; Stop at 14:54; Status DC Magnesium Sulfate/ Dextrose 50 ml @ 25 mls/hr 1X ONCE IV Last administered on 05/04/17 15:46; Start 05/04/17 at 16:00; Stop 05/04/17 at 17:59; Status DC Amino Acids/ Glycerin/ Electrolytes 1,000 ml @ 80 mls/hr [id number] IV Last administered on 05/05/17 05:32; Start 05/04/17 at 16:00; Stop 05/05/17 at 21:59 ; Status DC Amino Acids/ Glycerin/ Electrolytes 1,000 ml @ 80 mls/hr [id number] IV ; Start at 15:30; Status UNV Sodium Chloride 1,000 ml @ 100 mls/hr Q10H IV Last administered on 05/05/17 16:32; Start 05/04/17 at 16:00; Stop 05/06/17 at 01:03; Status DC Albumin Human 500 ml @ 100 mls/hr 1X ONCE IV Last administered on 05/05/17 00:05; Start 05/04/17 at 22:00; Stop 05/05/17 at 02:59; Status DC Lidocaine HCl (Glydo (Lidocaine) Jelly) 1 emelia 1X ONCE MM Last administered on 05/05/17 08:30; Start 05/05/17 at 08:30; Stop 05/05/17 at 08:35; Status DC Throat Lozenges (Chloraseptic) 1 spray PRN Q2HR PRN PO SORE THROAT; Start 05/05 at 08:30 Non-Formulary Medication 1 each DAILY PO ; Start 05/06/17 at 09:00; Stop at 09:00; Status DC Non-Formulary Medication 1 tab QHS PO ; Start 05/05/17 at 21:00; Stop 05/05/17 at 21:00; Status DC Benzocaine (Hurricaine One) 1 spray 1X ONCE MM Last administered on 05/05/17 10:30; Start 05/05/17 at 10:30; Stop 05/05/17 at 10:31; Status DC Throat Lozenges (Cepacol Sore Throat Lozenge) 1 west PRN Q2HRS PRN PO SORE THROAT; Start 05/05/17 at 11:00 Albumin Human 500 ml @ 100 mls/hr 1X ONCE IV Last administered on 05/05/17 13:24; Start 05/05/17 at 11:15; Stop 05/05/17 at 16:14; Status DC Sodium Chloride 1,000 ml @ 1,000 mls/hr 1X ONCE IV ; Start 05/05/17 at 11:30; Stop 05/05/17 at 12:29; Status DC Famotidine (Pepcid) 20 mg BID IVP Last administered on 05/17/17 08:54; Start at 12:00 Amiodarone HCl 900 mg/Dextrose 518 ml @ 0 mls/hr CONT PRN IV SEE I/O RECORD Last administered on 05/05/17 13:17; Start 05/05/17 at 12:15; Stop 05/05/17 at 13:17; Status DC Amiodarone HCl 150 mg/Dextrose 103 ml @ 618 mls/hr 1X ONCE IV Last administered on 05/05/17 12:30; Start 05/05/17 at 12:30; Stop 05/05/17 at 12:39 ; Status DC Potassium Phosphate 13.6 mmol/Sodium Chloride 104.5333 ml @ 52.267 m... Q2H IV ; Start 05/05/17 at 14:30; Stop 05/05/17 at 16:29; Status DC Sodium Chloride 90 meq/Potassium Chloride 50 meq/ Potassium Phosphate 17 mmol/ Magnesium Sulfate 10 meq/Calcium Gluconate 5 meq/ Multivitamins 10 ml/Chromium/ Copper/Manganese/ Seleni/Zn 1 ml/ Total Parenteral Nutrition/Amino Acids/ Dextrose/ Fat Emulsion Intravenous 1,512 ml @ 63 mls/hr TPN CONT IV Last administered on 05/05/17 21:46; Start 05/05/17 at 22:00; Stop 05/06/17 at 21:59 ; Status DC Iohexol (Omnipaque 300 Mg/ml) 60 ml 1X ONCE IV Last administered on 05/05/17 14:50; Start 05/05/17 at 14:45; Stop 05/05/17 at 14:46; Status DC Info (Do NOT chart on this entry -- for MONITORING) 1 each PRN DAILY PRN MC SEE COMMENTS; Start 05/05/17 at 14:45; Stop 05/07/17 at 14:45; Status DC Sodium Chloride 1,000 ml @ 2,000 mls/hr 1X ONCE IV Last administered on 16:33; Start 05/05/17 at 16:00; Stop 05/05/17 at 16:29; Status DC Vancomycin HCl (Vanco Per Pharmacy) 1 each PRN DAILY PRN MC SEE COMMENTS Last administered on 05/08/17 09:08; Start 05/05/17 at 16:00; Stop 05/09/17 at 14:01 ; Status DC Piperacillin Sod/ Tazobactam Sod (Zosyn Per Pharmacy) 1 each PRN DAILY PRN MC SEE COMMENTS; Start 05/05/17 at 16:00; Stop 05/10/17 at 07:20; Status DC Piperacillin Sod/ Tazobactam Sod 4.5 gm/Sodium Chloride 100 ml @ 200 mls/hr Q6HRS IV Last administered on 05/09/17 13:02; Start 05/05/17 at 17:00; Stop 05/09/17 at 13:58; Status DC Vancomycin HCl 1.75 gm/Sodium Chloride 500 ml @ 250 mls/hr 1X ONCE IV Last administered on 05/05/17 16:30; Start 05/05/17 at 17:00; Stop 05/05/17 at 18:59 ; Status DC Potassium Chloride 50 ml @ 50 mls/hr Q1H IV Last administered on 05/05/17 16: 59; Start 05/05/17 at 16:30; Stop 05/05/17 at 19:29; Status DC Vancomycin HCl 1.25 gm/Sodium Chloride 250 ml @ 167 mls/hr Q12H IV Last administered on 05/06/17 18:57; Start 05/06/17 at 06:00; Stop 05/07/17 at 07:47 ; Status DC Vancomycin HCl 1 each 1X ONCE MC Last administered on 05/07/17 05:30; Start 05/07/17 at 05:30; Stop 05/07/17 at 05:31; Status DC Norepinephrine Bitartrate 250 ml @ As Directed STK-MED ONCE IV ; Start at 16:22; Stop 05/05/17 at 16:23; Status DC Norepinephrine Bitartrate 250 ml @ 0 mls/hr CONT PRN IV SEE I/O RECORD Last administered on 05/10/17 17:53; Start 05/05/17 at 16:45 Vasopressin 40 unit/Dextrose 102 ml @ 6 mls/hr CONT PRN IV SEE I/O RECORD Last administered on 05/09/17 19:25; Start 05/05/17 at 17:00 Phenylephrine HCl 20 mg/Sodium Chloride 252 ml @ 0 mls/hr CONT PRN IV SEE I/O RECORD Last administered on 05/06/17 06:22; Start 05/05/17 at 17:00; Stop 05/06 at 08:00; Status DC Propofol 0 ml @ As Directed STK-MED ONCE IV ; Start 05/05/17 at 17:21; Stop at 17:22; Status DC Lidocaine HCl (Lidocaine Pf 2% Vial) 5 ml STK-MED ONCE .ROUTE ; Start 05/05/17 at 17:21; Stop 05/05/17 at 17:22; Status DC Fentanyl Citrate (Fentanyl 2ml Vial) 100 mcg STK-MED ONCE .ROUTE ; Start at 17:22; Stop 05/05/17 at 17:23; Status DC Succinylcholine Chloride (Anectine) 200 mg STK-MED ONCE .ROUTE ; Start 05/05/17 at 17:22; Stop 05/05/17 at 17:23; Status DC Rocuronium [place] (Zemuron) 50 mg STK-MED ONCE .ROUTE ; Start 05/05/17 at 17:22 ; Stop 05/05/17 at 17:23; Status DC Etomidate (Amidate) 20 mg STK-MED ONCE IV ; Start 05/05/17 at 17:25; Stop at 17:26; Status DC Desflurane (Suprane) 60 ml STK-MED ONCE IH ; Start 05/05/17 at 18:02; Stop 05/05 at 18:03; Status DC Rocuronium [place] (Zemuron) 50 mg STK-MED ONCE .ROUTE ; Start 05/05/17 at 18:52 ; Stop 05/05/17 at 18:53; Status DC Phenylephrine HCl (Bhargav-Synephrine Inj) 10 mg STK-MED ONCE .ROUTE ; Start at 19:53; Stop 05/05/17 at 19:54; Status DC Propofol 100 ml @ 0 mls/hr CONT PRN IV SEE I/O RECORD Last administered on 03:44; Start 05/05/17 at 21:30 Midazolam HCl 100 ml @ 0 mls/hr CONT PRN IV SEE I/O RECORD Last administered on 05/08/17 00:43; Start 05/05/17 at 22:00; Stop 05/13/17 at 09:33; Status DC Sodium Bicarbonate 150 meq/Dextrose 1,150 ml @ 100 mls/hr [id number] IV Last administered on 05/07/17 03:44; Start 05/06/17 at 02:00; Stop 05/07/17 at 10:32 ; Status DC Micafungin Sodium 100 mg/Dextrose 100 ml @ 100 mls/hr Q24H IV Last administered on 05/09/17 08:00; Start 05/06/17 at 08:00; Stop 05/09/17 at 13:58; Status DC Phenylephrine HCl 80 mg/Sodium Chloride 258 ml @ 0 mls/hr CONT PRN IV SEE I/O RECORD Last administered on 05/06/17 08:16; Start 05/06/17 at 08:00 Potassium Phosphate 10 mmol/ Sodium Chloride 103.3333 ml @ 51.667 m... Q2H IV Last administered on 05/06/17 16:11; Start 05/06/17 at 08:30; Stop 05/06/17 at 12:29; Status DC Fentanyl Citrate 30 ml @ 0 mls/hr CONT PRN PRN IV PROTOCOL Last administered on 05/10/17 10:47; Start 05/06/17 at 10:45; Stop 05/13/17 at 09:33; Status DC Naloxone HCl (Narcan) 0.4 mg PRN Q2MIN PRN IV SEE INSTRUCTIONS; Start 05/06/17 at 10:45 Sodium Chloride 1,000 ml @ 25 mls/hr Q24H IV Last administered on 05/10/17 10: 17; Start 05/06/17 at 11:00; Stop 05/13/17 at 17:35; Status DC Norepinephrine Bitartrate 250 ml @ 0 mls/hr CONT PRN IV SEE I/O RECORD; Start 05/06/17 at 10:45; Status Cancel Sodium Chloride 90 meq/Sodium Acetate 40 meq/ Potassium Chloride 50 meq/ Potassium Phosphate 25 mmol/ Magnesium Sulfate 15 meq/Calcium Gluconate 5 meq/ Multivitamins 10 ml/Chromium/ Copper/Manganese/ Seleni/Zn 1 ml/ Total Parenteral Nutrition/Amino Acids/Dextrose/ Fat Emulsion Intravenous 1,512 ml @ 63 mls/hr TPN CONT IV Last administered on 05/06/17 21:38; Start 05/06/17 at 22:00; Stop 05/07/17 at 21:59; Status DC Famotidine (Pepcid) 20 mg BID IVP ; Start 05/06/17 at 21:00; Status UNV Digoxin (Lanoxin) 250 mcg DAILY PO ; Start 05/06/17 at 16:00; Stop 05/08/17 at 10:59; Status DC Vancomycin HCl 1 gm/Sodium Chloride 250 ml @ 250 mls/hr Q8H IV Last administered on 05/09/17 12:59; Start 05/07/17 at 08:00; Stop 05/09/17 at 13:58; Status DC Vancomycin HCl 1 each 1X ONCE MC ; Start 05/08/17 at 07:30; Stop 05/08/17 at 07 :31; Status DC Potassium Phosphate 15 mmol/ Sodium Chloride 255 ml @ 127.5 mls/ hr 1X ONCE IV Last administered on 05/07/17 10:46; Start 05/07/17 at 10:30; Stop at 12:29; Status DC Sodium Chloride 1,000 ml @ 75 mls/hr [id number] IV Last administered on 05/15/17 20:26; Start 05/07/17 at 12:00; Stop 05/16/17 at 13:07; Status DC Sodium Chloride 90 meq/Sodium Acetate 40 meq/ Potassium Chloride 50 meq/ Potassium Phosphate 25 mmol/ Magnesium Sulfate 15 meq/Calcium Gluconate 5 meq/ Multivitamins 10 ml/Chromium/ Copper/Manganese/ Seleni/Zn 1 ml/ Total Parenteral Nutrition/Amino Acids/Dextrose/ Fat Emulsion Intravenous 1,512 ml @ 63 mls/hr TPN CONT IV Last administered on 05/07/17 21:06; Start 05/07/17 at 22:00; Stop 05/08/17 at 21:59; Status DC Albumin Human 100 ml @ 100 mls/hr 1X ONCE IV Last administered on 05/07/17 21:06; Start 05/07/17 at 20:45; Stop 05/07/17 at 21:44; Status DC Potassium Phosphate 15 mmol/ Sodium Chloride 255 ml @ 85 mls/hr Q2H IV Last administered on 05/07/17 21:55; Start 05/07/17 at 22:00; Stop 05/07/17 at 23:59 ; Status DC Digoxin (Lanoxin) 250 mcg DAILY IV Last administered on 05/17/17 08:56; Start 05/08/17 at 11:15 Sodium Chloride 90 meq/Sodium Acetate 40 meq/ Potassium Chloride 50 meq/ Potassium Phosphate 20 mmol/ Magnesium Sulfate 15 meq/Calcium Gluconate 5 meq/ Multivitamins 10 ml/Chromium/ Copper/Manganese/ Seleni/Zn 1 ml/ Total Parenteral Nutrition/Amino Acids/Dextrose/ Fat Emulsion Intravenous 1,512 ml @ 63 mls/hr TPN CONT IV Last administered on 05/08/17 21:39; Start 05/08/17 at 22:00; Stop 05/09/17 at 21:59; Status DC Chlorhexidine Gluconate (Peridex) 15 ml BID SWSP Last administered on 05/17/17 08:54; Start 05/08/17 at 21:00 Multi-Ingred Cream/Lotion/Oil/ Oint (Artificial Tears Eye Oint) 1 emelia PRN Q12HR PRN OU DRY EYE Last administered on 05/08/17 16:31; Start 05/08/17 at 14:45 Sodium Chloride 90 meq/Sodium Acetate 40 meq/ Potassium Acetate 70 meq/ Potassium Phosphate 20 mmol/ Magnesium Sulfate 15 meq/Calcium Gluconate 5 meq/ Multivitamins 10 ml/Chromium/ Copper/Manganese/ Seleni/Zn 1 ml/ Total Parenteral Nutrition/Amino Acids/Dextrose/ Fat Emulsion Intravenous 1,512 ml @ 63 mls/hr TPN CONT IV Last administered on 05/09/17 22:13; Start 05/09/17 at 22 :00; Stop 05/10/17 at 21:59; Status DC Ceftriaxone Sodium 1 gm/ Sodium Chloride 50 ml @ 100 mls/hr Q24H IV Last administered on 05/11/17 15:11; Start 05/09/17 at 14:00; Stop 05/12/17 at 08:25; Status DC Sodium Chloride 60 meq/Sodium Acetate 50 meq/ Potassium Acetate 90 meq/ Potassium Phosphate 20 mmol/ Magnesium Sulfate 15 meq/Calcium Gluconate 5 meq/ Multivitamins 10 ml/Chromium/ Copper/Manganese/ Seleni/Zn 1 ml/ Total Parenteral Nutrition/Amino Acids/Dextrose/ Fat Emulsion Intravenous 1,512 ml @ 63 mls/hr TPN CONT IV Last administered on 05/10/17 21:24; Start 05/10/17 at 22 :00; Stop 05/11/17 at 21:59; Status DC Enoxaparin Sodium (Lovenox 40mg Syringe) 40 mg Q24H SQ Last administered on 05/16 21:38; Start 05/10/17 at 21:00 Sodium Chloride 40 meq/Sodium Acetate 50 meq/ Potassium Acetate 90 meq/ Potassium Phosphate 20 mmol/ Magnesium Sulfate 15 meq/Calcium Gluconate 5 meq/ Multivitamins 10 ml/Chromium/ Copper/Manganese/ Seleni/Zn 1 ml/ Total Parenteral Nutrition/Amino Acids/Dextrose/ Fat Emulsion Intravenous 1,512 ml @ 63 mls/hr TPN CONT IV Last administered on 05/11/17 20:42; Start 05/11/17 at 22 :00; Stop 05/12/17 at 21:59; Status DC Micafungin Sodium 100 mg/Dextrose 100 ml @ 100 mls/hr Q24H IV Last administered on 05/17/17 12:37; Start 05/11/17 at 12:00 Piperacillin Sod/ Tazobactam Sod 3.375 gm/Sodium Chloride 50 ml @ 100 mls/hr Q6HRS IV Last administered on 05/17/17 12:37; Start 05/12/17 at 09:00 Sodium Chloride 40 meq/Sodium Acetate 50 meq/ Potassium Acetate 90 meq/ Potassium Phosphate 20 mmol/ Magnesium Sulfate 15 meq/Calcium Gluconate 5 meq/ Multivitamins 10 ml/Chromium/ Copper/Manganese/ Seleni/Zn 1 ml/ Total Parenteral Nutrition/Amino Acids/Dextrose/ Fat Emulsion Intravenous 1,512 ml @ 63 mls/hr TPN CONT IV Last administered on 05/12/17 21:57; Start 05/12/17 at 22 :00; Stop 05/13/17 at 21:59; Status DC Albumin Human 100 ml @ 100 mls/hr 1X ONCE IV Last administered on 05/12/17 21 :05; Start 05/12/17 at 21:00; Stop 05/12/17 at 21:59; Status DC Alteplase, Recombinant (Cathflo) 2 mg 1X ONCE INT CAT Last administered on 05/12 21:04; Start 05/12/17 at 21:00; Stop 05/12/17 at 21:01; Status DC Iohexol (Omnipaque 300 Mg/ml) 75 ml 1X ONCE IV Last administered on 05/13/17 09:16; Start 05/13/17 at 09:30; Stop 05/13/17 at 09:31; Status DC Info (Do NOT chart on this entry -- for MONITORING) 1 each PRN DAILY PRN MC SEE COMMENTS; Start 05/13/17 at 07:45; Stop 05/15/17 at 07:44; Status DC Fentanyl Citrate (Fentanyl 2ml Vial) 100 mcg STK-MED ONCE .ROUTE ; Start at 09:26; Stop 05/13/17 at 09:27; Status DC Fentanyl Citrate (Fentanyl 2ml Vial) 25 mcg PRN Q2HR PRN IV PAIN Last administered on 05/15/17 08:15; Start 05/13/17 at 09:30 Fentanyl Citrate (Fentanyl 2ml Vial) 50 mcg PRN Q2HR PRN IV PAIN Last administered on 05/17/17 12:25; Start 05/13/17 at 09:45 Sodium Chloride 40 meq/Sodium Acetate 50 meq/ Potassium Acetate 90 meq/ Potassium Phosphate 20 mmol/ Magnesium Sulfate 15 meq/Calcium Gluconate 5 meq/ Multivitamins 10 ml/Chromium/ Copper/Manganese/ Seleni/Zn 1 ml/ Total Parenteral Nutrition/Amino Acids/Dextrose/ Fat Emulsion Intravenous 1,512 ml @ 63 mls/hr TPN CONT IV Last administered on 05/13/17 21:05; Start 05/13/17 at 22 :00; Stop 05/14/17 at 21:59; Status DC Linezolid 300 ml @ 300 mls/hr Q12HR IV Last administered on 05/17/17 08:54; Start 05/14/17 at 09:00 Phenylephrine HCl 1 mg STK-MED ONCE IV ; Start 05/14/17 at 10:31; Stop 05/14/17 at 10:32; Status DC Fentanyl Citrate (Fentanyl 2ml Vial) 100 mcg STK-MED ONCE .ROUTE ; Start at 10:31; Stop 05/14/17 at 10:32; Status DC Midazolam HCl (Versed) 2 mg STK-MED ONCE .ROUTE ; Start 05/14/17 at 10:31; Stop 05/14/17 at 10:32; Status DC Ephedrine Sulfate 50 mg STK-MED ONCE IV ; Start 05/14/17 at 10:31; Stop 05/14/17 at 10:32; Status DC Rocuronium [place] (Zemuron) 50 mg STK-MED ONCE .ROUTE ; Start 05/14/17 at 10:31 ; Stop 05/14/17 at 10:32; Status DC Cellulose 1 each STK-MED ONCE .ROUTE ; Start 05/14/17 at 10:43; Stop 05/14/17 at 10:44; Status DC Bupivacaine HCl/ Epinephrine Bitart (Marcaine-Epi 0.5%-[id number]) 50 ml STK-MED ONCE .ROUTE Last administered on 05/14/17 11:30; Start 05/14/17 at 10:43; Stop 05/14/17 at 10:44; Status DC Sodium Chloride 40 meq/Sodium Acetate 50 meq/ Potassium Acetate 90 meq/ Potassium Phosphate 20 mmol/ Magnesium Sulfate 15 meq/Calcium Gluconate 5 meq/ Multivitamins 10 ml/Chromium/ Copper/Manganese/ Seleni/Zn 1 ml/ Total Parenteral Nutrition/Amino Acids/Dextrose/ Fat Emulsion Intravenous 1,512 ml @ 63 mls/hr TPN CONT IV Last administered on 05/14/17 23:09; Start 05/14/17 at 22 :00; Stop 05/15/17 at 21:59; Status DC Sodium Chloride 60 meq/Sodium Acetate 50 meq/ Potassium Acetate 90 meq/ Potassium Phosphate 20 mmol/ Magnesium Sulfate 15 meq/Calcium Gluconate 5 meq/ Multivitamins 10 ml/Chromium/ Copper/Manganese/ Seleni/Zn 1 ml/ Total Parenteral Nutrition/Amino Acids/Dextrose/ Fat Emulsion Intravenous 1,512 ml @ 63 mls/hr TPN CONT IV Last administered on 05/15/17 20:28; Start 05/15/17 at 22 :00; Stop 05/16/17 at 21:59; Status DC Sodium Chloride 60 meq/Sodium Acetate 50 meq/ Potassium Acetate 90 meq/ Potassium Phosphate 20 mmol/ Magnesium Sulfate 15 meq/Calcium Gluconate 5 meq/ Multivitamins 10 ml/Chromium/ Copper/Manganese/ Seleni/Zn 1 ml/ Total Parenteral Nutrition/Amino Acids/Dextrose/ Fat Emulsion Intravenous 1,512 ml @ 63 mls/hr TPN CONT IV Last administered on 05/16/17 21:29; Start 05/16/17 at 22 :00; Stop 05/17/17 at 21:59 Hydromorphone HCl (Dilaudid) 0.2 mg PRN Q1HR PRN IVP PAIN Last administered on 05/17/17 11:01; Start 05/17/17 at 11:00 Active Scripts Active Reported Melatonin 3 Mg Tablet 1 Tab PO QHS Move Free Joint Health Tablet (Glucosam/Chond/Hyalu/Cf Borate) 1 Each Tablet 1 Each PO DAILY Digoxin 125 Mcg Tablet 1 Tab PO DAILY Prednisone 10 Mg Tablet 10 Mg PO DAILY Vitals/I & O Vital Sign - Last 24 Hours 05/16/17 05/16/17 05/16/17 05/16/17 13:37 14:00 14:59 15:00 Pulse 80 88 Resp 28 30 B/P (MAP) 101/61 (74) 115/69 (84) Pulse Ox 100 100 100 100 O2 Delivery Ventilator Ventilator Ventilator Ventilator 05/16/17 05/16/17 05/16/17 05/16/17 16:02 16:04 17:00 17:04 Temp 97.8 97.8 Pulse 96 92 Resp 39 29 B/P (MAP) 118/72 (87) 86/62 (70) Pulse Ox 100 99 99 O2 Delivery Mechanical Ventilator Ventilator Ventilator Ventilator 05/16/17 05/16/17 05/16/17 05/16/17 18:00 19:00 19:34 20:00 Temp 98.4 98.4 Pulse 90 90 Resp 27 26 B/P (MAP) 95/68 (77) 72/60 (64) Pulse Ox 99 99 99 O2 Delivery Ventilator Ventilator Ventilator Mechanical Ventilator 05/16/17 05/16/17 05/16/17 05/16/17 20:00 21:00 22:00 22:04 Pulse 92 86 88 Resp 22 26 21 B/P (MAP) 90/66 (74) 95/65 (75) 102/63 (76) Pulse Ox 99 98 100 99 O2 Delivery Ventilator Ventilator Ventilator Ventilator 05/16/17 05/16/17 05/17/17 05/17/17 23:00 23:49 00:00 00:00 Pulse 92 92 Resp 17 24 B/P (MAP) 105/70 (82) 102/66 (78) Pulse Ox 99 99 100 O2 Delivery Ventilator Ventilator TRACH/VENT Mechanical Ventilator 05/17/17 05/17/17 05/17/17 05/17/17 00:43 01:00 02:00 02:07 Pulse 93 80 Resp 22 20 B/P (MAP) 87/58 (68) 86/62 (70) Pulse Ox 98 100 100 100 O2 Delivery trach/vent Ventilator TRACH/VENT Ventilator 05/17/17 05/17/17 05/17/17 05/17/17 03:39 04:00 04:54 05:00 Pulse 86 79 Resp 28 23 23 B/P (MAP) 89/58 (68) Pulse Ox 100 100 100 100 O2 Delivery Ventilator Ventilator TRACH/VENT O2 Flow Rate 3.0 05/17/17 05/17/17 05/17/17 05/17/17 05:00 06:00 07:00 07:32 Pulse 78 80 Resp 22 26 B/P (MAP) 90/60 (70) 81/56 (64) Pulse Ox 100 100 100 O2 Delivery Mechanical Ventilator TRACH/VENT Ventilator Ventilator 05/17/17 05/17/17 05/17/17 05/17/17 08:00 08:00 08:55 08:56 Temp 96.9 96.9 Pulse 77 76 Resp 22 18 B/P (MAP) 87/63 (71) 87/63 Pulse Ox 100 100 O2 Delivery Ventilator Mechanical Ventilator Ventilator 05/17/17 05/17/17 05/17/17 05/17/17 09:00 09:40 10:00 11:01 Pulse 78 82 Resp 21 26 25 B/P (MAP) 83/57 (66) 105/74 (84) Pulse Ox 100 100 100 99 O2 Delivery Ventilator Ventilator Ventilator Ventilator 05/17/17 05/17/17 11:23 12:25 Resp 24 Pulse Ox 99 100 O2 Delivery Ventilator Ventilator Intake and Output 05/16/17 05/16/17 05/17/17 15:00 23:00 07:00 Intake Total 450 ml 1795.29 ml 1267.95 ml Output Total 650 ml 2295 ml 1295 ml Balance -200 ml -499.71 ml -27.05 ml EVELIO BLANTON III, DO May 17, 2017 13:17
--- NOTE | 2017-05-17 15:31 | PDOC ---
PULMONARY PROGRESS NOTES Subjective ON AC MODE Vitals Vital Signs Date Time Temp Pulse Resp B/P (MAP) Pulse Ox O2 Delivery O2 Flow Rate FiO2 05/17/17 15:27 100 Ventilator 05/17/17 14:38 26 05/17/17 10:00 82 105/74 (84) 05/17/17 08:00 96.9 96.9 05/17/17 03:39 3.0 General: Alert Lungs: Clear Cardiovascular: S1 Abdomen: Other (firm) Extremities: Other (1+edema) Skin: Warm Labs Laboratory Tests Test 05/16/17 06:00 05/16/17 07:33 05/17/17 06:00 White Blood Count 11.3 x10^3/uL (4.0-11.0) 11.8 x10^3/uL (4.0-11.0) Red Blood Count 2.87 x10^6/uL (4.30-5.70) 3.04 x10^6/uL (4.30-5.70) Hemoglobin 9.4 g/dL (13.0-17.5) 9.8 g/dL (13.0-17.5) Hematocrit 27.6 % (39.0-53.0) 28.8 % (39.0-53.0) Mean Corpuscular Volume 96 fL (79-100) 95 fL (79-100) Mean Corpuscular Hemoglobin 33 pg (25-35) 32 pg (25-35) Mean Corpuscular Hemoglobin Concent 34 g/dL (31-37) 34 g/dL (31-37) Red Cell Distribution Width 16.9 % (11.5-14.5) 16.0 % (11.5-14.5) Platelet Count 375 x10^3/uL (140-400) 455 x10^3/uL (140-400) Neutrophils (%) (Auto) 74 % (31-73) 72 % (31-73) Lymphocytes (%) (Auto) 14 % (24-48) 14 % (24-48) Monocytes (%) (Auto) 10 % (0-9) 12 % (0-9) Eosinophils (%) (Auto) 1 % (0-3) 1 % (0-3) Basophils (%) (Auto) 0 % (0-3) 1 % (0-3) Neutrophils # (Auto) 8.4 x10^3uL (1.8-7.7) 8.4 x10^3uL (1.8-7.7) Lymphocytes # (Auto) 1.5 x10^3/uL (1.0-4.8) 1.7 x10^3/uL (1.0-4.8) Monocytes # (Auto) 1.2 x10^3/uL (0.0-1.1) 1.4 x10^3/uL (0.0-1.1) Eosinophils # (Auto) 0.1 x10^3/uL (0.0-0.7) 0.1 x10^3/uL (0.0-0.7) Basophils # (Auto) 0.0 x10^3/uL (0.0-0.2) 0.1 x10^3/uL (0.0-0.2) Sodium Level 135 mmol/L (136-145) 135 mmol/L (136-145) Potassium Level 4.2 mmol/L (3.5-5.1) 4.4 mmol/L (3.5-5.1) Chloride Level 102 mmol/L (98-107) 101 mmol/L (98-107) Carbon Dioxide Level 27 mmol/L (21-32) 29 mmol/L (21-32) Anion Gap 6 (6-14) 5 (6-14) Blood Urea Nitrogen 13 mg/dL (8-26) 15 mg/dL (8-26) Creatinine 0.6 mg/dL (0.7-1.3) 0.7 mg/dL (0.7-1.3) Estimated GFR (Cockcroft-Gault) 132.8 111.2 Glucose Level 110 mg/dL (70-99) 105 mg/dL (70-99) Calcium Level 8.1 mg/dL (8.5-10.1) 7.9 mg/dL (8.5-10.1) O2 Saturation 97 % (92-99) Arterial Blood pH 7.45 (7.35-7.45) Arterial Blood pCO2 at Patient Temp 37 mmHg (35-46) Arterial Blood pO2 at Patient Temp 96 mmHg (65-108) Arterial Blood HCO3 26 mmol/L (21-28) Arterial Blood Base Excess 2 mmol/L (-3-3) FiO2 30 Phosphorus Level 4.2 mg/dL (2.6-4.7) Magnesium Level 1.9 mg/dL (1.8-2.4) Laboratory Tests Test 05/17/17 06:00 White Blood Count 11.8 x10^3/uL (4.0-11.0) Red Blood Count 3.04 x10^6/uL (4.30-5.70) Hemoglobin 9.8 g/dL (13.0-17.5) Hematocrit 28.8 % (39.0-53.0) Mean Corpuscular Volume 95 fL (79-100) Mean Corpuscular Hemoglobin 32 pg (25-35) Mean Corpuscular Hemoglobin Concent 34 g/dL (31-37) Red Cell Distribution Width 16.0 % (11.5-14.5) Platelet Count 455 x10^3/uL (140-400) Neutrophils (%) (Auto) 72 % (31-73) Lymphocytes (%) (Auto) 14 % (24-48) Monocytes (%) (Auto) 12 % (0-9) Eosinophils (%) (Auto) 1 % (0-3) Basophils (%) (Auto) 1 % (0-3) Neutrophils # (Auto) 8.4 x10^3uL (1.8-7.7) Lymphocytes # (Auto) 1.7 x10^3/uL (1.0-4.8) Monocytes # (Auto) 1.4 x10^3/uL (0.0-1.1) Eosinophils # (Auto) 0.1 x10^3/uL (0.0-0.7) Basophils # (Auto) 0.1 x10^3/uL (0.0-0.2) Sodium Level 135 mmol/L (136-145) Potassium Level 4.4 mmol/L (3.5-5.1) Chloride Level 101 mmol/L (98-107) Carbon Dioxide Level 29 mmol/L (21-32) Anion Gap 5 (6-14) Blood Urea Nitrogen 15 mg/dL (8-26) Creatinine 0.7 mg/dL (0.7-1.3) Estimated GFR (Cockcroft-Gault) 111.2 Glucose Level 105 mg/dL (70-99) Calcium Level 7.9 mg/dL (8.5-10.1) Phosphorus Level 4.2 mg/dL (2.6-4.7) Magnesium Level 1.9 mg/dL (1.8-2.4) Medications Active Scripts Medications Dose Route/Sig Max Daily Dose Days Date Category Melatonin 3 Mg Tablet 1 Tab PO QHS 04/22/17 Reported Move Free Joint Health Tablet (Glucosam/Chond/Hyalu/Cf Borate) 1 Each Tablet 1 Each PO DAILY 04/22/17 Reported Digoxin 125 Mcg Tablet 1 Tab PO DAILY 04/22/17 Reported Prednisone 10 Mg Tablet 10 Mg PO DAILY 04/22/17 Reported Comments CXR REVIEWED 1. Interval insertion of a tracheostomy tube in satisfactory position. 2. No other significant interval change since yesterday's study. Impression . 1. Acute respiratory failure, expected post -op s/p trach 2. septic shock IMPROVED 3. Metabolic acidosis/ lactic acidosis, improving 4. chronic A-Fib 5. Crohn's Dx, who has h/o perforated viscous and underwent lap with resection . Cults + for H para/Clostridium Ramsom/Bacteroides/Strep bovis. D/cd home with Augmentin. Presented electively for an extended right colon resection with ileocolotomy 04/29. Taken back to OR ruptured ileo-colic anastomosis, fecal impaction s/p rigid procto, disimpaction, ex lap, resection of ileo-colic anastomosis, end ileostomy, Evans's pouch, 6. Toxic and metabolic encephalopathy 7. Abnormal CXR Plan . NOTHING NEW TODAY AC MODE FOR NOW SPOKE WITH X- WILL START WEAN ON THURSDAY LTAC NEXT WEEK OK BY ME CXR REVIEWED ANTIBX PER NAILA ANGELES MD May 17, 2017 15:31
[2017-05-17] MEDS: ENOXAPARIN 40 MG/0.4 ML SYRINGE. SQ SCH (20:28)
[2017-05-17] MEDS ORDERED: TOTAL PARENTERAL NUTRITION IV SCH ×11 (22:00)
[2017-05-17] MEDS ORDERED: AMINO ACIDS IV SCH ×11 (22:00)
[2017-05-17] MEDS ORDERED: DEXTROSE 70% IV SCH ×11 (22:00)
[2017-05-17] MEDS ORDERED: [UNRECOGNIZED DRUG - OTHER] IV SCH ×11 (22:00)
[2017-05-18] VITALS (18 sets, daily range): BP systolic 85–118; BP diastolic 52–80
[2017-05-18] MEDS: HYDROmorphone 2 MG/ML VIAL IVP PRN ×2 (00:11→04:14)
[2017-05-18] MEDS: PIPERACILLIN/TAZOBACTAM 3.375 GM in IV NORMAL SALINE 50ML 50 ML IV SCH ×2 (05:35→13:22)
[2017-05-18 06:06] LABS: BASO # 0.1 x10^3/uL (0.0-0.2); BASO % 1 % (0-3); EOS % 2 % (0-3); HEMATOCRIT 28.8 % (39.0-53.0); HEMOGLOBIN 9.5 g/dL (13.0-17.5); LYMPH % 16 % (24-48); MEAN CORPUSCULAR HEMOGLOBIN 32 pg (25-35); MEAN CORPUSCULAR HGB CONC 33 g/dL (31-37); MEAN CORPUSCULAR VOLUME 96 fL (79-100); MONO % 13 % (0-9); NEUT % 69 % (31-73); PLATELET COUNT 431 x10^3/uL (140-400); RED BLOOD COUNT 3.01 x10^6/uL (4.30-5.70); RED CELL DISTRIBUTION WIDTH 16.4 % (11.5-14.5); WHITE BLOOD COUNT 12.6 x10^3/uL (4.0-11.0)
[2017-05-18 06:16] LABS: CALCIUM 8.5 mg/dL (8.5-10.1); CREATININE 0.7 mg/dL (0.7-1.3); GFR 111.2; POTASSIUM 4.7 mmol/L (3.5-5.1)
--- NOTE | 2017-05-18 07:19 | PDOC ---
Infectious Disease Note Subjective Subjective On vent but alert ROS ROS Difficult to ascertain but has some pain Vital Sign Vital Signs Vital Signs Date Time Temp Pulse Resp B/P (MAP) Pulse Ox O2 Delivery O2 Flow Rate FiO2 05/18/17 06:00 88 23 92/64 (73) 100 TRACH/VENT 05/18/17 04:44 3.0 05/18/17 03:00 98.7 98.7 Physical Exam PHYSICAL EXAM GENERAL: NAD, Alert HEENT: PERRL, OC/OP- dry NECK: Supple, no JVD, no LN, trach LUNGS: Clear HEART: S1S2, no gallop, no murmur ABD: Soft, ostomy, + drainage from base of ostomy. NGT Wagner EXT: No edema, no cyanosis PAPER STRIPPER: Alert, oriented x 3, no focal neurologic deficit SKIN: No rash IV: PICC - clean. RIJ - clean Labs Lab Laboratory Tests Test 05/18/17 05:55 White Blood Count 12.6 x10^3/uL (4.0-11.0) Red Blood Count 3.01 x10^6/uL (4.30-5.70) Hemoglobin 9.5 g/dL (13.0-17.5) Hematocrit 28.8 % (39.0-53.0) Mean Corpuscular Volume 96 fL (79-100) Mean Corpuscular Hemoglobin 32 pg (25-35) Mean Corpuscular Hemoglobin Concent 33 g/dL (31-37) Red Cell Distribution Width 16.4 % (11.5-14.5) Platelet Count 431 x10^3/uL (140-400) Neutrophils (%) (Auto) 69 % (31-73) Lymphocytes (%) (Auto) 16 % (24-48) Monocytes (%) (Auto) 13 % (0-9) Eosinophils (%) (Auto) 2 % (0-3) Basophils (%) (Auto) 1 % (0-3) Neutrophils # (Auto) 8.7 x10^3uL (1.8-7.7) Lymphocytes # (Auto) 2.0 x10^3/uL (1.0-4.8) Monocytes # (Auto) 1.6 x10^3/uL (0.0-1.1) Eosinophils # (Auto) 0.2 x10^3/uL (0.0-0.7) Basophils # (Auto) 0.1 x10^3/uL (0.0-0.2) Sodium Level 132 mmol/L (136-145) Potassium Level 4.7 mmol/L (3.5-5.1) Chloride Level 97 mmol/L (98-107) Carbon Dioxide Level 29 mmol/L (21-32) Anion Gap 6 (6-14) Blood Urea Nitrogen 15 mg/dL (8-26) Creatinine 0.7 mg/dL (0.7-1.3) Estimated GFR (Cockcroft-Gault) 111.2 Glucose Level 101 mg/dL (70-99) Calcium Level 8.5 mg/dL (8.5-10.1) Triglycerides Level 112 mg/dL (0-150) Objective Assessment Pelvic abscess. Gram stain: GPC, yeast, anaerobes. Culture E. coli (pansensitive ), yeast so far. Ecoli from 05/15 Sepsis with hypotension, off pressors s/p trach 05/14 Leukocytosis, mild trend Ruptured ileo-colic anastomosis, fecal impaction s/p rigid procto, disimpaction , ex lap, resection of ileo-colic anastomosis, end ileostomy, Evans's pouch, [place] 05/05 Right flank - mid quad cellulitis/irritation Immunosuppression Afib Thrombocytopenia, better H/o H para/Clostridium Ramsom/Bacteroides/Strep bovis January 2017 Plan Plan of Care Cont micafungin and zosyn, zyvox F/u labs and cults F/u abd drainage Still critically ill lap checker prognosis poor JYOTI SALES MD May 18, 2017 07:19
[2017-05-18] MEDS: fentaNYL PF VIAL 100 MCG/2 ML VIAL IV PRN (07:45)
--- NOTE | 2017-05-18 08:50 | PDOC ---
SURGICAL PROGRESS NOTE Subjective awake in bed Vital Signs Vital Signs Date Time Temp Pulse Resp B/P (MAP) Pulse Ox O2 Delivery O2 Flow Rate FiO2 05/18/17 08:15 22 100 Ventilator 3.0 05/18/17 06:00 88 92/64 (73) 05/18/17 03:00 98.7 98.7 I&O Intake and Output 05/18/17 07:00 Intake Total 2228.50 ml Output Total 2418 ml Balance -189.50 ml IV Total 2128.50 ml Blood Product IV Normal Saline Flush 100 ml Output Urine Total 2155 ml Gastric Drainage Total 0 ml Drainage Total 263 ml PATIENT HAS A YANCEY: Yes General: Alert, Cooperative, No acute distress HEENT: Other (trach) Abdomen: Soft, Other (ostomy with green liquid stool, wound tannish drainage, drains-dry this AM) Labs Laboratory Tests Test 05/17/17 06:00 05/18/17 05:55 White Blood Count 11.8 x10^3/uL (4.0-11.0) 12.6 x10^3/uL (4.0-11.0) Red Blood Count 3.04 x10^6/uL (4.30-5.70) 3.01 x10^6/uL (4.30-5.70) Hemoglobin 9.8 g/dL (13.0-17.5) 9.5 g/dL (13.0-17.5) Hematocrit 28.8 % (39.0-53.0) 28.8 % (39.0-53.0) Mean Corpuscular Volume 95 fL (79-100) 96 fL (79-100) Mean Corpuscular Hemoglobin 32 pg (25-35) 32 pg (25-35) Mean Corpuscular Hemoglobin Concent 34 g/dL (31-37) 33 g/dL (31-37) Red Cell Distribution Width 16.0 % (11.5-14.5) 16.4 % (11.5-14.5) Platelet Count 455 x10^3/uL (140-400) 431 x10^3/uL (140-400) Neutrophils (%) (Auto) 72 % (31-73) 69 % (31-73) Lymphocytes (%) (Auto) 14 % (24-48) 16 % (24-48) Monocytes (%) (Auto) 12 % (0-9) 13 % (0-9) Eosinophils (%) (Auto) 1 % (0-3) 2 % (0-3) Basophils (%) (Auto) 1 % (0-3) 1 % (0-3) Neutrophils # (Auto) 8.4 x10^3uL (1.8-7.7) 8.7 x10^3uL (1.8-7.7) Lymphocytes # (Auto) 1.7 x10^3/uL (1.0-4.8) 2.0 x10^3/uL (1.0-4.8) Monocytes # (Auto) 1.4 x10^3/uL (0.0-1.1) 1.6 x10^3/uL (0.0-1.1) Eosinophils # (Auto) 0.1 x10^3/uL (0.0-0.7) 0.2 x10^3/uL (0.0-0.7) Basophils # (Auto) 0.1 x10^3/uL (0.0-0.2) 0.1 x10^3/uL (0.0-0.2) Sodium Level 135 mmol/L (136-145) 132 mmol/L (136-145) Potassium Level 4.4 mmol/L (3.5-5.1) 4.7 mmol/L (3.5-5.1) Chloride Level 101 mmol/L (98-107) 97 mmol/L (98-107) Carbon Dioxide Level 29 mmol/L (21-32) 29 mmol/L (21-32) Anion Gap 5 (6-14) 6 (6-14) Blood Urea Nitrogen 15 mg/dL (8-26) 15 mg/dL (8-26) Creatinine 0.7 mg/dL (0.7-1.3) 0.7 mg/dL (0.7-1.3) Estimated GFR (Cockcroft-Gault) 111.2 111.2 Glucose Level 105 mg/dL (70-99) 101 mg/dL (70-99) Calcium Level 7.9 mg/dL (8.5-10.1) 8.5 mg/dL (8.5-10.1) Phosphorus Level 4.2 mg/dL (2.6-4.7) Magnesium Level 1.9 mg/dL (1.8-2.4) Triglycerides Level 112 mg/dL (0-150) Laboratory Tests Test 05/18/17 05:55 White Blood Count 12.6 x10^3/uL (4.0-11.0) Red Blood Count 3.01 x10^6/uL (4.30-5.70) Hemoglobin 9.5 g/dL (13.0-17.5) Hematocrit 28.8 % (39.0-53.0) Mean Corpuscular Volume 96 fL (79-100) Mean Corpuscular Hemoglobin 32 pg (25-35) Mean Corpuscular Hemoglobin Concent 33 g/dL (31-37) Red Cell Distribution Width 16.4 % (11.5-14.5) Platelet Count 431 x10^3/uL (140-400) Neutrophils (%) (Auto) 69 % (31-73) Lymphocytes (%) (Auto) 16 % (24-48) Monocytes (%) (Auto) 13 % (0-9) Eosinophils (%) (Auto) 2 % (0-3) Basophils (%) (Auto) 1 % (0-3) Neutrophils # (Auto) 8.7 x10^3uL (1.8-7.7) Lymphocytes # (Auto) 2.0 x10^3/uL (1.0-4.8) Monocytes # (Auto) 1.6 x10^3/uL (0.0-1.1) Eosinophils # (Auto) 0.2 x10^3/uL (0.0-0.7) Basophils # (Auto) 0.1 x10^3/uL (0.0-0.2) Sodium Level 132 mmol/L (136-145) Potassium Level 4.7 mmol/L (3.5-5.1) Chloride Level 97 mmol/L (98-107) Carbon Dioxide Level 29 mmol/L (21-32) Anion Gap 6 (6-14) Blood Urea Nitrogen 15 mg/dL (8-26) Creatinine 0.7 mg/dL (0.7-1.3) Estimated GFR (Cockcroft-Gault) 111.2 Glucose Level 101 mg/dL (70-99) Calcium Level 8.5 mg/dL (8.5-10.1) Triglycerides Level 112 mg/dL (0-150) Assessment/Plan supportive care Problems: FERNANDO CEJA [employer] May 18, 2017 08:50
[2017-05-18] MEDS: FAMOTIDINE 20 MG/2 ML VIAL IVP SCH (08:56)
--- NOTE | 2017-05-18 08:56 | PDOC ---
PROGRESS NOTES Chief Complaint Chief Complaint Crohn's dz Perf.ed viscus ASSESSMENT AND PLAN 1. s/p R part colectomy: on 04/[address] Garcia. ex lap on 05/05, now with R ileostomy. 2. Pain control: with start of NGT feeds, switch to lortab; IV narcotics as last resort 3. Pelvic abscess: E.coli, yeast, bacteroides initially. E.coli (pansensitive ) persistent on culture on 05/15 4. Respir failure: trached, vented. Pulm following 5. Hypotension: resolved 6. CHF: diastolic, nl EF. 7. Afib with RVR: improved, HR in 90s, at least partly due to pressors, sepsis. 8. Hypokalemia: resolved. monitor, replete per protocol 9. Hyponatremia: replete cautiously, monitor 10. Leukocytosis: reactive, c/w infection. monitor 11. Thrombocytopenia: resolved 12. Anemia: stable, normocytic, normochromic. suspect 2/2 inflammation. check iron labs; may benefit from enteric iron 13. Coagulopathy: elevated INR pre-op. resolved 14. Prophylaxis: lovenox, H2B History of Present Illness History of Present Illness awake, interactive with body language. indicating pain at trach site, denies abd pain Vitals Vitals Vital Signs Date Time Temp Pulse Resp B/P (MAP) Pulse Ox O2 Delivery O2 Flow Rate FiO2 05/18/17 08:15 22 100 Ventilator 3.0 05/18/17 06:00 88 92/64 (73) 05/18/17 03:00 98.7 98.7 Physical Exam General: Alert, Cooperative, No acute distress Heart: Regular rate, Other Lungs: Clear Abdomen: Soft, Other (ostomy with green liquid stool, wound tannish drainage, drains-dry this AM) Extremities: No clubbing, Other (2-3+ edema) Skin: No rashes, Other (dark fluid drainage from abdomen) Labs LABS Laboratory Tests Test 05/18/17 05:55 White Blood Count 12.6 x10^3/uL (4.0-11.0) Red Blood Count 3.01 x10^6/uL (4.30-5.70) Hemoglobin 9.5 g/dL (13.0-17.5) Hematocrit 28.8 % (39.0-53.0) Mean Corpuscular Volume 96 fL (79-100) Mean Corpuscular Hemoglobin 32 pg (25-35) Mean Corpuscular Hemoglobin Concent 33 g/dL (31-37) Red Cell Distribution Width 16.4 % (11.5-14.5) Platelet Count 431 x10^3/uL (140-400) Neutrophils (%) (Auto) 69 % (31-73) Lymphocytes (%) (Auto) 16 % (24-48) Monocytes (%) (Auto) 13 % (0-9) Eosinophils (%) (Auto) 2 % (0-3) Basophils (%) (Auto) 1 % (0-3) Neutrophils # (Auto) 8.7 x10^3uL (1.8-7.7) Lymphocytes # (Auto) 2.0 x10^3/uL (1.0-4.8) Monocytes # (Auto) 1.6 x10^3/uL (0.0-1.1) Eosinophils # (Auto) 0.2 x10^3/uL (0.0-0.7) Basophils # (Auto) 0.1 x10^3/uL (0.0-0.2) Sodium Level 132 mmol/L (136-145) Potassium Level 4.7 mmol/L (3.5-5.1) Chloride Level 97 mmol/L (98-107) Carbon Dioxide Level 29 mmol/L (21-32) Anion Gap 6 (6-14) Blood Urea Nitrogen 15 mg/dL (8-26) Creatinine 0.7 mg/dL (0.7-1.3) Estimated GFR (Cockcroft-Gault) 111.2 Glucose Level 101 mg/dL (70-99) Calcium Level 8.5 mg/dL (8.5-10.1) Triglycerides Level 112 mg/dL (0-150) KAYLYNN CONNELL MD May 18, 2017 08:55
--- NOTE | 2017-05-18 08:56 | PDOC ---
PROGRESS NOTES Assessment Metabolic encephalopathy. Respiratory failure. AFib Sepsis Crohn's disease s/p colectomy. S/p perforation viscus. 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 S/P trache, decision pending on PEG Plan Continue Medical treatment. Subjective denies pain, got some Fentanyl Objective Vital Signs Date Time Temp Pulse Resp B/P (MAP) Pulse Ox O2 Delivery O2 Flow Rate FiO2 05/18/17 08:15 22 100 Ventilator 3.0 05/18/17 06:00 88 92/64 (73) 05/18/17 03:00 98.7 98.7 Intake and Output 05/18/17 07:00 Intake Total 2228.50 ml Output Total 2418 ml Balance -189.50 ml IV Total 2128.50 ml Blood Product IV Normal Saline Flush 100 ml Output Urine Total 2155 ml Gastric Drainage Total 0 ml Drainage Total 263 ml PHYSICAL EXAM Alert. Follows commands, mouths replies PERRL. EOMI. CN: no focal findings. Muscle tone: normal. Muscle strength: 4/5 DTR: 1+ Plantar reflex: Flexor Gait: not examined in bed. Sensory exam: no abnormal findings. No cerebellar signs elicited. Review of Relevant I have reviewed the following items manuel (where applicable) has been applied. Labs Laboratory Tests Test 05/17/17 06:00 05/18/17 05:55 White Blood Count 11.8 x10^3/uL (4.0-11.0) 12.6 x10^3/uL (4.0-11.0) Red Blood Count 3.04 x10^6/uL (4.30-5.70) 3.01 x10^6/uL (4.30-5.70) Hemoglobin 9.8 g/dL (13.0-17.5) 9.5 g/dL (13.0-17.5) Hematocrit 28.8 % (39.0-53.0) 28.8 % (39.0-53.0) Mean Corpuscular Volume 95 fL (79-100) 96 fL (79-100) Mean Corpuscular Hemoglobin 32 pg (25-35) 32 pg (25-35) Mean Corpuscular Hemoglobin Concent 34 g/dL (31-37) 33 g/dL (31-37) Red Cell Distribution Width 16.0 % (11.5-14.5) 16.4 % (11.5-14.5) Platelet Count 455 x10^3/uL (140-400) 431 x10^3/uL (140-400) Neutrophils (%) (Auto) 72 % (31-73) 69 % (31-73) Lymphocytes (%) (Auto) 14 % (24-48) 16 % (24-48) Monocytes (%) (Auto) 12 % (0-9) 13 % (0-9) Eosinophils (%) (Auto) 1 % (0-3) 2 % (0-3) Basophils (%) (Auto) 1 % (0-3) 1 % (0-3) Neutrophils # (Auto) 8.4 x10^3uL (1.8-7.7) 8.7 x10^3uL (1.8-7.7) Lymphocytes # (Auto) 1.7 x10^3/uL (1.0-4.8) 2.0 x10^3/uL (1.0-4.8) Monocytes # (Auto) 1.4 x10^3/uL (0.0-1.1) 1.6 x10^3/uL (0.0-1.1) Eosinophils # (Auto) 0.1 x10^3/uL (0.0-0.7) 0.2 x10^3/uL (0.0-0.7) Basophils # (Auto) 0.1 x10^3/uL (0.0-0.2) 0.1 x10^3/uL (0.0-0.2) Sodium Level 135 mmol/L (136-145) 132 mmol/L (136-145) Potassium Level 4.4 mmol/L (3.5-5.1) 4.7 mmol/L (3.5-5.1) Chloride Level 101 mmol/L (98-107) 97 mmol/L (98-107) Carbon Dioxide Level 29 mmol/L (21-32) 29 mmol/L (21-32) Anion Gap 5 (6-14) 6 (6-14) Blood Urea Nitrogen 15 mg/dL (8-26) 15 mg/dL (8-26) Creatinine 0.7 mg/dL (0.7-1.3) 0.7 mg/dL (0.7-1.3) Estimated GFR (Cockcroft-Gault) 111.2 111.2 Glucose Level 105 mg/dL (70-99) 101 mg/dL (70-99) Calcium Level 7.9 mg/dL (8.5-10.1) 8.5 mg/dL (8.5-10.1) Phosphorus Level 4.2 mg/dL (2.6-4.7) Magnesium Level 1.9 mg/dL (1.8-2.4) Triglycerides Level 112 mg/dL (0-150) Laboratory Tests Test 05/18/17 05:55 White Blood Count 12.6 x10^3/uL (4.0-11.0) Red Blood Count 3.01 x10^6/uL (4.30-5.70) Hemoglobin 9.5 g/dL (13.0-17.5) Hematocrit 28.8 % (39.0-53.0) Mean Corpuscular Volume 96 fL (79-100) Mean Corpuscular Hemoglobin 32 pg (25-35) Mean Corpuscular Hemoglobin Concent 33 g/dL (31-37) Red Cell Distribution Width 16.4 % (11.5-14.5) Platelet Count 431 x10^3/uL (140-400) Neutrophils (%) (Auto) 69 % (31-73) Lymphocytes (%) (Auto) 16 % (24-48) Monocytes (%) (Auto) 13 % (0-9) Eosinophils (%) (Auto) 2 % (0-3) Basophils (%) (Auto) 1 % (0-3) Neutrophils # (Auto) 8.7 x10^3uL (1.8-7.7) Lymphocytes # (Auto) 2.0 x10^3/uL (1.0-4.8) Monocytes # (Auto) 1.6 x10^3/uL (0.0-1.1) Eosinophils # (Auto) 0.2 x10^3/uL (0.0-0.7) Basophils # (Auto) 0.1 x10^3/uL (0.0-0.2) Sodium Level 132 mmol/L (136-145) Potassium Level 4.7 mmol/L (3.5-5.1) Chloride Level 97 mmol/L (98-107) Carbon Dioxide Level 29 mmol/L (21-32) Anion Gap 6 (6-14) Blood Urea Nitrogen 15 mg/dL (8-26) Creatinine 0.7 mg/dL (0.7-1.3) Estimated GFR (Cockcroft-Gault) 111.2 Glucose Level 101 mg/dL (70-99) Calcium Level 8.5 mg/dL (8.5-10.1) Triglycerides Level 112 mg/dL (0-150) Microbiology 05/06/17 Blood Culture - Final, Complete NO GROWTH AFTER 5 DAYS 05/15/17 Gram Stain - Final, Complete Medications Current Medications Ondansetron HCl (Zofran) 4 mg PRN Q6HRS PRN IV NAUSEA/VOMITING; Start 04/29/17 at 07:00; Stop 04/29/17 at 17:32; Status DC Fentanyl Citrate (Fentanyl 2ml Vial) 25 mcg PRN Q5MIN PRN IV MILD PAIN; Start 04/29/17 at 07:00; Stop 04/30/17 at 06:59; Status DC Fentanyl Citrate (Fentanyl 2ml Vial) 50 mcg PRN Q5MIN PRN IV MODERATE PAIN Last administered on 04/29/17 16:59; Start 04/29/17 at 07:00; Stop 04/30/17 at 06:59; Status DC Morphine Sulfate 1 mg PRN Q10MIN PRN IV SEVERE PAIN Last administered on 16:41; Start 04/29/17 at 07:00; Stop 04/30/17 at 06:59; Status DC Ringer's Solution 1,000 ml @ 30 mls/hr Q24H IV Last administered on 04/29/17 10:42; Start 04/29/17 at 07:00; Stop 04/29/17 at 18:59; Status DC Lidocaine HCl 2 ml PRN 1X PRN ID PRIOR TO IV START; Start 04/29/17 at 07:00; Stop 04/30/17 at 06:59; Status DC Hydromorphone HCl (Dilaudid) 0.5 mg PRN Q10MIN PRN IV SEV PAIN, Second choice; Start 04/29/17 at 07:00; Stop 04/30/17 at 06:59; Status DC Prochlorperazine Edisylate (Compazine) 5 mg PACU PRN PRN IV NAUSEA, MRX1; Start 04/29/17 at 07:00; Stop 04/30/17 at 06:59; Status DC Cefoxitin Sodium 1 gm/Sodium Chloride 50 ml @ 100 mls/hr 1X ONCE IV Last administered on 04/29/17t 12:00; Start 04/29/17 at 06:00; Stop 04/29/17 at 06:29 ; Status DC Dexamethasone Sodium Phosphate (Decadron) 20 mg STK-MED ONCE .ROUTE ; Start at 10:47; Stop 04/29/17 at 10:48; Status DC Ondansetron HCl (Zofran) 4 mg STK-MED ONCE .ROUTE ; Start 04/29/17 at 10:47; Stop 04/29/17 at 10:48; Status DC Propofol 20 ml @ As Directed STK-MED ONCE IV ; Start 04/29/17 at 10:47; Stop at 10:48; Status DC Lidocaine HCl (Lidocaine Pf 2% Vial) 5 ml STK-MED ONCE .ROUTE ; Start 04/29/17 at 10:47; Stop 04/29/17 at 10:48; Status DC Desflurane (Suprane) 60 ml STK-MED ONCE IH ; Start 04/29/17 at 10:47; Stop 04/29 at 10:48; Status DC Fentanyl Citrate (Fentanyl 2ml Vial) 100 mcg STK-MED ONCE .ROUTE ; Start at 10:47; Stop 04/29/17 at 10:48; Status DC Rocuronium Hope (Zemuron) 50 mg STK-MED ONCE .ROUTE ; Start 04/29/17 at 10:47 ; Stop 04/29/17 at 10:48; Status DC Phenylephrine HCl 1 mg STK-MED ONCE IV ; Start 04/29/17 at 11:52; Stop 04/29/17 at 11:53; Status DC Hydrocortisone Sodium Succinate (Solu-CORTEF) 100 mg STK-MED ONCE .ROUTE ; Start 04/29/17 at 12:04; Stop 04/29/17 at 12:05; Status DC Fentanyl Citrate (Fentanyl 2ml Vial) 100 mcg STK-MED ONCE .ROUTE ; Start at 12:21; Stop 04/29/17 at 12:22; Status DC Rocuronium Hope (Zemuron) 50 mg STK-MED ONCE .ROUTE ; Start 04/29/17 at 12:53 ; Stop 04/29/17 at 12:54; Status DC Labetalol HCl (Normodyne) 20 mg STK-MED ONCE .ROUTE ; Start 04/29/17 at 12:53; Stop 04/29/17 at 12:54; Status DC Fentanyl Citrate (Fentanyl 2ml Vial) 100 mcg STK-MED ONCE .ROUTE ; Start at 12:55; Stop 04/29/17 at 12:56; Status DC Esmolol HCl (Brevibloc) 100 mg STK-MED ONCE IV ; Start 04/29/17 at 12:59; Stop 04/29/17 at 13:00; Status DC Morphine Sulfate 10 mg STK-MED ONCE .ROUTE ; Start 04/29/17 at 13:03; Stop 04/29 at 13:04; Status DC Rocuronium Hope (Zemuron) 100 mg STK-MED ONCE .ROUTE ; Start 04/29/17 at 14: 10; Stop 04/29/17 at 14:11; Status DC Fentanyl Citrate (Fentanyl 2ml Vial) 100 mcg STK-MED ONCE .ROUTE ; Start at 15:08; Stop 04/29/17 at 15:09; Status DC Glycopyrrolate (Robinul) 1 mg STK-MED ONCE .ROUTE ; Start 04/29/17 at 15:29; Stop 04/29/17 at 15:30; Status DC Neostigmine Methylsulfate 5 mg STK-MED ONCE .ROUTE ; Start 04/29/17 at 15:29; Stop 04/29/17 at 15:30; Status DC Esmolol HCl (Brevibloc) 100 mg STK-MED ONCE IV ; Start 04/29/17 at 16:05; Stop 04/29/17 at 16:06; Status DC Diphenhydramine HCl (Benadryl) 25 mg PRN Q6HRS PRN IV ITCHING Last administered on 05/04/17 20:36; Start 04/29/17 at 16:30 Enoxaparin Sodium (Lovenox 40mg Syringe) 40 mg Q24H SQ Last administered on 05/10 06:27; Start 04/30/17 at 06:00; Stop 05/10/17 at 20:48; Status DC Sodium Chloride (Normal Saline Flush) 3 ml QSHIFT PRN IV AFTER MEDS AND BLOOD DRAWS; Start 04/29/17 at 16:30 Potassium Chloride/Sodium Chloride 1,000 ml @ 100 mls/hr Q10H IV Last administered on 05/01/17 00:17; Start 04/29/17 at 16:26; Stop 05/01/17 at 18:31 ; Status DC Hydromorphone HCl 30 ml @ 0 mls/hr CONT PRN PRN IV PROTOCOL Last administered on 04/30/17 18:01; Start 04/29/17 at 16:30; Stop 05/03/17 at 09:45; Status DC Ondansetron HCl (Zofran) 4 mg PRN Q6HRS PRN IV NAUESA, 1ST CHOICE; Start at 16:30; Stop 05/02/17 at 12:27; Status DC Throat Lozenges (Chloraseptic) 1 spray PRN Q2HR PRN PO SORE THROAT; Start 04/29 at 16:45; Stop 05/05/17 at 11:28; Status DC Throat Lozenges (Chloraseptic) 1 spray PRN Q2HR PRN PO SORE THROAT; Start 04/29 at 16:45; Stop 04/29/17 at 17:32; Status DC Digoxin (Lanoxin) 125 mcg DAILY PO Last administered on 05/01/17 09:32; Start 04/30/17 at 09:00; Stop 05/01/17 at 14:05; Status DC Prednisone (Prednisone) 10 mg DAILY PO ; Start 04/30/17 at 09:00; Stop 04/30/17 at 16:33; Status DC Methylprednisolone Sodium Succinate (SOLU-Medrol 40MG VIAL) 15 mg DAILY IV Last administered on 05/02/17 07:59; Start 04/30/17 at 11:00; Stop 05/02/17 at 14:00; Status DC Pantoprazole Sodium (Protonix Vial) 40 mg DAILYAC IVP Last administered on 05/02 07:57; Start 04/30/17 at 17:00; Stop 05/02/17 at 13:45; Status DC Digoxin (Lanoxin) 250 mcg DAILY PO Last administered on 05/05/17 09:29; Start 05/02/17 at 09:00; Stop 05/06/17 at 14:54; Status DC Sodium Chloride 1,000 ml @ 100 mls/hr Q10H IV Last administered on 05/04/17 03:25; Start 05/01/17 at 18:30; Stop 05/04/17 at 15:20; Status DC Nicotine (Nicoderm Cq 14mg) 1 patch PRN DAILY PRN TD SMOKING CESSATION Last administered on 05/04/17 11:15; Start 05/02/17 at 06:45 Ondansetron HCl (Zofran) 4 mg PRN Q6HRS PRN IV NAUSEA/VOMITING Last administered on 05/05/17 09:36; Start 05/02/17 at 12:30 Acetaminophen/ Hydrocodone Bitart (Lortab 5/325) 1 tab PRN Q4HRS PRN PO MILD PAIN Last administered on 05/04/17 17:13; Start 05/02/17 at 12:30 Fentanyl Citrate (Fentanyl 2ml Vial) 50 mcg PRN Q2HR PRN IV MODERATE PAIN Last administered on 05/06/17 08:14; Start 05/02/17 at 12:30; Stop 05/06/17 at 10:55 ; Status DC Famotidine (Pepcid) 20 mg DAILY IVP Last administered on 05/03/17 09:01; Start 05/03/17 at 09:00; Stop 05/03/17 at 09:45; Status DC Hydromorphone HCl (Dilaudid) 1 mg PRN Q4HRS PRN IV SEVERE PAIN Last administered on 05/04/17 11:13; Start 05/03/17 at 09:45; Stop 05/06/17 at 10:55 ; Status DC Morphine Sulfate (Ms Contin) 15 mg BID PO Last administered on 05/04/17 21:35 ; Start 05/03/17 at 09:45; Stop 05/08/17 at 09:52; Status DC Metoprolol Tartrate (Lopressor) 12.5 mg Q6HRS PO Last administered on 11:14; Start 05/03/17 at 19:00; Stop 05/04/17 at 12:51; Status DC Info 1 each PRN DAILY PRN MC SEE COMMENTS Last administered on 05/17/17 09:05; Start 05/04/17 at 11:15 Metoprolol Tartrate (Lopressor) 25 mg BID PO ; Start 05/04/17 at 21:00; Stop at 14:54; Status DC Magnesium Sulfate/ Dextrose 50 ml @ 25 mls/hr 1X ONCE IV Last administered on 05/04/17 15:46; Start 05/04/17 at 16:00; Stop 05/04/17 at 17:59; Status DC Amino Acids/ Glycerin/ Electrolytes 1,000 ml @ 80 mls/hr [id number] IV Last administered on 05/05/17 05:32; Start 05/04/17 at 16:00; Stop 05/05/17 at 21:59 ; Status DC Amino Acids/ Glycerin/ Electrolytes 1,000 ml @ 80 mls/hr [id number] IV ; Start at 15:30; Status UNV Sodium Chloride 1,000 ml @ 100 mls/hr Q10H IV Last administered on 05/05/17 16:32; Start 05/04/17 at 16:00; Stop 05/06/17 at 01:03; Status DC Albumin Human 500 ml @ 100 mls/hr 1X ONCE IV Last administered on 05/05/17 00:05; Start 05/04/17 at 22:00; Stop 05/05/17 at 02:59; Status DC Lidocaine HCl (Glydo (Lidocaine) Jelly) 1 emelia 1X ONCE MM Last administered on 05/05/17 08:30; Start 05/05/17 at 08:30; Stop 05/05/17 at 08:35; Status DC Throat Lozenges (Chloraseptic) 1 spray PRN Q2HR PRN PO SORE THROAT; Start 05/05 at 08:30 Non-Formulary Medication 1 each DAILY PO ; Start 05/06/17 at 09:00; Stop at 09:00; Status DC Non-Formulary Medication 1 tab QHS PO ; Start 05/05/17 at 21:00; Stop 05/05/17 at 21:00; Status DC Benzocaine (Hurricaine One) 1 spray 1X ONCE MM Last administered on 05/05/17 10:30; Start 05/05/17 at 10:30; Stop 05/05/17 at 10:31; Status DC Throat Lozenges (Cepacol Sore Throat Lozenge) 1 west PRN Q2HRS PRN PO SORE THROAT; Start 05/05/17 at 11:00 Albumin Human 500 ml @ 100 mls/hr 1X ONCE IV Last administered on 05/05/17 13:24; Start 05/05/17 at 11:15; Stop 05/05/17 at 16:14; Status DC Sodium Chloride 1,000 ml @ 1,000 mls/hr 1X ONCE IV ; Start 05/05/17 at 11:30; Stop 05/05/17 at 12:29; Status DC Famotidine (Pepcid) 20 mg BID IVP Last administered on 05/17/17 20:27; Start at 12:00 Amiodarone HCl 900 mg/Dextrose 518 ml @ 0 mls/hr CONT PRN IV SEE I/O RECORD Last administered on 05/05/17 13:17; Start 05/05/17 at 12:15; Stop 05/05/17 at 13:17; Status DC Amiodarone HCl 150 mg/Dextrose 103 ml @ 618 mls/hr 1X ONCE IV Last administered on 05/05/17 12:30; Start 05/05/17 at 12:30; Stop 05/05/17 at 12:39 ; Status DC Potassium Phosphate 13.6 mmol/Sodium Chloride 104.5333 ml @ 52.267 m... Q2H IV ; Start 05/05/17 at 14:30; Stop 05/05/17 at 16:29; Status DC Sodium Chloride 90 meq/Potassium Chloride 50 meq/ Potassium Phosphate 17 mmol/ Magnesium Sulfate 10 meq/Calcium Gluconate 5 meq/ Multivitamins 10 ml/Chromium/ Copper/Manganese/ Seleni/Zn 1 ml/ Total Parenteral Nutrition/Amino Acids/ Dextrose/ Fat Emulsion Intravenous 1,512 ml @ 63 mls/hr TPN CONT IV Last administered on 05/05/17 21:46; Start 05/05/17 at 22:00; Stop 05/06/17 at 21:59 ; Status DC Iohexol (Omnipaque 300 Mg/ml) 60 ml 1X ONCE IV Last administered on 05/05/17 14:50; Start 05/05/17 at 14:45; Stop 05/05/17 at 14:46; Status DC Info (Do NOT chart on this entry -- for MONITORING) 1 each PRN DAILY PRN MC SEE COMMENTS; Start 05/05/17 at 14:45; Stop 05/07/17 at 14:45; Status DC Sodium Chloride 1,000 ml @ 2,000 mls/hr 1X ONCE IV Last administered on 16:33; Start 05/05/17 at 16:00; Stop 05/05/17 at 16:29; Status DC Vancomycin HCl (Vanco Per Pharmacy) 1 each PRN DAILY PRN MC SEE COMMENTS Last administered on 05/08/17 09:08; Start 05/05/17 at 16:00; Stop 05/09/17 at 14:01 ; Status DC Piperacillin Sod/ Tazobactam Sod (Zosyn Per Pharmacy) 1 each PRN DAILY PRN MC SEE COMMENTS; Start 05/05/17 at 16:00; Stop 05/10/17 at 07:20; Status DC Piperacillin Sod/ Tazobactam Sod 4.5 gm/Sodium Chloride 100 ml @ 200 mls/hr Q6HRS IV Last administered on 05/09/17 13:02; Start 05/05/17 at 17:00; Stop 05/09/17 at 13:58; Status DC Vancomycin HCl 1.75 gm/Sodium Chloride 500 ml @ 250 mls/hr 1X ONCE IV Last administered on 05/05/17 16:30; Start 05/05/17 at 17:00; Stop 05/05/17 at 18:59 ; Status DC Potassium Chloride 50 ml @ 50 mls/hr Q1H IV Last administered on 05/05/17 16: 59; Start 05/05/17 at 16:30; Stop 05/05/17 at 19:29; Status DC Vancomycin HCl 1.25 gm/Sodium Chloride 250 ml @ 167 mls/hr Q12H IV Last administered on 05/06/17 18:57; Start 05/06/17 at 06:00; Stop 05/07/17 at 07:47 ; Status DC Vancomycin HCl 1 each 1X ONCE MC Last administered on 6/29/17at 05:30; Start 05/07/17 at 05:30; Stop 05/07/17 at 05:31; Status DC Norepinephrine Bitartrate 250 ml @ As Directed STK-MED ONCE IV ; Start at 16:22; Stop 05/05/17 at 16:23; Status DC Norepinephrine Bitartrate 250 ml @ 0 mls/hr CONT PRN IV SEE I/O RECORD Last administered on 05/10/17 17:53; Start 05/05/17 at 16:45 Vasopressin 40 unit/Dextrose 102 ml @ 6 mls/hr CONT PRN IV SEE I/O RECORD Last administered on 05/09/17 19:25; Start 05/05/17 at 17:00 Phenylephrine HCl 20 mg/Sodium Chloride 252 ml @ 0 mls/hr CONT PRN IV SEE I/O RECORD Last administered on 05/06/17 06:22; Start 05/05/17 at 17:00; Stop 05/06 at 08:00; Status DC Propofol 0 ml @ As Directed STK-MED ONCE IV ; Start 05/05/17 at 17:21; Stop at 17:22; Status DC Lidocaine HCl (Lidocaine Pf 2% Vial) 5 ml STK-MED ONCE .ROUTE ; Start 05/05/17 at 17:21; Stop 05/05/17 at 17:22; Status DC Fentanyl Citrate (Fentanyl 2ml Vial) 100 mcg STK-MED ONCE .ROUTE ; Start at 17:22; Stop 05/05/17 at 17:23; Status DC Succinylcholine Chloride (Anectine) 200 mg STK-MED ONCE .ROUTE ; Start 05/05/17 at 17:22; Stop 05/05/17 at 17:23; Status DC Rocuronium Hope (Zemuron) 50 mg STK-MED ONCE .ROUTE ; Start 05/05/17 at 17:22 ; Stop 05/05/17 at 17:23; Status DC Etomidate (Amidate) 20 mg STK-MED ONCE IV ; Start 05/05/17 at 17:25; Stop at 17:26; Status DC Desflurane (Suprane) 60 ml STK-MED ONCE IH ; Start 05/05/17 at 18:02; Stop 05/05 at 18:03; Status DC Rocuronium Hope (Zemuron) 50 mg STK-MED ONCE .ROUTE ; Start 05/05/17 at 18:52 ; Stop 05/05/17 at 18:53; Status DC Phenylephrine HCl (Bhargav-Synephrine Inj) 10 mg STK-MED ONCE .ROUTE ; Start at 19:53; Stop 05/05/17 at 19:54; Status DC Propofol 100 ml @ 0 mls/hr CONT PRN IV SEE I/O RECORD Last administered on 03:44; Start 05/05/17 at 21:30 Midazolam HCl 100 ml @ 0 mls/hr CONT PRN IV SEE I/O RECORD Last administered on 05/08/17 00:43; Start 05/05/17 at 22:00; Stop 05/13/17 at 09:33; Status DC Sodium Bicarbonate 150 meq/Dextrose 1,150 ml @ 100 mls/hr [id number] IV Last administered on 05/07/17 03:44; Start 05/06/17 at 02:00; Stop 05/07/17 at 10:32 ; Status DC Micafungin Sodium 100 mg/Dextrose 100 ml @ 100 mls/hr Q24H IV Last administered on 05/09/17 08:00; Start 05/06/17 at 08:00; Stop 05/09/17 at 13:58; Status DC Phenylephrine HCl 80 mg/Sodium Chloride 258 ml @ 0 mls/hr CONT PRN IV SEE I/O RECORD Last administered on 05/06/17 08:16; Start 05/06/17 at 08:00 Potassium Phosphate 10 mmol/ Sodium Chloride 103.3333 ml @ 51.667 m... Q2H IV Last administered on 05/06/17 16:11; Start 05/06/17 at 08:30; Stop 05/06/17 at 12:29; Status DC Fentanyl Citrate 30 ml @ 0 mls/hr CONT PRN PRN IV PROTOCOL Last administered on 05/10/17 10:47; Start 05/06/17 at 10:45; Stop 05/13/17 at 09:33; Status DC Naloxone HCl (Narcan) 0.4 mg PRN Q2MIN PRN IV SEE INSTRUCTIONS; Start 05/06/17 at 10:45 Sodium Chloride 1,000 ml @ 25 mls/hr Q24H IV Last administered on 05/10/17 10: 17; Start 05/06/17 at 11:00; Stop 05/13/17 at 17:35; Status DC Norepinephrine Bitartrate 250 ml @ 0 mls/hr CONT PRN IV SEE I/O RECORD; Start 05/06/17 at 10:45; Status Cancel Sodium Chloride 90 meq/Sodium Acetate 40 meq/ Potassium Chloride 50 meq/ Potassium Phosphate 25 mmol/ Magnesium Sulfate 15 meq/Calcium Gluconate 5 meq/ Multivitamins 10 ml/Chromium/ Copper/Manganese/ Seleni/Zn 1 ml/ Total Parenteral Nutrition/Amino Acids/Dextrose/ Fat Emulsion Intravenous 1,512 ml @ 63 mls/hr TPN CONT IV Last administered on 05/06/17 21:38; Start 05/06/17 at 22:00; Stop 05/07/17 at 21:59; Status DC Famotidine (Pepcid) 20 mg BID IVP ; Start 05/06/17 at 21:00; Status UNV Digoxin (Lanoxin) 250 mcg DAILY PO ; Start 05/06/17 at 16:00; Stop 05/08/17 at 10:59; Status DC Vancomycin HCl 1 gm/Sodium Chloride 250 ml @ 250 mls/hr Q8H IV Last administered on 05/09/17 12:59; Start 05/07/17 at 08:00; Stop 05/09/17 at 13:58; Status DC Vancomycin HCl 1 each 1X ONCE MC ; Start 05/08/17 at 07:30; Stop 05/08/17 at 07 :31; Status DC Potassium Phosphate 15 mmol/ Sodium Chloride 255 ml @ 127.5 mls/ hr 1X ONCE IV Last administered on 05/07/17 10:46; Start 05/07/17 at 10:30; Stop at 12:29; Status DC Sodium Chloride 1,000 ml @ 75 mls/hr [id number] IV Last administered on 05/15/17 20:26; Start 05/07/17 at 12:00; Stop 05/16/17 at 13:07; Status DC Sodium Chloride 90 meq/Sodium Acetate 40 meq/ Potassium Chloride 50 meq/ Potassium Phosphate 25 mmol/ Magnesium Sulfate 15 meq/Calcium Gluconate 5 meq/ Multivitamins 10 ml/Chromium/ Copper/Manganese/ Seleni/Zn 1 ml/ Total Parenteral Nutrition/Amino Acids/Dextrose/ Fat Emulsion Intravenous 1,512 ml @ 63 mls/hr TPN CONT IV Last administered on 05/07/17 21:06; Start 05/07/17 at 22:00; Stop 05/08/17 at 21:59; Status DC Albumin Human 100 ml @ 100 mls/hr 1X ONCE IV Last administered on 05/07/17 21:06; Start 05/07/17 at 20:45; Stop 05/07/17 at 21:44; Status DC Potassium Phosphate 15 mmol/ Sodium Chloride 255 ml @ 85 mls/hr Q2H IV Last administered on 05/07/17 21:55; Start 05/07/17 at 22:00; Stop 05/07/17 at 23:59 ; Status DC Digoxin (Lanoxin) 250 mcg DAILY IV Last administered on 05/17/17 08:56; Start 05/08/17 at 11:15 Sodium Chloride 90 meq/Sodium Acetate 40 meq/ Potassium Chloride 50 meq/ Potassium Phosphate 20 mmol/ Magnesium Sulfate 15 meq/Calcium Gluconate 5 meq/ Multivitamins 10 ml/Chromium/ Copper/Manganese/ Seleni/Zn 1 ml/ Total Parenteral Nutrition/Amino Acids/Dextrose/ Fat Emulsion Intravenous 1,512 ml @ 63 mls/hr TPN CONT IV Last administered on 05/08/17 21:39; Start 05/08/17 at 22:00; Stop 05/09/17 at 21:59; Status DC Chlorhexidine Gluconate (Peridex) 15 ml BID SWSP Last administered on 05/17/17 20:27; Start 05/08/17 at 21:00 Multi-Ingred Cream/Lotion/Oil/ Oint (Artificial Tears Eye Oint) 1 emelia PRN Q12HR PRN OU DRY EYE Last administered on 05/08/17 16:31; Start 05/08/17 at 14:45 Sodium Chloride 90 meq/Sodium Acetate 40 meq/ Potassium Acetate 70 meq/ Potassium Phosphate 20 mmol/ Magnesium Sulfate 15 meq/Calcium Gluconate 5 meq/ Multivitamins 10 ml/Chromium/ Copper/Manganese/ Seleni/Zn 1 ml/ Total Parenteral Nutrition/Amino Acids/Dextrose/ Fat Emulsion Intravenous 1,512 ml @ 63 mls/hr TPN CONT IV Last administered on 05/09/17 22:13; Start 05/09/17 at 22 :00; Stop 05/10/17 at 21:59; Status DC Ceftriaxone Sodium 1 gm/ Sodium Chloride 50 ml @ 100 mls/hr Q24H IV Last administered on 05/11/17 15:11; Start 05/09/17 at 14:00; Stop 05/12/17 at 08:25; Status DC Sodium Chloride 60 meq/Sodium Acetate 50 meq/ Potassium Acetate 90 meq/ Potassium Phosphate 20 mmol/ Magnesium Sulfate 15 meq/Calcium Gluconate 5 meq/ Multivitamins 10 ml/Chromium/ Copper/Manganese/ Seleni/Zn 1 ml/ Total Parenteral Nutrition/Amino Acids/Dextrose/ Fat Emulsion Intravenous 1,512 ml @ 63 mls/hr TPN CONT IV Last administered on 05/10/17 21:24; Start 05/10/17 at 22 :00; Stop 05/11/17 at 21:59; Status DC Enoxaparin Sodium (Lovenox 40mg Syringe) 40 mg Q24H SQ Last administered on 05/17 20:28; Start 05/10/17 at 21:00 Sodium Chloride 40 meq/Sodium Acetate 50 meq/ Potassium Acetate 90 meq/ Potassium Phosphate 20 mmol/ Magnesium Sulfate 15 meq/Calcium Gluconate 5 meq/ Multivitamins 10 ml/Chromium/ Copper/Manganese/ Seleni/Zn 1 ml/ Total Parenteral Nutrition/Amino Acids/Dextrose/ Fat Emulsion Intravenous 1,512 ml @ 63 mls/hr TPN CONT IV Last administered on 05/11/17 20:42; Start 05/11/17 at 22 :00; Stop 05/12/17 at 21:59; Status DC Micafungin Sodium 100 mg/Dextrose 100 ml @ 100 mls/hr Q24H IV Last administered on 05/17/17 12:37; Start 05/11/17 at 12:00 Piperacillin Sod/ Tazobactam Sod 3.375 gm/Sodium Chloride 50 ml @ 100 mls/hr Q6HRS IV Last administered on 05/18/17 05:35; Start 05/12/17 at 09:00 Sodium Chloride 40 meq/Sodium Acetate 50 meq/ Potassium Acetate 90 meq/ Potassium Phosphate 20 mmol/ Magnesium Sulfate 15 meq/Calcium Gluconate 5 meq/ Multivitamins 10 ml/Chromium/ Copper/Manganese/ Seleni/Zn 1 ml/ Total Parenteral Nutrition/Amino Acids/Dextrose/ Fat Emulsion Intravenous 1,512 ml @ 63 mls/hr TPN CONT IV Last administered on 05/12/17 21:57; Start 05/12/17 at 22 :00; Stop 05/13/17 at 21:59; Status DC Albumin Human 100 ml @ 100 mls/hr 1X ONCE IV Last administered on 05/12/17 21 :05; Start 05/12/17 at 21:00; Stop 05/12/17 at 21:59; Status DC Alteplase, Recombinant (Cathflo) 2 mg 1X ONCE INT CAT Last administered on 05/12 21:04; Start 05/12/17 at 21:00; Stop 05/12/17 at 21:01; Status DC Iohexol (Omnipaque 300 Mg/ml) 75 ml 1X ONCE IV Last administered on 05/13/17 09:16; Start 05/13/17 at 09:30; Stop 05/13/17 at 09:31; Status DC Info (Do NOT chart on this entry -- for MONITORING) 1 each PRN DAILY PRN MC SEE COMMENTS; Start 05/13/17 at 07:45; Stop 05/15/17 at 07:44; Status DC Fentanyl Citrate (Fentanyl 2ml Vial) 100 mcg STK-MED ONCE .ROUTE ; Start at 09:26; Stop 05/13/17 at 09:27; Status DC Fentanyl Citrate (Fentanyl 2ml Vial) 25 mcg PRN Q2HR PRN IV PAIN Last administered on 05/15/17 08:15; Start 05/13/17 at 09:30 Fentanyl Citrate (Fentanyl 2ml Vial) 50 mcg PRN Q2HR PRN IV PAIN Last administered on 05/18/17 07:45; Start 05/13/17 at 09:45 Sodium Chloride 40 meq/Sodium Acetate 50 meq/ Potassium Acetate 90 meq/ Potassium Phosphate 20 mmol/ Magnesium Sulfate 15 meq/Calcium Gluconate 5 meq/ Multivitamins 10 ml/Chromium/ Copper/Manganese/ Seleni/Zn 1 ml/ Total Parenteral Nutrition/Amino Acids/Dextrose/ Fat Emulsion Intravenous 1,512 ml @ 63 mls/hr TPN CONT IV Last administered on 05/13/17 21:05; Start 05/13/17 at 22 :00; Stop 05/14/17 at 21:59; Status DC Linezolid 300 ml @ 300 mls/hr Q12HR IV Last administered on 05/17/17 20:27; Start 05/14/17 at 09:00 Phenylephrine HCl 1 mg STK-MED ONCE IV ; Start 05/14/17 at 10:31; Stop 05/14/17 at 10:32; Status DC Fentanyl Citrate (Fentanyl 2ml Vial) 100 mcg STK-MED ONCE .ROUTE ; Start at 10:31; Stop 05/14/17 at 10:32; Status DC Midazolam HCl (Versed) 2 mg STK-MED ONCE .ROUTE ; Start 05/14/17 at 10:31; Stop 05/14/17 at 10:32; Status DC Ephedrine Sulfate 50 mg STK-MED ONCE IV ; Start 05/14/17 at 10:31; Stop 05/14/17 at 10:32; Status DC Rocuronium Hope (Zemuron) 50 mg STK-MED ONCE .ROUTE ; Start 05/14/17 at 10:31 ; Stop 05/14/17 at 10:32; Status DC Cellulose 1 each STK-MED ONCE .ROUTE ; Start 05/14/17 at 10:43; Stop 05/14/17 at 10:44; Status DC Bupivacaine HCl/ Epinephrine Bitart (Marcaine-Epi 0.5%-[id number]) 50 ml STK-MED ONCE .ROUTE Last administered on 05/14/17 11:30; Start 05/14/17 at 10:43; Stop 05/14/17 at 10:44; Status DC Sodium Chloride 40 meq/Sodium Acetate 50 meq/ Potassium Acetate 90 meq/ Potassium Phosphate 20 mmol/ Magnesium Sulfate 15 meq/Calcium Gluconate 5 meq/ Multivitamins 10 ml/Chromium/ Copper/Manganese/ Seleni/Zn 1 ml/ Total Parenteral Nutrition/Amino Acids/Dextrose/ Fat Emulsion Intravenous 1,512 ml @ 63 mls/hr TPN CONT IV Last administered on 05/14/17 23:09; Start 05/14/17 at 22 :00; Stop 05/15/17 at 21:59; Status DC Sodium Chloride 60 meq/Sodium Acetate 50 meq/ Potassium Acetate 90 meq/ Potassium Phosphate 20 mmol/ Magnesium Sulfate 15 meq/Calcium Gluconate 5 meq/ Multivitamins 10 ml/Chromium/ Copper/Manganese/ Seleni/Zn 1 ml/ Total Parenteral Nutrition/Amino Acids/Dextrose/ Fat Emulsion Intravenous 1,512 ml @ 63 mls/hr TPN CONT IV Last administered on 05/15/17 20:28; Start 05/15/17 at 22 :00; Stop 05/16/17 at 21:59; Status DC Sodium Chloride 60 meq/Sodium Acetate 50 meq/ Potassium Acetate 90 meq/ Potassium Phosphate 20 mmol/ Magnesium Sulfate 15 meq/Calcium Gluconate 5 meq/ Multivitamins 10 ml/Chromium/ Copper/Manganese/ Seleni/Zn 1 ml/ Total Parenteral Nutrition/Amino Acids/Dextrose/ Fat Emulsion Intravenous 1,512 ml @ 63 mls/hr TPN CONT IV Last administered on 05/16/17 21:29; Start 05/16/17 at 22 :00; Stop 05/17/17 at 21:59; Status DC Hydromorphone HCl (Dilaudid) 0.2 mg PRN Q1HR PRN IVP PAIN Last administered on 05/18/17 04:14; Start 05/17/17 at 11:00 Sodium Chloride 60 meq/Sodium Acetate 50 meq/ Potassium Acetate 90 meq/ Potassium Phosphate 20 mmol/ Magnesium Sulfate 15 meq/Calcium Gluconate 5 meq/ Multivitamins 10 ml/Chromium/ Copper/Manganese/ Seleni/Zn 1 ml/ Total Parenteral Nutrition/Amino Acids/Dextrose/ Fat Emulsion Intravenous 1,512 ml @ 63 mls/hr TPN CONT IV Last administered on 05/17/17 20:28; Start 05/17/17 at 22 :00; Stop 05/18/17 at 21:59 Active Scripts Active Reported Melatonin 3 Mg Tablet 1 Tab PO QHS Move Free Joint Health Tablet (Glucosam/Chond/Hyalu/Cf Borate) 1 Each Tablet 1 Each PO DAILY Digoxin 125 Mcg Tablet 1 Tab PO DAILY Prednisone 10 Mg Tablet 10 Mg PO DAILY Vitals/I & O Vital Sign - Last 24 Hours 05/17/17 05/17/17 05/17/17 05/17/17 08:55 08:56 09:00 09:40 Pulse 76 78 Resp 18 21 B/P (MAP) 87/63 83/57 (66) Pulse Ox 100 100 100 O2 Delivery Ventilator Ventilator Ventilator 05/17/17 05/17/17 05/17/17 05/17/17 10:00 11:00 11:01 11:23 Pulse 82 88 Resp 26 29 25 B/P (MAP) 105/74 (84) 93/59 (70) Pulse Ox 100 100 99 99 O2 Delivery Ventilator Ventilator Ventilator Ventilator 05/17/17 05/17/17 05/17/17 05/17/17 12:00 12:00 12:25 13:00 Temp 97.9 97.9 Pulse 90 90 Resp 28 24 25 B/P (MAP) 133/72 (92) 93/59 (70) Pulse Ox 99 100 100 O2 Delivery Ventilator Mechanical Ventilator Ventilator Ventilator 05/17/17 05/17/17 05/17/17 05/17/17 14:00 14:00 14:38 15:00 Pulse 86 82 Resp 25 26 20 B/P (MAP) 98/67 (77) 101/56 (71) Pulse Ox 100 100 100 100 O2 Delivery Ventilator Ventilator Ventilator Ventilator 05/17/17 05/17/17 05/17/17 05/17/17 15:27 16:00 16:00 17:00 Temp 98.2 98.2 Pulse 80 84 Resp 21 26 B/P (MAP) 97/60 (72) 118/74 (89) Pulse Ox 100 100 100 O2 Delivery Ventilator Mechanical Ventilator Ventilator Ventilator 05/17/17 05/17/17 05/17/17 05/17/17 17:00 17:24 18:00 19:00 Temp 98.5 98.5 Pulse 80 78 Resp 25 21 20 B/P (MAP) 80/55 (63) 107/63 (78) Pulse Ox 100 99 100 100 O2 Delivery Ventilator Ventilator Ventilator trach/vent 05/17/17 05/17/17 05/17/17 05/17/17 19:37 19:44 20:00 20:00 Pulse 84 Resp 21 23 B/P (MAP) 104/67 (79) Pulse Ox 100 99 100 O2 Delivery Ventilator trach/vent Mechanical Ventilator 05/17/17 05/17/17 05/17/17 05/17/17 21:00 22:00 23:00 23:12 Temp 98.9 98.9 Pulse 76 79 87 Resp 23 23 20 B/P (MAP) 93/64 (74) 83/61 (68) 97/60 (72) Pulse Ox 100 100 100 100 O2 Delivery trach/vent trach/vent trach/vent Ventilator 7/10/05/18/17 05/18/17 05/18/17 00:00 00:00 00:11 01:00 Pulse 87 87 Resp 20 22 B/P (MAP) 101/64 (76) 90/52 (65) Pulse Ox 100 100 100 O2 Delivery Mechanical Ventilator trach/vent TRACH/VENT 05/18/17 05/18/17 05/18/17 05/18/17 01:40 02:00 03:00 03:46 Temp 98.7 98.7 Pulse 97 89 Resp 22 22 B/P (MAP) 99/57 (71) 87/59 (68) Pulse Ox 100 100 100 100 O2 Delivery Ventilator TRACH/VENT Ventilator 05/18/17 05/18/17 05/18/17 05/18/17 04:00 04:00 04:14 04:44 Pulse 88 Resp 21 23 B/P (MAP) 118/80 (93) Pulse Ox 100 98 100 O2 Delivery TRACH/VENT Mechanical Ventilator trach/vent O2 Flow Rate 3.0 3.0 05/18/17 05/18/17 05/18/17 05/18/17 05:00 05:32 06:00 07:37 Pulse 88 88 Resp 21 23 B/P (MAP) 118/80 (93) 92/64 (73) Pulse Ox 100 100 100 100 O2 Delivery TRACH/VENT Ventilator TRACH/VENT Ventilator 05/18/17 05/18/17 07:45 08:15 Resp 30 22 Pulse Ox 100 100 O2 Delivery Ventilator Ventilator O2 Flow Rate 3.0 3.0 Intake and Output 05/17/17 05/17/17 05/18/17 15:00 23:00 07:00 Intake Total 100 ml 1205.76 ml 922.74 ml Output Total 250 ml 1095 ml 1073 ml Balance -150 ml 110.76 ml -150.26 ml MOISES MILLIGAN MD May 18, 2017 08:56
[2017-05-18] MEDS: DIGOXIN IV 500 MCG/2 ML AMPUL. IV SCH (08:57)
[2017-05-18] MEDS ORDERED: HYDROcodon/APAP 7.5/325MG ORAL 15 ML SOLUTION NG PRN (10:15)
--- NOTE | 2017-05-18 11:36 | PDOC ---
PULMONARY PROGRESS NOTES Subjective ON AC MODE AWAKE Vitals Vital Signs Date Time Temp Pulse Resp B/P (MAP) Pulse Ox O2 Delivery O2 Flow Rate FiO2 05/18/17 11:17 100 Ventilator 05/18/17 10:55 24 3.0 05/18/17 08:57 96 90/65 05/18/17 03:00 98.7 98.7 General: Alert, No acute distress Lungs: Clear Cardiovascular: S1 Abdomen: Other (drains in place) Extremities: Other (1+edema) Skin: Warm Labs Laboratory Tests Test 05/17/17 06:00 05/18/17 05:55 White Blood Count 11.8 x10^3/uL (4.0-11.0) 12.6 x10^3/uL (4.0-11.0) Red Blood Count 3.04 x10^6/uL (4.30-5.70) 3.01 x10^6/uL (4.30-5.70) Hemoglobin 9.8 g/dL (13.0-17.5) 9.5 g/dL (13.0-17.5) Hematocrit 28.8 % (39.0-53.0) 28.8 % (39.0-53.0) Mean Corpuscular Volume 95 fL (79-100) 96 fL (79-100) Mean Corpuscular Hemoglobin 32 pg (25-35) 32 pg (25-35) Mean Corpuscular Hemoglobin Concent 34 g/dL (31-37) 33 g/dL (31-37) Red Cell Distribution Width 16.0 % (11.5-14.5) 16.4 % (11.5-14.5) Platelet Count 455 x10^3/uL (140-400) 431 x10^3/uL (140-400) Neutrophils (%) (Auto) 72 % (31-73) 69 % (31-73) Lymphocytes (%) (Auto) 14 % (24-48) 16 % (24-48) Monocytes (%) (Auto) 12 % (0-9) 13 % (0-9) Eosinophils (%) (Auto) 1 % (0-3) 2 % (0-3) Basophils (%) (Auto) 1 % (0-3) 1 % (0-3) Neutrophils # (Auto) 8.4 x10^3uL (1.8-7.7) 8.7 x10^3uL (1.8-7.7) Lymphocytes # (Auto) 1.7 x10^3/uL (1.0-4.8) 2.0 x10^3/uL (1.0-4.8) Monocytes # (Auto) 1.4 x10^3/uL (0.0-1.1) 1.6 x10^3/uL (0.0-1.1) Eosinophils # (Auto) 0.1 x10^3/uL (0.0-0.7) 0.2 x10^3/uL (0.0-0.7) Basophils # (Auto) 0.1 x10^3/uL (0.0-0.2) 0.1 x10^3/uL (0.0-0.2) Sodium Level 135 mmol/L (136-145) 132 mmol/L (136-145) Potassium Level 4.4 mmol/L (3.5-5.1) 4.7 mmol/L (3.5-5.1) Chloride Level 101 mmol/L (98-107) 97 mmol/L (98-107) Carbon Dioxide Level 29 mmol/L (21-32) 29 mmol/L (21-32) Anion Gap 5 (6-14) 6 (6-14) Blood Urea Nitrogen 15 mg/dL (8-26) 15 mg/dL (8-26) Creatinine 0.7 mg/dL (0.7-1.3) 0.7 mg/dL (0.7-1.3) Estimated GFR (Cockcroft-Gault) 111.2 111.2 Glucose Level 105 mg/dL (70-99) 101 mg/dL (70-99) Calcium Level 7.9 mg/dL (8.5-10.1) 8.5 mg/dL (8.5-10.1) Phosphorus Level 4.2 mg/dL (2.6-4.7) Magnesium Level 1.9 mg/dL (1.8-2.4) Triglycerides Level 112 mg/dL (0-150) Laboratory Tests Test 05/18/17 05:55 White Blood Count 12.6 x10^3/uL (4.0-11.0) Red Blood Count 3.01 x10^6/uL (4.30-5.70) Hemoglobin 9.5 g/dL (13.0-17.5) Hematocrit 28.8 % (39.0-53.0) Mean Corpuscular Volume 96 fL (79-100) Mean Corpuscular Hemoglobin 32 pg (25-35) Mean Corpuscular Hemoglobin Concent 33 g/dL (31-37) Red Cell Distribution Width 16.4 % (11.5-14.5) Platelet Count 431 x10^3/uL (140-400) Neutrophils (%) (Auto) 69 % (31-73) Lymphocytes (%) (Auto) 16 % (24-48) Monocytes (%) (Auto) 13 % (0-9) Eosinophils (%) (Auto) 2 % (0-3) Basophils (%) (Auto) 1 % (0-3) Neutrophils # (Auto) 8.7 x10^3uL (1.8-7.7) Lymphocytes # (Auto) 2.0 x10^3/uL (1.0-4.8) Monocytes # (Auto) 1.6 x10^3/uL (0.0-1.1) Eosinophils # (Auto) 0.2 x10^3/uL (0.0-0.7) Basophils # (Auto) 0.1 x10^3/uL (0.0-0.2) Sodium Level 132 mmol/L (136-145) Potassium Level 4.7 mmol/L (3.5-5.1) Chloride Level 97 mmol/L (98-107) Carbon Dioxide Level 29 mmol/L (21-32) Anion Gap 6 (6-14) Blood Urea Nitrogen 15 mg/dL (8-26) Creatinine 0.7 mg/dL (0.7-1.3) Estimated GFR (Cockcroft-Gault) 111.2 Glucose Level 101 mg/dL (70-99) Calcium Level 8.5 mg/dL (8.5-10.1) Triglycerides Level 112 mg/dL (0-150) Medications Active Scripts Medications Dose Route/Sig Max Daily Dose Days Date Category Melatonin 3 Mg Tablet 1 Tab PO QHS 04/22/17 Reported Move Free Joint Health Tablet (Glucosam/Chond/Hyalu/Cf Borate) 1 Each Tablet 1 Each PO DAILY 04/22/17 Reported Digoxin 125 Mcg Tablet 1 Tab PO DAILY 04/22/17 Reported Prednisone 10 Mg Tablet 10 Mg PO DAILY 04/22/17 Reported Comments CXR REVIEWED 1. Interval insertion of a tracheostomy tube in satisfactory position. 2. No other significant interval change since yesterday's study. Impression . 1. Acute respiratory failure, expected post -op s/p trach 2. septic shock, resolved. 3. Metabolic acidosis/ lactic acidosis, improved 4. chronic A-Fib 5. Crohn's Dx, who has h/o perforated viscous and underwent lap with resection . Cults + for H para/Clostridium Ramsom/Bacteroides/Strep bovis. D/cd home with Augmentin. Presented electively for an extended right colon resection with ileocolotomy 04/29. Taken back to OR ruptured ileo-colic anastomosis, fecal impaction s/p rigid procto, disimpaction, ex lap, resection of ileo-colic anastomosis, end ileostomy, Evans's pouch, 6. Toxic and metabolic encephalopathy 7. Abnormal CXR Plan . WILL START WEANING / CPAP TRIALS TOLERATED AC MODE QHS SPOKE WITH [facility] THIS WEEK CXR REVIEWED ANTIBX PER ID D/W KEVIN ARCE MD May 18, 2017 11:36
--- NOTE | 2017-05-18 11:41 | RAD ---
Portable abdomen, 05/18/2017: History: Check NG tube placement A NG tube is in place extending into the distal body of the stomach. Two tubes overlying the pelvis are presumably surgical drains. Markers from a surgical mesh are again noted overlying the lower pelvis. Gas is present in large and small bowel in a nonspecific pattern. There is no evidence organomegaly. IMPRESSION: 1. The NG tube extends into the distal body of the stomach. 2. No acute abdominal abnormality is detected.
[2017-05-18] MEDS: CHLORHEXIDINE 0.12% 15 ML MOUTHWASH. SWSP SCH (13:23)
[2017-05-18] MEDS: TPN PER PHARMACY MC PRN ×2 (13:38→13:56)
[2017-05-18] MEDS ORDERED: HYDR15SO4 NG (15:18)
[2017-05-18] MEDS ORDERED: Nicotine 14MG TD (15:18)
[2017-05-18] MEDS ORDERED: HYDR2VIA2 IVP (15:18)
[2017-05-18] MEDS: MICAFUNGIN 100 MG in IV DEXTROSE 5% 100 ML IV SCH (15:37)
[2017-05-18] MEDS ORDERED: [UNRECOGNIZED DRUG - OTHER] IV SCH ×11 (22:00)
[2017-05-18] MEDS ORDERED: DEXTROSE 70% IV SCH ×11 (22:00)
[2017-05-18] MEDS ORDERED: AMINO ACIDS IV SCH ×11 (22:00)
[2017-05-18] MEDS ORDERED: TOTAL PARENTERAL NUTRITION IV SCH ×11 (22:00)
--- NOTE | 2017-05-19 15:19 | PDOC4 ---
Operative Note Operative Note Date of surgery May 05, 2017 Preoperative diagnosis: Sepsis Postop diagnosis: Same secondary to disrupted ileocolic anastomosis with pelvic abscess Procedure: Exploratory laparotomy, ileocolic resection, end ileostomy, Apiz' s pouch Surgeon: Jose Bray.: Mindi ONTIVEROS Anesthesia: Gen. endotracheal IV fluids 2500 mL EBL: 150 mL Indications: David is 5 days postop takedown of his end colostomy with ileocolic anastomosis. He has become septic and CT suggest pelvic abscess. Is brought for exploration Operative findings: The ileal colic anastomosis had failed with development of a pelvic abscess Operative report: Patient brought to the operating suite and given a general endotracheal anesthetic. Wagner catheter was placed. Abdomen prepped and draped in usual sterile fashion. Previous midline incision was opened. Abdomen entered. Pelvic abscess was evacuated and the cavity cultured. The small bowel proximal to the failed anastomosis was skeletonized and divided with a CASSANDRA stapler. The colon distal to the failed anastomosis was skeletonized and divided with a contour stapler allowing removal of the previous anastomosis. The abdomen and pelvis were then copiously irrigated with 4 L of normal saline. The distal ileum was brought up through a right lower quadrant abdominal opening to create an end ileostomy. This was matured with 3-0 chromic sutures. A 19 Vietnamese round Luis Eduardo drain was left in the pelvis for postoperative drainage. When a correct sponge count was obtained and hemostasis was present the midline incision was closed in running fashion using looped 0 PDS tied in the middle. Skin was closed loosely with interrupted vertical mattress stitches of 3-0 nylon. Sterile dressing applied. Postop foreign-body film was negative for unexplained foreign-body. Patient was transported from the operating suite back to his ICU room intubated. RON GROSS MD May 19, 2017 15:19
== END 2017-05-18 17:00 | DRG 3 ==
LOC: OPSVCIP 09:36 → 4 NORTH 18:34 → 2 SOUTH 05-04 20:46 → 1 WEST ICU 05-05 14:54
PROVIDERS: ADMIT Surgery; ATTEND Surgery
PROC: 0DNE0ZZ Release Large Intestine, Open Approach (ICD-10-PCS; 2017-04-29)
PROC: 0WUF0JZ Supplement Abdominal Wall with Synthetic Substitute, Open Approach (ICD-10-PCS; 2017-04-29)
PROC: 0DTF0ZZ Resection of Right Large Intestine, Open Approach (ICD-10-PCS; principal; 2017-04-29 11:30)
PROC: 5A1955Z Respiratory Ventilation, Greater than 96 Consecutive Hours (ICD-10-PCS; 2017-05-05)
PROC: 0BH17EZ Insertion of Endotracheal Airway into Trachea, Via Natural or Artificial Opening (ICD-10-PCS; 2017-05-05)
PROC: 0D1B0Z4 Bypass Ileum to Cutaneous, Open Approach (ICD-10-PCS; 2017-05-05)
PROC: 3E0336Z Introduction of Nutritional Substance into Peripheral Vein, Percutaneous Approach (ICD-10-PCS; 2017-05-05)
PROC: 02HV33Z Insertion of Infusion Device into Superior Vena Cava, Percutaneous Approach (ICD-10-PCS; 2017-05-05)
PROC: 0FT44ZZ Resection of Gallbladder, Percutaneous Endoscopic Approach (ICD-10-PCS; 2017-05-12)
PROC: BF101ZZ Fluoroscopy of Bile Ducts using Low Osmolar Contrast (ICD-10-PCS; 2017-05-12)
PROC: 0B110F4 Bypass Trachea to Cutaneous with Tracheostomy Device, Open Approach (ICD-10-PCS; 2017-05-14)
DX: K43.2 Incisional hernia without obstruction or gangrene (principal); G92 Toxic encephalopathy; K65.1 Peritoneal abscess; R65.21 Severe sepsis with septic shock; J96.00 Acute respiratory failure, unspecified whether with hypoxia or hypercapnia; A41.9 Sepsis, unspecified organism; K50.90 Crohn's disease, unspecified, without complications; E44.0 Moderate protein-calorie malnutrition; D68.9 Coagulation defect, unspecified; E87.1 Hypo-osmolality and hyponatremia; I50.30 Unspecified diastolic (congestive) heart failure; B37.89 Other sites of candidiasis; L03.311 Cellulitis of abdominal wall; D69.6 Thrombocytopenia, unspecified; E78.5 Hyperlipidemia, unspecified; E87.6 Hypokalemia; F17.210 Nicotine dependence, cigarettes, uncomplicated; H91.91 Unspecified hearing loss, right ear; I11.0 Hypertensive heart disease with heart failure; I48.2 Chronic atrial fibrillation; J44.9 Chronic obstructive pulmonary disease, unspecified; K66.0 Peritoneal adhesions (postprocedural) (postinfection); F41.9 Anxiety disorder, unspecified; M19.90 Unspecified osteoarthritis, unspecified site; T42.75XA Adverse effect of unspecified antiepileptic and sedative-hypnotic drugs, initial encounter; J02.9 Acute pharyngitis, unspecified; F10.20 Alcohol dependence, uncomplicated; Y92.89 Other specified places as the place of occurrence of the external cause; Z93.3 Colostomy status; Z79.52 Long term (current) use of systemic steroids; Z87.442 Personal history of urinary calculi; Z87.01 Personal history of pneumonia (recurrent); Z86.19 Personal history of other infectious and parasitic diseases; Z86.73 Personal history of transient ischemic attack (TIA), and cerebral infarction without residual deficits; Z80.8 Family history of malignant neoplasm of other organs or systems
CPT/HCPCS: 36415; 36569; 36600; 70450; 71010; 74000; 74020; 74177; 80048; 80053; 80162; 80202; 81001; 82040; 82805; 82962; 83605; 83735; 84100; 84132; 84478; 85007; 85027; 85610; 86850; 86900; 86901; 87040; 87071; 87075; 87186; 87205; 87641; 88307; 93005; 94003; 95816; A6539; C1781; C9113; J0282; J0330; J0610; J0694; J0696; J1100; J1160; J1170; J1200; J1650; J1720; J2001; J2020; J2248; J2250; J2270; J2370; J2405; J2543; J2704; J2710; J2920; J2997; J3010; J3370; J3475; J3480; J3490; J7030; J7040; J7050; J7060; J7120; P9045; P9046; Q9967; S0028; 97110; 97116; 97530; 97535

== ENCOUNTER 2017-06-23 22:13 | Emergency (ER) | payer MEDICARE ==
[~2017-06-23] VITALS: Ht 185.4 cm; Wt 63.0 kg
[~2017-06-23 22:13] MED LIST changes: +HYDR15SO4 NG; +HYDR2VIA2 IVP; -HYDROmorphone 2 MG/ML VIAL IV PRN; -IV RINGERS,LACTATED 1000ML 1,000 ML IV SCH; -LIDOCAINE 1% 1 ML SYRINGE. ID PRN; -MORPHINE SULFATE 2 MG/ML DISP.SYRIN. IV PRN; +Nicotine 14MG TD; -ONDANSETRON PF 4 MG/2 ML VIAL. IV PRN; -PROCHLORPERAZINE 10 MG/2 ML VIAL. IV PRN; -fentaNYL PF VIAL 100 MCG/2 ML VIAL IV PRN
[2017-06-23 22:30] VITALS: BP 111/59
[2017-06-23] MEDS ORDERED: IV NORMAL SALINE 1000ML BAG 1,000 ML IV ONE (23:00)
[2017-06-23] MEDS ORDERED: VITS A & D/LANOLIN TOPICAL OINTMENT 56GM TUBE. TP ONE (23:45)
--- NOTE | 2017-06-23 23:55 | PHYS DOC ---
Past Medical History Past Medical History: Kidney Stone, Pneumonia, Other Additional Past Medical Histor: CROHNS, LOW BP Past Surgical History: Other Additional Past Surgical Histo: COLOSTOMY, BOWEL RESECTION, ILLEOSTOMY Alcohol Use: Occasionally Drug Use: Marijuana Adult General Chief Complaint Chief Complaint: OTHER COMPLAINTS HPI HPI Patient is a 71 year old male who presents with complaint of leaking from his ileostomy site. The patient recently underwent surgery for reversal of colostomy [address] Garcia. The patient suffered complications of infection as a result of failure of the reanastomosis which resulted in a colectomy with right-sided ileostomy. The patient was admitted to a longterm facility for continued care and was recently released within the last 2 days. The patient states that over the past few days he has had increased output from his ileostomy which has caused significant leakage as well as lightheadedness and generalized weakness. Patient notes that he has had increasing pain at his ileostomy site due to excoriation of skin. The patient spoke with Dr. Garcia who advised patient to come to the emergency department for evaluation. The patient's states that she has been trying to replace the ileostomy bags, however due to the excoriated skin they have not been able to see a properly and patient has had worsening drainage at the site which is irritating his excoriated skin. Patient states that the pain is 8 out of 10 at the site due to the damage skin. Patient denies any fevers. The patient states that he has been able to drink water which has helped somewhat with his lightheadedness symptoms. Patient denies any abdominal pain at this time. Review of Systems Review of Systems Constitutional: Lightheadedness, denies fever or chills [] Eyes: Denies change in visual acuity, redness, or eye pain [] HENT: Denies nasal congestion or sore throat [] Respiratory: Denies cough or shortness of breath [] Cardiovascular: Denies chest pain or edema [] GI: Pain at ileostomy site, denies nausea, vomiting, bloody stools or diarrhea [ ] : Denies dysuria or hematuria [] Musculoskeletal: Denies back pain or joint pain [] Integument: Denies rash or skin lesions [] Neurologic: Denies headache, focal weakness or sensory changes [] Current Medications Current Medications Current Medications Medications (Trade) Dose Ordered Sig/Ofelia Start Time Stop Time Status Last Admin Dose Admin Sodium Chloride 1,000 ml @ 1,000 mls/hr 1X ONCE 06/23/17 23:00 06/23/17 23:59 DC 06/23/17 23:00 1,000 MLS/HR Vitamin A/Vitamin D (Vitamin A & D Ointment) 1 emelia 1X ONCE 06/23/17 23:45 06/23/17 23:46 DC Allergies Allergies Allergies Coded Allergies Type Severity Reaction Last Updated Verified No Known Drug Allergies 04/29/17 No Physical Exam Physical Exam Constitutional: Well developed, well nourished, no acute distress, non-toxic appearance. [] HENT: Normocephalic, atraumatic, bilateral external ears normal, oropharynx moist, no oral exudates, nose normal. [] Eyes: PERRLA, EOMI, conjunctiva normal, no discharge. [] Neck: Normal range of motion, no tenderness, supple, no stridor. [] Cardiovascular:Heart rate regular rhythm, no murmur [] Lungs & Thorax: Bilateral breath sounds clear to auscultation [] Abdomen: Bowel sounds normal, soft, no tenderness, no masses, no pulsatile masses. [] Skin: Warm, dry, no erythema, no rash. [] Back: No tenderness, no CVA tenderness. [] Extremities: No tenderness, no cyanosis, no clubbing, ROM intact, no edema. [] Neurologic: Alert and oriented X 3, normal motor function, normal sensory function, no focal deficits noted. [] Current Patient Data Vital Signs Vital Signs Date Time Temp Pulse Resp B/P (MAP) Pulse Ox O2 Delivery O2 Flow Rate FiO2 06/23/17 22:30 97.9 87 18 100 Room Air 97.9 Lab Values I-STAT metabolic panel reviewed, notable lab values were BUN 24, creatinine 1.0 , potassium 4.8 EKG EKG Not performed [] Radiology/Procedures Radiology/Procedures Not performed [] Course & Med Decision Making Course & Med Decision Making Pertinent Labs and Imaging studies reviewed. (See chart for details) Patient was given IV fluids and patient's ostomy site was treated with barrier ointment, Telfa, and foam tape to improve seal. The patient is scheduled to follow-up with Dr. Garcia in the morning. I spoke with Dr. Garcia over the phone regarding plan of care and he was in agreement and stated he would have an care nurse help evaluate the ostomy site at the appointment in the morning. Advised return emergency department for any worsening symptoms. Patient and patient's voiced understanding and in agreement with treatment plan. Dragon Disclaimer Dragon Disclaimer This electronic medical record was generated, in whole or in part, using a voice recognition dictation system. Departure Departure Impression: Primary Impression: Complication of ostomy Disposition: HOME, SELF-CARE Condition: IMPROVED Referrals: RYAN STEVENS (PCP) Patient Instructions: Ileostomy Surgery, Care After Additional Instructions: Follow-up with Dr. Garcia tomorrow as scheduled. Return to the emergency department for any worsening symptoms. DG COYLE MD Jun 23, 2017 23:55
== END 2017-06-24 00:10 | disposition home or self-care (01) ==
LOC: ER 22:13
DX: T83.038A Leakage of other urinary catheter, initial encounter (principal); K50.90 Crohn's disease, unspecified, without complications; Z87.442 Personal history of urinary calculi; Z90.89 Acquired absence of other organs; Z87.01 Personal history of pneumonia (recurrent); Y92.89 Other specified places as the place of occurrence of the external cause
CPT/HCPCS: 96360; 99284; J7030

== ENCOUNTER → 2017-09-03 | Outpatient (CLI) | payer MEDICARE ==
[~2017-09-03] MED LIST changes: +APIX5TAB PO; +CONTRAST GIVEN MC PRN; +IOHEXOL 300 MG/ML 75 ML VIAL IV ONE; +LIDOCAINE 1% / SOD BICARB 8.4% 20 ML VIAL. IJ ONE; +LOPE2CAP3 PO; +METO25TA4 PO
[2017-09-03 12:23] LABS: CALCIUM 10.1 mg/dL (8.5-10.1); CREATININE 0.9 mg/dL (0.7-1.3); GFR 82.9; POTASSIUM 4.7 mmol/L (3.5-5.1)
--- NOTE | 2017-09-03 14:00 | RAD ---
CT of the abdomen and pelvis with contrast, 09/03/2017: History: Right lower quadrant pain after ileostomy Multidetector CT imaging was performed following an IV bolus injection of iodinated contrast material. Comparison is made to a study from 05/27/2017. There is mild bibasilar linear atelectasis and/or scarring, improved since the previous study. No hepatic abnormality is detected. The gallbladder is unremarkable. No pancreatic abnormality is seen. The spleen is of normal size. The kidneys show no evidence of obstruction. There is moderate aortoiliac calcific plaquing. No abdominal or pelvic adenopathy is seen. There has been a previous ileostomy. There is a fluid collection in the anterior abdominal wall on the right, just inferior to the ileostomy site. It contains gas bubbles. This lies at the site where a superficial wound was present on the previous study. It extends inferiorly to the upper aspect of the right inguinal canal. It measures approximately 3.1 x 4.8 cm on axial image #60 of series #2. An abscess is suspected. Within the anterior aspect of the upper pelvis there is an additional fluid collection with apparent enhancing briones. It contains air bubbles. It measures approximately 3.5 x 4.5 cm on axial image 58 of series #2. It lies near the abdominal wall fluid collection but does not demonstrate a definite connection. It does not have the appearance of an unopacified bowel loop. The bowel loops are not dilated. No free air is seen in the abdomen or pelvis. IMPRESSION: 1. Fluid collection containing air bubbles in the anterior abdominal wall just inferior to the ileostomy site suggesting abscess. 2. Additional probable abscess in the anterior aspect of the mid to lower pelvis. Note: The findings were discussed with Dr. Garcia at 1:55 PM on 09/03/2017. PQRS Compliance Statement: One or more of the following individualized dose reduction techniques were utilized for this examination: 1. Automated exposure control 2. Adjustment of the mA and/or kV according to patient size 3. Use of iterative reconstruction technique
== END | disposition home or self-care (01) ==
LOC: CT 11:52
PROVIDERS: ATTEND Surgery
DX: R10.31 Right lower quadrant pain (principal); Z93.2 Ileostomy status
CPT/HCPCS: 36415; 74177; 80048; Q9967

== ENCOUNTER 2017-09-14 05:57 | Inpatient (IN) | payer MEDICARE ==
[2017-09-14] VITALS (11 sets, daily range): BP systolic 90–109; BP diastolic 60–76
[~2017-09-14] VITALS: Ht 185.4 cm; Wt 65.3 kg
[~2017-09-14 05:57] MED LIST changes: -CONTRAST GIVEN MC PRN; -IOHEXOL 300 MG/ML 75 ML VIAL IV ONE; -LIDOCAINE 1% / SOD BICARB 8.4% 20 ML VIAL. IJ ONE
[2017-09-14] MEDS ORDERED: IV NORMAL SALINE 1000ML BAG 1,000 ML IV ONE (09:15)
[2017-09-14 09:36] LABS: BASO # 0.1 x10^3/uL (0.0-0.2); BASO % 1 % (0-3); EOS % 1 % (0-3); HEMATOCRIT 43.1 % (39.0-53.0); HEMOGLOBIN 14.1 g/dL (13.0-17.5); LYMPH # 3.6 x10^3/uL (1.0-4.8); LYMPH % 25 % (24-48); MEAN CORPUSCULAR HEMOGLOBIN 31 pg (25-35); MEAN CORPUSCULAR HGB CONC 33 g/dL (31-37); MEAN CORPUSCULAR VOLUME 96 fL (79-100); MONO % 9 % (0-9); NEUT % 65 % (31-73); PLATELET COUNT 265 x10^3/uL (140-400); RED CELL DISTRIBUTION WIDTH 16.6 % (11.5-14.5); WHITE BLOOD COUNT 14.7 x10^3/uL (4.0-11.0)
[2017-09-14 09:43] LABS: CALCIUM 9.9 mg/dL (8.5-10.1); CREATININE 0.8 mg/dL (0.7-1.3); POTASSIUM 4.6 mmol/L (3.5-5.1)
[2017-09-14 09:48] LABS: INR 1.1 (0.8-1.1); PROTHROMBIN TIME PATIENT 13.3 SEC (11.7-14.0)
--- NOTE | 2017-09-14 10:57 | PDOC1 ---
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 He has had a subtotal colectomy for Crohn's colitis with perforation initially, and a subsequent failed ileocolic anastomosis. 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 Scans showed a pelvic abscess associated with previously placed permanent mesh. He comes in today for follow up CT scan and possible drainage of the abscess. He did develop spontaneous drainage from the lower abdomen over the weekend with some relief of his pain. Past Medical History Cardiovascular: AFIB, CHF, HTN Pulmonary: COPD CENTRAL NERVOUS SYSTEM: Other GI: Other Heme/Onc: No pertinent hx Hepatobiliary: No pertinent hx Psych: Anxiety, Addictions Musculoskeletal: Osteoarthritis Rheumatologic: No pertinent hx Infectious disease: No pertinent hx Renal/: Other Endocrine: No pertinent hx Past Surgical History Past Surgical History: Hernia Repair, Colectomy, Colon Resection, Other Family History Family History: Cancer Social History Smoke: <1 pack per day ALCOHOL: occassional Drugs: None Current Medications Current Medications Current Medications Sodium Chloride 1,000 ml @ 100 mls/hr 1X ONCE IV ; Start 09/14/17 at 09:15; Stop 09/14/17 at 19:14 Active Scripts Active [Nicotine 14MG] 1 PATCH Patch 1 Patch TD PRN DAILY PRN 15 Days decrese to 7mg patch after 2 weeks Hydromorphone Hcl 2 Mg/1 Ml Vial 0.2 Mg IVP PRN Q1HR PRN 10 Days Hydrocodone-Apap 7.5-325/15 Soln (Hydrocodone Bit/Acetaminophen) 15 Ml Solution 15 Ml NG PRN Q4HRS PRN 30 Days Reported Eliquis (Apixaban) 5 Mg Tablet 5 Mg PO Anti-Diarrheal (Loperamide Hcl) 2 Mg Capsule 4 Mg PO BID Metoprolol Tartrate 25 Mg Tablet 0.5 Tab PO BID Melatonin 3 Mg Tablet 1 Tab PO QHS Move Free Joint Health Tablet (Glucosam/Chond/Hyalu/Cf Borate) 1 Each Tablet 1 Each PO DAILY Digoxin 125 Mcg Tablet 1 Tab PO DAILY Prednisone 10 Mg Tablet 10 Mg PO DAILY Allergies Allergies: Coded Allergies: No Known Drug Allergies (Unverified , 6/21/17) ROS Review of System negative with exception of previous complaints Physical Exam General: Alert, Oriented X3, Cooperative, No acute distress HEENT: Atraumatic Lungs: Other (scattered ronchi) Heart: RRR Abdomen: Other (RLQ stoma with liquid output, some erythema in the right groin and midline, small opening with purulent drainage) Vitals Vitals Vital Signs Date Time Temp Pulse Resp B/P (MAP) Pulse Ox O2 Delivery O2 Flow Rate FiO2 09/14/17 07:00 97.5 86 18 90/60 (70) 99 Room Air 97.5 Labs Labs Laboratory Tests Test 09/14/17 09:25 White Blood Count 14.7 x10^3/uL (4.0-11.0) Red Blood Count 4.50 x10^6/uL (4.30-5.70) Hemoglobin 14.1 g/dL (13.0-17.5) Hematocrit 43.1 % (39.0-53.0) Mean Corpuscular Volume 96 fL (79-100) Mean Corpuscular Hemoglobin 31 pg (25-35) Mean Corpuscular Hemoglobin Concent 33 g/dL (31-37) Red Cell Distribution Width 16.6 % (11.5-14.5) Platelet Count 265 x10^3/uL (140-400) Neutrophils (%) (Auto) 65 % (31-73) Lymphocytes (%) (Auto) 25 % (24-48) Monocytes (%) (Auto) 9 % (0-9) Eosinophils (%) (Auto) 1 % (0-3) Basophils (%) (Auto) 1 % (0-3) Neutrophils # (Auto) 9.5 x10^3uL (1.8-7.7) Lymphocytes # (Auto) 3.6 x10^3/uL (1.0-4.8) Monocytes # (Auto) 1.3 x10^3/uL (0.0-1.1) Eosinophils # (Auto) 0.1 x10^3/uL (0.0-0.7) Basophils # (Auto) 0.1 x10^3/uL (0.0-0.2) Prothrombin Time 13.3 SEC (11.7-14.0) Prothromb Time International Ratio 1.1 (0.8-1.1) Sodium Level 141 mmol/L (136-145) Potassium Level 4.6 mmol/L (3.5-5.1) Chloride Level 104 mmol/L (98-107) Carbon Dioxide Level 30 mmol/L (21-32) Anion Gap 7 (6-14) Blood Urea Nitrogen 23 mg/dL (8-26) Creatinine 0.8 mg/dL (0.7-1.3) Estimated GFR (Cockcroft-Gault) 95.0 Glucose Level 95 mg/dL (70-99) Calcium Level 9.9 mg/dL (8.5-10.1) Laboratory Tests Test 09/14/17 09:25 White Blood Count 14.7 x10^3/uL (4.0-11.0) Red Blood Count 4.50 x10^6/uL (4.30-5.70) Hemoglobin 14.1 g/dL (13.0-17.5) Hematocrit 43.1 % (39.0-53.0) Mean Corpuscular Volume 96 fL (79-100) Mean Corpuscular Hemoglobin 31 pg (25-35) Mean Corpuscular Hemoglobin Concent 33 g/dL (31-37) Red Cell Distribution Width 16.6 % (11.5-14.5) Platelet Count 265 x10^3/uL (140-400) Neutrophils (%) (Auto) 65 % (31-73) Lymphocytes (%) (Auto) 25 % (24-48) Monocytes (%) (Auto) 9 % (0-9) Eosinophils (%) (Auto) 1 % (0-3) Basophils (%) (Auto) 1 % (0-3) Neutrophils # (Auto) 9.5 x10^3uL (1.8-7.7) Lymphocytes # (Auto) 3.6 x10^3/uL (1.0-4.8) Monocytes # (Auto) 1.3 x10^3/uL (0.0-1.1) Eosinophils # (Auto) 0.1 x10^3/uL (0.0-0.7) Basophils # (Auto) 0.1 x10^3/uL (0.0-0.2) Prothrombin Time 13.3 SEC (11.7-14.0) Prothromb Time International Ratio 1.1 (0.8-1.1) Sodium Level 141 mmol/L (136-145) Potassium Level 4.6 mmol/L (3.5-5.1) Chloride Level 104 mmol/L (98-107) Carbon Dioxide Level 30 mmol/L (21-32) Anion Gap 7 (6-14) Blood Urea Nitrogen 23 mg/dL (8-26) Creatinine 0.8 mg/dL (0.7-1.3) Estimated GFR (Cockcroft-Gault) 95.0 Glucose Level 95 mg/dL (70-99) Calcium Level 9.9 mg/dL (8.5-10.1) VTE Prophylaxis Ordered VTE Prophylaxis Devices: Yes VTE Pharmacological Prophylaxi: No Assessment/Plan Assessment/Plan s/p subtotal colectomy with end ileostomy 2/2 Crohn's colitis possible ECF 2/2 infected permanent mesh previously placed CT with possible drainage today. RON GROSS MD Sep 14, 2017 10:57
[2017-09-14] MEDS ORDERED: INFLUENZA VAX SCREEN BY RX. MC PRN (12:00)
[2017-09-14] MEDS ORDERED: PNEUMOCOCCAL VAX SCREEN BY RX. MC PRN (12:00)
[2017-09-14] MEDS ORDERED: FLU VACC QS2017-18 (36MOS+)/PF 0.5 ML SYRINGE. VAX IM ONE (13:00)
[2017-09-14] MEDS ORDERED: LIDOCAINE 1% / SOD BICARB 8.4% 20 ML VIAL. IJ ONE ×2 (13:54→14:15)
[2017-09-14] MEDS ORDERED: MIDAZOLAM HCL/PF 2 MG/2 ML VIAL. ONE (14:05)
[2017-09-14] MEDS ORDERED: fentaNYL PF VIAL 100 MCG/2 ML VIAL ONE (14:05)
[2017-09-14] MEDS ORDERED: MIDAZOLAM HCL/PF 2 MG/2 ML VIAL. IV ONE (14:15)
[2017-09-14] MEDS ORDERED: fentaNYL PF VIAL 100 MCG/2 ML VIAL IV ONE (14:15)
[2017-09-14] MEDS ORDERED: IOHEXOL 300 MG/ML 75 ML VIAL IART ONE (14:15)
--- NOTE | 2017-09-14 15:21 | RAD ---
CT-guided drainage of intravenous intra-abdominal abscess 09/14/2017 Discussion: Patient is a 72-year-old male with a persistent intra-abdominal abscess in the right lower quadrant which appears to be associated with a remotely placed hernia mesh. The patient has a history of Crohn's disease with subsequent bowel perforation and multiple complex surgeries. The patient has had previous percutaneous drainage of a superficial abscess in the right lower quadrant abdominal wall, a needle aspiration of this abscess. The superficial abscess has also recurred, to lesser degree than prior. Also on the interim since prior intervention the patient has developed an open wound in the abdominal midline, along the tract of previous midline incision with decompression of what appears to be either the abscess contents or enteric content. The risks and benefits of the procedure were discussed patient. Informed consent was obtained. A timeout procedure was performed. CT imaging with and without contrast was performed to re-evaluate the abscess, given clinical changes since recent scan. Findings were discussed the patient's surgeon. The intra-abdominal abscess right lower quadrant was targeted for drainage. 1% lidocaine without epinephrine was administered to the overlying skin. A 17-gauge needle was advanced into this collection under intermittent CT guidance. An 035 guidewire was advanced into the collection, over which following dilatation, an 8 [place] locking drain was advanced into the collection. This draining sinus was selected as it was felt to be more amenable to passing a small caliber drain possibly through the mesh, which appears to be immediately anterior to the abscess. Purulent aspirate was obtained. This was sent for Gram stain and culture. The more superficial fluid collection was drained by palpation and insertion of a 5 [place] Yueh needle. Follow-up CT imaging confirms essentially total evacuation of the superficial collection. A pressure dressing was placed in the hopes that with drainage of the intraabdominal abscess, and antimicrobial therapy, the superficial abscess, which is believed to communicate with a deep abscess, will not recur. Sterile dressing was applied over the open wound in the abdominal midline. The drain was secured in place. Repeat imaging also confirms significant reduction in size of the intra-abdominal fluid collection. No immediate complications were identified. The patient tolerated this procedure well. His transferred back to the floor in stable condition. The procedure was performed under conscious sedation including continuous cardiopulmonary monitoring via a dedicated sedation nurse. Sedation time was approximately 45 minutes. Impression: 1. CT-guided drainage of intra-abdominal abscess in the right lower quadrant, which is appears to be associated with an surgical mesh. 2. Aspiration of the recurrent subcutaneous abscess and application of a pressure dressing as described 3. New CT finding of a open wound in the abdominal midline, which clinically appears to communicate with the abdominal cavity. 4. Findings may represent persistent abscess however are also concerning for a enterocutaneous fistula
[2017-09-14] MEDS: NICOTINE 21MG PATCH. TD SCH (15:35)
[2017-09-14] MEDS ORDERED: oxyCODONE/APAP 5/325 1 TAB TABLET PO PRN (17:00)
[2017-09-14] MEDS ORDERED: ANTI-COAG MONITOR BY PHARMACY. MC PRN (17:00)
[2017-09-14] MEDS ORDERED: NICOTINE 14 MG TD PRN (17:00)
[2017-09-14] MEDS: predniSONE 10 MG TABLET PO SCH (17:57)
[2017-09-14] MEDS: HYDROcodon/APAP 7.5/325MG ORAL 15 ML SOLUTION NG PRN ×2 (17:57→22:01)
[2017-09-14] MEDS: LOPERAMIDE 2 MG CAPSULE PO SCH (20:50)
[2017-09-14] MEDS: METOPROLOL TART IMMED RELEASE 25 MG TABLET. PO SCH (21:00)
[2017-09-14] MEDS ORDERED: APIXABAN 5 MG TABLET. PO SCH (21:00)
[2017-09-14] MEDS ORDERED: NON FORMULARY ITEM (Melatonin 1 TAB) PO SCH (21:00)
[2017-09-14] MEDS: IV NORMAL SALINE 1000ML BAG 1,000 ML IV SCH (22:00)
[2017-09-14] MEDS: MICAFUNGIN 100 MG in IV DEXTROSE 5% 100 ML IV SCH (23:30)
[2017-09-14] MEDS: VANCOMYCIN PER PHARMACY MC PRN ×2 (23:49→23:55)
[2017-09-15] VITALS (7 sets, daily range): BP systolic 84–100; BP diastolic 54–75
[2017-09-15] MEDS ORDERED: VANCOMYCIN 1.75 GM in IV DEXTROSE 5% 500 ML IV ONE (00:30)
[2017-09-15] MEDS: HYDROcodon/APAP 7.5/325MG ORAL 15 ML SOLUTION NG PRN ×5 (02:24→19:48)
[2017-09-15] MEDS ORDERED: PIPERACILLIN/TAZOBACTAM 3.375 GM in IV DEXTROSE 5% 50 ML IV SCH (06:00)
[2017-09-15] MEDS: PIPERACILLIN/TAZO IV Push 3.375 GM VIAL. IVP SCH ×3 (06:09→22:00)
[2017-09-15] MEDS: APIXABAN 5 MG TABLET. PO SCH ×2 (08:48→21:04)
[2017-09-15] MEDS: LOPERAMIDE 2 MG CAPSULE PO SCH ×2 (08:48→21:04)
[2017-09-15] MEDS: predniSONE 10 MG TABLET PO SCH (08:48)
[2017-09-15] MEDS: METOPROLOL TART IMMED RELEASE 25 MG TABLET. PO SCH ×2 (08:49→21:00)
[2017-09-15] MEDS: NICOTINE 21MG PATCH. TD SCH (08:51)
--- NOTE | 2017-09-15 10:51 | PDOC ---
SURGICAL PROGRESS NOTE Subjective up to chair in good spirits pain controlled main c/o is IV in left wrist Vital Signs Vital Signs Date Time Temp Pulse Resp B/P (MAP) Pulse Ox O2 Delivery O2 Flow Rate FiO2 09/15/17 10:14 96 Room Air 09/15/17 08:49 73 99/75 09/15/17 07:00 97.4 18 97.4 09/14/17 14:48 3.0 PATIENT HAS A YANCEY: No General: Alert, Oriented X3, Cooperative, No acute distress Abdomen: Soft, Other (right side ileostomy with brown stool, open wound in the low midline with minimal drainage, pigtail drain to bulb suction with purulent output) Labs Laboratory Tests Test 09/14/17 09:25 White Blood Count 14.7 x10^3/uL (4.0-11.0) Red Blood Count 4.50 x10^6/uL (4.30-5.70) Hemoglobin 14.1 g/dL (13.0-17.5) Hematocrit 43.1 % (39.0-53.0) Mean Corpuscular Volume 96 fL (79-100) Mean Corpuscular Hemoglobin 31 pg (25-35) Mean Corpuscular Hemoglobin Concent 33 g/dL (31-37) Red Cell Distribution Width 16.6 % (11.5-14.5) Platelet Count 265 x10^3/uL (140-400) Neutrophils (%) (Auto) 65 % (31-73) Lymphocytes (%) (Auto) 25 % (24-48) Monocytes (%) (Auto) 9 % (0-9) Eosinophils (%) (Auto) 1 % (0-3) Basophils (%) (Auto) 1 % (0-3) Neutrophils # (Auto) 9.5 x10^3uL (1.8-7.7) Lymphocytes # (Auto) 3.6 x10^3/uL (1.0-4.8) Monocytes # (Auto) 1.3 x10^3/uL (0.0-1.1) Eosinophils # (Auto) 0.1 x10^3/uL (0.0-0.7) Basophils # (Auto) 0.1 x10^3/uL (0.0-0.2) Prothrombin Time 13.3 SEC (11.7-14.0) Prothromb Time International Ratio 1.1 (0.8-1.1) Sodium Level 141 mmol/L (136-145) Potassium Level 4.6 mmol/L (3.5-5.1) Chloride Level 104 mmol/L (98-107) Carbon Dioxide Level 30 mmol/L (21-32) Anion Gap 7 (6-14) Blood Urea Nitrogen 23 mg/dL (8-26) Creatinine 0.8 mg/dL (0.7-1.3) Estimated GFR (Cockcroft-Gault) 95.0 Glucose Level 95 mg/dL (70-99) Calcium Level 9.9 mg/dL (8.5-10.1) I have reviewed the following CT scans from yesterday's procedure are reviewed Assessment/Plan pelvic abscess probably associated with some previously placed permanent mesh s/p perc drainage probable ECF David would like to manage things non operatively for a time if possible. He understands that surgery to remove the mesh will very likely be needed to resolve the problem. Would like to manage as outpatient if able. Toward that end will ask for PICC line in anticipation of need for IV antibiotics. Will d/w with Dr Coates Problems: RON GROSS MD Sep 15, 2017 10:51
--- NOTE | 2017-09-15 12:09 | PDOC ---
Provider Note Provider Note pt seen ,consult dictated [id number] Leukocytosis - on Prednisone also Recurrent Intraabdominal abscess S/P IR drainage , G/S GNR,GPC Spontaneous drainage from previous midline scar lower area .Concerning for possible EC fistula Recent Right groin abscess/abdominal wall s/p drain placement, 09/04. E. coli and Pelvic abscess s/p CT guided aspiration,09/04. E. coli so far H/o Ecoli/Bacteroides/H para/Clostridium Ramsom/Strep bovis H/o Ruptured ileo-colic anastomosis, fecal impaction s/p rigid procto, disimpaction, ex lap, resection of ileo-colic anastomosis, end ileostomy, Evans's pouch, [place] 05/05 Crohns disease Continue current empiric IV Vanc, Zosyn and micafungin will f/u C/S and labs MICHAELA CANTU MD Sep 15, 2017 12:09
[2017-09-15] MEDS ORDERED: LIDOCAINE 1% / SOD BICARB 8.4% 20 ML VIAL. IJ ONE ×2 (13:36→13:45)
[2017-09-15] MEDS: VANCOMYCIN 1 GM in IV DEXTROSE 5% 250 ML IV SCH (14:43)
--- NOTE | 2017-09-15 14:57 | RAD ---
Exam: Fluoroscopic and ultrasound guided right percutaneous inserted central venous catheter placement 09/15/2017 2:53 PM .Indication: home IV antibiotics Technique: Informed oral and written consent were obtained. The right upper extremity was prepped and draped using sterile barrier technique. All elements of maximal sterile barrier technique including the use of a cap, mask, sterile gown, sterile gloves, large sterile sheet, appropriate hand hygiene, and 2% chlorhexidine for cutaneous antisepsis (or acceptable alternative antiseptic per current guidelines) were followed for this procedure.. Real-time ultrasound demonstrated a patent right basilic vein which was prepped and draped in usual sterile fashion. 1% lidocaine used for local anesthesia. Using real-time ultrasound guidance the access needle percutaneously punctured the selected right basilic vein. Reference ultrasound images were saved to the medical record. A guidewire was advanced through the needle to the cavoatrial junction, and a peel-away sheath placed. The catheter was cut to length and inserted through the peel-away sheath such that its tip is at the cavoatrial junction. The wire and sheath were removed, and the catheter secured in place, and a sterile dressing was applied. Catheter was found to flush and aspirate normally. No immediate complications are identified. FLUORO TIME: 0.2 DOSE AREA PRODUCT: 0.2 Gycm2 Impression: Ultrasound and fluoroscopically guided placement of a right upper extremity PICC line.
[2017-09-15] MEDS: VANCOMYCIN PER PHARMACY MC PRN (15:16)
--- NOTE | 2017-09-15 16:45 | CONS ---
DATE OF CONSULTATION: 09/15/2017 ROOM: 422. REQUESTING PHYSICIAN: Dr. Orion Garcia. REASON FOR CONSULTATION: Intraabdominal abscess. HISTORY OF PRESENT ILLNESS: A 72-year-old gentleman with history of Crohn's disease, previously had perforated splenic flexure resected with colostomy, followed by completion colectomy and ileocolectomy. When probed, suddenly he developed a leak. He then underwent resection of anastomosis with end ileostomy and Evans's pouch. He has had complications with numerous secondary bacterial intraabdominal abscess since then with cultures showing Haemophilus parainfluenza, Clostridium ramosum, Bacteroides, Strep bovis, E. coli, and yeast. He was recently discharged 2 weeks ago after been treated with zosyn for bacteroides and e coli on September 04 with abdominal drain out. He was doing well but then began to have abdominal discomfort . He also developed spontaneous drainage of purulent material from the lower abdomen scar from previous surgery over the weekend with some relief of abdominal pain. He had a followup CT, which showed intraabdominal fluid collection for which he underwent IR drainage last night. He was empirically started on empiric IV vancomycin, Zosyn, and micafungin. Today, he says he has some nausea, no f/c. He denies any vomiting , sore throat, cough, chestpain, symptoms. He has swelling and some abdominal discomfort in the right lower quadrant, which has improved after the drain placemen. PAST MEDICAL HISTORY: Positive for Crohn's disease with numerous surgeries as above, atrial fibrillation, right flank cellulitis, above-mentioned ruptured ileocolic anastomosis, history of fecal impaction, history of alcohol and tobacco use, history of previous pneumonia, history of COPD, DJD, and anxiety. REVIEW OF SYSTEMS: Otherwise, negative except for above. SOCIAL HISTORY: Smoker and alcohol use. Has supportive family. FAMILY HISTORY: Positive for cancer. ALLERGIES: No known drug allergies. CURRENT MEDICATIONS: Including IV vancomycin, Zosyn, and micafungin, which I initiated yesterday. The patient is also on apixaban, fentanyl, Vicodin, loperamide, metoprolol, Nicoderm, prednisone. PHYSICAL EXAMINATION: VITAL SIGNS: T-max 97.9, pulse 78, respiratory rate 18, blood pressure 100/59, oxygen saturation 96% on room air. GENERAL: Alert and oriented x 3 male, in no acute distress.ambulant in room HEENT: Normocephalic and atraumatic. Pupils are equally reactive, no oral lesions. NECK: Supple. No JVD. LUNGS: Clear to auscultation and percussion bilaterally. CARDIOVASCULAR: S1, S2 present. ABDOMEN: Soft. BS +,numerous scars present,Right lower quadrant stoma with liquid output.Ostomy is without any complications. Drain in RLQ having thick reddish serosanguineous fluid. There is a small opening in the midline lower incision site with purulent drainage. Minimal surrounding erythema. LABORATORY DATA: WBC 14.7, basically unchanged since September 04; hemoglobin 14.1, hematocrit 43.1, platelets 265, neutrophils 9.5. Sodium 141, potassium 4.6, chloride 104, bicarbonate 30, BUN 23, creatinine 0.8, glucose 95, calcium 9.9. Micro :Abdominal abscess,GS gram-negative rods. ID pending. Many tiny gram-positive cocci. Many tiny gram-negative rods suggestive of anaerobes. ID pending at this time. Wbc few, rbc few. IMAGING: Last CT 1. CT-guided drainage of intraabdominal abscess in the right lower quadrant, which appears to be associated with surgical mesh. 2. Aspiration of the recent subcutaneous abscess and application of a pressure dressing as described. 3. New CT finding of open wound in the abdominal midline, which clinically appears to communicate with the abdominal cavity. 4. Findings may represent persistent abscess; however, concerning for enterocutaneous fistula. CT abdomen and pelvis with contrast on 09/10/2017; Impression: 1. Successful drainage of right lower quadrant abdominal wall abscess. 2. Persistent abdominal fluid collection deeper within the anterior aspect of the right pelvis, probably representing other serial abscess. 3. Moderate diffuse bladder wall thickening. LFTs reviewed from last admission. Total bilirubin 0.3, AST 16, ALT 19, alkaline phosphatase 73, total protein 7.2, albumin 2.6, triglycerides 112. IMPRESSION: 1. Leukocytosis, on prednisone. 2. Right groin abscess and pelvic abscesses based on CT scans with history of above-mentioned polymicrobial infection in the past with Escherichia coli and Bacteroides recently. It was tx with zosyn. Pt has recurrent bacterial intraabdominal abscess infections with Haemophilus parainfluenza, Clostridium ramosum, Strep bovis . 3. The patient has spontaneous drainage of the right lower abdomen over the weekend from the previous midline scar concerning for possible enterocutaneous fistula. 4. History of ruptured ileocolic anastomosis as mentioned in H and P. RECOMMENDATIONS: 1. I have instituted IV vancomycin, Zosyn, and micafungin on 09/14/2017. Await ID of gram-negative rods and gram-positive cocci. Obtain lab values in the a.m. Given the history of Strep bovis, needs evaluation for potential colon cancer. 2. There is concern for possible enterocutaneous fistula. 3.continue supportive care. 4.f/u labs and c/s results Thank you for allowing [facility] to participate in the patient's care.. We will follow along with you. MICHAELA CANTU MD DR: SHANA/nts JOB#: [id number] / [id number] TOMAS
[2017-09-15] MEDS: IV NORMAL SALINE 1000ML BAG 1,000 ML IV SCH (17:26)
[2017-09-15] MEDS: LACTOBACILLUS RHAMNOSUS GG 1 CAPSULE. PO SCH (21:03)
[2017-09-15] MEDS: MICAFUNGIN 100 MG in IV DEXTROSE 5% 100 ML IV SCH (23:04)
[2017-09-16] MEDS: VANCOMYCIN 1 GM in IV DEXTROSE 5% 250 ML IV SCH (00:21)
[2017-09-16 00:25] VITALS: BP 97/66
[2017-09-16 03:00] VITALS: BP 83/59
[2017-09-16 03:56] VITALS: BP 90/53
[2017-09-16] MEDS: PIPERACILLIN/TAZO IV Push 3.375 GM VIAL. IVP SCH (06:03)
[2017-09-16 07:00] VITALS: BP 82/51
[2017-09-16 07:25] LABS: BASO % 0 % (0-3); EOS % 2 % (0-3); HEMATOCRIT 37.6 % (39.0-53.0); HEMOGLOBIN 12.5 g/dL (13.0-17.5); LYMPH # 2.9 x10^3/uL (1.0-4.8); LYMPH % 28 % (24-48); MEAN CORPUSCULAR HEMOGLOBIN 32 pg (25-35); MEAN CORPUSCULAR HGB CONC 33 g/dL (31-37); MEAN CORPUSCULAR VOLUME 97 fL (79-100); MONO % 8 % (0-9); NEUT % 62 % (31-73); PLATELET COUNT 224 x10^3/uL (140-400); RED CELL DISTRIBUTION WIDTH 16.6 % (11.5-14.5); WHITE BLOOD COUNT 10.2 x10^3/uL (4.0-11.0)
[2017-09-16 07:33] LABS: ALBUMIN 2.3 g/dL (3.4-5.0); ALBUMIN/GLOBULIN RATIO 0.6 (1.0-1.7); CALCIUM 9.3 mg/dL (8.5-10.1); CREATININE 0.9 mg/dL (0.7-1.3); GFR 82.9; TOTAL BILIRUBIN 0.2 mg/dL (0.2-1.0); TOTAL PROTEIN 6.1 g/dL (6.4-8.2)
[2017-09-16] MEDS: predniSONE 10 MG TABLET PO SCH (09:02)
[2017-09-16] MEDS: APIXABAN 5 MG TABLET. PO SCH (09:02)
[2017-09-16] MEDS: LACTOBACILLUS RHAMNOSUS GG 1 CAPSULE. PO SCH (09:02)
[2017-09-16] MEDS: METOPROLOL TART IMMED RELEASE 25 MG TABLET. PO SCH ×2 (09:03→09:09)
[2017-09-16] MEDS: LOPERAMIDE 2 MG CAPSULE PO SCH (09:03)
[2017-09-16] MEDS: NICOTINE 21MG PATCH. TD SCH (09:04)
[2017-09-16 11:00] VITALS: BP 104/64
--- NOTE | 2017-09-16 11:19 | PDOC ---
SURGICAL PROGRESS NOTE Subjective no new complaints has a PICC anxious to get home Vital Signs Vital Signs Date Time Temp Pulse Resp B/P (MAP) Pulse Ox O2 Delivery O2 Flow Rate FiO2 09/16/17 09:09 78 90/53 09/16/17 07:00 97.4 18 99 Room Air 97.4 PATIENT HAS A YANCEY: No Abdomen: Soft, Other (minimal drainage from open wound) Labs Laboratory Tests Test 09/16/17 06:00 White Blood Count 10.2 x10^3/uL (4.0-11.0) Red Blood Count 3.90 x10^6/uL (4.30-5.70) Hemoglobin 12.5 g/dL (13.0-17.5) Hematocrit 37.6 % (39.0-53.0) Mean Corpuscular Volume 97 fL (79-100) Mean Corpuscular Hemoglobin 32 pg (25-35) Mean Corpuscular Hemoglobin Concent 33 g/dL (31-37) Red Cell Distribution Width 16.6 % (11.5-14.5) Platelet Count 224 x10^3/uL (140-400) Neutrophils (%) (Auto) 62 % (31-73) Lymphocytes (%) (Auto) 28 % (24-48) Monocytes (%) (Auto) 8 % (0-9) Eosinophils (%) (Auto) 2 % (0-3) Basophils (%) (Auto) 0 % (0-3) Neutrophils # (Auto) 6.4 x10^3uL (1.8-7.7) Lymphocytes # (Auto) 2.9 x10^3/uL (1.0-4.8) Monocytes # (Auto) 0.8 x10^3/uL (0.0-1.1) Eosinophils # (Auto) 0.2 x10^3/uL (0.0-0.7) Basophils # (Auto) 0.0 x10^3/uL (0.0-0.2) Sodium Level 138 mmol/L (136-145) Potassium Level 4.0 mmol/L (3.5-5.1) Chloride Level 103 mmol/L (98-107) Carbon Dioxide Level 30 mmol/L (21-32) Anion Gap 5 (6-14) Blood Urea Nitrogen 15 mg/dL (8-26) Creatinine 0.9 mg/dL (0.7-1.3) Estimated GFR (Cockcroft-Gault) 82.9 BUN/Creatinine Ratio 17 (6-20) Glucose Level 83 mg/dL (70-99) Calcium Level 9.3 mg/dL (8.5-10.1) Total Bilirubin 0.2 mg/dL (0.2-1.0) Aspartate Amino Transf (AST/SGOT) 22 U/L (15-37) Alanine Aminotransferase (ALT/SGPT) 26 U/L (16-63) Alkaline Phosphatase 65 U/L (46-116) Total Protein 6.1 g/dL (6.4-8.2) Albumin 2.3 g/dL (3.4-5.0) Albumin/Globulin Ratio 0.6 (1.0-1.7) Laboratory Tests Test 09/16/17 06:00 White Blood Count 10.2 x10^3/uL (4.0-11.0) Red Blood Count 3.90 x10^6/uL (4.30-5.70) Hemoglobin 12.5 g/dL (13.0-17.5) Hematocrit 37.6 % (39.0-53.0) Mean Corpuscular Volume 97 fL (79-100) Mean Corpuscular Hemoglobin 32 pg (25-35) Mean Corpuscular Hemoglobin Concent 33 g/dL (31-37) Red Cell Distribution Width 16.6 % (11.5-14.5) Platelet Count 224 x10^3/uL (140-400) Neutrophils (%) (Auto) 62 % (31-73) Lymphocytes (%) (Auto) 28 % (24-48) Monocytes (%) (Auto) 8 % (0-9) Eosinophils (%) (Auto) 2 % (0-3) Basophils (%) (Auto) 0 % (0-3) Neutrophils # (Auto) 6.4 x10^3uL (1.8-7.7) Lymphocytes # (Auto) 2.9 x10^3/uL (1.0-4.8) Monocytes # (Auto) 0.8 x10^3/uL (0.0-1.1) Eosinophils # (Auto) 0.2 x10^3/uL (0.0-0.7) Basophils # (Auto) 0.0 x10^3/uL (0.0-0.2) Sodium Level 138 mmol/L (136-145) Potassium Level 4.0 mmol/L (3.5-5.1) Chloride Level 103 mmol/L (98-107) Carbon Dioxide Level 30 mmol/L (21-32) Anion Gap 5 (6-14) Blood Urea Nitrogen 15 mg/dL (8-26) Creatinine 0.9 mg/dL (0.7-1.3) Estimated GFR (Cockcroft-Gault) 82.9 BUN/Creatinine Ratio 17 (6-20) Glucose Level 83 mg/dL (70-99) Calcium Level 9.3 mg/dL (8.5-10.1) Total Bilirubin 0.2 mg/dL (0.2-1.0) Aspartate Amino Transf (AST/SGOT) 22 U/L (15-37) Alanine Aminotransferase (ALT/SGPT) 26 U/L (16-63) Alkaline Phosphatase 65 U/L (46-116) Total Protein 6.1 g/dL (6.4-8.2) Albumin 2.3 g/dL (3.4-5.0) Albumin/Globulin Ratio 0.6 (1.0-1.7) I have reviewed the following cultures reviewed Assessment/Plan pelvic abscess 2/2 mesh, s/p perc drainage will d/w Dr Coates Problems: RON GROSS MD Sep 16, 2017 11:19
--- NOTE | 2017-09-16 12:16 | PDOC ---
Infectious Disease Note Subjective Subjective pt feels better, no f/c/n/v some abdo pain but improving eager to go home has picc line in place ROS ROS GEN: Denies fevers, chills, sweats HEENT: Denies blurred vision, sore throat CV: Denies chest pain RESP: Denies shortness of air, cough GI: Denies n/v,no change in ostomy bag NEURO: Denies confusion, dizziness MSK: Denies weakness, joint pain/swelling Vital Sign Vital Signs Vital Signs Date Time Temp Pulse Resp B/P (MAP) Pulse Ox O2 Delivery O2 Flow Rate FiO2 09/16/17 11:00 98.7 71 18 104/64 (77) 99 Room Air 98.7 Physical Exam PHYSICAL EXAM GENERAL: Alert and oriented x 3 male, in no acute distress.ambulant in room HEENT: Normocephalic and atraumatic. Pupils are equally reactive, no oral lesions. NECK: Supple. No JVD. LUNGS: Clear to auscultation and percussion bilaterally. CARDIOVASCULAR: S1, S2 present. ABDOMEN: Soft. BS +,numerous scars present,Right lower quadrant stoma with liquid output.Ostomy is without any complications. Drain in RLQ having thick reddish serosanguineous fluid. There is a small opening in the midline lower previous scar site with purulent drainage. Minimal surrounding erythema. Labs Lab Laboratory Tests Test 09/16/17 06:00 White Blood Count 10.2 x10^3/uL (4.0-11.0) Red Blood Count 3.90 x10^6/uL (4.30-5.70) Hemoglobin 12.5 g/dL (13.0-17.5) Hematocrit 37.6 % (39.0-53.0) Mean Corpuscular Volume 97 fL (79-100) Mean Corpuscular Hemoglobin 32 pg (25-35) Mean Corpuscular Hemoglobin Concent 33 g/dL (31-37) Red Cell Distribution Width 16.6 % (11.5-14.5) Platelet Count 224 x10^3/uL (140-400) Neutrophils (%) (Auto) 62 % (31-73) Lymphocytes (%) (Auto) 28 % (24-48) Monocytes (%) (Auto) 8 % (0-9) Eosinophils (%) (Auto) 2 % (0-3) Basophils (%) (Auto) 0 % (0-3) Neutrophils # (Auto) 6.4 x10^3uL (1.8-7.7) Lymphocytes # (Auto) 2.9 x10^3/uL (1.0-4.8) Monocytes # (Auto) 0.8 x10^3/uL (0.0-1.1) Eosinophils # (Auto) 0.2 x10^3/uL (0.0-0.7) Basophils # (Auto) 0.0 x10^3/uL (0.0-0.2) Sodium Level 138 mmol/L (136-145) Potassium Level 4.0 mmol/L (3.5-5.1) Chloride Level 103 mmol/L (98-107) Carbon Dioxide Level 30 mmol/L (21-32) Anion Gap 5 (6-14) Blood Urea Nitrogen 15 mg/dL (8-26) Creatinine 0.9 mg/dL (0.7-1.3) Estimated GFR (Cockcroft-Gault) 82.9 BUN/Creatinine Ratio 17 (6-20) Glucose Level 83 mg/dL (70-99) Calcium Level 9.3 mg/dL (8.5-10.1) Total Bilirubin 0.2 mg/dL (0.2-1.0) Aspartate Amino Transf (AST/SGOT) 22 U/L (15-37) Alanine Aminotransferase (ALT/SGPT) 26 U/L (16-63) Alkaline Phosphatase 65 U/L (46-116) Total Protein 6.1 g/dL (6.4-8.2) Albumin 2.3 g/dL (3.4-5.0) Albumin/Globulin Ratio 0.6 (1.0-1.7) Micro Abscess C/S E coli kiko noted SPEC #: [id number] JESUS: 09/14/17 STATUS: RES REQ #: [id number] RECD: 09/14/17-[address]: RON GROSS MD SOURCE: ABD FLUID ENTR: 09/14/[address] [facility] [address]: RYAN STEVENS SPDESC: BRETT VERDUGO MD ORDERED: ANAER-AERO CULT Procedure Result ANAEROBIC-AEROBIC CULTURE PENDING ANAEROBIC RES 1 PENDING AEROBIC CULT Final Final report AEROBIC RES 1 Final Escherichia coli Moderate growth ANTIMICROBIAL SUSCEPTIBILITY Final Comment S = Susceptible; I = Intermediate; R = Resistant P = Positive; N = Negative MICS are expressed in micrograms per mL Antibiotic RSLT#1 RSLT#2 RSLT#3 RSLT#4 Amoxicillin/Clavulanic Acid S Ampicillin S Cefepime S Ceftriaxone S Cefuroxime S Ciprofloxacin S Ertapenem S Gentamicin S Imipenem S Levofloxacin S Piperacillin S Tetracycline S Tobramycin S Trimethoprim/Sulfa S Performed at: [address] [id number] Operations Leader: Preethi Nguyen MD, Phone: [phone] Objective Assessment 1. Leukocytosis, on prednisone. 2. Right groin abscess and pelvic abscesses with ecoli on recent c/s 3. 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 It was tx with zosyn. 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 History of ruptured ileocolic anastomosis Plan Plan of Care Pt is been dc hermin[facility] e D/W Dr Gross, plans are to possible remove mesh in 2 weeks DC Zosyn,Micafungin and Zyvox Start ertapenem 1gm IV QD Duration will be atleast 10-14 days on clinical response and further surgery weekly labs cbc,cmp while on antibiotics, picc line management c diff education done f/u with [facility] in 10-14 days d/w pt at length, voices understanding time spent 25 min MICHAELA CANTU MD Sep 16, 2017 12:16
[2017-09-16] MEDS ORDERED: ERTAPENEM 1GM IVPB FOR OMNI 50 ML IV ONE ×2 (12:30→13:00)
[2017-09-16] MEDS: IV NORMAL SALINE 1000ML BAG 1,000 ML IV SCH (13:06)
--- NOTE | 2017-09-16 13:29 | PDOC3 ---
Discharge Summary Visit Information Date of Admission: Sep 14, 2017 Date of Discharge: Sep 16, 2017 Admitting Diagnosis Comment: pelvic abscess Final Diagnosis pelvic abscess Brief Hospital Course Allergies Allergies Coded Allergies Type Severity Reaction Last Updated Verified No Known Drug Allergies 04/29/17 No Vital Signs Vital Signs Date Time Temp Pulse Resp B/P (MAP) Pulse Ox O2 Delivery O2 Flow Rate FiO2 09/16/17 11:00 98.7 71 18 104/64 (77) 99 Room Air 98.7 Lab Results Laboratory Tests Test 09/16/17 06:00 White Blood Count 10.2 x10^3/uL (4.0-11.0) Red Blood Count 3.90 x10^6/uL (4.30-5.70) Hemoglobin 12.5 g/dL (13.0-17.5) Hematocrit 37.6 % (39.0-53.0) Mean Corpuscular Volume 97 fL (79-100) Mean Corpuscular Hemoglobin 32 pg (25-35) Mean Corpuscular Hemoglobin Concent 33 g/dL (31-37) Red Cell Distribution Width 16.6 % (11.5-14.5) Platelet Count 224 x10^3/uL (140-400) Neutrophils (%) (Auto) 62 % (31-73) Lymphocytes (%) (Auto) 28 % (24-48) Monocytes (%) (Auto) 8 % (0-9) Eosinophils (%) (Auto) 2 % (0-3) Basophils (%) (Auto) 0 % (0-3) Neutrophils # (Auto) 6.4 x10^3uL (1.8-7.7) Lymphocytes # (Auto) 2.9 x10^3/uL (1.0-4.8) Monocytes # (Auto) 0.8 x10^3/uL (0.0-1.1) Eosinophils # (Auto) 0.2 x10^3/uL (0.0-0.7) Basophils # (Auto) 0.0 x10^3/uL (0.0-0.2) Sodium Level 138 mmol/L (136-145) Potassium Level 4.0 mmol/L (3.5-5.1) Chloride Level 103 mmol/L (98-107) Carbon Dioxide Level 30 mmol/L (21-32) Anion Gap 5 (6-14) Blood Urea Nitrogen 15 mg/dL (8-26) Creatinine 0.9 mg/dL (0.7-1.3) Estimated GFR (Cockcroft-Gault) 82.9 BUN/Creatinine Ratio 17 (6-20) Glucose Level 83 mg/dL (70-99) Calcium Level 9.3 mg/dL (8.5-10.1) Total Bilirubin 0.2 mg/dL (0.2-1.0) Aspartate Amino Transf (AST/SGOT) 22 U/L (15-37) Alanine Aminotransferase (ALT/SGPT) 26 U/L (16-63) Alkaline Phosphatase 65 U/L (46-116) Total Protein 6.1 g/dL (6.4-8.2) Albumin 2.3 g/dL (3.4-5.0) Albumin/Globulin Ratio 0.6 (1.0-1.7) Laboratory Tests Test 09/16/17 06:00 White Blood Count 10.2 x10^3/uL (4.0-11.0) Red Blood Count 3.90 x10^6/uL (4.30-5.70) Hemoglobin 12.5 g/dL (13.0-17.5) Hematocrit 37.6 % (39.0-53.0) Mean Corpuscular Volume 97 fL (79-100) Mean Corpuscular Hemoglobin 32 pg (25-35) Mean Corpuscular Hemoglobin Concent 33 g/dL (31-37) Red Cell Distribution Width 16.6 % (11.5-14.5) Platelet Count 224 x10^3/uL (140-400) Neutrophils (%) (Auto) 62 % (31-73) Lymphocytes (%) (Auto) 28 % (24-48) Monocytes (%) (Auto) 8 % (0-9) Eosinophils (%) (Auto) 2 % (0-3) Basophils (%) (Auto) 0 % (0-3) Neutrophils # (Auto) 6.4 x10^3uL (1.8-7.7) Lymphocytes # (Auto) 2.9 x10^3/uL (1.0-4.8) Monocytes # (Auto) 0.8 x10^3/uL (0.0-1.1) Eosinophils # (Auto) 0.2 x10^3/uL (0.0-0.7) Basophils # (Auto) 0.0 x10^3/uL (0.0-0.2) Sodium Level 138 mmol/L (136-145) Potassium Level 4.0 mmol/L (3.5-5.1) Chloride Level 103 mmol/L (98-107) Carbon Dioxide Level 30 mmol/L (21-32) Anion Gap 5 (6-14) Blood Urea Nitrogen 15 mg/dL (8-26) Creatinine 0.9 mg/dL (0.7-1.3) Estimated GFR (Cockcroft-Gault) 82.9 BUN/Creatinine Ratio 17 (6-20) Glucose Level 83 mg/dL (70-99) Calcium Level 9.3 mg/dL (8.5-10.1) Total Bilirubin 0.2 mg/dL (0.2-1.0) Aspartate Amino Transf (AST/SGOT) 22 U/L (15-37) Alanine Aminotransferase (ALT/SGPT) 26 U/L (16-63) Alkaline Phosphatase 65 U/L (46-116) Total Protein 6.1 g/dL (6.4-8.2) Albumin 2.3 g/dL (3.4-5.0) Albumin/Globulin Ratio 0.6 (1.0-1.7) Brief Hospital Course Mr. Clarke is a 72 old male who presented with pelvic abscess. He underwent percutaneous drainage. He will be followed as an outpatient while on IV abx Discharge Information Condition at Discharge: Improved Follow Up: As Needed (10 days) Disposition/Orders: D/C to Home w/ HH Scheduled Loperamide Hcl (Anti-Diarrheal), 4 MG PO BID, (Reported) Melatonin (Melatonin), 1 TAB PO QHS, (Reported) Metoprolol Tartrate (Metoprolol Tartrate), 0.5 TAB PO BID, (Reported) Prednisone (Prednisone), 10 MG PO DAILY, (Reported) Scheduled PRN Hydrocodone Bit/Acetaminophen (Hydrocodone-Apap 7.5-325/15 Soln ), 15 ML NG PRN Q4HRS PRN for PAIN [Nicotine 14MG], 1 PATCH TD PRN DAILY PRN for SMOKING CESSATION Miscellaneous Medications Apixaban (Eliquis), 5 MG PO, (Reported) Discontinued Medications Glucosam/Chond/Hyalu/Cf Borate (Move Free Joint Health Tablet), 1 EACH PO DAILY, (Reported) Patient Instructions Patient Instructions may shower RON GROSS MD Sep 16, 2017 13:29
[2017-09-16] MEDS: HYDROcodon/APAP 7.5/325MG ORAL 15 ML SOLUTION NG PRN ×2 (14:15→17:26)
[2017-09-16 15:00] VITALS: BP 101/65
== END 2017-09-16 17:20 | disposition home or self-care (01) | DRG 907 ==
LOC: 4 NORTH 05:57
PROVIDERS: ADMIT Surgery; ATTEND Surgery
PROC: 0W9J3ZX Drainage of Pelvic Cavity, Percutaneous Approach, Diagnostic (ICD-10-PCS; principal; 2017-09-14)
PROC: 0J983ZZ Drainage of Abdomen Subcutaneous Tissue and Fascia, Percutaneous Approach (ICD-10-PCS; 2017-09-14)
PROC: 02HV33Z Insertion of Infusion Device into Superior Vena Cava, Percutaneous Approach (ICD-10-PCS; 2017-09-15)
PROC: B5181ZA Fluoroscopy of Superior Vena Cava using Low Osmolar Contrast, Guidance (ICD-10-PCS; 2017-09-15)
PROC: B548ZZA Ultrasonography of Superior Vena Cava, Guidance (ICD-10-PCS; 2017-09-15)
DX: T85.79XA Infection and inflammatory reaction due to other internal prosthetic devices, implants and grafts, initial encounter (principal); K65.1 Peritoneal abscess; E43 Unspecified severe protein-calorie malnutrition; I48.91 Unspecified atrial fibrillation; K50.10 Crohn's disease of large intestine without complications; R18.8 Other ascites; I11.0 Hypertensive heart disease with heart failure; I50.9 Heart failure, unspecified; L02.214 Cutaneous abscess of groin; M19.90 Unspecified osteoarthritis, unspecified site; F41.9 Anxiety disorder, unspecified; F17.210 Nicotine dependence, cigarettes, uncomplicated; Y83.8 Other surgical procedures as the cause of abnormal reaction of the patient, or of later complication, without mention of misadventure at the time of the procedure; F10.21 Alcohol dependence, in remission; J44.9 Chronic obstructive pulmonary disease, unspecified; Z90.49 Acquired absence of other specified parts of digestive tract; Z87.01 Personal history of pneumonia (recurrent); Z93.3 Colostomy status; Z80.9 Family history of malignant neoplasm, unspecified; Y92.89 Other specified places as the place of occurrence of the external cause
CPT/HCPCS: 36415; 36569; 49406; 76937; 77001; 80048; 80053; 80202; 85025; 85610; 87040; 87071; 87075; 87102; 87205; 99152; 99153; A4215; C1729; C1751; C1892; C1894; J1335; J1644; J2248; J2250; J2543; J3010; J3370; J7030; J7512; Q9967

== ENCOUNTER → 2017-10-05 | Outpatient (CLI) | payer MEDICARE ==
[2017-09-16 15:00] VITALS: BP 101/65
[~2017-10-05] MED LIST changes: +CONTRAST GIVEN MC PRN; +DIPH25CA58 PO; +ERTA1VIA IJ; +IOHEXOL 240 MG/ML 50ML VIAL. PO ONE; +IOHEXOL 300 MG/ML 100ML VIAL. IV ONE
--- NOTE | 2017-10-05 11:38 | RAD ---
CT abdomen and pelvis with contrast Indication: Evaluation for pelvic abscess. Technique: CT abdomen and pelvis with 75 mL of Omnipaque 300 with multiplanar reformats. Comparison: Previous study from 09/10/2017 Findings: Heart is normal in size. No pericardial or pleural effusion. Subsegmental atelectasis in the lung bases. Liver is normal in morphology without focal hepatic lesion. Spleen is within normal limits. No gallstones. No pericholecystic fluid or gallbladder wall thickening. Pancreas is within normal limits. Adrenal glands show no masses. 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 No hydronephrosis or suspicious renal lesion. No retroperitoneal or pelvic adenopathy. No bowel obstruction. Right lower quadrant ostomy. Pigtail catheter is seen in the right lower quadrant. There is interval resolution of previously seen right lower quadrant fluid collection. No new abdominal or pelvic fluid collections. Bladder show no focal lesion. Prostate and seminal vesicles show no mass lesion. No angle adenopathy. Diffuse atherosclerotic disease of the abdominal aorta and bilateral iliac arteries. No suspicious bony lesion. Lower anterior pelvic wall mesh. Impression: Resolution of previously seen right lower quadrant abscess. No new abscess. PQRS Compliance Statement: One or more of the following individualized dose reduction techniques were utilized for this examination: 1. Automated exposure control 2. Adjustment of the mA and/or kV according to patient size 3. Use of iterative reconstruction technique
== END | disposition home or self-care (01) ==
LOC: CT 09:19
PROVIDERS: ATTEND Surgery
DX: K65.1 Peritoneal abscess (principal); I70.0 Atherosclerosis of aorta
CPT/HCPCS: 74177

== ENCOUNTER 2017-10-22 06:44 | Outpatient (CLI) | payer MEDICARE ==
[~2017-10-22] VITALS: Ht 185.4 cm; Wt 70.3 kg
[~2017-10-22 06:44] MED LIST changes: -CONTRAST GIVEN MC PRN; -DIPH25CA58 PO; -ERTA1VIA IJ; -IOHEXOL 240 MG/ML 50ML VIAL. PO ONE; -IOHEXOL 300 MG/ML 100ML VIAL. IV ONE
[2017-10-22] MEDS ORDERED: DIPH25CA58 PO (07:41)
[2017-10-22] MEDS ORDERED: ERTA1VIA IJ (07:58)
[2017-10-22] MEDS ORDERED: IOHEXOL 240 MG/ML 50ML VIAL. ONE (08:06)
[2017-10-22 08:14] VITALS: BP 106/67
[2017-10-22] MEDS ORDERED: IOHEXOL 240 MG/ML 50ML VIAL. IJ ONE (08:15)
[2017-10-22] MEDS ORDERED: CONTRAST GIVEN MC PRN (08:30)
--- NOTE | 2017-10-22 11:01 | RAD ---
CT of the pelvis without intravenous contrast. 10/22/2017 ter Indication: Evaluate pelvic abscess. Evaluate for fistula. Comparison study: CT of the abdomen pelvis October 05, 2017 Discussion: CT imaging of the pelvis performed both before and after the administration of IV 10 cc of intravenous contrast through a right lower quadrant drainage catheter. Initial imaging demonstrates a grossly stable appearance of the right lower quadrant drainage catheter just deep to the anterior abdominal wall. No significant residual abscess cavity is appreciated on noncontrast enhanced imaging. Following the injection of 10 cc of contrast in the very small residual cavity is seen in the right lower quadrant, immediately deep to it appears to be a surgical mesh is seen. There is a fistulous connection extending to the rectal stump. Contrast is noted within the rectal stump. The catheter was then reconnected to LASHAUN bulb suction and a new sterile dressing applied. No immediate complications were identified. Impression: Small residual cavity in the right lower quadrant following the administration of contrast, as described above, with fistulous connection to the rectal stump. PQRS Compliance Statement: One or more of the following individualized dose reduction techniques were utilized for this examination: 1. Automated exposure control 2. Adjustment of the mA and/or kV according to patient size 3. Use of iterative reconstruction technique
== END 2017-10-22 09:09 | disposition home or self-care (01) ==
LOC: INTRAD 06:44
PROVIDERS: ATTEND Surgery
DX: K65.1 Peritoneal abscess (principal); I48.91 Unspecified atrial fibrillation; J44.9 Chronic obstructive pulmonary disease, unspecified; F41.9 Anxiety disorder, unspecified; Z72.0 Tobacco use; Z87.442 Personal history of urinary calculi
CPT/HCPCS: 49424; Q9966

== ENCOUNTER 2018-01-08 11:02 | Emergency (ER) | payer MEDICARE | END 2018-01-08 12:19 | disposition left against medical advice (07) | LOC: ER 12:19 | DX: M79.645 Pain in left finger(s) (principal); Z53.21 Procedure and treatment not carried out due to patient leaving prior to being seen by health care provider ==

== ENCOUNTER 2018-01-12 10:40 | Emergency (ER) | payer MEDICARE ==
[2018-01-12] MEDS: LIDOCAINE 1% PF 2 ML VIAL. INJ (11:30)
[2018-01-12] MEDS: BUPIVACAINE 0.5% 50 ML VIAL. SQ (11:30)
== END 2018-01-12 13:24 | disposition home or self-care (01) ==
LOC: ER 10:40
DX: L02.512 Cutaneous abscess of left hand (principal); F12.10 Cannabis abuse, uncomplicated; K50.90 Crohn's disease, unspecified, without complications; Z88.4 Allergy status to anesthetic agent; Z91.041 Radiographic dye allergy status; Z91.09 Other allergy status, other than to drugs and biological substances
CPT/HCPCS: 10060; 87071; 87075; 87186; 87205; 99283-25; 99284-25; J3490

== ENCOUNTER → 2018-07-20 | Outpatient (CLI) | payer MEDICARE ==
[2018-07-09 10:59] VITALS: BP 96/60
[~2018-07-20] MED LIST changes: +AMOX1TAB61 PO; +APIX2.5T PO; +DIPH25CA58 PO; +ERTA1VIA IJ; +HYDR-971 PO; +LOPE2CAP88 PO; +MULT1TAB90 PO; +PRED20TA PO; +RANI150C PO; +RANI300T PO; +SULF1TAB24 PO; +TAMS0.4C97 PO; +VITA1TAB19 PO
--- NOTE | 2018-07-21 10:59 | SLEEP ---
DATE OF STUDY: 07/20/2018 ATTENDING PHYSICIAN: Dr. Gonzales. The patient is 72 years old who weighs 170 pounds with a BMI of 22.4. The patient underwent home sleep study performed by [facility]. Total recording time was 674 minutes. During the night study, the patient had 182 obstructive apneas, no central apneas. There were 377 mixed apneas and 7 hypopneas. The patient's apnea hypopnea index was 50 per hour, supine index 53 per hour. Nocturnal oximetry study revealed an average oxygen saturation 91% with the lowest of 75%. 12 minutes were spent in oxygen saturation of less than 85% and 160 minutes were spent in oxygen saturation of less than 90%. Mean heart rate was 80 beats per minute. IMPRESSION: 1. Severe sleep apnea-hypopnea syndrome at an AHI of 50 per hour. 2. Nocturnal hypoxia secondary to obstructive sleep apnea. RECOMMENDATIONS: 1. The patient would benefit from in-lab CPAP titration study. 2. Once optimum CPAP pressure is achieved, then follow up in 4-6 weeks to assess compliance with CPAP and to document clinical improvement. 3. Avoid SHIPBOARD INTELLIGENCE ANALYST depressants. 4. Caution regarding driving until symptoms of sleep apnea resolve with the above recommendations. KEVIN LORA MD DR: ANA MARÍA/marco JOB#: [id number] / [id number] NAILA Ramires MD
== END | disposition home or self-care (01) ==
LOC: RT 08:26
PROVIDERS: ATTEND Internal Medicine Pulmonary Disease
DX: G47.33 Obstructive sleep apnea (adult) (pediatric) (principal); G47.34 Idiopathic sleep related nonobstructive alveolar hypoventilation; I13.0 Hypertensive heart and chronic kidney disease with heart failure and stage 1 through stage 4 chronic kidney disease, or unspecified chronic kidney disease; E11.22 Type 2 diabetes mellitus with diabetic chronic kidney disease; I50.9 Heart failure, unspecified; N18.9 Chronic kidney disease, unspecified; Z87.440 Personal history of urinary (tract) infections; Z86.19 Personal history of other infectious and parasitic diseases; Z87.891 Personal history of nicotine dependence; Z90.49 Acquired absence of other specified parts of digestive tract; Z86.2 Personal history of diseases of the blood and blood-forming organs and certain disorders involving the immune mechanism; Z88.4 Allergy status to anesthetic agent; Z82.49 Family history of ischemic heart disease and other diseases of the circulatory system; Z80.0 Family history of malignant neoplasm of digestive organs; Z80.8 Family history of malignant neoplasm of other organs or systems
CPT/HCPCS: G0399

== ENCOUNTER → 2018-08-04 | Outpatient (CLI) | payer MEDICARE ==
[2018-07-09 10:59] VITALS: BP 96/60
--- NOTE | 2018-08-05 10:53 | SLEEP ---
DATE OF STUDY: ATTENDING PHYSICIAN: Dr. Penaloza. REFERRING PHYSICIAN: Dr. Gonzales. The patient is a 73-year-old who weighs 170 pounds with a BMI of 23. The patient's Harrington score was 9. The patient returned to sleep lab for a CPAP titration study. During the night study, the patient spent 389 minutes in bed and slept for 228 minutes with a sleep efficiency of 59%, which is low. Sleep latency was 34 minutes with a REM latency of 221 minutes. Overall, sleep architecture showed increased stage 1 sleep, reduced stage 2 sleep, normal slow wave and reduced REM sleep which is 5% of the total sleep time. EKG monitoring revealed normal sinus rhythm. Occasional tachycardia observed. Average heart rate was 77 beats per minute. PLMS were seen at index of 93 per hour and 16 per hour caused EEG arousals. The patient was started on CPAP at 5 cm water and titrated up to 14 cm water. At the final pressure, the patient slept for 114 minutes. The patient had supine as well as REM sleep. The patient's AHI was reduced to 2 per hour. Oxygen saturation remained above 89%. The patient used a large size full face mask. IMPRESSION: 1. History of severe sleep apnea at an AHI of 50 per hour diagnosed by previous home sleep study. 2. 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 RECOMMENDATIONS: 1. CPAP at 14 cm water completely eliminated the patient's sleep apnea, should be used on a nightly basis. 2. Follow up in 4-6 weeks to assess compliance with CPAP and to document clinical improvement. 3. Avoid CONSULTATIVE SALES ASSOCIATE depressants. 4. Cautioned regarding driving until symptoms of sleep apnea is resolved with the use of CPAP. 5. The patient used a large size full face mask. KEVIN LORA MD DR: ANA MARÍA/marco JOB#: [id number] / [id number] DON Martinez MD, SABATO MD
== END | disposition home or self-care (01) ==
LOC: RT 19:01
PROVIDERS: ATTEND Internal Medicine Pulmonary Disease
DX: G47.33 Obstructive sleep apnea (adult) (pediatric) (principal); G47.61 Periodic limb movement disorder; I13.0 Hypertensive heart and chronic kidney disease with heart failure and stage 1 through stage 4 chronic kidney disease, or unspecified chronic kidney disease; E11.22 Type 2 diabetes mellitus with diabetic chronic kidney disease; I50.9 Heart failure, unspecified; N18.9 Chronic kidney disease, unspecified; E87.5 Hyperkalemia; J44.9 Chronic obstructive pulmonary disease, unspecified; I48.2 Chronic atrial fibrillation; Z86.2 Personal history of diseases of the blood and blood-forming organs and certain disorders involving the immune mechanism; Z86.73 Personal history of transient ischemic attack (TIA), and cerebral infarction without residual deficits; Z87.442 Personal history of urinary calculi; Z87.891 Personal history of nicotine dependence; Z86.19 Personal history of other infectious and parasitic diseases; Z90.49 Acquired absence of other specified parts of digestive tract; Z82.49 Family history of ischemic heart disease and other diseases of the circulatory system; Z80.8 Family history of malignant neoplasm of other organs or systems; Z80.0 Family history of malignant neoplasm of digestive organs
CPT/HCPCS: 95811